=== PATIENT | male | born 1940 | race Caucasian/White ===

== ENCOUNTER 2022-12-12 10:30 | Outpatient (OUT) | payer MEDICARE, SELFPAY ==
[2022-12-12 11:02] LABS: Bilirubin Urine NEGATIVE (NEGATIVE); Blood Urine TRACE-I (NEGATIVE); Clarity Urine CLEAR (CLEAR); Color Urine LT. YELLOW (YELLOW); Glucose Urine UA NEGATIVE (NEGATIVE); Ketones Urine NEGATIVE (NEGATIVE); Leukocyte Esterase Urine NEGATIVE (NEGATIVE); Nitrite Urine NEGATIVE (NEGATIVE); Protein Urine NEGATIVE (NEG/TRACE); Specific Gravity Urine <=1.005 (1.005-1.025); Urobilinogen Urine 0.2 EU/dL (0.2-1.0); pH Urine 5.5 (5.0-9.0)
[2022-12-12 11:09] LABS: Bacteria Urine NONE SEEN #/HPF (NONE SEEN); Cast Seen? NONE SEEN #/LPF (NONE SEEN); Crystals Seen? None Seen #/HPF (None Seen); Mucus Urine NONE SEEN (NONE SEEN); RBC Urine 0-2 #/HPF (0-2); Squamous Epithelial Cell Urine NONE SEEN #/LPF (NONE/RARE); WBC Urine NONE SEEN #/HPF (NONE SEEN)
== END 2022-12-12 10:31 ==
LOC: LAB 10:34
PROVIDERS: PCP Family Medicine; Visit Provider Family Medicine
DX: N39.0 Urinary tract infection, site not specified (principal)
CPT/HCPCS: 81001; 87086

== ENCOUNTER 2023-02-17 12:58 | Outpatient (OUT) | payer MEDICARE, SELFPAY ==
[2023-02-17 13:47] LABS: Basophils Absolute Auto 0.1 10^3/uL (0.0-0.1); Basophils Percent Auto 0.5 % (0.2-2.0); Eosinophils Absolute Auto 0.1 10^3/uL (0.0-0.7); Eosinophils Percent Auto 1.2 % (0.9-7.0); Hematocrit 40.7 % (42.0-54.0); Hemoglobin 14.4 g/dL (14.0-18.0); Immature Granulocytes Abs Auto 0.06 10^3/uL (0.00-0.03); Immature Granulocytes Pct Auto 0.6 % (0.0-0.5); Lymphocytes Absolute Auto 1.6 10^3/uL (1.2-3.8); Mean Corpuscular HGB Conc 35.4 g/dL (29.9-35.2); Mean Corpuscular Hemoglobin 32.9 pg (25.9-34.0); Mean Corpuscular Volume 92.9 fL (80.0-94.0); Mean Platelet Volume 11.7 fL (9.5-13.5); Monocytes Absolute Auto 0.5 10^3/uL (0.3-0.8); Monocytes Percent Auto 4.6 % (1.7-12.0); Neutrophils Absolute Auto 7.6 10^3/uL (1.4-6.5); Neutrophils Percent Auto 77.1 % (43.0-75.0); Platelet Count 244 10^3/uL (150-450); Red Blood Count 4.38 10^6/uL (4.70-6.10); Red Cell Distribution Width 14.4 % (11.0-15.0); White Blood Count 9.9 10^3/uL (4.0-11.0)
[2023-02-17 13:50] LABS: Alanine Aminotransferase 41 U/L (16-63); Albumin Globulin Ratio 0.9; Albumin Level 3.5 g/dL (3.4-5.0); Alkaline Phosphatase 128 U/L (46-116); Anion Gap 12.4; Aspartate Amino Transferase 45 U/L (15-37); Bilirubin Total 0.6 mg/dL (0.2-1.0); Calcium 8.5 mg/dL (8.5-10.1); Carbon Dioxide 26.7 mmol/L (21.0-32.0); Chloride 99 mmol/L (98-107); Estimated GFR (African America >60 (>=60); Estimated GFR (Non-African Ame 58 (>=60); Globulin 3.7 g/dL; Glucose 208 mg/dL (74-106); Sodium 133 mmol/L (136-145); Total Protein 7.2 g/dL (6.4-8.2)
[2023-02-17 13:51] LABS: Potassium 5.1 mmol/L (3.5-5.1)
== END 2023-02-17 12:59 | disposition home or self-care (01) ==
LOC: LAB 13:00
PROVIDERS: PCP Family Medicine
DX: L40.50 Arthropathic psoriasis, unspecified (principal); Z79.631 Long term (current) use of antimetabolite agent
CPT/HCPCS: 36415; 80053; 85025

== ENCOUNTER 2023-02-28 11:45 | Observation (INO) | payer MEDICARE, OTHER, SELFPAY ==
[2023-02-28 11:52] VITALS: BP 166/87; PULSE 113; RESP 18; TEMP 36.9; O2SAT 99; BMI 38.0
--- NOTE | 2023-02-28 12:19 | ED.GENADUL1 ---
HPI - General Adult General Chief complaint: Back Pain/Injury Stated complaint: BACK PAIN/FELL & LANDED ON BACK MOWING LAWN Time Seen by Provider: 02/28/23 11:54 Source: patient Mode of arrival: walk-in Limitations: no limitations History of Present Illness HPI narrative: 82-year-old male to the emergency department with chief complaint of traumatic reports that he was on a riding lawnmower [place] the [employer] [place] on a [place] slope when he felt the lawnmower start to tip. He reports he tried to bale out but could not. He reports that he fell 5-6 feet with the lawnmower landing on top of him one or two times. He did not lose consciousness. He reports severe pain in his lumbar region. He denies any abdominal pain or extremity pain. Does not take blood thinners. He does take 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 and prednisone chronically for psoriatic arthritis. Related Data Home Medications Medication Instructions Recorded Confirmed amitriptyline 50 mg tablet 25 mg PO QDAY 02/28/23 02/28/23 aspirin 81 mg tablet,delayed 81 mg PO DAILY 02/28/23 02/28/23 release (Bobo Low Dose Aspirin) folic acid 1 mg tablet 1 mg PO DAILY 02/28/23 02/28/23 furosemide 20 mg tablet 20 mg PO DAILY 02/28/23 02/28/23 glimepiride 1 mg tablet 1 mg PO DAILY 02/28/23 02/28/23 irbesartan 300 1 tab PO DAILY 02/28/23 02/28/23 mg-hydrochlorothiazide 12.5 mg tablet 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 sodium 2.5 mg tablet 5 mg PO .weekly 02/28/23 02/28/23 pantoprazole 40 mg tablet,delayed 40 mg PO DAILY 02/28/23 02/28/23 release prednisone 2.5 mg tablet 5 mg PO BID 02/28/23 02/28/23 rosuvastatin 5 mg tablet (Crestor) 5 mg PO DAILY 02/28/23 02/28/23 Allergies Allergy/AdvReac Type Severity Reaction Status Date / Time PCN AdvReac Intermediate Uncoded 02/28/23 11:52 Review of Systems ROS Status of ROS 10 or more systems reviewed and unremarkable except as noted in history and below [facility] Medical History (Updated 02/28/23 @ 14:36 by Luisito Hammond MD) Social History Smoking status: Current every day smoker Exam Narrative Exam Narrative: Primary Survey Airway Intact Lung sounds clear and equal bilaterally Pulses full and equal to femoral, radial, and dorsalis pedis bilaterally Heart regular rate and rhythm Skin warm, dry, pink GCS 15 Movement and sensation intact to all extremities Patient Fully Exposed. Tenderness to lumbar region. Secondary Survey General: GCS 15; Alert HEENT: Head atraumatic; Facial bones stable; Eyes normal inspection, Pupils round, 4-2mm blt; No evidence of oropharyngeal trauma; No blood in the nares or septal hematoma; Tympanic Membranes intact, no hemotympanum or drainage Neck: Normal inspection; no midline c-spine tenderness; No tracheal deviation; No JVD Resp: Normal breath sounds, no wheeze or crackles; No chest wall tenderness, crepitus, or subcutaneous emphysema; No visible evidence of chest wall trauma; Chest rise symmetric; No respiratory distress Heart: Heart rate and rhythm regular; Carotid, radial, femoral, dorsalis pedis pulses +2 and equal bilaterally; No Murmurs Abdomen: Soft; Non-tender No ecchymosis or visible wounds to abdominal wall; No distention, guarding, rigidity, or rebound; Pelvis stable, no pain on compression MSK: All major joints with normal ROM. No deformities. No bony tenderness. There is tenderness without deformity to the lumbar spine; No ecchymosis or wounds to upper or lower back Neuro: Alert and oriented; Sensation intact and symmetric bilaterally; muscle strengths symmetric bilaterally in the upper and lower extremities. Skin: Color normal; No rash; Warm; Dry Constitutional Vital Signs, click to edit/add: Last Vital Signs Temp 98.5 F 02/28/23 11:52 Pulse 77 02/28/23 13:22 Resp 16 02/28/23 13:22 BP 146/77 H 02/28/23 13:22 Pulse Ox 98 02/28/23 13:22 O2 Del Method Room Air 02/28/23 11:52 Course Vital Signs Vital signs: Vital Signs Temperature 98.5 F 02/28/23 11:52 Pulse Rate 113 H 02/28/23 11:52 Respiratory Rate 18 02/28/23 11:52 Blood Pressure 166/87 H 02/28/23 11:52 Pulse Oximetry 99 02/28/23 11:52 Oxygen Delivery Method Room Air 02/28/23 11:52 Temperature 98.5 F 02/28/23 11:52 Pulse Rate 77 02/28/23 13:22 Respiratory Rate 16 02/28/23 13:22 Blood Pressure 146/77 H 02/28/23 13:22 Pulse Oximetry 98 02/28/23 13:22 Oxygen Delivery Method Room Air 02/28/23 11:52 Medical Decision Making MDM Narrative Medical decision making narrative: MDM Data External documents reviewed: Not applicable My EKG interpretation: Not applicable My CT interpretation: Reviewed as below My X-ray interpretation: Not applicable My Ultrasound interpretation: Not applicable Decision rules/scores evaluated: Not applicable Discussed with: Not applicable Treatment and Disposition ED Course: 82-year-old male to the emergency department with chief complaint of traumatic injury to his lumbar region. Vital stable, the patient is afebrile. Genetic injuries on exam documented as above. Given his advanced age, mechanism will proceed with full body CT imaging for rapid evaluation traumatic injuries with special attention to the thoracic and lumbar spine. Morphine and Zofran were given for symptoms. Patient is neurologically intact. CT head: Negative CT C-spine: Osteophyte fracture, not of clinical significance CT chest abdomen pelvis: No acute findings CT T-Spine: Negative CT L-Spine: L1 mild compression w/ non-displaced corner fracture Reviewed and noted. He has some renal insufficiency that appears to be at baseline. He has nonfasting hyperglycemia. Imaging results were reviewed with the on-call orthopedic surgeon Dr. Patrick. These are nonsurgical fractures. Can be managed on outpatient basis. Patient was severe pain limiting his ability to ambulate. He lives alone with his , they did not feel comfortable with him in his current condition going home. He'll be admitted for PT/OT evaluation and pain control. Tylenol and Toradol were added to his medication regimen. Case was discussed with Dr. Lozoya who agreed to admit to his service. Shared decision making: As above Code status: Not addressed during this visit Lab Data Labs: Lab Results 02/28/23 Range/Units 12:31 WBC 12.2 H (4.0-11.0) 10^3/uL RBC 4.36 L (4.70-6.10) 10^6/uL Hgb 14.0 (14.0-18.0) g/dL Hct 41.2 L (42.0-54.0) % MCV 94.5 H (80.0-94.0) fL MCH 32.1 (25.9-34.0) pg MCHC 34.0 (29.9-35.2) g/dL RDW 14.2 (11.0-15.0) % Plt Count 177 (150-450) 10^3/uL MPV 10.7 (9.5-13.5) fL Neut % (Auto) 86.2 H (43.0-75.0) % Lymph % (Auto) 7.3 L (20.5-60.0) % Letcher % (Auto) 3.8 (1.7-12.0) % Eos % (Auto) 0.1 L (0.9-7.0) % Baso % (Auto) 0.3 (0.2-2.0) % Neut # (Auto) 10.5 H (1.4-6.5) 10^3/uL Lymph # (Auto) 0.9 L (1.2-3.8) 10^3/uL Letcher # (Auto) 0.5 (0.3-0.8) 10^3/uL Eos # (Auto) 0.0 (0.0-0.7) 10^3/uL Baso # (Auto) 0.0 (0.0-0.1) 10^3/uL Abs Immat Gran (auto) 0.28 H (0.00-0.03) 10^3/uL Imm/Tot Granulo (auto) 2.3 H (0.0-0.5) % PT 10.4 (9.0-11.6) sec INR 0.98 APTT 24.2 (22.3-36.2) sec Sodium 132 L (136-145) mmol/L Potassium 3.8 (3.5-5.1) mmol/L Chloride 98 (98-107) mmol/L Carbon Dioxide 27.6 (21.0-32.0) mmol/L Anion Gap 10.2 BUN 19.0 H (7.0-18.0) mg/dL Creatinine 1.38 H (0.70-1.30) mg/dL Est GFR ( Amer) 60 (>=60) Est GFR (Non-Af Amer) 49 L (>=60) BUN/Creatinine Ratio 13.8 Glucose 182 H (74-106) mg/dL Calcium 9.5 (8.5-10.1) mg/dL Total Bilirubin 0.7 (0.2-1.0) mg/dL AST 28 (15-37) U/L ALT 44 (16-63) U/L Alkaline Phosphatase 98 (46-116) U/L Total Protein 7.2 (6.4-8.2) g/dL Albumin 3.8 (3.4-5.0) g/dL Globulin 3.4 g/dL Albumin/Globulin Ratio 1.1 Urine Color Yellow (YELLOW) Urine Clarity Clear (CLEAR) Urine pH 5.5 (5.0-9.0) Ur Specific Counselor 1.020 (1.005-1.025) Urine Protein Negative (NEG/TRACE) mg/dL Urine Glucose (UA) Negative (NEGATIVE) mg/dL Urine Ketones Negative (NEGATIVE) mg/dL Urine Occult Blood Trace-intact A (NEGATIVE) Urine Nitrite Negative (NEGATIVE) Urine Bilirubin Negative (NEGATIVE) Urine Urobilinogen N (0.2-1.0) EU/dL Ur Leukocyte Esterase Negative (NEGATIVE) Urine RBC 2-5 A (0-2) #/HPF Urine WBC None seen (NONE SEEN) #/HPF Ur Squamous Epith Cells Rare (NONE/RARE) #/LPF Urine Crystals None seen (None Seen) #/HPF Urine Bacteria None seen (NONE SEEN) #/HPF Urine Casts None seen (NONE SEEN) #/LPF Urine Mucus None seen (NONE SEEN) Ur Culture Indicated? No Discharge Plan Discharge Chief Complaint: Back Pain/Injury Clinical Impression: Ambulatory dysfunction, Intractable back pain, Closed compression fracture of lumbar vertebra Time of Disposition Decision: 14:25 Condition: Fair Prescriptions / Home Meds: No Action furosemide 20 mg tablet 20 mg PO DAILY irbesartan-hydrochlorothiazide 300-12.5 mg tablet 1 tab PO DAILY 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 sodium 2.5 mg tablet 5 mg PO .weekly pantoprazole 40 mg tablet,delayed release (DR/EC) 40 mg PO DAILY prednisone 2.5 mg tablet 5 mg PO BID amitriptyline 50 mg tablet 25 mg PO QDAY aspirin [Bobo Low Dose Aspirin] 81 mg tablet,delayed release (DR/EC) 81 mg PO DAILY rosuvastatin [Crestor] 5 mg tablet 5 mg PO DAILY folic acid 1 mg tablet 1 mg PO DAILY glimepiride 1 mg tablet 1 mg PO DAILY
[2023-02-28] MEDS: ONDANSETRON PF 4 MG/2 ML VIAL IV (12:24)
[2023-02-28] MEDS: MORPHINE SULFATE 4 MG/ML VIAL IV (12:24)
[2023-02-28 12:51] LABS: Basophils Percent Auto 0.3 % (0.2-2.0); Eosinophils Percent Auto 0.1 % (0.9-7.0); Hematocrit 41.2 % (42.0-54.0); Immature Granulocytes Abs Auto 0.28 10^3/uL (0.00-0.03); Immature Granulocytes Pct Auto 2.3 % (0.0-0.5); Lymphocytes Absolute Auto 0.9 10^3/uL (1.2-3.8); Lymphocytes Percent Auto 7.3 % (20.5-60.0); Mean Corpuscular Hemoglobin 32.1 pg (25.9-34.0); Mean Corpuscular Volume 94.5 fL (80.0-94.0); Mean Platelet Volume 10.7 fL (9.5-13.5); Monocytes Absolute Auto 0.5 10^3/uL (0.3-0.8); Monocytes Percent Auto 3.8 % (1.7-12.0); Neutrophils Absolute Auto 10.5 10^3/uL (1.4-6.5); Neutrophils Percent Auto 86.2 % (43.0-75.0); Platelet Count 177 10^3/uL (150-450); Red Blood Count 4.36 10^6/uL (4.70-6.10); Red Cell Distribution Width 14.2 % (11.0-15.0); White Blood Count 12.2 10^3/uL (4.0-11.0)
[2023-02-28 13:00] LABS: Alanine Aminotransferase 44 U/L (16-63); Albumin Globulin Ratio 1.1; Albumin Level 3.8 g/dL (3.4-5.0); Alkaline Phosphatase 98 U/L (46-116); Anion Gap 10.2; Aspartate Amino Transferase 28 U/L (15-37); BUN Creatinine Ratio 13.8; Bilirubin Total 0.7 mg/dL (0.2-1.0); Calcium 9.5 mg/dL (8.5-10.1); Carbon Dioxide 27.6 mmol/L (21.0-32.0); Chloride 98 mmol/L (98-107); Estimated GFR (African America 60 (>=60); Estimated GFR (Non-African Ame 49 (>=60); Globulin 3.4 g/dL; Glucose 182 mg/dL (74-106); INR 0.98; Partial Thromboplastin Time 24.2 sec (22.3-36.2); Potassium 3.8 mmol/L (3.5-5.1); Prothrombin Time 10.4 sec (9.0-11.6); Sodium 132 mmol/L (136-145); Total Protein 7.2 g/dL (6.4-8.2)
--- NOTE | 2023-02-28 13:03 | CT_ITS ---
The [address] [address] Patient Name: JULIO OLIVAREZ MRN: [id number] date: 1940 Sex: M Assigned Patient Location: ER Current Patient Location: ER Accession/Order Number: [id number] Exam Date: 02/28/2023 12:31 Report Date: 02/28/2023 13:12 At the request of: ANDERSON PADILLA Procedure: CT head/brain wo con EXAMINATION: CT head/brain wo con HISTORY: trauma ; lawnmower rolled over on top of patient COMPARISON: No relevant comparison available. TECHNIQUE: Axial CT images were obtained without IV contrast. Dose reduction techniques were achieved by using automated exposure control and/or adjustment of mA and/or kV according to patient size and/or use of iterative reconstruction technique. FINDINGS: BRAIN: No edema, hemorrhage, mass, acute infarction, or inappropriate atrophy. CSF SPACES: No hydrocephalus, subarachnoid hemorrhage, or mass. Appropriate for age. SKULL: No fracture, mass, or other significant visible lesion. SINUSES: No significant mucosal thickening or fluid on the limited views. ORBITS: No appreciable abnormality on the limited views. OTHER: Negative CT/CT head/brain wo con IMPRESSION: 1. No acute intracranial hemorrhage or appreciable acute abnormality. Age consistent chronic changes. 2. No fracture of the calvarium or scalp hematoma. Electronically authenticated by: CARYN URENA Date: 02/28/2023 13:12
--- NOTE | 2023-02-28 13:03 | CT_ITS ---
The [address] [address] Patient Name: JULIO OLIVAREZ MRN: [id number] date: 1940 Sex: M Assigned Patient Location: ER Current Patient Location: ER Accession/Order Number: [id number] Exam Date: 02/28/2023 12:31 Report Date: 02/28/2023 13:17 At the request of: ANDERSON PADILLA Procedure: CT cervical spine wo con EXAMINATION: CT cervical spine wo con HISTORY: trauma COMPARISON: No relevant comparison available. TECHNIQUE: Axial, Coronal, and Sagittal images were created without IV contrast. Dose reduction techniques were achieved by using automated exposure control and/or adjustment of mA and/or kV according to patient size and/or use of iterative reconstruction technique. FINDINGS: VERTEBRAL BODIES: Nondisplaced fracture involving a degenerative enthesophyte projecting cephalad from the anterior arch of C1. No fracture involving the ring of C1, the dens of C2, or any of the remaining cervical vertebral bodies. No facet joint disruption or abnormal widening. Multilevel mild degenerative facet arthropathy and uncovertebral joint spurring.. FACET JOINTS: No disruption or abnormal widening. DISCS: Multilevel moderate marked degenerative disc disease resulting in central canal and foraminal stenosis. CENTRAL CANAL: No evidence of hemorrhage. PARASPINAL AREA: No visible mass. CT/CT cervical spine wo con IMPRESSION: 1. Suspect acute fracture of the degenerative osteophyte which projects cephalad from the anterior arch of C1 adjacent the dens of C2, which may be symptomatic, but of doubtful clinical significance. 2. Multilevel moderate-marked degenerative disc disease and mild degenerative facet arthropathy. Electronically authenticated by: CARYN URENA Date: 02/28/2023 13:17
--- NOTE | 2023-02-28 13:03 | CT_ITS ---
[address] [address] Patient Name: JULIO OLIVAREZ MRN: [id number] date: 1940 Sex: M Assigned Patient Location: ER Current Patient Location: Accession/Order Number: [id number] Exam Date: 02/28/2023 12:31 Report Date: 02/28/2023 13:28 At the request of: ANDERSON PADILLA Procedure: CT abdomen pelvis w con EXAMINATION: CT abdomen pelvis w con, CT lumbar spine wo con HISTORY: trauma COMPARISON: No relevant comparison available. TECHNIQUE: Axial, Coronal, and Sagittal images were obtained without and/or with IV contrast as indicated by examination type. Dose reduction techniques were achieved by using automated exposure control and/or adjustment of mA and/or kV according to patient size and/or use of iterative reconstruction technique. FINDINGS: LUNG BASES: No visible pulmonary or pleural disease. LIVER: No enlargement, atrophy, suspicious density, or significant focal lesion. BILIARY: No dilatation or calcification. PANCREAS: No lesion, fluid collection, or abnormal duct dilatation. SPLEEN: No enlargement or focal lesion. ADRENALS: No mass or enlargement. KIDNEYS: No mass, obstruction, or calcification. BOWEL/MESENTERY: No visible mass, obstruction, or bowel wall thickening. AORTA/VASCULAR: Moderate atherosclerotic disease. No aneurysm or dissection. RETROPERITONEUM: No mass or adenopathy. LYMPH NODES: No adenopathy. URINARY BLADDER: No visible focal wall thickening, lesion, or calculus. PELVIC ORGANS: Prominent and slightly heterogeneous prostate. ABDOMINAL WALL: Small fat filled inguinal hernias bilaterally without strangulation. BONES: Mild compression fracture involving superior endplate of L1 and nondisplaced anterior superior corner fracture of L1. OTHER: Negative. CT/CT abdomen pelvis w con IMPRESSION: 1. Age-indeterminate, but suspected to be acute mild compression fracture and nondisplaced anterior superior corner fracture of L1 vertebral body. 2.Multilevel moderate degenerative disc disease of lumbar spine. 3.No acute solid or hollow organ injury of the abdomen or pelvis. Electronically authenticated by: CARYN URENA Date: 02/28/2023 13:28
--- NOTE | 2023-02-28 13:03 | CT_ITS ---
[address] [address] Patient Name: JULIO OLIVAREZ MRN: [id number] date: 1940 Sex: M Assigned Patient Location: ER Current Patient Location: ER Accession/Order Number: [id number] Exam Date: 02/28/2023 12:31 Report Date: 02/28/2023 13:32 At the request of: ANDERSON PADILLA Procedure: CT thoracic spine wo con EXAMINATION: CT chest w con, CT thoracic spine wo con HISTORY: trauma COMPARISON: No relevant comparison available. TECHNIQUE: Multi-planar CT images were obtained without and/or with IV contrast as indicated by examination type. Axial, Coronal, and Sagittal images. Dose reduction techniques were achieved by using automated exposure control and/or adjustment of mA and/or kV according to patient size and/or use of iterative reconstruction technique. FINDINGS: LUNGS: No visible pulmonary disease. PLEURA: No mass, effusion, or pneumothorax. VASCULATURE: No abnormality. SE: No mass or adenopathy. MEDIASTINUM: No mass or adenopathy. CARDIAC: No enlargement, pericardial thickening, or significant calcification. AORTA: No aneurysm or dissection. CHEST WALL: Heterogeneous 12 mm nodule within right thyroid lobe; consider nonemergent ultrasound follow-up. No axillary mass or lymphadenopathy. BONES: Mild compression fracture lines. Plate of L1 and the anterior superior corner of L1. LIMITED ABDOMEN: No suspicious findings Limited images of the upper abdomen. OTHER: Negative. CT/CT thoracic spine wo con IMPRESSION: 1. No acute solid or hollow organ injury of the chest. 2. L1 mild compression fracture and nondisplaced anterior superior corner fracture of L1, suspected to be acute. Electronically authenticated by: CARYN URENA Date: 02/28/2023 13:32
--- NOTE | 2023-02-28 13:03 | CT_ITS ---
[address] [address] Patient Name: JULIO OLIVAREZ MRN: [id number] date: 1940 Sex: M Assigned Patient Location: ER Current Patient Location: Accession/Order Number: [id number] Exam Date: 02/28/2023 12:31 Report Date: 02/28/2023 13:28 At the request of: ANDERSON PADILLA Procedure: CT lumbar spine wo con EXAMINATION: CT abdomen pelvis w con, CT lumbar spine wo con HISTORY: trauma COMPARISON: No relevant comparison available. TECHNIQUE: Axial, Coronal, and Sagittal images were obtained without and/or with IV contrast as indicated by examination type. Dose reduction techniques were achieved by using automated exposure control and/or adjustment of mA and/or kV according to patient size and/or use of iterative reconstruction technique. FINDINGS: LUNG BASES: No visible pulmonary or pleural disease. LIVER: No enlargement, atrophy, suspicious density, or significant focal lesion. BILIARY: No dilatation or calcification. PANCREAS: No lesion, fluid collection, or abnormal duct dilatation. SPLEEN: No enlargement or focal lesion. ADRENALS: No mass or enlargement. KIDNEYS: No mass, obstruction, or calcification. BOWEL/MESENTERY: No visible mass, obstruction, or bowel wall thickening. AORTA/VASCULAR: Moderate atherosclerotic disease. No aneurysm or dissection. RETROPERITONEUM: No mass or adenopathy. LYMPH NODES: No adenopathy. URINARY BLADDER: No visible focal wall thickening, lesion, or calculus. PELVIC ORGANS: Prominent and slightly heterogeneous prostate. ABDOMINAL WALL: Small fat filled inguinal hernias bilaterally without strangulation. BONES: Mild compression fracture involving superior endplate of L1 and nondisplaced anterior superior corner fracture of L1. OTHER: Negative. CT/CT lumbar spine wo con IMPRESSION: 1. Age-indeterminate, but suspected to be acute mild compression fracture and nondisplaced anterior superior corner fracture of L1 vertebral body. 2.Multilevel moderate degenerative disc disease of lumbar spine. 3.No acute solid or hollow organ injury of the abdomen or pelvis. Electronically authenticated by: CARYN URENA Date: 02/28/2023 13:28
--- NOTE | 2023-02-28 13:03 | CT_ITS ---
The [address] [address] Patient Name: JULIO OLIVAREZ MRN: [id number] date: 1940 Sex: M Assigned Patient Location: ER Current Patient Location: ER Accession/Order Number: [id number] Exam Date: 02/28/2023 12:31 Report Date: 02/28/2023 13:32 At the request of: ANDERSON PADILLA Procedure: CT chest w con EXAMINATION: CT chest w con, CT thoracic spine wo con HISTORY: trauma COMPARISON: No relevant comparison available. TECHNIQUE: Multi-planar CT images were obtained without and/or with IV contrast as indicated by examination type. Axial, Coronal, and Sagittal images. Dose reduction techniques were achieved by using automated exposure control and/or adjustment of mA and/or kV according to patient size and/or use of iterative reconstruction technique. FINDINGS: LUNGS: No visible pulmonary disease. PLEURA: No mass, effusion, or pneumothorax. VASCULATURE: No abnormality. SE: No mass or adenopathy. MEDIASTINUM: No mass or adenopathy. CARDIAC: No enlargement, pericardial thickening, or significant calcification. AORTA: No aneurysm or dissection. CHEST WALL: Heterogeneous 12 mm nodule within right thyroid lobe; consider nonemergent ultrasound follow-up. No axillary mass or lymphadenopathy. BONES: Mild compression fracture lines. Plate of L1 and the anterior superior corner of L1. LIMITED ABDOMEN: No suspicious findings Limited images of the upper abdomen. OTHER: Negative. CT/CT chest w con IMPRESSION: 1. No acute solid or hollow organ injury of the chest. 2. L1 mild compression fracture and nondisplaced anterior superior corner fracture of L1, suspected to be acute. Electronically authenticated by: CARYN URENA Date: 02/28/2023 13:32
[2023-02-28 13:07] LABS: Color Urine YELLOW (YELLOW)
[2023-02-28 13:08] LABS: Bacteria Urine NONE SEEN #/HPF (NONE SEEN); Bilirubin Urine NEGATIVE (NEGATIVE); Blood Urine TRACE-INTACT (NEGATIVE); Cast Seen? NONE SEEN #/LPF (NONE SEEN); Clarity Urine CLEAR (CLEAR); Crystals Seen? None Seen #/HPF (None Seen); Glucose Urine UA NEGATIVE (NEGATIVE); Ketones Urine NEGATIVE (NEGATIVE); Leukocyte Esterase Urine NEGATIVE (NEGATIVE); Mucus Urine NONE SEEN (NONE SEEN); Nitrite Urine NEGATIVE (NEGATIVE); Protein Urine NEGATIVE (NEG/TRACE); Squamous Epithelial Cell Urine RARE #/LPF (NONE/RARE); Urine Culture Indicated NO; Urine Microscopic Indicated YES; Urobilinogen Urine N EU/dL (0.2-1.0); WBC Urine NONE SEEN #/HPF (NONE SEEN); pH Urine 5.5 (5.0-9.0)
[2023-02-28 13:22] VITALS: BP 146/77; PULSE 77; RESP 16; O2SAT 98
--- NOTE | 2023-02-28 14:01 | PC.NURSE ---
Pt's PCP office called to have pt's home meds sent to ER d/t pt is a poor historian and does not have a list of home meds
[2023-02-28 14:46] VITALS: BP 133/81
[2023-02-28] MEDS: KETOROLAC TROMETHAMINE 30 MG/ML VIAL 15 MG IVP (14:46)
[2023-02-28] MEDS: ACETAMINOPHEN 325 MG TABLET 650 MG PO (14:51)
[2023-02-28 15:26] VITALS: BP 154/84; PULSE 92; RESP 18; TEMP 36.7; O2SAT 96; BMI 35.4
[2023-02-28 16:02] LABS: Glucometer 134 mg/dL (74-106)
[2023-02-28 21:06] LABS: Glucometer 111 mg/dL (74-106)
[2023-02-28] MEDS: KETOROLAC TROMETHAMINE 30 MG/ML VIAL IVP (21:07)
[2023-02-28 21:14] VITALS: BP 153/88; PULSE 85; RESP 16; TEMP 36.9; O2SAT 95
[2023-02-28] MEDS: AMITRIPTYLINE HCL 25 MG TABLET PO (22:04)
[2023-03-01] MEDS: KETOROLAC TROMETHAMINE 30 MG/ML VIAL IVP ×3 (02:44→15:19)
[2023-03-01 04:50] LABS: Anion Gap 11.1; BUN Creatinine Ratio 15.6; Calcium 8.8 mg/dL (8.5-10.1); Carbon Dioxide 26.7 mmol/L (21.0-32.0); Chloride 101 mmol/L (98-107); Estimated GFR (African America >60 (>=60); Estimated GFR (Non-African Ame 54 (>=60); Glucose 101 mg/dL (74-106); Potassium 3.8 mmol/L (3.5-5.1); Sodium 135 mmol/L (136-145)
[2023-03-01] MEDS: OMEPRAZOLE 40 MG CAPSULE.DR PO (05:32)
[2023-03-01] MEDS: TRAMADOL HCL 50 MG TABLET PO (05:38)
[2023-03-01 05:53] VITALS: BP 142/82; PULSE 82; RESP 18; TEMP 36.7; O2SAT 92
--- NOTE | 2023-03-01 07:45 | PM.HP ---
H&P: HPI History of Present Illness Chief complaint: BACK PAIN/FELL & LANDED ON BACK MOWING LAWN Narrative: Patient was mowing 1 steep slope, try 1 more lab around and this slope with steeper started to feel the tractor tipped patient jumped off, landed on his back, lumbar landed on him at least once, patient had severe pain and presented to the emergency room. ER evaluation showed no soft tissue injuries on CT scan, noted head injury on CT scan, did show lumbar compression fracture, patient unable to ambulate was admitted overnight for pain control. Review of Systems ROS Status of ROS 10 or more systems reviewed and unremarkable except as noted in history and below [facility] Medical History (Updated 03/01/23 @ 07:49 by Roman David MD) Family History (Updated 02/28/23 @ 15:37 by Bri Urbina LPN) Father Family history of CHF (congestive heart failure) Family history of cancer Family history of hypertension Family history of myocardial infarction Mother Family history of hypertension Social History (Updated 02/28/23 @ 15:38 by Bri Urbina LPN) Smoking status: Former smoker Second hand tobacco smoke exposure: No Non-prescribed substance use: denies use Previous occupational history: retired Known occupational exposures/hazards: No Highest level of school completed/degree received: high school graduate Do you want help with school or training: No Are you now , , , , never or living with a partner: In a typical week, how many times do you talk on the telephone with family, friends, or neighbors: twice per week How often do you get together with friends or relatives: once per week How often do you attend samaritan or orthodox services: 4 or more times per year Do you belong to any clubs or organizations such as samaritan groups unions, fraternal or athletic groups, or school groups: yes Total score: 4 Score interpretation: A score of greater than or equal to 2 indicates the lowest level of social isolation. Little interest or pleasure in doing things: not at all Feeling down, depressed, or hopeless: not at all Feel stressed/tense/nervous/anxious/difficulty sleeping: not at all Due to disability, difficulty making decisions: No Do you think of yourself as: straight/heterosexual Gender Identity: male Meds Home Medications and Allergies Home Medications Medication Instructions Recorded Confirmed Type amitriptyline 50 mg tablet 25 mg PO BEDTIME 02/28/23 02/28/23 History aspirin 81 mg tablet,delayed 81 mg PO DAILY 02/28/23 02/28/23 History release (Bobo Low Dose Aspirin) folic acid 1 mg tablet 1 mg PO DAILY 02/28/23 02/28/23 History furosemide 20 mg tablet 10 mg PO PRN edema 02/28/23 History glimepiride 4 mg tablet (Amaryl) 2 mg PO DAILY 02/28/23 02/28/23 History irbesartan 300 1 tab PO DAILY 02/28/23 02/28/23 History mg-hydrochlorothiazide 12.5 mg tablet melatonin 5 mg tablet 5 mg PO DAILY 02/28/23 02/28/23 History 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 sodium 2.5 mg tablet 12.5 mg PO .weekly 02/28/23 02/28/23 History pantoprazole 40 mg tablet,delayed 40 mg PO DAILY 02/28/23 02/28/23 History release prednisone 2.5 mg tablet 5 mg PO QAM 02/28/23 02/28/23 History diclofenac sodium 75 mg 75 mg PO BID PRN low back pain #20 03/01/23 Rx tablet,delayed release tabs tizanidine 4 mg capsule 4 mg PO .qhs PRN muscle spasticity 03/01/23 Rx 10 days #10 caps Allergies Allergy/AdvReac Type Severity Reaction Status Date / Time PCN AdvReac Intermediate Uncoded 02/28/23 11:52 Exam Constitutional Vital Signs, click to edit/add: Last Vital Signs Temp 98.1 F 03/01/23 05:53 Pulse 82 03/01/23 05:53 Resp 18 03/01/23 05:53 BP 142/82 H 03/01/23 05:53 Pulse Ox 92 L 03/01/23 05:53 O2 Del Method Room Air 03/01/23 05:53 Documenting provider has reviewed patient's vital signs: yes Common normals: no apparent distress Neck & C-Spine Common normals: full ROM Chest Common normals: inspection of chest normal Respiratory Common normals: normal respiratory effort Cardio Common normals: regular rate, regular rhythm and no murmurs GI Common normals: Normal to inspection, nondistended, normoactive bowel sounds present, soft to palpation and non-tender Extremity Common normals: normal to inspection and full ROM Neuro Common normals: CN's II-XII intact bilaterally and moves all extremities Results Labs Labs: Short CBC 02/28/23 Range/Units 12:31 WBC 12.2 H (4.0-11.0) 10^3/uL Hgb 14.0 (14.0-18.0) g/dL Hct 41.2 L (42.0-54.0) % Plt Count 177 (150-450) 10^3/uL BMP 02/28/23 03/01/23 12:31 04:12 Sodium 132 L 135 L Potassium 3.8 3.8 Chloride 98 101 Carbon Dioxide 27.6 26.7 BUN 19.0 H 20.0 H Creatinine 1.38 H 1.28 Glucose 182 H 101 Calcium 9.5 8.8 Liver Function 02/28/23 Range/Units 12:31 Total Bilirubin 0.7 (0.2-1.0) mg/dL AST 28 (15-37) U/L ALT 44 (16-63) U/L Alkaline Phosphatase 98 (46-116) U/L Albumin 3.8 (3.4-5.0) g/dL Urine 02/28/23 Range/Units 12:31 Urine Color Yellow (YELLOW) Urine Clarity Clear (CLEAR) Urine pH 5.5 (5.0-9.0) Ur Specific [place] 1.020 (1.005-1.025) Urine Protein Negative (NEG/TRACE) mg/dL Urine Glucose (UA) Negative (NEGATIVE) mg/dL Assessment and Plan Assessment and Plan (1) Ambulatory dysfunction: Onset Date: 02/28/23 Assessment and Plan: Patient unable to ambulate after lumbar fell on top of him resulting in lumbar compression fracture, patient feels pain in back is somewhat better today but has not been up ambulating yet, if ambulating safely with physical therapy later today can be discharged home in improving condition. Medications see list. Follow-up with me as needed. We will repeat the x-ray in 10 days. (2) Intractable back pain: Assessment and Plan: See above (3) Closed compression fracture of lumbar vertebra: Assessment and Plan: See above (4) Diabetes: Assessment and Plan: Continue with home medication sugar slightly elevated here in admission, will monitor as an outpatient (5) Hypertension: Assessment and Plan: Blood pressure somewhat elevated on admission but improving. Will monitor as an outpatient continue with current medications Plan Discharged home later today if ambulating safely
[2023-03-01 08:12] VITALS: BP 136/74
[2023-03-01] MEDS: HYDROCHLOROTHIAZIDE 25 MG TABLET 12.5 MG PO (08:12)
[2023-03-01 08:13] VITALS: BP 136/74
[2023-03-01] MEDS: GLIMEPIRIDE 2 MG TABLET PO (08:13)
[2023-03-01] MEDS: FOLIC ACID 1 MG TABLET PO (08:13)
[2023-03-01] MEDS: PREDNISONE 5 MG TABLET PO (08:13)
[2023-03-01] MEDS: ASPIRIN 81 MG TABLET.DR PO (08:13)
[2023-03-01] MEDS: LOSARTAN POTASSIUM 50 MG TABLET 100 MG PO (08:13)
--- NOTE | 2023-03-01 09:53 | REH.PTDLY ---
Physical Therapy Daily Note PT Daily Note/Assess Start: 03/01/23 09:48 Freq: Status: Active Protocol: Document 03/01/23 09:48 ZULEIMA (Rec: 03/01/23 09:53 ZULEIMA [id number]) Physical Therapy Daily Note/Assessment Time In 09:20 Time Out 09:40 Pain Level 0 Pain Level 0 Subjective No pain at rest in supine, but increased pain with movement. Pt states it gets up to a 6 or 7 when he moves. Therapeutic Exercise Minutes (minutes) 7 Therapeutic Exercise Units 0 Therapeutic Exercise Treatment instructed in seated LAQ and marching 10x ea. In supine instructed in B LE SLR, heel slides, QS, AP, and GS. Pt denies any increase in pain with these exs when performing . Therapeutic Activity Minutes (minutes) 10 Therapeutic Activity Units 1 Bed Mobility Ability Standby Assistance Chair Transfer Ability Standby Assistance Therapeutic Activity Comments Pt able to perform all transfers SBA. Pt uses bed rail with log rolling to sit up or return to supine. Increase in pain when trying to adjust himself once supine when bridging to move body. Does well with sit to stand transfers performing 3x in a row, some increase in tightness across LB. Gait training with RW SBA 30 feet with pt stopping occasionally and standing in place. When up and moving pt rates pain as a 6/10. Total Therapy Minutes 17 Total Physical Therapy Units 1 Daily Note Summary Pt able to transfer SBA using bed rails. Does well when standing and with gait, but only able to go short distances as pain increases and he feels a little 'woozy'. Pt does well this morning, but just had pain meds about 30 mins prior to rx. Pt feels as though without the pain meds he would not do as well.
--- NOTE | 2023-03-01 10:55 | CM.NOTE ---
Medicare Outpatient Observation notice discussed with pt, pt verbalizes understanding and signs form. Original given to pt and copy placed on pt's chart.
[2023-03-01 11:28] LABS: Glucometer 148 mg/dL (74-106)
--- NOTE | 2023-03-01 12:09 | SWNOTE1 ---
STEVE spoke with case management and pt does need Home health and does not have a preference. STEVE sent referral to [address] Pt is also in need of walker, no preference on from where. STEVE sent referral to [facility].
--- NOTE | 2023-03-01 12:46 | SWNOTE1 ---
[facility] is able to accept for home health. [facility] is on back order for walkers, they may not get any until Monday or Monday, SW to let pt know.
--- NOTE | 2023-03-01 14:10 | SWNOTE1 ---
STEVE spoke with pt and in room to let them know [place] [facility] is on back order and SW submitted information to [facility] in [place]. SW is waiting to hear back, they have received referral and running it through medicare. Pt and going to wait and make sure walker is approved prior to leaving. SW let pt and know.
[2023-03-01 14:20] VITALS: BP 144/81; PULSE 92; RESP 18; TEMP 36.7; O2SAT 93
--- NOTE | 2023-03-01 14:29 | SWNOTE1 ---
SW received call from nursing and pt's just left to go buy a walker so they can be discharged home. STEVE sent discharged orders to [address]
--- NOTE | 2023-03-02 12:13 | CM.DCFOLLOWU ---
Person spoke with: patient How are you feeling? better now came to ER last night to get different meds How is your pain? under control at the time Did you understand your discharge instructions? yes Do you have any questions about your discharge instructions? patient was not sure why he was discharged on different meds (pain meds) than he was taking during his hospital stay Were you given any prescriptions at discharge? yes Were you able to get your prescriptions filled? yes Do you understand how to take your medications as ordered? yes Do you have any questions about your follow up appointment and do you plan to keep your follow up appointment? patient will be calling Dr. David's office today to schedule follow up Is there anything else that you would like to discuss? No patient's only question was in regards to the meds and why he was discharged on something different than he was taking at hospital, he will address with Dr. David. Patient did come to ER last night and was able to get prescription for medication he was on during his stay. Questions/Comments/Concerns/Other:
== END 2023-03-01 15:47 | disposition home health service (06) ==
LOC: ER 11:54 → MS 14:35
PROVIDERS: Family Medicine; Admitting Provider Family Medicine; Emergency Provider Student in an Organized Health Care Education/Training Program; PCP Family Medicine; Visit Provider Family Medicine
DX: S32.010A Wedge compression fracture of first lumbar vertebra, initial encounter for closed fracture (principal); E11.9 Type 2 diabetes mellitus without complications; I10 Essential (primary) hypertension; R26.2 Difficulty in walking, not elsewhere classified; M54.9 Dorsalgia, unspecified; W19.XXXA Unspecified fall, initial encounter; Z79.899 Other long term (current) drug therapy; Z79.82 Long term (current) use of aspirin; Z79.52 Long term (current) use of systemic steroids; Z87.891 Personal history of nicotine dependence
CPT/HCPCS: 36415; 70450; 71260; 72125; 72128; 72131; 74177; 80048; 80053; 81001; 82948; 85025; 85610; 85730; 86140; 96374; 96375; 96376; 97161; 97165; 97530; 99284; 99285; G0378; J2930; Q9967

== ENCOUNTER 2023-03-01 21:22 | Emergency (ER) | payer MEDICARE, SELFPAY ==
[2023-03-01 21:41] VITALS: BP 154/93; PULSE 105; RESP 18; TEMP 36.7; O2SAT 95; BMI 35.7
--- NOTE | 2023-03-01 22:14 | PC.NURSE ---
patient states he was recently diagnosed with lumbar fracture, was admitted at this hospital and and just discharged today. states when he was in the hospital he was receiving pain meds every 6 hours and then was discharged with only 1 muscle relaxer and voltaren. states his pain is now unbearable, has not taken muscle relaxer yet because he was supposed to take it at bedtime.
--- NOTE | 2023-03-01 22:26 | ED_ITS ---
HPI - Back Pain/Injury General Chief Complaint: Back Pain/Injury Stated Complaint: BACK PAIN Time Seen by Provider: 03/01/23 21:48 Source: patient Mode of arrival: walk-in History of Present Illness HPI Narrative: fell a couple of days. jumped off of his mower as it was tipping over. Fell directly onto his back. Admitted yesterday for mild compression fracture L1. States pain control was ok in the hospital. Discharged home today. Now returns complaining of constipation and back pain. No leg pain or weakness. States he was discharged home on a muscle relaxant and voltaren and it is now controlling the pain MD elicited complaint: Reports back pain, back injury and fall Pertinent past history: Reports recent trauma Related Data Home Medications Medication Instructions Recorded Confirmed amitriptyline 50 mg tablet 25 mg PO BEDTIME 02/28/23 02/28/23 aspirin 81 mg tablet,delayed 81 mg PO DAILY 02/28/23 02/28/23 release (Bobo Low Dose Aspirin) folic acid 1 mg tablet 1 mg PO DAILY 02/28/23 02/28/23 furosemide 20 mg tablet 10 mg PO PRN edema 02/28/23 glimepiride 4 mg tablet (Amaryl) 2 mg PO DAILY 02/28/23 02/28/23 irbesartan 300 1 tab PO DAILY 02/28/23 02/28/23 mg-hydrochlorothiazide 12.5 mg tablet melatonin 5 mg tablet 5 mg PO DAILY 02/28/23 02/28/23 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 sodium 2.5 mg tablet 12.5 mg PO .weekly 02/28/23 02/28/23 pantoprazole 40 mg tablet,delayed 40 mg PO DAILY 02/28/23 02/28/23 release prednisone 2.5 mg tablet 5 mg PO QAM 02/28/23 02/28/23 Previous Rx's Medication Instructions Recorded diclofenac sodium 75 mg 75 mg PO BID PRN low back pain #20 03/01/23 tablet,delayed release tabs tizanidine 4 mg capsule 4 mg PO .qhs PRN muscle spasticity 03/01/23 10 days #10 caps Allergies Allergy/AdvReac Type Severity Reaction Status Date / Time PCN AdvReac Intermediate Uncoded 03/01/23 21:47 Review of Systems ROS Status of ROS 10 or more systems reviewed and unremarkable except as noted in history and below [facility] Medical History Family History (Updated 02/28/23 @ 15:37 by Bri Urbina LPN) Father Family history of CHF (congestive heart failure) Family history of cancer Family history of hypertension Family history of myocardial infarction Mother Family history of hypertension Social History (Updated 02/28/23 @ 15:38 by Bri Urbina LPN) Smoking status: Former smoker Second hand tobacco smoke exposure: No Non-prescribed substance use: denies use Previous occupational history: retired Known occupational exposures/hazards: No Highest level of school completed/degree received: high school graduate Do you want help with school or training: No Are you now , , , , never or living with a partner: In a typical week, how many times do you talk on the telephone with family, friends, or neighbors: twice per week How often do you get together with friends or relatives: once per week How often do you attend tenriism or adventist services: 4 or more times per year Do you belong to any clubs or organizations such as tenriism groups unions, [employer] or athletic groups, or school groups: yes Total score: 4 Score interpretation: A score of greater than or equal to 2 indicates the lowest level of social isolation. Little interest or pleasure in doing things: not at all Feeling down, depressed, or hopeless: not at all Feel stressed/tense/nervous/anxious/difficulty sleeping: not at all Due to disability, difficulty making decisions: No Do you think of yourself as: straight/heterosexual Gender Identity: male Exam Constitutional Vital Signs, click to edit/add: Last Vital Signs Temp 98.0 F 03/01/23 21:41 Pulse 105 H 03/01/23 21:41 Resp 18 03/01/23 21:41 BP 154/93 H 03/01/23 21:41 Pulse Ox 95 03/01/23 21:41 O2 Del Method Room Air 03/01/23 21:41 Common normals: no apparent distress, average body habitus, oriented x3, no limitations and healthy appearing Eye Common normals: EOMs intact bilaterally, conjunctivae normal and no scleral icterus Respiratory Common normals: normal respiratory effort, no retractions, no use of accessory muscles and clear to auscultation bilaterally GI Common normals: Normal to inspection, nondistended, normoactive bowel sounds present, soft to palpation and non-tender Back & Pelvis Other: tenderness of L-spine fabio L1 Extremity Common normals: normal to inspection and full ROM Neuro Common normals: oriented x3, CN's II-XII intact bilaterally, moves all extremities, no focal motor deficits and no sensory deficits noted Psych Appearance: grossly normal Course Vital Signs Vital signs: Vital Signs Temperature 98.0 F 03/01/23 21:41 Pulse Rate 105 H 03/01/23 21:41 Respiratory Rate 18 03/01/23 21:41 Blood Pressure 154/93 H 03/01/23 21:41 Pulse Oximetry 95 03/01/23 21:41 Oxygen Delivery Method Room Air 03/01/23 21:41 Temperature 98.0 F 03/01/23 21:41 Pulse Rate 105 H 03/01/23 21:41 Respiratory Rate 18 03/01/23 21:41 Blood Pressure 154/93 H 03/01/23 21:41 Pulse Oximetry 95 03/01/23 21:41 Oxygen Delivery Method Room Air 03/01/23 21:41 MDM - Back Pain/Injury MDM Narrative Medical decision making narrative: patient presents with pain related to mild compression fracture of L1. no neuro deficits. Treated in the department to the point the pain was tolerable . Discharged home with a prescription of Tramadol and is to follow up with his doctor Lab Data Labs: Lab Results 03/01/23 Range/Units 22:57 WBC 11.2 H (4.0-11.0) 10^3/uL RBC 4.66 L (4.70-6.10) 10^6/uL Hgb 14.9 (14.0-18.0) g/dL Hct 43.9 (42.0-54.0) % MCV 94.2 H (80.0-94.0) fL MCH 32.0 (25.9-34.0) pg MCHC 33.9 (29.9-35.2) g/dL RDW 14.0 (11.0-15.0) % Plt Count 184 (150-450) 10^3/uL MPV 10.6 (9.5-13.5) fL Neut % (Auto) 77.3 H (43.0-75.0) % Lymph % (Auto) 13.5 L (20.5-60.0) % [place] % (Auto) 6.2 (1.7-12.0) % Eos % (Auto) 2.0 (0.9-7.0) % Baso % (Auto) 0.4 (0.2-2.0) % Neut # (Auto) 8.7 H (1.4-6.5) 10^3/uL Lymph # (Auto) 1.5 (1.2-3.8) 10^3/uL [place] # (Auto) 0.7 (0.3-0.8) 10^3/uL Eos # (Auto) 0.2 (0.0-0.7) 10^3/uL Baso # (Auto) 0.1 (0.0-0.1) 10^3/uL Abs Immat Gran (auto) 0.07 H (0.00-0.03) 10^3/uL Imm/Tot Granulo (auto) 0.6 H (0.0-0.5) % Sodium 128 L (136-145) mmol/L Potassium 3.3 L (3.5-5.1) mmol/L Chloride 97 L (98-107) mmol/L Carbon Dioxide 30.0 (21.0-32.0) mmol/L Anion Gap 4.3 BUN 24.0 H (7.0-18.0) mg/dL Creatinine 1.53 H (0.70-1.30) mg/dL Est GFR ( Amer) 53 L (>=60) Est GFR (Non-Af Amer) 44 L (>=60) BUN/Creatinine Ratio 15.7 Glucose 143 H (74-106) mg/dL Calcium 9.5 (8.5-10.1) mg/dL C-Reactive Protein 7.6 H (<=1.0) mg/dL Discharge Plan Discharge Chief Complaint: Back Pain/Injury Clinical Impression: Closed compression fracture of lumbar vertebra Patient Disposition: Home, Self-Care Prescriptions / Home Meds: No Action furosemide 20 mg tablet 10 mg PO PRN (Reason: edema) Rx Instructions: 10 mg orally twice a week on tuesdays/ PRN; irbesartan-hydrochlorothiazide 300-12.5 mg tablet 1 tab PO DAILY 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 sodium 2.5 mg tablet 12.5 mg PO .weekly Patient Comments: takes on monday pantoprazole 40 mg tablet,delayed release (DR/EC) 40 mg PO DAILY prednisone 2.5 mg tablet 5 mg PO QAM amitriptyline 50 mg tablet 25 mg PO BEDTIME aspirin [Bobo Low Dose Aspirin] 81 mg tablet,delayed release (DR/EC) 81 mg PO DAILY folic acid 1 mg tablet 1 mg PO DAILY glimepiride [Amaryl] 4 mg tablet 2 mg PO DAILY melatonin 5 mg tablet 5 mg PO DAILY diclofenac sodium 75 mg tablet,delayed release (DR/EC) 75 mg PO BID PRN (Reason: low back pain) Qty: 20 0RF tizanidine 4 mg capsule 4 mg PO .qhs PRN (Reason: muscle spasticity) 10 Days Qty: 10 0RF Instructions: Vertebral Compression Fracture (ED) Additional Instructions: follow up with your family doctor in the next couple of days Stand Alone Forms: Portal Instructions Referrals: Roman David MD [Primary Care Provider] - 1 week
[2023-03-01] MEDS: TRAMADOL HCL 50 MG TABLET 100 MG PO (23:04)
[2023-03-01] MEDS: KETOROLAC TROMETHAMINE 30 MG/ML VIAL IVP (23:04)
[2023-03-01] MEDS: METHYLPREDNISOLONE SOD SUCC PF 125 MG/2 ML VIAL IVP (23:04)
[2023-03-01 23:24] LABS: Basophils Absolute Auto 0.1 10^3/uL (0.0-0.1); Basophils Percent Auto 0.4 % (0.2-2.0); Eosinophils Absolute Auto 0.2 10^3/uL (0.0-0.7); Hematocrit 43.9 % (42.0-54.0); Hemoglobin 14.9 g/dL (14.0-18.0); Immature Granulocytes Abs Auto 0.07 10^3/uL (0.00-0.03); Immature Granulocytes Pct Auto 0.6 % (0.0-0.5); Lymphocytes Absolute Auto 1.5 10^3/uL (1.2-3.8); Lymphocytes Percent Auto 13.5 % (20.5-60.0); Mean Corpuscular HGB Conc 33.9 g/dL (29.9-35.2); Mean Corpuscular Volume 94.2 fL (80.0-94.0); Mean Platelet Volume 10.6 fL (9.5-13.5); Monocytes Absolute Auto 0.7 10^3/uL (0.3-0.8); Monocytes Percent Auto 6.2 % (1.7-12.0); Neutrophils Absolute Auto 8.7 10^3/uL (1.4-6.5); Neutrophils Percent Auto 77.3 % (43.0-75.0); Platelet Count 184 10^3/uL (150-450); Red Blood Count 4.66 10^6/uL (4.70-6.10); White Blood Count 11.2 10^3/uL (4.0-11.0)
[2023-03-01 23:39] LABS: Anion Gap 4.3; BUN Creatinine Ratio 15.7; C Reactive Protein 7.6 mg/dL (<=1.0); Calcium 9.5 mg/dL (8.5-10.1); Chloride 97 mmol/L (98-107); Estimated GFR (African America 53 (>=60); Estimated GFR (Non-African Ame 44 (>=60); Glucose 143 mg/dL (74-106); Potassium 3.3 mmol/L (3.5-5.1); Sodium 128 mmol/L (136-145)
[2023-03-02] MEDS: TRAMADOL HCL 50 MG TABLET 200 MG PO (00:32)
== END 2023-03-02 00:39 | disposition home or self-care (01) ==
PROVIDERS: Emergency Provider Internal Medicine; PCP Family Medicine
DX: S32.010A Wedge compression fracture of first lumbar vertebra, initial encounter for closed fracture (principal); W19.XXXA Unspecified fall, initial encounter; Z79.899 Other long term (current) drug therapy; Z79.82 Long term (current) use of aspirin; Z87.891 Personal history of nicotine dependence
CPT/HCPCS: 36415; 80048; 85025; 86140; 96374; 96375; 99284; J2930

== ENCOUNTER 2023-03-04 10:15 | Emergency (ER) | payer MEDICARE, OTHER, SELFPAY ==
[2023-03-04 10:23] VITALS: BP 143/84; PULSE 89; RESP 18; TEMP 36.6; O2SAT 96; BMI 35.7
--- NOTE | 2023-03-04 11:10 | ED.GENADUL1 ---
HPI - General Adult General Stated complaint: PAIN IN BACK/CONSTIPATION Time Seen by Provider: 03/04/23 11:04 Source: patient and family Mode of arrival: walk-in Limitations: no limitations History of Present Illness HPI narrative: This document has been composed with a new electronic medical record and [employer] voice recognition system. This document may not fully inaccurately reflect the entirety of the patient encounter.this patient's here with his for abdominal pain and constipation. He's been here several times this week. He had a fall and a subsequent L1 fracture. He states that it was minimal. He's scheduled follow-up with his primary care doctor not orthopedics. He's been taking tramadol for his pain and he says that holding him, but his insisted that he still has severe breakthrough pain and she wants a prescription for him. He's not had any vomiting. He's not had a bowel movement since Monday. He's tried some [id number] medications but has not used an enema. He's not been on a magnesium as of yet. He is not running a fever. Related Data Home Medications Medication Instructions Recorded Confirmed amitriptyline 50 mg tablet 25 mg PO BEDTIME 02/28/23 02/28/23 aspirin 81 mg tablet,delayed 81 mg PO DAILY 02/28/23 02/28/23 release (Bobo Low Dose Aspirin) folic acid 1 mg tablet 1 mg PO DAILY 02/28/23 02/28/23 furosemide 20 mg tablet 10 mg PO PRN edema 02/28/23 glimepiride 4 mg tablet (Amaryl) 2 mg PO DAILY 02/28/23 02/28/23 irbesartan 300 1 tab PO DAILY 02/28/23 02/28/23 mg-hydrochlorothiazide 12.5 mg tablet melatonin 5 mg tablet 5 mg PO DAILY 02/28/23 02/28/23 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 sodium 2.5 mg tablet 12.5 mg PO .weekly 02/28/23 02/28/23 pantoprazole 40 mg tablet,delayed 40 mg PO DAILY 02/28/23 02/28/23 release prednisone 2.5 mg tablet 5 mg PO QAM 02/28/23 02/28/23 Previous Rx's Medication Instructions Recorded diclofenac sodium 75 mg 75 mg PO BID PRN low back pain #20 03/01/23 tablet,delayed release tabs tizanidine 4 mg capsule 4 mg PO .qhs PRN muscle spasticity 03/01/23 10 days #10 caps Allergies Allergy/AdvReac Type Severity Reaction Status Date / Time PCN AdvReac Intermediate Uncoded 03/01/23 21:47 [facility] Medical History Family History (Updated 02/28/23 @ 15:37 by Bri Urbina LPN) Father Family history of CHF (congestive heart failure) Family history of cancer Family history of hypertension Family history of myocardial infarction Mother Family history of hypertension Social History (Updated 02/28/23 @ 15:38 by Bri Urbina LPN) Smoking status: Never smoker Second hand tobacco smoke exposure: No Non-prescribed substance use: denies use Previous occupational history: retired Known occupational exposures/hazards: No Highest level of school completed/degree received: high school graduate Do you want help with school or training: No Are you now , , , , never or living with a partner: In a typical week, how many times do you talk on the telephone with family, friends, or neighbors: twice per week How often do you get together with friends or relatives: once per week How often do you attend pentecostal or advent services: 4 or more times per year Do you belong to any clubs or organizations such as pentecostal groups unions, fraternal or athletic groups, or school groups: yes Total score: 4 Score interpretation: A score of greater than or equal to 2 indicates the lowest level of social isolation. Little interest or pleasure in doing things: not at all Feeling down, depressed, or hopeless: not at all Feel stressed/tense/nervous/anxious/difficulty sleeping: not at all Due to disability, difficulty making decisions: No Do you think of yourself as: straight/heterosexual Gender Identity: male Exam Narrative Exam Narrative: patient's vital signs are stable. He does have some discomfort but took a tramadol before coming here and insisted pain is manageable. Examination of his abdomen there is no acute peritoneal findings or guarding rebound or rigidity. Bowel sounds are present. There is no clinical evidence of an obstruction. His neurovascular examination lower extremities is normal with no evidence of neurological compromise or symptomatology. Constitutional Vital Signs, click to edit/add: Last Vital Signs Temp 97.8 F 03/04/23 10:23 Pulse 89 03/04/23 10:23 Resp 18 03/04/23 10:23 BP 143/84 H 03/04/23 10:23 Pulse Ox 96 03/04/23 10:23 O2 Del Method Room Air 03/04/23 10:23 Course Vital Signs Vital signs: Vital Signs Temperature 97.8 F 03/04/23 10:23 Pulse Rate 89 03/04/23 10:23 Respiratory Rate 18 03/04/23 10:23 Blood Pressure 143/84 H 03/04/23 10:23 Pulse Oximetry 96 03/04/23 10:23 Oxygen Delivery Method Room Air 03/04/23 10:23 Temperature 97.8 F 03/04/23 10:23 Pulse Rate 89 03/04/23 10:23 Respiratory Rate 18 03/04/23 10:23 Blood Pressure 143/84 H 03/04/23 10:23 Pulse Oximetry 96 03/04/23 10:23 Oxygen Delivery Method Room Air 03/04/23 10:23 Medical Decision Making MDM Narrative Medical decision making narrative: the patient's basically here for constipation secondary to his decreased activity and use of pain medication for his L1 fracture. We will give him a soapsuds enema. It has not affected we'll give him magnesium citrate to take as an outpatient. He'll be given supplemental prescription for Vicodin. He scheduled follow-up with his PCP Discharge Plan Discharge Chief Complaint: Abdominal Pain Clinical Impression: Acute constipation Patient Disposition: Home, Self-Care Time of Disposition Decision: 11:12 Prescriptions / Home Meds: No Action furosemide 20 mg tablet 10 mg PO PRN (Reason: edema) Rx Instructions: 10 mg orally twice a week on tuesdays/ PRN; irbesartan-hydrochlorothiazide 300-12.5 mg tablet 1 tab PO DAILY 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 sodium 2.5 mg tablet 12.5 mg PO .weekly Patient Comments: takes on monday pantoprazole 40 mg tablet,delayed release (DR/EC) 40 mg PO DAILY prednisone 2.5 mg tablet 5 mg PO QAM amitriptyline 50 mg tablet 25 mg PO BEDTIME aspirin [Bobo Low Dose Aspirin] 81 mg tablet,delayed release (DR/EC) 81 mg PO DAILY folic acid 1 mg tablet 1 mg PO DAILY glimepiride [Amaryl] 4 mg tablet 2 mg PO DAILY melatonin 5 mg tablet 5 mg PO DAILY diclofenac sodium 75 mg tablet,delayed release (DR/EC) 75 mg PO BID PRN (Reason: low back pain) Qty: 20 0RF tizanidine 4 mg capsule 4 mg PO .qhs PRN (Reason: muscle spasticity) 10 Days Qty: 10 0RF Additional Instructions: magnesium citrate as needed for severe constipation. Use Vicodin sparingly to complement tramadol usage Stand Alone Forms: Portal Instructions Referrals: Roman David MD [Primary Care Provider] - 1 week
== END 2023-03-04 12:22 | disposition home or self-care (01) ==
PROVIDERS: Emergency Provider Emergency Medicine Emergency Medical Services; PCP Family Medicine
DX: K59.00 Constipation, unspecified (principal); Z79.82 Long term (current) use of aspirin; Z79.899 Other long term (current) drug therapy
CPT/HCPCS: 99283

== ENCOUNTER 2023-03-05 08:00 | Observation (INO) | payer MEDICARE, OTHER, SELFPAY ==
[2023-03-05 08:16] VITALS: BP 169/73; PULSE 90; RESP 20; TEMP 36.7; O2SAT 97; BMI 35.8
--- NOTE | 2023-03-05 08:49 | XR_ITS ---
The [address] [address] Patient Name: JULIO OLIVAREZ MRN: [id number] date: 1940 Sex: M Assigned Patient Location: ER Current Patient Location: ER Accession/Order Number: [id number] Exam Date: 03/05/2023 08:56 Report Date: 03/05/2023 09:29 At the request of: JANNETTE CONWAY Procedure: XR lumbar spine 2-3V EXAMINATION: XR lumbar spine 2-3V HISTORY: pain COMPARISON: CT exam 03/05/2023 FINDINGS: BONES: Progression of anterior superior wedge compression fracture of L1 now approximately 40%. Mild to moderate degenerative spondylosis and facet osteoarthropathy DISC SPACES: Multilevel disc space narrowing with vacuum disc L3-4 and L4-5 PARASPINOUS: Negative. No paraspinous abnormality is seen. OTHER: Extensive atherosclerosis XR/XR lumbar spine 2-3V IMPRESSION: 40% anterior superior wedge compression fracture of L1, significantly progressed from last week's CT exam Electronically authenticated by: CJ MELTON Date: 03/05/2023 09:29
--- NOTE | 2023-03-05 08:50 | ED.BACK1 ---
HPI - Back Pain/Injury General Chief Complaint: Back Pain/Injury Stated Complaint: BACK PAIN Time Seen by Provider: 03/05/23 08:44 Source: patient Source comment: Pt reports of waiting IV pain meds Mode of arrival: ambulance Limitations: other Limitations comment: Pain History of Present Illness HPI Narrative: this patient's here for continuing intractable pain to his lumbar area. This is now his 3rd or 4th visit to the Emergency Room. After traumatic injury with an L1 fracture he was admitted overnight and then discharged follow-up. He's been back to Emergency Room several times. Yesterday his chief complaint was constipation. He did take some magnesium citrate at home as passed some soft stool. Today he says his back pain is unmanageable. He's been on tramadol and he took some Vicodin including a dose at 5:00 this morning when he took one dose. The pain does not radiate down the leg gets isolated to the lumbar area and gets worse with any type of movement. He's not had any new trauma or injury. Related Data Home Medications Medication Instructions Recorded Confirmed amitriptyline 50 mg tablet 25 mg PO BEDTIME 02/28/23 03/05/23 aspirin 81 mg tablet,delayed 81 mg PO DAILY 02/28/23 03/05/23 release (Bobo Low Dose Aspirin) folic acid 1 mg tablet 1 mg PO DAILY 02/28/23 03/05/23 furosemide 20 mg tablet 10 mg PO PRN edema 02/28/23 glimepiride 4 mg tablet (Amaryl) 2 mg PO DAILY 02/28/23 03/05/23 irbesartan 300 1 tab PO DAILY 02/28/23 03/05/23 mg-hydrochlorothiazide 12.5 mg tablet melatonin 5 mg tablet 5 mg PO DAILY 02/28/23 03/05/23 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 sodium 2.5 mg tablet 12.5 mg PO .weekly 02/28/23 03/05/23 pantoprazole 40 mg tablet,delayed 40 mg PO DAILY 02/28/23 03/05/23 release prednisone 2.5 mg tablet 5 mg PO QAM 02/28/23 03/05/23 hydrocodone 5 mg-acetaminophen 325 1 tab PO Q6H PRN pain 03/05/23 03/05/23 mg tablet Previous Rx's Medication Instructions Recorded diclofenac sodium 75 mg 75 mg PO BID PRN low back pain #20 03/01/23 tablet,delayed release tabs tizanidine 4 mg capsule 4 mg PO .qhs PRN muscle spasticity 03/01/23 10 days #10 caps Allergies Allergy/AdvReac Type Severity Reaction Status Date / Time PCN AdvReac Intermediate Uncoded 03/01/23 21:47 [facility] Medical History Family History (Updated 02/28/23 @ 15:37 by Bri Urbina LPN) Father Family history of CHF (congestive heart failure) Family history of cancer Family history of hypertension Family history of myocardial infarction Mother Family history of hypertension Social History (Updated 02/28/23 @ 15:38 by Bri Urbina LPN) Smoking status: Never smoker Second hand tobacco smoke exposure: No Non-prescribed substance use: denies use Previous occupational history: retired Known occupational exposures/hazards: No Highest level of school completed/degree received: high school graduate Do you want help with school or training: No Are you now , , , , never or living with a partner: In a typical week, how many times do you talk on the telephone with family, friends, or neighbors: twice per week How often do you get together with friends or relatives: once per week How often do you attend restorationist or baptist services: 4 or more times per year Do you belong to any clubs or organizations such as restorationist groups unions, fraternal or athletic groups, or school groups: yes Total score: 4 Score interpretation: A score of greater than or equal to 2 indicates the lowest level of social isolation. Little interest or pleasure in doing things: not at all Feeling down, depressed, or hopeless: not at all Feel stressed/tense/nervous/anxious/difficulty sleeping: not at all Due to disability, difficulty making decisions: No Do you think of yourself as: straight/heterosexual Gender Identity: male Exam Narrative Exam Narrative: patient's awake alert was brought to us by squad. Appears to be uncomfortable in when lying flat on his back with no movement. On focused examination to the lower extremity shows good neurovascular exam to the lower limbs bilaterally. Extensor hallucis longus function is normal. His deep tendon reflexes are symmetrical bilaterally. There is no clonus or spasticity. He did not really want rolled to his side. He does not have a pelvic or knee pain. Constitutional Vital Signs, click to edit/add: Last Vital Signs Temp 98.0 F 03/05/23 08:16 Pulse 90 03/05/23 08:16 Resp 20 03/05/23 08:16 BP 169/73 H 03/05/23 08:16 Pulse Ox 97 03/05/23 08:16 O2 Del Method Room Air 03/05/23 08:16 Course Vital Signs Vital signs: Vital Signs Temperature 98.0 F 03/05/23 08:16 Pulse Rate 90 03/05/23 08:16 Respiratory Rate 20 03/05/23 08:16 Blood Pressure 169/73 H 03/05/23 08:16 Pulse Oximetry 97 03/05/23 08:16 Oxygen Delivery Method Room Air 03/05/23 08:16 Temperature 98.0 F 03/05/23 08:16 Pulse Rate 90 03/05/23 08:16 Respiratory Rate 20 03/05/23 08:16 Blood Pressure 169/73 H 03/05/23 08:16 Pulse Oximetry 97 03/05/23 08:16 Oxygen Delivery Method Room Air 03/05/23 08:16 MDM - Back Pain/Injury MDM Narrative Medical decision making narrative: we'll give the patient intravenous analgesia at this time and repeat his lumbar spine x-ray to see if there is any change in the previous injury. Final disposition will be pending but he suggested he would like to be admitted. X-rays today show a substantial and marketed worsening of his compression fracture at nearly 40 percent per the radiologist. His urinalysis does not show any indication of infection but is extremely dilute. I discussed with the on-call physician and we will admit him and seek orthopedic consultation. Lab Data Labs: Lab Results 03/05/23 Range/Units 09:05 Urine Color Lt. yellow (YELLOW) Urine Clarity Clear (CLEAR) Urine pH 7.0 (5.0-9.0) Ur Specific [place] <=1.005 A (1.005-1.025) Urine Protein Negative (NEG/TRACE) mg/dL Urine Glucose (UA) Negative (NEGATIVE) mg/dL Urine Ketones Negative (NEGATIVE) mg/dL Urine Occult Blood Negative (NEGATIVE) Urine Nitrite Negative (NEGATIVE) Urine Bilirubin Negative (NEGATIVE) Urine Urobilinogen 0.2 (0.2-1.0) EU/dL Ur Leukocyte Esterase Negative (NEGATIVE) Urine RBC None seen (0-2) #/HPF Urine WBC None seen (NONE SEEN) #/HPF Ur Squamous Epith Cells None seen (NONE/RARE) #/LPF Urine Crystals None seen (None Seen) #/HPF Urine Bacteria None seen (NONE SEEN) #/HPF Urine Casts None seen (NONE SEEN) #/LPF Urine Mucus None seen (NONE SEEN) Ur Culture Indicated? No Discharge Plan Discharge Chief Complaint: Back Pain/Injury Clinical Impression: Closed compression fracture of body of L1 vertebra Patient Disposition: Admitted as Observation Time of Disposition Decision: 09:44 Prescriptions / Home Meds: No Action furosemide 20 mg tablet 10 mg PO PRN (Reason: edema) Rx Instructions: 10 mg orally twice a week on tuesdays/ PRN; irbesartan-hydrochlorothiazide 300-12.5 mg tablet 1 tab PO DAILY 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 sodium 2.5 mg tablet 12.5 mg PO .weekly Patient Comments: takes on monday pantoprazole 40 mg tablet,delayed release (DR/EC) 40 mg PO DAILY prednisone 2.5 mg tablet 5 mg PO QAM amitriptyline 50 mg tablet 25 mg PO BEDTIME aspirin [Bobo Low Dose Aspirin] 81 mg tablet,delayed release (DR/EC) 81 mg PO DAILY folic acid 1 mg tablet 1 mg PO DAILY glimepiride [Amaryl] 4 mg tablet 2 mg PO DAILY melatonin 5 mg tablet 5 mg PO DAILY diclofenac sodium 75 mg tablet,delayed release (DR/EC) 75 mg PO BID PRN (Reason: low back pain) Qty: 20 0RF tizanidine 4 mg capsule 4 mg PO .qhs PRN (Reason: muscle spasticity) 10 Days Qty: 10 0RF hydrocodone-acetaminophen 5-325 mg tablet 1 tab PO Q6H PRN (Reason: pain) Referrals: Roman David MD [Primary Care Provider] - 1 week
[2023-03-05] MEDS: HYDROMORPHONE HCL 1 MG/ML CARTRIDGE IVP ×2 (08:56→10:04)
[2023-03-05 09:15] LABS: Bilirubin Urine NEGATIVE (NEGATIVE); Blood Urine NEGATIVE (NEGATIVE); Clarity Urine CLEAR (CLEAR); Color Urine LT. YELLOW (YELLOW); Glucose Urine UA NEGATIVE (NEGATIVE); Ketones Urine NEGATIVE (NEGATIVE); Leukocyte Esterase Urine NEGATIVE (NEGATIVE); Nitrite Urine NEGATIVE (NEGATIVE); Protein Urine NEGATIVE (NEG/TRACE); Specific Gravity Urine <=1.005 (1.005-1.025); Urobilinogen Urine 0.2 EU/dL (0.2-1.0)
[2023-03-05 09:21] LABS: Bacteria Urine NONE SEEN #/HPF (NONE SEEN); Cast Seen? NONE SEEN #/LPF (NONE SEEN); Crystals Seen? None Seen #/HPF (None Seen); Mucus Urine NONE SEEN (NONE SEEN); RBC Urine NONE SEEN #/HPF (0-2); Squamous Epithelial Cell Urine NONE SEEN #/LPF (NONE/RARE); WBC Urine NONE SEEN #/HPF (NONE SEEN)
[2023-03-05 09:22] LABS: Urine Culture Indicated NO
[2023-03-05] MEDS: LIDOCAINE 2% JELLY 10 ML UR (10:24)
[2023-03-05 11:06] VITALS: PULSE 89; RESP 18; TEMP 36.7; O2SAT 93; BMI 77.0
[2023-03-05] MEDS: ENOXAPARIN SODIUM 40 MG/0.4 ML SYRINGE SUBQ (11:27)
--- NOTE | 2023-03-05 11:29 | P.HP_ITS ---
H&P: HPI History of Present Illness Chief complaint: BACK PAIN,L1 LOW BACK PAIN Narrative: patient is an 82-year-old male with past medical history of polymyalgia rheumatica, psoriatic arthritis, controlled type 2 diabetes, hypertension, GERD and hyperlipidemia. Patient had to jump from a rolling tractor approximately one week ago. He said when he jumped off the tractor he landed on his back. He had significant pain at the time, but was thankful that the tractor didn't land on him. He went to see his family physician as well as came to the Emergency Room after the accident. He had a CAT scan of his spine which showed a L1 compression fracture. He has received several different types of pain medications both in the Emergency Room and from his primary physician. Over the last few days pain has become more unbearable and he can just not get comfortable at home with different position changes. He then returned today to the emergency department, this being his 3rd visit within seven days. An x-ray of the lumbar spine showed worsening of the compression fracture of L1. Patient was admitted for the intr actable pain. At the time of admission exam his daughter and son are both at bedside and patient reports improvement in his pain symptoms. He denies any radiation down his legs or any weakness he does note pain in the dermatome of L1 around both hips and inguinal canals.also due to the multiple pain medications he is constipated. Review of Systems ROS Narrative ROS: a complete review of systems were reviewed with patient and are positive as below or listed in History of Chief Complaint. General: no fever, chills, night sweats Head: no headache, trauma, visual changes, nausea or vomiting Skin: no reported rashes, itching or sores Eyes: no blurriness of vision Ears: no reported hearing loss, vertigo, earache, or tinnitus Throat: no sore throat, hoarseness, swelling of neck, or tongue pain Heart: no chest pain Lungs: no shortness of breath or cough GI: no diarrhea or vomiting/nausea Urinary: no urinary urgency, frequency or pain Neuro: no numbness or tingling HEM: no bleeding issues or bruising ENDO: no thyroid problems Psych: no anxiety or depression ORTHO: back pain [facility] Medical History (Updated 03/05/23 @ 13:51 by Yulissa Neri DO) (02/28/23) Surgical History Family History Father Family history of CHF (congestive heart failure) Family history of cancer Family history of hypertension Family history of myocardial infarction Mother Family history of hypertension Social History Smoking status: Never smoker Second hand tobacco smoke exposure: No Non-prescribed substance use: denies use Previous occupational history: retired Known occupational exposures/hazards: No Highest level of school completed/degree received: high school graduate Do you want help with school or training: No Are you now , , , , never or living with a partner: In a typical week, how many times do you talk on the telephone with family, friends, or neighbors: twice per week How often do you get together with friends or relatives: once per week How often do you attend mandaeism or sabianist services: 4 or more times per year Do you belong to any clubs or organizations such as mandaeism groups unions, [employer] or athletic groups, or school groups: yes Total score: 4 Score interpretation: A score of greater than or equal to 2 indicates the lowest level of social isolation. Little interest or pleasure in doing things: not at all Feeling down, depressed, or hopeless: not at all Feel stressed/tense/nervous/anxious/difficulty sleeping: not at all Due to disability, difficulty making decisions: No Do you think of yourself as: straight/heterosexual Gender Identity: male Meds Home Medications and Allergies Home Medications Medication Instructions Recorded Confirmed Type amitriptyline 50 mg tablet 25 mg PO BEDTIME 02/28/23 03/05/23 History aspirin 81 mg tablet,delayed 81 mg PO BID 02/28/23 03/05/23 History release (Bobo Low Dose Aspirin) folic acid 1 mg tablet 1 mg PO DAILY 02/28/23 03/05/23 History furosemide 20 mg tablet 10 mg PO QDAY PRN edema 02/28/23 03/05/23 History glimepiride 4 mg tablet (Amaryl) 2 mg PO DAILY 02/28/23 03/05/23 History irbesartan 300 1 tab PO DAILY 02/28/23 03/05/23 History mg-hydrochlorothiazide 12.5 mg tablet melatonin 5 mg tablet 5 mg PO DAILY 02/28/23 03/05/23 History 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 sodium 2.5 mg tablet 12.5 mg PO .weekly 02/28/23 03/05/23 History pantoprazole 40 mg tablet,delayed 40 mg PO DAILY 02/28/23 03/05/23 History release prednisone 2.5 mg tablet 5 mg PO QAM 02/28/23 03/05/23 History diclofenac sodium 75 mg 75 mg PO BID PRN low back pain #20 03/01/23 03/05/23 Rx tablet,delayed release tabs hydrocodone 5 mg-acetaminophen 325 1 tab PO Q6H PRN pain 03/05/23 03/05/23 History mg tablet leucovorin calcium 5 mg tablet 5 mg PO DAILY 03/05/23 03/05/23 History prednisone 2.5 mg tablet 2.5 mg PO QPM 03/05/23 03/05/23 History rosuvastatin 5 mg tablet (Crestor) 5 mg PO DAILY 03/05/23 03/05/23 History tizanidine 4 mg capsule 4 mg PO BEDTIME PRN muscle 03/05/23 03/05/23 History spasticity Allergies Allergy/AdvReac Type Severity Reaction Status Date / Time PCN AdvReac Intermediate Uncoded 03/01/23 21:47 Exam Narrative Exam Narrative: General: Patient is alert, and oriented to person, place and time with normal affect, proper hygiene Skin: no visible rashes, or ulcers Head: atraumatic, acephalic Eyes: PERRLA, no nystagmus present, conjunctiva clear, no scleral icterus Ears: normal Tympanic Membrane, normal gross auditory acuity Nose: symmetric, no discharge, no maxillary or frontal sinus tenderness Mouth/Throat: no erythema, exudate, or tonsillar enlargement, normal dentition Neck: no masses palpated, normal thyroid, no JVD or audible carotid bruits Heart: Normal rate and rhythm, no murmurs/rubs/gallops Lungs: no audible wheezes, crackles and normal breath sounds all lung panda Abdomen: Normal audible bowel sounds, no distension, No palpable masses, no organomegaly, no rebound/guarding/ or rigidity Musculoskeletal: muscle atrophy noted, ROM is limited due to being in hospital bed, no swelling bilateral lower extremities Vascular: Normal carotid, radial, femoral, posterior tibial, and dorsalis pedis pulses Lymph: no supraclavicular, axillary, or anterior/posterior cervical adenopathy Neuro: CN II-X grossly intact, normal sensation upper and lower extremities Constitutional Vital Signs, click to edit/add: Last Vital Signs Temp 98.1 F 03/05/23 11:06 Pulse 89 03/05/23 11:06 Resp 18 03/05/23 11:06 BP 169/73 H 03/05/23 08:16 Pulse Ox 93 L 03/05/23 11:06 O2 Del Method Room Air 03/05/23 11:06 Results Labs Labs: Urine 03/05/23 Range/Units 09:05 Urine Color Lt. yellow (YELLOW) Urine Clarity Clear (CLEAR) Urine pH 7.0 (5.0-9.0) Ur Specific [place] <=1.005 A (1.005-1.025) Urine Protein Negative (NEG/TRACE) mg/dL Urine Glucose (UA) Negative (NEGATIVE) mg/dL Assessment and Plan Assessment and Plan (1) Intractable back pain: Assessment and Plan: Toradol, Morphine for severe pain, percocet as needed. X-ray showed worsening compression fracture compared to CT. Consulted Dr. Patrick, MRI of the lumbar spine tomorrow if he feels it's needed, pain control today. (2) Closed compression fracture of body of L1 vertebra: Assessment and Plan: patient with history of care home steroid and 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 use, and trauma. pain control (3) Diabetes: Assessment and Plan: poc QAC and Qhs, SSI as needed Qualifiers: Diabetes mellitus care home insulin use: without superintendent [employer] use Diabetes mellitus type: type 2 (4) Hypertension: Assessment and Plan: continue irbesartan/hctz, and furosemide as needed (5) Polymyalgia rheumatica: Assessment and Plan: continue 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 and prednisone (6) Psoriatic arthritis: Plan full code lovenox for DVT prophylaxis patient is in observatin status and is not expected to stay more than 2 midnights
[2023-03-05 11:37] LABS: Glucometer 135 mg/dL (74-106)
[2023-03-05] MEDS: KETOROLAC TROMETHAMINE 30 MG/ML VIAL IVP (15:07)
[2023-03-05 15:10] VITALS: BP 153/80; PULSE 84; RESP 18; TEMP 36.3; O2SAT 95
--- NOTE | 2023-03-05 15:16 | PC.NURSE ---
Pt ambulated from the bed to the bathroom and then too the recliner in the room. Pt was able to ambulate with minimal assist from the nurse. pt used a walker that he states he uses at home as well. Pt asked When am i due for my next dilaudid how do i get that educated the pt that he reports when he is having pain to the nurse and we will come in assess and provide intervention. Pt voiced well it has to be the dilaudid that is what works and i dont want it to get that bad again . educated that the puts in multiple orders for pain relief and scales indicating where to start for treatment. Pt also has sheron hose on and tolerating well. Pt is up in chair laughing and talking with family. Family is also making jokes voicing pt needs dilaudid or the good stuff .
[2023-03-05] MEDS: PREDNISONE 5 MG TABLET 2.5 MG PO (16:50)
[2023-03-05] MEDS: MORPHINE SULFATE 2 MG/ML SYRINGE IV ×2 (19:44→23:46)
[2023-03-05 20:19] LABS: Glucometer 161 mg/dL (74-106)
[2023-03-05 21:17] VITALS: BP 158/79; PULSE 91; RESP 18; TEMP 36.9; O2SAT 94
[2023-03-05] MEDS: AMITRIPTYLINE HCL 50 MG TABLET 25 MG PO (21:26)
[2023-03-05] MEDS: ATORVASTATIN CALCIUM 20 MG TABLET PO (21:26)
[2023-03-06] MEDS: KETOROLAC TROMETHAMINE 30 MG/ML VIAL IVP (02:33)
[2023-03-06 05:05] LABS: Basophils Percent Auto 0.4 % (0.2-2.0); Eosinophils Absolute Auto 0.1 10^3/uL (0.0-0.7); Eosinophils Percent Auto 1.2 % (0.9-7.0); Hematocrit 38.7 % (42.0-54.0); Hemoglobin 13.1 g/dL (14.0-18.0); Immature Granulocytes Abs Auto 0.09 10^3/uL (0.00-0.03); Immature Granulocytes Pct Auto 1.1 % (0.0-0.5); Lymphocytes Absolute Auto 1.4 10^3/uL (1.2-3.8); Lymphocytes Percent Auto 17.6 % (20.5-60.0); Mean Corpuscular HGB Conc 33.9 g/dL (29.9-35.2); Mean Corpuscular Volume 94.4 fL (80.0-94.0); Mean Platelet Volume 10.6 fL (9.5-13.5); Monocytes Absolute Auto 0.8 10^3/uL (0.3-0.8); Monocytes Percent Auto 9.5 % (1.7-12.0); Neutrophils Absolute Auto 5.6 10^3/uL (1.4-6.5); Neutrophils Percent Auto 70.2 % (43.0-75.0); Platelet Count 168 10^3/uL (150-450); Red Cell Distribution Width 13.6 % (11.0-15.0)
[2023-03-06] MEDS: OMEPRAZOLE 40 MG CAPSULE.DR PO (05:32)
[2023-03-06 05:35] VITALS: BP 163/83; PULSE 79; RESP 18; TEMP 36.8; O2SAT 93
[2023-03-06 05:40] LABS: INR 1.03; Partial Thromboplastin Time 29.5 sec (22.3-36.2); Prothrombin Time 10.9 sec (9.0-11.6)
[2023-03-06 05:42] LABS: Alanine Aminotransferase 29 U/L (16-63); Albumin Level 3.2 g/dL (3.4-5.0); Alkaline Phosphatase 67 U/L (46-116); Anion Gap 9.5; Aspartate Amino Transferase 12 U/L (15-37); BUN Creatinine Ratio 13.8; Bilirubin Total 0.7 mg/dL (0.2-1.0); Calcium 8.4 mg/dL (8.5-10.1); Carbon Dioxide 28.6 mmol/L (21.0-32.0); Chloride 103 mmol/L (98-107); Estimated GFR (African America >60 (>=60); Estimated GFR (Non-African Ame >60 (>=60); Globulin 3.1 g/dL; Glucose 133 mg/dL (74-106); Potassium 4.1 mmol/L (3.5-5.1); Sodium 137 mmol/L (136-145); Total Protein 6.3 g/dL (6.4-8.2)
[2023-03-06] MEDS: MORPHINE SULFATE 2 MG/ML SYRINGE IV (06:33)
[2023-03-06 07:29] VITALS: BP 119/73; PULSE 78; RESP 14; TEMP 36.6; O2SAT 95
[2023-03-06 07:50] VITALS: O2SAT 95
[2023-03-06 08:16] LABS: Glucometer 127 mg/dL (74-106)
--- NOTE | 2023-03-06 08:46 | PM.PN ---
Progress Note: Subjective Subjective Interval history: patient is an 82-year-old male with past medical history of polymyalgia rheumatica, psoriatic arthritis, controlled type 2 diabetes, hypertension, GERD and hyperlipidemia. Patient had to jump from a rolling tractor approximately one week ago. He said when he jumped off the tractor he landed on his back. He had significant pain at the time, but was thankful that the tractor didn't land on him. He went to see his family physician as well as came to the Emergency Room after the accident. He had a CAT scan of his spine which showed a L1 compression fracture. He has received several different types of pain medications both in the Emergency Room and from his primary physician. Over the last few days pain has become more unbearable and he can just not get comfortable at home with different position changes. He then returned today to the emergency department, this being his 3rd visit within seven days. An x-ray of the lumbar spine showed worsening of the compression fracture of L1. Patient was admitted for the intractable pain. At the time of admission exam his daughter and son are both at bedside and patient reports improvement in his pain symptoms. He denies any radiation down his legs or any weakness he does note pain in the dermatome of L1 around both hips and inguinal canals.also due to the multiple pain medications he is constipated. No reported overnight events. feels pain is controlled. Exam Narrative Exam Narrative: General: Patient is alert, and oriented to person, place and time with normal affect, proper hygiene Skin: no visible rashes, or ulcers Head: atraumatic, acephalic Neck: no masses palpated, normal thyroid, no JVD or audible carotid bruits Heart: Normal rate and rhythm, no murmurs/rubs/gallops Lungs: no audible wheezes, crackles and normal breath sounds all lung panda Abdomen: Normal audible bowel sounds, no distension, No palpable masses, no organomegaly, no rebound/guarding/ or rigidity Musculoskeletal: muscle atrophy noted, ROM is limited due to being in hospital bed, no swelling bilateral lower extremities Vascular: Normal carotid, radial, femoral, posterior tibial, and dorsalis pedis pulses Lymph: no supraclavicular, axillary, or anterior/posterior cervical adenopathy Neuro: CN II-X grossly intact, normal sensation upper and lower extremities Constitutional Vital Signs, click to edit/add: Last Vital Signs Temp 97.9 F 03/06/23 07:29 Pulse 78 03/06/23 07:29 Resp 14 03/06/23 07:29 BP 119/73 03/06/23 07:29 Pulse Ox 95 03/06/23 07:50 O2 Del Method Room Air 03/06/23 07:29 Progress Note: Objective Labs Labs: Short CBC 03/06/23 Range/Units 04:33 WBC 8.0 (4.0-11.0) 10^3/uL Hgb 13.1 L (14.0-18.0) g/dL Hct 38.7 L (42.0-54.0) % Plt Count 168 (150-450) 10^3/uL BMP 03/06/23 04:33 Sodium 137 Potassium 4.1 Chloride 103 Carbon Dioxide 28.6 BUN 16.0 Creatinine 1.16 Glucose 133 H Calcium 8.4 L Liver Function 03/06/23 Range/Units 04:33 Total Bilirubin 0.7 (0.2-1.0) mg/dL AST 12 L (15-37) U/L ALT 29 (16-63) U/L Alkaline Phosphatase 67 (46-116) U/L Albumin 3.2 L (3.4-5.0) g/dL Urine 03/05/23 Range/Units 09:05 Urine Color Lt. yellow (YELLOW) Urine Clarity Clear (CLEAR) Urine pH 7.0 (5.0-9.0) Ur Specific [place] <=1.005 A (1.005-1.025) Urine Protein Negative (NEG/TRACE) mg/dL Urine Glucose (UA) Negative (NEGATIVE) mg/dL Progress Note: A&P Assessment and Plan (1) Intractable back pain: (2) Closed compression fracture of body of L1 vertebra: (3) Diabetes: Qualifiers: Diabetes mellitus care home insulin use: without long term acute care registered nurse use Diabetes mellitus type: type 2 (4) Hypertension: (5) Polymyalgia rheumatica: (6) Psoriatic arthritis: Plan (1) Intractable back pain: Assessment and Plan: Toradol, Morphine for severe pain, Percocet as needed. X-ray showed worsening compression fracture compared to CT. Consulted Dr. Patrick, MRI of the lumbar spine tomorrow if he feels it's needed, pain control. (2) Closed compression fracture of body of L1 vertebra: Assessment and Plan: patient with history of long term acute care registered nurse steroid and 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 use, and trauma. pain control (3) Diabetes: Assessment and Plan: poc glucose QAC and Qhs, SSI as needed Qualifiers: Diabetes mellitus long term acute care registered nurse insulin use: without long term acute care registered nurse use Diabetes mellitus type: type 2 (4) Hypertension: Assessment and Plan: continue irbesartan/hctz, and furosemide as needed (5) Polymyalgia rheumatica: Assessment and Plan: continue 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 and prednisone (6) Psoriatic arthritis: Plan full code lovenox for DVT prophylaxis patient is in observation status and is not expected to stay more than 2 midnights
[2023-03-06] MEDS: GLIMEPIRIDE 2 MG TABLET PO (09:51)
[2023-03-06] MEDS: FOLIC ACID 1 MG TABLET PO (09:52)
[2023-03-06] MEDS: HYDROCHLOROTHIAZIDE 25 MG TABLET 12.5 MG PO (09:52)
[2023-03-06] MEDS: ASPIRIN 81 MG TABLET.DR PO (09:52)
[2023-03-06] MEDS: ENOXAPARIN SODIUM 40 MG/0.4 ML SYRINGE SUBQ (09:52)
[2023-03-06] MEDS: LOSARTAN POTASSIUM 50 MG TABLET 100 MG PO (09:54)
[2023-03-06] MEDS: METHOTREXATE SODIUM 2.5 MG TABLET 12.5 MG PO (09:54)
[2023-03-06] MEDS: PREDNISONE 5 MG TABLET PO (09:55)
--- NOTE | 2023-03-06 11:36 | CM.NOTE ---
Rounds made with Dr. Neri, Dr. Patrick will see pt today for further recommendations.
[2023-03-06 11:56] LABS: Glucometer 115 mg/dL (74-106)
--- NOTE | 2023-03-06 12:24 | CM.NOTE ---
Medicare Outpatient Observation Notice discussed with pt, pt verbalizes understanding and signs paper. Original given to patient and copy placed on pt's chart.
--- NOTE | 2023-03-06 13:13 | SWNOTE1 ---
SW met with pt to discuss dc needs. Pt's was in room as well. Pt and voiced they are waiting for Dr. Patrick to come in and see him to determine discharge plan. They both voiced since his discharge from the floor his pain was not tolerable. He has been in and out of ER several times. Pt voiced he has not been able to sleep or get around at all at home. Pt's has voiced she is exhausted as well and she has a bad back and has trouble helping him at home. Pt was set up with [address], but they have not been able to come in and see pt yet due to pt being in and out of ER, etc. SW let [facility] know pt was here. SW to see what plan is after ortho doctor sees pt.
[2023-03-06 14:00] VITALS: BP 134/76; PULSE 83; RESP 14; TEMP 36.9; O2SAT 94
--- NOTE | 2023-03-06 15:43 | P.ORCN_ITS ---
History of Present Illness HPI Consult date: 03/06/23 Consult reason: fracture Chief complaint: BACK PAIN,L1 LOW BACK PAIN Narrative: Patient is an 82-year-old who jumped off of his tractor last week onto his back with the acute onset of low back pain. Presented to the emergency room where radiographic studies revealed a L1 compression fracture. Patient was readmitted yesterday with increased back pain that was not controlled with oral pain medication. He denies any radicular type of symptoms. He denies prior back problems. Since being admitted today pain is well controlled on Percocet. Review of Systems ROS Status of ROS 10 or more systems reviewed and unremarkable except as noted in history and below [facility] Medical History (Updated 03/05/23 @ 13:51 by Yulissa Neri DO) (02/28/23) Surgical History Family History Father Family history of CHF (congestive heart failure) Family history of cancer Family history of hypertension Family history of myocardial infarction Mother Family history of hypertension Social History Smoking status: Never smoker Second hand tobacco smoke exposure: No Non-prescribed substance use: denies use Previous occupational history: retired Known occupational exposures/hazards: No Highest level of school completed/degree received: high school graduate Do you want help with school or training: No Are you now , , , , never or living with a partner: In a typical week, how many times do you talk on the telephone with family, friends, or neighbors: twice per week How often do you get together with friends or relatives: once per week How often do you attend mormon or anabaptist services: 4 or more times per year Do you belong to any clubs or organizations such as mormon groups unions, fraternal or athletic groups, or school groups: yes Total score: 4 Score interpretation: A score of greater than or equal to 2 indicates the lowest level of social isolation. Little interest or pleasure in doing things: not at all Feeling down, depressed, or hopeless: not at all Feel stressed/tense/nervous/anxious/difficulty sleeping: not at all Due to disability, difficulty making decisions: No Do you think of yourself as: straight/heterosexual Gender Identity: male Meds Home Medications and Allergies Home Medications Medication Instructions Recorded Confirmed Type amitriptyline 50 mg tablet 25 mg PO BEDTIME 02/28/23 03/05/23 History aspirin 81 mg tablet,delayed 81 mg PO BID 02/28/23 03/05/23 History release (Bobo Low Dose Aspirin) folic acid 1 mg tablet 1 mg PO DAILY 02/28/23 03/05/23 History furosemide 20 mg tablet 10 mg PO QDAY PRN edema 02/28/23 03/05/23 History glimepiride 4 mg tablet (Amaryl) 2 mg PO DAILY 02/28/23 03/05/23 History irbesartan 300 1 tab PO DAILY 02/28/23 03/05/23 History mg-hydrochlorothiazide 12.5 mg tablet melatonin 5 mg tablet 5 mg PO DAILY 02/28/23 03/05/23 History 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 sodium 2.5 mg tablet 12.5 mg PO .weekly 02/28/23 03/05/23 History pantoprazole 40 mg tablet,delayed 40 mg PO DAILY 02/28/23 03/05/23 History release prednisone 2.5 mg tablet 5 mg PO QAM 02/28/23 03/05/23 History diclofenac sodium 75 mg 75 mg PO BID PRN low back pain #20 03/01/23 03/05/23 Rx tablet,delayed release tabs hydrocodone 5 mg-acetaminophen 325 1 tab PO Q6H PRN pain 03/05/23 03/05/23 History mg tablet leucovorin calcium 5 mg tablet 5 mg PO DAILY 03/05/23 03/05/23 History prednisone 2.5 mg tablet 2.5 mg PO QPM 03/05/23 03/05/23 History rosuvastatin 5 mg tablet (Crestor) 5 mg PO DAILY 03/05/23 03/05/23 History tizanidine 4 mg capsule 4 mg PO BEDTIME PRN muscle 03/05/23 03/05/23 History spasticity Allergies Allergy/AdvReac Type Severity Reaction Status Date / Time PCN AdvReac Intermediate Uncoded 03/01/23 21:47 Exam Narrative Exam Narrative: Physical exam today he is in no obvious distress. Throughout the history and physical he swings both knees [id number] without any obvious discomfort. He has normal sensation of the lower extremities and no weakness with ankle flexion or extension, great toe dorsiflexion, knee flexion or extension, hip flexion. Deep tendon reflexes are 2+ and symmetric. Constitutional Vital Signs, click to edit/add: Last Vital Signs Temp 98.4 F 03/06/23 14:00 Pulse 83 03/06/23 14:00 Resp 14 03/06/23 14:00 BP 134/76 03/06/23 14:00 Pulse Ox 94 L 03/06/23 14:00 O2 Del Method Room Air 03/06/23 14:00 Results Labs Labs: Abnormal lab results 03/05/23 03/06/23 03/06/23 Range/Units 20:10 04:33 08:09 RBC 4.10 L (4.70-6.10) 10^6/uL Hgb 13.1 L (14.0-18.0) g/dL Hct 38.7 L (42.0-54.0) % MCV 94.4 H (80.0-94.0) fL Lymph % (Auto) 17.6 L (20.5-60.0) % Abs Immat Gran (auto) 0.09 H (0.00-0.03) 10^3/uL Imm/Tot Granulo (auto) 1.1 H (0.0-0.5) % Glucose 133 H (74-106) mg/dL Calcium 8.4 L (8.5-10.1) mg/dL AST 12 L (15-37) U/L Total Protein 6.3 L (6.4-8.2) g/dL Albumin 3.2 L (3.4-5.0) g/dL POC Glucose 161 H 127 H (74-106) mg/dL 03/06/23 Range/Units 11:55 RBC (4.70-6.10) 10^6/uL Hgb (14.0-18.0) g/dL Hct (42.0-54.0) % MCV (80.0-94.0) fL Lymph % (Auto) (20.5-60.0) % Abs Immat Gran (auto) (0.00-0.03) 10^3/uL Imm/Tot Granulo (auto) (0.0-0.5) % Glucose (74-106) mg/dL Calcium (8.5-10.1) mg/dL AST (15-37) U/L Total Protein (6.4-8.2) g/dL Albumin (3.4-5.0) g/dL POC Glucose 115 H (74-106) mg/dL H & H 03/06/23 Range/Units 04:33 Hgb 13.1 L (14.0-18.0) g/dL Hct 38.7 L (42.0-54.0) % Coagulation 03/06/23 Range/Units 04:33 INR 1.03 All other labs normal. 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 I discussed pain control strategies, activity modification as well as an outpatient kyphoplasty procedure. At this point MRI does not seem to be necessary. Patient will call my office upon discharge and we will make the r eferral for kyphoplasty procedure.
[2023-03-06 16:19] LABS: Glucometer 132 mg/dL (74-106)
[2023-03-06] MEDS: IBUPROFEN 600 MG TABLET PO ×2 (17:31→23:41)
[2023-03-06] MEDS: PREDNISONE 5 MG TABLET 2.5 MG PO (17:31)
[2023-03-06 19:52] VITALS: BP 141/75; PULSE 90; RESP 16; TEMP 36.6; O2SAT 95
[2023-03-06 20:18] LABS: Glucometer 230 mg/dL (74-106)
[2023-03-06] MEDS: ATORVASTATIN CALCIUM 20 MG TABLET PO (21:09)
[2023-03-06] MEDS: INSULIN ASPART 300 UNIT/3 ML PEN SUBQ (21:09)
[2023-03-06] MEDS: POLYETHYLENE GLYCOL 3350 17 GM POWDER PACKET PO (21:10)
[2023-03-06] MEDS: AMITRIPTYLINE HCL 50 MG TABLET 25 MG PO (21:10)
[2023-03-06] MEDS: TIZANIDINE HCL 4 MG TABLET PO (21:11)
[2023-03-07 05:13] VITALS: BP 116/68; PULSE 67; RESP 16; TEMP 36.6; O2SAT 94
[2023-03-07 05:21] LABS: Basophils Absolute Auto 0.1 10^3/uL (0.0-0.1); Basophils Percent Auto 0.5 % (0.2-2.0); Eosinophils Absolute Auto 0.2 10^3/uL (0.0-0.7); Eosinophils Percent Auto 1.7 % (0.9-7.0); Hemoglobin 12.8 g/dL (14.0-18.0); Immature Granulocytes Abs Auto 0.15 10^3/uL (0.00-0.03); Immature Granulocytes Pct Auto 1.4 % (0.0-0.5); Lymphocytes Absolute Auto 1.4 10^3/uL (1.2-3.8); Lymphocytes Percent Auto 13.1 % (20.5-60.0); Mean Corpuscular HGB Conc 33.7 g/dL (29.9-35.2); Mean Corpuscular Hemoglobin 32.2 pg (25.9-34.0); Mean Corpuscular Volume 95.7 fL (80.0-94.0); Mean Platelet Volume 10.9 fL (9.5-13.5); Monocytes Absolute Auto 0.8 10^3/uL (0.3-0.8); Monocytes Percent Auto 7.5 % (1.7-12.0); Neutrophils Absolute Auto 8.3 10^3/uL (1.4-6.5); Neutrophils Percent Auto 75.8 % (43.0-75.0); Platelet Count 174 10^3/uL (150-450); Red Blood Count 3.97 10^6/uL (4.70-6.10); Red Cell Distribution Width 13.8 % (11.0-15.0)
[2023-03-07 05:41] LABS: Alanine Aminotransferase 28 U/L (16-63); Albumin Globulin Ratio 0.9; Albumin Level 2.9 g/dL (3.4-5.0); Alkaline Phosphatase 76 U/L (46-116); Anion Gap 5.5; Aspartate Amino Transferase 15 U/L (15-37); BUN Creatinine Ratio 16.8; Bilirubin Total 0.6 mg/dL (0.2-1.0); Calcium 8.4 mg/dL (8.5-10.1); Chloride 102 mmol/L (98-107); Estimated GFR (African America >60 (>=60); Estimated GFR (Non-African Ame 53 (>=60); Globulin 3.2 g/dL; Glucose 141 mg/dL (74-106); Potassium 4.5 mmol/L (3.5-5.1); Sodium 134 mmol/L (136-145); Total Protein 6.1 g/dL (6.4-8.2)
[2023-03-07] MEDS: OMEPRAZOLE 40 MG CAPSULE.DR PO (05:47)
[2023-03-07 07:42] VITALS: RESP 18
[2023-03-07 07:42] LABS: Glucometer 110 mg/dL (74-106)
[2023-03-07] MEDS: HYDROCHLOROTHIAZIDE 25 MG TABLET 12.5 MG PO (08:37)
[2023-03-07] MEDS: ENOXAPARIN SODIUM 40 MG/0.4 ML SYRINGE SUBQ (08:43)
[2023-03-07] MEDS: PREDNISONE 5 MG TABLET PO (08:44)
[2023-03-07] MEDS: ASPIRIN 81 MG TABLET.DR PO (08:44)
[2023-03-07 08:45] VITALS: BP 159/97
[2023-03-07] MEDS: LOSARTAN POTASSIUM 50 MG TABLET 100 MG PO (08:45)
[2023-03-07] MEDS: GLIMEPIRIDE 2 MG TABLET PO (08:46)
[2023-03-07] MEDS: FOLIC ACID 1 MG TABLET PO (08:46)
--- NOTE | 2023-03-07 10:03 | SWNOTE1 ---
STEVE received call from nursing last night and the step daughter called and had concerns about her mom taking pt home and not being able to care for him, possibly needing rehab. STEVE called sindy daughter back and let her know SW is not able to release any medical information in regards to pt to her without her permission. She voiced understanding. Chyna (step daughter) voiced she was under the impressions from her mom that pt has limited mobility and can only get up to use restroom. She then voiced she misunderstood and it is not the case. She did ask if on pt's discharge instructions in can be written that pt is able to be mobile. STEVE let her know STEVE does not determine this and unsure if that would be on dc instructions. STEVE let Chyna know, SW to ask director of [facility] and have her call Chyna back. Chyna does voice understanding he does not qualify for rehab at this time. She stated that her mother refers to the dc instructions all the time and that is what she is going to go by.
--- NOTE | 2023-03-07 10:25 | SWNOTE1 ---
STEVE spoke with nursing and director and nursing is going to call Dr. Patrick to verify if pt has any restrictions to determine what will go on discharge instructions.
[2023-03-07] MEDS: IBUPROFEN 600 MG TABLET PO (10:44)
--- NOTE | 2023-03-07 11:22 | CM.NOTE ---
Rounds made with miri Gan for discharge to home today. Pt will f/u with orthopedic and Dr. David.
--- NOTE | 2023-03-07 11:47 | PM.DS1 ---
DS: Providers Provider Date of admission: 03/05/23 10:24 Primary care physician: Roman David MD Admitting clinician: Yulissa Neri Consults: 03/05/23 13:54 Consult to Orthopedic Surgery Routine Consulting Provider: Dakota Patrick Reason For Exam: Reason for consultation: L1 compression fracture; i attempted to reach him without success today Has provider been notified: Yes 03/06/23 08:46 Occupational Therapy Eval and Treat Routine Reason for consultation: L1 compression fracture Has provider been notified: No Physical Therapy Eval and Treat Routine Reason for consultation: L1 compression fracture Has provider been notified: No Attending physician on discharge: Yulissa Neri DS: Diagnosis Discharge Diagnosis (1) Intractable back pain: (2) Closed compression fracture of body of L1 vertebra: (3) Diabetes: Qualifiers: 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 Patient had to jump from a rolling tractor approximately one week ago. He said when he jumped off the tractor he landed on his back. He had significant pain at the time, but was thankful that the tractor didn't land on him. He went to see his family physician as well as came to the Emergency Room after the accident. He had a CAT scan of his spine which showed a L1 compression fracture. He has received several different types of pain medications both in the Emergency Room and from his primary physician. Over the last few days pain has become more unbearable and he can just not get comfortable at home with different position changes. He then returned today to the emergency department, this being his 3rd visit within seven days. An x-ray of the lumbar spine showed worsening of the compression fracture of L1. Patient was admitted for the intractable pain. Pain has been controlled on oral percocet, tizandine and motrin and will be discharged home on these. Dr. Patrick ortho came to see and evaluate patient, referred him to Ortho spine doctor and he will follow up with this doctor and Dr. David. He got up well with walker and performed well with PT/OT. home today with pain control and limited ambulation. Status at Discharge Functional status at discharge: uses cane/walker Overall status at discharge: patient is not back to baseline Time Spent with Patient Time attestation: Total time spent providing and/or coordinating discharge services: Time spent: greater than 30 minutes Exam Narrative Exam Narrative: General: Patient is alert, and oriented to person, place and time with normal affect, proper hygiene Heart: Normal rate and rhythm, no murmurs/rubs/gallops Lungs: no audible wheezes, crackles and normal breath sounds all lung panda Abdomen: Normal audible bowel sounds, no distension, No palpable masses, no organomegaly, no rebound/guarding/ or rigidity Musculoskeletal: muscle atrophy noted, ROM is limited due to being in hospital bed, no swelling bilateral lower extremities Vascular: Normal carotid, radial, femoral, posterior tibial, and dorsalis pedis pulses Lymph: no supraclavicular, axillary, or anterior/posterior cervical adenopathy Neuro: CN II-X grossly intact, normal sensation upper and lower extremities Constitutional Vital Signs, click to edit/add: Last Vital Signs Temp 97.8 F 03/07/23 05:13 Pulse 67 03/07/23 05:13 Resp 18 03/07/23 07:42 BP 159/97 H 03/07/23 08:45 Pulse Ox 94 L 03/07/23 05:13 O2 Del Method CPAP 03/07/23 05:13 DS: Data Data Completed and Pending Labs on day of discharge: Labs from last 24 hours 03/07/23 03/07/23 03/06/23 07:40 04:54 20:17 WBC 11.0 RBC 3.97 L Hgb 12.8 L Hct 38.0 L MCV 95.7 H MCH 32.2 MCHC 33.7 RDW 13.8 Plt Count 174 MPV 10.9 Neut % (Auto) 75.8 H Lymph % (Auto) 13.1 L Turner % (Auto) 7.5 Eos % (Auto) 1.7 Baso % (Auto) 0.5 Neut # (Auto) 8.3 H Lymph # (Auto) 1.4 Turner # (Auto) 0.8 Eos # (Auto) 0.2 Baso # (Auto) 0.1 Abs Immat Gran (auto) 0.15 H Imm/Tot Granulo (auto) 1.4 H Sodium 134 L Potassium 4.5 Chloride 102 Carbon Dioxide 31.0 Anion Gap 5.5 BUN 22.0 H Creatinine 1.31 H Est GFR ( Amer) >60 Est GFR (Non-Af Amer) 53 L BUN/Creatinine Ratio 16.8 Glucose 141 H Calcium 8.4 L Total Bilirubin 0.6 AST 15 ALT 28 Alkaline Phosphatase 76 Total Protein 6.1 L Albumin 2.9 L Globulin 3.2 Albumin/Globulin Ratio 0.9 POC Glucose 110 H 230 H 03/06/23 03/06/23 16:18 11:55 WBC RBC Hgb Hct MCV MCH MCHC RDW Plt Count MPV Neut % (Auto) Lymph % (Auto) [place] % (Auto) Eos % (Auto) Baso % (Auto) Neut # (Auto) Lymph # (Auto) Turner # (Auto) Eos # (Auto) Baso # (Auto) Abs Immat Gran (auto) Imm/Tot Granulo (auto) Sodium Potassium Chloride Carbon Dioxide Anion Gap BUN Creatinine Est GFR ( Amer) Est GFR (Non-Af Amer) BUN/Creatinine Ratio Glucose Calcium Total Bilirubin AST ALT Alkaline Phosphatase Total Protein Albumin Globulin Albumin/Globulin Ratio POC Glucose 132 H 115 H Discharge Plan Discharge Disposition: Home, Self-Care (OBS FBC) Discharge Medications: New tizanidine 4 mg Tablet 4 mg PO QHS PRN (Reason: muscle spasticity) 7 Days Qty: 7 0RF Rx Instructions: ICD10: s32.ooo lumbar compression fracture ibuprofen 600 mg Tablet 600 mg PO Q6H PRN (Reason: Moderate Pain) 10 Days Qty: 40 0RF oxycodone-acetaminophen 5-325 mg Tablet 1 tab PO Q6H PRN (Reason: back pain) 7 Days Qty: 28 0RF Rx Instructions: icd 10: S32.000 Lumbar compression fracture Continued furosemide 20 mg tablet 10 mg PO QDAY PRN (Reason: edema) Rx Instructions: on Tuesdays and Fridays irbesartan-hydrochlorothiazide 300-12.5 mg tablet 1 tab PO DAILY 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 sodium 2.5 mg tablet 12.5 mg PO .weekly Patient Comments: takes on monday pantoprazole 40 mg tablet,delayed release (DR/EC) 40 mg PO DAILY prednisone 2.5 mg tablet 5 mg PO QAM amitriptyline 50 mg tablet 25 mg PO BEDTIME aspirin [Bobo Low Dose Aspirin] 81 mg tablet,delayed release (DR/EC) 81 mg PO BID folic acid 1 mg tablet 1 mg PO DAILY glimepiride [Amaryl] 4 mg tablet 2 mg PO DAILY melatonin 5 mg tablet 5 mg PO DAILY prednisone 2.5 mg tablet 2.5 mg PO QPM leucovorin calcium 5 mg tablet 5 mg PO DAILY rosuvastatin [Crestor] 5 mg tablet 5 mg PO DAILY Rx Instructions: On tuesdays and monday Discontinued diclofenac sodium 75 mg tablet,delayed release (DR/EC) 75 mg PO BID PRN (Reason: low back pain) Qty: 20 0RF tizanidine 4 mg capsule 4 mg PO BEDTIME PRN (Reason: muscle spasticity) No Action hydrocodone-acetaminophen 5-325 mg tablet 1 tab PO Q6H PRN (Reason: pain) Activity: resume usual activities as tolerated Activity Detail: Per Dr Patrick, Patient may ambulate with or without walker throughout the house as tolerated. No long distance ambulation. 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 Referrals: Roman David MD [Primary Care Provider] - 1 week Follow Up Appointments: Follow up appt. with Dr. David on Mon. Mar.10 @ 10:15am Follow up appt. with [facility] Orthoped[facility] Sports Medicine on . Mar.14 @ 4:00pm [address], [place] [address] Patient is to take Radiology folder to appt.
--- NOTE | 2023-03-08 11:37 | CM.DCFOLLOWU ---
Person spoke with: Patient How are you feeling? a little more pain since I have been home but not nearly as bad as I was. How is your pain? 09/16 to back Did you understand your discharge instructions? yes Do you have any questions about your discharge instructions? no Were you given any prescriptions at discharge? yes Were you able to get your prescriptions filled? yes Do you understand how to take your medications as ordered? yes Do you have any questions about your follow up appointment and do you plan to keep your follow up appointment? Patient plans to keep the following follow up appointments: Follow up appt. with Dr. David on Mon. Mar.10 @ 10:15am Follow up appt. with [facility] Orthopedics and Sports Medicine on . Mar.14 @ 4:00pm [address], [place] [address] Patient is to take Radiology folder to appt.-reminded patient of this and he states it is right here in front of me to take with me. Is there anything else that you would like to discuss? Pt. denies any other questions or needs. He did voiced that home health is coming out to his home this afternoon. Questions/Comments/Concerns/Other: n/a
== END 2023-03-07 12:20 | disposition home or self-care (01) ==
LOC: ER 09:44 → MS 10:25
PROVIDERS: Admitting Provider Family Medicine; Emergency Provider Emergency Medicine Emergency Medical Services; PCP Family Medicine; Visit Provider Family Medicine
DX: S32.010A Wedge compression fracture of first lumbar vertebra, initial encounter for closed fracture (principal); M54.9 Dorsalgia, unspecified; I10 Essential (primary) hypertension; M35.3 Polymyalgia rheumatica; L40.50 Arthropathic psoriasis, unspecified; E11.9 Type 2 diabetes mellitus without complications; K21.9 Gastro-esophageal reflux disease without esophagitis; K59.00 Constipation, unspecified; Z79.82 Long term (current) use of aspirin; X50.9XXA Other and unspecified overexertion or strenuous movements or postures, initial encounter; Z79.899 Other long term (current) drug therapy
CPT/HCPCS: 36415; 51702; 72100; 80053; 81001; 82948; 85025; 85610; 85730; 96372; 96374; 96375; 96376; 97161; 97165; 99285; G0378; J1170

== ENCOUNTER 2023-03-16 14:23 | Outpatient (OUT) | payer MEDICARE, OTHER, SELFPAY ==
--- NOTE | 2023-03-16 | MR_ITS ---
The [address] [address] Patient Name: JULIO OLIVAREZ MRN: [id number] date: 1940 Sex: M Assigned Patient Location: MRI Current Patient Location: Accession/Order Number: [id number] Exam Date: 03/16/2023 15:00 Report Date: 03/17/2023 09:10 At the request of: NON-STAFF PHYSICIAN Procedure: MR thoracic spine wo con EXAMINATION: MR thoracic spine wo con HISTORY: Lumbar spondylosis M47.816, Lumbar pain M54.50, M80.08xA ; osteoporosis with pathologic L1 fracture COMPARISON: XR lumbar spine 03/05/2023, CT abdomen pelvis 02/28/2023 TECHNIQUE: Axial T2; Sagittal T1, T2, and Stir sequences. Images were performed without contrast. FINDINGS: CORD: Normal caliber, contour, and signal intensity. BONES: Moderate compression fracture of L1 with mild marrow edema. Incidental prominent hemangioma within T8. DISCS: Multilevel mild degenerative disc disease. PARASPINAL AREA: No visible mass. OTHER: Negative. MR/MR thoracic spine wo con IMPRESSION: 1. L1 moderate compression fracture, likely subacute. 2. Unremarkable thoracic spine other than mild degenerative disc disease. Electronically authenticated by: CARYN URENA Date: 03/17/2023 09:10
== END 2023-03-16 14:24 | disposition home or self-care (01) ==
LOC: MRI 14:26
PROVIDERS: PCP Family Medicine
DX: M47.816 Spondylosis without myelopathy or radiculopathy, lumbar region (principal); M54.50 Low back pain, unspecified; M80.08XA Age-related osteoporosis with current pathological fracture, vertebra(e), initial encounter for fracture
CPT/HCPCS: 72146

== ENCOUNTER 2023-03-24 09:32 | Outpatient (OUT) | payer MEDICARE, OTHER, SELFPAY ==
--- NOTE | 2023-03-24 09:39 | MR_ITS ---
[address] [address] Patient Name: JULIO OLIVAREZ MRN: [id number] date: 1940 Sex: M Assigned Patient Location: MRI Current Patient Location: MRI Accession/Order Number: [id number] Exam Date: 03/24/2023 09:50 Report Date: 03/24/2023 14:19 At the request of: NON-STAFF PHYSICIAN Procedure: MR lumbar spine wo con EXAMINATION: MR lumbar spine wo con HISTORY: Lumbar spondylosis M47.816, M54.50, M80.08xA COMPARISON: MRI of the thoracic spine 03/16/23 TECHNIQUE: A variety of imaging planes and parameters were utilized for visualization of suspected pathology. FINDINGS: For the purposes of numbering, sagittal T2 image # 8 extends from the T11 vertebral body superiorly to the S2-S3 level inferiorly. PARASPINAL AREA: Normal with no visible mass. BONES: 50% wedge compression fracture of the L1 vertebral body with extensive bone edema. Linear fracture plane through the mid vertebral body extends through the posterior cortex with 3 mm of posterior displacement of the posterior superior margin of the L1 vertebral body into the central canal. Area of signal abnormality demonstrating increased T2 and STIR signal posterior superior margin of the L4 vertebral body, an area of bone edema is favored. Round area of signal abnormality L2 vertebral body, a hemangioma is favored. Moderate diffuse degenerative spondylosis CORD/CAUDA EQUINA: Normal caliber, contour, and signal intensity. DISC LEVELS: 12-L1: Complex fracture of the L1 vertebral body with 3 mm retropulsion of the posterior superior margin into the central canal. No central or foraminal stenosis L1-L2: Disc desiccation. Mild diffuse disc/osteophyte complex. No central canal stenosis. No definite foraminal stenosis. L2-L3: Disc desiccation. Moderate diffuse disc/osteophyte complex. Moderate ligamentum flavum hypertrophy. Mild trefoil narrowing of the central canal. No foraminal stenosis L3-L4: Moderate disc space narrowing and disc desiccation. Moderate diffuse disc/osteophyte complex. Moderate ligamentum flavum hypertrophy. Mild central canal stenosis. No foraminal stenosis. L4-L5: Moderate disc space narrowing and disc desiccation. Moderate diffuse disc/osteophyte complex. No central or foraminal stenosis. L5-S1: Disc desiccation. Mild diffuse disc bulge. No central or foraminal stenosis. MR/MR lumbar spine wo con IMPRESSION: Complex L1 vertebral body fracture, grossly stable from the MRI last week Moderate degenerative changes resulting in central and foraminal stenosis at multiple levels as detailed above Electronically authenticated by: CJ MELTON Date: 03/24/2023 14:19
== END 2023-03-24 09:33 | disposition home or self-care (01) ==
LOC: MRI 09:32
PROVIDERS: PCP Family Medicine
DX: M47.816 Spondylosis without myelopathy or radiculopathy, lumbar region (principal); M54.50 Low back pain, unspecified; M80.08XA Age-related osteoporosis with current pathological fracture, vertebra(e), initial encounter for fracture
CPT/HCPCS: 72148

== ENCOUNTER 2023-03-27 02:51 | Emergency (ER) | payer MEDICARE, OTHER, SELFPAY ==
[2023-03-27 02:56] VITALS: BP 175/94; PULSE 91; RESP 18; TEMP 36.9; O2SAT 97; BMI 35.4
--- NOTE | 2023-03-27 03:25 | ED.BACK1 ---
HPI - Back Pain/Injury General Chief Complaint: Back Pain/Injury Stated Complaint: BACK PAIN Time Seen by Provider: 03/27/23 03:25 Source: patient and family Mode of arrival: walk-in Limitations: no limitations History of Present Illness HPI Narrative: patient has chronic back pain. lumbar compression . followed by pain specialist in [facility]. Is taking percocet q6 and motrin for pain for past 2 weeks. [place] light headed after taking percocet yesterday. No nausea . He is concern he has been taking Percocet too long and may be reacting to it he also complains of a rash of his inner thigh area MD elicited complaint: Reports back pain Related Data Home Medications Medication Instructions Recorded Confirmed amitriptyline 50 mg tablet 25 mg PO BEDTIME 02/28/23 03/05/23 aspirin 81 mg tablet,delayed 81 mg PO BID 02/28/23 03/05/23 release (Bobo Low Dose Aspirin) folic acid 1 mg tablet 1 mg PO DAILY 02/28/23 03/05/23 furosemide 20 mg tablet 10 mg PO QDAY PRN edema 02/28/23 03/05/23 glimepiride 4 mg tablet (Amaryl) 2 mg PO DAILY 02/28/23 03/05/23 irbesartan 300 1 tab PO DAILY 02/28/23 03/05/23 mg-hydrochlorothiazide 12.5 mg tablet melatonin 5 mg tablet 5 mg PO DAILY 02/28/23 03/05/23 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 sodium 2.5 mg tablet 12.5 mg PO .weekly 02/28/23 03/05/23 pantoprazole 40 mg tablet,delayed 40 mg PO DAILY 02/28/23 03/05/23 release prednisone 2.5 mg tablet 5 mg PO QAM 02/28/23 03/05/23 hydrocodone 5 mg-acetaminophen 325 1 tab PO Q6H PRN pain 03/05/23 03/05/23 mg tablet leucovorin calcium 5 mg tablet 5 mg PO DAILY 03/05/23 03/05/23 prednisone 2.5 mg tablet 2.5 mg PO QPM 03/05/23 03/05/23 rosuvastatin 5 mg tablet (Crestor) 5 mg PO DAILY 03/05/23 03/05/23 tizanidine 4 mg capsule 4 mg PO BEDTIME PRN muscle 03/05/23 03/05/23 spasticity Previous Rx's Medication Instructions Recorded diclofenac sodium 75 mg 75 mg PO BID PRN low back pain #20 03/01/23 tablet,delayed release tabs ibuprofen 600 mg tablet 600 mg PO Q6H PRN Moderate Pain 10 03/07/23 days #40 tabs oxycodone-acetaminophen 5 mg-325 1 tab PO Q6H PRN back pain 7 days 03/07/23 mg tablet #28 tabs tizanidine 4 mg tablet 4 mg PO QHS PRN muscle spasticity 03/07/23 7 days #7 tabs Allergies Allergy/AdvReac Type Severity Reaction Status Date / Time PCN AdvReac Intermediate Uncoded 03/01/23 21:47 Review of Systems ROS Status of ROS 10 or more systems reviewed and unremarkable except as noted in history and below [facility] Medical History (Updated 03/27/23 @ 05:17 by Bennett Juarez MD) (02/28/23) Surgical History Family History Father Family history of CHF (congestive heart failure) Family history of cancer Family history of hypertension Family history of myocardial infarction Mother Family history of hypertension Social History Smoking status: Never smoker Second hand tobacco smoke exposure: No Non-prescribed substance use: denies use Previous occupational history: retired Known occupational exposures/hazards: No Highest level of school completed/degree received: high school graduate Do you want help with school or training: No Are you now , , , , never or living with a partner: In a typical week, how many times do you talk on the telephone with family, friends, or neighbors: twice per week How often do you get together with friends or relatives: once per week How often do you attend anglican or jew services: 4 or more times per year Do you belong to any clubs or organizations such as anglican groups unions, fraternal or athletic groups, or school groups: yes Total score: 4 Score interpretation: A score of greater than or equal to 2 indicates the lowest level of social isolation. Little interest or pleasure in doing things: not at all Feeling down, depressed, or hopeless: not at all Feel stressed/tense/nervous/anxious/difficulty sleeping: not at all Due to disability, difficulty making decisions: No Do you think of yourself as: straight/heterosexual Gender Identity: male Exam Constitutional Vital Signs, click to edit/add: Last Vital Signs Temp 98.4 F 03/27/23 02:56 Pulse 91 H 03/27/23 02:56 Resp 18 03/27/23 02:56 BP 175/94 H 03/27/23 02:56 Pulse Ox 97 03/27/23 02:56 O2 Del Method Room Air 03/27/23 02:56 Common normals: no apparent distress, oriented x3, no limitations, healthy appearing, alert and well nourished Eye Common normals: EOMs intact bilaterally and conjunctivae normal Respiratory Common normals: normal respiratory effort, no retractions, no use of accessory muscles and clear to auscultation bilaterally Cardio Common normals: regular rate, regular rhythm, S1 normal heart sound and S2 normal heart sound GI Common normals: Normal to inspection, nondistended, normoactive bowel sounds present and soft to palpation Extremity Common normals: normal to inspection and full ROM Neuro Common normals: oriented x3, CN's II-XII intact bilaterally, moves all extremities, no focal motor deficits and no sensory deficits noted Psych Appearance: grossly normal Course Vital Signs Vital signs: Vital Signs Temperature 98.4 F 03/27/23 02:56 Pulse Rate 91 H 03/27/23 02:56 Respiratory Rate 18 03/27/23 02:56 Blood Pressure 175/94 H 03/27/23 02:56 Pulse Oximetry 97 03/27/23 02:56 Oxygen Delivery Method Room Air 03/27/23 02:56 Temperature 98.4 F 03/27/23 02:56 Pulse Rate 91 H 03/27/23 02:56 Respiratory Rate 18 03/27/23 02:56 Blood Pressure 175/94 H 03/27/23 02:56 Pulse Oximetry 97 03/27/23 02:56 Oxygen Delivery Method Room Air 03/27/23 02:56 MDM - Back Pain/Injury MDM Narrative Medical decision making narrative: patient presents with vague symptoms of feeling light headed after taking pain medication. Also has a groin rash that is likely fungal. labs all WNL. Advised to contact his PCP regarding his sense of light headiness after taking pain medication. Prescribed Lotrisone cream for his rash Lab Data Labs: Lab Results 03/27/23 03/27/23 Range/Units 03:43 04:45 WBC 7.7 (4.0-11.0) 10^3/uL RBC 4.09 L (4.70-6.10) 10^6/uL Hgb 13.4 L (14.0-18.0) g/dL Hct 39.5 L (42.0-54.0) % MCV 96.6 H (80.0-94.0) fL MCH 32.8 (25.9-34.0) pg MCHC 33.9 (29.9-35.2) g/dL RDW 13.4 (11.0-15.0) % Plt Count 156 (150-450) 10^3/uL MPV 10.3 (9.5-13.5) fL Neut % (Auto) 70.5 (43.0-75.0) % Lymph % (Auto) 19.5 L (20.5-60.0) % [place] % (Auto) 6.6 (1.7-12.0) % Eos % (Auto) 2.2 (0.9-7.0) % Baso % (Auto) 0.4 (0.2-2.0) % Neut # (Auto) 5.4 (1.4-6.5) 10^3/uL Lymph # (Auto) 1.5 (1.2-3.8) 10^3/uL [place] # (Auto) 0.5 (0.3-0.8) 10^3/uL Eos # (Auto) 0.2 (0.0-0.7) 10^3/uL Baso # (Auto) 0.0 (0.0-0.1) 10^3/uL Abs Immat Gran (auto) 0.06 H (0.00-0.03) 10^3/uL Imm/Tot Granulo (auto) 0.8 H (0.0-0.5) % Sodium 138 (136-145) mmol/L Potassium 3.8 (3.5-5.1) mmol/L Chloride 103 (98-107) mmol/L Carbon Dioxide 27.7 (21.0-32.0) mmol/L Anion Gap 11.1 BUN 24.0 H (7.0-18.0) mg/dL Creatinine 1.41 H (0.70-1.30) mg/dL Est GFR ( Amer) 59 L (>=60) Est GFR (Non-Af Amer) 48 L (>=60) BUN/Creatinine Ratio 17.0 Glucose 106 (74-106) mg/dL Calcium 8.9 (8.5-10.1) mg/dL Urine Color Lt. yellow (YELLOW) Urine Clarity Clear (CLEAR) Urine pH 5.5 (5.0-9.0) Ur Specific [place] 1.020 (1.005-1.025) Urine Protein Negative (NEG/TRACE) mg/dL Urine Glucose (UA) Negative (NEGATIVE) mg/dL Urine Ketones Negative (NEGATIVE) mg/dL Urine Occult Blood Negative (NEGATIVE) Urine Nitrite Negative (NEGATIVE) Urine Bilirubin Negative (NEGATIVE) Urine Urobilinogen 0.2 (0.2-1.0) EU/dL Ur Leukocyte Esterase Negative (NEGATIVE) Discharge Plan Discharge Chief Complaint: Back Pain/Injury Clinical Impression: Tinea cruris, Light-headedness Patient Disposition: Home, Self-Care Prescriptions / Home Meds: No Action furosemide 20 mg tablet 10 mg PO QDAY PRN (Reason: edema) Rx Instructions: on Tuesdays and Fridays irbesartan-hydrochlorothiazide 300-12.5 mg tablet 1 tab PO DAILY 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 sodium 2.5 mg tablet 12.5 mg PO .weekly Patient Comments: takes on monday pantoprazole 40 mg tablet,delayed release (DR/EC) 40 mg PO DAILY prednisone 2.5 mg tablet 5 mg PO QAM amitriptyline 50 mg tablet 25 mg PO BEDTIME aspirin [Bobo Low Dose Aspirin] 81 mg tablet,delayed release (DR/EC) 81 mg PO BID folic acid 1 mg tablet 1 mg PO DAILY glimepiride [Amaryl] 4 mg tablet 2 mg PO DAILY melatonin 5 mg tablet 5 mg PO DAILY diclofenac sodium 75 mg tablet,delayed release (DR/EC) 75 mg PO BID PRN (Reason: low back pain) Qty: 20 0RF hydrocodone-acetaminophen 5-325 mg tablet 1 tab PO Q6H PRN (Reason: pain) prednisone 2.5 mg tablet 2.5 mg PO QPM leucovorin calcium 5 mg tablet 5 mg PO DAILY tizanidine 4 mg capsule 4 mg PO BEDTIME PRN (Reason: muscle spasticity) rosuvastatin [Crestor] 5 mg tablet 5 mg PO DAILY Rx Instructions: On tuesdays and monday tizanidine 4 mg Tablet 4 mg PO QHS PRN (Reason: muscle spasticity) 7 Days Qty: 7 0RF Rx Instructions: ICD10: s32.ooo lumbar compression fracture ibuprofen 600 mg Tablet 600 mg PO Q6H PRN (Reason: Moderate Pain) 10 Days Qty: 40 0RF oxycodone-acetaminophen 5-325 mg Tablet 1 tab PO Q6H PRN (Reason: back pain) 7 Days Qty: 28 0RF Rx Instructions: icd 10: S32.000 Lumbar compression fracture Instructions: Lightheadedness (ED), Skin Yeast Infection (ED) Additional Instructions: follow up with Dr David tomorrow Stand Alone Forms: Portal Instructions Referrals: Roman David MD [Primary Care Provider] - 1 week
--- NOTE | 2023-03-27 03:51 | PC.NURSE ---
Pt presents to ER with his 1 month after breaking his back Pt states the hospitals have messed up my records Pt states I believe I have been on pain medication for too long, it's making me feel weird Pt states he has been feeling shakey and weak at times but feels okay as of right now Pt sits in a chair at the side of the bed Denies needs at this time
[2023-03-27 03:53] LABS: Basophils Percent Auto 0.4 % (0.2-2.0); Eosinophils Absolute Auto 0.2 10^3/uL (0.0-0.7); Eosinophils Percent Auto 2.2 % (0.9-7.0); Hematocrit 39.5 % (42.0-54.0); Hemoglobin 13.4 g/dL (14.0-18.0); Immature Granulocytes Abs Auto 0.06 10^3/uL (0.00-0.03); Immature Granulocytes Pct Auto 0.8 % (0.0-0.5); Lymphocytes Absolute Auto 1.5 10^3/uL (1.2-3.8); Lymphocytes Percent Auto 19.5 % (20.5-60.0); Mean Corpuscular HGB Conc 33.9 g/dL (29.9-35.2); Mean Corpuscular Hemoglobin 32.8 pg (25.9-34.0); Mean Corpuscular Volume 96.6 fL (80.0-94.0); Mean Platelet Volume 10.3 fL (9.5-13.5); Monocytes Absolute Auto 0.5 10^3/uL (0.3-0.8); Monocytes Percent Auto 6.6 % (1.7-12.0); Neutrophils Absolute Auto 5.4 10^3/uL (1.4-6.5); Neutrophils Percent Auto 70.5 % (43.0-75.0); Platelet Count 156 10^3/uL (150-450); Red Blood Count 4.09 10^6/uL (4.70-6.10); Red Cell Distribution Width 13.4 % (11.0-15.0); White Blood Count 7.7 10^3/uL (4.0-11.0)
[2023-03-27 04:01] LABS: Anion Gap 11.1; Calcium 8.9 mg/dL (8.5-10.1); Carbon Dioxide 27.7 mmol/L (21.0-32.0); Chloride 103 mmol/L (98-107); Estimated GFR (African America 59 (>=60); Estimated GFR (Non-African Ame 48 (>=60); Glucose 106 mg/dL (74-106); Potassium 3.8 mmol/L (3.5-5.1); Sodium 138 mmol/L (136-145)
[2023-03-27 04:51] LABS: Bilirubin Urine NEGATIVE (NEGATIVE); Blood Urine NEGATIVE (NEGATIVE); Clarity Urine CLEAR (CLEAR); Color Urine LT. YELLOW (YELLOW); Glucose Urine UA NEGATIVE (NEGATIVE); Ketones Urine NEGATIVE (NEGATIVE); Leukocyte Esterase Urine NEGATIVE (NEGATIVE); Nitrite Urine NEGATIVE (NEGATIVE); Protein Urine NEGATIVE (NEG/TRACE); Urobilinogen Urine 0.2 EU/dL (0.2-1.0); pH Urine 5.5 (5.0-9.0)
[2023-03-27 04:53] LABS: Urine Microscopic Indicated NO
== END 2023-03-27 05:33 | disposition home or self-care (01) ==
PROVIDERS: Emergency Provider Internal Medicine; PCP Family Medicine
DX: R42 Dizziness and giddiness (principal); B35.6 Tinea cruris; G89.29 Other chronic pain; M54.9 Dorsalgia, unspecified; Z79.899 Other long term (current) drug therapy; Z79.82 Long term (current) use of aspirin
CPT/HCPCS: 36415; 80048; 81003; 85025; 99283

== ENCOUNTER 2023-06-08 09:53 | Outpatient (OUT) | payer MEDICARE, OTHER, SELFPAY ==
[2023-06-08 10:14] LABS: Basophils Absolute Auto 0.1 10^3/uL (0.0-0.1); Basophils Percent Auto 0.7 % (0.2-2.0); Eosinophils Absolute Auto 0.3 10^3/uL (0.0-0.7); Eosinophils Percent Auto 3.4 % (0.9-7.0); Hematocrit 39.7 % (42.0-54.0); Hemoglobin 13.4 g/dL (14.0-18.0); Immature Granulocytes Abs Auto 0.04 10^3/uL (0.00-0.03); Immature Granulocytes Pct Auto 0.5 % (0.0-0.5); Lymphocytes Absolute Auto 1.8 10^3/uL (1.2-3.8); Lymphocytes Percent Auto 24.8 % (20.5-60.0); Mean Corpuscular HGB Conc 33.8 g/dL (29.9-35.2); Mean Corpuscular Hemoglobin 32.1 pg (25.9-34.0); Mean Platelet Volume 10.4 fL (9.5-13.5); Monocytes Absolute Auto 0.6 10^3/uL (0.3-0.8); Monocytes Percent Auto 7.8 % (1.7-12.0); Neutrophils Absolute Auto 4.6 10^3/uL (1.4-6.5); Neutrophils Percent Auto 62.8 % (43.0-75.0); Platelet Count 201 10^3/uL (150-450); Red Blood Count 4.18 10^6/uL (4.70-6.10); Red Cell Distribution Width 13.6 % (11.0-15.0); White Blood Count 7.3 10^3/uL (4.0-11.0)
[2023-06-08 12:15] LABS: Alanine Aminotransferase 35 U/L (16-63); Albumin Globulin Ratio 1.1; Albumin Level 3.6 g/dL (3.4-5.0); Alkaline Phosphatase 105 U/L (46-116); Anion Gap 16.1; Aspartate Amino Transferase 24 U/L (15-37); BUN Creatinine Ratio 16.8; Bilirubin Total 0.9 mg/dL (0.2-1.0); Calcium 8.8 mg/dL (8.5-10.1); Carbon Dioxide 23.6 mmol/L (21.0-32.0); Chloride 99 mmol/L (98-107); Estimated GFR (African America 40 (>=60); Estimated GFR (Non-African Ame 33 (>=60); Globulin 3.4 g/dL; Glucose 214 mg/dL (74-106); Potassium 3.7 mmol/L (3.5-5.1); Sodium 135 mmol/L (136-145)
== END 2023-06-08 09:54 | disposition home or self-care (01) ==
LOC: LAB 09:55
PROVIDERS: PCP Family Medicine
DX: L40.50 Arthropathic psoriasis, unspecified (principal)
CPT/HCPCS: 36415; 80053; 85025

== ENCOUNTER 2023-06-21 10:09 | Outpatient (OUT) | payer MEDICARE, OTHER, SELFPAY ==
[2023-06-21 11:04] LABS: Bilirubin Urine NEGATIVE (NEGATIVE); Blood Urine NEGATIVE (NEGATIVE); Color Urine YELLOW (YELLOW); Glucose Urine UA NEGATIVE (NEGATIVE); Ketones Urine NEGATIVE (NEGATIVE); Leukocyte Esterase Urine NEGATIVE (NEGATIVE); Nitrite Urine NEGATIVE (NEGATIVE); Protein Urine NEGATIVE (NEG/TRACE); Specific Gravity Urine >=1.030 (1.005-1.025); Urobilinogen Urine 0.2 EU/dL (0.2-1.0); pH Urine 5.5 (5.0-9.0)
[2023-06-21 11:10] LABS: Bacteria Urine NONE SEEN #/HPF (NONE SEEN); Clarity Urine SLIGHTLY CLOUDY (CLEAR); Crystals Seen? Seen #/HPF (None Seen); Mucus Urine TRACE (NONE SEEN); RBC Urine NONE SEEN #/HPF (0-2); Squamous Epithelial Cell Urine RARE #/LPF (NONE/RARE); WBC Urine NONE SEEN #/HPF (NONE SEEN)
[2023-06-21 11:11] LABS: Calcium Oxalate Crystals Urine RARE; Cast Seen? NONE SEEN #/LPF (NONE SEEN)
[2023-06-21 12:09] LABS: Prostate Specific Antigen Scrn 2.36 ng/mL (<=4.00)
[2023-06-21 13:02] LABS: Alanine Aminotransferase 37 U/L (16-63); Albumin Level 3.4 g/dL (3.4-5.0); Alkaline Phosphatase 101 U/L (46-116); Anion Gap 13.1; Aspartate Amino Transferase 23 U/L (15-37); BUN Creatinine Ratio 12.8; Bilirubin Total 0.6 mg/dL (0.2-1.0); Calcium 8.9 mg/dL (8.5-10.1); Carbon Dioxide 28.1 mmol/L (21.0-32.0); Chloride 105 mmol/L (98-107); Estimated GFR (African America 59 (>=60); Estimated GFR (Non-African Ame 48 (>=60); Globulin 3.5 g/dL; Glucose 129 mg/dL (74-106); Potassium 4.2 mmol/L (3.5-5.1); Sodium 142 mmol/L (136-145); Total Protein 6.9 g/dL (6.4-8.2)
== END 2023-06-21 10:10 | disposition home or self-care (01) ==
LOC: LAB 10:11
PROVIDERS: PCP Family Medicine; Visit Provider Family Medicine
DX: R30.0 Dysuria (principal); Z12.5 Encounter for screening for malignant neoplasm of prostate; N17.9 Acute kidney failure, unspecified
CPT/HCPCS: 36415; 80053; 81001; 87086; G0103

== ENCOUNTER 2023-07-06 08:55 | Outpatient (REF) | payer MEDICARE, OTHER, SELFPAY ==
--- OUTSIDE RECORDS SUMMARY | 2023-07-06 08:58 | XMS_ITS | CCD ---
Author Name Unknown Address [address] [place] [address] Organization [facility] Care Team Providers Care Box Sealing Inspector Name Role Phone Mayra David Unavailable Unavailable Unavailable Augusta MORA, Dr. Johnnie Adrian Attending Unavailable Hoy, Dr. Mayra Olvera Primary Care Unavail able Liamuinn II, Dr. Johnnie Adrian Referring Unavailable Hoy, Dr. Mayra Olvera Primary Care Unavail able McGuinn II, Dr. Johnnie Adrian Referring Unavailable McGuinn II, Dr. Johnnie Adrian Attending Unavailable Hoy, Dr. Mayra Olvera Primary Care Unavail able Liamuinn II, Dr. Johnnie Adrian Referring Unavailable McGuinn II, Dr. Johnnie Adrian Attending Unavailable HOY ., DR NUNEZ Admitting Unavailable HOY ., DR NUNEZ Attending Unavailable HOY ., DR NUNEZ Primary Care Unavailable HOY ., DR NUNEZ Consulting Unavailable HOY ., DR NUNEZ Admitting Unavailable HOY ., DR NUNEZ Attending Unavailable HOY ., DR NUNEZ Primary Care Unavailable HOY ., DR NUNEZ Consulting Unavailable HOY ., DR NUNEZ Admitting Unavailable HOY ., DR NUNEZ Attending Unavailable HOY ., DR NUNEZ Primary Care Unavailable HOY ., DR NUNEZ Consulting Unavailable TARAWA TERRACE, DR CJ Hernandes Consulting Unavailable HOY ., DR NUNEZ Admitting Unavailable HOY ., DR NUNEZ Attending Unavailable [facility] DR RIVAS Primary Care Unavailable SUNNYY ., DR NUNEZ Consulting Unavailable KWADWO CRUMP Admitting Unavailable KWADWO CRUMP Attending Unavailable LANDON ., DR NUNEZ Primary Care Unavailable KWADWO CRUMP Consulting Unavailable Mayra David Primary Care Physician Nguyễn TENORIO Attending Unavailable Nguyễn TENORIO Attending Unavailable MICHELLE BARRY Attending Unavailable MICHELLE BARRY Admitting Unavailable MAYRA DAVID Primary Care Unavailable MAYRA DAVID Primary Care Unavailable LUIS DANIEL BRUNNER Attending Unavailable LUIS DANIEL BRUNNER Attending Unavailable LUIS DANIEL BRUNNER Attending Unavailable Allergies Allergy Classification Reported Allergen(s) Allergy Type Date of Onset Reaction(s) Facility (11 sources) bee pollen [facility] (14 sources) Penicillins; 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: [Penicillins] Allergy to drug (finding) 2 Anaphylaxis (disorder) [facility] (11 sources) Animal dander - Cats [facility] (1 source) Penicillins Drug allergy (disorder) [facility] (3 sources) Latex; 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: [Latex] Drug allergy 2 Unknown (qualifier value) [facility] Medications Current Medications Medication Drug Class(es) Dates Sig (Normalized) Sig (Original) acetaminophen 325 mg / oxyCODONE hydrochloride 5 mg oral tablet (1 source) Opioid Agonist Start: 03-20-2023 take 1 tablet by mouth every six hours Percocet 5 mg-325 mg oral tablet 1 tab(s), Oral, q6hr, Refill(s) 0 Start Date: 03/20/23 Status: Ordered Humira (12 sources) Tumor Necrosis Factor Sapphire Start: 08-21-2020 inject 1 mg by subcutaneous injection every other week Humira mg, SubCutaneous, q2wk, Refills(s) 0 Start Date: 08/21/20 Status: Ordered Humira Pen KIT U SE DIRECTED. Quantity: 0 Refills: 0 Ordered: 08-Dec-2021 DO Active amitriptyline hydrochloride 25 mg oral tablet (12 sources) Tricyclic Antidepressant Start: 03-26-2014 take 2 tablets by mouth once daily at bedtime Elavil 25 mg Tab 50 mg = 2 tab(s), Oral, Once a day (at bedtime) Start Date: 03/26/14 Status: Ordered take 1 tablet by mouth at bedtim e Elavil 25 MG TABS TAKE 1 TABLET AT BEDTIME. Quantity: 0 Refills: 0 Ordered: 08-Dec-2021 DO Active aspirin 81 mg oral tablet (12 sources) Platelet Aggregation Inhibitor, Nonsteroidal Anti-inflammatory Drug Start: 06-29-2018 take 81 mg by mouth two times weekly aspirin 81 mg, Oral, TueFri, taking 2 times per week, Refills(s) 0, Blood Thinner Start Date: 06/29/18 Status: Ordered take 1 tablet by mouth two times weekly Aspirin EC 81 MG Oral Tablet Delayed Release 1 tablet twice weekly Quantity: 25 Refills: 3 Ordered: 28-Dec-2021 Johnnie Elliott MD Active calcium carbonate 1500 mg oral tablet (1 source) Start: 08-21-2019 take 1 mg by mouth once daily calcium (as carbonate) 600 mg oral tablet mg tab(s), Oral, Daily, Refills(s) 0 Start Date: 08/21/19 Status: Ordered Folate 1 mg Tab (1 source) Start: 08-23-2019 Folate 1 mg Ta b Refills(s) 0 Start Date: 08/23/19 Status: Ordered furosemide 20 mg oral tablet (12 sources) Loop Diuretic Start: 06-29-2018 take 20 mg by mouth once daily Lasix 20 mg, Oral, Daily, Refills(s) 0, diuretic/water pill Start Date: 06/29/18 Status: Ordered glimepiride 2 mg oral tablet (1 source) Sulfonylurea Start: 03-20-2023 take 1 tablet by mouth once daily glimepiride 2 mg Tab 2 mg = 1 tab(s), Oral, Daily Start Date: 03/20/23 Status: Ordered ibuprofen 600 mg oral tablet (1 source) Nonsteroidal Anti-inflammatory Drug Start: 03-20-2023 take 600 mg by mouth every six hours ibuprofen 600 mg, Oral, q6hr Start Date: 03/20/23 Status: Ordered irbesartan 300 mg oral tablet (1 source) Angiotensin 2 Receptor Sapphire Start: 08-23-2019 irbesartan 300 mg Tab Refills(s) 0 Start Date: 08/23/19 Status: Ordered metFORMIN hydrochloride 500 mg oral tablet (12 sources) Biguanide Start: 06-29-2018 take 500 mg by mouth twice daily Glucophage 500 mg, Oral, BID, Refills(s) 0, Blood glucose Start Date: 06/29/18 Status: Ordered take 2 tablets by mouth once jessica ly metFORMIN HCl - 500 MG Oral Tablet TAKE 2 TABLETS DAILY. Quantity: 0 Refills: 0 Ordered: 1-Sesar-2022 DO Active Methotrexate (12 sources) Folate Analog Metabolic Inhibitor Start: 08-23-2019 Trexall 2.5 mg Tab Refills(s) 0 Start Date: 08/23/19 Status: Ordered take 4 tablets by mouth every we ek Methotrexate 2.5 MG Oral Tablet TAKE 4 TABLETS WEEKLY. Quantity: 0 Refills: 0 Ordered: 28-Dec-2021 DO Active take 1 tablet by mouth every wee k Methotrexate Sodium 2.5 MG Oral Tablet TAKE 1 TABLET WEEKLY. Quantity: 0 Refills: 0 Ordered: 08-Dec-2021 DO Active 24 hr oxybutynin chloride 5 mg extended release oral tablet (1 source) Cholinergic Muscarinic Antagonist Start: 03-20-2023 take 1 tablet by mouth at bedtime oxybutynin 5 mg ER Tab 5 mg = 1 tab(s), Oral, Bedtime, # 30 tab(s), Refills(s) 8, Pharmacy: [facility]/pharmacy #[id number], 175, cm, 03/20/23 14:33:00 EDT, Height/Length Dosing, 112, kg, 03/20/23 14:33:00 EDT, Weight Dosing Start Date: 03/20/23 Status: Ordered pantoprazole 40 mg extended release oral tablet (12 sources) Proton Pump Inhibitor Start: 06-29-2018 take 40 mg by mouth once daily Protonix 40 mg, Oral, Daily, Refills(s) 0, Control of stomach acid Start Date: 06/29/18 Status: Ordered take 1 tablet by mouth once raymundo y Pantoprazole Sodium 40 MG Oral Tablet Delayed Release TAKE 1 TABLET DAILY. Quantity: 0 Refills: 0 Ordered: 08-Dec-2021 DO Active predniSONE 2.5 mg oral tablet (1 source) Start: 03-20-2023 take 1 tablet by mouth once daily predniSONE 2.5 mg oral tablet 2.5 mg = 1 tab(s), Oral, Daily Start Date: 03/20/23 Status: Ordered rosuvastatin calcium 5 mg oral tablet (12 sources) HMG-CoA Reductase Inhibitor Start: 12-01-2020 take 1 tablet by mouth at bedtime rosuvastatin 5 mg Tab TAKE 1 TABLET BY MOUTH AT BEDTIME Start Date: 12/01/20 Status: Ordered tiZANidine 4 mg oral tablet (1 source) Central alpha-2 Adrenergic Agonist Start: 03-20-2023 take 1 tablet by mouth every eight hours tiZANidine 4 mg Tab 4 mg = 1 tab(s), Oral, q8hr Start Date: 03/20/23 Status: Ordered Vitamin D3 (1 source) Start: 06-29-2018 Vitamin D3 Ora l, Daily, Refills(s) 0, Prophylaxis Start Date: 06/29/18 Status: Ordered Completed/Discontinued Medications Medication Drug Class(es) Dates Sig (Normalized) Sig (Original) Calcium (11 sources) Phosphate Binder, Calcium Calcium + D TABS TAKE 1 TABLET DAILY. Quantity: 0 Refills: 0 Ordered: 08-Dec-2021 DO Active DULoxetine 30 mg delayed release oral capsule (9 sources) Serotonin and Norepinephrine Reuptake Inhibitor take 1 tablet by mouth once daily Cymbalta 30 MG Oral Capsule Delayed Release Particles one tablet daily Quantity: 0 Refills: 0 Ordered: 28-Dec-2021 DO Active folic acid 1 mg oral tablet (11 sources) take 1 tablet by mouth once daily Folic Acid 1 MG Oral Tablet TAKE 1 TABLET DAILY DIRECTED. Quantity: 0 Refills: 0 Ordered: 08-Dec-2021 DO Active hydroCHLOROthiazide 12.5 mg / irbesartan 300 mg oral tablet (11 sources) Thiazide Diuretic, Angiotensin 2 Receptor Sapphire Start: 01-25-2022 take 1 tablet by mouth once daily Irbesartan-hydr oCHLOROthiazide 300-12.5 MG Oral Tablet TAKE 1 TABLET BY MOUTH DAILY Quantity: 90 Refills: 3 Ordered: 26-Jan-2022 Johnnie Elliott MD Start : 25-Jan-2022 Active take 1 tablet by rasta once daily Irbesartan-hydroCHLOROthiazide 300-12.5 MG Oral Tablet TAKE 1 TABLET ONCE DAILY. Quantity: 0 Refills: 0 Ordered: 08-Dec-2021 DO Active Magnesium (11 sources) Magnesium CAPS TAKE 70 MG CAPSULES 1 DAILY Quantity: 0 Refills: 0 Ordered: 08-Dec-2021 DO Active sildenafil 20 mg oral tablet (1 source) Phosphodiesterase 5 Inhibitor Start: 08-21-19 take 5 tablets by mouth once daily sildenafil 20 mg oral tablet 20 mg = 1 tab(s), Oral, Daily, Take one hour prior to sexual intercourse, do not exceed 5 tabs at once, # 30 tab(s), Refills(s) 0 Start Date: 08/21/19 Status: Ordered Vitamin B 12 TABS (11 sources) Vitamin B 12 TAB S TAKE 1 TABLET DAILY. Quantity: 0 Refills: 0 Ordered: 08-Dec-2021 DO Active Problems Active Problems Problem Classification Problem Date Documented Da te Episodic/Chronic Abdominal pain (1 source) Epigastric pain 12-01-2020 Episodic Calculus of urinary tract (3 sources) History of calculus of kidney; 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: [Personal history of urinary calculi] Onset: 3 Episodic Cardiac dysrhythmias (8 sources) Bradycardia; 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: [Other specified cardiac dysrhythmias] Onset: 2 Episodic Conditions associated with dizziness or vertigo (11 sources) Dizziness; 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: [Dizziness and giddiness] Episodic Coronary atherosclerosis and other heart disease (20 sources) Angina pectoris; 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: [Other and unspecified angina pectoris] Chronic Deficiency and other anemia (1 source) Anemia, unspecified; 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: [ANEMIA UNSPECIFIED] Onset: 3 Episodic Diabetes mellitus without complication (5 sources) Type 2 diabetes mellitus without complications; 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: [Diabetes mellitus] Onset: 2 Chronic Diabetes mellitus without complication (1 source) Other abnormal glucose; 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: [OTHER ABNORMAL GLUCOSE] Onset: 3 Episodic Disorders of lipid metabolism (12 sources) Hyperlipidemia; 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: [Other and unspecified hyperlipidemia] Onset: 3 Chronic Esophageal disorders (1 source) Gastroesophageal reflux disease 08-21-2019 Chronic Essential hypertension (11 sources) Benign essential hypertension; 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: [Benign essential hypertension] Chronic Genitourinary symptoms and ill-defined conditions (5 sources) Urgent desire to urinate; 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: [Urgency of urination] Onset: 3 Episodic Hyperplasia of prostate (3 sources) Benign prostatic hyperplasia without lower urinary tract symptoms; 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: [Benign prostatic hypertrophy with outflow obstruction] Onset: 2 Chronic Inflammatory conditions of male genital organs (1 source) Prostatitis 08-21-2019 Episodic Malaise and fatigue (15 sources) Fatigue; 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: [Other malaise and fatigue] Onset: 3 Episodic Nausea and vomiting (1 source) Nausea and vomiting 12-01-2020 Episodic Nutritional deficiencies (1 source) Vitamin D deficiency, unspecified; 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: [VITAMIN D DEFICIENCY UNSPECIFIED] Onset: 3 Chronic Osteoarthritis (2 sources) Primary osteoarthritis, unspecified site; 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: [Primary osteoarthritis, unspecified site] Onset: 3 Chronic Other connective tissue disease (13 sources) Polymyalgia rheumatica; 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: [Polymyalgia rheumatica] Onset: 3 08-23-2019 Chronic Other connective tissue disease (1 source) Polymyalgia rheumatica; 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: [Polymyalgia rheumatica] Onset: 2 Chronic Other gastrointestinal disorders (1 source) 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; 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: [IRRITABLE BOWEL SYND W/O DIARRHEA] Onset: 2 Chronic Other infections; including parasitic (11 sources) Personal history of other infectious and parasitic diseases; 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: [Personal history of COVID-19] Episodic Other inflammatory condition of skin (1 source) Psoriasis 08-23-2019 Chronic Other inflammatory condition of skin (2 sources) Arthropathic psoriasis, unspecified; 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, unspecified] Onset: 3 Chronic Other liver diseases (1 source) Fatty (change of) liver, not elsewhere classified; 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: [FATTY CHANGE LIVER NEC] Onset: 2 Chronic Other liver diseases (1 source) Steatosis of liver 12-01-2020 Chronic Other lower respiratory disease (11 sources) Dyspnea on exertion; 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: [Shortness of breath] Episodic Other lower respiratory disease (11 sources) Dyspnea; 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: [Other respiratory abnormalities] Episodic Other male genital disorders (1 source) Male erectile dysfunction, unspecified; 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: [Erectile dysfunction] Onset: 3 Chronic Other male genital disorders (1 source) Impotence 08-21-2020 Chronic Other nervous system disorders (1 source) Hereditary and idiopathic neuropathy, unspecified; 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: [HEREDITARY IDIOPATH NEUROPATHY UNS] Onset: 2 Chronic Other non-traumatic joint disorders (2 sources) Polyarthritis, unspecified; 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: [Polyarthritis, unspecified] Onset: 2 Chronic Other nutritional; endocrine; and metabolic disorders (12 sources) Obesity; 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: [Obesity, unspecified] 03-26-2014 Chronic Other nutritional; endocrine; and metabolic disorders (1 source) Body mass index 30+ - obesity 12-01-2020 Chronic Other nutritional; endocrine; and metabolic disorders (1 source) Loss of appetite 12-01-2020 Episodic Other nutritional; endocrine; and metabolic disorders (1 source) Weight loss 12-01-2020 Episodic Other screening for suspected conditions (not mental disorders or infectious disease) (7 sources) Encounter for screening for malignant neoplasm of prostate; 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: [Elevated prostate specific antigen [PSA]] Onset: 2 Episodic Pathological fracture (1 source) Age-related osteoporosis with current pathological fracture, vertebra(e), initial encounter for fracture; 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: [Age-related osteoporosis with current pathological fracture, vertebra(e), initial encounter for fracture] Onset: 3 Episodic Residual codes; unclassified (11 sources) Sleep apnea; 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: [Unspecified sleep apnea] Chronic Residual codes; unclassified (1 source) Encounter for procedure for purposes other than remedying health state, unspecified; 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: [Encounter for procedure for purposes other than remedying health state, unspecified] Onset: 3 Episodic Screening and history of mental health and substance abuse codes (12 sources) Ex-smoker; 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: [Personal history of tobacco use] 08-23-2019 Episodic Comment on above: Quit: 1991; Unclassified (1 source) Drug therapy finding 08-23-2019 Unclassified (1 source) [facility] (current) use of antimetabolite agent; 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: [intermediate designer (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) use of antimetabolite agent] Onset: 2 Past or Other Problems Problem Classification Problem Date Documented Da te Episodic/Chronic Other aftercare (2 sources) 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 Also Options explained to Patient, who expressed understanding Normal [facility] 36 Pt called (very anxious) to let you know that the Nephrology office can not see him until 08/01/23. Normal [facility] Orders Onlyon 06-13-2023 Orders Only [id number] Brittany Coburn 1940 M Date Provider Department Center 06/13/2023 Diane-LUIS DANIEL BRUNNER UTCF RHEUM UTCF No family history on file Normal [facility] Telephoneon 06-13-2023 Telephone [id number] Brittany Coburn 1940 M Date Provider Department Center 06/13/2023 [id number]-THIERRYALLAMIGUEL Hernandez RHC RHEUM Eloise Heal No family history on file Normal [facility] 36on 06-09-2023 36 Could you please shayla l patient Normal [facility] Orders Onlyon 06-09-2023 Orders Only [id number] Brittany Coburn 1940 M Date Provider Department Center 06/09/2023 [id number] RHEUM Eloise Heal No family history on file Normal [facility] FLUORO FOR SURGICAL PROCEDUR ESon 04-05-2023 FLUORO FOR SURGICAL PROCEDURES RADRPT Radiology exam is complete. No Radiologist dictation. Please follow up with ordering provider. Final result Normal [facility] SURGICALon 04-05-2023 SURGICAL [facility] TRAVIS QUINONEZ [id number] Assoc. Page 1 of [address] [place] [address] PROC: 04/05/2023 [facility] RECV: 04/06/2023 [address] RPTD: 04/07/2023 [place] [address] LOC: [facility] ACCT: [id number] SEX: M : 1940 AGE: 82 Y PATHOLOGY REPORT ATTN: NON-STAFF PHYSICIAN REQ: MICHELLE BARRY Copies To: MAYRA DAVID Clinical Information: AGE-RELATED OSTEOPOROSIS WITH CURRENT PATHOLOGICAL FRACTURE OF VERTEBRA, INITIAL ENCOUNTER FINAL DIAGNOSIS: L1, vertebral body, bone core biopsies: Crushed bone and blood clot. Negative for malignancy/neoplasia. Specimen: BIOPSY OF BONE, L1 VERTEBRAL BODY Gross Examination: The container is labeled Travis Almas, L1 vertebral body biopsy. Received in formalin is mainly blood clot aggregating to 1 x 0.8 x 0.2 cm. The specimen is entirely submitted. 1 ns. PCF/DKR:v_aldos_i Microscopic Examination: Microscopic examination demonstrates crush bone admixed with blood clot. Within the crushed bone, there is evidence of trilineage hematopoiesis. Malignancy/neoplasia is not seen. Because of the extensive crush artifact, immunohistochemical stains for pancytokeratin and CAM 5.2 were performed to help exclude a metastatic carcinoma. The controls are adequate. The immunohistochemical stains demonstrate no significant positive staining for tumor cells. *This test was developed and its performance characteristics determined by [facility]. It has not been cleared or approved by the U.S. Food and Drug Administration. Pursuant to the requirements of CLIA, this laboratory has established and verified the test's accuracy and precision. Additional information about this type of test is available upon request. [id number] REJI FITZGERALD M.D., F.C.A.P. [facility]/ [facility] Printed on: 04/07/2023 [address] [place], [place] [address] Original print date: 04/07/2023 Normal [facility] Surgical Pathology Requeston 04-05-2023 MALLIKA SEE BELOW [facility] Comment on above: Order Comment: Age-r elated osteoporosis with current pathological fracture of vertebra, initial encounter (HCC) [M80.08XA] Pre-op diagnosis: L1 Vertebral body Biopsy Result Comment: [facility] ALMASTRAVIS HERCULES [id number]\X0D0A\Assoc. Page 1 of 1\X0D0A\[address]\X0D0A\[place] [address]\X0D0A\ PROC: 04/05/2023\X0D0A\[facility] RECV: 04/06/2023\X0D0A\[address] RPTD: 04/07/2023\[place]0D0A\[place] [address]\X0D0A\ LOC: [facility]\X0D0A\ ACCT: [id number] SEX: M\X0D0A\ : 1940 AGE: 82 Y\X0D0A\X0D0A\ PATHOLOGY REPORT\X0D0A\ ATTN: NON-STAFF PHYSICIAN\X0D0A\ REQ: MICHELLE MENDOZAN\X0D0A\X0D0A\X0D0A\Copies To: MAYRA DAVID\X0D0A\X0D0A\X0D0A\Clinical Information: AGE-RELATED OSTEOPOROSIS WITH CURRENT\X0D0A\PATHOLOGICAL FRACTURE OF VERTEBRA, INITIAL ENCOUNTER\X0D0A\X0D0A\FINAL DIAGNOSIS:\X0D0A\L1, vertebral body, bone core biopsies:\X0D0A\ Crushed bone and blood clot.\X0D0A\ Negative for malignancy/neoplasia.\X0D0A\X0D0A\Specimen:\X0D0A\BIOPSY OF BONE, L1 VERTEBRAL BODY\X0D0A\X0D0A\X0D0A\Gross Examination:\X0D0A\The container is labeled Travis Coburn, L1 vertebral body biopsy.\X0D0A\Received in formalin is mainly blood clot aggregating to 1 x 0.8 x 0.2\X0D0A\cm. The specimen is entirely submitted. 1 ns. PCF/DKR:v_aldos_i\X0D0A\X0D0A\Microscopic Examination:\X0D0A\Microscopic examination demonstrates crush bone admixed with blood\X0D0A\clot. Within the crushed bone, there is evidence of trilineage\X0D0A\hematopoiesis. Malignancy/neoplasia is not seen. Because of the\X0D0A\extensive crush artifact, immunohistochemical stains for pancytokeratin\X0D0A\and CAM 5.2 were performed to help exclude a metastatic carcinoma. The\X0D0A\controls are adequate. The immunohistochemical stains demonstrate no\X0D0A\significant positive staining for tumor cells.\X0D0A\X0D0A\*This test was developed and its performance characteristics determined\X0D0A\by [facility]. It has not been cleared or\X0D0A\approved by the U.S. Food and Drug Administration. Pursuant to the\X0D0A\requirements of CLIA, this laboratory has established and verified the\X0D0A\test's accuracy and precision. Additional information about this type\X0D0A\of test is available upon request.\X0D0A\X0D0A\00301\X0D0A\[id number]\X0D0A\07918\X0D0A\X0D0A\ X0D0A\ \X0D0A\ REJI FITZGERALD M.D., F.C.A.P.\X0D0A\X0D0A\X0D0A\[place]/ [facility] Printed on: 04/07/2023\X0D0A\[address]\X0D0A\[place], [place] [address]\X0D0A\Original print date: 04/07/2023 Performed By: #### 1 [id number] #### [facility] See Report Ambulatory Visit Summaryon 0 03-20-2023 Ambulatory Visit Summary TRAVIS COBURN Vicky :1940 Visit Date:03/20/2023 Ambulatory Visit Instructions Your Diagnosis Nocturia Urinary urgency BPH with urinary obstruction History of kidney stones Impotence Tests Performed Urnls Dip Stick Auto w/o Microscopy POC [id number] Your Care Team Attending Physician - Nguyễn TENORIO MD Primary Care Physician - Mayra David MD This Is Your Medications List oxybutynin (oxybutynin 5 mg ER Tab) Contact prescribing physician if questions or concerns acetaminophen-oxycodone (Percocet 5 mg-325 mg oral tablet) adalimumab (Humira) amitriptyline (Elavil 25 mg Tab) aspirin calcium carbonate (calcium (as carbonate) 600 mg oral tablet) cholecalciferol (Vitamin D3) folic acid (Folate 1 mg Tab) furosemide (Lasix) glimepiride (glimepiride 2 mg Tab) ibuprofen irbesartan (irbesartan 300 mg Tab) metformin (Glucophage) 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 (Trexall 2.5 mg Tab) pantoprazole (Protonix) predniSONE (predniSONE 2.5 mg oral tablet) rosuvastatin (rosuvastatin 5 mg Tab) sildenafil (sildenafil 20 mg oral tablet) tizanidine (tiZANidine 4 mg Tab) Procedures Performed right knee arthroscopy (04/09/2014), Cystoscopic removal of ureteric stent (02/25/2003), Arthroscopic knee operation, Colonoscopy, Cystoscopy, Cystoscopy, Esophagogastroduodenosc opy, ESWL - Extracorporeal shockwave lithotripsy for renal calculus, H/O repair of rotator cuff..., heart catheterization, Hemorrhoidectomy, Prostate Surgery, Repair of elbow, Shoulder Surgery. Discharge Vitals Heart Rate (Peripheral) 86 Blood Pressure 150/92 Height 69 in Height 175 cm Weight 246.4 lb Weight 112 kg BMI 36.57 What to do next Scheduled Follow-Up Appointments Monday. 2023 12:45 PM EDT With: MIRIAN TURNER, Nguyễn Peter Where: [facility] Patient Educationon 03-20-20 Patient Education Urology Benign Prostatic Hyperplasia Benign prostatic hyperplasia (BPH) is an enlarged prostate gland that is caused by the normal aging process. The prostate may get bigger as a man gets older. The condition is not caused by cancer. The prostate is a walnut-sized gland that is involved in the production of semen. It is located in front of the rectum and below the bladder. The bladder stores urine. The urethra carries stored urine out of the body. An enlarged prostate can press on the urethra. This can make it harder to pass urine. The buildup of urine in the bladder can cause infection. Back pressure and infection may progress to bladder damage and kidney (renal) failure. What are the causes? This condition is part of the normal aging process. However, not all men develop problems from this condition. If the prostate enlarges away from the urethra, urine flow will not be blocked. If it enlarges toward the urethra and compresses it, there will be problems passing urine. What increases the risk? This condition is more likely to develop in men older than 50 years. What are the signs or symptoms? Symptoms of this condition include: ? Getting up often during the night to urinate. ? Needing to urinate frequently during the day. ? Difficulty starting urine flow. ? Decrease in size and strength of your urine stream. ? Leaking (dribbling) after urinating. ? Inability to pass urine. This needs immediate treatment. ? Inability to completely empty your bladder. ? Pain when you pass urine. This is more common if there is also an infection. ? Urinary tract infection (UTI). How is this diagnosed? This condition is diagnosed based on your medical history, a physical exam, and your symptoms. Tests will also be done, such as: ? A post-void bladder scan. This measures any amount of urine that may remain in your bladder after you finish urinating. ? A digital rectal exam. In a rectal exam, your health care provider checks your prostate by putting a lubricated, gloved finger into your rectum to feel the back of your prostate gland. This exam detects the size of your gland and any abnormal lumps or growths. ? An exam of your urine (urinalysis). ? A prostate specific antigen (PSA) screening. This is a blood test used to screen for prostate cancer. ? An ultrasound. This test uses sound waves to electronically produce a picture of your prostate gland. Your health care provider may refer you to a specialist in kidney and prostate diseases (urologist). How is this treated? Once symptoms begin, your health care provider will monitor your condition (active surveillance or watchful waiting). Treatment for this condition will depend on the severity of your condition. Treatment may include: ? Observation and yearly exams. This may be the only treatment needed if your condition and symptoms are mild. ? Medicines to relieve your symptoms, including: ? Medicines to shrink the prostate. ? Medicines to relax the muscle of the prostate. ? Surgery in severe cases. Surgery may include: ? Prostatectomy. In this procedure, the prostate tissue is removed completely through an open incision or with a laparoscope or robotics. ? Transurethral resection of the prostate (TURP). In this procedure, a tool is inserted through the opening at the tip of the penis (urethra). It is used to cut away tissue of the inner core of the prostate. The pieces are removed through the same opening of the penis. This removes the blockage. ? Transurethral incision (TUIP). In this procedure, small cuts are made in the prostate. This lessens the prostate's pressure on the urethra. ? Transurethral microwave thermotherapy (TUMT). This procedure uses microwaves to create heat. The heat destroys and removes a small amount of prostate tissue. ? Transurethral needle ablation (TUNA). This procedure uses radio frequencies to destroy and remove a small amount of prostate tissue. ? Interstitial laser coagulation (ILC). This procedure uses a laser to destroy and remove a small amount of prostate tissue. ? Transurethral electrovaporization (TUVP). This procedure uses electrodes to destroy and remove a small amount of prostate tissue. ? Prostatic urethral lift. This procedure inserts an implant to push the lobes of the prostate away from the urethra. Follow these instructions at home: ? Take [id number] and prescription medicines only as told by your health care provider. ? Monitor your symptoms for any changes. Contact your health care provider with any changes. ? Avoid drinking large amounts of liquid before going to bed or out in public. ? Avoid or reduce how much caffeine or alcohol you drink. ? Give yourself time when you urinate. ? Keep all follow-up visits. This is important. Contact a health care provider if: ? You have unexplained back pain. ? Your symptoms do not get better with treatment. ? You develop side effects from the medicine (more content not included)... Normal [facility] Urology Office/Clinic Noteon 03-20-2023 Urology Office/Clinic Note Chief Complaint 1 year follow up HPI Staff 1 year follow up w/PSA. Previous DX: BPH with urinary obstruction, urinary urgency, HX of kidney stones, nocturia, impotence. PSA was done 06/18/21 1.34.* Due to patients age will stop checking PSA levels.* *Oxybutynin ER 5mg therapy, Sildenafil 100 mg PRN. Pt states he had an intensional fall due to fish liver sorter almost tilting over so pt had to jump off and he landed on his back, this happened about 3 weeks ago, pt had a cath placed for two days when he was in the hospital Dysuria: denies pain or burning Incomplete bladder emptying: denies Hematuria: denies visible blood Frequency: moderate intermittent Urgency: yes sometimes Nocturia: 2x a night due to drinking a lot of water Stream: denies hesitancy, denies weak stream Leaking: denies Post void dripping: yes Wearing pads/ Depends: denies Urge incontinence: denies Stress incontinence: denies Incontinence without Sensory Awareness: denies Abdominal pain: denies Flank pain: denies Sexual complaints: denies History of Present Illness Tests reviewed: reviewed UA I have reviewed the previous health record information and history for this patient from Dr. Tenorio. I have reviewed and verified the staff HPI to be accurate for this encounter. There have been no associated fever, chills, flank pain, or blood in the urine. Denies any urinary infections since last encounter. Review of Systems PHQ Score Initial Depression Screen Score: 0 ROS - Provider Constitutional: denies weight loss, denies hot flashes. Eyes: denies eye problems. Gastrointestinal: denies nausea, denies vomiting. Cardiovascular: denies chest pain or angina. Integumentary: no dryness Musculoskeletal: denies musculoskeletal symptoms. ENMT: denies otolaryngeal symptoms. Respiratory: no shortness of breath. Heme/Lymph: denies easy bleeding tendency, denies easy bruising tendency. Psychiatric: no confusion, no anxiety. Genitourinary: denies dysuria, denies hematuria, denies discharge, denies urinary frequency, denies urinary hesitancy, denies nocturia, denies incontinence, denies genital sores, denies decreased libido, and denies erectile dysfunction. Physical Exam Vitals & Measurements HR: 86(Peripheral) BP: 150/92 HT: 69 in HT: 175 cm WT: 112 kg WT: 246.4 lb BMI: 36.57 General Appearance: alert, no distress, well nourished, well developed male. Genitourinary: normal scrotum, normal testes, normal urethra, normal epididymis, normal vas deferens/spermatic cord. Flank Pain: none. Bladder: nonpalpable. Assessment/Plan 1. Nocturia (R35.1: Nocturia) Continues taking Oxybutynin 5mg ER. This has been only once in a while, not steadily. Reports he has not been taking this regularly. Gets up 2-3x/night. Educated pt the medication will improve sxs after 2 months of taking it. Pt agrees to continue taking Oxybutynin. Refill sent today. Follow up in 6 months or sooner if needed. All questions/concerns were discussed. Pt to call the office if he encounters any issues prior. Pt acknowledges understanding. 2. Urinary urgency (R39.15: Urgency of urination) Pt states he had a catheter placed for 2 days about a month ago due to frequency while in the ER after falling off of his fish liver sorter and injuring his back. Reports he has had increased frequency recently and is able to make it to the bathroom during the day. States urgency is only bothersome when standing. 3. BPH with urinary obstruction (N40.1: Benign prostatic hyperplasia with lower urinary tract symptoms) UA today negative for blood and infection. Pt is not currently taking any prostate medications. 4. History of kidney stones (Z87.442: Personal history of urinary calculi) Denies any stone episodes since last OV. 5. Impotence (N52.9: Male erectile dysfunction, unspecified) Continues taking Sildenafil 20mg PRN. Follow-up With When Contact Information MIRIAN TURNER, Nguyễn Peter, NASEEM In 6 months [facility] [address], [place] [address] [phone] Additional Instructions: Patient Education Benign Prostatic Hyperplasia I, Jackeline Graff, personally scribed for Dr. Tenorio on 03/20/2023 15:38:16. . Documentation recorded by the scribeJackeline, accurately reflects the services(s) I performed and decisions made by me. Authenticated by Dr. Tenorio on 03/20/2023 15:41:05. Problem List/Past Medical History Ongoing Abnormal biliary HIDA scan Abnormal gallbladder ultrasound Anticoagulated BMI 33.0-33.9,adult BPH with urinary obstruction Diabetes Epigastric pain Former smoker Gastroesophageal reflux Hepatic steatosis History of kidney stones Impotence Kidney stones Loss of appetite Nausea with vomiting Nocturia Obesity 09-JAN-2014 12:37:00<$> Polymyalgia rheumatica Prostatitis Psoriasis Urinary frequency Urinary urgency Weight loss Historical No qualifying data Procedure/ (more content not included)... Normal [facility] Comment on above: Result Comment: Elec tronically Signed By: Nguyễn TENORIO MD\.br\Date and Time Signed: 03/20/23 15:41 EDT\.br\Electronically Co-Signed By: Jackeline Graff\Date and Time Co-Signed: 03/20/23 15:38 EDT 36on 03-09-2023 36 Orders faxed w/ dx code [facility] 36on 03-07-2023 36 Person from [facility] called to states ICD-10 code (current code on order Z79.631) on blood work order is not being accepted by patient's medicare insurance. They would need a new order w/ a new dx code. I can fax new order to below number when completed [facility] Telephoneon 03-07-2023 Telephone [phone] AlmasBrittany marielle Perry 1940 [facility] Provider Department Center 03/07/2023 YOUSUF DUBON [facility] RHEUM [facility] No family history on file Reason for Visit and Comments: Med Refill [[id number]] [facility] Follow-Upon 02-23-2023 Follow-Up [id number] Brittany Coburn 1940 [facility] Provider Department Center 02/23/2023 LUIS DANIEL HAYNES R[facility] No family history on file Level of Service:44381 CO OFFICE/OUTPATIENT ESTABLISHED MOD MDM 30-39 MIN Reason for Visit and Comments: Follow-up [[id number]] - 4 mo follow up psoriatic RA polymayalgia rheumatica [facility] 36on 11-18-2022 36 The patient will nee d new prescription [facility] 36 Pt would like to go back on Prednisone with Methotrexate. [facility] Telephoneon 11-18-2022 Telephone [phone] AlmasBrittany palomares Vicky 1940 M Date Provider Department Center 11/18/2022 LUIS DANIEL HAYNES UTCF RHEUM UTCF No family history on file [facility] Follow-Upon 10-27-2022 Follow-Up [id number] Brittany Coburn 1940 Date Provider Department Center 10/27/2022 LUIS DANIEL HAYNES R[facility] R[facility] No family history on file Level of Service:15908 CO OFFICE/OUTPATIENT ESTABLISHED MOD MDM 30-39 MIN Reason for Visit and Comments: Follow-up [[id number]] - DISCUSS MEDS Normal [facility] INSULINon 10-26-2022 Insulin 34.8 uIU/mL Critically high 2.6-24.9 [facility] Comment on above: Performed By: #### C BC #### [facility] [address] [address] [address] Layla Barrera CBC AUTO DIFFon 10-25-2022 BASO # 0.0 103/ul Normal 0.0-0.1 [facility] Comment on above: Performed By: #### C BC #### [facility] [address] [place] [address] Dr. Layla Barrera Basophils/100 WBC (Bld) 0.6 % Normal 0.2-2.0 [facility] Comment on above: Performed By: #### C BC #### [facility] [address] [place] [address] Dr. Layla Barrera EO # 0.3 103/ul Normal 0.0-0.7 [facility] Comment on above: Performed By: #### C BC #### [facility] [address] [place] [address] Dr. Layla Barrera Eosinophils/100 WBC (Bld) 4.2 % Normal 0.9-7.0 [facility] Comment on above: Performed By: #### C BC #### [facility] [address] [place] [address] Dr. Layla Barrera Erythrocyte distribution width (RBC) [Ratio] 13.6 % Normal 11.0-15.0 [facility] Comment on above: Performed By: #### C BC #### [facility] [address] [place] [address] Dr. Layla Barrera Hematocrit (Bld) [Volume fraction] 42.6 % Normal 42.0-54.0 [facility] Comment on above: Performed By: #### C BC #### [facility] [address] [place] [address] Dr. Layla Barrera Hemoglobin (Bld) [Mass/Vol] 14.7 g/dL Normal 14.0-18.0 [facility] Comment on above: Performed By: #### C BC #### [facility] [address] [place] [address] Dr. Layla Barrera IG # 0.02 10e3/ul Normal 0.00-0.03 [facility] Comment on above: Performed By: #### C BC #### [facility] [address] [place] [address] Dr. Layla Barrera IG % 0.3 % Normal 0.0-0.5 [facility] Comment on above: Performed By: #### C BC #### [facility] [address] [place] [address] Dr. Layla Barrera LYMPH # 2.1 103/ul Normal 1.2-3.8 [facility] Comment on above: Performed By: #### C BC #### [facility] [address] [place] [address] Dr. Layla Barrera Lymphocytes/100 WBC (Bld) 30.1 % Normal 20.5-60.0 [facility] Comment on above: Performed By: #### C BC #### [facility] [address] [place] [address] Dr. Layla Barrera MANUAL DIFF REQ NO Normal [facility] Comment on above: Performed By: #### C BC #### [facility] [address] [place] [address] Dr. Layla Barrera MCH (RBC) [Entitic mass] 32.1 pg Normal 25.9-34.0 [facility] Comment on above: Performed By: #### C BC #### [facility] [address] [place] [address] Dr. Layla Barrera MCHC (RBC) [Mass/Vol] 34.5 g/dL Normal 29.9-35.2 [facility] Comment on above: Performed By: #### C BC #### [facility] [address] [place] [address] Dr. Layla Barrera MCV (RBC) [Entitic vol] 93.0 fL Normal 80.0-94.0 [facility] Comment on above: Performed By: #### C BC #### [facility] [address] [place] [address] Dr. Layla Barrera MONO # 0.6 103/ul Normal 0.3-0.8 [facility] Comment on above: Performed By: #### C BC #### [facility] [address] [place] [address] Dr. Layla Barrera Monocytes/100 WBC (Bld) 8.5 % Normal 1.7-12.0 [facility] Comment on above: Performed By: #### C BC #### [facility] [address] [place] [address] Dr. Layla Barrera NEUT # 3.9 103/ul Normal 1.4-6.5 [facility] Comment on above: Performed By: #### C BC #### [facility] [address] [place] [address] Dr. Layla Barrera Neutrophils/100 WBC (Bld) 56.3 % Normal 43.0-75.0 [facility] Comment on above: Performed By: #### C BC #### [facility] [address] [place] [address] Dr. Layla Barrera Platelet mean volume (Bld) [Entitic vol] 10.6 fL Normal 9.5-13.5 [facility] Comment on above: Performed By: #### C BC #### [facility] [address] [place] [address] Dr. Layla Barerra PLT 168 103/ul Normal 150-450 [facility] Comment on above: Performed By: #### C BC #### [facility] [address] [place] [address] Dr. Layla Barrera RBC 4.58 106/ul Critically low 4.70-6.10 [facility] Comment on above: Performed By: #### C BC #### [facility] [address] [place] [address] Dr. Layla Barrera WBC 7.0 103/ul Normal 4.0-11.0 [facility] Comment on above: Performed By: #### C BC #### [facility] [address] [place] [address] Dr. Layla Barrera FREE THYROXINE INDEX T7on FTI 2.21 Normal 1.30-4.50 [facility] Comment on above: Performed By: #### C BC #### [facility] [address] [address] [address] Layla Barrera T3U 33.0 % Normal 33.0-40.0 [facility] Comment on above: Performed By: #### C BC #### [facility] [address] [address] [address] Layla Barrera T4 [Mass/Vol] 6.70 ug/dL Normal 4.50-12.10 [facility] Comment on above: Performed By: #### C BC #### [facility] [address] [address] [address] Layla Barrera GLYCOHEMOGLOBIN A1Con 2022 ADA RECOMMENDATION SEE BELOW Normal [facility] Comment on above: Result Comment: ADA RECOMMENDED LIMIT 4.0 - 6.0 ADA THERAPEUTIC TARGET < 7.0 ACTION SUGGESTED > 7.0 Performed By: #### G IPANEL #### [facility] [address] [address] [address] Layla Barrera Glucose [Mass/Vol] 146 mg/dL Normal [facility] Comment on above: Performed By: #### G IPANEL #### [facility] [address] [address] [address] Layla Barrera HbA1c (Bld) [Mass fraction] 6.7 % Critically high 4.5-6.2 [facility] Comment on above: Performed By: #### G IPANEL #### [facility] [address] [address] [address] Layla Barrera IRONon 10-25-2022 Iron [Mass/Vol] 82.0 ug/dL Normal 65.0-175.0 [facility] Comment on above: Performed By: #### I SHANIQUA VITKENNY, VITB12 #### [facility] [address] [address] [address] Layla Barrera LIPID PROFILEon 10-25-2022 CHOL-HDL RATIO NORM SEE BELOW Normal [facility] Comment on above: Result Comment: 3.3 - 4.4 LOW RISK 4.4 - 7.1 AVERAGE RISK 7.1 - 11.0 MODERATE RISK >11.0 HIGH RISK Performed By: #### C BC #### [facility] [address] [address] [address] Layla Barrera Cholesterol [Mass/Vol] 201 mg/dL Critically high <=200 [facility] Comment on above: Performed By: #### C BC #### [facility] [address] [address] [address] Layla Barrera Cholesterol in HDL [Mass/Vol] 46 mg/dL Normal 40-60 [facility] Comment on above: Performed By: #### C BC #### [facility] [address] [place] [address] Dr. Layla Barrera Cholesterol in LDL [Mass/Vol] 133.4 mg/dL Normal [facility] Comment on above: Performed By: #### C BC #### [facility] [address] [address] [address] Layla Barrera Cholesterol.total/C holesterol in HDL [Mass ratio] 4.4 {ratio} Normal [facility] Comment on above: Performed By: #### C BC #### [facility] [address] [place] [address] Dr. Layla Barrera HDL NORMAL > or = 60 mg/dl - LO W CARDIOVASCULAR RISK <40 mg/dl - HIGH CARDIOVASCULAR RISK Normal [facility] Comment on above: Performed By: #### C BC #### [facility] [address] [place] [address] Dr. Layla Barrera LDL CALC NORMAL SEE BELOW Normal [facility] Comment on above: Result Comment: <100 mg/dl OPTIMAL 100 - 129 mg/dl NEAR OR ABOVE OPTIMAL 130 - 159 mg/dl BORDERLINE HIGH 160 - 189 mg/dl HIGH >190 mg/dl VERY HIGH Performed By: #### C BC #### [facility] [address] [place] [address] Dr. Layla Barrera Triglyceride [Mass/Vol] 108 mg/dL Normal <=150 [facility] Comment on above: Performed By: #### C BC #### [facility] [address] [place] [address] Dr. Layla Barrera VLDL CALC 21.6 mg/dL Normal [facility] Comment on above: Performed By: #### C BC #### [facility] [address] [place] [address] Dr. Layla Barrera PROF 14(COMP METB)on 023 Albumin [Mass/Vol] 3.6 g/dL Normal 3.4-5.0 [facility] Comment on above: Performed By: #### C BC #### [facility] [address] [place] [address] Dr. Layla Barrera Albumin/Globulin [Mass ratio] 1.0 {ratio} Normal [facility] Comment on above: Performed By: #### C BC #### [facility] [address] [place] [address] Dr. Layla Barrera ALP [Catalytic activity/Vol] 101 U/L Normal 46-116 [facility] Comment on above: Performed By: #### C BC #### [facility] [address] [place] [address] Dr. Layla Barrera ALT [Catalytic activity/Vol] 42 U/L Normal 16-63 [facility] Comment on above: Performed By: #### C BC #### [facility] [address] [place] [address] Dr. Layla Barrera Anion gap [Moles/Vol] 12.8 mmol/L Normal [facility] Comment on above: Performed By: #### C BC #### [facility] [address] [place] [address] Dr. Layla Barrera AST [Catalytic activity/Vol] 26 U/L Normal 15-37 [facility] Comment on above: Performed By: #### C BC #### [facility] [address] [place] [address] Dr. Layla Barrera Bilirubin [Mass/Vol] 0.7 mg/dL Normal 0.2-1.0 [facility] Comment on above: Performed By: #### C BC #### [facility] [address] [address] [address] Layla Barrera Calcium [Mass/Vol] 8.9 mg/dL Normal 8.5-10.1 [facility] Comment on above: Performed By: #### C BC #### [facility] [address] [place] [address] Dr. Layla Barrera Chloride [Moles/Vol] 103 mmol/L Normal 98-107 [facility] Comment on above: Performed By: #### C BC #### [facility] [address] [place] [address] Dr. Layla Barrera CO2 [Moles/Vol] 26.3 mmol/L Normal 21.0-32.0 [facility] Comment on above: Performed By: #### C BC #### [facility] [address] [place] [address] Dr. Layla Barrera Creatinine [Mass/Vol] 1.24 mg/dL Normal 0.70-1.30 [facility] Comment on above: Performed By: #### C BC #### [facility] [address] [place] [address] Dr. Layla Barrera EGFR-AF [place]ER >60 Normal >=60 [facility] Comment on above: Performed By: #### C BC #### [facility] [address] [place] [address] Dr. Layla Barrera EGFR-NON AF [place] 56 mL/min/1.73m2 Critically low >=60 [facility] Comment on above: Performed By: #### C BC #### [facility] [address] [place] [address] Dr. Layla Barrera Globulin (S) [Mass/Vol] 3.5 g/dL Normal [facility] Comment on above: Performed By: #### C BC #### [facility] [address] [place] [address] Dr. Layla Barrera Glucose [Mass/Vol] 147 mg/dL Critically high 74-106 [facility] Comment on above: Performed By: #### C BC #### [facility] [address] [place] [address] Dr. Layla Barrera Potassium [Moles/Vol] 4.1 mmol/L Normal 3.5-5.1 [facility] Comment on above: Performed By: #### C BC #### [facility] [facility] [address] [place] [address] Dr. Layla Barrera Protein [Mass/Vol] 7.1 g/dL Normal 6.4-8.2 [facility] Comment on above: Performed By: #### C BC #### [facility] [address] [place] [address] Dr. Layla Barrera Sodium [Moles/Vol] 138 mmol/L Normal 136-145 [facility] Comment on above: Performed By: #### C BC #### [facility] [address] [place] [address] Dr. Layla Barrera Urea nitrogen [Mass/Vol] 18.0 mg/dL Normal 7.0-18.0 [facility] Comment on above: Performed By: #### C BC #### [facility] [address] [place] [address] Dr. Layla Barrera Urea nitrogen/Creatinine [Mass ratio] 14.5 mg/mg Normal [facility] Comment on above: Performed By: #### C BC #### [facility] [address] [place] [address] Dr. Layla Barrera TSHon 10-25-2022 TSH 2.495 uIU/mL Normal 0.358-3.740 [facility] Comment on above: Performed By: #### C BC #### [facility] [address] [place] [address] Dr. Layla Barrera URIC ACID SERUMon 10-25-2022 Urate [Mass/Vol] 8.1 mg/dL Critically high 3.5-7.2 [facility] Comment on above: Performed By: #### C BC #### [facility] [address] [place] [address] Dr. Layla Barrera VITAMIN B12on 10-25-2022 Cobalamin (Vitamin B12) [Mass/Vol] 689.0 pg/mL Normal 193.0-986.0 [facility] Comment on above: Performed By: #### I SHANIQUA, VITAD, [id number] #### [facility] [address] [address] [address] Layla Barrera VITAMIN D 25 OHon 10-25-2022 VIT D 25-OH 17.0 ng/mL Normal [facility] Comment on above: Performed By: #### I SHANIQUA VITAD, [id number] #### [facility] [address] [address] [address] Layla Barrera VIT D RANGES SEE BELOW [facility] Comment on above: Result Comment: <20 ng/mL Vit D deficient 20 - <30 ng/mL Vit D insufficient 30 - 100 ng/mL Vit D sufficient >100 ng/mL Potential Toxicity Performed By: #### I SHANIQUA VITAD, [id number] #### [facility] [address] [address] [address] Layla Barrera 36on 10-20-2022 36 Pt aware appt scheduled Normal [facility] 36 Patient called again to state that he might have to go to the ED if he does not hear from you soon Normal [facility] 36on 10-19-2022 36 Patient calling regarding 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, states he is having effects from going from 4 pills to 6 pills. Patient reports that even with the 4 tablets he was having intermittent issues. Patient says he recently had over growth of bacteria in his stomach and states he had a recent Ecoli infection and this has been the only consistent medication he has been on and believes it may be contributing to his conditions. Normal [facility] CBC WITH AUTO DIFFERENTIALon 08-25-2022 Basophils (Bld) [#/Vol] 0.04 10*3/uL Normal 0.00-0.20 [facility] Comment on above: Performed By: #### L [id number] ####[facility] ([facility]AK[facility])[address] [place] [address] Basophils/100 WBC (Bld) 0.6 % Normal 0.0-1.0 [facility] Comment on above: Performed By: #### L [id number] ####[facility] ([facility])[address] [place] [address] Eosinophils (Bld) [#/Vol] 0.13 10*3/uL Normal 0.00-0.50 [facility] Comment on above: Performed By: #### L [id number] ####[facility] ([facility])[address] [place] [address] Eosinophils/100 WBC (Bld) 2.0 % Normal 0.0-6.0 [facility] Comment on above: Performed By: #### L [id number] ####[facility] (BE[facility]ER)[address] [place] [address] Erythrocyte distribution width (RBC) [Ratio] 13.3 % Normal 11.5-15.0 [facility] Comment on above: Performed By: #### L [id number] ####[facility] (BE[facility]ER)[address] [place] [address] ERYTHROCYTE MEAN CORPUSCULAR HEMOGLOBIN CONCENTRATION (G/DL) BY AUTOMATED 34.8 g/dL Normal 32.0-35.0 [facility] Comment on above: Performed By: #### L [id number] ####[facility] ([facility])[address] [place] [address] Hematocrit (Bld) [Volume fraction] 42.8 % Normal 39.0-55.0 [facility] Comment on above: Performed By: #### L [id number] ####[facility] (BE[facility])[address] [place] [address] Hemoglobin (Bld) [Mass/Vol] 14.9 g/dL Normal 13.0-17.0 [facility] Comment on above: Performed By: #### L [id number] ####[facility] ([facility])[address] [place] [address] Immature granulocytes (Bld) [#/Vol] 0.04 10*3/uL Normal 0.00-0.20 [facility] Comment on above: Performed By: #### L [id number] ####[facility] ([facility])[address] [place] [address] Immature granulocytes/100 WBC (Bld) 0.6 % Normal 0.0-1.0 [facility] Comment on above: Performed By: #### L [id number] ####[facility] ([facility])[address] [place] [address] Lymphocytes (Bld) [#/Vol] 2.05 10*3/uL Normal 1.20-4.00 [facility] Comment on above: Performed By: #### L [id number] ####[facility] ([facility])[address] [place] [address] Lymphocytes/100 WBC (Bld) 30.9 % Normal 20.0-45.0 [facility] Comment on above: Performed By: #### L [id number] ####[facility] ([facility])[address] [place] [address] MCH (RBC) [Entitic mass] 31.6 pg Normal 27.0-33.0 [facility] Comment on above: Performed By: #### L [id number] ####[facility] ([facility])[address] [place] [address] MCV (RBC) [Entitic vol] 90.9 fL Normal 82.0-98.0 [facility] Comment on above: Performed By: #### L [id number] ####[facility] [place] [address] Monocytes (Bld) [#/Vol] 0.60 10*3/uL Normal 0.10-1.00 [facility] Comment on above: Performed By: #### L [id number] ####[facility] [place] [address] Monocytes/100 WBC (Bld) 9.0 % Normal 5.0-12.0 [facility] Comment on above: Performed By: #### L [id number] ####[facility] ([facility])[address] [place] [address] Neutrophils (Bld) [#/Vol] 3.78 10*3/uL Normal 1.60-7.60 [facility] Comment on above: Performed By: #### L [id number] ####[facility] ([facility]ER)[address] [place] [address] Neutrophils/100 WBC (Bld) 56.9 % Normal 40.0-72.0 [facility] Comment on above: Performed By: #### L [id number] ####[facility] [place] [address] NRBC (PER 100 WBCS) BY AUTOMATED COUNT 0.0 % Normal 0.0-0.0 [facility] Comment on above: Performed By: #### L [id number] ####[facility] ([facility])[address] [place] [address] PLATELETS (10*3/UL) IN BLOOD AUTOMATED COUNT 173 10*3/uL Normal 150-400 [facility] Comment on above: Performed By: #### L [id number] ####[facility] ([facility])[address] [place] [address] RBC (Bld) [#/Vol] 4.71 10*6/uL Normal 4.20-5.70 [facility] Comment on above: Performed By: #### L [id number] ####[facility] [place] [address] WBC (Bld) [#/Vol] 6.64 10*3/uL Normal 4.00-10.60 [facility] Comment on above: Performed By: #### L [id number] ####[facility] ([facility]AKER)[address] [place] [address] COMPREHENSIVE METABOLIC PANE [place] 08-25-2022 Albumin [Mass/Vol] 4.1 g/dL Normal 3.5-5.7 [facility] Comment on above: Performed By: #### L [id number] ####[facility] ([facility])[address] [place] [address] ALP [Catalytic activity/Vol] 85 U/L Normal 34-104 [facility] Comment on above: Performed By: #### L [id number] ####[facility] ([facility]ER)[address] [place] [address] ALT [Catalytic activity/Vol] 47 U/L Normal 7-52 [facility] Comment on above: Performed By: #### L [id number] ####[facility] ([facility])[address] [place] [address] Anion gap [Moles/Vol] 9 mmol/L Normal 7-20 [facility] Comment on above: Performed By: #### L [id number] ####[facility] ([facility]ER)[address] [place] [address] AST [Catalytic activity/Vol] 31 U/L Normal 13-39 [facility] Comment on above: Performed By: #### L [id number] ####[facility] ([facility]ER)[address] [place] [address] Bilirubin [Mass/Vol] 0.6 mg/dL Normal 0.3-1.0 [facility] Comment on above: Performed By: #### L [id number] ####[facility] ([facility]ER)[address] [place] [address] Calcium [Mass/Vol] 9.2 mg/dL Normal 8.6-10.3 [facility] Comment on above: Performed By: #### L [id number] ####[facility] (BE[facility]ER)[address] [place] [address] Chloride [Moles/Vol] 102 mmol/L Normal 98-107 [facility] Comment on above: Performed By: #### L [id number] ####[facility] ([facility]ER)[address] [place] [address] CO2 [Moles/Vol] 29 mmol/L Normal 21-31 [facility] Comment on above: Performed By: #### L [id number] ####[facility] (BEAKER)[address] [place] [address] Creatinine [Mass/Vol] 1.09 mg/dL Normal 0.70-1.30 [facility] Comment on above: Performed By: #### L [id number] ####[facility] [place] [address] GLOMERULAR FILTRATION RATE ML/MIN/1.73 SQ M.PREDICTED 63.8 mL/min/1.73m*2 Normal >60.0 [facility] Comment on above: Result Comment: The [facility]???s estimated glomerular filtration rate (eGFR) will no longer include consideration of race in its calculation. The National Kidney Foundation???s eGFR Task Force developed new recommendations for the estimation of the glomerular filtration rate in the [place] They recommend immediate implementation of the new equation refit without the race variable in all laboratories because the calculation does not include race. In addition to not including race in the calculation and reporting, it included diversity in its development, and has acceptable performance characteristics and potential consequences that do not disproportionately affect any one group of individuals. Performed By: #### L [id number] ####[facility] ([facility])[address] [place] [address] Glucose [Mass/Vol] 142 mg/dL High 70-100 [facility] Comment on above: Performed By: #### L [id number] ####[facility] ([facility])[address] [place] [address] Potassium [Moles/Vol] 4.1 mmol/L Normal 3.5-5.1 [facility] Comment on above: Performed By: #### L [id number] ####[facility] ([facility])[address] [place] [address] Protein [Mass/Vol] 7.0 g/dL Normal 6.0-8.3 [facility] Comment on above: Performed By: #### L [id number] ####[facility] ([facility])[address] [place] [address] Sodium [Moles/Vol] 136 mmol/L Normal 136-145 [facility] Comment on above: Performed By: #### L [id number] ####[facility] ([facility])[address] [place] [address] Urea nitrogen [Mass/Vol] 14 mg/dL Normal 7-25 [facility] Comment on above: Performed By: #### L [id number] ####[facility] (BEAKER)[address] [place] [address] UREA NITROGEN/CREATININE (MASS RATIO) IN SER/PLAS 12.84 Normal [facility] Comment on above: Performed By: #### L [id number] ####[facility] (BEAKER)[address] [place] [address] Follow-Upon 08-25-2022 Follow-Up [id number] AlmasBrittany 1940 M Date Provider Department [facility] Eloise [facility] No family history on file Level of Service:97826 CO OFFICE/OUTPATIENT ESTABLISHED MOD MDM 30-39 MIN () Reason for Visit and Comments: Follow-up [874184] Normal [facility] PSA, FREE AND TOTAL RATIOon 06-22-2022 % Free PSA 49.9 % Normal [facility] Comment on above: Result Comment: The table below lists the probability of prostate cancer for men with non-suspicious JEANETH results and total PSA between 4 and 10 ng/mL, by patient age (Catalona et al, EDNA 1998, 279:1542). % Free PSA 50-64 yr 65-75 yr 0.00-10.00% 56% 55% 10.01-15.00% 24% 35% 15.01-20.00% 17% 23% 20.01-25.00% 10% 20% >25.00% 5% 9% Please note: Ricardo et al did not make specific recommendations regarding the use of percent free PSA for any other population of men. Performed By: #### P SAFREE #### [facility] [address] [place], [place] [address] Dr. Layla Barrera Prostate specific Ag [Mass/Vol] 6.8 ng/mL Critically high 0.0-4.0 [facility] Comment on above: Result Comment: Nikki PEREZIA methodology. . According to the [place] [employer], Serum PSA should decrease and remain at undetectable levels after radical prostatectomy. The AUA defines biochemical recurrence as an initial PSA value 0.2 ng/mL or greater followed by a subsequent confirmatory PSA value 0.2 ng/mL or greater. Values obtained with different assay methods or kits cannot be used interchangeably. Results cannot be interpreted as absolute evidence of the presence or absence of malignant disease. Performed By: #### P SAFREE #### [facility] [address] [place] [address] Dr. Layla Barrera PSA, Free 3.39 ng/mL Normal N/A [facility] Comment on above: Result Comment: Nikki bassett ECLIA methodology. Performed By: #### P SAFREE #### [facility] [address] [place] [address] Dr. Layla Barrera H PYLORI ANTIBODY IGGon H. PYLORI IGG ABS 0.96 Index Value Critically high 0.00-0. 79 [facility] Comment on above: Result Comment: Nega tive <0.80 Equivocal 0.80 - 0.89 Positive >0.89 Performed By: #### C BC #### [facility] [address] [place] [address] Dr. Layla Barrera INSULINon 03-12-2022 Insulin 38.7 uIU/mL Critically high 2.6-24.[address] [facility] Comment on above: Performed By: #### G IPANEL #### [facility] [address] [place] [address] Dr. Layla Barrera AMYLASEon 03-11-2022 Amylase [Catalytic activity/Vol] 54 U/L Normal 25-115 [facility] Comment on above: Performed By: #### G IPANEL #### [facility] [address] [place] [address] Dr. Layla Barrera CBC AUTO DIFFon 03-11-2022 BASO # 0.1 103/ul Normal 0.0-0.1 [facility] Comment on above: Performed By: #### C BC #### [facility] [address] [place] [address] Dr. Layla Barrera Basophils/100 WBC (Bld) 0.7 % Normal 0.2-2.0 [facility] Comment on above: Performed By: #### C BC #### [facility] [address] [place] [address] Dr. Layla Barrera EO # 0.3 103/ul Normal 0.0-0.7 [facility] Comment on above: Performed By: #### C BC #### [facility] [address] [place] [address] Dr. Layla Barrera Eosinophils/100 WBC (Bld) 3.6 % Normal 0.9-7.0 [facility] Comment on above: Performed By: #### C BC #### [facility] [address] [place] [address] Dr. Layla Barrera Erythrocyte distribution width (RBC) [Ratio] 13.2 % Normal 11.0-15.0 [facility] Comment on above: Performed By: #### C BC #### [facility] [address] [place] [address] Dr. Layla Barrera Hematocrit (Bld) [Volume fraction] 43.0 % Normal 42.0-54.0 [facility] Comment on above: Performed By: #### C BC #### [facility] [address] [place] [address] Dr. Layla Barrera Hemoglobin (Bld) [Mass/Vol] 14.6 g/dL Normal 14.0-18.0 [facility] Comment on above: Performed By: #### C BC #### [facility] [address] [place] [address] Dr. Layla Barrera IG # 0.03 10e3/ul Normal 0.00-0.03 [facility] Comment on above: Performed By: #### C BC #### [facility] [address] [place] [address] Dr. Layla Barrera IG % 0.4 % Normal 0.0-0.5 [facility] Comment on above: Performed By: #### C BC #### [facility] [address] [place] [address] Dr. Layla Barrera LYMPH # 3.0 103/ul Normal 1.2-3.8 [facility] Comment on above: Performed By: #### C BC #### [facility] [address] [place] [address] Dr. Layla Barrera Lymphocytes/100 WBC (Bld) 41.2 % Normal 20.5-60.0 [facility] Comment on above: Performed By: #### C BC #### [facility] [address] [place] [address] Dr. Layla Barrera MANUAL DIFF REQ NO Normal [facility] Comment on above: Performed By: #### C BC #### [facility] [address] [place] [address] Dr. Layla Barrera MCH (RBC) [Entitic mass] 31.8 pg Normal 25.9-34.0 [facility] Comment on above: Performed By: #### C BC #### [facility] [address] [place] [address] Dr. Layla Barrera MCHC (RBC) [Mass/Vol] 34.0 g/dL Normal 29.9-35.2 [facility] Comment on above: Performed By: #### C BC #### [facility] [address] [place] [address] Dr. Layla Barrera MCV (RBC) [Entitic vol] 93.7 fL Normal 80.0-94.0 [facility] Comment on above: Performed By: #### C BC #### [facility] [address] [place] [address] Dr. Layla Barrera MONO # 0.6 103/ul Normal 0.3-0.8 [facility] Comment on above: Performed By: #### C BC #### [facility] [address] [place] [address] Dr. Layla Barrera Monocytes/100 WBC (Bld) 7.9 % Normal 1.7-12.0 [facility] Comment on above: Performed By: #### C BC #### [facility] [address] [place] [address] Dr. Layla Barrera NEUT # 3.3 103/ul Normal 1.4-6.5 [facility] Comment on above: Performed By: #### C BC #### [facility] [address] [place] [address] Dr. Layla Barrera Neutrophils/100 WBC (Bld) 46.2 % Normal 43.0-75.0 [facility] Comment on above: Performed By: #### C BC #### [facility] [address] [address] [address] Layla Barrera Platelet mean volume (Bld) [Entitic vol] 11.1 fL Normal 9.5-13.5 [facility] Comment on above: Performed By: #### C BC #### [facility] [address] [address] [address] Layla Barrera PLT 171 103/ul Normal 150-450 [facility] Comment on above: Performed By: #### C BC #### [facility] [id number] Layla Barrera RBC 4.59 106/ul Critically low 4.70-6.10 [facility] Comment on above: Performed By: #### C BC #### [facility] [id number] Layla Barrera WBC 7.2 103/ul Normal 4.0-11.0 [facility] Comment on above: Performed By: #### C BC #### [facility] [address] [place], [place] [id number] Dr. Layla Barrera CT ABD/PELV W CONon 03-11-20 CT ABD/PELV W CON EXAMINATION: CT ABD/PELV W CON, 03/11/2022 7:34 AM EDT HISTORY: Irritable colon , epigastric pain, diarrhea COMPARISON: None. TECHNIQUE: CT scan of the abdomen and pelvis was performed with IV contrast. CT dose reduction technique was used, including Automated Exposure Control. FINDINGS: LUNG BASES: No visible pulmonary or pleural disease. LIVER: Diffuse hypoattenuation consistent with hepatic steatosis BILIARY: No dilatation or calcification. PANCREAS: No lesion, fluid collection, ductal dilatation, or atrophy. SPLEEN: No enlargement or focal lesion. ADRENALS: No mass or enlargement. KIDNEYS: No mass, obstruction, or calcification. BOWEL/MESENTERY: No visible mass, obstruction, or bowel wall thickening. Normal appendix AORTA/VASCULAR: No aortic aneurysm. Moderate diffuse atherosclerosis RETROPERITONEUM: No mass or adenopathy. LYMPH NODES: No adenopathy. URINARY BLADDER: No visible focal wall thickening, lesion, or calculus. PELVIC ORGANS: Enlarged prostate gland measuring 5.8 cm with calcifications ABDOMINAL WALL: No mass or hernia. BONES: No bony lesion or fracture. OTHER: Negative. IMPRESSION: Hepatic steatosis No acute intraperitoneal abnormality Enlarged prostate gland Electronically authenticated by: CJ MELTON Date: 2022-03-11 10:08 Normal [facility] GI PANEL (PCR)on 03-11-2022 Adenovirus F 40/41 Not detected Normal NOT DETECTED [facility] Comment on above: Performed By: #### G IPANEL #### [facility] [address] [place] [address] Dr. Layla Barrera Astrovirus Not detected Normal NOT DETECTED [facility] Comment on above: Performed By: #### G IPANEL #### [facility] [address] [place] [address] Dr. Layla Barrera C. Diff toxin A/B Not detected Normal NOT DETECTED [facility] Comment on above: Performed By: #### G IPANEL #### [facility] [address] [place] [address] Dr. Layla Barrera Campylobacter Not detected Normal NOT DETECTED [facility] Comment on above: Performed By: #### G IPANEL #### [facility] [address] [place] [address] Dr. Layla Barrera Cryptosporidium Not detected Normal NOT DETECTED [facility] Comment on above: Performed By: #### G IPANEL #### [facility] [address] [place] [address] Dr. Layla Barrera Cyclos. Cayetanensis Not detected Normal NOT DETECTED [facility] Comment on above: Performed By: #### G IPANEL #### [facility] [address] [place] [address] Dr. Layla Barrera E. Coli O157 Not Applicable Normal Not Applicable [facility] Comment on above: Performed By: #### G IPANEL #### [facility] [address] [place] [address] Dr. Layla Barrera E. histolytica Not detected Normal NOT DETECTED The [facility] Comment on above: Performed By: #### G IPANEL #### [facility] [address] [address] [address] Layla Barrera EAEC Not detected Normal NOT DETECTED [facility] [place] [facility] Comment on above: Performed By: #### G IPANEL #### [facility] [address] [address] [address] Layla Barrera EIEC Not detected Normal NOT DETECTED [facility] [place] [facility] Comment on above: Performed By: #### G IPANEL #### [facility] [address] [address] [address] Layla Barrera EPEC Detected Abnormal NOT DETECTED The [facility] Comment on above: Performed By: #### G IPANEL #### [facility] [address] [place] [address] Dr. Layla Barrera ETEC Not detected Normal NOT DETECTED [facility] [place] [facility] Comment on above: Performed By: #### G IPANEL #### [facility] [address] [place] [address] Dr. Layla Hennessy Lamblia Not detected Normal NOT DETECTED [facility] [place] [facility] Comment on above: Performed By: #### G IPANEL #### [facility] [address] [place] [address] Dr. Layla STEINBERG CONTROLS PASSED Normal The [facility] Comment on above: Performed By: #### G IPANEL #### [facility] [address] [place] [address] Dr. Layla ALEXIS [facility] HEADER GI PANEL BACTERIA Normal T [facility] Comment on above: Performed By: #### G IPANEL #### [facility] [address] [place] [address] Dr. Layla SARAVIA ECOLI GI PANEL DIARRHEAGEN IC E.COLI / SHIGELLA Normal The [facility] Comment on above: Performed By: #### G IPANEL #### [facility] [address] [place] [address] Dr. Layla SARAVIA INFO SEE BELOW Normal [facility] Comment on above: Result Comment: EAEC - Enteroaggregative E. Coli EPEC- Enteropathogenic E. Coli ETEC- Enterotoxigenic E. Coli lt/st STEC- Shigella-like toxin-producing E. Coli stx1/stx2 EIEC- Shigella/Enteroinvasive E. Coli Performed By: #### G IPANEL #### [facility] [address] [place] [address] Dr. Layla SARAVIA PARASITES GI PANEL PARASITES Normal The [facility] Comment on above: Performed By: #### G IPANEL #### [facility] [address] [address] [address] Layla SARAVIA VIRUS GI PANEL VIRUSES Normal The [facility] Comment on above: Performed By: #### G IPANEL #### [facility] [address] [place] [address] Dr. Layla Barrera Norovirus GI/GII Not detected Normal NOT DETECTED The [facility] Comment on above: Performed By: #### G IPANEL #### [facility] [address] [place] [address] Dr. Layla Barrera P. Shigelloides Not detected Normal NOT DETECTED The [facility] Comment on above: Performed By: #### G IPANEL #### [facility] [address] [place] [address] Dr. Layla Barrera Rotavirus A Not detected Normal NOT DETECTED [facility] Comment on above: Performed By: #### G IPANEL #### [facility] [address] [place] [address] Dr. Layla Barerra Salmonella Not detected Normal NOT DETECTED [facility] Comment on above: Performed By: #### G IPANEL #### [facility] [address] [place] [address] Dr. Layla Barrera Sapovirus Not detected Normal NOT DETECTED [facility] Comment on above: Performed By: #### G IPANEL #### [facility] [address] [place] [address] Dr. Layla Barrera STEC Not detected Normal NOT DETECTED [facility] Comment on above: Performed By: #### G IPANEL #### [facility] [address] [place] [address] Dr. Layla Barrera Vibrio Not detected Normal NOT DETECTED [facility] Comment on above: Performed By: #### G IPANEL #### [facility] [address] [place] [address] Dr. Layla Barrera Vibrio Cholera Not detected Normal NOT DETECTED [facility] Comment on above: Performed By: #### G IPANEL #### [facility] [address] [address] [address] Layla Barrera Y. Enterocolitica Not detected Normal NOT DETECTED The [facility] Comment on above: Performed By: #### G IPANEL #### [facility] [address] [place] [address] Dr. Layla Barrera GLYCOHEMOGLOBIN A1Con 2021 ADA RECOMMENDATION SEE BELOW Normal [facility] Comment on above: Result Comment: ADA RECOMMENDED LIMIT 4.0 - 6.0 ADA THERAPEUTIC TARGET < 7.0 ACTION SUGGESTED > 7.0 Performed By: #### G IPANEL #### [facility] [address] [place] [address] Dr. Layla Barrera Glucose [Mass/Vol] 134 mg/dL Normal [facility] Comment on above: Performed By: #### G IPANEL #### [facility] [address] [place] [address] Dr. Layla Barrera HbA1c (Bld) [Mass fraction] 6.3 % Critically high 4.5-6.2 [facility] Comment on above: Performed By: #### G IPANEL #### [facility] [address] [place] [address] Dr. Layla Barrera LIPASEon 03-11-2022 Lipase [Catalytic activity/Vol] 82.0 U/L Normal 73.0-393.0 [facility] Comment on above: Performed By: #### G IPANEL #### [facility] [address] [place] [address] Dr. Layla Barrera LIPID PROFILEon 03-11-2022 CHOL-HDL RATIO NORM SEE BELOW Normal [facility] Comment on above: Result Comment: 3.3 - 4.4 LOW RISK 4.4 - 7.1 AVERAGE RISK 7.1 - 11.0 MODERATE RISK >11.0 HIGH RISK Performed By: #### G IPANEL #### [facility] [address] [place], [place] [address] Dr. Layla Barrera Cholesterol [Mass/Vol] 216 mg/dL Critically high <=200 The [facility] Comment on above: Performed By: #### G IPANEL #### [facility] [address] [place], [place] [address] Dr. Layla Barrera Cholesterol in HDL [Mass/Vol] 47 mg/dL Normal 40-60 [facility] Comment on above: Performed By: #### G IPANEL #### [facility] [address] [address] [address] Layla Barrera Cholesterol in LDL [Mass/Vol] 134.4 mg/dL Normal [facility] Comment on above: Performed By: #### G IPANEL #### [facility] [address] [address] [address] Layla Barrera Cholesterol.total/C holesterol in HDL [Mass ratio] 4.6 {ratio} Normal [facility] Comment on above: Performed By: #### G IPANEL #### [facility] [address] [address] [address] Layla Barrera HDL NORMAL > or = 60 mg/dl - LO W CARDIOVASCULAR RISK <40 mg/dl - HIGH CARDIOVASCULAR RISK Normal [facility] Comment on above: Performed By: #### G IPANEL #### [facility] [address] [address] [address] Layla Barrera LDL CALC NORMAL SEE BELOW Normal [facility] Comment on above: Result Comment: <100 mg/dl OPTIMAL 100 - 129 mg/dl NEAR OR ABOVE OPTIMAL 130 - 159 mg/dl BORDERLINE HIGH 160 - 189 mg/dl HIGH >190 mg/dl VERY HIGH Performed By: #### G IPANEL #### [facility] [address] [address] [address] Layla Barrera Triglyceride [Mass/Vol] 173 mg/dL Critically high <=150 The [facility] Comment on above: Performed By: #### G IPANEL #### [facility] [address] [address] [address] Layla Barrera VLDL CALC 34.6 mg/dL Normal [facility] Comment on above: Performed By: #### G IPANEL #### [facility] [address] [address] [address] Layla Barrera OCC BLD IMMUNO SCREENon OCCULT BLOOD Negative Normal NEGATIVE [facility] Comment on above: Performed By: #### C BC #### [facility] [address] [place] [address] Dr. Layla Barrera PROF 14(COMP METB)on 022 Albumin [Mass/Vol] 3.7 g/dL Normal 3.4-5.0 [facility] Comment on above: Performed By: #### C BC #### [facility] [address] [place] [address] Dr. Layla Barrera Albumin/Globulin [Mass ratio] 1.1 {ratio} Normal [facility] Comment on above: Performed By: #### C BC #### [facility] [address] [place] [address] Dr. Layla Barrera ALP [Catalytic activity/Vol] 90 U/L Normal 46-116 [facility] Comment on above: Performed By: #### C BC #### [facility] [address] [place] [address] Dr. Layla Barrera ALT [Catalytic activity/Vol] 66 U/L Critically high 16-63 [facility] Comment on above: Performed By: #### C BC #### [facility] [address] [place] [address] Dr. Layla Barrera Anion gap [Moles/Vol] 12.8 mmol/L Normal [facility] Comment on above: Performed By: #### C BC #### [facility] [address] [place] [address] Dr. Layla Barrera AST [Catalytic activity/Vol] 32 U/L Normal 15-37 [facility] Comment on above: Performed By: #### C BC #### [facility] [address] [place] [address] Dr. Layla Barrera Bilirubin [Mass/Vol] 0.7 mg/dL Normal 0.2-1.0 [facility] Comment on above: Performed By: #### C BC #### [facility] [address] [address] [address] Layla Barrera Calcium [Mass/Vol] 8.9 mg/dL Normal 8.5-10.1 [facility] Comment on above: Performed By: #### C BC #### [facility] [address] [address] [address] Layla Barrera Chloride [Moles/Vol] 100 mmol/L Normal 98-107 [facility] Comment on above: Performed By: #### C BC #### [facility] [address] [address] [address] Layla Barrera CO2 [Moles/Vol] 27.9 mmol/L Normal 21.0-32.0 [facility] [place] [facility] Comment on above: Performed By: #### C BC #### [facility] [address] [place] [address] Dr. Layla Barrera Creatinine [Mass/Vol] 1.30 mg/dL Normal 0.70-1.30 [facility] Comment on above: Performed By: #### C BC #### [facility] [address] [place] [address] Dr. Layla Barrera EGFR-AF [place]ER >60 Normal >=60 [facility] [place] [facility] Comment on above: Performed By: #### C BC #### [facility] [address] [place] [address] Dr. Layla Barrera EGFR-NON AF [place] 53 mL/min/1.73m2 Critically low >=60 [facility] Comment on above: Performed By: #### C BC #### [facility] [address] [place] [address] Dr. Layla Barrera Globulin (S) [Mass/Vol] 3.3 g/dL Normal [facility] Comment on above: Performed By: #### C BC #### [facility] [address] [place] [address] Dr. Layla Barrera Glucose [Mass/Vol] 137 mg/dL Critically high 74-106 T [facility] Comment on above: Performed By: #### C BC #### [facility] [address] [address] [address] Layla Barrera Potassium [Moles/Vol] 3.7 mmol/L Normal 3.5-5.1 [facility] Comment on above: Performed By: #### C BC #### [facility] [address] [address] [address] Layla Barrera Protein [Mass/Vol] 7.0 g/dL Normal 6.4-8.2 [facility] Comment on above: Performed By: #### C BC #### [facility] [address] [address] [address] Layla Barrera Sodium [Moles/Vol] 137 mmol/L Normal 136-145 [facility] Comment on above: Performed By: #### C BC #### [facility] [address] [place] [address] Dr. Layla Barrera Urea nitrogen [Mass/Vol] 20.0 mg/dL Critically high 7.0-18.0 [facility] Comment on above: Performed By: #### C BC #### [facility] [address] [address] [address] Layla Barrera Urea nitrogen/Creatinine [Mass ratio] 15.4 mg/mg Normal [facility] Comment on above: Performed By: #### C BC #### [facility] [address] [place], [place] [id number] Dr. Layla Barrera URIC ACID SERUMon 03-11-2022 Urate [Mass/Vol] 8.3 mg/dL Critically high 3.5-7.2 [facility] Comment on above: Performed By: #### G IPANEL #### [facility] [address] [address] [address] Layla Barrera Office Visit (Cardiology)on 12-28-2021 Follow-up visit Diagnoses/Problems Assessed Benign essential hypertension (401.1) (I10) Coronary artery disease (414.00) (I25.10) Hyperlipidemia (272.4) (E78.5) Class 1 obesity with body mass index (BMI) of 34.0 to 34.9 in adult (278.00,V85.34) (E66.9,Z68.34) Former smoker (V15.82) (Z87.891) Quit: 1991 Orders Class 1 obesity with body mass index (BMI) of 34.0 to 34.9 in adult Healthy Weight Tips; Status:Complete; Done: 28Dec2021 Some eating tips that can help you lose weight.; Status:Complete; Done: 28Dec2021 Coronary artery disease Renew: Aspirin EC 81 MG Oral Tablet Delayed Release; 1 tablet twice weekly SocHx: Former smoker Tobacco Use Screening; Status:Complete; Done: 28Dec2021 Patient Instructions By signing my name below, I, Krista Ryan LPN.,Scribe, attest that this documentation has been prepared under the direction and in the presence of Dr. Johnnie Elliott MD. Please bring all medicines, vitamins, and herbal supplements with you when you come to the office. Prescriptions will not be filled unless you are compliant with your follow up appointments or have a follow up appointment scheduled as per instruction of your physician. Refills should be requested at the time of your visit. Follow up in 1 year Chief Complaint Follow up to discuss stress results. History of Present Illness CoronaryPatient returns for follow-up of problems as noted. He is done well. He denies any of the symptoms or disease that he had in the past. Management of cardiac risk factors including his hypertension and hyperlipidemia is reviewed and control appears to be adequate. He was congratulated on his continued abstinence from tobacco. We did advocate the merits of diet exercise and weight loss to favorably improve his body mass index and also because it would improve not only his blood pressure were probably his lipid profile and he understands the recommendation and will attempt to implement our recommendations. Active Problems Problems Angina pectoris (413.9) (I20.9) Benign essential hypertension (401.1) (I10) Class 1 obesity with body mass index (BMI) of 34.0 to 34.9 in adult (278.00,V85.34) (E66.9,Z68.34) Coronary artery disease (414.00) (I25.10) Dizziness (780.4) (R42) Dyspnea (786.09) (R06.00) Fatigue (780.79) (R53.83) Former smoker (V15.82) (Z87.891) Quit: 1991 Hyperlipidemia (272.4) (E78.5) Personal history of COVID-19 (V12.09) (Z86.16) Polymyalgia rheumatica (725) (M35.3) Short of breath on exertion (786.05) (R06.02) Sleep apnea (780.57) (G47.30) Surgical History Problems History of Cardiac catheterization History of Complete colonoscopy 10Jul2017 History of Elbow surgery Left History of Excision of basal cell carcinoma History of Knee arthroscopy (Therapeutic) Bilateral History of Nose surgery History of Renal lithotripsy History of Rotator cuff repair Left Current Meds Medication NameInstruction Aspirin EC 81 MG Oral Tablet Delayed Release1 tablet twice weekly Calcium + D TABSTAKE 1 TABLET DAILY. Crestor 5 MG Oral TabletTAKE 1 TABLET DAILY. Cymbalta 30 MG Oral Capsule Delayed Release Particlesone tablet daily Elavil 25 MG TABSTAKE 1 TABLET AT BEDTIME. Folic Acid 1 MG Oral TabletTAKE 1 TABLET DAILY DIRECTED. Humira Pen KITUSE DIRECTED. Irbesartan-hydroCHLOROt hiazide 300-12.5 MG Oral TabletTAKE 1 TABLET ONCE DAILY. Lasix 20 MG Oral TabletTAKE 1 TABLET DAILY. Magnesium CAPSTAKE 70 MG CAPSULES 1 DAILY metFORMIN HCl - 500 MG Oral TabletTAKE 2 TABLETS DAILY. Methotrexate 2.5 MG Oral TabletTAKE 4 TABLETS WEEKLY. Pantoprazole Sodium 40 MG Oral Tablet Delayed ReleaseTAKE 1 TABLET DAILY. Vitamin B 12 TABSTAKE 1 TABLET DAILY. Allergies Urgent Penicillins Anaphylaxis;; Recorded By: Laura Daniel; 11/25/2021 8:33:10 AM Unassigned Animal dander - Cats Recorded By: Laura Daniel; 11/25/2021 8:33:10 AM Pollen Recorded By: Laura Daniel; 11/25/2021 8:33:10 AM Family History Mother Family history of hypertension (V17.49) (Z82.49) Father Family history of congestive heart failure (V17.49) (Z82.49) - age 84 Social History Problems Caffeine use (V49.89) (Z78.9) Coffee: 1 cup daily Soda- Occasionally Former smoker (V15.82) (Z87.891) Quit: 1991 No alcohol use No illicit drug use Review of Systems Constitutional: not feeling tired. Eyes: no eyesight problems. ENT: no hearing loss and no nosebleeds. Cardiovascular: no intermittent leg claudication and as noted in HPI. Respiratory: no chronic cough and no shortness of breath. Gastrointestinal: no change in bowel habits and no blood in stools. Genitourinary: no urinary frequency and no hematuria. Skin: no skin rashes. Neurological: no seizures and no frequent falls. Psychiatric: no depression and not suicidal. All other systems have been reviewed and are negative for complaint. Vitals Vital Signs Recorded: 28Dec2021 10:15AMRecorded: 28Dec2021 09:51AM Hea (more content not included)... Normal [employer] Tobacco Screening.on 022 Fall risk assessment a) No falls within the last year -[facility] y 250 DO Work Phone: Tobacco use status CP b) No -[facility] 250 DO Work Phone: [facility] CARDIAC STRESS/REST INJE CTIONon 12-21-2021 NO CARDIAC STRESS/REST INJECTION Patient Name: TRAVIS COBURN STUDY: MYOCARDIAL PERFUSION STRESS TEST WITH LEXISCAN Performing facility: 0 [facility] Provider: Azalea Elliott MD, [facility] PCP: Dr. David Supervising provider: Wade Ramos DO, [facility] INDICATION: CAD; Dyspnea HISTORY: Gender: M; Age: 81 y/o ; Height: 0 cm; Weight: 306.4617327 kg. CAD; High Cholesterol; HTN; SOB; Fatigue; Quit smoking 30 years ago. Cardiac catheterization on 2005. COMPARISON: Previous nuclear [place] [facility] [place] ACCESSION NUMBER(S): [id number]; [id number]; [id number] ORDERING CLINICIAN: JOHNNIE ELLIOTT TECHNIQUE: TWO DAY protocol. Stress injection: Date:12-21-21, 33.9 mCi of Myoview IV 20 seconds after rapid injection of Lexiscan. Rest injection: Date: 12-22-21, 35.6 mCi of Myoview IV at rest. The patient had a rapid injection of 0.4 mg of Lexiscan IV over 10 seconds. Imaging was performed by gated tomographic technique. Reason for Lexiscan: dizziness/unsteady/fall risk STRESS TEST DATA: Resting heart rate was 80 BPM. Resting blood pressure was 146/80 mmHg. Peak blood pressure was 144/78 mmHg. Peak heart rate was 104 BPM. TEST TERMINATED DUE TO: Protocol completed FINDINGS: STRESS TEST RESULTS: Resting electrocardiogram revealed normal sinus rhythm. There were no significant ischemic ECG changes few PACs were seen The patient did not have chest pains/symptoms during procedure. There was a normal recovery phase. IMAGING RESULTS: Image quality was good. Rest and stress tomographic images were reviewed and revealed normal perfusion without evidence of ischemia, myocardial infarction, or left ventricular dilatation with stress. Overall left ventricular systolic function appeared to be on the lower normal range without regional wall motion abnormalities. Ejection fraction was 53%. TID is 1.06 and is normal. There were evidence of diaphragmatic attenuation artifact. IMPRESSION: Normal Lexiscan Myoview cardiac perfusion stress test. No evidence of ischemia or myocardial infarction by perfusion imaging. Normal left ventricular systolic function, ejection fraction 53%. No previous study available for comparison. Electronically signed by: ABDOUL TIMMONS MD Normal [facility] No Panel Informationon 12-21 Normal -[facility] 250 DO Work Phone: Office Visit (Cardiology)on 12-08-2021 Follow-up visit Diagnoses/Problems Assessed Coronary artery disease (414.00) (I25.10) Benign essential hypertension (401.1) (I10) Hyperlipidemia (272.4) (E78.5) Short of breath on exertion (786.05) (R06.02) Former smoker (V15.82) (Z87.891) Quit: 1991 Class 1 obesity with body mass index (BMI) of 34.0 to 34.9 in adult (278.00,V85.34) (E66.9,Z68.34) Sleep apnea (780.57) (G47.30) Dizziness (780.4) (R42) Personal history of COVID-19 (V12.09) (Z86.16) Fatigue (780.79) (R53.83) Dyspnea (786.09) (R06.00) Orders Class 1 obesity with body mass index (BMI) of 34.0 to 34.9 in adult Healthy Weight Tips; Status:Complete - Retrospective Authorization; Done: 08Dec2021 Coronary artery disease Renew: Aspirin EC 81 MG Oral Tablet Delayed Release; 1 tablet twice weekly Coronary artery disease, Dyspnea NM Cardiac Stress/Rest Nuclear Med Order; Status:Hold For - Scheduling,Retrospectiv e Authorization; Requested for:08Dec2021; Radiologist to Determine Optimal Study : Y What are the patient's signs and symptoms? : dyspnea, dizziness, chest discomfort Dizziness IO EKG Electrocardiogram- 12 Lead; Status:Complete; Done: 08Dec2021 SocHx: Former smoker Tobacco Use Screening; Status:Complete; Done: 08Dec2021 Patient Instructions By signing my name below, Svitlana Emery LPN, Scribe, attest that this documentation has been prepared under the direction and in the presence of Dr. Johnnie Elliott MD. All medical record entries made by the Jailene were at my direction and personally dictated by me. I have reviewed the chart and agree that the record accurately reflects my personal performance of the history, physical exam, discussion and plan. Please bring all medicines, vitamins, and herbal supplements with you when you come to the office. Prescriptions will not be filled unless you are compliant with your follow up appointments or have a follow up appointment scheduled as per instruction of your physician. Refills should be requested at the time of your visit. Follow-up after testing completed Chief Complaint TRAVIS COBURN is being seen for an annual follow-up of dizziness and sent back by Hypotension, Bradycardia. History of Present Illness She returns prematurely at the suggestion of his primary care physician. Recently he has been experiencing a wide variety of symptoms. He complains of dizziness shortness of breath profound fatigue all of which he had prior to his previous diagnosis of coronary disease and subsequent intervention. Because of this he is worried about progression. I advised him that the symptoms are somewhat vague but nonetheless because of his previous history I recommended stress testing. He does not believe he can perform a treadmill test and because of this we will do a pharmacologic stress test with isotope imaging We also discussed his breathing situation. I pointed out to him that he does have sleep apnea which could contribute to his shortness of breath as well as his complaints of daytime fatigue he does acknowledge this although he states he was recently in receipt of a new set up for his sleep apnea and because of this he is reluctant to believe that he requires adjustment in equipment or settings. We also touched on the merits of diet exercise and weight loss and he understands her recommendations. He will follow-up in the near future when stress testing is done. He also apparently had a Holter monitor last week and we are not in receipt of that and this too will be reviewed at his next visit. Active Problems Problems Angina pectoris (413.9) (I20.9) Benign essential hypertension (401.1) (I10) Coronary artery disease (414.00) (I25.10) Former smoker (V15.82) (Z87.891) Quit: 1991 Hyperlipidemia (272.4) (E78.5) Polymyalgia rheumatica (725) (M35.3) Short of breath on exertion (786.05) (R06.02) Sleep apnea (780.57) (G47.30) Surgical History Problems History of Cardiac catheterization History of Complete colonoscopy 10Jul2017 History of Elbow surgery Left History of Excision of basal cell carcinoma History of Knee arthroscopy (Therapeutic) Bilateral History of Nose surgery History of Renal lithotripsy History of Rotator cuff repair Left Current Meds Medication NameInstruction Aspirin EC 81 MG Oral Tablet Delayed Release1 tablet twice weekly Calcium + D TABSTAKE 1 TABLET DAILY. Crestor 5 MG Oral TabletTAKE 1 TABLET DAILY. Elavil 25 MG TABSTAKE 1 TABLET AT BEDTIME. Folic Acid 1 MG Oral TabletTAKE 1 TABLET DAILY DIRECTED. Humira Pen KITUSE DIRECTED. Irbesartan-hydroCHLOROt hiazide 300-12.5 MG Oral TabletTAKE 1 TABLET ONCE DAILY. Lasix 20 MG Oral TabletTAKE 1 TABLET DAILY. Magnesium CAPSTAKE 70 MG CAPSULES 1 DAILY metFORMIN HCl - 500 MG Oral TabletTAKE 2 TABLETS DAILY. Methotrexate Sodium 2.5 MG Oral TabletTAKE 1 TABLET WEEKLY. Pantoprazole Sodium 40 MG Oral Tablet Delayed ReleaseTAKE 1 TABLET DAILY. Vitamin B 12 TABSTAKE 1 TABLET DAILY. Allergies (more content not included)... Normal [employer] Tobacco Screening.on 022 Adult depression screening assessment No [facility] Aqua-tools y 250 DO Work Phone: Fall risk assessment a) No falls within the last year [facility] [employer] y 250 DO Work Phone: Tobacco use status CPHS b) No [facility] [employer] y 250 DO Work Phone: C REACTIVE PROTEINon 022 CRP [Mass/Vol] 3.3 mg/L Normal 0.0-7.0 [facility] Comment on above: Performed By: #### 6 1405 #### [facility] [address] CBC AUTO DIFFon 11-25-2021 BASO # 0.0 103/ul Normal 0.0-0.1 [facility] Comment on above: Performed By: #### G IPANEL #### [facility] Laboratory [address] [address] [address] Layla Barrera Basophils/100 WBC (Bld) 0.5 % Normal 0.2-2.0 [facility] Comment on above: Performed By: #### G IPANEL #### [facility] [address] [address] [address] Layla Barrera EO # 0.2 103/ul Normal 0.0-0.7 [facility] Comment on above: Performed By: #### G IPANEL #### [facility] [address] [address] [address] Layla Barrera Eosinophils/100 WBC (Bld) 3.0 % Normal 0.9-7.0 [facility] Comment on above: Performed By: #### G IPANEL #### [facility] Laboratory [address] [place] [address] Dr. Layla Barrera Erythrocyte distribution width (RBC) [Ratio] 13.7 % Normal 11.0-15.0 [facility] Comment on above: Performed By: #### G IPANEL #### [facility] [address] [address] [address] Layla Barrera Hematocrit (Bld) [Volume fraction] 40.0 % Critically low 42.0-54.0 [facility] Comment on above: Performed By: #### G IPANEL #### [facility] [address] [address] [address] Layla Barrera Hemoglobin (Bld) [Mass/Vol] 13.4 g/dL Critically low 14.0-18.0 [facility] Comment on above: Performed By: #### G IPANEL #### [facility] [address] [address] [address] Layla Barrera IG # 0.02 10e3/ul Normal 0.00-0.03 [facility] Comment on above: Performed By: #### G IPANEL #### [facility] [address] [address] [address] Layla Barrera IG % 0.3 % Normal 0.0-0.5 [facility] Comment on above: Performed By: #### G IPANEL #### [facility] [address] [place] [address] Dr. Layla Barrera LYMPH # 2.4 103/ul Normal 1.2-3.8 [facility] Comment on above: Performed By: #### G IPANEL #### [facility] [address] [place] [address] Dr. Layla Barrera Lymphocytes/100 WBC (Bld) 39.6 % Normal 20.5-60.0 [facility] Comment on above: Performed By: #### G IPANEL #### [facility] [address] [place] [address] Dr. Layla Barrera MANUAL DIFF REQ NO Normal [facility] Comment on above: Performed By: #### G IPANEL #### [facility] [address] [place] [address] Dr. Layla Barrera MCH (RBC) [Entitic mass] 31.3 pg Normal 25.9-34.0 [facility] Comment on above: Performed By: #### G IPANEL #### [facility] [address] [place] [address] Dr. Layla Barrera MCHC (RBC) [Mass/Vol] 33.5 g/dL Normal 29.9-35.2 [facility] Comment on above: Performed By: #### G IPANEL #### [facility] [address] [place] [address] Dr. Layla Barrera MCV (RBC) [Entitic vol] 93.5 fL Normal 80.0-94.0 [facility] Comment on above: Performed By: #### G IPANEL #### [facility] [address] [address] [address] Layla Barrera MONO # 0.6 103/ul Normal 0.3-0.8 [facility] Comment on above: Performed By: #### G IPANEL #### [facility] Laboratory [address] [place] [address] Dr. Layla Barrera Monocytes/100 WBC (Bld) 9.3 % Normal 1.7-12.0 [facility] Comment on above: Performed By: #### G IPANEL #### [facility] [address] [address] [address] Layla Barrera NEUT # 2.8 103/ul Normal 1.4-6.5 [facility] Comment on above: Performed By: #### G IPANEL #### [facility] [address] [place] [address] Dr. Layla Barrera Neutrophils/100 WBC (Bld) 47.3 % Normal 43.0-75.0 [facility] Comment on above: Performed By: #### G IPANEL #### [facility] Laboratory [address] [place] [address] Dr. Layla Barrera Platelet mean volume (Bld) [Entitic vol] 10.4 fL Normal 9.5-13.5 [facility] Comment on above: Performed By: #### G IPANEL #### [facility] [address] [place] [address] Dr. Layla Barrera PLT 184 103/ul Normal 150-450 [facility] Comment on above: Performed By: #### G IPANEL #### [facility] [address] [place] [address] Dr. Layla Barrera RBC 4.28 106/ul Critically low 4.70-6.10 [facility] Comment on above: Performed By: #### G IPANEL #### [facility] [address] [address] [address] Layla Barrera WBC 5.9 103/ul Normal 4.0-11.0 [facility] Comment on above: Performed By: #### G IPANEL #### [facility] [address] [place] [address] Dr. Layla Barrera CBC W/DIFFon 11-25-2021 ABS IMM GRANS 0.0 10*3/uL Normal 0.0-0.2 [facility] Comment on above: Performed By: #### 5 6505, 24568 #### [facility] [address] [place] [address], [facility] ABS NEUTROPHILS 3.6 10*3/uL Normal 1.6-7.6 [facility] Comment on above: Performed By: #### 5 6505, 94747 #### [facility] [address] [place] [address], [facility] Basophils (Bld) [#/Vol] 0.0 10*3/uL Normal 0.0-0.2 [facility] Comment on above: Performed By: #### 5 6505, 62908 #### [facility] [address] [facility] [place] [address], [facility] Basophils/100 WBC (Bld) 0.4 % Normal 0.0-1.0 [facility] Comment on above: Performed By: #### 5 6505, 41619 #### [facility] [address] [facility] [place] [address], [facility] Eosinophils (Bld) [#/Vol] 0.2 10*3/uL Normal 0.0-0.5 [facility] Comment on above: Performed By: #### 5 6505, 39564 #### [facility] [address] [place] [id number], [place] Eosinophils/100 WBC (Bld) 2.2 % Normal 0.0-6.0 [facility] Comment on above: Performed By: #### 5 6505, 95866 #### [facility] [address] [place] [address], [facility] Erythrocyte distribution width (RBC) [Ratio] 13.6 % Normal 11.5-15.0 [facility] Comment on above: Performed By: #### 5 6505, 25962 #### [facility] [address] [place] [address], [facility] Hematocrit (Bld) [Volume fraction] 40.4 % Normal 39.0-50.0 [facility] Comment on above: Performed By: #### 5 6505, 60529 #### [facility] [address] [place] [address], [facility] Hemoglobin (Bld) [Mass/Vol] 13.7 g/dL Normal 13.0-17.0 [facility] Comment on above: Performed By: #### 5 6505, 26226 #### [facility] [address] [place] [address], [facility] IMMATURE GRANS 0.3 % Normal 0.0-1.0 [facility] Comment on above: Performed By: #### 5 6505, 75767 #### [facility] [address] [facility] [place] [address], [facility] Lymphocytes (Bld) [#/Vol] 2.4 10*3/uL Normal 1.2-4.0 [facility] Comment on above: Performed By: #### 5 6505, 79861 #### [facility] [address] [place] [address], [facility] Lymphocytes/100 WBC (Bld) 35.0 % Normal 20.0-45.0 [facility] Comment on above: Performed By: #### 5 6505, 86244 #### [facility] [address] [place] [address], [facility] MCH (RBC) [Entitic mass] 31.8 pg Normal 27.0-33.0 [facility] Comment on above: Performed By: #### 5 6505, 79994 #### [facility] [address] [place] [id number], [facility] MCHC (RBC) [Mass/Vol] 33.9 g/dL Normal 32.0-35.0 [facility] Comment on above: Performed By: #### 5 6505, 34814 #### [facility] [address] [place] [address], [facility] MCV (RBC) [Entitic vol] 93.7 fL Normal 82.0-98.0 [facility] Comment on above: Performed By: #### 5 6505, 64948 #### [facility] [address] [place] [address], [facility] Monocytes (Bld) [#/Vol] 0.6 10*3/uL Normal 0.1-1.0 [facility] Comment on above: Performed By: #### 5 6505, 90878 #### [facility] [address] [place] [address], [facility] MONOS 8.4 % Normal 5.0-12.0 [facility] Comment on above: Performed By: #### 5 6505, 83100 #### [facility] [address] [place] [address], [facility] Neutrophils/100 WBC (Bld) 53.7 % Normal 40.0-72.0 [facility] Comment on above: Performed By: #### 5 6505, 53814 #### [facility] [address] [facility] [place] [address], [facility] Nucleated RBC/100 WBC (Bld) [Ratio] 0 % Normal 0-0 [facility] Comment on above: Performed By: #### 5 6505, 51023 #### [facility] [address] [place] [address], [facility] PLAT CNT 198 10*3/uL Normal 150-400 [facility] Comment on above: Performed By: #### 5 6505, 96736 #### [facility] [address] [place] [id number], [facility] RBC (Bld) [#/Vol] 4.31 10*6/uL Normal 4.20-5.70 [facility] Comment on above: Performed By: #### 5 6506, 37616 #### [facility] [address] [place] [address], [facility] WBC (Bld) [#/Vol] 6.75 10*3/uL Normal 4.00-10.60 [facility] Comment on above: Performed By: #### 5 6506, 42615 #### [facility] [address] [place] [address], [facility] COMP METABOLIC PANELon 11-25 Albumin [Mass/Vol] 4.1 g/dL Normal 3.5-5.7 [facility] Comment on above: Performed By: #### 0 0121 #### [facility] [address] [place] [address], [facility] ALKALINE PHOSPH 87 IU/L Normal 34-104 [facility] Comment on above: Performed By: #### 0 0121 #### [facility] [address] [place] [address], [facility] ALT [Catalytic activity/Vol] 47 U/L Normal 7-52 [facility] Comment on above: Performed By: #### 0 0121 #### [facility] [address] [place] [address], [facility] AST [Catalytic activity/Vol] 29 U/L Normal 13-39 [facility] Comment on above: Performed By: #### 0 0121 #### [facility] [address] [place] [address], [facility] Bilirubin [Mass/Vol] 0.7 mg/dL Normal 0.3-1.0 [facility] Comment on above: Performed By: #### 0 0121 #### [facility] [address] [place] [address], [facility] Calcium [Mass/Vol] 9.7 mg/dL Normal 8.6-10.3 [facility] Comment on above: Performed By: #### 0 0121 #### [facility] [address] [place] [address], [place] Chloride [Moles/Vol] 103 mmol/L Normal 98-107 [facility] Comment on above: Performed By: #### 0 0121 #### [facility] [address] [place] [address], [place] CO2 [Moles/Vol] 30 mmol/L Normal 21-31 [facility] Comment on above: Performed By: #### 0 0121 #### [facility] [address] [place] [address], [place] Creatinine [Mass/Vol] 1.06 mg/dL Normal 0.70-1.30 [facility] Comment on above: Performed By: #### 0 0121 #### [facility] [address] [place] [address], [place] GFR/1.73 sq M.predicted among blacks MDRD (S/P/Bld) [Vol rate/Area] mL/min/{1.73_m2} Normal >60 [facility] Comment on above: Result Comment: Calc ulation may not be valid for patients over 70 years Performed By: #### 0 0121 #### [facility] [address] [place] [address], [place] GFR/1.73 sq M.predicted among non-blacks MDRD (S/P/Bld) [Vol rate/Area] mL/min/{1.73_m2} Normal >60 [facility] Comment on above: Result Comment: Calc ulation may not be valid for patients over 70 years Performed By: #### 0 0121 #### [facility] [address] [place] [address], [place] Glucose [Mass/Vol] 94 mg/dL Normal 70-100 [facility] Comment on above: Performed By: #### 0 0121 #### [facility] [address] [place] [address], [place] Potassium [Moles/Vol] 4.7 mmol/L Normal 3.5-5.1 [facility] Comment on above: Performed By: #### 0 0121 #### [facility] [address] [place] [address], [facility] Protein [Mass/Vol] 6.6 g/dL Normal 6.0-8.3 [facility] Comment on above: Performed By: #### 0 0121 #### [facility] [address] [place] [address], [facility] Sodium [Moles/Vol] 138 mmol/L Normal 136-145 [facility] Comment on above: Performed By: #### 0 0121 #### [facility] [address] [place] [address], [facility] Urea nitrogen [Mass/Vol] 17 mg/dL Normal 7-25 [facility] Comment on above: Performed By: #### 0 0121 #### [facility] [address] [place] [address], [facility] FREE THYROXINE INDEX T7on FTI 2.38 Normal 1.30-4.50 [facility] Comment on above: Performed By: #### T SH, CMP, T7, MG #### [facility] [address] [address] [address] Layla Barrera T3U 34.0 % Normal 33.0-40.0 [facility] Comment on above: Performed By: #### T SH, CMP, T7, MG #### [facility] [address] [address] [address] Layla Barrera T4 [Mass/Vol] 7.00 ug/dL Normal 4.50-12.10 [facility] Comment on above: Performed By: #### T SH, CMP, T7, MG #### [facility] [address] [address] [address] Layla Barrera MAGNESIUMon 11-25-2021 Magnesium [Mass/Vol] 1.7 mg/dL Critically low 1.8-2.4 [facility] Comment on above: Performed By: #### T SH, CMP, T7, MG #### [facility] [address] [place] [address] Dr. Layla Barrera PROF 14(COMP METB)on 022 Albumin [Mass/Vol] 3.5 g/dL Normal 3.4-5.0 [facility] Comment on above: Performed By: #### T SH, CMP, T7, MG #### [facility] [address] [place] [address] Dr. Layla Barrera Albumin/Globulin [Mass ratio] 1.1 {ratio} Normal [facility] Comment on above: Performed By: #### T SH, CMP, T7, MG #### [facility] [address] [place] [address] Dr. Layla Barrera ALP [Catalytic activity/Vol] 97 U/L Normal 46-116 [facility] Comment on above: Performed By: #### T SH, CMP, T7, MG #### [facility] [address] [place] [address] Dr. Layla Barrera ALT [Catalytic activity/Vol] 64 U/L Critically high 16-63 [facility] Comment on above: Performed By: #### T SH, CMP, T7, MG #### [facility] [address] [place] [address] Dr. Layla Barrera Anion gap [Moles/Vol] 11.6 mmol/L Normal [facility] Comment on above: Performed By: #### T SH, CMP, T7, MG #### [facility] [address] [place] [address] Dr. Layla Barrera AST [Catalytic activity/Vol] 27 U/L Normal 15-37 [facility] Comment on above: Performed By: #### T SH, CMP, T7, MG #### [facility] [address] [place] [address] Dr. Layla Barrera Bilirubin [Mass/Vol] 0.8 mg/dL Normal 0.2-1.0 [facility] Comment on above: Performed By: #### T SH, CMP, T7, MG #### [facility] [address] [address] [address] Layla Barrera Calcium [Mass/Vol] 9.0 mg/dL Normal 8.5-10.1 [facility] Comment on above: Performed By: #### T SH, CMP, T7, MG #### [facility] [address] [address] [address] Layla Barrera Chloride [Moles/Vol] 102 mmol/L Normal 98-107 [facility] Comment on above: Performed By: #### T SH, CMP, T7, MG #### [facility] [address] [address] [address] Layla Barrera CO2 [Moles/Vol] 27.3 mmol/L Normal 21.0-32.0 [facility] Comment on above: Performed By: #### T SH, CMP, T7, MG #### [facility] [address] [place] [address] Dr. Layla Barrera Creatinine [Mass/Vol] 1.15 mg/dL Normal 0.70-1.30 [facility] Comment on above: Performed By: #### T SH, CMP, T7, MG #### [facility] [address] [place] [address] Dr. Layla Barrera EGFR-AF [place] >60 Normal >=60 [facility] Comment on above: Performed By: #### T SH, CMP, T7, MG #### [facility] [address] [place] [address] Dr. Layla Barrera EGFR-NON AF [place] >60 Normal >=60 [facility] Comment on above: Performed By: #### T SH, CMP, T7, MG #### [facility] [address] [address] [address] Layla Barrera Globulin (S) [Mass/Vol] 3.3 g/dL Normal [facility] Comment on above: Performed By: #### T SH, CMP, T7, MG #### [facility] [address] [place] [address] Dr. Layla Barrera Glucose [Mass/Vol] 144 mg/dL Critically high 74-106 [facility] Comment on above: Performed By: #### T SH, CMP, T7, MG #### [facility] [address] [place] [address] Dr. Layla Barrera Potassium [Moles/Vol] 3.9 mmol/L Normal 3.5-5.1 [facility] Comment on above: Performed By: #### T SH, CMP, T7, MG #### [facility] [address] [place] [address] Dr. Layla Barrera Protein [Mass/Vol] 6.8 g/dL Normal 6.4-8.2 [facility] Comment on above: Performed By: #### T SH, CMP, T7, MG #### [facility] [address] [place] [address] Dr. Layla Barrera Sodium [Moles/Vol] 137 mmol/L Normal 136-145 [facility] Comment on above: Performed By: #### T SH, CMP, T7, MG #### [facility] [address] [place] [address] Dr. Layla Barrera Urea nitrogen [Mass/Vol] 16.0 mg/dL Normal 7.0-18.0 [facility] Comment on above: Performed By: #### T SH, CMP, T7, MG #### [facility] [address] [place] [address] Dr. Layla Barrera Urea nitrogen/Creatinine [Mass ratio] 13.9 mg/mg Normal [facility] Comment on above: Performed By: #### T SH, CMP, T7, MG #### [facility] [address] [place] [address] Dr. Layla Barrera SEDIMENTATION RATEon 022 SED RATE 10 mm/hr Normal 0-10 [facility] Comment on above: Performed By: #### 5 6506, 63275 #### [facility] [address] [place] [address], [facility] TSHon 11-25-2021 TSH 2.406 uIU/mL Normal 0.358-3.740 [facility] Comment on above: Performed By: #### T SH, CMP, T7, MG #### [facility] [address] [address] [address] Layla Barrera TSH RANGE SEE BELOW Normal [facility] Comment on above: Result Comment: <0.3 4 UIU/ml HYPERTHYROID 0.34-5.60 UIU/ml EUTHYROID >5.60 UIU/ml HYPOTHYROID Performed By: #### T SH, CMP, T7, MG #### [facility] [address] [address] [address] Layla Barrera CBC W/DIFFon 05-27-2021 ABS IMM GRANS 0.0 10*3/uL Normal 0.0-0.2 [facility] Comment on above: Performed By: #### 5 0103 #### [facility] [address] [facility] [place] [address], [facility] ABS NEUTROPHILS 3.8 10*3/uL Normal 1.6-7.6 [facility] Comment on above: Performed By: #### 5 0103 #### [facility] [address] [facility] [place] [address], [facility] Basophils (Bld) [#/Vol] 0.0 10*3/uL Normal 0.0-0.2 [facility] Comment on above: Performed By: #### 5 0103 #### [facility] [address] [place] [address], [facility] Basophils/100 WBC (Bld) 0.6 % Normal 0.0-1.0 [facility] Comment on above: Performed By: #### 5 0103 #### [facility] [address] [place] [address], [facility] Eosinophils (Bld) [#/Vol] 0.2 10*3/uL Normal 0.0-0.5 [facility] Comment on above: Performed By: #### 5 0103 #### [facility] [address] [place] [address], [facility] Eosinophils/100 WBC (Bld) 2.7 % Normal 0.0-6.0 [facility] Comment on above: Performed By: #### 5 0103 #### [facility] [address] [facility]. [address] Erythrocyte distribution width (RBC) [Ratio] 13.4 % Normal 11.5-15.0 [facility] Comment on above: Performed By: #### 5 0103 #### [facility] [address] [facility]. [address] Hematocrit (Bld) [Volume fraction] 41.7 % Normal 39.0-50.0 [facility] Comment on above: Performed By: #### 5 0103 #### [facility] [address] [facility] [address] Hemoglobin (Bld) [Mass/Vol] 14.3 g/dL Normal 13.0-17.0 [facility] Comment on above: Performed By: #### 5 0103 #### [facility] [address] [facility]. [address] IMMATURE GRANS 0.6 % Normal 0.0-1.0 [facility] Comment on above: Performed By: #### 5 0103 #### [facility] [address] [facility]. [address] Lymphocytes (Bld) [#/Vol] 2.5 10*3/uL Normal 1.2-4.0 [facility] Comment on above: Performed By: #### 5 3 #### [facility] [address] [facility] [place] [address], [facility] Lymphocytes/100 WBC (Bld) 35.0 % Normal 20.0-45.0 [facility] Comment on above: Performed By: #### 5 3 #### [facility] [address] [place] [address], [facility] MCH (RBC) [Entitic mass] 31.6 pg Normal 27.0-33.0 [facility] Comment on above: Performed By: #### 102 #### [facility] [address] [facility]. [address] MCHC (RBC) [Mass/Vol] 34.3 g/dL Normal 32.0-35.0 [facility] Comment on above: Performed By: #### 3 #### [facility] [address] [facility] [place] [address], [facility] MCV (RBC) [Entitic vol] 92.3 fL Normal 82.0-98.0 [facility] Comment on above: Performed By: #### 102 #### [facility] [address] [place] [address], [facility] Monocytes (Bld) [#/Vol] 0.5 10*3/uL Normal 0.1-1.0 [facility] Comment on above: Performed By: #### 102 #### [facility] [address] MONOS 7.4 % Normal 5.0-12.0 [facility] Comment on above: Performed By: #### 102 #### [facility] [address] [facility] Neutrophils/100 WBC (Bld) 53.7 % Normal 40.0-72.0 [facility] Comment on above: Performed By: #### 102 #### [facility] [address] [facility] [place] [address], [facility] Nucleated RBC/100 WBC (Bld) [Ratio] 0 % Normal 0-0 [facility] Comment on above: Performed By: #### 102 #### [facility] [address] [place] [address], [facility] PLAT CNT 194 10*3/uL Normal 150-400 [facility] Comment on above: Performed By: #### 102 #### [facility] [address] [place] [address], [facility] RBC (Bld) [#/Vol] 4.52 10*6/uL Normal 4.20-5.70 [facility] Comment on above: Performed By: #### 5 0103 #### [facility] [address] [place] [address], [facility] WBC (Bld) [#/Vol] 7.02 10*3/uL Normal 4.00-10.60 [facility] Comment on above: Performed By: #### 5 0103 #### [facility] [address] [place] [address], [facility] LIVER BATTERYon 05-27-2021 Albumin [Mass/Vol] 4.1 g/dL Normal 3.5-5.7 [facility] Comment on above: Performed By: #### 9 [id number] #### [facility] [address] [place] [address], [facility] ALKALINE PHOSPH 75 IU/L Normal 34-104 [facility] Comment on above: Performed By: #### 9 [id number] #### [facility] [address] [place] [address], [facility] ALT [Catalytic activity/Vol] 42 U/L Normal 7-52 [facility] Comment on above: Performed By: #### 9 [id number] #### [facility] [address] [place] [address], [facility] AST [Catalytic activity/Vol] 27 U/L Normal 13-39 [facility] Comment on above: Performed By: #### 9 [id number] #### [facility] [address] [place] [address], [facility] Bilirubin [Mass/Vol] 0.5 mg/dL Normal 0.3-1.0 [facility] Comment on above: Performed By: #### 9 [id number] #### [facility] [address] [facility] [place] [address], [facility] Bilirubin.direct [Mass/Vol] 0.1 mg/dL Normal 0.0-0.2 [facility] Comment on above: Performed By: #### 9 [id number] #### [facility] [address] [place] [address], [facility] Protein [Mass/Vol] 6.8 g/dL Normal 6.0-8.3 [facility] Comment on above: Performed By: #### 9 [id number] #### [facility] [address] [place] [address], [facility] Vital Signs Date Time Vital Sign Value Performing Clinician Facility 03-20-2023 14:45-0400 Diastolic blood pressure 92 mm[Hg] Nguyễn TENORIO [facility] 03-20-2023 14:45-0400 Mean blood pressure 111 mm[Hg] Nguyễn TENORIO [facility] 03-20-2023 14:45-0400 Systolic blood pressure 150 mm[Hg] Nguyễn TENORIO [facility] 03-20-2023 14:29-0400 Blood Pressure Location Nguyễn TENORIO [facility] 03-20-2023 14:29-0400 Diastolic blood pressure 91 mm[Hg] Nguyễn TENORIO [facility] 03-20-2023 14:29-0400 Heart rate 86 /min Nguyễn TENORIO [facility] 03-20-2023 14:29-0400 Systolic blood pressure 158 mm[Hg] Nguyễn TENORIO [facility] 12-28-2021 10:15-0400 Body height 177.8 cm Mayra M Hoy Work Phone: [facility] 250 DO Work Phone: 12-28-2021 10:15-0400 Body mass index (BMI) [Ratio] 34.15 kg/m2 Mayra M Hoy Work Phone: [facility] 250 DO Work Phone: 12-28-2021 10:15-0400 Body surface area Derived from formula 2.25 m2 Mayra M Hoy Work Phone: [facility] DO Work Phone: 12-28-2021 10:15-0400 Body weight 107.96 kg Mayra M Hoy Work Phone: [facility] DO Work Phone: 12-28-2021 10:15-0400 Diastolic blood pressure 70 mm[Hg] Mayra M Hoy Work Phone: [facility] DO Work Phone: 12-28-2021 10:15-0400 Heart rate 60 /min Mayra Jesse Hoy Work Phone: [facility] DO Work Phone: 12-28-2021 10:15-0400 Systolic blood pressure 138 mm[Hg] Mayra Jesse Hoy Work Phone: [facility] DO Work Phone: 12-28-2021 09:51-0400 Body height 177.8 cm Mayra M Hoy Work Phone: [facility] DO Work Phone: 12-28-2021 09:51-0400 Body mass index (BMI) [Ratio] 34.15 kg/m2 Mayra M Hoy Work Phone: [facility] DO Work Phone: 12-28-2021 09:51-0400 Body surface area Derived from formula 2.25 m2 Mayra M Hoy Work Phone: [facility] 250 DO Work Phone: 12-28-2021 09:51-0400 Body weight 107.96 kg Mayra M Hoy Work Phone: [facility] 250 DO Work Phone: 12-28-2021 09:51-0400 Diastolic blood pressure 70 mm[Hg] Mayra M Hoy Work Phone: [facility] [address] DO Work Phone: 12-28-2021 09:51-0400 Heart rate 60 /min Mayra M Hoy Work Phone: [facility] DO Work Phone: 12-28-2021 09:51-0400 Systolic blood pressure 146 mm[Hg] Mayra M Hoy Work Phone: [facility] DO Work Phone: 12-22-2021 08:00-0400 53 1 Mayra M Hoy Work Phone: [facility] DO Work Phone: Comment on above: [id number] 12-08-2021 15:22-0400 Body height 177.8 cm Mayra M Hoy Work Phone: [facility] DO Work Phone: 12-08-2021 15:22-0400 Body mass index (BMI) [Ratio] 34.15 kg/m2 Mayra M Hoy Work Phone: [facility] DO Work Phone: 12-08-2021 15:22-0400 Body surface area Derived from formula 2.25 m2 Mayra M Hoy Work Phone: [facility] 250 DO Work Phone: 12-08-2021 15:22-0400 Body weight 107.96 kg Mayra M Hoy Work Phone: [facility] DO Work Phone: 12-08-2021 15:22-0400 Diastolic blood pressure 70 mm[Hg] Mayra M Hoy Work Phone: [facility] DO Work Phone: 12-08-2021 15:22-0400 Heart rate 87 /min Mayra M Hoy Work Phone: [facility] DO Work Phone: 12-08-2021 15:22-0400 Systolic blood pressure 138 mm[Hg] Mayra M Hoy Work Phone: [facility] DO Work Phone: 12-08-2021 15:12-0400 Diastolic blood pressure 70 mm[Hg] Mayra M Hoy Work Phone: [facility] DO Work Phone: 12-08-2021 15:12-0400 Systolic blood pressure 140 mm[Hg] Mayra M Hoy Work Phone: [facility] DO Work Phone: 12-08-2021 15:08-0400 Body height 177.8 cm Mayra M Hoy Work Phone: [facility] DO Work Phone: 12-08-2021 15:08-0400 Body mass index (BMI) [Ratio] 34.15 kg/m2 Mayra M Hoy Work Phone: [facility] 250 DO Work Phone: 12-08-2021 15:08-0400 Body surface area Derived from formula 2.25 m2 Mayra M Hoy Work Phone: [facility] DO Work Phone: 12-08-2021 15:08-0400 Body weight 107.96 kg Mayra Correay Work Phone: [facility] DO Work Phone: 12-08-2021 15:08-0400 Diastolic blood pressure 82 mm[Hg] Mayra David Work Phone: [facility] DO Work Phone: 12-08-2021 15:08-0400 Heart rate 87 /min Mayra Correay Work Phone: [facility] DO Work Phone: 12-08-2021 15:08-0400 Systolic blood pressure 142 mm[Hg] Mayra Molina Hoy Work Phone: [facility] DO Work Phone: Encounters Encounter Date Encounter Type Care Provider Facility Start: 09-18-2023 [facility] Start: 04-05-2023 ambulatory MAYRA DAVID [facility] Start: 04-05-2023 End: 04-05-2023 ambulatory [facility] Start: 03-20-2023 End: 03-21-2023 ambulatory Nguyễn TENORIO Facility:[facility] Start: 03-20-2023 End: 03-20-2023 Patient encounter procedure Nguyễn TENORIO [facility] Start: 02-23-2023 End: 02-23-2023 ambulatory LUIS DANIEL Molina [facility] Start: 10-28-2022 DAYNA ORR, Provider : ALIYA YOUNG PRECIPITATE WASHER 1,[id number], Status: Pen, Time: 10:00 AM Mayra David Work Phone: [facility] DO Work Phone: Start: 10-28-2022 Patient encounter procedure Mayra David Work Phone: [facility] DO Work Phone: Start: 10-28-[address] [facility] Facility: Start: 10-27-2022 End: 10-27-[address] [facility] Start: 10-27-2022 Telephone encounter Mayra David Work Phone: [facility] 250 DO Work Phone: Start: 10-25-2022 End: 10-26-2022 ambulatory KWADWO CRUMP Facility:[facility] Start: 08-25-2022 End: 08-25-2022 ambulatory LUIS DANIEL Molina [facility] Start: 06-20-2022 End: 06-21-[address] MAYRA DAVID . Facility:[facility] Start: 03-11-2022 End: 03-12-[address] MAYRA DAVID . Facility:[facility] Start: 01-25-2022 Rx Renewal Mayra David Work Phone: [facility] 600 DO Work Phone: Start: 12-30-2021 Chart Update Mayra David Work Phone: [facility] DO Work Phone: Start: 12-28-2021 Office outpatient vi sit 25 minutes Mayra David Work Phone: [facility] DO Work Phone: Start: 12-28-2021 Patient encounter procedure Mayra David Work Phone: [facility] DO Work Phone: Start: 12-28-[address] Mayra David Facility: Start: 12-08-2021 Office outpatient vi sit 25 minutes Mayra M Sunnyy Work Phone: [facility] DO Work Phone: Start: 12-08-[address] Mayra David Facility: Start: 11-25-2021 End: 11-26-[address] MAYRA DAVID . Facility: Start: 11-24-2021 End: 11-25-[address] MAYRA DAVID . Facility: Procedures Date Procedure Procedure Detail Performing Clinician Start: 06-20-[address] MAYRA DAVID . Comment on above: Performed By: #### GIPANEL #### [facility] [address] [place] [address] Dr. Layla Barrera Start: 04-09-2014 right knee arthroscopy Nguyễn TENORIO Start: 02-25-2003 Cystoscopic removal of ureteric stent Nguyễn TENORIO Arthroscopic knee operation Nguyễn TENORIO Comment on above: left Arthroscopy of knee Mayra M Sunnyy Work Phone: Comment on above: (Therapeutic) Bilateral; Cardiac catheterization Ruben las M Landon Work Phone: Colonoscopy Nguyễn TENORIO Comment on above: many Cystoscopy Nguyễn TENORIO Elbow joint operations Rubenl as M Landon Work Phone: Comment on above: Left; Esophagogastroduodenoscopy P atrick MIRIAN Excision of basal cell carcinoma Mayra M Hoy Work Phone: Extracorporeal shock wave lithotripsy of calculus of kidney Nguyễnmaranda TENORIO heart catheterization Krish slime TENORIO Hemorrhoidectomy Nguễyn OPAL GOLDEN History of repair of musculotendinous cuff of shoulder Nguyễnmaranda TENORIO Comment on above: left Operation on nose Mayra M Hoy Work Phone: Prostate Surgery Nguyễnmaranda JOSEPH ERS Renal lithotripsy Mayra Molina Hoy Work Phone: Repair of elbow Nguyễnmaranda JOSEPHE RS Comment on above: left Repair of musculoten dinous cuff of shoulder Mayra Molina Hoy Work Phone: Comment on above: Left; Shoulder Surgery Nguyễn OPAL ERS Total colonoscopy Mayra Molina Hoy Work Phone: Comment on above: 10Jul2017; Plan of Treatment Date Care Activity Detail Author Start: 12-06-2022 FUV, Provider: Johnnie Elliott, Status: Pen, Time: 10:00 AM FUV, Provider: Johnnie Elliott, Status: Pen, Time: 10:00 AM [facility] [employer] [facility] 250 DO Work Phone: Start: 11-24-2022 FUV, Provider: Johnnie Elliott, Status: Pen, Time: 2:00 PM FUV, Provider: Johnnie Elliott, Status: Pen, Time: 2:00 PM [facility] [employer] [facility] 250 DO Work Phone: Start: 12-28-2021 FUV, Provider: Johnnie Elliott, Status: Pen, Time: 9:45 AM FUV, Provider: Johnnie Elliott, Status: Pen, Time: 9:45 AM [facility] [employer] [facility] 250 DO Work Phone: Start: 12-22-2021 REST ONLY, Provider: SABINE HHVI NUCLEAR 01,[id number], Status: Pen, Time: 8:00 AM REST ONLY, Provider: SABINE HHVI NUCLEAR 01,[id number], Status: Pen, Time: 8:00 AM [facility] DO Work Phone: Start: 12-21-2021 STRESSNUC2, Provider : SABINE HHVI NUCLEAR 01,[id number], Status: Pen, Time: 8:00 AM STRESSNUC2, [facility],[id number], Status: Pen, Time: 8:00 AM [facility] 250 DO Work Phone: Immunizations Immunization Date Immunization Notes Care Provider Rachele brian 07-26-2022 Fluad Quadrivalent 0 .5 ML Intramuscular Prefilled Syringe [facility]ra [facility] Work Phone: 07-26-2022 influenza virus vacc ine, unspecified formulation Nguyễn [employer] [facility] 11-17-2021 Comirnaty 30 MCG/0.3 ML Intramuscular Suspension [facility] Work Phone: 11-17-2021 SARS-CoV-2 mRNA (iopkoegnfic-wfiv-dczifb e) vaccine Nguyễn [employer] [facility] 05-20-2021 Pfizer-BioNTech COVI D-19 Vacc 30 MCG/0.3ML Intramuscular Suspension Mayra David Work Phone: [facility] Comment on above: Result Comment: 2022: [id number] 11-17-2020 SARS-CoV-2 (COVID-19 ) mRNA BNT-162b2 vax Nguyễn Faraday [employer] [facility] 10-29-2020 Pfizer-BioNTech COVI D-19 Vacc 30 MCG/0.3ML Intramuscular Suspension Mayra David Work Phone: [facility] Comment on above: Result Comment: 2022: [id number] 10-27-2020 SARS-CoV-2 (COVID-19 ) mRNA BNT-162b2 vax Nguyễn [employer] [facility] 10-06-2020 [employer] COVI D-19 Vacc 30 MCG/0.3ML Intramuscular Suspension Mayra David Work Phone: [facility] Comment on above: Result Comment: 2022: [id number] 04-23-2020 influenza virus vacc ine, unspecified formulation Ovice[employer] [facility] 04-23-2020 influenza, high dose seasonal, preservative-free Mayra Molina [email or web address] Work Phone: [facility] [employer] DO Work Phone: 04-09-2018 influenza virus vacc ine, unspecified formulation Mayra Molina [employer] Work Phone: [facility] [employer] DO Work Phone: 07-10-2017 pneumococcal polysaccharide vaccine, 23 valent Mayra Molina [employer] Work Phone: [facility] [employer] DO Work Phone: 04-09-2016 influenza virus vacc ine, unspecified formulation Mayra Molina [employer] Work Phone: [facility] [employer] DO Work Phone: 04-09-2016 pneumococcal conjuga te vaccine, 13 valent Mayra Molina [employer] [facility] Work Phone: 04-22-2015 influenza virus vacc ine, unspecified formulation Nguyễn TENORIO [facility] 04-22-2015 influenza, injectabl e, quadrivalent, contains preservative Mayra Molina [employer] Work Phone: [facility] [employer] 250 DO Work Phone: 04-09-2015 influenza virus vacc ine, unspecified formulation Mayra Molina [employer] [facility] Work Phone: 05-22-2014 influenza virus vacc ine, unspecified formulation Nguyễn TENORIO [facility] 05-22-2014 influenza, injectabl e, quadrivalent, contains preservative Mayra Molina Hoy Work Phone: [facility] [employer] [facility] 250 DO Work Phone: 07-10-2012 influenza virus vacc ine, unspecified formulation Mayra Jesse [facility]oy [facility]: [facility] Work Phone: 07-10-2011 pneumococcal polysaccharide vaccine, 23 valent Mayra Molina Hoy Work Phone: [facility] Work Phone: influenza virus vacc ine, unspecified formulation Mayra Molina Hoy Work Phone: [facility] 250 DO Work Phone: Comment on above: 2011 Payers Date Payer Category Payer Medicare [id number] 1959 Private Health Insurance [id number] 1941 Unknown [id number] .. [id number] 1941 Unknown [id number] . [id number] 1941 Unknown [id number] .. [id number] 1941 Unknown [id number] 2.16.84 [id number] 1941 Unknown [id number] 2.16.84 [id number] 1941 Unknown [id number] 2.16.84 [id number] 1941 Unknown [id number] 2.16.84 [id number] 1941 Unknown [id number] 2.16.84 [id number] 1941 Unknown [id number] 2.16.8 [id number] 1941 Unknown [id number] 2.16.8 [id number] 1941 Unknown [id number] 2.16.8 [id number] 1941 Unknown [id number] 2.16.8 [id number] Unknown Social History Date Type Detail Facility Caffeine use Caffeine use -[facility] 250 DO Work Phone: Comment on above: Coffee: 1 cup dailyS ac- Occasionally; Quit: 1991; Start: 03-20-2023 Tobacco smoking status Ex-smoker (fi nding) [facility] Tobacco smoking status Never [facility] Sex Assigned At Male [facility] Functional Status Date Assessment Result Facility 03-20-2023 Functional Status N/A [facility] Clinical Notes 08-25-2022 to 06-09-2023 Note Date & Type Note Facility 06-09-2023 Note TC to patient notifi ed of nephrology referral has been sent. [facility] 06-09-2023 Note Pt called needing a referral for nephrology. Pt states he would like to set up an appointment in [place], discussed in telephone call with you. [facility] 03-20-2023 Hospital Discharge instructions Patient Education 03/20/2023 15:32:34 Benign Prostatic Hyperplasia Benign Prostatic Hyperplasia Benign prostatic hyperplasia (BPH) is an enlarged prostate gland that is caused by the normal aging process. The prostate may get bigger as a man gets older. The condition is not caused by cancer. The prostate is a walnut-sized gland that is involved in the production of semen. It is located in front of the rectum and below the bladder. The bladder stores urine. The urethra carries stored urine out of the body. An enlarged prostate can press on the urethra. This can make it harder to pass urine. The buildup of urine in the bladder can cause infection. Back pressure and infection may progress to bladder damage and kidney (renal) failure. What are the causes? This condition is part of the normal aging process. However, not all men develop problems from this condition. If the prostate enlarges away from the urethra, urine flow will not be blocked. If it enlarges toward the urethra and compresses it, there will be problems passing urine. What increases the risk? This condition is more likely to develop in men older than 50 years. What are the signs or symptoms? Symptoms of this condition include: Getting up often during the night to urinate. Needing to urinate frequently during the day. Difficulty starting urine flow. Decrease in size and strength of your urine stream. Leaking (dribbling) after urinating. Inability to pass urine. This needs immediate treatment. Inability to completely empty your bladder. Pain when you pass urine. This is more common if there is also an infection. Urinary tract infection (UTI). How is this diagnosed? This condition is diagnosed based on your medical history, a physical exam, and your symptoms. Tests will also be done, such as: A post-void bladder scan. This measures any amount of urine that may remain in your bladder after you finish urinating. A digital rectal exam. In a rectal exam, your health care provider checks your prostate by putting a lubricated, gloved finger into your rectum to feel the back of your prostate gland. This exam detects the size of your gland and any abnormal lumps or growths. An exam of your urine (urinalysis). A prostate specific antigen (PSA) screening. This is a blood test used to screen for prostate cancer. An ultrasound. This test uses sound waves to electronically produce a picture of your prostate gland. Your health care provider may refer you to a specialist in kidney and prostate diseases (urologist). How is this treated? Once symptoms begin, your health care provider will monitor your condition (active surveillance or watchful waiting). Treatment for this condition will depend on the severity of your condition. Treatment may include: Observation and yearly exams. This may be the only treatment needed if your condition and symptoms are mild. Medicines to relieve your symptoms, including: ?Medicines to shrink the prostate. ?Medicines to relax the muscle of the prostate. Surgery in severe cases. Surgery may include: ?Prostatectomy. In this procedure, the prostate tissue is removed completely through an open incision or with a laparoscope or robotics. ?Transurethral resection of the prostate (TURP). In this procedure, a tool is inserted through the opening at the tip of the penis (urethra). It is used to cut away tissue of the inner core of the prostate. The pieces are removed through the same opening of the penis. This removes the blockage. ?Transurethral incision (TUIP). In this procedure, small cuts are made in the prostate. This lessens the prostate's pressure on the urethra. ?Transurethral microwave thermotherapy (TUMT). This procedure uses microwaves to create heat. The heat destroys and removes a small amount of prostate tissue. ?Transurethral needle ablation (TUNA). This procedure uses radio frequencies to destroy and remove a small amount of prostate tissue. ?Interstitial laser coagulation (ILC). This procedure uses a laser to destroy and remove a small amount of prostate tissue. ?Transurethral electrovaporization (TUVP). This procedure uses electrodes to destroy and remove a small amount of prostate tissue. ?Prostatic urethral lift. This procedure inserts an implant to push the lobes of the prostate away from the urethra. Follow these instructions at home: Take [id number] and prescription medicines only as told by your health care provider. Monitor your symptoms for any changes. Contact your health care provider with any changes. Avoid drinking large amounts of liquid before going to bed or out in public. Avoid or reduce how much caffeine or alcohol you drink. Give yourself time when you urinate. Keep all follow-up visits. This is important. Contact a health care provider if: You have unexplained back pain. Your symptoms do not get better with treatment. You develop side effects from the medicine you are taking. Your urine becomes very dark or has a bad smell. Your lower abdomen becomes distended and you have trouble passing urine. Get help right away if: You have a fever or chills. You suddenly cannot urinate. You feel light-headed or very dizzy, or you faint. There are large amounts of blood or clots in your urine. Your urinary problems become hard to manage. You develop moderate to severe low back or flank pain. The flank is the side of your body between the ribs and the hip. These symptoms may be an emergency. Get help right away. Call 911. Do not wait to see if the symptoms will go away. Do not drive yourself to the hospital. Summary Benign prostatic hyperplasia (BPH) is an enlarged prostate that is caused by the normal aging process. It is not caused by cancer. An enlarged prostate can press on the urethra. This can make it hard to pass urine. This condition is more likely to develop in men older than 50 years. Get help right away if you suddenly cannot urinate. This information is not intended to replace advice given to you by your health care provider. Make sure you discuss any questions you have with your health care provider. Document Revised: 01/12/2022 Document Reviewed: 01/12/2022 [employer] Patient Education 2022 [employer]. Follow Up Care 08/23/2021 11:50:10 With:MIRIAN TURNER, Nguyễn Peter, URL Address: [facility] [address], [place] [address] [phone] When:Within 6 Month(s) [facility] [place] 02-23-2023 Note Attestation signed by Luis Daniel Brunner MD at 02/24/2023 12:15 PM As the teaching physician, I have personally performed or re-performed the history of present illness, physical exam and medical decision making activities of the encounter and verified the medical student's documentation. I made pertinent changes as necessary to ensure accurate documentation. Subjective Patient ID: Travis Coburn is a 82 y.o. male who presents for Follow-up (4 mo follow up /psoriatic RA/polymayalgia rheumatica). HPI Mr. Travis Coburn is a 81 y.o. male with OA, CTS, Polymyalgia Rheumatica and Psoriatic Arthritis who presents today for routine follow-up. He has been doing well since his last appointment in October. He has been on 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 5 tablets weekly as well as prednisone 2.5 mg daily. He has a history of recurrent UTIs and a recent history of an E. Coli GI infection with bacterial overgrowth that he is worried these are exacerbated by 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 use. His last urinary infection was 3 months ago. His mouth sores have been healing well. He does feel that his pain and stiffness has been well controlled, however, with this current medication regimen. Review of Systems Constitutional: Negative for appetite change, chills and fatigue. HENT: Negative for mouth sores. Respiratory: Negative for cough and shortness of breath. Cardiovascular: Negative for chest pain. Gastrointestinal: Negative for diarrhea, nausea and vomiting. Musculoskeletal: Positive for arthralgias. Negative for back pain and joint swelling. Psychiatric/Behavioral: Negative for agitation. The patient is not nervous/anxious. Objective Visit Vitals BP 130/74 (BP Location: Left arm, Patient Position: Sitting) Pulse 81 Ht 1.753 m (5' 9 ) Wt 110 kg (242 lb) BMI 35.74 kg/m??? Smoking Status Never BSA 2.31 m??? Physical Exam Vitals reviewed. Constitutional: Appearance: Normal appearance. HENT: Head: Normocephalic and atraumatic. Nose: Nose normal. Eyes: Extraocular Movements: Extraocular movements intact. Conjunctiva/sclera: Conjunctivae normal. Pupils: Pupils are equal, round, and reactive to light. Cardiovascular: Rate and Rhythm: Normal rate and regular rhythm. Pulses: Normal pulses. Heart sounds: Normal heart sounds. Pulmonary: Effort: Pulmonary effort is normal. Breath sounds: Normal breath sounds. Musculoskeletal: General: No swelling, tenderness, deformity or signs of injury. Normal range of motion. Cervical back: Normal range of motion and neck supple. Skin: General: Skin is warm. Neurological: General: No focal deficit present. Mental Status: He is alert. Psychiatric: Mood and Affect: Mood normal. Behavior: Behavior normal. Assessment/Plan Patient is an 81 yo M who is here for follow-up of Polymyalgia Rheumatica and Psoriatic Arthritis currently on 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 5 tablets weekly and prednisone 2.5 mg daily. He has a history of urinary tract infections and a recent E. Coli GI infection with bacterial overgrowth. Plan: - Continue 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 5 tablets and prednisone 2.5 mg daily - We discussed approaches to the management he is not interested currently in use of biologic treatment particularly IL-6 receptor inhibitor for Polymyalgia rheumatica. - He was reminded of the potential risk and benefit of 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 including chance of infection nausea hair loss oral ulcers or liver toxicity bone marrow toxicity etc. and the need to have regular laboratory monitoring for potential 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 toxicity/side effect. Also we discussed the potential use of IL-6 inhibitor to control symptoms of polymyalgia rheumatica and allow him to be completely off steroids Risks and benefits of 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 were discussed including but not limited to increased chance for infection, nausea, hair loss, oral ulcers, liver toxicity, bone marrow toxicity, etc. The patient was counseled to limit alcohol use. The need for regular lab monitoring for potential 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 toxicity/side effects was discussed with the patient. Follow-up in 3 months Keerthi Razo, MS4 [facility] 10-27-2022 Note Subjective Patient ID: Travis Coburn is a 81 y.o. male who presents for Follow-up (DISCUSS MEDS ). HPI Mr. Travis Coburn is a 81 y.o. male with OA, CTS, Polymyalgia Rheumatica and Psoriatic Arthritis who presents today for routine follow-up. Recently he had E. coli gastrointestinal infection and was also diagnosed with bacterial overgrowth in his stomach he was told that this may be related to use of Humira thus he discontinued the Humira. He did well without Humira on 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 however 2 weeks ago he had severe bout of mouth ulceration and thus he discontinued 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 2. He feels some return of polymyalgia symptoms however there is no return of psoriasis or psoriatic arthritis . Review of Systems HENT: Positive for hearing loss. Gastrointestinal: Positive for abdominal distention. Musculoskeletal: Positive for arthralgias, back pain (lower) and myalgias. Negative for joint swelling. Skin: no rashes All other systems reviewed and are negative. Objective Visit Vitals BP 124/78 (BP Location: Left arm, Patient Position: Sitting) Pulse 82 Physical Exam Vitals reviewed. Constitutional: General: He is not in acute distress. Appearance: He is obese. He is not ill-appearing, toxic-appearing or diaphoretic. HENT: Head: Normocephalic and atraumatic. Eyes: General: No scleral icterus. Cardiovascular: Rate and Rhythm: Normal rate and regular rhythm. Pulses: Normal pulses. Heart sounds: Normal heart sounds. Pulmonary: Effort: Pulmonary effort is normal. No respiratory distress. Breath sounds: Normal breath sounds. Abdominal: General: Bowel sounds are normal. There is distension. Palpations: Abdomen is soft. Musculoskeletal: General: No swelling, tenderness or deformity. Skin: Coloration: Skin is not jaundiced. No psoriatic lesions Neurological: General: No focal deficit present. Mental Status: He is alert and oriented to person, place, and time. Mental status is at baseline. Psychiatric: Mood and Affect: Mood normal. Behavior: Behavior normal. Thought Content: Thought content normal. Judgment: Judgment normal. Assessment/Plan 81 yo M who is here for follow-up of Polymyalgia Rheumatica and Psoriatic Arthritis He he stopped using Humira after a bout of E. coli gastrointestinal infection and bacterial overgrowth and stomach the exact investigative tool was used to determine bacterial overgrowth is really not cleared nonetheless he is off Humira and he did well just staying on 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 however unfortunately he had an exacerbation of oral ulceration and discontinued 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. Currently he is beginning to have fibromyalgia-like symptoms. We discussed approaches to the management he is not interested currently in use of biologic treatment particularly IL-6 receptor inhibitor for Polymyalgia rheumatica But he is willing to discontinue folic acid and start on leucovorin wait till the ulceration is resolved and start back on 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 at 5 tablet instead of 6 weekly He was reminded of the potential risk and benefit of 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 including chance of infection nausea hair loss oral ulcers or liver toxicity bone marrow toxicity etc. and the need to have regular laboratory monitoring for potential 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 toxicity/side effect. Also we discussed the potential use of IL-6 inhibitor to control symptoms of polymyalgia rheumatica and allow him to be completely off steroids follow-up 3 month No diagnosis found. No orders of the defined types were placed in this encounter. No results found for this or any previous visit (from the past 36 hour(s)). No follow-ups on file. [facility] 08-25-2022 Note BEEN OFF HUMIRA FOR [address] [facility] 08-25-2022 Note Attestation signed by Luis Daniel Brunner MD at 08/30/2022 8:55 AM I personally saw and examined the patient on the same date of service as resident/fellow . I discussed the findings and therapeutic plan with the resident/fellow . I agree with the documentation, except for any edits/updates below. Teaching Physician's Revisions: Subjective Patient ID: Travis Coburn is a 81 y.o. male who presents for Follow-up. Mr. Travis Coburn is a 81 y.o. male with OA, CTS, Polymyalgia Rheumatica and Psoriatic Arthritis who presents today for routine follow-up. Patient has been tolerating MTX 4 tablets weekly. Patient does endorses worsening of stiffness in his hands, lower back but is still able to do what he needs to do throughout the day. Patient denies any flares of psoriasis. Patient denies current fever, chills, nausea vomiting or any other constitutional symptoms. No joint swelling or redness. Compliant with MTX 4 tablets weekly, no side effects. Good control of his plaque psoriasis. Regarding his PMR, denies any concerns for GCA (no vision changes, headaches or jaw pain). He has been on Prednisone, oral, daily for his Psoriatic Arthritis in the past and said that it made him feel really good . Review of Systems HENT: Positive for hearing loss. Gastrointestinal: Positive for abdominal distention. Musculoskeletal: Positive for arthralgias, back pain (lower) and myalgias. Negative for joint swelling. Skin: Positive for rash (over both arms) and wound. All other systems reviewed and are negative. Objective Physical Exam Vitals reviewed. Constitutional: General: He is not in acute distress. Appearance: He is obese. He is not ill-appearing, toxic-appearing or diaphoretic. HENT: Head: Normocephalic and atraumatic. Eyes: General: No scleral icterus. Cardiovascular: Rate and Rhythm: Normal rate and regular rhythm. Pulses: Normal pulses. Heart sounds: Normal heart sounds. Pulmonary: Effort: Pulmonary effort is normal. No respiratory distress. Breath sounds: Normal breath sounds. Abdominal: General: Bowel sounds are normal. There is distension. Palpations: Abdomen is soft. Musculoskeletal: General: No swelling, tenderness or deformity. Skin: Coloration: Skin is not jaundiced. Findings: Lesion and rash present. Neurological: General: No focal deficit present. Mental Status: He is alert and oriented to person, place, and time. Mental status is at baseline. Psychiatric: Mood and Affect: Mood normal. Behavior: Behavior normal. Thought Content: Thought content normal. Judgment: Judgment normal. Assessment/Plan Diagnoses and all orders for this visit: Psoriatic arthropathy ([facility]/HCC) PMR (polymyalgia rheumatica) ([facility]) [facility] 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 High risk medication use Polyarthropathy Primary osteoarthritis, unspecified site Polymyalgia rheumatica (CMS/HCC) 81 yo M who is here for follow-up of Polymyalgia Rheumatica and Psoriatic Arthritis 1. Polymyalgia Rheumatica - symptoms are stable, has intermittent hand and lower back stiffness - denies any vision changes, jaw pain or headaches 2. Psoriatic Arthritis - stiffness in the hands and lower back has worsened; it is intermittent - off Humira at this time - increase Methotrexate to 15 mg weekly; currently no side effects; if the patient feels like it is not helping with the stiffness, can consider reinitiating Prednisone, oral - Continue Folic Acid -Ordered CBC ordered and CMP. We will review results at next follow-up 3-chronic 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 use Risks and benefits of 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 were discussed including but not limited to increased chance for infection, nausea, hair loss, oral ulcers, liver toxicity, bone marrow toxicity, etc. The need for regular lab monitoring for potential 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 toxicity/side effects was discussed with the patient. No side effects, oral ulcers, significant hair loss or GI distress, fever, cough, or recent infection. No dyspnea, Labs stable RTC 4 months Ad Sidhu MD Family Medicine PGY-1 08/25/22 11:48 AM [facility] Evaluation + Plan note Future Appointments Appointment Date:09/18/2023 12:45:00 PM Scheduled Provider:Nguyễn TENORIO MD Location:[facility] Appointment Type:URO Office Visit [facility] History of Present illness Narrative She returns prematurely at the suggestion of his primary care physician. Recently he has been experiencing a wide variety of symptoms. He complains of dizziness shortness of breath profound fatigue all of which he had prior to his previous diagnosis of coronary disease and subsequent intervention. Because of this he is worried about progression. I advised him that the symptoms are somewhat vague but nonetheless because of his previous history I recommended stress testing. He does not believe he can perform a treadmill test and because of this we will do a pharmacologic stress test with isotope imagingWe also discussed his breathing situation. I pointed out to him that he does have sleep apnea which could contribute to his shortness of breath as well as his complaints of daytime fatigue he does acknowledge this although he states he was recently in receipt of a new set up for his sleep apnea and because of this he is reluctant to believe that he requires adjustment in equipment or settings. We also touched on the merits of diet exercise and weight loss and he understands her recommendations.He will follow-up in the near future when stress testing is done. He also apparently had a Holter monitor last week and we are not in receipt of that and this too will be reviewed at his next visit. [facility] [address] DO Work Phone: History of Present illness Narrative She returns prematurely at the suggestion of his primary care physician. Recently he has been experiencing a wide variety of symptoms. He complains of dizziness shortness of breath profound fatigue all of which he had prior to his previous diagnosis of coronary disease and subsequent intervention. Because of this he is worried about progression. I advised him that the symptoms are somewhat vague but nonetheless because of his previous history I recommended stress testing. He does not believe he can perform a treadmill test and because of this we will do a pharmacologic stress test with isotope imagingWe also discussed his breathing situation. I pointed out to him that he does have sleep apnea which could contribute to his shortness of breath as well as his complaints of daytime fatigue he does acknowledge this although he states he was recently in receipt of a new set up for his sleep apnea and because of this he is reluctant to believe that he requires adjustment in equipment or settings. We also touched on the merits of diet exercise and weight loss and he understands her recommendations.He will follow-up in the near future when stress testing is done. He also apparently had a Holter monitor last week and we are not in receipt of that and this too will be reviewed at his next visit. [facility] NOTIK DO Work Phone: History of Present illness Narrative CoronaryPatient returns for follow-up of problems as noted. He is done well. He denies any of the symptoms or disease that he had in the past. Management of cardiac risk factors including his hypertension and hyperlipidemia is reviewed and control appears to be adequate. He was congratulated on his continued abstinence from tobacco. We did advocate the merits of diet exercise and weight loss to favorably improve his body mass index and also because it would improve not only his blood pressure were probably his lipid profile and he understands the recommendation and will attempt to implement our recommendations. [facility] Work Phone: Hospital course Narrative No data available for this section [facility] Progress note No data available for this section [facility] Summary Purpose Family History No Family History Records FoundUnknown Family Member Name Dates Details Family history of congestive heart failure: Father(V17.49, Z82.49) Comments: - age 84; Status:Active Family history of hypertensi on: Mother(V17.49, Z82.49) Status:Active Unknown Family Member Name Dates Details Family history of congestive heart failure: Father(V17.49, Z82.49) Comments: - age 84; Status:Active Family history of hypertensi on: Mother(V17.49, Z82.49) Status:Active Unknown Family Member Name Dates Details Family history of congestive heart failure: Father(V17.49, Z82.49) Comments: - age 84; Status:Active Family history of hypertensi on: Mother(V17.49, Z82.49) Status:Active Unknown Family Member Name Dates Details Family history of congestive heart failure: Father(V17.49, Z82.49) Comments: - age 84; Status:Active Family history of hypertensi on: Mother(V17.49, Z82.49) Status:Active Unknown Family Member Name Dates Details Family history of congestive heart failure: Father(V17.49, Z82.49) Comments: - age 84; Status:Active Family history of hypertensi on: Mother(V17.49, Z82.49) Status:Active Unknown Family Member Name Dates Details Family history of congestive heart failure: Father(V17.49, Z82.49) Comments: - age 84; Status:Active Family history of hypertensi on: Mother(V17.49, Z82.49) Status:Active Unknown Family Member Name Dates Details Family history of congestive heart failure: Father(V17.49, Z82.49) Comments: - age 84; Status:Active Family history of hypertensi on: Mother(V17.49, Z82.49) Status:Active Unknown Family Member Name Dates Details Family history of congestive heart failure: Father(V17.49, Z82.49) Comments: - age 84; Status:Active Family history of hypertensi on: Mother(V17.49, Z82.49) Status:Active Unknown Family Member Name Dates Details Family history of hypertensi on: Mother(V17.49, Z82.49) Status:Active Family history of congestive heart failure: Father(V17.49, Z82.49) Comments: - age 84; Status:Active Unknown Family Member Name Dates Details Family history of congestive heart failure: Father(V17.49, Z82.49) Comments: - age 84; Status:Active Family history of hypertensi on: Mother(V17.49, Z82.49) Status:Active Advance Directives No Advanced Directives Records FoundNo Advanced Directives Records FoundNo Advanced Directives Records FoundNo Advanced Directives Records FoundNo Advanced Directives Records FoundNo Advanced Directives Records FoundNo Advanced Directives Records FoundNo Advanced Directives Records FoundNo Advanced Directives Records Found Chief Complaint TRAVIS COBURN is being seen for an annual follow-up of dizziness and sent back by Hypotension, Bradycardia.TRAVIS COBURN is being seen for an annual follow-up of dizziness and sent back by Hypotension, Bradycardia.Follow up to discuss stress results.Follow up to discuss stress results.Follow up to discuss stress results. Additional Source Comments (unrecognized sect ion and content) No Status Records FoundNo Status Records FoundNo Status Records FoundNo Status Records FoundNo Status Records FoundNo Status Records FoundNo Status Records FoundNo Status Records FoundNo Status Records Found INFORMATION SOURCE (unrecogn ized section and content) DATE CREATED AUTHOR 11/30/2021 [facility] DATE CREATED AUTHOR AUTHOR'S ORGANIZ ATION [facility]/2021 [facility] DATE CREATED AUTHOR AUTHOR'S ORGANIZ ATION 01/01/2022 [employer] DATE CREATED AUTHOR AUTHOR'S ORGANIZ ATION 10/29/2022 [facility] DATE CREATED AUTHOR AUTHOR'S ORGANIZ ATION 10/30/2022 [facility] DATE CREATED AUTHOR AUTHOR'S ORGANIZ ATION [facility]/[address] [facility] DATE CREATED AUTHOR AUTHOR'S ORGANIZ ATION 04/12/[address] [facility] DATE CREATED AUTHOR AUTHOR'S ORGANIZ ATION 04/14/2023 [facility] Center DATE CREATED AUTHOR AUTHOR'S ORGANIZ ATION 06/18/2023 [facility] Reason for Visit (unrecogniz ed section and content) Reason for Visit:Holter Lori tor:TRAVIS is here for the application of a 24 hour Holter monitor.Ordering Physician: Dr. Johnnie Elliott, MDDiagnosis: bradyNOHC equipment agreement signed. TRAVIS understands monitor is to be returned on: 10/31/2022Monitor number [id number] applied.Reason for Visit:Holter Monitor:TRAVIS is here for the application of a 24 hour Holter monitor.Ordering Physician: Dr. Johnnie Elilott, MDDiagnosis: bradyNOHC equipment agreement signed. TRAVIS understands monitor is to be returned on: 10/31/2022Mobile number [id number] applied.Holter monitor returned and downloaded.Holter monitor printed and placed on Dr. Naomi Hood MD desk to dictate in Dr. Johnnie Elliott MD absenceReason for Visit:Holter Monitor:TRAVIS is here for the application of a 24 hour Holter monitor.Ordering Physician: Dr. Johnnie Elliott, MICHELLEiagnosis: bradyNOHC equipment agreement signed. TRAVIS understands monitor is to be returned on: 10/31/2022Mobile number [id number] applied.Holter monitor returned and downloaded.Holter monitor printed and placed on Dr. Naomi Hood MD desk to dictate in Dr. Johnnie Elliott MD absence Patient Care team informatio n (unrecognized section and content) Personnel Name: Mayra David MD Address: Address: [address] [place] [address] FOR RECORDS PERTAINING TO PATIENTS WHO ARE OR HAVE BEEN ENROLLED IN A CHEMICAL DEPENDENCY/SUBSTANCEABUSE PROGRAM, SOME INFORMATION MAY BE OMITTED. This clinical summary was aggregated from multiple sources. Caution should be exercised in using it in the provision of clinical care. This summary normalizes information from multiple sources, and as a consequence, information in this document may materially change the coding, format and clinical context of patient data. In addition, data may be omitted in some cases. CLINICAL DECISIONS SHOULD BE BASED ON THE PRIMARY CLINICAL RECORDS. [facility] [employer] [facility]. provides no warranty or guarantee of the accuracy or completeness of information in this document.
[2023-07-06 10:26] LABS: SARS-CoV-2 Ag NEGATIVE (NEGATIVE)
[2023-07-07 08:29] LABS: SARS-CoV-2 NAA NOT DETECTED (NOT DETECTE)
== END 2023-07-06 08:56 | disposition home or self-care (01) ==
LOC: LAB 08:55
PROVIDERS: PCP Family Medicine; Visit Provider Family Medicine
DX: R05.9 Cough, unspecified (principal)
CPT/HCPCS: 87635; 87811

== ENCOUNTER 2023-08-22 12:25 | Outpatient (REF) | payer MEDICARE, OTHER, SELFPAY ==
--- OUTSIDE RECORDS SUMMARY | 2023-08-25 12:33 | XMS_ITS | CCD ---
Author Name Unknown Address [address] [place] [address] [facility] Care Team Providers Care Physician Practice Consultant Name Role Phone Mayra Navarrete Unavailable Unavailable Unavailable Augusta MORA, Dr. Johnnie [...] Unavailable HOY ., DR NUNEZ Consulting Unavailable OCALA, DR CJ Hernandes Consulting Unavailable HOY ., DR NUNEZ Admitting Unavailable HOY ., DR NUNEZ Attending [facility] Primary Care Unavailable LANDON ., DR NUNEZ Consulting Unavailable KWADWO CRUMP Admitting Unavailable KWADWO CRUMP Attending Unavailable LANDON ., DR NUNEZ Primary Care Unavailable KWADWO CRUMP Consulting Unavailable Mayra Navarrete Primary Care Physician MICHELLE BARRY Attending Unavailable MICHELLE BARRY Admitting Unavailable MAYRA NAVARRETE Primary Care Unavailable MAYRA NAVARRETE Primary Care Unavailable RADHA EARL Attending Unavailable LUIS DANIEL BRUNNER Attending Unavailable LUIS DANIEL BRUNNER Attending Unavailable TOO THOMPSON Attending Unavailable LUIS DANIEL BRUNNER Referring Unavailable LUIS DANIEL BRUNNER Attending Unavailable LUIS DANIEL BRUNNER Attending Unavailable MD Mayra Navarrete Primary Care Provider [phone] MD Wade Lilly Attending Provider Nguyễn VELA Attending Unavailable Wade LILLY Attending Unavailable Wade LILLY Attending Unavailable Mayra Navarrete Referring Unavailable Wade LILLY Attending Unavailable Nguyễn VELA Attending Unavailable Mayra Navarrete Primary Care Unavailable Wade Lilly Attending Unavailable Wade Lilly Admitting Unavailable Allergies Allergy Classification Reported Allergen(s) Allergy Type Date of Onset Reaction(s) Facility (11 sources) bee pollen [facility] Work [facility]: (17 sources) Penicillins; 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: [Penicillins] Allergy to drug (finding) 9 Anaphylaxis (disorder) [facility] (11 sources) Animal dander - Cats [facility]: (1 source) Penicillins Drug allergy (disorder) [facility] Rep[facility] (5 sources) Latex; 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: [LATEX] Drug allergy 2 Unknown (qualifier value) [facility] (3 sources) Sulfonamides (Antibiotic); 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: [sulfa drugs] Propensity to adverse reactions to drug [facility] [place] (3 sources) Sulfonamides (Antibiotic); 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: [SULFA (SULFONAMIDE ANTIBIOTICS)] Propensity to adverse reactions to drug (disorder) [address] [facility] Repository (2 sources) penciclovir; 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: [penciclovir] Drug Allergy 1 anaphylaxis [facility] (1 source) Penicillins Drug allergy (disorder) 9 [facility] Repository Medications Current Medications Medication Drug Class(es) Dates [...] 0 Ordered: 08-Dec-2021 DO Active amitriptyline hydrochloride 50 mg oral tablet (15 sources) Tricyclic Antidepressant Start: 09-13-2017 take 1 tablet by mouth once daily at bedtime amitriptyline 50 mg Tab 50 mg = 1 tab(s), Oral, Once a day (at bedtime), Refills(s) 0 Start Date: 07/14/23 Status: Ordered Start: 03-26-2014 take 2 tablets by mo uth once daily at bedtime Elavil 25 mg Tab 50 mg = 2 tab(s), Oral, Once a day (at bedtime) Start Date: 03/26/14 Status: Ordered take 1 tablet by mouth at bedtim e Elavil 25 MG TABS TAKE 1 TABLET AT BEDTIME. Quantity: 0 Refills: 0 Ordered: 08-Dec-2021 DO Active calcium carbonate 1500 mg oral tablet (1 source) Start: 08-21-2019 take 1 mg by mouth once daily calcium (as carbonate) 600 mg oral tablet mg tab(s), Oral, Daily, Refills(s) 0 Start Date: 08/21/19 Status: Ordered calcium carbonate 1500 mg / cholecalciferol 200 unt oral capsule (1 source) Vitamin D Start: 09-13-2017 take 1 tablet by mouth once daily Calcium Carbonate-Vitamin D3 (Calcium 600 + D(3)) 600 mg calcium- 200 unit Capsule Active 1 TAB PO Daily September 13, 2017 12:00am Folate 1 mg Tab (3 sources) Start: 08-23-2019 Folate 1 mg Ta b Refills(s) 0 Start Date: 08/23/19 Status: Ordered folic acid 1 mg oral tablet (13 sources) Start: 05-30-2019 End: 05-30-2019 Folic Acid Active 1 MG PO Daily May 30, 2019 12:00am Does not take on Monday furosemide 20 mg oral tablet (15 sources) Loop Diuretic Start: 09-13-2017 take 20 mg by mouth once daily Lasix 20 mg, Oral, Daily, Refills(s) 0, diuretic/water pill Start Date: 06/29/18 Status: Ordered glimepiride 1 mg oral tablet (3 sources) Sulfonylurea Start: 07-14-2023 take 1 tablet by mouth once daily glimepiride 1 mg Tab 1 mg = 1 tab(s), Oral, Daily, Refills(s) 0 Start Date: 07/14/23 Status: Ordered Start: 03-20-2023 take 1 tablet by rasta th once daily glimepiride 2 mg Tab 2 mg = 1 tab(s), Oral, Daily Start Date: 03/20/23 Status: Ordered hydroCHLOROthiazide 12.5 mg / irbesartan 300 mg oral tablet (13 sources) Thiazide Diuretic, Angiotensin 2 Receptor [place] Start: 07-14-2023 take 1 tablet by mouth once daily hydrochlorothiazide-irbesartan 12.5 mg-300 mg Tab 1 tab(s), Oral, Daily, Refill(s) 0 Start Date: 07/14/23 Status: Ordered Start: 01-25-2022 take 1 tablet by rasta th once daily Irbesartan-hydroCHLOROthiazide 300-12.5 MG Oral Tablet TAKE 1 TABLET BY MOUTH DAILY Quantity: 90 Refills: 3 Ordered: 26-Jan-2022 Johnnie Deras MD Start : 25-Jan-2022 Active take 1 tablet by rasta th once daily Irbesartan-hydroCHLOROthiazide 300-12.5 MG Oral Tablet TAKE 1 TABLET ONCE DAILY. Quantity: 0 Refills: 0 Ordered: 08-Dec-2021 DO Active ibuprofen 600 mg oral tablet (1 source) Nonsteroidal Anti-inflammatory Drug Start: 03-20-2023 take 600 mg by mouth every six hours ibuprofen 600 mg, Oral, q6hr Start Date: 03/20/23 Status: Ordered irbesartan 300 mg oral tablet (3 sources) Angiotensin 2 Receptor [place]apphire Start: 05-30-2019 irbesartan 300 mg Tab Refills(s) 0 Start Date: 08/23/19 Status: Ordered Start: 09-13-2017 End: 05-30-2019 take 150 mg by mouth once daily Irbesartan Discontinued 150 MG PO Daily September 13, 2017 12:00am May 30, 2019 2:59pm 24 hr metFORMIN hydrochloride 500 mg extended release oral tablet (13 sources) Biguanide Start: 05-30-2019 take 500 mg by mouth twice daily Metformin Active 500 MG PO Twice daily May 30, 2019 12:00am Start: 06-29-2018 take 500 mg by mouth twice jessica ly Glucophage 500 mg, Oral, BID, Refills(s) 0, Blood glucose Start Date: 06/29/18 Status: Ordered take 2 tablets by [facility] once daily metFORMIN HCl - 500 MG Oral Tablet TAKE 2 TABLETS DAILY. Quantity: 0 Refills: 0 Ordered: 08-Dec-2021 DO Active 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 5 mg oral tablet (15 sources) Folate Analog Metabolic Inhibitor Start: 07-14-2023 take 4 tablets by mouth every week 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 5 mg oral tablet 20 mg = 4 tab(s), Oral, qWeek, Refills(s) 0 Start Date: 07/14/23 Status: Ordered Start: 08-23-2019 Trexall 2.5 mg Tab Refills(s) 0 Start Date: 08/23/19 Status: Ordered Start: 05-30-2019 take 10 mg by mouth every week Methotrexate Sodium Active 10 MG PO every week May 30, 2019 12:00am Takes on Monday take 4 tablets by [facility] every week Methotrexate 2.5 MG Oral Tablet TAKE 4 TABLETS WEEKLY. Quantity: 0 Refills: 0 Ordered: 28-Dec-2021 DO Active take 1 tablet by [facility] every week Methotrexate Sodium 2.5 MG Oral Tablet TAKE 1 TABLET WEEKLY. Quantity: 0 Refills: 0 Ordered: 08-Dec-2021 DO Active 24 hr oxybutynin chloride 5 mg extended release oral tablet (3 sources) Cholinergic Muscarinic Antagonist Start: 03-20-2023 take 1 tablet by mouth at bedtime oxybutynin 5 mg ER Tab 5 mg = 1 tab(s), Oral, Bedtime, # 30 tab(s), Refills(s) 8, Pharmacy: [facility]/pharmacy #[id number], 175, cm, 03/20/23 14:33:00 EDT, Height/Length Dosing, 112, kg, 03/20/23 14:33:00 EDT, Weight Dosing Start Date: 03/20/23 Status: Ordered pantoprazole 40 mg extended release oral tablet (15 sources) Proton Pump Inhibitor Start: 06-29-2018 take 40 mg by mouth once daily Protonix 40 mg, Oral, Daily, Refills(s) 0, Control of stomach acid Start Date: 06/29/18 Status: Ordered Start: 09-13-2017 Pantoprazole ( Protonix) 40 mg Tablet,Delayed Release (Dr/Ec) Active 40 MG PO Every 48 hours September 13, 2017 12:00am take 1 tablet by rasta th once daily Pantoprazole Sodium 40 MG Oral Tablet Delayed Release TAKE 1 TABLET DAILY. Quantity: 0 Refills: 0 Ordered: 08-Dec-2021 DO Active Miralax (2 sources) Osmotic Laxative Start: 07-14-2023 take 17 g by mouth once daily MiraLax 17 gm, Oral, Daily, Refill(s) 0 Start Date: 07/14/23 Status: Ordered predniSONE 2.5 mg oral tablet (5 sources) Start: 07-18-2023 take 2 tablets by mouth once daily predniSONE 2.5 mg oral tablet 5 mg = 2 tab(s), Oral, Daily, Refills(s) 0 Start Date: 07/18/23 Status: Ordered Start: 03-20-2023 take 1 tablet by rasta th once daily predniSONE 2.5 mg oral tablet 2.5 mg = 1 tab(s), Oral, Daily Start Date: 03/20/23 Status: Ordered Start: 05-30-2019 take 2.5 mg by mouth twice daily Prednisone Active 2.5 MG PO Twice daily May 30, 2019 12:00am Start: 09-13-2017 End: 05-30-2019 take 5 mg by mouth once daily Prednisone Discontinued 5 MG PO Daily September 13, 2017 12:00am May 30, 2019 3:00pm rosuvastatin calcium 5 mg oral tablet (15 sources) HMG-CoA Reductase Inhibitor Start: 12-01-2020 take 1 tablet by mouth at bedtime rosuvastatin 5 mg Tab TAKE 1 TABLET BY MOUTH AT BEDTIME Start Date: 12/01/20 Status: Ordered Start: 05-30-2019 take 2.5 mg by mouth once daily in the morning Rosuvastatin Active 2.5 MG PO Every morning May 30, 2019 12:00am tiZANidine 4 mg oral tablet (1 source) Central alpha-2 Adrenergic Agonist Start: 03-20-2023 take 1 tablet by mouth every eight hours tiZANidine 4 mg Tab 4 mg = 1 tab(s), Oral, q8hr Start Date: 03/20/23 Status: Ordered vitamin b12 1 mg oral tablet (2 sources) Vitamin B12 Start: 05-30-2019 take 3 tablets by mouth once daily Cyanocobalamin (Vitamin B-12) (Vitamin B-12) 1,000 mcg Tablet Active 3000 MCG PO Daily May 30, 2019 12:00am Start: 09-13-2017 End: 05-30-2019 take 1 tablet by mouth once daily Cyanocobalamin (Vitamin B-12) (Vitamin B-12) 1,000 mcg Tablet Discontinued 1000 MCG PO Daily September 13, 2017 12:00am May 30, 2019 3:02pm Vitamin D3 (3 sources) Start: 06-29-2018 Vitamin D3 Ora l, Daily, Refills(s) 0, Prophylaxis Start Date: 06/29/18 Status: Ordered Completed/Discontinued Medications Medication Drug Class(es) Dates Sig (Normalized) Sig (Original) aspirin 81 mg oral tablet (15 sources) Platelet Aggregation Inhibitor, Nonsteroidal Anti-inflammatory Drug Start: 06-29-2018 End: 05-31-2019 take 81 mg by mouth two times weekly Aspirin Discontinued 81 MG PO Twice a Week May 30, 2019 12:00am May 31, 2019 11:36am Start: 06-29-2018 aspirin 81 mg, Oral, Daily, taking 2 times per week, Refills(s) 0, Blood Thinner Start Date: 06/29/18 Status: Ordered take 1 tablet by rasta th two times weekly Aspirin EC 81 MG Oral Tablet Delayed Release 1 tablet twice weekly Quantity: 25 Refills: 3 Ordered: 28-Dec-2021 Johnnie Deras MD Active 120 actuat budesonide 0.16 mg/actuat / formoterol fumarate 0.0045 mg/actuat metered dose inhaler (1 source) Corticosteroid, beta2-Adrenergic Agonist Start: 09-13-2017 End: 05-30-2019 take 1 puff(s) by inhalation twice daily Budesonide-Formoterol (Symbicort) 160-4.5 mcg/actuation Hfa Aerosol Inhaler Discontinued 2 PUFF INHALATION Twice daily September 13, 2017 12:00am May 30, 2019 3:02pm Calcium (11 sources) Phosphate Binder, Calcium Calcium + D TABS MURPHY E 1 TABLET DAILY. Quantity: 0 Refills: 0 Ordered: 08-Dec-2021 DO Active DULoxetine 30 mg delayed release oral capsule (9 sources) Serotonin and Norepinephrine Reuptake Inhibitor take 1 tablet by mouth once daily Cymbalta 30 MG Oral Capsule Delayed Release Particles one tablet daily Quantity: 0 Refills: 0 Ordered: 28-Dec-2021 DO Active Magnesium (11 sources) Magnesium CAPS T SOURAV 70 MG CAPSULES 1 DAILY Quantity: 0 Refills: 0 Ordered: 08-Dec-2021 DO Active sildenafil 20 mg oral tablet (1 source) Phosphodiesterase 5 Inhibitor Start: 08-21-2019 take 5 tablets by mouth once daily [...] Problem Date Documented Da te Episodic/Chronic Abdominal hernia (2 sources) Hiatal hernia 07-14-2023 Episodic Abdominal pain (3 sources) Epigastric pain 12-01-2020 Episodic Anxiety disorders (2 sources) Anxiety 07-14-2023 Chronic Calculus of urinary tract (7 sources) History of calculus of kidney; 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: [Personal history of urinary calculi] Onset: 3 Episodic Cardiac dysrhythmias (2 sources) 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 Cardiac dysrhythmias (8 sources) Bradycardia; 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: [Other specified cardiac dysrhythmias] Onset: 2 Episodic Conditions associated with dizziness or vertigo (11 sources) Dizziness; 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: [Dizziness and giddiness] Episodic Coronary atherosclerosis and other heart disease (20 sources) Angina pectoris; 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: [Other and unspecified angina pectoris] Chronic Deficiency and other anemia (1 source) Anemia, unspecified; 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: [ANEMIA UNSPECIFIED] Onset: 3 Episodic Diabetes mellitus without complication (7 sources) Type 2 diabetes mellitus without complications; 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: [Diabetes mellitus] Onset: 2 Chronic Diabetes mellitus without complication (1 source) Other abnormal glucose; 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: [OTHER ABNORMAL GLUCOSE] Onset: 3 Episodic Disorders of lipid metabolism (14 sources) Hyperlipidemia; 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: [Other and unspecified hyperlipidemia] Onset: 3 07-14-2023 Chronic Esophageal disorders (3 sources) Gastroesophageal reflux disease 08-21-2019 Chronic Essential hypertension (13 sources) Benign essential hypertension; 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: [Benign essential hypertension] 07-14-2023 Chronic Genitourinary symptoms and ill-defined conditions (11 sources) Urgent desire to urinate; 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: [Urgency of urination] Onset: 3 Episodic Headache; including migraine (2 sources) Migraine 07-14-2023 Chronic Hyperplasia of prostate (5 sources) Benign prostatic hyperplasia without lower urinary tract symptoms; 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: [Benign prostatic hypertrophy with outflow obstruction] Onset: 2 Chronic Inflammatory conditions of male genital organs (3 sources) Prostatitis 08-21-2019 Episodic Malaise and fatigue (15 sources) Fatigue; 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: [Other malaise and fatigue] Onset: 3 Episodic Nausea and vomiting (3 sources) Nausea and vomiting 12-01-2020 Episodic Neoplasms of unspecified nature or uncertain behavior (4 sources) Neoplasm of uncertain behavior of skin; 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: [Neoplasm of uncertain behavior of skin] Onset: 4 Episodic Nutritional deficiencies (3 sources) Vitamin D deficiency, unspecified; 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: [Vitamin D deficiency] Onset: 3 07-14-2023 Chronic Nutritional deficiencies (2 sources) Cobalamin deficiency 07-14-2023 Episodic Osteoarthritis (2 sources) Primary osteoarthritis, unspecified site; 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: [Primary osteoarthritis, unspecified site] Onset: 3 Chronic Other connective tissue disease (15 sources) Polymyalgia rheumatica; 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: [Polymyalgia rheumatica] Onset: 3 08-23-2019 Chronic Other connective tissue disease (1 source) Polymyalgia rheumatica; 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: [Polymyalgia rheumatica] Onset: 2 Chronic Other diseases of kidney and ureters (2 sources) Disorder of kidney and ureter, unspecified; 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: [Disorder of kidney and ureter, unspecified] Onset: 4 Episodic Other gastrointestinal disorders (1 source) 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; 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: [IRRITABLE BOWEL SYND W/O DIARRHEA] Onset: 2 Chronic Other infections; including parasitic (11 sources) Personal history of other infectious and parasitic diseases; 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: [Personal history of COVID-19] Episodic Other infections; including parasitic (2 sources) History of Helicobacter pylori infection 07-14-2023 Episodic Other inflammatory condition of skin (3 sources) Psoriasis 08-23-2019 Chronic Other inflammatory condition of skin (2 sources) Psoriatic arthritis 07-14-2023 Chronic Other inflammatory condition of skin (2 sources) Arthropathic psoriasis, unspecified; 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, unspecified] Onset: 3 Chronic Other liver diseases (1 source) Fatty (change of) liver, not elsewhere classified; 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: [FATTY CHANGE LIVER NEC] Onset: 2 Chronic Other liver diseases (3 sources) Steatosis of liver 12-01-2020 Chronic Other lower respiratory disease (11 sources) Dyspnea on exertion; 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: [Shortness of breath] Episodic Other lower respiratory disease (11 sources) Dyspnea; 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: [Other respiratory abnormalities] Episodic Other male genital disorders (1 source) Male erectile dysfunction, unspecified; 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: [Erectile dysfunction] Onset: 3 Chronic Other male genital disorders (3 sources) Impotence 08-21-2020 Chronic Other nervous system disorders (1 source) Hereditary and idiopathic neuropathy, unspecified; 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: [HEREDITARY IDIOPATH NEUROPATHY UNS] Onset: 2 Chronic Other nervous system disorders (2 sources) Neuropathy 07-14-2023 Chronic Other non-traumatic joint disorders (2 sources) Polyarthritis, unspecified; 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: [Polyarthritis, unspecified] Onset: 2 Chronic Other nutritional; endocrine; and metabolic disorders (14 sources) Obesity; 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: [Obesity, unspecified] 03-26-2014 Chronic Other nutritional; endocrine; and metabolic disorders (3 sources) Body mass index 30+ - obesity 12-01-2020 Chronic Other nutritional; endocrine; and metabolic disorders (3 sources) Loss of appetite 12-01-2020 Episodic Other nutritional; endocrine; and metabolic disorders (3 sources) Weight loss 12-01-2020 Episodic Other screening for suspected conditions (not mental disorders or infectious disease) (11 sources) Encounter for screening for malignant neoplasm of prostate; 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: [Elevated prostate specific antigen [PSA]] Onset: 2 Episodic Pathological fracture (1 source) Age-related osteoporosis with current pathological fracture, vertebra(e), initial encounter for fracture; 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: [Age-related osteoporosis with current pathological fracture, vertebra(e), initial encounter for fracture] Onset: 3 Episodic Residual codes; unclassified (13 sources) Sleep apnea; 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: [Unspecified sleep apnea] 07-14-2023 Chronic Residual codes; unclassified (1 source) Encounter for procedure for purposes other than remedying health state, unspecified; 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: [Encounter for procedure for purposes other than remedying health state, unspecified] Onset: 3 Episodic Screening and history of mental health and substance abuse codes (14 sources) Ex-smoker; 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: [Personal history of tobacco use] 08-23-2019 Episodic Comment on above: Quit: 1991; Unclassified (1 source) Drug therapy finding 08-23-2019 Unclassified (1 source) jail (current) use of antimetabolite agent; 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: [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) use of antimetabolite agent] Onset: 2 Past or Other Problems Problem Classification Problem Date Documented Da te Episodic/Chronic Other aftercare (2 sources) Other chcf (current) drug therapy; 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: [Other exterminator helper termite (current) drug therapy] Onset: 08-25-2022 Episodic Other gastrointestinal disorders (1 source) Diarrhea, unspecified; 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: [DIARRHEA UNSPECIFIED] Onset: 03-18-2022 Episodic Unclassified (1 source) jail (current) use of antimetabolite agent; 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: [jail (current) use of antimetabolite agent] Onset: 08-17-2023 Results Test Name Value Interpretation Reference Range Facil ity Ambulatory Visit Summaryon 0 08-22-2023 Ambulatory Visit Summary TRAVIS COBURN :1940 Visit Date:08/22/2023 Ambulatory Visit Instructions Your Care Team Attending Physician - MAXX TURNER, Wade Peter Primary Care Physician - Mayra Navarrete MD This Is Your Medications List amitriptyline (amitriptyline 50 mg Tab) aspirin cholecalciferol (Vitamin D3) folic acid (Folate 1 mg Tab) furosemide (Lasix) glimepiride (glimepiride 1 mg Tab) hydrochlorothiazide-i rbesartan (hydrochlorothiazide- irbesartan 12.5 mg-300 mg Tab) 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 (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 5 mg oral tablet) oxybutynin (oxybutynin 5 mg ER Tab) pantoprazole (Protonix) polyethylene glycol 3350 (MiraLax) predniSONE (predniSONE 2.5 mg oral tablet) rosuvastatin (rosuvastatin 5 mg Tab) Procedures Performed right knee arthroscopy (04/09/2014), Cystoscopic removal of ureteric stent (02/25/2003), Arthroscopic knee operation, Colonoscopy, Cystoscopy, Cystoscopy, Esophagogastroduodeno scopy, ESWL - Extracorporeal shockwave lithotripsy for renal calculus, Excision of breast mass, H/O repair of rotator cuff..., heart catheterization, Hemorrhoidectomy, Prostate Surgery, Repair of elbow, Shoulder Surgery. What to do next Scheduled Follow-Up Appointments Monday. 2023 12:45 PM EDT With: MRIIAN TURNER, Nguyễn Peter Where: [facility] General Surgery Office/Clini c Noteon 08-22-2023 General Surgery Office/Clinic Note Chief Complaint in-office excisional biopsy HPI Staff Presents for in-office excisional biopsy right posterior calf lesion. History of Present Illness here for excision right posterior calf lesion, nonhealing; scab has improved. Review of Systems ROS - Provider Constitutional: no fever, no sweats, no weight loss. Eyes: no glasses, no blurred vision, no visual loss. ENMT: no dentures, no hoarseness, no swallowing difficulties, no hearing loss, no ear infection(s), no nose bleeds. Cardiovascular: normal blood pressure, no chest pain, regular heartbeat, no heart murmur. Respiratory: no shortness of breath, no cough, no asthma, no wheezing. Gastrointestinal: no nausea, no vomiting, no diarrhea, no constipation, no blood in stool, no change in bowel habits, no abdominal pain, no hepatitis. Genitourinary: no kidney stones, no urine infection, no dysuria. Musculoskeletal: no pain, no weakness. Skin: no changing moles, no rash, yes skin lumps. Neurologic: no seizures, no epilepsy, no headache. Psychiatric: no emotional or psychiatric problem. Heme/Lymph: no bleeding problems, no anemia, no blood clots, no transfusions. Allergy/Immunologic: no swollen lymph nodes/glands, no IV drug abuse. Other: Additional ROS info: Except as noted in the above Review of Systems and in the History of Present Illness, all other systems have been reviewed and are negative or noncontributory. Physical Exam skin: 1 cm oval raised, erythematous lesion, no scab or ulceration Procedure patient brought to the procedure room, placed in supine position, area prepped and draped in sterile fashion; anesthetized with 1 % lidocaine; lesion excised in elliptical fashion down to subcutaneous fat; total length of incision 1.5 cm, closed with interrupted 4-0 nylon sutures; tolerated well; ebl < 3 ml; sterile dressing applied. Assessment/Plan 1. Neoplasm of uncertain behavior of skin of lower extremity (D48.5: Neoplasm of uncertain behavior of skin) excised under local anesthesia, tolerated well; keep incision clean and dry; remove dressing tomorrow and leave open to air; f/u in 10 days for suture removal; call with problems/questions. Follow-up No qualifying data available Problem List/Past Medical History Ongoing Abnormal biliary HIDA scan Abnormal gallbladder ultrasound Anxiety BMI 35.0-35.9,adult BPH with urinary obstruction Diabetes Former smoker Gastroesophageal reflux Hepatic steatosis Hiatal hernia History of Helicobacter pylori infection History of kidney stones HTN (hypertension) Hypertriglyceridemia Impotence Kidney stones Migraine Neoplasm of uncertain behavior of skin of lower extremity Neuropathy Nocturia Obesity 09-JAN-2014 12:37:00<$> Polymyalgia rheumatica Prostatitis Psoriasis Psoriatic arthritis Sinus arrhythmia Sleep apnea Urinary frequency Urinary urgency Vitamin B 12 deficiency Vitamin D deficiency Weight loss Historical Epigastric pain Loss of appetite Nausea with vomiting Procedure/Surgical History right knee arthroscopy (04/09/2014), Cystoscopic removal of ureteric stent (02/25/2003), Arthroscopic knee operation, Colonoscopy, Cystoscopy, Cystoscopy, Esophagogastroduodeno scopy, ESWL - Extracorporeal shockwave lithotripsy for renal calculus, Excision of breast mass, H/O repair of rotator cuff..., heart catheterization, Hemorrhoidectomy, Prostate Surgery, Repair of elbow, Shoulder Surgery. Medications amitriptyline 50 mg Tab, 50 mg= 1 tab(s), Oral, Once a day (at bedtime) aspirin, 81 mg, Oral, Daily Folate 1 mg Tab glimepiride 1 mg Tab, 1 mg= 1 tab(s), Oral, Daily hydrochlorothiazide-i rbesartan 12.5 mg-300 mg Tab, 1 tab(s), Oral, Daily Lasix, 20 mg, Oral, Daily 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 5 mg oral tablet, 20 mg= 4 tab(s), Oral, qWeek MiraLax, 17 gm, Oral, Daily oxybutynin 5 mg ER Tab, 5 mg= 1 tab(s), Oral, Bedtime, 8 refills predniSONE 2.5 mg oral tablet, 5 mg= 2 tab(s), Oral, Daily Protonix, 40 mg, Oral, Daily rosuvastatin 5 mg Tab Vitamin D3, Oral, Daily Allergies Latex (Unknown) penicillins (Anaphylaxis) sulfa drugs Social History Alcohol - Denies Alcohol Use, 03/26/2014 Substance Abuse - Denies Substance Abuse, 03/26/2014 Tobacco - Denies Tobacco Use, 03/26/2014 Former smoker, quit more than 30 days ago Tobacco Use:. Never Smokeless Tobacco Use:. Cigarettes, 07/18/2023 Family History Alzheimer disease: Mother. Anemia: Father. Congestive heart failure: Father. Hypertension: Mother. Immunizations Vaccine Date Status Comments influenza virus vaccine, inactivated - Not Given Patient Refuses influenza virus vaccine, inactivated 07/26/2022 Recorded SARSCoV2 mRNA(pcggbwebw-xcww-m ucros) vac 11/17/2021 Recorded SARS-CoV-2 (COVID-19) mRNA BNT-162b2 vax 05/20/2021 Recorded 2023-03-20: TPV75 SARS-CoV-2 (COVID-19) mRNA BNT-162b2 vax 11/17/2020 Recorded SARS-CoV-2 (COVID-19) mRNA BNT-162b2 vax 10/29/2020 Recorded 2023-03-20: TPV75 SARS-CoV (more content not included)... Normal [facility] Comment on above: Result Comment: Elec tronically Signed By: MAXX TURNER, Wade Steele\Date and Time Signed: 08/22/23 14:34 EST [place] 08-22-2023 L Specimen: [id number] Received: 08/23/23 Status: JUAN LUIS Carty Num: [id number] Spec Type: Surgical Subm Dr: Wade Lilly MD FACS Tissues: A Skin-Other than Cyst, tag, debridement or plastic repair (RT POST CALF) Procedures: HE/3, Gross/Micro L4 Age/ Patient Sex Location Account Attending Physician Travis Coburn 82/M LABELL [id number] Wade Lilly MD FACS SPEC NUM: [id number] RECD: 08/23/23 STATUS: JUAN LUIS CARTY NUM: [id number] APRIL: 08/22/23- SUBM DR: Wade Lilly MD FACS ENTERED: 08/23/23 [facility] DR: Artur Al SPEC TYPE: Surgical DEPT: NICOLA TENA ENTERED BY: [id number] RECV BY: [id number] ORDERED: HE/3, Gross/Micro L4 ORDERED: HE/3, Gross/Micro L4 Pathological Diagnosis Skin Lesion, Right calf, Biopsy: Basal Cell Carcinoma, Superficial Type. - Tumor extends To The Biopsy Margin. Clinical Information 5-month history of firm raised lesion with central scab. No bleeding or drainage. Nontender. No increases in size Gross Description Received in formalin labeled with the patient's name, date of and right posterior calf is an unknown oriented 1.8 x 0.8 cm cunningham-whittaker skin excision with a depth of 0.1 cm. On the skin surface is a pale 0.8 x 0.8 cm cunningham-whittaker centrally ulcerated papule which abuts the long edges of excision. The margin is inked green. Entirely submitted in 3 cassettes as follows: A1 - Tips A2-A3 - Remainder CPT Codes 94040 -------- -------- Specimen: [id number] Received: 08/23/23 Status: JUAN LUIS Carty Num: [id number] Spec Type: Surgical Subm Dr: Wade Lilly MD FACS Tissues: A Skin-Other than Cyst, tag, debridement or plastic repair (RT POST CALF) Procedures: HE/3, Gross/Micro L4 -------- Patient: Travis Coburn [id number] (Continued) -------- Signed (signature on file) Joon Bermudez MD 08/24/232206 Normal [facility] CBC WITH AUTO DIFFERENTIALon 08-17-2023 Basophils (Bld) [#/Vol] 0.04 10*3/uL Normal 0.00-0.[address] [facility] Comment on above: Performed By: #### L [id number] ####[facility] (BEAKER)[address] [place] [address] Basophils/100 WBC (Bld) 0.6 % Normal 0.0-1.[address] [facility] Comment on above: Performed By: #### L [id number] ####[facility] (BEAKER)[address] [place] [address] Eosinophils (Bld) [#/Vol] 0.12 10*3/uL Normal 0.00-0.[address] [facility] Comment on above: Performed By: #### L [id number] ####[facility] (BEAKER)[address] [place] [address] Eosinophils/100 WBC (Bld) 1.8 % Normal 0.0-6.[address] [facility] Comment on above: Performed By: #### L [id number] ####[facility] (BEAKER)[address] [place] [address] Erythrocyte distribution width (RBC) [Ratio] 13.9 % Normal 11.5-15.[address] [facility] Comment on above: Performed By: #### L [id number] ####[facility] (BEAKER)[address] [place] [address] ERYTHROCYTE MEAN CORPUSCULAR HEMOGLOBIN CONCENTRATION (G/DL) BY AUTOMATED 34.0 g/dL Normal 32.0-35.[address] [facility] Comment on above: Performed By: #### L [id number] ####[facility] (BEAKER)[address] [place] [address] Hematocrit (Bld) [Volume fraction] 42.0 % Normal 39.0-55.[address] [facility] Comment on above: Performed By: #### L [id number] ####[facility] (BEAKER)[address] [place] [address] Hemoglobin (Bld) [Mass/Vol] 14.3 g/dL Normal 13.0-17.[address] [facility] Comment on above: Performed By: #### L [id number] ####[facility] (BEAKER)[address] [place] [address] Immature granulocytes (Bld) [#/Vol] 0.04 10*3/uL Normal 0.00-0.[address] [facility] Comment on above: Performed By: #### L [id number] ####[facility] (BEAKER)[address] [place] [address] Immature granulocytes/100 WBC (Bld) 0.6 % Normal 0.0-1.[address] [facility] Comment on above: Performed By: #### L [id number] ####[facility] (BEAKER)[address] [place] [address] Lymphocytes (Bld) [#/Vol] 1.67 10*3/uL Normal 1.20-4.[address] [facility] Comment on above: Performed By: #### L [id number] ####[facility] (BEAKER)[address] [place] [address] Lymphocytes/100 WBC (Bld) 25.6 % Normal 20.0-45.[address] [facility] Comment on above: Performed By: #### L [id number] ####[facility] (BEAKER)[address] [place] [address] MCH (RBC) [Entitic mass] 31.9 pg Normal 27.0-33.[address] [facility] Comment on above: Performed By: #### L [id number] ####[facility] (BEAKER)[address] [place] [address] MCV (RBC) [Entitic vol] 93.8 fL Normal 82.0-98.[address] [facility] Comment on above: Performed By: #### L [id number] ####[facility] (BE[facility]ER)[address] [place] [address] Monocytes (Bld) [#/Vol] 0.49 10*3/uL Normal 0.10-1.[address] [facility] Comment on above: Performed By: #### L [id number] ####[facility] (BEAKER)[address] [place] [address] Monocytes/100 WBC (Bld) 7.5 % Normal 5.0-12.[address] [facility] Comment on above: Performed By: #### L [id number] ####[facility] (BEAKER)[address] [place] [address] Neutrophils (Bld) [#/Vol] 4.17 10*3/uL Normal 1.60-7.[address] [facility] Comment on above: Performed By: #### L [id number] ####[facility] ([facility])[address] [place] [address] Neutrophils/100 WBC (Bld) 63.9 % Normal 40.0-72.[address] [facility] Comment on above: Performed By: #### L [id number] ####[facility] ([facility])[address] [place] [address] NRBC (PER 100 WBCS) BY AUTOMATED COUNT 0.0 % Normal [address] [facility] Comment on above: Performed By: #### L [id number] ####[facility] ([facility])[address] [place] [address] PLATELETS (10*3/UL) IN BLOOD AUTOMATED COUNT 186 10*3/uL Normal 150-[address] [facility] Comment on above: Performed By: #### L [id number] ####[facility] ([facility])[address] [place] [address] RBC (Bld) [#/Vol] 4.48 10*6/uL Normal 4.20-5.70 [facility] Comment on above: Performed By: #### L [id number] ####[facility] ([facility])[address] [place] [address] WBC (Bld) [#/Vol] 6.53 10*3/uL Normal 4.00-10.60 [facility] Comment on above: Performed By: #### L [id number] ####[facility] [place] [address] COMPREHENSIVE METABOLIC PANE [place] 08-17-2023 Albumin [Mass/Vol] 4.0 g/dL Normal 3.5-5.[address] [facility] Comment on above: Performed By: #### L [id number] ####[facility] (BEAKER)[address] [place] [address] ALP [Catalytic activity/Vol] 98 U/L Normal 34-[address] [facility] Comment on above: Performed By: #### L [id number] ####[facility] (BEAKER)[address] [place] [address] ALT [Catalytic activity/Vol] 25 U/L Normal 7-[address] [facility] Comment on above: Performed By: #### L [id number] ####[facility] (BE[facility]ER)[address] [place] [address] Anion gap [Moles/Vol] 12 mmol/L Normal 7-[address] [facility] Comment on above: Performed By: #### L [id number] ####[facility] ([facility]ER)[address] [place] [address] AST [Catalytic activity/Vol] 19 U/L Normal 13-[address] [facility] Comment on above: Performed By: #### L [id number] ####[facility] (BE[facility]ER)[address] [place] [address] Bilirubin [Mass/Vol] 0.5 mg/dL Normal 0.3-1.[address] [facility] Comment on above: Performed By: #### L [id number] ####[facility] ([facility]ER)[address] [place] [address] Calcium [Mass/Vol] 8.8 mg/dL Normal 8.6-10.[address] [facility] Comment on above: Performed By: #### L [id number] ####[facility] ([facility])[address] [place] [address] Chloride [Moles/Vol] 102 mmol/L Normal 98-[address] [facility] Comment on above: Performed By: #### L [id number] ####[facility] ([facility])[address] [place] [address] CO2 [Moles/Vol] 27 mmol/L Normal 21-31 [facility] Comment on above: Performed By: #### L [id number] ####[facility] ([facility])[address] [place] [address] Creatinine [Mass/Vol] 1.12 mg/dL Normal 0.70-1.[address] [facility] Comment on above: Performed By: #### L [id number] ####[facility] ([facility])[address] [place] [address] GLOMERULAR FILTRATION RATE ML/MIN/1.73 SQ M.PREDICTED 66.0 mL/min/1.73m*2 Normal >60.[address] [facility] Comment on above: Result Comment: The [facility]???s estimated glomerular filtration rate (eGFR) will no [...] of individuals. Performed By: #### L [id number] ####[facility] ([facility])[address] [place] [address] Glucose [Mass/Vol] 95 mg/dL Normal 70-[address] [facility] Comment on above: Performed By: #### L [id number] ####[facility] ([facility])[address] [place] [address] Potassium [Moles/Vol] 3.7 mmol/L Normal 3.5-5.[address] [facility] Comment on above: Performed By: #### L [id number] ####[facility] ([facility])[address] [place] [address] Protein [Mass/Vol] 6.6 g/dL Normal 6.0-8.[address] [facility] Comment on above: Performed By: #### L [id number] ####[facility] ([facility])[address] [place] [address] Sodium [Moles/Vol] 137 mmol/L Normal 136-[address] [facility] Comment on above: Performed By: #### L [id number] ####[facility] ([facility])[address] [place] [address] Urea nitrogen [Mass/Vol] 16 mg/dL Normal 7-[address] [facility] Comment on above: Performed By: #### L [id number] ####[facility] (BEJONNA)[address] [place] [address] UREA NITROGEN/CREATININ E (MASS RATIO) IN SER/PLAS 14.[address] [facility] Comment on above: Performed By: #### L [id number] ####[facility] (BEAKER)[address] [place] [address] Follow-Upon 08-17-2023 Follow-Up [id number] AlmasTravis Vicky 1940 M Date Provider Department Center 08/17/2023 LUIS DANIEL HAYNES [facility] RHEUM Eloise Heal No family history on file Level of Service:80225 UT OFFICE/OUTPATIENT ESTABLISHED MOD MDM 30 MIN Reason for Visit and Comments: Follow-up [485128] - 6 mo follow up [facility] Orders Onlyon 08-17-2023 Orders Only [id number] Travis Coburn 1940 M Date Provider Department Center 08/17/2023 JOON VAZQUEZ [facility] RHEUM Eloise Heal No family history on file [facility] Office Visiton 08-16-2023 Follow-up visit [id number] Travis Coburn 1940 M Date Provider Department Center 08/16/2023 TOO [facility] NEPHRO Comprehensiv No family history on file Level of Service:42693 UT OFFICE/OUTPATIENT NEW MODERATE MDM 45 MINUTES (GC) Reason for Visit and Comments: New Patient [632] [facility] Ambulatory Visit Summaryon 0 07-18-2023 Ambulatory Visit Summary ALMASTRAVIS HERCULES :1940 Visit Date:07/18/2023 Ambulatory Visit Instructions Your Care Team Attending Physician - MAXX TURNER, Wade Peter Primary Care Physician - Landon TURNER, Mayra Referring Physician - Mayra Navarrete MD This Is Your Medications List Contact prescribing physician if questions or concerns amitriptyline (amitriptyline 50 mg Tab) aspirin cholecalciferol (Vitamin D3) folic acid (Folate 1 mg Tab) furosemide (Lasix) glimepiride (glimepiride 1 mg Tab) hydrochlorothiazide-i rbesartan (hydrochlorothiazide- irbesartan 12.5 mg-300 mg Tab) 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 (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 5 mg oral tablet) oxybutynin (oxybutynin 5 mg ER Tab) pantoprazole (Protonix) polyethylene glycol 3350 (MiraLax) predniSONE (predniSONE 2.5 mg oral tablet) rosuvastatin (rosuvastatin 5 mg Tab) Procedures Performed right knee arthroscopy (04/09/2014), Cystoscopic removal of ureteric stent (02/25/2003), Arthroscopic knee operation, Colonoscopy, Cystoscopy, Cystoscopy, Esophagogastroduodeno scopy, ESWL - Extracorporeal shockwave lithotripsy for renal calculus, Excision of breast mass, H/O repair of rotator cuff..., heart catheterization, Hemorrhoidectomy, Prostate Surgery, Repair of elbow, Shoulder Surgery. Discharge Vitals Heart Rate (Peripheral) 92 Respiratory Rate 16 Blood Pressure 138/88 Height 175 cm Height 69 in Weight 108 kg Weight 237.6 lb BMI 35.27 What to do next Scheduled Follow-Up Appointments Monday 1:40 PM EST With: MAXX TURNER, Wade Peter Where: [facility] [place] Normal [address] [place] [address]- \.br\ Medications\.br\ What How Much When Instructions\.br\ Unchanged amitriptyline (amitriptyline 50 mg Tab) 1 Tablets By Mouth Once a day (at bedtime) Contact prescribing physician if questions or concerns \.br\ Unchanged aspirin 81 Milligram By Mouth Every day taking 2 times per week Contact prescribing physician if questions or concerns \.br\ Unchanged cholecalciferol (Vitamin D3) By Mouth Every day Contact prescribing physician if questions or concerns \.br\ Unchanged folic acid (Folate 1 mg Tab) Contact prescribing physician if questions or concerns \.br\ Unchanged furosemide (Lasix) 20 Milligram By Mouth Every day Contact prescribing physician if questions or concerns \.br\ Unchanged glimepiride (glimepiride 1 mg Tab) 1 Tablets By Mouth Every day Contact prescribing physician if questions or concerns \.br\ Unchanged hydrochlorothiazid e-irbesartan (hydrochlorothiazi de-irbesartan 12.5 mg-300 mg Tab) 1 Tablets By Mouth Every day Contact prescribing physician if questions or concerns \.br\ Unchanged 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 (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 5 mg oral tablet) 4 Tablets By Mouth Every week Contact prescribing physician if questions or concerns \.br\ Unchanged oxybutynin (oxybutynin 5 mg ER Tab) 1 Tablets By Mouth At bedtime Contact prescribing physician if questions or concerns \.br\ Unchanged pantoprazole (Protonix) 40 Milligram By Mouth Every day Contact prescribing physician if questions or concerns \.br\ Unchanged polyethylene glycol 3350 (MiraLax) 17 Gram By Mouth Every day Contact prescribing physician if questions or concerns \.br\ Unchanged predniSONE (predniSONE 2.5 mg oral tablet) 2 Tablets By Mouth Every day Contact prescribing physician if questions or concerns \.br\ Unchanged rosuvastatin (rosuvastatin 5 mg Tab) TAKE 1 TABLET BY MOUTH AT BEDTIME Contact prescribing physician if questions or concerns \.br\ Medications and Immunizations Administered\.br\ Not Given\.br\ influenza virus vaccine, inactivated, Patient Refuses\.br\ Allergies\.br\ Latex (Unknown)\.br\ penicillins (Anaphylaxis)\.br\ sulfa drugs\.br\ Problems\.br\ Ongoing - Any problem that you are currently receiving treatment for.\.br\ Abnormal biliary HIDA scan\.br\ Abnormal gallbladder ultrasound\.br\ Anxiety\.br\ BMI 35.0-35.9,adult\.b r\ BPH with urinary obstruction\.br\ Diabetes\.br\ Former smoker\.br\ Gastroesophageal reflux\.br\ Hepatic steatosis\.br\ Hiatal hernia\.br\ History of Helicobacter pylori infection\.br\ History of kidney stones\.br\ HTN (hypertension)\.br \ Hypertriglyceridem ia\.br\ Impotence\.br\ Kidney stones\.br\ Migraine\.br\ Neuropathy\.br\ Nocturia\.br\ Obesity 09-JAN-2014 12:37:00<$>\.br\ Polymyalgia rheumatica\.br\ Prostatitis\.br\ Psoriasis\.br\ Psoriatic arthritis\.br\ Sinus arrhythmia\.br\ Sleep apnea\.br\ Urinary frequency\.br\ Urinary urgency\.br\ Vitamin B 12 deficiency\.br\ Vitamin D deficiency\.br\ Weight loss\.br\ Historical - Any problem that you are no longer receiving treatment for.\.br\ Epigastric pain\.br\ Loss of appetite\.br\ Nausea with vomiting\.br\ Patient Survey\.br\ You may receive a survey via text or e-mail asking about your office visit. Please share your experience with us by completing your survey. We appreciate your feedback and thank you for choosing us for your care.\.br\ \.br\ [facility] Physician Referralon 024 Physician Referral [phone] 1 [id number] .00TIFF [facility] Physician Referral [phone] 1 [id number] .00TIFF [facility] 36on 06-13-2023 36 New order faxed to [facility] Also Options explained to Patient, who expressed understanding [facility] 36 Pt called (very anxious) to let you know that the Nephrology office can not see him until 08/01/23. [facility] Orders Onlyon 06-13-2023 Orders Only [id number] Travis Coburn 1940 M Date Provider Department Center 06/13/2023 Diane-LUIS DANIEL BRUNNER [facility]F [facility] No family history on file [facility] Telephoneon 06-13-2023 Telephone [id number] Travis Coburn 1940 M Date Provider Department Center 06/13/2023 853-MIGUEL GRANDE [facility] R[facility]UM Eloise Heal No family history on file [facility] 36on 06-09-2023 36 Could you please shayla l patient [facility] Orders Onlyon 06-09-2023 Orders Only [id number] Travis Coburn 1940 M Date Provider Department Center 06/09/2023 RAS GREGORY C RHEUM Eloise Heal No family history on file [facility] FLUORO FOR SURGICAL PROCEDUR ESon 04-05-2023 FLUORO FOR SURGICAL PROCEDURES RADRPT Radiology exam is complete. No Radiologist dictation. Please follow up with ordering provider. Final result Normal [facility] SURGICALon 04-05-2023 SURGICAL [place] [facility] TRAVIS [place]URN [id number] Assoc. Page 1 of [address] [place] [address] PROC: 04/05/2023 [facility] RECV: 04/06/[address] RPTD: 04/07/2023 [place] [address] LOC: NTA ACCT: [id number] SEX: M : 1940 AGE: 82 Y PATHOLOGY REPORT ATTN: NON-STAFF PHYSICIAN REQ: MICHELLE BARRY Copies To: MAYRA NAVARRETE Clinical Information: AGE-RELATED OSTEOPOROSIS WITH CURRENT PATHOLOGICAL FRACTURE OF VERTEBRA, INITIAL ENCOUNTER FINAL DIAGNOSIS: L1, vertebral body, bone core biopsies: Crushed bone and blood clot. Negative for malignancy/neoplasia. Specimen: BIOPSY OF BONE, L1 VERTEBRAL BODY Gross Examination: The container is labeled Travis Coburn, L1 vertebral body biopsy. Received in formalin [...] developed and its performance characteristics determined by [facility]. It has not been cleared or approved by the U.S. Food and Drug Administration. Pursuant to the requirements of CLIA, this laboratory has established and verified the test's accuracy and precision. Additional information about this type of test is available upon request. [id number] REJI FITZGERALD M.D., F.C.A.P. [facility]/ [facility] Printed on: 04/07/2023 [address] [place], [place] [address] Original print date: 04/07/2023 Normal [facility] Surgical Pathology Requeston 04-05-2023 MALLIKA SEE BELOW Normal [facility] Comment on above: Order Comment: Age-r elated osteoporosis with current pathological fracture of vertebra, initial encounter ([facility]) [M80.08XA] Pre-op diagnosis: L1 Vertebral body Biopsy Result Comment: [place] [facility] TRAVIS COBURN [id number]\X0D0A\Assoc. Page 1 of 1\X0D0A\[address]\X0D0A\[place] [address]\X0D0A\ PROC: 04/05/2023\X0D0A\[facility] RECV: 04/06/2023\X0D0A\[address] RPTD: 04/07/2023\X0D0A\[place] [address]\X0D0A\ LOC: [place]\X0D0A\ ACCT: [id number] SEX: M\X0D0A\ : 1940 AGE: 82 Y\X0D0A\X0D0A\ PATHOLOGY REPORT\X0D0A\ ATTN: NON-STAFF PHYSICIAN\X0D0A\ REQ: MICHELLE BAHN\X0D0A\X0D0A\X0D0A\Copies To: MAYRA NAVARRETE\X0D0A\X0D0A\X0D0A\Clinical Information: AGE-RELATED OSTEOPOROSIS WITH CURRENT\X0D0A\PATHOLOGICAL FRACTURE OF [...] was developed and its performance characteristics determined\X0D0A\by [facility]. It has not been cleared or\X0D0A\approved by the U.S. Food and Drug Administration. Pursuant to the\X0D0A\requirements of CLIA, this laboratory has established and verified the\X0D0A\test's accuracy and precision. Additional information about this type\X0D0A\of test is available upon request.\X0D0A\X0D0A\01064\X0D0A\75449\X0D0A\06912\X0D0A\X0D0A\X 0D0A\ \X0D0A\ REJI FITZGERALD M.D., F.C.A.P.\X0D0A\X0D0A\X0D0A\[facility]/ [facility] Printed on: 04/07/2023\X0D0A\[address]\X0D0A\[place], [place] [address]\X0D0A\Original print date: 04/07/2023 Performed By: #### 1 [id number] #### [facility] See Report Ambulatory Visit Summaryon 0 03-20-2023 Ambulatory Visit Summary TRAVIS COBURN :1940 Visit Date:03/20/2023 Ambulatory Visit Instructions Your Diagnosis Nocturia Urinary urgency BPH with urinary obstruction History of kidney stones Impotence Tests Performed Urnls Dip Stick Auto w/o Microscopy POC 69006 Your Care Team Attending Physician - Nguyễn VELA MD Primary Care Physician - Mayra Navarrete MD This Is Your Medications List oxybutynin (oxybutynin 5 mg ER Tab) Contact prescribing physician if questions or concerns acetaminophen-oxycodo ne (Percocet 5 mg-325 mg oral tablet) adalimumab [...] (02/25/2003), Arthroscopic knee operation, Colonoscopy, Cystoscopy, Cystoscopy, Esophagogastroduodeno scopy, ESWL - Extracorporeal shockwave lithotripsy for renal [...] TURNER, Nguyễn Peter Where: [facility] [place] Normal [facility] Patient Educationon 03-20-20 23 Patient Education Urology Benign Prostatic Hyperplasia Benign [...] Follow these instructions at home: ? Take [id number] and prescription medicines only as told by [...] the medicine (more content not included)... Normal [facility] Urology Office/Clinic Noteon 03-20-2023 Urology Office/Clinic Note [...] he had an intensional fall due to crystallographer almost tilting over so pt had to [...] and history for this patient from Dr. Vela. I have reviewed and verified the staff [...] the ER after falling off of his crystallographer and injuring his back. Reports he has [...] Follow-up With When Contact Information MIRIAN TURNER, NASEEM Gamez In 6 months [facility] [address], [place] [address] [phone] Additional Instructions: Patient Education Benign Prostatic Hyperplasia I, Jackeline Graff, personally scribed for Dr. Vela on 03/20/2023 15:38:16. . Documentation recorded by the scribe, Jackeline Graff, accurately reflects the services(s) I performed and decisions made by me. Authenticated by Dr. Vela on 03/20/2023 15:41:05. Problem List/Past Medical History [...] qualifying data Procedure/ (more content not included)... [facility] Comment on above: Result Comment: Elec tronically Signed By: Nguyễn VELA MD\.br\Date and Time Signed: 03/20/23 15:41 EDT\.br\Electronically Co-Signed By: Jackeline Graff\.br\Date and Time Co-Signed: 03/20/23 15:38 EDT 36on 03-09-2023 36 Orders faxed w/ dx code [facility] 36on 03-07-2023 36 Person from [facility] lab called to states ICD-10 code (current code on order Z79.631) on blood work order is not being accepted by patient's medicare insurance. They would need a new order w/ a new dx code. I can fax new order to below number when completed [facility] Telephoneon 03-07-2023 Telephone [id number] Travis Coburn 1940 M Date Provider Department Center 03/07/2023 YOUSUF DUBON RHC RHEUM [facility] No family history on file Reason for Visit and Comments: Med Refill [[id number]] [facility] Follow-Upon 02-23-2023 Follow-Up [id number] Travis Coburn 1940 M Date Provider Department Center 02/23/2023 317-LUIS DANIEL BRUNNER RHC RHEUM [facility] No family history on file Level of Service:95001 UT OFFICE/OUTPATIENT ESTABLISHED MOD MDM 30-39 MIN Reason for Visit and Comments: Follow-up [[id number]] - 4 mo follow up psoriatic RA polymayalgia rheumatica [facility] 36on 11-18-2022 36 The patient will nee d new prescription [facility] 36 Pt would like to go back on Prednisone with Methotrexate. [facility] Telephoneon 11-18-2022 Telephone [id number] Travis Coburn 1940 M Date Provider Department Center 11/18/2022 LUIS DANIEL HAYNES UTCF RHEUM UTCF No family history on file [facility] Follow-Upon 10-27-2022 Follow-Up [id number] Travis Coburn 1940 M Date Provider Department Center 10/27/2022 LUIS DANIEL HAYNES RHC RHEUM [facility] No family history on file Level of Service:85100 UT OFFICE/OUTPATIENT ESTABLISHED MOD MDM 30-39 MIN Reason for Visit and Comments: Follow-up [[id number]] - DISCUSS MEDS [facility] INSULINon 10-26-2022 Insulin 34.8 uIU/mL Critically high 2.6-24.9 [facility] Comment on above: Performed By: #### C BC #### [facility] [address] [place] [address] Dr. Layla Barrera CBC AUTO DIFFon 10-25-2022 BASO # 0.0 103/ul Normal 0.0-0.1 [facility] Comment on above: Performed By: #### C BC #### [facility] [address] [place] [address] Dr. Layla Barrera Basophils/100 WBC (Bld) 0.6 % Normal 0.2-2.0 [facility] Comment on above: Performed By: #### C BC #### [facility] [address] [place] [address] Dr. Layla Barrera EO # 0.3 103/ul Normal 0.0-0.7 [facility] Comment on above: Performed By: #### C BC #### [facility] [address] [place] [address] Dr. Layla Barrera Eosinophils/100 WBC (Bld) 4.2 % Normal 0.9-7.0 [facility] Comment on above: Performed By: #### C BC #### [facility] [address] [place] [address] Dr. Layla Barrera Erythrocyte distribution width (RBC) [Ratio] 13.6 % Normal 11.0-15.0 [facility] Comment on above: Performed By: #### C BC #### [facility] [address] [place] [address] Dr. Layla Barrera Hematocrit (Bld) [Volume fraction] 42.6 % Normal 42.0-54.0 [facility] Comment on above: Performed By: #### C BC #### [facility] [address] [place] [address] Dr. Layla Barrera Hemoglobin (Bld) [Mass/Vol] 14.7 g/dL Normal 14.0-18.0 [facility] Comment on above: Performed By: #### C BC #### [facility] [address] [place] [address] Dr. Layla Barrera IG # 0.02 10e3/ul Normal 0.00-0.03 [facility] Comment on above: Performed By: #### C BC #### [facility] [address] [place] [address] Dr. Layla Barrera IG % 0.3 % Normal 0.0-0.5 [facility] Comment on above: Performed By: #### C BC #### [facility] [address] [place] [address] Dr. Layla Barrera LYMPH # 2.1 103/ul Normal 1.2-3.8 [facility] Comment on above: Performed By: #### C BC #### [facility] [address] [place] [address] Dr. Layla Barrera Lymphocytes/100 WBC (Bld) 30.1 % Normal 20.5-60.0 [facility] Comment on above: Performed By: #### C BC #### [facility] [address] [place] [address] Dr. Layla Barrera MANUAL DIFF REQ NO Normal [facility] Comment on above: Performed By: #### C BC #### [facility] [address] [place] [address] Dr. Layla Barrera MCH (RBC) [Entitic mass] 32.1 pg Normal 25.9-34.0 [facility] Comment on above: Performed By: #### C BC #### [facility] [address] [place] [address] Dr. Layla Barrera MCHC (RBC) [Mass/Vol] 34.5 g/dL Normal 29.9-35.2 [facility] Comment on above: Performed By: #### C BC #### [facility] [address] [place] [address] Dr. Layla Barrera MCV (RBC) [Entitic vol] 93.0 fL Normal 80.0-94.0 [facility] Comment on above: Performed By: #### C BC #### [facility] [address] [place] [address] Dr. Layla Barrera MONO # 0.6 103/ul Normal 0.3-0.8 [facility] Comment on above: Performed By: #### C BC #### [facility] [address] [place] [address] Dr. Layla Barrera Monocytes/100 WBC (Bld) 8.5 % Normal 1.7-12.0 [facility] Comment on above: Performed By: #### C BC #### [facility] [address] [place] [address] Dr. Layla Barrera NEUT # 3.9 103/ul Normal 1.4-6.5 [facility] Comment on above: Performed By: #### C BC #### [facility] [address] [place] [address] Dr. Layla Barrera Neutrophils/100 WBC (Bld) 56.3 % Normal 43.0-75.0 [facility] Comment on above: Performed By: #### C BC #### [facility] [address] [place] [address] Dr. Layla Barrera Platelet mean volume (Bld) [Entitic vol] 10.6 fL Normal 9.5-13.5 [facility] Comment on above: Performed By: #### C BC #### [facility] [address] [place] [address] Dr. Layla Barrera PLT 168 103/ul Normal 150-450 [facility] Comment on above: Performed By: #### C BC #### [facility] [address] [place] [address] Dr. Layla Barrera RBC 4.58 106/ul Critically low 4.70-6.10 [facility] Comment on above: Performed By: #### C BC #### [facility] [address] [place] [address] Dr. Layla Barrera WBC 7.0 103/ul Normal 4.0-11.0 [facility] Comment on above: Performed By: #### C BC #### [facility] [address] [place] [address] Dr. Layla Barrera FREE THYROXINE INDEX T7on FTI 2.21 Normal 1.30-4.50 [facility] Comment on above: Performed By: #### C BC #### [facility] [address] [place] [address] Dr. Layla Barrera T3U 33.0 % Normal 33.0-40.0 [facility] Comment on above: Performed By: #### C BC #### [facility] [address] [place] [address] Dr. Layla Barrera T4 [Mass/Vol] 6.70 ug/dL Normal 4.50-12.10 [facility] Comment on above: Performed By: #### C BC #### [facility] [address] [place] [address] Dr. Layla Barrera GLYCOHEMOGLOBIN A1Con 2022 ADA RECOMMENDATION SEE BELOW Normal [facility] Comment on above: Result Comment: ADA RECOMMENDED LIMIT 4.0 - 6.0 ADA THERAPEUTIC TARGET < 7.0 ACTION SUGGESTED > 7.0 Performed By: #### G IPANEL #### [facility] [address] [address] [address] Layla Barrera Glucose [Mass/Vol] 146 mg/dL Normal [facility] Comment on above: Performed By: #### G IPANEL #### [facility] [address] [place] [address] Dr. Layla Barrera HbA1c (Bld) [Mass fraction] 6.7 % Critically high 4.5-6.2 [facility] Comment on above: Performed By: #### G IPANEL #### [facility] [address] [place] [address] Dr. Layla Barrera IRONon 10-25-2022 Iron [Mass/Vol] 82.0 ug/dL Normal 65.0-175.0 [facility] Comment on above: Performed By: #### I SONYA MCGOVERN [id number] #### [facility] [address] [place] [address] Dr. Layla Barrera LIPID PROFILEon 10-25-2022 CHOL-HDL RATIO NORM SEE BELOW Normal [facility] Comment on above: Result Comment: 3.3 - 4.4 LOW RISK 4.4 - 7.1 AVERAGE RISK 7.1 - 11.0 MODERATE RISK >11.0 HIGH RISK Performed By: #### C BC #### [facility] [address] [place] [address] Dr. Layla Barrera Cholesterol [Mass/Vol] 201 mg/dL Critically high <=200 [facility] Comment on above: Performed By: #### C BC #### [facility] [address] [place] [address] Dr. Layla Barrera Cholesterol in HDL [Mass/Vol] 46 mg/dL Normal 40-60 [facility] Comment on above: Performed By: #### C BC #### [facility] [address] [place] [address] Dr. Layla Barrera Cholesterol in LDL [Mass/Vol] 133.4 mg/dL Normal [facility] Comment on above: Performed By: #### C BC #### [facility] [address] [place] [address] Dr. Layla Barrera Cholesterol.total/ Cholesterol in HDL [Mass ratio] 4.4 {ratio} Normal [facility] Comment on above: Performed By: #### C BC #### [facility] [address] [address] [address] Layla Barrera HDL NORMAL > or = 60 mg/dl - LO W CARDIOVASCULAR RISK <40 mg/dl - HIGH CARDIOVASCULAR RISK Normal [facility] Comment on above: Performed By: #### C BC #### [facility] [address] [place] [address] Dr. Layla Barrera LDL CALC NORMAL SEE BELOW Normal [facility] Comment on above: Result Comment: <100 mg/dl OPTIMAL 100 - 129 mg/dl NEAR OR ABOVE OPTIMAL 130 - 159 mg/dl BORDERLINE HIGH 160 - 189 mg/dl HIGH >190 mg/dl VERY HIGH Performed By: #### C BC #### [facility] [address] [place] [address] Dr. Layla Barrera Triglyceride [Mass/Vol] 108 mg/dL Normal <=150 [facility] Comment on above: Performed By: #### C BC #### [facility] [address] [place] [address] Dr. Layla Barrera VLDL CALC 21.6 mg/dL Normal [facility] Comment on above: Performed By: #### C BC #### [facility] [address] [place] [address] Dr. Layla Barrera PROF 14(COMP METB)on 023 Albumin [Mass/Vol] 3.6 g/dL Normal 3.4-5.[address] [facility] Comment on above: Performed By: #### C BC #### [facility] [address] [place] [address] Dr. Layla Barrera Albumin/Globulin [Mass ratio] 1.0 {ratio} Normal [facility] Comment on above: Performed By: #### C BC #### [facility] [address] [place] [address] Dr. Layla Barrera ALP [Catalytic activity/Vol] 101 U/L Normal 46-116 [facility] Comment on above: Performed By: #### C BC #### [facility] [address] [place] [address] Dr. Layla Barrera ALT [Catalytic activity/Vol] 42 U/L Normal 16-63 [facility] Comment on above: Performed By: #### C BC #### [facility] [address] [place] [address] Dr. Layla Barrera Anion gap [Moles/Vol] 12.8 mmol/L Normal [facility] Comment on above: Performed By: #### C BC #### [facility] [address] [address] [address] Layla Barrera AST [Catalytic activity/Vol] 26 U/L Normal 15-37 [facility] Comment on above: Performed By: #### C BC #### [facility] [address] [place] [address] Dr. Layla Barrera Bilirubin [Mass/Vol] 0.7 mg/dL Normal 0.2-1.0 [facility] Comment on above: Performed By: #### C BC #### [facility] [address] [place] [address] Dr. Layla Barrera Calcium [Mass/Vol] 8.9 mg/dL Normal 8.5-10.[address] [facility] Comment on above: Performed By: #### C BC #### [facility] [address] [place] [address] Dr. Layla Barrera Chloride [Moles/Vol] 103 mmol/L Normal 98-107 [facility] Comment on above: Performed By: #### C BC #### [facility] [address] [place] [address] Dr. Layla Barrera CO2 [Moles/Vol] 26.3 mmol/L Normal 21.0-32.0 [facility] Comment on above: Performed By: #### C BC #### [facility] [address] [place] [address] Dr. Layla Barrera Creatinine [Mass/Vol] 1.24 mg/dL Normal 0.70-1.30 [facility] Comment on above: Performed By: #### C BC #### [facility] [address] [place] [address] Dr. Layla Barrera EGFR-AF UGANDAN >60 Normal >=60 [facility] Comment on above: Performed By: #### C BC #### [facility] [address] [address] [address] Layla Barrera EGFR-NON AF UGANDAN 56 mL/min/1.73m2 Critically low >=60 [facility] Comment on above: Performed By: #### C BC #### [facility] [address] [address] [address] Layla Barrera Globulin (S) [Mass/Vol] 3.5 g/dL Normal [facility] Comment on above: Performed By: #### C BC #### [facility] [address] [address] [address] Layla Barrera Glucose [Mass/Vol] 147 mg/dL Critically high 74-106 [facility] Comment on above: Performed By: #### C BC #### [facility] [address] [address] [address] Layla Barrera Potassium [Moles/Vol] 4.1 mmol/L Normal 3.5-5.1 [facility] Comment on above: Performed By: #### C BC #### [facility] [address] [address] [address] Layla Barrera Protein [Mass/Vol] 7.1 g/dL Normal 6.4-8.[address] [facility] Comment on above: Performed By: #### C BC #### [facility] [address] [address] [address] Layla Barrera Sodium [Moles/Vol] 138 mmol/L Normal 136-[address] [facility] Comment on above: Performed By: #### C BC #### [facility] [address] [address] [address] aLyla Barrera Urea nitrogen [Mass/Vol] 18.0 mg/dL Normal 7.0-18.0 [facility] Comment on above: Performed By: #### C BC #### [facility] [address] [address] [address] Layla Barrera Urea nitrogen/Creatinin e [Mass ratio] 14.5 mg/mg Normal [facility] Comment on above: Performed By: #### C BC #### [facility] [address] [place] [address] Dr. Layla Barrera TSHon 10-25-2022 TSH 2.495 uIU/mL Normal 0.358-3.740 [facility] Comment on above: Performed By: #### C BC #### [facility] [address] [place] [address] Dr. Layla Barrera URIC ACID SERUMon 10-25-2022 Urate [Mass/Vol] 8.1 mg/dL Critically high 3.5-7.2 [facility] Comment on above: Performed By: #### C BC #### [facility] [address] [place] [address] Dr. Layla Barrera VITAMIN B12on 10-25-2022 Cobalamin (Vitamin B12) [Mass/Vol] 689.0 pg/mL Normal 193.0-986.0 [facility] Comment on above: Performed By: #### I SONYA MCGOVERN, VITB12 #### [facility] [address] [place] [address] Dr. Layla Barrera VITAMIN D 25 OHon 10-25-2022 VIT D 25-OH 17.0 ng/mL Normal [facility] Comment on above: Performed By: #### I SONYA MCGOVERN, VITB12 #### [facility] [address] [place] [address] Dr. Layla Barrera VIT D RANGES SEE BELOW Normal [facility] Comment on above: Result Comment: <20 ng/mL Vit D deficient 20 - <30 ng/mL Vit D insufficient 30 - 100 ng/mL Vit D sufficient >100 ng/mL Potential Toxicity Performed By: #### I SONYA MCGOVERN, VITB12 #### [facility] [address] [place] [address] Dr. Layla Barrera 3610-20-2022 36 Pt aware appt scheduled [facility] 36 Patient called again to state that he might have to go to the ED if he does not hear from you soon [facility] 36on 10-19-2022 36 Patient calling regarding 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, [...] may be contributing to his conditions. Normal [facility] CBC WITH AUTO DIFFERENTIALon 08-25-2022 Basophils (Bld) [#/Vol] 0.04 10*3/uL Normal 0.00-0.[address] [facility] Comment on above: Performed By: #### L [id number] ####[facility] ([facility])[address] [place] [address] Basophils/100 WBC (Bld) 0.6 % Normal 0.0-1.[address] [facility] Comment on above: Performed By: #### L [id number] ####[facility] ([facility])[address] [place] [address] Eosinophils (Bld) [#/Vol] 0.13 10*3/uL Normal 0.00-0.[address] [facility] Comment on above: Performed By: #### L [id number] ####[facility] ([email or web address])[address] [place] [address] Eosinophils/100 WBC (Bld) 2.0 % Normal 0.0-6.[address] [facility] Comment on above: Performed By: #### L [id number] ####[facility] ([email or web address])[address] [place] [address] Erythrocyte distribution width (RBC) [Ratio] 13.3 % Normal 11.5-15.[address] [facility] Comment on above: Performed By: #### L [id number] ####[facility] [place] [address] ERYTHROCYTE MEAN CORPUSCULAR HEMOGLOBIN CONCENTRATION (G/DL) BY AUTOMATED 34.8 g/dL Normal 32.0-35.[address] [facility] Comment on above: Performed By: #### L [id number] ####[facility] ([facility])[address] [place] [address] Hematocrit (Bld) [Volume fraction] 42.8 % Normal 39.0-55.[address] [facility] Comment on above: Performed By: #### L [id number] ####[facility] ([facility])[address] [place] [address] Hemoglobin (Bld) [Mass/Vol] 14.9 g/dL Normal 13.0-17.[address] [facility] Comment on above: Performed By: #### L [id number] ####[facility] ([facility])[address] [place] [address] Immature granulocytes (Bld) [#/Vol] 0.04 10*3/uL Normal 0.00-0.[address] [facility] Comment on above: Performed By: #### L [id number] ####[facility] ([facility])[address] [place] [address] Immature granulocytes/100 WBC (Bld) 0.6 % Normal 0.0-1.[address] [facility] Comment on above: Performed By: #### L [id number] ####[facility] ([facility])[address] [place] [address] Lymphocytes (Bld) [#/Vol] 2.05 10*3/uL Normal 1.20-4.[address] [facility] Comment on above: Performed By: #### L [id number] ####[facility] ([facility])[address] [place] [address] Lymphocytes/100 WBC (Bld) 30.9 % Normal 20.0-45.[address] [facility] Comment on above: Performed By: #### L [id number] ####[facility] ([facility])[address] [place] [address] MCH (RBC) [Entitic mass] 31.6 pg Normal 27.0-33.[address] [facility] Comment on above: Performed By: #### L [id number] ####[facility] ([facility])[address] [place] [address] MCV (RBC) [Entitic vol] 90.9 fL Normal 82.0-98.[address] [facility] Comment on above: Performed By: #### L [id number] ####[facility] ([facility])[address] [place] [address] Monocytes (Bld) [#/Vol] 0.60 10*3/uL Normal 0.10-1.[address] [facility] Comment on above: Performed By: #### L [id number] ####[facility] ([facility])[address] [place] [address] Monocytes/100 WBC (Bld) 9.0 % Normal 5.0-12.[address] [facility] Comment on above: Performed By: #### L [id number] ####[facility] ([facility])[address] [place] [address] Neutrophils (Bld) [#/Vol] 3.78 10*3/uL Normal 1.60-7.[address] [facility] Comment on above: Performed By: #### L [id number] ####[facility] ([facility])[address] [place] [address] Neutrophils/100 WBC (Bld) 56.9 % Normal 40.0-72.[address] [facility] Comment on above: Performed By: #### L [id number] ####[facility] ([facility])[address] [place] [address] NRBC (PER 100 WBCS) BY AUTOMATED COUNT 0.0 % Normal 0.0-0.[address] [facility] Comment on above: Performed By: #### L [id number] ####[facility] ([facility])[address] [place] [address] PLATELETS (10*3/UL) IN BLOOD AUTOMATED COUNT 173 10*3/uL Normal 150-[address] [facility] Comment on above: Performed By: #### L [id number] ####[facility] ([facility])[address] [place] [address] RBC (Bld) [#/Vol] 4.71 10*6/uL Normal 4.20-5.70 [facility] Comment on above: Performed By: #### L [id number] ####[facility] ([facility])[address] [place] [address] WBC (Bld) [#/Vol] 6.64 10*3/uL Normal 4.00-10.60 [facility] Comment on above: Performed By: #### L [id number] ####[facility] ([facility])[address] [place] [address] COMPREHENSIVE METABOLIC PANE [place] 08-25-2022 Albumin [Mass/Vol] 4.1 g/dL Normal 3.5-5.[address] [facility] Comment on above: Performed By: #### L [id number] #### [facility] ([facility]) [address] [place] [address] ALP [Catalytic activity/Vol] 85 U/L Normal 34-[address] [facility] Comment on above: Performed By: #### L [id number] #### [facility] ([facility]) [address] [place] [address] ALT [Catalytic activity/Vol] 47 U/L Normal 7-[address] [facility] Comment on above: Performed By: #### L [id number] #### [facility] ([facility]) [address] [place] [address] Anion gap [Moles/Vol] 9 mmol/L Normal 7-[address] [facility] Comment on above: Performed By: #### L [id number] #### [facility] ([facility]) [address] [place] [address] AST [Catalytic activity/Vol] 31 U/L Normal 13-[address] [facility] Comment on above: Performed By: #### L [id number] #### [facility] ([facility]) [address] [place] [address] Bilirubin [Mass/Vol] 0.6 mg/dL Normal 0.3-1.[address] [facility] Comment on above: Performed By: #### L [id number] #### [facility] ([facility]) [address] [place] [address] Calcium [Mass/Vol] 9.2 mg/dL Normal 8.6-10.[address] [facility] Comment on above: Performed By: #### L [id number] #### [facility] ([facility]) [address] [place] [address] Chloride [Moles/Vol] 102 mmol/L Normal 98-[address] [facility] Comment on above: Performed By: #### L [id number] #### [facility] ([facility]) [address] [place] [address] CO2 [Moles/Vol] 29 mmol/L Normal 21-31 [facility] Comment on above: Performed By: #### L [id number] #### [facility] ([facility]) [address] [place] [address] Creatinine [Mass/Vol] 1.09 mg/dL Normal 0.70-1.[address] [facility] Comment on above: Performed By: #### L [id number] #### [facility] ([facility]) [address] [place] [address] GLOMERULAR FILTRATION RATE ML/MIN/1.73 SQ M.PREDICTED 63.8 mL/min/1.73m*2 Normal >60.[address] [facility] Comment on above: Result Comment: The [facility]???s estimated glomerular filtration rate (eGFR) will no [...] of individuals. Performed By: #### L [id number] #### [facility] ([facility]) [address] [place] [address] Glucose [Mass/Vol] 142 mg/dL High 70-[address] [facility] Comment on above: Performed By: #### L [id number] #### [facility] ([facility]) [address] [place] [address] Potassium [Moles/Vol] 4.1 mmol/L Normal 3.5-5.[address] [facility] Comment on above: Performed By: #### L [id number] #### [facility] ([facility]) [address] [place] [address] Protein [Mass/Vol] 7.0 g/dL Normal 6.0-8.[address] [facility] Comment on above: Performed By: #### L [id number] #### [facility] ([facility]) [address] [place] [address] Sodium [Moles/Vol] 136 mmol/L Normal 136-[address] [facility] Comment on above: Performed By: #### L [id number] #### [facility] ([facility]) [address] [place] [address] Urea nitrogen [Mass/Vol] 14 mg/dL Normal 7-[address] [facility] Comment on above: Performed By: #### L [id number] #### [facility] ([facility]) [address] [place] [address] UREA NITROGEN/CREATININ E (MASS RATIO) IN SER/PLAS 12.[address] [facility] Comment on above: Performed By: #### L [id number] #### [facility] ([facility]) [address] [place] [address] Follow-Upon 08-25-2022 Follow-Up [id number] Travis Coburn 1940 M Date Provider Department Center 08/25/2022 [facility]LU[facility] DANIEL BRUNNER [facility] RHEUM Eloise Heal No family history on file Level of Service:75467 [place] OFFICE/OUTPATIENT ESTABLISHED MOD MDM 30-39 MIN () Reason for Visit and Comments: Follow-up [713551] Normal [facility] PSA, FREE AND TOTAL RATIOon 06-22-2022 % Free PSA 49.9 % Normal [facility] Comment on above: Result Comment: The table below lists the probability of prostate cancer for men with non-suspicious JEANETH results and total PSA between 4 and 10 ng/mL, by patient age (Ricardo et al, EDNA 1998, 279:1542). % Free PSA 50-64 yr 65-75 yr 0.00-10.00% 56% 55% 10.01-15.00% 24% 35% 15.01-20.00% 17% 23% 20.01-25.00% 10% 20% >25.00% 5% 9% Please note: Ricardo et al did not make specific recommendations regarding the use of percent free PSA for any other population of men. Performed By: #### P SAFREE #### [facility] [address] [place] [address] Dr. Layla Barrera Prostate specific Ag [Mass/Vol] 6.8 ng/mL Critically high 0.0-4.0 [facility] Comment on above: Result Comment: Nikki bassett ECLIA methodology. . According to the [employer], Serum PSA should decrease and [...] disease. Performed By: #### P SAFREE #### [facility] [address] [place] [address] Dr. Layla Barrera PSA, Free 3.39 ng/mL Normal N/A [facility] Comment on above: Result Comment: Nikki bassett ECLIA methodology. Performed By: #### P SAFREE #### [facility] [address] [place] [address] Dr. Layla Barrera H PYLORI ANTIBODY IGGon 090 H. PYLORI IGG ABS 0.96 Index Value Critically high 0.00-0. 79 [facility] Comment on above: Result Comment: Nega tive <0.80 Equivocal 0.80 - 0.89 Positive >0.89 Performed By: #### C BC #### [facility] [address] [place] [address] Dr. Layla Barrera INSULINon 03-12-2022 Insulin 38.7 uIU/mL Critically high 2.6-24.9 [facility] Comment on above: Performed By: #### G IPANEL #### [facility] [address] [place] [address] Dr. Layla Barrera AMYLASEon 03-11-2022 Amylase [Catalytic activity/Vol] 54 U/L Normal 25-115 [facility] Comment on above: Performed By: #### G IPANEL #### [facility] [address] [place] [address] Dr. Layla Barrera CBC AUTO DIFFon 03-11-2022 BASO # 0.1 103/ul Normal 0.0-0.1 [facility] Comment on above: Performed By: #### C BC #### [facility] [address] [place] [address] Dr. Layla Barrera Basophils/100 WBC (Bld) 0.7 % Normal 0.2-2.0 [facility] Comment on above: Performed By: #### C BC #### [facility] [address] [place] [address] Dr. Layla Barrera EO # 0.3 103/ul Normal 0.0-0.7 [facility] Comment on above: Performed By: #### C BC #### [facility] [address] [place] [address] Dr. Layla Barrera Eosinophils/100 WBC (Bld) 3.6 % Normal 0.9-7.0 [facility] Comment on above: Performed By: #### C BC #### [facility] [address] [place] [address] Dr. Layla Barrera Erythrocyte distribution width (RBC) [Ratio] 13.2 % Normal 11.0-15.0 [facility] Comment on above: Performed By: #### C BC #### [facility] [address] [place] [address] Dr. Layla Barrera Hematocrit (Bld) [Volume fraction] 43.0 % Normal 42.0-54.0 [facility] Comment on above: Performed By: #### C BC #### [facility] [address] [place] [address] Dr. Layla Barrera Hemoglobin (Bld) [Mass/Vol] 14.6 g/dL Normal 14.0-18.0 [facility] Comment on above: Performed By: #### C BC #### [facility] [address] [place] [address] Dr. Layla Barrera IG # 0.03 10e3/ul Normal 0.00-0.03 [facility] Comment on above: Performed By: #### C BC #### [facility] [address] [place] [address] Dr. Layla Barrera IG % 0.4 % Normal 0.0-0.5 [facility] Comment on above: Performed By: #### C BC #### [facility] [address] [place] [address] Dr. Layla Barrera LYMPH # 3.0 103/ul Normal 1.2-3.8 [facility] Comment on above: Performed By: #### C BC #### [facility] [address] [place] [address] Dr. Layla Barrera Lymphocytes/100 WBC (Bld) 41.2 % Normal 20.5-60.0 [facility] Comment on above: Performed By: #### C BC #### [facility] [address] [place] [address] Dr. Layla Barrera MANUAL DIFF REQ NO Normal [facility] Comment on above: Performed By: #### C BC #### [facility] [address] [place] [address] Dr. Layla Barrera MCH (RBC) [Entitic mass] 31.8 pg Normal 25.9-34.0 [facility] Comment on above: Performed By: #### C BC #### [facility] [address] [place] [address] Dr. Layla Barrera MCHC (RBC) [Mass/Vol] 34.0 g/dL Normal 29.9-35.2 [facility] Comment on above: Performed By: #### C BC #### [facility] [address] [place] [address] Dr. Layla Barrera MCV (RBC) [Entitic vol] 93.7 fL Normal 80.0-94.0 [facility] Comment on above: Performed By: #### C BC #### [facility] [address] [place] [address] Dr. Layla Barrera MONO # 0.6 103/ul Normal 0.3-0.8 [facility] Comment on above: Performed By: #### C BC #### [facility] [address] [address] [address] Layla Barrera Monocytes/100 WBC (Bld) 7.9 % Normal 1.7-12.0 [facility] Comment on above: Performed By: #### C BC #### [facility] [address] [place] [address] Dr. Layla Barrera NEUT # 3.3 103/ul Normal 1.4-6.5 [facility] Comment on above: Performed By: #### C BC #### [facility] [address] [place] [address] Dr. Layla Barrera Neutrophils/100 WBC (Bld) 46.2 % Normal 43.0-75.0 [facility] Comment on above: Performed By: #### C BC #### [facility] [address] [place] [address] Dr. Layla Barrera Platelet mean volume (Bld) [Entitic vol] 11.1 fL Normal 9.5-13.5 [facility] Comment on above: Performed By: #### C BC #### [facility] [address] [place] [address] Dr. Layla Barrera PLT 171 103/ul Normal 150-450 [facility] Comment on above: Performed By: #### C BC #### [facility] [address] [place] [address] Dr. Layla Barrera RBC 4.59 106/ul Critically low 4.70-6.10 [facility] Comment on above: Performed By: #### C BC #### [facility] [address] [place] [address] Dr. Layla Barrera WBC 7.2 103/ul Normal 4.0-11.0 [facility] Comment on above: Performed By: #### C BC #### [facility] [address] [address] ABD/PELV W CONon [...] CJ MELTON Date: 2022-03-11 10:08 Normal [facility] GI PANEL (PCR)on 03-11-2022 Adenovirus F 40/41 Not detected Normal NOT DETECTED [facility] Comment on above: Performed By: #### G IPANEL #### [facility] [address] [place] [address] Dr. Layla Barrera Astrovirus Not detected Normal NOT DETECTED [facility] Comment on above: Performed By: #### G IPANEL #### [facility] [address] [place] [address] Dr. Layla Vincent. Diff toxin A/B Not detected Normal NOT DETECTED [facility] Comment on above: Performed By: #### G IPANEL #### [facility] [address] [place] [address] Dr. Layla Barrera Campylobacter Not detected Normal NOT DETECTED [facility] Comment on above: Performed By: #### G IPANEL #### [facility] [address] [address] [address] Layla Barrera Cryptosporidium Not detected Normal NOT DETECTED [facility] Comment on above: Performed By: #### G IPANEL #### [facility] [address] [address] [address] Layla Barrera Cyclos. Cayetanensis Not detected Normal NOT DETECTED [facility] Comment on above: Performed By: #### G IPANEL #### [facility] [address] [address] [address] Layla Barrera E. Coli O157 Not Applicable Normal Not Applicable [facility] Comment on above: Performed By: #### G IPANEL #### [facility] [address] [place] [address] Dr. Layla Barrera E. histolytica Not detected Normal NOT DETECTED [facility] Comment on above: Performed By: #### G IPANEL #### [facility] [address] [place] [address] Dr. Layla Barrera EAEC Not detected Normal NOT DETECTED [facility] Comment on above: Performed By: #### G IPANEL #### [facility] [address] [place] [address] Dr. Layla Barrera EIEC Not detected Normal NOT DETECTED [facility] Comment on above: Performed By: #### G IPANEL #### [facility] [address] [address] [address] Layla Barrera EPEC Detected Abnormal NOT DETECTED [facility] Comment on above: Performed By: #### G IPANEL #### [facility] [address] [address] [address] Layla Barrera ETEC Not detected Normal NOT DETECTED [facility] Comment on above: Performed By: #### G IPANEL #### [facility] [address] [place] [address] Dr. Layla Barrera G. Lamblia Not detected Normal NOT DETECTED [facility] Comment on above: Performed By: #### G IPANEL #### [facility] [address] [address] [address] Layla STEINBERG CONTROLS PASSED Normal [facility] Comment on above: Performed By: #### G IPANEL #### [facility] [address] [address] [address] Layla [facility] HEADER GI PANEL BACTERIA Normal T [facility] Comment on above: Performed By: #### G IPANEL #### [facility] [address] [address] [address] Layla SARAVIA ECOLI GI PANEL DIARRHEAGENIC E.COLI / SHIGELLA Normal [facility] Comment on above: Performed By: #### G IPANEL #### [facility] [address] [place] [address] Dr. Layla SARAVIA INFO SEE BELOW Normal [facility] Comment on above: Result Comment: EAEC - Enteroaggregative E. Coli EPEC- Enteropathogenic E. Coli ETEC- Enterotoxigenic E. Coli lt/st STEC- Shigella-like toxin-producing E. Coli stx1/stx2 EIEC- Shigella/Enteroinvasive E. Coli Performed By: #### G IPANEL #### [facility] [address] [address] [address] Layla SARAVIA PARASITES GI PANEL PARASITES Normal [facility] Comment on above: Performed By: #### G IPANEL #### [facility] [address] [address] [address] Layla SARAVIA VIRUS GI PANEL VIRUSES Normal [facility] Comment on above: Performed By: #### G IPANEL #### [facility] [address] [address] [address] Layla Barrera Norovirus GI/GII Not detected Normal NOT DETECTED [facility] Comment on above: Performed By: #### G IPANEL #### [facility] [address] [place] [address] Dr. Layla Barrera P. Shigelloides Not detected Normal NOT DETECTED [facility] Comment on above: Performed By: #### G IPANEL #### [facility] [address] [address] [address] Layla Barrera Rotavirus A Not detected Normal NOT DETECTED [facility] Comment on above: Performed By: #### G IPANEL #### [facility] [address] [place] [address] Dr. Layla Barrera Salmonella Not detected Normal NOT DETECTED [facility] Comment on above: Performed By: #### G IPANEL #### [facility] [address] [address] [address] Layla Barrera Sapovirus Not detected Normal NOT DETECTED [facility] Comment on above: Performed By: #### G IPANEL #### [facility] [address] [place] [address] Dr. Layla Barrera STEC Not detected Normal NOT DETECTED [facility] Comment on above: Performed By: #### G IPANEL #### [facility] [address] [place] [address] Dr. Layla Barrera Vibrio Not detected Normal NOT DETECTED [facility] Comment on above: Performed By: #### G IPANEL #### [facility] [address] [place] [address] Dr. Layla Barrera Vibrio Cholera Not detected Normal NOT DETECTED [facility] Comment on above: Performed By: #### G IPANEL #### [facility] [address] [place] [address] Dr. Layla Barrera Y. Enterocolitica Not detected Normal NOT DETECTED [facility] Comment on above: Performed By: #### G IPANEL #### [facility] [address] [place] [address] Dr. Layla Barrera GLYCOHEMOGLOBIN A1Con 2021 ADA RECOMMENDATION SEE BELOW Normal [facility] Comment on above: Result Comment: ADA RECOMMENDED LIMIT 4.0 - 6.0 ADA THERAPEUTIC TARGET < 7.0 ACTION SUGGESTED > 7.0 Performed By: #### G IPANEL #### [facility] [address] [place] [address] Dr. Layla Barrera Glucose [Mass/Vol] 134 mg/dL Normal [facility] Comment on above: Performed By: #### G IPANEL #### [facility] [address] [address] [address] Layla Barrera HbA1c (Bld) [Mass fraction] 6.3 % Critically high 4.5-6.2 [facility] Comment on above: Performed By: #### G IPANEL #### [facility] [address] [place] [address] Dr. Layla Barrera LIPASEon 03-11-2022 Lipase [Catalytic activity/Vol] 82.0 U/L Normal 73.0-393.0 [facility] Comment on above: Performed By: #### G IPANEL #### [facility] [address] [place] [address] Dr. Layla Barrera LIPID PROFILEon 03-11-2022 CHOL-HDL RATIO NORM SEE BELOW Normal [facility] Comment on above: Result Comment: 3.3 - 4.4 LOW RISK 4.4 - 7.1 AVERAGE RISK 7.1 - 11.0 MODERATE RISK >11.0 HIGH RISK Performed By: #### G IPANEL #### [facility] [address] [place] [address] Dr. Layla Barrera Cholesterol [Mass/Vol] 216 mg/dL Critically high <=200 [facility] Comment on above: Performed By: #### G IPANEL #### [facility] [address] [place] [address] Dr. Layla Barrera Cholesterol in HDL [Mass/Vol] 47 mg/dL Normal 40-60 [facility] Comment on above: Performed By: #### G IPANEL #### [facility] [address] [place] [address] Dr. Layla Barrera Cholesterol in LDL [Mass/Vol] 134.4 mg/dL Normal [facility] Comment on above: Performed By: #### G IPANEL #### [facility] [address] [place] [address] Dr. Layla Barrera Cholesterol.total/ Cholesterol in HDL [Mass ratio] 4.6 {ratio} Normal [facility] Comment on above: Performed By: #### G IPANEL #### [facility] [address] [address] [place], [place] [id number] Dr. Layla Barrera HDL NORMAL > or = 60 mg/dl - LO W CARDIOVASCULAR RISK <40 mg/dl - HIGH CARDIOVASCULAR RISK Normal [facility] Comment on above: Performed By: #### G IPANEL #### [facility] [address] [address] [address] Layla Barrera LDL CALC NORMAL SEE BELOW Normal [facility] Comment on above: Result Comment: <100 mg/dl OPTIMAL 100 - 129 mg/dl NEAR OR ABOVE OPTIMAL 130 - 159 mg/dl BORDERLINE HIGH 160 - 189 mg/dl HIGH >190 mg/dl VERY HIGH Performed By: #### G IPANEL #### [facility] [address] [address] [address] Layla Barrera Triglyceride [Mass/Vol] 173 mg/dL Critically high <=150 [facility] Comment on above: Performed By: #### G IPANEL #### [facility] [place] [facility] [address] [address] [address] Layla Barrera VLDL CALC 34.6 mg/dL Normal [facility] Comment on above: Performed By: #### G IPANEL #### [facility] [address] [address] [address] Layla Barrera OCC BLD IMMUNO SCREENon OCCULT BLOOD Negative Normal NEGATIVE [facility] Comment on above: Performed By: #### C BC #### [facility] [place] [facility] [address] [address] [address] Layla Barrera PROF 14(COMP METB)on 022 Albumin [Mass/Vol] 3.7 g/dL Normal 3.4-5.[address] [facility] Comment on above: Performed By: #### C BC #### [facility] [address] [address] [address] Layla Barrera Albumin/Globulin [Mass ratio] 1.1 {ratio} Normal [facility] Comment on above: Performed By: #### C BC #### [facility] [address] [address] [address] Layla Barrera ALP [Catalytic activity/Vol] 90 U/L Normal 46-116 [facility] Comment on above: Performed By: #### C BC #### [facility] [address] [address] [address] Layla Barrera ALT [Catalytic activity/Vol] 66 U/L Critically high 16-63 [facility] Comment on above: Performed By: #### C BC #### [facility] [place] [facility] [address] [address] [address] Layla Barrera Anion gap [Moles/Vol] 12.8 mmol/L Normal [facility] Comment on above: Performed By: #### C BC #### [facility] [place] [facility] [address] [address] [address] Layla Barrera AST [Catalytic activity/Vol] 32 U/L Normal 15-37 [facility] Comment on above: Performed By: #### C BC #### [facility] [address] [place] [address] Dr. Layla Barrera Bilirubin [Mass/Vol] 0.7 mg/dL Normal 0.2-1.0 [facility] Comment on above: Performed By: #### C BC #### [facility] [place] [facility] [address] [place] [address] Dr. Layla Barrera Calcium [Mass/Vol] 8.9 mg/dL Normal 8.5-10.[address] [facility] Comment on above: Performed By: #### C BC #### [facility] [address] [place] [address] Dr. Layla Barrera Chloride [Moles/Vol] 100 mmol/L Normal 98-107 [facility] Comment on above: Performed By: #### C BC #### [facility] [address] [address] [address] Layla Barrera CO2 [Moles/Vol] 27.9 mmol/L Normal 21.0-32.0 [facility] Comment on above: Performed By: #### C BC #### [facility] [address] [place] [address] Dr. Layla Barrera Creatinine [Mass/Vol] 1.30 mg/dL Normal 0.70-1.30 [facility] Comment on above: Performed By: #### C BC #### [facility] [address] [address] [address] Layla Barrera EGFR-AF UGANDAN >60 Normal >=[address] [facility] Comment on above: Performed By: #### C BC #### [facility] [address] [address] [address] Layla Barrera EGFR-NON AF UGANDAN 53 mL/min/1.73m2 Critically low >=60 [facility] Comment on above: Performed By: #### C BC #### [facility] [address] [address] [address] Layla Barrera Globulin (S) [Mass/Vol] 3.3 g/dL Normal [facility] Comment on above: Performed By: #### C BC #### [facility] [address] [place] [address] Dr. Layla Barrera Glucose [Mass/Vol] 137 mg/dL Critically high 74-106 [facility] Comment on above: Performed By: #### C BC #### [facility] [address] [address] [address] Layla Barrera Potassium [Moles/Vol] 3.7 mmol/L Normal 3.5-5.1 [facility] Comment on above: Performed By: #### C BC #### [facility] [address] [place] [address] Dr. Layla Barrera Protein [Mass/Vol] 7.0 g/dL Normal 6.4-8.[address] [facility] Comment on above: Performed By: #### C BC #### [facility] [address] [place] [address] Dr. Layla Barrera Sodium [Moles/Vol] 137 mmol/L Normal 136-[address] [facility] Comment on above: Performed By: #### C BC #### [facility] [address] [address] [address] Layla Barrera Urea nitrogen [Mass/Vol] 20.0 mg/dL Critically high 7.0-18.0 [facility] Comment on above: Performed By: #### C BC #### [facility] [address] [address] [address] Layla Barrera Urea nitrogen/Creatinin e [Mass ratio] 15.4 mg/mg Normal [facility] Comment on above: Performed By: #### C BC #### [facility] [address] [address] [address] Layla Barrera URIC ACID SERUMon 03-11-2022 Urate [Mass/Vol] 8.3 mg/dL Critically high 3.5-7.2 [facility] Comment on above: Performed By: #### G IPANEL #### [facility] [address] [address] [address] Layla Barrera Office Visit (Cardiology)on 12-28-2021 [...] and in the presence of Dr. Johnnie Deras MD. Please bring all medicines, vitamins, and [...] TABLET DAILY DIRECTED. Humira Pen KITUSE DIRECTED. Irbesartan-hydroCHLOR Othiazide 300-12.5 MG Oral TabletTAKE 1 TABLET ONCE [...] 09:51AM Hea (more content not included)... Normal [employer] Tobacco Screening.on 022 Fall risk assessment a) No falls within the last year [facility] [address] DO Work Phone: Tobacco use status CPHS b) No -[facility] [address] DO Work Phone: NO CARDIAC STRESS/REST INJE CTIONon 12-21-2021 NO CARDIAC STRESS/REST INJECTION Patient Name: TRAVIS COBURN STUDY: MYOCARDIAL PERFUSION STRESS TEST WITH LEXISCAN Performing facility: 0 NO Provider: Azalea Deras MD, [facility] PCP: Dr. Navarrete Supervising provider: Wade Ramos DO, [facility] INDICATION: CAD; Dyspnea HISTORY: Gender: M; Age: 81 y/o ; Height: 0 cm; Weight: 956.8419371 kg. CAD; High Cholesterol; HTN; SOB; Fatigue; Quit smoking 30 years ago. Cardiac catheterization on 2005. COMPARISON: Previous nuclear testing completed [id number] at [facility]. ACCESSION NUMBER(S): [id number]; [id number]; [id number] ORDERING CLINICIAN: JOHNNIE DERAS TECHNIQUE: TWO DAY protocol. Stress injection: Date:12-21-21, 33.9 mCi of Myoview IV 20 seconds after rapid injection of Lexiscan. Rest injection: Date: 12-22-21, 35.6 mCi of Myoview IV at rest. The patient had a rapid injection of 0.4 mg of Lexiscan IV over 10 seconds. Imaging was performed by gated tomographic technique. Reason for Lexiscan: dizziness/unsteady/fa ll risk STRESS TEST DATA: Resting heart rate [...] Electronically signed by: ABDOUL TIMMONS MD Normal [facility] No Panel Informationon 12-21 Normal -[facility] [address] DO Work Phone: Office Visit (Cardiology)on [...] Stress/Rest Nuclear Med Order; Status:Hold For - Scheduling,Retrospect jenny Authorization; Requested for:08Dec2021; Radiologist to Determine Optimal Study : Y What are the patient's signs and symptoms? : dyspnea, dizziness, chest discomfort Dizziness IO EKG Electrocardiogram- 12 Lead; Status:Complete; Done: 08Dec2021 SocHx: Former smoker Tobacco Use Screening; Status:Complete; Done: 08Dec2021 Patient Instructions By signing my name below, I, Svitlana Castano LPN, Scribe, attest that this documentation has been prepared under the direction and in the presence of Dr. Johnnie Deras MD. All medical record entries made by [...] TABLET DAILY DIRECTED. Humira Pen KITUSE DIRECTED. Irbesartan-hydroCHLOR Othiazide 300-12.5 MG Oral TabletTAKE 1 TABLET ONCE [...] DAILY. Allergies (more content not included)... Normal [employer] Tobacco Screening.on 022 Adult depression screening assessment No [facility] [place] [address] DO Work Phone: Fall risk assessment a) No falls within the last year [facility] [place] [address] DO Work Phone: Tobacco use status CPHS b) No [facility] [place] 250 DO Work Phone: C REACTIVE PROTEINon 022 CRP [Mass/Vol] 3.3 mg/L Normal 0.0-7.[address] [facility] Comment on above: Performed By: #### 6 1405 #### [facility] [address] CBC AUTO DIFFon 11-25-2021 BASO # 0.0 103/ul Normal 0.0-0.1 [facility] Comment on above: Performed By: #### G IPANEL #### [facility] [address] [place] [address] Dr. Layla Barrera Basophils/100 WBC (Bld) 0.5 % Normal 0.2-2.0 [facility] Comment on above: Performed By: #### G IPANEL #### [facility] [address] [place] [address] Dr. Layla Barrera EO # 0.2 103/ul Normal 0.0-0.7 [facility] Comment on above: Performed By: #### G IPANEL #### [facility] [address] [place] [address] Dr. Layla Barrera Eosinophils/100 WBC (Bld) 3.0 % Normal 0.9-7.0 [facility] Comment on above: Performed By: #### G IPANEL #### [facility] [address] [place] [address] Dr. Layla Barrera Erythrocyte distribution width (RBC) [Ratio] 13.7 % Normal 11.0-15.0 [facility] Comment on above: Performed By: #### G IPANEL #### [facility] [address] [place] [address] Dr. Layla Barrera Hematocrit (Bld) [Volume fraction] 40.0 % Critically low 42.0-54.0 [facility] Comment on above: Performed By: #### G IPANEL #### [facility] [address] [place] [address] Dr. Layla Barrera Hemoglobin (Bld) [Mass/Vol] 13.4 g/dL Critically low 14.0-18.0 [facility] Comment on above: Performed By: #### G IPANEL #### [facility] [address] [place] [address] Dr. Layla Barrera IG # 0.02 10e3/ul Normal 0.00-0.03 [facility] Comment on above: Performed By: #### G IPANEL #### [facility] [address] [place] [address] Dr. Layla Barrera IG % 0.3 % Normal 0.0-0.5 [facility] Comment on above: Performed By: #### G IPANEL #### [facility] [address] [place] [address] Dr. Layla Barrera LYMPH # 2.4 103/ul Normal 1.2-3.8 [facility] Comment on above: Performed By: #### G IPANEL #### [facility] [address] [place] [address] Dr. Lyala Barrera Lymphocytes/100 WBC (Bld) 39.6 % Normal 20.5-60.0 [facility] Comment on above: Performed By: #### G IPANEL #### [facility] [address] [place], [place] [address] Dr. Layla Barrera MANUAL DIFF REQ NO Normal [facility] Comment on above: Performed By: #### G IPANEL #### [facility] [address] [place] [address] Dr. Layla Barrera MCH (RBC) [Entitic mass] 31.3 pg Normal 25.9-34.0 [facility] Comment on above: Performed By: #### G IPANEL #### [facility] [address] [place] [address] Dr. Layla Barrera MCHC (RBC) [Mass/Vol] 33.5 g/dL Normal 29.9-35.2 [facility] Comment on above: Performed By: #### G IPANEL #### [facility] [address] [place] [address] Dr. Layla Barrera MCV (RBC) [Entitic vol] 93.5 fL Normal 80.0-94.0 [facility] Comment on above: Performed By: #### G IPANEL #### [facility] [address] [place] [address] Dr. Layla Barrera MONO # 0.6 103/ul Normal 0.3-0.8 [facility] Comment on above: Performed By: #### G IPANEL #### [facility] [address] [place] [address] Dr. Layla Barrera Monocytes/100 WBC (Bld) 9.3 % Normal 1.7-12.0 [facility] Comment on above: Performed By: #### G IPANEL #### [facility] [address] [place] [address] Dr. Layla Barrera NEUT # 2.8 103/ul Normal 1.4-6.5 [facility] Comment on above: Performed By: #### G IPANEL #### [facility] [address] [place] [address] Dr. Layla Barrera Neutrophils/100 WBC (Bld) 47.3 % Normal 43.0-75.0 [facility] Comment on above: Performed By: #### G IPANEL #### [facility] [address] [place] [address] Dr. Layla Barrera Platelet mean volume (Bld) [Entitic vol] 10.4 fL Normal 9.5-13.5 [facility] Comment on above: Performed By: #### G IPANEL #### [facility] [address] [address] [address] Layla Barrera PLT 184 103/ul Normal 150-450 [facility] Comment on above: Performed By: #### G IPANEL #### [facility] [address] [address] [address] Layla Barrera RBC 4.28 106/ul Critically low 4.70-6.10 [facility] Comment on above: Performed By: #### G IPANEL #### [facility] [address] [address] [address] Layla Barrera WBC 5.9 103/ul Normal 4.0-11.0 [facility] Comment on above: Performed By: #### G IPANEL #### [facility] [address] [place] [address] Dr. Layla Barrera CBC W/DIFFon 11-25-2021 ABS IMM GRANS 0.0 10*3/uL Normal 0.0-0.[address] [facility] Comment on above: Performed By: #### 5 3636, 12112 #### [facility] [address] [place] [address], [facility] ABS NEUTROPHILS 3.6 10*3/uL Normal 1.6-7.[address] [facility] Comment on above: Performed By: #### 5 3266, 44548 #### [facility] [address] [facility] [place] [address], [facility] Basophils (Bld) [#/Vol] 0.0 10*3/uL Normal 0.0-0.[address] [facility] Comment on above: Performed By: #### 5 437, 73739 #### [facility] [address] [facility] [place] [address], [place] Basophils/100 WBC (Bld) 0.4 % Normal 0.0-1.[address] [facility] Comment on above: Performed By: #### 5 6505, 69364 #### [facility] [address] [place] [address], [facility] Eosinophils (Bld) [#/Vol] 0.2 10*3/uL Normal 0.0-0.[address] [facility] Comment on above: Performed By: #### 5 6505, 65069 #### [facility] [address] [place] [address], [facility] Eosinophils/100 WBC (Bld) 2.2 % Normal 0.0-6.[address] [facility] Comment on above: Performed By: #### 5 6505, 88286 #### [facility] [address] Erythrocyte distribution width (RBC) [Ratio] 13.6 % Normal 11.5-15.[address] [facility] Comment on above: Performed By: #### 5 6505, 51501 #### [facility] [address] [place] [address], [facility] Hematocrit (Bld) [Volume fraction] 40.4 % Normal 39.0-50.[address] [facility] Comment on above: Performed By: #### 5 6505, 61168 #### [facility] [address] [place] [address], [facility] Hemoglobin (Bld) [Mass/Vol] 13.7 g/dL Normal 13.0-17.[address] [facility] Comment on above: Performed By: #### 5 6505, 60723 #### [facility] [address] [place] [address], [facility] IMMATURE GRANS 0.3 % Normal 0.0-1.[address] [facility] Comment on above: Performed By: #### 5 6505, 10333 #### [facility] [address] [place] [address], [facility] Lymphocytes (Bld) [#/Vol] 2.4 10*3/uL Normal 1.2-4.[address] [facility] Comment on above: Performed By: #### 5 6505, 45522 #### [facility] [address] [facility] [place] [address], [facility] Lymphocytes/100 WBC (Bld) 35.0 % Normal 20.0-45.[address] [facility] Comment on above: Performed By: #### 5 6505, 78233 #### [facility] [address] [facility] [place] [address], [facility] MCH (RBC) [Entitic mass] 31.8 pg Normal 27.0-33.[address] [facility] Comment on above: Performed By: #### 5 6505, 64568 #### [facility] [address] [facility] [address] MCHC (RBC) [Mass/Vol] 33.9 g/dL Normal 32.0-35.[address] [facility] Comment on above: Performed By: #### 5 6505, 42819 #### [facility] [address] [facility] [place] [address], [facility] MCV (RBC) [Entitic vol] 93.7 fL Normal 82.0-98.[address] [facility] Comment on above: Performed By: #### 5 6505, 25366 #### [facility] [address] [facility] [place] [address], [facility] Monocytes (Bld) [#/Vol] 0.6 10*3/uL Normal 0.1-1.[address] [facility] Comment on above: Performed By: #### 5 6505, 49573 #### [facility] [address] [facility] [place] [address], [facility] MONOS 8.4 % Normal 5.0-12.[address] [facility] Comment on above: Performed By: #### 5 6505, 44663 #### [facility] [address] [facility] [place] [address], [facility] Neutrophils/100 WBC (Bld) 53.7 % Normal 40.0-72.[address] [facility] Comment on above: Performed By: #### 5 650, 23202 #### [facility] [address] [facility] [place] [address], [facility] Nucleated RBC/100 WBC (Bld) [Ratio] 0 % Normal 0-[address] [facility] Comment on above: Performed By: #### 5 650, 19131 #### [facility] [address] [facility] [place] [address], [facility] PLAT CNT 198 10*3/uL Normal 150-[address] [facility] Comment on above: Performed By: #### 5 6505, 46722 #### [facility] [address] [place] [address], [facility] RBC (Bld) [#/Vol] 4.31 10*6/uL Normal 4.20-5.[address] [facility] Comment on above: Performed By: #### 5 6505, 76985 #### [facility] [address] [place] [address], [facility] WBC (Bld) [#/Vol] 6.75 10*3/uL Normal 4.00-10.[address] [facility] Comment on above: Performed By: #### 5 6505, 25453 #### [facility] [address] [facility] [place] [address], [facility] COMP METABOLIC PANELon 11-25 Albumin [Mass/Vol] 4.1 g/dL Normal 3.5-5.[address] [facility] Comment on above: Performed By: #### 0 0121 #### [facility] [address] [facility] [place] [address], [facility] ALKALINE PHOSPH 87 IU/L Normal 34-[address] [facility] Comment on above: Performed By: #### 0 0121 #### [facility] [address] [facility] [place] [address], [facility] ALT [Catalytic activity/Vol] 47 U/L Normal 7-[address] [facility] Comment on above: Performed By: #### 0 0121 #### [facility] [address] [place] [address], [place] AST [Catalytic activity/Vol] 29 U/L Normal 13-[address] [facility] Comment on above: Performed By: #### 0 0121 #### [facility] [address] [place] [address], [place] Bilirubin [Mass/Vol] 0.7 mg/dL Normal 0.3-1.[address] [facility] Comment on above: Performed By: #### 0 0121 #### [facility] [address] [place] [address], [place] Calcium [Mass/Vol] 9.7 mg/dL Normal 8.6-10.[address] [facility] Comment on above: Performed By: #### 0 0121 #### [facility] [address] [place] [address], [place] Chloride [Moles/Vol] 103 mmol/L Normal 98-[address] [facility] Comment on above: Performed By: #### 0 0121 #### [facility] [address] [place] [address], [place] CO2 [Moles/Vol] 30 mmol/L Normal 21-[address] [facility] Comment on above: Performed By: #### 0 0121 #### [facility] [address] [place] [address], [place] Creatinine [Mass/Vol] 1.06 mg/dL Normal 0.70-1.[address] [facility] Comment on above: Performed By: #### 0 0121 #### [facility] [address] [place] [address], [place] GFR/1.73 sq M.predicted among blacks MDRD (S/P/Bld) [Vol rate/Area] mL/min/{1.73_m2} Normal >[address] [facility] Comment on above: Result Comment: Calc ulation may not be valid for patients over 70 years Performed By: #### 0 0121 #### [facility] [address] [place] [address], [place] GFR/1.73 sq M.predicted among non-blacks MDRD (S/P/Bld) [Vol rate/Area] mL/min/{1.73_m2} Normal >[address] [facility] Comment on above: Result Comment: Calc ulation may not be valid for patients over 70 years Performed By: #### 0 0121 #### [facility] [address] [place] [address], [place] Glucose [Mass/Vol] 94 mg/dL Normal 70-[address] [facility] Comment on above: Performed By: #### 0 0121 #### [facility] [address] [place] [address], [place] Potassium [Moles/Vol] 4.7 mmol/L Normal 3.5-5.[address] [facility] Comment on above: Performed By: #### 0 0121 #### [facility] [address] [place] [address], [place] Protein [Mass/Vol] 6.6 g/dL Normal 6.0-8.[address] [facility] Comment on above: Performed By: #### 0 0121 #### [facility] [address] [place] [address], [place] Sodium [Moles/Vol] 138 mmol/L Normal 136-[address] [facility] Comment on above: Performed By: #### 0 0121 #### [facility] [address] [place] [address], [place] Urea nitrogen [Mass/Vol] 17 mg/dL Normal 7-[address] [facility] Comment on above: Performed By: #### 0 0121 #### [facility] [address] FREE THYROXINE INDEX T7on FTI 2.38 Normal 1.30-4.50 [facility] Comment on above: Performed By: #### T SH, CMP, T7, MG #### [facility] [address] [place] [address] Dr. Layla Barrera T3U 34.0 % Normal 33.0-40.0 [facility] Comment on above: Performed By: #### T SH, CMP, T7, MG #### [facility] [address] [place] [address] Dr. Layla Barrera T4 [Mass/Vol] 7.00 ug/dL Normal 4.50-12.10 [facility] Comment on above: Performed By: #### T SH, CMP, T7, MG #### [facility] [address] [place] [address] Dr. Layla Barrera MAGNESIUMon 11-25-2021 Magnesium [Mass/Vol] 1.7 mg/dL Critically low 1.8-2.4 [facility] Comment on above: Performed By: #### T SH, CMP, T7, MG #### [facility] [address] [place] [address] Dr. Layla Barrera PROF 14(COMP METB)on 022 Albumin [Mass/Vol] 3.5 g/dL Normal 3.4-5.[address] [facility] Comment on above: Performed By: #### T SH, CMP, T7, MG #### [facility] [address] [place] [address] Dr. Layla Barrera Albumin/Globulin [Mass ratio] 1.1 {ratio} Normal [facility] Comment on above: Performed By: #### T SH, CMP, T7, MG #### [facility] [address] [place] [address] Dr. Layal Barrera ALP [Catalytic activity/Vol] 97 U/L Normal 46-116 [facility] Comment on above: Performed By: #### T SH, CMP, T7, MG #### [facility] [address] [place] [address] Dr. Layla Barrera ALT [Catalytic activity/Vol] 64 U/L Critically high 16-63 [facility] Comment on above: Performed By: #### T SH, CMP, T7, MG #### [facility] [address] [address] [address] Layla Barrera Anion gap [Moles/Vol] 11.6 mmol/L Normal [facility] Comment on above: Performed By: #### T SH, CMP, T7, MG #### [facility] [address] [address] [address] Layla Barrera AST [Catalytic activity/Vol] 27 U/L Normal 15-37 [facility] Comment on above: Performed By: #### T SH, CMP, T7, MG #### [facility] [address] [place] [address] Dr. Layla Barrera Bilirubin [Mass/Vol] 0.8 mg/dL Normal 0.2-1.0 [facility] Comment on above: Performed By: #### T SH, CMP, T7, MG #### [facility] [address] [place] [address] Dr. Layla Barrera Calcium [Mass/Vol] 9.0 mg/dL Normal 8.5-10.[address] [facility] Comment on above: Performed By: #### T SH, CMP, T7, MG #### [facility] [address] [place] [address] Dr. Layla Barrera Chloride [Moles/Vol] 102 mmol/L Normal 98-107 [facility] [place] [facility] Comment on above: Performed By: #### T SH, CMP, T7, MG #### [facility] [address] [place] [address] Dr. Layla Barrera CO2 [Moles/Vol] 27.3 mmol/L Normal 21.0-32.0 [facility] Comment on above: Performed By: #### T SH, CMP, T7, MG #### [facility] [address] [address] [address] Layla Barrera Creatinine [Mass/Vol] 1.15 mg/dL Normal 0.70-1.30 [facility] Comment on above: Performed By: #### T SH, CMP, T7, MG #### [facility] [address] [address] [address] Layla Barrera EGFR-AF UGANDAN >60 Normal >=[address] [facility] Comment on above: Performed By: #### T SH, CMP, T7, MG #### [facility] [address] [address] [address] Layla Barrera EGFR-NON AF UGANDAN >60 Normal >=60 [facility] Comment on above: Performed By: #### T SH, CMP, T7, MG #### [facility] [address] [address] [address] Layla Barrera Globulin (S) [Mass/Vol] 3.3 g/dL Normal [facility] Comment on above: Performed By: #### T SH, CMP, T7, MG #### [facility] [address] [place] [address] Dr. Layla Barrera Glucose [Mass/Vol] 144 mg/dL Critically high 74-106 [facility] Comment on above: Performed By: #### T SH, CMP, T7, MG #### [facility] [address] [address] [address] Layla Barrera Potassium [Moles/Vol] 3.9 mmol/L Normal 3.5-5.1 [facility] Comment on above: Performed By: #### T SH, CMP, T7, MG #### [facility] [address] [address] [address] Layla Barrera Protein [Mass/Vol] 6.8 g/dL Normal 6.4-8.[address] [facility] Comment on above: Performed By: #### T SH, CMP, T7, MG #### [facility] [address] [place] [address] Dr. Layla Barrera Sodium [Moles/Vol] 137 mmol/L Normal 136-[address] [facility] Comment on above: Performed By: #### T SH, CMP, T7, MG #### [facility] [address] [address] [address] Layla Barrera Urea nitrogen [Mass/Vol] 16.0 mg/dL Normal 7.0-18.0 [facility] Comment on above: Performed By: #### T SH, CMP, T7, MG #### [facility] [address] [address] [address] Layla Barrera Urea nitrogen/Creatinin e [Mass ratio] 13.9 mg/mg Normal [facility] Comment on above: Performed By: #### T SH, CMP, T7, MG #### [facility] [place] [facility] [address] [address] [address] Layla Barrera SEDIMENTATION RATEon 022 SED RATE 10 mm/hr Normal 0-[address] [facility] Comment on above: Performed By: #### 5 [id number], [id number] #### [facility] [address] TSHon 11-25-2021 TSH 2.406 uIU/mL Normal 0.358-3.740 [facility] Comment on above: Performed By: #### T SH, CMP, T7, MG #### [facility] [place] [facility] [address] [place] [address] Dr. Layla Barrera TSH RANGE SEE BELOW Normal [facility] Comment on above: Result Comment: <0.3 4 UIU/ml HYPERTHYROID 0.34-5.60 UIU/ml EUTHYROID >5.60 UIU/ml HYPOTHYROID Performed By: #### T SH, CMP, T7, MG #### [facility] [address] [place] [address] Dr. Layla Barrera CBC W/DIFFon 05-27-2021 ABS IMM GRANS 0.0 10*3/uL Normal 0.0-0.[address] [facility] Comment on above: Performed By: #### 5 0103 #### [facility] 3000 [facility]. [address] ABS NEUTROPHILS 3.8 10*3/uL Normal 1.6-7.[address] [facility] Comment on above: Performed By: #### 5 0103 #### [facility] [address] [facility] [place] [address], [facility] Basophils (Bld) [#/Vol] 0.0 10*3/uL Normal 0.0-0.[address] [facility] Comment on above: Performed By: #### 5 0103 #### [facility] [address] [place] [address], [facility] Basophils/100 WBC (Bld) 0.6 % Normal 0.0-1.[address] [facility] Comment on above: Performed By: #### 5 3 #### [facility] [address] [facility] [place] [address], [facility] Eosinophils (Bld) [#/Vol] 0.2 10*3/uL Normal 0.0-0.[address] [facility] Comment on above: Performed By: #### 102 #### [facility] [address] [facility] [place] [address], [facility] Eosinophils/100 WBC (Bld) 2.7 % Normal 0.0-6.[address] [facility] Comment on above: Performed By: #### 5 3 #### [facility] [address] [facility] Erythrocyte distribution width (RBC) [Ratio] 13.4 % Normal 11.5-15.[address] [facility] Comment on above: Performed By: #### 3 #### [facility] [address] [facility] [place] [address], [facility] Hematocrit (Bld) [Volume fraction] 41.7 % Normal 39.0-50.[address] [facility] Comment on above: Performed By: #### 5 3 #### [facility] [address] [facility] [place] [address], [facility] Hemoglobin (Bld) [Mass/Vol] 14.3 g/dL Normal 13.0-17.[address] [facility] Comment on above: Performed By: #### 5 3 #### [facility] [address] [place] [address], [facility] IMMATURE GRANS 0.6 % Normal 0.0-1.[address] [facility] Comment on above: Performed By: #### 5 0103 #### [facility] [address] [place] [address], [facility] Lymphocytes (Bld) [#/Vol] 2.5 10*3/uL Normal 1.2-4.[address] [facility] Comment on above: Performed By: #### 5 0103 #### [facility] [address] [place] [address], [facility] Lymphocytes/100 WBC (Bld) 35.0 % Normal 20.0-45.[address] [facility] Comment on above: Performed By: #### 5 3 #### [facility] [address] [place] [address], [facility] MCH (RBC) [Entitic mass] 31.6 pg Normal 27.0-33.[address] [facility] Comment on above: Performed By: #### 5 3 #### [facility] [address] [place] [address], [facility] MCHC (RBC) [Mass/Vol] 34.3 g/dL Normal 32.0-35.[address] [facility] Comment on above: Performed By: #### 5 3 #### [facility] [address] [place] [address], [facility] MCV (RBC) [Entitic vol] 92.3 fL Normal 82.0-98.[address] [facility] Comment on above: Performed By: #### 5 0103 #### [facility] [address] [place] [address], [facility] Monocytes (Bld) [#/Vol] 0.5 10*3/uL Normal 0.1-1.[address] [facility] Comment on above: Performed By: #### 5 3 #### [facility] [address] [place] [address], [facility] MONOS 7.4 % Normal 5.0-12.[address] [facility] Comment on above: Performed By: #### 5 0103 #### [facility] [address] [place] [id number], [facility] Neutrophils/100 WBC (Bld) 53.7 % Normal 40.0-72.[address] [facility] Comment on above: Performed By: #### 5 0103 #### [facility] [address] [facility] [place] [address], [facility] Nucleated RBC/100 WBC (Bld) [Ratio] 0 % Normal 0-[address] [facility] Comment on above: Performed By: #### 5 0103 #### [facility] [address] [place] [address], [facility] PLAT CNT 194 10*3/uL Normal 150-[address] [facility] Comment on above: Performed By: #### 5 0103 #### [facility] [address] [facility] [place] [address], [facility] RBC (Bld) [#/Vol] 4.52 10*6/uL Normal 4.20-5.[address] [facility] Comment on above: Performed By: #### 5 0103 #### [facility] [address] [facility] [place] [address], [facility] WBC (Bld) [#/Vol] 7.02 10*3/uL Normal 4.00-10.[address] [facility] Comment on above: Performed By: #### 5 0103 #### [facility] [address] [facility] [place] [address], [facility] LIVER BATTERYon 05-27-2021 Albumin [Mass/Vol] 4.1 g/dL Normal 3.5-5.[address] [facility] Comment on above: Performed By: #### 9 9909 #### [facility] [address] [place] [address], [facility] ALKALINE PHOSPH 75 IU/L Normal 34-[address] [facility] Comment on above: Performed By: #### 9 9909 #### [facility] [address] [place] [address], [facility] ALT [Catalytic activity/Vol] 42 U/L Normal 7-[address] [facility] Comment on above: Performed By: #### 9 9909 #### [facility] [address] [place] [address], [facility] AST [Catalytic activity/Vol] 27 U/L Normal 13-[address] [facility] Comment on above: Performed By: #### 9 9909 #### [facility] [address] [place] [address], [facility] Bilirubin [Mass/Vol] 0.5 mg/dL Normal 0.3-1.[address] [facility] Comment on above: Performed By: #### 9 9909 #### [facility] [address] [place] [address], [facility] Bilirubin.direct [Mass/Vol] 0.1 mg/dL Normal 0.0-0.[address] [facility] Comment on above: Performed By: #### 9 9909 #### [facility] [address] [place] [address], [facility] Protein [Mass/Vol] 6.8 g/dL Normal 6.0-8.[address] [facility] Comment on above: Performed By: #### 9 9909 #### [facility] [address] [place] [address], [facility] Vital Signs Date Time Vital Sign Value Performing Clinician Facility 07-18-2023 14:14-0500 Blood Pressure Location Wade LILLY [facility] [place] 07-18-2023 14:14-0500 Diastolic blood pressure 88 mm[Hg] Wade LILLY [facility] [place] 07-18-2023 14:14-0500 Heart rate 92 /min Wade LILLY [facility] [place] 07-18-2023 14:14-0500 Respiratory rate 16 /min Wade LILLY [facility] [place] 07-18-2023 14:14-0500 Systolic blood pressure 138 mm[Hg] Wade LILLY [facility] 03-20-2023 14:45-0400 Diastolic blood pressure 92 mm[Hg] Nguyễn VELA [facility] 03-20-2023 14:45-0400 Mean blood pressure 111 mm[Hg] Nguyễn VELA [facility] 03-20-2023 14:45-0400 Systolic blood pressure 150 mm[Hg] Nguyễn VELA [facility] 03-20-2023 14:29-0400 Blood Pressure Location Nguyễn VELA [facility] 03-20-2023 14:29-0400 Diastolic blood pressure 91 mm[Hg] Nguyễn VELA [facility] 03-20-2023 14:29-0400 Heart rate 86 /min Nguyễn VELA [facility] 03-20-2023 14:29-0400 Systolic blood pressure 158 mm[Hg] Nguyễn VELA [facility] 12-28-2021 10:15-0400 Body height 177.8 cm Mayra Navarrete Work Phone: [facility] [address] DO Work Phone: 12-28-2021 10:15-0400 Body mass index (BMI) [Ratio] 34.15 kg/m2 Mayra M Hoy Work Phone: [facility] 250 DO Work Phone: 12-28-2021 10:15-0400 Body surface area Derived from formula 2.25 m2 Mayra Jesse Hoy Work Phone: [facility] [address] DO Work Phone: 12-28-2021 10:15-0400 Body weight 107.96 kg Mayra Jesse Hoy Work Phone: [facility] [address] DO Work Phone: 12-28-2021 10:15-0400 Diastolic blood pressure 70 mm[Hg] Mayra Jesse Hoy Work Phone: [facility] [address] DO Work Phone: 12-28-2021 10:15-0400 Heart rate 60 /min Mayra Jesse Hoy Work Phone: [facility] DO Work Phone: 12-28-2021 10:15-0400 Systolic blood pressure 138 mm[Hg] Mayra Jesse Hoy Work Phone: [facility] [address] DO Work Phone: 12-28-2021 09:51-0400 Body height 177.8 cm Mayra Jesse Hoy Work Phone: [facility] DO Work Phone: 12-28-2021 09:51-0400 Body mass index (BMI) [Ratio] 34.15 kg/m2 Mayra Jesse Hoy Work Phone: [facility] DO Work Phone: 12-28-2021 09:51-0400 Body surface area Derived from formula 2.25 m2 Mayra Jesse Hoy Work Phone: [facility] 250 DO Work Phone: 12-28-2021 09:51-0400 Body weight 107.96 kg Mayra M Hoy Work Phone: [facility] DO Work Phone: 12-28-2021 09:51-0400 Diastolic blood pressure 70 mm[Hg] Mayra M Hoy Work Phone: [facility] DO Work Phone: 12-28-2021 09:51-0400 Heart rate 60 /min Mayra M Hoy Work Phone: [facility] DO Work Phone: 12-28-2021 09:51-0400 Systolic blood pressure 146 mm[Hg] Mayra M Hoy Work Phone: [facility] DO Work Phone: 12-22-2021 08:00-0400 53 1 Mayra Jesse Hoy Work Phone: [facility] DO Work Phone: Comment on above: [id number] 12-08-2021 15:22-0400 Body height 177.8 cm Mayra Jesse Hoy Work Phone: [facility] DO Work Phone: 12-08-2021 15:22-0400 Body mass index (BMI) [Ratio] 34.15 kg/m2 Mayra Jesse Hoy Work Phone: [facility] DO Work Phone: 12-08-2021 15:22-0400 Body surface area Derived from formula 2.25 m2 Mayra M Hoy Work Phone: [facility] DO Work Phone: 12-08-2021 15:22-0400 Body weight 107.96 kg Mayra M Hoy Work Phone: [facility] DO Work Phone: 12-08-2021 15:22-0400 Diastolic blood pressure 70 mm[Hg] Mayra M Hoy Work Phone: [facility] DO Work Phone: 12-08-2021 15:22-0400 Heart rate 87 /min Mayra M Hoy Work Phone: [facility] DO Work Phone: 12-08-2021 15:22-0400 Systolic blood pressure 138 mm[Hg] Mayra M Hoy Work Phone: [facility] DO Work Phone: 12-08-2021 15:12-0400 Diastolic blood pressure 70 mm[Hg] Mayra M Hoy Work Phone: [facility] DO Work Phone: 12-08-2021 15:12-0400 Systolic blood pressure 140 mm[Hg] Mayra M Hoy Work Phone: [facility] DO Work Phone: 12-08-2021 15:08-0400 Body height 177.8 cm Mayra M Hoy Work Phone: [facility] DO Work Phone: 12-08-2021 15:08-0400 Body mass index (BMI) [Ratio] 34.15 kg/m2 Mayra M Hoy Work Phone: [facility] DO Work Phone: 12-08-2021 15:08-0400 Body surface area Derived from formula 2.25 m2 Mayra M Hoy Work Phone: [facility] 250 DO Work Phone: 12-08-2021 15:08-0400 Body weight 107.96 kg Mayra M Hoy Work Phone: [facility] DO Work Phone: 12-08-2021 15:08-0400 Diastolic blood pressure 82 mm[Hg] Mayra Navarrete Work Phone: [facility] DO Work Phone: 12-08-2021 15:08-0400 Heart rate 87 /min Mayra Navarrete Work Phone: [facility] DO Work Phone: 12-08-2021 15:08-0400 Systolic blood pressure 142 mm[Hg] Mayra Molina Homichelle Work Phone: [facility] DO Work Phone: Encounters Encounter Date Encounter Type Care Provider Facility Start: 09-18-2023 ambulatory Nguyễn Gilman ty:[facility] [place] Start: 09-01-2023 ambulatory Wade R NILL Facility : [place] Start: 08-22-2023 End: 08-23-2023 ambulatory Wade R NILL Facility: [facility] Start: 08-22-2023 End: 08-22-2023 Patient encounter procedure Wade R NILL [facility] N[facility]/Said [facility] Start: 08-22-2023 End: 08-22-2023 ambulatory MD Mayra Navarrete Work Phone: [facility] Work Phone: Start: 08-22-2023 End: 08-22-2023 Departed Referred MD Mayra Navarrete Work Phone: [facility] [place] [facility] Start: 08-17-2023 End: 08-17-2023 ambulatory LUIS DANIEL BRUNNER [facility] Start: 08-16-2023 End: 08-16-2023 ambulatory TOO THOMPSON [facility] Start: 07-20-2023 End: 07-20-2023 ambulatory RADHA EARL Not Available Start: 07-18-2023 End: 07-19-2023 ambulatory Mayra Navarrete Facility: [facility] Start: 07-18-2023 End: 07-18-2023 Patient encounter procedure Wade Peter MAXX General Surgery Nill/Said [facility] Start: 04-05-[address] [facility] Start: 04-05-2023 End: 04-05-2023 ambulatory MICHELLE Molina [facility] Start: 03-20-2023 End: 03-21-2023 ambulatory Nguyễn VELA Facility:[facility] Start: 03-20-2023 End: 03-20-2023 Patient encounter procedure Nguyễn Brittani VELA [facility] Start: 02-23-2023 End: 02-23-2023 ambulatory [facility] Start: 10-28-2022 DAYNA ORR, Provider : ALIYA YOUNG LACE WINDER 1,[id number], Status: Pen, Time: 10:00 AM Mayra Navarrete Work Phone: [facility] DO Work Phone: Start: 10-28-2022 Patient encounter procedure Mayra Navarrete Work Phone: [facility] DO Work Phone: Start: 10-28-[address] [facility] Start: 10-27-2022 End: 10-27-2022 ambulatory [facility] Start: 10-27-2022 Telephone encounter Mayra Navarrete Work Phone: [facility] DO Work Phone: Start: 10-25-2022 End: 10-26-2022 ambulatory KWADWO CRUMP Facility:[facility] Start: 08-25-2022 End: 08-25-2022 ambulatory LUIS DANIEL BRUNNER [facility] Start: 06-20-2022 End: 06-21-[address] MAYRA NAVARRETE . Facility:[facility] Start: 03-11-2022 End: 03-12-[address] MAYRA NAVARRETE . Facility:[facility] Start: 01-25-2022 Rx Renewal Mayra Navarrete Work Phone: [facility] 600 DO Work Phone: Start: 12-30-2021 Chart Update Mayra Navarrete Work Phone: [facility] 250 DO Work Phone: Start: 12-28-2021 Office outpatient vi sit 25 minutes Mayra Navarrete Work Phone: [facility] 250 DO Work Phone: Start: 12-28-2021 Patient encounter procedure Marya Navarrete Work Phone: [facility] 250 DO Work Phone: Start: 12-28-[address] Mayra Navarrete Facility: Start: 12-08-2021 Office outpatient vi sit 25 minutes Mayra Navarrete Work Phone: [facility] 250 DO Work Phone: Start: 12-08-[address] Mayra Navarrete Facility: Start: 11-25-2021 End: 11-26-[address] MAYRA NAVARRETE . Facility: Start: 11-24-2021 End: 11-25-[address] MAYRA NAVARRETE . Facility:H1 Procedures Date Procedure Procedure Detail Performing Clinician Start: 06-20-[address] MAYRA NAVARRETE . Comment on above: Performed By: #### GIPANEL #### [facility] [address] [place] [address] Dr. Layla Barrera Start: 04-09-2014 right knee arthroscopy Nguyễn VELA Start: 02-25-2003 Cystoscopic removal of ureteric stent Nguyễn VELA Arthroscopic knee operation Nguyễn VELA Comment on above: left Arthroscopy of knee Mayra M Hoy Work Phone: Comment on above: (Therapeutic) Bilateral; Cardiac catheterization Ruben las M Hoy Work Phone: Colonoscopy Nguyễn VELA Comment on above: many Cystoscopy Nguyễn VELA Elbow joint operations Dougl as M Homichelle Work Phone: Comment on above: Left; Esophagogastroduodenoscopy P apple VELA Excision of basal cell carcinoma Mayra M Hoy Work Phone: Excision of mass of breast Jesse LILLY Extracorporeal shock wave lithotripsy of calculus of kidney Nguyễn VELA heart catheterization Krish VELA Hemorrhoidectomy Nguynễ GOLDEN History of repair of musculotendinous cuff of shoulder Nguyễn VELA Comment on above: left Operation on nose Mayra M Hoy Work Phone: Prostate Surgery Nguyễn GOLDEN Renal lithotripsy Mayra M Sunnyy Work Phone: Repair of elbow Nguyễn HERRMANN RS Comment on above: left Repair of musculoten dinous cuff of shoulder Mayra M Hoy Work Phone: Comment on above: Left; Shoulder Surgery Nguyễn JOSEPH ERS Total colonoscopy Mayra M Hoy Work Phone: Comment on above: 10Jul2017; Plan of Treatment Date Care Activity Detail Author Start: 12-06-2022 FUV, Provider: Johnnie Deras, Status: Pen, Time: 10:00 AM FUV, Provider: Johnnie Deras, Status: Pen, Time: 10:00 AM [facility] 250 DO Work Phone: Start: 11-24-2022 FUV, Provider: Johnnie Deras, Status: Pen, Time: 2:00 PM FUV, Provider: Johnnie Deras, Status: Pen, Time: 2:00 PM [facility] 250 DO Work Phone: Start: 12-28-2021 FUV, Provider: Johnnie Deras, Status: Pen, Time: 9:45 AM FUV, Provider: Johnnie Deras, Status: Pen, Time: 9:45 AM [facility] 250 DO Work Phone: Start: 12-22-2021 REST ONLY, Provider: SABINE HHVI NUCLEAR 01,[id number], Status: Pen, Time: 8:00 AM REST ONLY, Provider: SABINE HHVI NUCLEAR 01,[id number], Status: Pen, Time: 8:00 AM [facility] 250 DO Work Phone: Start: 12-21-2021 STRESSNUC2, Provider : SABINE HHVI NUCLEAR 01,[id number], Status: Pen, Time: 8:00 AM STRESSNUC2, Provider: SABINE HHVI NUCLEAR 01,[id number], Status: Pen, Time: 8:00 AM [facility] 250 DO Work Phone: Immunizations Immunization Date Immunization Notes Care Provider Rachele torres 07-26-2022 Fluad Quadrivalent 0 .5 ML Intramuscular Prefilled Syringe Mayra Navarrete [facility] Phone: [facility] Work Phone: 07-26-2022 influenza virus vaccine, unspecified formulation Nguyễn VELA [facility] 11-17-2021 Comirnaty 30 MCG/0.3 ML Intramuscular Suspension Mayra Navarrete Work Phone: [facility] 250 DO Work Phone: 11-17-2021 SARS-CoV-2 mRNA (xavrvzfyybo-bhxs-iwkna se) vaccine Nguyễn VELA [facility] 05-20-2021 Pfizer-BioNTech COVID-19 Vacc 30 MCG/0.3ML Intramuscular Suspension Mayra Navarrete Work Phone: [facility] Comment on above: Result Comment: 2022: [id number] 11-17-2020 SARS-CoV-2 (COVID-19 ) mRNA BNT-162b2 vax Nguyễn VELA [facility] 10-29-2020 Pfizer-BioNTech COVID-19 Vacc 30 MCG/0.3ML Intramuscular Suspension Mayra Navarrete Work Phone: [facility] Comment on above: Result Comment: 2022: [id number] 10-27-2020 SARS-CoV-2 (COVID-19 ) mRNA BNT-162b2 vax Nguyễn VELA [facility] 10-06-2020 Pfizer-BioNTech COVID-19 Vacc 30 MCG/0.3ML Intramuscular Suspension Mayra Navarrete Work Phone: [facility] Comment on above: Result Comment: 2022: [id number] 04-23-2020 influenza virus vaccine, unspecified formulation Nguyễn VELA [facility] 04-23-2020 influenza, high dose seasonal, preservative-free Mayra Navarrete Work Phone: [facility] 250 DO Work Phone: 04-09-2018 influenza virus vaccine, unspecified formulation Mayra Navarrete Work Phone: [facility] DO Work Phone: 07-10-2017 pneumococcal polysaccharide vaccine, 23 valent Mayra M Hoy Work Phone: [facility] 250 DO Work Phone: 04-09-2016 influenza virus vaccine, unspecified formulation Mayra M Hoy Work Phone: [facility] 250 DO Work Phone: 04-09-2016 pneumococcal conjuga te vaccine, 13 valent Mayra M Hoy Work Phone: [facility] 250 DO Work Phone: 04-22-2015 influenza virus vaccine, unspecified formulation Nguyễnmaranda VELA [facility] 04-22-2015 influenza, injectabl e, quadrivalent, contains preservative Mayra M Hoy Work Phone: [facility] 250 DO Work Phone: 04-09-2015 influenza virus vaccine, unspecified formulation Mayra M Hoy Work Phone: [facility] 250 DO Work Phone: 05-22-2014 influenza virus vaccine, unspecified formulation Nguyễn VELA [facility] 05-22-2014 influenza, injectabl e, quadrivalent, contains preservative Mayra M Hoy Work Phone: [facility] 250 DO Work Phone: 07-10-2012 influenza virus vaccine, unspecified formulation Mayra M Hoy Work Phone: [facility] 250 DO Work Phone: 07-10-2011 pneumococcal polysaccharide vaccine, 23 valent Mayra M Hoy Work Phone: [facility] 250 DO Work Phone: influenza virus vaccine, unspecified formulation Mayra M Hoy Work Phone: -[facility] 250 DO Work Phone: Comment on above: 2011 NEGATED: Highlighted row has not occurred!07-18-2023 influenza virus vaccine, unspecified formulation Wade LILLY [facility] [place] Payers Date Payer Category Payer Self-pay [id number] 1958 Medicare [id number] 1958 Private Health Insurance [id number] 1940 Unknown [id number] 2.16. [id number] 1941 Unknown [id number] 2.16. [id number] 1941 Unknown [id number] 2.16. [id number] 1941 Unknown [id number] 2.16.84 0.1.631730.3.579.2.593 1941 Unknown [id number] 2.16.84 0.1.027246.3.579.2.593 1941 Unknown [id number] 2.16.84 0.1.128144.3.579.2.593 1941 Unknown [id number] 2.16.84 0.1.112015.3.579.2.593 1941 Unknown [id number] 2.16.84 0.1.991996.3.579.2.593 1941 Unknown [id number] 2.16.8 40.1.072640.3.579.2.754 1941 Unknown [id number] 2.16.8 40.1.163664.3.579.2.754 1941 Unknown [id number] 2.16.84 0.1.119780.3.579.2.1259 1941 Unknown [id number] 2.16.8 40.1.285008.3.579.2.727 1941 Unknown [id number] 2.16.8 40.1.682368.3.579.2.727 1941 Unknown [id number] 2.16.8 40.1.861656.3.579.2.727 1941 Unknown [id number] 2.16.8 40.1.919465.3.579.2.727 1941 Unknown [id number] 2.16.8 40.1.393884.3.579.2.727 Medicare [id number] Unknown Unknown [id number] Unknown [id number] 2.16.8 40.1.573098.3.579.2.531 Social History Date Type Detail Facility Caffeine use Caffeine use [place] [address] DO Work Phone: Comment on above: Coffee: 1 cup dailyS ac- Occasionally; Quit: 1991; Start: 05-31-2019 End: 03-20-2023 Tobacco smoking status Ex-smoker (finding) [facility] Tobacco smoking status Never [facility] Sex Assigned At Male [facility] Start: 1940 Sex Assigned At Male F [facility] Functional Status Date Assessment Result Facility 07-18-2023 Functional Status N/A [facility] [place] 03-20-2023 Functional Status N/A [facility] Clinical Notes 08-25-2022 to 08-17-2023 Note Date & Type Note Facility 08-17-2023 Note Attestation signed by Luis Daniel Brunner MD at 08/18/2023 10:03 AM As the teaching physician, I have personally performed or re-performed the history of present illness, physical exam and medical decision making activities of the encounter and verified the medical student's documentation. I made pertinent changes as necessary to ensure accurate documentation. Subjective Patient ID: Travis Coburn is a 82 y.o. male who presents for Follow-up (6 mo follow up). HPI Mr. Travis Coburn is a 81 y.o. male with OA, CTS, Polymyalgia Rheumatica and Psoriatic Arthritis who presents today for routine follow-up. He has been on 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 4 tablets weekly as well as prednisone 2.5 mg daily. His prescription for 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 is for 5 tablets but he has only been taking 4 for the last few months. He is also only take 5mg daily of prednisone instead of the prescribed 7.5 mg. Today the patient reports that he is having trouble with his eyes as of lately. He notes some nvwm-kw-ozzdwshr blurriness to his vision that comes and goes. He states this started prior to even last seeing his laborer/key man. He notes he last saw his laborer/key man about 5-6 months ago and all was well at that point. He believes it might be aggravated when he gets sinusitis. He notes he just saw Dr. Thompson with nephrology and is having lab testing done to monitor his kidney function. He has always discontinued his diuretic per his PCP since around 2022. Last creatinine on June 08, was 1.96. He has a history of mouth sores but denies any today and denies any recent UTIs as he has a history of recurrent UTIs. Review of Systems Constitutional: Negative for appetite change, chills and fatigue. HENT: Negative for mouth sores. Respiratory: Negative for cough and shortness of breath. Cardiovascular: Negative for chest pain. Gastrointestinal: Negative for diarrhea, nausea and vomiting. Musculoskeletal: Positive for arthralgias. Negative for back pain and joint swelling. Psychiatric/Behavioral: Negative for agitation. The patient is not nervous/anxious. Objective Visit Vitals BP 129/74 (BP Location: Left arm, Patient Position: Sitting) Pulse 80 Ht 1.753 m (5' 9 ) Wt 109 kg (241 lb) BMI 35.59 kg/m??? Smoking Status Former BSA 2.3 m??? Physical Exam Vitals reviewed. Constitutional: Appearance: [...] Rheumatica and Psoriatic Arthritis currently on 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 4 tablets weekly and prednisone 5 mg daily and leucovorin. He has a history of urinary tract infections and a E. Coli GI infection with bacterial overgrowth. Plan: - Continue 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 4 tablets and prednisone 5 mg daily and leucovorin 5 mg. - refill prednisone sent today - routine CBC and CMP ordered today - He was reminded of the potential risk and benefit of 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 including chance of infection nausea hair loss oral ulcers or liver toxicity bone marrow toxicity etc. and the need to have regular laboratory monitoring for potential 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 toxicity/side effect. Also we discussed the potential use of IL-6 inhibitor to control symptoms of polymyalgia rheumatica and allow him to be completely off steroids. - Risks and benefits of 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 were discussed including but not limited to increased chance for infection, nausea, hair loss, oral ulcers, liver toxicity, bone marrow toxicity, etc. The patient was counseled to limit alcohol use. The need for regular lab monitoring for potential 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 toxicity/side effects was discussed with the patient. Follow-up in 6 months Patient seen by Gumaro Butler MS4 and Dr. Brunner [facility] 08-16-2023 Note Attestation signed by Too Thompson MD at 08/19/2023 9:50 PM I saw, interviewed, examined and evaluated the patient with Nephrology fellow Dr. Faith Matias. I participated in the medical management of the patient. I reviewed the fellow's note and agree with the fellow's documentation in the note. Too Thompson MD Faculty, Division of Nephrology, Department of Medicine, [facility]. [facility] Patient: Travis Coburn; 82 y.o. Visit date: 08/16/23 Reason for today's visit: New patient, new Acute kidney injury SUBJECTIVE: BACKGROUND: Travis Coburn is a 82 y.o. male has a past medical history of Diabetes mellitus ([facility]), Hypertension, Polymyalgia rheumatica ([facility]), and Psoriatic arthritis ([facility]). Patient has history of Type II diabetes on oral hypoglycemic agents (Glyburide) for several years, hba1c reportedly has been around 6-7%. No diabetic retinopathy and he follows with ophthalmology regularly No history of CKD. Patient reported taking Motrin every day for around 2 months after he had lower back surgery following a fall and spinal fracture at the end of March 2023. Before that serum creatinine has been around 1.0 but after that it went up to 1.96 early in May. Then he stopped using Motrin and in mid June creatinine went down to 1.4 History of kidney stones, required Lithotripsy twice and one time required a ureteral stent. Last stone was several years ago. Some UTIs in the past. No prostate problems or obstructive symptoms No family history of kidney disease Today 08/16/23 patient presents as a new patient to establish care: Patient without symptoms or concerns. Off NSAIDs. On lasix 20 mg only TWICE A WEEK. On irbesartan 300 mg once daily. He stopped hydrochlorothiazide On Protonix every day for many years. No diarrhea or constipation. No dyspnea on exertion. No fatigue or lack of energy. No leg swelling or edema. No changes in appetite or weight. No dizziness or lightheadedness on standing or walking. Blood pressure & heart rate: Visit Vitals BP 161/88 (BP Location: Left arm, Patient Position: Sitting, BP Cuff Size: Large adult) Pulse 87 Resp 16 On irbesartan 300 mg once daily Pertinent labs/images: See Assessment & Plan -- Review of systems In addition to above: Review of Systems Constitutional: Negative for activity change, appetite change, fatigue and unexpected weight change. HENT: Negative for congestion, facial swelling and trouble swallowing. Eyes: Negative for photophobia and visual disturbance. Respiratory: Negative for cough and shortness of breath. Cardiovascular: Negative for chest pain, palpitations and leg swelling. Gastrointestinal: Negative for abdominal distention, abdominal pain, constipation, diarrhea, rectal pain and vomiting. Endocrine: Negative for polydipsia, polyphagia and polyuria. Genitourinary: Negative for decreased urine volume, difficulty urinating, dysuria, flank pain, frequency, hematuria, scrotal swelling and urgency. Musculoskeletal: Negative for arthralgias, joint swelling and myalgias. Skin: Negative for color change, rash and wound. Allergic/Immunologic: Negative for immunocompromised state. Neurological: Negative for dizziness, tremors, speech difficulty, weakness, numbness and headaches. Psychiatric/Behavioral: Negative for dysphoric mood and sleep disturbance. The patient is not nervous/anxious. OBJECTIVE: Visit Vitals BP 161/88 (BP Location: Left arm, Patient Position: Sitting, BP Cuff Size: Large adult) Pulse 87 Resp 16 Ht 1.753 m (5' 9 ) Wt 109 kg (241 lb 3.2 oz) BMI 35.62 kg/m??? Smoking Status Former BSA 2.3 m??? Physical Exam Constitutional: General: He is not in acute distress. Appearance: Normal appearance. HENT: Head: Normocephalic and atraumatic. Eyes: General: No scleral icterus. Extraocular Movements: Extraocular movements intact. Cardiovascular: Rate and Rhythm: Normal rate and regular rhythm. Heart sounds: No murmur heard. Pulmonary: Breath sounds: Normal breath sounds. No wheezing or rales. Abdominal: General: There is no distension. Tenderness: There is no abdominal tenderness. There is no right CVA tenderness or left CVA tenderness. Musculoskeletal: General: No tenderness. Normal range of motion. Cervical back: Neck supple. No tenderness. Right lower leg: No edema. Left lower leg: No edema. Lymphadenopathy: Cervical: No cervical adenopathy. Skin: Coloration: Skin is not jaundiced or pale. Findings: No erythema, lesion or rash. Neurological: General: No focal deficit present. Mental Status: He is alert and oriented to pe (more content not included)... [facility] 07-18-2023 Note Chief Complaint consultation for skin lesion HPI Staff 82 year old male presents on consultation from Dr. Navarrete for right posterior calf skin lesion. Reports approximately 5 month history of non healing skin lesion. Reports some tenderness. Denies bleeding or drainage. History of Present Illness 82 yo male with h/o htn, hyperlipidemia, DMII, polymyalgia rheumatica, referred for nonhealing lesion right posterior thigh; present for 5 months; scabs over, but won't heal, no pain or increase in size, no h/o skin changer; no drainage; on baby asa, no NSAIDs; no tobacco use. Review of Systems PHQ Score Initial Depression Screen Score: 0 SCORE ROS - Provider Constitutional: no fever, no sweats, no weight loss. Eyes: no glasses, no blurred vision, no visual loss. ENMT: no dentures, no hoarseness, no swallowing difficulties, no hearing loss, no ear infection(s), no nose bleeds. Cardiovascular: normal blood pressure, no chest pain, regular heartbeat, no heart murmur. Respiratory: no shortness of breath, no cough, no asthma, no wheezing. Gastrointestinal: no nausea, no vomiting, no diarrhea, no constipation, no blood in stool, no change in bowel habits, no abdominal pain, no hepatitis. Genitourinary: no kidney stones, no urine infection, no dysuria. Musculoskeletal: no pain, no weakness. Skin: no changing moles, no rash, yes skin lumps. Neurologic: no seizures, no epilepsy, no headache. Psychiatric: no emotional or psychiatric problem. Heme/Lymph: no bleeding problems, no anemia, no blood clots, no transfusions. Allergy/Immunologic: no swollen lymph nodes/glands, no IV drug abuse. Other: Additional ROS info: Except as noted in the above Review of Systems and in the History of Present Illness, all other systems have been reviewed and are negative or noncontributory. Physical Exam Vitals & Measurements HR: 92(Peripheral) RR: 16 BP: 138/88 HT: 69 in HT: 175 cm WT: 108 kg WT: 237.6 lb BMI: 35.27 HEENT: normal conjunctiva, sclera clear, no scleral icterus, EOM intact, PERRLA, oral mucosa moist without lesions Musculoskeletal: normal gait, digits and nails without infection, nodes, cyanosis, clubbing. Skin: no rashes, right posterior thigh with 1 cm raised, firm lesion with central scab, no bleeding or drainage, nontender; no ulcers, no subcutaneous nodules, induration. Psychiatric/Neuro: oriented to time, place, person, judgement normal, affect appropriate for age, insight intact, no focal deficits. Tests: review of old records completed , Discussed surgical options, risks, and possible complications with patient. Assessment/Plan 1. Neoplasm of uncertain behavior of skin of lower extremity (D48.5: Neoplasm of uncertain behavior of skin) plan excisional biopsy under local anesthesia in the office for definitive diagnosis and treatment; informed consent obtained. Follow-up No qualifying data available Problem List/Past Medical History Ongoing Abnormal biliary HIDA scan Abnormal gallbladder ultrasound Anxiety BMI 35.0-35.9,adult BPH with urinary obstruction Diabetes Former smoker Gastroesophageal reflux Hepatic steatosis Hiatal hernia History of Helicobacter pylori infection History of kidney stones HTN (hypertension) Hypertriglyceridemia Impotence Kidney stones Migraine Neoplasm of uncertain behavior of skin of lower extremity Neuropathy Nocturia Obesity 09-JAN-2014 12:37:00<$> Polymyalgia rheumatica Prostatitis Psoriasis Psoriatic arthritis Sinus arrhythmia Sleep apnea Urinary frequency Urinary urgency Vitamin B 12 deficiency Vitamin D deficiency Weight loss Historical Epigastric pain Loss of appetite Nausea with vomiting Procedure/Surgical History right knee arthroscopy (04/09/2014), Cystoscopic removal of ureteric stent (02/25/2003), Arthroscopic knee operation, Colonoscopy, Cystoscopy, Cystoscopy, Esophagogastroduodenoscopy, ESWL - Extracorporeal shockwave lithotripsy for renal calculus, Excision of breast mass, H/O repair of rotator cuff..., heart catheterization, Hemorrhoidectomy, Prostate Surgery, Repair of elbow, Shoulder Surgery. Medications amitriptyline 50 mg Tab, 50 mg= 1 tab(s), Oral, Once a day (at bedtime) aspirin, 81 mg, Oral, Daily Folate 1 mg Tab glimepiride 1 mg Tab, 1 mg= 1 tab(s), Oral, Daily hydrochlorothiazide-irbesartan 12.5 mg-300 mg Tab, 1 tab(s), Oral, Daily Lasix, 20 mg, Oral, Daily 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 5 mg oral tablet, 20 mg= 4 tab(s), Oral, qWeek MiraLax, 17 gm, Oral, Daily oxybutynin 5 mg ER Tab, 5 mg= 1 tab(s), Oral, Bedtime, 8 refills predniSONE 2.5 mg oral tablet, 5 mg= 2 tab(s), Oral, Daily Protonix, 40 mg, Oral, Daily rosuvastatin 5 mg Tab Vitamin D3, Oral, Daily Allergies Latex (Unknown) penicillins (Anaphylaxis) sulfa drugs Social History Alcohol - Denies Alcohol Use, 03/26/2014 Substance Abuse - Denies Substance Abuse, 03/26/2014 Tobacco - Denies Tobacco Use, 03/26/2014 Former smoker, quit more (more content not included)... [facility] Comment on above: Result Comment: Elec tronically Signed By: MAXX TURNER, Wade Steele\Date and Time Signed: 07/18/23 14:37 EST 06-09-2023 Note TC to patient notifi ed of nephrology referral has been sent. NS [facility] 06-09-2023 Note Pt called needing a referral for nephrology. Pt states he would like to set up an appointment in [place], discussed in telephone call with you. [facility] 03-20-2023 Hospital Discharge instructions Patient Education 03/20/2023 [...] urethra. Follow these instructions at home: Take sfmh-ape-mzljoeh and prescription medicines only as told by [...] provider. Document Revised: 01/12/2022 Document Reviewed: 01/12/2022 [employer] Patient Education 2022 Yatra. Follow Up Care 08/23/2021 11:50:10 With:MIRIAN TURNER, Nguyễn Peter, URL Address: [facility] [address] [place] [address] [phone] When:Within 6 Month(s) [facility] [place] 02-23-2023 Note Attestation signed by Luis Daniel [...] Follow-up in 3 months Keerthi Razo, MS4 [facility] 10-27-2022 Note Subjective Patient ID: Travis Coburn [...] past 36 hour(s)). No follow-ups on file. [facility] 08-25-2022 Note BEEN OFF HUMIRA FOR 3 MONTHS [facility] 08-25-2022 Note Attestation signed by Luis Daniel [...] all orders for this visit: Psoriatic arthropathy ([facility]) PMR (polymyalgia rheumatica) ([facility]) jail 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 High risk medication use Polyarthropathy Primary osteoarthritis, unspecified site Polymyalgia rheumatica ([facility]) 81 yo M who is here for [...] MD Family Medicine PGY-1 08/25/22 11:[address] [facility] Evaluation + Plan note Future Appointments Appointment Date:09/18/2023 12:45:00 PM Scheduled Provider:Nguyễn VELA MD Location:[facility] Appointment Type:URO Office Visit [facility] Evaluation + Plan note Future Appointments Appointment Date:08/22/2023 01:40:00 PM Scheduled Provider:Wade LILLY MD Location[facility] Appointment Type: Procedure 30 Appointment Date:09/18/2023 12:45:00 PM Scheduled Provider:Nguyễn VELA MD [facility] Appointment Type:URO Office Visit General Surgery [place] Evaluation + Plan note Future Appointments Appointment Date:09/01/2023 01:40:00 PM Scheduled Provider:Wade LILLY MD [facility] Appointment Type: Established 15 Appointment Date:09/18/2023 12:45:00 PM Scheduled Provider:Nguyễn VELA MD Location[facility] Appointment Type:URO Office Visit General Surgery [place] Evaluation note No assessment inform ation available [facility] Work Phone: History of Present illness Narrative [...] will be reviewed at his next visit. [email or web address] Work Phone: History of Present illness [...] will be reviewed at his next visit. [facility] Work Phone: History of Present [...] and will attempt to implement our recommendations. [facility] Trunkbow DO Work Phone: Hospital course Narrative No data available for this section [facility] Hospital Discharge instructions No data available for this section General Surgery [employer] Progress note No data available for this section [facility] Summary Purpose Family History No Family [...] history of hypertensi on: Mother(V17.49, Z82.49) Status:Active Relationship Condition Age at Onset Recorded Date/T deidra father Myocardial infarction Unknown Not Specified Alzheimer's disease Unknown sister Systemic sclerosis Unknown sister Transient ischemic attack Unknown sister Osteoarthritis Unknown Advance Directives No Advanced Directives Records Found Advance Directive Response Recorded Date/ Time Advance Directives No September 08 18 11:54am Chief Complaint TRAVIS COBURN is being seen for an annual follow-up of dizziness and sent back by Hypotension, Bradycardia.TRAVIS ALMAS is being seen for an annual follow-up [...] section and content) DATE CREATED AUTHOR 11/30/2021 [facility] DATE CREATED AUTHOR AUTHOR'S ORGANIZ ATION 12/31/2021 [facility] DATE CREATED AUTHOR AUTHOR'S ORGANIZ ATION 01/01/2022 [employer] DATE CREATED AUTHOR AUTHOR'S ORGANIZ ATION 10/29/2022 [facility] DATE CREATED AUTHOR AUTHOR'S ORGANIZ ATION 10/30/2022 [facility] DATE CREATED AUTHOR AUTHOR'S ORGANIZ ATION 04/12/2023 [facility] DATE CREATED AUTHOR AUTHOR'S ORGANIZ ATION 04/14/2023 [facility] DATE CREATED AUTHOR AUTHOR'S ORGANIZ ATION 07/21/2023 [facility] DATE CREATED AUTHOR AUTHOR'S ORGANIZ ATION 08/21/2023 [facility] DATE CREATED AUTHOR AUTHOR'S ORGANIZ ATION 08/24/2023 [facility] DATE CREATED AUTHOR AUTHOR'S ORGANIZ ATION 08/25/2023 [facility] Reason for Visit (unrecogniz ed section and content) Reason for Visit:Holter Lori tor:TRAVIS is here for the application of a 24 hour Holter monitor.Ordering Physician: Dr. Johnnie Deras, MICHELLEiagnosis: bradyNO equipment agreement signed. TRAVIS understands monitor is to be returned on: 10/31/2022Monitor number [id number] applied.Reason for Visit:Holter Monitor:TRAVIS is here for the application of a 24 hour Holter monitor.Ordering Physician: Dr. Johnnie Deras, MICHELLEiagnosis: bradyNO equipment agreement signed. TRAVIS understands monitor is to be returned on: 10/31/2022Monitor number [id number] applied.Holter monitor returned and downloaded.Holter monitor printed and placed on Dr. Naomi Hood MD desk to dictate in Dr. Johnnie Deras MD absenceReason for Visit:Holter Monitor:TRAVIS is here for the application of a 24 hour Holter monitor.Ordering Physician: Dr. Johnnie Deras, MDDiagnosis: bradyNO equipment agreement signed. TRAVIS understands monitor is to be returned on: 10/31/2022Monitor number [id number] applied.Holter monitor returned and downloaded.Holter monitor printed and placed on Dr. Naomi Hood MD desk to dictate in Dr. Johnnie Deras MD absence Patient Care team informatio n (unrecognized section and content) Team Status: Active Member Role Status Dates Mayra Navarrete MD Primary Care Provider Active Team Status: Inactive Member Role Status Dates Mayra Navarrete MD Primary Care Provider Active Start: August 22, 2023 End: August 22, 2023 Wade Lilly MD [facility] Attending Provider Active Start: August 22, 2023 End: August 22, 2023 Goals (unrecognized section and content) Goals may be documented in a n alternate section FOR RECORDS PERTAINING TO PATIENTS WHO ARE [...] BE BASED ON THE PRIMARY CLINICAL RECORDS. [email or web address] provides no warranty or guarantee of the accuracy or completeness of information in this document.
--- OUTSIDE RECORDS SUMMARY | 2023-08-25 12:34 | XMS_ITS | CCD ---
Author Name Unknown Address [address] [place] [address] [facility] Care Team Providers Care Tableau Report Developer Name Role Phone Mayra Navarrete Unavailable Unavailable [...] Unavailable HOY ., DR NUNEZ Consulting Unavailable SPRING BRANCH, DR CJ Hernandes Consulting Unavailable HOY ., DR NUNEZ Admitting Unavailable HOY ., DR NUNEZ Attending Unavailable [facility]IVAS Primary Care Unavailable LANDON ., DR NUNEZ Consulting Unavailable KWADWO CRUMP Admitting Unavailable KWADWO CRUMP Attending Unavailable LANDON ., DR NUNEZ Primary Care Unavailable KWADWO CRUMP Consulting Unavailable Mayra Navarrete Primary Care Physician [phone] MICHELLE BARRY Attending Unavailable MICHELLE BARRY Admitting Unavailable MAYRA NAVARRETE Primary Care Unavailable MAYRA NAVARRETE Primary Care Unavailable RADHA EARL Attending Unavailable LUIS DANIEL BRUNNER Attending Unavailable LUIS DANIEL BRUNNER Attending Unavailable TOO THOMPSON Attending Unavailable LUIS DANIEL BRUNNER Referring Unavailable LUIS DANIEL BRUNNER Attending Unavailable LUIS DANIEL BRUNNER Attending Unavailable MD Mayra Navarrete Primary Care Provider [phone] MD Wade Lilly Attending Provider [phone] Nguyễn VELA Attending Unavailable Wade LILLY Attending Unavailable Wade LILLY Attending Unavailable Mayra Navarrete Referring Unavailable Wade LILLY Attending Unavailable Nguyễn VELA Attending Unavailable Mayra Navarrete Primary Care Unavailable Wade Lilly Attending Unavailable Wade Lilly Admitting Unavailable Allergies Allergy Classification Reported Allergen(s) Allergy Type Date of Onset Reaction(s) Facility (11 sources) bee pollen [facility]: (17 sources) Penicillins; 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: [Penicillins] Allergy to drug (finding) 9 Anaphylaxis (disorder) [facility] (11 sources) Animal dander - Cats [facility] Work Phone: (1 source) Penicillins Drug allergy (disorder) [facility] Repository (5 sources) Latex; 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: [LATEX] Drug allergy 2 Unknown (qualifier value) [facility] (3 sources) Sulfonamides (Antibiotic); 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: [sulfa drugs] Propensity to adverse reactions to drug [facility] [place] (3 sources) Sulfonamides (Antibiotic); 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: [SULFA (SULFONAMIDE ANTIBIOTICS)] Propensity to adverse reactions to drug (disorder) 9 Anaphylaxis [facility] Repository (2 sources) penciclovir; 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: [penciclovir] Drug Allergy 1 anaphylaxis [facility] (1 source) Penicillins Drug allergy (disorder) 9 [facility] Repository Medications Current Medications Medication Drug [...] oral tablet (3 sources) Angiotensin 2 Receptor Sappihre Start: 05-30-2019 irbesartan 300 mg Tab Refills(s) [...] 06/29/18 Status: Ordered take 2 tablets by [facility] once daily metFORMIN HCl - 500 MG [...] Takes on Monday take 4 tablets by [facility] every week Methotrexate 2.5 MG Oral Tablet TAKE 4 TABLETS WEEKLY. Quantity: 0 Refills: 0 Ordered: 28-Dec-2021 DO Active take 1 tablet by [facility] every week Methotrexate Sodium 2.5 MG Oral Tablet TAKE 1 TABLET WEEKLY. 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] Onset: 2 Past or Other Problems Problem Classification Problem Date Documented Da te Episodic/Chronic Other aftercare (2 sources) Other assisted (current) drug therapy; 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: [Other 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 Normal [facility] Comment on above: Result Comment: Elec tronically Signed By: MAXX TURNER, Wade Steele\Date and Time Signed: 08/22/23 14:34 EST [place] 08-22-2023 L Specimen: [id number] Received: 08/23/23 Status: JUAN LUIS Carty Num: [id number] Spec Type: Surgical Subm Dr: Wade Lilly MD FACS Tissues: A Skin-Other than Cyst, tag, debridement or plastic repair (RT POST CALF) Procedures: HE/3, Gross/Micro L4 Age/ Patient Sex Location Account Attending Physician Travis Coburn 82/M LABELL [id number] Wade Lilly MD FACS SPEC NUM: [id number] RECD: 08/23/23 STATUS: JUAN LUIS CARTY NUM: [id number] APRIL: 08/22/23- SUBM DR: Wade Lilly MD FACS ENTERED: 08/23/23 [facility] DR: Artur Al SPEC TYPE: Surgical DEPT: NICOLA TENA ENTERED BY: [id number] RECV BY: [id number] ORDERED: HE/3, Gross/Micro L4 ORDERED: HE/3, Gross/Micro [...] an unknown oriented 1.8 x 0.8 cm cunningham-hwittaker skin excision with a depth of 0.1 cm. On the skin surface is a pale 0.8 x 0.8 cm cunningham-whittaker centrally ulcerated papule which abuts the long edges of excision. The margin is inked green. Entirely submitted in 3 cassettes as follows: A1 - Tips A2-A3 - Remainder CPT Codes 73888 -------- -------- Specimen: [id number] Received: 08/23/23 Status: JUAN LUIS Carty Num: [id number] Spec Type: Surgical Subm Dr: Wade Lilly MD FACS Tissues: A Skin-Other than Cyst, tag, debridement or plastic repair (RT POST CALF) Procedures: HE/3, Gross/Micro L4 -------- Patient: Travis Coburn [id number] (Continued) -------- Signed (signature on file) Joon Bermudez MD 08/24/232206 Normal [facility] CBC WITH AUTO DIFFERENTIALon 08-17-2023 Basophils (Bld) [#/Vol] 0.04 10*3/uL Normal 0.00-0.20 [facility] Comment on above: Performed By: #### L [id number] ####[facility] ([facility])[address] [place] [address] Basophils/100 WBC (Bld) 0.6 % Normal 0.0-1.0 [facility] Comment on above: Performed By: #### L [id number] ####[facility] ([facility])[address] [place] [address] Eosinophils (Bld) [#/Vol] 0.12 10*3/uL Normal 0.00-0.50 [facility] Comment on above: Performed By: #### L [id number] ####[facility] ([facility])[address] [place] [address] Eosinophils/100 WBC (Bld) 1.8 % Normal 0.0-6.0 [facility] Comment on above: Performed By: #### L [id number] ####[facility] ([facility])[address] [place] [address] Erythrocyte distribution width (RBC) [Ratio] 13.9 % Normal 11.5-15.0 [facility] Comment on above: Performed By: #### L [id number] ####[facility] ([facility])[address] [place] [address] ERYTHROCYTE MEAN CORPUSCULAR HEMOGLOBIN CONCENTRATION (G/DL) BY AUTOMATED 34.0 g/dL Normal 32.0-35.0 [facility] Comment on above: Performed By: #### L [id number] ####[facility] ([facility])[address] [place] [address] Hematocrit (Bld) [Volume fraction] 42.0 % Normal 39.0-55.0 [facility] Comment on above: Performed By: #### L [id number] ####[facility] ([facility])[address] [place] [address] Hemoglobin (Bld) [Mass/Vol] 14.3 g/dL Normal 13.0-17.0 [facility] Comment on above: Performed By: #### L [id number] ####[facility] ([facility])[address] [place] [address] Immature granulocytes (Bld) [#/Vol] 0.04 10*3/uL Normal 0.00-0.20 [facility] Comment on above: Performed By: #### L [id number] ####[facility] ([facility])[address] [place] [address] Immature granulocytes/100 WBC (Bld) 0.6 % Normal 0.0-1.0 [facility] Comment on above: Performed By: #### L [id number] ####[facility] ([facility])[address] [place] [address] Lymphocytes (Bld) [#/Vol] 1.67 10*3/uL Normal 1.20-4.00 [facility] Comment on above: Performed By: #### L [id number] ####[facility] ([facility])[address] [place] [address] Lymphocytes/100 WBC (Bld) 25.6 % Normal 20.0-45.0 [facility] Comment on above: Performed By: #### L [id number] ####[facility] ([facility])[address] [place] [address] MCH (RBC) [Entitic mass] 31.9 pg Normal 27.0-33.0 [facility] Comment on above: Performed By: #### L [id number] ####[facility] ([facility])[address] [place] [address] MCV (RBC) [Entitic vol] 93.8 fL Normal 82.0-98.0 [facility] Comment on above: Performed By: #### L [id number] ####[facility] ([facility])[address] [place] [address] Monocytes (Bld) [#/Vol] 0.49 10*3/uL Normal 0.10-1.00 [facility] Comment on above: Performed By: #### L [id number] ####[facility] ([facility])[address] [place] [address] Monocytes/100 WBC (Bld) 7.5 % Normal 5.0-12.0 [facility] Comment on above: Performed By: #### L [id number] ####[facility] ([facility])[address] [place] [address] Neutrophils (Bld) [#/Vol] 4.17 10*3/uL Normal 1.60-7.60 [facility] Comment on above: Performed By: #### L [id number] ####[facility] ([facility])[address] [place] [address] Neutrophils/100 WBC (Bld) 63.9 % Normal 40.0-72.0 [facility] Comment on above: Performed By: #### L [id number] ####[facility] ([facility])[address] [place] [address] NRBC (PER 100 WBCS) BY AUTOMATED COUNT 0.0 % Normal 0 [facility] Comment on above: Performed By: #### L [id number] ####[facility] ([facility])[address] [place] [address] PLATELETS (10*3/UL) IN BLOOD AUTOMATED COUNT 186 10*3/uL Normal 150-400 [facility] Comment on above: Performed By: #### L [id number] ####[facility] ([facility])[address] [place] [address] RBC (Bld) [#/Vol] 4.48 10*6/uL Normal 4.20-5.70 [facility] Comment on above: Performed By: #### L [id number] ####[facility] ([facility])[address] [place] [address] WBC (Bld) [#/Vol] 6.53 10*3/uL Normal 4.00-10.60 [facility] Comment on above: Performed By: #### L [id number] ####[facility] ([facility] [place] [address] COMPREHENSIVE METABOLIC PANE [place] 08-17-2023 Albumin [Mass/Vol] 4.0 g/dL Normal 3.5-5.7 [facility] Comment on above: Performed By: #### L [id number] ####[facility] ([facility])[address] [place] [address] ALP [Catalytic activity/Vol] 98 U/L Normal 34-104 [facility] Comment on above: Performed By: #### L [id number] ####[facility] ([facility])[address] [place] [address] ALT [Catalytic activity/Vol] 25 U/L Normal 7-52 [facility] Comment on above: Performed By: #### L [id number] ####[facility] ([facility])[address] [place] [address] Anion gap [Moles/Vol] 12 mmol/L Normal 7-20 [facility] Comment on above: Performed By: #### L [id number] ####[facility] ([facility])[address] [place] [address] AST [Catalytic activity/Vol] 19 U/L Normal 13-39 [facility] Comment on above: Performed By: #### L [id number] ####[facility] ([facility])[address] [place] [address] Bilirubin [Mass/Vol] 0.5 mg/dL Normal 0.3-1.0 [facility] Comment on above: Performed By: #### L [id number] ####[facility] ([facility])[address] [place] [address] Calcium [Mass/Vol] 8.8 mg/dL Normal 8.6-10.3 [facility] Comment on above: Performed By: #### L [id number] ####[facility] ([facility])[address] [place] [address] Chloride [Moles/Vol] 102 mmol/L Normal 98-107 [facility] Comment on above: Performed By: #### L [id number] ####[facility] ([facility])[address] [place] [address] CO2 [Moles/Vol] 27 mmol/L Normal 21-31 [facility] Comment on above: Performed By: #### L [id number] ####[facility] ([facility])[address] [place] [address] Creatinine [Mass/Vol] 1.12 mg/dL Normal 0.70-1.30 [facility] Comment on above: Performed By: #### L [id number] ####[facility] ([facility])[address] [place] [address] GLOMERULAR FILTRATION RATE ML/MIN/1.73 SQ M.PREDICTED 66.0 mL/min/1.73m*2 Normal >60.0 [facility] Comment on above: Result Comment: The [facility]???s estimated glomerular filtration rate (eGFR) will [...] of individuals. Performed By: #### L [id number] ####[facility] ([facility])[address] [place] [address] Glucose [Mass/Vol] 95 mg/dL Normal 70-100 [facility] Comment on above: Performed By: #### L [id number] ####[facility] ([facility])[address] [place] [address] Potassium [Moles/Vol] 3.7 mmol/L Normal 3.5-5.1 [facility] Comment on above: Performed By: #### L [id number] ####[facility] ([facility])[address] [place] [address] Protein [Mass/Vol] 6.6 g/dL Normal 6.0-8.3 [facility] Comment on above: Performed By: #### L [id number] ####[facility] ([facility])[address] [place] [address] Sodium [Moles/Vol] 137 mmol/L Normal 136-145 [facility] Comment on above: Performed By: #### L [id number] ####[facility] ([facility])[address] [place] [address] Urea nitrogen [Mass/Vol] 16 mg/dL Normal 7-25 [facility] Comment on above: Performed By: #### L [id number] ####[facility] (BEJONNA)[address] [place] [address] UREA NITROGEN/CREATININ E (MASS RATIO) IN SER/PLAS 14.3 Normal [facility] Comment on above: Performed By: #### L [id number] ####[facility] ([facility])[address] [place] [address] Follow-Upon 08-17-2023 Follow-Up [id number] AlmasTravis Vicky 1940 M Date Provider Department Center 08/17/2023 LUIS DANIEL HAYNES [facility] RHEUM [facility] No family history on file Level of Service:24628 [place] OFFICE/OUTPATIENT ESTABLISHED MOD MDM 30 MIN Reason for Visit and Comments: Follow-up [840966] - 6 mo follow up [facility] Orders Onlyon 08-17-2023 Orders Only [id number] Travis Coburn 1940 M Date Provider Department Center 08/17/2023 JOON VAZQUEZ [facility] RHEUM [facility] No family history on file [facility] Office Visiton 08-16-2023 Follow-up visit [id number] Travis Coburn 1940 M Date Provider Department Center 08/16/2023 TOO BLOCK [facility] NEPHRO Comprehensiv No family history on file Level of Service:85817 [place] OFFICE/OUTPATIENT NEW MODERATE MDM 45 MINUTES (GC) Reason for Visit and Comments: New Patient [632] [facility] Ambulatory Visit Summaryon 0 07-18-2023 Ambulatory Visit [...] TURNER, Wade Peter Where: General Surgery [facility] [place] Normal [address] [place] [address]- \.br\ Medications\.br\ What How Much When Instructions\.br\ [...] for choosing us for your care.\.br\ \.br\ [facility] Physician Referralon 024 Physician Referral [phone] 1 [id number] .00TIFF [facility] Physician Referral [phone] 1 [id number]#1 .00TIFF [facility] 36on 06-13-2023 36 New order faxed to [facility] Also Options explained to Patient, who expressed understanding [facility] 36 Pt called (very anxious) to let you know that the Nephrology office can not see him until 08/01/23. [facility] Orders Onlyon 06-13-2023 Orders Only [id number] Travis Coburn 1940 M Date Provider Department Center 06/13/2023 Diane-LUIS DANIEL BRUNNER UTCF RHEUM PRCF No family history on file [facility] Telephoneon 06-13-2023 Telephone [id number] Travis Coburn 1940 M Date Provider Department Center 06/13/2023 853-MIGUEL GRANDE [facility] RHEUM [facility] No family history on file [facility] 36on 06-09-2023 36 Could you please shayla l patient [facility] Orders Onlyon 06-09-2023 Orders Only [id number] Travis Coburn 1940 M Date Provider Department Center 06/09/2023 RAS GREGORY C RHEUM [facility] No family history on file [facility] FLUORO FOR SURGICAL PROCEDUR ESon 04-05-2023 FLUORO FOR SURGICAL PROCEDURES RADRPT Radiology exam is complete. No Radiologist dictation. Please follow up with ordering provider. Final result Normal [facility] SURGICALon 04-05-2023 SURGICAL [place] [facility] TRAVIS COBURN [id number] Assoc. Page 1 of [address] [place] [address] PROC: 04/05/2023 [facility] RECV: 04/06/[address] RPTD: 04/07/2023 [place] [address] LOC: NAT ACCT: [id number] SEX: M : 1940 AGE: 82 Y [...] developed and its performance characteristics determined by [facility]. It has not been cleared or approved by the U.S. Food and Drug Administration. Pursuant to the requirements of CLIA, this laboratory has established and verified the test's accuracy and precision. Additional information about this type of test is available upon request. [id number] REJI FITZGERALD M.D., F.C.A.P. [facility] Printed on: 04/07/2023 [address], [place] [address] Original print date: 04/07/2023 Normal 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 Page 1 of 1\X0D0A\[address]\X0D0A\[place] [address]\X0D0A\ PROC: 04/05/2023\X0D0A\[facility] RECV: 04/06/2023\X0D0A\[address] RPTD: 04/07/2023\X0D0A\[place] [address]\X0D0A\ LOC: [place]\X0D0A\ ACCT: [id number] SEX: M\X0D0A\ : 1940 AGE: 82 Y\X0D0A\X0D0A\ [...] was developed and its performance characteristics determined\X0D0A\by [facility]. It has not been cleared or\X0D0A\approved by the U.S. Food and Drug Administration. Pursuant to the\X0D0A\requirements of CLIA, this laboratory has established and verified the\X0D0A\test's accuracy and precision. Additional information about this type\X0D0A\of test is available upon request.\X0D0A\X0D0A\46602\X0D0A\670[address]\X0D0A\07[address]\X0D0A\X0D0A\X 0D0A\ \X0D0A\ REJI FITZGERALD M.D., F.C.A.P.\X0D0A\X0D0A\X0D0A\[facility]/ [facility] Printed on: 04/07/2023\X0D0A\[address]\X0D0A\[place], [place] [address]\X0D0A\Original print date: 04/07/2023 Performed By: #### 1 [id number] #### [facility] See Report Ambulatory Visit Summaryon 0 03-20-2023 Ambulatory Visit Summary TRAVIS COBURN :1940 Visit Date:03/20/2023 Ambulatory Visit Instructions Your Diagnosis Nocturia Urinary urgency BPH with urinary obstruction History of kidney stones Impotence Tests Performed Urnls Dip Stick Auto w/o Microscopy POC 62121 Your Care Team Attending Physician - Nguyễn [...] TURNER, Nguyễn Peter Where: [facility] [place] Normal [facility] Patient Educationon 03-20-20 23 Patient Education Urology [...] Follow these instructions at home: ? Take ihhb-dzx-qdajtup and prescription medicines only as told by [...] medicine (more content not included)... 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 Reports he has [...] [facility] [address], [place] [phone] Additional Instructions: Patient Education Benign Prostatic Hyperplasia [...] qualifying data Procedure/ (more content not included)... [facility] Comment on above: Result Comment: Elec tronically Signed By: Nguyễn VELA MD\.br\Date and Time Signed: 03/20/23 15:41 EDT\.br\Electronically Co-Signed By: Jackeline Graff\.br\Date and Time Co-Signed: 03/20/23 15:38 EDT 36on 03-09-2023 36 Orders faxed w/ dx code [facility] 36on 03-07-2023 36 Person from [facility] lab called to states ICD-10 code (current code on order Z79.631) on blood work order is not being accepted by patient's medicare insurance. They would need a new order w/ a new dx code. I can fax new order to below number when completed [facility] Telephoneon 03-07-2023 Telephone [id number] Travis Coburn 1940 M Date Provider Department Center 03/07/2023 YOUSUF DUBON [facility] No family history on file Reason for Visit and Comments: Med Refill [335116] [facility] Follow-Upon 02-23-2023 Follow-Up [id number] Travis Coburn 1940 M Date Provider Department Center 02/23/2023 317-LUIS DANIEL BRUNNER [facility] No family history on file Level of Service:71042 [place] OFFICE/OUTPATIENT ESTABLISHED MOD MDM 30-39 MIN Reason for Visit and Comments: Follow-up [096266] - 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 [facility] Telephoneon 11-18-2022 Telephone [id number] Travis Coburn 1940 M Date Provider Department Center 11/18/2022 LUIS DANIEL HAYNES UTCF RHEUM UTCF No family history on file [facility] Follow-Upon 10-27-2022 Follow-Up [id number] Travis Coburn 1940 M Date Provider Department Center 10/27/2022 LUIS DANIEL HAYNES [facility] No family history on file Level of Service:23252 [place] OFFICE/OUTPATIENT ESTABLISHED MOD MDM 30-39 MIN Reason for Visit and Comments: Follow-up [131791] - DISCUSS MEDS [facility] INSULINon 10-26-2022 Insulin 34.8 uIU/mL Critically high 2.6-24.9 [facility] Comment on above: Performed By: #### C BC #### [facility] [address] [place] [address] Dr. Layla Barrera CBC AUTO DIFFon 10-25-2022 BASO # 0.0 103/ul Normal 0.0-0.1 [facility] Comment on above: Performed By: #### C BC #### [facility] [address] [place] [address] Dr. Layla Barrera Basophils/100 WBC (Bld) 0.6 % Normal 0.2-2.0 [facility] Comment on above: Performed By: #### C BC #### [facility] [address] [place] [address] Dr. Layla Barrera EO # 0.3 103/ul Normal 0.0-0.7 [facility] Comment on above: Performed By: #### C BC #### [facility] [address] [place] [address] Dr. Layla Barrera Eosinophils/100 WBC (Bld) 4.2 % Normal 0.9-7.0 [facility] Comment on above: Performed By: #### C BC #### [facility] [address] [place] [address] Dr. Layla Barrera Erythrocyte distribution width (RBC) [Ratio] 13.6 % Normal 11.0-15.0 [facility] Comment on above: Performed By: #### C BC #### [facility] [address] [place] [address] Dr. Layla Barrera Hematocrit (Bld) [Volume fraction] 42.6 % Normal 42.0-54.0 [facility] Comment on above: Performed By: #### C BC #### [facility] [address] [place] [address] Dr. Layla Barrera Hemoglobin (Bld) [Mass/Vol] 14.7 g/dL Normal 14.0-18.0 [facility] Comment on above: Performed By: #### C BC #### [facility] [address] [place] [address] Dr. Layla Barrera IG # 0.02 10e3/ul Normal 0.00-0.03 [facility] Comment on above: Performed By: #### C BC #### [facility] [address] [place] [address] Dr. Layla Barrera IG % 0.3 % Normal 0.0-0.5 [facility] Comment on above: Performed By: #### C BC #### [facility] [address] [place] [address] Dr. Layla Barrera LYMPH # 2.1 103/ul Normal 1.2-3.8 [facility] Comment on above: Performed By: #### C BC #### [facility] [address] [place] [address] Dr. Layla Barrera Lymphocytes/100 WBC (Bld) 30.1 % Normal 20.5-60.0 [facility] Comment on above: Performed By: #### C BC #### [facility] [address] [place] [address] Dr. Layla Brarera MANUAL DIFF REQ NO Normal [facility] Comment on above: Performed By: #### C BC #### [facility] [address] [place] [address] Dr. Layla Barrera MCH (RBC) [Entitic mass] 32.1 pg Normal 25.9-34.0 [facility] Comment on above: Performed By: #### C BC #### [facility] [address] [place] [address] Dr. Layla Barrera MCHC (RBC) [Mass/Vol] 34.5 g/dL Normal 29.9-35.2 [facility] Comment on above: Performed By: #### C BC #### [facility] [address] [place] [address] Dr. Layla Barrera MCV (RBC) [Entitic vol] 93.0 fL Normal 80.0-94.0 [facility] Comment on above: Performed By: #### C BC #### [facility] [address] [place] [address] Dr. Layla Barrera MONO # 0.6 103/ul Normal 0.3-0.8 [facility] Comment on above: Performed By: #### C BC #### [facility] [address] [place] [address] Dr. Layla Barrera Monocytes/100 WBC (Bld) 8.5 % Normal 1.7-12.0 [facility] Comment on above: Performed By: #### C BC #### [facility] [address] [place] [address] Dr. Layla Barrera NEUT # 3.9 103/ul Normal 1.4-6.5 [facility] Comment on above: Performed By: #### C BC #### [facility] [address] [place] [address] Dr. Layla Barrera Neutrophils/100 WBC (Bld) 56.3 % Normal 43.0-75.0 [facility] Comment on above: Performed By: #### C BC #### [facility] [address] [place] [address] Dr. Layla Barrera Platelet mean volume (Bld) [Entitic vol] 10.6 fL Normal 9.5-13.5 [facility] Comment on above: Performed By: #### C BC #### [facility] [address] [place] [address] Dr. Layla Barrera PLT 168 103/ul Normal 150-450 [facility] Comment on above: Performed By: #### C BC #### [facility] [address] [place] [address] Dr. Layla Barrera RBC 4.58 106/ul Critically low 4.70-6.10 [facility] Comment on above: Performed By: #### C BC #### [facility] [address] [place] [address] Dr. Layla Barrera WBC 7.0 103/ul Normal 4.0-11.0 [facility] Comment on above: Performed By: #### C BC #### [facility] [address] [place] [address] Dr. Layla Barrera FREE THYROXINE INDEX T7on FTI 2.21 Normal 1.30-4.50 [facility] Comment on above: Performed By: #### C BC #### [facility] [address] [place] [address] Dr. Layla Barrera T3U 33.0 % Normal 33.0-40.0 [facility] Comment on above: Performed By: #### C BC #### [facility] [address] [place] [address] Dr. Layla Barrera T4 [Mass/Vol] 6.70 ug/dL Normal 4.50-12.10 [facility] Comment on above: Performed By: #### C BC #### [facility] [address] [place] [address] Dr. Layla Barrera GLYCOHEMOGLOBIN A1Con 2022 ADA RECOMMENDATION SEE BELOW Normal [facility] Comment on above: Result Comment: ADA RECOMMENDED LIMIT 4.0 - 6.0 ADA THERAPEUTIC TARGET < 7.0 ACTION SUGGESTED > 7.0 Performed By: #### G IPANEL #### [facility] [address] [address] [address] Layla Barrera Glucose [Mass/Vol] 146 mg/dL Normal [facility] Comment on above: Performed By: #### G IPANEL #### [facility] [address] [place] [address] Dr. Layla Barrera HbA1c (Bld) [Mass fraction] 6.7 % Critically high 4.5-6.2 [facility] Comment on above: Performed By: #### G IPANEL #### [facility] [address] [place] [address] Dr. Layla Barrera IRONon 10-25-2022 Iron [Mass/Vol] 82.0 ug/dL Normal 65.0-175.0 [facility] Comment on above: Performed By: #### I SONYA MCGOVERN [id number] #### [facility] [address] [place] [address] Dr. Layla Barrera LIPID PROFILEon 10-25-2022 CHOL-HDL RATIO NORM SEE BELOW Normal [facility] Comment on above: Result Comment: 3.3 - 4.4 LOW RISK 4.4 - 7.1 AVERAGE RISK 7.1 - 11.0 MODERATE RISK >11.0 HIGH RISK Performed By: #### C BC #### [facility] [address] [place] [address] Dr. Layla Barrera Cholesterol [Mass/Vol] 201 mg/dL Critically high <=200 [facility] Comment on above: Performed By: #### C BC #### [facility] [address] [place] [address] Dr. Layla Barrera Cholesterol in HDL [Mass/Vol] 46 mg/dL Normal 40-60 [facility] Comment on above: Performed By: #### C BC #### [facility] [address] [place] [address] Dr. Layla Barrera Cholesterol in LDL [Mass/Vol] 133.4 mg/dL Normal [facility] Comment on above: Performed By: #### C BC #### [facility] [address] [place] [address] Dr. Layla Barrera Cholesterol.total/ Cholesterol in HDL [Mass ratio] 4.4 {ratio} Normal [facility] Comment on above: Performed By: #### C BC #### [facility] [address] [address] [address] Layla Barrera HDL NORMAL > or = 60 mg/dl - LO W CARDIOVASCULAR RISK <40 mg/dl - HIGH CARDIOVASCULAR RISK Normal [facility] Comment on above: Performed By: #### C BC #### [facility] [address] [place] [address] Dr. Layla Barrera LDL CALC NORMAL SEE BELOW Normal [facility] Comment on above: Result Comment: <100 mg/dl OPTIMAL 100 - 129 mg/dl NEAR OR ABOVE OPTIMAL 130 - 159 mg/dl BORDERLINE HIGH 160 - 189 mg/dl HIGH >190 mg/dl VERY HIGH Performed By: #### C BC #### [facility] [address] [place] [address] Dr. Layla Barrera Triglyceride [Mass/Vol] 108 mg/dL Normal <=150 [facility] Comment on above: Performed By: #### C BC #### [facility] [address] [place] [address] Dr. Layla Barrera VLDL CALC 21.6 mg/dL Normal [facility] Comment on above: Performed By: #### C BC #### [facility] [address] [place] [address] Dr. Layla Barrera PROF 14(COMP METB)on 023 Albumin [Mass/Vol] 3.6 g/dL Normal 3.4-5.0 [facility] Comment on above: Performed By: #### C BC #### [facility] [address] [place] [address] Dr. Layla Barrera Albumin/Globulin [Mass ratio] 1.0 {ratio} Normal [facility] Comment on above: Performed By: #### C BC #### [facility] [address] [place] [address] Dr. Layla Barrera ALP [Catalytic activity/Vol] 101 U/L Normal 46-116 [facility] Comment on above: Performed By: #### C BC #### [facility] [address] [place] [address] Dr. Layla Barrera ALT [Catalytic activity/Vol] 42 U/L Normal 16-63 [facility] Comment on above: Performed By: #### C BC #### [facility] [address] [place] [address] Dr. Layla Barrera Anion gap [Moles/Vol] 12.8 mmol/L Normal [facility] Comment on above: Performed By: #### C BC #### [facility] [address] [address] [address] Layla Barrera AST [Catalytic activity/Vol] 26 U/L Normal 15-37 [facility] Comment on above: Performed By: #### C BC #### [facility] [address] [place] [address] Dr. Layla Barrera Bilirubin [Mass/Vol] 0.7 mg/dL Normal 0.2-1.0 [facility] Comment on above: Performed By: #### C BC #### [facility] [address] [place] [address] Dr. Layla Barrera Calcium [Mass/Vol] 8.9 mg/dL Normal 8.5-10.1 [facility] Comment on above: Performed By: #### C BC #### [facility] [address] [place] [address] Dr. Layla Barrera Chloride [Moles/Vol] 103 mmol/L Normal 98-107 [facility] Comment on above: Performed By: #### C BC #### [facility] [address] [place] [address] Dr. Layla Barrera CO2 [Moles/Vol] 26.3 mmol/L Normal 21.0-32.0 [facility] Comment on above: Performed By: #### C BC #### [facility] [address] [place] [address] Dr. Layla Barrera Creatinine [Mass/Vol] 1.24 mg/dL Normal 0.70-1.30 [facility] Comment on above: Performed By: #### C BC #### [facility] [address] [place] [address] Dr. Layla Barrera EGFR-AF MALDIVIAN >60 Normal >=60 [facility] Comment on above: Performed By: #### C BC #### [facility] [address] [address] [address] Layla Barrera EGFR-NON AF MALDIVIAN 56 mL/min/1.73m2 Critically low >=60 [facility] Comment on above: Performed By: #### C BC #### [facility] [address] [address] [address] Layla Barrera Globulin (S) [Mass/Vol] 3.5 g/dL Normal [facility] Comment on above: Performed By: #### C BC #### [facility] [address] [address] [address] Layla Barrera Glucose [Mass/Vol] 147 mg/dL Critically high 74-106 [facility] Comment on above: Performed By: #### C BC #### [facility] [address] [address] [address] Layla Barrera Potassium [Moles/Vol] 4.1 mmol/L Normal 3.5-5.1 [facility] Comment on above: Performed By: #### C BC #### [facility] [address] [address] [address] Layla Barrera Protein [Mass/Vol] 7.1 g/dL Normal 6.4-8.2 [facility] Comment on above: Performed By: #### C BC #### [facility] [address] [address] [address] Layla Barrera Sodium [Moles/Vol] 138 mmol/L Normal 136-145 [facility] Comment on above: Performed By: #### C BC #### [facility] [address] [address] [address] Layla Barrera Urea nitrogen [Mass/Vol] 18.0 mg/dL Normal 7.0-18.0 [facility] Comment on above: Performed By: #### C BC #### [facility] [address] [address] [address] Layla Barrera Urea nitrogen/Creatinin e [Mass ratio] 14.5 mg/mg Normal [facility] Comment on above: Performed By: #### C BC #### [facility] [address] [place] [address] Dr. Layla Barrera TSHon 10-25-2022 TSH 2.495 uIU/mL Normal 0.358-3.740 [facility] Comment on above: Performed By: #### C BC #### [facility] [address] [place] [address] Dr. Layla Barrera URIC ACID SERUMon 10-25-2022 Urate [Mass/Vol] 8.1 mg/dL Critically high 3.5-7.2 [facility] Comment on above: Performed By: #### C BC #### [facility] [address] [place] [address] Dr. Layla Barrera VITAMIN B12on 10-25-2022 Cobalamin (Vitamin B12) [Mass/Vol] 689.0 pg/mL Normal 193.0-986.0 [facility] Comment on above: Performed By: #### I SONYA MCGOVERN, [id number] #### [facility] [address] [place] [address] Dr. Layla Barrera VITAMIN D 25 OHon 10-25-2022 VIT D 25-OH 17.0 ng/mL Normal [facility] Comment on above: Performed By: #### I SONYA MCGOVERN, [id number] #### [facility] [address] [place] [address] Dr. Layla Barrera VIT D RANGES SEE BELOW Normal [facility] Comment on above: Result Comment: <20 ng/mL Vit D deficient 20 - <30 ng/mL Vit D insufficient 30 - 100 ng/mL Vit D sufficient >100 ng/mL Potential Toxicity Performed By: #### I SONYA MCGOVERN, [id number] #### [facility] [address] [place] [address] Dr. Layla Barrera 3610-20-2022 36 Pt aware appt scheduled [facility] 36 Patient called again to state that he might have to go to the ED if he does not hear from you soon [facility] 36on 10-19-2022 36 Patient calling regarding 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, [...] contributing to his conditions. Normal [facility] CBC WITH AUTO DIFFERENTIALon 08-25-2022 Basophils (Bld) [#/Vol] 0.04 10*3/uL Normal 0.00-0.20 [facility] Comment on above: Performed By: #### L [id number] ####[facility] ([facility])[address] [facility] [place] [address] Basophils/100 WBC (Bld) 0.6 % Normal 0.0-1.0 [facility] Comment on above: Performed By: #### L [id number] ####[facility] ([facility])[address] [facility] [place] [address] Eosinophils (Bld) [#/Vol] 0.13 10*3/uL Normal 0.00-0.50 [facility] Comment on above: Performed By: #### L [id number] ####[facility] ([facility])[address] [facility] [place] [address] Eosinophils/100 WBC (Bld) 2.0 % Normal 0.0-6.0 [facility] Comment on above: Performed By: #### L [id number] ####[facility] ([facility])[address] [facility] [place] [address] Erythrocyte distribution width (RBC) [Ratio] 13.3 % Normal 11.5-15.0 [facility] Comment on above: Performed By: #### L [id number] ####[facility] [place] [address] ERYTHROCYTE MEAN CORPUSCULAR HEMOGLOBIN CONCENTRATION (G/DL) BY AUTOMATED 34.8 g/dL Normal 32.0-35.0 [facility] Comment on above: Performed By: #### L [id number] ####[facility] ([facility])[address] [place] [address] Hematocrit (Bld) [Volume fraction] 42.8 % Normal 39.0-55.0 [facility] Comment on above: Performed By: #### L [id number] ####[facility] ([facility])[address] [place] [address] Hemoglobin (Bld) [Mass/Vol] 14.9 g/dL Normal 13.0-17.0 [facility] Comment on above: Performed By: #### L [id number] ####[facility] ([facility])[address] [place] [address] Immature granulocytes (Bld) [#/Vol] 0.04 10*3/uL Normal 0.00-0.20 [facility] Comment on above: Performed By: #### L [id number] ####[facility] ([facility])[address] [place] [address] Immature granulocytes/100 WBC (Bld) 0.6 % Normal 0.0-1.0 [facility] Comment on above: Performed By: #### L [id number] ####[facility] ([facility])[address] [place] [address] Lymphocytes (Bld) [#/Vol] 2.05 10*3/uL Normal 1.20-4.00 [facility] Comment on above: Performed By: #### L [id number] ####[facility] ([facility])[address] [place] [address] Lymphocytes/100 WBC (Bld) 30.9 % Normal 20.0-45.0 [facility] Comment on above: Performed By: #### L [id number] ####[facility] ([facility])[address] [place] [address] MCH (RBC) [Entitic mass] 31.6 pg Normal 27.0-33.0 [facility] Comment on above: Performed By: #### L [id number] ####[facility] ([facility])[address] [place] [address] MCV (RBC) [Entitic vol] 90.9 fL Normal 82.0-98.0 [facility] Comment on above: Performed By: #### L [id number] ####[facility] ([facility])[address] [place] [address] Monocytes (Bld) [#/Vol] 0.60 10*3/uL Normal 0.10-1.00 [facility] Comment on above: Performed By: #### L [id number] ####[facility] ([facility])[address] [place] [address] Monocytes/100 WBC (Bld) 9.0 % Normal 5.0-12.0 [facility] Comment on above: Performed By: #### L [id number] ####[facility] [place] [address] Neutrophils (Bld) [#/Vol] 3.78 10*3/uL Normal 1.60-7.60 [facility] Comment on above: Performed By: #### L [id number] ####[facility] [place] [address] Neutrophils/100 WBC (Bld) 56.9 % Normal 40.0-72.0 [facility] Comment on above: Performed By: #### L [id number] ####[facility] [place] [address] NRBC (PER 100 WBCS) BY AUTOMATED COUNT 0.0 % Normal 0.0-0.0 [facility] Comment on above: Performed By: #### L [id number] ####[facility] [place] [address] PLATELETS (10*3/UL) IN BLOOD AUTOMATED COUNT 173 10*3/uL Normal 150-400 [facility] Comment on above: Performed By: #### L [id number] ####[facility] ([facility])[address] [place] [address] RBC (Bld) [#/Vol] 4.71 10*6/uL Normal 4.20-5.70 [facility] Comment on above: Performed By: #### L [id number] ####[facility] ([facility])[address] [place] [address] WBC (Bld) [#/Vol] 6.64 10*3/uL Normal 4.00-10.60 [facility] Comment on above: Performed By: #### L [id number] ####[facility] ([facility])[address] [place] [address] COMPREHENSIVE METABOLIC PANE [place] 08-25-2022 Albumin [Mass/Vol] 4.1 g/dL Normal 3.5-5.7 [facility] Comment on above: Performed By: #### L [id number] #### [facility] ([facility]) [address] [place] [address] ALP [Catalytic activity/Vol] 85 U/L Normal 34-104 [facility] Comment on above: Performed By: #### L [id number] #### [facility] ([facility]) [address] [place] [address] ALT [Catalytic activity/Vol] 47 U/L Normal 7-52 [facility] Comment on above: Performed By: #### L [id number] #### [facility] ([facility]) [address] [place] [address] Anion gap [Moles/Vol] 9 mmol/L Normal 7-20 [facility] Comment on above: Performed By: #### L [id number] #### [facility] [address] [place] [address] AST [Catalytic activity/Vol] 31 U/L Normal 13-39 [facility] Comment on above: Performed By: #### L [id number] #### [facility] ([facility]) [address] [place] [address] Bilirubin [Mass/Vol] 0.6 mg/dL Normal 0.3-1.0 [facility] Comment on above: Performed By: #### L [id number] #### [facility] [address] [place] [address] Calcium [Mass/Vol] 9.2 mg/dL Normal 8.6-10.3 [facility] Comment on above: Performed By: #### L [id number] #### [facility] [address] [place] [address] Chloride [Moles/Vol] 102 mmol/L Normal 98-107 [facility] Comment on above: Performed By: #### L [id number] #### [facility] ([facility]) [address] [place] [address] CO2 [Moles/Vol] 29 mmol/L Normal 21-31 [facility] Comment on above: Performed By: #### L [id number] #### [facility] ([facility]) [address] [place] [address] Creatinine [Mass/Vol] 1.09 mg/dL Normal 0.70-1.30 [facility] Comment on above: Performed By: #### L [id number] #### [facility] ([facility]) [address] [place] [address] GLOMERULAR FILTRATION RATE ML/MIN/1.73 SQ M.PREDICTED 63.8 mL/min/1.73m*2 Normal >60.0 [facility] Comment on above: Result Comment: The [facility]???s estimated glomerular filtration rate (eGFR) will [...] individuals. Performed By: #### L [id number] #### [facility] [address] [place] [address] Glucose [Mass/Vol] 142 mg/dL High 70-100 [facility] Comment on above: Performed By: #### L [id number] #### [facility] [address] [place] [address] Potassium [Moles/Vol] 4.1 mmol/L Normal 3.5-5.1 [facility] Comment on above: Performed By: #### L [id number] #### [facility] ([facility]) [address] [place] [address] Protein [Mass/Vol] 7.0 g/dL Normal 6.0-8.3 [facility] Comment on above: Performed By: #### L [id number] #### [facility] ([facility]) [address] [place] [address] Sodium [Moles/Vol] 136 mmol/L Normal 136-145 [facility] Comment on above: Performed By: #### L [id number] #### [facility] ([facility]) [address] [place] [address] Urea nitrogen [Mass/Vol] 14 mg/dL Normal 7-25 [facility] Comment on above: Performed By: #### L [id number] #### [facility] ([facility]) [address] [place] [address] UREA NITROGEN/CREATININ E (MASS RATIO) IN SER/PLAS 12.84 Normal [facility] Comment on above: Performed By: #### L [id number] #### [facility] ([facility]) [address] [place] [address] Follow-Upon 08-25-2022 Follow-Up [id number] Travis Coburn 1940 M Date Provider Department Center 08/25/2022 [facility]-LUIS DANIEL BRUNNER [facility] RHEUM Eloise Heal No family history on file Level of Service:44726 [place] OFFICE/OUTPATIENT ESTABLISHED MOD MDM 30-39 MIN () Reason for Visit and Comments: Follow-up [[id number]] Normal [facility] PSA, FREE AND TOTAL RATIOon 06-22-2022 % Free PSA 49.9 % Normal [facility] Comment on above: Result Comment: The [...] men. Performed By: #### P SAFREE #### [facility] [address] [place] [address] Dr. Layla Barrera Prostate specific Ag [Mass/Vol] 6.8 ng/mL Critically high 0.0-4.0 [facility] Comment on above: Result Comment: Nikki bassett ECLIA methodology. . According to the [employer] [employer], Serum PSA should decrease and [...] disease. Performed By: #### P SAFREE #### [facility] [address] [place] [address] Dr. Layla Barrera PSA, Free 3.39 ng/mL Normal N/A [facility] Comment on above: Result Comment: Nikki bassett ECLIA methodology. Performed By: #### P SAFREE #### [facility] [address] [place] [address] Dr. Layla Barrera H PYLORI ANTIBODY IGGon 090 H. PYLORI IGG ABS 0.96 Index Value Critically high 0.00-0. 79 [facility] Comment on above: Result Comment: Nega tive <0.80 Equivocal 0.80 - 0.89 Positive >0.89 Performed By: #### C BC #### [facility] [address] [place] [address] Dr. Layla Barrera INSULINon 03-12-2022 Insulin 38.7 uIU/mL Critically high 2.6-24.9 [facility] Comment on above: Performed By: #### G IPANEL #### [facility] [address] [place] [address] Dr. Layla Barrera AMYLASEon 03-11-2022 Amylase [Catalytic activity/Vol] 54 U/L Normal 25-115 [facility] Comment on above: Performed By: #### G IPANEL #### [facility] [address] [place] [address] Dr. Layla Barrera CBC AUTO DIFFon 03-11-2022 BASO # 0.1 103/ul Normal 0.0-0.1 [facility] Comment on above: Performed By: #### C BC #### [facility] [address] [place] [address] Dr. Layla Barrera Basophils/100 WBC (Bld) 0.7 % Normal 0.2-2.0 [facility] Comment on above: Performed By: #### C BC #### [facility] [address] [place] [address] Dr. Layla Barrera EO # 0.3 103/ul Normal 0.0-0.7 [facility] Comment on above: Performed By: #### C BC #### [facility] [address] [place] [address] Dr. Layla Barrera Eosinophils/100 WBC (Bld) 3.6 % Normal 0.9-7.0 [facility] Comment on above: Performed By: #### C BC #### [facility] [address] [place] [address] Dr. Layla Barrera Erythrocyte distribution width (RBC) [Ratio] 13.2 % Normal 11.0-15.0 [facility] Comment on above: Performed By: #### C BC #### [facility] [address] [place] [address] Dr. Layla Barrera Hematocrit (Bld) [Volume fraction] 43.0 % Normal 42.0-54.0 [facility] Comment on above: Performed By: #### C BC #### [facility] [address] [place] [address] Dr. Layla Barrera Hemoglobin (Bld) [Mass/Vol] 14.6 g/dL Normal 14.0-18.0 [facility] Comment on above: Performed By: #### C BC #### [facility] [address] [place] [address] Dr. Layla Barrera IG # 0.03 10e3/ul Normal 0.00-0.03 [facility] Comment on above: Performed By: #### C BC #### [facility] [address] [place] [address] Dr. Layla Barrera IG % 0.4 % Normal 0.0-0.5 [facility] Comment on above: Performed By: #### C BC #### [facility] [address] [place] [address] Dr. Layla Barrera LYMPH # 3.0 103/ul Normal 1.2-3.8 [facility] Comment on above: Performed By: #### C BC #### [facility] [address] [place] [address] Dr. Lyala Barrera Lymphocytes/100 WBC (Bld) 41.2 % Normal 20.5-60.0 [facility] Comment on above: Performed By: #### C BC #### [facility] [address] [place] [address] Dr. Layla Barrera MANUAL DIFF REQ NO Normal [facility] Comment on above: Performed By: #### C BC #### [facility] [address] [place] [address] Dr. Layla Barrera MCH (RBC) [Entitic mass] 31.8 pg Normal 25.9-34.0 [facility] Comment on above: Performed By: #### C BC #### [facility] [address] [place] [address] Dr. Layla Barrera MCHC (RBC) [Mass/Vol] 34.0 g/dL Normal 29.9-35.2 [facility] Comment on above: Performed By: #### C BC #### [facility] [address] [place] [address] Dr. Layla Barrera MCV (RBC) [Entitic vol] 93.7 fL Normal 80.0-94.0 [facility] Comment on above: Performed By: #### C BC #### [facility] [address] [place] [address] Dr. Layla Barrera MONO # 0.6 103/ul Normal 0.3-0.8 [facility] Comment on above: Performed By: #### C BC #### [facility] [address] [address] [address] Layla Barrera Monocytes/100 WBC (Bld) 7.9 % Normal 1.7-12.0 [facility] Comment on above: Performed By: #### C BC #### [facility] [address] [place] [address] Dr. Layla Barrera NEUT # 3.3 103/ul Normal 1.4-6.5 [facility] Comment on above: Performed By: #### C BC #### [facility] [address] [place] [address] Dr. Layla Barrera Neutrophils/100 WBC (Bld) 46.2 % Normal 43.0-75.0 [facility] Comment on above: Performed By: #### C BC #### [facility] [address] [place] [address] Dr. Layla Barrera Platelet mean volume (Bld) [Entitic vol] 11.1 fL Normal 9.5-13.5 [facility] Comment on above: Performed By: #### C BC #### [facility] [address] [place] [address] Dr. Layla Barrera PLT 171 103/ul Normal 150-450 [facility] Comment on above: Performed By: #### C BC #### [facility] [address] [place] [address] Dr. Layla Barerra RBC 4.59 106/ul Critically low 4.70-6.10 [facility] Comment on above: Performed By: #### C BC #### [facility] [address] [place] [address] Dr. Layla Barrera WBC 7.2 103/ul Normal 4.0-11.0 [facility] Comment on above: Performed By: #### C BC #### [facility] [address] ABD/PELV W CONon [...] CJ MELTON Date: 2022-03-11 10:08 Normal [facility] GI PANEL (PCR)on 03-11-2022 Adenovirus F 40/41 Not detected Normal NOT DETECTED [facility] Comment on above: Performed By: #### G IPANEL #### [facility] [address] [place] [address] Dr. Layla Barrera Astrovirus Not detected Normal NOT DETECTED [facility] Comment on above: Performed By: #### G IPANEL #### [facility] [address] [place] [address] Dr. Layla Vincent. Diff toxin A/B Not detected Normal NOT DETECTED [facility] Comment on above: Performed By: #### G IPANEL #### [facility] [address] [place] [address] Dr. Layla Barrera Campylobacter Not detected Normal NOT DETECTED [facility] Comment on above: Performed By: #### G IPANEL #### [facility] [address] [address] [address] Layla Barrera Cryptosporidium Not detected Normal NOT DETECTED [facility] Comment on above: Performed By: #### G IPANEL #### [facility] [address] [address] [address] Layla Barrera Cyclos. Cayetanensis Not detected Normal NOT DETECTED [facility] Comment on above: Performed By: #### G IPANEL #### [facility] [address] [address] [address] Layla Barrera E. Coli O157 Not Applicable Normal Not Applicable [facility] Comment on above: Performed By: #### G IPANEL #### [facility] [address] [place] [address] Dr. Layla Barrera E. histolytica Not detected Normal NOT DETECTED [facility] Comment on above: Performed By: #### G IPANEL #### [facility] [address] [place] [address] Dr. Layla Barrera EAEC Not detected Normal NOT DETECTED [facility] Comment on above: Performed By: #### G IPANEL #### [facility] [address] [place] [address] Dr. Layla Barrera EIEC Not detected Normal NOT DETECTED [facility] Comment on above: Performed By: #### G IPANEL #### [facility] [address] [address] [address] Layla Barrera EPEC Detected Abnormal NOT DETECTED [facility] Comment on above: Performed By: #### G IPANEL #### [facility] [address] [address] [address] Layla Barrera ETEC Not detected Normal NOT DETECTED [facility] Comment on above: Performed By: #### G IPANEL #### [facility] [address] [place] [address] Dr. Layla Barrera G. Lamblia Not detected Normal NOT DETECTED [facility] Comment on above: Performed By: #### G IPANEL #### [facility] [address] [address] [address] Layla STEINBERG CONTROLS PASSED Normal [facility] Comment on above: Performed By: #### G IPANEL #### [facility] [address] [address] [address] Layla ALEXIS [facility] HEADER GI PANEL BACTERIA Normal [facility] Comment on above: Performed By: #### G IPANEL #### [facility] [address] [address] [address] Layla SARAVIA ECOLI GI PANEL DIARRHEAGENIC E.COLI / SHIGELLA Normal [facility] Comment on above: Performed By: #### G IPANEL #### [facility] [address] [place] [address] Dr. Layla SARAVIA INFO SEE BELOW Normal [facility] Comment on above: Result Comment: EAEC - Enteroaggregative E. Coli EPEC- Enteropathogenic E. Coli ETEC- Enterotoxigenic E. Coli lt/st STEC- Shigella-like toxin-producing E. Coli stx1/stx2 EIEC- Shigella/Enteroinvasive E. Coli Performed By: #### G IPANEL #### [facility] [address] [address] [address] Layla SARAVIA PARASITES GI PANEL PARASITES Normal [facility] Comment on above: Performed By: #### G IPANEL #### [facility] [address] [address] [address] Layla SARAVIA VIRUS GI PANEL VIRUSES Normal [facility] Comment on above: Performed By: #### G IPANEL #### [facility] [address] [address] [address] Layla Barrera Norovirus GI/GII Not detected Normal NOT DETECTED [facility] Comment on above: Performed By: #### G IPANEL #### [facility] [address] [place] [address] Dr. Layla Barrera P. Shigelloides Not detected Normal NOT DETECTED [facility] Comment on above: Performed By: #### G IPANEL #### [facility] [address] [address] [address] Layla Barrera Rotavirus A Not detected Normal NOT DETECTED [facility] Comment on above: Performed By: #### G IPANEL #### [facility] [address] [place] [address] Dr. Layla Barrera Salmonella Not detected Normal NOT DETECTED [facility] Comment on above: Performed By: #### G IPANEL #### [facility] [address] [address] [address] Layla Barrera Sapovirus Not detected Normal NOT DETECTED [facility] Comment on above: Performed By: #### G IPANEL #### [facility] [address] [place] [address] Dr. Layla Barrera STEC Not detected Normal NOT DETECTED [facility] Comment on above: Performed By: #### G IPANEL #### [facility] [address] [place] [address] Dr. Layla Barrera Vibrio Not detected Normal NOT DETECTED [facility] Comment on above: Performed By: #### G IPANEL #### [facility] [address] [place] [address] Dr. Layla Barrera Vibrio Cholera Not detected Normal NOT DETECTED [facility] Comment on above: Performed By: #### G IPANEL #### [facility] [address] [place] [address] Dr. Layla Barrera Y. Enterocolitica Not detected Normal NOT DETECTED [facility] Comment on above: Performed By: #### G IPANEL #### [facility] [address] [place] [address] Dr. Layla Barrera GLYCOHEMOGLOBIN A1Con 2021 ADA RECOMMENDATION SEE BELOW Normal [facility] Comment on above: Result Comment: ADA RECOMMENDED LIMIT 4.0 - 6.0 ADA THERAPEUTIC TARGET < 7.0 ACTION SUGGESTED > 7.0 Performed By: #### G IPANEL #### [facility] [address] [place] [address] Dr. Layla Barrera Glucose [Mass/Vol] 134 mg/dL Normal [facility] Comment on above: Performed By: #### G IPANEL #### [facility] [address] [address] [address] Layla Barrera HbA1c (Bld) [Mass fraction] 6.3 % Critically high 4.5-6.2 [facility] Comment on above: Performed By: #### G IPANEL #### [facility] [address] [place] [address] Dr. Layla Barrera LIPASEon 03-11-2022 Lipase [Catalytic activity/Vol] 82.0 U/L Normal 73.0-393.0 [facility] Comment on above: Performed By: #### G IPANEL #### [facility] [address] [place] [address] Dr. Layla Barrera LIPID PROFILEon 03-11-2022 CHOL-HDL RATIO NORM SEE BELOW Normal [facility] Comment on above: Result Comment: 3.3 - 4.4 LOW RISK 4.4 - 7.1 AVERAGE RISK 7.1 - 11.0 MODERATE RISK >11.0 HIGH RISK Performed By: #### G IPANEL #### [facility] [address] [place] [address] Dr. Layla Barrera Cholesterol [Mass/Vol] 216 mg/dL Critically high <=200 [facility] Comment on above: Performed By: #### G IPANEL #### [facility] [address] [place] [address] Dr. Layla Barrera Cholesterol in HDL [Mass/Vol] 47 mg/dL Normal 40-60 [facility] Comment on above: Performed By: #### G IPANEL #### [facility] [address] [place] [address] Dr. Layla Barrera Cholesterol in LDL [Mass/Vol] 134.4 mg/dL Normal [facility] Comment on above: Performed By: #### G IPANEL #### [facility] [address] [place] [address] Dr. Layla Barrera Cholesterol.total/ Cholesterol in HDL [Mass ratio] 4.6 {ratio} Normal [facility] Comment on above: Performed By: #### G IPANEL #### [facility] [address] [place], [place] [id number] Dr. Layla Barrera HDL NORMAL > or = 60 mg/dl - LO W CARDIOVASCULAR RISK <40 mg/dl - HIGH CARDIOVASCULAR RISK Normal [facility] Comment on above: Performed By: #### G IPANEL #### [facility] [address] [address] [address] Layla Barrera LDL CALC NORMAL SEE BELOW Normal [facility] Comment on above: Result Comment: <100 mg/dl OPTIMAL 100 - 129 mg/dl NEAR OR ABOVE OPTIMAL 130 - 159 mg/dl BORDERLINE HIGH 160 - 189 mg/dl HIGH >190 mg/dl VERY HIGH Performed By: #### G IPANEL #### [facility] [address] [address] [address] Layla Barrera Triglyceride [Mass/Vol] 173 mg/dL Critically high <=150 [facility] Comment on above: Performed By: #### G IPANEL #### [facility] [address] [address] [address] Layla Barrera VLDL CALC 34.6 mg/dL Normal [facility] Comment on above: Performed By: #### G IPANEL #### [facility] [address] [address] [address] Layla Barrera OCC BLD IMMUNO SCREENon OCCULT BLOOD Negative Normal NEGATIVE [facility] Comment on above: Performed By: #### C BC #### [facility] [address] [address] [address] Layla Barrera PROF 14(COMP METB)on 022 Albumin [Mass/Vol] 3.7 g/dL Normal 3.4-5.0 [facility] Comment on above: Performed By: #### C BC #### [facility] [address] [address] [address] Layal Barrera Albumin/Globulin [Mass ratio] 1.1 {ratio} Normal [facility] Comment on above: Performed By: #### C BC #### [facility] [address] [address] [address] Layla Barrera ALP [Catalytic activity/Vol] 90 U/L Normal 46-116 [facility] Comment on above: Performed By: #### C BC #### [facility] [address] [address] [address] Layla Barrera ALT [Catalytic activity/Vol] 66 U/L Critically high 16-63 [facility] Comment on above: Performed By: #### C BC #### [facility] [address] [address] [address] Layla Barrera Anion gap [Moles/Vol] 12.8 mmol/L Normal [facility] Comment on above: Performed By: #### C BC #### [facility] [address] [address] [address] Layla Barrera AST [Catalytic activity/Vol] 32 U/L Normal 15-37 [facility] Comment on above: Performed By: #### C BC #### [facility] [address] [place] [address] Dr. Layla Barrera Bilirubin [Mass/Vol] 0.7 mg/dL Normal 0.2-1.0 [facility] Comment on above: Performed By: #### C BC #### [facility] [address] [place] [address] Dr. Layla Barrera Calcium [Mass/Vol] 8.9 mg/dL Normal 8.5-10.1 [facility] Comment on above: Performed By: #### C BC #### [facility] [address] [place] [address] Dr. Layla Barrera Chloride [Moles/Vol] 100 mmol/L Normal 98-107 [facility] Comment on above: Performed By: #### C BC #### [facility] [address] [address] [address] Layla Barrera CO2 [Moles/Vol] 27.9 mmol/L Normal 21.0-32.0 [facility] Comment on above: Performed By: #### C BC #### [facility] [address] [place] [address] Dr. Layla Barrera Creatinine [Mass/Vol] 1.30 mg/dL Normal 0.70-1.30 [facility] Comment on above: Performed By: #### C BC #### [facility] [address] [address] [address] Layla Barrera EGFR-AF MALDIVIAN >60 Normal >=60 [facility] Comment on above: Performed By: #### C BC #### [facility] [address] [address] [address] Layla Barrera EGFR-NON AF MALDIVIAN 53 mL/min/1.73m2 Critically low >=60 [facility] Comment on above: Performed By: #### C BC #### [facility] [address] [address] [address] Layla Barrera Globulin (S) [Mass/Vol] 3.3 g/dL Normal [facility] Comment on above: Performed By: #### C BC #### [facility] [address] [place] [address] Dr. Layla Barrera Glucose [Mass/Vol] 137 mg/dL Critically high 74-106 [facility] Comment on above: Performed By: #### C BC #### [facility] [address] [address] [address] Layla Barrera Potassium [Moles/Vol] 3.7 mmol/L Normal 3.5-5.1 [facility] Comment on above: Performed By: #### C BC #### [facility] [address] [place] [address] Dr. Layla Barrera Protein [Mass/Vol] 7.0 g/dL Normal 6.4-8.2 [facility] Comment on above: Performed By: #### C BC #### [facility] [address] [place] [address] Dr. Layla Barrera Sodium [Moles/Vol] 137 mmol/L Normal 136-145 [facility] Comment on above: Performed By: #### C BC #### [facility] [address] [address] [address] Layla Barrera Urea nitrogen [Mass/Vol] 20.0 mg/dL Critically high 7.0-18.0 [facility] Comment on above: Performed By: #### C BC #### [facility] [address] [address] [address] Layla Barrera Urea nitrogen/Creatinin e [Mass ratio] 15.4 mg/mg Normal [facility] Comment on above: Performed By: #### C BC #### [facility] [address] [address] [address] Layla Barrera URIC ACID SERUMon 03-11-2022 Urate [Mass/Vol] 8.3 mg/dL Critically high 3.5-7.2 [facility] Comment on above: Performed By: #### G IPANEL #### [facility] [address] [address] [address] Layla Barrera Office Visit (Cardiology)on 12-28-2021 [...] 09:51AM Hea (more content not included)... Normal Swarm Tobacco Screening.on 022 Fall risk assessment a) No falls within the last year [facility] [place] [address] DO Work Phone: Tobacco use status [facility]PH[facility] b) No -[facility] [address] DO Work Phone: NO CARDIAC STRESS/REST INJE CTIONon 12-21-2021 NO CARDIAC STRESS/REST INJECTION Patient Name: TRAVIS COBURN STUDY: MYOCARDIAL PERFUSION STRESS TEST WITH LEXISCAN Performing facility: 0 NO Provider: Azalea Deras MD, LOCATED [facility]IN [facility] PCP: Dr. Navarrete Supervising provider: Wade Ramos DO, [facility] INDICATION: CAD; Dyspnea HISTORY: Gender: M; Age: 81 y/o ; Height: 0 cm; Weight: 546.5325485 kg. CAD; High Cholesterol; HTN; SOB; Fatigue; Quit smoking 30 years ago. Cardiac catheterization on 2005. COMPARISON: Previous nuclear testing completed [id number] at [facility]. ACCESSION NUMBER(S): [id number]; [id number]; [id number] ORDERING CLINICIAN: JOHNNIE DERAS TECHNIQUE: TWO DAY [...] Electronically signed by: ABDOUL TIMMONS MD Normal [facility] No Panel Informationon 12-21 Normal -[facility] [place] [address] DO Work [...] DAILY. Allergies (more content not included)... Normal Swarm Tobacco Screening.on 022 Adult depression screening assessment No [facility] [employer] [place] [address] DO Work Phone: Fall risk assessment a) No falls within the last year [facility] [employer] [place] [address] DO Work Phone: Tobacco use status [facility] b) No [facility] [email or web address] 250 DO Work Phone: C REACTIVE PROTEINon 022 CRP [Mass/Vol] 3.3 mg/L Normal 0.0-7.0 [facility] Comment on above: Performed By: #### 6 1405 #### [facility] [address] CBC AUTO DIFFon 11-25-2021 BASO # 0.0 103/ul Normal 0.0-0.1 [facility] Comment on above: Performed By: #### G IPANEL #### [facility] [address] [place] [address] Dr. Layla Barrera Basophils/100 WBC (Bld) 0.5 % Normal 0.2-2.0 [facility] Comment on above: Performed By: #### G IPANEL #### [facility] [address] [place] [address] Dr. Layla Barrera EO # 0.2 103/ul Normal 0.0-0.7 [facility] Comment on above: Performed By: #### G IPANEL #### [facility] [address] [place] [address] Dr. Layla Barrera Eosinophils/100 WBC (Bld) 3.0 % Normal 0.9-7.0 [facility] Comment on above: Performed By: #### G IPANEL #### [facility] [address] [place] [address] Dr. Layla Barrera Erythrocyte distribution width (RBC) [Ratio] 13.7 % Normal 11.0-15.0 [facility] Comment on above: Performed By: #### G IPANEL #### [facility] [address] [place] [address] Dr. Layla Barrera Hematocrit (Bld) [Volume fraction] 40.0 % Critically low 42.0-54.0 [facility] Comment on above: Performed By: #### G IPANEL #### [facility] [address] [place] [address] Dr. Layla Barrera Hemoglobin (Bld) [Mass/Vol] 13.4 g/dL Critically low 14.0-18.0 [facility] Comment on above: Performed By: #### G IPANEL #### [facility] [address] [place] [address] Dr. Layla Barrera IG # 0.02 10e3/ul Normal 0.00-0.03 [facility] Comment on above: Performed By: #### G IPANEL #### [facility] [address] [place] [address] Dr. Layla Barrera IG % 0.3 % Normal 0.0-0.5 [facility] Comment on above: Performed By: #### G IPANEL #### [facility] [address] [place] [address] Dr. Layla Barrera LYMPH # 2.4 103/ul Normal 1.2-3.8 [facility] Comment on above: Performed By: #### G IPANEL #### [facility] [address] [place] [address] Dr. Layla Barrera Lymphocytes/100 WBC (Bld) 39.6 % Normal 20.5-60.0 [facility] Comment on above: Performed By: #### G IPANEL #### [facility] [address] [place], [place] [id number] Dr. Layla Barrera MANUAL DIFF REQ NO Normal [facility] Comment on above: Performed By: #### G IPANEL #### [facility] [address] [place] [address] Dr. Layla Barrera MCH (RBC) [Entitic mass] 31.3 pg Normal 25.9-34.0 [facility] Comment on above: Performed By: #### G IPANEL #### [facility] [address] [place] [address] Dr. Layla Barrera MCHC (RBC) [Mass/Vol] 33.5 g/dL Normal 29.9-35.2 [facility] Comment on above: Performed By: #### G IPANEL #### [facility] [address] [place] [address] Dr. Layla Barrera MCV (RBC) [Entitic vol] 93.5 fL Normal 80.0-94.0 [facility] Comment on above: Performed By: #### G IPANEL #### [facility] [address] [place] [address] Dr. Layla Barrera MONO # 0.6 103/ul Normal 0.3-0.8 [facility] Comment on above: Performed By: #### G IPANEL #### [facility] [address] [place] [address] Dr. Layla Barrera Monocytes/100 WBC (Bld) 9.3 % Normal 1.7-12.0 [facility] Comment on above: Performed By: #### G IPANEL #### [facility] [address] [place] [address] Dr. Layla Barrera NEUT # 2.8 103/ul Normal 1.4-6.5 [facility] Comment on above: Performed By: #### G IPANEL #### [facility] [address] [place] [address] Dr. Layla Barrera Neutrophils/100 WBC (Bld) 47.3 % Normal 43.0-75.0 [facility] Comment on above: Performed By: #### G IPANEL #### [facility] [address] [place] [address] Dr. Layla Barrera Platelet mean volume (Bld) [Entitic vol] 10.4 fL Normal 9.5-13.5 [facility] Comment on above: Performed By: #### G IPANEL #### [facility] [address] [address] [address] Layla Barrera PLT 184 103/ul Normal 150-450 [facility] Comment on above: Performed By: #### G IPANEL #### [facility] [address] [address] [address] Layla Barrera RBC 4.28 106/ul Critically low 4.70-6.10 [facility] Comment on above: Performed By: #### G IPANEL #### [facility] [address] [address] [address] Layla Barrera WBC 5.9 103/ul Normal 4.0-11.0 [facility] Comment on above: Performed By: #### G IPANEL #### [facility] [address] [place] [address] Dr. Layla Barrera CBC W/DIFFon 11-25-2021 ABS IMM GRANS 0.0 10*3/uL Normal 0.0-0.2 [facility] Comment on above: Performed By: #### 5 4916, 65564 #### [facility] [address] [place] [address], [facility] ABS NEUTROPHILS 3.6 10*3/uL Normal 1.6-7.6 [facility] Comment on above: Performed By: #### 5 0686, 91328 #### [facility] [address] [place] [address], [facility] Basophils (Bld) [#/Vol] 0.0 10*3/uL Normal 0.0-0.2 [facility] Comment on above: Performed By: #### 5 037, 50838 #### [facility] [address] [facility] [address], [place] Basophils/100 WBC (Bld) 0.4 % Normal 0.0-1.0 [facility] Comment on above: Performed By: #### 5 6505, 86565 #### [facility] [address] [place] [address], [facility] Eosinophils (Bld) [#/Vol] 0.2 10*3/uL Normal 0.0-0.5 [facility] Comment on above: Performed By: #### 5 6505, 87260 #### [facility] [address] [place] [address], [facility] Eosinophils/100 WBC (Bld) 2.2 % Normal 0.0-6.0 [facility] Comment on above: Performed By: #### 5 6505, 66843 #### [facility] [address] Erythrocyte distribution width (RBC) [Ratio] 13.6 % Normal 11.5-15.0 [facility] Comment on above: Performed By: #### 5 6505, 71661 #### [facility] [address] [place] [address], [facility] Hematocrit (Bld) [Volume fraction] 40.4 % Normal 39.0-50.0 [facility] Comment on above: Performed By: #### 5 6505, 09057 #### [facility] [address] [place] [address], [facility] Hemoglobin (Bld) [Mass/Vol] 13.7 g/dL Normal 13.0-17.0 [facility] Comment on above: Performed By: #### 5 6505, 41974 #### [facility] [address] [place] [address], [facility] IMMATURE GRANS 0.3 % Normal 0.0-1.0 [facility] Comment on above: Performed By: #### 5 6505, 76020 #### [facility] [address] [place] [address], [facility] Lymphocytes (Bld) [#/Vol] 2.4 10*3/uL Normal 1.2-4.0 [facility] Comment on above: Performed By: #### 5 6505, 85368 #### [facility] [address] [facility] [place] [address], [facility] Lymphocytes/100 WBC (Bld) 35.0 % Normal 20.0-45.0 [facility] Comment on above: Performed By: #### 5 6505, 59420 #### [facility] [address] [facility] [place] [address], [facility] MCH (RBC) [Entitic mass] 31.8 pg Normal 27.0-33.0 [facility] Comment on above: Performed By: #### 5 6505, 36777 #### [facility] [address] [facility] [address] MCHC (RBC) [Mass/Vol] 33.9 g/dL Normal 32.0-35.0 [facility] Comment on above: Performed By: #### 5 6505, 77092 #### [facility] [address] [place] [address], [facility] MCV (RBC) [Entitic vol] 93.7 fL Normal 82.0-98.0 [facility] Comment on above: Performed By: #### 5 6505, 86594 #### [facility] [address] [facility] [place] [address], [facility] Monocytes (Bld) [#/Vol] 0.6 10*3/uL Normal 0.1-1.0 [facility] Comment on above: Performed By: #### 5 6505, 63460 #### [facility] [address] [place] [address], [facility] MONOS 8.4 % Normal 5.0-12.0 [facility] Comment on above: Performed By: #### 5 6505, 79084 #### [facility] [address] [address], [facility] Neutrophils/100 WBC (Bld) 53.7 % Normal 40.0-72.0 [facility] Comment on above: Performed By: #### 5 650, 84860 #### [facility] [address] [place] [address], [facility] Nucleated RBC/100 WBC (Bld) [Ratio] 0 % Normal 0-0 [facility] Comment on above: Performed By: #### 5 650, 88222 #### [facility] [address] [place] [address], [facility] PLAT CNT 198 10*3/uL Normal 150-400 [facility] Comment on above: Performed By: #### 5 6505, 61884 #### [facility] [address] [place] [address], [facility] RBC (Bld) [#/Vol] 4.31 10*6/uL Normal 4.20-5.70 [facility] Comment on above: Performed By: #### 5 6505, 29152 #### [facility] [address] [place] [address], [facility] WBC (Bld) [#/Vol] 6.75 10*3/uL Normal 4.00-10.60 [facility] Comment on above: Performed By: #### 5 6505, 91284 #### [facility] [address] [place] [address], [facility] COMP METABOLIC PANELon 11-25 Albumin [Mass/Vol] 4.1 g/dL Normal 3.5-5.7 [facility] Comment on above: Performed By: #### 0 0121 #### [facility] [address] [place] [address], [facility] ALKALINE PHOSPH 87 IU/L Normal 34-104 [facility] Comment on above: Performed By: #### 0 0121 #### [facility] [address] [place] [address], [facility] ALT [Catalytic activity/Vol] 47 U/L Normal 7-52 [facility] Comment on above: Performed By: #### 0 0121 #### [facility] [address] [place] [address], [place] AST [Catalytic activity/Vol] 29 U/L Normal 13-39 [facility] Comment on above: Performed By: #### 0 0121 #### [facility] [address] [place] [address], [place] Bilirubin [Mass/Vol] 0.7 mg/dL Normal 0.3-1.0 [facility] Comment on above: Performed By: #### 0 0121 #### [facility] [address] [place] [address], [place] Calcium [Mass/Vol] 9.7 mg/dL Normal 8.6-10.3 [facility] Comment on above: Performed By: #### 0 0121 #### [facility] [address] [place] [address], [place] Chloride [Moles/Vol] 103 mmol/L Normal 98-107 [facility] Comment on above: Performed By: #### 0 0121 #### [facility] [address] [place] [address], [place] CO2 [Moles/Vol] 30 mmol/L Normal 21-31 [facility] Comment on above: Performed By: #### 0 0121 #### [facility] [address] [place] [address], [place] Creatinine [Mass/Vol] 1.06 mg/dL Normal 0.70-1.30 [facility] Comment on above: Performed By: #### 0 0121 #### [facility] [address] [place] [address], [place] GFR/1.73 sq M.predicted among blacks MDRD (S/P/Bld) [Vol rate/Area] mL/min/{1.73_m2} Normal >60 [facility] Comment on above: Result Comment: Calc ulation may not be valid for patients over 70 years Performed By: #### 0 0121 #### [facility] [address] [place] [address], [place] GFR/1.73 sq M.predicted among non-blacks MDRD (S/P/Bld) [Vol rate/Area] mL/min/{1.73_m2} Normal >60 [facility] Comment on above: Result Comment: Calc ulation may not be valid for patients over 70 years Performed By: #### 0 0121 #### [facility] [address] [place] [address], [place] Glucose [Mass/Vol] 94 mg/dL Normal 70-100 [facility] Comment on above: Performed By: #### 0 0121 #### [facility] [address] [place] [address], [place] Potassium [Moles/Vol] 4.7 mmol/L Normal 3.5-5.1 [facility] Comment on above: Performed By: #### 0 0121 #### [facility] [address] [place] [address], [place] Protein [Mass/Vol] 6.6 g/dL Normal 6.0-8.3 [facility] Comment on above: Performed By: #### 0 0121 #### [facility] [address] [place] [address], [place] Sodium [Moles/Vol] 138 mmol/L Normal 136-145 [facility] Comment on above: Performed By: #### 0 0121 #### [facility] [address] [place] [address], [place] Urea nitrogen [Mass/Vol] 17 mg/dL Normal 7-25 [facility] Comment on above: Performed By: #### 0 0121 #### [facility] [address] FREE THYROXINE INDEX T7on FTI 2.38 Normal 1.30-4.50 [facility] Comment on above: Performed By: #### T SH, CMP, T7, MG #### [facility] [address] [place] [address] Dr. Layla Barrera T3U 34.0 % Normal 33.0-40.0 [facility] Comment on above: Performed By: #### T SH, CMP, T7, MG #### [facility] [address] [place] [address] Dr. Layla Barrera T4 [Mass/Vol] 7.00 ug/dL Normal 4.50-12.10 [facility] Comment on above: Performed By: #### T SH, CMP, T7, MG #### [facility] [address] [place] [address] Dr. Layla Barrera MAGNESIUMon 11-25-2021 Magnesium [Mass/Vol] 1.7 mg/dL Critically low 1.8-2.4 [facility] Comment on above: Performed By: #### T SH, CMP, T7, MG #### [facility] [address] [place] [address] Dr. Layla Barrera PROF 14(COMP METB)on 022 Albumin [Mass/Vol] 3.5 g/dL Normal 3.4-5.0 [facility] Comment on above: Performed By: #### T SH, CMP, T7, MG #### [facility] [address] [place] [address] Dr. Layla Barrera Albumin/Globulin [Mass ratio] 1.1 {ratio} Normal [facility] Comment on above: Performed By: #### T SH, CMP, T7, MG #### [facility] [address] [place] [address] Dr. Layla Barrera ALP [Catalytic activity/Vol] 97 U/L Normal 46-116 [facility] Comment on above: Performed By: #### T SH, CMP, T7, MG #### [facility] [address] [place] [address] Dr. Layla Barrera ALT [Catalytic activity/Vol] 64 U/L Critically high 16-63 [facility] Comment on above: Performed By: #### T SH, CMP, T7, MG #### [facility] [address] [address] [address] Layla Barrera Anion gap [Moles/Vol] 11.6 mmol/L Normal [facility] Comment on above: Performed By: #### T SH, CMP, T7, MG #### [facility] [address] [address] [address] Layla Barrera AST [Catalytic activity/Vol] 27 U/L Normal 15-37 [facility] Comment on above: Performed By: #### T SH, CMP, T7, MG #### [facility] [address] [place] [address] Dr. Layla Barrera Bilirubin [Mass/Vol] 0.8 mg/dL Normal 0.2-1.0 [facility] Comment on above: Performed By: #### T SH, CMP, T7, MG #### [facility] [address] [place] [address] Dr. Layla Barrera Calcium [Mass/Vol] 9.0 mg/dL Normal 8.5-10.1 [facility] Comment on above: Performed By: #### T SH, CMP, T7, MG #### [facility] [address] [place] [address] Dr. Layla Barrera Chloride [Moles/Vol] 102 mmol/L Normal 98-107 [facility] Comment on above: Performed By: #### T SH, CMP, T7, MG #### [facility] [address] [place] [address] Dr. Layla Barrera CO2 [Moles/Vol] 27.3 mmol/L Normal 21.0-32.0 [facility] Comment on above: Performed By: #### T SH, CMP, T7, MG #### [facility] [address] [address] [address] Layla Barrera Creatinine [Mass/Vol] 1.15 mg/dL Normal 0.70-1.30 [facility] Comment on above: Performed By: #### T SH, CMP, T7, MG #### [facility] [address] [address] [address] Layla Barrera EGFR-AF MALDIVIAN >60 Normal >=60 [facility] Comment on above: Performed By: #### T SH, CMP, T7, MG #### [facility] [address] [address] [address] Layla Barrera EGFR-NON AF MALDIVIAN >60 Normal >=60 [facility] Comment on above: Performed By: #### T SH, CMP, T7, MG #### [facility] [address] [address] [address] Layla Barrera Globulin (S) [Mass/Vol] 3.3 g/dL Normal [facility] Comment on above: Performed By: #### T SH, CMP, T7, MG #### [facility] [address] [place] [address] Dr. Layla Barrera Glucose [Mass/Vol] 144 mg/dL Critically high 74-106 [facility] Comment on above: Performed By: #### T SH, CMP, T7, MG #### [facility] [address] [address] [address] Layla Barrera Potassium [Moles/Vol] 3.9 mmol/L Normal 3.5-5.1 [facility] Comment on above: Performed By: #### T SH, CMP, T7, MG #### [facility] [address] [address] [address] Layla Barrera Protein [Mass/Vol] 6.8 g/dL Normal 6.4-8.2 [facility] Comment on above: Performed By: #### T SH, CMP, T7, MG #### [facility] [address] [place] [address] Dr. Layla Barrera Sodium [Moles/Vol] 137 mmol/L Normal 136-145 [facility] Comment on above: Performed By: #### T SH, CMP, T7, MG #### [facility] [address] [address] [address] Layla Barrera Urea nitrogen [Mass/Vol] 16.0 mg/dL Normal 7.0-18.0 [facility] Comment on above: Performed By: #### T SH, CMP, T7, MG #### [facility] [address] [address] [address] Layla Barrera Urea nitrogen/Creatinin e [Mass ratio] 13.9 mg/mg Normal [facility] Comment on above: Performed By: #### T SH, CMP, T7, MG #### [facility] [address] [address] [address] Layla Barrera SEDIMENTATION RATEon 022 SED RATE 10 mm/hr Normal 0-10 [facility] Comment on above: Performed By: #### 5 6506, 88321 #### [facility] [address] TSHon 11-25-2021 TSH 2.406 uIU/mL Normal 0.358-3.740 [facility] Comment on above: Performed By: #### T SH, CMP, T7, MG #### [facility] [address] [place] [address] Dr. Layla Barrera TSH RANGE SEE BELOW Normal [facility] Comment on above: Result Comment: <0.3 4 UIU/ml HYPERTHYROID 0.34-5.60 UIU/ml EUTHYROID >5.60 UIU/ml HYPOTHYROID Performed By: #### T SH, CMP, T7, MG #### [facility] [address] [place] [address] Dr. Layla Barrera CBC W/DIFFon 05-27-2021 ABS IMM GRANS 0.0 10*3/uL Normal 0.0-0.2 [facility] Comment on above: Performed By: #### 5 0103 #### [facility] [address] [facility]. [address] ABS NEUTROPHILS 3.8 10*3/uL Normal 1.6-7.6 [facility] Comment on above: Performed By: #### 5 0103 #### [facility] [address] [place] [address], [facility] Basophils (Bld) [#/Vol] 0.0 10*3/uL Normal 0.0-0.2 [facility] Comment on above: Performed By: #### 5 0103 #### [facility] [address] [place] [address], [facility] Basophils/100 WBC (Bld) 0.6 % Normal 0.0-1.0 [facility] Comment on above: Performed By: #### 5 3 #### [facility] [address] [facility] [place] [address], [facility] Eosinophils (Bld) [#/Vol] 0.2 10*3/uL Normal 0.0-0.5 [facility] Comment on above: Performed By: #### 102 #### [facility] [address] [facility] [place] [address], [facility] Eosinophils/100 WBC (Bld) 2.7 % Normal 0.0-6.0 [facility] Comment on above: Performed By: #### 5 3 #### [facility] [address] [facility] Erythrocyte distribution width (RBC) [Ratio] 13.4 % Normal 11.5-15.0 [facility] Comment on above: Performed By: #### 3 #### [facility] [address] [facility] [place] [address], [facility] Hematocrit (Bld) [Volume fraction] 41.7 % Normal 39.0-50.0 [facility] Comment on above: Performed By: #### 5 3 #### [facility] [address] [facility] [place] [address], [facility] Hemoglobin (Bld) [Mass/Vol] 14.3 g/dL Normal 13.0-17.0 [facility] Comment on above: Performed By: #### 5 3 #### [facility] [address] [place] [address], [facility] IMMATURE GRANS 0.6 % Normal 0.0-1.0 [facility] Comment on above: Performed By: #### 5 0103 #### [facility] [address] [place] [address], [facility] Lymphocytes (Bld) [#/Vol] 2.5 10*3/uL Normal 1.2-4.0 [facility] Comment on above: Performed By: #### 5 0103 #### [facility] [address] [place] [address], [facility] Lymphocytes/100 WBC (Bld) 35.0 % Normal 20.0-45.0 [facility] Comment on above: Performed By: #### 5 3 #### [facility] [address] [place] [address], [facility] MCH (RBC) [Entitic mass] 31.6 pg Normal 27.0-33.0 [facility] Comment on above: Performed By: #### 5 3 #### [facility] [address] [place] [address], [facility] MCHC (RBC) [Mass/Vol] 34.3 g/dL Normal 32.0-35.0 [facility] Comment on above: Performed By: #### 5 3 #### [facility] [address] [place] [address], [facility] MCV (RBC) [Entitic vol] 92.3 fL Normal 82.0-98.0 [facility] Comment on above: Performed By: #### 5 0103 #### [facility] [address] [place] [address], [facility] Monocytes (Bld) [#/Vol] 0.5 10*3/uL Normal 0.1-1.0 [facility] Comment on above: Performed By: #### 5 3 #### [facility] [address] [place] [address], [facility] MONOS 7.4 % Normal 5.0-12.0 [facility] Comment on above: Performed By: #### 5 0103 #### [facility] [address] [place] [id number], [facility] Neutrophils/100 WBC (Bld) 53.7 % Normal 40.0-72.0 [facility] Comment on above: Performed By: #### 5 0103 #### [facility] [address] [place] [address], [facility] Nucleated RBC/100 WBC (Bld) [Ratio] 0 % Normal 0-0 [facility] Comment on above: Performed By: #### 5 0103 #### [facility] [address] [place] [address], [facility] PLAT CNT 194 10*3/uL Normal 150-400 [facility] Comment on above: Performed By: #### 5 0103 #### [facility] [address] [place] [address], [facility] RBC (Bld) [#/Vol] 4.52 10*6/uL Normal 4.20-5.70 [facility] Comment on above: Performed By: #### 5 0103 #### [facility] [address] [place] [address], [facility] WBC (Bld) [#/Vol] 7.02 10*3/uL Normal 4.00-10.60 [facility] Comment on above: Performed By: #### 5 0103 #### [facility] [address] [place] [address], [facility] LIVER BATTERYon 05-27-2021 Albumin [Mass/Vol] 4.1 g/dL Normal 3.5-5.7 [facility] Comment on above: Performed By: #### 9 9909 #### [facility] [address] [place] [address], [facility] ALKALINE PHOSPH 75 IU/L Normal 34-104 [facility] Comment on above: Performed By: #### 9 9909 #### [facility] [address] [place] [address], [facility] ALT [Catalytic activity/Vol] 42 U/L Normal 7-52 [facility] Comment on above: Performed By: #### 9 9909 #### [facility] [address] [place] [address], [facility] AST [Catalytic activity/Vol] 27 U/L Normal 13-39 [facility] Comment on above: Performed By: #### 9 9909 #### [facility] [address] [place] [address], [facility] Bilirubin [Mass/Vol] 0.5 mg/dL Normal 0.3-1.0 [facility] Comment on above: Performed By: #### 9 9909 #### [facility] [address] [place] [address], [facility] Bilirubin.direct [Mass/Vol] 0.1 mg/dL Normal 0.0-0.2 [facility] Comment on above: Performed By: #### 9 9909 #### [facility] [address] [place] [address], [facility] Protein [Mass/Vol] 6.8 g/dL Normal 6.0-8.3 [facility] Comment on above: Performed By: #### 9 9909 #### [facility] [address] [place] [address], [facility] Vital Signs Date Time Vital Sign Value Performing Clinician Facility 07-18-2023 14:14-0500 Blood Pressure Location [facility] [place] 07-18-2023 14:14-0500 Diastolic blood pressure 88 mm[Hg] Wade [facility] [place] 07-18-2023 14:14-0500 Heart rate 92 /min Wade LILLY [facility] [place] 07-18-2023 14:14-0500 Respiratory rate 16 /min Wade L[facility] [place] 07-18-2023 14:14-0500 Systolic blood pressure 138 mm[Hg] Wade LILLY [facility] 03-20-2023 14:45-0400 Diastolic blood pressure 92 mm[Hg] Nguyễn VELA [facility] 03-20-2023 14:45-0400 Mean blood pressure 111 mm[Hg] Nguyễn VELA [facility] 03-20-2023 14:45-0400 Systolic blood pressure 150 mm[Hg] Nguyễn VELA [facility] 03-20-2023 14:29-0400 Blood Pressure Location Nguyễn VELA [facility] 03-20-2023 14:29-0400 Diastolic blood pressure 91 mm[Hg] Nguyễn VELA [facility] 03-20-2023 14:29-0400 Heart rate 86 /min Nguyễn VELA [facility] 03-20-2023 14:29-0400 Systolic blood pressure 158 mm[Hg] Nguyễn VELA [facility] 12-28-2021 10:15-0400 Body height 177.8 cm Mayra Navarrete Work Phone: [facility] 250 DO Work Phone: 12-28-2021 10:15-0400 Body mass index (BMI) [Ratio] 34.15 kg/m2 Mayra M Hoy Work Phone: [facility] 250 DO Work Phone: 12-28-2021 10:15-0400 Body surface area Derived from formula 2.25 m2 Mayra Jesse Hoy Work Phone: [facility] 250 DO Work Phone: 12-28-2021 10:15-0400 Body weight 107.96 kg Mayra Jesse Hoy Work Phone: [facility] 250 DO Work Phone: 12-28-2021 10:15-0400 Diastolic blood pressure 70 mm[Hg] Mayra Jesse Hoy Work Phone: [facility] 250 DO Work Phone: 12-28-2021 10:15-0400 Heart rate 60 /min Mayra Jesse Hoy Work Phone: [facility] 250 DO Work Phone: 12-28-2021 10:15-0400 Systolic blood pressure 138 mm[Hg] Mayra Jesse Hoy Work Phone: [facility] 250 DO Work Phone: 12-28-2021 09:51-0400 Body height 177.8 cm Mayra Jesse Hoy Work Phone: [facility] 250 DO Work Phone: 12-28-2021 09:51-0400 Body mass index (BMI) [Ratio] 34.15 kg/m2 Mayra Jesse Hoy Work Phone: [facility] 250 DO Work Phone: 12-28-2021 09:51-0400 Body surface area Derived from formula 2.25 m2 Mayra Jesse Hoy Work Phone: [facility] 250 DO Work Phone: 12-28-2021 09:51-0400 Body weight 107.96 kg Mayra M Hoy Work Phone: [facility] 250 DO Work Phone: 12-28-2021 09:51-0400 Diastolic blood pressure 70 mm[Hg] Mayra M Hoy Work Phone: [facility] 250 DO Work Phone: 12-28-2021 09:51-0400 Heart rate 60 /min Mayra M Hoy Work Phone: [facility] 250 DO Work Phone: 12-28-2021 09:51-0400 Systolic blood pressure 146 mm[Hg] Mayra M Hoy Work Phone: [facility] 250 DO Work Phone: 12-22-2021 08:00-0400 53 1 Mayra Jesse Hoy Work Phone: [facility] 250 DO Work Phone: Comment on above: [id number] 12-08-2021 15:22-0400 Body height 177.8 cm Mayra Jesse Hoy Work Phone: [facility] DO Work Phone: 12-08-2021 15:22-0400 Body mass index (BMI) [Ratio] 34.15 kg/m2 Mayra Jesse Hoy Work Phone: [facility] 250 DO Work Phone: 12-08-2021 15:22-0400 Body surface area Derived from formula 2.25 m2 Mayra M Hoy Work Phone: [facility] 250 DO Work Phone: 12-08-2021 15:22-0400 Body weight 107.96 kg Mayra M Hoy Work Phone: [facility] 250 DO Work Phone: 12-08-2021 15:22-0400 Diastolic blood pressure 70 mm[Hg] Mayra M Hoy Work Phone: [facility] 250 DO Work Phone: 12-08-2021 15:22-0400 Heart rate 87 /min Mayra M Hoy Work Phone: [facility] 250 DO Work Phone: 12-08-2021 15:22-0400 Systolic blood pressure 138 mm[Hg] Mayra M Hoy Work Phone: [facility] 250 DO Work Phone: 12-08-2021 15:12-0400 Diastolic blood pressure 70 mm[Hg] Mayra M Hoy Work Phone: [facility] 250 DO Work Phone: 12-08-2021 15:12-0400 Systolic blood pressure 140 mm[Hg] Mayra M Hoy Work Phone: [facility] 250 DO Work Phone: 12-08-2021 15:08-0400 Body height 177.8 cm Mayra M Hoy Work Phone: [facility] 250 DO Work Phone: 12-08-2021 15:08-0400 Body mass index (BMI) [Ratio] 34.15 kg/m2 Mayra M Hoy Work Phone: [facility] 250 DO Work Phone: 12-08-2021 15:08-0400 Body surface area Derived from formula 2.25 m2 Mayra M Hoy Work Phone: [facility] 250 DO Work Phone: 12-08-2021 15:08-0400 Body weight 107.96 kg Mayra M Hoy Work Phone: [facility] 250 DO Work Phone: 12-08-2021 15:08-0400 Diastolic blood pressure 82 mm[Hg] Mayra Navarrete Work Phone: [facility] 250 DO Work Phone: 12-08-2021 15:08-0400 Heart rate 87 /min Mayra Navarrete Work Phone: [facility] DO Work Phone: 12-08-2021 15:08-0400 Systolic blood pressure 142 mm[Hg] Mayra Molina Homichelle Work Phone: [facility] 250 DO Work Phone: Encounters Encounter Date Encounter Type Care Provider Facility Start: 09-18-2023 ambulatory Nguyễn Gimlan ty:[facility] Start: 09-01-2023 ambulatory Wade R NILL Facility : [facility] Start: 08-22-2023 End: 08-23-2023 ambulatory Wade R NILL Facility: [facility] Start: 08-22-2023 End: 08-22-2023 Patient encounter procedure Wade R NILL General Surgery Nill/Said [facility] Start: 08-22-2023 End: 08-22-2023 ambulatory MD Mayra Navarrete Work Phone: [facility] Work Phone: Start: 08-22-2023 End: 08-22-2023 Departed Referred MD Mayra Navarrete Work Phone: [facility] Path Spec [facility] Start: 08-17-2023 End: 08-17-2023 ambulatory LUIS DANIEL BRUNNER [facility] Start: 08-16-2023 End: 08-16-2023 ambulatory TOO THOMPSON [facility] Start: 07-20-2023 End: 07-20-2023 ambulatory RADHA EARL Not Available Start: 07-18-2023 End: 07-19-2023 ambulatory Mayra Navarrete Facility: [facility] Start: 07-18-2023 End: 07-18-2023 Patient encounter procedure Wade Peter MAXX General Surgery Nill/Said [facility] Start: 04-05-2023 ambulatory MAYRA NAVARRETE [facility] Start: 04-05-2023 End: 04-05-2023 ambulatory MICHELLE Molina [facility] Start: 03-20-2023 End: 03-21-2023 ambulatory Nguyễn VELA Facility:[facility] Start: 03-20-2023 End: 03-20-2023 Patient encounter procedure Nguyễn Brittani VELA [facility] Start: 02-23-2023 End: 02-23-2023 ambulatory [facility] Start: 10-28-2022 DAYNA ORR, Provider : ALIYA YOUNG AUDIO VISUAL DESIGN ENGINEER 1,[id number], Status: Pen, Time: 10:00 AM Mayra Navarrete Work Phone: [facility] DO Work Phone: Start: 10-28-2022 Patient encounter procedure Mayra Navarrete Work Phone: [facility] DO Work Phone: Start: 10-28-[address] [facility] Start: 10-27-2022 End: 10-27-2022 ambulatory [facility] Start: 10-27-2022 Telephone encounter Mayra Navarrete Work Phone: [facility] 250 DO Work Phone: Start: 10-25-2022 End: 10-26-2022 ambulatory KWADWO CRUMP Facility:[facility] Start: 08-25-2022 End: 08-25-2022 ambulatory LUIS DANIEL BRUNNER [facility] Start: 06-20-2022 End: 06-21-[address] MAYRA NAVARRETE . Facility:[facility] Start: 03-11-2022 End: 03-12-[address] MAYRA NAVARRETE . Facility:[facility] Start: 01-25-2022 Rx Renewal Mayra Navarrete Work Phone: [facility] 600 DO Work Phone: Start: 12-30-2021 Chart Update Mayra Navarrete Work Phone: [facility] 250 DO Work Phone: Start: 12-28-2021 Office outpatient vi sit 25 minutes Mayra Navarrete Work Phone: [facility] 250 DO Work Phone: Start: 12-28-2021 Patient encounter procedure Mayra Navarrete Work Phone: [facility] DO Work Phone: Start: 12-28-[address] Mayra Navarrete Facility: Start: 12-08-2021 Office outpatient vi sit 25 minutes Mayra Navarrete Work Phone: [facility] 250 DO Work Phone: Start: 12-08-[address] Mayra Navarrete Facility: Start: 11-25-2021 End: 11-26-[address] MAYRA NAVARRETE . Facility: Start: 11-24-2021 End: 11-25-[address] MAYRA NAVARRETE . Facility:[facility] Procedures Date Procedure Procedure Detail Performing Clinician Start: 06-20-[address] MAYRA NAVARRETE . Comment on above: Performed By: #### GIPANEL #### [facility] [address] [place] [address] Dr. Layla Barrera Start: 04-09-2014 right knee [...] Nguyễn VELA heart catheterization Krish VELA Hemorrhoidectomy Nguyễn GOLDEN History of repair of musculotendinous cuff [...] Johnnie Deras, Status: Pen, Time: 10:00 AM [facility] 250 DO Work Phone: Start: 11-24-2022 FUV, Provider: Johnnie Deras, Status: Pen, Time: 2:00 PM FUV, Provider: Johnnie Deras, Status: Pen, Time: 2:00 PM [facility] 250 DO Work Phone: Start: 12-28-2021 FUV, Provider: Johnnie Deras, Status: Pen, Time: 9:45 AM FUV, Provider: Jhonnie Deras, Status: Pen, Time: 9:45 AM [facility] 250 DO Work Phone: Start: 12-22-2021 REST ONLY, Provider: SABINE HHVI NUCLEAR 01,[id number], Status: Pen, Time: 8:00 AM REST ONLY, Provider: SABINE HHVI NUCLEAR 01,[id number], Status: Pen, Time: 8:00 AM [facility] 250 DO Work Phone: Start: 12-21-2021 STRESSNUC2, Provider : SABINE HHVI NUCLEAR 01,[id number], Status: Pen, Time: 8:00 AM STRESSNUC2, Provider: SABINE HHVI NUCLEAR 01,[id number], Status: Pen, Time: 8:00 AM [facility] 250 DO Work Phone: Immunizations Immunization Date Immunization Notes Care Provider Rachele torres 07-26-2022 Fluad Quadrivalent 0 .5 ML Intramuscular Prefilled Syringe Mayra Nav[facility]rete [facility] Work Phone: 07-26-2022 influenza virus vaccine, unspecified formulation Nguyễn VELA [facility] 11-17-2021 Comirnaty 30 MCG/0.3 ML Intramuscular Suspension Mayra Nav[facility]rete [facility]: [facility] DO Work Phone: 11-17-2021 SARS-CoV-2 mRNA (lpbipktagaf-pgms-shsgm se) vaccine Nguyễn VELA [facility] 05-20-2021 Pfizer-BioNTech COVID-19 Vacc 30 MCG/0.3ML Intramuscular Suspension Mayra Navarrete Work Phone: [facility] Comment on above: Result Comment: 2022: [id number] 11-17-2020 SARS-CoV-2 (COVID-19 ) mRNA BNT-162b2 vax Nguyễn VELA [facility] 10-29-2020 Pfizer-BioNTech COVID-19 Vacc 30 MCG/0.3ML Intramuscular Suspension Mayra Navarrete Work Phone: [facility] Comment on above: Result Comment: 2022: [id number] 10-27-2020 SARS-CoV-2 (COVID-19 ) mRNA BNT-162b2 vax Nguyễn VELA [facility] 10-06-2020 Pfizer-BioNTech COVID-19 Vacc 30 MCG/0.3ML Intramuscular Suspension Mayra Navarrete Work Phone: [facility] Comment on above: Result Comment: 2022: [id number] 04-23-2020 influenza virus vaccine, unspecified formulation Nguyễn VELA [facility] 04-23-2020 influenza, high dose seasonal, preservative-free Mayra Navarrete Work Phone: [facility] DO Work Phone: 04-09-2018 influenza virus vaccine, unspecified formulation Mayra Navarrete Work Phone: [facility] DO Work Phone: 07-10-2017 pneumococcal polysaccharide vaccine, 23 valent Mayra M Hoy Work Phone: [facility] 250 DO Work Phone: 04-09-2016 influenza virus vaccine, unspecified formulation Mayra M Hoy Work Phone: [facility] 250 DO Work Phone: 04-09-2016 pneumococcal conjuga te vaccine, 13 valent Mayra M Hoy Work Phone: [facility] 250 DO Work Phone: 04-22-2015 influenza virus vaccine, unspecified formulation Nguyễnmaranda VELA [facility] 04-22-2015 influenza, injectabl e, quadrivalent, contains preservative Mayra M Hoy Work Phone: [facility] 250 DO Work Phone: 04-09-2015 influenza virus vaccine, unspecified formulation Mayra M Hoy Work Phone: [facility] 250 DO Work Phone: 05-22-2014 influenza virus vaccine, unspecified formulation Nguyễn VELA [facility] 05-22-2014 influenza, injectabl e, quadrivalent, contains preservative Mayra M Hoy Work Phone: [facility] 250 DO Work Phone: 07-10-2012 influenza virus vaccine, unspecified formulation Mayra M Hoy Work Phone: [facility] 250 DO Work Phone: 07-10-2011 pneumococcal polysaccharide vaccine, 23 valent Mayra M Hoy Work Phone: [facility] 250 DO Work Phone: influenza virus vaccine, unspecified formulation Mayra M Hoy Work Phone: [facility] 250 DO Work Phone: Comment on above: 2011 NEGATED: Highlighted row has not occurred!07-18-2023 influenza virus vaccine, unspecified formulation Wade LILLY [facility] [place] Payers Date Payer Category Payer Self-pay [id number] 1958 Medicare [id number] 1959 Private Health Insurance [id number] 1941 Unknown [id number] 2.16. [id number] 1941 Unknown [id number] 2.16. [id number] 1941 Unknown [id number] 2.16. [id number] 1941 Unknown [id number] 2.16.84 0.1.315088.3.579.2.593 1941 Unknown [id number] 2.16.84 0.1.673505.3.579.2.593 1941 Unknown [id number] 2.16.84 0.1.602190.3.579.2.593 1941 Unknown [id number] 2.16.84 0.1.367264.3.579.2.593 1941 Unknown [id number] 2.16.84 0.1.165327.3.579.2.593 1941 Unknown [id number] 2.16.8 40.1.148740.3.579.2.754 1941 Unknown [id number] 2.16.8 40.1.137516.3.579.2.754 1941 Unknown [id number] 2.16.84 0.1.051557.3.579.2.1259 1941 Unknown [id number] 2.16.8 40.1.403437.3.579.2.727 1941 Unknown [id number] 2.16.8 40.1.811118.3.579.2.727 1941 Unknown [id number] 2.16.8 40.1.545390.3.579.2.727 1941 Unknown [id number] 2.16.8 40.1.496084.3.579.2.727 1941 Unknown [id number] 2.16.8 40.1.392568.3.579.2.727 Medicare [id number] Unknown Unknown [id number] Unknown [id number] 2.16.8 [id number] Social History Date Type Detail Facility Caffeine use Caffeine use [place] [address] DO Work Phone: Comment on above: Coffee: 1 cup dailyS ac- Occasionally; Quit: 1991; Start: 05-31-2019 End: 03-20-2023 Tobacco smoking status Ex-smoker (finding) [facility] Tobacco smoking status Never [facility] Sex Assigned At Male [facility] Start: 1940 Sex Assigned At Male F [facility] Functional Status Date Assessment Result Facility 07-18-2023 Functional Status N/A [facility]hew [place] 03-20-2023 Functional Status N/A [facility] Clinical Notes 08-25-2022 to 08-17-2023 Note Date [...] eyes as of lately. He notes some jeqj-rn-gsbajpgv blurriness to his vision that comes and goes. 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 He notes he last saw his sticker operator about 5-6 months ago and all was [...] Butler MS4 and Dr. Brunner [facility] 08-16-2023 Note Attestation signed by Too Thompson MD at 08/19/2023 9:50 PM I saw, interviewed, examined and evaluated the patient with Nephrology fellow Dr. Faith Matias. I participated in the medical management of the patient. I reviewed the fellow's note and agree with the fellow's documentation in the note. Too Thompson MD Faculty, Division of Nephrology, Department of Medicine, [facility]. [facility] Patient: Travis Coburn; 82 y.o. Visit date: 08/16/23 Reason for today's visit: New patient, new Acute kidney injury SUBJECTIVE: BACKGROUND: Travis Coburn is a 82 y.o. male has a past medical history of Diabetes mellitus ([facility]), Hypertension, Polymyalgia rheumatica ([facility]), and Psoriatic arthritis ([facility]). Patient has history of Type [...] pe (more content not included)... [facility] 07-18-2023 Note Chief Complaint consultation for [...] smoker, quit more (more content not included)... [facility] Comment on above: Result Comment: Elec tronically Signed By: MAXX TURNER, Wade Steele\Date and Time Signed: 07/18/23 14:37 EST 06-09-2023 Note TC to patient notifi ed of nephrology referral has been sent. NS [facility] 06-09-2023 Note Pt called needing a referral for nephrology. Pt states he would like to set up an appointment in [place], discussed in telephone call with you. [facility] 03-20-2023 Hospital Discharge instructions Patient Education [...] urethra. Follow these instructions at home: Take bnmo-zbv-xvxzzhp and prescription medicines only as told by [...] provider. Document Revised: 01/12/2022 Document Reviewed: 01/12/2022 [employer] Patient Education 2022 [employer]. Follow Up Care 08/23/2021 11:50:10 With:MIRIAN TURNER, Nguyễn Peter, URL Address: [facility] [address] [place] [address] [phone] When:Within 6 Month(s) [facility] [place] 02-23-2023 Note Attestation signed by Luis Daniel [...] 3 months Keerthi Razo, MS4 [facility] 10-27-2022 Note Subjective Patient ID: Travis [...] hour(s)). No follow-ups on file. 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 High risk medication use Polyarthropathy Primary osteoarthritis, unspecified site Polymyalgia rheumatica ([facility]) 81 yo M who is [...] Medicine PGY-1 08/25/22 11:48 AM [facility] Evaluation + Plan note Future Appointments Appointment Date:09/18/2023 12:45:00 PM Scheduled Provider:Nguyễn VELA MD Location:[facility] Appointment Type:URO Office Visit [facility] Evaluation + Plan note Future Appointments Appointment Date:08/22/2023 01:40:00 PM Scheduled Provider:[facility]ade [facility]Y [facility]: Procedure 30 Appointment Date:09/18/2023 12:45:00 PM Scheduled Provider:[facility]guy[facility]n [facility]O Office Visit [facility] [place] Evaluation + Plan note Future Appointments Appointment Date:09/01/2023 01:40:00 PM Scheduled Provider:Wade LILLY MD [facility] Type: Established 15 Appointment Date:09/18/2023 12:45:00 PM Scheduled Provider:Nguyễn VELA MD [facility] Type:URO Office Visit General Surgery [place] Evaluation note No assessment inform ation available [facility] Work Phone: History of Present illness Narrative [...] will be reviewed at his next visit. [facility] [employer] DO Work Phone: History of Present illness [...] reviewed at his next visit. [facility] Work Phone: History of Present [...] and will attempt to implement our recommendations. [facility] Sudi[employer]ha DO Work Phone: Hospital course Narrative No data available for this section [facility] Hospital Discharge instructions No data available for this section General Surgery [employer] [facility] note No data available for this section [facility] Summary Purpose Family History No Family History [...] section and content) DATE CREATED AUTHOR 11/30/2021 [facility] DATE CREATED AUTHOR AUTHOR'S ORGANIZ ATION 12/31/2021 [facility] DATE CREATED AUTHOR AUTHOR'S ORGANIZ ATION 01/01/2022 [employer] DATE CREATED AUTHOR AUTHOR'S ORGANIZ ATION 10/29/2022 [facility] DATE CREATED AUTHOR AUTHOR'S ORGANIZ ATION 10/30/2022 [facility] DATE CREATED AUTHOR AUTHOR'S ORGANIZ ATION 04/12/2023 [facility] DATE CREATED AUTHOR AUTHOR'S ORGANIZ ATION 04/14/2023 [facility] Center DATE CREATED AUTHOR AUTHOR'S ORGANIZ ATION 07/21/[address] [facility] dical [facility] DATE CREATED AUTHOR AUTHOR'S ORGANIZ ATION 08/21/2023 [facility] DATE CREATED AUTHOR AUTHOR'S ORGANIZ ATION 08/24/2023 [facility] ical Center DATE CREATED AUTHOR AUTHOR'S ORGANIZ ATION 08/25/2023 [facility] Reason for Visit (unrecogniz ed section and content) Reason for Visit:Holter Lori tor:TRAVIS is here for the application of a 24 hour Holter monitor.Ordering Physician: Dr. Johnnie Deras, MICHELLEiagnosis: bradyNO equipment agreement signed. TRAVIS understands monitor is to be returned on: 10/31/2022Monitor number [id number] applied.Reason for Visit:Holter Monitor:TRAVIS is here for the application of a 24 hour Holter monitor.Ordering Physician: Dr. Johnnie Deras, MICHELLEiagnosis: bradyNO equipment agreement signed. TRAVIS understands monitor is to be returned on: 10/31/2022Monitor number [id number] applied.Holter monitor returned and downloaded.Holter monitor printed and placed on Dr. Naomi Hood MD desk to dictate in Dr. Johnnie Deras MD absenceReason for Visit:Holter Monitor:TRAVIS is here for the application of a 24 hour Holter monitor.Ordering Physician: Dr. Johnnie Deras, MDDiagnosis: bradyNO equipment agreement signed. TRAVIS understands monitor is to be returned on: 10/31/2022Monitor number [id number] applied.Holter monitor returned and downloaded.Holter monitor printed [...] End: August 22, 2023 Wade Lilly MD [facility] Attending Provider Active Start: August 22, 2023 [...] BE BASED ON THE PRIMARY CLINICAL RECORDS. [employer] provides no warranty or guarantee of the accuracy or completeness of information in this document.
== END 2023-08-22 12:26 | disposition home or self-care (01) ==
LOC: LAB 12:25
PROVIDERS: PCP Family Medicine; Visit Provider Surgery
DX: D48.5 Neoplasm of uncertain behavior of skin (principal)
CPT/HCPCS: 88305

== ENCOUNTER 2023-09-30 07:58 | Outpatient (OUT) | payer MEDICARE, OTHER, SELFPAY ==
--- NOTE | 2023-09-30 08:00 | CT_ITS ---
The [address] [address] Patient Name: JULIO OLIVAREZ MRN: [id number] date: 1940 Sex: M Assigned Patient Location: CT Current Patient Location: CT Accession/Order Number: [id number] Exam Date: 09/30/2023 08:10 Report Date: 09/30/2023 14:21 At the request of: MAYRA NAVARRETE Procedure: CT sinus wo con EXAM: CT sinus wo con HISTORY: Serous otitis media H65.90 COMPARISON: CT brain 02/28/2023 TECHNIQUE: Contiguous axial CT images of the sinuses obtained without contrast. Coronal and sagittal reconstructions performed. Dose reduction techniques were achieved by using automated exposure control and/or adjustment of mA and/or kV according to patient size and/or use of iterative reconstruction technique. FINDINGS: The paranasal sinuses are well-aerated without mucosal thickening or air-fluid level. The left frontal sinus and right sphenoid sinus are hypoplastic. There are bony septations within bilateral maxillary sinuses. There is slight rightward bony nasal septal deviation. There are no acute fracture, destructive lesion or sclerosis of bony structures. The mastoid air cells and middle ear cavities are clear. There is no proptosis. The extraocular muscles are intact. CT/CT sinus wo con IMPRESSION: The paranasal sinuses are clear and well-aerated without evidence of acute or chronic sinusitis. Electronically authenticated by: KALPESH LYLE Date: 09/30/2023 14:21
--- OUTSIDE RECORDS SUMMARY | 2023-09-30 08:02 | XMS_ITS | CCD ---
Author Organization [facility] Care Team Providers Care Senior Benefits Specialist Name Role Phone Mayra Navarrete Unavailable Unavailable Unavailable Augusta MORA, Dr. Johnnie Adrian Attending Unavailable Hoy, Dr. Mayra Olvera Primary Care Unavail able Liamuincristine II, Dr. Johnnie Adrian Referring Unavailable Hoy, Dr. Mayra Olvera Primary Care Unavail able Liamuinn II, Dr. Johnnie Adrian Referring Unavailable McGuinn II, Dr. Johnnie Adrian Attending Unavailable Hoy, Dr. Mayra Olvera Primary Care Unavail able Liamuincristine II, Dr. Johnnie Adrian Referring Unavailable McGuinn [...] Unavailable HOY ., DR NUNEZ Consulting Unavailable SUTTON, DR CJ Hernandes Consulting Unavailable HOY ., DR NUNEZ Admitting Unavailable HOY ., DR NUNEZ Attending Unavailable [facility] DR RIVAS Primary Care Unavailable MULUGETAY ., DR NUNEZ Consulting Unavailable KWADWO CRUMP [...] Unavailable MD Mayra Navarrete Primary Care Provider [phone] MD Wade Lilly Attending Provider Mayra Navarrete Primary Care Unavailable Wade Lilly Attending Unavailable Wade Lilly Admitting Unavailable Wade LILLY Attending Unavailable NILVikas, Wade Peter Attending Unavailable NILWade Bean Attending Unavailable Nguyễn VELA Attending Unavailable Nguyễn VELA Attending Unavailable Wade LILLY Attending Unavailable Mayra Navarrete Referring Unavailable Allergies Allergy Classification Reported Allergen(s) Allergy Type Date of Onset Reaction(s) Facility (11 sources) bee pollen Allergy to substance (finding) [facility] 250 DO Work Phone: (19 sources) Penicillins; 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: [Penicillins] Allergy to drug (finding) 9 Anaphylaxis (disorder) [facility] (11 sources) Animal dander - Cats Allergy to substance (finding) [facility] y 250 DO Work Phone: (1 source) Penicillins Drug allergy (disorder) [facility] Repository (7 sources) Latex; 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: [LATEX] Drug allergy 2 Unknown (qualifier value) [facility] (5 sources) Sulfonamides (Antibiotic); 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: [sulfa drugs] Propensity to adverse reactions to drug [facility] [place] (3 sources) Sulfonamides (Antibiotic); 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: [SULFA (SULFONAMIDE ANTIBIOTICS)] Propensity to adverse reactions to drug (disorder) 9 Anaphylaxis [facility] Repository (2 sources) penciclovir; 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: [penciclovir] Drug Allergy 1 anaphylaxis [facility] (1 source) Penicillins Drug allergy (disorder) 9 [facility] Repository Medications Current Medications Medication Drug Class(es) [...] Active amitriptyline hydrochloride 50 mg oral tablet (17 sources) Tricyclic Antidepressant Start: 09-13-2017 take 1 tablet by mouth once daily at bedtime amitriptyline 50 mg Tab 50 mg = 1 tab(s), Oral, Once a day (at bedtime), Refills(s) 0 Start Date: 07/14/23 Status: Ordered Start: 03-26-2014 [facility] 2 tablets [facility] once daily at bed[facility] Elavil 25 mg Tab 50 mg = 2 tab(s), Oral, Once a day (at bedtime) Start Date: 03/26/14 Status: Ordered take 1 tablet by mouth at bedtim e Elavil 25 MG TABS TAKE 1 TABLET AT BEDTIME. Quantity: 0 Refills: 0 Ordered: 08-Dec-2021 DO Active aspirin 81 mg oral tablet (17 sources) Platelet Aggregation Inhibitor, Nonsteroidal Anti-inflammatory Drug Start: 06-29-2018 aspirin 81 mg, Or al, Daily, taking 2 times per week, Refills(s) 0, Blood Thinner Start Date: 06/29/18 Status: Ordered Start: 06-29-2018 End: 05-31-2019 take 81 mg by mouth two times weekly Aspirin Discontinued 81 MG PO Twice a Week May 30, 2019 12:00am May 31, 2019 11:36am take 1 tablet by rasta two times weekly Aspirin EC 81 MG Oral Tablet Delayed Release 1 tablet twice weekly Quantity: 25 Refills: 3 Ordered: 28-Dec-2021 Johnnie Deras MD Active calcium carbonate 1500 mg oral [...] 13, 2017 12:00am Folate 1 mg Tab (5 sources) Start: 08-23-2019 Folate 1 mg Ta b Refills(s) 0 Start Date: 08/23/19 Status: Ordered folic acid 1 mg oral tablet (13 sources) Start: 05-30-2019 End: 05-30-2019 Folic Acid Active 1 MG PO Daily May 30, 2019 12:00am Does not take on Monday furosemide 20 mg oral tablet (17 sources) Loop Diuretic Start: 09-13-2017 take 20 mg by mouth once daily Lasix 20 mg, Oral, Daily, Refills(s) 0, diuretic/water pill Start Date: 06/29/18 Status: Ordered glimepiride 1 mg oral tablet (5 sources) Sulfonylurea Start: 07-14-2023 take 1 tablet [...] mg / irbesartan 300 mg oral tablet (15 sources) Thiazide Diuretic, Angiotensin 2 Receptor Sapphire [...] 06/29/18 Status: Ordered take 2 tablets by mo [facility] once daily metFORMIN HCl - 500 MG Oral Tablet TAKE 2 TABLETS DAILY. Quantity: 0 Refills: 0 Ordered: 08-Dec-2021 DO Active 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 5 mg oral tablet (17 sources) Folate Analog Metabolic Inhibitor Start: 07-14-2023 [...] Takes on Monday take 4 tablets by mo ut every week Methotrexate 2.5 MG Oral Tablet TAKE 4 TABLETS WEEKLY. Quantity: 0 Refills: 0 Ordered: 28-Dec-2021 DO Active take 1 tablet by rasta every week Methotrexate Sodium 2.5 MG Oral Tablet TAKE 1 TABLET WEEKLY. Quantity: 0 Refills: 0 Ordered: 08-Dec-2021 DO Active 24 hr oxybutynin chloride 5 mg extended release oral tablet (5 sources) Cholinergic Muscarinic Antagonist Start: 03-20-2023 take 1 tablet by mouth at bedtime oxybutynin 5 mg ER Tab 5 mg = 1 tab(s), Oral, Bedtime, # 30 tab(s), Refills(s) 8, Pharmacy: [facility]/pharmacy #[id number], 175, cm, 03/20/23 14:33:00 EDT, Height/Length Dosing, 112, kg, 03/20/23 14:33:00 EDT, Weight Dosing Start Date: 03/20/23 Status: Ordered pantoprazole 40 mg extended release oral tablet (17 sources) Proton Pump Inhibitor Start: 06-29-2018 take [...] Refills: 0 Ordered: 08-Dec-2021 DO Active Miralax (4 sources) Osmotic Laxative Start: 07-14-2023 take 17 g by mouth once daily MiraLax 17 gm, Oral, Daily, Refill(s) 0 Start Date: 07/14/23 Status: Ordered predniSONE 2.5 mg oral tablet (7 sources) Start: 07-18-2023 take 2 tablets by [...] 3:00pm rosuvastatin calcium 5 mg oral tablet (17 sources) HMG-CoA Reductase Inhibitor Start: 12-01-2020 take [...] 12:00am May 30, 2019 3:02pm Vitamin D3 (5 sources) Start: 06-29-2018 Vitamin D3 Ora l, Daily, Refills(s) 0, Prophylaxis Start Date: 06/29/18 Status: Ordered Completed/Discontinued Medications Medication Drug Class(es) Dates Sig (Normalized) Sig (Original) 120 actuat budesonide 0.16 mg/actuat / formoterol fumarate 0.0045 mg/actuat metered dose inhaler (1 source) Corticosteroid, beta2-Adrenergic Agonist Start: 09-13-2017 End: 05-30-2019 take 1 puff(s) by inhalation twice daily Budesonide-Formot gregoria (Symbicort) 160-4.5 mcg/actuation Hfa Aerosol Inhaler Discontinued [...] Date Documented Da te Episodic/Chronic Abdominal hernia (4 sources) Hiatal hernia 07-14-2023 Episodic Abdominal pain (5 sources) Epigastric pain 12-01-2020 Episodic Anxiety disorders (4 sources) Anxiety 07-14-2023 Chronic Calculus of urinary tract (11 sources) History of calculus of kidney; 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: [Personal history of urinary calculi] Onset: 3 Episodic Cardiac dysrhythmias (4 sources) 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 Cardiac [...] Onset: 3 Episodic Diabetes mellitus without complication (9 sources) Type 2 diabetes mellitus without complications; 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: [Diabetes mellitus] Onset: 2 Chronic Diabetes mellitus without complication (1 source) Other abnormal glucose; 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: [OTHER ABNORMAL GLUCOSE] Onset: 3 Episodic Disorders of lipid metabolism (16 sources) Hyperlipidemia; 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: [Other and unspecified hyperlipidemia] Onset: 3 07-14-2023 Chronic Esophageal disorders (5 sources) Gastroesophageal reflux disease 08-21-2019 Chronic Essential hypertension (15 sources) Benign essential hypertension; 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: [Benign essential hypertension] 07-14-2023 Chronic Genitourinary symptoms and ill-defined conditions (17 sources) Urgent desire to urinate; 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: [Urgency of urination] Onset: 3 Episodic Headache; including migraine (4 sources) Migraine 07-14-2023 Chronic Hyperplasia of prostate (7 sources) Benign prostatic hyperplasia without lower urinary tract symptoms; 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: [Benign prostatic hypertrophy with outflow obstruction] Onset: 2 Chronic Inflammatory conditions of male genital organs (5 sources) Prostatitis 08-21-2019 Episodic Malaise and fatigue (15 sources) Fatigue; 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: [Other malaise and fatigue] Onset: 3 Episodic Nausea and vomiting (5 sources) Nausea and vomiting 12-01-2020 Episodic Neoplasms of unspecified nature or uncertain behavior (6 sources) Neoplasm of uncertain behavior of skin; 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: [Neoplasm of uncertain behavior of skin] Onset: 4 Episodic Nutritional deficiencies (5 sources) Vitamin D deficiency, unspecified; 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: [Vitamin D deficiency] Onset: 3 07-14-2023 Chronic Nutritional deficiencies (4 sources) Cobalamin deficiency 07-14-2023 Episodic Osteoarthritis (2 sources) Primary osteoarthritis, unspecified site; 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: [Primary osteoarthritis, unspecified site] Onset: 3 Chronic Other connective tissue disease (17 sources) Polymyalgia rheumatica; 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: [Polymyalgia rheumatica] Onset: [...] of COVID-19] Episodic Other infections; including parasitic (4 sources) History of Helicobacter pylori infection 07-14-2023 Episodic Other inflammatory condition of skin (5 sources) Psoriasis 08-23-2019 Chronic Other inflammatory condition of skin (4 sources) Psoriatic arthritis 07-14-2023 Chronic Other inflammatory condition of skin (2 sources) Arthropathic psoriasis, unspecified; 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, unspecified] Onset: 3 Chronic Other liver diseases (1 source) Fatty (change of) liver, not elsewhere classified; 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: [FATTY CHANGE LIVER NEC] Onset: 2 Chronic Other liver diseases (5 sources) Steatosis of liver 12-01-2020 Chronic Other lower respiratory disease (11 sources) Dyspnea on exertion; 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: [Shortness of breath] Episodic Other lower respiratory disease (11 sources) Dyspnea; 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: [Other respiratory abnormalities] Episodic Other male genital disorders (1 source) Male erectile dysfunction, unspecified; 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: [Erectile dysfunction] Onset: 3 Chronic Other male genital disorders (5 sources) Impotence 08-21-2020 Chronic Other nervous system disorders (1 source) Hereditary and idiopathic neuropathy, unspecified; 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: [HEREDITARY IDIOPATH NEUROPATHY UNS] Onset: 2 Chronic Other nervous system disorders (4 sources) Neuropathy 07-14-2023 Chronic Other non-epithelial cancer of skin (4 sources) Basal cell carcinoma of skin; 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: [Basal cell carcinoma of skin, unspecified] Onset: 4 Episodic Other non-traumatic joint disorders (2 sources) Polyarthritis, unspecified; 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: [Polyarthritis, unspecified] Onset: 2 Chronic Other nutritional; endocrine; and metabolic disorders (16 sources) Obesity; 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: [Obesity, unspecified] 03-26-2014 Chronic Other nutritional; endocrine; and metabolic disorders (5 sources) Body mass index 30+ - obesity 12-01-2020 Chronic Other nutritional; endocrine; and metabolic disorders (5 sources) Loss of appetite 12-01-2020 Episodic Other nutritional; endocrine; and metabolic disorders (5 sources) Weight loss 12-01-2020 Episodic Other screening for suspected conditions (not mental disorders or infectious disease) (15 sources) Encounter for screening for malignant neoplasm of prostate; 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: [Elevated prostate specific antigen [PSA]] Onset: 2 Episodic Pathological fracture (1 source) Age-related osteoporosis with current pathological fracture, vertebra(e), initial encounter for fracture; 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: [Age-related osteoporosis with current pathological fracture, vertebra(e), initial encounter for fracture] Onset: 3 Episodic Residual codes; unclassified (15 sources) Sleep apnea; 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: [Unspecified sleep apnea] 07-14-2023 Chronic Residual codes; unclassified (1 source) Encounter for procedure for purposes other than remedying health state, unspecified; 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: [Encounter for procedure for purposes other than remedying health state, unspecified] Onset: 3 Episodic Screening and history of mental health and substance abuse codes (16 sources) Ex-smoker; 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: [Personal history of tobacco use] 08-23-2019 Episodic Comment on above: Quit: 1991; Unclassified (1 source) Drug therapy finding 08-23-2019 Unclassified (1 source) 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; 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: [long-term (current) use of antimetabolite agent] Onset: 2 Past or Other Problems Problem Classification Problem Date Documented Da te Episodic/Chronic Other aftercare (2 sources) Other fdc (current) drug therapy; 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: [Other terminal press operator (current) drug therapy] Onset: 08-25-2022 Episodic Other gastrointestinal disorders (1 source) Diarrhea, unspecified; 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: [DIARRHEA UNSPECIFIED] Onset: 03-18-2022 Episodic Unclassified (1 source) 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; 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: [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] Onset: 08-17-2023 Results Test Name Value Interpretation Reference Range Facil ity Ambulatory Visit Summaryon 0 09-13-2023 Ambulatory Visit Summary TRAVIS COBURN :1940 Visit Date:09/13/2023 Ambulatory Visit Instructions Your Care Team Attending [...] rosuvastatin (rosuvastatin 5 mg Tab) Procedures Performed Excision of basal cell carcinoma (08/22/2023), right knee arthroscopy (04/09/2014), Cystoscopic removal of ureteric stent (02/25/2003), Arthroscopic knee operation, Colonoscopy, Cystoscopy, Cystoscopy, Esophagogastroduodeno scopy, ESWL - Extracorporeal shockwave lithotripsy for renal calculus, Excision of breast mass, H/O repair of rotator cuff..., heart catheterization, Hemorrhoidectomy, Prostate Surgery, Repair of elbow, Shoulder Surgery. What to do next Scheduled Follow-Up Appointments Monday. 2023 11:30 AM EDT With: MIRIAN TURNER, Nguyễn Peter Where: [facility] General Surgery Office/Clini c Noteon 09-13-2023 General Surgery Office/Clinic Note Chief Complaint follow up skin lesion excision HPI Staff 22 day post in-office excisional biopsy right lower extremity lesion. Denies soreness, bleeding or drainage. Sutures intact. History of Present Illness 3 weeks s/p excision basal cell carcinoma right LE; doing well, no pain or drainage from incision. Review of Systems ROS - Provider Constitutional: [...] weakness. Skin: no changing moles, no rash, no skin lumps. Neurologic: no seizures, no epilepsy, [...] are negative or noncontributory. Physical Exam skin: incision without drainage or nodules, minimal erythema around sutures. Assessment/Plan 1. Superficial basal cell carcinoma (C44.91: Basal cell carcinoma of skin, unspecified) sutures removed, doing well, call with problems/questions. Follow-up No qualifying data [...] Psoriasis Psoriatic arthritis Sinus arrhythmia Sleep apnea Superficial basal cell carcinoma Urinary frequency Urinary urgency Vitamin B 12 deficiency Vitamin D deficiency Weight loss Historical Epigastric pain Loss of appetite Nausea with vomiting Procedure/Surgical History Excision of basal cell carcinoma (08/22/2023), right knee arthroscopy (04/09/2014), Cystoscopic removal of [...] influenza virus vaccine, inactivated 07/26/2022 Recorded SARSCoV2 mRNA(atilio valdez) vac 11/17/2021 Recorded SARS-CoV-2 (COVID-19) mRNA BNT-162b2 vax 05/20/2021 Recorded 2023-03-20: [id number] SARS-CoV-2 (COVID-19) mRNA BNT-162b2 vax 11/17/2020 Recorded SARS-CoV-2 (COVID-19) mRNA BNT-162b2 vax 10/29/2020 Recorded 2023-03-20: [id number] SARS-CoV-2 (COVID-19) mRNA BNT-162b2 vax 10/27/2020 Recorded SARS-CoV-2 (COVID-19) mRNA BNT-162b2 vax 10/06/2020 Recorded 2023-03-20: TPV75 influenza virus vaccine, inactivated 04/23/2020 Recorded influenza virus vaccine, inactivated 04/22/2015 Recorded influenza virus vaccine, inactivated 05/22/2014 Recorded [facility] Comment on above: Result Comment: Elec tronically Signed By: MAXX TURNER, Wade Peter\.br\Date and Time Signed: 09/13/23 15:19 EST Ambulatory Visit Summaryon 0 09-01-2023 Ambulatory Visit Summary TRAVIS COBURN :1940 Visit Date:09/01/2023 Ambulatory Visit Instructions Your Care Team Attending Physician - Wade LILLY MD Primary Care Physician - Mayra Navarrete [...] rosuvastatin (rosuvastatin 5 mg Tab) Procedures Performed Excision of basal cell carcinoma (08/22/2023), right knee arthroscopy (04/09/2014), Cystoscopic removal of [...] TURNER, Nguyễn Peter Where: [facility] General Surgery Office/Clini c Noteon 09-01-2023 General Surgery Office/Clinic Note Chief Complaint follow up in-office excisional biopsy HPI Staff 10 day post in-office excisional biopsy right posterior calf. History of Present Illness 10 days s/p excisional biopsy nonhealing lesion right posterior calf; doing well, some itching, no pain or drainage; pathology consistent with superficial basal cell carcinoma, to edge of specimen. Review of Systems ROS - Provider Constitutional: [...] weakness. Skin: no changing moles, no rash, no skin lumps. Neurologic: no seizures, no epilepsy, [...] are negative or noncontributory. Physical Exam skin: incision healing well, no drainage or ecchymoses; minimal erythema around sutures. Assessment/Plan 1. Superficial basal cell carcinoma (C44.91: Basal cell carcinoma of skin, unspecified) doing well, some sutures removed; follow up next week to remove remaining sutures; will monitor for recurrence, not planning on reexcision unless recurrent nodule develops. Follow-up No qualifying data available Problem List/Past [...] Psoriasis Psoriatic arthritis Sinus arrhythmia Sleep apnea Superficial basal cell carcinoma Urinary frequency Urinary urgency Vitamin B 12 deficiency Vitamin D deficiency Weight loss Historical Epigastric pain Loss of appetite Nausea with vomiting Procedure/Surgical History Excision of basal cell carcinoma (08/22/2023), right knee arthroscopy (04/09/2014), Cystoscopic removal of [...] influenza virus vaccine, inactivated 07/26/2022 Recorded SARSCoV2 mRNA(xktanqjsf-nyng-n ucros) vac 11/17/2021 Recorded SARS-CoV-2 (COVID-19) mRNA BNT-162b2 vax 05/20/2021 Recorded 2023-03-20: [id number] SARS-CoV-2 (COVID-19) mRNA BNT-162b2 vax 11/17/2020 Recorded SARS-CoV-2 (COVID-19) mRNA BNT-162b2 vax 10/29/2020 Recorded 2023-03-20: [id number] SARS-CoV-2 (COVID-19) mRNA BNT-162b2 vax 10/27/2020 Recorded SARS-CoV-2 (COVID-19) mRNA BNT-162b2 vax 10/06/2020 Recorded 2023-03-20: TPV75 influenza virus vaccine, in (more content not included)... [facility] Comment on above: Result Comment: Elec tronically Signed By: MAXX TURNER, Wade Peetr\.br\Date and Time Signed: 09/01/23 14:34 EST Pathology Noteon 08-28-2023 Pathology Note [id number] [id number] [facility] Ambulatory Visit Summaryon 0 08-22-2023 Ambulatory Visit [...] to do next Scheduled Follow-Up Appointments Monday 12:45 PM EDT With: MIRIAN TURNER, Nguyễn Peter Where: [facility] Lydia [facility] General Surgery Office/Clini c Noteon 08-22-2023 [...] influenza virus vaccine, inactivated 07/26/2022 Recorded SARSCoV2 mRNA(uzzezafst-njro-d ucros) vac 11/17/2021 Recorded SARS-CoV-2 (COVID-19) mRNA BNT-162b2 vax 05/20/2021 Recorded 2023-03-20: TPV75 SARS-CoV-2 (COVID-19) mRNA BNT-162b2 vax 11/17/2020 Recorded SARS-CoV-2 (COVID-19) mRNA BNT-162b2 vax 10/29/2020 Recorded 2023-03-20: TPV75 SARS-CoV (more content not included)... [facility] Comment on above: Result Comment: Elec tronically Signed By: Wade LILLY MD\.br\Date and Time Signed: 08/22/23 14:34 EST [place] 08-22-2023 L Specimen: [id number] Received: 08/23/23 Status: SOUKasie Req Num: [id number] Spec Type: Surgical Subm Dr: Wade Lilly MD FACS Tissues: A Skin-Other than Cyst, tag, debridement or plastic repair (RT POST CALF) Procedures: HE/3, Gross/Micro L4 Age/ Patient Sex Location Account Attending Physician Travis Coburn 82/M LABELL [id number] Wade Lilly MD FACS SPEC NUM: [id number] RECD: 08/23/23 STATUS: JUAN LUIS REAlexis NUM: [id number] APRIL: 08/22/23- SUBM DR: Wade Lilly MD FACS ENTERED: 08/23/23 [facility] DR: Lydia,Lab SPEC TYPE: Surgical DEPT: NICOLA TENA ENTERED BY: [id number] RECV BY: [id number] ORDERED: , Gross/Micro L4 ORDERED: , Gross/Micro L4 Pathological Diagnosis Skin Lesion, Right [...] - Tips A2-A3 - Remainder CPT Codes 77437 -------- -------- Specimen: [id number] Received: 08/23/23 Status: JUAN LUIS Juárez Num: [id number] Spec Type: Surgical Subm Dr: Wade Lilly MD FACS Tissues: A Skin-Other than Cyst, tag, debridement or plastic repair (RT POST CALF) Procedures: , Gross/Micro L4 -------- Patient: Travis Coburn [id number] (Continued) -------- Signed (signature on file) Joon Bermudez MD 08/24/23 2207 Normal [facility] CBC WITH AUTO DIFFERENTIALon 08-17-2023 Basophils (Bld) [#/Vol] 0.04 10*3/uL Normal 0.00-0.20 [facility] Comment on above: Performed By: #### L [id number] ####[facility] (BEAKER)[address] [facility] [address] Basophils/100 WBC (Bld) 0.6 % Normal 0.0-1.0 [facility] Comment on above: Performed By: #### L [id number] ####[facility] (BEAKER)[address] [facility] [address] Eosinophils (Bld) [#/Vol] 0.12 10*3/uL Normal 0.00-0.50 [facility] Comment on above: Performed By: #### L [id number] ####[facility] (BEAKER)[address] [address] Eosinophils/100 WBC (Bld) 1.8 % Normal 0.0-6.0 [facility] Comment on above: Performed By: #### L [id number] ####[facility] (BEAKER)[address] [place] [address] Erythrocyte distribution width (RBC) [Ratio] 13.9 % Normal 11.5-15.0 [facility] Comment on above: Performed By: #### L [id number] ####[facility] (BEAKER)[address] [place] [address] ERYTHROCYTE MEAN CORPUSCULAR HEMOGLOBIN CONCENTRATION (G/DL) BY AUTOMATED 34.0 g/dL Normal 32.0-35.0 [facility] Comment on above: Performed By: #### L [id number] ####[facility] (BEAKER)[address] [place] [address] Hematocrit (Bld) [Volume fraction] 42.0 % Normal 39.0-55.0 [facility] Comment on above: Performed By: #### L [id number] ####[facility] [place] [address] Hemoglobin (Bld) [Mass/Vol] 14.3 g/dL Normal 13.0-17.0 [facility] Comment on above: Performed By: #### L [id number] ####[facility] (BEAKER)[address] [place] [address] Immature granulocytes (Bld) [#/Vol] 0.04 10*3/uL Normal 0.00-0.20 [facility] Comment on above: Performed By: #### L [id number] ####[facility] (BEAKER)[address] [place] [address] Immature granulocytes/100 WBC (Bld) 0.6 % Normal 0.0-1.0 [facility] Comment on above: Performed By: #### L [id number] ####[facility] (BEAKER)[address] [place] [address] Lymphocytes (Bld) [#/Vol] 1.67 10*3/uL Normal 1.20-4.00 [facility] Comment on above: Performed By: #### L [id number] ####[facility] (BEAKER)[address] [place] [address] Lymphocytes/100 WBC (Bld) 25.6 % Normal 20.0-45.0 [facility] Comment on above: Performed By: #### L [id number] ####[facility] (BEAKER)[address] [place] [address] MCH (RBC) [Entitic mass] 31.9 pg Normal 27.0-33.0 [facility] Comment on above: Performed By: #### L [id number] ####[facility] (BEAKER)[address] [place] [address] MCV (RBC) [Entitic vol] 93.8 fL Normal 82.0-98.0 [facility] Comment on above: Performed By: #### L [id number] ####[facility] (BEAKER)[address] [place] [address] Monocytes (Bld) [#/Vol] 0.49 10*3/uL Normal 0.10-1.00 [facility] Comment on above: Performed By: #### L [id number] ####[facility] LAB (BEAKER)[address] [place] [address] Monocytes/100 WBC (Bld) 7.5 % Normal 5.0-12.0 [facility] Comment on above: Performed By: #### L [id number] ####[facility] LAB (BEAKER)[address] [place] [address] Neutrophils (Bld) [#/Vol] 4.17 10*3/uL Normal 1.60-7.60 [facility] Comment on above: Performed By: #### L [id number] ####[facility] LAB (BEAKER)[address] [place] [address] Neutrophils/100 WBC (Bld) 63.9 % Normal 40.0-72.0 [facility] Comment on above: Performed By: #### L [id number] ####[facility] LAB (BEAKER)[address] [place] [address] NRBC (PER 100 WBCS) BY AUTOMATED COUNT 0.0 % Normal 0 [facility] Comment on above: Performed By: #### L [id number] ####[facility] LAB (BEAKER)[address] [place] [address] PLATELETS (10*3/UL) IN BLOOD AUTOMATED COUNT 186 10*3/uL Normal 150-400 [facility] Comment on above: Performed By: #### L [id number] ####[facility] LAB ([facility])[address] [place] [address] RBC (Bld) [#/Vol] 4.48 10*6/uL Normal 4.20-5.70 [facility] Comment on above: Performed By: #### L [id number] ####[facility] LAB ([facility])[address] [place] [address] WBC (Bld) [#/Vol] 6.53 10*3/uL Normal 4.00-10.60 [facility] Comment on above: Performed By: #### L [id number] ####[facility] LAB ([facility])[address] [place] [address] COMPREHENSIVE METABOLIC PANE [place] 08-17-2023 Albumin [Mass/Vol] 4.0 g/dL Normal 3.5-5.7 [facility] Comment on above: Performed By: #### L [id number] ####[facility] LAB ([facility])[address] [place] [address] ALP [Catalytic activity/Vol] 98 U/L Normal 34-104 [facility] Comment on above: Performed By: #### L [id number] ####[facility] LAB ([facility])[address] [place] [address] ALT [Catalytic activity/Vol] 25 U/L Normal 7-52 [facility] Comment on above: Performed By: #### L [id number] ####[facility] LAB ([facility])[address] [place] [address] Anion gap [Moles/Vol] 12 mmol/L Normal 7-20 [facility] Comment on above: Performed By: #### L [id number] ####[facility] LAB ([facility])[address] [place] [address] AST [Catalytic activity/Vol] 19 U/L Normal 13-39 [facility] Comment on above: Performed By: #### L [id number] ####[facility] ([facility] [place] [address] Bilirubin [Mass/Vol] 0.5 mg/dL Normal 0.3-1.0 [facility] Comment on above: Performed By: #### L [id number] ####[facility] ([facility] [place] [address] Calcium [Mass/Vol] 8.8 mg/dL Normal 8.6-10.3 [facility] Comment on above: Performed By: #### L [id number] ####[facility] [place] [address] Chloride [Moles/Vol] 102 mmol/L Normal 98-107 [facility] Comment on above: Performed By: #### L [id number] ####[facility] ([facility] [place] [address] CO2 [Moles/Vol] 27 mmol/L Normal 21-31 [facility] Comment on above: Performed By: #### L [id number] ####[facility] ([facility] [place] [address] Creatinine [Mass/Vol] 1.12 mg/dL Normal 0.70-1.30 [facility] Comment on above: Performed By: #### L [id number] ####[facility] ([facility] [place] [address] GLOMERULAR FILTRATION RATE ML/MIN/1.73 SQ M.PREDICTED 66.0 mL/min/1.73m*2 Normal >60.0 [facility] Comment on above: Result Comment: [facility]???s estimated glomerular filtration rate (eGFR) will [...] of individuals. Performed By: #### L [id number] ####[facility] ([facility])[address] [place] [address] Glucose [Mass/Vol] 95 mg/dL Normal 70-100 [facility] Comment on above: Performed By: #### L [id number] ####[facility] ([facility])[address] [place] [address] Potassium [Moles/Vol] 3.7 mmol/L Normal 3.5-5.1 [facility] Comment on above: Performed By: #### L [id number] ####[facility] ([facility])[address] [place] [address] Protein [Mass/Vol] 6.6 g/dL Normal 6.0-8.3 [facility] Comment on above: Performed By: #### L [id number] ####[facility] ([facility])[address] [place] [address] Sodium [Moles/Vol] 137 mmol/L Normal 136-145 [facility] Comment on above: Performed By: #### L [id number] ####[facility] ([facility])[address] [place] [address] Urea nitrogen [Mass/Vol] 16 mg/dL Normal 7-25 [facility] Comment on above: Performed By: #### L [id number] ####[facility] ([facility])[address] [place] [address] UREA NITROGEN/CREATININ E (MASS RATIO) IN SER/PLAS 14.3 Normal [facility] Comment on above: Performed By: #### L [id number] ####[facility] ([facility])[address] [place] [address] Follow-Upon 08-17-2023 Follow-Up [id number] Travis Coburn 1940 M Date Provider Department Center 08/17/2023 LUIS DANIEL HAYNES [facility] No family history on file Level of Service:12051 MS OFFICE/OUTPATIENT ESTABLISHED MOD MDM 30 MIN Reason for Visit and Comments: Follow-up [481013] - 6 mo follow up [facility] Orders Onlyon 08-17-2023 Orders Only [id number] Travis Coburn 1940 M Date Provider Department Center 08/17/2023 JOON VAZQUEZ [facility] No family history on file Normal [facility] Office Visiton 08-16-2023 Follow-up visit [id number] Travis Coburn 1940 M Date Provider Department Center 08/16/2023 321-TOO [facility]3] NEPHRO Comprehensiv No family history on file Level of Service:68562 MS OFFICE/OUTPATIENT NEW MODERATE MDM 45 MINUTES (GC) Reason for Visit and Comments: New Patient [632] [facility] Ambulatory Visit Summaryon 0 07-18-2023 Ambulatory Visit Summary TRAVIS COBURN :1940 Visit Date:07/18/2023 Ambulatory Visit Instructions Your Care Team Attending Physician - Wade LILLY MD Primary Care Physician - Mayra Navarrete MD Referring Physician - Mayra Navarrete MD This [...] MAXX TURNER, Wade Peter Where: General Surgery Nill/De[facility] [place] Normal [address] [place] [address] [place] [address]- \.br\ Medications\.br\ What How Much When Instructions\.br\ [...] for choosing us for your care.\.br\ \.br\ [facility] Physician Referralon 024 Physician Referral [phone] [id number] .[id number] Normal [facility] Physician Referral [phone]. [phone] [id number] .00TIFF [facility] 36on 06-13-2023 36 New order faxed to [facility] Also Options explained to Patient, who expressed understanding Normal [facility] 36 Pt called (very anxious) to let you know that the Nephrology office can not see him until 08/01/23. Normal [facility] Orders Onlyon 06-13-2023 Orders Only [id number] Travis Coburn 1940 M Date Provider Department Center 06/13/2023 317-IVORYMANGO LAURENTSUKHDEV M [facility] RHEUM [facility] No family history on file [facility] Telephoneon 06-13-2023 Telephone [id number] Travis Coburn 1940 M Date Provider Department Center 06/13/2023 853-MIGUEL GRANDE [facility] RHEUM [facility] No family history on file [facility] 36on 06-09-2023 36 Could you please shayla l patient [facility] Orders Onlyon 06-09-2023 Orders Only [id number] Travis Coburn 1940 M Date Provider Department Center 06/09/2023 [address] [facility] RHEUM [facility] No family history on file [facility] FLUORO FOR SURGICAL PROCEDUR ESon 04-05-2023 FLUORO FOR SURGICAL PROCEDURES RADRPT Radiology exam is complete. No Radiologist dictation. Please follow up with ordering provider. Final result Normal [facility] SURGICALon 04-05-2023 SURGICAL [place] [facility] TRAVIS COBURN [id number] Assoc. Page 1 of [address] [place] [address] PROC: 04/05/2023 NVML/StLilian Mehta's RECV: 04/06/[address] [facility] RPTD: 04/07/2023 [place] [address] LOC: NAT ACCT: [id number] SEX: M : 1940 AGE: 82 Y PATHOLOGY REPORT ATTN: NON-STAFF PHYSICIAN REQ: MICHELLE BARRY Copies To: MAYRA HOY Clinical Information: AGE-RELATED OSTEOPOROSIS WITH CURRENT PATHOLOGICAL [...] developed and its performance characteristics determined by [facility]. It has not been cleared or approved by the U.S. Food and Drug Administration. Pursuant to the requirements of CLIA, this laboratory has established and verified the test's accuracy and precision. Additional information about this type of test is available upon request. [id number] REJI FITZGERALD M.D., F.C.A.P. [facility]/ [facility] Printed on: 04/07/2023 [address] [place], [place] [address] Original print date: 04/07/2023 Normal [facility] Surgical Pathology Requeston 04-05-2023 MALLIKA SEE BELOW [facility] Comment on above: Order Comment: Age-r elated osteoporosis with current pathological fracture of vertebra, initial encounter ([facility]) [M80.08XA] Pre-op diagnosis: L1 Vertebral body Biopsy Result Comment: [facility] TRAVIS COBURN [id number]\X0D0A\Assoc. Page 1 of 1\X0D0A\[address]\X0D0A\[place] [address]\X0D0A\ PROC: 04/05/2023\X0D0A\[facility] RECV: 04/06/2023\X0D0A\[address] RPTD: 04/07/2023\X0D0A\[place] [address]\X0D0A\ LOC: WYA\X0D0A\ ACCT: [id number] SEX: M\X0D0A\ : 1940 AGE: 82 Y\X0D0A\X0D0A\ [...] was developed and its performance characteristics determined\X0D0A\by [facility]. It has not been cleared or\X0D0A\approved by the U.S. Food and Drug Administration. Pursuant to the\X0D0A\requirements of CLIA, this laboratory has established and verified the\X0D0A\test's accuracy and precision. Additional information about this type\X0D0A\of test is available upon request.\X0D0A\X0D0A\63105\X0D0A\[address]\X0D0A\83611\X0D0A\X0D0A\X 0D0A\ \X0D0A\ REJI FITZGERALD M.D., F.C.A.P.\X0D0A\X0D0A\X0D0A\[facility]/ [facility] Printed on: 04/07/2023\X0D0A\[address]\X0D0A\[place], [place] [address]\X0D0A\Original print date: 04/07/2023 Performed By: #### 1 [id number] #### [facility] See Report Ambulatory Visit Summaryon 0 03-20-2023 Ambulatory Visit Summary TRAVIS COBURN :1940 Visit Date:03/20/2023 Ambulatory Visit Instructions Your Diagnosis Nocturia Urinary urgency BPH with urinary obstruction History of kidney stones Impotence Tests Performed Urnls Dip Stick Auto w/o Microscopy POC 53422 Your Care Team Attending Physician - MIRIAN TURNER, Nguyễn Peter Primary Care Physician - Mayra Navarrete [...] TURNER, Nguyễn Peter Where: [facility] Patient Educationon 03-20-20 Patient Education Urology Benign [...] Follow these instructions at home: ? Take gzvj-nef-tayinbm and prescription medicines only as told by [...] the medicine (more content not included)... 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 Reports he has [...] [facility] [address], [place] [address]- [phone] Additional Instructions: Patient Education Benign Prostatic Hyperplasia Jackeline Emery, personally scribed for Dr. Vela on 03/20/2023 [...] data Procedure/ (more content not included)... Normal [facility] Comment on above: Result Comment: Elec tronically Signed By: Nguyễn VELA MD\.br\Date and Time Signed: 03/20/23 15:41 EDT\.br\Electronically Co-Signed By: Jackeline Graff\.br\Date and Time Co-Signed: 03/20/23 15:38 EDT 36on 03-09-2023 36 Orders faxed w/ dx code [facility] 36on 03-07-2023 36 Person from [facility] lab called to states ICD-10 code (current code on order Z79.631) on blood work order is not being accepted by patient's medicare insurance. They would need a new order w/ a new dx code. I can fax new order to below number when completed [facility] Telephoneon 03-07-2023 Telephone [id number] Travis Coburn 1940 Date Provider Department Center 03/07/2023 YUOSUF DUBON C [facility] No family history on file Reason for Visit and Comments: Med Refill [847314] [facility] Follow-Upon 02-23-2023 Follow-Up [id number] Travis Coburn 1940 Provider Department Center 02/23/2023 LUIS DANIEL HAYNES [facility] R[facility]UM [facility] No family history on file Level of Service:90320 MS OFFICE/OUTPATIENT ESTABLISHED MOD MDM 30-39 MIN Reason for Visit and Comments: Follow-up [337579] - 4 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 [facility] Telephoneon 11-18-2022 Telephone [id number] Travis Coburn 1940 Provider Department Center 11/18/2022 LUIS DANIEL HAYNES [facility] RHEUM [facility] No family history on file [facility] Follow-Upon 10-27-2022 Follow-Up [id number] Travis Coburn 1940 M Date Provider Department Center 10/27/2022 Diane-LUIS DANIEL BRUNNER C RHEUM [facility] No family history on file Level of Service:32740 MS OFFICE/OUTPATIENT ESTABLISHED MOD [facility] 30-39 MIN Reason for Visit and Comments: Follow-up [158321] - DISCUSS MEDS Normal [facility] INSULINon 10-26-2022 Insulin 34.8 uIU/mL Critically high 2.6-24.9 [facility] Comment on above: Performed By: #### C BC #### [facility] [address] [place] [address] Dr. Layla Barrera CBC AUTO DIFFon 10-25-2022 BASO # 0.0 103/ul Normal 0.0-0.1 [facility] Comment on above: Performed By: #### C BC #### [facility] [address] [place] [address] Dr. Layla Barrera Basophils/100 WBC (Bld) 0.6 % Normal 0.2-2.0 [facility] Comment on above: Performed By: #### C BC #### [facility] [address] [address] [address] Layla Barrera EO # 0.3 103/ul Normal 0.0-0.7 [facility] Comment on above: Performed By: #### C BC #### [facility] [address] [place] [address] Dr. Layla Barrera Eosinophils/100 WBC (Bld) 4.2 % Normal 0.9-7.0 [facility] Comment on above: Performed By: #### C BC #### [facility] [address] [place] [address] Dr. Layla Barrera Erythrocyte distribution width (RBC) [Ratio] 13.6 % Normal 11.0-15.0 [facility] Comment on above: Performed By: #### C BC #### [facility] [address] [place] [address] Dr. Layla Barrera Hematocrit (Bld) [Volume fraction] 42.6 % Normal 42.0-54.0 [facility] Comment on above: Performed By: #### C BC #### [facility] [address] [place] [address] Dr. Layla Barrera Hemoglobin (Bld) [Mass/Vol] 14.7 g/dL Normal 14.0-18.0 [facility] Comment on above: Performed By: #### C BC #### [facility] [address] [place] [address] Dr. Layla Barrera IG # 0.02 10e3/ul Normal 0.00-0.03 [facility] Comment on above: Performed By: #### C BC #### [facility] [address] [place] [address] Dr. Layla Barrera IG % 0.3 % Normal 0.0-0.5 [facility] Comment on above: Performed By: #### C BC #### [facility] [address] [place] [address] Dr. Layla Barrera LYMPH # 2.1 103/ul Normal 1.2-3.8 [facility] Comment on above: Performed By: #### C BC #### [facility] [address] [place] [address] Dr. Layla Barrera Lymphocytes/100 WBC (Bld) 30.1 % Normal 20.5-60.0 [facility] Comment on above: Performed By: #### C BC #### [facility] [address] [place] [address] Dr. Layla Barrera MANUAL DIFF REQ NO Normal [facility] Comment on above: Performed By: #### C BC #### [facility] [address] [place] [address] Dr. Layla Barrera MCH (RBC) [Entitic mass] 32.1 pg Normal 25.9-34.0 [facility] Comment on above: Performed By: #### C BC #### [facility] [address] [place] [address] Dr. Layla Barrera MCHC (RBC) [Mass/Vol] 34.5 g/dL Normal 29.9-35.2 [facility] Comment on above: Performed By: #### C BC #### [facility] [address] [place] [address] Dr. Layla Barrera MCV (RBC) [Entitic vol] 93.0 fL Normal 80.0-94.0 [facility] Comment on above: Performed By: #### C BC #### [facility] [address] [place] [address] Dr. Layla Barrera MONO # 0.6 103/ul Normal 0.3-0.8 [facility] Comment on above: Performed By: #### C BC #### [facility] [address] [place] [address] Dr. Layla Barrera Monocytes/100 WBC (Bld) 8.5 % Normal 1.7-12.0 [facility] Comment on above: Performed By: #### C BC #### [facility] [address] [place] [address] Dr. Layla Barrera NEUT # 3.9 103/ul Normal 1.4-6.5 [facility] Comment on above: Performed By: #### C BC #### [facility] [address] [place] [address] Dr. Layla Barrera Neutrophils/100 WBC (Bld) 56.3 % Normal 43.0-75.0 [facility] Comment on above: Performed By: #### C BC #### [facility] [address] [place] [address] Dr. Layla Barrera Platelet mean volume (Bld) [Entitic vol] 10.6 fL Normal 9.5-13.5 [facility] Comment on above: Performed By: #### C BC #### [facility] [address] [place] [address] Dr. Layla Barrera PLT 168 103/ul Normal 150-450 [facility] Comment on above: Performed By: #### C BC #### [facility] [address] [place] [address] Dr. Layla Barrera RBC 4.58 106/ul Critically low 4.70-6.10 [facility] Comment on above: Performed By: #### C BC #### [facility] [address] [place] [address] Dr. Layla Barrera WBC 7.0 103/ul Normal 4.0-11.0 [facility] Comment on above: Performed By: #### C BC #### [facility] [address] [place] [address] Dr. Layla Barrera FREE THYROXINE INDEX T7on FTI 2.21 Normal 1.30-4.50 [facility] Comment on above: Performed By: #### C BC #### [facility] [address] [place] [address] Dr. Layla Barrera T3U 33.0 % Normal 33.0-40.0 [facility] Comment on above: Performed By: #### C BC #### [facility] [address] [place] [address] Dr. Layla Barrera T4 [Mass/Vol] 6.70 ug/dL Normal 4.50-12.10 [facility] Comment on above: Performed By: #### C BC #### [facility] [address] [place] [address] Dr. Layla Barrera GLYCOHEMOGLOBIN A1Con 2022 ADA RECOMMENDATION SEE BELOW Normal [facility] Comment on above: Result Comment: ADA RECOMMENDED LIMIT 4.0 - 6.0 ADA THERAPEUTIC TARGET < 7.0 ACTION SUGGESTED > 7.0 Performed By: #### G IPANEL #### [facility] [address] [place] [address] Dr. Layla Barrera Glucose [Mass/Vol] 146 mg/dL Normal [facility] Comment on above: Performed By: #### G IPANEL #### [facility] [address] [place] [address] Dr. Layla Barrera HbA1c (Bld) [Mass fraction] 6.7 % Critically high 4.5-6.2 [facility] Comment on above: Performed By: #### G IPANEL #### [facility] [address] [place] [address] Dr. Layla Barrera IRONon 10-25-2022 Iron [Mass/Vol] 82.0 ug/dL Normal 65.0-175.0 [facility] Comment on above: Performed By: #### I SONYA MCGOVERN, VITB12 #### [facility] [address] [address] [address] Layla Barrera LIPID PROFILEon 10-25-2022 CHOL-HDL RATIO NORM SEE BELOW Normal [facility] Comment on above: Result Comment: 3.3 - 4.4 LOW RISK 4.4 - 7.1 AVERAGE RISK 7.1 - 11.0 MODERATE RISK >11.0 HIGH RISK Performed By: #### C BC #### [facility] [address] [address] [address] Layla Barrera Cholesterol [Mass/Vol] 201 mg/dL Critically high <=200 [facility] Comment on above: Performed By: #### C BC #### [facility] [address] [address] [address] Layla Barrera Cholesterol in HDL [Mass/Vol] 46 mg/dL Normal 40-60 [facility] Comment on above: Performed By: #### C BC #### [facility] [address] [address] [address] Layla Barrera Cholesterol in LDL [Mass/Vol] 133.4 mg/dL Normal [facility] Comment on above: Performed By: #### C BC #### [facility] [address] [place] [address] Dr. Layla Barrera Cholesterol.total/ Cholesterol in HDL [Mass ratio] 4.4 {ratio} Normal [facility] Comment on above: Performed By: #### C BC #### [facility] [address] [place] [address] Dr. Layla Barrera HDL NORMAL > or = 60 mg/dl - LO W CARDIOVASCULAR RISK <40 mg/dl - HIGH CARDIOVASCULAR RISK Normal [facility] Comment on above: Performed By: #### C BC #### [facility] [address] [place], [place] [address] Dr. Layla Barrera LDL CALC NORMAL SEE BELOW Normal [facility] Comment on above: Result Comment: <100 mg/dl OPTIMAL 100 - 129 mg/dl NEAR OR ABOVE OPTIMAL 130 - 159 mg/dl BORDERLINE HIGH 160 - 189 mg/dl HIGH >190 mg/dl VERY HIGH Performed By: #### C BC #### [facility] [address] [place] [address] Dr. Layla Barrera Triglyceride [Mass/Vol] 108 mg/dL Normal <=150 [facility] Comment on above: Performed By: #### C BC #### [facility] [address] [place] [address] Dr. Layla Barrera VLDL CALC 21.6 mg/dL Normal [facility] Comment on above: Performed By: #### C BC #### [facility] [address] [place] [address] Dr. Layla Barrera PROF 14(COMP METB)on 023 Albumin [Mass/Vol] 3.6 g/dL Normal 3.4-5.0 [facility] Comment on above: Performed By: #### C BC #### [facility] [address] [place] [address] Dr. Layla Barrera Albumin/Globulin [Mass ratio] 1.0 {ratio} Normal [facility] Comment on above: Performed By: #### C BC #### [facility] [address] [place] [address] Dr. Layla Barrera ALP [Catalytic activity/Vol] 101 U/L Normal 46-116 [facility] Comment on above: Performed By: #### C BC #### [facility] [address] [place] [address] Dr. Layla Barrera ALT [Catalytic activity/Vol] 42 U/L Normal 16-63 [facility] Comment on above: Performed By: #### C BC #### [facility] [address] [place] [address] Dr. Layla Barrera Anion gap [Moles/Vol] 12.8 mmol/L Normal [facility] Comment on above: Performed By: #### C BC #### [facility] [address] [place] [address] Dr. Layla Barrera AST [Catalytic activity/Vol] 26 U/L Normal 15-37 [facility] [facility] Comment on above: Performed By: #### C BC #### [facility] [address] [place] [address] Dr. Layla Barrera Bilirubin [Mass/Vol] 0.7 mg/dL Normal 0.2-1.0 [facility] Comment on above: Performed By: #### C BC #### [facility] [address] [address] [address] Layla Barrera Calcium [Mass/Vol] 8.9 mg/dL Normal 8.5-10.1 [facility] Comment on above: Performed By: #### C BC #### [facility] [address] [address] [address] Layla Barrera Chloride [Moles/Vol] 103 mmol/L Normal 98-107 [facility] Comment on above: Performed By: #### C BC #### [facility] [address] [place] [address] Dr. Layla Barrera CO2 [Moles/Vol] 26.3 mmol/L Normal 21.0-32.0 [facility] Comment on above: Performed By: #### C BC #### [facility] [address] [address] [address] Layla Barrera Creatinine [Mass/Vol] 1.24 mg/dL Normal 0.70-1.30 [facility] Comment on above: Performed By: #### C BC #### [facility] [address] [place] [address] Dr. Layla Barrera EGFR-AF MALAGASY >60 Normal >=60 [facility] Comment on above: Performed By: #### C BC #### [facility] [address] [address] [address] Layla Barrera EGFR-NON AF MALAGASY 56 mL/min/1.73m2 Critically low >=60 [facility] Comment on above: Performed By: #### C BC #### [facility] [address] [address] [address] Layla Barrera Globulin (S) [Mass/Vol] 3.5 g/dL Normal [facility] Comment on above: Performed By: #### C BC #### [facility] [address] [address] [address] Layla Barrera Glucose [Mass/Vol] 147 mg/dL Critically high 74-106 [facility] Comment on above: Performed By: #### C BC #### [facility] [address] [address] [address] Layla Barrera Potassium [Moles/Vol] 4.1 mmol/L Normal 3.5-5.1 [facility] Comment on above: Performed By: #### C BC #### [facility] [address] [address] [address] Layla Barrera Protein [Mass/Vol] 7.1 g/dL Normal 6.4-8.2 [facility] Comment on above: Performed By: #### C BC #### [facility] [address] [address] [address] Layla Barrera Sodium [Moles/Vol] 138 mmol/L Normal 136-145 [facility] Comment on above: Performed By: #### C BC #### [facility] [address] [address] [address] Layla Barrera Urea nitrogen [Mass/Vol] 18.0 mg/dL Normal 7.0-18.0 [facility] Comment on above: Performed By: #### C BC #### [facility] [address] [address] [address] Layla Barrera Urea nitrogen/Creatinin e [Mass ratio] 14.5 mg/mg Normal [facility] Comment on above: Performed By: #### C BC #### [facility] [address] [address] [address] Layla Barrera TSHon 10-25-2022 TSH 2.495 uIU/mL Normal 0.358-3.740 [facility] Comment on above: Performed By: #### C BC #### [facility] [address] [address] [address] Layla Barrera URIC ACID SERUMon 10-25-2022 Urate [Mass/Vol] 8.1 mg/dL Critically high 3.5-7.2 [facility] Comment on above: Performed By: #### C BC #### [facility] [address] [address] [address] Layla Barrera VITAMIN B12on 10-25-2022 Cobalamin (Vitamin B12) [Mass/Vol] 689.0 pg/mL Normal 193.0-986.0 [facility] Comment on above: Performed By: #### I SONYA MCGOVERN [id number] #### [facility] [address] [address] [address] Layla Barrera VITAMIN D 25 OHon 10-25-2022 VIT D 25-OH 17.0 ng/mL Normal [facility] Comment on above: Performed By: #### I SONYA MCGOVERN, VITB12 #### [facility] [address] [address] [address] Layla Barrera VIT D RANGES SEE BELOW Normal [facility] Comment on above: Result Comment: <20 ng/mL Vit D deficient 20 - <30 ng/mL Vit D insufficient 30 - 100 ng/mL Vit D sufficient >100 ng/mL Potential Toxicity Performed By: #### I SONYA MCGOVERN VITB12 #### [facility] [address] [address] [address] Layla Barrera 36on 10-20-2022 36 Pt aware appt scheduled [facility] 36 Patient called again to state that he might have to go to the ED if he does not hear from you soon [facility] 36on 10-19-2022 36 Patient calling regarding [...] may be contributing to his conditions. Normal [facility] CBC WITH AUTO DIFFERENTIALon 08-25-2022 Basophils (Bld) [#/Vol] 0.04 10*3/uL Normal 0.00-0.20 [facility] Comment on above: Performed By: #### L [id number] ####[facility] ([facility])[address] [place] [address] Basophils/100 WBC (Bld) 0.6 % Normal 0.0-1.0 [facility] Comment on above: Performed By: #### L [id number] ####[facility] (BE[facility])[address] [place] [address] Eosinophils (Bld) [#/Vol] 0.13 10*3/uL Normal 0.00-0.50 [facility] Comment on above: Performed By: #### L [id number] ####[facility] ([facility])[address] [place] [address] Eosinophils/100 WBC (Bld) 2.0 % Normal 0.0-6.0 [facility] Comment on above: Performed By: #### L [id number] ####[facility] ([facility])[address] [place] [address] Erythrocyte distribution width (RBC) [Ratio] 13.3 % Normal 11.5-15.0 [facility] Comment on above: Performed By: #### L [id number] ####[facility] ([facility])[address] [place] [address] ERYTHROCYTE MEAN CORPUSCULAR HEMOGLOBIN CONCENTRATION (G/DL) BY AUTOMATED 34.8 g/dL Normal 32.0-35.0 [facility] Comment on above: Performed By: #### L [id number] ####[facility] ([facility] [place] [address] Hematocrit (Bld) [Volume fraction] 42.8 % Normal 39.0-55.0 [facility] Comment on above: Performed By: #### L [id number] ####[facility] (BE[facility])[address] [place] [address] Hemoglobin (Bld) [Mass/Vol] 14.9 g/dL Normal 13.0-17.0 [facility] Comment on above: Performed By: #### L [id number] ####[facility] ([facility])[address] [place] [address] Immature granulocytes (Bld) [#/Vol] 0.04 10*3/uL Normal 0.00-0.20 [facility] Comment on above: Performed By: #### L [id number] ####[facility] (BE[facility])[address] [place] [address] Immature granulocytes/100 WBC (Bld) 0.6 % Normal 0.0-1.0 [facility] Comment on above: Performed By: #### L [id number] ####[facility] ([facility])[address] [place] [address] Lymphocytes (Bld) [#/Vol] 2.05 10*3/uL Normal 1.20-4.00 [facility] Comment on above: Performed By: #### L [id number] ####[facility] ([facility])[address] [place] [address] Lymphocytes/100 WBC (Bld) 30.9 % Normal 20.0-45.0 [facility] Comment on above: Performed By: #### L [id number] ####[facility] ([facility])[address] [place] [address] MCH (RBC) [Entitic mass] 31.6 pg Normal 27.0-33.0 [facility] Comment on above: Performed By: #### L [id number] ####[facility] ([facility]ER)[address] [place] [address] MCV (RBC) [Entitic vol] 90.9 fL Normal 82.0-98.0 [facility] Comment on above: Performed By: #### L [id number] ####[facility] (BE[facility]ER)[address] [place] [address] Monocytes (Bld) [#/Vol] 0.60 10*3/uL Normal 0.10-1.00 [facility] Comment on above: Performed By: #### L [id number] ####[facility] ([facility]ER)[address] [place] [address] Monocytes/100 WBC (Bld) 9.0 % Normal 5.0-12.0 [facility] Comment on above: Performed By: #### L [id number] ####[facility] (BE[facility]ER)[address] [place] [address] Neutrophils (Bld) [#/Vol] 3.78 10*3/uL Normal 1.60-7.60 [facility] Comment on above: Performed By: #### L [id number] ####[facility] ([facility])[address] [place] [address] Neutrophils/100 WBC (Bld) 56.9 % Normal 40.0-72.0 [facility] Comment on above: Performed By: #### L [id number] ####[facility] ([facility])[address] [place] [address] NRBC (PER 100 WBCS) BY AUTOMATED COUNT 0.0 % Normal 0.0-0.0 [facility] Comment on above: Performed By: #### L [id number] ####[facility] ([facility])[address] [place] [address] PLATELETS (10*3/UL) IN BLOOD AUTOMATED COUNT 173 10*3/uL Normal 150-400 [facility] Comment on above: Performed By: #### L [id number] ####[facility] ([facility])[address] [place] [address] RBC (Bld) [#/Vol] 4.71 10*6/uL Normal 4.20-5.70 [facility] Comment on above: Performed By: #### L [id number] ####[facility] ([facility])[address] [place] [address] WBC (Bld) [#/Vol] 6.64 10*3/uL Normal 4.00-10.60 [facility] Comment on above: Performed By: #### L [id number] ####[facility] ([facility] [place] [address] COMPREHENSIVE METABOLIC PANE [place] 08-25-2022 Albumin [Mass/Vol] 4.1 g/dL Normal 3.5-5.7 [facility] Comment on above: Performed By: #### L [id number] #### [facility] ([facility] [address] [place] [address] ALP [Catalytic activity/Vol] 85 U/L Normal 34-104 [facility] Comment on above: Performed By: #### L [id number] #### [facility] ([facility] [address] [place] [address] ALT [Catalytic activity/Vol] 47 U/L Normal 7-52 [facility] Comment on above: Performed By: #### L [id number] #### [facility] ([facility]) [address] [place] [address] Anion gap [Moles/Vol] 9 mmol/L Normal 7-20 [facility] Comment on above: Performed By: #### L [id number] #### [facility] ([facility]) [address] [place] [address] AST [Catalytic activity/Vol] 31 U/L Normal 13-39 [facility] Comment on above: Performed By: #### L [id number] #### [facility] ([facility]) [address] [place] [address] Bilirubin [Mass/Vol] 0.6 mg/dL Normal 0.3-1.0 [facility] Comment on above: Performed By: #### L [id number] #### [facility] ([facility]) [address] [place] [address] Calcium [Mass/Vol] 9.2 mg/dL Normal 8.6-10.3 [facility] Comment on above: Performed By: #### L [id number] #### [facility] ([facility] [address] [place] [address] Chloride [Moles/Vol] 102 mmol/L Normal 98-107 [facility] Comment on above: Performed By: #### L [id number] #### [facility] ([facility]) [address] [place] [address] CO2 [Moles/Vol] 29 mmol/L Normal 21-31 [facility] Comment on above: Performed By: #### L [id number] #### [facility] ([facility]) [address] [place] [address] Creatinine [Mass/Vol] 1.09 mg/dL Normal 0.70-1.30 [facility] Comment on above: Performed By: #### L [id number] #### [facility] ([facility]) [address] [place] [address] GLOMERULAR FILTRATION RATE ML/MIN/1.73 SQ M.PREDICTED 63.8 mL/min/1.73m*2 Normal >60.0 [facility] Comment on above: Result Comment: [facility]???s estimated glomerular filtration rate (eGFR) will [...] individuals. Performed By: #### L [id number] #### [facility] ([facility]) [address] [place] [address] Glucose [Mass/Vol] 142 mg/dL High 70-100 [facility] Comment on above: Performed By: #### L [id number] #### [facility] ([facility]) [address] [place] [address] Potassium [Moles/Vol] 4.1 mmol/L Normal 3.5-5.1 [facility] Comment on above: Performed By: #### L [id number] #### [facility] ([facility]) [address] [place] [address] Protein [Mass/Vol] 7.0 g/dL Normal 6.0-8.3 [facility] Comment on above: Performed By: #### L [id number] #### [facility] ([facility]) [address] [place] [address] Sodium [Moles/Vol] 136 mmol/L Normal 136-145 [facility] Comment on above: Performed By: #### L [id number] #### [facility] (BE[facility]ER) [address] [place] [address] Urea nitrogen [Mass/Vol] 14 mg/dL Normal 7-25 [facility] Comment on above: Performed By: #### L [id number] #### [facility] (BE[facility]ER) [address] [place] [address] UREA NITROGEN/CREATININ E (MASS RATIO) IN SER/PLAS 12.84 Normal [facility] Comment on above: Performed By: #### L [id number] #### [facility] (BE[facility]ER) [address] [place] [address] Follow-Upon 08-25-2022 Follow-Up [id number] Travis Coburn [address] [facility] Center 08/25/2022 [place] [facility] RHEUM Eloise Heal No family history on file Level of Service:13781 MS OFFICE/OUTPATIENT ESTABLISHED MOD MDM 30-39 MIN () Reason for Visit and Comments: Follow-up [429610] Normal [facility] PSA, FREE AND TOTAL RATIOon 06-22-2022 % Free PSA 49.9 % Normal [facility] Comment on above: Result Comment: The [...] men. Performed By: #### P SAFREE #### [facility] [address] [place], [place] [address] Dr. Layla Barrera Prostate specific Ag [Mass/Vol] 6.8 ng/mL Critically high 0.0-4.0 [facility] Comment on above: Result Comment: Nikki bassett ECLIA methodology. . According to the [place] [employer], Serum PSA should decrease and [...] disease. Performed By: #### P SAFREE #### [facility] [address] [place] [address] Dr. Layla Barrera PSA, Free 3.39 ng/mL Normal N/A [facility] Comment on above: Result Comment: Nikki bassett ECLIA methodology. Performed By: #### P SAFREE #### [facility] [address] [place] [address] Dr. Layla Barrera H PYLORI ANTIBODY IGGon H. PYLORI IGG ABS 0.96 Index Value Critically high 0.00-0. 79 [facility] Comment on above: Result Comment: Nega tive <0.80 Equivocal 0.80 - 0.89 Positive >0.89 Performed By: #### C BC #### [facility] [address] [place] [address] Dr. Layla Barrera INSULINon 03-12-2022 Insulin 38.7 uIU/mL Critically high 2.6-24.9 [facility] Comment on above: Performed By: #### G IPANEL #### [facility] [address] [place] [address] Dr. Layla Barrera AMYLASEon 03-11-2022 Amylase [Catalytic activity/Vol] 54 U/L Normal 25-115 [facility] Comment on above: Performed By: #### G IPANEL #### [facility] [address] [place] [address] Dr. Layla Barrera CBC AUTO DIFFon 03-11-2022 BASO # 0.1 103/ul Normal 0.0-0.1 [facility] Comment on above: Performed By: #### C BC #### [facility] [address] [address] [address] Layla Barrera Basophils/100 WBC (Bld) 0.7 % Normal 0.2-2.0 [facility] Comment on above: Performed By: #### C BC #### [facility] [address] [place] [address] Dr. Layla Barrera EO # 0.3 103/ul Normal 0.0-0.7 [facility] Comment on above: Performed By: #### C BC #### [facility] [address] [place] [address] Dr. Layla Barrera Eosinophils/100 WBC (Bld) 3.6 % Normal 0.9-7.0 [facility] Comment on above: Performed By: #### C BC #### [facility] [address] [place] [address] Dr. Layla Barrera Erythrocyte distribution width (RBC) [Ratio] 13.2 % Normal 11.0-15.0 [facility] Comment on above: Performed By: #### C BC #### [facility] [address] [place] [address] Dr. Layla Barrera Hematocrit (Bld) [Volume fraction] 43.0 % Normal 42.0-54.0 [facility] Comment on above: Performed By: #### C BC #### [facility] [address] [place] [address] Dr. Layla Barrera Hemoglobin (Bld) [Mass/Vol] 14.6 g/dL Normal 14.0-18.0 [facility] Comment on above: Performed By: #### C BC #### [facility] [address] [place] [address] Dr. Layla Barrera IG # 0.03 10e3/ul Normal 0.00-0.03 [facility] Comment on above: Performed By: #### C BC #### [facility] [address] [place] [address] Dr. Layla Barrera IG % 0.4 % Normal 0.0-0.5 [facility] Comment on above: Performed By: #### C BC #### [facility] [address] [place] [address] Dr. Layla Barrera LYMPH # 3.0 103/ul Normal 1.2-3.8 [facility] Comment on above: Performed By: #### C BC #### [facility] [address] [place] [address] Dr. Layla Barrera Lymphocytes/100 WBC (Bld) 41.2 % Normal 20.5-60.0 [facility] Comment on above: Performed By: #### C BC #### [facility] [address] [place] [address] Dr. Layla Barrera MANUAL DIFF REQ NO Normal [facility] Comment on above: Performed By: #### C BC #### [facility] [address] [place] [address] Dr. Layla Barrera MCH (RBC) [Entitic mass] 31.8 pg Normal 25.9-34.0 [facility] Comment on above: Performed By: #### C BC #### [facility] [address] [place] [address] Dr. Layla Barrera MCHC (RBC) [Mass/Vol] 34.0 g/dL Normal 29.9-35.2 [facility] Comment on above: Performed By: #### C BC #### [facility] [address] [place] [address] Dr. Layla Barrera MCV (RBC) [Entitic vol] 93.7 fL Normal 80.0-94.0 [facility] Comment on above: Performed By: #### C BC #### [facility] [address] [place] [address] Dr. Layla Barrera MONO # 0.6 103/ul Normal 0.3-0.8 [facility] Comment on above: Performed By: #### C BC #### [facility] [address] [place] [address] Dr. Layla Barrera Monocytes/100 WBC (Bld) 7.9 % Normal 1.7-12.0 [facility] Comment on above: Performed By: #### C BC #### [facility] [address] [place] [address] Dr. Layla Barrera NEUT # 3.3 103/ul Normal 1.4-6.5 [facility] Comment on above: Performed By: #### C BC #### [facility] [address] [place] [address] Dr. Layla Barrera Neutrophils/100 WBC (Bld) 46.2 % Normal 43.0-75.0 [facility] Comment on above: Performed By: #### C BC #### [facility] [address] [place] [address] Dr. Layla Barrera Platelet mean volume (Bld) [Entitic vol] 11.1 fL Normal 9.5-13.5 [facility] Comment on above: Performed By: #### C BC #### [facility] [address] [place] [address] Dr. Layla Barrera PLT 171 103/ul Normal 150-450 [facility] Comment on above: Performed By: #### C BC #### [facility] [address] [place] [address] Dr. Layla Barrera RBC 4.59 106/ul Critically low 4.70-6.10 [facility] [place] Comment on above: Performed By: #### C BC #### [facility] [address] [place] [address] Dr. Layla Barrera WBC 7.2 103/ul Normal 4.0-11.0 [facility] Comment on above: Performed By: #### C BC #### [facility] [address] [place] [address] ABD/PELV W CONon [...] CJ MELTON Date: 2022-03-11 10:08 Normal [facility] GI PANEL (PCR)on 03-11-2022 Adenovirus F 40/41 Not detected Normal NOT DETECTED [facility] Comment on above: Performed By: #### G IPANEL #### [facility] [address] [place] [address] Dr. Layla Barrera Astrovirus Not detected Normal NOT DETECTED [facility] Comment on above: Performed By: #### G IPANEL #### [facility] [address] [address] [address] Layla Barrera C. Diff toxin A/B Not detected Normal NOT DETECTED [facility] Comment on above: Performed By: #### G IPANEL #### [facility] [address] [place] [address] Dr. Layla Barrera Campylobacter Not detected Normal NOT DETECTED [facility] Comment on above: Performed By: #### G IPANEL #### [facility] [address] [address] [address] Layla Barrera Cryptosporidium Not detected Normal NOT DETECTED [facility] Comment on above: Performed By: #### G IPANEL #### [facility] [address] [address] [address] Layla Barrera Cyclos. Cayetanensis Not detected Normal NOT DETECTED [facility] Comment on above: Performed By: #### G IPANEL #### [facility] [address] [place] [address] Dr. Layla Barrera E. Coli O157 Not Applicable Normal Not Applicable [facility] Comment on above: Performed By: #### G IPANEL #### [facility] [address] [address] [address] Layla Barrera ELilian histolytica Not detected Normal NOT DETECTED [facility] Comment on above: Performed By: #### G IPANEL #### [facility] [address] [address] [address] Layla Barrera EAEC Not detected Normal NOT DETECTED [facility] Comment on above: Performed By: #### G IPANEL #### [facility] [address] [place] [address] Dr. Layla Barrera EIEC Not detected Normal NOT DETECTED [facility] Comment on above: Performed By: #### G IPANEL #### [facility] [address] [place] [address] Dr. Layla Barrera EPEC Detected Abnormal NOT DETECTED [facility] Comment on above: Performed By: #### G IPANEL #### [facility] [address] [place] [address] Dr. Layla Barrera ETEC Not detected Normal NOT DETECTED [facility] Comment on above: Performed By: #### G IPANEL #### [facility] [address] [place] [address] Dr. Layla Hennessy Lamblia Not detected Normal NOT DETECTED [facility] Comment on above: Performed By: #### G IPANEL #### [facility] [address] [place] [address] Dr. Layla STEINBERG CONTROLS PASSED Normal [facility] Comment on above: Performed By: #### G IPANEL #### [facility] [address] [place] [address] Dr. Layla ALEXIS BELEN HEADER GI PANEL BACTERIA Normal [facility] Comment on above: Performed By: #### G IPANEL #### [facility] [address] [place] [address] Dr. Layla ALEXISHD ECOLI GI PANEL DIARRHEAGENIC E.COLI / SHIGELLA Normal [facility] Comment on above: Performed By: #### G IPANEL #### [facility] [address] [address] [address] Layla SARAVIA INFO SEE BELOW Normal [facility] Comment on above: Result Comment: EAEC - Enteroaggregative E. Coli EPEC- Enteropathogenic E. Coli ETEC- Enterotoxigenic E. Coli lt/st STEC- Shigella-like toxin-producing E. Coli stx1/stx2 EIEC- Shigella/Enteroinvasive E. Coli Performed By: #### G IPANEL #### [facility] [address] [address] [address] Layla SARAVIA PARASITES GI PANEL PARASITES Normal [facility] Comment on above: Performed By: #### G IPANEL #### [facility] [address] [place] [address] Dr. Layla SARAVIA VIRUS GI PANEL VIRUSES Normal [facility] Comment on above: Performed By: #### G IPANEL #### [facility] [address] [place] [address] Dr. Layla Barrera Norovirus GI/GII Not detected Normal NOT DETECTED [facility] Comment on above: Performed By: #### G IPANEL #### [facility] [address] [place] [address] Dr. Layla Barrera P. Shigelloides Not detected Normal NOT DETECTED [facility] Comment on above: Performed By: #### G IPANEL #### [facility] [address] [place] [address] Dr. Layla Barrera Rotavirus A Not detected Normal NOT DETECTED [facility] [place] Comment on above: Performed By: #### G IPANEL #### [facility] [address] [place] [address] Dr. Layla Barrera Salmonella Not detected Normal NOT DETECTED The [facility] Comment on above: Performed By: #### G IPANEL #### [facility] [address] [place] [address] Dr. Layla Barrera Sapovirus Not detected Normal NOT DETECTED The [facility] Comment on above: Performed By: #### G IPANEL #### [facility] [address] [place] [address] Dr. Layla Barrera STEC Not detected Normal NOT DETECTED The [facility] Comment on above: Performed By: #### G IPANEL #### [facility] [address] [address] [address] Layla Barrera Vibrio Not detected Normal NOT DETECTED The [facility] Comment on above: Performed By: #### G IPANEL #### [facility] [address] [place] [address] Dr. Layla Barrera Vibrio Cholera Not detected Normal NOT DETECTED The [facility] Comment on above: Performed By: #### G IPANEL #### [facility] [address] [address] [address] Layla Barrera Y. Enterocolitica Not detected Normal NOT DETECTED [facility] Comment on above: Performed By: #### G IPANEL #### [facility] [address] [place] [address] Dr. Layla Barrera GLYCOHEMOGLOBIN A1Con 2021 ADA RECOMMENDATION SEE BELOW Normal [facility] Comment on above: Result Comment: ADA RECOMMENDED LIMIT 4.0 - 6.0 ADA THERAPEUTIC TARGET < 7.0 ACTION SUGGESTED > 7.0 Performed By: #### G IPANEL #### [facility] [address] [place] [address] Dr. Layla Barrera Glucose [Mass/Vol] 134 mg/dL Normal [facility] Comment on above: Performed By: #### G IPANEL #### [facility] [address] [place] [address] Dr. Layla Barrera HbA1c (Bld) [Mass fraction] 6.3 % Critically high 4.5-6.2 [facility] Comment on above: Performed By: #### G IPANEL #### [facility] [address] [address] [address] Layla Barrera LIPASEon 03-11-2022 Lipase [Catalytic activity/Vol] 82.0 U/L Normal 73.0-393.0 [facility] Comment on above: Performed By: #### G IPANEL #### [facility] [address] [place] [address] Dr. Layla Barrera LIPID PROFILEon 03-11-2022 CHOL-HDL RATIO NORM SEE BELOW Normal [facility] Comment on above: Result Comment: 3.3 - 4.4 LOW RISK 4.4 - 7.1 AVERAGE RISK 7.1 - 11.0 MODERATE RISK >11.0 HIGH RISK Performed By: #### G IPANEL #### [facility] [address] [place], [place] [address] Dr. Layla Barrera Cholesterol [Mass/Vol] 216 mg/dL Critically high <=200 [facility] Comment on above: Performed By: #### G IPANEL #### [facility] [address] [address] [address] Layla Barrera Cholesterol in HDL [Mass/Vol] 47 mg/dL Normal 40-60 [facility] Comment on above: Performed By: #### G IPANEL #### [facility] [address] [address] [address] Layla Barrera Cholesterol in LDL [Mass/Vol] 134.4 mg/dL Normal [facility] Comment on above: Performed By: #### G IPANEL #### [facility] [address] [address] [address] Layla Barrera Cholesterol.total/ Cholesterol in HDL [Mass ratio] 4.6 {ratio} Normal [facility] Comment on above: Performed By: #### G IPANEL #### [facility] [address] [address] [address] Layla Barrera HDL NORMAL > or = 60 mg/dl - LO W CARDIOVASCULAR RISK <40 mg/dl - HIGH CARDIOVASCULAR RISK Normal [facility] Comment on above: Performed By: #### G IPANEL #### [facility] [address] [address] [address] Layla Barrera LDL CALC NORMAL SEE BELOW Normal [facility] [place] Comment on above: Result Comment: <100 mg/dl OPTIMAL 100 - 129 mg/dl NEAR OR ABOVE OPTIMAL 130 - 159 mg/dl BORDERLINE HIGH 160 - 189 mg/dl HIGH >190 mg/dl VERY HIGH Performed By: #### G IPANEL #### [facility] [address] [address] [address] Layla Barrera Triglyceride [Mass/Vol] 173 mg/dL Critically high <=150 [facility] Comment on above: Performed By: #### G IPANEL #### [facility] [address] [place] [address] Dr. Layla Barrera VLDL CALC 34.6 mg/dL Normal [facility] Comment on above: Performed By: #### G IPANEL #### [facility] [address] [place] [address] Dr. Layla Barrera OCC BLD IMMUNO SCREENon OCCULT BLOOD Negative Normal NEGATIVE [facility] Comment on above: Performed By: #### C BC #### [facility] [address] [place] [address] Dr. Layla Barrera PROF 14(COMP METB)on 022 Albumin [Mass/Vol] 3.7 g/dL Normal 3.4-5.0 [facility] Comment on above: Performed By: #### C BC #### [facility] [address] [place] [address] Dr. Layla Barrera Albumin/Globulin [Mass ratio] 1.1 {ratio} Normal [facility] Comment on above: Performed By: #### C BC #### [facility] [address] [place] [address] Dr. Layla Barrera ALP [Catalytic activity/Vol] 90 U/L Normal 46-116 [facility] Comment on above: Performed By: #### C BC #### [facility] [address] [place] [address] Dr. Layla Barrera ALT [Catalytic activity/Vol] 66 U/L Critically high 16-63 [facility] Comment on above: Performed By: #### C BC #### [facility] [address] [place] [address] Dr. Layla Barrera Anion gap [Moles/Vol] 12.8 mmol/L Normal [facility] Comment on above: Performed By: #### C BC #### [facility] [address] [place] [address] Dr. Layla Barrera AST [Catalytic activity/Vol] 32 U/L Normal 15-37 [facility] Comment on above: Performed By: #### C BC #### [facility] [address] [address] [address] Layla Barrera Bilirubin [Mass/Vol] 0.7 mg/dL Normal 0.2-1.0 [facility] Comment on above: Performed By: #### C BC #### [facility] [address] [address] [address] Layla Barrera Calcium [Mass/Vol] 8.9 mg/dL Normal 8.5-10.1 [facility] Comment on above: Performed By: #### C BC #### [facility] [address] [place] [address] Dr. Layla Barrera Chloride [Moles/Vol] 100 mmol/L Normal 98-107 [facility] Comment on above: Performed By: #### C BC #### [facility] [address] [place] [address] Dr. Layla Barrera CO2 [Moles/Vol] 27.9 mmol/L Normal 21.0-32.0 [facility] Comment on above: Performed By: #### C BC #### [facility] [address] [place] [address] Dr. Layla Barrera Creatinine [Mass/Vol] 1.30 mg/dL Normal 0.70-1.30 [facility] Comment on above: Performed By: #### C BC #### [facility] [address] [place] [address] Dr. Layla Barrera EGFR-AF MALAGASY >60 Normal >=60 [facility] Comment on above: Performed By: #### C BC #### [facility] [address] [place] [address] Dr. Layla Barrera EGFR-NON AF MALAGASY 53 mL/min/1.73m2 Critically low >=60 [facility] Comment on above: Performed By: #### C BC #### [facility] [address] [place] [address] Dr. Layla Barrera Globulin (S) [Mass/Vol] 3.3 g/dL Normal [facility] Comment on above: Performed By: #### C BC #### [facility] [address] [address] [address] Layla Barrera Glucose [Mass/Vol] 137 mg/dL Critically high 74-106 [facility] Comment on above: Performed By: #### C BC #### [facility] [address] [address] [address] Layla Barrera Potassium [Moles/Vol] 3.7 mmol/L Normal 3.5-5.1 [facility] Comment on above: Performed By: #### C BC #### [facility] [address] [address] [address] Layla Barrera Protein [Mass/Vol] 7.0 g/dL Normal 6.4-8.2 [facility] Comment on above: Performed By: #### C BC #### [facility] [address] [address] [address] Layla Barrera Sodium [Moles/Vol] 137 mmol/L Normal 136-145 [facility] Comment on above: Performed By: #### C BC #### [facility] [address] [address] [address] Layla Barrera Urea nitrogen [Mass/Vol] 20.0 mg/dL Critically high 7.0-18.0 [facility] Comment on above: Performed By: #### C BC #### [facility] [address] [address] [address] Layla Barrera Urea nitrogen/Creatinin e [Mass ratio] 15.4 mg/mg Normal [facility] Comment on above: Performed By: #### C BC #### [facility] [address] [address] [address] Layla Barrera URIC ACID SERUMon 03-11-2022 Urate [Mass/Vol] 8.3 mg/dL Critically high 3.5-7.2 [facility] Comment on above: Performed By: #### G IPANEL #### [facility] [address] [address] [address] Layla Barrera Office Visit (Cardiology)on 12-28-2021 [...] Patient Instructions By signing my name below, Krista Emery LPN.,Scribe, attest that this documentation has been [...] 09:51AM Hea (more content not included)... Normal [facility] Tobacco Screening.on 022 Fall risk assessment a) No falls within the last year [facility] [place] [address] DO Work Phone: Tobacco use status CP b) No [facility] [place] [address] DO Work Phone: [facility] CARDIAC STRESS/REST INJE CTIONon 12-21-2021 [facility] CARDIAC STRESS/REST INJECTION Patient Name: TRAVIS COBURN STUDY: MYOCARDIAL PERFUSION STRESS TEST WITH LEXISCAN Performing facility: 0 [facility] Provider: Azalea Deras MD, FACC PCP: Dr. Navarrete Supervising provider: Wade Ramos DO, [facility] INDICATION: CAD; Dyspnea HISTORY: Gender: M; Age: 81 y/o ; Height: 0 cm; Weight: 627.6763607 kg. CAD; High Cholesterol; HTN; SOB; Fatigue; Quit smoking 30 years ago. Cardiac catheterization on 2005. COMPARISON: Previous nuclear testing completed [id number] at [facility]. ACCESSION NUMBER(S): [id number]; [id number]; [id number] ORDERING CLINICIAN: JOHNNIE DREAS TECHNIQUE: TWO DAY protocol. Stress injection: Date:12-21-21, [...] Electronically signed by: ABDOUL TIMMONS MD Normal [facility] No Panel Informationon 12-21 Normal -[facility] [address] DO Work Phone: Office [...] All medical record entries made by the Javieribe were at my direction and personally dictated [...] DAILY. Allergies (more content not included)... Normal [facility] Tobacco Screening.on 022 Adult depression screening assessment No [facility] [place] [facility] DO Work Phone: Fall risk assessment a) No falls within the last year [facility] [place] [address] DO Work Phone: Tobacco use status [facility] b) No [facility] [address] DO Work Phone: C REACTIVE PROTEINon 022 CRP [Mass/Vol] 3.3 mg/L Normal 0.0-7.0 [facility] Comment on above: Performed By: #### 6 1405 #### [facility] [address] CBC AUTO DIFFon 11-25-2021 BASO # 0.0 103/ul Normal 0.0-0.1 [facility] Comment on above: Performed By: #### G IPANEL #### [facility] [address] [place] [address] Dr. Layla Barrera Basophils/100 WBC (Bld) 0.5 % Normal 0.2-2.0 [facility] Comment on above: Performed By: #### G IPANEL #### [facility] [address] [place] [address] Dr. Layla Barrera EO # 0.2 103/ul Normal 0.0-0.7 [facility] Comment on above: Performed By: #### G IPANEL #### [facility] [address] [place] [address] Dr. Layla Barrera Eosinophils/100 WBC (Bld) 3.0 % Normal 0.9-7.0 [facility] Comment on above: Performed By: #### G IPANEL #### [facility] [address] [place] [address] Dr. Layla Barrera Erythrocyte distribution width (RBC) [Ratio] 13.7 % Normal 11.0-15.0 [facility] Comment on above: Performed By: #### G IPANEL #### [facility] [address] [place] [address] Dr. Layla Barrera Hematocrit (Bld) [Volume fraction] 40.0 % Critically low 42.0-54.0 [facility] Comment on above: Performed By: #### G IPANEL #### [facility] [address] [address] [address] Layla Barrera Hemoglobin (Bld) [Mass/Vol] 13.4 g/dL Critically low 14.0-18.0 [facility] Comment on above: Performed By: #### G IPANEL #### [facility] [address] [place] [address] Dr. Layla Barrera IG # 0.02 10e3/ul Normal 0.00-0.03 [facility] Comment on above: Performed By: #### G IPANEL #### [facility] [address] [place] [address] Dr. Layla Barrera IG % 0.3 % Normal 0.0-0.5 [facility] Comment on above: Performed By: #### G IPANEL #### [facility] [address] [place] [address] Dr. Layla Barrera LYMPH # 2.4 103/ul Normal 1.2-3.8 [facility] Comment on above: Performed By: #### G IPANEL #### [facility] [address] [place] [address] Dr. Layla Barrera Lymphocytes/100 WBC (Bld) 39.6 % Normal 20.5-60.0 [facility] Comment on above: Performed By: #### G IPANEL #### [facility] [address] [place] [address] Dr. Layla Barrera MANUAL DIFF REQ NO Normal [facility] Comment on above: Performed By: #### G IPANEL #### [facility] [address] [address] [address] Layla Barrera MCH (RBC) [Entitic mass] 31.3 pg Normal 25.9-34.0 [facility] Comment on above: Performed By: #### G IPANEL #### [facility] [address] [place] [address] Dr. Layla Barrera MCHC (RBC) [Mass/Vol] 33.5 g/dL Normal 29.9-35.2 [facility] Comment on above: Performed By: #### G IPANEL #### [facility] [address] [address] [address] Layla Barrera MCV (RBC) [Entitic vol] 93.5 fL Normal 80.0-94.0 [facility] Comment on above: Performed By: #### G IPANEL #### [facility] [address] [place] [address] Dr. Layla Barrera MONO # 0.6 103/ul Normal 0.3-0.8 [facility] Comment on above: Performed By: #### G IPANEL #### [facility] [address] [place] [address] Dr. Layla Barrera Monocytes/100 WBC (Bld) 9.3 % Normal 1.7-12.0 [facility] Comment on above: Performed By: #### G IPANEL #### [facility] [address] [place] [address] Dr. Layla Barrera NEUT # 2.8 103/ul Normal 1.4-6.5 [facility] Comment on above: Performed By: #### G IPANEL #### [facility] [address] [place] [address] Dr. Layla Barrera Neutrophils/100 WBC (Bld) 47.3 % Normal 43.0-75.0 [facility] Comment on above: Performed By: #### G IPANEL #### [facility] [address] [place] [address] Dr. Layla Barrera Platelet mean volume (Bld) [Entitic vol] 10.4 fL Normal 9.5-13.5 [facility] Comment on above: Performed By: #### G IPANEL #### [facility] [address] [place] [address] Dr. Layla Barrera PLT 184 103/ul Normal 150-450 [facility] Comment on above: Performed By: #### G IPANEL #### [facility] [address] [place] [address] Dr. Layla Barrera RBC 4.28 106/ul Critically low 4.70-6.10 [facility] [place] Comment on above: Performed By: #### G IPANEL #### [facility] [address] [place] [address] Dr. Layla Barrera WBC 5.9 103/ul Normal 4.0-11.0 [facility] Comment on above: Performed By: #### G IPANEL #### [facility] [address] [address] [address] Layla Barrera CBC W/DIFFon 11-25-2021 ABS IMM GRANS 0.0 10*3/uL Normal 0.0-0.2 [facility] Comment on above: Performed By: #### 5 6505, 23928 #### [facility] [address] [place] [address], [facility] ABS NEUTROPHILS 3.6 10*3/uL Normal 1.6-7.6 [facility] Comment on above: Performed By: #### 5 6505, 22954 #### [facility] [address] [facility] [place] [address], [facility] Basophils (Bld) [#/Vol] 0.0 10*3/uL Normal 0.0-0.2 [facility] Comment on above: Performed By: #### 5 6505, 78769 #### [facility] [address] [facility] [place] [address], [facility] Basophils/100 WBC (Bld) 0.4 % Normal 0.0-1.0 [facility] Comment on above: Performed By: #### 5 6505, 52108 #### [facility] [address] [place] [address], [facility] Eosinophils (Bld) [#/Vol] 0.2 10*3/uL Normal 0.0-0.5 [facility] Comment on above: Performed By: #### 5 6505, 93911 #### [facility] [address] [facility] [place] [address], [facility] Eosinophils/100 WBC (Bld) 2.2 % Normal 0.0-6.0 [facility] Comment on above: Performed By: #### 5 6505, 05921 #### [facility] [address] Erythrocyte distribution width (RBC) [Ratio] 13.6 % Normal 11.5-15.0 [facility] Comment on above: Performed By: #### 5 6505, 72283 #### [facility] [address] [place] [id number], [facility] Hematocrit (Bld) [Volume fraction] 40.4 % Normal 39.0-50.0 [facility] Comment on above: Performed By: #### 5 6505, 03819 #### [facility] [address] [facility] [place] [address], [facility] Hemoglobin (Bld) [Mass/Vol] 13.7 g/dL Normal 13.0-17.0 [facility] Comment on above: Performed By: #### 5 6505, 98308 #### [facility] [address] [facility] [place] [address], [facility] IMMATURE GRANS 0.3 % Normal 0.0-1.0 [facility] Comment on above: Performed By: #### 5 6505, 72254 #### [facility] [address] [facility] [place] [address], [facility] Lymphocytes (Bld) [#/Vol] 2.4 10*3/uL Normal 1.2-4.0 [facility] Comment on above: Performed By: #### 5 6505, 53789 #### [facility] [address] [facility] [place] [address], [facility] Lymphocytes/100 WBC (Bld) 35.0 % Normal 20.0-45.0 [facility] Comment on above: Performed By: #### 5 6505, 56243 #### [facility] [address] [place] [address], [facility] MCH (RBC) [Entitic mass] 31.8 pg Normal 27.0-33.0 [facility] Comment on above: Performed By: #### 5 6505, 51440 #### [facility] [address] [place] [address], [facility] MCHC (RBC) [Mass/Vol] 33.9 g/dL Normal 32.0-35.0 [facility] Comment on above: Performed By: #### 5 6505, 85964 #### [facility] [address] [place] [address], [facility] MCV (RBC) [Entitic vol] 93.7 fL Normal 82.0-98.0 [facility] Comment on above: Performed By: #### 5 6505, 36728 #### [facility] [address] [facility] [place] [address], [facility] Monocytes (Bld) [#/Vol] 0.6 10*3/uL Normal 0.1-1.0 [facility] Comment on above: Performed By: #### 5 6505, 09382 #### [facility] [address] [facility] [place] [address], [facility] MONOS 8.4 % Normal 5.0-12.0 [facility] Comment on above: Performed By: #### 5 6505, 15974 #### [facility] [address] [facility] [place] [address], [facility] Neutrophils/100 WBC (Bld) 53.7 % Normal 40.0-72.0 [facility] Comment on above: Performed By: #### 5 6505, 21773 #### [facility] [address] [facility] [place] [address], [facility] Nucleated RBC/100 WBC (Bld) [Ratio] 0 % Normal 0-0 [facility] Comment on above: Performed By: #### 5 6505, 54869 #### [facility] [address] [place] [address], [facility] PLAT CNT 198 10*3/uL Normal 150-400 [facility] Comment on above: Performed By: #### 5 6505, 88051 #### [facility] [address] [place] [address], [facility] RBC (Bld) [#/Vol] 4.31 10*6/uL Normal 4.20-5.70 [facility] Comment on above: Performed By: #### 5 6506, 97288 #### [facility] [address] [place] [address], [facility] WBC (Bld) [#/Vol] 6.75 10*3/uL Normal 4.00-10.60 [facility] Comment on above: Performed By: #### 5 6506, 34243 #### [facility] [address] [place] [address], [facility] COMP METABOLIC PANELon 11-25 Albumin [Mass/Vol] 4.1 g/dL Normal 3.5-5.7 [facility] Comment on above: Performed By: #### 0 0121 #### [facility] [address] [place] [address], [facility] ALKALINE PHOSPH 87 IU/L Normal 34-104 [facility] Comment on above: Performed By: #### 0 0121 #### [facility] [address] [place] [address], [facility] ALT [Catalytic activity/Vol] 47 U/L Normal 7-52 [facility] Comment on above: Performed By: #### 0 0121 #### [facility] [address] [place] [address], [facility] AST [Catalytic activity/Vol] 29 U/L Normal 13-39 [facility] Comment on above: Performed By: #### 0 0121 #### [facility] [address] [place] [address], [facility] Bilirubin [Mass/Vol] 0.7 mg/dL Normal 0.3-1.0 [facility] Comment on above: Performed By: #### 0 0121 #### [facility] [address] [place] [address], [place] Calcium [Mass/Vol] 9.7 mg/dL Normal 8.6-10.3 [facility] Comment on above: Performed By: #### 0 0121 #### [facility] [address] [place] [address], [place] Chloride [Moles/Vol] 103 mmol/L Normal 98-107 [facility] Comment on above: Performed By: #### 0 0121 #### [facility] [address] [place] [address], [place] CO2 [Moles/Vol] 30 mmol/L Normal 21-31 [facility] Comment on above: Performed By: #### 0 0121 #### [facility] [address] [place] [address], [place] Creatinine [Mass/Vol] 1.06 mg/dL Normal 0.70-1.30 [facility] Comment on above: Performed By: #### 0 0121 #### [facility] [address] [place] [address], [place] GFR/1.73 sq M.predicted among blacks MDRD (S/P/Bld) [Vol rate/Area] mL/min/{1.73_m2} Normal >60 [facility] Comment on above: Result Comment: Calc ulation may not be valid for patients over 70 years Performed By: #### 0 0121 #### [facility] [address] [place] [address], [place] GFR/1.73 sq M.predicted among non-blacks MDRD (S/P/Bld) [Vol rate/Area] mL/min/{1.73_m2} Normal >60 [facility] Comment on above: Result Comment: Calc ulation may not be valid for patients over 70 years Performed By: #### 0 0121 #### [facility] [address] [place] [address], [place] Glucose [Mass/Vol] 94 mg/dL Normal 70-100 [facility] Comment on above: Performed By: #### 0 0121 #### [facility] [address] [place] [address], [facility] Potassium [Moles/Vol] 4.7 mmol/L Normal 3.5-5.1 [facility] Comment on above: Performed By: #### 0 0121 #### [facility] [address] [place] [address], [facility] Protein [Mass/Vol] 6.6 g/dL Normal 6.0-8.3 [facility] Comment on above: Performed By: #### 0 0121 #### [facility] [address] [place] [address], [facility] Sodium [Moles/Vol] 138 mmol/L Normal 136-145 [facility] Comment on above: Performed By: #### 0 0121 #### [facility] [address] [place] [address], [facility] Urea nitrogen [Mass/Vol] 17 mg/dL Normal 7-25 [facility] Comment on above: Performed By: #### 0 0121 #### [facility] [address] [place] [address], [facility] FREE THYROXINE INDEX T7on FTI 2.38 Normal 1.30-4.50 [facility] Comment on above: Performed By: #### T ESMER, CMP, T7, MG #### [facility] [address] [address] [address] Layla Barrera T3U 34.0 % Normal 33.0-40.0 [facility] Comment on above: Performed By: #### T ESMER, CMP, T7, MG #### [facility] [address] [address] [address] Layla Barrera T4 [Mass/Vol] 7.00 ug/dL Normal 4.50-12.10 [facility] Comment on above: Performed By: #### T ESMER, CMP, T7, MG #### [facility] [address] [place] [address] Dr. Layla Barrera MAGNESIUMon 11-25-2021 Magnesium [Mass/Vol] 1.7 mg/dL Critically low 1.8-2.4 [facility] Comment on above: Performed By: #### T SH, CMP, T7, MG #### [facility] [address] [address] [address] Layla Barrera PROF 14(COMP METB)on 022 Albumin [Mass/Vol] 3.5 g/dL Normal 3.4-5.0 [facility] Comment on above: Performed By: #### T SH, CMP, T7, MG #### [facility] [address] [place] [address] Dr. Layla Barrera Albumin/Globulin [Mass ratio] 1.1 {ratio} Normal [facility] Comment on above: Performed By: #### T SH, CMP, T7, MG #### [facility] [address] [place] [address] Dr. Layla Barrera ALP [Catalytic activity/Vol] 97 U/L Normal 46-116 [facility] Comment on above: Performed By: #### T SH, CMP, T7, MG #### [facility] [address] [place] [address] Dr. Layla Barrera ALT [Catalytic activity/Vol] 64 U/L Critically high 16-63 [facility] Comment on above: Performed By: #### T SH, CMP, T7, MG #### [facility] [address] [place] [address] Dr. Layla Barrera Anion gap [Moles/Vol] 11.6 mmol/L Normal [facility] Comment on above: Performed By: #### T SH, CMP, T7, MG #### [facility] [address] [place] [address] Dr. Lyala Barrera AST [Catalytic activity/Vol] 27 U/L Normal 15-37 [facility] Comment on above: Performed By: #### T SH, CMP, T7, MG #### [facility] [address] [address] [address] Lalya Barrera Bilirubin [Mass/Vol] 0.8 mg/dL Normal 0.2-1.0 [facility] Comment on above: Performed By: #### T SH, CMP, T7, MG #### [facility] [address] [address] [address] Layla Barrera Calcium [Mass/Vol] 9.0 mg/dL Normal 8.5-10.1 [facility] Comment on above: Performed By: #### T SH, CMP, T7, MG #### [facility] [address] [place] [address] Dr. Layla Barrera Chloride [Moles/Vol] 102 mmol/L Normal 98-107 [facility] Comment on above: Performed By: #### T SH, CMP, T7, MG #### [facility] [address] [place] [address] Dr. Layla Barrera CO2 [Moles/Vol] 27.3 mmol/L Normal 21.0-32.0 [facility] Comment on above: Performed By: #### T SH, CMP, T7, MG #### [facility] [address] [address] [address] Layla Barrera Creatinine [Mass/Vol] 1.15 mg/dL Normal 0.70-1.30 [facility] Comment on above: Performed By: #### T SH, CMP, T7, MG #### [facility] [address] [place] [address] Dr. Layla Barrera EGFR-AF MALAGASY >60 Normal >=60 [facility] Comment on above: Performed By: #### T SH, CMP, T7, MG #### [facility] [address] [place] [address] Dr. Layla Barrera EGFR-NON AF MALAGASY >60 Normal >=60 [facility] Comment on above: Performed By: #### T SH, CMP, T7, MG #### [facility] [address] [place] [address] Dr. Layla Barrera Globulin (S) [Mass/Vol] 3.3 g/dL Normal [facility] Comment on above: Performed By: #### T SH, CMP, T7, MG #### [facility] [address] [address] [address] Layla Barrera Glucose [Mass/Vol] 144 mg/dL Critically high 74-106 [facility] Comment on above: Performed By: #### T SH, CMP, T7, MG #### [facility] [address] [place] [address] Dr. Layla Barrera Potassium [Moles/Vol] 3.9 mmol/L Normal 3.5-5.1 [facility] Comment on above: Performed By: #### T SH, CMP, T7, MG #### [facility] [address] [place] [address] Dr. Layla Barrera Protein [Mass/Vol] 6.8 g/dL Normal 6.4-8.2 [facility] Comment on above: Performed By: #### T SH, CMP, T7, MG #### [facility] [address] [place] [address] Dr. Layla Barrera Sodium [Moles/Vol] 137 mmol/L Normal 136-145 [facility] Comment on above: Performed By: #### T SH, CMP, T7, MG #### [facility] [address] [address] [address] Layla Barrera Urea nitrogen [Mass/Vol] 16.0 mg/dL Normal 7.0-18.0 [facility] Comment on above: Performed By: #### T SH, CMP, T7, MG #### [facility] [address] [place] [address] Dr. Layla Barrera Urea nitrogen/Creatinin e [Mass ratio] 13.9 mg/mg Normal [facility] Comment on above: Performed By: #### T SH, CMP, T7, MG #### [facility] [address] [place] [address] Dr. Layla Barrera SEDIMENTATION RATEon 022 SED RATE 10 mm/hr Normal 0-10 [facility] Comment on above: Performed By: #### 5 [id number], 68416 #### [facility] [address] TSHon 11-25-2021 TSH 2.406 uIU/mL Normal 0.358-3.740 [facility] Comment on above: Performed By: #### T SH, CMP, T7, MG #### [facility] [address] [address] [address] Layla Barrera TSH RANGE SEE BELOW Normal [facility] Comment on above: Result Comment: <0.3 4 UIU/ml HYPERTHYROID 0.34-5.60 UIU/ml EUTHYROID >5.60 UIU/ml HYPOTHYROID Performed By: #### T SH, CMP, T7, MG #### [facility] [address] [address] [address] Layla Barrera CBC W/DIFFon 05-27-2021 ABS IMM GRANS 0.0 10*3/uL Normal 0.0-0.2 [facility] Comment on above: Performed By: #### 5 0103 #### [facility] [address] [place] [address], [facility] ABS NEUTROPHILS 3.8 10*3/uL Normal 1.6-7.6 [facility] Comment on above: Performed By: #### 5 0103 #### [facility] [address] [place] [address], [facility] Basophils (Bld) [#/Vol] 0.0 10*3/uL Normal 0.0-0.2 [facility] Comment on above: Performed By: #### 5 0103 #### [facility] [address] [place] [address], [facility] Basophils/100 WBC (Bld) 0.6 % Normal 0.0-1.0 [facility] Comment on above: Performed By: #### 5 0103 #### [facility] [address] [place] [address], [facility] Eosinophils (Bld) [#/Vol] 0.2 10*3/uL Normal 0.0-0.5 [facility] Comment on above: Performed By: #### 5 0103 #### [facility] [address] [facility] [place] [address], [facility] Eosinophils/100 WBC (Bld) 2.7 % Normal 0.0-6.0 [facility] Comment on above: Performed By: #### 5 0103 #### [facility] [address] [facility] [place] Erythrocyte distribution width (RBC) [Ratio] 13.4 % Normal 11.5-15.0 [facility] Comment on above: Performed By: #### 5 0103 #### [facility] [address] Hematocrit (Bld) [Volume fraction] 41.7 % Normal 39.0-50.0 [facility] Comment on above: Performed By: #### 5 0103 #### [facility] 3000 [facility]. [address] Hemoglobin (Bld) [Mass/Vol] 14.3 g/dL Normal 13.0-17.0 [facility] Comment on above: Performed By: #### 5 0103 #### [facility] [address] [facility] IMMATURE GRANS 0.6 % Normal 0.0-1.0 [facility] Comment on above: Performed By: #### 5 0103 #### [facility] [address] Lymphocytes (Bld) [#/Vol] 2.5 10*3/uL Normal 1.2-4.0 [facility] Comment on above: Performed By: #### 5 3 #### [facility] [address] [facility] [place] [address], [facility] Lymphocytes/100 WBC (Bld) 35.0 % Normal 20.0-45.0 [facility] Comment on above: Performed By: #### 5 0103 #### [facility] [address] [place] [address], [facility] MCH (RBC) [Entitic mass] 31.6 pg Normal 27.0-33.0 [facility] Comment on above: Performed By: #### 5 0103 #### [facility] [address] [facility] [place] [address], [facility] MCHC (RBC) [Mass/Vol] 34.3 g/dL Normal 32.0-35.0 [facility] Comment on above: Performed By: #### 5 0103 #### [facility] [address] [facility] [place] [address], [facility] MCV (RBC) [Entitic vol] 92.3 fL Normal 82.0-98.0 [facility] Comment on above: Performed By: #### 5 0103 #### [facility] [address] [facility] [place] [address], [facility] Monocytes (Bld) [#/Vol] 0.5 10*3/uL Normal 0.1-1.0 [facility] Comment on above: Performed By: #### 5 0103 #### [facility] [address] [facility] [place] [address], [facility] MONOS 7.4 % Normal 5.0-12.0 [facility] Comment on above: Performed By: #### 5 0103 #### [facility] [address] [facility] [place] [address], [facility] Neutrophils/100 WBC (Bld) 53.7 % Normal 40.0-72.0 [facility] Comment on above: Performed By: #### 5 3 #### [facility] [address] [place] [address], [facility] Nucleated RBC/100 WBC (Bld) [Ratio] 0 % Normal 0-0 [facility] Comment on above: Performed By: #### 5 3 #### [facility] [address] [place] [address], [facility] PLAT CNT 194 10*3/uL Normal 150-400 [facility] Comment on above: Performed By: #### 5 3 #### [facility] [address] [place] [address], [facility] RBC (Bld) [#/Vol] 4.52 10*6/uL Normal 4.20-5.70 [facility] Comment on above: Performed By: #### 5 0103 #### [facility] [address] [place] [address], [facility] WBC (Bld) [#/Vol] 7.02 10*3/uL Normal 4.00-10.60 [facility] Comment on above: Performed By: #### 5 3 #### [facility] [address] [place] [address], [facility] LIVER BATTERYon 05-27-2021 Albumin [Mass/Vol] 4.1 g/dL Normal 3.5-5.7 [facility] Comment on above: Performed By: #### 9 9909 #### [facility] [address] [place] [id number], [facility] ALKALINE PHOSPH 75 IU/L Normal 34-104 [facility] Comment on above: Performed By: #### 9 9909 #### [facility] [address] [place] [address], [facility] ALT [Catalytic activity/Vol] 42 U/L Normal 7-52 [facility] Comment on above: Performed By: #### 9 9909 #### [facility] [address] [place] [address], [facility] AST [Catalytic activity/Vol] 27 U/L Normal 13-39 [facility] Comment on above: Performed By: #### 9 9909 #### [facility] [address] [place] [address], [facility] Bilirubin [Mass/Vol] 0.5 mg/dL Normal 0.3-1.0 [facility] Comment on above: Performed By: #### 9 9909 #### [facility] [address] [place] [address], [facility] Bilirubin.direct [Mass/Vol] 0.1 mg/dL Normal 0.0-0.2 [facility] Comment on above: Performed By: #### 9 9909 #### [facility] [address] [place] [address], [facility] Protein [Mass/Vol] 6.8 g/dL Normal 6.0-8.3 [facility] Comment on above: Performed By: #### 9 9909 #### [facility] [address] [place] [address], [facility] Vital Signs Date Time Vital Sign Value Performing Clinician Facility 07-18-2023 14:14-0500 Blood Pressure Location Wade LILLY [facility] [place] 07-18-2023 14:14-0500 Diastolic blood pressure 88 mm[Hg] Wade LILLY [facility] [place] 07-18-2023 14:14-0500 Heart rate 92 /min Wade LILLY [facility] [place] 07-18-2023 14:14-0500 Respiratory rate 16 /min Wade LILLY [facility] [place] 07-18-2023 14:14-0500 Systolic blood pressure 138 mm[Hg] Wade LILLY [facility] [place] 03-20-2023 14:45-0400 Diastolic blood pressure 92 mm[Hg] Nguyễn VELA [facility] 03-20-2023 14:45-0400 Mean blood pressure 111 mm[Hg] Nguyễn VELA [facility] 03-20-2023 14:45-0400 Systolic blood pressure 150 mm[Hg] Nguyễn VELA [facility] 03-20-2023 14:29-0400 Blood Pressure Location Nguyễn VELA [facility] 03-20-2023 14:29-0400 Diastolic blood pressure 91 mm[Hg] Nguyễn VELA [facility] 03-20-2023 14:29-0400 Heart rate 86 /min Nguyễn VELA [facility] 03-20-2023 14:29-0400 Systolic blood pressure 158 mm[Hg] Nguyễn VELA [facility] 12-28-2021 10:15-0400 Body height 177.8 cm Mayra Molina Hoy Work Phone: [facility] DO Work Phone: 12-28-2021 10:15-0400 Body mass index (BMI) [Ratio] 34.15 kg/m2 Mayra Jesse Hoy Work Phone: [facility] DO Work Phone: 12-28-2021 10:15-0400 Body surface area Derived from formula 2.25 m2 Mayra Jesse Hoy Work Phone: [facility] DO Work Phone: 12-28-2021 10:15-0400 Body weight 107.96 kg Mayra M Hoy Work Phone: [facility] DO Work Phone: 12-28-2021 10:15-0400 Diastolic blood pressure 70 mm[Hg] Mayra M Hoy Work Phone: [facility] DO Work Phone: 12-28-2021 10:15-0400 Heart rate 60 /min Mayra M Hoy Work Phone: [facility] DO Work Phone: 12-28-2021 10:15-0400 Systolic blood pressure 138 mm[Hg] Mayra M Hoy Work Phone: [facility] DO Work Phone: 12-28-2021 09:51-0400 Body height 177.8 cm Mayra M Hoy Work Phone: [facility] DO Work Phone: 12-28-2021 09:51-0400 Body mass index (BMI) [Ratio] 34.15 kg/m2 Mayra M Hoy Work Phone: [facility] DO Work Phone: 12-28-2021 09:51-0400 Body surface area Derived from formula 2.25 m2 Mayra M Hoy Work Phone: [facility] DO Work Phone: 12-28-2021 09:51-0400 Body weight 107.96 kg Mayra M Hoy Work Phone: [facility] DO Work Phone: 12-28-2021 09:51-0400 Diastolic blood pressure 70 mm[Hg] Mayra M Hoy Work Phone: [facility] DO Work Phone: 12-28-2021 09:51-0400 Heart rate 60 /min Mayra M Hoy Work Phone: [facility] DO Work Phone: 12-28-2021 09:51-0400 Systolic blood pressure 146 mm[Hg] Mayra M Hoy Work Phone: [facility] DO Work Phone: 12-22-2021 08:00-0400 53 1 Mayra M Hoy Work Phone: [facility] DO Work Phone: Comment on above: [id number] 12-08-2021 15:22-0400 Body height 177.8 cm Mayra M Hoy Work Phone: [facility] DO Work Phone: 12-08-2021 15:22-0400 Body mass index (BMI) [Ratio] 34.15 kg/m2 Mayra M Hoy Work Phone: [facility] DO Work Phone: 12-08-2021 15:22-0400 Body surface area Derived from formula 2.25 m2 Mayra M Hoy Work Phone: [facility] DO Work Phone: 12-08-2021 15:22-0400 Body weight 107.96 kg Mayra M Hoy Work Phone: [facility] DO Work Phone: 12-08-2021 15:22-0400 Diastolic blood pressure 70 mm[Hg] Mayra M Hoy Work Phone: [facility] DO Work Phone: 12-08-2021 15:22-0400 Heart rate 87 /min Mayra M Hoy Work Phone: [facility] DO Work Phone: 12-08-2021 15:22-0400 Systolic blood pressure 138 mm[Hg] Mayra M Hoy Work Phone: [facility] DO Work Phone: 12-08-2021 15:12-0400 Diastolic blood pressure 70 mm[Hg] Mayra Jesse Hoy Work Phone: [facility] DO Work Phone: 12-08-2021 15:12-0400 Systolic blood pressure 140 mm[Hg] Mayra M Hoy Work Phone: [facility] DO Work Phone: 12-08-2021 15:08-0400 Body height 177.8 cm Mayra Jesse Hoy Work Phone: [facility] DO Work Phone: 12-08-2021 15:08-0400 Body mass index (BMI) [Ratio] 34.15 kg/m2 Mayra Jesse Hoy Work Phone: [facility] DO Work Phone: 12-08-2021 15:08-0400 Body surface area Derived from formula 2.25 m2 Mayra Jesse Hoy Work Phone: [facility] DO Work Phone: 12-08-2021 15:08-0400 Body weight 107.96 kg Mayra Jesse Hoy Work Phone: [facility] DO Work Phone: 12-08-2021 15:08-0400 Diastolic blood pressure 82 mm[Hg] Mayra Jesse Hoy Work Phone: [facility] DO Work Phone: 12-08-2021 15:08-0400 Heart rate 87 /min Mayra Jesse Hoy Work Phone: [facility] DO Work Phone: 12-08-2021 15:08-0400 Systolic blood pressure 142 mm[Hg] Mayra Jesse Hoy Work Phone: [facility] DO Work Phone: Encounters Encounter Date Encounter Type Care Provider Facility Start: 09-13-2023 End: 09-14-2023 ambulatory Wade R NILL Facility: [facility] Start: 09-13-2023 End: 09-13-2023 Patient encounter procedure Wade R NILL [facility] Nill/Said [facility] Start: 09-01-2023 End: 09-02-2023 ambulatory Wade R NILL Facility: [facility] Start: 09-01-2023 End: 09-01-2023 Patient encounter procedure Wade R NILL [facility] Nill/Said [place] Start: 08-22-2023 End: 08-23-2023 ambulatory Mayra Navarrete Facility:[facility] Start: 08-22-2023 End: 08-22-2023 Patient encounter procedure Wade R NILL [facility] Nill/Said [facility] Start: 08-22-2023 End: 08-22-2023 ambulatory MD Mayra Navarrete Work Phone: [facility] Work Phone: Start: 08-22-2023 End: 08-22-2023 Departed Referred MD Mayra Navarrete Work Phone: [facility] Start: 08-17-2023 End: 08-17-2023 [facility] Start: 08-16-2023 End: 08-16-2023 ambulatory TOO THOMPSON [facility] Start: 07-20-2023 End: 07-20-2023 ambulatory RADHA EARL Not Available Start: 07-18-2023 End: 07-19-2023 ambulatory Wade R NILL Facility: [place] Start: 07-18-2023 End: 07-18-2023 Patient encounter procedure Wade R NILL General Surgery Nill/Said [facility] Start: 04-05-2023 ambulatory MAYRA NAVARRETE [facility] Start: 04-05-2023 End: 04-05-2023 ambulatory MICHELLE Molina [facility] Start: 03-20-2023 End: 03-21-2023 ambulatory Nguyễn VELA Facility:[facility] Start: 03-20-2023 End: 03-20-2023 Patient encounter procedure Nguyễn Brittani VELA [facility] [place] Start: 02-23-2023 End: 02-23-2023 ambulatory [facility] Start: 10-28-2022 DAYNA ORR, Provider : ALIYA YOUNG [employer] SPECIALIST 1,[id number], Status: Pen, Time: 10:00 AM Mayra Navarrete Work Phone: [facility] DO Work Phone: Start: 10-28-2022 Patient encounter procedure Mayra Correamichelle Work Phone: [facility] DO Work Phone: Start: 10-28-[address] Johnnie Deras II Facility: Start: 10-27-2022 End: 10-27-2022 ambulatory [facility] Start: 10-27-2022 Telephone encounter Mayra Navarrete Work Phone: [facility] DO Work Phone: Start: 10-25-2022 End: 10-26-2022 ambulatory KWADWO CRUMP Facility:[facility] Start: 08-25-2022 End: 08-25-2022 ambulatory LUIS DANIEL [facility] Start: 06-20-2022 End: 06-21-[address] MAYRA NAVARRETE . Facility:[facility] Start: 03-11-2022 End: 03-12-[address] MAYRA NAVARRETE . Facility:[facility] Start: 01-25-2022 Rx Renewal Mayra Navarrete Work Phone: [facility] DO Work Phone: Start: 12-30-2021 Chart Update Mayra Navarrete Work Phone: [facility] DO Work Phone: Start: 12-28-2021 Office outpatient vi sit 25 minutes Mayra Navarrete Work Phone: [facility] DO Work Phone: Start: 12-28-2021 Patient encounter procedure Mayra Navarrete Work Phone: [facility] DO Work Phone: Start: 12-28-[address] Mayra Navarrete Facility: Start: 12-08-2021 Office outpatient vi sit 25 minutes Mayra Navarrete Work Phone: [facility] DO Work Phone: Start: 12-08-[address] Mayra Navarrete Facility: Start: 11-25-2021 End: 11-26-[address] MAYRA NAVARRETE . Facility: Start: 11-24-2021 End: 11-25-[address] MAYRA NAVARRETE . Facility: Procedures Date Procedure Procedure Detail Performing Clinician Start: 08-22-2023 Excision of basal cell carcinoma Wade LILLY Start: 06-20-[address] MAYRA NAVARRETE . Comment on above: Performed By: #### IDRIS #### [facility] [address] [place] [address] Dr. Layla Barrera Start: 04-09-2014 right knee arthroscopy Nguyễn VELA Start: 02-25-2003 Cystoscopic removal of ureteric stent Nguyễn VELA Arthroscopic knee operation Nguyễn VELA Comment on above: left Arthroscopy of knee Mayra M Landon Work Phone: Comment on above: (Therapeutic) Bilateral; Cardiac catheterization Ruben las M Landon Work Phone: Colonoscopy Nguyễn VELA Comment on above: many Cystoscopy Nguyễn VELA Elbow joint operations Dougl as M Landon Work Phone: Comment on above: Left; Esophagogastroduodenoscopy P apple VELA Excision of basal cell carcinoma Mayra M Landon Work Phone: Excision of mass of breast Jesse LILLY Extracorporeal shock wave lithotripsy of calculus of kidney Nguyễn VELA heart catheterization Krish VELA Hemorrhoidectomy Nguyễn JOSEPH ERS History of repair of musculotendinous cuff of shoulder Nguyễn VELA Comment on above: left Operation on nose Mayra M Landon Work Phone: Prostate Surgery Nguyễn GOLDEN Renal lithotripsy Mayra M Landon Work Phone: Repair of elbow Nguyễn HERRMANN RS Comment on above: left Repair of musculoten dinous cuff of shoulder Mayra M Hoy Work Phone: Comment on above: Left; Shoulder Surgery Nguyễn JOSEPH ERS Total colonoscopy Mayra M Landon Work Phone: Comment on above: 10Jul2017; Plan of Treatment Date Care Activity Detail Author Start: 11-27-2023 ambulatory Ambulatory Facility:[facility] Start: 12-06-2022 FUV, Provider: Johnnie Deras, Status: Pen, Time: 10:00 AM FUV, Provider: Johnnie Deras, Status: Pen, Time: 10:[address] [facility] 250 DO Work Phone: Start: 11-24-2022 FUV, Provider: Johnnie Deras, Status: Pen, Time: 2:00 PM FUV, Provider: Johnnie Deras, Status: Pen, Time: 2:00 PM [facility] 250 DO Work Phone: Start: 12-28-2021 FUV, Provider: Johnnie Deras, Status: Pen, Time: 9:45 AM FUV, Provider: Johnnie Deras, Status: Pen, Time: 9:45 AM [facility] 250 DO Work Phone: Start: 12-22-2021 REST ONLY, Provider: SABINE HHVI NUCLEAR 01,[id number], Status: Pen, Time: 8:00 AM REST ONLY, Provider: SABINE HHVI NUCLEAR 01,[id number], Status: Pen, Time: 8:00 AM [facility] 250 DO Work Phone: Start: 12-21-2021 STRESSNUC2, Provider : SABINE HHVI NUCLEAR 01,[id number], Status: Pen, Time: 8:00 AM STRESSNUC2, Provider: SABINE HHVI NUCLEAR 01,[id number], Status: Pen, Time: 8:00 AM [facility] 250 DO Work Phone: Immunizations Immunization Date Immunization Notes Care Provider Rachele torres 07-26-2022 Fluad Quadrivalent 0 .5 ML Intramuscular Prefilled Syringe Mayra Navarrete Work Phone: [facility] 250 DO Work Phone: 07-26-2022 influenza virus vaccine, unspecified formulation Nguyễn VELA [facility] 11-17-2021 Comirnaty 30 MCG/0.3 ML Intramuscular Suspension [facility]rete [facility] Work Phone: 11-17-2021 SARS-CoV-2 mRNA (suodmgdgtcg-swam-vfqwq se) vaccine Nguyễn VELA [facility] 05-20-2021 Pfizer-BioNTech COVID-19 Vacc 30 MCG/0.3ML Intramuscular Suspension Mayra Navarrete Work Phone: [facility] Comment on above: Result Comment: 2022: [id number] 11-17-2020 SARS-CoV-2 (COVID-19 ) mRNA BNT-162b2 vax Nguyễn VELA [facility] 10-29-2020 Pfizer-BioNTech COVID-19 Vacc 30 MCG/0.3ML Intramuscular Suspension Mayra Navarrete Work Phone: [facility] Comment on above: Result Comment: 2022: [id number] 10-27-2020 SARS-CoV-2 (COVID-19 ) mRNA BNT-162b2 vax Nguyễn VELA [facility] 10-06-2020 Pfizer-BioNTech COVID-19 Vacc 30 MCG/0.3ML Intramuscular Suspension Mayra Navarrete Work Phone: [facility] Comment on above: Result Comment: 2022: [id number] 04-23-2020 influenza virus vaccine, unspecified formulation Nguyễn VELA [facility] 04-23-2020 influenza, high dose seasonal, preservative-free Mayra Navarrete Work Phone: [facility] 250 DO Work Phone: 04-09-2018 influenza virus vaccine, unspecified formulation Mayra Navarrete Work Phone: [facility] 250 DO Work Phone: 07-10-2017 pneumococcal polysaccharide vaccine, 23 valent Mayra M Hoy Work Phone: [facility] 250 DO Work Phone: 04-09-2016 influenza virus vaccine, unspecified formulation Mayra M Hoy Work Phone: [facility] 250 DO Work Phone: 04-09-2016 pneumococcal conjuga te vaccine, 13 valent Mayra M Hoy Work Phone: [facility] 250 DO Work Phone: 04-22-2015 influenza virus vaccine, unspecified formulation Nguyễn [employer] [facility] 04-22-2015 influenza, injectabl e, quadrivalent, contains preservative Mayra M Hoy Work Phone: [facility] 250 DO Work Phone: 04-09-2015 influenza virus vaccine, unspecified formulation Mayra M Hoy Work Phone: [facility] 250 DO Work Phone: 05-22-2014 influenza virus vaccine, unspecified formulation Nguyễnmaranda VELA [facility] 05-22-2014 influenza, injectabl e, quadrivalent, contains preservative Mayra M Hoy Work Phone: [facility] 250 DO Work Phone: 07-10-2012 influenza virus vaccine, unspecified formulation Mayra M Hoy Work Phone: [facility] 250 DO Work Phone: 07-10-2011 pneumococcal polysaccharide vaccine, 23 valent Mayra M Hoy Work Phone: [facility] 250 DO Work Phone: influenza virus vaccine, unspecified formulation Mayra M Hoy Work Phone: [facility] 250 DO Work Phone: Comment on above: 2011 NEGATED: Highlighted row has not occurred!07-18-2023 influenza virus vaccine, unspecified formulation Wade [facility] [place] Payers Date Payer Category Payer Self-pay [id number] 1958 Medicare [id number] 1959 Private Health Insurance [id number] 1941 Unknown [id number] 2.16. [id number] 1941 Unknown [id number] 2.16. 840.1.066869.3.579.2.356 1941 Unknown [id number] 2.16. 840.1.804640.3.579.2.356 1941 Unknown [id number] 2.16.84 0.1.739900.3.579.2.593 1941 Unknown [id number] 2.16.84 0.1.847341.3.579.2.593 1941 Unknown [id number] 2.16.84 0.1.936064.3.579.2.593 1941 Unknown [id number] 2.16.84 0.1.156862.3.579.2.593 1941 Unknown [id number] 2.16.84 0.1.123666.3.579.2.593 1941 Unknown [id number] 2.16.8 40.1.712409.3.579.2.754 1941 Unknown [id number] 2.16.8 40.1.509060.3.579.2.754 1941 Unknown [id number] 2.16.84 0.1.859009.3.579.2.1259 1941 Unknown [id number] 2.16.8 40.1.278211.3.579.2.727 1941 Unknown [id number] 2.16.8 40.1.621445.3.579.2.727 1941 Unknown [id number] 2.16.8 40.1.328967.3.579.2.727 1941 Unknown [id number] 2.16.8 40.1.333925.3.579.2.727 1941 Unknown [id number] 2.16.8 40.1.677878.3.579.2.727 1941 Unknown [id number] 2.16.8 40.1.304073.3.579.2.727 Medicare [id number] Unknown Unknown [id number] Unknown [id number] 2.16.8 40.1.408418.3.579.2.531 Social History Date Type Detail Facility Caffeine use Caffeine use -[place] [address] DO Work Phone: Comment on above: Coffee: 1 cup dailyS ac- Occasionally; Quit: 1991; Start: 03-20-2023 End: 07-18-2023 Tobacco smoking status Ex-smoker (finding) [facility] Tobacco smoking status Never [facility] Sex Assigned At Male [facility] Start: 1940 Sex Assigned At Male F [facility] Functional Status Date Assessment Result Facility 07-18-2023 Functional Status N/A [facility] [place] 03-20-2023 Functional Status N/A [facility] Clinical Notes 08-25-2022 to 08-17-2023 Note [...] eyes as of lately. He notes some zvtg-rs-rdkcyrxb blurriness to his vision that comes and goes. 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 He notes he last saw his check and transfer beader about 5-6 months ago and all was [...] by Gumaro Butler MS4 and Dr. Brunner [facility] 08-16-2023 Note Attestation signed by Too Thompson MD at 08/19/2023 9:50 PM I saw, interviewed, examined and evaluated the patient with Nephrology fellow Dr. Faith Matias. I participated in the medical management of the patient. I reviewed the fellow's note and agree with the fellow's documentation in the note. Too Thompson MD Faculty, Division of Nephrology, Department of Medicine, [facility]. [facility] Patient: Travis Coburn; 82 y.o. Visit date: 08/16/23 Reason for today's visit: New patient, new Acute kidney injury SUBJECTIVE: BACKGROUND: Travis Coburn is a 82 y.o. male has a past medical history of Diabetes mellitus ([facility]), Hypertension, Polymyalgia rheumatica ([facility]), and Psoriatic arthritis ([facility]). Patient has history of Type II diabetes [...] oriented to pe (more content not included)... [facility] 07-18-2023 Note Chief Complaint consultation for [...] smoker, quit more (more content not included)... [facility] Comment on above: Result Comment: Elec tronically Signed By: MAXX TURNER, Wade Steele\Date and Time Signed: 07/18/23 14:37 EST 06-09-2023 Note TC to patient notifi ed of nephrology referral has been sent. NS [facility] 06-09-2023 Note Pt called needing a referral for nephrology. Pt states he would like to set up an appointment in [place], discussed in telephone call with you. [facility] 03-20-2023 Hospital Discharge instructions Patient Education [...] urethra. Follow these instructions at home: Take hcfi-kbq-ekvzsfp and prescription medicines only as told by [...] provider. Document Revised: 01/12/2022 Document Reviewed: 01/12/2022 [employer] Patient Education 2022 [employer]. Follow Up Care 08/23/2021 11:50:10 With:MIRIAN TURNER, Nguyễn Peter, URL Address: [facility] [address] , [place] [phone] When:Within 6 Month(s) [facility] Lydia 02-23-2023 Note Attestation signed by Luis [...] Follow-up in 3 months Keerthi Razo, MS4 [facility] 10-27-2022 Note Subjective Patient ID: Travis [...] past 36 hour(s)). No follow-ups on file. [facility] 08-25-2022 Note BEEN OFF HUMIRA FOR 3 MONTHS [facility] 08-25-2022 Note Attestation signed by [...] all orders for this visit: Psoriatic arthropathy ([facility]) PMR (polymyalgia rheumatica) ([facility]) long-term 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 High risk medication use Polyarthropathy Primary osteoarthritis, unspecified site Polymyalgia rheumatica ([facility]) 81 yo M who is here for [...] MD Family Medicine PGY-1 08/25/22 11:48 AM [facility] Evaluation + Plan note Future Appointments Appointment Date:09/18/2023 12:45:00 PM Scheduled Provider:Nguyễn VELA MD Location:[facility] Appointment Type:URO Office Visit [facility] Evaluation + Plan note Future Appointments Appointment Date:08/22/2023 01:40:00 PM Scheduled Provider:[facility]ade [facility]Y [facility]: [facility] 30 Appointment Date:09/18/2023 12:45:00 PM Scheduled Provider:Nguyễn VELA MD [facility] Type:[facility]O Office Visit [facility] [place] Evaluation + Plan note Future Appointments Appointment Date:09/01/2023 01:40:00 PM Scheduled Provider:Wade LILLY MD Location: [place] Appointment Type: Established 15 Appointment Date:09/18/2023 12:45:00 PM Scheduled Provider:Nguyễn VELA MD [facility] Type:URO Office Visit [facility] [place] Evaluation + Plan note Future Appointments Appointment Date:09/13/2023 03:00:00 PM Scheduled Provider:Wade LILLY MD [facility] App[facility] Type: Established 15 Appointment Date:09/18/2023 12:45:00 PM Scheduled Provider:Nguynễ VELA MD Location:[facility] [place] Appointment Type:URO Office Visit General [facility] [place] Evaluation + Plan note Future Appointments Appointment Date:11/27/2023 11:30:00 AM Scheduled Provider:Nguyễn VELA MD [facility] Type:URO Office Visit General [facility] [place] Evaluation note No assessment inform ation available [facility] Work Phone: History of Present illness [...] will be reviewed at his next visit. -[facility] 250 DO Work Phone: History of Present [...] will be reviewed at [facility] next visit. [facility] [employer] Work Phone: History of Present illness Narrative [...] and will attempt to implement our recommendations. [facility] [employer] Work Phone: Hospital course Narrative No data available for this section [facility] Hospital Discharge instructions No data available for this section [facility] [place] note No data available for this section [facility] Summary Purpose Family History No Family [...] Date/ Time Advance Directives No September 08 11:54am Chief Complaint TRAVIS COBURN is being [...] section and content) DATE CREATED AUTHOR 11/30/2021 [facility] DATE CREATED AUTHOR AUTHOR'S ORGANIZ ATION 12/31/2021 [facility] DATE CREATED AUTHOR AUTHOR'S ORGANIZ ATION 01/01/2022 [employer] DATE CREATED AUTHOR AUTHOR'S ORGANIZ ATION 10/29/2022 [facility] DATE CREATED AUTHOR AUTHOR'S ORGANIZ ATION 10/30/2022 [facility] DATE CREATED AUTHOR AUTHOR'S ORGANIZ ATION 04/12/2023 [facility] DATE CREATED AUTHOR AUTHOR'S ORGANIZ ATION 04/14/2023 [facility] DATE CREATED AUTHOR AUTHOR'S ORGANIZ ATION 07/21/2023 [facility] DATE CREATED AUTHOR AUTHOR'S ORGANIZ ATION 08/21/2023 [facility] DATE CREATED AUTHOR AUTHOR'S ORGANIZ ATION 08/25/2023 [facility] DATE CREATED AUTHOR AUTHOR'S ORGANIZ ATION 09/14/2023 [facility] Reason for Visit (unrecogniz ed section and content) Reason for Visit:Holter Lori tor:TRAVIS is here for the application of a 24 hour Holter monitor.Ordering Physician: Dr. Johnnie Deras, MICHELLEiagnosis: bradyNOHC equipment agreement signed. TRAVIS understands monitor is to be returned on: 10/31/2022Monitor number [id number] applied.Reason for Visit:Holter Monitor:TRAVIS is here for the application of a 24 hour Holter monitor.Ordering Physician: Dr. Johnnie Deras, MICHELLEiagnosis: bradyNOHC equipment agreement signed. TRAVIS understands monitor is to be returned on: 10/31/2022Monitor number [id number] applied.Holter monitor returned and downloaded.Holter monitor printed and placed on Dr. Naomi Hood MD desk to dictate in Dr. Johnnie Deras MD absenceReason for Visit:Holter Monitor:TRAVIS is here for the application of a 24 hour Holter monitor.Ordering Physician: MICHELLE Lucianoiagnosis: bradyNOHC equipment agreement signed. TRAVIS hernadezs monitor is to be returned on: 10/31/2022[facility] [id number] applied.Holter monitor returned and downloaded.Holter monitor printed [...] End: August 22, 2023 Wade Lilly MD [facility] Attending Provider Active Start: August 22, 2023 [...] BE BASED ON THE PRIMARY CLINICAL RECORDS. [employer] provides no warranty or guarantee of the accuracy or completeness of information in this document.
== END 2023-09-30 07:59 | disposition home or self-care (01) ==
LOC: CT 07:58
PROVIDERS: PCP Family Medicine; Visit Provider Family Medicine
DX: H65.90 Unspecified nonsuppurative otitis media, unspecified ear (principal)
CPT/HCPCS: 70486

== ENCOUNTER 2023-10-23 09:27 | Outpatient (RCR) | payer MEDICARE, OTHER, SELFPAY | END 2023-10-24 17:23 | disposition home or self-care (01) | LOC: PT 09:27 | PROVIDERS: PCP Family Medicine; Visit Provider Family Medicine | DX: R26.81 Unsteadiness on feet (principal); R42 Dizziness and giddiness; M54.2 Cervicalgia | CPT/HCPCS: 97110; 97140; 97161 ==

== ENCOUNTER 2023-12-05 09:18 | Outpatient (OUT) | payer MEDICARE, OTHER, SELFPAY ==
[2023-12-05 10:33] LABS: Chol HDL Ratio 2.9; Cholesterol 160 mg/dL (<=200); HDL Cholesterol 55 mg/dL (40-60); LDL Cholesterol Calculated 85.8 mg/dL; Triglycerides 96 mg/dL (<=150); VLDL CHOLESTEROL 19.2 mg/dL
== END 2023-12-05 09:19 | disposition home or self-care (01) ==
LOC: LAB 09:19
PROVIDERS: PCP Family Medicine; Visit Provider Internal Medicine Cardiovascular Disease
DX: E78.2 Mixed hyperlipidemia (principal)
CPT/HCPCS: 36415; 80061

== ENCOUNTER 2024-01-09 11:46 | Outpatient (OUT) | payer MEDICARE, OTHER, SELFPAY ==
--- OUTSIDE RECORDS SUMMARY | 2024-01-09 11:51 | XMS_ITS ---
Patient Summarization (C-CDA 2.1 CCD) Created on: January 09, 2024 TRAVIS COBURN : 1940 Sex: Male Author Organization Sample organization Care Team Providers Care Hydrogen Cell Tender Name Role Phone Mayra Navarrete Unavailable Unavailable [...] DR NUNEZ Admitting Unavailable HOY ., DR UNNEZ Attending Unavailable HOY ., DR NUNEZ Primary [...] Unavailable HOY ., DR NUNEZ Consulting Unavailable [place], DR CJ Hernandes Consulting Unavailable HOY ., DR NUNEZ Admitting Unavailable HOY ., DR NUNEZ Attending Unavailable [facility], DR RIVAS Primary Care Unavailable HOY ., DR NUNEZ Consulting Unavailable KWADWO CRUMP Admitting Unavailable KWADWO CRUMP Attending Unavailable LANDON ., DR NUNEZ Primary Care Unavailable KWADWO CRUMP Consulting Unavailable Mayra Navarrete Primary Care Physician MICHELLE BARRY Attending Unavailable MICHELLE BARRY Admitting Unavailable MAYRA NAVARRETE Primary Care Unavailable MAYRA NAVARRETE Primary Care Unavailable MD Mayra Navarrete Primary Care Provider [phone] Nill, MD Wade R Attending Provider [phone] Mayra Navarrete Primary Care Unavailable Nill, Wade Peter Attending Unavailable Nill, Wade R Admitting Unavailable NILL, Wade R Attending Unavailable NILL, Wade R Attending Unavailable NILL, Wade R Attending Unavailable VELA, Nguyễn R Attending Unavailable VELA, Nguyễn R Attending Unavailable NILVikas, Wade Peter Attending Unavailable Mayra Navarrete Referring Unavailable Mayra Navarrete MD Primary Care Provider JOHNNIE DERAS Attending Unavailable MAYRA NAVARRETE Primary Care Unavailable UPPER SIOUX, TOO Attending Unavailable LUIS DANIEL BRUNNER Attending Unavailable U[place]ER [place], LUANKAR Attending Unavailable LAMINE BASSUKHDEV M Referring Unavailable LUIS DANIEL BRUNNER M Attending Unavailable RADHA EARL Attending Unavailable YUE GARCIA Attending Unavailable MAYRA NAVARRETE Referring Unavailable MEGAN QUIÑONEZ Attending Unavailable MAYRA NAVARRETE Referring Unavailable Allergies Allergy Classification Reported Allergen(s) Allergy Type Date of Onset Reaction(s) Facility (11 sources) bee pollen [facility] Work Phone: (20 sources) Penicillins; 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: [Penicillins] Allergy to drug (finding) 9 Anaphylaxis (disorder) [facility] (11 sources) Animal dander - Cats [facility]: (1 source) Penicillins Drug allergy (disorder) [facility] (7 sources) Latex; 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: [Latex] Drug allergy 2 Unknown (qualifier value) [facility] (5 sources) Sulfonamides (Antibiotic); 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: [sulfa drugs] Propensity to adverse reactions to drug [facility] [place] (2 sources) penciclovir; 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: [penciclovir] Drug Allergy 1 anaphylaxis [facility] (3 sources) Sulfonamides (Antibiotic); 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: [Sulfa (Sulfonamide Antibiotics)] Allergy to substance 9 Anaphylaxis [facility] (1 source) Penicillins Drug allergy (disorder) 9 [facility] (3 sources) Bee pollen; 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: [BEE POLLEN] Drug Allergy 4 Unknown [facility] Work Phone: (1 source) Penicillins Drug Allergy 2 Anaphylaxis [facility] Work Phone: (3 sources) Cat Dander; 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: [CAT DANDER] Allergy to substance 4 Unknown [facility] Work Phone: Encounters Encounter Date Encounter Type Care Provider Facility Start: 12-27-2023 End: 12-27-2023 ambulatory MEGAN Khan OLAMIDE Not Available Start: 12-25-2023 End: 12-25-2023 ambulatory YUE GARCIA Not Available Start: 11-27-2023 End: 11-27-2023 ambulatory JOHNNIE DERAS [facility] Ambulatory Start: 11-27-2023 End: 11-27-2023 Office outpatient visit 15 minutes Johnnie Deras MD Work Phone: [facility] Comment on above: Coronary artery dise ase involving [place] coronary artery of [place] heart without angina pectoris (Primary Dx); Benign essential hypertension; Mixed hyperlipidemia; Former cigarette smoker Start: 10-11-2023 End: 10-11-2023 ambulatory TOO [facility] Start: 10-02-2023 ambulatory TOO [facility] Start: 09-13-2023 End: 09-14-2023 ambulatory Wade LILLY Facility: [facility] Start: 09-13-2023 End: 09-13-2023 Patient encounter procedure Wade LILLY General Surgery Nill/Said [facility] Start: 09-01-2023 End: 09-02-2023 ambulatory Wade LILLY Facility: [facility] Start: 09-01-2023 End: 09-01-2023 Patient encounter procedure Wade R NILL General Surgery Nill/Said [facility] Start: 08-22-2023 End: 08-23-2023 ambulatory Mayra Navarrete Facility:[facility] Start: 08-22-2023 End: 08-22-2023 Patient encounter procedure Wade LILLY General Surgery Nill/Said [facility] Start: 08-22-2023 End: 08-22-2023 ambulatory MD Mayra Navarrete Work Phone: [facility] Work Phone: Start: 08-22-2023 End: 08-22-2023 Departed Referred MD Mayra Navarrete Work Phone: [facility] [place] [facility] Start: 08-17-2023 End: 08-17-2023 ambulatory LUIS DANIEL [facility] Start: 08-16-2023 End: 08-16-2023 ambulatory TOO [facility] Start: 07-20-2023 End: 07-20-2023 ambulatory RADHA Linden EARL Not Available Start: 07-18-2023 End: 07-19-2023 ambulatory Wade LILLY Facility: [facility] Start: 07-18-2023 End: 07-18-2023 Patient encounter procedure Wade R MAXX General Surgery Nill/Said [place] Start: 04-05-2023 ambulatory MAYRA NAVARRETE [facility] Start: 04-05-2023 End: 04-05-2023 ambulatory [facility] Start: 03-20-2023 End: 03-21-2023 ambulatory Nguyễn VELA Facility: [facility] Start: 03-20-2023 End: 03-20-2023 Patient encounter procedure Nguyễn VELA [facility] Start: 02-23-2023 End: 02-23-2023 ambulatory [facility] Start: [id number] [place] [address], Provider : ALIYA YOUNG SUCTION PLATE CARRIER CLEANER 1,[id number], Status: Pen, Time: 10:00 AM Mayra Molina Hoy Work Phone: [facility] 250 DO Work Phone: Start: 10-28-2022 Patient encounter procedure Mayra Molina Hoy Work Phone: [facility] 250 DO Work Phone: Start: 10-28-[address] Johnnie [address]ana [facility] Facility: Start: 10-27-2022 Telephone encounter Mayra Molina Hoy Work Phone: [facility] 250 DO Work Phone: Start: 10-25-2022 End: 10-26-2022 ambulatory KWADWO CRUMP Facility:[facility] Start: 06-20-2022 End: 06-21-[address] MAYRA NAVARRETE . Facility:[facility] Start: 03-11-2022 End: 03-12-[address] MAYRA NAVARRETE . Facility:[facility] Start: 01-25-2022 Rx Renewal Mayra Molina Hoy Work Phone: [facility] 600 DO Work Phone: Start: 12-30-2021 Chart Update Mayra Molina Hoy Work Phone: [facility] 250 DO Work Phone: Start: 12-28-2021 Office outpatient vi sit 25 minutes Mayra Molina Hoy Work Phone: [facility] 250 DO Work Phone: Start: 12-28-2021 Patient encounter procedure Mayra Molina Hoy Work Phone: [facility] 250 DO Work Phone: Start: 12-28-[address] Mayra Navarrete Facility: Start: 12-08-2021 Office outpatient vi sit 25 minutes Mayra M Hoy Work Phone: [facility] 250 DO Work Phone: Start: 12-08-[address] Mayra Navarrete Facility: Start: 11-25-2021 End: 11-26-[address] MAYRA NAVARRETE . Facility:[facility] Start: 11-24-2021 End: 11-25-[address] MAYRA NAVARRETE . Facility: Immunizations Immunization Date Immunization Notes Care Provider Fa [facility] 07-26-2022 Fluad Quadrivalent 0 .5 ML Intramuscular Prefilled Syringe Mayra Navarrete Work Phone: [facility] 250 DO Work Phone: 07-26-2022 influenza virus vaccine, unspecified formulation Nguyễn VELA [facility] 11-17-2021 Comirnaty 30 MCG/0.3 ML Intramuscular Suspension Mayra Navarrete Work Phone: [facility] 250 DO Work Phone: 11-17-2021 SARS-CoV-2 mRNA ([id number] se) vaccine Nguyễn VELA [facility] 05-20-2021 Pfizer-BioNTech COVID-19 Vacc 30 MCG/0.3ML Intramuscular Suspension Mayra Navarrete Work Phone: [facility] Comment on above: Result Comment: 2022: [id number] 05-12-2021 influenza, seasonal, injectable Johnnie Deras MD Work Phone: [facility] Work Phone: 11-17-2020 SARS-CoV-2 (COVID-19 ) mRNA BNT-162b2 vax Nguyễn VELA [facility] [place] 10-29-2020 Pfizer-BioNTech COVID-19 Vacc 30 MCG/0.3ML Intramuscular Suspension Mayra Navarrete Work Phone: [facility] Comment on above: Result Comment: 2022: [id number] 10-28-2020 Moderna COVID-19 vaccine, bivalent, blue cap/cunningham label *Check age/dose* Johnnie Deras MD Work Phone: [facility] Work Phone: 10-27-2020 SARS-CoV-2 (COVID-19 ) mRNA BNT-162b2 vax Nguyễn VELA [facility] [place] 10-06-2020 Pfizer-BioNTech COVID-19 Vacc 30 MCG/0.3ML Intramuscular Suspension Mayra Navarrete Work Phone: [facility] Comment on above: Result Comment: 2022: [id number] 09-29-2020 Moderna COVID-19 vaccine, bivalent, blue cap/cunningham label *Check age/dose* Johnnie Deras MD Work Phone: [facility] Work Phone: 04-23-2020 influenza virus vaccine, unspecified formulation Nguyễn VELA [facility] 04-23-2020 influenza, high dose seasonal, preservative-free Mayra Navarrete Work Phone: [facility] [employer] 250 DO Work Phone: 04-09-2018 influenza virus vaccine, unspecified formulation [facility] DO Work Phone: 07-10-2017 pneumococcal polysaccharide vaccine, 23 valent [facility]rete [facility] Work Phone: 04-09-2016 influenza virus vaccine, unspecified formulation [facility]ra [facility]rete [facility] Work Phone: 04-09-2016 pneumococcal conjuga te vaccine, 13 valent Mayra Molina Hoy [facility] Work Phone: 04-22-2015 influenza virus vaccine, unspecified formulation Nguyễn VELA [facility] 04-22-2015 influenza, injectabl e, quadrivalent, contains preservative Mayra M Hoy [facility] Work Phone: 04-09-2015 influenza virus vaccine, unspecified formulation Mayra M Hoy [facility] Work Phone: 05-22-2014 influenza virus vaccine, unspecified formulation Nguyễn 1,2,3 Listo [facility] 05-22-2014 influenza, injectabl e, quadrivalent, contains preservative Mayra M Aluwavey [facility] Work Phone: 07-10-2012 influenza virus vaccine, unspecified formulation Mayra M Hoy [facility]: [facility] Work Phone: 07-10-2011 pneumococcal polysaccharide vaccine, 23 valent Mayra M Aluwavey [facility]: [facility] Work Phone: influenza virus vaccine, unspecified formulation Mayra M Aluwavey [facility] Phone: [facility] DO Work Phone: Comment on above: 2011 NEGATED: Highlighted row has not occurred!07-18-2023 influenza virus vaccine, unspecified formulation Wade LILLY [facility] [place] Medications Current Medications Medication Drug Class(es) Dates [...] Active amitriptyline hydrochloride 50 mg oral tablet (18 sources) Tricyclic Antidepressant Start: 09-13-2017 take 1 tablet by mouth once daily at bedtime amitriptyline 50 mg Tab 50 mg = 1 tab(s), Oral, Once a day (at bedtime), Refills(s) 0 Start Date: 07/14/23 Status: Ordered Start: 03-26-2014 take 2 tablets by mo [facility] once daily at bedtime Elavil 25 mg Tab 50 mg = 2 tab(s), Oral, Once a day (at bedtime) Start Date: 03/26/14 Status: Ordered take 1 tablet by rasta th once daily at bedtime amitriptyline (Elavil) 25 mg tablet Take 1 tablet (25 mg) by mouth once daily at bedtime. Active aspirin 81 mg oral tablet (18 sources) Platelet Aggregation Inhibitor, Nonsteroidal Anti-inflammatory Drug Start: 06-29-2018 aspirin 81 mg, Or al, Daily, taking 2 times per week, Refills(s) 0, Blood Thinner Start Date: 06/29/18 Status: Ordered Start: 06-29-2018 End: 05-31-2019 take 81 mg by mouth two times weekly Aspirin Discontinued 81 MG PO Twice a Week May 30, 2019 12:00am May 31, 2019 11:36am aspirin 81 mg ch ewable tablet Chew 1 tablet (81 mg) 2 times a week. Active take 1 tablet by rasta th two [...] mg / cholecalciferol 200 unt oral capsule (2 sources) Vitamin D Start: 09-13-2017 take 1 tablet by mouth once daily Calcium Carbonate-Vitamin D3 (Calcium 600 + D(3)) 600 mg calcium- 200 unit Capsule Active 1 TAB PO Daily September 13, 2017 12:00am Start: 06-13-2016 take 1 capsule by [facility] once daily calcium carbonate-vitamin D3 600 mg-10 mcg (400 unit) capsule Take 1 capsule by mouth once daily. 06/13/2016 Active carvedilol 6.25 mg oral tablet (1 source) alpha-Adrenergic Sapphire, beta-Adrenergic Sapphire take 1 tablet by mouth twice daily carvedilol (Coreg) 6.25 mg tablet Take 1 tablet (6.25 mg) by mouth 2 times daily (morning and late afternoon). Active Folate 1 mg Tab (5 sources) Start: 08-23-19 20 Folate 1 mg Tab Refills(s) 0 Start Date: 08/23/19 Status: Ordered folic acid 1 mg oral tablet (14 sources) Start: 08-25-19 take 1 tablet by mouth once daily folic acid (Folvite) 1 mg tablet Take 1 tablet (1 mg) by mouth once daily. 08/25/2022 Active Start: 05-30-2019 End: 05-30-2019 Folic Acid Active 1 MG PO Da ashley May 30, 2019 12:00am Does not take on Monday furosemide 20 mg oral tablet (18 sources) Loop Diuretic Start: 09-13-2017 End: 11-27-2023 take 20 mg by mouth once daily [...] mg / irbesartan 300 mg oral tablet (16 sources) Thiazide Diuretic, Angiotensin 2 Receptor Sapphire Start: 01-25-2022 End: 11-27-2023 take 1 tablet by mouth once daily hydrochlorothiazide-irbesartan 12.5 mg-300 mg Tab 1 tab(s), Oral, Daily, Refill(s) 0 Start Date: 07/14/23 Status: Ordered take 1 tablet by rasta th once daily Irbesartan-hydroCHLOROthiazide 300-12.5 MG Oral Tablet TAKE 1 TABLET ONCE DAILY. Quantity: 0 Refills: 0 Ordered: 08-Dec-2021 DO Active ibuprofen 600 mg oral tablet (1 source) Nonsteroidal Anti-inflammatory Drug Start: 03-20-2023 take 600 mg by mouth every six hours ibuprofen 600 mg, Oral, q6hr Start Date: 03/20/23 Status: Ordered irbesartan 300 mg oral tablet (4 sources) Angiotensin 2 Receptor Sapphire Start: 05-30-2019 [...] Status: Ordered take 2 tablets by mo [facility] once daily metFORMIN HCl - 500 MG Oral Tablet TAKE 2 TABLETS DAILY. Quantity: 0 Refills: 0 Ordered: 08-Dec-2021 DO Active 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 5 mg oral tablet (18 sources) Folate Analog Metabolic Inhibitor Start: 07-14-2023 take 4 tablets by mouth every week 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 5 mg oral tablet 20 mg = 4 tab(s), Oral, qWeek, Refills(s) 0 Start Date: 07/14/23 Status: Ordered Start: 11-21-2022 take 4 tablets by mo uth every week 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 (Trexall) 2.5 mg tablet Take 4 tablets (10 mg total) by mouth 1 (one) time per week. 11/21/2022 Active Start: 08-23-2019 Trexall 2.5 mg Tab Refills(s) 0 Start Date: 08/23/19 Status: Ordered Start: 05-30-2019 take 10 mg by mouth every week Methotrexate Sodium Active 10 MG PO every week May 30, 2019 12:00am Takes on Monday take 4 tablets by mo uth every week Methotrexate 2.5 MG Oral Tablet TAKE 4 TABLETS WEEKLY. Quantity: 0 Refills: 0 Ordered: 28-Dec-2021 DO Active take 1 tablet by rasta th every week Methotrexate Sodium 2.5 MG Oral Tablet TAKE 1 TABLET WEEKLY. Quantity: 0 Refills: 0 Ordered: 08-Dec-2021 DO Active 24 hr oxybutynin chloride 5 mg extended release oral tablet (5 sources) Cholinergic Muscarinic Antagonist Start: 03-20-2023 take 1 tablet by mouth at bedtime oxybutynin 5 mg ER Tab 5 mg = 1 tab(s), Oral, Bedtime, # 30 tab(s), Refills(s) 8, Pharmacy: [facility]/pharmacy #[id number], 175, cm, 03/20/23 14:33:00 EDT, Height/Length Dosing, 112, kg, 03/20/23 14:33:00 EDT, Weight Dosing Start Date: 03/20/23 Status: Ordered pantoprazole 40 mg extended release oral tablet (18 sources) Proton Pump Inhibitor Start: 06-29-2018 take 40 mg by mouth once daily Protonix 40 mg, Oral, Daily, Refills(s) 0, Control of stomach acid Start Date: 06/29/18 Status: Ordered Start: 09-13-2017 Pantoprazole ( Protonix) 40 mg Tablet,Delayed Release (Dr/Ec) Active 40 MG PO Every 48 hours September 13, 2017 12:00am take 1 tablet by rasta th once daily before mealtime pantoprazole (ProtoNix) 40 mg EC tablet Take 1 tablet (40 mg) by mouth once daily in the morning. Take before meals. Active Miralax (4 sources) Osmotic Laxative Start: 07-14-2023 take 17 g by mouth once daily MiraLax 17 gm, Oral, Daily, Refill(s) 0 Start Date: 07/14/23 Status: Ordered predniSONE 2.5 mg oral tablet (8 sources) Start: 07-18-2023 take 2 tablets by mouth once daily predniSONE 2.5 mg oral tablet 5 mg = 2 tab(s), Oral, Daily, Refills(s) 0 Start Date: 07/18/23 Status: Ordered Start: 03-20-2023 take 1 tablet by rasta th once daily predniSONE 2.5 mg oral tablet 2.5 mg = 1 tab(s), Oral, Daily Start Date: 03/20/23 Status: Ordered Start: 05-30-2019 take 1 tablet by rasta th twice daily, then take 2 tablets by mouth in the morning, then take 1 tablet by mouth at bedtime predniSONE (Deltasone) 2.5 mg tablet Take 1 tablet (2.5 mg) by mouth 2 times a day. 2 tabs in the AM & 1 at HS. 08/17/2023 Active Start: 09-13-2017 End: 05-30-2019 take 5 mg by mouth once daily Prednisone Discontinued 5 MG PO Daily September 13, 2017 12:00am May 30, 2019 3:00pm rosuvastatin calcium 5 mg oral tablet (18 sources) HMG-CoA Reductase Inhibitor Start: 12-01-2020 take 1 tablet by mouth at bedtime rosuvastatin 5 mg Tab TAKE 1 TABLET BY MOUTH AT BEDTIME Start Date: 12/01/20 Status: Ordered Start: 05-30-2019 take 2.5 mg by mouth once daily in the morning Rosuvastatin Active 2.5 MG PO Every morning May 30, 2019 12:00am take 1 tablet by rasta th two times weekly rosuvastatin (Crestor) 5 mg tablet Take 1 tablet (5 mg) by mouth 2 times a week. Active tiZANidine 4 mg oral tablet (1 source) Central alpha-2 Adrenergic Agonist Start: 03-20-2023 take 1 tablet by mouth every eight hours tiZANidine 4 mg Tab 4 mg = 1 tab(s), Oral, q8hr Start Date: 03/20/23 Status: Ordered vitamin b12 1 mg oral tablet (3 sources) Vitamin B12 Start: 05-30-2019 take 3 [...] 0 Refills: 0 Ordered: 08-Dec-2021 DO Active Payers Date Payer Category Payer Self-pay [id number] 2018 Private Health Insurance [employer] HU[employer]NA [employer] HUMANA [id number] 2018-Present [address] [address] [place] [address] [id number] 2006 Medicare MEDICARE MEDICAR E PART A AND B [id number] 2006-Present [address] [place] [address] [id number] 1959 Medicare [id number] 1959 Private Health Insurance [id number] 1940 Unknown [id number] 2.840.1.681268.3.579. 2.356 1940 Unknown [id number] 2.840.1.316847.3.579. 2.356 1940 Unknown [id number] .840.1.515348.3.579. 2.356 1940 Unknown [id number] .840.1.047553.3.579. 2.593 1940 Unknown [id number] 2.16840.1.615829.3.579. 2.593 1940 Unknown [id number] .16840.1.171268.3.579. 2.593 1940 Unknown [id number] 2.16840.1.550488.3.579. 2.593 1941 Unknown [id number] 2.840.1.504008.3.579. 2.593 1941 Unknown [id number] 2.16.840.1.057704.3.579. 2.754 1941 Unknown [id number] 2.16.840.1.144540.3.579. 2.754 1940 Unknown [id number] 2.16.840.1.250431.3.579. 2.727 1940 Unknown [id number] 2.16.840.1.155828.3.579. 2.727 1941 Unknown [id number] 2.16.840.1.470979.3.579. 2.727 1941 Unknown [id number] 2.16.840.1.180732.3.579. 2.727 1941 Unknown [id number] 2.16.840.1.918508.3.579. 2.727 1941 Unknown [id number] 2.16.840.1.968159.3.579. 2.727 1941 Unknown [id number] 2.16.840.1.378386.3.579. 2.1244 1941 Unknown [id number] 2.16.840.1.264041.3.579. 2.1259 1941 Unknown [id number] 2.16.840.1.248369.3.579. 2.1259 1940 Unknown [id number] 2.16.840.1.508127.3.579. 2.1259 Medicare [id number] Unknown Unknown [id number] Unknown [id number] 2.16.840.1.643417.3.579. 2.531 Plan of Treatment Date Care Activity Detail Author Start: 11-29-2024 End: 11-29-2024 Patient encounter procedure 11/29/2024 10:20 AM EDT Office Visit [facility] [address] [facility] [address] [place] [address] Abdoul Timmons MD [address] [facility] [place] [address] [facility] Start: 03-10-2024 Influenza vaccination Influenz a Vaccine (Season Ended) [facility] Start: 01-19-2024 ambulatory Ambulatory Facility:[facility] Start: 11-27-2023 End: 11-26-2024 Lipid 1996 panel - Serum or Plasma Lipid Panel Lab Routine Mixed hyperlipidemia Expected: 11/27/2023 (Approximate), Expires: 11/26/2024 [facility] Service Area Work Phone: Comment on above: Expected: 11/27/2023 (Approximate), Expires: 11/26/2024 Start: 03-10-2023 COVID-19 Vaccine ( season) COVID-19 Vaccine ( season) [facility] Start: 12-06-2022 FUV, Provider: Johnnie Deras, Status: Pen, Time: 10:00 AM FUV, Provider: Johnnie Deras, Status: Pen, Time: 10:00 AM [facility] 250 DO Work Phone: Start: 11-24-2022 FUV, Provider: Johnnie Deras, Status: Pen, Time: 2:00 PM FUV, Provider: Johnnie Deras, Status: Pen, Time: 2:00 PM [facility] Work Phone: Start: 12-28-2021 FUV, Provider: Johnnie Deras, Status: Pen, Time: 9:45 AM FUV, Provider: Johnnie Deras, Status: Pen, Time: 9:45 AM [facility] DO Work Phone: Start: 12-22-2021 REST ONLY, Provider: SABINE [facility] NUCLEAR ,[id number], Status: Pen, Time: 8:00 AM REST ONLY, Provider: SABINE Jaimes,[id number], Status: Pen, Time: 8:00 AM [facility] [employer] 250 DO Work Phone: Start: 12-21-2021 STRESSNUC2, Provider : SABINE Jaimes,[id number], Status: Pen, Time: 8:00 AM STRESSNUC2, Provider: SABINE Jaimes,[id number], Status: Pen, Time: 8:00 AM [facility] Work Phone: Start: 2001 Hepatitis B Vaccines (1 of 3 - Risk 3-dose series) Hepatitis B Vaccines (1 of 3 - Risk 3-dose series) [facility] Start: 2001 RSV patient s and/or patients aged 60+ years (1 - 1-dose 60+ series) RSV patients and/or patients aged 60+ years (1 - 1-dose 60+ series) [facility] Start: 11-03-1991 Zoster Vaccines (1 o f 2) Zoster Vaccines (1 of 2) [facility] Start: 11-03-1963 DTaP/Tdap/Td Vaccine s (1 - Tdap) DTaP/Tdap/Td Vaccines (1 - Tdap) [facility] Start: 1960 Hepatitis A Vaccines (1 of 2 - Risk 2-dose series) Hepatitis A Vaccines (1 of 2 - Risk 2-dose series) [facility] Start: 1941 Lipid panel Lipid Panel [facility] Start: 1941 Medicare Annual Wellness Visit Medicare Annual Wellness Visit (AWV) [facility] Start: 1941 Screening for osteoporosis Bone Density Scan [facility] Problems Active Problems Problem Classification Problem Date Documented Da te Episodic/Chronic Abdominal hernia (4 sources) Hiatal hernia 07-14-2023 Episodic Abdominal pain (5 sources) Epigastric pain 12-01-2020 Episodic Acute and unspecified renal failure (2 sources) Acute kidney failure, unspecified; 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: [Acute kidney failure, unspecified] Onset: Episodic Anxiety disorders (4 sources) Anxiety 07-14-2023 Chronic Calculus of urinary tract (11 sources) History of calculus of kidney; 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: [Personal history of urinary calculi] Onset: 3 Episodic Cardiac dysrhythmias (4 sources) 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 Chronic kidney disease (2 sources) Chronic kidney disease; 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: [Chronic kidney disease, stage 3a] Onset: 4 Coronary atherosclerosis and other heart disease (20 sources) Angina pectoris; 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: [Other and unspecified angina pectoris] Onset: 4 11-27-2023 Chronic Deficiency and other anemia (1 source) Anemia, unspecified; 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: [ANEMIA UNSPECIFIED] Onset: 3 Episodic Diabetes mellitus without complication (9 sources) Type 2 diabetes mellitus without complications; 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: [Diabetes mellitus] Onset: 2 Chronic Diabetes mellitus without complication (1 source) Other abnormal glucose; 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: [OTHER ABNORMAL GLUCOSE] Onset: 3 Episodic Disorders of lipid metabolism (20 sources) Hyperlipidemia; 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: [Other and unspecified hyperlipidemia] Onset: 3 07-14-2023 Chronic Esophageal disorders (5 sources) Gastroesophageal reflux disease 08-21-2019 Chronic Essential hypertension (20 sources) Benign essential hypertension; 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: [Benign essential hypertension] Onset: 4 07-14-2023 Chronic Genitourinary symptoms and ill-defined conditions (17 sources) Urgent desire to urinate; 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: [Urgency of urination] Onset: 3 Episodic Headache; including migraine (4 sources) Migraine 07-14-2023 Chronic Hyperplasia of prostate (9 sources) Benign prostatic hyperplasia without lower urinary tract symptoms; 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: [Benign prostatic hypertrophy with outflow obstruction] Onset: 2 Chronic Inflammatory conditions of male genital organs (5 sources) Prostatitis 08-21-2019 Episodic Nausea and vomiting (5 sources) Nausea and vomiting 12-01-2020 Episodic Neoplasms of unspecified nature or uncertain behavior (6 sources) Neoplasm of uncertain behavior of skin; 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: [Neoplasm of uncertain behavior of skin] Onset: 4 Episodic Nutritional deficiencies (7 sources) Vitamin D deficiency, unspecified; 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: [Vitamin D deficiency] Onset: 3 07-14-2023 Chronic Nutritional deficiencies (4 sources) Cobalamin deficiency 07-14-2023 Episodic Other connective tissue disease (18 sources) Polymyalgia rheumatica; 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: [Polymyalgia rheumatica] Onset: 2 08-23-2019 Chronic Other connective tissue disease (1 [...] Chronic Other lower respiratory disease (11 sources) Dyspnea; [...] of skin, unspecified] Onset: 4 Episodic Other nutritional; endocrine; and metabolic disorders (16 [...] fracture] Onset: 3 Episodic Residual codes; unclassified (16 sources) Sleep apnea; 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: [Unspecified sleep apnea] Onset: 4 07-14-2023 Chronic Residual codes; unclassified (1 source) Encounter for procedure for purposes other than remedying health state, unspecified; 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: [Encounter for procedure for purposes other than remedying health state, unspecified] Onset: 3 Episodic Screening and history of mental health and substance abuse codes (20 sources) Ex-smoker; 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: [Personal history of tobacco use] Onset: 4 08-23-2019 Episodic Comment on above: Quit: 1991; Substance-related disorders (2 sources) Other psychoactive substance use, unspecified, uncomplicated; 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: [Other psychoactive substance use, unspecified, uncomplicated] Onset: 4 Episodic Unclassified (1 source) Drug therapy finding 08-23-2019 Unclassified (1 source) retirement (current) use of antimetabolite agent; 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: [retirement (current) use of antimetabolite agent] Onset: 2 Past or Other Problems Problem Classification Problem Date Documented Da te Episodic/Chronic Cardiac dysrhythmias (9 sources) Bradycardia; 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: [Other specified cardiac dysrhythmias] Onset: 11-25-2021 Episodic Conditions associated with dizziness or vertigo (12 sources) Dizziness; 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: [Dizziness and giddiness] Onset: 08-24-2023 08-24-2023 Episodic Malaise and fatigue (16 sources) Fatigue; 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: [Other malaise and fatigue] Onset: 10-25-2022 Episodic Other diseases of kidney and ureters (2 sources) Disorder of kidney and ureter, unspecified; 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: [Disorder of kidney and ureter, unspecified] Onset: 08-16-2023 Episodic Other gastrointestinal disorders (1 source) Diarrhea, unspecified; 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: [DIARRHEA UNSPECIFIED] Onset: 03-18-2022 Episodic Other lower respiratory disease (13 sources) Dyspnea on exertion; 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: [Shortness of breath] Onset: 08-24-2023 08-24-2023 Episodic Unclassified (1 source) Onset: 11-27-2023 11-27-2023 Unclassified (1 source) [employer]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 Comment on above: Performed By: #### GIPANEL #### [facility] [address] [place] [address] Dr. Layla Barrera Start: 04-09-2014 right knee arthroscopy Nguyễn VELA Start: 02-25-2003 Cystoscopic removal of ureteric stent Nguyễn VELA Arthroscopic knee operation Nguyễnmaranda VELA Comment on above: left Arthroscopy of knee Mayra M Landon Work Phone: Comment on above: (Therapeutic) Bilateral; Cardiac catheterization Ruben las M Landon Work Phone: Colonoscopy Nguyễn VELA Comment on above: many Cystoscopy Nguyễn VELA Elbow joint operations Rubenl as M Landon Work Phone: Comment on above: Left; Esophagogastroduodenoscopy Jamaal VELA Excision of basal cell carcinoma Mayra Jesse Navarrete Work Phone: Excision of mass of breast Jesse LILLY Extracorporeal shock wave lithotripsy of calculus of kidney Nguyễn VELA heart catheterization Krish VELA Hemorrhoidectomy Nguyễn GOLDEN History of repair of musculotendinous cuff of shoulder Nguyễn VELA Comment on above: left Operation on nose Mayra Navarrete Work Phone: Prostate Surgery Nguyễn GOLDEN Renal lithotripsy Mayra Navarrete Work Phone: Repair of elbow Nguyễnmaranda HERRMANN RS Comment on above: left Repair of musculoten dinous cuff of shoulder Mayra Navarrete Work Phone: Comment on above: Left; Shoulder Surgery Nguyễn JOSEPH ERS Total colonoscopy Mayra Navarrete Work Phone: Comment on above: [id number]; Results Test Name Value Interpretation Reference Range Facil ity 36on 11-28-2023 36 Pt called to make sure that you will fill his Methotrexate. Normal [facility] 36 RHC patient [facility] 36 Last visit: 08/17/23 Next visit: 02/15/24 CBC/CMP: 10/02/23 [facility] Refillon 11-28-2023 Refill [id number] Travis Coburn 1940 M Date Provider Department Center 11/28/2023 Diane-LUIS DANIEL BRUNNER UTCF RHEUM UTCF No family history on file Reason for Visit and Comments: Med Refill [[id number]] [facility] 36on 10-16-2023 36 Last visit: 08/17/23 Next visit: 02/15/24 CBC/CMP: 10/02/23 [facility] Refillon 10-14-2023 Refill [id number] Travis Coburn 1940 M Date Provider Department Center 10/14/2023 Diane-LUIS DANIEL BRUNNER RHC RHEUM Eloise Heal No family history on file Reason for Visit and Comments: Med Refill [[id number]] Normal [facility] Follow-Upon 10-11-2023 Follow-Up [id number] Travis Coburn 1940 M Date Provider Department Center 10/11/2023 [id number] TH[facility]ON [facility] NEPHRO Comprehensiv No family history on file Level of Service:[id number] ID OFFICE/OUTPATIENT ESTABLISHED LOW MDM 20 MIN (GC) Reason for Visit and Comments: Follow-up [[id number]] Chronic Kidney Disease [176] Normal [facility] CBCon 10-02-2023 Erythrocyte distribution width (RBC) [Ratio] 14.0 % Normal 11.5-15.0 [facility] Comment on above: Performed By: #### L [id number] #### [facility] ([facility]) [address] [place] [address] ERYTHROCYTE MEAN CORPUSCULAR HEMOGLOBIN CONCENTRATION (G/DL) BY AUTOMATED 33.3 g/dL Normal 32.0-35.0 [facility] Comment on above: Performed By: #### L [id number] #### [facility] ([facility]) [address] [place] [address] Hematocrit (Bld) [Volume fraction] 44.4 % Normal 39.0-55.0 [facility] Comment on above: Performed By: #### L [id number] #### [facility] ([facility]) [address] [place] [address] Hemoglobin (Bld) [Mass/Vol] 14.8 g/dL Normal 13.0-17.0 [facility] Comment on above: Performed By: #### L [id number] #### [facility] ([facility]) [address] [place] [address] MCH (RBC) [Entitic mass] 31.9 pg Normal 27.0-33.0 [facility] Comment on above: Performed By: #### L [id number] #### [facility] ([facility]) [address] [place] [address] MCV (RBC) [Entitic vol] 95.7 fL Normal 82.0-98.0 [facility] Comment on above: Performed By: #### L [id number] #### [facility] ([facility]) [address] [place] [address] PLATELETS (10*3/UL) IN BLOOD AUTOMATED COUNT 189 10*3/uL Normal 150-400 [facility] Comment on above: Performed By: #### L [id number] #### [facility] ([facility]) [address] [place] [address] RBC (Bld) [#/Vol] 4.64 10*6/uL Normal 4.20-5.70 [facility] Comment on above: Performed By: #### L [id number] #### [facility] ([facility]) [address] [place] [address] WBC (Bld) [#/Vol] 8.52 10*3/uL Normal 4.00-10.60 [facility] Comment on above: Performed By: #### L [id number] #### [facility] ([facility]) [address] [place] [address] COMPREHENSIVE METABOLIC PANE [place] 10-02-2023 Albumin [Mass/Vol] 4.3 g/dL Normal 3.5-5.7 [facility] Comment on above: Performed By: #### L [id number] ####[facility] ([facility])[address] [place] [address] ALP [Catalytic activity/Vol] 102 U/L Normal 34-104 [facility] Comment on above: Performed By: #### L [id number] ####[facility] ([facility])[address] [place] [address] ALT [Catalytic activity/Vol] 16 U/L Normal 7-52 [facility] Comment on above: Performed By: #### L [id number] ####[facility] ([facility])[address] [place] [address] Anion gap [Moles/Vol] 11 mmol/L Normal 7-20 [facility] Comment on above: Performed By: #### L [id number] ####[facility] ([facility])[address] [place] [address] AST [Catalytic activity/Vol] 18 U/L Normal 13-39 [facility] Comment on above: Performed By: #### L [id number] ####[facility] ([facility])[address] [place] [address] Bilirubin [Mass/Vol] 0.6 mg/dL Normal 0.3-1.0 [facility] Comment on above: Performed By: #### L [id number] ####[facility] ([facility])[address] [place] [address] Calcium [Mass/Vol] 9.5 mg/dL Normal 8.6-10.3 [facility] Comment on above: Performed By: #### L [id number] ####[facility] ([facility])[address] [place] [address] Chloride [Moles/Vol] 102 mmol/L Normal 98-107 [facility] Comment on above: Performed By: #### L [id number] ####[facility] ([facility])[address] [place] [address] CO2 [Moles/Vol] 28 mmol/L Normal 21-31 [facility] Comment on above: Performed By: #### L [id number] ####[facility] ([facility])[address] [place] [address] Creatinine [Mass/Vol] 1.13 mg/dL Normal 0.70-1.30 [facility] Comment on above: Performed By: #### L [id number] ####[facility] ([facility])[address] [place] [address] GLOMERULAR FILTRATION RATE ML/MIN/1.73 SQ M.PREDICTED 65.3 mL/min/1.73m*2 Normal >60.0 [facility] Comment on above: Result Comment: [facility]???s estimated glomerular filtration rate (eGFR) will no [...] of individuals. Performed By: #### L [id number] ####[facility] ([facility])[address] [place] [address] Glucose [Mass/Vol] 140 mg/dL High 70-100 [facility] Comment on above: Performed By: #### L [id number] ####[facility] ([facility])[address] [place] [address] Potassium [Moles/Vol] 3.9 mmol/L Normal 3.5-5.1 [facility] Comment on above: Performed By: #### L [id number] ####[facility] ([facility])[address] [place] [address] Protein [Mass/Vol] 7.2 g/dL Normal 6.0-8.3 [facility] Comment on above: Performed By: #### L [id number] ####[facility] ([facility])[address] [place] [address] Sodium [Moles/Vol] 137 mmol/L Normal 136-145 [facility] Comment on above: Performed By: #### L [id number] ####[facility] ([facility])[address] [place] [address] Urea nitrogen [Mass/Vol] 15 mg/dL Normal 7-25 [facility] Comment on above: Performed By: #### L [id number] ####[facility] ([facility])[address] [place] [address] UREA NITROGEN/CREATININ E (MASS RATIO) IN SER/PLAS 13.3 Normal [facility] Comment on above: Performed By: #### L [id number] ####[facility] ([facility])[address] [place] [address] CREATININE, URINE, RANDOMon 10-02-2023 Creatinine (U) [Mass/Vol] 58.0 mg/dL Normal 26-299 [facility] Comment on above: Performed By: #### L [id number] #### [facility] ([facility]) [address] [place] [address] Labon 10-02-2023 Lab [id number] AlmasTravis Perry 1940 M Date Provider Department [place] 10/02/20232241-[facility] RESOURCE [facility] Comprehensiv No family history on file Normal [facility] MAGNESIUMon 10-02-2023 Magnesium [Mass/Vol] 1.8 mg/dL Low 1.9-2.7 [facility] Comment on above: Performed By: #### L [id number] #### [facility] ([facility]) [address] [place] [address] PHOSPHORUSon 10-02-2023 Magnesium [Mass/Vol] 2.7 mg/dL Normal 2.5-5.0 [facility] Comment on above: Performed By: #### L [id number] #### [facility] ([facility]) [address] [place] [address] PROTEIN, URINE, RANDOMon Protein (U) [Mass/Vol] 5.6 mg/dL Normal [facility] Comment on above: Result Comment: Ther e are no established reference values for random urine specimens. Performed By: #### L [id number] ####[facility] ([facility])[address] [place] [address] URINALYSIS WITH MICROSCOPICo n 10-02-2023 BILIRUBIN, TOTAL PRESENCE IN URINE Negative Normal Negative [facility] Comment on above: Order Comment: 00 00 Performed By: #### L [id number] #### [facility] ([facility]) [address] [place] [address] Clarity (U) Clear Normal Clear [facility] Comment on above: Order Comment: 00 00 Performed By: #### L [id number] #### [facility] ([facility]) [address] [place] [address] Color (U) Yellow Normal Yellow, Dark Yellow, Straw [facility] Comment on above: Order Comment: 00 00 Performed By: #### L [id number] #### [facility] ([facility]) [address] [place] [address] Glucose (U) [Mass/Vol] Negative Normal Negative [facility] Comment on above: Order Comment: 00 00 Performed By: #### L [id number] #### [facility] ([facility]) [address] [place] [address] HEMOGLOBIN PRESENCE IN URINE Negative Normal Negative [facility] Comment on above: Order Comment: 00 00 Performed By: #### L [id number] #### [facility] ([facility]) [address] [place] [address] Ketones Ql (U) Negative Normal Negative [facility] Comment on above: Order Comment: 00 00 Performed By: #### L [id number] #### [facility] ([facility]) [address] [place] [address] LEUKOCYTE ESTERASE PRESENCE IN URINE BY TEST STRIP Negative Normal Negative [facility] Comment on above: Order Comment: 00 00 Performed By: #### L [id number] #### [facility] ([facility]) [address] [place] [address] NITRITE PRESENCE IN URINE Negative Normal Negative [facility] Comment on above: Order Comment: 00 00 Performed By: #### L [id number] #### [facility] ([facility]) [address] [place] [address] pH (U) 6.0 [pH] Normal 5.0-8.0 [facility] Comment on above: Order Comment: 00 00 Performed By: #### L [id number] #### [facility] ([facility]) [address] [place] [address] Protein (U) [Mass/Vol] Negative Normal Negative [facility] Comment on above: Order Comment: 00 00 Performed By: #### L [id number] #### [facility] ([facility]) [address] [place] [address] RBC (#/HPF) IN URINE SEDIMENT 0-2 Abnormal None Seen [facility] Comment on above: Order Comment: 00 00 Performed By: #### L [id number] #### [facility] ([facility]) [address] [place] [address] Specific gravity (U) [Rel density] <=1.005 Low 1.015-1.020 [facility] Comment on above: Order Comment: 00 00 Performed By: #### L [id number] #### [facility] ([facility]) [address] [place] [address] SQUAMOUS EPITHELIAL CELLS (#/HPF) IN URINE SEDIMENT Occasional Normal None Seen, Occasional [facility] Comment on above: Order Comment: 00 00 Performed By: #### L [id number] #### [facility] ([facility]) [address] [place] [address] WBC (LEUKOCYTE) (#/HPF) IN URINE SEDIMENT 0-2 Abnormal None Seen [facility] Comment on above: Order Comment: 00 00 Performed By: #### L [id number] #### [facility] ([facility]) [address] [place] [address] VITAMIN D 25 HYDROXYon 10-01 CALCIDIOL (25 [place] VITAMIN D3) (NG/ML) IN SER/PLAS 16.1 ng/mL Low 30.0-80.0 [facility] Comment on above: Result Comment: >80. 0 Toxicity possible Performed By: #### L [id number] #### [facility] ([facility]) [address] [place] [address] Ambulatory Visit Summaryon 0 09-13-2023 Ambulatory Visit Summary ALMASTRAVIS :1940 Visit Date:09/13/2023 Ambulatory Visit Instructions Your [...] TURNER, Nguyễn Peter Where: [facility] General Surgery Office/Clini c Noteon 09-13-2023 [...] influenza virus vaccine, inactivated 05/22/2014 Recorded Normal [facility] Comment on above: Result Comment: Elec [...] TURNER, Nguyễn Peter Where: [facility] General Surgery Office/Clini c Noteon 09-01-2023 [...] influenza virus vaccine, inactivated 07/26/2022 Recorded SARSCoV2 mRNA(otuoysopt-ajrr-c ucros) vac 11/17/2021 Recorded SARS-CoV-2 (COVID-19) mRNA BNT-162b2 vax 05/20/2021 Recorded 2023-03-20: TPV75 SARS-CoV-2 (COVID-19) mRNA BNT-162b2 vax 11/17/2020 Recorded SARS-CoV-2 (COVID-19) mRNA BNT-162b2 vax 10/29/2020 Recorded 2023-03-20: TPV75 SARS-CoV-2 (COVID-19) mRNA BNT-162b2 vax 10/27/2020 Recorded SARS-CoV-2 (COVID-19) mRNA BNT-162b2 vax 10/06/2020 Recorded 2023-03-20: TPV75 influenza virus vaccine, in (more content not included)... Normal [facility] Comment on above: Result Comment: Elec tronically Signed By: MAXX TURNER, Wade Peter\.br\Date and Time Signed: 09/01/23 14:34 EST Pathology Noteon 08-28-2023 Pathology Note [id number] [facility] Ambulatory Visit Summaryon 0 08-22-2023 Ambulatory Visit [...] TURNER, Nguyễn Peter Where: [facility] Lydia Sahu [facility] General Surgery Office/Clini c Noteon 08-22-2023 General [...] influenza virus vaccine, inactivated 07/26/2022 Recorded SARSCoV2 mRNA(uwcjquznu-yvns-h ucros) vac 11/17/2021 Recorded SARS-CoV-2 (COVID-19) mRNA BNT-162b2 vax 05/20/2021 Recorded 2023-03-20: TPV75 SARS-CoV-2 (COVID-19) mRNA BNT-162b2 vax 11/17/2020 Recorded SARS-CoV-2 (COVID-19) mRNA BNT-162b2 vax 10/29/2020 Recorded 2023-03-20: TPV75 SARS-CoV (more content not included)... Normal [facility] Comment on above: Result Comment: Elec tronically Signed By: MAXX TURNER, Wade Ko.br\Date and Time Signed: 08/22/23 14:34 EST [place] 08-22-2023 L Specimen: [id number] Received: 08/23/23 Status: VERONICAKasie Realexis Num: [id number] Spec Type: Surgical Subm Dr: Wade Lilly MD FACS Tissues: A Skin-Other than Cyst, tag, debridement or plastic repair (RT POST CALF) Procedures: HE/3, Gross/Micro L4 Age/ Patient Sex Location Account Attending Physician Travis Coburn 82/M [facility] [id number] Wade Lilly MD FACS SPEC NUM: [id number] RECD: 08/23/23 STATUS: JUAN LUIS REAlexis NUM: [id number] APRIL: 08/22/23- SUBM DR: Wade Lilly MD FACS ENTERED: 08/23/[address]: Artur Al SPEC TYPE: Surgical DEPT: NICOLA TENA ENTERED BY: [id number] RECV BY: [id number] ORDERED: , Gross/Micro L4 ORDERED: , Gross/Micro [...] an unknown oriented 1.8 x 0.8 cm cunningham-whittakre skin excision with a depth of 0.1 cm. On the skin surface is a pale 0.8 x 0.8 cm cunningham-whittaker centrally ulcerated papule which abuts the long edges of excision. The margin is inked green. Entirely submitted in 3 cassettes as follows: A1 - Tips A2-A3 - Remainder CPT Codes 77731 -------- -------- Specimen: [id number] Received: 08/23/23 Status: JUAN LUIS Juárez Num: [id number] Spec Type: Surgical Subm Dr: Wade iLlly MD FACS Tissues: A Skin-Other than Cyst, tag, debridement or plastic repair (RT POST CALF) Procedures: , Gross/Micro L4 -------- Patient: Travis Coburn [id number] (Continued) -------- Signed (signature on file) Joon Bermudez MD 08/24/23 2207 Normal [facility] CBC WITH AUTO DIFFERENTIALon 08-17-2023 Basophils (Bld) [#/Vol] 0.04 10*3/uL Normal 0.00-0.20 [facility] Comment on above: Performed By: #### L [id number] ####[facility] ([facility])[address] [facility] [place] [address] Basophils/100 WBC (Bld) 0.6 % Normal 0.0-1.0 [facility] Comment on above: Performed By: #### L [id number] ####[facility] ([facility])[address] [place] [address] Eosinophils (Bld) [#/Vol] 0.12 10*3/uL Normal 0.00-0.50 [facility] Comment on above: Performed By: #### L [id number] ####[facility] ([facility])[address] [place] [address] Eosinophils/100 WBC (Bld) 1.8 % Normal 0.0-6.0 [facility] Comment on above: Performed By: #### L [id number] ####[facility] ([facility])[address] [place] [address] Erythrocyte distribution width (RBC) [Ratio] 13.9 % Normal 11.5-15.0 [facility] Comment on above: Performed By: #### L [id number] ####[facility] ([facility])[address] [place] [address] ERYTHROCYTE MEAN CORPUSCULAR HEMOGLOBIN CONCENTRATION (G/DL) BY AUTOMATED 34.0 g/dL Normal 32.0-35.0 [facility] Comment on above: Performed By: #### L [id number] ####[facility] (BEAKER)[address] [place] [address] Hematocrit (Bld) [Volume fraction] 42.0 % Normal 39.0-55.0 [facility] Comment on above: Performed By: #### L [id number] ####[facility] (BEAKER)[address] [place] [address] Hemoglobin (Bld) [Mass/Vol] 14.3 g/dL Normal 13.0-17.0 [facility] Comment on above: Performed By: #### L [id number] ####[facility] (BEAKER)[address] [place] [address] Immature granulocytes (Bld) [#/Vol] 0.04 10*3/uL Normal 0.00-0.20 [facility] Comment on above: Performed By: #### L [id number] ####[facility] (BEAKER)[address] [place] [address] Immature granulocytes/100 WBC (Bld) 0.6 % Normal 0.0-1.0 [facility] Comment on above: Performed By: #### L [id number] ####[facility] (BEAKER)[address] [place] [address] Lymphocytes (Bld) [#/Vol] 1.67 10*3/uL Normal 1.20-4.00 [facility] Comment on above: Performed By: #### L [id number] ####[facility] (BEAKER)[address] [place] [address] Lymphocytes/100 WBC (Bld) 25.6 % Normal 20.0-45.0 [facility] Comment on above: Performed By: #### L [id number] ####[facility] (BEAKER)[address] [place] [address] MCH (RBC) [Entitic mass] 31.9 pg Normal 27.0-33.0 [facility] Comment on above: Performed By: #### L [id number] ####[facility] (BEAKER)[address] [place] [address] MCV (RBC) [Entitic vol] 93.8 fL Normal 82.0-98.0 [facility] Comment on above: Performed By: #### L [id number] ####[facility] (BEAKER)[address] [place] [address] Monocytes (Bld) [#/Vol] 0.49 10*3/uL Normal 0.10-1.00 [facility] Comment on above: Performed By: #### L [id number] ####[facility] (BEAKER)[address] [place] [address] Monocytes/100 WBC (Bld) 7.5 % Normal 5.0-12.0 [facility] Comment on above: Performed By: #### L [id number] ####[facility] (BEAKER)[address] [place] [address] Neutrophils (Bld) [#/Vol] 4.17 10*3/uL Normal 1.60-7.60 [facility] Comment on above: Performed By: #### L [id number] ####[facility] (BEAKER)[address] [place] [address] Neutrophils/100 WBC (Bld) 63.9 % Normal 40.0-72.0 [facility] Comment on above: Performed By: #### L [id number] ####[facility] (BEAKER)[address] [place] [address] NRBC (PER 100 WBCS) BY AUTOMATED COUNT 0.0 % Normal 0 [facility] Comment on above: Performed By: #### L [id number] ####[facility] (BEAKER)[address] [place] [address] PLATELETS (10*3/UL) IN BLOOD AUTOMATED COUNT 186 10*3/uL Normal 150-400 [facility] Comment on above: Performed By: #### L [id number] ####[facility] ([facility])[address] [place] [address] RBC (Bld) [#/Vol] 4.48 10*6/uL Normal 4.20-5.70 [facility] Comment on above: Performed By: #### L [id number] ####[facility] ([facility])[address] [place] [address] WBC (Bld) [#/Vol] 6.53 10*3/uL Normal 4.00-10.60 [facility] Comment on above: Performed By: #### L [id number] ####[facility] ([facility])[address] [place] [address] COMPREHENSIVE METABOLIC PANE [place] 08-17-2023 Albumin [Mass/Vol] 4.0 g/dL Normal 3.5-5.7 [facility] Comment on above: Performed By: #### L [id number] #### [facility] ([facility]) [address] [place] [address] ALP [Catalytic activity/Vol] 98 U/L Normal 34-104 [facility] Comment on above: Performed By: #### L [id number] #### [facility] ([facility]) [address] [place] [address] ALT [Catalytic activity/Vol] 25 U/L Normal 7-52 [facility] Comment on above: Performed By: #### L [id number] #### [facility] ([facility]) [address] [place] [address] Anion gap [Moles/Vol] 12 mmol/L Normal 7-20 [facility] Comment on above: Performed By: #### L [id number] #### [facility] ([facility]) [address] [place] [address] AST [Catalytic activity/Vol] 19 U/L Normal 13-39 [facility] Comment on above: Performed By: #### L [id number] #### [facility] ([facility]) [address] [place] [address] Bilirubin [Mass/Vol] 0.5 mg/dL Normal 0.3-1.0 [facility] Comment on above: Performed By: #### L [id number] #### [facility] ([facility]) [address] [place] [address] Calcium [Mass/Vol] 8.8 mg/dL Normal 8.6-10.3 [facility] Comment on above: Performed By: #### L [id number] #### [facility] ([facility]) [address] [place] [address] Chloride [Moles/Vol] 102 mmol/L Normal 98-107 [facility] Comment on above: Performed By: #### L [id number] #### [facility] ([facility]) [address] [place] [address] CO2 [Moles/Vol] 27 mmol/L Normal 21-31 [facility] Comment on above: Performed By: #### L [id number] #### [facility] ([facility]) [address] [place] [address] Creatinine [Mass/Vol] 1.12 mg/dL Normal 0.70-1.30 [facility] Comment on above: Performed By: #### L [id number] #### [facility] ([facility]) [address] [place] [address] GLOMERULAR FILTRATION RATE ML/MIN/1.73 SQ M.PREDICTED 66.0 mL/min/1.73m*2 Normal >60.0 [facility] Comment on above: Result Comment: [facility]???s estimated glomerular filtration rate (eGFR) will no [...] individuals. Performed By: #### L [id number] #### [facility] ([facility]) [address] [place] [address] Glucose [Mass/Vol] 95 mg/dL Normal 70-100 [facility] Comment on above: Performed By: #### L [id number] #### [facility] ([facility]) [address] [place] [address] Potassium [Moles/Vol] 3.7 mmol/L Normal 3.5-5.1 [facility] Comment on above: Performed By: #### L [id number] #### [facility] ([facility]) [address] [place] [address] Protein [Mass/Vol] 6.6 g/dL Normal 6.0-8.3 [facility] Comment on above: Performed By: #### L [id number] #### [facility] ([facility]) [address] [place] [address] Sodium [Moles/Vol] 137 mmol/L Normal 136-145 [facility] Comment on above: Performed By: #### L [id number] #### [facility] ([facility]) [address] [place] [address] Urea nitrogen [Mass/Vol] 16 mg/dL Normal 7-25 [facility] Comment on above: Performed By: #### L [id number] #### [facility] ([facility]) [address] [place] [address] UREA NITROGEN/CREATININ E (MASS RATIO) IN SER/PLAS 14.3 Normal [facility] Comment on above: Performed By: #### L [id number] #### [facility] ([facility]) [address] [place] [address] Follow-Upon 08-17-2023 Follow-Up [id number] Travis Coburn 1940 M Date Provider Department Center 08/17/2023 LUIS DANIEL HAYNES [facility] RHEUM Eloise Heal No family history on file Level of Service:07583 ID OFFICE/OUTPATIENT ESTABLISHED MOD MDM 30 MIN Reason for Visit and Comments: Follow-up [692468] - 6 mo follow up [facility] Orders Onlyon 08-17-2023 Orders Only [id number] Travis Coburn 1940 M Date Provider Department Center 08/17/2023 JOON VAZQUEZ [facility] R[facility]UM Eloise Heal No family history on file Normal [facility] Office Visiton 08-16-2023 Follow-up visit [id number] Travis oCburn 1940 M Date Provider Department Center 08/16/2023 TOO BLOCK [facility] NEPHRO Comprehensiv No family history on file Level of Service:91077 ID OFFICE/OUTPATIENT NEW MODERATE MDM 45 MINUTES (GC) Reason for Visit and Comments: New Patient [632] [facility] Ambulatory Visit Summaryon 0 07-18-2023 Ambulatory Visit [...] TURNER, Wade Peter Where: General Surgery [facility] [place] Normal [address] [place] [address]- \.br\ Medications\.br\ What How Much When Instructions\.br\ [...] for choosing us for your care.\.br\ \.br\ [facility] Physician Referralon 024 Physician Referral [phone] 1 [id number] .00TIFF Normal [facility] Physician Referral [phone] 1 [id number]#1 .00TIFF [facility] 36on 06-13-2023 36 Pt called (very anxious) to let you know that the Nephrology office can not see him until 08/01/23. Normal [facility] 36 New order faxed to [facility] Also Options explained to Patient, who expressed understanding Normal [facility] Orders Onlyon 06-13-2023 Orders Only [id number] Travis Coburn 1940 M Date Provider Department Center 06/13/2023 317-IVORYMEHRAN MANGOSUKHDEV M UTCF RHEUM PRCF No family history on file [facility] Telephoneon 06-13-2023 Telephone [id number] Travis Coburn 1940 M Date Provider Department Center 06/13/2023 853-MIGUEL GRANDE C RHEUM Eloise Heal No family history on file Normal [facility] 36on 06-09-2023 36 Could you please shayla l patient Normal [facility] Orders Onlyon 06-09-2023 Orders Only [id number] Travis Coburn 1940 M Date Provider Department Center 06/09/2023 [facility]206[facility] Eloise Heal No family history on file Normal [facility] FLUORO FOR SURGICAL PROCEDUR ESon 04-05-2023 FLUORO FOR SURGICAL PROCEDURES RADRPT Radiology exam is complete. No Radiologist dictation. Please follow up with ordering provider. Final result Normal [facility] SURGICALon 04-05-2023 SURGICAL [place] [facility] TRAVIS COBURN [id number] Assoc. Page [address] of [address] [place] [address] PROC: 04/05/2023 [facility] RECV: 04/06/[address] RPTD: 04/07/2023 [place] [address] LOC: NAT ACCT: [id number] SEX: M : 1940 AGE: 82 Y [...] type of test is available upon request. [id number] 16501 REJI FITZGERALD M.D., F.C.A.P. 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 Page 1 of 1\X0D0A\[address] \X0D0A\[place] [address]\X0D0A\ PROC: 04/05/2023\X0D0A\[facility] RECV: 04/06/2023\X0D0A\[address] RPTD: 04/07/2023\[place]0D0A\[place] [address]\X0D0A\ LOC: WYA\X0D0A\ ACCT: [id number] SEX: M\X0D0A\ : 1940 AGE: 82 Y\X0D0A\X0D0A\ [...] about this type\X0D0A\of test is available upon request.\X0D0A\X0D0A\37330\X0D0A\32618\X0D0A\22923\X0D0A\X0D0A\X 0D0A\ \X0D0A\ REJI FITZGERALD M.D., F.C.A.P.\X0D0A\X0D0A\X0D0A\[facility]/ [facility] Printed on: 04/07/2023\X0D0A\[address]\X0D0A\[place], [place] [address]\X0D0A\Original print date: 04/07/2023 Performed By: #### 1 [id number] #### [facility] See Report Ambulatory Visit Summaryon 0 03-20-2023 Ambulatory Visit Summary TRAVIS COBURN :1940 Visit Date:03/20/2023 Ambulatory Visit Instructions Your Diagnosis Nocturia Urinary urgency BPH with urinary obstruction History of kidney stones Impotence Tests Performed Urnls Dip Stick Auto w/o Microscopy POC [id number] Your Care Team Attending Physician - MIRIAN [...] TURNER, Nguyễn Peter Where: [facility] Patient Educationon 03-20-20 23 Patient Education [...] Follow these instructions at home: ? Take mxxr-rcv-wxfyfuf and prescription medicines only as told by [...] the medicine (more content not included)... 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 Reports he has [...] 6 months [facility] [address], [place] [address]- [phone] Additional Instructions: Patient Education Benign Prostatic Hyperplasia Jackeline Emery, personally scribed for Dr. Vela on 03/20/2023 15:38:16. . Documentation recorded by the scribJackeline bassett, accurately reflects the services(s) I performed and [...] data Procedure/ (more content not included)... Normal [facility] Comment on above: Result Comment: Elec tronically Signed By: Nguyễn VELA MD\.br\Date and Time Signed: 03/20/23 15:41 EDT\.br\Electronically Co-Signed By: Jackeline Graff\.br\Date and Time Co-Signed: 03/20/23 15:38 EDT 36on 03-09-2023 36 Orders faxed w/ dx code [facility] 36on 03-07-2023 36 Person from [facility] called to states ICD-10 code (current code on order Z79.631) on blood work order is not being accepted by patient's medicare insurance. They would need a new order w/ a new dx code. I can fax new order to below number when completed [facility] Telephoneon 03-07-2023 Telephone [id number] Travis Coburn 1940 [facility] Provider Department Center 03/07/2023 YOUSUF DUBON [facility] RHEUM Eloise Heal No family history on file Reason for Visit and Comments: Med Refill [[id number]] [facility] Follow-Upon 02-23-2023 Follow-Up [id number] Travis Coburn 1940 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 Layla Barrera CBC AUTO DIFFon 10-25-2022 BASO # 0.0 103/ul Normal 0.0-0.1 [facility] Comment on above: Performed By: #### C BC #### [facility] [address] [place] [address] Dr. Layla Barrera Basophils/100 WBC (Bld) 0.6 % Normal 0.2-2.0 [facility] Comment on above: Performed By: #### C BC #### [facility] [address] [place] [address] Dr. Layla Barrera EO # 0.3 103/ul Normal 0.0-0.7 [facility] Comment on above: Performed By: #### C BC #### [facility] [address] [place] [address] Dr. Layla Barrera Eosinophils/100 WBC (Bld) 4.2 % Normal 0.9-7.0 [facility] Comment on above: Performed By: #### C BC #### [facility] [address] [place] [address] Dr. Layla Barrera Erythrocyte distribution width (RBC) [Ratio] 13.6 % Normal 11.0-15.0 [facility] Comment on above: Performed By: #### C BC #### [facility] [address] [place] [address] Dr. Layla Barrera Hematocrit (Bld) [Volume fraction] 42.6 % Normal 42.0-54.0 [facility] Comment on above: Performed By: #### C BC #### [facility] [address] [place] [address] Dr. Layla Barrera Hemoglobin (Bld) [Mass/Vol] 14.7 g/dL Normal 14.0-18.0 [facility] Comment on above: Performed By: #### C BC #### [facility] [address] [place] [address] Dr. Layla Barrera IG # 0.02 10e3/ul Normal 0.00-0.03 [facility] Comment on above: Performed By: #### C BC #### [facility] [address] [place] [address] Dr. Layla Barrera IG % 0.3 % Normal 0.0-0.5 [facility] Comment on above: Performed By: #### C BC #### [facility] [address] [place], [place] [address] Dr. Layla Barrera LYMPH # 2.1 103/ul Normal 1.2-3.8 [facility] Comment on above: Performed By: #### C BC #### [facility] [address] [place] [address] Dr. Layla Barrera Lymphocytes/100 WBC (Bld) 30.1 % Normal 20.5-60.0 [facility] Comment on above: Performed By: #### C BC #### [facility] [address] [place] [address] Dr. Layla Barrera MANUAL DIFF REQ NO Normal [facility] Comment on above: Performed By: #### C BC #### [facility] [address] [place] [address] Dr. Layla Barrera MCH (RBC) [Entitic mass] 32.1 pg Normal 25.9-34.0 [facility] Comment on above: Performed By: #### C BC #### [facility] [address] [place] [address] Dr. Layla Barrera MCHC (RBC) [Mass/Vol] 34.5 g/dL Normal 29.9-35.2 [facility] Comment on above: Performed By: #### C BC #### [facility] [address] [place] [address] Dr. Layla Barrera MCV (RBC) [Entitic vol] 93.0 fL Normal 80.0-94.0 [facility] Comment on above: Performed By: #### C BC #### [facility] [address] [place] [address] Dr. Layla Barrera MONO # 0.6 103/ul Normal 0.3-0.8 [facility] Comment on above: Performed By: #### C BC #### [facility] [address] [place] [address] Dr. Layla Barrera Monocytes/100 WBC (Bld) 8.5 % Normal 1.7-12.0 [facility] Comment on above: Performed By: #### C BC #### [facility] [address] [place] [address] Dr. Layla Barrera NEUT # 3.9 103/ul Normal 1.4-6.5 [facility] Comment on above: Performed By: #### C BC #### [facility] [address] [place] [address] Dr. Layla Barrera Neutrophils/100 WBC (Bld) 56.3 % Normal 43.0-75.0 [facility] Comment on above: Performed By: #### C BC #### [facility] [address] [place] [address] Dr. Layla Barrera Platelet mean volume (Bld) [Entitic vol] 10.6 fL Normal 9.5-13.5 [facility] Comment on above: Performed By: #### C BC #### [facility] [address] [place] [address] Dr. Layla Barrera PLT 168 103/ul Normal 150-450 [facility] Comment on above: Performed By: #### C BC #### [facility] [address] [place] [address] Dr. Layla Barrera RBC 4.58 106/ul Critically low 4.70-6.10 [facility] Comment on above: Performed By: #### C BC #### [facility] [address] [place] [address] Dr. Layla Barrera WBC 7.0 103/ul Normal 4.0-11.0 [facility] Comment on above: Performed By: #### C BC #### [facility] [address] [place] [address] Dr. Layla Barrera FREE THYROXINE INDEX T7on FTI 2.21 Normal 1.30-4.50 [facility] Comment on above: Performed By: #### C BC #### [facility] [address] [place] [address] Dr. Layla Barrera T3U 33.0 % Normal 33.0-40.0 [facility] Comment on above: Performed By: #### C BC #### [facility] [address] [place] [address] Dr. Layla Barrera T4 [Mass/Vol] 6.70 ug/dL Normal 4.50-12.10 [facility] Comment on above: Performed By: #### C BC #### [facility] [address] [address] [address] Layla Barrera GLYCOHEMOGLOBIN A1Con 2022 ADA RECOMMENDATION SEE BELOW Normal [facility] Comment on above: Result Comment: ADA RECOMMENDED LIMIT 4.0 - 6.0 ADA THERAPEUTIC TARGET < 7.0 ACTION SUGGESTED > 7.0 Performed By: #### G IPANEL #### [facility] [address] [address] [address] Layla Barrera Glucose [Mass/Vol] 146 mg/dL Normal [facility] Comment on above: Performed By: #### G IPANEL #### [facility] [address] [place] [address] Dr. Layla Barrera HbA1c (Bld) [Mass fraction] 6.7 % Critically high 4.5-6.2 [facility] Comment on above: Performed By: #### G IPANEL #### [facility] [address] [place] [address] Dr. Layla Barrera IRONon 10-25-2022 Iron [Mass/Vol] 82.0 ug/dL Normal 65.0-175.0 [facility] Comment on above: Performed By: #### I SONYA MCGOVERN, [id number] #### [facility] [address] [place] [address] Dr. Layla Barrera LIPID PROFILEon 10-25-2022 CHOL-HDL RATIO NORM SEE BELOW Normal [facility] Comment on above: Result Comment: 3.3 - 4.4 LOW RISK 4.4 - 7.1 AVERAGE RISK 7.1 - 11.0 MODERATE RISK >11.0 HIGH RISK Performed By: #### C BC #### [facility] [address] [place] [address] Dr. Layla Barrera Cholesterol [Mass/Vol] 201 mg/dL Critically high <=200 [facility] Comment on above: Performed By: #### C BC #### [facility] [address] [place] [address] Dr. Layla Barrera Cholesterol in HDL [Mass/Vol] 46 mg/dL Normal 40-60 [facility] Comment on above: Performed By: #### C BC #### [facility] [address] [address] [address] Layla Barrera Cholesterol in LDL [Mass/Vol] 133.4 mg/dL Normal [facility] Comment on above: Performed By: #### C BC #### [facility] [address] [address] [address] Layla Barrera Cholesterol.total/ Cholesterol in HDL [Mass ratio] 4.4 {ratio} Normal [facility] Comment on above: Performed By: #### C BC #### [facility] [address] [address] [address] Layla Barrera HDL NORMAL > or = 60 mg/dl - LO W CARDIOVASCULAR RISK <40 mg/dl - HIGH CARDIOVASCULAR RISK Normal [facility] Comment on above: Performed By: #### C BC #### [facility] [address] [place] [address] Dr. Layla Barrera LDL CALC NORMAL SEE BELOW Normal [facility] Comment on above: Result Comment: <100 mg/dl OPTIMAL 100 - 129 mg/dl NEAR OR ABOVE OPTIMAL 130 - 159 mg/dl BORDERLINE HIGH 160 - 189 mg/dl HIGH >190 mg/dl VERY HIGH Performed By: #### C BC #### [facility] [address] [place] [address] Dr. Layla Barrera Triglyceride [Mass/Vol] 108 mg/dL Normal <=150 [facility] [facility] Comment on above: Performed By: #### C BC #### [facility] [address] [place] [address] Dr. Layla Barrera VLDL CALC 21.6 mg/dL Normal [facility] Comment on above: Performed By: #### C BC #### [facility] [address] [place] [address] Dr. Layla Barrera PROF 14(COMP METB)on 023 Albumin [Mass/Vol] 3.6 g/dL Normal 3.4-5.0 [facility] Comment on above: Performed By: #### C BC #### [facility] [address] [place] [address] Dr. Layla Barrera Albumin/Globulin [Mass ratio] 1.0 {ratio} Normal [facility] Comment on above: Performed By: #### C BC #### [facility] [address] [place] [address] Dr. Layla Barrera ALP [Catalytic activity/Vol] 101 U/L Normal 46-116 [facility] Comment on above: Performed By: #### C BC #### [facility] [address] [place] [address] Dr. Layla Barrera ALT [Catalytic activity/Vol] 42 U/L Normal 16-63 [facility] Comment on above: Performed By: #### C BC #### [facility] [address] [place] [address] Dr. Layla Barrera Anion gap [Moles/Vol] 12.8 mmol/L Normal [facility] Comment on above: Performed By: #### C BC #### [facility] [address] [place] [address] Dr. Layla Barrera AST [Catalytic activity/Vol] 26 U/L Normal 15-37 [facility] Comment on above: Performed By: #### C BC #### [facility] [address] [place] [address] Dr. Layla Barrera Bilirubin [Mass/Vol] 0.7 mg/dL Normal 0.2-1.0 [facility] Comment on above: Performed By: #### C BC #### [facility] [address] [place] [address] Dr. Layla Barrera Calcium [Mass/Vol] 8.9 mg/dL Normal 8.5-10.1 [facility] Comment on above: Performed By: #### C BC #### [facility] [address] [place] [address] Dr. Layla Barrera Chloride [Moles/Vol] 103 mmol/L Normal 98-107 [facility] Comment on above: Performed By: #### C BC #### [facility] [address] [place] [address] Dr. Layla Barrera CO2 [Moles/Vol] 26.3 mmol/L Normal 21.0-32.0 [facility] Comment on above: Performed By: #### C BC #### [facility] [address] [address] [address] Layla Barrera Creatinine [Mass/Vol] 1.24 mg/dL Normal 0.70-1.30 [facility] Comment on above: Performed By: #### C BC #### [facility] [address] [address] [address] Layla Barrera EGFR-AF CITIZEN OF [place] >60 Normal >=60 [facility] Comment on above: Performed By: #### C BC #### [facility] [address] [address] [address] Layla Barrera EGFR-NON AF CITIZEN OF [place] 56 mL/min/1.73m2 Critically low >=60 [facility] Comment on above: Performed By: #### C BC #### [facility] [address] [place] [address] Dr. Layla Barrera Globulin (S) [Mass/Vol] 3.5 g/dL Normal [facility] Comment on above: Performed By: #### C BC #### [facility] [address] [address] [address] Layla Barrera Glucose [Mass/Vol] 147 mg/dL Critically high 74-106 [facility] Comment on above: Performed By: #### C BC #### [facility] [address] [address] [address] Layla Barrera Potassium [Moles/Vol] 4.1 mmol/L Normal 3.5-5.1 [facility] Comment on above: Performed By: #### C BC #### [facility] [address] [address] [address] Layla Barrera Protein [Mass/Vol] 7.1 g/dL Normal 6.4-8.2 [facility] Comment on above: Performed By: #### C BC #### [facility] [address] [address] [address] Layla Barrera Sodium [Moles/Vol] 138 mmol/L Normal 136-145 [facility] Comment on above: Performed By: #### C BC #### [facility] [address] [address] [address] Layla Barrera Urea nitrogen [Mass/Vol] 18.0 mg/dL Normal 7.0-18.0 [facility] Comment on above: Performed By: #### C BC #### [facility] [address] [place] [address] Dr. Layla Barrera Urea nitrogen/Creatinin e [Mass ratio] 14.5 mg/mg Normal [facility] Comment on above: Performed By: #### C BC #### [facility] [address] [place] [address] Dr. Layla Barrera TSHon 10-25-2022 TSH 2.495 uIU/mL Normal 0.358-3.740 [facility] Comment on above: Performed By: #### C BC #### [facility] [address] [place] [address] Dr. Layla Barrera URIC ACID SERUMon 10-25-2022 Urate [Mass/Vol] 8.1 mg/dL Critically high 3.5-7.2 [facility] Comment on above: Performed By: #### C BC #### [facility] [address] [place] [address] Dr. Layla Barrera VITAMIN B12on 10-25-2022 Cobalamin (Vitamin B12) [Mass/Vol] 689.0 pg/mL Normal 193.0-986.0 [facility] Comment on above: Performed By: #### I SONYA MCGOVERN VITB12 #### [facility] [address] [place] [address] Dr. Layla Barrera VITAMIN D 25 OHon 10-25-2022 VIT D 25-OH 17.0 ng/mL Normal [facility] Comment on above: Performed By: #### I SONYA MCGOVERN VITB12 #### [facility] [address] [place] [address] Dr. Layla Barrera VIT D RANGES SEE BELOW Normal [facility] Comment on above: Result Comment: <20 ng/mL Vit D deficient 20 - <30 ng/mL Vit D insufficient 30 - 100 ng/mL Vit D sufficient >100 ng/mL Potential Toxicity Performed By: #### I SHANIQUA, VITAD, VITB12 #### [facility] [address] [address] [address] Layla Barrera PSA, FREE AND TOTAL RATIOon 06-22-2022 % Free PSA 49.9 % Normal [facility] Comment on above: Result Comment: The table [...] men. Performed By: #### P SAFREE #### [facility] [address] [place] [address] Dr. Layla Barrera Prostate specific Ag [Mass/Vol] 6.8 ng/mL Critically high 0.0-4.0 [facility] Comment on above: Result Comment: Roch rg ECLIA methodology. . According to the [employer], Serum PSA should decrease and [...] disease. Performed By: #### P SAFREE #### [facility] [id number] Layla Barrera PSA, Free 3.39 ng/mL Normal N/A [facility] Comment on above: Result Comment: Roch e ECLIA methodology. Performed By: #### P SAFREE #### [facility] [address] [place] [address] Dr. Layla Barrera H PYLORI ANTIBODY IGGon 09-0 H. PYLORI IGG ABS 0.96 Index Value Critically high 0.00-0. 79 [facility] Comment on above: Result Comment: Nega tive <0.80 Equivocal 0.80 - 0.89 Positive >0.89 Performed By: #### C BC #### [facility] [address] [place] [address] Dr. Layla Barrera INSULINon 03-12-2022 Insulin 38.7 uIU/mL Critically high 2.6-24.9 [facility] Comment on above: Performed By: #### G IPANEL #### [facility] [address] [place] [address] Dr. Layla Barrera AMYLASEon 03-11-2022 Amylase [Catalytic activity/Vol] 54 U/L Normal 25-115 [facility] Comment on above: Performed By: #### G IPANEL #### [facility] [address] [place] [address] Dr. Layla Barrera CBC AUTO DIFFon 03-11-2022 BASO # 0.1 103/ul Normal 0.0-0.1 [facility] Comment on above: Performed By: #### C BC #### [facility] [address] [place] [address] Dr. Layla Barrera Basophils/100 WBC (Bld) 0.7 % Normal 0.2-2.0 [facility] Comment on above: Performed By: #### C BC #### [facility] [address] [place] [address] Dr. Layla Barrera EO # 0.3 103/ul Normal 0.0-0.7 [facility] Comment on above: Performed By: #### C BC #### [facility] [address] [place] [address] Dr. Layla Barrera Eosinophils/100 WBC (Bld) 3.6 % Normal 0.9-7.0 [facility] Comment on above: Performed By: #### C BC #### [facility] [address] [place] [address] Dr. Layla Barrera Erythrocyte distribution width (RBC) [Ratio] 13.2 % Normal 11.0-15.0 [facility] Comment on above: Performed By: #### C BC #### [facility] [address] [place] [address] Dr. Layla Barrera Hematocrit (Bld) [Volume fraction] 43.0 % Normal 42.0-54.0 [facility] Comment on above: Performed By: #### C BC #### [facility] [address] [place] [address] Dr. Layla Barrera Hemoglobin (Bld) [Mass/Vol] 14.6 g/dL Normal 14.0-18.0 [facility] Comment on above: Performed By: #### C BC #### [facility] [address] [place] [address] Dr. Layla Barrera IG # 0.03 10e3/ul Normal 0.00-0.03 [facility] Comment on above: Performed By: #### C BC #### [facility] [address] [place] [address] Dr. Layla Barrera IG % 0.4 % Normal 0.0-0.5 [facility] Comment on above: Performed By: #### C BC #### [facility] [address] [place] [address] Dr. Layla Barrera LYMPH # 3.0 103/ul Normal 1.2-3.8 [facility] Comment on above: Performed By: #### C BC #### [facility] [address] [place] [address] Dr. Layla Barrera Lymphocytes/100 WBC (Bld) 41.2 % Normal 20.5-60.0 [facility] Comment on above: Performed By: #### C BC #### [facility] [address] [place] [address] Dr. Layla Barrera MANUAL DIFF REQ NO Normal [facility] Comment on above: Performed By: #### C BC #### [facility] [address] [place] [address] Dr. Layla Barrera MCH (RBC) [Entitic mass] 31.8 pg Normal 25.9-34.0 [facility] Comment on above: Performed By: #### C BC #### [facility] [address] [address] [address] Layla Barrera MCHC (RBC) [Mass/Vol] 34.0 g/dL Normal 29.9-35.2 [facility] Comment on above: Performed By: #### C BC #### [facility] [address] [place] [address] Dr. Layla Barrera MCV (RBC) [Entitic vol] 93.7 fL Normal 80.0-94.0 [facility] Comment on above: Performed By: #### C BC #### [facility] [address] [place] [address] Dr. Layla Barrera MONO # 0.6 103/ul Normal 0.3-0.8 [facility] Comment on above: Performed By: #### C BC #### [facility] [address] [place] [address] Dr. Layla Barrera Monocytes/100 WBC (Bld) 7.9 % Normal 1.7-12.0 [facility] Comment on above: Performed By: #### C BC #### [facility] [address] [place] [address] Dr. Layla Barrera NEUT # 3.3 103/ul Normal 1.4-6.5 [facility] Comment on above: Performed By: #### C BC #### [facility] [address] [place] [address] Dr. Layla Barrera Neutrophils/100 WBC (Bld) 46.2 % Normal 43.0-75.0 [facility] Comment on above: Performed By: #### C BC #### [facility] [address] [place] [address] Dr. Layla Barrera Platelet mean volume (Bld) [Entitic vol] 11.1 fL Normal 9.5-13.5 [facility] Comment on above: Performed By: #### C BC #### [facility] [address] [place] [address] Dr. Layla Barrera PLT 171 103/ul Normal 150-450 [facility] Comment on above: Performed By: #### C BC #### [facility] [address] [place], [place] [address] Dr. Layla Barrera RBC 4.59 106/ul Critically low 4.70-6.10 [facility] Comment on above: Performed By: #### C BC #### [facility] [address] [place], [place] [address] Dr. Layla Barrera WBC 7.2 103/ul Normal 4.0-11.0 [facility] Comment on above: Performed By: #### C BC #### [facility] [address] [place], [place] [address] ABD/PELV W CONon [...] CJ MELTON Date: 2022-03-11 10:08 Normal [facility] GI PANEL (PCR)on 03-11-2022 Adenovirus F 40/41 Not detected Normal NOT DETECTED [facility] Comment on above: Performed By: #### G IPANEL #### [facility] [address] [address] [address] Layla Barrera Astrovirus Not detected Normal NOT DETECTED [facility] Comment on above: Performed By: #### G IPANEL #### [facility] [address] [address] [address] Layla Barrera C. Diff toxin A/B Not detected Normal NOT DETECTED [facility] Comment on above: Performed By: #### G IPANEL #### [facility] [address] [address] [address] Layla Barrera Campylobacter Not detected Normal NOT DETECTED [facility] Comment on above: Performed By: #### G IPANEL #### [facility] [address] [address] [address] Layla Barrera Cryptosporidium Not detected Normal NOT DETECTED [facility] Comment on above: Performed By: #### G IPANEL #### [facility] [address] [address] [address] Layla Barrera Cyclos. Cayetanensis Not detected Normal NOT DETECTED [facility] Comment on above: Performed By: #### G IPANEL #### [facility] [address] [address] [address] Layla Barrera E. Coli O157 Not Applicable Normal Not Applicable [facility] Comment on above: Performed By: #### G IPANEL #### [facility] [address] [address] [address] Layla Barrera E. histolytica Not detected Normal NOT DETECTED [facility] Comment on above: Performed By: #### G IPANEL #### [facility] [address] [address] [address] Layla Barrrea EAEC Not detected Normal NOT DETECTED [facility] Comment on above: Performed By: #### G IPANEL #### [facility] [address] [address] [address] Layla Barrera EIEC Not detected Normal NOT DETECTED [facility] Comment on above: Performed By: #### G IPANEL #### [facility] [address] [address] [address] Layla Barrera EPEC Detected Abnormal NOT DETECTED [facility] Comment on above: Performed By: #### G IPANEL #### [facility] [address] [address] [address] Layla Barrera ETEC Not detected Normal NOT DETECTED [facility] Comment on above: Performed By: #### G IPANEL #### [facility] [address] [address] [address] Layla Hennessy Lamblia Not detected Normal NOT DETECTED [facility] Comment on above: Performed By: #### G IPANEL #### [facility] [address] [address] [address] Layla STEINBERG CONTROLS PASSED Normal [facility] Comment on above: Performed By: #### G IPANEL #### [facility] [address] [address] [address] Layla GLOVER HEADER GI PANEL BACTERIA Normal [facility] Comment on above: Performed By: #### G IPANEL #### [facility] [address] [address] [address] Layla SARAVIA ECOLI GI PANEL DIARRHEAGENIC E.COLI / SHIGELLA Normal [facility] Comment on above: Performed By: #### G IPANEL #### [facility] [address] [address] [address] Layla SARAVIA INFO SEE BELOW Normal [facility] Comment on above: Result Comment: EAEC - Enteroaggregative E. Coli EPEC- Enteropathogenic E. Coli ETEC- Enterotoxigenic E. Coli lt/st STEC- Shigella-like toxin-producing E. Coli stx1/stx2 EIEC- Shigella/Enteroinvasive E. Coli Performed By: #### G IPANEL #### [facility] [address] [place] [address] Dr. Layla SARAVIA PARASITES GI PANEL PARASITES Normal [facility] Comment on above: Performed By: #### G IPANEL #### [facility] [address] [address] [address] Layla SARAVIA VIRUS GI PANEL VIRUSES Normal [facility] Comment on above: Performed By: #### G IPANEL #### [facility] [address] [address] [address] Layla Barrera Norovirus GI/GII Not detected Normal NOT DETECTED [facility] Comment on above: Performed By: #### G IPANEL #### [facility] [address] [place] [address] Dr. Layla [place]. Shigelloides Not detected Normal NOT DETECTED [facility] Comment on above: Performed By: #### G IPANEL #### [facility] [address] [place] [address] Dr. Layla Barrera Rotavirus A Not detected Normal NOT DETECTED [facility] Comment on above: Performed By: #### G IPANEL #### [facility] [address] [place] [address] Dr. Layla Barrera Salmonella Not detected Normal NOT DETECTED [facility] Comment on above: Performed By: #### G IPANEL #### [facility] [address] [place] [address] Dr. Layla Barrera Sapovirus Not detected Normal NOT DETECTED [facility] Comment on above: Performed By: #### G IPANEL #### [facility] [address] [place] [address] Dr. Layla Barrera STEC Not detected Normal NOT DETECTED [facility] Comment on above: Performed By: #### G IPANEL #### [facility] [address] [place] [address] Dr. Layla Barrera Vibrio Not detected Normal NOT DETECTED [facility] Comment on above: Performed By: #### G IPANEL #### [facility] [address] [place] [address] Dr. Layla Barrera Vibrio Cholera Not detected Normal NOT DETECTED [facility] Comment on above: Performed By: #### G IPANEL #### [facility] [address] [place] [address] Dr. Layla Barrera Y. Enterocolitica Not detected Normal NOT DETECTED [facility] Comment on above: Performed By: #### G IPANEL #### [facility] [address] [place] [address] Dr. Layla Barrera GLYCOHEMOGLOBIN A1Con 2021 ADA RECOMMENDATION SEE BELOW Normal [facility] [place] [facility] Comment on above: Result Comment: ADA RECOMMENDED LIMIT 4.0 - 6.0 ADA THERAPEUTIC TARGET < 7.0 ACTION SUGGESTED > 7.0 Performed By: #### G IPANEL #### [facility] [address] [place] [address] Dr. Layla Barrera Glucose [Mass/Vol] 134 mg/dL Normal [facility] Comment on above: Performed By: #### G IPANEL #### [facility] [address] [place] [address] Dr. Layla Barrera HbA1c (Bld) [Mass fraction] 6.3 % Critically high 4.5-6.2 [facility] Comment on above: Performed By: #### G IPANEL #### [facility] [address] [place] [address] Dr. Layla Barrera LIPASEon 03-11-2022 Lipase [Catalytic activity/Vol] 82.0 U/L Normal 73.0-393.0 [facility] Comment on above: Performed By: #### G IPANEL #### [facility] [address] [place] [address] Dr. Layla Barrera LIPID PROFILEon 03-11-2022 CHOL-HDL RATIO NORM SEE BELOW Normal [facility] Comment on above: Result Comment: 3.3 - 4.4 LOW RISK 4.4 - 7.1 AVERAGE RISK 7.1 - 11.0 MODERATE RISK >11.0 HIGH RISK Performed By: #### G IPANEL #### [facility] [address] [place] [address] Dr. Layla Barrera Cholesterol [Mass/Vol] 216 mg/dL Critically high <=200 [facility] Comment on above: Performed By: #### G IPANEL #### [facility] [address] [place] [address] Dr. Layla Barrera Cholesterol in HDL [Mass/Vol] 47 mg/dL Normal 40-60 [facility] Comment on above: Performed By: #### G IPANEL #### [facility] [address] [place] [address] Dr. Layla Barrera Cholesterol in LDL [Mass/Vol] 134.4 mg/dL Normal [facility] Comment on above: Performed By: #### G IPANEL #### [facility] [address] [address] [address] Layla Barrera Cholesterol.total/ Cholesterol in HDL [Mass ratio] 4.6 {ratio} Normal [facility] Comment on above: Performed By: #### G IPANEL #### [facility] [address] [address] [address] Layla Barrera HDL NORMAL > or = 60 mg/dl - LO W CARDIOVASCULAR RISK <40 mg/dl - HIGH CARDIOVASCULAR RISK Normal [facility] Comment on above: Performed By: #### G IPANEL #### [facility] [address] [address] [address] Layla Barrera LDL CALC NORMAL SEE BELOW Normal [facility] Comment on above: Result Comment: <100 mg/dl OPTIMAL 100 - 129 mg/dl NEAR OR ABOVE OPTIMAL 130 - 159 mg/dl BORDERLINE HIGH 160 - 189 mg/dl HIGH >190 mg/dl VERY HIGH Performed By: #### G IPANEL #### [facility] [address] [address] [address] Layla Barrera Triglyceride [Mass/Vol] 173 mg/dL Critically high <=150 [facility] Comment on above: Performed By: #### G IPANEL #### [facility] [address] [place] [address] Dr. Layla Barrera VLDL CALC 34.6 mg/dL Normal [facility] Comment on above: Performed By: #### G IPANEL #### [facility] [address] [address] [address] Layla Barrera OCC BLD IMMUNO SCREENon OCCULT BLOOD Negative Normal NEGATIVE [facility] Comment on above: Performed By: #### C BC #### [facility] [address] [address] [address] Layla Barrera PROF 14(COMP METB)on 022 Albumin [Mass/Vol] 3.7 g/dL Normal 3.4-5.0 [facility] Comment on above: Performed By: #### C BC #### [facility] [address] [place] [address] Dr. Layla Barrera Albumin/Globulin [Mass ratio] 1.1 {ratio} Normal [facility] Comment on above: Performed By: #### C BC #### [facility] [address] [place] [address] Dr. Layla Barrera ALP [Catalytic activity/Vol] 90 U/L Normal 46-116 [facility] Comment on above: Performed By: #### C BC #### [facility] [address] [place] [address] Dr. Layla Barrera ALT [Catalytic activity/Vol] 66 U/L Critically high 16-63 [facility] Comment on above: Performed By: #### C BC #### [facility] [address] [place] [address] Dr. Layla Barrera Anion gap [Moles/Vol] 12.8 mmol/L Normal [facility] Comment on above: Performed By: #### C BC #### [facility] [address] [place] [address] Dr. Layla Barrera AST [Catalytic activity/Vol] 32 U/L Normal 15-37 [facility] Comment on above: Performed By: #### C BC #### [facility] [address] [place] [address] Dr. Layla Barrera Bilirubin [Mass/Vol] 0.7 mg/dL Normal 0.2-1.0 [facility] Comment on above: Performed By: #### C BC #### [facility] [address] [place] [address] Dr. Layla Barrera Calcium [Mass/Vol] 8.9 mg/dL Normal 8.5-10.1 [facility] Comment on above: Performed By: #### C BC #### [facility] [address] [place] [address] Dr. Layla Barrera Chloride [Moles/Vol] 100 mmol/L Normal 98-107 [facility] Comment on above: Performed By: #### C BC #### [facility] [address] [place] [address] Dr. Layla Barrera CO2 [Moles/Vol] 27.9 mmol/L Normal 21.0-32.0 [facility] Comment on above: Performed By: #### C BC #### [facility] [address] [place] [address] Dr. Layla Barrera Creatinine [Mass/Vol] 1.30 mg/dL Normal 0.70-1.30 [facility] Comment on above: Performed By: #### C BC #### [facility] [address] [place] [address] Dr. Layla Barrera EGFR-AF CITIZEN OF [place] >60 Normal >=60 [facility] Comment on above: Performed By: #### C BC #### [facility] [address] [address] [address] Layla Barrera EGFR-NON AF CITIZEN OF [place] 53 mL/min/1.73m2 Critically low >=60 [facility] Comment on above: Performed By: #### C BC #### [facility] [address] [place] [address] Dr. Layla Barrera Globulin (S) [Mass/Vol] 3.3 g/dL Normal [facility] Comment on above: Performed By: #### C BC #### [facility] [address] [place] [address] Dr. Layla Barrera Glucose [Mass/Vol] 137 mg/dL Critically high 74-106 [facility] Comment on above: Performed By: #### C BC #### [facility] [address] [place] [address] Dr. Layla Barrera Potassium [Moles/Vol] 3.7 mmol/L Normal 3.5-5.1 [facility] Comment on above: Performed By: #### C BC #### [facility] [address] [place] [address] Dr. Layla Barrera Protein [Mass/Vol] 7.0 g/dL Normal 6.4-8.2 [facility] Comment on above: Performed By: #### C BC #### [facility] [address] [place] [address] Dr. Layla Barrera Sodium [Moles/Vol] 137 mmol/L Normal 136-145 [facility] Comment on above: Performed By: #### C BC #### [facility] [address] [place], [place] [address] Dr. Layla Barrera Urea nitrogen [Mass/Vol] 20.0 mg/dL Critically high 7.0-18.0 [facility] Comment on above: Performed By: #### C BC #### [facility] [address] [address] [address] Layla Barrera Urea nitrogen/Creatinin e [Mass ratio] 15.4 mg/mg Normal [facility] Comment on above: Performed By: #### C BC #### [facility] [address] [address] [address] Layla Barrera URIC ACID SERUMon 03-11-2022 Urate [Mass/Vol] 8.3 mg/dL Critically high 3.5-7.2 [facility] Comment on above: Performed By: #### G IPANEL #### [facility] [address] [address] [address] Layla Barrera Office Visit (Cardiology)on 12-28-2021 [...] Patient Instructions By signing my name below, IKrista LPN.,Scribe, attest that this documentation has been [...] 09:51AM Hea (more content not included)... Normal [place], [place] [employer] Tobacco Screening.on 022 Fall risk assessment a) No falls within the last year [facility] 250 DO Work Phone: Tobacco use status [facility] b) No [facility] 250 DO Work Phone: [facility] CARDIAC STRESS/REST INJE Emma 12-21-2021 [facility] CARDIAC STRESS/REST INJECTION Patient Name: TRAVIS COBURN STUDY: MYOCARDIAL PERFUSION STRESS TEST WITH LEXISCAN Performing facility: [facility] Provider: Azalea Deras MD, [facility] PCP: Dr. Navarrete Supervising provider: Wade Ramos DO, [facility] INDICATION: CAD; Dyspnea HISTORY: Gender: M; Age: 81 y/o ; Height: 0 cm; Weight: 232.2757089 kg. CAD; High Cholesterol; HTN; SOB; Fatigue; Quit smoking 30 years ago. Cardiac catheterization on 2005. COMPARISON: Previous nuclear testing completed [id number] at [facility]. ACCESSION NUMBER(S): [id number]; [id number]; [id number] ORDERING CLINICIAN: JOHNNIE DERAS TECHNIQUE: TWO DAY [...] Electronically signed by: ABDOUL TIMMONS MD Normal [facility] No Panel Informationon 12-21 Normal [facility] 250 DO Work Phone: Office [...] All medical record entries made by the Scribe were at my direction and personally dictated [...] DAILY. Allergies (more content not included)... Normal [place] Tobacco Screening.on Adult depression screening assessment No [facility] 250 DO Work Phone: Fall risk assessment a) No falls within the last year [facility] 250 DO Work Phone: Tobacco use status [facility] b) No [facility] [employer] 250 DO Work Phone: [employer] PROTEINon 022 CRP [Mass/Vol] 3.3 mg/L Normal 0.0-7.0 [facility] Comment on above: Performed By: #### 6 1405 #### [facility] [address] [facility] [place] [address], [facility] CBC AUTO DIFFon 11-25-2021 BASO # 0.0 103/ul Normal 0.0-0.1 [facility] Comment on above: Performed By: #### G IPANEL #### [facility] [address] [address] [address] Layla Barrera Basophils/100 WBC (Bld) 0.5 % Normal 0.2-2.0 [facility] Comment on above: Performed By: #### G IPANEL #### [facility] [address] [place] [address] Dr. Layla Barrera EO # 0.2 103/ul Normal 0.0-0.7 [facility] Comment on above: Performed By: #### G IPANEL #### [facility] [address] [place] [address] Dr. Layla Barrera Eosinophils/100 WBC (Bld) 3.0 % Normal 0.9-7.0 [facility] Comment on above: Performed By: #### G IPANEL #### [facility] [address] [place] [address] Dr. Layla Barrera Erythrocyte distribution width (RBC) [Ratio] 13.7 % Normal 11.0-15.0 [facility] Comment on above: Performed By: #### G IPANEL #### [facility] [address] [place] [address] Dr. Layla Barrera Hematocrit (Bld) [Volume fraction] 40.0 % Critically low 42.0-54.0 [facility] Comment on above: Performed By: #### G IPANEL #### [facility] [address] [place] [address] Dr. Layla Barrera Hemoglobin (Bld) [Mass/Vol] 13.4 g/dL Critically low 14.0-18.0 [facility] Comment on above: Performed By: #### G IPANEL #### [facility] [address] [place] [address] Dr. Layla Barrera IG # 0.02 10e3/ul Normal 0.00-0.03 [facility] Comment on above: Performed By: #### G IPANEL #### [facility] [address] [place] [address] Dr. Layla Barrera IG % 0.3 % Normal 0.0-0.5 [facility] Comment on above: Performed By: #### G IPANEL #### [facility] [address] [place] [address] Dr. Layla Barrera LYMPH # 2.4 103/ul Normal 1.2-3.8 [facility] Comment on above: Performed By: #### G IPANEL #### [facility] [address] [place] [address] Dr. Layla Barrera Lymphocytes/100 WBC (Bld) 39.6 % Normal 20.5-60.0 [facility] Comment on above: Performed By: #### G IPANEL #### [facility] [address] [place] [address] Dr. Layla Barrera MANUAL DIFF REQ NO Normal [facility] Comment on above: Performed By: #### G IPANEL #### [facility] [address] [address] [address] Layla Barrera MCH (RBC) [Entitic mass] 31.3 pg Normal 25.9-34.0 [facility] Comment on above: Performed By: #### G IPANEL #### [facility] [address] [place] [address] Dr. Layla Barrera MCHC (RBC) [Mass/Vol] 33.5 g/dL Normal 29.9-35.2 [facility] Comment on above: Performed By: #### G IPANEL #### [facility] [address] [place] [address] Dr. Layla Barrera MCV (RBC) [Entitic vol] 93.5 fL Normal 80.0-94.0 [facility] Comment on above: Performed By: #### G IPANEL #### [facility] [address] [place] [address] Dr. Layla Barrera MONO # 0.6 103/ul Normal 0.3-0.8 [facility] Comment on above: Performed By: #### G IPANEL #### [facility] [address] [place] [address] Dr. Layla Barrera Monocytes/100 WBC (Bld) 9.3 % Normal 1.7-12.0 [facility] Comment on above: Performed By: #### G IPANEL #### [facility] [address] [place] [address] Dr. Layla Barrera NEUT # 2.8 103/ul Normal 1.4-6.5 [facility] Comment on above: Performed By: #### G IPANEL #### [facility] [address] [address] [address] Layla Barrera Neutrophils/100 WBC (Bld) 47.3 % Normal 43.0-75.0 [facility] Comment on above: Performed By: #### G IPANEL #### [facility] [address] [address] [address] Layla Barrera Platelet mean volume (Bld) [Entitic vol] 10.4 fL Normal 9.5-13.5 [facility] Comment on above: Performed By: #### G IPANEL #### [facility] [address] [address] [address] Layla Barrera PLT 184 103/ul Normal 150-450 [facility] Comment on above: Performed By: #### G IPANEL #### [facility] [address] [address] [address] Layla Barrera RBC 4.28 106/ul Critically low 4.70-6.10 [facility] Comment on above: Performed By: #### G IPANEL #### [facility] [address] [address] [address] Layla Barrera WBC 5.9 103/ul Normal 4.0-11.0 [facility] Comment on above: Performed By: #### G IPANEL #### [facility] [address] [place] [address] Dr. Layla Barrera CBC W/DIFFon 11-25-2021 ABS IMM GRANS 0.0 10*3/uL Normal 0.0-0.2 [facility] Comment on above: Performed By: #### 5 6506, 57831 #### [facility] [address] [place] [address], [facility] ABS NEUTROPHILS 3.6 10*3/uL Normal 1.6-7.6 [facility] Comment on above: Performed By: #### 5 6506, 08876 #### [facility] [address] [place] [address], [facility] Basophils (Bld) [#/Vol] 0.0 10*3/uL Normal 0.0-0.2 [facility] Comment on above: Performed By: #### 5 6505, 61534 #### [facility] [address] [place] [address], [facility] Basophils/100 WBC (Bld) 0.4 % Normal 0.0-1.0 [facility] Comment on above: Performed By: #### 5 6505, 56278 #### [facility] [address] [place] [address], [facility] Eosinophils (Bld) [#/Vol] 0.2 10*3/uL Normal 0.0-0.5 [facility] Comment on above: Performed By: #### 5 6505, 07174 #### [facility] [address] [place] [address], [facility] Eosinophils/100 WBC (Bld) 2.2 % Normal 0.0-6.0 [facility] Comment on above: Performed By: #### 5 6505, 14237 #### [facility] [address] [facility] Erythrocyte distribution width (RBC) [Ratio] 13.6 % Normal 11.5-15.0 [facility] Comment on above: Performed By: #### 5 6505, 29439 #### [facility] [address] [place] [address], [facility] Hematocrit (Bld) [Volume fraction] 40.4 % Normal 39.0-50.0 [facility] Comment on above: Performed By: #### 5 6505, 24883 #### [facility] [address] [place] [address], [facility] Hemoglobin (Bld) [Mass/Vol] 13.7 g/dL Normal 13.0-17.0 [facility] Comment on above: Performed By: #### 5 6505, 64465 #### [facility] [address] [place] [address], [facility] IMMATURE GRANS 0.3 % Normal 0.0-1.0 [facility] Comment on above: Performed By: #### 5 6505, 65055 #### [facility] [address] [facility] [place] [address], [facility] Lymphocytes (Bld) [#/Vol] 2.4 10*3/uL Normal 1.2-4.0 [facility] Comment on above: Performed By: #### 5 6505, 76373 #### [facility] [address] [place] [address], [facility] Lymphocytes/100 WBC (Bld) 35.0 % Normal 20.0-45.0 [facility] Comment on above: Performed By: #### 5 6505, 32433 #### [facility] [address] MCH (RBC) [Entitic mass] 31.8 pg Normal 27.0-33.0 [facility] Comment on above: Performed By: #### 5 6505, 73785 #### [facility] [address] MCHC (RBC) [Mass/Vol] 33.9 g/dL Normal 32.0-35.0 [facility] Comment on above: Performed By: #### 5 6505, 11731 #### [facility] [address] [facility] [place] [address], [facility] MCV (RBC) [Entitic vol] 93.7 fL Normal 82.0-98.0 [facility] Comment on above: Performed By: #### 5 6505, 84534 #### [facility] [address] [place] [address], [facility] Monocytes (Bld) [#/Vol] 0.6 10*3/uL Normal 0.1-1.0 [facility] Comment on above: Performed By: #### 5 6505, 16565 #### [facility] [address] [place] [address], [facility] MONOS 8.4 % Normal 5.0-12.0 [facility] Comment on above: Performed By: #### 5 6505, 42800 #### [facility] [address] [place] [address], [facility] Neutrophils/100 WBC (Bld) 53.7 % Normal 40.0-72.0 [facility] Comment on above: Performed By: #### 5 6505, 57400 #### [facility] [address] [facility] [place] [address], [facility] Nucleated RBC/100 WBC (Bld) [Ratio] 0 % Normal 0-0 [facility] Comment on above: Performed By: #### 5 6505, 82421 #### [facility] [address] [facility] [place] [address], [facility] PLAT CNT 198 10*3/uL Normal 150-400 [facility] Comment on above: Performed By: #### 5 6505, 48768 #### [facility] [address] [facility] [place] [address], [facility] RBC (Bld) [#/Vol] 4.31 10*6/uL Normal 4.20-5.70 [facility] Comment on above: Performed By: #### 5 6505, 96934 #### [facility] [address] [facility] [place] [id number], [facility] WBC (Bld) [#/Vol] 6.75 10*3/uL Normal 4.00-10.60 [facility] Comment on above: Performed By: #### 5 6505, 81719 #### [facility] [address] [facility] [place] [id number], [facility] COMP METABOLIC PANELon 11-25 Albumin [Mass/Vol] 4.1 g/dL Normal 3.5-5.7 [facility] Comment on above: Performed By: #### 0 0121 #### [facility] [address] [place] [address], [place] ALKALINE PHOSPH 87 IU/L Normal 34-104 [facility] Comment on above: Performed By: #### 0 0121 #### [facility] [address] [place] [address], [place] ALT [Catalytic activity/Vol] 47 U/L Normal 7-52 [facility] Comment on above: Performed By: #### 0 0121 #### [facility] [address] [place] [address], [place] AST [Catalytic activity/Vol] 29 U/L Normal 13-39 [facility] Comment on above: Performed By: #### 0 0121 #### [facility] [address] [place] [address], [place] Bilirubin [Mass/Vol] 0.7 mg/dL Normal 0.3-1.0 [facility] Comment on above: Performed By: #### 0 0121 #### [facility] [address] [place] [address], [place] Calcium [Mass/Vol] 9.7 mg/dL Normal 8.6-10.3 [facility] Comment on above: Performed By: #### 0 0121 #### [facility] [address] [place] [address], [place] Chloride [Moles/Vol] 103 mmol/L Normal 98-107 [facility] Comment on above: Performed By: #### 0 0121 #### [facility] [address] [place] [address], [place] CO2 [Moles/Vol] 30 mmol/L Normal 21-31 [facility] Comment on above: Performed By: #### 0 0121 #### [facility] [address] [place] [address], [place] Creatinine [Mass/Vol] 1.06 mg/dL Normal 0.70-1.30 [facility] Comment on above: Performed By: #### 0 0121 #### [facility] [address] [place] [address], [place] GFR/1.73 sq M.predicted among blacks MDRD (S/P/Bld) [Vol rate/Area] mL/min/{1.73_m2} Normal >60 [facility] Comment on above: Result Comment: Calc ulation may not be valid for patients over 70 years Performed By: #### 0 0121 #### [facility] [address] [place] [address], [place] GFR/1.73 sq M.predicted among non-blacks MDRD (S/P/Bld) [Vol rate/Area] mL/min/{1.73_m2} Normal >60 [facility] Comment on above: Result Comment: Calc ulation may not be valid for patients over 70 years Performed By: #### 0 0121 #### [facility] [address] [place] [address], [place] Glucose [Mass/Vol] 94 mg/dL Normal 70-100 [facility] Comment on above: Performed By: #### 0 0121 #### [facility] [address] [place] [address], [place] Potassium [Moles/Vol] 4.7 mmol/L Normal 3.5-5.1 [facility] Comment on above: Performed By: #### 0 0121 #### [facility] [address] [place] [address], [place] Protein [Mass/Vol] 6.6 g/dL Normal 6.0-8.3 [facility] Comment on above: Performed By: #### 0 0121 #### [facility] [address] [place] [address], [place] Sodium [Moles/Vol] 138 mmol/L Normal 136-145 [facility] Comment on above: Performed By: #### 0 0121 #### [facility] [address] [place] [address], [facility] Urea nitrogen [Mass/Vol] 17 mg/dL Normal 7-25 [facility] Comment on above: Performed By: #### 0 0121 #### [facility] [address] [place] [address], [facility] FREE THYROXINE INDEX T7on FTI 2.38 Normal 1.30-4.50 [facility] Comment on above: Performed By: #### T SH, CMP, T7, MG #### [facility] [address] [address] [address] Layla Barrera T3U 34.0 % Normal 33.0-40.0 [facility] Comment on above: Performed By: #### T SH, CMP, T7, MG #### [facility] [address] [place] [address] Dr. Layla Barrera T4 [Mass/Vol] 7.00 ug/dL Normal 4.50-12.10 [facility] Comment on above: Performed By: #### T SH, CMP, T7, MG #### [facility] [address] [place] [address] Dr. Layla Barrera MAGNESIUMon 11-25-2021 Magnesium [Mass/Vol] 1.7 mg/dL Critically low 1.8-2.4 [facility] Comment on above: Performed By: #### T SH, CMP, T7, MG #### [facility] [address] [place] [address] Dr. Layla Barrera PROF 14(COMP METB)on 022 Albumin [Mass/Vol] 3.5 g/dL Normal 3.4-5.0 [facility] Comment on above: Performed By: #### T SH, CMP, T7, MG #### [facility] [address] [place] [address] Dr. Layla Barrera Albumin/Globulin [Mass ratio] 1.1 {ratio} Normal [facility] Comment on above: Performed By: #### T SH, CMP, T7, MG #### [facility] [address] [address] [address] Layla Barrera ALP [Catalytic activity/Vol] 97 U/L Normal 46-116 [facility] Comment on above: Performed By: #### T SH, CMP, T7, MG #### [facility] [address] [address] [address] Layla Barrera ALT [Catalytic activity/Vol] 64 U/L Critically high 16-63 [facility] Comment on above: Performed By: #### T SH, CMP, T7, MG #### [facility] [address] [place] [address] Dr. Layla Barrera Anion gap [Moles/Vol] 11.6 mmol/L Normal [facility] Comment on above: Performed By: #### T SH, CMP, T7, MG #### [facility] [address] [place] [address] Dr. Layla Barrera AST [Catalytic activity/Vol] 27 U/L Normal 15-37 [facility] Comment on above: Performed By: #### T SH, CMP, T7, MG #### [facility] [address] [address] [address] Layla Barrera Bilirubin [Mass/Vol] 0.8 mg/dL Normal 0.2-1.0 [facility] Comment on above: Performed By: #### T SH, CMP, T7, MG #### [facility] [address] [address] [address] Layla Barrera Calcium [Mass/Vol] 9.0 mg/dL Normal 8.5-10.1 [facility] Comment on above: Performed By: #### T SH, CMP, T7, MG #### [facility] [address] [place] [address] Dr. Layla Barrera Chloride [Moles/Vol] 102 mmol/L Normal 98-107 [facility] Comment on above: Performed By: #### T SH, CMP, T7, MG #### [facility] [address] [address] [address] Layla Barrera CO2 [Moles/Vol] 27.3 mmol/L Normal 21.0-32.0 [facility] Comment on above: Performed By: #### T SH, CMP, T7, MG #### [facility] [address] [address] [address] Layla Barrera Creatinine [Mass/Vol] 1.15 mg/dL Normal 0.70-1.30 [facility] Comment on above: Performed By: #### T SH, CMP, T7, MG #### [facility] [address] [address] [address] Layla Barrera EGFR-AF CITIZEN OF [place] >60 Normal >=60 [facility] Comment on above: Performed By: #### T SH, CMP, T7, MG #### [facility] [address] [address] [address] Layla Barrera EGFR-NON AF CITIZEN OF [place] >60 Normal >=60 [facility] Comment on above: Performed By: #### T SH, CMP, T7, MG #### [facility] [address] [address] [address] Layla Barrera Globulin (S) [Mass/Vol] 3.3 g/dL Normal [facility] Comment on above: Performed By: #### T SH, CMP, T7, MG #### [facility] [address] [address] [address] Layla Barrera Glucose [Mass/Vol] 144 mg/dL Critically high 74-106 [facility] Comment on above: Performed By: #### T SH, CMP, T7, MG #### [facility] [address] [address] [address] Layla Barrera Potassium [Moles/Vol] 3.9 mmol/L Normal 3.5-5.1 [facility] Comment on above: Performed By: #### T SH, CMP, T7, MG #### [facility] [address] [place] [address] Dr. Layla Barrera Protein [Mass/Vol] 6.8 g/dL Normal 6.4-8.2 [facility] Comment on above: Performed By: #### T SH, CMP, T7, MG #### [facility] [address] [place] [address] Dr. Layla Barrera Sodium [Moles/Vol] 137 mmol/L Normal 136-145 [facility] Comment on above: Performed By: #### T SH, CMP, T7, MG #### [facility] [address] [place] [address] Dr. Layla Barrera Urea nitrogen [Mass/Vol] 16.0 mg/dL Normal 7.0-18.0 [facility] Comment on above: Performed By: #### T SH, CMP, T7, MG #### [facility] [address] [place] [address] Dr. Layla Barrera Urea nitrogen/Creatinin e [Mass ratio] 13.9 mg/mg Normal [facility] Comment on above: Performed By: #### T SH, CMP, T7, MG #### [facility] [address] [place] [address] Dr. Layla Barrera SEDIMENTATION RATEon 022 SED RATE 10 mm/hr Normal 0-10 [facility] Comment on above: Performed By: #### 5 [id number], [id number] #### [facility] [address] TSHon 11-25-2021 TSH 2.406 uIU/mL Normal 0.358-3.740 [facility] Comment on above: Performed By: #### T SH, CMP, T7, MG #### [facility] [address] [place] [address] Dr. Layla Barrera TSH RANGE SEE BELOW Normal [facility] Comment on above: Result Comment: <0.3 4 UIU/ml HYPERTHYROID 0.34-5.60 UIU/ml EUTHYROID >5.60 UIU/ml HYPOTHYROID Performed By: #### T SH, CMP, T7, MG #### [facility] [address] [place] [address] Dr. Layla Barrera CBC W/DIFFon 05-27-2021 ABS IMM GRANS 0.0 10*3/uL Normal 0.0-0.2 [facility] Comment on above: Performed By: #### 5 0103 #### [facility] [address] [place] [address], [facility] ABS NEUTROPHILS 3.8 10*3/uL Normal 1.6-7.6 [facility] Comment on above: Performed By: #### 5 0103 #### [facility] [address] [place] [address], [facility] Basophils (Bld) [#/Vol] 0.0 10*3/uL Normal 0.0-0.2 [facility] Comment on above: Performed By: #### 5 0103 #### [facility] [address] [place] [address], [facility] Basophils/100 WBC (Bld) 0.6 % Normal 0.0-1.0 [facility] Comment on above: Performed By: #### 5 0103 #### [facility] [address] [place] [address], [facility] Eosinophils (Bld) [#/Vol] 0.2 10*3/uL Normal 0.0-0.5 [facility] Comment on above: Performed By: #### 5 0103 #### [facility] [address] [place] [address], [facility] Eosinophils/100 WBC (Bld) 2.7 % Normal 0.0-6.0 [facility] Comment on above: Performed By: #### 5 0103 #### [facility] [address] [place] [address], [facility] Erythrocyte distribution width (RBC) [Ratio] 13.4 % Normal 11.5-15.0 [facility] Comment on above: Performed By: #### 5 3 #### [facility] [address] [place] [address], [facility] Hematocrit (Bld) [Volume fraction] 41.7 % Normal 39.0-50.0 [facility] Comment on above: Performed By: #### 5 3 #### [facility] [address] [facility]. [address] Hemoglobin (Bld) [Mass/Vol] 14.3 g/dL Normal 13.0-17.0 [facility] Comment on above: Performed By: #### 3 #### [facility] [address] IMMATURE GRANS 0.6 % Normal 0.0-1.0 [facility] Comment on above: Performed By: #### 102 #### [facility] [address] Lymphocytes (Bld) [#/Vol] 2.5 10*3/uL Normal 1.2-4.0 [facility] Comment on above: Performed By: #### 102 #### [facility] [address] Lymphocytes/100 WBC (Bld) 35.0 % Normal 20.0-45.0 [facility] Comment on above: Performed By: #### 102 #### [facility] [address] MCH (RBC) [Entitic mass] 31.6 pg Normal 27.0-33.0 [facility] Comment on above: Performed By: #### 3 #### [facility] [address] MCHC (RBC) [Mass/Vol] 34.3 g/dL Normal 32.0-35.0 [facility] Comment on above: Performed By: #### 102 #### [facility] [address] MCV (RBC) [Entitic vol] 92.3 fL Normal 82.0-98.0 [facility] Comment on above: Performed By: #### 5 0103 #### [facility] [address] [place] [address], [facility] Monocytes (Bld) [#/Vol] 0.5 10*3/uL Normal 0.1-1.0 [facility] Comment on above: Performed By: #### 5 3 #### [facility] [address] [facility] [place] [address], [facility] MONOS 7.4 % Normal 5.0-12.0 [facility] Comment on above: Performed By: #### 102 #### [facility] [address] [facility] [place] [address], [facility] Neutrophils/100 WBC (Bld) 53.7 % Normal 40.0-72.0 [facility] Comment on above: Performed By: #### 102 #### [facility] [address] [facility] [place] [address], [facility] Nucleated RBC/100 WBC (Bld) [Ratio] 0 % Normal 0-0 [facility] Comment on above: Performed By: #### 102 #### [facility] [address] [facility] [place] [address], [facility] PLAT CNT 194 10*3/uL Normal 150-400 [facility] Comment on above: Performed By: #### 102 #### [facility] [address] [facility] [place] [address], [facility] RBC (Bld) [#/Vol] 4.52 10*6/uL Normal 4.20-5.70 [facility] Comment on above: Performed By: #### 3 #### [facility] [address] [facility] [place] [address], [facility] WBC (Bld) [#/Vol] 7.02 10*3/uL Normal 4.00-10.60 [facility] Comment on above: Performed By: #### 3 #### [facility] [address] [place] [address], [facility] LIVER BATTERYon 05-27-2021 Albumin [Mass/Vol] 4.1 g/dL Normal 3.5-5.7 [facility] Comment on above: Performed By: #### 9 9909 #### [facility] [address] [place] [address], [place] ALKALINE PHOSPH 75 IU/L Normal 34-104 [facility] Comment on above: Performed By: #### 9 9909 #### [facility] [address] [place] [address], [place] ALT [Catalytic activity/Vol] 42 U/L Normal 7-52 [facility] Comment on above: Performed By: #### 9 9909 #### [facility] [address] [place] [address], [place] AST [Catalytic activity/Vol] 27 U/L Normal 13-39 [facility] Comment on above: Performed By: #### 9 9909 #### [facility] [address] [place] [address], [place] Bilirubin [Mass/Vol] 0.5 mg/dL Normal 0.3-1.0 [facility] Comment on above: Performed By: #### 9 9909 #### [facility] [address] [place] [address], [place] Bilirubin.direct [Mass/Vol] 0.1 mg/dL Normal 0.0-0.2 [facility] Comment on above: Performed By: #### 9 9909 #### [facility] [address] [place] [address], [place] Protein [Mass/Vol] 6.8 g/dL Normal 6.0-8.3 [facility] Comment on above: Performed By: #### 9 9909 #### [facility] [address] [place] [address], [facility] Social History Date Type Detail Facility Start: 11-27-2023 Caffeine use Caffeine use -[facility] DO Work Phone: Comment on above: Coffee: 1 cup dailyS ac- Occasionally; Quit: 1991; Start: 11-27-2023 Sex Assigned At Male F [facility] Start: 11-27-2023 Tobacco use and exposure Smokeless tobacco non-user [facility] Work Phone: Start: 11-27-2023 Alcoholic beverage intake Lifetime non-drinker (finding) [facility] Work Phone: Start: 11-17-2023 End: 11-27-2023 Exposure to SARS-CoV-2 (event) Not sure [facility] Start: 03-20-2023 End: 11-27-2023 Tobacco smoking status Ex-smoker (finding) [facility] Start: 1940 Sex Assigned At Male F [facility] Start: 1940 Sex assigned at Not on file [facility] Work Phone: Tobacco smoking status Never [facility] History of tobacco use Current smoker [facility] Work Phone: History of tobacco use Cigarette Smoker [facility] Work Phone: Vital Signs Date Time Vital Sign Value Performing Clinician Facility 11-27-2023 10:39-0400 Diastolic blood pressure 80 mm[Hg] Johnnie Deras MD Work Phone: [facility] 11-27-2023 10:39-0400 Systolic blood pressure 130 mm[Hg] Johnnie Deras MD Work Phone: [facility] 11-27-2023 10:11-0400 Body height 175.3 cm Johnnie Deras MD Work Phone: [facility] 11-27-2023 10:11-0400 Body mass index (BMI) [Ratio] 35.12 kg/m2 Johnnie Deras MD Work Phone: [facility] 11-27-2023 10:11-0400 Body weight 107.86 kg Johnnie Deras MD Work Phone: [facility] 11-27-2023 10:11-0400 Heart rate 80 /min Johnnie Deras MD Work Phone: [facility] 07-18-2023 14:14-0500 Blood Pressure Location [facility] [place] 07-18-2023 14:14-0500 Diastolic blood pressure 88 mm[Hg] [facility] [place] 07-18-2023 14:14-0500 Heart rate 92 /min [facility] [place] 07-18-2023 14:14-0500 Respiratory rate 16 /min [facility] [place] 07-18-2023 14:14-0500 Systolic blood pressure 138 mm[Hg] Wade [facility] 03-20-2023 14:45-0400 Diastolic blood pressure 92 mm[Hg] Nguyễn VELA [facility] 03-20-2023 14:45-0400 Mean blood pressure 111 mm[Hg] Nguyễn VELA [facility] 03-20-2023 14:45-0400 Systolic blood pressure 150 mm[Hg] Nguyễn VELA [facility] 03-20-2023 14:29-0400 Blood Pressure Location Nguyễn VELA [facility] 03-20-2023 14:29-0400 Diastolic blood pressure 91 mm[Hg] Nguyễn VELA [facility] 03-20-2023 14:29-0400 Heart rate 86 /min Nguyễn VELA [facility] 03-20-2023 14:29-0400 Systolic blood pressure 158 mm[Hg] Nguyễn VELA [facility] 12-28-2021 10:15-0400 Body height 177.8 cm Mayra M Hoy Work Phone: [facility] DO Work Phone: 12-28-2021 10:15-0400 Body mass index (BMI) [Ratio] 34.15 kg/m2 Mayra M Hoy Work Phone: [facility] DO Work Phone: 12-28-2021 10:15-0400 Body surface area Derived from formula 2.25 m2 Mayra M Hoy Work Phone: [facility] DO Work Phone: 12-28-2021 10:15-0400 Body weight 107.96 kg Mayra M Hoy Work Phone: [facility] DO Work Phone: 12-28-2021 10:15-0400 Diastolic blood pressure 70 mm[Hg] Mayra M Hoy Work Phone: [facility] DO Work Phone: 12-28-2021 10:15-0400 Heart rate 60 /min Mayra M Hoy Work Phone: [facility] DO Work Phone: 12-28-2021 10:15-0400 Systolic blood pressure 138 mm[Hg] Mayra M Hoy Work Phone: [facility] DO Work Phone: 12-28-2021 09:51-0400 Systolic blood pressure 146 mm[Hg] Mayra Jesse Hoy Work Phone: [facility] DO Work Phone: 12-22-2021 08:00-0400 53 1 Mayra M Hoy Work Phone: [facility] DO Work Phone: Comment on above: [id number] 12-08-2021 15:22-0400 Body height 177.8 cm Mayra M Hoy Work Phone: [facility] DO Work Phone: 12-08-2021 15:22-0400 Body mass index (BMI) [Ratio] 34.15 kg/m2 Mayra M Hoy Work Phone: [facility] DO Work Phone: 12-08-2021 15:22-0400 Body surface area Derived from formula 2.25 m2 Mayra M Hoy Work Phone: [facility] DO Work Phone: 12-08-2021 15:22-0400 Body weight 107.96 kg Mayra M Hoy Work Phone: [facility] DO Work Phone: 12-08-2021 15:22-0400 Diastolic blood pressure 70 mm[Hg] Mayra M Hoy Work Phone: [facility] DO Work Phone: 12-08-2021 15:22-0400 Heart rate 87 /min Mayra M Hoy Work Phone: [facility] DO Work Phone: 12-08-2021 15:22-0400 Systolic blood pressure 138 mm[Hg] Mayra M Hoy Work Phone: [facility] DO Work Phone: 12-08-2021 15:12-0400 Systolic blood pressure 140 mm[Hg] Mayra Molina Hoy Work Phone: [facility] DO Work Phone: 12-08-2021 15:08-0400 Diastolic blood pressure 82 mm[Hg] Mayra Molina Hoy Work Phone: [facility] DO Work Phone: 12-08-2021 15:08-0400 Systolic blood pressure 142 mm[Hg] Mayra Molina Hoy Work Phone: [facility] DO Work Phone: Functional Status Date Assessment Result Facility 07-18-2023 Functional Status N/A [facility] 03-20-2023 Functional Status N/A [facility] Clinical Notes 02-23-2023 to 11-27-2023 Johnnie Deras MD - 11/27/2023 10:10 AM EDTPatient Instructions Note Date & Type Note Facility 11-27-2023 History of Present illness Narrative Subjective Travis Coburn is a 83 y.o. male Chief Complaint Annual Exam HPI Patient returns in follow-up of problems as noted. He has done well. I cannot elicit any angina CHF or arrhythmia symptomatology. Recently there was some concern about his kidney function and other providers took away his hydrochlorothiazide. The patient states he feels about the same. Otherwise he is doing well. He has no angina or anginal cloven symptomatology. Control blood pressure and lipids is adequate. He is congratulated on cessation accomplishments. We did advocate the merits of diet and weight loss. Vitals: 11/27/23 1011 11/27/23 1039 BP: 138/90 130/80 BP Location: Right arm Right arm Patient Position: Sitting Sitting Pulse: 80 Weight: 108 kg (237 lb 12.8 oz) Height: 1.753 m (5' 9 ) Objective Physical Exam Constitutional: Appearance: Normal appearance. HENT: Nose: Nose normal. Neck: Vascular: No carotid bruit. Cardiovascular: Rate and Rhythm: Normal rate. Pulses: Normal pulses. Heart sounds: Normal heart sounds. Pulmonary: Effort: Pulmonary effort is normal. Abdominal: General: Bowel sounds are normal. Palpations: Abdomen is soft. Musculoskeletal: General: Normal range of motion. Cervical back: Normal range of motion. Right lower leg: No edema. Left lower leg: No edema. Skin: General: Skin is warm and dry. Neurological: General: No focal deficit present. Mental Status: He is alert. Psychiatric: Mood and Affect: Mood normal. Behavior: Behavior normal. Thought Content: Thought content normal. Judgment: Judgment normal. Allergies Penicillins, Bee pollen, and Cat dander Current Medications Current Outpatient Medications: amitriptyline (Elavil) 25 mg tablet, Take 1 tablet (25 mg) by mouth once daily at bedtime., Disp: , Rfl: aspirin 81 mg chewable tablet, Chew 1 tablet (81 mg) 2 times a week., Disp: , Rfl: calcium carbonate-vitamin D3 600 mg-10 mcg (400 unit) capsule, Take 1 capsule by mouth once daily., Disp: , Rfl: carvedilol (Coreg) 6.25 mg tablet, Take 1 tablet (6.25 mg) by mouth 2 times daily (morning and late afternoon)., Disp: , Rfl: cyanocobalamin (Vitamin B-12) 1,000 mcg tablet, Take 1 tablet (1,000 mcg) by mouth once daily., Disp: , Rfl: folic acid (Folvite) 1 mg tablet, Take 1 tablet (1 mg) by mouth once daily., Disp: , Rfl: irbesartan (Avapro) 300 mg tablet, Take 1 tablet (300 mg) by mouth once daily at bedtime., Disp: , Rfl: 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 (Trexall) 2.5 mg tablet, Take 4 tablets (10 mg total) by mouth 1 (one) time per week., Disp: , Rfl: pantoprazole (ProtoNix) 40 mg EC tablet, Take 1 tablet (40 mg) by mouth once daily in the morning. Take before meals., Disp: , Rfl: predniSONE (Deltasone) 2.5 mg tablet, Take 1 tablet (2.5 mg) by mouth 2 times a day. 2 tabs in the AM & 1 at HS., Disp: , Rfl: rosuvastatin (Crestor) 5 mg tablet, Take 1 tablet (5 mg) by mouth 2 times a week., Disp: , Rfl: Assessment/Plan 1. 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 No recurrence of symptoms such as those that preceded his original diagnosis. 2. Benign essential hypertension Review of treatment strategy demonstrates good control 3. Mixed hyperlipidemia Review of treatment strategy demonstrates good control 4. Former cigarette smoker Congratulated on cessation Scribe Attestation By signing my name below, I, Ban Blackman LPN, Javieribrg attest that this documentation has been prepared under the direction and in the presence of Johnnie Deras MD. Provider Attestation - Scribe documentation All medical record entries made by the Scribe were at my direction and personally dictated by me. I have reviewed the chart and agree that the record accurately reflects my personal performance of the history, physical exam, discussion and plan. documented in this encounter [facility] Work Phone: 11-27-2023 Instructions Ban Lisa LPN - 11/27/2023 10:10 AM EDT Please bring all medicines, vitamins, and herbal supplements with you when you come to the office. Prescriptions will not be filled unless you are compliant with your follow up appointments or have a follow up appointment scheduled as per instruction of your physician. Refills should be requested at the time of your visit. BMI was above normal measurement. Current weight: 108 kg (237 lb 12.8 oz) Weight change since last visit (-) denotes wt loss -9.2 lbs Weight loss needed to achieve BMI 25: 68.9 Lbs Weight loss needed to achieve BMI 30: 35.1 Lbs Provided instructions on dietary changes Provided instructions on exercise. documented in this encounter [facility] Work Phone: 10-11-2023 Note Attestation signed by Too Thompson MD at 10/12/2023 11:42 PM I saw, interviewed, examined and evaluated the patient with Nephrology fellow Dr. Faith Matias. I participated in the medical management of the patient. I reviewed the fellow's note and agree with the fellow's documentation in the note. Too Thompson MD Faculty, Division of Nephrology, Department of Medicine, [facility]. [facility] Patient: Travis Coburn; 82 y.o. Visit date: 10/11/23 Reason for today's visit: Follow up for CKD stage 3 and Hypertension SUBJECTIVE: BACKGROUND: Travis Coburn is a 82 y.o. male has a past medical history of Diabetes mellitus ([facility]), Hypertension, Polymyalgia rheumatica ([facility]), and Psoriatic arthritis ([facility]). Patient has history of Type II diabetes [...] No family history of kidney disease Today 10/11/23 patient presents for a follow-up visit: Patient feels fine, no major concerns. He has mild dyspnea on exertion but no leg swelling or weight gain. Remains on Irbesartan 300 mg daily, off hydrochlorothiazide and off lasix He is on prednisone 5 mg once daily and 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 10 mg once weekly by his lamp wirer for polymyalgia rheumatica Blood pressure & heart rate: Visit Vitals BP 134/85 (BP Location: Left arm, Patient Position: Sitting, BP Cuff Size: Large adult) Pulse 77 Resp 16 BP at home runs in the 140s/80s but he does not check it properly (does not rest for several minutes prior to measuring). Was started on Coreg 6.25 mg BID by primary care doctor, remains on Irbesartan 300 mg daily He sometimes feels lightheaded when he stands up and a little wobbly Pertinent labs/images: See Assessment & Plan -- Review of systems In addition to above: Review of Systems Constitutional: Negative for appetite change, fatigue and unexpected weight change. HENT: Negative for congestion and facial swelling. Respiratory: Negative for cough and shortness of breath. Cardiovascular: Negative for chest pain, palpitations and leg swelling. Gastrointestinal: Negative for abdominal distention, abdominal pain, constipation, diarrhea, rectal pain and vomiting. Endocrine: Negative for polydipsia and polyuria. Genitourinary: Negative for decreased urine volume, difficulty urinating, dysuria, flank pain, frequency, hematuria, scrotal swelling and urgency. Musculoskeletal: Negative for arthralgias and joint swelling. Skin: Negative for color change, rash and wound. Allergic/Immunologic: Negative for immunocompromised state. Neurological: Negative for dizziness, syncope and headaches. Psychiatric/Behavioral: Negative for sleep disturbance. The patient is not nervous/anxious. OBJECTIVE: Visit Vitals BP 134/85 (BP Location: Left arm, Patient Position: Sitting, BP Cuff Size: Large adult) Pulse 77 Resp 16 Ht 1.753 m (5' 9 ) Wt 109 kg (240 lb 9.6 oz) BMI 35.53 kg/m??? Smoking Status Former BSA 2.3 m??? [...] CVA tenderness or left CVA tenderness. Musculoskeletal: Right lower leg: No edema. Left lower leg: No edema. Skin: Coloration: Skin is not jaundiced or pale. Findings: No lesion. Neurological: General: No focal deficit present. Mental Status: He is alert and oriented to person, place, and time. Psychiatric: Mood and Affect: Mood normal. Recent Labs I have reviewed the patient's most recent labs as listed below: Chemistry: Lab Results Com (more content not included)... [facility] 08-17-2023 Note Attestation signed by Luis Daniel [...] eyes as of lately. He notes some [id number] blurriness to his vision that comes and goes. He states this started prior to even last seeing his certified physician assistant. He notes he last saw his certified physician assistant about 5-6 months ago and all was [...] by Gumaro Butler MS4 and Dr. Brunner [facility] 08-16-2023 Note Attestation signed by Too Thompson MD at 08/19/2023 9:50 PM I saw, interviewed, examined and evaluated the patient with Nephrology fellow Dr. Faith Matias. I participated in the medical management of the patient. I reviewed the fellow's note and agree with the fellow's documentation in the note. Too Thompson MD Faculty, Division of Nephrology, Department of Medicine, [facility]. [facility] Patient: Travis Coburn; 82 y.o. Visit date: 08/16/23 Reason for today's visit: New patient, new Acute kidney injury SUBJECTIVE: BACKGROUND: Travis Coburn is a 82 y.o. male has a past medical history of Diabetes mellitus ([facility]), Hypertension, Polymyalgia rheumatica ([facility]), and Psoriatic arthritis ([facility]). Patient has history of Type II diabetes [...] oriented to pe (more content not included)... [facility] 07-18-2023 Note Chief Complaint consultation for skin [...] smoker, quit more (more content not included)... [facility] Comment on above: Result Comment: Elec tronically Signed By: MAXX TURNER, Wade Ko.chavez\Date and Time Signed: 07/18/23 14:37 EST 06-09-2023 Note TC to patient notifi ed of nephrology referral has been sent. NS [facility] 06-09-2023 Note Pt called needing a referral for nephrology. Pt states he would like to set up an appointment in [place], discussed in telephone call with you. [facility] 03-20-2023 Hospital Discharge instructions Patient Education 03/20/2023 [...] urethra. Follow these instructions at home: Take kgza-pja-miyctyy and prescription medicines only as told by [...] provider. Document Revised: 01/12/2022 Document Reviewed: 01/12/2022 [employer] Patient Education 2022 [employer] Mobile. Follow Up Care 08/23/2021 11:50:10 With:MIRIAN TURNER, Nguyễn Peter, URL Address: [facility] [address], [place] [phone] When:Within 6 Month(s) [facility] 02-23-2023 Note Attestation signed by Luis Daniel [...] Follow-up in 3 months Keerthi Razo, MS4 [facility] Evaluation + Plan note Future Appointments Appointment Date:09/18/2023 12:45:00 PM Scheduled Provider:Nguyễn VELA MD [facility] Appointment Type:URO Office Visit [facility] Evaluation + Plan note Future Appointments Appointment Date:08/22/2023 01:40:00 PM Scheduled Provider:Wade LILLY MD Location: [facility] Appointment Type: Procedure 30 Appointment Date:09/18/2023 12:45:00 PM Scheduled Provider:Nguyễn VELA MD Location[facility] Appointment Type:URO Office Visit [facility] [place] Evaluation + Plan note Future Appointments Appointment Date:09/01/2023 01:40:00 PM Scheduled Provider:Wade LILLY MD Location: [facility] Appointment Type: Established 15 Appointment Date:09/18/2023 12:45:00 PM Scheduled Provider:Nguyễn VELA MD Location:[facility] [place] Appointment Type:URO Office Visit [facility] [place] Evaluation + Plan note Future Appointments Appointment Date:09/13/2023 03:00:00 PM Scheduled Provider:Wade LILLY MD Location: [facility] Appointment Type: Established 15 Appointment Date:09/18/2023 12:45:00 PM Scheduled Provider:Nguyễn VELA MD Location:[facility] Appointment Type:URO Office Visit [facility] [place] Evaluation + Plan note Future Appointments Appointment Date:11/27/2023 11:30:00 AM Scheduled Provider:Nguyễn VELA MD Location:[facility] Appointment Type:URO Office Visit [facility] [place] Evaluation note No assessment inform ation available [facility] Work Phone: Evaluation note Diagnosis 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- Primary Benign essential hypertension Essential hypertension, benign Mixed hyperlipidemia Former cigarette smoker Personal history of tobacco use, presenting hazards to health documented in this encounter [facility] Work Phone: History of Present illness Narrative* She returns prematurely at the suggestion of [...] recommended stress testing. He does not believe hecan perform a treadmill test and because of this we will do a pharmacologic stress test with isotope imaging * We also discussed his breathing situation. I pointed out to him that he does have sleep apnea whichcould contribute to his shortness of breath as well as his complaints of daytime fatigue he does acknowledge this although he states he was recently in receipt of a new set up for his sleep apnea andbecause of this he is reluctant to believe that he requires adjustment in equipment or settings. Osei touched on the merits of diet exercise and weight loss and he understands her recommendations. * He will follow-up in the near future when stress testing is done. He also apparently had a Holter monitor last week and we are not in receipt of that and this too will be reviewed at his next visit. -[facility] [address] DO Work Phone: History of Present illness Narrative* She returns prematurely at the suggestion of [...] recommended stress testing. He does not believe hecan perform a treadmill test and because of this we will do a pharmacologic stress test with isotope imaging * We also discussed his breathing situation. I pointed out to him that he does have sleep apnea whichcould contribute to his shortness of breath as well as his complaints of daytime fatigue he does acknowledge this although he states he was recently in receipt of a new set up for his sleep apnea andbecause of this he is reluctant to believe that he requires adjustment in equipment or settings. Osei touched on the merits of diet exercise and weight loss and he understands her recommendations. * He will follow-up in the near future when stress testing is done. He also apparently had a Holter monitor last week and we are not in receipt of that and this too will be reviewed at his next visit. [facility] [employer] DO Work Phone: History of Present illness NarrativeCoronaryPatient returns for follow-up of problems as noted. He is done well. He denies any of the symptoms or disease that he had in the past. Management of cardiac risk factors including his hypertension and hyperlipidemia is reviewed and control appears to be adequate. He was congratulated on hiscontinued abstinence from tobacco. We did advocate the merits of diet exercise and weight loss to fa vorably improve his body mass index and also because it would improve not only his blood pressure were probably his lipid profile and he understands the recommendation and will attempt to implement our recommendations.[facility] 250 DO Work Phone: Hospital course Narrative No data available for this section [facility] Hospital Discharge instructions No data available for this section [facility] [place] Progress note No data available for this section [facility] reason for referral (narrative)* Consultation (Routine) - Authorized Specialty Diagnoses / Procedures Referred By Aimee t Referred To Contact Cardiology Diagnoses 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 Procedures Follow Up In Cardiology Johnnie Deras MD [address] [facility] [address], [address] [address] Johnnie Deras MD [address] [address] Referral ID Status Reason Start Date Expiration Date V isits Requested Visits Authorized [id number] Authorized 11/27/2023 11/26/2024 1 1 [facility] Work Phone: Summary Purpose Family History No Family History [...] section and content) DATE CREATED AUTHOR 11/30/2021 [facility] DATE CREATED AUTHOR AUTHOR'S ORGANIZ ATION 12/31/2021 [facility] DATE CREATED AUTHOR AUTHOR'S ORGANIZ ATION 01/01/2022 [facility] DATE CREATED AUTHOR AUTHOR'S ORGANIZ ATION 10/29/2022 [facility] DATE CREATED AUTHOR AUTHOR'S ORGANIZ ATION 10/30/2022 [facility] pital DATE CREATED AUTHOR AUTHOR'S ORGANIZ ATION 04/12/2023 [facility] DATE CREATED AUTHOR AUTHOR'S ORGANIZ ATION 04/14/2023 [facility] Center DATE CREATED AUTHOR AUTHOR'S ORGANIZ ATION 08/25/2023 [facility] DATE CREATED AUTHOR AUTHOR'S ORGANIZ ATION 11/14/2023 [facility] Center DATE CREATED AUTHOR AUTHOR'S ORGANIZ ATION 11/29/2023 [facility] DATE CREATED AUTHOR AUTHOR'S ORGANIZ ATION 11/30/2023 [facility] DATE CREATED AUTHOR AUTHOR'S ORGANIZ ATION 12/29/2023 [facility] EPIC Reason for Visit (unrecogniz ed section and content) Reason Comments Annual Exam 1yr Patient Care team informatio n (unrecognized section and content) Team Status: Active Member Role Status Dates Mayra Navarrete MD Primary Care Provider Active Team Status: Inactive Member Role Status Dates Mayra Navarrete MD Primary Care Provider Active Start: August 22, 2023 End: August 22, [address] [facility] Attending Provider Active Start: August 22, 2023 End: August 22, 2023 Hydrogen Cell Tender Relationship Specialty Start Date End Date Mayra Navarrete MD [address] [place] [address] PCP - General 12/08/21 Goals (unrecognized section and content) Goals may [...] BE BASED ON THE PRIMARY CLINICAL RECORDS. [facility]. provides no warranty or guarantee of the accuracy or completeness of information in this document.
--- NOTE | 2024-01-09 12:01 | MR_ITS ---
The [address] [address] Patient Name: JUILO OLIVAREZ MRN: [id number] date: 1940 Sex: M Assigned Patient Location: LAB Current Patient Location: Accession/Order Number: [id number] Exam Date: 01/09/2024 12:29 Report Date: 01/11/2024 23:38 At the request of: MEGAN QUIÑONEZ Procedure: MR head/brain wo/w con EXAM: MR head/brain wo/w con HISTORY: Asymmetric sensorineural hearing loss, H90.3 COMPARISON: None. TECHNIQUE: Multisequence MRI brain was performed with and without intravenous contrast. FINDINGS: There is no restricted diffusion to suggest acute infarct. There is no midline shift, mass effect, or abnormal extraaxial fluid collections. There is a 1.7 x 1 x 1 cm ( TR x AP x CC) T1 and T2 isointense well-defined mass within the right internal auditory canal which is slightly enlarged, extending to the cerebellopontine angle cistern and demonstrates avid homogeneous enhancement. There is no evidence of hemorrhage or cysts within the mass. There is no mass effect upon the brainstem. The cortical sulci and ventricular system are within normal limits for the age. Multiple nonspecific scattered foci of T2/FLAIR signal abnormality are identified in the coty and supratentorial white matter, likely reflect chronic microvascular ischemic changes. The major intracranial flow voids are visualized. The cerebellar tonsils are normal in position. The orbits demonstrate no suspicious enhancement or any focal lesions. The paranasal sinuses show no air-fluid level. The mastoid air cells are clear. The calvarium and extracranial soft tissues are unremarkable. MR/MR head/brain wo/w con IMPRESSION: No acute intracranial abnormality. 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 Mild chronic microvascular ischemia and involutional changes. Electronically authenticated by: KALPESH LYLE Date: 01/11/2024 23:38
[2024-01-09 12:10] LABS: Estimated GFR (African America >60 (>=60); Estimated GFR (Non-African Ame 54 (>=60)
== END 2024-01-09 11:47 | disposition home or self-care (01) ==
LOC: LAB 11:47
PROVIDERS: PCP Family Medicine; Visit Provider Otolaryngology
DX: H90.3 Sensorineural hearing loss, bilateral (principal); D36.10 Benign neoplasm of peripheral nerves and autonomic nervous system, unspecified
CPT/HCPCS: 36415; 70553; 82565; A9575

== ENCOUNTER 2024-06-14 10:12 | Outpatient (OUT) | payer MEDICARE, OTHER, SELFPAY ==
--- NOTE | 2024-06-14 10:13 | VEIN_ITS ---
Patient Name: JULIO OLIVAREZ MR#: [id number] : 1940 Exam Date: 06/14/2024 Ordering Doctor: DR Roman Dvaid . RADIOLOGY REPORT PROCEDURE: VC EXT VENOUS REFLUX SANDY LMTD COMPARISON: None. INDICATIONS: R60.0 Edema TECHNIQUE: Duplex imaging of the lower extremity to assess the deep and superficial venous system for the presence of deep or superficial venous incompetence and to document the location and severity of disease. The study includes evaluation of the great saphenous vein (GSV), anterior accessory saphenous vein (AASV) and small saphenous vein (SSV). Patient scanned in reverse Trendelenburg and standing. FINDINGS: RIGHT LOWER EXTREMITY: Saphenofemoral Junction Reflux: Yes 9.9mm 2.1 sec GSV: Diam (mm) Reflux/ Time (sec) Proximal Thigh 10.3 Yes 1.7 Mid Thigh 6.2 Yes 0.5 Distal Thigh 6.6 Yes 0.6 Prox Calf 4.1 Yes 0.5 Mid Calf 2.9 Yes 0.9 Saphenopopliteal Junction Reflux: 4.0mm Yes 0.4 SSV: Proximal Calf 3.9 Yes 0.8 Mid Calf 2.6 No AASV: Proximal Thigh 5.5 Yes 0.9 Mid Thigh 2.2 No Distal Thigh Thrombi: No acute or chronic thrombus. Compressibility: Normal. Flow: Moderate deep venous reflux. Preforator: Mid medial lower leg measures 3.1 mm with 3.2s reflux. Tech Note: Atherosclerosis noted in arteries of right leg. Incompetent varicose vein mid medial calf measures 4.0 mm with 1.1s reflux. LEFT LOWER EXTREMITY: Saphenofemoral Junction Reflux: Yes 9.1 mm 4.1 sec GSV: Diam (mm) Reflux/Time (sec) Proximal Thigh 8.9 Yes 0.8 Mid Thigh 6.3 Yes 0.6 Distal Thigh 6.4 Yes 2.9 Prox Calf 4.8 Yes 2.5 Mid Calf 4.2 Yes 4.5 Saphenopopliteal Junction Relux: 5.7 mm Yes 1.0 SSV: Proximal Calf 5.6 Yes 0.8 Mid Calf 4.2 Yes 4.4 AASV: Proximal Thigh 3.5 Yes 1.1 Mid Thigh 2.4 Yes 0.3 Distal Thigh Thrombi: No acute or chronic thrombus. Compressibility: Normal. Flow: Mild deep venous reflux. Orthotic Finish Grinding Technician: No significant incompetent perforators. Tech Note: Atherosclerosis noted in arteries of right leg. Incompetent varicose vein distal medial lower leg measures 4.0 mm with 2.4s reflux. CONCLUSION: 1. 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 2. Abnormally dilated and incompetent right anterior accessory saphenous and left small saphenous veins. 3. Consultation for endovenous ablation should be considered. Dictated by: Dakota Carney M.D. on 06/17/2024 at 08:30 Approved by: Dakota Carney M.D. on 06/17/2024 at 08:39
== END 2024-06-14 10:13 | disposition home or self-care (01) ==
LOC: VC 10:13
PROVIDERS: PCP Family Medicine; Visit Provider Family Medicine
DX: R60.0 Localized edema (principal)
CPT/HCPCS: 93970

== ENCOUNTER 2024-06-24 09:17 | Outpatient (OUT) | payer MEDICARE, OTHER, SELFPAY ==
--- OUTSIDE RECORDS SUMMARY | 2024-06-24 09:43 | XMS_ITS | CCD ---
Author Organization [facility] CliniSyin Care Team Providers Care Global Climate Change Researcher Name Role Phone Mayra Navarrete Unavailable Unavailable [...] Unavailable HOY ., DR NUNEZ Consulting Unavailable [place]ANC[place], DR CJ Hernandes Consulting Unavailable HOY ., DR NUNEZ Admitting Unavailable HOY ., DR NUNEZ Attending Unavailable [facility] RIVAS Primary Care Unavailable LANDON ., DR NUNEZ Consulting Unavailable KWADWO CRUMP Admitting Unavailable KWADWO CRUMP Attending Unavailable LANDON ., DR NUNEZ Primary Care Unavailable KWADWO CRUMP Consulting Unavailable Mayra Navarrete Primary Care Physician [phone] MICHELLE BARRY Attending Unavailable MICHELLE BARRY Admitting Unavailable MAYRA NAVARRETE Primary Care Unavailable MAYRA NAVARRETE Primary Care Unavailable MD Mayra Navarrete Primary Care Provider [phone] MD Shaquille Lilly Attending Provider [phone] Mayra Navarrete Primary Care Unavailable Shaquille Lilly Attending Unavailable Shaquille Lilly Admitting Unavailable NILVikas, Shaquille Peter Attending Unavailable NILVikas, Shaquille Peter Attending Unavailable NILL, Shaquille Peter Attending Unavailable Nguyễn VELA Attending Unavailable Nguyễn VELA Attending Unavailable NILVikas, Shaquille Peter Attending Unavailable Mayra Navarrete Referring Unavailable Mayra Navarrete MD Primary Care Provider [phone] JOHNNIE DERAS Attending Unavailable MAYRA NAVARRETE Primary Care Unavailable LORETA BARRAGAN E Attending Unavailable MAYRA NAVARRETE Primary Care Unavailable Mayra Navarrete MD Primary Care Provider [phone] TOO THOMPSON Attending Unavailable KAHALELUIS DANIEL Khan Attending Unavailable HOULTON, TOO Attending Unavailable KAHALELUIS DANIEL Khan Referring Unavailable HOULTON, TOO Attending Unavailable KAHMEHRAN BASSUKHDEV M Attending Unavailable PETITTRADHA Emery Attending Unavailable YUE GARCIA Attending Unavailable HOYRUBENMAYRA M Referring Unavailable TIMMIS, MEGAN H Attending Unavailable HOYRUBENMAYRA M Referring Unavailable TIMMIS, MEGAN H Attending Unavailable PETITTRADHA Emery Attending Unavailable SHAQUILLE VALENCIA Attending Unavailable LAUREL, LORETA Referring Unavailable ERIKSHAQUILLE Attending Unavailable LAUREL, LORETA Referring Unavailable ERIKSHAQUILLE Attending Unavailable LAUREL, LORETA Referring Unavailable ERIKSHAQUILLE Attending Unavailable LAUREL, LORETA Referring Unavailable ERIKSHAQUILLE Attending Unavailable LAUREL, LORETA Referring Unavailable DEPOY, KATEY Attending Unavailable LAUREL, LORETA Referring Unavailable ERIKSHAQUILLE Attending Unavailable LAUREL, LORETA Referring Unavailable DEPOY, KATEY Attending Unavailable LAUREL, LORETA Referring Unavailable Allergies Allergy Classification Reported Allergen(s) Allergy Type Date of Onset Reaction(s) Facility (11 sources) bee pollen Allergy to substance (finding) [facility] y 250 DO Work Phone: (20 sources) Penicillins; 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: [Penicillins] Allergy to drug (finding) 9 Anaphylaxis (disorder) [facility] (11 sources) Animal dander - Cats Allergy to substance (finding) [facility] y 250 DO Work Phone: (1 source) Penicillins Drug allergy (disorder) [facility] (8 sources) Latex; 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: [Latex] Drug allergy 2 Unknown (qualifier value) [facility] (6 sources) Sulfonamides (Antibiotic); 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: [sulfa drugs] Propensity to adverse reactions to drug [facility] (3 sources) penciclovir; 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: [penciclovir] Drug Allergy 1 anaphylaxis [facility] (3 sources) Sulfonamides (Antibiotic); 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: [Sulfa (Sulfonamide Antibiotics)] Allergy to substance 9 Anaphylaxis [facility] (1 source) Penicillins Drug allergy (disorder) 9 [facility] (3 sources) Bee pollen; 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: [BEE POLLEN] Drug Allergy 4 Unknown [facility] Work Phone: (1 source) Penicillins Drug Allergy 2 Anaphylaxis [facility] Work Phone: (3 sources) Cat Dander; 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: [CAT DANDER] Allergy to substance 4 Unknown [facility] Work Phone: (8 sources) Bee pollen Allergy to substance 4 Unknown [facility] Work Phone: (8 sources) Penicillins Propensity to adverse reactions 4 [facility] Work Phone: (8 sources) Sulfonamides (Antibiotic) Drug Intolerance 4 [facility] (8 sources) Cat Hair Extract Allergy to substance 4 Unknown [facility] Medications Current Medications Medication Drug Class(es) Dates Sig (Normalized) Sig (Original) acetaminophen 500 mg oral tablet (8 sources) take 1 tablet by mouth twice daily as needed acetaminophen (Tylenol Extra Strength) 500 MG tablet Take 1 tablet twice a day by oral route as needed. Active acetaminophen 325 mg / oxyCODONE hydrochloride 5 [...] Active amitriptyline hydrochloride 25 mg oral tablet (20 sources) Tricyclic Antidepressant Start: 01-19-2024 take 1 tablet by mouth once daily at bedtime Elavil 25 mg Tab 25 mg = 1 tab(s), Oral, Once a day (at bedtime), Refills(s) 0 Start Date: 01/19/24 Status: Ordered Start: 09-13-2017 amitriptyline (Elavil) 50 MG tablet Take 50 mg by mouth as needed at bedtime 07/14/2023 Active Start: 03-26-2014 take [address] [facility] once daily at bedtime Elavil 25 mg Tab 50 mg = 2 tab(s), Oral, Once a day (at bedtime) Start Date: 03/26/14 Status: Ordered take 1 tablet by [facility] once daily at bedtime amitriptyline (Elavil) 25 mg tablet Take 1 tablet (25 mg) by mouth once daily at bedtime. Active aspirin 81 mg oral tablet (20 sources) Platelet Aggregation Inhibitor, Nonsteroidal Anti-inflammatory Drug Start: 06-29-2018 aspirin 81 mg, Or al, Daily, taking 2 times per week, Refills(s) 0, Blood Thinner Start Date: 06/29/18 Status: Ordered Start: 06-29-2018 End: 05-31-2019 take 81 mg by mouth two times weekly Aspirin Discontinued 81 MG PO Twice a Week May 30, 2019 12:00am May 31, 2019 11:36am aspirin 81 MG ch ewable tablet 1 (one) time each day at the same time. Active aspirin 81 mg ch ewable tablet Chew 1 tablet (81 mg) 2 times a week. Active take 1 tablet by rasta two times [...] 12:00am Start: 06-13-2016 take [address] [facility] once daily calcium carbonate-vitamin D3 600 mg-10 mcg (400 unit) capsule Take 1 capsule by mouth once daily. 06/13/2016 Active carvedilol 6.25 mg oral tablet (10 sources) alpha-Adrenergic Sapphire, beta-Adrenergic Sapphire Start: 08-31-2023 take 1 tablet by mouth in the morning carvedilol (Coreg) 6.25 MG tablet Take 6.25 mg by mouth in the morning and 6.25 mg in the evening. Take with meals. 08/31/2023 Active cetirizine hydrochloride 10 mg oral tablet (8 sources) Histamine-1 Receptor Antagonist Start: 09-21-2023 take 1 tablet by mouth once daily cetirizine (ZyrTEC) 10 MG tablet Take 10 mg by mouth Daily 09/21/2023 Active doxycycline monohydrate 100 mg oral tablet (8 sources) Tetracycline-class Drug take 1 tablet by mouth in the morning doxycycline (Adoxa) 100 MG tablet Take 100 mg by mouth in the morning and 100 mg before bedtime. Take with a full glass of water and do not lie down for at least 30 minutes after. Active fluorouracil 50 mg/ml topical cream (8 sources) Nucleoside Metabolic Inhibitor Start: 02-01-2024 fluorouracil (Efudex) 5 % cream Indications: Actinic keratosis Apply to directed areas on the scalp, nose, and left cheek twice a day x 14 days. Dispense 30 day supply but only use for 14 days. 40 g 02/01/2024 Active Folate 1 mg Tab (6 sources) Start: 08-23-2019 Folate 1 mg Tab Refills(s) 0 Start Date: 08/23/19 Status: Ordered folic acid 1 mg oral tablet (20 sources) Start: 08-25-2022 take 1 tablet by mouth in the morning folic acid (Folvite) 1 MG tablet Take 1 tablet by mouth in the morning. 08/25/2022 Active Start: 05-30-2019 End: 05-30-2019 Folic Acid Active 1 MG PO Da ashley May 30, 2019 12:00am Does not take on Monday furosemide 20 mg oral tablet (18 sources) Loop Diuretic Start: 09-13-2017 End: 11-27-2023 take 20 mg by mouth once daily Lasix 20 mg, Oral, Daily, Refills(s) 0, diuretic/water pill Start Date: 06/29/18 Status: Ordered glimepiride 1 mg oral tablet (14 sources) Sulfonylurea Start: 07-14-2023 take 1 tablet [...] 0 Refills: 0 Ordered: 08-Dec-2021 DO Active hyoscyamine sulfate 0.125 mg sublingual tablet (8 sources) hyoscyamine (Lev sin) 0.125 MG SL tablet DISSOLVE 1 TABLET UNDER TONGUE 4 TIMES DAILY NEEDED FOR ABDOMINAL PAIN Active ibuprofen 600 mg oral tablet (1 source) Nonsteroidal Anti-inflammatory Drug Start: 3 take 600 mg by mouth every six hours ibuprofen 600 mg, Oral, q6hr Start Date: 03/20/23 Status: Ordered irbesartan 300 mg oral tablet (13 sources) Angiotensin 2 Receptor Sapphire Start: 4 take 1 tablet by mouth once daily irbesartan (Avapro) 300 MG tablet Take 300 mg by mouth Daily 01/19/2024 Active Start: 05-30-2019 irbesartan 300 mg Tab Refills(s) 0 Start Date: 08/23/19 Status: Ordered Start: 09-13-2017 End: 05-30-2019 take 150 mg by mouth once daily Irbesartan Discontinued 150 MG PO Daily September 13, 2017 12:00am May 30, 2019 2:59pm lansoprazole 30 mg delayed release oral capsule (8 sources) Proton Pump Inhibitor Start: 03-17-2022 take 1 capsule by mouth in the morning lansoprazole (Prevacid) [address] capsule Take 30 mg by mouth in the morning and 30 mg before bedtime. 03/17/2022 Active 24 hr metFORMIN hydrochloride 500 mg extended release oral tablet (13 sources) Biguanide Start: 05-30-2019 take 500 mg by mouth twice daily Metformin Active 500 MG PO Twice daily May 30, 2019 12:00am Start: 06-29-2018 take 500 mg by mouth twice jessica ly Glucophage 500 mg, Oral, BID, Refills(s) 0, Blood glucose Start Date: 06/29/18 Status: Ordered take [address] [facility] once daily metFORMIN HCl - 500 MG Oral Tablet TAKE 2 TABLETS DAILY. Quantity: 0 Refills: 0 Ordered: 08-Dec-2021 DO Active 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 5 mg oral tablet (20 sources) Folate Analog Metabolic Inhibitor Start: 07-14-2023 take 4 tablets by mouth every week 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 5 mg oral tablet 20 mg = 4 tab(s), Oral, qWeek, Refills(s) 0 Start Date: 07/14/23 Status: Ordered Start: 11-21-2022 take [address] [facility] every week 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 (Trexall) 2.5 mg tablet Take 4 tablets (10 mg total) by mouth 1 (one) time per week. 11/21/2022 Active Start: 08-23-2019 Trexall 2.5 mg Tab Refills(s) 0 Start Date: 08/23/19 Status: Ordered Start: 05-30-2019 take 10 mg by mouth every week Methotrexate Sodium Active 10 MG PO every week May 30, 2019 12:00am Takes on Monday take 2 tablets by mo [facility] every week 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 2.5 MG tablet Take 2 tablets by mouth 1 (one) time per week. Follow directions carefully, and ask to explain any part you do not understand. Take exactly as directed. Active take 4 tablets by mo [facility] every week Methotrexate 2.5 MG Oral Tablet TAKE 4 TABLETS WEEKLY. Quantity: 0 Refills: 0 Ordered: 28-Dec-2021 DO Active take 1 tablet by rasta th every week Methotrexate Sodium 2.5 MG Oral Tablet TAKE 1 TABLET WEEKLY. Quantity: 0 Refills: 0 Ordered: 08-Dec-2021 DO Active montelukast 10 mg oral tablet (8 sources) Leukotriene Receptor Antagonist Start: 09-21-2023 take 1 tablet by mouth at bedtime montelukast (Singulair) 10 MG tablet Take 10 mg by mouth at bedtime 09/21/2023 Active 24 hr oxybutynin chloride 5 mg extended release oral tablet (5 sources) Cholinergic Muscarinic Antagonist Start: 03-20-2023 take 1 tablet by mouth at bedtime oxybutynin 5 mg ER Tab 5 mg = 1 tab(s), Oral, Bedtime, # 30 tab(s), Refills(s) 8, Pharmacy: [facility]/pharmacy #[id number], 175, cm, 03/20/23 14:33:00 EDT, Height/Length Dosing, 112, kg, 03/20/23 14:33:00 EDT, Weight Dosing Start Date: 03/20/23 Status: Ordered pantoprazole 40 mg extended release oral tablet (20 sources) Proton Pump Inhibitor Start: 06-29-2018 take [...] the morning. Take before meals. Active Miralax (5 sources) Osmotic Laxative Start: 07-14-2023 take 17 g by mouth once daily MiraLax 17 gm, Oral, Daily, Refill(s) 0 Start Date: 07/14/23 Status: Ordered predniSONE 2.5 mg oral tablet (17 sources) Start: 07-18-2023 take 2 tablets by [...] 13, 2017 12:00am May 30, 2019 3:00pm take 5 mg by mouth once daily pr edniSONE (Deltasone) 10 MG tablet Take 5 mg by mouth Daily Active rosuvastatin calcium 5 mg oral tablet (20 sources) HMG-CoA Reductase Inhibitor Start: 12-01-2020 take [...] week. Active tiZANidine 4 mg oral tablet (9 sources) Central alpha-2 Adrenergic Agonist Start: 03-20-2023 take 1 tablet by mouth every eight hours tiZANidine 4 mg Tab 4 mg = 1 tab(s), Oral, q8hr Start Date: 9/11/23 Status: Ordered Start: 03-12-2023 tiZANidine (Za naflex) 4 MG tablet Take 2 mg by mouth as needed at bedtime 03/12/2023 Active vitamin b12 1 mg oral tablet (11 sources) Vitamin B12 Start: 05-30-2019 take 3 tablets by mouth once daily Cyanocobalamin (Vitamin B-12) (Vitamin B-12) 1,000 mcg Tablet Active 3000 MCG PO Daily May 30, 2019 12:00am Start: 09-13-2017 End: 05-30-2019 take 1 tablet by mouth once daily Cyanocobalamin (Vitamin B-12) (Vitamin B-12) 1,000 mcg Tablet Discontinued 1000 MCG PO Daily September 13, 2017 12:00am May 30, 2019 3:02pm take 1 tablet by rasta th in the morning cyanocobalamin (Vitamin B-12) 100 MCG tablet Take 100 mcg by mouth in the morning. Active Vitamin D3 (6 sources) Start: 06-29-2018 Vitamin D3 Ora l, [...] Classification Problem Date Documented Da te Episodic/Chronic Anxiety disorders (13 sources) Anxiety; 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: [Anxiety disorder, unspecified] Onset: 4 07-14-2023 Chronic Cardiac dysrhythmias (13 sources) Helder rhythm disorder; 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: [Other specified cardiac arrhythmias] Onset: 4 07-14-2023 Chronic Cataract (8 sources) Bilateral age-related nuclear cataracts; 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: [Age-related nuclear cataract, bilateral] Onset: 3 01-30-2023 Chronic Chronic kidney disease (8 sources) Chronic kidney disease stage 3; 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: [Chronic kidney disease, stage 3 (HCC)] Onset: 4 12-27-2023 Chronic Chronic kidney disease (2 sources) Chronic kidney disease; 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: [Chronic kidney disease, stage 3a] Onset: 4 Conditions associated with dizziness or vertigo (20 sources) Dizziness; 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: [Dizziness and giddiness] Onset: 4 08-24-2023 Episodic Coronary atherosclerosis and other heart disease (20 sources) Angina pectoris; 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: [Other and unspecified angina pectoris] Onset: 4 11-27-2023 Chronic Deficiency and other anemia (1 source) Anemia, unspecified; 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: [ANEMIA UNSPECIFIED] Onset: 3 Episodic Diabetes mellitus without complication (20 sources) Type 2 diabetes mellitus without complications; 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: [Diabetes mellitus] Onset: 2 Chronic Diabetes mellitus without complication (1 source) Other abnormal glucose; 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: [OTHER ABNORMAL GLUCOSE] Onset: 3 Episodic Disorders of lipid metabolism (20 sources) Hyperlipidemia; 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: [Other and unspecified hyperlipidemia] Onset: 3 07-14-2023 Chronic Esophageal disorders (14 sources) Gastroesophageal reflux disease; 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: [Gastro-esophageal reflux disease without esophagitis] Onset: 4 08-21-2019 Chronic Essential hypertension (20 sources) Benign essential hypertension; 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: [Benign essential hypertension] Onset: 4 07-14-2023 Chronic Fluid and electrolyte disorders (2 sources) Other disorders of electrolyte and fluid balance, not elsewhere classified; 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: [Other disorders of electrolyte and fluid balance, not elsewhere classified] Onset: 4 Episodic Hyperplasia of prostate (19 sources) Benign prostatic hyperplasia without lower urinary tract symptoms; 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: [Benign prostatic hypertrophy with outflow obstruction] Onset: 2 Chronic Osteoarthritis (20 sources) Arthritis of right knee; 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: [Unilateral primary osteoarthritis, right knee] Onset: 4 12-21-2023 Chronic Other and unspecified benign neoplasm (2 sources) Benign neoplasm of cranial nerves; 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: [Benign neoplasm of cranial nerves (Multi)] Onset: 4 Chronic Other and unspecified benign neoplasm (8 sources) Acoustic neuroma; 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: [Benign neoplasm of cranial nerves] Onset: 4 01-23-2024 Chronic Other connective tissue disease (20 sources) Polymyalgia rheumatica; 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: [Polymyalgia rheumatica] Onset: 2 08-23-2019 Chronic Other connective tissue disease (1 source) Polymyalgia rheumatica; 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: [Polymyalgia rheumatica] Onset: 2 Chronic Other ear and sense organ disorders (2 sources) Sensorineural hearing loss, unilateral, right ear, with unrestricted hearing on the contralateral side; 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: [Sensorineural hearing loss, unilateral, right ear, with unrestricted hearing on the contralateral side] Onset: 4 Chronic Other ear and sense organ disorders (16 sources) Otitis externa; 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: [Otitis externa in other diseases classified elsewhere, unspecified ear] Onset: 4 12-21-2023 Chronic Other ear and sense organ disorders (8 sources) Sensorineural hearing loss, bilateral; 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: [Sensorineural hearing loss, bilateral] Onset: 4 12-21-2023 Chronic Other gastrointestinal disorders (1 source) 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; 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: [IRRITABLE BOWEL SYND W/O DIARRHEA] Onset: 2 Chronic Other infections; including parasitic (11 sources) Personal history of other infectious and parasitic diseases; 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: [Personal history of COVID-19] Episodic Other inflammatory condition of skin (14 sources) Psoriasis; 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: [Psoriasis, unspecified] Onset: 4 08-23-2019 Chronic Other inflammatory condition of skin (13 sources) Psoriatic arthritis; 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, unspecified] Onset: 2 07-14-2023 Chronic Other inflammatory condition of skin (8 sources) Psoriasis vulgaris; 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] Onset: 4 12-21-2023 Chronic Other inflammatory condition of skin (2 sources) Arthropathic psoriasis, unspecified; 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, unspecified] Onset: 4 Chronic Other liver diseases (1 source) Fatty (change of) liver, not elsewhere classified; 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: [FATTY CHANGE LIVER NEC] Onset: 2 Chronic Other liver diseases (14 sources) Steatosis of liver; 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: [Fatty (change of) liver, not elsewhere classified] Onset: 4 12-01-2020 Chronic Other lower respiratory disease (11 sources) Dyspnea; 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: [Other respiratory abnormalities] Episodic Other male genital disorders (2 sources) Male erectile dysfunction, unspecified; 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: [Erectile dysfunction] Onset: 3 Chronic Other male genital disorders (6 sources) Impotence 08-21-2020 Chronic Other nervous system disorders (1 source) Hereditary and idiopathic neuropathy, unspecified; 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: [HEREDITARY IDIOPATH NEUROPATHY UNS] Onset: 2 Chronic Other nervous system disorders (13 sources) Neuropathy; 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: [Polyneuropathy, unspecified] Onset: 4 07-14-2023 Chronic Other nervous system disorders (8 sources) Carpal tunnel syndrome; 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: [Carpal tunnel syndrome, unspecified upper limb] Onset: 4 12-21-2023 Chronic Other nervous system disorders (13 sources) Impairment of balance; 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: [Other abnormalities of gait and mobility] Onset: 4 04-21-2024 Episodic Other non-traumatic joint disorders (8 sources) Polyarthropathy; 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: [Polyarthritis, unspecified] Onset: 2 12-21-2023 Chronic Other nutritional; endocrine; and metabolic disorders (17 sources) Obesity; 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: [Obesity, unspecified] 03-26-2014 Chronic Other nutritional; endocrine; and metabolic disorders (6 sources) Body mass index 30+ - obesity 12-01-2020 Chronic Residual codes; unclassified (20 sources) Sleep apnea; Translations: [Unspecified sleep apnea] Onset: 4 07-14-2023 Chronic Residual codes; unclassified (1 source) Encounter for procedure for purposes other than remedying health state, unspecified; Translations: [Encounter for procedure for purposes other than remedying health state, unspecified] Onset: 3 Episodic Retinal detachments; defects; vascular occlusion; and retinopathy (8 sources) Nonexudative age-related macular degeneration; Translations: [Nonexudative age-related macular degeneration, bilateral, early dry stage] Onset: 3 01-30-2023 Chronic Spondylosis; intervertebral disc disorders; other back problems (8 sources) Degeneration of cervical intervertebral disc; Translations: [Other cervical disc degeneration, unspecified cervical region] Onset: 4 12-21-2023 Chronic Spondylosis; intervertebral disc disorders; other back problems (20 sources) Neck pain; Translations: [Cervicalgia] Onset: 4 04-21-2024 Episodic Unclassified (1 source) Drug therapy finding 08-23-2019 Unclassified (1 source) 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; Translations: [alf (current) use of antimetabolite agent] Onset: 2 Past or Other Problems Problem Classification Problem Date Documented Da te Episodic/Chronic Abdominal hernia (13 sources) Hiatal hernia; Translations: [Diaphragmatic hernia without obstruction or gangrene] Onset: 08-16-2023 07-14-2023 Episodic Abdominal pain (14 sources) Epigastric pain; Translations: [Epigastric pain] Onset: 08-16-2023 12-01-2020 Episodic Acute and unspecified renal failure (2 sources) Acute kidney failure, unspecified; Translations: [Acute kidney failure, unspecified] Onset: 10-02-2023 Episodic Calculus of urinary tract (20 sources) History of calculus of kidney; Translations: [Personal history of urinary calculi] Onset: 03-20-2023 Resolved: 12-21-2023 Episodic Cardiac dysrhythmias (17 sources) Bradycardia; Translations: [Other specified cardiac dysrhythmias] Onset: 11-25-2021 Episodic Genitourinary symptoms and ill-defined conditions (20 sources) Urgent desire to urinate; Translations: [Urgency of urination] Onset: 03-20-2023 Episodic Headache; including migraine (13 sources) Migraine; Translations: [Migraine, unspecified, not intractable, without status migrainosus] Onset: 08-16-2023 Resolved: 12-21-2023 07-14-2023 Chronic Inflammation; infection of eye (except that caused by tuberculosis or sexually transmitteddisease) (8 sources) Blepharitis of upper and lower eyelids of bilateral eyes; Translations: [Unspecified blepharitis right eye, upper and lower eyelids] Onset: 01-30-2023 01-30-2023 Episodic Inflammatory conditions of male genital organs (14 sources) Prostatitis; Translations: [Inflammatory disease of prostate, unspecified] Onset: 08-16-2023 08-21-2019 Episodic Malaise and fatigue (20 sources) Fatigue; Translations: [Other malaise and fatigue] Onset: 10-25-2022 Episodic Mycoses (8 sources) Superficial mycosis; Translations: [Superficial mycosis, unspecified] Onset: 12-21-2023 12-21-2023 Episodic Nausea and vomiting (14 sources) Nausea and vomiting; Translations: [Nausea with vomiting, unspecified] Onset: 08-16-2023 Resolved: 12-21-2023 12-01-2020 Episodic Neoplasms of unspecified nature or uncertain behavior (15 sources) Neoplasm of uncertain behavior of skin; Translations: [Neoplasm of uncertain behavior of skin] Onset: 07-18-2023 Episodic Nutritional deficiencies (16 sources) Vitamin D deficiency, unspecified; Translations: [Vitamin D deficiency] Onset: 10-30-2022 Resolved: 12-21-2023 07-14-2023 Chronic Nutritional deficiencies (13 sources) Cobalamin deficiency; Translations: [Deficiency of other specified B group vitamins] Onset: 08-16-2023 07-14-2023 Episodic Other acquired deformities (8 sources) Spondylolysis; Translations: [Spondylolysis, site unspecified] Onset: 05-21-2022 12-21-2023 Episodic Other aftercare (8 sources) alf 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; Translations: [moth exterminator 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] Onset: 05-27-2022 12-21-2023 Episodic Other diseases of kidney and ureters (2 sources) Disorder of kidney and ureter, unspecified; Translations: [Disorder of kidney and ureter, unspecified] Onset: 08-16-2023 Episodic Other ear and sense organ disorders (8 sources) Sudden idiopathic hearing loss; Translations: [Sudden idiopathic hearing loss, right ear] Onset: 12-27-2023 12-27-2023 Episodic Other eye disorders (8 sources) Dry eyes; Translations: [Dry eye syndrome of bilateral lacrimal glands] Onset: 01-30-2023 01-30-2023 Episodic Other gastrointestinal disorders (1 source) Diarrhea, unspecified; Translations: [DIARRHEA UNSPECIFIED] Onset: 03-18-2022 Episodic Other infections; including parasitic (13 sources) History of Helicobacter pylori infection; Translations: [Personal history of other infectious and parasitic diseases] Onset: 08-16-2023 Resolved: 12-21-2023 07-14-2023 Episodic Other lower respiratory disease (20 sources) Dyspnea on exertion; Translations: [Shortness of breath] Onset: 08-24-2023 08-24-2023 Episodic Other nervous system disorders (8 sources) Notalgia paresthetica; 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] Onset: 12-21-2023 12-21-2023 Episodic Other non-epithelial cancer of skin (13 sources) Basal cell carcinoma of skin; Translations: [Basal cell carcinoma of skin, unspecified] Onset: 09-01-2023 Episodic Other nutritional; endocrine; and metabolic disorders (14 sources) Loss of appetite; Translations: [Anorexia] Onset: 08-16-2023 12-01-2020 Episodic Other nutritional; endocrine; and metabolic disorders (14 sources) Weight loss; Translations: [Abnormal weight loss] Onset: 08-16-2023 Resolved: 12-21-2023 12-01-2020 Episodic Other screening for suspected conditions (not mental disorders or infectious disease) (20 sources) Encounter for screening for malignant neoplasm of prostate; Translations: [Elevated prostate specific antigen [PSA]] Onset: 06-20-2022 Episodic Pathological fracture (9 sources) Age-related osteoporosis with current pathological fracture, vertebra(e), initial encounter for fracture; Translations: [Pathological fracture of vertebra due to osteoporosis] Onset: 04-05-2023 12-21-2023 Episodic Screening and history of mental health and substance abuse codes (20 sources) Ex-smoker; Translations: [Personal history of tobacco use] Onset: 08-16-2023 Resolved: 12-21-2023 08-23-2019 Episodic Comment on above: Quit: 1991; Substance-related disorders (10 sources) 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; Translations: [Other psychoactive substance use, unspecified, uncomplicated] Onset: 10-11-2023 12-21-2023 Episodic Unclassified (1 source) Onset: 11-27-2023 11-27-2023 Unclassified (1 source) alf (current) use of antimetabolite agent; 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] Onset: 08-17-2023 Results Test Name Value Interpretation Reference Range Facil ity 36on 06-03-2024 36 Last Visit: 02/15/24 Upcoming Visit: 09/11/23 [facility] Refillon 06-02-2024 Refill [id number] Travis Coburn 1940 M Date Provider Department Center 06/02/2024 LUIS DANIEL HAYNES [facility] RHEUM Eloise Heal No family history on file Reason for Visit and Comments: Med Refill [[id number]] [facility] Follow-Upon 04-17-2024 Follow-Up [id number] Travis Coburn 1940 M Date Provider Department Center 04/17/2024 TOO BLOCK [facility] NEPHRO Comprehensiv No family history on file Level of Service:51486 UT OFFICE/OUTPATIENT ESTABLISHED MOD MDM 30 MIN Reason for Visit and Comments: Follow-up [[id number]] [facility] ALBUMINon 04-04-2024 Albumin [Mass/Vol] 4.2 g/dL Normal 3.5-5.7 [facility] Comment on above: Performed By: #### L [id number] #### [facility] ([facility] [address] [place] [address] BASIC METABOLIC PANELon 09-2 -2023 Anion gap [Moles/Vol] 7 mmol/L Normal 7-20 [facility] Comment on above: Performed By: #### L [id number] #### [facility] ([facility]) [address] [place] [address] Calcium [Mass/Vol] 9.5 mg/dL Normal 8.6-10.3 [facility] Comment on above: Performed By: #### L [id number] #### [facility] ([facility]) [address] [place] [address] Chloride [Moles/Vol] 102 mmol/L Normal 98-107 [facility] Comment on above: Performed By: #### L [id number] #### [facility] ([facility]) [address] [place] [address] CO2 [Moles/Vol] 31 mmol/L Normal 21-31 [facility] Comment on above: Performed By: #### L [id number] #### [facility] ([facility]) [address] [place] [address] Creatinine [Mass/Vol] 1.10 mg/dL Normal 0.70-1.30 [facility] Comment on above: Performed By: #### L [id number] #### [facility] ([facility]) [address] [place] [address] GLOMERULAR FILTRATION RATE ML/MIN/1.73 SQ M.PREDICTED 67.0 mL/min/1.73m*2 Normal >60.0 [facility] Comment on above: Result Comment: [facility]???s estimated glomerular filtration rate (eGFR) will no [...] individuals. Performed By: #### L [id number] #### [facility] ([facility]) [address] [place] [address] Glucose [Mass/Vol] 87 mg/dL Normal 70-100 [facility] Comment on above: Performed By: #### L [id number] #### [facility] ([facility]) [address] [place] [address] Potassium [Moles/Vol] 4.0 mmol/L Normal 3.5-5.1 [facility] Comment on above: Performed By: #### L [id number] #### [facility] ([facility]) [address] [place] [address] Sodium [Moles/Vol] 136 mmol/L Normal 136-145 [facility] Comment on above: Performed By: #### L [id number] #### [facility] ([facility]) [address] [place] [address] Urea nitrogen [Mass/Vol] 18 mg/dL Normal 7-25 [facility] Comment on above: Performed By: #### L [id number] #### [facility] ([facility]) [address] [place] [address] UREA NITROGEN/CREATININ E (MASS RATIO) IN SER/PLAS 16.4 Normal [facility] Comment on above: Performed By: #### L [id number] #### [facility] ([facility]) [address] [place] [address] CREATININE, URINE, RANDOMon 04-04-2024 Creatinine (U) [Mass/Vol] 91.0 mg/dL Normal 26-299 [facility] Comment on above: Performed By: #### L [id number] #### [facility] ([facility]) [address] [place] [address] HEMOGLOBINon 04-04-2024 Hemoglobin (Bld) [Mass/Vol] 14.5 g/dL Normal 13.0-17.0 [facility] Comment on above: Performed By: #### L [id number] #### [facility] ([facility]) [address] [place] [address] MAGNESIUMon 04-04-2024 Magnesium [Mass/Vol] 1.7 mg/dL Low 1.9-2.7 [facility] Comment on above: Performed By: #### L [id number] #### [facility] ([facility]) [address] [place] [address] PHOSPHORUSon 04-04-2024 Magnesium [Mass/Vol] 2.5 mg/dL Normal 2.5-5.0 [facility] Comment on above: Performed By: #### L [id number] ####[facility] ([facility])[address] [place] [address] PROTEIN, URINE, RANDOMon Protein (U) [Mass/Vol] 6.0 mg/dL Normal [facility] Comment on above: Result Comment: Ther e are no established reference values for random urine specimens. Performed By: #### L [id number] #### [facility] ([facility]) [address] [place] [address] CBC WITH AUTO DIFFERENTIALon 02-15-2024 Basophils (Bld) [#/Vol] 0.04 10*3/uL Normal 0.00-0.20 [facility] Comment on above: Performed By: #### L [id number] #### [facility] ([facility]) [address] [place] [address] Basophils/100 WBC (Bld) 0.5 % Normal 0.0-1.0 [facility] Comment on above: Performed By: #### L [id number] #### [facility] ([facility]) [address] [place] [address] Eosinophils (Bld) [#/Vol] 0.13 10*3/uL Normal 0.00-0.50 [facility] Comment on above: Performed By: #### L [id number] #### [facility] ([facility]) [address] [place] [address] Eosinophils/100 WBC (Bld) 1.7 % Normal 0.0-6.0 [facility] Comment on above: Performed By: #### L [id number] #### [facility] ([facility]) [address] [place] [address] Erythrocyte distribution width (RBC) [Ratio] 13.8 % Normal 11.5-15.0 [facility] Comment on above: Performed By: #### L [id number] #### [facility] ([facility]) [address] [place] [address] ERYTHROCYTE MEAN CORPUSCULAR HEMOGLOBIN CONCENTRATION (G/DL) BY AUTOMATED 33.0 g/dL Normal 32.0-35.0 [facility] Comment on above: Performed By: #### L [id number] #### [facility] ([facility]) [address] [place] [address] Hematocrit (Bld) [Volume fraction] 44.0 % Normal 39.0-55.0 [facility] Comment on above: Performed By: #### L [id number] #### [facility] ([facility]) [address] [place] [address] Hemoglobin (Bld) [Mass/Vol] 14.5 g/dL Normal 13.0-17.0 [facility] Comment on above: Performed By: #### L [id number] #### [facility] ([facility]) [address] [place] [address] Immature granulocytes (Bld) [#/Vol] 0.04 10*3/uL Normal 0.00-0.20 [facility] Comment on above: Performed By: #### L [id number] #### [facility] ([facility]) [address] [place] [address] Immature granulocytes/100 WBC (Bld) 0.5 % Normal 0.0-1.0 [facility] Comment on above: Performed By: #### L [id number] #### [facility] ([facility]) [address] [address] Lymphocytes (Bld) [#/Vol] 1.89 10*3/uL Normal 1.20-4.00 [facility] Comment on above: Performed By: #### L [id number] #### [facility] ([facility]) [address] [place] [address] Lymphocytes/100 WBC (Bld) 24.9 % Normal 20.0-45.0 [facility] Comment on above: Performed By: #### L [id number] #### [facility] ([facility]) [address] [place] [address] MCH (RBC) [Entitic mass] 32.1 pg Normal 27.0-33.0 [facility] Comment on above: Performed By: #### L [id number] #### [facility] ([facility]) [address] [place] [address] MCV (RBC) [Entitic vol] 97.3 fL Normal 82.0-98.0 [facility] Comment on above: Performed By: #### L [id number] #### [facility] ([facility]) [address] [place] [address] Monocytes (Bld) [#/Vol] 0.59 10*3/uL Normal 0.10-1.00 [facility] Comment on above: Performed By: #### L [id number] #### [facility] ([facility]) [address] [place] [address] Monocytes/100 WBC (Bld) 7.8 % Normal 5.0-12.0 [facility] Comment on above: Performed By: #### L [id number] #### [facility] ([facility]) [address] [place] [address] Neutrophils (Bld) [#/Vol] 4.91 10*3/uL Normal 1.60-7.60 [facility] Comment on above: Performed By: #### L [id number] #### [facility] ([facility]) [address] [place] [address] Neutrophils/100 WBC (Bld) 64.6 % Normal 40.0-72.0 [facility] Comment on above: Performed By: #### L [id number] #### [facility] ([facility]) [address] [place] [address] NRBC (PER 100 WBCS) BY AUTOMATED COUNT 0.0 % Normal 0 [facility] Comment on above: Performed By: #### L [id number] #### [facility] ([facility]) [address] [place] [address] PLATELETS (10*3/UL) IN BLOOD AUTOMATED COUNT 187 10*3/uL Normal 150-400 [facility] Comment on above: Performed By: #### L [id number] #### [facility] ([facility]) [address] [place] [address] RBC (Bld) [#/Vol] 4.52 10*6/uL Normal 4.20-5.70 [facility] Comment on above: Performed By: #### L [id number] #### [facility] ([facility]) [address] [place] [address] WBC (Bld) [#/Vol] 7.60 10*3/uL Normal 4.00-10.60 [facility] Comment on above: Performed By: #### L [id number] #### [facility] ([facility]) [address] [place] [address] COMPREHENSIVE METABOLIC PANE [place] 02-15-2024 Albumin [Mass/Vol] 4.0 g/dL Normal 3.5-5.7 [facility] Comment on above: Performed By: #### L [id number] ####[facility] ([facility])[address] [place] [address] ALP [Catalytic activity/Vol] 90 U/L Normal 34-104 [facility] Comment on above: Performed By: #### L [id number] ####[facility] ([facility])[address] [place] [address] ALT [Catalytic activity/Vol] 19 U/L Normal 7-52 [facility] Comment on above: Performed By: #### L [id number] ####[facility] ([facility])[address] [place] [address] Anion gap [Moles/Vol] 10 mmol/L Normal 7-20 [facility] Comment on above: Performed By: #### L [id number] ####[facility] ([facility])[address] [place] [address] AST [Catalytic activity/Vol] 17 U/L Normal 13-39 [facility] Comment on above: Performed By: #### L [id number] ####[facility] ([facility])[address] [place] [address] Bilirubin [Mass/Vol] 0.8 mg/dL Normal 0.3-1.0 [facility] Comment on above: Performed By: #### L [id number] ####[facility] ([facility])[address] [place] [address] Calcium [Mass/Vol] 9.2 mg/dL Normal 8.6-10.3 [facility] Comment on above: Performed By: #### L [id number] ####[facility] ([facility])[address] [place] [address] Chloride [Moles/Vol] 103 mmol/L Normal 98-107 [facility] Comment on above: Performed By: #### L [id number] ####[facility] ([facility])[address] [place] [address] CO2 [Moles/Vol] 27 mmol/L Normal 21-31 [facility] Comment on above: Performed By: #### L [id number] ####[facility] ([facility])[address] [place] [address] Creatinine [Mass/Vol] 1.08 mg/dL Normal 0.70-1.30 [facility] Comment on above: Performed By: #### L [id number] ####[facility] ([facility])[address] [place] [address] GLOMERULAR FILTRATION RATE ML/MIN/1.73 SQ M.PREDICTED 68.5 mL/min/1.73m*2 Normal >60.0 [facility] Comment on above: Result Comment: [facility]???s estimated glomerular filtration rate (eGFR) will no [...] of individuals. Performed By: #### L [id number] ####[facility] ([facility])[address] [facility] [address] Glucose [Mass/Vol] 107 mg/dL High 70-100 [facility] Comment on above: Performed By: #### L [id number] ####[facility] ([facility])[address] [facility] [address] Potassium [Moles/Vol] 3.7 mmol/L Normal 3.5-5.1 [facility] Comment on above: Performed By: #### L [id number] ####[facility] ([facility])[address] [facility] [address] Protein [Mass/Vol] 6.7 g/dL Normal 6.0-8.3 [facility] Comment on above: Performed By: #### L [id number] ####[facility] ([facility])[address] [facility] [place] [address] Sodium [Moles/Vol] 136 mmol/L Normal 136-145 [facility] Comment on above: Performed By: #### L [id number] ####[facility] ([facility])[address] [facility] [address] Urea nitrogen [Mass/Vol] 17 mg/dL Normal 7-25 [facility] Comment on above: Performed By: #### L [id number] ####[facility] ([facility])[address] [facility] [address] UREA NITROGEN/CREATININ E (MASS RATIO) IN SER/PLAS 15.7 [facility] Comment on above: Performed By: #### L [id number] ####[facility] ([facility])[address] [place] [address] Follow-Upon 02-15-2024 Follow-Up [id number] Travis Coburn 1940 [facility] Provider Department Center 02/15/2024 LUIS DANIEL HAYNES [facility] Eloise Heal No family history on file Level of Service:74942 UT OFFICE/OUTPATIENT ESTABLISHED MOD MDM 30 MIN () Reason for Visit and Comments: Follow-up [[id number]] - 6 month follow up [facility] Orders Onlyon 02-15-2024 Orders Only [id number] Travis Coburn 1940 Provider Department Center 02/15/2024 JOON VAZQUEZ [facility] R[facility] Eloise Heal No family history on file [facility] 36on 11-28-2023 36 Last visit: 08/17/23 Next visit: 02/15/24 CBC/CMP: 10/02/23 [facility] 36 RHC patient [facility] 36 Pt called to make sure that you will fill his Methotrexate. [facility] Refillon 11-28-2023 Refill [id number] Travis Coburn 1940 Provider Department Center 11/28/2023 LUIS DANIEL HAYNES [facility] R[facility] No family history on file Reason for Visit and Comments: Med Refill [[id number]] [facility] 36on 10-16-2023 36 Last visit: 08/17/23 Next visit: 02/15/24 CBC/CMP: 10/02/23 [facility] Refillon 10-14-2023 Refill [id number] Travis Coburn 1940 Provider Department Center 10/14/2023 LUIS DANIEL HAYNES [facility] Eloise Heal No family history on file Reason for Visit and Comments: Med Refill [[id number]] Normal [facility] Follow-Upon 10-11-2023 Follow-Up [id number] Travis Coburn 1940 M Date Provider Department Center 10/11/2023 TOO BLOCK [facility] NEPHRO Comprehensiv No family history on file Level of Service:78303 UT OFFICE/OUTPATIENT ESTABLISHED LOW MDM 20 MIN (GC) Reason for Visit and Comments: Follow-up [[id number]] Chronic Kidney Disease [176] Normal [facility] CBCon 10-02-2023 Erythrocyte distribution width (RBC) [Ratio] 14.0 % Normal 11.5-15.0 [facility] Comment on above: Performed By: #### L [id number] ####[facility] ([facility])[address] [place] [address] ERYTHROCYTE MEAN CORPUSCULAR HEMOGLOBIN CONCENTRATION (G/DL) BY AUTOMATED 33.3 g/dL Normal 32.0-35.0 [facility] Comment on above: Performed By: #### L [id number] ####[facility] ([facility])[address] [place] [address] Hematocrit (Bld) [Volume fraction] 44.4 % Normal 39.0-55.0 [facility] Comment on above: Performed By: #### L [id number] ####[facility] ([facility])[address] [place] [address] Hemoglobin (Bld) [Mass/Vol] 14.8 g/dL Normal 13.0-17.0 [facility] Comment on above: Performed By: #### L [id number] ####[facility] ([facility])[address] [place] [address] MCH (RBC) [Entitic mass] 31.9 pg Normal 27.0-33.0 [facility] Comment on above: Performed By: #### L [id number] ####[facility] ([facility])[address] [place] [address] MCV (RBC) [Entitic vol] 95.7 fL Normal 82.0-98.0 [facility] Comment on above: Performed By: #### L [id number] ####[facility] ([facility])[address] [place] [address] PLATELETS (10*3/UL) IN BLOOD AUTOMATED COUNT 189 10*3/uL Normal 150-400 [facility] Comment on above: Performed By: #### L [id number] ####[facility] ([facility])[address] [place] [address] RBC (Bld) [#/Vol] 4.64 10*6/uL Normal 4.20-5.70 [facility] Comment on above: Performed By: #### L [id number] ####[facility] ([facility])[address] [place] [address] WBC (Bld) [#/Vol] 8.52 10*3/uL Normal 4.00-10.60 [facility] Comment on above: Performed By: #### L [id number] ####[facility] ([facility])[address] [place] [address] COMPREHENSIVE METABOLIC PANE [place] 10-02-2023 Albumin [Mass/Vol] 4.3 g/dL Normal 3.5-5.7 [facility] Comment on above: Performed By: #### L [id number] #### [facility] ([facility]) [address] [place] [address] ALP [Catalytic activity/Vol] 102 U/L Normal 34-104 [facility] Comment on above: Performed By: #### L [id number] #### [facility] ([facility]) [address] [place] [address] ALT [Catalytic activity/Vol] 16 U/L Normal 7-52 [facility] Comment on above: Performed By: #### L [id number] #### [facility] ([facility]) [address] [place] [address] Anion gap [Moles/Vol] 11 mmol/L Normal 7-20 [facility] Comment on above: Performed By: #### L [id number] #### [facility] ([facility]) [address] [place] [address] AST [Catalytic activity/Vol] 18 U/L Normal 13-39 [facility] Comment on above: Performed By: #### L [id number] #### [facility] ([facility]) [address] [place] [address] Bilirubin [Mass/Vol] 0.6 mg/dL Normal 0.3-1.0 [facility] Comment on above: Performed By: #### L [id number] #### [facility] ([facility]) [address] [place] [address] Calcium [Mass/Vol] 9.5 mg/dL Normal 8.6-10.3 [facility] Comment on above: Performed By: #### L [id number] #### [facility] ([facility]) [address] [place] [address] Chloride [Moles/Vol] 102 mmol/L Normal 98-107 [facility] Comment on above: Performed By: #### L [id number] #### [facility] ([facility]) [address] [place] [address] CO2 [Moles/Vol] 28 mmol/L Normal 21-31 [facility] Comment on above: Performed By: #### L [id number] #### [facility] ([facility]) [address] [place] [address] Creatinine [Mass/Vol] 1.13 mg/dL Normal 0.70-1.30 [facility] Comment on above: Performed By: #### L [id number] #### [facility] ([facility]) [address] [place] [address] GLOMERULAR FILTRATION RATE ML/MIN/1.73 SQ M.PREDICTED 65.3 mL/min/1.73m*2 Normal >60.0 [facility] Comment on above: Result Comment: The [facility]???s estimated glomerular filtration rate (eGFR) will no [...] individuals. Performed By: #### L [id number] #### [facility] ([facility] [facility]) [address] [place] [address] Glucose [Mass/Vol] 140 mg/dL High 70-100 [facility] Comment on above: Performed By: #### L [id number] #### [facility] ([facility]) [address] [place] [address] Potassium [Moles/Vol] 3.9 mmol/L Normal 3.5-5.1 [facility] Comment on above: Performed By: #### L [id number] #### [facility] ([facility]) [address] [place] [address] Protein [Mass/Vol] 7.2 g/dL Normal 6.0-8.3 [facility] Comment on above: Performed By: #### L [id number] #### [facility] ([facility]) [address] [place] [address] Sodium [Moles/Vol] 137 mmol/L Normal 136-145 [facility] Comment on above: Performed By: #### L [id number] #### [facility] ([facility]) [address] [place] [address] Urea nitrogen [Mass/Vol] 15 mg/dL Normal 7-25 [facility] Comment on above: Performed By: #### L [id number] #### [facility] ([facility]) [address] [place] [address] UREA NITROGEN/CREATININ E (MASS RATIO) IN SER/PLAS 13.3 Normal [facility] Comment on above: Performed By: #### L [id number] #### [facility] ([facility]) [address] [place] [address] CREATININE, URINE, RANDOMon 10-02-2023 Creatinine (U) [Mass/Vol] 58.0 mg/dL Normal 26-299 [facility] Comment on above: Performed By: #### L [id number] #### [facility] ([facility]) [address] [place] [address] Labon 10-02-2023 Lab [id number] Travis Coburn 1940 M Date Provider Department Solomon 10/02/20232241-[facility] RESOURCE [facility] Comprehensiv No family history on file Normal [facility] MAGNESIUMon 10-02-2023 Magnesium [Mass/Vol] 1.8 mg/dL Low 1.9-2.7 [facility] Comment on above: Performed By: #### L [id number] #### [facility] ([facility]) [address] [place] [address] PHOSPHORUSon 10-02-2023 Magnesium [Mass/Vol] 2.7 mg/dL Normal 2.5-5.0 [facility] Comment on above: Performed By: #### L [id number] #### [facility] ([facility]) [address] [place] [address] PROTEIN, URINE, RANDOMon Protein (U) [Mass/Vol] 5.6 mg/dL Normal [facility] Comment on above: Result Comment: Ther e are no established reference values for random urine specimens. Performed By: #### L [id number] #### [facility] ([facility]) [address] [place] [address] URINALYSIS WITH MICROSCOPICo n 10-02-2023 BILIRUBIN, TOTAL PRESENCE IN URINE Negative Normal Negative [facility] Comment on above: Order Comment: 00 00 Performed By: #### L [id number] #### [facility] ([facility]) [address] [place] [address] Clarity (U) Clear Normal Clear [facility] Comment on above: Order Comment: 00 00 Performed By: #### L [id number] #### [facility] ([facility]) [address] [place] [address] Color (U) Yellow Normal Yellow, Dark Yellow, Straw [facility] Comment on above: Order Comment: 00 00 Performed By: #### L [id number] #### [facility] ([facility]) [address] [place] [address] Glucose (U) [Mass/Vol] Negative Normal Negative [facility] Comment on above: Order Comment: 00 00 Performed By: #### L [id number] #### [facility] ([facility]) [address] [place] [address] HEMOGLOBIN PRESENCE IN URINE Negative Normal Negative [facility] Comment on above: Order Comment: 00 00 Performed By: #### L [id number] #### [facility] ([facility]) [address] [place] [address] Ketones Ql (U) Negative Normal Negative [facility] Comment on above: Order Comment: 00 00 Performed By: #### L [id number] #### [facility] ([facility]) [address] [place] [address] LEUKOCYTE ESTERASE PRESENCE IN URINE BY TEST STRIP Negative Normal Negative [facility] Comment on above: Order Comment: 00 00 Performed By: #### L [id number] #### [facility] ([facility]) [address] [place] [address] NITRITE PRESENCE IN URINE Negative Normal Negative [facility] Comment on above: Order Comment: 00 00 Performed By: #### L [id number] #### [facility] ([facility]) [address] [place] [address] pH (U) 6.0 [pH] Normal 5.0-8.0 [facility] Comment on above: Order Comment: 00 00 Performed By: #### L [id number] #### [facility] ([facility]) [address] [place] [address] Protein (U) [Mass/Vol] Negative Normal Negative [facility] Comment on above: Order Comment: 00 00 Performed By: #### L [id number] #### [facility] ([facility]) [address] [place] [address] RBC (#/HPF) IN URINE SEDIMENT 0-2 Abnormal None Seen [facility] Comment on above: Order Comment: 00 00 Performed By: #### L [id number] #### [facility] ([facility]) [address] [place] [address] Specific gravity (U) [Rel density] <=1.005 Low 1.015-1.020 [facility] Comment on above: Order Comment: 00 00 Performed By: #### L [id number] #### [facility] ([facility]) [address] [place] [address] SQUAMOUS EPITHELIAL CELLS (#/HPF) IN URINE SEDIMENT Occasional Normal None Seen, Occasional [facility] Comment on above: Order Comment: 00 00 Performed By: #### L [id number] #### [facility] ([facility]) [address] [place] [address] WBC (LEUKOCYTE) (#/HPF) IN URINE SEDIMENT 0-2 Abnormal None Seen [facility] Comment on above: Order Comment: 00 00 Performed By: #### L [id number] #### [facility] ([facility]) [address] [place] [address] VITAMIN D 25 HYDROXYon 10-01 CALCIDIOL (25 [place] VITAMIN D3) (NG/ML) IN SER/PLAS 16.1 ng/mL Low 30.0-80.0 [facility] Comment on above: Result Comment: >80. 0 Toxicity possible Performed By: #### L [id number] #### [facility] ([facility]) [address] [place] [address] Ambulatory Visit Summaryon 0 09-13-2023 Ambulatory Visit Summary ALMASTRAVIS :1940 Visit Date:09/13/2023 Ambulatory Visit Instructions Your Care Team Attending Physician - MAXX TURNER, Shaquille Peter Primary Care Physician - Landon TURNER, Mayra This Is Your Medications List amitriptyline (amitriptyline [...] TURNER, Nguyễn Peter Where: [facility] General Surgery Office/Clini c Noteon 09-13-2023 General [...] influenza virus vaccine, inactivated 07/26/2022 Recorded SARSCoV2 mRNA(bzcohbgeb-util-i ucros) vac 11/17/2021 Recorded SARS-CoV-2 (COVID-19) mRNA [...] virus vaccine, inactivated 05/22/2014 Recorded Normal [facility] Comment on above: Result Comment: Elec tronically Signed By: MAXX TURNER, Shaquille Steele\Date and Time Signed: 09/13/23 15:19 EST Ambulatory Visit Summaryon 0 2-23-2024 Ambulatory Visit Summary TRAVIS COBURN :1940 Visit Date:09/01/2023 Ambulatory Visit Instructions Your Care Team Attending Physician - MAXX TURNER, Shaquille Peter Primary Care Physician - Mayra Navarrete [...] TURNER, Nguyễn Peter Where: [facility] Emergency Department General Surgery Office/Clini c Noteon 09-01-2023 General [...] influenza virus vaccine, inactivated 07/26/2022 Recorded SARSCoV2 mRNA(xadrdhhrq-wjef-t sriramros) vac 11/17/2021 Recorded SARS-CoV-2 (COVID-19) mRNA BNT-162b2 vax 05/20/2021 Recorded 2023-03-20: TPV75 SARS-CoV-2 (COVID-19) mRNA BNT-162b2 vax 11/17/2020 Recorded SARS-CoV-2 (COVID-19) mRNA BNT-162b2 vax 10/29/2020 Recorded 2023-03-20: TPV75 SARS-CoV-2 (COVID-19) mRNA BNT-162b2 vax 10/27/2020 Recorded SARS-CoV-2 (COVID-19) mRNA BNT-162b2 vax 10/06/2020 Recorded 2023-03-20: TPV75 influenza virus vaccine, in (more content not included)... [facility] Comment on above: Result Comment: Elec tronically Signed By: MAXX TURNER, Shaquille Peter\.br\Date and Time Signed: 09/01/23 14:34 EST Pathology Noteon 08-28-2023 Pathology Note [id number] .00TIFF Normal [facility] Ambulatory Visit Summaryon 0 08-22-2023 Ambulatory Visit Summary TRAVIS COBURN :1940 Visit Date:08/22/2023 Ambulatory Visit Instructions Your Care Team Attending Physician - MAXX TURNER, Shaquille Peter Primary Care Physician - Mayra Navarrete [...] TURNER, Nguyễn Peter Where: [facility] Normal [facility] General Surgery Office/Clini c Noteon 08-22-2023 General [...] influenza virus vaccine, inactivated 07/26/2022 Recorded SARSCoV2 mRNA(ekhizyfnf-zkfz-p ucros) vac 11/17/2021 Recorded SARS-CoV-2 (COVID-19) mRNA BNT-162b2 vax 05/20/2021 Recorded 2023-03-20: TPV75 SARS-CoV-2 (COVID-19) mRNA BNT-162b2 vax 11/17/2020 Recorded SARS-CoV-2 (COVID-19) mRNA BNT-162b2 vax 10/29/2020 Recorded 2023-03-20: TPV75 SARS-CoV (more content not included)... Normal [facility] Comment on above: Result Comment: Elec tronically Signed By: MAXX TURNER, Shaquille Peter\.br\Date and Time Signed: 08/22/23 14:34 EST [place] 08-22-2023 L Specimen: [id number] Received: 08/23/23 Status: JUAN LUIS Carty Num: [id number] Spec Type: Surgical Subm Dr: Shaquille Lilly MD FACS Tissues: A Skin-Other than Cyst, tag, debridement or plastic repair (RT POST CALF) Procedures: HE/3, Gross/Micro L4 Age/ Patient Sex Location Account Attending Physician Travis Coburn 82/M LABELL [id number] Shaquille Lilly MD FACS SPEC NUM: [id number] RECD: 08/23/23 STATUS: JUAN LUIS CARTY NUM: [id number] APIRL: 08/22/23- DR: Shaquille Lilly MD FACS ENTERED: 08/23/23 [facility] DR: Lydia,Lab SPEC TYPE: Surgical DEPT: NICOLA TENA ENTERED BY: [id number] RECV BY: [id number] ORDERED: HE/3, Gross/Micro L4 ORDERED: HE/3, Gross/Micro [...] - Tips A2-A3 - Remainder CPT Codes 05798 -------- -------- Specimen: [id number] Received: 08/23/23 Status: JUAN LUIS Carty Num: [id number] Spec Type: Surgical Subm Dr: Shaquille Lilly MD [facility] Tissues: A Skin-Other than Cyst, tag, debridement or plastic repair (RT POST CALF) Procedures: HE/3, Gross/Micro L4 -------- Patient: Travis Coburn [id number] (Continued) -------- Signed (signature on file) Joon Bermudez MD 08/24/23 2207 Normal [facility] CBC WITH AUTO DIFFERENTIALon 08-17-2023 Basophils (Bld) [#/Vol] 0.04 10*3/uL Normal 0.00-0.20 [facility] Comment on above: Performed By: #### L [id number] #### [facility] ([facility]) [address] [place] [address] Basophils/100 WBC (Bld) 0.6 % Normal 0.0-1.0 [facility] Comment on above: Performed By: #### L [id number] #### [facility] ([facility]) [address] [place] [address] Eosinophils (Bld) [#/Vol] 0.12 10*3/uL Normal 0.00-0.50 [facility] Comment on above: Performed By: #### L [id number] #### [facility] ([facility]) [address] [facility] [place] [address] Eosinophils/100 WBC (Bld) 1.8 % Normal 0.0-6.0 [facility] Comment on above: Performed By: #### L [id number] #### [facility] ([facility]) [address] [place] [place] [address] Erythrocyte distribution width (RBC) [Ratio] 13.9 % Normal 11.5-15.0 [facility] Comment on above: Performed By: #### L [id number] #### [facility] ([facility]) [address] [place] [address] ERYTHROCYTE MEAN CORPUSCULAR HEMOGLOBIN CONCENTRATION (G/DL) BY AUTOMATED 34.0 g/dL Normal 32.0-35.0 [facility] Comment on above: Performed By: #### L [id number] #### [facility] ([facility]) [address] [place] [address] Hematocrit (Bld) [Volume fraction] 42.0 % Normal 39.0-55.0 [facility] Comment on above: Performed By: #### L [id number] #### [facility] ([facility]) [address] [place] [address] Hemoglobin (Bld) [Mass/Vol] 14.3 g/dL Normal 13.0-17.0 [facility] Comment on above: Performed By: #### L [id number] #### [facility] ([facility]) [address] [place] [address] Immature granulocytes (Bld) [#/Vol] 0.04 10*3/uL Normal 0.00-0.20 [facility] Comment on above: Performed By: #### L [id number] #### [facility] ([facility]) [address] [place] [address] Immature granulocytes/100 WBC (Bld) 0.6 % Normal 0.0-1.0 [facility] Comment on above: Performed By: #### L [id number] #### [facility] ([facility]) [address] [place] [address] Lymphocytes (Bld) [#/Vol] 1.67 10*3/uL Normal 1.20-4.00 [facility] Comment on above: Performed By: #### L [id number] #### [facility] ([facility]) [address] [facility] [place] [address] Lymphocytes/100 WBC (Bld) 25.6 % Normal 20.0-45.0 [facility] Comment on above: Performed By: #### L [id number] #### [facility] ([facility]) [address] [place] [address] MCH (RBC) [Entitic mass] 31.9 pg Normal 27.0-33.0 [facility] Comment on above: Performed By: #### L [id number] #### [facility] ([facility]) [address] [place] [address] MCV (RBC) [Entitic vol] 93.8 fL Normal 82.0-98.0 [facility] Comment on above: Performed By: #### L [id number] #### [facility] ([facility]) [address] [place] [address] Monocytes (Bld) [#/Vol] 0.49 10*3/uL Normal 0.10-1.00 [facility] Comment on above: Performed By: #### L [id number] #### [facility] ([facility]) [address] [place] [address] Monocytes/100 WBC (Bld) 7.5 % Normal 5.0-12.0 [facility] Comment on above: Performed By: #### L [id number] #### [facility] ([facility]) [address] [place] [address] Neutrophils (Bld) [#/Vol] 4.17 10*3/uL Normal 1.60-7.60 [facility] Comment on above: Performed By: #### L [id number] #### [facility] ([facility]) [address] [place] [address] Neutrophils/100 WBC (Bld) 63.9 % Normal 40.0-72.0 [facility] Comment on above: Performed By: #### L [id number] #### [facility] ([facility]) [address] [place] [address] NRBC (PER 100 WBCS) BY AUTOMATED COUNT 0.0 % Normal 0 [facility] Comment on above: Performed By: #### L [id number] #### [facility] ([facility]) [address] [place] [address] PLATELETS (10*3/UL) IN BLOOD AUTOMATED COUNT 186 10*3/uL Normal 150-400 [facility] Comment on above: Performed By: #### L [id number] #### [facility] ([facility]) [address] [place] [address] RBC (Bld) [#/Vol] 4.48 10*6/uL Normal 4.20-5.70 [facility] Comment on above: Performed By: #### L [id number] #### [facility] ([facility]) [address] [place] [address] WBC (Bld) [#/Vol] 6.53 10*3/uL Normal 4.00-10.60 [facility] Comment on above: Performed By: #### L [id number] #### [facility] ([facility]) [address] [place] [address] COMPREHENSIVE METABOLIC PANE [place] 08-17-2023 Albumin [Mass/Vol] 4.0 g/dL Normal 3.5-5.7 [facility] Comment on above: Performed By: #### L [id number] #### [facility] ([facility]) [address] [place] [address] ALP [Catalytic activity/Vol] 98 U/L Normal 34-104 [facility] Comment on above: Performed By: #### L [id number] #### [facility] ([facility]) [address] [place] [address] ALT [Catalytic activity/Vol] 25 U/L Normal 7-52 [facility] Comment on above: Performed By: #### L [id number] #### [facility] ([facility]) [address] [place] [address] Anion gap [Moles/Vol] 12 mmol/L Normal 7-20 [facility] Comment on above: Performed By: #### L [id number] #### [facility] ([facility]) [address] [place] [address] AST [Catalytic activity/Vol] 19 U/L Normal 13-39 [facility] Comment on above: Performed By: #### L [id number] #### [facility] ([facility]) [address] [place] [address] Bilirubin [Mass/Vol] 0.5 mg/dL Normal 0.3-1.0 [facility] Comment on above: Performed By: #### L [id number] #### [facility] ([facility]) [address] [place] [address] Calcium [Mass/Vol] 8.8 mg/dL Normal 8.6-10.3 [facility] Comment on above: Performed By: #### L [id number] #### [facility] ([facility]) [address] [place] [address] Chloride [Moles/Vol] 102 mmol/L Normal 98-107 [facility] Comment on above: Performed By: #### L [id number] #### [facility] ([facility]) [address] [place] [address] CO2 [Moles/Vol] 27 mmol/L Normal 21-31 [facility] Comment on above: Performed By: #### L [id number] #### [facility] ([facility]) [address] [place] [address] Creatinine [Mass/Vol] 1.12 mg/dL Normal 0.70-1.30 [facility] Comment on above: Performed By: #### L [id number] #### [facility] ([facility]) [address] [place] [address] GLOMERULAR FILTRATION RATE ML/MIN/1.73 SQ M.PREDICTED 66.0 mL/min/1.73m*2 Normal >60.0 [facility] Comment on above: Result Comment: [facility]???s estimated glomerular filtration rate (eGFR) will no [...] individuals. Performed By: #### L [id number] #### [facility] ([facility]) [address] [place] [address] Glucose [Mass/Vol] 95 mg/dL Normal 70-100 [facility] Comment on above: Performed By: #### L [id number] #### [facility] ([facility]) [address] [place] [address] Potassium [Moles/Vol] 3.7 mmol/L Normal 3.5-5.1 [facility] Comment on above: Performed By: #### L [id number] #### [facility] ([facility]) [address] [place] [address] Protein [Mass/Vol] 6.6 g/dL Normal 6.0-8.3 [facility] Comment on above: Performed By: #### L [id number] #### [facility] ([facility]) [address] [place] [address] Sodium [Moles/Vol] 137 mmol/L Normal 136-145 [facility] Comment on above: Performed By: #### L [id number] #### [facility] ([facility]) [address] [place] [address] Urea nitrogen [Mass/Vol] 16 mg/dL Normal 7-25 [facility] Comment on above: Performed By: #### L [id number] #### [facility] ([facility]) [address] [place] [address] UREA NITROGEN/CREATININ E (MASS RATIO) IN SER/PLAS 14.3 Normal [facility] Comment on above: Performed By: #### L [id number] #### [facility] ([facility]) [address] [place] [address] Follow-Upon 08-17-2023 Follow-Up [id number] Travis Coburn 1940 M Date Provider Department Center 08/17/2023 Diane-LUIS DANIEL BRUNNER [facility] No family history on file Level of Service:55262 UT OFFICE/OUTPATIENT ESTABLISHED MOD MDM 30 MIN Reason for Visit and Comments: Follow-up [655440] - 6 mo follow up [facility] Orders Onlyon 08-17-2023 Orders Only [id number] Travis Coburn 1940 M Date Provider Department Center 08/17/2023 JOON VAZQUEZ [facility] R[facility]UM [facility] No family history on file [facility] Office Visiton 08-16-2023 Follow-up visit [id number] Travis Coburn 1940 M Date Provider Department Center 08/16/2023 Annalisa-TOO [place] [facility] NEPHRO Comprehensiv No family history on file Level of Service:77006 UT OFFICE/OUTPATIENT NEW MODERATE MDM 45 MINUTES (GC) Reason for Visit and Comments: New Patient [632] [facility] Ambulatory Visit Summaryon 0 07-18-2023 Ambulatory Visit Summary TRAVIS COBURN :1940 Visit Date:07/18/2023 Ambulatory Visit Instructions Your Care Team Attending Physician - MAXX TURNER, Shaquille Peter Primary Care Physician - Landon TURNER, [...] Monday 1:40 PM EST With: MAXX TURNER, Shaquille Peter Where: General Surgery Maxx/Deisy [place] Normal [address] [place] [address]- \.br\ Medications\.br\ What How Much When Instructions\.br\ [...] for choosing us for your care.\.br\ \.br\ [facility] Physician Referralon 024 Physician Referral .[phone]. 1 [id number] .00TIFF Normal [facility] Physician Referral .[phone]. 1 [id number] .00TIFF Normal [facility] 36on 06-13-2023 36 New order faxed to [facility] Also Options explained to Patient, who expressed understanding Normal [facility] 36 Pt called (very anxious) to let you know that the Nephrology office can not see him until 08/01/23. Normal [facility] Orders Onlyon 06-13-2023 Orders Only [id number] Travis Coburn 1940 M Date Provider Department Center 06/13/2023 317-LUIS DANIEL BRUNNER M [facility]UM [facility] No family history on file Normal [facility] Telephoneon 06-13-2023 Telephone [id number] Travis Coburn 1940 M Date Provider Department Center 06/13/2023 [id number]-[facility] Eloise He[facility] No family history on file Normal [facility] 36on 06-09-2023 36 Could you please shayla l patient Normal [facility] Orders Onlyon 06-09-2023 Orders Only [id number] Travis Coburn 1940 M Date Provider Department Center 06/09/2023 [id number] [facility] R[facility]UM Eloise Heal No family history on file Normal [facility] ESon 04-05-2023 [facility] FOR SURGICAL PROCEDURES RADRPT Radiology exam is complete. No Radiologist dictation. Please follow up with ordering provider. Final result Normal [facility] SURGICALon 04-05-2023 SURGICAL [place] [facility] TRAVIS COBURN [id number] Assoc. Page 1 of 1 [address] [place] [address] PROC: 04/05/2023 [facility] RECV: 04/06/[address] RPTD: 04/07/2023 [place] [address] LOC: NAT ACCT: [id number] SEX: M : 1940 AGE: 82 Y [...] developed and its performance characteristics determined by [facility]. It has not been cleared or approved by the U.S. Food and Drug Administration. Pursuant to the requirements of CLIA, this laboratory has established and verified the test's accuracy and precision. Additional information about this type of test is available upon request. [id number] REJI FITZGERALD M.D., F.C.A.P. 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 Page 1 of 1\X0D0A\[address]\X0D0A\[place] [address]\X0D0A\ PROC: 04/05/2023\X0D0A\NVML/[facility] RECV: 04/06/2023\X0D0A\[address] RPTD: 04/07/2023\[place]0D0A\[place] [address]\X0D0A\ LOC: WYA\X0D0A\ ACCT: [id number] SEX: M\X0D0A\ : 1940 AGE: 82 Y\X0D0A\X0D0A\ [...] was developed and its performance characteristics determined\X0D0A\by [facility]. It has not been cleared or\X0D0A\approved by the U.S. Food and Drug Administration. Pursuant to the\X0D0A\requirements of CLIA, this laboratory has established and verified the\X0D0A\test's accuracy and precision. Additional information about this type\X0D0A\of test is available upon request.\X0D0A\X0D0A\59883\X0D0A\94243\X0D0A\26224\X0D0A\X0D0A\X 0D0A\ \X0D0A\ REJI FITZGERALD M.D., F.C.A.P.\X0D0A\X0D0A\X0D0A\NVML/ [facility] Printed on: 04/07/2023\X0D0A\[address]\X0D0A\[place], [place] [address]\X0D0A\Original print date: 04/07/2023 Performed By: #### 1 [id number] #### [facility] See Report Ambulatory Visit Summaryon 0 03-20-2023 Ambulatory Visit Summary TRAVIS COBURN Vicky :1940 Visit Date:03/20/2023 Ambulatory Visit Instructions Your Diagnosis Nocturia Urinary urgency BPH with urinary obstruction History of kidney stones Impotence Tests Performed Urnls Dip Stick Auto w/o Microscopy POC [id number] Your Care Team Attending Physician - MIRIAN [...] TURNER, Nguyễn Peter Where: [facility] Patient Educationon 03-20-20 Patient Education Urology Benign [...] Follow these instructions at home: ? Take nwtv-vgw-bpowbnk and prescription medicines only as told by [...] the medicine (more content not included)... 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 Reports he has [...] [facility] [address], [place] [id number] [phone] Additional Instructions: Patient Education Benign Prostatic Hyperplasia [...] data Procedure/ (more content not included)... Normal [facility] Comment on above: Result Comment: Elec tronically Signed By: Nguyễn VELA MD\.br\Date and Time Signed: 03/20/23 15:41 EDT\.br\Electronically Co-Signed By: Jackeline Graff\.br\Date and Time Co-Signed: 03/20/23 15:38 EDT INSULINon 10-26-2022 Insulin 34.8 uIU/mL Critically high 2.6-24.9 [facility] Comment on above: Performed By: #### C BC #### [facility] [address] [place] [address] Dr. Layla Barrera CBC AUTO DIFFon 10-25-2022 BASO # 0.0 103/ul Normal 0.0-0.1 [facility] Comment on above: Performed By: #### C BC #### [facility] [address] [place] [address] Dr. Layla Barrera Basophils/100 WBC (Bld) 0.6 % Normal 0.2-2.0 [facility] Comment on above: Performed By: #### C BC #### [facility] [address] [place] [address] Dr. Layla Barrera EO # 0.3 103/ul Normal 0.0-0.7 [facility] Comment on above: Performed By: #### C BC #### [facility] [address] [address] [address] Layla Barrera Eosinophils/100 WBC (Bld) 4.2 % Normal 0.9-7.0 [facility] Comment on above: Performed By: #### C BC #### [facility] [address] [place] [address] Dr. Layla Barrera Erythrocyte distribution width (RBC) [Ratio] 13.6 % Normal 11.0-15.0 [facility] Comment on above: Performed By: #### C BC #### [facility] [address] [place] [address] Dr. Layla Barrera Hematocrit (Bld) [Volume fraction] 42.6 % Normal 42.0-54.0 [facility] Comment on above: Performed By: #### C BC #### [facility] [address] [place] [address] Dr. Layla Barrera Hemoglobin (Bld) [Mass/Vol] 14.7 g/dL Normal 14.0-18.0 [facility] Comment on above: Performed By: #### C BC #### [facility] [address] [place] [address] Dr. Layla Barrera IG # 0.02 10e3/ul Normal 0.00-0.03 [facility] Comment on above: Performed By: #### C BC #### [facility] [address] [place] [address] Dr. Layla Barrera IG % 0.3 % Normal 0.0-0.5 [facility] Comment on above: Performed By: #### C BC #### [facility] [address] [place] [address] Dr. Layla Barrera LYMPH # 2.1 103/ul Normal 1.2-3.8 [facility] Comment on above: Performed By: #### C BC #### [facility] [address] [place] [address] Dr. Layla Barrera Lymphocytes/100 WBC (Bld) 30.1 % Normal 20.5-60.0 [facility] Comment on above: Performed By: #### C BC #### [facility] [address] [place] [address] Dr. Layla Barrera MANUAL DIFF REQ NO Normal [facility] Comment on above: Performed By: #### C BC #### [facility] [address] [place] [address] Dr. Layla Barrera MCH (RBC) [Entitic mass] 32.1 pg Normal 25.9-34.0 [facility] Comment on above: Performed By: #### C BC #### [facility] [address] [place] [address] Dr. Layla Barrera MCHC (RBC) [Mass/Vol] 34.5 g/dL Normal 29.9-35.2 [facility] Comment on above: Performed By: #### C BC #### [facility] [address] [place] [address] Dr. Layla Barrera MCV (RBC) [Entitic vol] 93.0 fL Normal 80.0-94.0 [facility] Comment on above: Performed By: #### C BC #### [facility] [address] [address] [address] Layla Barrera MONO # 0.6 103/ul Normal 0.3-0.8 [facility] Comment on above: Performed By: #### C BC #### [facility] [address] [address] [address] Layla Barrera Monocytes/100 WBC (Bld) 8.5 % Normal 1.7-12.0 [facility] Comment on above: Performed By: #### C BC #### [facility] [address] [address] [address] Layla Barrera NEUT # 3.9 103/ul Normal 1.4-6.5 [facility] Comment on above: Performed By: #### C BC #### [facility] [address] [place] [address] Dr. Layla Barrera Neutrophils/100 WBC (Bld) 56.3 % Normal 43.0-75.0 [facility] Comment on above: Performed By: #### C BC #### [facility] [address] [place] [address] Dr. Layla Barrera Platelet mean volume (Bld) [Entitic vol] 10.6 fL Normal 9.5-13.5 [facility] Comment on above: Performed By: #### C BC #### [facility] [address] [place] [address] Dr. Layla Barrera PLT 168 103/ul Normal 150-450 [facility] Comment on above: Performed By: #### C BC #### [facility] [address] [address] [address] Layla Barrera RBC 4.58 106/ul Critically low 4.70-6.10 [facility] Comment on above: Performed By: #### C BC #### [facility] [address] [address] [address] Layla Barrera WBC 7.0 103/ul Normal 4.0-11.0 [facility] Comment on above: Performed By: #### C BC #### [facility] [address] [address] [address] Layla Barrera FREE THYROXINE INDEX T7on FTI 2.21 Normal 1.30-4.50 [facility] Comment on above: Performed By: #### C BC #### [facility] [address] [address] [address] Layla Barrera T3U 33.0 % Normal 33.0-40.0 [facility] Comment on above: Performed By: #### C BC #### [facility] [address] [address] [address] Layla Barrera T4 [Mass/Vol] 6.70 ug/dL Normal 4.50-12.10 [facility] Comment on above: Performed By: #### C BC #### [facility] [address] [address] [address] Layla Barrera GLYCOHEMOGLOBIN A1Con 2022 ADA RECOMMENDATION SEE BELOW Normal [facility] Comment on above: Result Comment: ADA RECOMMENDED LIMIT 4.0 - 6.0 ADA THERAPEUTIC TARGET < 7.0 ACTION SUGGESTED > 7.0 Performed By: #### G IPANEL #### [facility] [address] [address] [address] Lyala Barrera Glucose [Mass/Vol] 146 mg/dL Normal [facility] Comment on above: Performed By: #### G IPANEL #### [facility] [address] [address] [address] Layla Barrera HbA1c (Bld) [Mass fraction] 6.7 % Critically high 4.5-6.2 [facility] Comment on above: Performed By: #### G IPANEL #### [facility] [address] [address] [address] Layla Barrera IRONon 10-25-2022 Iron [Mass/Vol] 82.0 ug/dL Normal 65.0-175.0 [facility] Comment on above: Performed By: #### I SHANIQUA, VITKENNY, VITB12 #### [facility] [address] [address] [address] Layla Barrera LIPID PROFILEon 10-25-2022 CHOL-HDL RATIO NORM SEE BELOW Normal [facility] Comment on above: Result Comment: 3.3 - 4.4 LOW RISK 4.4 - 7.1 AVERAGE RISK 7.1 - 11.0 MODERATE RISK >11.0 HIGH RISK Performed By: #### C BC #### [facility] [address] [address] [address] Layla Barrera Cholesterol [Mass/Vol] 201 mg/dL Critically high <=200 [facility] Comment on above: Performed By: #### C BC #### [facility] [address] [address] [address] Layla Barrera Cholesterol in HDL [Mass/Vol] 46 mg/dL Normal 40-60 [facility] Comment on above: Performed By: #### C BC #### [facility] [address] [address] [address] Layla Barrera Cholesterol in LDL [Mass/Vol] 133.4 mg/dL Normal [facility] Comment on above: Performed By: #### C BC #### [facility] [address] [address] [address] Layla Barrera Cholesterol.total/ Cholesterol in HDL [Mass ratio] 4.4 {ratio} Normal [facility] Comment on above: Performed By: #### C BC #### [facility] [id number] Layla Barrera HDL NORMAL > or = 60 mg/dl - LO W CARDIOVASCULAR RISK <40 mg/dl - HIGH CARDIOVASCULAR RISK Normal [facility] Comment on above: Performed By: #### C BC #### [facility] [address] [address] [address] Layla Barrera LDL CALC NORMAL SEE BELOW Normal [facility] Comment on above: Result Comment: <100 mg/dl OPTIMAL 100 - 129 mg/dl NEAR OR ABOVE OPTIMAL 130 - 159 mg/dl BORDERLINE HIGH 160 - 189 mg/dl HIGH >190 mg/dl VERY HIGH Performed By: #### C BC #### [facility] [id number] Layla Barrera Triglyceride [Mass/Vol] 108 mg/dL Normal <=150 [facility] Comment on above: Performed By: #### C BC #### [facility] [address] [address] [address] Layla Barrera VLDL CALC 21.6 mg/dL Normal [facility] Comment on above: Performed By: #### C BC #### [facility] [address] [address] [address] Layla Barrera PROF 14(COMP METB)on 023 Albumin [Mass/Vol] 3.6 g/dL Normal 3.4-5.0 [facility] Comment on above: Performed By: #### C BC #### [facility] [address] [place] [address] Dr. Layla Barrera Albumin/Globulin [Mass ratio] 1.0 {ratio} Normal [facility] Comment on above: Performed By: #### C BC #### [facility] [address] [place] [address] Dr. Layla Barrera ALP [Catalytic activity/Vol] 101 U/L Normal 46-116 [facility] Comment on above: Performed By: #### C BC #### [facility] [address] [place] [address] Dr. Layla Barrera ALT [Catalytic activity/Vol] 42 U/L Normal 16-63 [facility] Comment on above: Performed By: #### C BC #### [facility] [address] [place] [address] Dr. Layla Barrera Anion gap [Moles/Vol] 12.8 mmol/L Normal [facility] Comment on above: Performed By: #### C BC #### [facility] [address] [place] [address] Dr. Layla Barrera AST [Catalytic activity/Vol] 26 U/L Normal 15-37 [facility] Comment on above: Performed By: #### C BC #### [facility] [address] [place] [address] Dr. Layla Barrera Bilirubin [Mass/Vol] 0.7 mg/dL Normal 0.2-1.0 [facility] Comment on above: Performed By: #### C BC #### [facility] [address] [address] [address] Layla Barrera Calcium [Mass/Vol] 8.9 mg/dL Normal 8.5-10.1 [facility] Comment on above: Performed By: #### C BC #### [facility] [address] [address] [address] Layla Barrera Chloride [Moles/Vol] 103 mmol/L Normal 98-107 [facility] Comment on above: Performed By: #### C BC #### [facility] [address] [address] [address] Layla Barrera CO2 [Moles/Vol] 26.3 mmol/L Normal 21.0-32.0 [facility] Comment on above: Performed By: #### C BC #### [facility] [address] [place] [address] Dr. Layla Barrera Creatinine [Mass/Vol] 1.24 mg/dL Normal 0.70-1.30 [facility] Comment on above: Performed By: #### C BC #### [facility] [address] [place] [address] Dr. Layla Barrera EGFR-AF PERUVIAN >60 Normal >=60 [facility] Comment on above: Performed By: #### C BC #### [facility] [address] [place] [address] Dr. Layla Barrera EGFR-NON AF PERUVIAN 56 mL/min/1.73m2 Critically low >=60 [facility] Comment on above: Performed By: #### C BC #### [facility] [address] [place] [address] Dr. Layla Barrera Globulin (S) [Mass/Vol] 3.5 g/dL Normal [facility] Comment on above: Performed By: #### C BC #### [facility] [address] [place] [address] Dr. Layla Barrera Glucose [Mass/Vol] 147 mg/dL Critically high 74-106 [facility] Comment on above: Performed By: #### C BC #### [facility] [address] [place] [address] Dr. Layla Barrera Potassium [Moles/Vol] 4.1 mmol/L Normal 3.5-5.1 [facility] Comment on above: Performed By: #### C BC #### [facility] [address] [place] [address] Dr. Layla Barrera Protein [Mass/Vol] 7.1 g/dL Normal 6.4-8.2 [facility] Comment on above: Performed By: #### C BC #### [facility] [address] [address] [address] Layla Barrera Sodium [Moles/Vol] 138 mmol/L Normal 136-145 [facility] Comment on above: Performed By: #### C BC #### [facility] [address] [place] [address] Dr. Layla Barrera Urea nitrogen [Mass/Vol] 18.0 mg/dL Normal 7.0-18.0 [facility] Comment on above: Performed By: #### C BC #### [facility] [address] [place] [address] Dr. Layla Barrera Urea nitrogen/Creatinin e [Mass ratio] 14.5 mg/mg Normal [facility] Comment on above: Performed By: #### C BC #### [facility] [address] [place] [address] Dr. Layla Barrera TSHon 10-25-2022 TSH 2.495 uIU/mL Normal 0.358-3.740 [facility] Comment on above: Performed By: #### C BC #### [facility] [address] [place] [address] Dr. Layla Barrera URIC ACID SERUMon 10-25-2022 Urate [Mass/Vol] 8.1 mg/dL Critically high 3.5-7.2 [facility] Comment on above: Performed By: #### C BC #### [facility] [address] [place] [address] Dr. Layla Barrera VITAMIN B12on 10-25-2022 Cobalamin (Vitamin B12) [Mass/Vol] 689.0 pg/mL Normal 193.0-986.0 [facility] Comment on above: Performed By: #### I SHANIQUA, VITAD, VITB12 #### [facility] [address] [address] [address] Layla Barrera VITAMIN D 25 OHon 10-25-2022 VIT D 25-OH 17.0 ng/mL Normal [facility] Comment on above: Performed By: #### I SHANIQUA, VITAD, VITB12 #### [facility] [address] [address] [address] Layla Barrera VIT D RANGES SEE BELOW Normal [facility] Comment on above: Result Comment: <20 ng/mL Vit D deficient 20 - <30 ng/mL Vit D insufficient 30 - 100 ng/mL Vit D sufficient >100 ng/mL Potential Toxicity Performed By: #### I SHANIQUA VITAD, VITB12 #### [facility] [address] [address] [address] Layla Barrera PSA, FREE AND TOTAL RATIOon 06-22-2022 % Free PSA 49.9 % Normal [facility] Comment on above: Result Comment: The table [...] SAFREE #### [facility] [address] [place], [place] [id number] Dr. Layla Barrera Prostate specific Ag [Mass/Vol] 6.8 ng/mL Critically high 0.0-4.0 [facility] Comment on above: Result Comment: Nikki CARTER methodology. . According to the [place] [employer], Serum PSA should decrease and [...] SAFREE #### [facility] [address] [place] [address] Dr. Layla Barrera PSA, Free 3.39 ng/mL Normal N/A [facility] Comment on above: Result Comment: Nikki bassett ECLIA methodology. Performed By: #### P SAFREE #### [facility] [address] [place] [address] Dr. Layla Barrera H PYLORI ANTIBODY IGGon H. PYLORI IGG ABS 0.96 Index Value Critically high 0.00-0. 79 [facility] Comment on above: Result Comment: Nega tive <0.80 Equivocal 0.80 - 0.89 Positive >0.89 Performed By: #### C BC #### [facility] [address] [place] [address] Dr. Layla Barrera INSULINon 03-12-2022 Insulin 38.7 uIU/mL Critically high 2.6-24.9 The [facility] Comment on above: Performed By: #### G IPANEL #### [facility] [address] [place] [address] Dr. Layla Barrera AMYLASEon 03-11-2022 Amylase [Catalytic activity/Vol] 54 U/L Normal 25-115 [facility] Comment on above: Performed By: #### G IPANEL #### [facility] [address] [place] [address] Dr. Layla Barrera CBC AUTO DIFFon 03-11-2022 BASO # 0.1 103/ul Normal 0.0-0.1 [facility] Comment on above: Performed By: #### C BC #### [facility] [address] [place] [address] Dr. Layla Barrera Basophils/100 WBC (Bld) 0.7 % Normal 0.2-2.0 [facility] Comment on above: Performed By: #### C BC #### [facility] [address] [place] [address] Dr. Layla Barrera EO # 0.3 103/ul Normal 0.0-0.7 [facility] Comment on above: Performed By: #### C BC #### [facility] [address] [place] [address] Dr. Layla Barrera Eosinophils/100 WBC (Bld) 3.6 % Normal 0.9-7.0 [facility] Comment on above: Performed By: #### C BC #### [facility] [address] [place] [address] Dr. Layla Barrera Erythrocyte distribution width (RBC) [Ratio] 13.2 % Normal 11.0-15.0 [facility] Comment on above: Performed By: #### C BC #### [facility] [address] [place] [address] Dr. Layla Barrera Hematocrit (Bld) [Volume fraction] 43.0 % Normal 42.0-54.0 [facility] Comment on above: Performed By: #### C BC #### [facility] [address] [place] [address] Dr. Layla Barrera Hemoglobin (Bld) [Mass/Vol] 14.6 g/dL Normal 14.0-18.0 [facility] Comment on above: Performed By: #### C BC #### [facility] [address] [place] [address] Dr. Layla Barrera IG # 0.03 10e3/ul Normal 0.00-0.03 [facility] Comment on above: Performed By: #### C BC #### [facility] [address] [place] [address] Dr. Layla Barrera IG % 0.4 % Normal 0.0-0.5 [facility] Comment on above: Performed By: #### C BC #### [facility] [address] [place] [address] Dr. Layla Barrera LYMPH # 3.0 103/ul Normal 1.2-3.8 [facility] Comment on above: Performed By: #### C BC #### [facility] [address] [place] [address] Dr. Layla Barrera Lymphocytes/100 WBC (Bld) 41.2 % Normal 20.5-60.0 [facility] Comment on above: Performed By: #### C BC #### [facility] [address] [place] [address] Dr. Layla Barrera MANUAL DIFF REQ NO Normal The [facility] Comment on above: Performed By: #### C BC #### [facility] [address] [place] [address] Dr. Layla Barrera MCH (RBC) [Entitic mass] 31.8 pg Normal 25.9-34.0 The [facility] Comment on above: Performed By: #### C BC #### [facility] [address] [place] [address] Dr. Layla Barrera MCHC (RBC) [Mass/Vol] 34.0 g/dL Normal 29.9-35.2 The [facility] Comment on above: Performed By: #### C BC #### [facility] [address] [place] [address] Dr. Layla Barrera MCV (RBC) [Entitic vol] 93.7 fL Normal 80.0-94.0 [facility] Comment on above: Performed By: #### C BC #### [facility] [address] [place] [address] Dr. Layla Barrera MONO # 0.6 103/ul Normal 0.3-0.8 [facility] Comment on above: Performed By: #### C BC #### [facility] [address] [place] [address] Dr. Layla Barrera Monocytes/100 WBC (Bld) 7.9 % Normal 1.7-12.0 The [facility] Comment on above: Performed By: #### C BC #### [facility] [address] [place] [address] Dr. Layla Barrera NEUT # 3.3 103/ul Normal 1.4-6.5 The [facility] Comment on above: Performed By: #### C BC #### [facility] [address] [place] [address] Dr. Layla Barrera Neutrophils/100 WBC (Bld) 46.2 % Normal 43.0-75.0 [facility] Comment on above: Performed By: #### C BC #### [facility] [address] [address] [address] Layla Barrera Platelet mean volume (Bld) [Entitic vol] 11.1 fL Normal 9.5-13.5 [facility] Comment on above: Performed By: #### C BC #### [facility] [address] [address] [address] Layla Barrera PLT 171 103/ul Normal 150-450 [facility] Comment on above: Performed By: #### C BC #### [facility] [address] [place] [address] Dr. Layla Barrera RBC 4.59 106/ul Critically low 4.70-6.10 [facility] Comment on above: Performed By: #### C BC #### [facility] [address] [place] [address] Dr. Layla Barrera WBC 7.2 103/ul Normal 4.0-11.0 [facility] Comment on above: Performed By: #### C BC #### [facility] [address] [place] [address] ABD/PELV W CONon [...] Normal The [facility] GI PANEL (PCR)on 03-11-2022 Adenovirus F 40/41 Not detected Normal NOT DETECTED [facility] Comment on above: Performed By: #### G IPANEL #### [facility] [address] [place] [address] Dr. Layla Barrera Astrovirus Not detected Normal NOT DETECTED [facility] Comment on above: Performed By: #### G IPANEL #### [facility] [address] [place] [address] Dr. Layla Barrera C. Diff toxin A/B Not detected Normal NOT DETECTED The [facility] Comment on above: Performed By: #### G IPANEL #### [facility] [address] [place] [address] Dr. Layla Barrera Campylobacter Not detected Normal NOT DETECTED [facility] Comment on above: Performed By: #### G IPANEL #### [facility] [address] [place] [address] Dr. Layla Barrera Cryptosporidium Not detected Normal NOT DETECTED The [facility] Comment on above: Performed By: #### G IPANEL #### [facility] [address] [place] [address] Dr. Layla Barrera Cyclos. Cayetanensis Not detected Normal NOT DETECTED The [facility] Comment on above: Performed By: #### G IPANEL #### [facility] [address] [address] [address] Layla Barrera E. Coli O157 Not Applicable Normal Not Applicable The [facility] Comment on above: Performed By: #### G IPANEL #### [facility] [address] [place] [address] Dr. Layla Barrera E. histolytica Not detected Normal NOT DETECTED [facility] Comment on above: Performed By: #### G IPANEL #### [facility] [address] [place] [address] Dr. Layla Barrera EAEC Not detected Normal NOT DETECTED [facility] Comment on above: Performed By: #### G IPANEL #### [facility] [address] [place] [address] Dr. Layla Barrera EIEC Not detected Normal NOT DETECTED [facility] Comment on above: Performed By: #### G IPANEL #### [facility] [address] [address] [address] Layla Barrera EPEC Detected Abnormal NOT DETECTED The [facility] Comment on above: Performed By: #### G IPANEL #### [facility] [address] [place] [address] Dr. Layla Barrera ETEC Not detected Normal NOT DETECTED [facility] Comment on above: Performed By: #### G IPANEL #### [facility] [address] [place] [address] Dr. Layla Hennessy Lamblia Not detected Normal NOT DETECTED [facility] Comment on above: Performed By: #### G IPANEL #### [facility] [address] [place] [address] Dr. Layla STEINBERG CONTROLS PASSED Normal The [facility] Comment on above: Performed By: #### G IPANEL #### [facility] [address] [place] [address] Dr. Layla ALEXIS [facility] HEADER GI PANEL BACTERIA Normal [facility] Comment on above: Performed By: #### G IPANEL #### [facility] [address] [place] [address] Dr. Layla SARAVIA ECOLI GI PANEL DIARRHEAGENIC E.COLI / SHIGELLA Normal [facility] Comment on above: Performed By: #### G IPANEL #### [facility] [address] [place] [address] Dr. Layla SARAVIA INFO SEE BELOW Normal [facility] Comment on above: Result Comment: EAEC - Enteroaggregative E. Coli EPEC- Enteropathogenic E. Coli ETEC- Enterotoxigenic E. Coli lt/st STEC- Shigella-like toxin-producing E. Coli stx1/stx2 EIEC- Shigella/Enteroinvasive E. Coli Performed By: #### G IPANEL #### [facility] [address] [place] [address] Dr. Layla SARAVIA PARASITES GI PANEL PARASITES Normal The [facility] Comment on above: Performed By: #### G IPANEL #### [facility] [address] [place] [address] Dr. Layla SARAVIA VIRUS GI PANEL VIRUSES Normal The [facility] Comment on above: Performed By: #### G IPANEL #### [facility] [address] [place] [address] Dr. Layla Barrera Norovirus GI/GII Not detected Normal NOT DETECTED The [facility] Comment on above: Performed By: #### G IPANEL #### [facility] [address] [place] [address] Dr. Layla Barrera P. Shigelloides Not detected Normal NOT DETECTED The [facility] Comment on above: Performed By: #### G IPANEL #### [facility] [address] [place] [address] Dr. Layla Barrera Rotavirus A Not detected Normal NOT DETECTED [facility] Comment on above: Performed By: #### G IPANEL #### [facility] [address] [place] [address] Dr. Layla Barrera Salmonella Not detected Normal NOT DETECTED [facility] Comment on above: Performed By: #### G IPANEL #### [facility] [address] [place] [address] Dr. Layla Barrera Sapovirus Not detected Normal NOT DETECTED [facility] Comment on above: Performed By: #### G IPANEL #### [facility] [address] [place] [address] Dr. Layla Barrera STEC Not detected Normal NOT DETECTED [facility] Comment on above: Performed By: #### G IPANEL #### [facility] [address] [place] [address] Dr. Layla Barrera Vibrio Not detected Normal NOT DETECTED [facility] Comment on above: Performed By: #### G IPANEL #### [facility] [address] [address] [address] Layla Barrera Vibrio Cholera Not detected Normal NOT DETECTED [facility] Comment on above: Performed By: #### G IPANEL #### [facility] [address] [address] [address] Layla Barrera Y. Enterocolitica Not detected Normal NOT DETECTED The [facility] Comment on above: Performed By: #### G IPANEL #### [facility] [address] [place] [address] Dr. Layla Barerra GLYCOHEMOGLOBIN A1Con 2021 ADA RECOMMENDATION SEE BELOW Normal [facility] Comment on above: Result Comment: ADA RECOMMENDED LIMIT 4.0 - 6.0 ADA THERAPEUTIC TARGET < 7.0 ACTION SUGGESTED > 7.0 Performed By: #### G IPANEL #### [facility] [address] [place] [address] Dr. Layla Barrera Glucose [Mass/Vol] 134 mg/dL Normal [facility] Comment on above: Performed By: #### G IPANEL #### [facility] [address] [place] [address] Dr. Layla Barrera HbA1c (Bld) [Mass fraction] 6.3 % Critically high 4.5-6.2 [facility] Comment on above: Performed By: #### G IPANEL #### [facility] [address] [place] [address] Dr. Layla Barrera LIPASEon 03-11-2022 Lipase [Catalytic activity/Vol] 82.0 U/L Normal 73.0-393.0 [facility] Comment on above: Performed By: #### G IPANEL #### [facility] [address] [place] [address] Dr. Layla Barrera LIPID PROFILEon 03-11-2022 CHOL-HDL RATIO NORM SEE BELOW Normal [facility] Comment on above: Result Comment: 3.3 - 4.4 LOW RISK 4.4 - 7.1 AVERAGE RISK 7.1 - 11.0 MODERATE RISK >11.0 HIGH RISK Performed By: #### G IPANEL #### [facility] [address] [address] [address] Layla Barrera Cholesterol [Mass/Vol] 216 mg/dL Critically high <=200 The [facility] Comment on above: Performed By: #### G IPANEL #### [facility] [address] [address] [address] Layla Barrera Cholesterol in HDL [Mass/Vol] 47 mg/dL Normal 40-60 [facility] Comment on above: Performed By: #### G IPANEL #### [facility] [address] [address] [address] Layla Barrera Cholesterol in LDL [Mass/Vol] 134.4 mg/dL Normal [facility] Comment on above: Performed By: #### G IPANEL #### [facility] [address] [address] [address] Layla Barrera Cholesterol.total/ Cholesterol in HDL [Mass ratio] 4.6 {ratio} Normal [facility] Comment on above: Performed By: #### G IPANEL #### [facility] [address] [address] [address] Layla Barrera HDL NORMAL > or = 60 mg/dl - LO W CARDIOVASCULAR RISK <40 mg/dl - HIGH CARDIOVASCULAR RISK Normal [facility] Comment on above: Performed By: #### G IPANEL #### [facility] [address] [address] [address] Layla Barrera LDL CALC NORMAL SEE BELOW Normal [facility] Comment on above: Result Comment: <100 mg/dl OPTIMAL 100 - 129 mg/dl NEAR OR ABOVE OPTIMAL 130 - 159 mg/dl BORDERLINE HIGH 160 - 189 mg/dl HIGH >190 mg/dl VERY HIGH Performed By: #### G IPANEL #### [facility] [address] [address] [address] Layla Barrera Triglyceride [Mass/Vol] 173 mg/dL Critically high <=150 The [facility] Comment on above: Performed By: #### G IPANEL #### [facility] [address] [address] [address] Layla Barrera VLDL CALC 34.6 mg/dL Normal [facility] Comment on above: Performed By: #### G IPANEL #### [facility] [address] [place] [address] Dr. Layla Barrera OCC BLD IMMUNO SCREENon OCCULT BLOOD Negative Normal NEGATIVE [facility] Comment on above: Performed By: #### C BC #### [facility] [address] [place] [address] Dr. Layla Barrera PROF 14(COMP METB)on 022 Albumin [Mass/Vol] 3.7 g/dL Normal 3.4-5.0 [facility] Comment on above: Performed By: #### C BC #### [facility] [address] [place] [address] Dr. Layla Barrera Albumin/Globulin [Mass ratio] 1.1 {ratio} Normal [facility] Comment on above: Performed By: #### C BC #### [facility] [address] [place] [address] Dr. Layla Barrera ALP [Catalytic activity/Vol] 90 U/L Normal 46-116 [facility] Comment on above: Performed By: #### C BC #### [facility] [address] [place] [address] Dr. Layla Barrera ALT [Catalytic activity/Vol] 66 U/L Critically high 16-63 [facility] Comment on above: Performed By: #### C BC #### [facility] [address] [place] [address] Dr. Layla Barrera Anion gap [Moles/Vol] 12.8 mmol/L Normal [facility] Comment on above: Performed By: #### C BC #### [facility] [address] [place] [address] Dr. Layla Barrera AST [Catalytic activity/Vol] 32 U/L Normal 15-37 [facility] Comment on above: Performed By: #### C BC #### [facility] [address] [place] [address] Dr. Layla Barrera Bilirubin [Mass/Vol] 0.7 mg/dL Normal 0.2-1.0 [facility] Comment on above: Performed By: #### C BC #### [facility] [address] [address] [address] Layla Barrera Calcium [Mass/Vol] 8.9 mg/dL Normal 8.5-10.1 [facility] Comment on above: Performed By: #### C BC #### [facility] [address] [address] [address] Layla Barrera Chloride [Moles/Vol] 100 mmol/L Normal 98-107 [facility] Comment on above: Performed By: #### C BC #### [facility] [address] [address] [address] Layla Barrera CO2 [Moles/Vol] 27.9 mmol/L Normal 21.0-32.0 [facility] Comment on above: Performed By: #### C BC #### [facility] [address] [place] [address] Dr. Layla Barrera Creatinine [Mass/Vol] 1.30 mg/dL Normal 0.70-1.30 [facility] Comment on above: Performed By: #### C BC #### [facility] [address] [place] [address] Dr. Layla Barrera EGFR-AF PERUVIAN >60 Normal >=60 [facility] Comment on above: Performed By: #### C BC #### [facility] [address] [place] [address] Dr. Layla Barrera EGFR-NON AF PERUVIAN 53 mL/min/1.73m2 Critically low >=60 [facility] Comment on above: Performed By: #### C BC #### [facility] [address] [place] [address] Dr. Layla Barrera Globulin (S) [Mass/Vol] 3.3 g/dL Normal [facility] Comment on above: Performed By: #### C BC #### [facility] [address] [place] [address] Dr. Layla Barrera Glucose [Mass/Vol] 137 mg/dL Critically high 74-106 [facility] Comment on above: Performed By: #### C BC #### [facility] [address] [place] [address] Dr. Layla Barrera Potassium [Moles/Vol] 3.7 mmol/L Normal 3.5-5.1 [facility] Comment on above: Performed By: #### C BC #### [facility] [address] [address] [address] Layla Barrera Protein [Mass/Vol] 7.0 g/dL Normal 6.4-8.2 [facility] Comment on above: Performed By: #### C BC #### [facility] [address] [address] [address] Layla Barrera Sodium [Moles/Vol] 137 mmol/L Normal 136-145 [facility] Comment on above: Performed By: #### C BC #### [facility] [address] [place] [address] Dr. Layla Barrera Urea nitrogen [Mass/Vol] 20.0 mg/dL Critically high 7.0-18.0 [facility] Comment on above: Performed By: #### C BC #### [facility] [address] [place] [address] Dr. Layla Barrera Urea nitrogen/Creatinin e [Mass ratio] 15.4 mg/mg Normal [facility] Comment on above: Performed By: #### C BC #### [facility] [address] [place] [address] Dr. Layla Barrera URIC ACID SERUMon 03-11-2022 Urate [Mass/Vol] 8.3 mg/dL Critically high 3.5-7.2 [facility] Comment on above: Performed By: #### G IPANEL #### [facility] [address] [place] [address] Dr. Layla Barrera Office Visit (Cardiology)on 12-28-2021 [...] (786.09) (R06.00) Fatigue (780.79) (R53.83) Former smoker (V1.82) (Z87.891) Quit: 1991 Hyperlipidemia (272.4) (E78.5) Personal [...] 09:51AM Hea (more content not included)... Normal [employer] Tobacco Screening.on 022 Fall risk assessment a) No falls within the last year -[facility] [address] DO Work Phone: Tobacco use status CPHS b) No -[facility] [address] DO Work Phone: NO CARDIAC STRESS/REST INJE CTIONon 12-21-2021 [facility] CARDIAC STRESS/REST INJECTION Patient Name: TRAVIS COBURN STUDY: MYOCARDIAL PERFUSION STRESS TEST WITH LEXISCAN Performing facility: [facility] Provider: Azalea Deras MD, FACC PCP: Dr. Navarrete Supervising provider: Shaquille Ramos DO, [facility] INDICATION: CAD; Dyspnea HISTORY: Gender: M; Age: 81 y/o ; Height: 0 cm; Weight: 831.5545304 kg. CAD; High Cholesterol; HTN; SOB; Fatigue; Quit smoking 30 years ago. Cardiac catheterization on 2005. COMPARISON[place] [facility] [place]S): [id number]; [id number]; [id number] ORDERING CLINICIAN: JOHNNIE DERAS TECHNIQUE: TWO DAY [...] Electronically signed by: ABDOUL TIMMONS MD Normal [facility] No Panel Informationon 12-21 Normal -[facility] [address] DO Work Phone: [...] DAILY. Allergies (more content not included)... Normal [employer] Tobacco Screening.on Adult depression screening assessment No [facility] [address] DO Work Phone: Fall risk assessment a) No falls within the last year [facility] [address] DO Work Phone: Tobacco use status CPHS b) No [facility] [address] DO Work Phone: C REACTIVE PROTEINon 022 CRP [Mass/Vol] 3.3 mg/L Normal 0.0-7.0 [facility] Comment on above: Performed By: #### 6 1405 #### [facility] [address] CBC AUTO DIFFon 11-25-2021 BASO # 0.0 103/ul Normal 0.0-0.1 [facility] Comment on above: Performed By: #### G IPANEL #### [facility] [address] [address] [address] Layla Barrera Basophils/100 WBC (Bld) 0.5 % Normal 0.2-2.0 [facility] Comment on above: Performed By: #### G IPANEL #### [facility] [address] [place] [address] Dr. Layla Barrera EO # 0.2 103/ul Normal 0.0-0.7 [facility] Comment on above: Performed By: #### G IPANEL #### [facility] [address] [place] [address] Dr. Layla Barrera Eosinophils/100 WBC (Bld) 3.0 % Normal 0.9-7.0 [facility] Comment on above: Performed By: #### G IPANEL #### [facility] [address] [place] [address] Dr. Layla Barrera Erythrocyte distribution width (RBC) [Ratio] 13.7 % Normal 11.0-15.0 [facility] Comment on above: Performed By: #### G IPANEL #### [facility] [address] [place] [address] Dr. Layla Barrera Hematocrit (Bld) [Volume fraction] 40.0 % Critically low 42.0-54.0 [facility] Comment on above: Performed By: #### G IPANEL #### [facility] [address] [place] [address] Dr. Layla Barrera Hemoglobin (Bld) [Mass/Vol] 13.4 g/dL Critically low 14.0-18.0 [facility] Comment on above: Performed By: #### G IPANEL #### [facility] [address] [address] [address] Layla Barrera IG # 0.02 10e3/ul Normal 0.00-0.03 [facility] Comment on above: Performed By: #### G IPANEL #### [facility] [address] [place] [address] Dr. Layla Barrera IG % 0.3 % Normal 0.0-0.5 [facility] Comment on above: Performed By: #### G IPANEL #### [facility] [address] [place] [address] Dr. Layla Barrera LYMPH # 2.4 103/ul Normal 1.2-3.8 [facility] Comment on above: Performed By: #### G IPANEL #### [facility] [address] [place] [address] Dr. Layla Barrera Lymphocytes/100 WBC (Bld) 39.6 % Normal 20.5-60.0 [facility] Comment on above: Performed By: #### G IPANEL #### [facility] [address] [place] [address] Dr. Layla Barrera MANUAL DIFF REQ NO Normal [facility] Comment on above: Performed By: #### G IPANEL #### [facility] [address] [place] [address] Dr. Layla Barrera [facility] (RBC) [Entitic mass] 31.3 pg Normal 25.9-34.0 [facility] Comment on above: Performed By: #### G IPANEL #### [facility] [address] [place] [address] Dr. Layla Barrera MCHC (RBC) [Mass/Vol] 33.5 g/dL Normal 29.9-35.2 [facility] Comment on above: Performed By: #### G IPANEL #### [facility] [address] [place] [address] Dr. Layla Barrera MCV (RBC) [Entitic vol] 93.5 fL Normal 80.0-94.0 [facility] Comment on above: Performed By: #### G IPANEL #### [facility] [address] [place] [address] Dr. Layla Barrera MONO # 0.6 103/ul Normal 0.3-0.8 [facility] Comment on above: Performed By: #### G IPANEL #### [facility] [address] [address] [address] Layla aBrrera Monocytes/100 WBC (Bld) 9.3 % Normal 1.7-12.0 [facility] Comment on above: Performed By: #### G IPANEL #### [facility] [address] [address] [address] Layla Barrera NEUT # 2.8 103/ul Normal 1.4-6.5 [facility] Comment on above: Performed By: #### G IPANEL #### [facility] [address] [place] [address] Dr. Layla Barrera Neutrophils/100 WBC (Bld) 47.3 % Normal 43.0-75.0 [facility] Comment on above: Performed By: #### G IPANEL #### [facility] [address] [place] [address] Dr. Layla Barrera Platelet mean volume (Bld) [Entitic vol] 10.4 fL Normal 9.5-13.5 [facility] Comment on above: Performed By: #### G IPANEL #### [facility] [address] [place] [address] Dr. Layla Barrera PLT 184 103/ul Normal 150-450 [facility] Comment on above: Performed By: #### G IPANEL #### [facility] [address] [address] [address] Layla Barrera RBC 4.28 106/ul Critically low 4.70-6.10 [facility] Comment on above: Performed By: #### G IPANEL #### [facility] [address] [address] [address] Layla Barrera WBC 5.9 103/ul Normal 4.0-11.0 [facility] Comment on above: Performed By: #### G IPANEL #### [facility] [address] [place] [address] Dr. Layla Barrera CBC W/DIFFon 05-19-2022 ABS IMM GRANS 0.0 10*3/uL Normal 0.0-0.2 [facility] Comment on above: Performed By: #### 5 [id number], [id number] #### [facility] [address] [place] [address], [facility] ABS NEUTROPHILS 3.6 10*3/uL Normal 1.6-7.6 [facility] Comment on above: Performed By: #### 5 6505, [id number] #### [facility] [address] [place] [address], [facility] Basophils (Bld) [#/Vol] 0.0 10*3/uL Normal 0.0-0.2 [facility] Comment on above: Performed By: #### 5 6505, 05814 #### [facility] [address] [place] [address], [facility] Basophils/100 WBC (Bld) 0.4 % Normal 0.0-1.0 [facility] Comment on above: Performed By: #### 5 6505, [id number] #### [facility] [address] [place] [address], [facility] Eosinophils (Bld) [#/Vol] 0.2 10*3/uL Normal 0.0-0.5 [facility] Comment on above: Performed By: #### 5 6505, 16663 #### [facility] [address] [place] [address], [facility] Eosinophils/100 WBC (Bld) 2.2 % Normal 0.0-6.0 [facility] Comment on above: Performed By: #### 5 6505, 53097 #### [facility] [address] [place] [address], [facility] Erythrocyte distribution width (RBC) [Ratio] 13.6 % Normal 11.5-15.0 [facility] Comment on above: Performed By: #### 5 6505, 52649 #### [facility] [address] [place] [address], [facility] Hematocrit (Bld) [Volume fraction] 40.4 % Normal 39.0-50.0 [facility] Comment on above: Performed By: #### 5 6505, [id number] #### [facility] [address] [place] [address], [facility] Hemoglobin (Bld) [Mass/Vol] 13.7 g/dL Normal 13.0-17.0 [facility] Comment on above: Performed By: #### 5 6505, 21967 #### [facility] [address] [facility] [place] [address], [facility] IMMATURE GRANS 0.3 % Normal 0.0-1.0 [facility] Comment on above: Performed By: #### 5 6505, 85190 #### [facility] [address] [facility] [address], [facility] Lymphocytes (Bld) [#/Vol] 2.4 10*3/uL Normal 1.2-4.0 [facility] Comment on above: Performed By: #### 5 6505, 69830 #### [facility] [address] [place] [address], [facility] Lymphocytes/100 WBC (Bld) 35.0 % Normal 20.0-45.0 [facility] Comment on above: Performed By: #### 5 6505, 63076 #### [facility] [address] [place] [address], [facility] MCH (RBC) [Entitic mass] 31.8 pg Normal 27.0-33.0 [facility] Comment on above: Performed By: #### 5 [id number], 56688 #### [facility] [address] [place] [address], [facility] MCHC (RBC) [Mass/Vol] 33.9 g/dL Normal 32.0-35.0 [facility] Comment on above: Performed By: #### 5 6505, 92386 #### [facility] [address] [place] [address], [facility] MCV (RBC) [Entitic vol] 93.7 fL Normal 82.0-98.0 [facility] Comment on above: Performed By: #### 5 6505, 05515 #### [facility] [address] [place] [address], [facility] Monocytes (Bld) [#/Vol] 0.6 10*3/uL Normal 0.1-1.0 [facility] Comment on above: Performed By: #### 5 6505, 02353 #### [facility] [address] [facility] [place] [address], [facility] MONOS 8.4 % Normal 5.0-12.0 [facility] Comment on above: Performed By: #### 5 6505, 76454 #### [facility] [address] [place] [address], [facility] Neutrophils/100 WBC (Bld) 53.7 % Normal 40.0-72.0 [facility] Comment on above: Performed By: #### 5 6505, 57759 #### [facility] [address] [place] [address], [facility] Nucleated RBC/100 WBC (Bld) [Ratio] 0 % Normal 0-0 [facility] Comment on above: Performed By: #### 5 [id number], 47651 #### [facility] [address] [place] [address], [facility] PLAT CNT 198 10*3/uL Normal 150-400 [facility] Comment on above: Performed By: #### 5 6505, 05598 #### [facility] [address] [place] [address], [facility] RBC (Bld) [#/Vol] 4.31 10*6/uL Normal 4.20-5.70 [facility] Comment on above: Performed By: #### 5 6506, 58386 #### [facility] [address] [place] [address], [facility] WBC (Bld) [#/Vol] 6.75 10*3/uL Normal 4.00-10.60 [facility] Comment on above: Performed By: #### 5 6506, 23269 #### [facility] [address] [place] [address], [facility] COMP METABOLIC PANELon 11-25 Albumin [Mass/Vol] 4.1 g/dL Normal 3.5-5.7 [facility] Comment on above: Performed By: #### 0 0121 #### [facility] [address] [facility] [place] [address], [facility] ALKALINE PHOSPH 87 IU/L Normal 34-104 [facility] Comment on above: Performed By: #### 0 0121 #### [facility] [address] [facility] ALT [Catalytic activity/Vol] 47 U/L Normal 7-52 [facility] Comment on above: Performed By: #### 0 0121 #### [facility] [address] [facility] AST [Catalytic activity/Vol] 29 U/L Normal 13-39 [facility] Comment on above: Performed By: #### 0 0121 #### [facility] [address] [place] [address], [facility] Bilirubin [Mass/Vol] 0.7 mg/dL Normal 0.3-1.0 [facility] Comment on above: Performed By: #### 0 0121 #### [facility] [address] [place] [id number], [facility] Calcium [Mass/Vol] 9.7 mg/dL Normal 8.6-10.3 [facility] Comment on above: Performed By: #### 0 0121 #### [facility] [address] [place] [address], [place] Chloride [Moles/Vol] 103 mmol/L Normal 98-107 [facility] Comment on above: Performed By: #### 0 0121 #### [facility] [address] [place] [address], [place] CO2 [Moles/Vol] 30 mmol/L Normal 21-31 [facility] Comment on above: Performed By: #### 0 0121 #### [facility] [address] [place] [address], [place] Creatinine [Mass/Vol] 1.06 mg/dL Normal 0.70-1.30 [facility] Comment on above: Performed By: #### 0 0121 #### [facility] [address] [place] [address], [place] GFR/1.73 sq M.predicted among blacks MDRD (S/P/Bld) [Vol rate/Area] mL/min/{1.73_m2} Normal >60 [facility] Comment on above: Result Comment: Calc ulation may not be valid for patients over 70 years Performed By: #### 0 0121 #### [facility] [address] [place] [address], [place] GFR/1.73 sq M.predicted among non-blacks MDRD (S/P/Bld) [Vol rate/Area] mL/min/{1.73_m2} Normal >60 [facility] Comment on above: Result Comment: Calc ulation may not be valid for patients over 70 years Performed By: #### 0 0121 #### [facility] [address] [place] [address], [place] Glucose [Mass/Vol] 94 mg/dL Normal 70-100 [facility] Comment on above: Performed By: #### 0 0121 #### [facility] [address] [place] [address], [place] Potassium [Moles/Vol] 4.7 mmol/L Normal 3.5-5.1 [facility] Comment on above: Performed By: #### 0 0121 #### [facility] [address] [facility] [place] [address], [facility] Protein [Mass/Vol] 6.6 g/dL Normal 6.0-8.3 [facility] Comment on above: Performed By: #### 0 0121 #### [facility] [address] [facility] [place] [address], [facility] Sodium [Moles/Vol] 138 mmol/L Normal 136-145 [facility] Comment on above: Performed By: #### 0 0121 #### [facility] [address] [place] [address], [facility] Urea nitrogen [Mass/Vol] 17 mg/dL Normal 7-25 [facility] Comment on above: Performed By: #### 0 0121 #### [facility] [address] [place] [address], [facility] FREE THYROXINE INDEX T7on FTI 2.38 Normal 1.30-4.50 [facility] Comment on above: Performed By: #### T SH, CMP, T7, MG #### [facility] [address] [address] [address] Layla Barrera T3U 34.0 % Normal 33.0-40.0 [facility] Comment on above: Performed By: #### T SH, CMP, T7, MG #### [facility] [address] [address] [address] Layla Barrera T4 [Mass/Vol] 7.00 ug/dL Normal 4.50-12.10 [facility] Comment on above: Performed By: #### T SH, CMP, T7, MG #### [facility] [address] [address] [address] Layla Barrera MAGNESIUMon 11-25-2021 Magnesium [Mass/Vol] 1.7 mg/dL Critically low 1.8-2.4 [facility] Comment on above: Performed By: #### T SH, CMP, T7, MG #### [facility] [address] [address] [address] Layla Barrera PROF 14(COMP METB)on 022 Albumin [Mass/Vol] 3.5 g/dL Normal 3.4-5.0 [facility] Comment on above: Performed By: #### T SH, CMP, T7, MG #### [facility] [address] [place] [address] Dr. Layla Barrera Albumin/Globulin [Mass ratio] 1.1 {ratio} Normal [facility] Comment on above: Performed By: #### T SH, CMP, T7, MG #### [facility] [address] [place] [address] Dr. Layla Barrera ALP [Catalytic activity/Vol] 97 U/L Normal 46-116 [facility] Comment on above: Performed By: #### T SH, CMP, T7, MG #### [facility] [address] [place] [address] Dr. Layla Barrera ALT [Catalytic activity/Vol] 64 U/L Critically high 16-63 [facility] Comment on above: Performed By: #### T SH, CMP, T7, MG #### [facility] [address] [place] [address] Dr. Layla Barrera Anion gap [Moles/Vol] 11.6 mmol/L Normal [facility] Comment on above: Performed By: #### T SH, CMP, T7, MG #### [facility] [address] [place] [address] Dr. Layla Barrera AST [Catalytic activity/Vol] 27 U/L Normal 15-37 [facility] Comment on above: Performed By: #### T SH, CMP, T7, MG #### [facility] [address] [place] [address] Dr. Layla Barrera Bilirubin [Mass/Vol] 0.8 mg/dL Normal 0.2-1.0 [facility] Comment on above: Performed By: #### T SH, CMP, T7, MG #### [facility] [address] [address] [address] Layla Barrera Calcium [Mass/Vol] 9.0 mg/dL Normal 8.5-10.1 [facility] Comment on above: Performed By: #### T SH, CMP, T7, MG #### [facility] [address] [address] [address] Layla Barrera Chloride [Moles/Vol] 102 mmol/L Normal 98-107 [facility] Comment on above: Performed By: #### T SH, CMP, T7, MG #### [facility] [address] [address] [address] Layla Barrera CO2 [Moles/Vol] 27.3 mmol/L Normal 21.0-32.0 [facility] [place] [facility] Comment on above: Performed By: #### T SH, CMP, T7, MG #### [facility] [address] [place] [address] Dr. Layla Barrera Creatinine [Mass/Vol] 1.15 mg/dL Normal 0.70-1.30 [facility] Comment on above: Performed By: #### T SH, CMP, T7, MG #### [facility] [address] [place] [address] Dr. Layla Barrera EGFR-AF PERUVIAN >60 Normal >=60 [facility] [place] [facility] Comment on above: Performed By: #### T SH, CMP, T7, MG #### [facility] [address] [place] [address] Dr. Layla Barrera EGFR-NON AF PERUVIAN >60 Normal >=60 [facility] Comment on above: Performed By: #### T SH, CMP, T7, MG #### [facility] [address] [place] [address] Dr. Layla Barrera Globulin (S) [Mass/Vol] 3.3 g/dL Normal [facility] Comment on above: Performed By: #### T SH, CMP, T7, MG #### [facility] [address] [place] [address] Dr. Layla Barrera Glucose [Mass/Vol] 144 mg/dL Critically high 74-106 [facility] Comment on above: Performed By: #### T SH, CMP, T7, MG #### [facility] [address] [place] [address] Dr. Layla Barrera Potassium [Moles/Vol] 3.9 mmol/L Normal 3.5-5.1 [facility] Comment on above: Performed By: #### T SH, CMP, T7, MG #### [facility] [address] [place] [address] Dr. Layla Barrera Protein [Mass/Vol] 6.8 g/dL Normal 6.4-8.2 [facility] Comment on above: Performed By: #### T SH, CMP, T7, MG #### [facility] [address] [place] [address] Dr. Layla Barrera Sodium [Moles/Vol] 137 mmol/L Normal 136-145 [facility] Comment on above: Performed By: #### T SH, CMP, T7, MG #### [facility] [address] [place] [address] Dr. Layla Barrera Urea nitrogen [Mass/Vol] 16.0 mg/dL Normal 7.0-18.0 [facility] Comment on above: Performed By: #### T SH, CMP, T7, MG #### [facility] [address] [place] [address] Dr. Layla Barrera Urea nitrogen/Creatinin e [Mass ratio] 13.9 mg/mg Normal [facility] Comment on above: Performed By: #### T SH, CMP, T7, MG #### [facility] [address] [place] [address] Dr. Layla Barrera SEDIMENTATION RATEon 022 SED RATE 10 mm/hr Normal 0-10 [facility] Comment on above: Performed By: #### 5 [id number], [id number] #### [facility] [address] [place] [address], [facility] TSHon 11-25-2021 TSH 2.406 uIU/mL Normal 0.358-3.740 [facility] Comment on above: Performed By: #### T SH, CMP, T7, MG #### [facility] [address] [place], [place] [address] Dr. Layla Barrera TSH RANGE SEE BELOW Normal [facility] Comment on above: Result Comment: <0.3 4 UIU/ml HYPERTHYROID 0.34-5.60 UIU/ml EUTHYROID >5.60 UIU/ml HYPOTHYROID Performed By: #### T SH, CMP, T7, MG #### [facility] [address] [address] [address] Layla Barrera CBC W/DIFFon 05-27-2021 ABS IMM GRANS 0.0 10*3/uL Normal 0.0-0.2 [facility] Comment on above: Performed By: #### 5 0103 #### [facility] [address] [place] [address], [facility] ABS NEUTROPHILS 3.8 10*3/uL Normal 1.6-7.6 [facility] Comment on above: Performed By: #### 5 0103 #### [facility] [address] [facility] [place] [address], [facility] Basophils (Bld) [#/Vol] 0.0 10*3/uL Normal 0.0-0.2 [facility] Comment on above: Performed By: #### 5 0103 #### [facility] [address] [facility] [place] [address], [facility] Basophils/100 WBC (Bld) 0.6 % Normal 0.0-1.0 [facility] Comment on above: Performed By: #### 5 0103 #### [facility] [address] [facility] [place] [address], [facility] Eosinophils (Bld) [#/Vol] 0.2 10*3/uL Normal 0.0-0.5 [facility] Comment on above: Performed By: #### 5 0103 #### [facility] [address] [place] [address], [place] Eosinophils/100 WBC (Bld) 2.7 % Normal 0.0-6.0 [facility] Comment on above: Performed By: #### 5 0103 #### [facility] [address] [facility] Erythrocyte distribution width (RBC) [Ratio] 13.4 % Normal 11.5-15.0 [facility] Comment on above: Performed By: #### 5 0103 #### [facility] [address] [place] [address], [facility] Hematocrit (Bld) [Volume fraction] 41.7 % Normal 39.0-50.0 [facility] Comment on above: Performed By: #### 5 0103 #### [facility] [address] [facility]. [address] Hemoglobin (Bld) [Mass/Vol] 14.3 g/dL Normal 13.0-17.0 [facility] Comment on above: Performed By: #### 5 0103 #### [facility] [address] [facility]. [address] IMMATURE GRANS 0.6 % Normal 0.0-1.0 [facility] Comment on above: Performed By: #### 5 0103 #### [facility] [address] [facility] Lymphocytes (Bld) [#/Vol] 2.5 10*3/uL Normal 1.2-4.0 [facility] Comment on above: Performed By: #### 5 3 #### [facility] [address] [facility] [place] [address], [facility] Lymphocytes/100 WBC (Bld) 35.0 % Normal 20.0-45.0 [facility] Comment on above: Performed By: #### 5 3 #### [facility] [address] [place] [address], [facility] MCH (RBC) [Entitic mass] 31.6 pg Normal 27.0-33.0 [facility] Comment on above: Performed By: #### 5 0103 #### [facility] [address] [facility]. [address] MCHC (RBC) [Mass/Vol] 34.3 g/dL Normal 32.0-35.0 [facility] Comment on above: Performed By: #### 3 #### [facility] [address] [place] [address], [facility] MCV (RBC) [Entitic vol] 92.3 fL Normal 82.0-98.0 [facility] Comment on above: Performed By: #### 3 #### [facility] [address] [place] [address], [facility] Monocytes (Bld) [#/Vol] 0.5 10*3/uL Normal 0.1-1.0 [facility] Comment on above: Performed By: #### 3 #### [facility] [address] MONOS 7.4 % Normal 5.0-12.0 [facility] Comment on above: Performed By: #### 102 #### [facility] [address] [place] [address], [facility] Neutrophils/100 WBC (Bld) 53.7 % Normal 40.0-72.0 [facility] Comment on above: Performed By: #### 3 #### [facility] [address] [place] [address], [facility] Nucleated RBC/100 WBC (Bld) [Ratio] 0 % Normal 0-0 [facility] Comment on above: Performed By: #### 102 #### [facility] [address] [place] [address], [facility] PLAT CNT 194 10*3/uL Normal 150-400 [facility] Comment on above: Performed By: #### 102 #### [facility] [address] [place] [address], [facility] RBC (Bld) [#/Vol] 4.52 10*6/uL Normal 4.20-5.70 [facility] Comment on above: Performed By: #### 5 0103 #### [facility] [address] [place] [address], [facility] WBC (Bld) [#/Vol] 7.02 10*3/uL Normal 4.00-10.60 [facility] Comment on above: Performed By: #### 5 0103 #### [facility] [address] [place] [address], [facility] LIVER BATTERYon 05-27-2021 Albumin [Mass/Vol] 4.1 g/dL Normal 3.5-5.7 [facility] Comment on above: Performed By: #### 9 9909 #### [facility] [address] [place] [address], [facility] ALKALINE PHOSPH 75 IU/L Normal 34-104 [facility] Comment on above: Performed By: #### 9 9909 #### [facility] [address] ALT [Catalytic activity/Vol] 42 U/L Normal 7-52 [facility] Comment on above: Performed By: #### 9 9909 #### [facility] [address] [place] [address], [facility] AST [Catalytic activity/Vol] 27 U/L Normal 13-39 [facility] Comment on above: Performed By: #### 9 9909 #### [facility] [address] [place] [address], [facility] Bilirubin [Mass/Vol] 0.5 mg/dL Normal 0.3-1.0 [facility] Comment on above: Performed By: #### 9 9909 #### [facility] [address] Bilirubin.direct [Mass/Vol] 0.1 mg/dL Normal 0.0-0.2 [facility] Comment on above: Performed By: #### 9 9909 #### [facility] [address] [place] [address], [facility] Protein [Mass/Vol] 6.8 g/dL Normal 6.0-8.3 [facility] Comment on above: Performed By: #### 9 [id number] #### [facility] [address] [place], [place] [id number] [place] [address] Vital Signs Date Time Vital Sign Value Performing Clinician Facility 01-19-2024 11:30-0400 Blood Pressure Location Nguyễn VELA [facility] 01-19-2024 11:30-0400 Body temperature 98.6 [degF] Nguyễn VELA [facility] 01-19-2024 11:30-0400 Diastolic blood pressure 84 mm[Hg] Nguyễn VELA [facility] 01-19-2024 11:30-0400 Heart rate 74 /min Nguyễn VELA [facility] 01-19-2024 11:30-0400 Respiratory rate 16 /min Nguyễn VELA [facility] 01-19-2024 11:30-0400 Systolic blood pressure 133 mm[Hg] Nguyễn VELA [facility] 11-27-2023 10:39-0400 Diastolic blood pressure 80 mm[Hg] Johnnie Deras MD Work Phone: [facility] 11-27-2023 10:39-0400 Systolic blood pressure 130 mm[Hg] Johnnie Deras MD Work Phone: [facility] 11-27-2023 [id number] Body height 175.3 cm Johnnie Deras MD Work Phone: [facility] 11-27-2023 10:11-0400 Body mass index (BMI) [Ratio] 35.12 kg/m2 Johnnie Deras MD Work Phone: [facility] 11-27-2023 10:11-040 Body weight 107.86 kg Johnnie Deras MD Work Phone: [facility] 11-27-2023 10:11-0400 Heart rate 80 /min Johnnie Deras MD Work Phone: [facility] 07-18-2023 14:14-0500 Blood Pressure Location Shaquille LILL[facility] 07-18-2023 14:14-0500 Diastolic blood pressure 88 mm[Hg] Shaquille LILLY [facility] 07-18-2023 14:14-0500 Heart rate 92 /min Shaquille LILLY [facility] [place] 07-18-2023 14:14-0500 Respiratory rate 16 /min Shaquille LILLY [facility] [place] 07-18-2023 14:14-0500 Systolic blood pressure 138 mm[Hg] Shaquille LILLY [facility] 03-20-2023 14:45-0400 Diastolic blood pressure 92 mm[Hg] Nguyễn VELA [facility] 03-20-2023 14:45-0400 Mean blood pressure 111 mm[Hg] Nguyễn VELA [facility] 03-20-2023 14:45-0400 Systolic blood pressure 150 mm[Hg] Nguyễn VELA [facility] 03-20-2023 14:29-0400 Blood Pressure Location Nguyễn VELA [facility] 03-20-2023 14:29-0400 Diastolic blood pressure 91 mm[Hg] Nguyễn VELA [facility] 03-20-2023 14:29-0400 Heart rate 86 /min Nguyễn VELA [facility] 03-20-2023 14:29-0400 Systolic blood pressure 158 mm[Hg] Nguyễn VELA [facility] 12-28-2021 10:15-0400 Body height 177.8 cm Mayra M Hoy Work Phone: [facility] [facility] DO Work Phone: 12-28-2021 10:15-0400 Body mass index (BMI) [Ratio] 34.15 kg/m2 Mayra M Hoy Work Phone: [facility] [facility] DO Work Phone: 12-28-2021 10:15-0400 Body surface area Derived from formula 2.25 m2 Mayra M Hoy Work Phone: [facility] [facility] DO Work Phone: 12-28-2021 10:15-0400 Body weight 107.96 kg Mayra M Hoy Work Phone: [facility] [facility] DO Work Phone: 12-28-2021 10:15-0400 Diastolic blood pressure 70 mm[Hg] Mayra M Hoy Work Phone: [facility] [facility] DO Work Phone: 12-28-2021 10:15-0400 Heart rate 60 /min Mayra M Hoy Work Phone: [facility] [facility] DO Work Phone: 12-28-2021 10:15-0400 Systolic blood pressure 138 mm[Hg] Mayra M Hoy Work Phone: [facility] [facility] DO Work Phone: 12-28-2021 09:51-0400 Body height 177.8 cm Mayra M Hoy Work Phone: [facility] [facility] DO Work Phone: 12-28-2021 09:51-0400 Body mass index (BMI) [Ratio] 34.15 kg/m2 Mayra M Hoy Work Phone: [facility] [facility] DO Work Phone: 12-28-2021 09:51-0400 Body surface area Derived from formula 2.25 m2 Mayra M Hoy Work Phone: [facility] [facility] DO Work Phone: 12-28-2021 09:51-0400 Body weight 107.96 kg Mayra M Hoy Work Phone: [facility] [facility] DO Work Phone: 12-28-2021 09:51-0400 Diastolic blood pressure 70 mm[Hg] Mayra M Hoy Work Phone: [facility] [facility] DO Work Phone: 12-28-2021 09:51-0400 Heart rate 60 /min Mayra M Hoy Work Phone: [facility] [facility] DO Work Phone: 12-28-2021 09:51-0400 Systolic blood pressure 146 mm[Hg] Mayra M Hoy Work Phone: [facility] [facility] DO Work Phone: 12-22-2021 08:00-0400 53 1 Mayra M Hoy Work Phone: [facility] [facility] DO Work Phone: Comment on above: [id number] 12-08-2021 15:22-0400 Body height 177.8 cm Mayra Jesse Hoy Work Phone: [facility] [facility] DO Work Phone: 12-08-2021 15:22-0400 Body mass index (BMI) [Ratio] 34.15 kg/m2 Mayra Jesse Hoy Work Phone: [facility] [facility] DO Work Phone: 12-08-2021 15:22-0400 Body surface area Derived from formula 2.25 m2 Mayra Jesse Hoy Work Phone: [facility] [facility] DO Work Phone: 12-08-2021 15:22-0400 Body weight 107.96 kg Mayra Molina Hoy Work Phone: [facility] [facility] DO Work Phone: 12-08-2021 15:22-0400 Diastolic blood pressure 70 mm[Hg] Mayra Jesse Hoy Work Phone: [facility] [facility] DO Work Phone: 12-08-2021 15:22-0400 Heart rate 87 /min Mayra Jesse Hoy Work Phone: [facility] [facility] DO Work Phone: 12-08-2021 15:22-0400 Systolic blood pressure 138 mm[Hg] Mayra M Hoy Work Phone: [facility] [facility] DO Work Phone: 12-08-2021 15:12-0400 Diastolic blood pressure 70 mm[Hg] Mayra M Hoy Work Phone: [facility] [facility] DO Work Phone: 12-08-2021 15:12-0400 Systolic blood pressure 140 mm[Hg] Mayra Jsese Hoy Work Phone: [facility] [facility] DO Work Phone: 12-08-2021 15:08-0400 Body height 177.8 cm Mayra M Hoy Work Phone: [facility] [facility] DO Work Phone: 12-08-2021 15:08-0400 Body mass index (BMI) [Ratio] 34.15 kg/m2 Mayra M Hoy Work Phone: [facility] [facility] DO Work Phone: 12-08-2021 15:08-0400 Body surface area Derived from formula 2.25 m2 Mayra M Hoy Work Phone: [facility] [facility] DO Work Phone: 12-08-2021 15:08-0400 Body weight 107.96 kg Mayra Jesse Hoy Work Phone: [facility] [facility] DO Work Phone: 12-08-2021 15:08-0400 Diastolic blood pressure 82 mm[Hg] Mayra M Hoy Work Phone: [facility] [facility] DO Work Phone: 12-08-2021 15:08-0400 Heart rate 87 /min Mayra M Hoy Work Phone: [facility] [facility] DO Work Phone: 12-08-2021 15:08-0400 Systolic blood pressure 142 mm[Hg] Mayra M Hoy Work Phone: [facility] [facility] DO Work Phone: Encounters Encounter Date Encounter Type Care Provider Facility Start: 06-18-2024 End: 06-18-2024 Yola Gee AUTOMATED TELLER MANAGER Work Phone: [facility] Start: 06-18-2024 End: 06-18-2024 Bamboo flowsheet Katey Depoy AUTOMATED TELLER MANAGER Work Phone: [facility] Start: 06-18-2024 End: 06-18-2024 Treatment Katey Depoy AUTOMATED TELLER MANAGER Work Phone: [facility] Comment on above: Unilateral vestibula r weakness, right (Primary Dx); Cervicalgia; Balance disorder Start: 06-10-2024 End: 06-10-2024 Treatment Shaquille [facility] PT Work Phone: [facility] Comment on above: Cervicalgia (Primary Dx); Balance disorder; Unilateral vestibular weakness, right Start: 05-22-2024 End: 05-22-2024 Bamboo flowsheet Katey Depoy AUTOMATED TELLER MANAGER Work Phone: [facility] Start: 05-22-2024 End: 05-22-2024 Bamboo flowsheet Katey Depoy AUTOMATED TELLER MANAGER Work Phone: [facility] Start: 05-22-2024 End: 05-22-2024 Treatment Katey Depoy AUTOMATED TELLER MANAGER Work Phone: [facility] Comment on above: Balance disorder (Pr imary Dx); Unilateral vestibular weakness, right; Cervicalgia Start: 05-07-2024 End: 05-07-2024 Bamboo flowsheet Shaquille [facility] PT Work Phone: [facility] Start: 05-07-2024 End: 05-07-2024 Bamboo flowsheet Shaquille [facility] PT Work Phone: [facility] Start: 05-07-2024 End: 05-07-2024 Treatment Shaquille [facility] PT Work Phone: [facility] Comment on above: Unilateral vestibula r weakness, right (Primary Dx); Cervicalgia; Balance disorder Start: 04-23-2024 End: 04-23-2024 Treatment Shaquille [facility] PT Work Phone: [facility] Comment on above: Cervicalgia (Primary Dx); Balance disorder; Unilateral vestibular weakness, right Start: 04-17-2024 End: 04-17-2024 ambulatory TOO [facility] Start: 04-04-2024 ambulatory TOO [facility] Start: 04-02-2024 End: 04-02-2024 ambulatory SHAQUILLE VALENCIA Not Available Start: 03-18-2024 End: 03-18-2024 ambulatory SHAQUILLE VALENCIA Not Available Start: 03-08-2024 End: 03-08-2024 ambulatory SHAQUILLE VALENCIA Not Available Start: 02-15-2024 End: 02-15-2024 ambulatory LUIS DANIEL Molina [facility] Start: 02-06-2024 End: 02-06-[address] [facility] Ambulatory Start: 02-01-2024 End: 02-01-2024 ambulatory RADHA MONTES Not Available Start: 01-23-2024 End: 01-23-2024 ambulatory MEGAN Khan TIMMIS Not Available Start: 01-19-2024 End: 01-19-2024 Patient encounter procedure Nguyễn VELA [facility] Start: 12-27-2023 End: 12-27-2023 ambulatory MEGAN CULPMIS Not Available Start: 12-25-2023 End: 12-25-2023 ambulatory YUE GARCIA Not Available Start: 11-27-2023 End: 11-27-2023 Office outpatient visit 15 minutes Johnnie Deras MD Work Phone: [facility] Comment on above: Coronary artery dise ase involving [place] coronary artery of [place] heart without angina pectoris (Primary Dx); Benign essential hypertension; Mixed hyperlipidemia; Former cigarette smoker Start: 11-27-2023 End: 11-27-2023 ambulatory JOHNNIE DERAS [facility] Ambulatory Start: 10-11-2023 End: 10-11-2023 ambulatory TOO [facility] Start: 10-02-2023 ambulatory TOO [facility] Start: 09-13-2023 End: 09-14-2023 ambulatory Shaquille R NILL Facility: [facility] Start: 09-13-2023 End: 09-13-2023 Patient encounter procedure Shaquille R NILL [facility] [place] Start: 09-01-2023 End: 09-02-2023 ambulatory Shaquille R NILL Facility: [facility] Start: 09-01-2023 End: 09-01-2023 Patient encounter procedure Shaquille R NILL [facility] [place] Start: 08-22-2023 End: 08-23-2023 ambulatory Mayra Navarrete Facility:[facility] Start: 08-22-2023 End: 08-22-2023 Patient encounter procedure Shaquille R NILL [facility] Nill[facility] [place] Start: 08-22-2023 End: 08-22-2023 ambulatory MD Mayra Navarrete Work Phone: [facility] Work Phone: Start: 08-22-2023 End: 08-22-2023 Departed Referred MD Mayra Navarrete Work Phone: [facility] Start: 08-17-2023 End: 08-17-2023 ambulatory LUIS DANIEL BRUNNER [facility] Start: 08-16-2023 End: 08-16-2023 ambulatory TOO THOMPSON [facility] Start: 07-20-2023 End: 07-20-2023 ambulatory RADHA Linden MONTES Not Available Start: 07-18-2023 End: 07-19-2023 ambulatory Shaquille R NILL Facility: [place] Start: 07-18-2023 End: 07-18-2023 Patient encounter procedure Shaquille R NILL [facility] Nill[facility] [place] Start: 04-05-[address] [facility] Start: 04-05-2023 End: 04-05-2023 ambulatory MICHELLE Molina [facility] Start: 03-20-2023 End: 03-21-2023 ambulatory Nguyễn VELA Facility:[facility] Start: 03-20-2023 End: 03-20-2023 Patient encounter procedure Nguyễn VELA [facility] Start: 10-28-2022 DAYNA ORR, Provider : ALIYA YOUNG CASH PROCESSING SPECIALIST 1,[id number], Status: Pen, Time: 10:00 AM Mayra Navarrete Work Phone: [facility] DO Work Phone: Start: 10-28-2022 Patient encounter procedure Mayra Navarrete Work Phone: [facility] [facility] DO Work Phone: Start: 10-28-[address] Johnnie aldana [facility] Facility: Start: 10-27-2022 Telephone encounter Mayra Navarrete Work Phone: [facility] [facility] DO Work Phone: Start: 10-25-2022 End: 10-26-2022 ambulatory KWADWO CRUMP Facility:[facility] Start: 06-20-2022 End: 06-21-[address] MAYRA NAVARRETE . Facility:[facility] Start: 03-11-2022 End: 03-12-[address] MAYRA NAVARRETE . Facility:[facility] Start: 01-25-2022 Rx Renewal Mayra Navarrete Work Phone: [facility] 600 DO Work Phone: Start: 12-30-2021 Chart Update Mayra Navarrete Work Phone: [facility] 250 DO Work Phone: Start: 12-28-2021 Office outpatient vi sit 25 minutes Mayra Navarrete Work Phone: [facility] 250 DO Work Phone: Start: 12-28-2021 Patient encounter procedure Mayra Navarrete Work Phone: [facility] [facility] DO Work Phone: Start: 12-28-[address] Mayra Navarrete Facility: Start: 12-08-2021 Office outpatient vi sit 25 minutes Mayra Navarrete Work Phone: [facility] [facility] DO Work Phone: Start: 12-08-[address] Mayra Navarrete Facility: Start: 11-25-2021 End: 11-26-[address] MAYRA NAVARRETE . Facility: Start: 11-24-2021 End: 11-25-[address] MAYRA NAVARRETE . Facility: Procedures Date Procedure Procedure Detail Performing Clinician Start: 11-27-2023 Lipid panel JOHNNIE DERAS Start: 08-22-2023 Excision of basal cell carcinoma Shaquille ORDONEZVikas Start: 04-05-2023 Procedure on back Nguyễn VELA Start: 06-20-[address] MAYRA NAVARRETE . Comment on above: Performed By: #### GIPRADHAL #### [facility] [address] [place] [address] Dr. Layla Barrera Start: 04-09-2014 right knee arthroscopy Nguyễn VELA Start: 02-25-2003 Cystoscopic removal of ureteric stent Nguyễn VELA Arthroscopic knee operation Nguyễn VELA Comment on above: left Arthroscopy of knee Mayra Navarrete Work Phone: Comment on above: (Therapeutic) Bilateral; Cardiac catheterization Ruben Navarrete Work Phone: Colonoscopy Nguyễn VELA Comment on above: many Cystoscopy Nguyễn VELA Elbow joint operations Dougl as M Hoy Work Phone: Comment on above: Left; Esophagogastroduodenoscopy P apple VELA Excision of basal cell carcinoma Mayra M Hoy Work Phone: Excision of mass of breast Jesse LILLY Extracorporeal shock wave lithotripsy of calculus of kidney Nguyễn VELA heart catheterization Krish VELA Hemorrhoidectomy Nguyễnmaranda JOSEPH ERS History of repair of musculotendinous cuff of shoulder Nguyễn VELA Comment on above: left Operation on nose Mayra M Hoy Work Phone: Prostate Surgery Nguyễn JOSEPH ERS Renal lithotripsy Mayra M Hoy Work Phone: Repair of elbow Nguyễn HERRMANN [...] procedure 11/29/2024 10:20 AM EDT Office Visit [facility] [address] [place] [phone] Abdoul Timmons MD [address] [facility] [address] [place] [address] [facility] Start: 07-23-2024 End: 07-23-2024 Patient encounter procedure 07/23/2024 1:30 PM EST Office Visit [facility] [address] [place] [phone] Radha Montes MD [address] [place] [address] [facility] Start: 07-22-2024 End: 07-22-2024 Patient encounter procedure 07/22/2024 11:30 AM EST Office Visit [facility] [address] [place] [phone] Radha Montes MD [address] [place] [address] [facility] Start: 06-25-2024 End: 06-25-2024 Patient encounter procedure 06/25/2024 2:30 PM EST Office Visit [facility] [address] [place] [phone] Tariq Perez, [address] [place] [address] [facility] Start: 06-25-2024 End: 06-25-2024 ambulatory 06/25/2024 10:30 AM EST Treatment [facility] [address] [place] [phone] Moira Winkler PTA [facility] Start: 06-11-2024 End: 06-11-2024 ambulatory 06/11/2024 10:00 AM EST Treatment [facility] [address] [place] [phone] Katey Gee PTA [address] [place] [address] [facility] Start: 05-15-2024 End: 05-15-2024 ambulatory 05/15/2024 10:30 AM EST Treatment [facility] [address] [place] [phone] Gerard Katey, AUTOMATED TELLER MANAGER [address] [place] [address] [facility] Start: 05-07-2024 End: 05-07-2024 ambulatory [facility] Comment on above: Arrived Start: 03-10-2024 Influenza vaccination [facility] Start: 01-19-2024 ambulatory Ambulatory Facility:[facility] [place] Start: 11-27-2023 End: 11-26-2024 Lipid 1996 panel - Serum or Plasma Lipid Panel Lab Routine Mixed hyperlipidemia Expected: 11/27/2023 (Approximate), Expires: 11/26/2024 [facility] Service Area Work Phone: Comment on above: Expected: 11/27/2023 (Approximate), Expires: 11/26/2024 Start: 03-10-2023 COVID-19 Vaccine ( season) COVID-19 Vaccine ( season) [facility] Start: 12-06-2022 FUV, Provider: Johnnie Deras, Status: Pen, Time: 10:00 AM FUV, Provider: Johnnie Deras, Status: Pen, Time: 10:00 AM [facility] 250 DO Work Phone: Start: 11-24-2022 FUV, Provider: Johnnie Deras, Status: Pen, Time: 2:00 PM FUV, Provider: Johnnie Deras, Status: Pen, Time: 2:00 PM [facility] 250 DO Work Phone: Start: 12-28-2021 FUV, Provider: Johnnie Deras, Status: Pen, Time: 9:45 AM FUV, Provider: Johnnie Deras, Status: Pen, Time: 9:45 AM [facility] 250 DO Work Phone: Start: 12-22-2021 REST ONLY, Provider: [place] HHVI NUCLEAR 01,[id number], Status: Pen, Time: 8:00 AM REST ONLY, Provider: [place] HHVI NUCLEAR 01,[id number], Status: Pen, Time: 8:00 [facility] Work Phone: Start: 12-21-2021 STRESSNUC2, Provider : [place] Jaimes,[id number], Status: Pen, Time: 8:00 AM STRESSNUC2, Provider: [place] PINEDA NUCLEAR Fiona,[id number], Status: Pen, Time: 8:00 AM [facility] Work Phone: Start: 2001 Hepatitis B Vaccines (1 of 3 - Risk 3-dose series) Hepatitis B Vaccines (1 of 3 - Risk 3-dose series) [facility] Start: 2001 RSV patient s and/or patients aged 60+ years (1 - 1-dose 60+ series) RSV patients and/or patients aged 60+ years (1 - 1-dose 60+ series) [facility] Start: 11-03-1991 Zoster Vaccines (1 o f 2) Zoster Vaccines (1 of 2) [facility] Start: 11-03-1963 DTaP/Tdap/Td Vaccine s (1 - Tdap) DTaP/Tdap/Td Vaccines (1 - Tdap) [facility] Start: 1960 Hepatitis A Vaccines (1 of 2 - Risk 2-dose series) Hepatitis A Vaccines (1 of 2 - Risk 2-dose series) [facility] Start: 1941 Lipid panel Lipid Panel [facility] Start: 1941 Medicare Annual Wellness Visit Medicare Annual Wellness Visit (AWV) [facility] Start: 1941 Screening for osteoporosis Bone Density Scan [facility] Immunizations Immunization Date Immunization Notes Care Provider Rachele torres 07-26-2022 Fluad Quadrivalent 0 .5 ML Intramuscular Prefilled Syringe Mayra Navarrete [facility] Work Phone: 07-26-2022 influenza virus vaccine, unspecified formulation Nguyễn VELA [facility] 11-17-2021 Comirnaty 30 MCG/0.3 ML Intramuscular Suspension Mayra Navarrete Work Phone: [facility] [facility] DO Work Phone: 11-17-2021 SARS-CoV-2 mRNA (okkvvchxovg-vmzc-hnhfx se) vaccine Nguyễn VELA [facility] 05-20-2021 Pfizer-BioNTech COVID-19 Vacc 30 MCG/0.3ML Intramuscular Suspension Mayra Navarrete Work Phone: [facility] Comment on above: Result Comment: 2022: [id number] 05-12-2021 influenza, seasonal, injectable Johnnie Deras MD Work Phone: [facility] Work Phone: 11-17-2020 SARS-CoV-2 (COVID-19 ) mRNA BNT-162b2 vax Nguyễn [employer] [facility] [place] 10-29-2020 Pfizer-BioNTech COVID-19 Vacc 30 MCG/0.3ML Intramuscular Suspension Mayra Navarrete Work Phone: [facility] Comment on above: Result Comment: 2022: [id number] 10-28-2020 Moderna COVID-19 vaccine, bivalent, blue cap/cunningham label *Check age/dose* Johnnie Deras MD Work Phone: [facility] Work Phone: 10-27-2020 SARS-CoV-2 (COVID-19 ) mRNA BNT-162b2 vax Nguyễn [employer] [facility] [place] 10-06-2020 Pfizer-BioNTech COVID-19 Vacc 30 MCG/0.3ML Intramuscular Suspension Mayra Navarrete Work Phone: [facility] Comment on above: Result Comment: 2022: [id number] 09-29-2020 Moderna COVID-19 vaccine, bivalent, blue cap/cunningham label *Check age/dose* Johnnie Deras MD Work Phone: [facility] Work Phone: 04-23-2020 influenza virus vaccine, unspecified formulation [employer] [facility] 04-23-2020 influenza, high dose seasonal, preservative-free Mayra M [employer] Work Phone: [facility] [employer] DO Work Phone: 04-09-2018 influenza virus vaccine, unspecified formulation Mayra M [employer] Work Phone: [facility] [employer] 250 DO Work Phone: 07-10-2017 pneumococcal polysaccharide vaccine, 23 valent Mayra M [employer] [facility]: [facility] Work Phone: 04-09-2016 influenza virus vaccine, unspecified formulation Mayra M [employer] Work Phone: [facility] [employer] DO Work Phone: 04-09-2016 pneumococcal conjuga te vaccine, 13 valent Mayra M [employer] [facility]: [facility] Work Phone: 04-22-2015 influenza virus vaccine, unspecified formulation Nguyễn [employer] [facility] 04-22-2015 influenza, injectabl e, quadrivalent, contains preservative Mayra M Hoy Work Phone: [facility] 250 DO Work Phone: 04-09-2015 influenza virus vaccine, unspecified formulation Mayra M [employer] Work Phone: [facility] DO Work Phone: 05-22-2014 influenza virus vaccine, unspecified formulation Nguyễn VELA [facility] 05-22-2014 influenza, injectabl e, quadrivalent, contains preservative Mayra Navarrete Work Phone: [facility] [employer] 250 DO Work Phone: 07-10-2012 influenza virus vaccine, unspecified formulation Mayra Navarrete Work Phone: [facility] 250 DO Work Phone: 07-10-2011 pneumococcal polysaccharide vaccine, 23 valent Mayra Navarrete [facility]: [facility] Work Phone: influenza virus vaccine, unspecified formulation Mayra Navarrete Work Phone: [facility] DO Work Phone: Comment on above: 2011 NEGATED: Highlighted row has not occurred!07-18-2023 influenza virus vaccine, unspecified formulation Shaquille LILLY [facility] [place] Payers Date Payer Category Payer Self-pay [id number] 2018 Private Health Insurance [id number] 2006 Medicare [id number] 1959 Medicare [id number] 1959 Private Health Insurance [id number] 1941 Unknown [id number] 1941 Unknown [id number] [id number] 1940 Unknown [id number] 2.16. 840.1.888366.3.579.2.356 1941 Unknown [id number] 2.16.84 0.1.622659.3.579.2.593 1941 Unknown [id number] 2.16.84 0.1.131291.3.579.2.593 1941 Unknown [id number] 2.16.84 0.1.628683.3.579.2.593 1941 Unknown [id number] 2.16.84 0.1.100433.3.579.2.593 1941 Unknown [id number] 2.16.84 0.1.238478.3.579.2.593 1941 Unknown [id number] 2.16.8 40.1.507268.3.579.2.754 1941 Unknown [id number] 2.16.8 40.1.441383.3.579.2.754 1941 Unknown [id number] 2.16.8 40.1.486013.3.579.2.727 1941 Unknown [id number] 2.16.8 40.1.557374.3.579.2.727 1941 Unknown [id number] 2.16.8 40.1.735966.3.579.2.727 1941 Unknown [id number] 2.16.8 40.1.635471.3.579.2.727 1941 Unknown [id number] 2.16.8 40.1.219023.3.579.2.727 194 Unknown [id number] 2.16.8 40.1.397316.3.579.2.727 1941 Unknown [id number] 2.16.8 40.1.249993.3.579.2.1244 1941 Unknown [id number] 2.16.8 40.1.957929.3.579.2.1244 1941 Unknown [id number] 2.16.84 0.1.948289.3.579.2.125 1941 Unknown [id number] 2.16.84 0.1.623239.3.579.2.1259 1941 Unknown [id number] 2.16.84 0.1.950322.3.579.2.1258 1941 Unknown [id number] 2.16.84 0.1.961139.3.579.2.125 1941 Unknown [id number] 2.16.84 0.1.193548.3.579.2.1258 1941 Unknown [id number] 2.16.84 0.1.096762.3.579.2.1258 1941 Unknown [id number] 2.16.84 0.1.738058.3.579.2.1258 1941 Unknown [id number] 2.16.84 0.1.458220.3.579.2.1258 1941 Unknown [id number] 2.16.84 0.1.985403.3.579.2.1258 1941 Unknown [id number] 2.16.84 0.1.578087.3.579.2.9 1941 Unknown [id number] 2.16.84 0.1.657605.3.579.2.125 1941 Unknown [id number] 2.16.84 0.1.622893.3.579.2.125 1941 Unknown [id number] 2.16.84 0.1.263447.3.579.2.1259 Medicare [id number] Unknown Unknown [id number] Unknown [id number] 2.16.8 40.1.813553.3.579.2.531 Social History Date Type Detail Facility Start: 11-27-2023 End: 02-01-2024 Caffeine use Caffeine use -[facility] DO Work Phone: Comment on above: Coffee: 1 cup dailyS ac- Occasionally; Quit: 1991; Start: 03-20-2023 End: 07-27-2023 Tobacco smoking status Ex-smoker (finding) [facility] Tobacco smoking status Never [facility] Start: 11-27-2023 End: 02-01-2024 Sex Assigned At Male [facility] Start: 1940 Sex Assigned At Male [facility] History of tobacco use Current smoker [facility] Work Phone: History of tobacco use Cigarette Smoker [facility] Work Phone: Start: 07-27-2023 End: 11-27-2023 Tobacco use and exposure Smokeless tobacco non-user [facility] Work Phone: Start: 11-27-2023 End: 02-01-2024 Alcoholic beverage intake Lifetime non-drinker (finding) [facility] Work Phone: Start: 1940 Sex assigned at [facility] Work Phone: Start: 11-17-2023 End: 11-27-2023 Exposure to SARS-CoV-2 (event) Not sure [facility] Start: 07-27-2023 Alcohol Comment caffeine 1-2 cups/day [facility] NEGATED: Highlighted rowStart: NINF History of tobacco use Passive smoker [facility] Functional Status Date Assessment Result Facility 01-19-2024 Functional Status N/A [facility] 07-18-2023 Functional Status N/A [facility] 03-20-2023 Functional Status N/A [facility] Clinical Notes 03-20-2023 to 06-10-2024 Shaquille Valencia, PT - 06/10/2024 9:30 AM Elder Gee, AUTOMATED TELLER MANAGER - 05/22/2024 11:30 AM Jessee Valencia, PT - 05/07/2024 9:40 AM Dieter Valencia, PT - 04/23/2024 9:40 AM EDT Note Date & Type Note Facility 06-10-2024 History of Present illness Narrative Travis Coburn [id number] 06/05/24 Subjective: 05/07: visit one was with AUTOMATED TELLER MANAGER Will refer back to Moira after reevaluation Previously: 83 yom sent to PT by Dr Loreta Amanda for vestibular schwannoma and dizziness Not sure if he will receive surgery Wait and see per pt, another mri in 6 months to monitor 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 No exo/eso/hyper/hypo tropia noticed. No phoria noticed. Head Impulse Test: Negative [employer] optodrum test: Negative Upper Motor Neuron: Negative finger to nose, hoffmans, hyperreflexia, rapid alt hand movt *Cervical Motion: Impaired motion and discomfort *Cervical Massage vibration test with goggles: nystagmus and loss of balance Vertebral Artery Screening test (VAST): negative Smooth Pursuit Neck Tosrion Test (SPNT): Negative *Cervical Proprioception Testing: Poor head neck awareness *Sensory Organization Performance Test: Challenge test 4 and fail test 6 *Fukuda test: Spin R Ocular assessment with goggles: Negative spontaneous nystagmus, gaze evoked nystagmus *High Frequency Head shake (2 Hz) with video goggles: Post nystagmus toward L (strong) ear suggesting R unilateral weakness Motion Sensitivity Test: will test next session *Computerized Dynamic Visual Acuity test: impaired vor horizonal motion Therapeutic Intervention: reEvaluation Sop fail 6 has not improved on this test CDVAT pass improvement Motion Sensitivity has also improved Mai remains medium fall risk Neck very tight performed manual thearpy and traction today Aerobics and heat to neck Refer to Katey see flow sheet instructions to continue 2-4 visits per month focusing on balance 43 minutes Assessment: Suspected Therapy Diagnosis: 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 Please sign below. Shaquille Valencia, PT, Dsc, OCS, COMT, AIB-VAM Director Vestibular Rehabilitation documented in this encounter [facility] 05-22-2024 History of Present illness Narrative Travis Coburn [id number] 05/22/24 Visit Number: 6 Supervised Time: 60' Total Time: 70' Subjective: Pain: Reports mild cervical stiffness upon arrival. Reports increase unsteadiness, dizziness from the tumor. Reports increase dizziness especially with quick movements. New onset pain R ear comes and goes. MRI scheduled for July 2024 Progress: Denies experiencing any vertigo. Reports difficulty focusing eyes when turning head while driving such as when at intersection looking for cross traffic. Compliant with HEP. Therapeutic Intervention: Manual: x15 mins cervical PROM, passive stretches B UT, SOR, light manual cervical distraction Therapeutic Exercises: x15 mins supervised and 10' unsupervised per exercise grid Neuro Re-Ed: x30' supervised static and dynamic balance, proprioception, VOR Modalities: x10 mins MHP (with extra layer) to cervical spine while on nustep Assessment: Good tolerance overall with therex. Good response to VOR, min TCs provided to avoid head movement with pursuits. Min unsteadiness and gisele path deviation with amb with head turns, cueing for increased edgard. Significant unsteadiness during tandem stance on even surface with eyes closed, multiple LOB with min-moda to correct. Significant weakness noted with HR/TR on even surface, continuous TCs to avoid trunk sway and Vcs to avoid knee flexion, no carryover. Multiple seated rest breaks required throughout session d/t c/o back pain; hx surgery L1. Cueing for core engagement with standing exercises for improved stability. Denied any dizziness post session. Problems: Fukuda spin R, SOP fail test 6 challenge 2 and 4, Mai mod fall risk, Poor neck motion, Neck discomfort, Occasional headaches, fail cdvat horizontal motion impaired vor Hearing loss, Goals: Fukuda negative, Pass SOP, Mai low fall risk, Restore neck motion, HFHS negative, Reduce neck/head pain, restore motion sensitivity, restore vor, Plan: Vestibular adaptation habituation substitution and neck therapy And conditioning Frequency/Duration: Once every other week Cosigned by Shaquille Valencia, PT at 05/28/2024 1:53 PM EST documented in this encounter [facility] 05-07-2024 History of Present illness Narrative Travis Vicky Almas [id number] 05/07/24 Subjective: 05/07: 5th visit. 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 No exo/eso/hyper/hypo tropia noticed. No phoria noticed. Head Impulse Test: Negative [employer]okinetics optodrum test: Negative Upper Motor Neuron: Negative finger to nose, hoffmans, hyperreflexia, rapid alt hand movt *Cervical Motion: Impaired motion and discomfort *Cervical Massage vibration test with goggles: nystagmus and loss of balance Vertebral Artery Screening test (VAST): negative Smooth Pursuit Neck Tosrion Test (SPNT): Negative *Cervical Proprioception Testing: Poor head neck awareness *Sensory Organization Performance Test: Challenge test 4 and fail test 6 *Fukuda test: Spin R Ocular assessment with goggles: Negative spontaneous nystagmus, gaze evoked nystagmus *High Frequency Head shake (2 Hz) with video goggles: Post nystagmus toward L (strong) ear suggesting R unilateral weakness Motion Sensitivity Test: will test next session *Computerized Dynamic Visual Acuity test: impaired vor horizonal motion Therapeutic Intervention: reEvaluation Sop fail 6 about the same Cdvat ms pass Aerobics heat Balance conditioning Refer to Katey Assessment: Suspected Therapy Diagnosis: 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 Please sign below. 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 No exo/eso/hyper/hypo tropia noticed. No phoria noticed. Head Impulse Test: Negative Optokinetics optodrum test: Negative Upper Motor Neuron: Negative finger to nose, hoffmans, hyperreflexia, rapid alt hand movt *Cervical Motion: Impaired motion and discomfort *Cervical Massage vibration test with goggles: nystagmus and loss of balance Vertebral Artery Screening test (VAST): negative Smooth Pursuit Neck Tosrion Test (SPNT): Negative *Cervical Proprioception Testing: Poor head neck awareness *Sensory Organization Performance Test: Challenge test 4 and fail test 6 *Fukuda test: Spin R Ocular assessment with goggles: Negative spontaneous nystagmus, gaze evoked nystagmus *High Frequency Head shake (2 Hz) with video goggles: Post nystagmus toward L (strong) ear suggesting R unilateral weakness Motion Sensitivity Test: will test next session *Computerized Dynamic Visual Acuity test: impaired vor horizonal motion Therapeutic Intervention: reEvaluation Sop fail 6 sway 4, cdvat pass, mas pass Review hep Begin mental task balance Introduce to moira gutierrez Aerobics heat 38 See flow sheet May need moira bustos test balance next session and decide Assessment: Suspected Therapy Diagnosis: 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 Please sign below. Shaquille Valencia, PT, Dsc, OCS, COMT, AIB-VAM Director Vestibular Rehabilitation documented in this encounter [facility] 04-17-2024 Note [facility] Patient: Travis Coburn; 83 y.o. Visit date: 04/17/24 Reason for today's visit: Follow up for CKD stage 3 and Hypertension SUBJECTIVE: BACKGROUND: Travis Coburn is a 83 y.o. male has a past medical history of Diabetes mellitus ([facility]), Hypertension, Polymyalgia rheumatica ([facility]), and Psoriatic arthritis ([facility]). Patient has history of Type II diabetes on oral hypoglycemic agents (Glyburide) for several years, hba1c reportedly has been around 6-7%. No diabetic retinopathy and he follows with ophthalmology regularly Patient reported taking Motrin every day for [...] No family history of kidney disease Today 04/17/24 patient presents for a follow-up visit: Patient feels fine, no major concerns. He has mild dyspnea on exertion but no leg swelling or weight gain. 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 He is being managed with Physical therapy He takes Irbesartan 300 mg daily and Carvedilol 6.25 mg bid. He has stopped taking Hydrochlorothiazide and lasix. 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 He takes Irbesartan 300 mg daily and Carvedilol 6.25 mg bid. He has stopped taking Hydrochlorothiazide and lasix. He denies edema in lower extremities. -- Review of systems Review of Systems Constitutional: Negative for appetite change, fatigue and unexpected weight change. HENT: Positive for hearing loss. Negative for congestion and facial swelling. Respiratory: [...] is not nervous/anxious. OBJECTIVE: Visit Vitals BP 127/69 (BP Location: Right arm, Patient Position: Sitting) Pulse 77 Resp 16 Ht 1.753 m (5' 9 ) Wt 116 kg (256 lb) BMI 37.80 kg/m??? Smoking Status Former BSA 2.38 m??? Physical Exam Constitutional: General: He is [...] labs as listed below: Chemistry: Lab Results Component Value Date NA 136 04/04/2024 K 4.0 04/04/2024 CL 102 04/04/2024 CO2 31 04/04/2024 CO2 30 11/25/2021 ANIONGAP 7 04/04/2024 BUN 18 04/04/2024 CREATININE 1.10 04/04/2024 EGFR 67.0 04/04/2024 GLU 94 11/25/2021 CALCIUM 9.5 04/04/2024 MG 1.7 (L) 04/04/2024 PHOS 2.5 04/04/2024 VITD25 16.1 (L) 10/02/2023 URICAC 7.1 08/23/2018 ALBUMIN 4.2 04/04/2024 PROT 6.7 02/15/2024 AST 17 02/15/2024 ALT 19 02/15/2024 BILITOT 0.8 02/15/2024 BILIDIR 0.1 05/27/2021 ALKPHOS 90 02/15/2024 Hematology & Iron studies: Lab (more content not included)... [facility] 02-15-2024 Note Attestation signed by Luis Daniel Brunner MD at 02/18/2024 9:41 AM Using the attestations below, the signing clinician agrees that I have read and verified that I have personally reviewed the documentation and ensure that the documentation accurately reflects the encounter. GC: I saw this patient on the day of the encounter, performed the roberson portion(s) of the service participated in the management, and confirmed the resident's documentation. Please note that I may need additional personal documentation. Subjective Patient ID: Travis Coburn is a 83 y.o. male who presents for Follow-up (6 month follow up). HPI MrLilian Coburn is a 81 y.o. male with OA, CTS, Polymyalgia Rheumatica and Psoriatic Arthritis who presents today for routine follow-up. Patient was last seen in the clinic on 08/17/2023. Patient currently takes 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 10 mg weekly (2.5 mg x4 tablets) and prednisone 5 mg daily (2.5 mg x2 tablets) daily. Reports tolerating the medications well with no side effects. In terms of his polymyalgia and arthritis, he reports feeling well. He does have mild morning stiffness and stiffness after prolonged rest but remains the same as last visit. Patient continues to reports changes in his vision involving blurriness and decreased peripheral vision. He reports that he had last seen the indian nanny about 6 months ago with no concerns and has a follow up with them soon. Additionally patient is following with nephrology to monitor his renal function. Currently his kidney function is stable. Patient has also been following with ENT for recently diagnosed right acoustic neuroma. Associated symptoms include tinnitus, difficulty with balance, and dizziness. Currently they are going to continue to monitor him with repeat imaging in 6 months. He has a history of mouth sores but denies any today, no other concerns at this time. Review of Systems Constitutional: Negative for appetite change, chills and fatigue. HENT: Positive for tinnitus. Negative for mouth sores. Eyes: Blurriness, decreased peripheral vision Respiratory: Negative for cough and shortness of breath. Cardiovascular: Negative for chest pain. Gastrointestinal: Negative for diarrhea, nausea and vomiting. Musculoskeletal: Positive for arthralgias. Negative for back pain and joint swelling. Neurological: Positive for dizziness. Balance problems Psychiatric/Behavioral: Negative for agitation. The patient is not nervous/anxious. Objective Visit Vitals BP 125/74 (BP Location: Left arm, Patient Position: Sitting) Pulse 76 Ht 1.753 m (5' 9 ) Wt 109 kg (240 lb) BMI 35.44 kg/m??? Smoking Status Former BSA 2.3 m??? [...] mg daily and leucovorin 5 mg. - Patient is tolerating 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 10 mg total (2.5 mg x4 tablets) weekly. However due to ongoing concerns with his vision/eyes, skin patient is interested in decreasing dose. Discussed with him reducing the dose to 5 mg total (2.5 mg x2) weekly and seeing how he tolerates it. If worsening symptoms, patient can resume back to original dose - Continue with prednisone 5 mg daily (2.5 mg x2 tablets) - Continue with folic acid supplementation - routine CBC and CMP ordered today - Previously discussed with patient the potential risk and benefit of 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 including chance of infection nausea hair loss oral ulcers or liver toxicity bone marrow toxicity etc. and the need to have regular laboratory monitoring for potential 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 toxicity/side effect. Also we discussed the p (more content not included)... [facility] 01-19-2024 Hospital Discharge instructions Patient Education 01/19/2024 12:11:12 Benign Prostatic Hyperplasia Benign Prostatic Hyperplasia Benign [...] urethra. Follow these instructions at home: Take [id number] and prescription medicines only as told by [...] provider. Document Revised: 01/12/2022 Document Reviewed: 01/12/2022 [employer] Patient Education 2022 [employer]. Follow Up Care 03/20/2023 15:42:16 With:MIRIAN TURNER, Nguyễn Peter, URL Address: [address] [place] [id number]- When: Unknown [facility] 11-27-2023 History of Present illness Narrative Subjective [...] Rfl: Assessment/Plan 1. Coronary artery disease involving [place] coronary artery of [place] heart without angina pectoris No recurrence of symptoms such as those that preceded his original diagnosis. 2. Benign essential hypertension Review of treatment strategy demonstrates good control 3. Mixed hyperlipidemia Review of treatment strategy demonstrates good control 4. Former cigarette smoker Congratulated on cessation Scribe Attestation By signing my name below, IBan LPN, Javieribe attest that this documentation has been prepared [...] discussion and plan. documented in this encounter [facility] Work Phone: 11-27-2023 Instructions Ban Lisa LPN [...] instructions on exercise. documented in this encounter [facility] Work Phone: 10-11-2023 Note Attestation signed by Too Thompson MD at 10/12/2023 11:42 PM I saw, interviewed, examined and evaluated the patient with Nephrology fellow Dr. Faith Matias. I participated in the medical management of the patient. I reviewed the fellow's note and agree with the fellow's documentation in the note. Too Thompson MD Faculty, Division of Nephrology, Department of Medicine, [facility]. [facility] Patient: Travis Coburn; 82 y.o. Visit date: 10/11/23 Reason for today's visit: Follow up for CKD stage 3 and Hypertension SUBJECTIVE: BACKGROUND: Travis Coburn is a 82 y.o. male has a past medical history of Diabetes mellitus ([facility]), Hypertension, Polymyalgia rheumatica ([facility]), and Psoriatic arthritis ([facility]). 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 [facility] 08-17-2023 Note Attestation signed by Luis Daniel [...] eyes as of lately. He notes some [id number] blurriness to his vision that comes and goes. He states this started prior to even last seeing his indian nanny. He notes he last saw his indian nanny about 5-6 months ago and all was [...] Follow-up in 6 months Patient seen by Gumrao Butler MS4 and Dr. Brunner [facility] 08-16-2023 Note Attestation signed by Too Thompson MD at 08/19/2023 9:50 PM I saw, interviewed, examined and evaluated the patient with Nephrology fellow Dr. Faith Matias. I participated in the medical management of the patient. I reviewed the fellow's note and agree with the fellow's documentation in the note. Too Thompson MD Faculty, Division of Nephrology, Department of Medicine, [facility]. [facility] Patient: Travis Coburn; 82 y.o. Visit date: 08/16/23 Reason for today's visit: New patient, new Acute kidney injury SUBJECTIVE: BACKGROUND: Travis Coburn is a 82 y.o. male has a past medical history of Diabetes mellitus ([facility]), Hypertension, Polymyalgia rheumatica ([facility]), and Psoriatic arthritis ([facility]). Patient has history of Type II diabetes [...] oriented to pe (more content not included)... [facility] 07-18-2023 Note Chief Complaint consultation for skin [...] smoker, quit more (more content not included)... [facility] Comment on above: Result Comment: Elec tronically Signed By: MAXX TURNER, Shaquille Peter\.chavez\Date and Time Signed: 07/18/23 14:37 EST 06-09-2023 Note TC to patient notifi ed of nephrology referral has been sent. NS [facility] 06-09-2023 Note Pt called needing a referral for nephrology. Pt states he would like to set up an appointment in [place], discussed in telephone call with you. [facility] 03-20-2023 Hospital Discharge instructions Patient Education 03/20/2023 [...] urethra. Follow these instructions at home: Take [id number] and prescription medicines only as told by [...] provider. Document Revised: 01/12/2022 Document Reviewed: 01/12/2022 [employer] Patient Education 2022 [employer]. Follow Up Care 08/23/2021 11:50:10 With:Nguyễn VELA MD, URL Address: [facility] [address], [place] [id number]- [phone] When:Within 6 Month(s) [facility] Evaluation + Plan note Future Appointments Appointment Date:09/18/2023 12:45:00 PM Scheduled Provider:Nguyễn [facility]ELA [facility] Office Visit [facility] Evaluation + Plan note Future Appointments Appointment Date:08/22/2023 01:40:00 PM Scheduled Provider:Shaquille LILLY MD Location: [facility] Appointment Type: Procedure 30 Appointment Date:09/18/2023 12:45:00 PM Scheduled Provider:Nguyễn VELA MD [facility] Appointment Type:URO Office Visit [facility] [place] Evaluation + Plan note Future Appointments Appointment Date:09/01/2023 01:40:00 PM Scheduled Provider:Shaquille LILLY MD Location: [facility] Appointment Type: Established 15 Appointment Date:09/18/2023 12:45:00 PM Scheduled Provider:Nguyễn VELA MD Location:[facility] Appointment Type:URO Office Visit [facility] [place] Evaluation + Plan note Future Appointments Appointment Date:09/13/2023 03:00:00 PM Scheduled Provider:Shaquille LILLY MD Location:[facility] Appointment Type: Established 15 Appointment Date:09/18/2023 12:45:00 PM Scheduled Provider:Nguyễn VELA MD Location:[facility] Appointment Type:URO Office Visit General [facility] [place] Evaluation + Plan note Future Appointments Appointment Date:11/27/2023 11:30:00 AM Scheduled Provider:Nguyễn VELA MD Location:[facility] Appointment Type:URO Office Visit [facility] [place] Evaluation note No assessment inform ation available [facility] Work Phone: Evaluation note Diagnosis Coronary artery disease involving [place] coronary artery of [place] heart without angina pectoris- Primary Benign essential hypertension Essential hypertension, benign Mixed hyperlipidemia Former cigarette smoker Personal history of tobacco use, presenting hazards to health documented in this encounter [facility] Work Phone: Evaluation note* Diagnosis Cervicalgia- Primary Balance disorder Unilateral vestibular weakness, right [facility] Diagnosis Unilateral vestibular weakness, right- Primary Cervicalgia Balance disorder [facility] Diagnosis Balance disorder- Primary Unilateral vestibular weakness, right Cervicalgia [facility] Diagnosis Unilateral vestibular weakness, right- Primary Cervicalgia Balance disorder [facility] N[facility]ative* She returns prematurely at the suggestion of his primary care physician. Recently he has been experi encing a wide variety of symptoms. He complains [...] he requires adjustment in equipment or settings. Wealso touched on the merits of diet exercise and weight loss and he understands her recommendations. * He will follow-up in the near future when stress testing is done. He also apparently had a Holter monitor last week and we are not in receipt of that and this too will be reviewed at his next visit. [facility] [address] DO Work Phone: History of Present [...] will be reviewed at his next visit. [facility] [address] DO Work Phone: History of Present [...] recommendation and will attempt to implement our recommendations.[facility] DO Work Phone: Hospital course Narrative No data available for this section [facility] Hospital Discharge instructions No data available for this section General Surgery [facility] note No data available for this section [facility] reason for referral (narrative)* Consultation (Routine) - Authorized Specialty Diagnoses / Procedures Referred By Aimee t Referred To Contact Cardiology Diagnoses Coronary artery disease involving [place] coronary artery of [place] heart without angina pectoris Procedures Follow Up In Cardiology Johnnie Deras MD [address] [place] [address] 2, [address] [address] Johnnie Deras MD [address] [place] [address], [address] [address] Referral ID Status Reason Start Date Expiration Date V isits Requested Visits Authorized [id number] Authorized 11/27/2023 11/26/2024 1 1 [facility] Work Phone: Reason for visit Narrative* Rehabilitation - Outpatient (Routine) - Authorized Specialty Diagnoses / Procedures Referred By Aimee cruz Referred To Contact Physical Therapy Diagnoses Benign neoplasm of cranial nerves (CMS/HCC) Dizziness and giddiness Procedures [facility] EVALUATION LOW COMPLEX [place] [address] [place] [id number] Phone: tel: Shaquille Valencia, PT [address] [facility] [address] [place] [address] Phone: tel: fax: Referral ID Status Reason Start Date Expiration Date V isits Requested Visits Authorized [id number] Authorized 03/06/2024 09/02/2024 25 29 [facility]* [facility] - Outpatient (Routine) - Authorized Specialty Diagnoses / Procedures Referred By Amiee t Referred To Contact Physical Therapy Diagnoses Benign neoplasm of cranial nerves (CMS/HCC) Dizziness and giddiness Procedures [facility] EVALUATION LOW COMPLEX [address] [place] [address] [place] [address] Phone: tel: Shaquille Valencia, PT [address] [place] [address] [place] [address] Phone: tel: fax: Referral ID Status Reason Start Date Expiration Date V isits Requested Visits Authorized [id number] Authorized 03/06/2024 07/09/2024 25 29 [facility] Summary Purpose Family History No Family History [...] section and content) DATE CREATED AUTHOR 11/30/2021 [facility] DATE CREATED AUTHOR AUTHOR'S ORGANIZ ATION 12/31/2021 [facility] DATE CREATED AUTHOR AUTHOR'S ORGANIZ ATION 01/01/2022 [employer] DATE CREATED AUTHOR AUTHOR'S ORGANIZ ATION 10/29/2022 [facility] Center DATE CREATED AUTHOR AUTHOR'S ORGANIZ ATION 10/30/2022 [facility] DATE CREATED AUTHOR AUTHOR'S ORGANIZ ATION 04/12/2023 [facility] DATE CREATED AUTHOR AUTHOR'S ORGANIZ ATION 04/14/2023 [facility] ical Center DATE CREATED AUTHOR AUTHOR'S ORGANIZ ATION 08/25/2023 [facility] DATE CREATED AUTHOR AUTHOR'S ORGANIZ ATION 11/14/2023 [facility] ical Center DATE CREATED AUTHOR AUTHOR'S ORGANIZ ATION 02/08/2024 [facility] DATE CREATED AUTHOR AUTHOR'S ORGANIZ ATION 06/05/2024 [facility] DATE CREATED AUTHOR AUTHOR'S ORGANIZ ATION 06/21/2024 [facility] Reason for Visit (unrecogniz ed section and content) Reason Comments Annual Exam 1yr Patient Care team informatio n (unrecognized section and content) Team Status: Active Member Role Status Dates Mayra Navarrete MD Primary Care Provider Active Team Status: Inactive Member Role Status Dates Mayra Navarrete MD Primary Care Provider Active Start: August 22, 2023 End: August 22, 2023 Shaquille Lilly MD FACS Attending Provider Active Start: August 22, 2023 End: August 22, 2023 Global Climate Change Researcher Relationship Specialty Start Date End Date Mayra Navarrete MD [address] [place] [address] PCP - General 12/08/21 Global Climate Change Researcher Relationship Specialty Start Date End Date Mayra Navarrete MD [address] [place] [phone] PCP - General Family Medicine 10/20/23 Global Climate Change Researcher Relationship Specialty Start Date End Date Mayra Navarrete MD [address] [place] [address] PCP - General Family Medicine 10/20/23 Global Climate Change Researcher Relationship Specialty Start Date End Date Mayra Navarrete MD [address] [place] [address] PCP - General Family Medicine 10/20/23 Goals (unrecognized section and content) Goals may [...] BE BASED ON THE PRIMARY CLINICAL RECORDS. [facility]. provides no warranty or guarantee of the accuracy or completeness of information in this document.
[2024-06-24 09:55] LABS: Basophils Percent Auto 0.5 % (0.2-2.0); Eosinophils Absolute Auto 0.2 10^3/uL (0.0-0.7); Eosinophils Percent Auto 2.7 % (0.9-7.0); Hematocrit 42.2 % (42.0-54.0); Immature Granulocytes Abs Auto 0.09 10^3/uL (0.00-0.03); Immature Granulocytes Pct Auto 1.1 % (0.0-0.5); Lymphocytes Percent Auto 24.4 % (20.5-60.0); Mean Corpuscular HGB Conc 33.2 g/dL (29.9-35.2); Mean Corpuscular Hemoglobin 31.7 pg (25.9-34.0); Mean Corpuscular Volume 95.5 fL (80.0-94.0); Mean Platelet Volume 10.6 fL (9.5-13.5); Monocytes Absolute Auto 0.7 10^3/uL (0.3-0.8); Monocytes Percent Auto 8.3 % (1.7-12.0); Neutrophils Absolute Auto 5.2 10^3/uL (1.4-6.5); Platelet Count 170 10^3/uL (150-450); Red Blood Count 4.42 10^6/uL (4.70-6.10); Red Cell Distribution Width 13.1 % (11.0-15.0); White Blood Count 8.2 10^3/uL (4.0-11.0)
[2024-06-24 10:56] LABS: Alanine Aminotransferase 25 U/L (16-63); Albumin Level 3.3 g/dL (3.4-5.0); Alkaline Phosphatase 91 U/L (46-116); Anion Gap 11.6; Aspartate Amino Transferase 15 U/L (15-37); BUN Creatinine Ratio 13.4; Bilirubin Total 0.6 mg/dL (0.2-1.0); Calcium 9.1 mg/dL (8.5-10.1); Carbon Dioxide 28.5 mmol/L (21.0-32.0); Chloride 105 mmol/L (98-107); Chol HDL Ratio 3.9; Cholesterol 197 mg/dL (<=200); Estimated GFR (African America >60 (>=60 mL/min/1.73m^2); Estimated GFR (Non-African Ame 51 (>=60 mL/min/1.73m^2); Free T3 2.22 pg/mL (2.18-3.98); Globulin 3.4 g/dL; Glucose 114 mg/dL (74-106); HDL Cholesterol 51 mg/dL (40-60); LDL Cholesterol Calculated 122.2 mg/dL; Potassium 4.1 mmol/L (3.5-5.1); Sodium 141 mmol/L (136-145); Thyroid Stimulating Hormone 4.073 uIU/mL (0.358-3.740); Total Protein 6.7 g/dL (6.4-8.2); Triglycerides 119 mg/dL (<=150); VLDL CHOLESTEROL 23.8 mg/dL
[2024-06-24 11:05] LABS: Prostate Specific Antigen Scrn 2.09 ng/mL (<=4.00)
[2024-06-24 11:08] LABS: Estimated Average Glucose 151 mg/dL; Glycohemoglobin A1C 6.9 % (4.5-6.2)
== END 2024-06-24 09:18 | disposition home or self-care (01) ==
LOC: LAB 09:20
PROVIDERS: PCP Family Medicine; Visit Provider Family Medicine
DX: E66.3 Overweight (principal); I10 Essential (primary) hypertension; E11.9 Type 2 diabetes mellitus without complications; I87.8 Other specified disorders of veins; D33.3 Benign neoplasm of cranial nerves; E03.9 Hypothyroidism, unspecified; Z12.5 Encounter for screening for malignant neoplasm of prostate
CPT/HCPCS: 36415; 80053; 80061; 83036; 84436; 84443; 84481; 84550; 85025; G0103

== ENCOUNTER 2024-06-30 13:26 | Emergency (ER) | payer MEDICARE, OTHER, SELFPAY ==
[2024-06-30 13:30] VITALS: BP 144/83; PULSE 83; TEMP 36.5; O2SAT 95; BMI 35.4
--- OUTSIDE RECORDS SUMMARY | 2024-06-30 13:36 | XMS_ITS | CCD ---
Author Organization [facility] Care Team Providers Care Aged Or Disabled Care Worker Name Role Phone Mayra Navarrete Unavailable Unavailable [...] Unavailable HOY ., DR NUNEZ Consulting Unavailable WASHINGTON, DR CJ Hernandes Consulting Unavailable HOY ., DR NUNEZ Admitting Unavailable HOY ., DR NUNEZ Attending Unavailable MISC, DR RIVAS Primary Care Unavailable LANDON ., DR NUNEZ Consulting Unavailable KWADWO CRUMP Admitting Unavailable KWADWO CRUMP Attending Unavailable LANDON ., DR NUNEZ Primary Care Unavailable KWADWO CRUMP Consulting Unavailable Mayra Navarrete Primary Care Physician [phone] MICHELLE BARRY Attending Unavailable MICHELLE BARRY Admitting Unavailable MAYRA NAVARRETE Primary Care Unavailable MAYRA NAVARRETE Primary Care Unavailable MD Mayra Navarrete Primary Care Provider MD Shaquille Lilly Attending Provider Mayra Navarrete Primary Care Unavailable Shaquille Lilly Attending Unavailable Shaquille Lilly Admitting Unavailable Shaquille LILLY Attending Unavailable MAXX, Shaquille Peter Attending Unavailable MAXX, Shaquille Peter Attending Unavailable Nguyễn VELA Attending Unavailable Nguyễn VELA Attending Unavailable Shaquille LILLY Attending Unavailable Mayra Navarrete Referring Unavailable Mayra Navarrete MD Primary Care Provider [phone] JOHNNIE DERAS Attending Unavailable MAYRA NAVARRETE Primary Care Unavailable LORETA BARRAGAN E Attending Unavailable MAYRA NAVARRETE Primary Care Unavailable Mayra Navarrete MD Primary Care Provider [phone] TOO THOMPSON Attending Unavailable LUIS DANIEL BRUNNER Attending Unavailable KRYSTEN, TOO Attending Unavailable LUIS DANIEL BRUNNER Referring Unavailable TOO THOMPSON Attending Unavailable LUIS DANIEL BRUNNER Attending Unavailable PHILIPPE ROUSE Attending Unavailable DEPKATEY ROLLE Attending Unavailable LAUREL, LORETA Referring Unavailable DEPOYKATEY Attending Unavailable LAUREL, LORETA Referring Unavailable ERIKSHAQUILLE Attending Unavailable LAUREL, LORETA Referring Unavailable DEPOYKATEY Attending Unavailable LAUREL, LORETA Referring Unavailable ERIKSHAQUILLE Attending Unavailable LAUREL, LORETA Referring Unavailable ERIKSHAQUILLE Attending Unavailable LAUREL, LORETA Referring Unavailable ERIKSHAQUILLE Attending Unavailable LAUREL, LORETA Referring Unavailable ERIKSHAQUILLE Attending Unavailable LAUREL, LORETA Referring Unavailable ERIKSHAQUILLE Attending Unavailable LAUREL, LORETA Referring Unavailable MEGAN QUIÑONEZ Attending Unavailable MEGAN QUIÑONEZ Attending Unavailable MAYRA NAVARRETE Referring Unavailable YUE GARCIA Attending Unavailable MAYRA NAVARRETE Referring Unavailable RADHA MONTES Attending Unavailable RADHA MONTES Attending Unavailable Allergies Allergy Classification Reported Allergen(s) Allergy Type Date of Onset Reaction(s) Facility (11 sources) bee pollen Allergy to substance (finding) [facility] y 250 DO Work Phone: (20 sources) Penicillins; Translations: [Penicillins] Allergy to drug (finding) 9 Anaphylaxis (disorder) [facility] (11 sources) Animal dander - Cats Allergy to substance (finding) [facility] y 250 DO Work Phone: (1 source) Penicillins Drug allergy (disorder) [facility] (8 sources) Latex; Translations: [Latex] Drug allergy 2 Unknown (qualifier value) [facility] (6 sources) Sulfonamides (Antibiotic); Translations: [sulfa drugs] Propensity to adverse reactions to drug [facility] (3 sources) penciclovir; Translations: [penciclovir] Drug Allergy 1 anaphylaxis [facility] (3 sources) Sulfonamides (Antibiotic); Translations: [Sulfa (Sulfonamide Antibiotics)] Allergy to substance 9 Anaphylaxis [facility] (1 source) Penicillins Drug allergy (disorder) 9 [facility] (3 sources) Bee pollen; Translations: [BEE POLLEN] Drug Allergy 4 Unknown [facility] Work Phone: (1 source) Penicillins Drug Allergy 2 Anaphylaxis [facility] Work Phone: (3 sources) Cat Dander; Translations: [CAT DANDER] Allergy to substance 4 Unknown [facility] Work Phone: (16 sources) Bee pollen Allergy to substance [address] [facility] Work Phone: (16 sources) Penicillins Propensity to adverse reactions 4 [facility] Work Phone: (16 sources) Sulfonamides (Antibiotic) Drug Intolerance [address] [facility] (16 sources) Cat Hair Extract Allergy to substance [address] [facility] Medications Current Medications Medication Drug Class(es) Dates Sig (Normalized) Sig (Original) acetaminophen 500 mg oral tablet (16 sources) take 1 tablet by mouth twice [...] Start: 03-26-2014 take 2 tablets by mo [facility] once daily at bedtime Elavil 25 mg Tab 50 mg = 2 tab(s), Oral, Once a day (at bedtime) Start Date: 03/26/14 Status: Ordered take 1 tablet by [facility] once daily at bedtime amitriptyline (Elavil) 25 [...] 12:00am Start: 06-13-2016 take 1 capsule by [facility] once daily calcium carbonate-vitamin D3 600 mg-10 mcg (400 unit) capsule Take 1 capsule by mouth once daily. 06/13/2016 Active carvedilol 6.25 mg oral tablet (18 sources) alpha-Adrenergic Sapphire, beta-Adrenergic Sapphire Start: 08-31-2023 take 1 tablet by mouth in the morning carvedilol (Coreg) 6.25 MG tablet Take 6.25 mg by mouth in the morning and 6.25 mg in the evening. Take with meals. 08/31/2023 Active cetirizine hydrochloride 10 mg oral tablet (16 sources) Histamine-1 Receptor Antagonist Start: 09-21-2023 take 1 tablet by mouth once daily cetirizine (ZyrTEC) 10 MG tablet Take 10 mg by mouth Daily 09/21/2023 Active doxycycline monohydrate 100 mg oral tablet (16 sources) Tetracycline-class Drug take 1 tablet by mouth in the morning doxycycline (Adoxa) 100 MG tablet Take 100 mg by mouth in the morning and 100 mg before bedtime. Take with a full glass of water and do not lie down for at least 30 minutes after. Active fluorouracil 50 mg/ml topical cream (16 sources) Nucleoside Metabolic Inhibitor Start: 02-01-2024 fluorouracil [...] Status: Ordered glimepiride 1 mg oral tablet (20 sources) Sulfonylurea Start: 07-14-2023 take 1 tablet [...] Active hyoscyamine sulfate 0.125 mg sublingual tablet (16 sources) hyoscyamine (Lev sin) 0.125 MG SL tablet DISSOLVE 1 TABLET UNDER TONGUE 4 TIMES DAILY NEEDED FOR ABDOMINAL PAIN Active ibuprofen 600 mg oral tablet (1 source) Nonsteroidal Anti-inflammatory Drug Start: 3 take 600 mg by mouth every six hours ibuprofen 600 mg, Oral, q6hr Start Date: 03/20/23 Status: Ordered irbesartan 300 mg oral tablet (20 sources) Angiotensin 2 Receptor Sapphire Start: 4 [...] lansoprazole 30 mg delayed release oral capsule (16 sources) Proton Pump Inhibitor Start: 03-17-2022 take [...] 06/29/18 Status: Ordered take 2 tablets by [facility] once daily metFORMIN HCl - 500 MG [...] DO Active montelukast 10 mg oral tablet (16 sources) Leukotriene Receptor Antagonist Start: 09-21-2023 take [...] 30 tab(s), Refills(s) 8, Pharmacy: [facility]/pharmacy #[id number], 175, cm, 03/20/23 14:33:00 EDT, Height/Length [...] Status: Ordered predniSONE 2.5 mg oral tablet (20 sources) Start: 07-18-2023 take 2 tablets by [...] week. Active tiZANidine 4 mg oral tablet (17 sources) Central alpha-2 Adrenergic Agonist Start: 03-20-2023 take 1 tablet by mouth every eight hours tiZANidine 4 mg Tab 4 mg = 1 tab(s), Oral, q8hr Start Date: 03/20/23 Status: Ordered Start: 03-12-2023 tiZANidine (Za naflex) 4 MG tablet Take 2 mg by mouth as needed at bedtime 03/12/2023 Active vitamin b12 1 mg oral tablet (19 sources) Vitamin B12 Start: 05-30-2019 take 3 [...] Date Documented Da te Episodic/Chronic Anxiety disorders (20 sources) Anxiety; Translations: [Anxiety disorder, unspecified] Onset: 4 07-14-2023 Chronic Cardiac dysrhythmias (20 sources) Helder rhythm disorder; Translations: [Other specified cardiac arrhythmias] Onset: 4 07-14-2023 Chronic Cataract (17 sources) Bilateral age-related nuclear cataracts; Translations: [Age-related nuclear cataract, bilateral] Onset: 3 01-30-2023 Chronic Chronic kidney disease (16 sources) Chronic kidney disease stage 3; Translations: [...] hyperlipidemia] Onset: 3 07-14-2023 Chronic Esophageal disorders (20 sources) Gastroesophageal reflux disease; Translations: [Gastro-esophageal reflux disease without esophagitis] Onset: 4 08-21-2019 Chronic Essential hypertension (20 sources) Benign essential hypertension; Translations: [Benign essential hypertension] Onset: 4 07-14-2023 Chronic Fluid and electrolyte disorders (2 sources) Other disorders of electrolyte and fluid balance, not elsewhere classified; Translations: [Other disorders of electrolyte and fluid balance, not elsewhere classified] Onset: 4 Episodic Hyperplasia of prostate (20 sources) Benign prostatic hyperplasia without lower urinary tract symptoms; Translations: [Benign prostatic hypertrophy with outflow obstruction] Onset: 2 Chronic Osteoarthritis (20 sources) Arthritis of right knee; Translations: [Unilateral primary osteoarthritis, right knee] Onset: 4 12-21-2023 Chronic Other and unspecified benign neoplasm (2 sources) Benign neoplasm of cranial nerves; Translations: [Benign neoplasm of cranial nerves (Multi)] Onset: 4 Chronic Other and unspecified benign neoplasm (16 sources) Acoustic neuroma; Translations: [Benign neoplasm of [...] Chronic Other ear and sense organ disorders (20 sources) Otitis externa; Translations: [Otitis externa in other diseases classified elsewhere, unspecified ear] Onset: 4 12-21-2023 Chronic Other ear and sense organ disorders (16 sources) Sensorineural hearing loss, bilateral; Translations: [Sensorineural hearing loss, bilateral] Onset: 4 12-21-2023 Chronic Other gastrointestinal disorders (1 source) 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; Translations: [IRRITABLE BOWEL SYND W/O DIARRHEA] Onset: 2 Chronic Other infections; including parasitic (11 sources) Personal history of other infectious and parasitic diseases; Translations: [Personal history of COVID-19] Episodic Other inflammatory condition of skin (20 sources) Psoriasis; Translations: [Psoriasis, unspecified] Onset: 4 08-23-2019 Chronic Other inflammatory condition of skin (20 sources) Psoriatic arthritis; 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, unspecified] Onset: 2 07-14-2023 Chronic Other inflammatory condition of skin (16 sources) Psoriasis vulgaris; 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] Onset: 4 12-21-2023 Chronic Other inflammatory condition of skin (2 sources) Arthropathic psoriasis, unspecified; 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, unspecified] Onset: 4 Chronic Other liver diseases (1 source) Fatty (change of) liver, not elsewhere classified; Translations: [FATTY CHANGE LIVER NEC] Onset: 2 Chronic Other liver diseases (20 sources) Steatosis of liver; Translations: [Fatty (change [...] Onset: 2 Chronic Other nervous system disorders (20 sources) Neuropathy; Translations: [Polyneuropathy, unspecified] Onset: 4 07-14-2023 Chronic Other nervous system disorders (16 sources) Carpal tunnel syndrome; Translations: [Carpal tunnel syndrome, unspecified upper limb] Onset: 4 12-21-2023 Chronic Other nervous system disorders (20 sources) Impairment of balance; Translations: [Other abnormalities of gait and mobility] Onset: 4 04-21-2024 Episodic Other non-traumatic joint disorders (16 sources) Polyarthropathy; Translations: [Polyarthritis, unspecified] Onset: 2 [...] Retinal detachments; defects; vascular occlusion; and retinopathy (17 sources) Nonexudative age-related macular degeneration; Translations: [Nonexudative age-related macular degeneration, bilateral, early dry stage] Onset: 3 01-30-2023 Chronic Spondylosis; intervertebral disc disorders; other back problems (16 sources) Degeneration of cervical intervertebral disc; Translations: [Other cervical disc degeneration, unspecified cervical region] Onset: 4 12-21-2023 Chronic Spondylosis; intervertebral disc disorders; other back problems (20 sources) Neck pain; Translations: [Cervicalgia] Onset: 4 04-21-2024 Episodic Unclassified (1 source) Drug therapy finding 08-23-2019 Unclassified (1 source) 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; Translations: [prison (current) use of antimetabolite agent] Onset: 2 Past or Other Problems Problem Classification Problem Date Documented Da te Episodic/Chronic Abdominal hernia (20 sources) Hiatal hernia; Translations: [Diaphragmatic hernia without obstruction or gangrene] Onset: 08-16-2023 07-14-2023 Episodic Abdominal pain (20 sources) Epigastric pain; Translations: [Epigastric pain] Onset: 02-07-2024 05-25-2021 Episodic Acute and unspecified renal failure (2 sources) Acute kidney failure, unspecified; Translations: [Acute kidney failure, unspecified] Onset: 10-02-2023 Episodic Calculus of urinary tract (20 sources) History of calculus of kidney; Translations: [Personal history of urinary calculi] Onset: 03-20-2023 Resolved: 12-21-2023 Episodic Cardiac dysrhythmias (20 sources) Bradycardia; Translations: [Other specified cardiac dysrhythmias] Onset: 11-25-2021 Episodic Genitourinary symptoms and ill-defined conditions (20 sources) Urgent desire to urinate; Translations: [Urgency of urination] Onset: 03-20-2023 Episodic Headache; including migraine (20 sources) Migraine; Translations: [Migraine, unspecified, not intractable, without status migrainosus] Onset: 08-16-2023 Resolved: 12-21-2023 07-14-2023 Chronic Inflammation; infection of eye (except that caused by tuberculosis or sexually transmitteddisease) (17 sources) Blepharitis of upper and lower eyelids of bilateral eyes; Translations: [Unspecified blepharitis right eye, upper and lower eyelids] Onset: 01-30-2023 01-30-2023 Episodic Inflammatory conditions of male genital organs (20 sources) Prostatitis; Translations: [Inflammatory disease of prostate, unspecified] Onset: 08-16-2023 08-21-2019 Episodic Malaise and fatigue (20 sources) Fatigue; Translations: [Other malaise and fatigue] Onset: 10-25-2022 Episodic Mycoses (16 sources) Superficial mycosis; Translations: [Superficial mycosis, unspecified] Onset: 12-21-2023 12-21-2023 Episodic Nausea and vomiting (20 sources) Nausea and vomiting; Translations: [Nausea with vomiting, unspecified] Onset: 08-16-2023 Resolved: 12-21-2023 12-01-2020 Episodic Neoplasms of unspecified nature or uncertain behavior (20 sources) Neoplasm of uncertain behavior of skin; Translations: [Neoplasm of uncertain behavior of skin] Onset: 07-18-2023 Episodic Nutritional deficiencies (20 sources) Vitamin D deficiency, unspecified; Translations: [Vitamin D deficiency] Onset: 10-30-2022 Resolved: 12-21-2023 07-14-2023 Chronic Nutritional deficiencies (20 sources) Cobalamin deficiency; Translations: [Deficiency of other specified B group vitamins] Onset: 08-16-2023 07-14-2023 Episodic Other acquired deformities (16 sources) Spondylolysis; Translations: [Spondylolysis, site unspecified] Onset: 05-21-2022 12-21-2023 Episodic Other aftercare (16 sources) 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; Translations: [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] Onset: 05-27-2022 12-21-2023 Episodic Other diseases of kidney and ureters (2 sources) Disorder of kidney and ureter, unspecified; Translations: [Disorder of kidney and ureter, unspecified] Onset: 08-16-2023 Episodic Other ear and sense organ disorders (16 sources) Sudden idiopathic hearing loss; Translations: [Sudden idiopathic hearing loss, right ear] Onset: 12-27-2023 12-27-2023 Episodic Other eye disorders (17 sources) Dry eyes; Translations: [Dry eye syndrome of bilateral lacrimal glands] Onset: 01-30-2023 01-30-2023 Episodic Other gastrointestinal disorders (1 source) Diarrhea, unspecified; Translations: [DIARRHEA UNSPECIFIED] Onset: 03-18-2022 Episodic Other infections; including parasitic (20 sources) History of Helicobacter pylori infection; Translations: [Personal history of other infectious and parasitic diseases] Onset: 08-16-2023 Resolved: 12-21-2023 07-14-2023 Episodic Other lower respiratory disease (20 sources) Dyspnea on exertion; Translations: [Shortness of breath] Onset: 08-24-2023 08-24-2023 Episodic Other nervous system disorders (16 sources) Notalgia paresthetica; 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] Onset: 12-21-2023 12-21-2023 Episodic Other non-epithelial cancer of skin (20 sources) Basal cell carcinoma of skin; Translations: [Basal cell carcinoma of skin, unspecified] Onset: 09-01-2023 Episodic Other nutritional; endocrine; and metabolic disorders (20 sources) Loss of appetite; Translations: [Anorexia] Onset: 08-16-2023 12-01-2020 Episodic Other nutritional; endocrine; and metabolic disorders (20 sources) Weight loss; Translations: [Abnormal weight loss] Onset: 08-16-2023 Resolved: 12-21-2023 12-01-2020 Episodic Other screening for suspected conditions (not mental disorders or infectious disease) (20 sources) Encounter for screening for malignant neoplasm of prostate; Translations: [Elevated prostate specific antigen [PSA]] Onset: 06-20-2022 Episodic Pathological fracture (17 sources) Age-related osteoporosis with current pathological fracture, vertebra(e), initial encounter for fracture; Translations: [Pathological fracture of vertebra due to osteoporosis] Onset: 04-05-2023 12-21-2023 Episodic Screening and history of mental health and substance abuse codes (20 sources) Ex-smoker; Translations: [Personal history of tobacco use] Onset: 08-16-2023 Resolved: 12-21-2023 08-23-2019 Episodic Comment on above: Quit: 1991; Substance-related disorders (18 sources) 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; Translations: [Other psychoactive substance use, unspecified, uncomplicated] Onset: 10-11-2023 12-21-2023 Episodic Unclassified (1 source) Onset: 11-27-2023 11-27-2023 Unclassified (1 source) prison (current) use of antimetabolite agent; Translations: [prison (current) use of antimetabolite agent] Onset: 08-17-2023 Results Test Name Value Interpretation Reference Range Facil ity Optical coherence tomography study reporton 06-25-2024 [facility] Radiology Study observation (narrative) [facility] 36on 06-03-2024 36 Last Visit: 02/15/24 Upcoming Visit: 09/11/23 [facility] Refillon 06-02-2024 Refill [id number] Travis Coburn 1940 M Date Provider Department Center 06/02/2024 LUIS DANIEL HAYNES [facility] Eloise Heal No family history on file Reason for Visit and Comments: Med Refill [[id number]] [facility] Follow-Upon 04-17-2024 Follow-Up [id number] Travis Coburn 1940 M Date Provider Department Center 04/17/2024 Annalisa-TOO THOMPSON [facility]PH[facility] Comprehensiv No family history on file Level of Service:74164 [place] OFFICE/OUTPATIENT ESTABLISHED MOD MDM 30 MIN Reason for Visit and Comments: Follow-up [[id number]] Normal [facility] ALBUMINon 04-04-2024 Albumin [Mass/Vol] 4.2 g/dL Normal 3.5-5.7 [facility] Comment on above: Performed By: #### L [id number] #### [facility] ([facility]) [address] [place] [address] BASIC METABOLIC PANELon 03-11 Anion gap [Moles/Vol] 7 mmol/L Normal 7-20 [facility] Comment on above: Performed By: #### L [id number] #### [facility] ([facility]) [address] [place] [address] Calcium [Mass/Vol] 9.5 mg/dL Normal 8.6-10.3 [facility] Comment on above: Performed By: #### L [id number] #### [facility] ([facility]) [address] [place] [address] Chloride [Moles/Vol] 102 mmol/L Normal 98-107 [facility] Comment on above: Performed By: #### L [id number] #### [facility] ([facility]) [address] [place] [address] CO2 [Moles/Vol] 31 mmol/L Normal 21-31 [facility] Comment on above: Performed By: #### L [id number] #### [facility] ([facility]) [address] [place] [address] Creatinine [Mass/Vol] 1.10 mg/dL Normal 0.70-1.30 [facility] Comment on above: Performed By: #### L [id number] #### [facility] ([facility]) [address] [place] [address] GLOMERULAR FILTRATION RATE ML/MIN/1.73 SQ M.PREDICTED 67.0 mL/min/1.73m*2 Normal >60.0 [facility] Comment on above: Result Comment: The [facility]???s estimated glomerular filtration rate (eGFR) will no [...] individuals. Performed By: #### L [id number] #### [facility] ([facility]) [address] [place] [address] Glucose [Mass/Vol] 87 mg/dL Normal 70-100 [facility] Comment on above: Performed By: #### L [id number] #### [facility] ([facility]) [address] [place] [address] Potassium [Moles/Vol] 4.0 mmol/L Normal 3.5-5.1 [facility] Comment on above: Performed By: #### L [id number] #### [facility] ([facility]) [address] [place] [address] Sodium [Moles/Vol] 136 mmol/L Normal 136-145 [facility] Comment on above: Performed By: #### L [id number] #### [facility] ([facility]) [address] [place] [address] Urea nitrogen [Mass/Vol] 18 mg/dL Normal 7-25 [facility] Comment on above: Performed By: #### L [id number] #### [facility] ([facility]) [address] [place] [address] UREA NITROGEN/CREATININ E (MASS RATIO) IN SER/PLAS 16.4 Normal [facility] Comment on above: Performed By: #### L [id number] #### [facility] ([facility]) [address] [place] [address] CREATININE, URINE, RANDOMon 04-04-2024 Creatinine (U) [Mass/Vol] 91.0 mg/dL Normal 26-299 [facility] Comment on above: Performed By: #### L [id number] #### [facility] ([facility]) [address] [place] [address] HEMOGLOBINon 04-04-2024 Hemoglobin (Bld) [Mass/Vol] 14.5 g/dL Normal 13.0-17.0 [facility] Comment on above: Performed By: #### L [id number] #### [facility] ([facility]) [address] [place] [address] MAGNESIUMon 04-04-2024 Magnesium [Mass/Vol] 1.7 mg/dL Low 1.9-2.7 [facility] Comment on above: Performed By: #### L [id number] #### [facility] ([facility]) [address] [place] [address] PHOSPHORUSon 04-04-2024 Magnesium [Mass/Vol] 2.5 mg/dL Normal 2.5-5.0 [facility] Comment on above: Performed By: #### L [id number] ####[facility] ([facility])[address] [place] [address] PROTEIN, URINE, RANDOMon Protein (U) [Mass/Vol] 6.0 mg/dL Normal [facility] Comment on above: Result Comment: Ther e are no established reference values for random urine specimens. Performed By: #### L [id number] #### [facility] ([facility]) [address] [place] [address] CBC WITH AUTO DIFFERENTIALon 02-15-2024 Basophils (Bld) [#/Vol] 0.04 10*3/uL Normal 0.00-0.20 [facility] Comment on above: Performed By: #### L [id number] #### [facility] ([facility]) [address] [place] [address] Basophils/100 WBC (Bld) 0.5 % Normal 0.0-1.0 [facility] Comment on above: Performed By: #### L [id number] #### [facility] ([facility]) [address] [place] [address] Eosinophils (Bld) [#/Vol] 0.13 10*3/uL Normal 0.00-0.50 [facility] Comment on above: Performed By: #### L [id number] #### [facility] ([facility]) [address] [place] [address] Eosinophils/100 WBC (Bld) 1.7 % Normal 0.0-6.0 [facility] Comment on above: Performed By: #### L [id number] #### [facility] ([facility]) [address] [place] [address] Erythrocyte distribution width (RBC) [Ratio] 13.8 % Normal 11.5-15.0 [facility] Comment on above: Performed By: #### L [id number] #### [facility] ([facility]) [address] [place] [address] ERYTHROCYTE MEAN CORPUSCULAR HEMOGLOBIN CONCENTRATION (G/DL) BY AUTOMATED 33.0 g/dL Normal 32.0-35.0 [facility] Comment on above: Performed By: #### L [id number] #### [facility] ([facility]) [address] [place] [address] Hematocrit (Bld) [Volume fraction] 44.0 % Normal 39.0-55.0 [facility] Comment on above: Performed By: #### L [id number] #### [facility] ([facility]) [address] [place] [address] Hemoglobin (Bld) [Mass/Vol] 14.5 g/dL Normal 13.0-17.0 [facility] Comment on above: Performed By: #### L [id number] #### [facility] ([facility]) [address] [place] [address] Immature granulocytes (Bld) [#/Vol] 0.04 10*3/uL Normal 0.00-0.20 [facility] Comment on above: Performed By: #### L [id number] #### [facility] ([facility]) [address] [place] [address] Immature granulocytes/100 WBC (Bld) 0.5 % Normal 0.0-1.0 [facility] Comment on above: Performed By: #### L [id number] #### [facility] ([facility]) [address] [place] [address] Lymphocytes (Bld) [#/Vol] 1.89 10*3/uL Normal 1.20-4.00 [facility] Comment on above: Performed By: #### L [id number] #### [facility] ([facility]) [address] [place] [address] Lymphocytes/100 WBC (Bld) 24.9 % Normal 20.0-45.0 [facility] Comment on above: Performed By: #### L [id number] #### [facility] ([facility]) [address] [place] [address] MCH (RBC) [Entitic mass] 32.1 pg Normal 27.0-33.0 [facility] Comment on above: Performed By: #### L [id number] #### [facility] ([facility]) [address] [place] [address] MCV (RBC) [Entitic vol] 97.3 fL Normal 82.0-98.0 [facility] Comment on above: Performed By: #### L [id number] #### [facility] ([facility]) [address] [place] [address] Monocytes (Bld) [#/Vol] 0.59 10*3/uL Normal 0.10-1.00 [facility] Comment on above: Performed By: #### L [id number] #### [facility] ([facility]) [address] [place] [address] Monocytes/100 WBC (Bld) 7.8 % Normal 5.0-12.0 [facility] Comment on above: Performed By: #### L [id number] #### [facility] ([facility]) [address] [place] [address] Neutrophils (Bld) [#/Vol] 4.91 10*3/uL Normal 1.60-7.60 [facility] Comment on above: Performed By: #### L [id number] #### [facility] ([facility]) [address] [place] [address] Neutrophils/100 WBC (Bld) 64.6 % Normal 40.0-72.0 [facility] Comment on above: Performed By: #### L [id number] #### [facility] ([facility]) [address] [place] [address] NRBC (PER 100 WBCS) BY AUTOMATED COUNT 0.0 % Normal 0 [facility] Comment on above: Performed By: #### L [id number] #### [facility] ([facility]) [address] [place] [address] PLATELETS (10*3/UL) IN BLOOD AUTOMATED COUNT 187 10*3/uL Normal 150-400 [facility] Comment on above: Performed By: #### L [id number] #### [facility] ([facility]) [address] [place] [address] RBC (Bld) [#/Vol] 4.52 10*6/uL Normal 4.20-5.70 [facility] Comment on above: Performed By: #### L [id number] #### [facility] ([facility]) [address] [place] [address] WBC (Bld) [#/Vol] 7.60 10*3/uL Normal 4.00-10.60 [facility] Comment on above: Performed By: #### L [id number] #### [facility] ([facility]) [address] [place] [address] COMPREHENSIVE METABOLIC PANE [place] 02-15-2024 Albumin [Mass/Vol] 4.0 g/dL Normal 3.5-5.7 [facility] Comment on above: Performed By: #### L [id number] ####[facility] ([facility])[address] [place] [address] ALP [Catalytic activity/Vol] 90 U/L Normal 34-104 [facility] Comment on above: Performed By: #### L [id number] ####[facility] ([facility])[address] [place] [address] ALT [Catalytic activity/Vol] 19 U/L Normal 7-52 [facility] Comment on above: Performed By: #### L [id number] ####[facility] ([facility]ER)[address] [place] [address] Anion gap [Moles/Vol] 10 mmol/L Normal 7-20 [facility] Comment on above: Performed By: #### L [id number] ####[facility] ([facility])[address] [place] [address] AST [Catalytic activity/Vol] 17 U/L Normal 13-39 [facility] Comment on above: Performed By: #### L [id number] ####[facility] ([facility])[address] [place] [address] Bilirubin [Mass/Vol] 0.8 mg/dL Normal 0.3-1.0 [facility] Comment on above: Performed By: #### L [id number] ####[facility] ([facility])[address] [place] [address] Calcium [Mass/Vol] 9.2 mg/dL Normal 8.6-10.3 [facility] Comment on above: Performed By: #### L [id number] ####[facility] ([facility])[address] [place] [address] Chloride [Moles/Vol] 103 mmol/L Normal 98-107 [facility] Comment on above: Performed By: #### L [id number] ####[facility] ([facility])[address] [place] [address] CO2 [Moles/Vol] 27 mmol/L Normal 21-31 [facility] Comment on above: Performed By: #### L [id number] ####[facility] ([facility])[address] [place] [address] Creatinine [Mass/Vol] 1.08 mg/dL Normal 0.70-1.30 [facility] Comment on above: Performed By: #### L [id number] ####[facility] ([facility])[address] [place] [address] GLOMERULAR FILTRATION RATE ML/MIN/1.73 SQ M.PREDICTED 68.5 mL/min/1.73m*2 Normal >60.0 [facility] Comment on above: Result Comment: The [facility]???s estimated glomerular filtration rate (eGFR) will no [...] of individuals. Performed By: #### L [id number] ####[facility] ([facility])[address] [place] [address] Glucose [Mass/Vol] 107 mg/dL High 70-100 [facility] Comment on above: Performed By: #### L [id number] ####[facility] ([facility])[address] [place] [address] Potassium [Moles/Vol] 3.7 mmol/L Normal 3.5-5.1 [facility] Comment on above: Performed By: #### L [id number] ####[facility] ([facility])[address] [place] [address] Protein [Mass/Vol] 6.7 g/dL Normal 6.0-8.3 [facility] Comment on above: Performed By: #### L [id number] ####[facility] ([facility])[address] [place] [address] Sodium [Moles/Vol] 136 mmol/L Normal 136-145 [facility] Comment on above: Performed By: #### L [id number] ####[facility] ([facility])[address] [place] [address] Urea nitrogen [Mass/Vol] 17 mg/dL Normal 7- [facility] Comment on above: Performed By: #### L [id number] ####[facility] ([facility])[address] [place] [address] UREA NITROGEN/CREATININ E (MASS RATIO) IN SER/PLAS 15.7 [facility] Comment on above: Performed By: #### L [id number] ####[facility] ([facility])[address] [place] [address] Follow-Upon 02-15-2024 Follow-Up [id number] Travis Coburn 1940 [facility] Provider Department Center 02/15/2024 LUIS DANIEL HAYNES [facility] RHEUM [facility] No family history on file Level of Service:51137 [place] OFFICE/OUTPATIENT ESTABLISHED MOD MDM 30 MIN () Reason for Visit and Comments: Follow-up [466157] - 6 month follow up [facility] Orders Onlyon 02-15-2024 Orders Only [id number] Travis Coburn 1940 [facility] Provider Department Center 02/15/2024 JOON VAZQUEZ R[facility] RHEUM [facility] No family history on file [facility] 36on 11-28-2023 36 Last visit: 08/17/23 Next visit: 02/15/24 CBC/CMP: 10/02/23 [facility] 36 RHC patient [facility] 36 Pt called to make sure that you will fill his Methotrexate. [facility] Refillon 11-28-2023 Refill [id number] Travis Coburn 1940 M [facility] Provider Department Center 11/28/2023 LUIS DANIEL HAYNES [facility] RHEUM MECF No family history on file Reason for Visit and Comments: Med Refill [[id number]] [facility] 36on 10-16-2023 36 Last visit: 08/17/23 Next visit: 02/15/24 CBC/CMP: 10/02/23 [facility] Refillon 10-14-2023 Refill [id number] Travis Coburn 1940 M Date Provider Department Center 10/14/2023 317-JOAQUÍNBillLUIS DANIEL M RHC RHEUM [place] Heal No family history on file Reason for Visit and Comments: Med Refill [[id number]] Normal [facility] Follow-Upon 10-11-2023 Follow-Up [id number] Travis Coburn 1940 M Date Provider Department Center 10/11/2023 321-TOO [facility] NE[facility] Comprehensiv No family history on file Level of Service:71678 [place] OFFICE/OUTPATIENT ESTABLISHED LOW MDM 20 MIN (GC) Reason for Visit and Comments: Follow-up [044336] Chronic Kidney Disease [176] Normal [facility] CBCon 10-02-2023 Erythrocyte distribution width (RBC) [Ratio] 14.0 % Normal 11.5-15.0 [facility] Comment on above: Performed By: #### L [id number] ####[facility] ([facility]ER)[address] [place] [address] ERYTHROCYTE MEAN CORPUSCULAR HEMOGLOBIN CONCENTRATION (G/DL) BY AUTOMATED 33.3 g/dL Normal 32.0-35.0 [facility] Comment on above: Performed By: #### L [id number] ####[facility] ([facility]ER)[address] [place] [address] Hematocrit (Bld) [Volume fraction] 44.4 % Normal 39.0-55.0 [facility] Comment on above: Performed By: #### L [id number] ####[facility] ([facility]ER)[address] [place] [address] Hemoglobin (Bld) [Mass/Vol] 14.8 g/dL Normal 13.0-17.0 [facility] Comment on above: Performed By: #### L [id number] ####[facility] (BE[facility]ER)[address] [place] [address] MCH (RBC) [Entitic mass] 31.9 pg Normal 27.0-33.0 [facility] Comment on above: Performed By: #### L [id number] ####[facility] ([facility])[address] [place] [address] MCV (RBC) [Entitic vol] 95.7 fL Normal 82.0-98.0 [facility] Comment on above: Performed By: #### L [id number] ####[facility] ([facility])[address] [place] [address] PLATELETS (10*3/UL) IN BLOOD AUTOMATED COUNT 189 10*3/uL Normal 150-400 [facility] Comment on above: Performed By: #### L [id number] ####[facility] ([facility])[address] [place] [address] RBC (Bld) [#/Vol] 4.64 10*6/uL Normal 4.20-5.70 [facility] Comment on above: Performed By: #### L [id number] ####[facility] ([facility])[address] [place] [address] WBC (Bld) [#/Vol] 8.52 10*3/uL Normal 4.00-10.60 [facility] Comment on above: Performed By: #### L [id number] ####[facility] ([facility])[address] [place] [address] COMPREHENSIVE METABOLIC PANE [place] 10-02-2023 Albumin [Mass/Vol] 4.3 g/dL Normal 3.5-5.7 [facility] Comment on above: Performed By: #### L [id number] #### [facility] ([facility]) [address] [place] [address] ALP [Catalytic activity/Vol] 102 U/L Normal 34-104 [facility] Comment on above: Performed By: #### L [id number] #### [facility] ([facility]) [address] [place] [address] ALT [Catalytic activity/Vol] 16 U/L Normal 7-52 [facility] Comment on above: Performed By: #### L [id number] #### [facility] ([facility]) [address] [place] [address] Anion gap [Moles/Vol] 11 mmol/L Normal 7-20 [facility] Comment on above: Performed By: #### L [id number] #### [facility] ([facility]) [address] [place] [address] AST [Catalytic activity/Vol] 18 U/L Normal 13-39 [facility] Comment on above: Performed By: #### L [id number] #### [facility] ([facility]) [address] [place] [address] Bilirubin [Mass/Vol] 0.6 mg/dL Normal 0.3-1.0 [facility] Comment on above: Performed By: #### L [id number] #### [facility] ([facility]) [address] [place] [address] Calcium [Mass/Vol] 9.5 mg/dL Normal 8.6-10.3 [facility] Comment on above: Performed By: #### L [id number] #### [facility] ([facility]) [address] [place] [address] Chloride [Moles/Vol] 102 mmol/L Normal 98-107 [facility] Comment on above: Performed By: #### L [id number] #### [facility] ([facility]) [address] [place] [address] CO2 [Moles/Vol] 28 mmol/L Normal 21-31 [facility] Comment on above: Performed By: #### L [id number] #### [facility] ([facility]) [address] [place] [address] Creatinine [Mass/Vol] 1.13 mg/dL Normal 0.70-1.30 [facility] Comment on above: Performed By: #### L [id number] #### [facility] ([facility]) [address] [place] [address] GLOMERULAR FILTRATION RATE ML/MIN/1.73 SQ M.PREDICTED 65.3 mL/min/1.73m*2 Normal >60.0 [facility] Comment on above: Result Comment: The [facility]???s estimated glomerular filtration rate (eGFR) will no [...] individuals. Performed By: #### L [id number] #### [facility] ([facility]) [address] [place] [address] Glucose [Mass/Vol] 140 mg/dL High 70-100 [facility] Comment on above: Performed By: #### L [id number] #### [facility] ([facility]) [address] [place] [address] Potassium [Moles/Vol] 3.9 mmol/L Normal 3.5-5.1 [facility] Comment on above: Performed By: #### L [id number] #### [facility] ([facility]) [address] [place] [address] Protein [Mass/Vol] 7.2 g/dL Normal 6.0-8.3 [facility] Comment on above: Performed By: #### L [id number] #### [facility] ([facility]) [address] [place] [address] Sodium [Moles/Vol] 137 mmol/L Normal 136-145 [facility] Comment on above: Performed By: #### L [id number] #### [facility] ([facility]) [address] [place] [address] Urea nitrogen [Mass/Vol] 15 mg/dL Normal 7-25 [facility] Comment on above: Performed By: #### L [id number] #### [facility] ([facility]) [address] [place] [address] UREA NITROGEN/CREATININ E (MASS RATIO) IN SER/PLAS 13.3 Normal [facility] Comment on above: Performed By: #### L [id number] #### [facility] ([facility]) [address] [place] [address] CREATININE, URINE, RANDOMon 10-02-2023 Creatinine (U) [Mass/Vol] 58.0 mg/dL Normal 26-299 [facility] Comment on above: Performed By: #### L [id number] #### [facility] ([facility]) [address] [place] [address] Labon 10-02-2023 Lab [id number] Travis Coburn 1940 Date Provider Department [place] 10/02/20232241-[facility] RESOURCE [facility] Comprehensiv No family history on file Normal [facility] MAGNESIUMon 10-02-2023 Magnesium [Mass/Vol] 1.8 mg/dL Low 1.9-2.7 [facility] Comment on above: Performed By: #### L [id number] #### [facility] ([facility]) [address] [place] [address] PHOSPHORUSon 10-02-2023 Magnesium [Mass/Vol] 2.7 mg/dL Normal 2.5-5.0 [facility] Comment on above: Performed By: #### L [id number] #### [facility] ([facility]) [address] [place] [address] PROTEIN, URINE, RANDOMon Protein (U) [Mass/Vol] 5.6 mg/dL Normal [facility] Comment on above: Result Comment: Ther e are no established reference values for random urine specimens. Performed By: #### L [id number] #### [facility] ([facility]) [address] [place] [address] URINALYSIS WITH MICROSCOPICo n 10-02-2023 BILIRUBIN, TOTAL PRESENCE IN URINE Negative Normal Negative [facility] Comment on above: Order Comment: 00 00 Performed By: #### L [id number] #### [facility] ([facility]) [address] [place] [address] Clarity (U) Clear Normal Clear [facility] Comment on above: Order Comment: 00 00 Performed By: #### L [id number] #### [facility] ([facility]) [address] [place] [address] Color (U) Yellow Normal Yellow, Dark Yellow, Straw [facility] Comment on above: Order Comment: 00 00 Performed By: #### L [id number] #### [facility] ([facility]) [address] [place] [address] Glucose (U) [Mass/Vol] Negative Normal Negative [facility] Comment on above: Order Comment: 00 00 Performed By: #### L [id number] #### [facility] ([facility]) [address] [place] [address] HEMOGLOBIN PRESENCE IN URINE Negative Normal Negative [facility] Comment on above: Order Comment: 00 00 Performed By: #### L [id number] #### [facility] ([facility]) [address] [place] [address] Ketones Ql (U) Negative Normal Negative [facility] Comment on above: Order Comment: 00 00 Performed By: #### L [id number] #### [facility] ([facility]) [address] [place] [address] LEUKOCYTE ESTERASE PRESENCE IN URINE BY TEST STRIP Negative Normal Negative [facility] Comment on above: Order Comment: 00 00 Performed By: #### L [id number] #### [facility] ([facility]) [address] [place] [address] NITRITE PRESENCE IN URINE Negative Normal Negative [facility] Comment on above: Order Comment: 00 00 Performed By: #### L [id number] #### [facility] ([facility]) [address] [place] [address] pH (U) 6.0 [pH] Normal 5.0-8.0 [facility] [facility] Comment on above: Order Comment: 00 00 Performed By: #### L [id number] #### [facility] ([facility]) [address] [place] [address] Protein (U) [Mass/Vol] Negative Normal Negative [facility] Comment on above: Order Comment: 00 00 Performed By: #### L [id number] #### [facility] ([facility]) [address] [place] [address] RBC (#/HPF) IN URINE SEDIMENT 0-2 Abnormal None Seen [facility] Comment on above: Order Comment: 00 00 Performed By: #### L [id number] #### [facility] ([facility]) [address] [place] [address] Specific gravity (U) [Rel density] <=1.005 Low 1.015-1.020 [facility] Comment on above: Order Comment: 00 00 Performed By: #### L [id number] #### [facility] ([facility]) [address] [place] [address] SQUAMOUS EPITHELIAL CELLS (#/HPF) IN URINE SEDIMENT Occasional Normal None Seen, Occasional [facility] Comment on above: Order Comment: 00 00 Performed By: #### L [id number] #### [facility] ([facility]) [address] [place] [address] WBC (LEUKOCYTE) (#/HPF) IN URINE SEDIMENT 0-2 Abnormal None Seen [facility] Comment on above: Order Comment: 00 00 Performed By: #### L [id number] #### [facility] ([facility]) [address] [place] [address] VITAMIN D 25 HYDROXYon 10-01 CALCIDIOL (25 [place] VITAMIN D3) (NG/ML) IN SER/PLAS 16.1 ng/mL Low 30.0-80.0 [facility] Comment on above: Result Comment: >80. 0 Toxicity possible Performed By: #### L [id number] #### [facility] ([facility]) [address] [place] [address] Ambulatory Visit Summaryon 0 09-13-2023 Ambulatory Visit Summary TRAVIS COBURN :1940 Visit Date:09/13/2023 Ambulatory Visit Instructions Your Care Team Attending Physician - MAXX TURNERShaquille Primary Care Physician - Mayra Navarrete MD [...] Appointments Monday. 2023 11:30 AM EDT With: Nguyễn VELA MD Where: [facility] General Surgery Office/Clini c Noteon 09-13-2023 General [...] influenza virus vaccine, inactivated 05/22/2014 Recorded Normal [facility] Comment on above: Result Comment: Elec tronically Signed By: MAXX TURNER, Shaquille Peter\.br\Date and Time Signed: 09/13/23 15:19 EST Ambulatory Visit Summaryon 0 09-01-2023 Ambulatory Visit Summary TRAVIS COBURN :1940 Visit Date:09/01/2023 Ambulatory Visit Instructions Your Care Team Attending Physician - Shaquille LILLY MD Primary Care Physician - Mayra [...] TURNER, Nguyễn Peter Where: [facility] Normal [facility] General Surgery Office/Clini c Noteon 09-01-2023 [...] influenza virus vaccine, inactivated 07/26/2022 Recorded SARSCoV2 mRNA(qjlrbnbzr-mwhi-q ucros) vac 11/17/2021 Recorded SARS-CoV-2 (COVID-19) mRNA BNT-162b2 vax 05/20/2021 Recorded 2023-03-20: TPV75 SARS-CoV-2 (COVID-19) mRNA BNT-162b2 vax 11/17/2020 Recorded SARS-CoV-2 (COVID-19) mRNA BNT-162b2 vax 10/29/2020 Recorded 2023-03-20: TPV75 SARS-CoV-2 (COVID-19) mRNA BNT-162b2 vax 10/27/2020 Recorded SARS-CoV-2 (COVID-19) mRNA BNT-162b2 vax 10/06/2020 Recorded 2023-03-20: TPV75 influenza virus vaccine, in (more content not included)... Normal [facility] Comment on above: Result Comment: Elec tronically Signed By: MAXX TURNER, Shaquille Peter\.br\Date and Time Signed: 09/01/23 14:34 EST Pathology Noteon 08-28-2023 Pathology Note [id number] 2 [id number] .00TIFF Normal [facility] Ambulatory Visit Summaryon 0 08-22-2023 Ambulatory [...] Appointments Monday. 2023 12:45 PM EDT With: Nguyễn VELA MD Where: [facility] [place] Normal [facility] General Surgery Office/Clini c Noteon 08-22-2023 [...] influenza virus vaccine, inactivated 07/26/2022 Recorded SARSCoV2 mRNA(mcghfceik-gzwp-a ucros) vac 11/17/2021 Recorded SARS-CoV-2 (COVID-19) mRNA BNT-162b2 vax 05/20/2021 Recorded 2023-03-20: TPV75 SARS-CoV-2 (COVID-19) mRNA BNT-162b2 vax 11/17/2020 Recorded SARS-CoV-2 (COVID-19) mRNA BNT-162b2 vax 10/29/2020 Recorded 2023-03-20: TPV75 SARS-CoV (more content not included)... Normal [facility] Comment on above: Result Comment: Elec tronically Signed By: MAXX TURNER, Shaquille Ko.br\Date and Time Signed: 08/22/23 14:34 EST [place] 08-22-2023 L Specimen: [id number] Received: 08/23/23 Status: JUAN LUIS Carty Num: [id number] Spec Type: Surgical Subm Dr: Shaquille Lilly MD FACS Tissues: A Skin-Other than Cyst, tag, debridement or plastic repair (RT POST CALF) Procedures: HE/3, Gross/Micro L4 Age/ Patient Sex Location Account Attending Physician Travis Coburn 82/M LABELL [id number] Shaquille Lilly MD FACS SPEC NUM: [id number] RECD: 08/23/23 STATUS: JUAN LUIS CARTY NUM: [id number] APRIL: 08/22/23- SUBM DR: Shaquille Lilly MD FACS ENTERED: 08/23/[address] [facility] [address]: Artur Al SPEC TYPE: Surgical DEPT: NICOLA TENA ENTERED BY: [id number] RECV BY: [id number] ORDERED: , Gross/Micro L4 ORDERED: , Gross/Micro [...] - Tips A2-A3 - Remainder CPT Codes 42198 -------- -------- Specimen: [id number] Received: 08/23/23 Status: JUAN LUIS Franck Num: [id number] Spec Type: Surgical Subm Dr: Shaquille Lilly MD FACS Tissues: A Skin-Other than Cyst, tag, debridement or plastic repair (RT POST CALF) Procedures: , Gross/Micro L4 -------- Patient: Travis Coburn [id number] (Continued) -------- Signed (signature on file) Joon Bermudez MD 08/24/23 2207 Normal [facility] CBC WITH AUTO DIFFERENTIALon 08-17-2023 Basophils (Bld) [#/Vol] 0.04 10*3/uL Normal 0.00-0.20 [facility] Comment on above: Performed By: #### L [id number] #### [facility] ([facility]AKER) [address] [place] [address] Basophils/100 WBC (Bld) 0.6 % Normal 0.0-1.0 [facility] Comment on above: Performed By: #### L [id number] #### [facility] (BEAKER) [address] [place] [address] Eosinophils (Bld) [#/Vol] 0.12 10*3/uL Normal 0.00-0.50 [facility] Comment on above: Performed By: #### L [id number] #### [facility] ([facility]ER) [address] [place] [address] Eosinophils/100 WBC (Bld) 1.8 % Normal 0.0-6.0 [facility] Comment on above: Performed By: #### L [id number] #### [facility] (BE[facility]ER) [address] [place] [address] Erythrocyte distribution width (RBC) [Ratio] 13.9 % Normal 11.5-15.0 [facility] Comment on above: Performed By: #### L [id number] #### [facility] ([facility]) [address] [place] [address] ERYTHROCYTE MEAN CORPUSCULAR HEMOGLOBIN CONCENTRATION (G/DL) BY AUTOMATED 34.0 g/dL Normal 32.0-35.0 [facility] Comment on above: Performed By: #### L [id number] #### [facility] ([facility]) [address] [place] [address] Hematocrit (Bld) [Volume fraction] 42.0 % Normal 39.0-55.0 [facility] Comment on above: Performed By: #### L [id number] #### [facility] ([facility]) [address] [place] [address] Hemoglobin (Bld) [Mass/Vol] 14.3 g/dL Normal 13.0-17.0 [facility] Comment on above: Performed By: #### L [id number] #### [facility] ([facility]) [address] [place] [address] Immature granulocytes (Bld) [#/Vol] 0.04 10*3/uL Normal 0.00-0.20 [facility] Comment on above: Performed By: #### L [id number] #### [facility] ([facility]) [address] [place] [address] Immature granulocytes/100 WBC (Bld) 0.6 % Normal 0.0-1.0 [facility] Comment on above: Performed By: #### L [id number] #### [facility] ([facility]ER) [address] [place] [address] Lymphocytes (Bld) [#/Vol] 1.67 10*3/uL Normal 1.20-4.00 [facility] Comment on above: Performed By: #### L [id number] #### [facility] ([facility]) [address] [place] [address] Lymphocytes/100 WBC (Bld) 25.6 % Normal 20.0-45.0 [facility] Comment on above: Performed By: #### L [id number] #### [facility] ([facility]) [address] [place] [address] MCH (RBC) [Entitic mass] 31.9 pg Normal 27.0-33.0 [facility] Comment on above: Performed By: #### L [id number] #### [facility] ([facility]) [address] [place] [address] MCV (RBC) [Entitic vol] 93.8 fL Normal 82.0-98.0 [facility] Comment on above: Performed By: #### L [id number] #### [facility] ([facility]) [address] [place] [address] Monocytes (Bld) [#/Vol] 0.49 10*3/uL Normal 0.10-1.00 [facility] Comment on above: Performed By: #### L [id number] #### [facility] ([facility]) [address] [place] [address] Monocytes/100 WBC (Bld) 7.5 % Normal 5.0-12.0 [facility] Comment on above: Performed By: #### L [id number] #### [facility] ([facility]) [address] [place] [address] Neutrophils (Bld) [#/Vol] 4.17 10*3/uL Normal 1.60-7.60 [facility] Comment on above: Performed By: #### L [id number] #### [facility] ([facility]) [address] [place] [address] Neutrophils/100 WBC (Bld) 63.9 % Normal 40.0-72.0 [facility] Comment on above: Performed By: #### L [id number] #### [facility] ([facility]) [address] [place] [address] NRBC (PER 100 WBCS) BY AUTOMATED COUNT 0.0 % Normal 0 [facility] Comment on above: Performed By: #### L [id number] #### [facility] ([facility]) [address] [place] [address] PLATELETS (10*3/UL) IN BLOOD AUTOMATED COUNT 186 10*3/uL Normal 150-400 [facility] Comment on above: Performed By: #### L [id number] #### [facility] ([facility]) [address] [place] [address] RBC (Bld) [#/Vol] 4.48 10*6/uL Normal 4.20-5.70 [facility] Comment on above: Performed By: #### L [id number] #### [facility] ([facility]) [address] [place] [address] WBC (Bld) [#/Vol] 6.53 10*3/uL Normal 4.00-10.60 [facility] Comment on above: Performed By: #### L [id number] #### [facility] ([facility]) [address] [place] [address] COMPREHENSIVE METABOLIC PANE [place] 08-17-2023 Albumin [Mass/Vol] 4.0 g/dL Normal 3.5-5.7 [facility] Comment on above: Performed By: #### L [id number] #### [facility] ([facility]) [address] [place] [address] ALP [Catalytic activity/Vol] 98 U/L Normal 34-104 [facility] Comment on above: Performed By: #### L [id number] #### [facility] ([facility]) [address] [place] [address] ALT [Catalytic activity/Vol] 25 U/L Normal 7-52 [facility] Comment on above: Performed By: #### L [id number] #### [facility] ([facility]) [address] [place] [address] Anion gap [Moles/Vol] 12 mmol/L Normal 7-20 [facility] Comment on above: Performed By: #### L [id number] #### [facility] ([facility]) [address] [place] [address] AST [Catalytic activity/Vol] 19 U/L Normal 13-39 [facility] Comment on above: Performed By: #### L [id number] #### [facility] ([facility]) [address] [place] [address] Bilirubin [Mass/Vol] 0.5 mg/dL Normal 0.3-1.0 [facility] Comment on above: Performed By: #### L [id number] #### [facility] ([facility]) [address] [place] [address] Calcium [Mass/Vol] 8.8 mg/dL Normal 8.6-10.3 [facility] Comment on above: Performed By: #### L [id number] #### [facility] ([facility]) [address] [place] [address] Chloride [Moles/Vol] 102 mmol/L Normal 98-107 [facility] Comment on above: Performed By: #### L [id number] #### [facility] ([facility]) [address] [place] [address] CO2 [Moles/Vol] 27 mmol/L Normal 21-31 [facility] Comment on above: Performed By: #### L [id number] #### [facility] ([facility]) [address] [place] [address] Creatinine [Mass/Vol] 1.12 mg/dL Normal 0.70-1.30 [facility] Comment on above: Performed By: #### L [id number] #### [facility] ([facility]) [address] [place] [address] GLOMERULAR FILTRATION RATE ML/MIN/1.73 SQ M.PREDICTED 66.0 mL/min/1.73m*2 Normal >60.0 [facility] Comment on above: Result Comment: The [facility]???s estimated glomerular filtration rate (eGFR) will no [...] individuals. Performed By: #### L [id number] #### [facility] ([facility]) [address] [place] [address] Glucose [Mass/Vol] 95 mg/dL Normal 70-100 [facility] Comment on above: Performed By: #### L [id number] #### [facility] ([facility]) [address] [place] [address] Potassium [Moles/Vol] 3.7 mmol/L Normal 3.5-5.1 [facility] Comment on above: Performed By: #### L [id number] #### [facility] ([facility]) [address] [place] [address] Protein [Mass/Vol] 6.6 g/dL Normal 6.0-8.3 [facility] Comment on above: Performed By: #### L [id number] #### [facility] ([facility]) [address] [place] [address] Sodium [Moles/Vol] 137 mmol/L Normal 136-145 [facility] Comment on above: Performed By: #### L [id number] #### [facility] ([facility]) [address] [place] [address] Urea nitrogen [Mass/Vol] 16 mg/dL Normal 7-25 [facility] Comment on above: Performed By: #### L [id number] #### [facility] ([facility]) [address] [place] [address] UREA NITROGEN/CREATININ E (MASS RATIO) IN SER/PLAS 14.3 Normal [facility] Comment on above: Performed By: #### L [id number] #### [facility] ([facility]) [address] [place] [address] Follow-Upon 08-17-2023 Follow-Up [id number] Travis Coburn 1940 M Date Provider Department Center 08/17/2023 Diane-LUIS DANIEL BRUNNER [facility]UM Eloise Heal No family history on file Level of Service:33912 [place] OFFICE/OUTPATIENT ESTABLISHED MOD MDM 30 MIN Reason for Visit and Comments: Follow-up [034150] - 6 mo follow up [facility] Orders Onlyon 08-17-2023 Orders Only [id number] Travis Coburn 1940 M Date Provider Department Center 08/17/2023 JOON VAZQUEZ [facility] Eloise Heal No family history on file [facility] Office Visiton 08-16-2023 Follow-up visit [id number] Travis Coburn 1940 [facility] Provider Department Center 08/16/2023 Annalsia-TOO [facility] NEPHRO Comprehensiv No family history on file Level of Service:61937 [place] OFFICE/OUTPATIENT NEW MODERATE MDM 45 MINUTES (GC) Reason for Visit and Comments: New Patient [632] [facility] Ambulatory Visit Summaryon 0 07-18-2023 Ambulatory Visit [...] Follow-Up Appointments Monday 1:40 PM EST With: Shaquille LILLY MD Where: General [facility] [place] Normal [address] [place] [address] [place] [address]- \.br\ Medications\.br\ What How Much When Instructions\.br\ [...] for choosing us for your care.\.br\ \.br\ [facility] Physician Referralon 024 Physician Referral [id number] 1 [id number]#1 .00TIFF [facility] Physician Referral [id number] 1 [id number]#1 .00TIFF [facility] 36on 06-13-2023 36 New order faxed to [facility] Also Options explained to Patient, who expressed understanding Normal [facility] 36 Pt called (very anxious) to let you know that the Nephrology office can not see him until 08/01/23. Normal [facility] Orders Onlyon 06-13-2023 Orders Only [id number] AlmasTravis Perry 1940 M Date Provider Department Center 06/13/2023 317-LUIS DANIEL BRUNNER [facility] RHEUM MECF No family history on file [facility] Telephoneon 06-13-2023 Telephone [id number] Travis Coburn Vicky 1940 M Date Provider Department Center 06/13/2023 853-MIGUEL GRANDE C RHEUM Eloise Heal No family history on file [facility] 36on 06-09-2023 36 Could you please shayla l patient [facility] Orders Onlyon 06-09-2023 Orders Only [id number] Travis Coburn 1940 M Date Provider Department Center 06/09/2023 [address] Eloise Heal No family history on file [facility] FLUORO FOR SURGICAL PROCEDUR ESon 04-05-2023 FLUORO FOR SURGICAL PROCEDURES RADRPT Radiology exam is complete. No Radiologist dictation. Please follow up with ordering provider. Final result Normal [facility] SURGICALon 04-05-2023 SURGICAL [place] [facility] TRAVIS COBURN [id number] Assoc. Page [address] [place] [address] PROC: 04/05/2023 [facility] RECV: 04/06/[address] RPTD: 04/07/2023 [place] [address] LOC: NAT ACCT: [id number] SEX: M : 1940 AGE: 82 Y [...] developed and its performance characteristics determined by [facility]. It has not been cleared or approved by the U.S. Food and Drug Administration. Pursuant to the requirements of CLIA, this laboratory has established and verified the test's accuracy and precision. Additional information about this type of test is available upon request. [id number] REJI FITZGERALD M.D., F.C.A.P. 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 Page 1 of 1\X0D0A\[address] \X0D0A\[place] [address]\X0D0A\ PROC: 04/05/2023\X0D0A\[facility] RECV: 04/06/2023\X0D0A\[address] RPTD: 04/07/2023\[place]0D0A\[place] [address]\X0D0A\ LOC: WYA\X0D0A\ ACCT: [id number] SEX: M\X0D0A\ : 1940 AGE: 82 Y\X0D0A\X0D0A\ [...] was developed and its performance characteristics determined\X0D0A\by [facility]. It has not been cleared or\X0D0A\approved by the U.S. Food and Drug Administration. Pursuant to the\X0D0A\requirements of CLIA, this laboratory has established and verified the\X0D0A\test's accuracy and precision. Additional information about this type\X0D0A\of test is available upon request.\X0D0A\X0D0A\72149\X0D0A\46151\X0D0A\66518\X0D0A\X0D0A\X 0D0A\ \X0D0A\ REJI FITZGERALD M.D., F.C.A.P.\X0D0A\X0D0A\X0D0A\[facility]/ [facility] Printed on: 04/07/2023\X0D0A\[address]\X0D0A\[place], [place] [address]\X0D0A\Original print date: 04/07/2023 Performed By: #### 1 [id number] #### [facility] See Report Ambulatory Visit Summaryon 0 03-20-2023 Ambulatory Visit Summary TRAVIS COBURN :1940 Visit Date:03/20/2023 Ambulatory Visit Instructions Your Diagnosis Nocturia Urinary urgency BPH with urinary obstruction History of kidney stones Impotence Tests Performed Urnls Dip Stick Auto w/o Microscopy POC 61921 Your Care Team Attending Physician - MIRIAN [...] TURNER, Nguyễn Peter Where: [facility] Patient Educationon 03-20-20 Patient Education [...] Follow these instructions at home: ? Take smrf-vlh-oztioed and prescription medicines only as told by [...] the medicine (more content not included)... 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 Reports he has [...] months [facility] [address], [place] [address] [phone] Additional Instructions: Patient Education Benign Prostatic Hyperplasia Jackeline Emery, personally scribed for Dr. Vela on 03/20/2023 15:38:16. . Documentation recorded by the Jackeline dent, accurately reflects the services(s) I performed and [...] data Procedure/ (more content not included)... Normal [facility] Comment on above: Result Comment: Elec tronically Signed By: Nguyễn VELA MD\.br\Date and Time Signed: 03/20/23 15:41 EDT\.br\Electronically Co-Signed By: Jackeline Graff\.br\Date and Time Co-Signed: 03/20/23 15:38 EDT INSULINon 10-26-2022 Insulin 34.8 uIU/mL Critically high 2.6-24.9 [facility] Comment on above: Performed By: #### C BC #### [facility] [address] [place] [address] Dr. Layla Barrera CBC AUTO DIFFon 10-25-2022 BASO # 0.0 103/ul Normal 0.0-0.1 [facility] Comment on above: Performed By: #### C BC #### [facility] [address] [place] [address] Dr. Layla Barrera Basophils/100 WBC (Bld) 0.6 % Normal 0.2-2.0 [facility] Comment on above: Performed By: #### C BC #### [facility] [address] [address] [address] Layla Barrera EO # 0.3 103/ul Normal 0.0-0.7 [facility] Comment on above: Performed By: #### C BC #### [facility] [address] [place] [address] Dr. Layla Barrera Eosinophils/100 WBC (Bld) 4.2 % Normal 0.9-7.0 [facility] Comment on above: Performed By: #### C BC #### [facility] [address] [place] [address] Dr. Layla Barrera Erythrocyte distribution width (RBC) [Ratio] 13.6 % Normal 11.0-15.0 [facility] Comment on above: Performed By: #### C BC #### [facility] [address] [place] [address] Dr. Layla Barrera Hematocrit (Bld) [Volume fraction] 42.6 % Normal 42.0-54.0 [facility] Comment on above: Performed By: #### C BC #### [facility] [address] [place] [address] Dr. Layla Barrera Hemoglobin (Bld) [Mass/Vol] 14.7 g/dL Normal 14.0-18.0 [facility] Comment on above: Performed By: #### C BC #### [facility] [address] [place] [address] Dr. Layla Barrera IG # 0.02 10e3/ul Normal 0.00-0.03 [facility] Comment on above: Performed By: #### C BC #### [facility] [address] [place] [address] Dr. Layla Barrera IG % 0.3 % Normal 0.0-0.5 [facility] Comment on above: Performed By: #### C BC #### [facility] [address] [place] [address] Dr. Layla Barrera LYMPH # 2.1 103/ul Normal 1.2-3.8 [facility] Comment on above: Performed By: #### C BC #### [facility] [address] [place] [address] Dr. Layla Barrera Lymphocytes/100 WBC (Bld) 30.1 % Normal 20.5-60.0 [facility] Comment on above: Performed By: #### C BC #### [facility] [address] [place] [address] Dr. Layla Barrera MANUAL DIFF REQ NO Normal [facility] Comment on above: Performed By: #### C BC #### [facility] [address] [place] [address] Dr. Layla Barrera MCH (RBC) [Entitic mass] 32.1 pg Normal 25.9-34.0 [facility] Comment on above: Performed By: #### C BC #### [facility] [address] [place] [address] Dr. Layla Barrera MCHC (RBC) [Mass/Vol] 34.5 g/dL Normal 29.9-35.2 [facility] Comment on above: Performed By: #### C BC #### [facility] [address] [address] [address] Layla Barrera MCV (RBC) [Entitic vol] 93.0 fL Normal 80.0-94.0 [facility] Comment on above: Performed By: #### C BC #### [facility] [address] [address] [address] Layla Barrera MONO # 0.6 103/ul Normal 0.3-0.8 [facility] Comment on above: Performed By: #### C BC #### [facility] [address] [address] [address] Layla Barrera Monocytes/100 WBC (Bld) 8.5 % Normal 1.7-12.0 [facility] Comment on above: Performed By: #### C BC #### [facility] [address] [place] [address] Dr. Layla Barrera NEUT # 3.9 103/ul Normal 1.4-6.5 [facility] Comment on above: Performed By: #### C BC #### [facility] [address] [place] [address] Dr. Layla Barrera Neutrophils/100 WBC (Bld) 56.3 % Normal 43.0-75.0 [facility] Comment on above: Performed By: #### C BC #### [facility] [address] [place] [address] Dr. Layla Barrera Platelet mean volume (Bld) [Entitic vol] 10.6 fL Normal 9.5-13.5 [facility] Comment on above: Performed By: #### C BC #### [facility] [address] [address] [address] Layla Barrera PLT 168 103/ul Normal 150-450 [facility] Comment on above: Performed By: #### C BC #### [facility] [address] [address] Layla Barrera RBC 4.58 106/ul Critically low 4.70-6.10 [facility] Comment on above: Performed By: #### C BC #### [facility] [address] [address] [address] Layla Barrera WBC 7.0 103/ul Normal 4.0-11.0 [facility] Comment on above: Performed By: #### C BC #### [facility] [address] [address] [address] Layla Barrera FREE THYROXINE INDEX T7on FTI 2.21 Normal 1.30-4.50 [facility] Comment on above: Performed By: #### C BC #### [facility] [address] [address] [address] Layla Barrera T3U 33.0 % Normal 33.0-40.0 [facility] Comment on above: Performed By: #### C BC #### [facility] [address] [place] [address] Dr. Layla Barrera T4 [Mass/Vol] 6.70 ug/dL Normal 4.50-12.[address] [facility] Comment on above: Performed By: #### C BC #### [facility] [address] [place] [address] Dr. Layla Barrera GLYCOHEMOGLOBIN A1Con 2022 ADA RECOMMENDATION SEE BELOW Normal [place] Comment on above: Result Comment: ADA RECOMMENDED LIMIT 4.0 - 6.0 ADA THERAPEUTIC TARGET < 7.0 ACTION SUGGESTED > 7.0 Performed By: #### G IPANEL #### [facility] [address] [place] [address] Dr. Layla Barrera Glucose [Mass/Vol] 146 mg/dL Normal [facility] Comment on above: Performed By: #### G IPANEL #### [facility] [address] [place] [address] Dr. Layla Barrera HbA1c (Bld) [Mass fraction] 6.7 % Critically high 4.5-6.2 [facility] Comment on above: Performed By: #### G IPANEL #### [facility] [address] [place] [address] Dr. Layla Barrera IRONon 10-25-2022 Iron [Mass/Vol] 82.0 ug/dL Normal 65.0-175.0 [facility] Comment on above: Performed By: #### I SHANIQUA, SONYA, VITB12 #### [facility] [address] [address] [address] Layla Barrera LIPID PROFILEon 10-25-2022 CHOL-HDL RATIO NORM SEE BELOW Normal [facility] Comment on above: Result Comment: 3.3 - 4.4 LOW RISK 4.4 - 7.1 AVERAGE RISK 7.1 - 11.0 MODERATE RISK >11.0 HIGH RISK Performed By: #### C BC #### [facility] [address] [address] [address] Layla Barrera Cholesterol [Mass/Vol] 201 mg/dL Critically high <=200 [facility] Comment on above: Performed By: #### C BC #### [facility] [address] [address] [address] Layla Barrera Cholesterol in HDL [Mass/Vol] 46 mg/dL Normal 40-60 [facility] Comment on above: Performed By: #### C BC #### [facility] [address] [address] [address] Layla Barrera Cholesterol in LDL [Mass/Vol] 133.4 mg/dL Normal [facility] Comment on above: Performed By: #### C BC #### [facility] [address] [address] [address] Layla Barrera Cholesterol.total/ Cholesterol in HDL [Mass ratio] 4.4 {ratio} Normal [facility] Comment on above: Performed By: #### C BC #### [facility] [address] [address] [address] Layla Barrera HDL NORMAL > or = 60 mg/dl - LO W CARDIOVASCULAR RISK <40 mg/dl - HIGH CARDIOVASCULAR RISK Normal [facility] Comment on above: Performed By: #### C BC #### [facility] [address] [address] [address] Layla Barrera LDL CALC NORMAL SEE BELOW Normal [facility] Comment on above: Result Comment: <100 mg/dl OPTIMAL 100 - 129 mg/dl NEAR OR ABOVE OPTIMAL 130 - 159 mg/dl BORDERLINE HIGH 160 - 189 mg/dl HIGH >190 mg/dl VERY HIGH Performed By: #### C BC #### [facility] [address] [place] [address] Dr. Layla Barrera Triglyceride [Mass/Vol] 108 mg/dL Normal <=150 [facility] Comment on above: Performed By: #### C BC #### [facility] [address] [place] [address] Dr. Layla Barrera VLDL CALC 21.6 mg/dL Normal [facility] Comment on above: Performed By: #### C BC #### [facility] [address] [place] [address] Dr. Layla Barrera PROF 14(COMP METB)on 023 Albumin [Mass/Vol] 3.6 g/dL Normal 3.4-5.0 [place] Comment on above: Performed By: #### C BC #### [facility] [address] [place] [address] Dr. Layla Barrera Albumin/Globulin [Mass ratio] 1.0 {ratio} Normal [facility] Comment on above: Performed By: #### C BC #### [facility] [address] [place] [address] Dr. Lyala Barrera ALP [Catalytic activity/Vol] 101 U/L Normal 46-116 [facility] Comment on above: Performed By: #### C BC #### [facility] [address] [place] [address] Dr. Layla Barrera ALT [Catalytic activity/Vol] 42 U/L Normal 16-63 [facility] Comment on above: Performed By: #### C BC #### [facility] [address] [place] [address] Dr. Layla Barrera Anion gap [Moles/Vol] 12.8 mmol/L Normal [facility] Comment on above: Performed By: #### C BC #### [facility] [address] [place] [address] Dr. Layla Barrera AST [Catalytic activity/Vol] 26 U/L Normal 15-37 [facility] Comment on above: Performed By: #### C BC #### [facility] [address] [address] [address] Layla Barrera Bilirubin [Mass/Vol] 0.7 mg/dL Normal 0.2-1.0 [facility] Comment on above: Performed By: #### C BC #### [facility] [address] [place] [address] Dr. Layla Barrera Calcium [Mass/Vol] 8.9 mg/dL Normal 8.5-10.1 [place] Comment on above: Performed By: #### C BC #### [facility] [address] [place] [address] Dr. Layla Barrera Chloride [Moles/Vol] 103 mmol/L Normal 98-107 [facility] Comment on above: Performed By: #### C BC #### [facility] [address] [place] [address] Dr. Layla Barrera CO2 [Moles/Vol] 26.3 mmol/L Normal 21.0-32.0 [facility] Comment on above: Performed By: #### C BC #### [facility] [address] [place] [address] Dr. Layla Barrera Creatinine [Mass/Vol] 1.24 mg/dL Normal 0.70-1.30 [facility] Comment on above: Performed By: #### C BC #### [facility] [address] [place] [address] Dr. Layla Barrera EGFR-AF MALAYSIAN >60 Normal >=60 [facility] Comment on above: Performed By: #### C BC #### [facility] [address] [place] [address] Dr. Layla Barrera EGFR-NON AF MALAYSIAN 56 mL/min/1.73m2 Critically low >=60 [facility] Comment on above: Performed By: #### C BC #### [facility] [address] [place] [address] Dr. Layla Barrera Globulin (S) [Mass/Vol] 3.5 g/dL Normal [facility] Comment on above: Performed By: #### C BC #### [facility] [address] [place] [address] Dr. Layla Barrera Glucose [Mass/Vol] 147 mg/dL Critically high 74-106 [facility] Comment on above: Performed By: #### C BC #### [facility] [address] [address] [address] Layla Barrear Potassium [Moles/Vol] 4.1 mmol/L Normal 3.5-5.1 [facility] Comment on above: Performed By: #### C BC #### [facility] [address] [address] [address] Layla Barrera Protein [Mass/Vol] 7.1 g/dL Normal 6.4-8.2 [place] Comment on above: Performed By: #### C BC #### [facility] [address] [place] [address] Dr. Layla Barrera Sodium [Moles/Vol] 138 mmol/L Normal 136-145 [place] Comment on above: Performed By: #### C BC #### [facility] [address] [place] [address] Dr. Layla Barrera Urea nitrogen [Mass/Vol] 18.0 mg/dL Normal 7.0-18.0 [facility] Comment on above: Performed By: #### C BC #### [facility] [address] [place] [address] Dr. Layla Barrera Urea nitrogen/Creatinin e [Mass ratio] 14.5 mg/mg Normal [facility] Comment on above: Performed By: #### C BC #### [facility] [address] [place] [address] Dr. Layla Barrera TSHon 10-25-2022 TSH 2.495 uIU/mL Normal 0.358-3.740 [facility] Comment on above: Performed By: #### C BC #### [facility] [address] [place] [address] Dr. Layla Barrera URIC ACID SERUMon 10-25-2022 Urate [Mass/Vol] 8.1 mg/dL Critically high 3.5-7.2 [facility] Comment on above: Performed By: #### C BC #### [facility] [address] [address] [address] Layla Barrera VITAMIN B12on 10-25-2022 Cobalamin (Vitamin B12) [Mass/Vol] 689.0 pg/mL Normal 193.0-986.0 [facility] Comment on above: Performed By: #### I SHANIQUA, VITAD, VITB12 #### [facility] [address] [place] [address] Dr. Layla Barrera VITAMIN D 25 OHon 10-25-2022 VIT D 25-OH 17.0 ng/mL Normal [facility] Comment on above: Performed By: #### I SHANIQUA VITAD, VITB12 #### [facility] [address] [place] [address] Dr. Layla Barrera VIT D RANGES SEE BELOW Normal [facility] Comment on above: Result Comment: <20 ng/mL Vit D deficient 20 - <30 ng/mL Vit D insufficient 30 - 100 ng/mL Vit D sufficient >100 ng/mL Potential Toxicity Performed By: #### I SHANIQUA VITAD, VITB12 #### [facility] [address] [place] [address] Dr. Layla Barrera PSA, FREE AND TOTAL RATIOon 06-22-2022 % Free PSA 49.9 % Normal [facility] Comment on above: Result Comment: [...] men. Performed By: #### P SAFREE #### [facility] [address] [place] [address] Dr. Layla Barrera Prostate specific Ag [Mass/Vol] 6.8 ng/mL Critically high 0.0-4.0 [facility] Comment on above: Result Comment: Nikki CARTER methodology. . According to the [employer] [employer], Serum PSA should decrease and [...] disease. Performed By: #### P SAFREE #### [facility] [address] [place] [address] Dr. Layla Barrera PSA, Free 3.39 ng/mL Normal N/A [facility] Comment on above: Result Comment: Nikki bassett ECLIA methodology. Performed By: #### P SAFREE #### [facility] [address] [place] [address] Dr. Layla Barrera H PYLORI ANTIBODY IGGon H. PYLORI IGG ABS 0.96 Index Value Critically high 0.00-0. 79 [facility] Comment on above: Result Comment: Nega tive <0.80 Equivocal 0.80 - 0.89 Positive >0.89 Performed By: #### C BC #### [facility] [address] [place] [address] Dr. Layla Barrera INSULINon 03-12-2022 Insulin 38.7 uIU/mL Critically high 2.6-24.9 [facility] Comment on above: Performed By: #### G IPANEL #### [facility] [address] [place] [address] Dr. Layla Barrera AMYLASEon 03-11-2022 Amylase [Catalytic activity/Vol] 54 U/L Normal 25-115 [facility] Comment on above: Performed By: #### G IPANEL #### [facility] [address] [place] [address] Dr. Layla Barrera CBC AUTO DIFFon 03-11-2022 BASO # 0.1 103/ul Normal 0.0-0.1 [facility] Comment on above: Performed By: #### C BC #### [facility] [address] [place] [address] Dr. Layla Barrera Basophils/100 WBC (Bld) 0.7 % Normal 0.2-2.0 [facility] Comment on above: Performed By: #### C BC #### [facility] [address] [place] [address] Dr. Layla Barrera EO # 0.3 103/ul Normal 0.0-0.7 [facility] Comment on above: Performed By: #### C BC #### [facility] [address] [place] [address] Dr. Layla Barrera Eosinophils/100 WBC (Bld) 3.6 % Normal 0.9-7.0 [facility] Comment on above: Performed By: #### C BC #### [facility] [address] [place] [address] Dr. Layla Barrera Erythrocyte distribution width (RBC) [Ratio] 13.2 % Normal 11.0-15.0 [facility] Comment on above: Performed By: #### C BC #### [facility] [address] [place] [address] Dr. Layla Barrera Hematocrit (Bld) [Volume fraction] 43.0 % Normal 42.0-54.0 [facility] Comment on above: Performed By: #### C BC #### [facility] [address] [place] [address] Dr. Layla Barrera Hemoglobin (Bld) [Mass/Vol] 14.6 g/dL Normal 14.0-18.0 [facility] Comment on above: Performed By: #### C BC #### [facility] [address] [place] [address] Dr. Layla Barrera IG # 0.03 10e3/ul Normal 0.00-0.03 [facility] Comment on above: Performed By: #### C BC #### [facility] [address] [place] [address] Dr. Layla Barrera IG % 0.4 % Normal 0.0-0.5 [facility] Comment on above: Performed By: #### C BC #### [facility] [address] [place] [address] Dr. Layla Barrera LYMPH # 3.0 103/ul Normal 1.2-3.8 [facility] Comment on above: Performed By: #### C BC #### [facility] [address] [place] [address] Dr. Layla Barrera Lymphocytes/100 WBC (Bld) 41.2 % Normal 20.5-60.0 [facility] Comment on above: Performed By: #### C BC #### [facility] [address] [place] [address] Dr. Layla Barrera MANUAL DIFF REQ NO Normal [facility] Comment on above: Performed By: #### C BC #### [facility] [address] [place] [address] Dr. Layla Barrera MCH (RBC) [Entitic mass] 31.8 pg Normal 25.9-34.0 [facility] Comment on above: Performed By: #### C BC #### [facility] [address] [place] [address] Dr. Layla Barrera MCHC (RBC) [Mass/Vol] 34.0 g/dL Normal 29.9-35.2 [facility] Comment on above: Performed By: #### C BC #### [facility] [address] [place] [address] Dr. Layla Barrera MCV (RBC) [Entitic vol] 93.7 fL Normal 80.0-94.0 [facility] Comment on above: Performed By: #### C BC #### [facility] [address] [place] [address] Dr. Layla Barrera MONO # 0.6 103/ul Normal 0.3-0.8 [facility] Comment on above: Performed By: #### C BC #### [facility] [address] [place] [address] Dr. Layla Barrera Monocytes/100 WBC (Bld) 7.9 % Normal 1.7-12.0 [facility] Comment on above: Performed By: #### C BC #### [facility] [address] [place] [address] Dr. Layla Barrera NEUT # 3.3 103/ul Normal 1.4-6.5 [facility] Comment on above: Performed By: #### C BC #### [facility] [address] [address] [address] Layla Barrera Neutrophils/100 WBC (Bld) 46.2 % Normal 43.0-75.0 [facility] Comment on above: Performed By: #### C BC #### [facility] [address] [address] [address] Layla Barrera Platelet mean volume (Bld) [Entitic vol] 11.1 fL Normal 9.5-13.5 [facility] Comment on above: Performed By: #### C BC #### [facility] [address] [address] [address] Layla Barrera PLT 171 103/ul Normal 150-450 [facility] Comment on above: Performed By: #### C BC #### [facility] [address] [address] [address] Layla Barrera RBC 4.59 106/ul Critically low 4.70-6.10 [facility] Comment on above: Performed By: #### C BC #### [facility] [address] [address] [address] Layla Barrera WBC 7.2 103/ul Normal 4.0-11.0 [facility] Comment on above: Performed By: #### C BC #### [facility] [address] [place], [place] [id number] Dr. Layla Barrera CT ABD/PELV W CONon [...] CJ MELTON Date: 2022-03-11 10:08 Normal [facility] GI PANEL (PCR)on 03-11-2022 Adenovirus F 40/41 Not detected Normal NOT DETECTED [facility] Comment on above: Performed By: #### G IPANEL #### [facility] [address] [place] [address] Dr. Layla Barrera Astrovirus Not detected Normal NOT DETECTED [facility] Comment on above: Performed By: #### G IPANEL #### [facility] [address] [place] [address] Dr. Layla Barrera C. Diff toxin A/B Not detected Normal NOT DETECTED [facility] Comment on above: Performed By: #### G IPANEL #### [facility] [address] [place] [address] Dr. Layla Barrera Campylobacter Not detected Normal NOT DETECTED [facility] Comment on above: Performed By: #### G IPANEL #### [facility] [address] [place] [address] Dr. Layla Barrera Cryptosporidium Not detected Normal NOT DETECTED [facility] Comment on above: Performed By: #### G IPANEL #### [facility] [address] [address] [address] Layla Barrera Cyclos. Cayetanensis Not detected Normal NOT DETECTED [facility] Comment on above: Performed By: #### G IPANEL #### [facility] [address] [place] [address] Dr. Layla Barrera E. Coli O157 Not Applicable Normal Not Applicable [facility] Comment on above: Performed By: #### G IPANEL #### [facility] [address] [place] [address] Dr. Layla Barrera E. histolytica Not detected Normal NOT DETECTED [facility] Comment on above: Performed By: #### G IPANEL #### [facility] [address] [place] [address] Dr. Layla Barrera EAEC Not detected Normal NOT DETECTED [facility] Comment on above: Performed By: #### G IPANEL #### [facility] [address] [place] [address] Dr. Layla Barrera EIEC Not detected Normal NOT DETECTED [facility] Comment on above: Performed By: #### G IPANEL #### [facility] [address] [place] [address] Dr. Layla Barrera EPEC Detected Abnormal NOT DETECTED [facility] Comment on above: Performed By: #### G IPANEL #### [facility] [address] [place] [address] Dr. Layla Barrera ETEC Not detected Normal NOT DETECTED [facility] Comment on above: Performed By: #### G IPANEL #### [facility] [address] [place] [address] Dr. Layla Hennessy Lamblia Not detected Normal NOT DETECTED [facility] Comment on above: Performed By: #### G IPANEL #### [facility] [address] [place] [address] Dr. Layla STEINBERG CONTROLS PASSED Normal The [facility] Comment on above: Performed By: #### G IPANEL #### [facility] [address] [place] [address] Dr. Layla ALEXIS BELEN HEADER GI PANEL BACTERIA Normal T [facility] Comment on above: Performed By: #### G IPANEL #### [facility] [address] [place] [address] Dr. Layla SARAVIA ECOLI GI PANEL DIARRHEAGENIC E.COLI / SHIGELLA Normal The [facility] Comment on above: Performed By: #### G IPANEL #### [facility] [address] [place] [address] Dr. Layla SARAVIA INFO SEE BELOW Normal [facility] Comment on above: Result Comment: EAEC - Enteroaggregative E. Coli EPEC- Enteropathogenic E. Coli ETEC- Enterotoxigenic E. Coli lt/st STEC- Shigella-like toxin-producing E. Coli stx1/stx2 EIEC- Shigella/Enteroinvasive E. Coli Performed By: #### G IPANEL #### [facility] [address] [place] [address] Dr. Layla SARAVIA PARASITES GI PANEL PARASITES Normal The [facility] Comment on above: Performed By: #### G IPANEL #### [facility] [address] [address] [address] Layla SARAVIA VIRUS GI PANEL VIRUSES Normal The [facility] Comment on above: Performed By: #### G IPANEL #### [facility] [address] [place] [address] Dr. Layla Barrera Norovirus GI/GII Not detected Normal NOT DETECTED [facility] Comment on above: Performed By: #### G IPANEL #### [facility] [address] [place] [address] Dr. Layla Barrera P. Shigelloides Not detected Normal NOT DETECTED The [facility] Comment on above: Performed By: #### G IPANEL #### [facility] [address] [place] [address] Dr. Layla Barrera Rotavirus A Not detected Normal NOT DETECTED The [facility] Comment on above: Performed By: #### G IPANEL #### [facility] [address] [address] [address] Layla Barrera Salmonella Not detected Normal NOT DETECTED [facility] Comment on above: Performed By: #### G IPANEL #### [facility] [address] [place] [address] Dr. Layla Barrera Sapovirus Not detected Normal NOT DETECTED [facility] Comment on above: Performed By: #### G IPANEL #### [facility] [address] [place] [address] Dr. Layla Barrera STEC Not detected Normal NOT DETECTED [facility] Comment on above: Performed By: #### G IPANEL #### [facility] [address] [address] [address] Layla Barrera Vibrio Not detected Normal NOT DETECTED [facility] Comment on above: Performed By: #### G IPANEL #### [facility] [address] [address] [address] Layla Barrera Vibrio Cholera Not detected Normal NOT DETECTED The [facility] Comment on above: Performed By: #### G IPANEL #### [facility] [address] [place] [address] Dr. Layla Barrera Y. Enterocolitica Not detected Normal NOT DETECTED The [facility] Comment on above: Performed By: #### G IPANEL #### [facility] [address] [place] [address] Dr. Layla Barrera GLYCOHEMOGLOBIN A1Con 2021 ADA RECOMMENDATION SEE BELOW Normal [place] Comment on above: Result Comment: ADA RECOMMENDED LIMIT 4.0 - 6.0 ADA THERAPEUTIC TARGET < 7.0 ACTION SUGGESTED > 7.0 Performed By: #### G IPANEL #### [facility] [address] [place] [address] Dr. Layla Barrera Glucose [Mass/Vol] 134 mg/dL Normal The [facility] Comment on above: Performed By: #### G IPANEL #### [facility] [address] [place] [address] Dr. Layla Barrera HbA1c (Bld) [Mass fraction] 6.3 % Critically high 4.5-6.2 [facility] Comment on above: Performed By: #### G IPANEL #### [facility] [address] [place] [address] Dr. Layla Barrera LIPASEon 03-11-2022 Lipase [Catalytic activity/Vol] 82.0 U/L Normal 73.0-393.0 [facility] Comment on above: Performed By: #### G IPANEL #### [facility] [address] [place] [address] Dr. Layla Barrera LIPID PROFILEon 03-11-2022 CHOL-HDL RATIO NORM SEE BELOW Normal [facility] Comment on above: Result Comment: 3.3 - 4.4 LOW RISK 4.4 - 7.1 AVERAGE RISK 7.1 - 11.0 MODERATE RISK >11.0 HIGH RISK Performed By: #### G IPANEL #### [facility] [address] [address] [address] Layla Barrera Cholesterol [Mass/Vol] 216 mg/dL Critically high <=200 [facility] Comment on above: Performed By: #### G IPANEL #### [facility] [address] [address] [address] Layla Barrera Cholesterol in HDL [Mass/Vol] 47 mg/dL Normal 40-60 [facility] Comment on above: Performed By: #### G IPANEL #### [facility] [address] [address] [address] Layla Barrera Cholesterol in LDL [Mass/Vol] 134.4 mg/dL Normal [facility] Comment on above: Performed By: #### G IPANEL #### [facility] [address] [address] [address] Layla Barrera Cholesterol.total/ Cholesterol in HDL [Mass ratio] 4.6 {ratio} Normal [facility] Comment on above: Performed By: #### G IPANEL #### [facility] [address] [address] [address] Layla Barrera HDL NORMAL > or = 60 mg/dl - LO W CARDIOVASCULAR RISK <40 mg/dl - HIGH CARDIOVASCULAR RISK Normal [facility] Comment on above: Performed By: #### G IPANEL #### [facility] [address] [address] [address] Layla Barrera LDL CALC NORMAL SEE BELOW Normal [facility] Comment on above: Result Comment: <100 mg/dl OPTIMAL 100 - 129 mg/dl NEAR OR ABOVE OPTIMAL 130 - 159 mg/dl BORDERLINE HIGH 160 - 189 mg/dl HIGH >190 mg/dl VERY HIGH Performed By: #### G IPANEL #### [facility] [address] [address] [address] Layla Barrera Triglyceride [Mass/Vol] 173 mg/dL Critically high <=150 [facility] Comment on above: Performed By: #### G IPANEL #### [facility] [address] [place] [address] Dr. Layla Barrera VLDL CALC 34.6 mg/dL Normal [facility] Comment on above: Performed By: #### G IPANEL #### [facility] [address] [place] [address] Dr. Layla Barrera OCC BLD IMMUNO SCREENon OCCULT BLOOD Negative Normal NEGATIVE [facility] Comment on above: Performed By: #### C BC #### [facility] [address] [place] [address] Dr. Layla Barrera PROF 14(COMP METB)on 022 Albumin [Mass/Vol] 3.7 g/dL Normal 3.4-5.0 [place] Comment on above: Performed By: #### C BC #### [facility] [address] [place] [address] Dr. Layla Barrera Albumin/Globulin [Mass ratio] 1.1 {ratio} Normal [facility] Comment on above: Performed By: #### C BC #### [facility] [address] [place] [address] Dr. Layla Barrera ALP [Catalytic activity/Vol] 90 U/L Normal 46-116 [facility] Comment on above: Performed By: #### C BC #### [facility] [address] [place] [address] Dr. Layla Barrera ALT [Catalytic activity/Vol] 66 U/L Critically high 16-63 [facility] Comment on above: Performed By: #### C BC #### [facility] [address] [place] [address] Dr. Layla Barrera Anion gap [Moles/Vol] 12.8 mmol/L Normal [facility] Comment on above: Performed By: #### C BC #### [facility] [address] [place] [address] Dr. Layla Barrera AST [Catalytic activity/Vol] 32 U/L Normal 15-37 [facility] Comment on above: Performed By: #### C BC #### [facility] [address] [address] [address] Layla Barrera Bilirubin [Mass/Vol] 0.7 mg/dL Normal 0.2-1.0 [facility] Comment on above: Performed By: #### C BC #### [facility] [address] [place] [address] Dr. Layla Barrera Calcium [Mass/Vol] 8.9 mg/dL Normal 8.5-10.1 [place] Comment on above: Performed By: #### C BC #### [facility] [address] [place] [address] Dr. Layla Barrera Chloride [Moles/Vol] 100 mmol/L Normal 98-107 [facility] Comment on above: Performed By: #### C BC #### [facility] [address] [place] [address] Dr. Layla Barrera CO2 [Moles/Vol] 27.9 mmol/L Normal 21.0-32.0 [facility] Comment on above: Performed By: #### C BC #### [facility] [address] [place] [address] Dr. Layla Barrera Creatinine [Mass/Vol] 1.30 mg/dL Normal 0.70-1.30 [facility] Comment on above: Performed By: #### C BC #### [facility] [address] [place] [address] Dr. Layla Barrera EGFR-AF MALAYSIAN >60 Normal >=60 [facility] Comment on above: Performed By: #### C BC #### [facility] [address] [place] [address] Dr. Layla Barrera EGFR-NON AF MALAYSIAN 53 mL/min/1.73m2 Critically low >=60 [facility] Comment on above: Performed By: #### C BC #### [facility] [address] [place] [address] Dr. Layla Barrera Globulin (S) [Mass/Vol] 3.3 g/dL Normal [facility] Comment on above: Performed By: #### C BC #### [facility] [address] [place] [address] Dr. Layla Barrera Glucose [Mass/Vol] 137 mg/dL Critically high 74-106 T [facility] Comment on above: Performed By: #### C BC #### [facility] [address] [address] [address] Layla Barrera Potassium [Moles/Vol] 3.7 mmol/L Normal 3.5-5.1 [facility] Comment on above: Performed By: #### C BC #### [facility] [address] [address] [address] Layla Barrera Protein [Mass/Vol] 7.0 g/dL Normal 6.4-8.2 [place] Comment on above: Performed By: #### C BC #### [facility] [address] [place] [address] Dr. Layla Barrera Sodium [Moles/Vol] 137 mmol/L Normal 136-145 [place] Comment on above: Performed By: #### C BC #### [facility] [address] [address] [address] Layla Barrera Urea nitrogen [Mass/Vol] 20.0 mg/dL Critically high 7.0-18.0 [facility] Comment on above: Performed By: #### C BC #### [facility] [address] [place] [address] Dr. Layla Barrera Urea nitrogen/Creatinin e [Mass ratio] 15.4 mg/mg Normal [facility] Comment on above: Performed By: #### C BC #### [facility] [address] [place], [place] [id number] Dr. Layla Barrera URIC ACID SERUMon 03-11-2022 Urate [Mass/Vol] 8.3 mg/dL Critically high 3.5-7.2 [facility] Comment on above: Performed By: #### G IPANEL #### [facility] [address] [place] [address] Dr. Layla Barrera Office Visit (Cardiology)on 12-28-2021 Follow-up visit Diagnoses/Problems Assessed Benign essential hypertension (401.1) (I10) Coronary artery disease (414.00) (I25.10) Hyperlipidemia (272.4) (E78.5) Class 1 obesity with body mass index (BMI) of 34.0 to 34.9 in adult (278.00,V85.34) (E66.9,Z68.34) Former smoker (V15.82) (Z87.891) Quit: 1992 Orders Class 1 obesity with body mass [...] 09:51AM Hea (more content not included)... Normal [employer] Tobacco Screening.on 022 Fall risk assessment a) No falls within the last year [facility] [employer] [address] DO Work Phone: Tobacco use status [facility]PH[facility] b) No -[facility] [address] DO Work Phone: [facility] CARDIAC STRESS/REST INJE CTIONon 12-21-2021 [facility] CARDIAC STRESS/REST INJECTION Patient Name: TRAVIS COBURN STUDY: MYOCARDIAL PERFUSION STRESS TEST WITH LEXISCAN Performing facility: [facility] Provider: [facility]eras [facility] PCP: Dr. Navarrete Supervising provider: Shaquille Ramos DO, [facility] INDICATION: CAD; Dyspnea HISTORY: Gender: M; Age: 81 y/o ; Height: 0 cm; Weight: 660.3095994 kg. CAD; High Cholesterol; HTN; SOB; Fatigue; Quit smoking 30 years ago. Cardiac catheterization on 2005. COMPARISON: Previous nuclear testing completed [id number] at [facility]. ACCESSION NUMBER(S): [id number]; [id number]; [id number] ORDERING CLINICIAN: JOHNNIE DERAS TECHNIQUE: TWO DAY [...] signed by: ABDOUL TIMMONS MD Normal [facility] No Panel Informationon 12-21 Normal -[facility] [address] DO Work Phone: Office [...] DAILY. Allergies (more content not included)... Normal [employer] Tobacco Screening.on 022 Adult depression screening assessment No [facility] [place] [address] DO Work Phone: Fall risk assessment a) No falls within the last year [facility] [place] [address] DO Work Phone: Tobacco use status [facility] b) No MP-[facility] [address] DO Work Phone: C REACTIVE PROTEINon 022 CRP [Mass/Vol] 3.3 mg/L Normal 0.0-7.0 The [facility] Comment on above: Performed By: #### 6 1405 #### [facility] [address] CBC AUTO DIFFon 11-25-2021 BASO # 0.0 103/ul Normal 0.0-0.1 The [facility] Comment on above: Performed By: #### G IPANEL #### [facility] [address] [place] [address] Dr. Layla Barrera Basophils/100 WBC (Bld) 0.5 % Normal 0.2-2.0 [facility] Comment on above: Performed By: #### G IPANEL #### [facility] [address] [place] [address] Dr. Layla Barrera EO # 0.2 103/ul Normal 0.0-0.7 [facility] Comment on above: Performed By: #### G IPANEL #### [facility] [address] [place] [address] Dr. Layla Barrera Eosinophils/100 WBC (Bld) 3.0 % Normal 0.9-7.0 [facility] Comment on above: Performed By: #### G IPANEL #### [facility] [address] [place] [address] Dr. Layla Barrera Erythrocyte distribution width (RBC) [Ratio] 13.7 % Normal 11.0-15.0 [facility] Comment on above: Performed By: #### G IPANEL #### [facility] [address] [place] [address] Dr. Layla Barrera Hematocrit (Bld) [Volume fraction] 40.0 % Critically low 42.0-54.0 [facility] Comment on above: Performed By: #### G IPANEL #### [facility] [address] [place] [address] Dr. Layla Barrera Hemoglobin (Bld) [Mass/Vol] 13.4 g/dL Critically low 14.0-18.0 [facility] Comment on above: Performed By: #### G IPANEL #### [facility] [address] [place] [address] Dr. Layla Barrera IG # 0.02 10e3/ul Normal 0.00-0.03 [facility] Comment on above: Performed By: #### G IPANEL #### [facility] [address] [place] [address] Dr. Layla Barrera IG % 0.3 % Normal 0.0-0.5 [facility] Comment on above: Performed By: #### G IPANEL #### [facility] [address] [place] [address] Dr. Lyala Barrera LYMPH # 2.4 103/ul Normal 1.2-3.8 [facility] Comment on above: Performed By: #### G IPANEL #### [facility] [address] [place] [address] Dr. Layla Barrera Lymphocytes/100 WBC (Bld) 39.6 % Normal 20.5-60.0 [facility] Comment on above: Performed By: #### G IPANEL #### [facility] [address] [place] [address] Dr. Layla Barrera MANUAL DIFF REQ NO Normal [facility] Comment on above: Performed By: #### G IPANEL #### [facility] [address] [place] [address] Dr. Layla Barrera MCH (RBC) [Entitic mass] 31.3 pg Normal 25.9-34.0 [facility] Comment on above: Performed By: #### G IPANEL #### [facility] [address] [place] [address] Dr. Layla Barrera MCHC (RBC) [Mass/Vol] 33.5 g/dL Normal 29.9-35.2 [facility] Comment on above: Performed By: #### G IPANEL #### [facility] [address] [place] [address] Dr. Layla Barrera MCV (RBC) [Entitic vol] 93.5 fL Normal 80.0-94.0 [facility] Comment on above: Performed By: #### G IPANEL #### [facility] [address] [place] [address] Dr. Layla Barrera MONO # 0.6 103/ul Normal 0.3-0.8 [facility] Comment on above: Performed By: #### G IPANEL #### [facility] [address] [place] [address] Dr. Layla Barrera Monocytes/100 WBC (Bld) 9.3 % Normal 1.7-12.0 [facility] Comment on above: Performed By: #### G IPANEL #### [facility] [address] [place] [address] Dr. Layla Barrera NEUT # 2.8 103/ul Normal 1.4-6.5 [facility] Comment on above: Performed By: #### G IPANEL #### [facility] [address] [place] [address] Dr. Layla Barrera Neutrophils/100 WBC (Bld) 47.3 % Normal 43.0-75.0 [facility] Comment on above: Performed By: #### G IPANEL #### [facility] [address] [place] [address] Dr. Layla Barrera Platelet mean volume (Bld) [Entitic vol] 10.4 fL Normal 9.5-13.5 [facility] Comment on above: Performed By: #### G IPANEL #### [facility] [address] [place] [address] Dr. Layla Barrera PLT 184 103/ul Normal 150-450 [facility] Comment on above: Performed By: #### G IPANEL #### [facility] [address] [place] [address] Dr. Layla Barrera RBC 4.28 106/ul Critically low 4.70-6.10 [facility] Comment on above: Performed By: #### G IPANEL #### [facility] [address] [place] [address] Dr. Layla Barrera WBC 5.9 103/ul Normal 4.0-11.0 [facility] Comment on above: Performed By: #### G IPANEL #### [facility] [address] [place], [place] [address] Dr. Layla Barrera CBC W/DIFFon 11-25-2021 ABS IMM GRANS 0.0 10*3/uL Normal 0.0-0.2 [facility] Comment on above: Performed By: #### 5 [id number], [id number] #### [facility] [address] [place] [address], [facility] ABS NEUTROPHILS 3.6 10*3/uL Normal 1.6-7.6 [facility] Comment on above: Performed By: #### 5 6505, [id number] #### [facility] [address] [address], [facility] Basophils (Bld) [#/Vol] 0.0 10*3/uL Normal 0.0-0.2 [facility] Comment on above: Performed By: #### 5 6505, [id number] #### [facility] [address] [address], [facility] Basophils/100 WBC (Bld) 0.4 % Normal 0.0-1.0 [facility] Comment on above: Performed By: #### 5 6505, [id number] #### [facility] [address] [address], [place] Eosinophils (Bld) [#/Vol] 0.2 10*3/uL Normal 0.0-0.5 [facility] Comment on above: Performed By: #### 5 650, [id number] #### [facility] [address] [place] [address], [place] Eosinophils/100 WBC (Bld) 2.2 % Normal 0.0-6.0 [facility] Comment on above: Performed By: #### 5 650, [id number] #### [facility] [address] [place] [address], [place] Erythrocyte distribution width (RBC) [Ratio] 13.6 % Normal 11.5-15.0 [facility] Comment on above: Performed By: #### 5 [id number], [id number] #### [facility] [address] [place] [address], [facility] Hematocrit (Bld) [Volume fraction] 40.4 % Normal 39.0-50.0 [facility] Comment on above: Performed By: #### 5 6505, [id number] #### [facility] [address] Hemoglobin (Bld) [Mass/Vol] 13.7 g/dL Normal 13.0-17.0 [facility] Comment on above: Performed By: #### 5 6505, [id number] #### [facility] [address] IMMATURE GRANS 0.3 % Normal 0.0-1.0 [facility] Comment on above: Performed By: #### 5 6505, 23297 #### [facility] [address] Lymphocytes (Bld) [#/Vol] 2.4 10*3/uL Normal 1.2-4.0 [facility] Comment on above: Performed By: #### 5 6505, 69545 #### [facility] [address] [place] [address], [facility] Lymphocytes/100 WBC (Bld) 35.0 % Normal 20.0-45.0 [facility] Comment on above: Performed By: #### 5 6505, 95762 #### [facility] [address] [place] [address], [facility] MCH (RBC) [Entitic mass] 31.8 pg Normal 27.0-33.0 [facility] Comment on above: Performed By: #### 5 [id number], [id number] #### [facility] [address] [facility] MCHC (RBC) [Mass/Vol] 33.9 g/dL Normal 32.0-35.0 [facility] Comment on above: Performed By: #### 5 [id number], [id number] #### [facility] [address] [facility] MCV (RBC) [Entitic vol] 93.7 fL Normal 82.0-98.0 The [facility] Comment on above: Performed By: #### 5 [id number], [id number] #### [facility] [address] [facility] [place] [address], [facility] Monocytes (Bld) [#/Vol] 0.6 10*3/uL Normal 0.1-1.0 The [facility] Comment on above: Performed By: #### 5 [id number], [id number] #### [facility] [address] [facility]. [address] MONOS 8.4 % Normal 5.0-12.0 The [facility] Comment on above: Performed By: #### 5 [id number], [id number] #### [facility] [address] [facility]. [address] Neutrophils/100 WBC (Bld) 53.7 % Normal 40.0-72.0 The [facility] Comment on above: Performed By: #### 5 [id number], [id number] #### [facility] [address] [facility]. [address] Nucleated RBC/100 WBC (Bld) [Ratio] 0 % Normal 0-0 The [facility] Comment on above: Performed By: #### 5 [id number], [id number] #### [facility] [address] [facility] [place] [address], [facility] PLAT CNT 198 10*3/uL Normal 150-400 The [facility] Comment on above: Performed By: #### 5 [id number], [id number] #### [facility] [address] [facility] [place] [address], [facility] RBC (Bld) [#/Vol] 4.31 10*6/uL Normal 4.20-5.70 The [facility] Comment on above: Performed By: #### 5 6506, [id number] #### [facility] [address] [place] [address], [facility] WBC (Bld) [#/Vol] 6.75 10*3/uL Normal 4.00-10.60 The [facility] Comment on above: Performed By: #### 5 [id number], [id number] #### [facility] [address] [facility] [place] [address], [facility] COMP METABOLIC PANELon 11-25 Albumin [Mass/Vol] 4.1 g/dL Normal 3.5-5.7 The [facility] Comment on above: Performed By: #### 0 0121 #### [facility] [address] [facility] ALKALINE PHOSPH 87 IU/L Normal 34-104 The [facility] Comment on above: Performed By: #### 0 0121 #### [facility] [address] [facility] ALT [Catalytic activity/Vol] 47 U/L Normal 7-52 The [facility] Comment on above: Performed By: #### 0 0121 #### [facility] [address] [facility] [address] AST [Catalytic activity/Vol] 29 U/L Normal 13-39 The [facility] Comment on above: Performed By: #### 0 0121 #### [facility] [address] [facility] [address], [facility] Bilirubin [Mass/Vol] 0.7 mg/dL Normal 0.3-1.0 The [facility] Comment on above: Performed By: #### 0 0121 #### [facility] [address] [place] [address], [facility] Calcium [Mass/Vol] 9.7 mg/dL Normal 8.6-10.3 The [facility] Comment on above: Performed By: #### 0 0121 #### [facility] [address] [place] [address], [place] Chloride [Moles/Vol] 103 mmol/L Normal 98-107 The [facility] Comment on above: Performed By: #### 0 0121 #### [facility] [address] [place] [address], [place] CO2 [Moles/Vol] 30 mmol/L Normal 21-31 The [facility] Comment on above: Performed By: #### 0 0121 #### [facility] [address] [place] [address], [place] Creatinine [Mass/Vol] 1.06 mg/dL Normal 0.70-1.30 The [facility] Comment on above: Performed By: #### 0 0121 #### [facility] [address] [place] [address], [place] GFR/1.73 sq M.predicted among blacks MDRD (S/P/Bld) [Vol rate/Area] mL/min/{1.73_m2} Normal >60 The [facility] Comment on above: Result Comment: Calc ulation may not be valid for patients over 70 years Performed By: #### 0 0121 #### [facility] [address] [place] [address], [place] GFR/1.73 sq M.predicted among non-blacks MDRD (S/P/Bld) [Vol rate/Area] mL/min/{1.73_m2} Normal >60 The [facility] Comment on above: Result Comment: Calc ulation may not be valid for patients over 70 years Performed By: #### 0 0121 #### [facility] [address] [place] [address], [place] Glucose [Mass/Vol] 94 mg/dL Normal 70-100 The [facility] Comment on above: Performed By: #### 0 0121 #### [facility] [address] [place] [address], [facility] Potassium [Moles/Vol] 4.7 mmol/L Normal 3.5-5.1 The [facility] Comment on above: Performed By: #### 0 0121 #### [facility] [address] [facility] [address], [facility] Protein [Mass/Vol] 6.6 g/dL Normal 6.0-8.3 The [facility] Comment on above: Performed By: #### 0 0121 #### [facility] [address] [facility] [address], [facility] Sodium [Moles/Vol] 138 mmol/L Normal 136-145 The [facility] Comment on above: Performed By: #### 0 0121 #### [facility] [address] [facility] [address], [facility] Urea nitrogen [Mass/Vol] 17 mg/dL Normal 7-25 The [facility] Comment on above: Performed By: #### 0 0121 #### [facility] [address] FREE THYROXINE INDEX T7on 0 - FTI 2.38 Normal 1.30-4.50 [facility] Comment on above: Performed By: #### T SH, CMP, T7, MG #### [facility] [address] [address] [address] Layla Barrera T3U 34.0 % Normal 33.0-40.0 The [facility] Comment on above: Performed By: #### T SH, CMP, T7, MG #### [facility] [address] [address] [address] Layla Barrera T4 [Mass/Vol] 7.00 ug/dL Normal 4.50-12.[address] [facility] Comment on above: Performed By: #### T SH, CMP, T7, MG #### [facility] [address] [place] [address] Dr. Layla Barrera MAGNESIUMon 11-25-2021 Magnesium [Mass/Vol] 1.7 mg/dL Critically low 1.8-2.4 [facility] Comment on above: Performed By: #### T SH, CMP, T7, MG #### [facility] [address] [place] [address] Dr. Layla Barrera PROF 14(COMP METB)on 022 Albumin [Mass/Vol] 3.5 g/dL Normal 3.4-5.0 [place] Comment on above: Performed By: #### T SH, CMP, T7, MG #### [facility] [address] [place] [address] Dr. Layla Barrera Albumin/Globulin [Mass ratio] 1.1 {ratio} Normal [facility] Comment on above: Performed By: #### T SH, CMP, T7, MG #### [facility] [address] [place] [address] Dr. Layla Barrera ALP [Catalytic activity/Vol] 97 U/L Normal 46-116 [facility] Comment on above: Performed By: #### T SH, CMP, T7, MG #### [facility] [address] [place] [address] Dr. Layla Barrera ALT [Catalytic activity/Vol] 64 U/L Critically high 16-63 [facility] Comment on above: Performed By: #### T SH, CMP, T7, MG #### [facility] [address] [address] [address] Layla Barrera Anion gap [Moles/Vol] 11.6 mmol/L Normal [facility] Comment on above: Performed By: #### T SH, CMP, T7, MG #### [facility] [address] [place] [address] Dr. Layla Barrera AST [Catalytic activity/Vol] 27 U/L Normal 15-37 [facility] Comment on above: Performed By: #### T SH, CMP, T7, MG #### [facility] [address] [place] [address] Dr. Layla Barrera Bilirubin [Mass/Vol] 0.8 mg/dL Normal 0.2-1.0 [facility] Comment on above: Performed By: #### T SH, CMP, T7, MG #### [facility] [address] [address] [address] Layla Barrera Calcium [Mass/Vol] 9.0 mg/dL Normal 8.5-10.1 [place] Comment on above: Performed By: #### T SH, CMP, T7, MG #### [facility] [address] [place] [address] Dr. Layla Barrera Chloride [Moles/Vol] 102 mmol/L Normal 98-107 [facility] Comment on above: Performed By: #### T SH, CMP, T7, MG #### [facility] [address] [place] [address] Dr. Layla Barrera CO2 [Moles/Vol] 27.3 mmol/L Normal 21.0-32.0 [facility] Comment on above: Performed By: #### T SH, CMP, T7, MG #### [facility] [address] [place] [address] Dr. Layla Barrera Creatinine [Mass/Vol] 1.15 mg/dL Normal 0.70-1.30 [facility] Comment on above: Performed By: #### T SH, CMP, T7, MG #### [facility] [address] [place] [address] Dr. Layla Barrera EGFR-AF MALAYSIAN >60 Normal >=60 [facility] Comment on above: Performed By: #### T SH, CMP, T7, MG #### [facility] [address] [place] [address] Dr. Layla Barrera EGFR-NON AF MALAYSIAN >60 Normal >=60 [facility] Comment on above: Performed By: #### T SH, CMP, T7, MG #### [facility] [address] [place] [address] Dr. Layla Barrera Globulin (S) [Mass/Vol] 3.3 g/dL Normal The [facility] Comment on above: Performed By: #### T SH, CMP, T7, MG #### [facility] [address] [place] [address] Dr. Layla Barrera Glucose [Mass/Vol] 144 mg/dL Critically high 74-106 [facility] Comment on above: Performed By: #### T SH, CMP, T7, MG #### [facility] [address] [place] [address] Dr. Layla Barrera Potassium [Moles/Vol] 3.9 mmol/L Normal 3.5-5.1 [facility] Comment on above: Performed By: #### T SH, CMP, T7, MG #### [facility] [address] [place] [address] Dr. Layla Barrera Protein [Mass/Vol] 6.8 g/dL Normal 6.4-8.2 [place] Comment on above: Performed By: #### T SH, CMP, T7, MG #### [facility] [address] [place] [address] Dr. Layla Barrera Sodium [Moles/Vol] 137 mmol/L Normal 136-145 [place] Comment on above: Performed By: #### T SH, CMP, T7, MG #### [facility] [address] [place] [address] Dr. Layla Barrera Urea nitrogen [Mass/Vol] 16.0 mg/dL Normal 7.0-18.0 [facility] Comment on above: Performed By: #### T SH, CMP, T7, MG #### [facility] [address] [place] [address] Dr. Layla Barrera Urea nitrogen/Creatinin e [Mass ratio] 13.9 mg/mg Normal [facility] Comment on above: Performed By: #### T SH, CMP, T7, MG #### [facility] [address] [place] [address] Dr. Layla Barrera SEDIMENTATION RATEon 022 SED RATE 10 mm/hr Normal 0-10 The [facility] Comment on above: Performed By: #### 5 [id number], [id number] #### [address] TSHon 11-25-2021 TSH 2.406 uIU/mL Normal 0.358-3.[address] [facility] Comment on above: Performed By: #### T SH, CMP, T7, MG #### [facility] [address] [address] [address] Layla Barrera TSH RANGE SEE BELOW Normal The [facility] Comment on above: Result Comment: <0.3 4 UIU/ml HYPERTHYROID 0.34-5.60 UIU/ml EUTHYROID >5.60 UIU/ml HYPOTHYROID Performed By: #### T SH, CMP, T7, MG #### [facility] [address] [address] [address] Layla Barrera CBC W/DIFFon 05-27-2021 ABS IMM GRANS 0.0 10*3/uL Normal 0.0-0.2 The [facility] Comment on above: Performed By: #### 5 0103 #### [facility] [address] ABS NEUTROPHILS 3.8 10*3/uL Normal 1.6-7.6 The [facility] Comment on above: Performed By: #### 5 0103 #### [facility] [address] Basophils (Bld) [#/Vol] 0.0 10*3/uL Normal 0.0-0.2 [facility] Comment on above: Performed By: #### 5 0103 #### [facility] [address] Basophils/100 WBC (Bld) 0.6 % Normal 0.0-1.0 [facility] Comment on above: Performed By: #### 5 0103 #### [facility] [address] Eosinophils (Bld) [#/Vol] 0.2 10*3/uL Normal 0.0-0.5 [facility] Comment on above: Performed By: #### 0103 #### [facility] [address] [place] [address], [facility] Eosinophils/100 WBC (Bld) 2.7 % Normal 0.0-6.0 The [facility] Comment on above: Performed By: #### 3 #### [facility] [address] [facility] Erythrocyte distribution width (RBC) [Ratio] 13.4 % Normal 11.5-15.0 [facility] Comment on above: Performed By: #### 3 #### [facility] [address] [facility] [place] [address], [facility] Hematocrit (Bld) [Volume fraction] 41.7 % Normal 39.0-50.0 [facility] Comment on above: Performed By: #### 102 #### [facility] [address] [facility] [address] Hemoglobin (Bld) [Mass/Vol] 14.3 g/dL Normal 13.0-17.0 [facility] Comment on above: Performed By: #### 102 #### [facility] [address] [facility] [place] [address], [facility] IMMATURE GRANS 0.6 % Normal 0.0-1.0 [facility] Comment on above: Performed By: #### 3 #### [facility] [address] [facility] [address], [facility] Lymphocytes (Bld) [#/Vol] 2.5 10*3/uL Normal 1.2-4.0 [facility] Comment on above: Performed By: #### 3 #### [facility] [address] [facility] [place] [address], [facility] Lymphocytes/100 WBC (Bld) 35.0 % Normal 20.0-45.0 The [facility] Comment on above: Performed By: #### 3 #### [facility] [address] [facility]. [address] MCH (RBC) [Entitic mass] 31.6 pg Normal 27.0-33.0 [facility] Comment on above: Performed By: #### 5 3 #### [facility] [address] [facility] [address] MCHC (RBC) [Mass/Vol] 34.3 g/dL Normal 32.0-35.0 [facility] Comment on above: Performed By: #### 5 3 #### [facility] [address] MCV (RBC) [Entitic vol] 92.3 fL Normal 82.0-98.0 [facility] Comment on above: Performed By: #### 102 #### [facility] [address] [facility]. [address] Monocytes (Bld) [#/Vol] 0.5 10*3/uL Normal 0.1-1.0 [facility] Comment on above: Performed By: #### 5 3 #### [facility] [address] MONOS 7.4 % Normal 5.0-12.0 [facility] Comment on above: Performed By: #### 5 3 #### [facility] [address] [facility]. [address] Neutrophils/100 WBC (Bld) 53.7 % Normal 40.0-72.0 [facility] Comment on above: Performed By: #### 5 3 #### [facility] [address] Nucleated RBC/100 WBC (Bld) [Ratio] 0 % Normal 0-0 [facility] Comment on above: Performed By: #### 5 3 #### [facility] [address] [place] [address], [facility] PLAT CNT 194 10*3/uL Normal 150-400 [facility] Comment on above: Performed By: #### 5 0103 #### [facility] [address] [place] [address], [facility] RBC (Bld) [#/Vol] 4.52 10*6/uL Normal 4.20-5.70 [facility] Comment on above: Performed By: #### 5 0103 #### [facility] [address] [place] [address], [facility] WBC (Bld) [#/Vol] 7.02 10*3/uL Normal 4.00-10.60 [facility] Comment on above: Performed By: #### 5 0103 #### [facility] [address] [facility] [address], [facility] LIVER BATTERYon 05-27-2021 Albumin [Mass/Vol] 4.1 g/dL Normal 3.5-5.7 The [facility] Comment on above: Performed By: #### 9 9909 #### [facility] [address] [facility] [place] [address], [facility] ALKALINE PHOSPH 75 IU/L Normal 34-104 The [facility] Comment on above: Performed By: #### 9 9909 #### [facility] [address] [facility] [address], [facility] ALT [Catalytic activity/Vol] 42 U/L Normal 7-52 [facility] Comment on above: Performed By: #### 9 9909 #### [facility] [address] [facility] [place] [address], [facility] AST [Catalytic activity/Vol] 27 U/L Normal 13-39 [facility] Comment on above: Performed By: #### 9 9909 #### [facility] [address] [place] [id number], [facility] Bilirubin [Mass/Vol] 0.5 mg/dL Normal 0.3-1.0 [facility] Comment on above: Performed By: #### 9 9909 #### [facility] [address] [place] [address], [facility] Bilirubin.direct [Mass/Vol] 0.1 mg/dL Normal 0.0-0.2 [facility] Comment on above: Performed By: #### 9 9909 #### [facility] [address] [place] [address], [facility] Protein [Mass/Vol] 6.8 g/dL Normal 6.0-8.3 [facility] Comment on above: Performed By: #### 9 9909 #### [facility] [address] Vital Signs Date Time Vital Sign Value Performing Clinician Facility 01-19-2024 11:30-0400 Blood Pressure Location [facility]guy[facility]n [facility] 01-19-2024 11:30-0400 Body temperature 98.6 [degF] [facility] 01-19-2024 11:30-0400 Diastolic blood pressure 84 mm[Hg] [facility]guy[facility] 01-19-2024 11:30-0400 Heart rate 74 /min [facility]guy[facility] 01-19-2024 11:30-0400 Respiratory rate 16 /min Nguy[facility]n [facility] 01-19-2024 11:30-0400 Systolic blood pressure 133 mm[Hg] [facility]guy[facility]n [facility] 11-27-2023 10:39-0400 Diastolic blood pressure 80 mm[Hg] Johnnie Deras MD Work Phone: [facility] 11-27-2023 10:39-0400 Systolic blood pressure 130 mm[Hg] Johnnie Deras MD Work Phone: [facility] 11-27-2023 10:11-0400 Body height 175.3 cm Johnnie Deras MD Work Phone: [facility] 11-27-2023 10:11-0400 Body mass index (BMI) [Ratio] 35.12 kg/m2 Johnnie Deras MD Work Phone: [facility] 11-27-2023 10:11-0400 Body weight 107.86 kg Johnnie Deras MD Work Phone: [facility] 11-27-2023 10:11-0400 Heart rate 80 /min Johnnie Deras MD Work Phone: [facility] 07-18-2023 14:14-0500 Blood Pressure Location [facility]qu[facility] [place] 07-18-2023 14:14-0500 Diastolic blood pressure 88 mm[Hg] Shaquille LILL[facility] [place] 07-18-2023 14:14-0500 Heart rate 92 /min Shaquille LILL[facility] [place] 07-18-2023 14:14-0500 Respiratory rate 16 /min Shaquille L[facility] [place] 07-18-2023 14:14-0500 Systolic blood pressure 138 mm[Hg] Shaquille LILL[facility] [place] 03-20-2023 14:45-0400 Diastolic blood pressure 92 mm[Hg] Nguy[facility]n VELA [facility] 03-20-2023 14:45-0400 Mean blood pressure 111 mm[Hg] Nguyễn VELA [facility] 03-20-2023 14:45-0400 Systolic blood pressure 150 mm[Hg] Nguyễn VELA [facility] 03-20-2023 14:29-0400 Blood Pressure Location Nguyễn VELA [facility] 03-20-2023 14:29-0400 Diastolic blood pressure 91 mm[Hg] Nguyễn VELA [facility] 03-20-2023 14:29-0400 Heart rate 86 /min Nguyễn VELA [facility] 03-20-2023 14:29-0400 Systolic blood pressure 158 mm[Hg] Nguy[facility]n VELA [facility] 12-28-2021 10:15-0400 Body height 177.8 cm Mayra M Hoy Work Phone: [facility] 250 DO Work Phone: 12-28-2021 10:15-0400 Body mass index (BMI) [Ratio] 34.15 kg/m2 Mayra M Hoy Work Phone: [facility] 250 DO Work Phone: 12-28-2021 10:15-0400 Body surface area Derived from formula 2.25 m2 Mayra M Hoy Work Phone: [facility] 250 DO Work Phone: 12-28-2021 10:15-0400 Body weight 107.96 kg Mayra M Hoy Work Phone: [facility] 250 DO Work Phone: 12-28-2021 10:15-0400 Diastolic blood pressure 70 mm[Hg] Mayra M Hoy Work Phone: [facility] 250 DO Work Phone: 12-28-2021 10:15-0400 Heart rate 60 /min Mayra M Hoy Work Phone: [facility] 250 DO Work Phone: 12-28-2021 10:15-0400 Systolic blood pressure 138 mm[Hg] Mayra M Hoy Work Phone: [facility] 250 DO Work Phone: 12-28-2021 09:51-0400 Body height 177.8 cm Mayra M Hoy Work Phone: [facility] 250 DO Work Phone: 12-28-2021 09:51-0400 Body mass index (BMI) [Ratio] 34.15 kg/m2 Mayra M Hoy Work Phone: [facility] 250 DO Work Phone: 12-28-2021 09:51-0400 Body surface area Derived from formula 2.25 m2 Mayra M Hoy Work Phone: [facility] 250 DO Work Phone: 12-28-2021 09:51-0400 Body weight 107.96 kg Mayra M Hoy Work Phone: [facility] 250 DO Work Phone: 12-28-2021 09:51-0400 Diastolic blood pressure 70 mm[Hg] Mayra M Hoy Work Phone: [facility] 250 DO Work Phone: 12-28-2021 09:51-0400 Heart rate 60 /min Mayra M Hoy Work Phone: [facility] 250 DO Work Phone: 12-28-2021 09:51-0400 Systolic blood pressure 146 mm[Hg] Mayra M Hoy Work Phone: [facility] 250 DO Work Phone: 12-22-2021 08:00-0400 53 [phone] Mayra M Hoy Work Phone: [facility] 250 DO Work Phone: Comment on above: [id number] 12-08-2021 15:22-0400 Body height 177.8 cm Mayra Jesse Hoy Work Phone: [facility] 250 DO Work Phone: 12-08-2021 15:22-0400 Body mass index (BMI) [Ratio] 34.15 kg/m2 Mayra M Hoy Work Phone: [facility] 250 DO Work Phone: 12-08-2021 15:22-0400 Body surface area Derived from formula 2.25 m2 Mayra Jesse Hoy Work Phone: [facility] 250 DO Work Phone: 12-08-2021 15:22-0400 Body weight 107.96 kg Mayra Jesse Hoy Work Phone: [facility] 250 DO Work Phone: 12-08-2021 15:22-0400 Diastolic blood pressure 70 mm[Hg] Mayra Jesse Hoy Work Phone: [facility] 250 DO Work Phone: 12-08-2021 15:22-0400 Heart rate 87 /min Mayra M Hoy Work Phone: [facility] 250 DO Work Phone: 12-08-2021 15:22-0400 Systolic blood pressure 138 mm[Hg] Mayra M Hoy Work Phone: [facility] 250 DO Work Phone: 12-08-2021 15:12-0400 Diastolic blood pressure 70 mm[Hg] Mayra Jesse Hoy Work Phone: [facility] 250 DO Work Phone: 12-08-2021 15:12-0400 Systolic blood pressure 140 mm[Hg] Mayra Jesse Hoy Work Phone: [facility] 250 DO Work Phone: 12-08-2021 15:08-0400 Body height 177.8 cm Mayra Jesse Hoy Work Phone: [facility] 250 DO Work Phone: 12-08-2021 15:08-0400 Body mass index (BMI) [Ratio] 34.15 kg/m2 Mayra Jesse Hoy Work Phone: [facility] 250 DO Work Phone: 12-08-2021 15:08-0400 Body surface area Derived from formula 2.25 m2 Mayra Jesse Hoy Work Phone: [facility] 250 DO Work Phone: 12-08-2021 15:08-0400 Body weight 107.96 kg Mayra Molina Hoy Work Phone: [facility] 250 DO Work Phone: 12-08-2021 15:08-0400 Diastolic blood pressure 82 mm[Hg] Mayra Molina Hoy Work Phone: [facility] 250 DO Work Phone: 12-08-2021 15:08-0400 Heart rate 87 /min Mayra Jesse Hoy Work Phone: [facility] 250 DO Work Phone: 12-08-2021 15:08-0400 Systolic blood pressure 142 mm[Hg] Mayra Jesse Hoy Work Phone: [facility] 250 DO Work Phone: Encounters Encounter Date Encounter Type Care Provider Facility Start: 06-26-2024 End: 06-26-2024 Treatment Katey Depoy NEEDLE LOOM OPERATOR HELPER Work Phone: [facility] PT Comment on above: Unilateral vestibula r weakness, right (Primary Dx); Cervicalgia; Balance disorder Start: 06-25-2024 End: 06-25-2024 ambulatory PHILIPPE ROUSE Not Available Start: 06-25-2024 End: 06-25-2024 Bamboo flowsheet Philippe Ralf Ana DO Work Phone: [facility] Start: 06-25-2024 End: 06-25-2024 Bamboo flowsheet Philippe Rouse DO Work Phone: [facility] Start: 06-18-2024 End: 06-18-2024 Bamboo flowsheet Katey Depoy NEEDLE LOOM OPERATOR HELPER Work Phone: [facility] Start: 06-18-2024 End: 06-18-2024 Bamboo flowsheet Katey Depoy NEEDLE LOOM OPERATOR HELPER Work Phone: [facility] Start: 06-18-2024 End: 06-18-2024 Treatment Katey Depoy NEEDLE LOOM OPERATOR HELPER Work Phone: [facility] Comment on above: Unilateral vestibula r weakness, right (Primary Dx); Cervicalgia; Balance disorder Start: 06-10-2024 End: 06-10-2024 Treatment Shaquille Gamez PT Work Phone: [facility] Comment on above: Cervicalgia (Primary Dx); Balance disorder; Unilateral vestibular weakness, right Start: 05-22-2024 End: 05-22-2024 Bamboo flowsheet Katey Depoy NEEDLE LOOM OPERATOR HELPER Work Phone: [facility] Start: 05-22-2024 End: 05-22-2024 Bamboo flowsheet Katey Depoy NEEDLE LOOM OPERATOR HELPER Work Phone: [facility] Start: 05-22-2024 End: 05-22-2024 Treatment Katey Gee NEEDLE LOOM OPERATOR HELPER Work Phone: [facility] Comment on above: Balance disorder (Pr imary Dx); Unilateral vestibular weakness, right; Cervicalgia Start: 05-07-2024 End: 05-07-2024 Bamboo flowsheet Shaquille Gamez PT Work Phone: [facility] Start: 05-07-2024 End: 05-07-2024 Bamboo flowsheet Shaquille Gamez PT Work Phone: [facility] Start: 05-07-2024 End: 05-07-2024 Treatment Shaquille Gamez PT Work Phone: [facility] Comment on above: Unilateral vestibula r weakness, right (Primary Dx); Cervicalgia; Balance disorder Start: 04-23-2024 End: 04-23-2024 Treatment Shaquille Gamez PT Work Phone: [facility] Comment on above: Cervicalgia (Primary Dx); Balance disorder; Unilateral vestibular weakness, right Start: 04-17-2024 End: 04-17-2024 ambulatory [facility] Start: 04-04-2024 ambulatory [facility] Start: 04-02-2024 End: 04-02-2024 Treatment Shaquille Gamez PT Work Phone: [facility] Comment on above: Unilateral vestibula r weakness, right (Primary Dx); Cervicalgia; Balance disorder Start: 03-18-2024 End: 03-18-2024 Bamboo flowsdaja Gamez PT Work Phone: [facility] Start: 03-18-2024 End: 03-18-2024 Bamboo flowsheet Shaquille Gamez PT Work Phone: [facility] Start: 03-18-2024 End: 03-18-2024 Treatment Shaquille Gamez PT Work Phone: [facility] Comment on above: Unilateral vestibula r weakness, right (Primary Dx); Cervicalgia; Balance disorder Start: 03-08-2024 End: 03-08-2024 Bamboo flowsheet Shaquille Gamez PT Work Phone: [facility] Start: 03-08-2024 End: 03-08-2024 Bamboo flowsheet Shaquille Gamez PT Work Phone: [facility] Start: 03-08-2024 End: 03-08-2024 Evaluation Shaquille Gamez PT Work Phone: [facility] Comment on above: Balance disorder (Pr imary Dx); Unilateral vestibular weakness, right; Cervicalgia Start: 02-15-2024 End: 02-15-2024 ambulatory LUIS DANIEL Molina [facility] Start: 02-06-2024 End: 02-06-2024 ambulatory [facility]ulatory Start: 02-01-2024 End: 02-01-2024 ambulatory RADHA Linden MONTES Not Available Start: 01-23-2024 End: 01-23-2024 ambulatory MEGAN H TIMMIS Not Available Start: 01-19-2024 End: 01-19-2024 Patient encounter procedure Nguyễn VELA [facility] Start: 12-27-2023 End: 12-27-2023 ambulatory MEGAN H TIMMIS Not Available Start: 12-25-2023 End: 12-25-2023 ambulatory YUE GARCIA Not Available Start: 11-27-2023 End: 11-27-2023 Office outpatient visit 15 minutes Johnnie Deras MD Work Phone: [facility] Comment on above: Coronary artery dise ase involving [place] coronary artery of [place] heart without angina pectoris (Primary Dx); Benign essential hypertension; Mixed hyperlipidemia; Former cigarette smoker Start: 11-27-2023 End: 11-27-2023 ambulatory JOHNNIE DERAS [facility] Ambulatory Start: 10-11-2023 End: 10-[facility]-2023 [facility] Start: 10-02-2023 ambulatory TOO [facility] Start: 09-13-2023 End: 09-14-2023 ambulatory Shaquille R NILL Facility: [place] Start: 09-13-2023 End: 09-13-2023 Patient encounter procedure Shaquille R NILL [facility] [place] Start: 09-01-2023 End: 09-02-2023 ambulatory Shaquille R NILL Facility: [place] Start: 09-01-2023 End: 09-01-2023 Patient encounter procedure Shaquille R NILL [facility] [place] Start: 08-22-2023 End: 08-23-2023 ambulatory Mayra Navarrete Facility:[facility] Start: 08-22-2023 End: 08-22-2023 Patient encounter procedure Shaquille R NILL [facility] [place] Start: 08-22-2023 End: 08-22-2023 ambulatory MD Mayra Navarrete Work Phone: [facility] Work Phone: Start: 08-22-2023 End: 08-22-2023 Departed Referred MD Mayra Navarrete Work Phone: [facility] Start: 08-17-2023 End: 08-17-2023 ambulatory LUIS DANIEL BRUNNER [facility] Start: 08-16-2023 End: 08-16-2023 ambulatory TOO THOMPSON [facility] Start: 07-20-2023 End: 07-20-2023 ambulatory RADHA MONTES Not Available Start: 07-18-2023 End: 07-19-2023 ambulatory Shaquille R NILL Facility: [place] Start: 07-18-2023 End: 07-18-2023 Patient encounter procedure Shaquille R NILL [facility] [place] Start: 04-05-2023 [facility] Start: 04-05-2023 End: 04-05-2023 ambulatory MICHELLE Molina [facility] Start: 03-20-2023 End: 03-21-2023 ambulatory Nguyễn VELA Facility:[facility] Start: 03-20-2023 End: 03-20-2023 Patient encounter procedure Nguyễn VELA [facility] Start: 10-28-2022 DAYNA ORR, Provider : ALIYA YOUNG WAX ENGRAVER 1,[id number], Status: Pen, Time: 10:00 AM Mayra Navarrete Work Phone: [facility] 250 DO Work Phone: Start: 10-28-2022 Patient encounter procedure Mayra Navarrete Work Phone: [facility] 250 DO Work Phone: Start: 10-28-[address] Johnnie aldana [facility] Facility: Start: 10-27-2022 Telephone encounter Mayra Navarrete Work Phone: [facility] 250 DO Work Phone: Start: 10-25-2022 End: 10-26-2022 ambulatory KWADWO CRUMP Facility:[facility] Start: 06-20-2022 End: 06-21-[address] MAYRA NAVARRETE . Facility:[facility] Start: 03-11-2022 End: 03-12-[address] MAYRA NAVARRETE . Facility:[facility] Start: 01-25-2022 Rx Renewal Mayra Navarrete Work Phone: [facility] 600 DO Work Phone: Start: 12-30-2021 Chart Update Mayra Navarrete Work Phone: [facility] 250 DO Work Phone: Start: 12-28-2021 Office outpatient vi sit 25 minutes Mayra Navarrete Work Phone: [facility] 250 DO Work Phone: Start: 12-28-2021 Patient encounter procedure Mayra Navarrete Work Phone: [facility] 250 DO Work Phone: Start: 12-28-[address] Mayra Navarrete Facility: Start: 12-08-2021 Office outpatient vi sit 25 minutes Mayra Navarrete Work Phone: [facility] 250 DO Work Phone: Start: 12-08-[address] Mayra Navarrete Facility: Start: 11-25-2021 End: 11-26-[address] MAYRA NAVARRETE . Facility: Start: 11-24-2021 End: 11-25-[address] MAYRA NAVARRETE . Facility: Procedures Date Procedure Procedure Detail Performing Clinician Start: 06-25-2024 Computerized ophthalmic imaging retina Philippe Rouse DO Work Phone: Start: 06-25-2024 End: 06-25-2024 Oph medical xm&eval maria luisahnsv estab pt 1/> Type 2 diabetes mellitus without complication, with long-term current use of insulin (CMS/HCC) Philippe Rouse DO Work Phone: Comment on above: Type 2 diabetes mellitus without complic ation, with long-term current use of insulin (CMS/HCC) (Primary Dx); 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 degeneration of both eyes; Age-related nuclear cataract of both eyes; Dry eyes; Blepharitis of upper and lower eyelids of both eyes, unspecified type Start: 11-27-2023 Lipid panel JOHNNIE DERAS Start: 08-22-2023 Excision of basal cell carcinoma Shaquille LILLY Start: 04-05-2023 Procedure on back Nguyễn MIRIAN Start: 06-20-[address] MAYRA NAVARRETE . Comment on above: Performed By: #### GIPANEL #### [facility] [address] [address] [address] Layla Barrera Start: 04-09-2014 right knee [...] Work Phone: Excision of mass of breast M ichmandy NILL Extracorporeal shock wave lithotripsy of calculus of kidney Nguyễn VELA heart catheterization Krish VELA Hemorrhoidectomy Nguyễnmaranda JOSEPH ERS History of repair of musculotendinous cuff of shoulder Nguyễn VELA Comment on above: left Operation on nose Mayra M Hoy Work Phone: Prostate Surgery Nguyễn OPAL ERS Renal lithotripsy Mayra M Hoy Work Phone: Repair of elbow Nguyễn WATE RS Comment on above: left Repair of musculoten dinous cuff of shoulder Mayra M Hoy Work Phone: Comment on above: Left; Shoulder Surgery Nguyễn OPAL ERS Total colonoscopy Mayra Navarrete Work Phone: Comment on above: [id number]; Plan of Treatment Date Care Activity Detail Author Start: 06-25-2025 End: 06-25-2025 Patient encounter procedure 06/25/2025 11:00 AM EST Office Visit [facility] [address] [place] [id number] Philippe Rouse DO [address] [place] [address] [facility] Start: 11-29-2024 End: 11-29-2024 Patient encounter procedure 11/29/2024 10:20 AM EDT Office Visit [facility] [address] [facility] [address] [place] [address] Abdoul Timmons MD [address] [place] [address] [facility] Start: 07-23-2024 End: 07-23-2024 Patient encounter procedure 07/23/2024 1:30 PM EST Office Visit [facility] [address] [place] [phone] Radha Montes MD [address] [place] [address] [facility] Start: 07-22-2024 End: 07-22-2024 Patient encounter procedure 07/22/2024 11:30 AM EST Office Visit [facility] [address] [place] [phone] Radha Montes MD [address] [place] [address] [facility] Start: 07-09-2024 End: 07-09-2024 ambulatory 07/09/2024 10:30 AM EST Treatment [facility] [address] [place] [address] Moira Winkler PTA [facility] Start: 06-26-2024 End: 06-26-2024 ambulatory 06/26/2024 10:30 AM EST Treatment [facility] [address] [place] [address] Katey Gee, NEEDLE LOOM OPERATOR HELPER [address] [place] [address] [facility] Start: 06-25-2024 End: 06-25-2024 Patient encounter procedure [facility] Comment on above: Arrived Start: 06-25-2024 End: 06-25-2024 ambulatory 06/25/2024 10:30 AM EST Treatment [facility] [address] [place] [address] Moira Winkler PTA [facility] Start: 06-11-2024 End: 06-11-2024 ambulatory 06/11/2024 10:00 AM EST Treatment [facility] [address] [place] [address] Katey Gee, NEEDLE LOOM OPERATOR HELPER [address] [place] [address] [facility] Start: 05-15-2024 End: 05-15-2024 ambulatory 05/15/2024 10:30 AM EST Treatment [facility] [address] [place] [address] Katey Gee, NEEDLE LOOM OPERATOR HELPER [address] [place] [address] [facility] Start: 05-07-2024 End: 05-07-2024 ambulatory [facility] Comment on above: Arrived Start: 04-23-2024 End: 04-23-2024 ambulatory 04/23/2024 9:40 AM EDT Treatment [facility] [address] [place] [address] Shaquille Gamez, PT [address] [place] [address] [facility] Start: 04-02-2024 End: 04-02-2024 ambulatory 04/02/2024 9:30 AM EDT Treatment [facility] [address] [place] [address] Shaquille Gamez, PT [address] [place] [address] [facility] Start: 03-18-2024 End: 03-18-2024 ambulatory [facility] Comment on above: Cervicalgia (Primary Dx); Balance disorder; Unilateral vestibular weakness, right Start: 03-10-2024 Influenza vaccination U [facility] Start: 03-08-2024 End: 03-08-2024 Evaluation 03/08/2024 8:20 AM EDT Evaluation [facility] [address] [place] [phone] Shaquille Gamez, PT [address] [place] [address] Balance disorder (Primary Dx) [facility] Comment on above: Balance disorder (Pr imary Dx) Start: 01-19-2024 ambulatory [facility]ulatory [facility] Start: 11-27-2023 End: 11-26-2024 Lipid 1996 panel - Serum or Plasma Lipid Panel Lab Routine Mixed hyperlipidemia Expected: 11/27/2023 (Approximate), Expires: 11/26/2024 [facility] Service Area Work Phone: Comment on above: Expected: 11/27/2023 (Approximate), Expires: 11/26/2024 Start: 03-10-2023 COVID-19 Vaccine () COVID-19 Vaccine () [facility] Start: 12-06-2022 FUV, Provider: Johnnie Deras, Status: Pen, Time: 10:00 AM FUV, Provider: Johnnie Deras, Status: Pen, Time: 10:00 AM -[facility] 250 DO Work Phone: Start: 11-24-2022 FUV, Provider: Johnnie Deras, Status: Pen, Time: 2:00 PM FUV, Provider: Johnnie Deras, Status: Pen, Time: 2:00 PM -[facility] 250 DO Work Phone: Start: 12-28-2021 FUV, Provider: Johnnie Deras, Status: Pen, Time: 9:45 AM FUV, Provider: Johnnie Deras, Status: Pen, Time: 9:45 AM -[facility] 250 DO Work Phone: Start: 12-22-2021 REST ONLY, Provider: [place] [facility] NUCLEAR 01,[id number], Status: Pen, Time: 8:00 AM REST ONLY, Provider: [place] [facility] NUCLEAR 01,[id number], Status: Pen, Time: 8:00 AM -[facility] 250 DO Work Phone: Start: 12-21-2021 STRESSNUC2, Provider : [place] [facility] NUCLEAR 01,[id number], Status: Pen, Time: 8:00 AM STRESSNUC2, Provider: [place] [facility] NUCLEAR 01,[id number], Status: Pen, Time: 8:00 AM -[facility] 250 DO Work Phone: Start: 2001 Hepatitis B Vaccines (1 of 3 - Risk 3-dose series) Hepatitis B Vaccines (1 of 3 - Risk 3-dose series) [facility] Start: 2001 RSV patient s and/or patients aged 60+ years (1 - 1-dose 60+ series) RSV patients and/or patients aged 60+ years (1 - 1-dose 60+ series) [facility] Start: 11-03-1991 Zoster Vaccines (1 o f 2) Zoster Vaccines (1 of 2) [facility] Start: 04-26-1964 DTaP/Tdap/Td Vaccine s (1 - Tdap) DTaP/Tdap/Td Vaccines (1 - Tdap) [facility] Start: 1960 Hepatitis A Vaccines (1 of 2 - Risk 2-dose series) Hepatitis A Vaccines (1 of 2 - Risk 2-dose series) [facility] Start: 1941 Lipid panel Lipid Panel [facility] Start: 1941 Medicare Annual Wellness Visit Medicare Annual Wellness Visit (AWV) [facility] Start: 1941 Screening for osteoporosis Bone Density Scan [facility] Immunizations Immunization Date Immunization Notes Care Provider Fa [facility] 07-26-2022 Fluad Quadrivalent 0 .5 ML Intramuscular Prefilled Syringe Mayra Navarrete Work Phone: [facility] 250 DO Work Phone: 07-26-2022 influenza virus vaccine, unspecified formulation Nguyễn VELA [facility] 11-17-2021 Comirnaty 30 MCG/0.3 ML Intramuscular Suspension Mayra Jesse Navarrete Work Phone: [facility] 250 DO Work Phone: 11-17-2021 SARS-CoV-2 mRNA (gartcueeqgt-cqmi-drcwm se) vaccine Nguyễn VELA [facility] 05-20-2021 Pfizer-BioNTech COVID-19 Vacc 30 MCG/0.3ML Intramuscular Suspension Mayra Molina Landon Work Phone: [facility] Comment on above: Result Comment: 2022: [id number] 05-12-2021 influenza, seasonal, injectable Johnnie Deras MD Work Phone: [facility] Work Phone: 11-17-2020 SARS-CoV-2 (COVID-19 ) mRNA BNT-162b2 vax Nguyễn VELA [facility] 10-29-2020 Pfizer-BioNTech COVID-19 Vacc 30 MCG/0.3ML Intramuscular Suspension Mayra Navarrete Work Phone: [facility] Comment on above: Result Comment: 2022: [id number] 10-28-2020 Moderna COVID-19 vaccine, bivalent, blue cap/cunningham label *Check age/dose* Johnnie Deras MD Work Phone: [facility] Work Phone: 10-27-2020 SARS-CoV-2 (COVID-19 ) mRNA BNT-162b2 vax Nguyễn VELA [facility] 10-06-2020 Pfizer-BioNTech COVID-19 Vacc 30 MCG/0.3ML Intramuscular Suspension Mayra Navarrete Work Phone: [facility] Comment on above: Result Comment: 2022: [id number] 09-29-2020 Moderna COVID-19 vaccine, bivalent, blue cap/cunningham label *Check age/dose* Johnnie Deras MD Work Phone: [facility] Work Phone: 04-23-2020 influenza virus vaccine, unspecified formulation Nguyễn VELA [facility] 04-23-2020 influenza, high dose seasonal, preservative-free Mayra Molina Sunnymichelle Work Phone: [facility] 250 DO Work Phone: 04-09-2018 influenza virus vaccine, unspecified formulation [facility]te [facility] Work Phone: 07-10-2017 pneumococcal polysaccharide vaccine, 23 valent Mayra Molina Sunnymichelle [facility] Work Phone: 04-09-2016 influenza virus vaccine, unspecified formulation Mayra M Hoy Work Phone: [facility] 250 DO Work Phone: 04-09-2016 pneumococcal conjuga te vaccine, 13 valent Mayra M Hoy Work Phone: [facility] 250 DO Work Phone: 04-22-2015 influenza virus vaccine, unspecified formulation Nguyễn VELA [facility] 04-22-2015 influenza, injectabl e, quadrivalent, contains preservative Mayra M Hoy Work Phone: [facility] 250 DO Work Phone: 04-09-2015 influenza virus vaccine, unspecified formulation Mayra M Hoy Work Phone: [facility] 250 DO Work Phone: 05-22-2014 influenza virus vaccine, unspecified formulation Nguyễn VELA [facility] 05-22-2014 influenza, injectabl e, quadrivalent, contains preservative Mayra M Hoy Work Phone: [facility] 250 DO Work Phone: 07-10-2012 influenza virus vaccine, unspecified formulation Mayra M Hoy Work Phone: [facility] 250 DO Work Phone: 07-10-2011 pneumococcal polysaccharide vaccine, 23 valent Mayra M Hoy Work Phone: [facility] 250 DO Work Phone: influenza virus vaccine, unspecified formulation Mayra M Hoy Work Phone: [facility] 250 DO Work Phone: Comment on above: 2011 NEGATED: Highlighted row has not occurred!07-18-2023 influenza virus vaccine, unspecified formulation Shaquille [facility] [place] Payers Date Payer Category Payer Self-pay [id number] 2018 Private Health Insurance [id number] 2006 Medicare [id number] 1959 Medicare [id number] 1959 Private Health Insurance [id number] 1941 Unknown [id number] 2.16. [id number] 1941 Unknown [id number] 2.16. [id number] 1941 Unknown [id number] 2.16. [id number] 1941 Unknown [id number] 2.16.84 [id number] 1941 Unknown [id number] 2.16.84 [id number] 1941 Unknown [id number] 2.16.84 [id number] 1941 Unknown [id number] 2.16.84 [id number] 1941 Unknown [id number] 2.16.84 [id number] 1941 Unknown [id number] 2.16.8 [id number] 1941 Unknown [id number] 2.16.8 [id number] 1941 Unknown [id number] 2.16.8 40.1.176369.3.579.2.727 1940 Unknown [id number] 2.16.8 40.1.256195.3.579.2.727 1940 Unknown [id number] 2.16.8 40.1.583250.3.579.2.727 1941 Unknown [id number] 2.16.8 40.1.506980.3.579.2.727 1941 Unknown [id number] 2.16.8 40.1.993919.3.579.2.727 1941 Unknown [id number] 2.16.8 40.1.823246.3.579.2.727 1941 Unknown [id number] 2.16.8 40.1.967914.3.579.2.1244 1941 Unknown [id number] 2.16.8 40.1.097763.3.579.2.1244 1941 Unknown [id number] 2.16.84 0.1.666485.3.579.2.1259 1941 Unknown [id number] 2.16.84 0.1.810309.3.579.2.1259 1941 Unknown [id number] 2.16.84 0.1.895145.3.579.2.1259 1941 Unknown [id number] 2.16.84 0.1.830880.3.579.2.1259 1941 Unknown [id number] 2.16.84 0.1.659840.3.579.2.1259 1941 Unknown [id number] 2.16.84 0.1.985148.3.579.2.1259 1941 Unknown [id number] 2.16.84 0.1.593046.3.579.2.1259 1941 Unknown [id number] 2.16.84 0.1.385225.3.579.2.1259 1941 Unknown [id number] 2.16.84 0.1.720879.3.579.2.1259 1941 Unknown [id number] 2.16.84 0.1.138908.3.579.2.1259 1941 Unknown [id number] 2.16.84 0.1.757910.3.579.2.1258 1941 Unknown [id number] 2.16.84 0.1.071104.3.579.2.1259 1941 Unknown [id number] 2.16.84 0.1.010302.3.579.2.1258 1941 Unknown [id number] 2.16.84 0.1.353515.3.579.2.9 1941 Unknown [id number] 2.16.84 0.1.063427.3.579.2.1259 Medicare [id number] Unknown Unknown [id number] Unknown [id number] 2.16.8 40.1.132901.3.579.2.531 Social History Date Type Detail Facility Start: 11-27-2023 End: 02-01-2024 Caffeine use Caffeine use [place] [address] DO Work Phone: Comment on above: Coffee: 1 cup dailyS ac- Occasionally; Quit: 1991; Start: 03-20-2023 End: 07-27-2023 Tobacco smoking status Ex-smoker (finding) [facility] Tobacco smoking status Never [facility] Start: 11-27-2023 End: 02-01-[address] [facility] Start: 1940 Sex Assigned At Male F [facility] History of tobacco use Current smoker [facility] Work Phone: History of tobacco use Cigarette Smoker [facility] Work Phone: Start: 07-27-2023 End: 11-27-2023 Tobacco use and exposure Smokeless tobacco non-user [facility] Work Phone: Start: 11-27-2023 End: 02-01-2024 Alcoholic beverage intake Lifetime non-drinker (finding) [facility] Work Phone: Start: 1940 Sex assigned at Not on file U [facility] Work Phone: Start: 11-17-2023 End: 11-27-2023 Exposure to SARS-CoV-2 (event) Not sure [facility] Start: 07-27-2023 Alcohol Comment caffeine 1-2 cups/day [facility] NEGATED: Highlighted rowStart: NINF History of tobacco use Passive smoker [facility] Functional Status Date Assessment Result Facility 01-19-2024 Functional Status N/A [facility] 07-18-2023 Functional Status N/A General Gonzalez [facility] 03-20-2023 Functional Status N/A [facility] Clinical Notes 03-20-2023 to 06-25-2024 Philippe Rouse, DO - 06/25/2024 2:30 PM Jessee Gamez, PT - 06/10/2024 9:30 AM Elder Gee, NEEDLE LOOM OPERATOR HELPER - 05/22/2024 11:30 AM Jessee Gamez, PT - 05/07/2024 9:40 AM EDT Note Date & Type Note Facility 06-25-2024 Note Right Eye Quality was good. Scan locations included subfoveal. Progression has been stable. Findings include normal observations. Left Eye Quality was good. Scan locations included subfoveal. Progression has been stable. Findings include normal observations. Notes Good scan with normal appearance [facility] 06-25-2024 History of Present illness Narrative Images from the original note were not included. Assessment/Plan Diagnoses and all orders for this visit: Type 2 diabetes mellitus without complication, with long-term current use of insulin ([facility]) - Diabetes Mellitus without sign of diabetic retinopathy on dilated retinal examination today OU: Discussed the pathophysiology of diabetes and its effect on the eye. Stressed the importance of strong glucose control. Advised of importance of at least yearly dilated examinations, but to contact us immediately for any problems or concerns. 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 degeneration of both eyes - ARMD OU, dry. Importance of smoking cessation, blood pressure control, and healthy diet were emphasized. Patient was advised to consider ultraviolet-B blocking sunglasses. In accordance with the AREDS study, appropriate antioxidant and mineral supplements were prescribed. Patient was instructed to self monitor their monocular vision (reading/Amsler Grid) at least weekly. Patient should immediately report any new onset of decreased vision or metamorphopsia. Age-related nuclear cataract of both eyes - Cataract, OU: Observe for now without intervention. The patient was advised to contact us if any change or worsening of vision Dry eyes - Dry Eyes OU -- Environmental changes to minimize dryness and exposure and the use of artificial tears were recommended. Blepharitis of upper and lower eyelids of both eyes, unspecified type - Blepharitis, posterior type OU - The patient exhibits inspissated meibomian glands. Warm compresses, lid massage and lid scrubs were recommended. documented in this encounter [facility] 06-10-2024 History of Present illness Narrative Travis Coburn [id number] 06/05/24 Subjective: 05/07: visit one was with NEEDLE LOOM OPERATOR HELPER Will refer back to Moira after reevaluation [...] psoriatic arthritis Vision troubles they go funny, stock handler floorperson 3 times last year they say its [...] POC medically necessary. Please sign below. Shaquille Gamez, PT, Dsc, OCS, COMT, AIB-VAM Director Vestibular Rehabilitation documented in this encounter [facility] 05-22-2024 History of Present illness Narrative Travis Coburn [id number] 05/22/24 Visit Number: 6 Supervised Time: 60' [...] Once every other week Cosigned by Shaquille Gamez PT at 05/28/2024 1:53 PM EST documented in this encounter [facility] 05-07-2024 History of Present illness Narrative Travis Coburn [id number] 05/07/24 Subjective: 05/07: 5th visit. 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 Please sign below. Shaquille Gamez, PT, Dsc, OCS, COMT, AIB-VAM Director Vestibular Rehabilitation documented in this encounter [facility] 04-23-2024 History of Present illness Narrative Travis Coburn [id number] 04/21/24 Subjective: 83 yom sent to PT [...] psoriatic arthritis Vision troubles they go funny, stock handler floorperson 3 times last year they say its [...] 38 See flow sheet May need moira will test balance next session and decide Assessment: [...] POC medically necessary. Please sign below. Shaquille Gamez PT, Dsc, OCS, COMT, AIB-VAM Director Vestibular Rehabilitation documented in this encounter [facility] 04-17-2024 Note Comprehensive Care C enter Nephrology Clinic Patient: Travis Coburn; 83 y.o. Visit date: 04/17/24 Reason for today's visit: Follow up for CKD stage 3 and Hypertension SUBJECTIVE: BACKGROUND: Travis Coburn is a 83 y.o. male has a past medical history of Diabetes mellitus (CMS/HCC), Hypertension, Polymyalgia rheumatica (CMS/HCC), and Psoriatic arthritis (CMS/HCC). Patient has history of Type II diabetes [...] 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 10 mg once weekly by his assurance analyst for polymyalgia rheumatica Blood pressure & heart [...] Iron studies: Lab (more content not included)... 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 Please sign below. Shaquille Gamez, PT, Dsc, OCS, COMT, AIB-VAM Director Vestibular Rehabilitation documented in this encounter [facility] 03-18-2024 History of Present illness Narrative Travis Coburn [id number] 03/17/24 Subjective: 83 yom sent to PT by [...] psoriatic arthritis Vision troubles they go funny, stock handler floorperson 3 times last year they say its ok 2nd Objective/Examination: *Hearing: Impaired R Postional Testing: Negative [...] impaired vor horizonal motion Therapeutic Intervention: reEvaluation Fail sop Adjust neck rom Cdvat fail begin vor Heat aerobics Revise hep See flow sheet 38 Assessment: 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 Please sign below. 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 Please sign below. Shaquille Gamez PT, Dsc, OCS, COMT, AIB-VAM Director Vestibular Rehabilitation documented in this encounter [facility] 02-15-2024 Note Attestation signed by Luis Daniel [...] for Follow-up (6 month follow up). HPI Mr. Travis Coburn is [...] reports that he had last seen the virologist about 6 months ago with no concerns [...] discussed the p (more content not included)... [facility] 01-19-2024 Hospital Discharge instructions Patient Education 01/19/2024 [...] urethra. Follow these instructions at home: Take dtez-efr-helomqx and prescription medicines only as told by [...] provider. Document Revised: 01/12/2022 Document Reviewed: 01/12/2022 Elsevier Patient Education 2022 [employer] Follow Up Care 03/20/2023 15:42:16 With:MIRIAN TURNER, Nguyễn Peter, URL Address: [address] [place] [address]- When: Unknown [facility] 11-27-2023 History of Present illness [...] Rfl: Assessment/Plan 1. Coronary artery disease involving [place] coronary artery of [place] heart without angina pectoris No recurrence of symptoms such as those that preceded his original diagnosis. 2. Benign essential hypertension Review of treatment strategy demonstrates good control 3. Mixed hyperlipidemia Review of treatment strategy demonstrates good control 4. Former cigarette smoker Congratulated on cessation Scribe Attestation By signing my name below, I, Jailene Vasquez LPN attest that this documentation has been prepared [...] discussion and plan. documented in this encounter [facility] Work Phone: 11-27-2023 Instructions Ban Lisa LPN [...] instructions on exercise. documented in this encounter [facility] Work Phone: 10-11-2023 Note Attestation signed by [...] Nephrology, Department of Medicine, [facility]. [facility] Patient: Travis Coburn; 82 y.o. Visit date: 10/11/23 Reason for today's visit: Follow up for CKD stage 3 and Hypertension SUBJECTIVE: BACKGROUND: Travis Coburn is a 82 y.o. male has a past medical history of Diabetes mellitus ([facility]), Hypertension, Polymyalgia rheumatica ([facility]), and Psoriatic arthritis ([facility]). Patient has history of Type II diabetes [...] 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 10 mg once weekly by his assurance analyst for polymyalgia rheumatica Blood pressure & heart [...] Lab Results Com (more content not included)... [facility] 08-17-2023 Note Attestation signed by Luis Daniel [...] eyes as of lately. He notes some wrsw-mu-zkprwezg blurriness to his vision that comes and goes. He states this started prior to even last seeing his virologist. He notes he last saw his virologist about 5-6 months ago and all was [...] Follow-up in 6 months Patient seen by TREVA Crespo and Dr. Brunner [facility] 08-16-2023 Note Attestation signed by Too Thompson MD at 08/19/2023 9:50 PM I saw, interviewed, examined and evaluated the patient with Nephrology fellow Dr. Faith Matias. I participated in the medical management of the patient. I reviewed the fellow's note and agree with the fellow's documentation in the note. Too Thompson MD Faculty, Division of Nephrology, Department of Medicine, [facility]. [facility] Nephrology [facility] Patient: Travis Coburn; 82 y.o. Visit date: 08/16/23 Reason for today's visit: New patient, new Acute kidney injury SUBJECTIVE: BACKGROUND: Travis Coburn is a 82 y.o. male has a past medical history of Diabetes mellitus ([facility]), Hypertension, Polymyalgia rheumatica ([facility]), and Psoriatic arthritis ([facility]). Patient has history of Type II diabetes [...] oriented to pe (more content not included)... [facility] 07-18-2023 Note Chief Complaint consultation for skin [...] smoker, quit more (more content not included)... [facility] Comment on above: Result Comment: Elec tronically Signed By: MAXX TURNER, Shaquille Peter\sujata\Date and Time Signed: 07/18/23 14:37 EST 06-09-2023 Note TC to patient notifi ed of nephrology referral has been sent. NS [facility] 06-09-2023 Note Pt called needing a referral for nephrology. Pt states he would like to set up an appointment in [place], discussed in telephone call with you. [facility] 03-20-2023 Hospital Discharge instructions Patient Education 03/20/2023 [...] urethra. Follow these instructions at home: Take rtnu-pzc-nuhrahh and prescription medicines only as told by [...] provider. Document Revised: 01/12/2022 Document Reviewed: 01/12/2022 [employer] Patient Education 2022 [employer]. Follow Up Care 08/23/2021 11:50:10 With:Nguyễn VELA MD, URL Address: [facility] [address], [place] [address]- [phone] When:Within 6 Month(s) [facility] Evaluation + Plan note Future Appointments Appointment Date:09/18/2023 12:45:00 PM Scheduled Provider:Nguyễn VELA MD Location:[facility] Appointment Type:URO Office Visit [facility] Evaluation + Plan note Future Appointments Appointment Date:08/22/2023 01:40:00 PM Scheduled Provider:Shaquille LILLY MD Location:[facility] Appointment Type:GS Procedure 30 Appointment Date:09/18/2023 12:45:00 PM Scheduled Provider:Nguyễn VELA MD Location:[facility] Appointment Type:URO Office Visit General Surgery [place] Evaluation + Plan note Future Appointments Appointment Date:09/01/2023 01:40:00 PM Scheduled Provider:Shaquille LILLY MD [facility] 15 Appointment Date:09/18/2023 12:45:00 PM Scheduled Provider:Nguyễn VELA MD [facility]O Office Visit General Surgery [place] Evaluation + Plan note Future Appointments Appointment Date:09/13/2023 03:00:00 PM Scheduled Provider:Shaquille LILLY MD [facility] Type: Appointment Date:09/18/2023 12:45:00 PM Scheduled Provider:Nguyễn VELA MD Location:[facility] Appointment Type:URO Office Visit General Surgery [place] Evaluation + Plan note Future Appointments Appointment Date:11/27/2023 11:30:00 AM Scheduled Provider:Nguyễn VELA MD Location:[facility] Appointment Type:URO Office Visit General Surgery [place] Evaluation note No assessment inform ation available [facility] Work Phone: Evaluation note Diagnosis Coronary artery disease involving [place] coronary artery of [place] heart without angina pectoris- Primary Benign essential hypertension Essential hypertension, benign Mixed hyperlipidemia Former cigarette smoker Personal history of tobacco use, presenting hazards to health documented in this encounter [facility] Work Phone: Evaluation note* Diagnosis Cervicalgia- Primary [...] [facility] Diagnosis Type 2 diabetes mellitus without complication, with long-term current use of insulin ([facility])- Primary 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 degeneration of both eyes Age-related nuclear cataract of both eyes Dry eyes Unspecified tear film insufficiency Blepharitis of upper and lower eyelids of both eyes, unspecified type documented [facility] [...] recommended stress testing. He does not believe addison perform a treadmill test and because of [...] will be reviewed at his next visit. [facility] Work Phone: History of Present [...] will be reviewed at his next visit. [facility] [employer] Work Phone: History of Present illness NarrativeCoronaryPatient [...] recommendation and will attempt to implement our recommendations.[facility] [employer] Work Phone: Hospital course Narrative No data available for this section [facility] Hospital Discharge instructions No data available for this section General Surgery [place] Progress note No data available for this section [facility] reason for referral (narrative)* Consultation (Routine) - Authorized Specialty Diagnoses / Procedures Referred By Aimee t Referred To Contact Cardiology Diagnoses Coronary artery disease involving [place] coronary artery of [place] heart without angina pectoris Procedures Follow Up In Cardiology Johnnie Deras MD [address] [facility] [address], [address] [address] Johnnie Deras MD [address] [facility], [address] [place] [address] Referral ID Status Reason Start Date Expiration Date V isits Requested Visits Authorized [id number] Authorized 11/27/2023 11/26/2024 1 1 T [facility] Work Phone: Reason for visit Narrative* Rehabilitation - Outpatient (Routine) - Authorized Specialty Diagnoses / Procedures Referred By Contac t Referred To Contact Physical Therapy Diagnoses Benign neoplasm of cranial nerves (CMS/HCC) Dizziness and giddiness Procedures [place] PHYSICAL THERAPY EVALUATION LOW COMPLEX [place] [address] [place] [address] Phone: tel: Shaquille Gamez, PT [address] [place] [address] Phone: tel: fax: Referral ID Status Reason Start Date Expiration Date V isits Requested Visits Authorized [id number] Authorized 03/06/2024 09/02/2024 25 29 [facility] N[facility]* Rehabilitation - Outpatient (Routine) - Authorized Specialty Diagnoses / Procedures Referred By Contac t Referred To Contact Physical Therapy Diagnoses Benign neoplasm of cranial nerves (CMS/HCC) Dizziness and giddiness Procedures [place] PHYSICAL THERAPY EVALUATION LOW COMPLEX [address] [place] [address] [place] [address] Phone: tel: Shaquille Gamez, PT [address] [place] [address] Phone: tel: fax: Referral ID Status Reason Start Date Expiration Date V isits Requested Visits Authorized [id number] Authorized 03/06/2024 07/09/2024 25 29 [facility] [...] section and content) DATE CREATED AUTHOR 11/30/2021 [facility] DATE CREATED AUTHOR AUTHOR'S ORGANIZ ATION 12/31/2021 [facility] DATE CREATED AUTHOR AUTHOR'S ORGANIZ ATION 01/01/2022 [employer] DATE CREATED AUTHOR AUTHOR'S ORGANIZ ATION 10/29/2022 [facility] DATE CREATED AUTHOR AUTHOR'S ORGANIZ ATION 10/30/2022 [facility] DATE CREATED AUTHOR AUTHOR'S ORGANIZ ATION 04/12/2023 [facility] DATE CREATED AUTHOR AUTHOR'S ORGANIZ ATION 04/14/2023 [facility] DATE CREATED AUTHOR AUTHOR'S ORGANIZ ATION 08/25/2023 [facility] DATE CREATED AUTHOR AUTHOR'S ORGANIZ ATION 11/14/2023 [facility] ical Center DATE CREATED AUTHOR AUTHOR'S ORGANIZ ATION 02/08/2024 [facility] DATE CREATED AUTHOR AUTHOR'S ORGANIZ ATION 06/05/2024 [facility] DATE CREATED AUTHOR AUTHOR'S ORGANIZ ATION 06/28/2024 [facility] EPIC Reason for Visit (unrecogniz ed section and content) Reason Comments Annual Exam 1yr Reason Comments Macular Degeneration Cataract Diabetic Eye Exam Specialty Diagnoses / Procedures Referred By Contac t Referred To Contact Physical Therapy Diagnoses Benign neoplasm of cranial nerves (CMS/HCC) Dizziness and giddiness Procedures [place] PHYSICAL THERAPY EVALUATION LOW COMPLEX [address] [place] [address] [place] [address] Shaquille Gamez, PT [address] [place] [address] Referral ID Status Reason Start Date Expiration Date V isits Requested Visits Authorized [id number] Authorized 03/06/2024 09/02/2024 25 25 Referral ID Status Reason Start Date Expiration Date V isits Requested Visits Authorized [id number] Authorized 03/06/2024 09/02/2024 25 29 Patient Care team informatio n (unrecognized section and content) Team Status: Active Member Role Status Dates Mayra Navarrete MD Primary Care Provider Active Team Status: Inactive Member Role Status Dates Mayra Navarrete MD Primary Care Provider Active Start: August 22, 2023 End: August 22, 2023 Shaquille Lilly MD [facility] Attending Provider Active Start: August 22, 2023 End: August 22, 2023 Aged Or Disabled Care Worker Relationship Specialty Start Date End Date Mayra Navarrete MD [address] [place] [address] PCP - General 12/08/21 Aged Or Disabled Care Worker Relationship Specialty Start Date End Date Mayra Navarrete MD [address] [place] [address] PCP - General Family Medicine 10/20/23 Aged Or Disabled Care Worker Relationship Specialty Start Date End Date Mayra Navarrete MD [address] [facility] [address] PCP - General Family Medicine 10/20/23 Aged Or Disabled Care Worker Relationship Specialty Start Date End Date Mayra Navarrete MD [address] [facility] [address] PCP - General Family Medicine 10/20/23 Aged Or Disabled Care Worker Relationship Specialty Start Date End Date Mayra Navarrete MD [address] [facility] [place] [address] PCP - General Family Medicine 10/20/23 Aged Or Disabled Care Worker Relationship Specialty Start Date End Date Mayra Navarrete MD [address] [facility] [address] PCP - General Family Medicine 10/20/23 Aged Or Disabled Care Worker Relationship Specialty Start Date End Date Mayra Navarrete MD [address] [facility] [address] PCP - General Family Medicine 10/20/23 Goals [...] BE BASED ON THE PRIMARY CLINICAL RECORDS. [employer] [facility]. provides no warranty or guarantee of the accuracy or completeness of information in this document.
--- NOTE | 2024-06-30 15:20 | ED.SKABFB1 ---
HPI - Skin/Abscess/Foreign Bdy General Chief complaint: Skin/Abscess/Foreign Body Stated complaint: MEDICATION REACTION, POSSIBLE SKIN INFECTION Time Seen by Provider: 06/30/24 13:46 Source: patient Mode of arrival: walk-in Limitations: no limitations History of Present Illness HPI narrative: Patient is an 83-year-old male with a history of diabetes who presents to the emergency department for 2-week history of redness across the nasal bridge and top of his scalp, he states that the area has started to get painful with occasional purulent drainage and he is concerned he has an infection. He states he used Floracil topical cream that was prescribed by his application security architect for skin cancer about 2 months ago. He states he thinks he may have a medication reaction although he has not used the cream recently. No fevers or vomiting. No other focal medical complaints Related Data Home Medications ?Medication ?Instructions ?Recorded ?Confirmed amitriptyline 50 mg tablet 25 mg PO BEDTIME 02/28/23 03/05/23 aspirin 81 mg tablet,delayed 81 mg PO BID 02/28/23 03/05/23 release (Bobo Low Dose Aspirin) folic acid 1 mg tablet 1 mg PO DAILY 02/28/23 03/05/23 furosemide 20 mg tablet 10 mg PO QDAY PRN edema 02/28/23 03/05/23 glimepiride 4 mg tablet (Amaryl) 2 mg PO DAILY 02/28/23 03/05/23 irbesartan 300 1 tab PO DAILY 02/28/23 03/05/23 mg-hydrochlorothiazide 12.5 mg tablet melatonin 5 mg tablet 5 mg PO DAILY 02/28/23 03/05/23 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 sodium 2.5 mg tablet 12.5 mg PO .weekly 02/28/23 03/05/23 pantoprazole 40 mg tablet,delayed 40 mg PO DAILY 02/28/23 03/05/23 release prednisone 2.5 mg tablet 5 mg PO QAM 02/28/23 03/05/23 hydrocodone 5 mg-acetaminophen 325 1 tab PO Q6H PRN pain 03/05/23 03/05/23 mg tablet leucovorin calcium 5 mg tablet 5 mg PO DAILY 03/05/23 03/05/23 prednisone 2.5 mg tablet 2.5 mg PO QPM 03/05/23 03/05/23 rosuvastatin 5 mg tablet (Crestor) 5 mg PO DAILY 03/05/23 03/05/23 tizanidine 4 mg capsule 4 mg PO BEDTIME PRN muscle 03/05/23 03/05/23 spasticity Previous Rx's ?Medication ?Instructions ?Recorded diclofenac sodium 75 mg 75 mg PO BID PRN low back pain #20 03/01/23 tablet,delayed release tabs ibuprofen 600 mg tablet 600 mg PO Q6H PRN Moderate Pain 10 03/07/23 days #40 tabs oxycodone-acetaminophen 5 mg-325 1 tab PO Q6H PRN back pain 7 days 03/07/23 mg tablet #28 tabs tizanidine 4 mg tablet 4 mg PO QHS PRN muscle spasticity 03/07/23 7 days #7 tabs cephalexin 500 mg capsule 500 mg PO Q8H 10 days #30 caps 06/30/24 mupirocin 2 % topical ointment 1 applic topical BID #15 grams 06/30/24 Allergies Allergy/AdvReac Type Severity Reaction Status Date / Time PCN AdvReac Intermediate Uncoded 03/01/23 21:47 Review of Systems ROS Constitutional Denies: fever or chills Eyes Denies: change in vision Cardiovascular Denies: chest pain Respiratory Denies: shortness of breath or cough Gastrointestinal Denies: nausea or vomiting Musculoskeletal Denies: back pain Integumentary/Breast Reports: rash, redness and skin pain Neurological Denies: numbness in extremities or weakness in extremities Hematologic/Lymphatic Denies: easy bruising or easy bleeding PFSH [facility] Medical History (Updated 06/30/24 @ 15:18 by EVON Milan) Psoriatic arthritis ?L40.50 - Arthropathic psoriasis, unspecified (ICD-10) Polymyalgia rheumatica ?M35.3 - Polymyalgia rheumatica (ICD-10) IBS (irritable bowel syndrome) ?K58.9 - 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 (ICD-10) Kidney stone ?N20.0 - Calculus of kidney (ICD-10) Rotator cuff arthropathy of left shoulder ?M12.812 - Other specific arthropathies, not elsewhere classified, left shoulder (ICD-10) Intractable back pain ?M54.9 - Dorsalgia, unspecified (ICD-10) Ambulatory dysfunction (02/28/23) ?R26.2 - Difficulty in walking, not elsewhere classified (ICD-10) Hypertension ?I10 - Essential (primary) hypertension (ICD-10) Diabetes ?E11.9 - Type 2 diabetes mellitus without complications (ICD-10) Surgical History H/O colonoscopy ?Z98.890 - Other specified postprocedural states (ICD-10) Family History Father Family history of CHF (congestive heart failure) Family history of cancer Family history of hypertension Family history of myocardial infarction Mother Family history of hypertension Social History Smoking status: Never smoker Second hand tobacco smoke exposure: No Non-prescribed substance use: denies use Previous occupational history: retired Known occupational exposures/hazards: No Highest level of school completed/degree received: high school graduate Do you want help with school or training: No Are you now , , , , never or living with a partner: In a typical week, how many times do you talk on the telephone with family, friends, or neighbors: twice per week How often do you get together with friends or relatives: once per week How often do you attend latter-day or jehovah's witness services: 4 or more times per year Do you belong to any clubs or organizations such as latter-day groups unions, fraternal or athletic groups, or school groups: yes Total score: 4 Score interpretation: A score of greater than or equal to 2 indicates the lowest level of social isolation. Little interest or pleasure in doing things: not at all Feeling down, depressed, or hopeless: not at all Feel stressed/tense/nervous/anxious/difficulty sleeping: not at all Due to disability, difficulty making decisions: No Do you think of yourself as: straight/heterosexual Gender Identity: male Exam Narrative Exam Narrative: Gen.: Awake, alert, in no distress Head: Normocephalic, atraumatic ENT: Moist mucous membranes Respiratory: No respiratory distress Extremities: Moves extremities equally Psych: Normal mood and affect Neuro: No focal neuro deficit Skin: Warm, dry, intact; erythematous rash across the nasal bridge, no active purulence or fluctuance. No pustules, no petechia or purpura. No mucous membrane involvement to the rash. Excoriated rash to the scalp with no drainage or red streaking Constitutional Vital Signs, click to edit/add: Last Vital Signs Temp 97.7 F 06/30/24 13:30 Pulse 83 06/30/24 13:30 Resp 18 06/30/24 13:30 BP 144/83 H 06/30/24 13:30 Pulse Ox 95 06/30/24 13:30 O2 Del Method Room Air 06/30/24 13:30 Course Vital Signs Vital signs: Vital Signs Temperature 97.7 F 06/30/24 13:30 Pulse Rate 83 06/30/24 13:30 Respiratory Rate 18 06/30/24 13:30 Blood Pressure 144/83 H 06/30/24 13:30 Pulse Oximetry 95 06/30/24 13:30 Oxygen Delivery Method Room Air 06/30/24 13:30 Temperature 97.7 F 06/30/24 13:30 Pulse Rate 83 06/30/24 13:30 Respiratory Rate 18 06/30/24 13:30 Blood Pressure 144/83 H 06/30/24 13:30 Pulse Oximetry 95 06/30/24 13:30 Oxygen Delivery Method Room Air 06/30/24 13:30 MDM - Skin/Abscess/Foreign Bdy MDM Narrative Medical decision making narrative: Exam is consistent with a possible staph infection, patient placed on Keflex, Bactroban. Follow-up with application security architect or primary care. Apply warm compresses and return to the ER if symptoms change or worsen. SUPERVISED APC VISIT, PHYSICIAN ATTESTATION: Based on the medical record the care appears appropriate. ? Medical Records Attestation: I reviewed the patient's medical records. Discharge Plan Discharge Chief Complaint: Skin/Abscess/Foreign Body Clinical Impression: Rash, Cellulitis Patient Disposition: Home, Self-Care Time of Disposition Decision: 15:18 Condition: Good Prescriptions / Home Meds: New cephalexin 500 mg capsule 500 mg PO Q8H 10 Days Qty: 30 0RF mupirocin 2 % ointment 1 applic topical BID Qty: 15 0RF No Action furosemide 20 mg tablet 10 mg PO QDAY PRN (Reason: edema) Rx Instructions: on Tuesdays and Fridays irbesartan-hydrochlorothiazide 300-12.5 mg tablet 1 tab PO DAILY 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 sodium 2.5 mg tablet 12.5 mg PO .weekly Patient Comments: takes on monday pantoprazole 40 mg tablet,delayed release (DR/EC) 40 mg PO DAILY prednisone 2.5 mg tablet 5 mg PO QAM amitriptyline 50 mg tablet 25 mg PO BEDTIME aspirin [Bobo Low Dose Aspirin] 81 mg tablet,delayed release (DR/EC) 81 mg PO BID folic acid 1 mg tablet 1 mg PO DAILY glimepiride [Amaryl] 4 mg tablet 2 mg PO DAILY melatonin 5 mg tablet 5 mg PO DAILY diclofenac sodium 75 mg tablet,delayed release (DR/EC) 75 mg PO BID PRN (Reason: low back pain) Qty: 20 0RF hydrocodone-acetaminophen 5-325 mg tablet 1 tab PO Q6H PRN (Reason: pain) prednisone 2.5 mg tablet 2.5 mg PO QPM leucovorin calcium 5 mg tablet 5 mg PO DAILY tizanidine 4 mg capsule 4 mg PO BEDTIME PRN (Reason: muscle spasticity) rosuvastatin [Crestor] 5 mg tablet 5 mg PO DAILY Rx Instructions: On tuesdays and monday tizanidine 4 mg Tablet 4 mg PO QHS PRN (Reason: muscle spasticity) 7 Days Qty: 7 0RF Rx Instructions: ICD10: s32.ooo lumbar compression fracture ibuprofen 600 mg Tablet 600 mg PO Q6H PRN (Reason: Moderate Pain) 10 Days Qty: 40 0RF oxycodone-acetaminophen 5-325 mg Tablet 1 tab PO Q6H PRN (Reason: back pain) 7 Days Qty: 28 0RF Rx Instructions: icd 10: S32.000 Lumbar compression fracture Print Language: Japanese Instructions: Cellulitis (ED), Warm Compress or Soak (ED) Additional Instructions: Follow up with your application security architect Referrals: Roman David MD [Primary Care Provider] - 1 week
== END 2024-06-30 15:23 | disposition home or self-care (01) ==
PROVIDERS: Emergency Provider Emergency Medicine; PCP Family Medicine
DX: L03.211 Cellulitis of face (principal); L03.811 Cellulitis of head [any part, except face]; R21 Rash and other nonspecific skin eruption; E11.9 Type 2 diabetes mellitus without complications
CPT/HCPCS: 99283

== ENCOUNTER 2024-07-19 12:03 | Outpatient (OUT) | payer MEDICARE, OTHER, SELFPAY ==
--- OUTSIDE RECORDS SUMMARY | 2024-07-19 12:15 | XMS_ITS | CCD ---
Author Organization [facility] Care Team Providers Care Lowerator Operator Name Role Phone Mayra Navarrete Unavailable Unavailable [...] Unavailable HOY ., DR NUNEZ Consulting Unavailable DALBO, DR CJ Hernandes Consulting Unavailable HOY ., [...] Care Provider MD Shaquille Lilly Attending Provider [phone] Mayra Navarrete Primary Care Unavailable Shaquille Lilly Attending Unavailable Shaquille Lilly Admitting Unavailable NILVikas, Shaquille Peter Attending Unavailable NILVikas, Shaquille Peter Attending Unavailable NILL, Shaquille Peter Attending Unavailable Nguyễn VELA Attending Unavailable Nguyễn VELA Attending Unavailable MAXX, Shaquille Peter Attending Unavailable Mayra Navarrete Referring Unavailable Mayra Navarrete MD Primary Care Provider [phone] JOHNNIE DERAS Attending Unavailable MAYRA NAVARRETE Primary Care Unavailable LAUREL, LORETA E Attending Unavailable MAYRA NAVARRETE Primary Care Unavailable Mayra Navarrete MD Primary Care Provider [phone] TOO THOMPSON Attending Unavailable LUIS DANIEL BRUNNER Attending Unavailable KRYSTEN, TOO Attending Unavailable KAHLUIS DANIEL LAURENT Referring Unavailable TOO THOMPSON Attending Unavailable LUIS DANIEL BRUNNER Attending Unavailable RADHA MONTES Attending Unavailable YUE GARCIA Attending Unavailable MAYRA NAVARRETE Referring Unavailable TIMMISMEGAN H Attending Unavailable HOMAYRA Morse M Referring Unavailable TIMMISMEGAN H Attending Unavailable RADHA MONTES Attending Unavailable SHAQUILLE VALENCIA Attending Unavailable LAUREL, LORETA Referring Unavailable SHAQUILLE VALENCIA Attending Unavailable LAUREL, LORETA Referring Unavailable ERIKSHAQUILLE Attending Unavailable LAUREL, LORETA Referring Unavailable ERIKSHAQUILLE Attending Unavailable LAUREL, LORETA Referring Unavailable ERIKSHAQUILLE Attending Unavailable LAUREL, LORETA Referring Unavailable DEPKATEY ROLLE Attending Unavailable LAUREL, LORETA Referring Unavailable ERIKSHAQUILLE Attending Unavailable LAUREL, LORETA Referring Unavailable DEPOYKATEY Attending Unavailable LAUREL, LORETA Referring Unavailable PHILIPPE ROUSE Attending Unavailable KATEY SHAIKH Attending Unavailable LAUREL, LORETA Referring Unavailable MOIRA MOY Attending Unavailable LAUREL, LORETA Referring Unavailable TAWANDA FARRAR Attending Unavailable MOIRA MOY Attending Unavailable LAUREL, LORETA Referring Unavailable Allergies Allergy Classification Reported Allergen(s) Allergy Type Date of Onset Reaction(s) Facility (11 sources) bee pollen Allergy to substance (finding) [facility] y 250 DO Work Phone: (20 sources) Penicillins; Translations: [Penicillins] Allergy to drug (finding) 9 Anaphylaxis (disorder) [facility] (11 sources) Animal dander - Cats Allergy to substance (finding) [facility] y 250 DO Work Phone: (1 source) Penicillins Drug allergy (disorder) [facility] (8 sources) Latex; Translations: [Latex] Drug allergy 2 Unknown (qualifier value) [facility] (6 sources) Sulfonamides (Antibiotic); Translations: [sulfa drugs] Propensity to adverse reactions to drug [facility] (5 sources) penciclovir; Translations: [penciclovir] Drug Allergy 1 Anaphylaxis [facility] (3 sources) Sulfonamides (Antibiotic); Translations: [Sulfa (Sulfonamide Antibiotics)] Allergy to substance 9 Anaphylaxis [facility] (1 source) Penicillins Drug allergy (disorder) 9 [facility] (3 sources) Bee pollen; Translations: [BEE POLLEN] Drug Allergy 4 Unknown [facility] Work Phone: (1 source) Penicillins Drug Allergy 2 Anaphylaxis [facility] Work Phone: (3 sources) Cat Dander; Translations: [CAT DANDER] Allergy to substance 4 Unknown [facility] Work Phone: (20 sources) Bee pollen Allergy to substance 4 Unknown [facility] Work Phone: (20 sources) Penicillins Propensity to adverse reactions 4 [facility] Work Phone: (20 sources) Sulfonamides (Antibiotic) Drug Intolerance 4 [facility] (20 sources) Cat Hair Extract Allergy to substance 4 Unknown [facility] Medications Current Medications Medication Drug Class(es) Dates Sig (Normalized) Sig (Original) acetaminophen 500 mg oral tablet (20 sources) take 1 tablet by mouth twice [...] Start: 03-26-2014 take 2 tablets by mo [facility] once daily at bedtime Elavil 25 mg Tab 50 mg = 2 tab(s), Oral, Once a day (at bedtime) Start Date: 03/26/14 Status: [facility] amitriptyline (Elavil) 25 [...] 12:00am Start: 06-13-2016 take 1 capsule by [facility] once daily calcium carbonate-vitamin D3 600 mg-10 mcg (400 unit) capsule Take 1 capsule by mouth once daily. 06/13/2016 Active carvedilol 6.25 mg oral tablet (20 sources) alpha-Adrenergic Sapphire, beta-Adrenergic Sapphire Start: 08-31-2023 take 1 tablet by mouth in the morning carvedilol (Coreg) 6.25 MG tablet Take 6.25 mg by mouth in the morning and 6.25 mg in the evening. Take with meals. 08/31/2023 Active cetirizine hydrochloride 10 mg oral tablet (20 sources) Histamine-1 Receptor Antagonist Start: 09-21-2023 take 1 tablet by mouth once daily cetirizine (ZyrTEC) 10 MG tablet Take 10 mg by mouth Daily 09/21/2023 Active clindamycin 300 mg oral capsule (4 sources) Lincosamide Antibacterial Start: 06-30-2024 take 1 capsule by mouth in the morning, then take 1 capsule by mouth in the evening, then take 1 capsule by mouth at bedtime clindamycin (Cleocin) 300 MG capsule Take 300 mg by mouth in the morning and 300 mg in the evening and 300 mg before bedtime. 06/30/2024 Active Start: 05-30-2024 clindamycin (C lindagel) 1 % gel APPLY TO THE AFFECTED AREA(S) topically TWICE DAILY 05/30/2024 Active doxycycline monohydrate 100 mg oral tablet (20 sources) Tetracycline-class Drug take 1 tablet by mouth in the morning doxycycline (Adoxa) 100 MG tablet Take 100 mg by mouth in the morning and 100 mg before bedtime. Take with a full glass of water and do not lie down for at least 30 minutes after. Active fluorouracil 50 mg/ml topical cream (20 sources) Nucleoside Metabolic Inhibitor Start: 024 fluorouracil (Efudex) 5 % cream Indications: Actinic keratosis Apply to directed areas on the scalp, nose, and left cheek twice a day x 14 days. Dispense 30 day supply but only use for 14 days. 40 g 02/01/2024 Active Folate 1 mg Tab (6 sources) Start: 020 Folate 1 mg Tab Refills(s) 0 Start Date: 08/23/19 Status: Ordered folic acid 1 mg oral tablet (20 sources) Start: 023 take 1 tablet by mouth in the [...] Start Date: 07/14/23 Status: Ordered Start: 03-20-2023 End: 07-11-2024 take 1 tablet by mouth once daily glimepiride 2 mg Tab 2 mg = 1 tab(s), Oral, Daily Start Date: 03/20/23 Status: Ordered take 1 tablet by rasta th once daily at breakfast glimepiride (Amaryl) 4 MG tablet TAKE 1 TABLET BY MOUTH ONCE DAILY WITH BREAKFAST or first meal OF the day Active hydroCHLOROthiazide 12.5 mg / irbesartan 300 mg oral tablet (16 sources) Thiazide Diuretic, Angiotensin 2 Receptor Sapphire Start: 01-25-2022 End: 11-27-2023 take 1 tablet by mouth once daily hydrochlorothiazide-irbesartan 12.5 mg-300 mg Tab 1 tab(s), Oral, Daily, Refill(s) 0 Start Date: 07/14/23 Status: Ordered take 1 tablet by ratsa th once daily Irbesartan-hydroCHLOROthiazide 300-12.5 MG Oral Tablet TAKE 1 TABLET ONCE DAILY. Quantity: 0 Refills: 0 Ordered: 08-Dec-2021 DO Active hydrocortisone 25 mg/ml topical cream (2 sources) Corticosteroid Start: 07-11-2024 hydrocortisone 2.5 % cream Indications: Rash and other nonspecific skin eruption Apply topically 2 (two) times a day as needed (Rash) Apply thin layer to affected areas bid prn for flares 30 g 3 07/11/2024 Active Start: 07-11-2024 hydrocortisone 2.5 % cream Indications: Rash and other nonspecific skin eruption Apply topically 2 (two) times a day as needed (Rash) Apply thin layer to affected areas bid prn for flares 30 g 3 07/11/2024 Active hyoscyamine sulfate 0.125 mg sublingual tablet (20 sources) hyoscyamine (Lev sin) 0.125 MG SL [...] lansoprazole 30 mg delayed release oral capsule (20 sources) Proton Pump Inhibitor Start: 03-17-2022 take [...] Status: Ordered take 2 tablets by mo uth once daily metFORMIN HCl - 500 MG [...] Start: 11-21-2022 take 4 tablets by mo ut every week 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 (Trexall) 2.5 mg tablet [...] 28-Dec-2021 DO Active [facility] Methotrexate Sodium 2.5 MG Oral Tablet TAKE 1 TABLET WEEKLY. Quantity: 0 Refills: 0 Ordered: 08-Dec-2021 DO Active montelukast 10 mg oral tablet (20 sources) Leukotriene Receptor Antagonist Start: 09-21-2023 take 1 tablet by mouth at bedtime montelukast (Singulair) 10 MG tablet Take 10 mg by mouth at bedtime 09/21/2023 Active mupirocin 0.02 mg/mg topical ointment (2 sources) RNA Synthetase Inhibitor Antibacterial Start: 06-30-2024 mupirocin (Bactroban) 2 % ointment Apply 1 application topically in the morning and 1 application before bedtime. 06/30/2024 Active 24 hr oxybutynin chloride 5 mg extended release oral tablet (5 sources) Cholinergic Muscarinic Antagonist Start: 03-20-2023 take 1 tablet by mouth at bedtime oxybutynin 5 mg ER Tab 5 mg = 1 tab(s), Oral, Bedtime, # 30 tab(s), Refills(s) 8, Pharmacy: [facility]/pharmacy #[id number], 175, cm, 03/20/23 14:33:00 EDT, Height/Length [...] 2.5 mg oral tablet (20 sources) Start: 01-09-2024 take 2 tablets by mouth once daily [...] week. Active tiZANidine 4 mg oral tablet (20 sources) Central alpha-2 Adrenergic Agonist Start: 03-20-2023 take 1 tablet by mouth every eight hours tiZANidine 4 mg Tab 4 mg = 1 tab(s), Oral, q8hr Start Date: 03/20/23 Status: Ordered Start: 03-12-2023 tiZANidine (Za naflex) 4 MG tablet Take 2 mg by mouth as needed at bedtime 03/12/2023 Active vitamin b12 1 mg oral tablet (20 sources) Vitamin B12 Start: 05-30-2019 take 3 [...] cardiac arrhythmias] Onset: 4 07-14-2023 Chronic Cataract (20 sources) Bilateral age-related nuclear cataracts; Translations: [Age-related nuclear cataract, bilateral] Onset: 3 01-30-2023 Chronic Chronic kidney disease (20 sources) Chronic kidney disease stage 3; Translations: [...] 4 Chronic Other and unspecified benign neoplasm (20 sources) Acoustic neuroma; Translations: [Benign neoplasm of [...] ear and sense organ disorders (20 sources) Sensorineural hearing loss, bilateral; Translations: [Sensorineural [...] 07-14-2023 Chronic Other inflammatory condition of skin (20 sources) Psoriasis vulgaris; 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] Onset: [...] 4 07-14-2023 Chronic Other nervous system disorders (20 sources) Carpal tunnel syndrome; Translations: [Carpal tunnel syndrome, unspecified upper limb] Onset: 4 12-21-2023 Chronic Other non-traumatic joint disorders (20 sources) Polyarthropathy; Translations: [Polyarthritis, unspecified] Onset: 2 12-21-2023 Chronic Other nutritional; endocrine; and metabolic disorders (17 sources) Obesity; Translations: [Obesity, unspecified] 03-26-2014 Chronic Other nutritional; endocrine; and metabolic disorders (6 sources) Body mass index 30+ - obesity 12-01-2020 Chronic Other skin disorders (2 sources) Eruption; Translations: [Rash and other nonspecific skin eruption] 07-11-2024 Episodic Residual codes; unclassified (20 sources) Sleep apnea; Translations: [Unspecified sleep apnea] Onset: 4 07-14-2023 Chronic Residual codes; unclassified (1 source) Encounter for procedure for purposes other than remedying health state, unspecified; Translations: [Encounter for procedure for purposes other than remedying health state, unspecified] Onset: 3 Episodic Retinal detachments; defects; vascular occlusion; and retinopathy (20 sources) Nonexudative age-related macular degeneration; Translations: [Nonexudative age-related macular degeneration, bilateral, early dry stage] Onset: 3 01-30-2023 Chronic Spondylosis; intervertebral disc disorders; other back problems (20 sources) Degeneration of cervical intervertebral disc; Translations: [Other cervical disc degeneration, unspecified cervical region] Onset: 4 12-21-2023 Chronic Unclassified (1 source) Drug therapy finding 08-23-2019 Unclassified (1 source) 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; Translations: [prison [...] Episodic Conditions associated with dizziness or vertigo (20 sources) Dizziness; Translations: [Dizziness and giddiness] Onset: 08-24-2023 08-24-2023 Episodic Genitourinary symptoms and ill-defined conditions (20 sources) Urgent desire to urinate; Translations: [Urgency of urination] Onset: 03-20-2023 Episodic Headache; including migraine (20 sources) Migraine; Translations: [Migraine, unspecified, not intractable, without status migrainosus] Onset: 08-16-2023 Resolved: 12-21-2023 07-14-2023 Chronic Inflammation; infection of eye (except that caused by tuberculosis or sexually transmitteddisease) (20 sources) Blepharitis of upper and lower eyelids of bilateral eyes; Translations: [Unspecified blepharitis right eye, upper and lower eyelids] Onset: 01-30-2023 01-30-2023 Episodic Inflammatory conditions of male genital organs (20 sources) Prostatitis; Translations: [Inflammatory disease of prostate, unspecified] Onset: 08-16-2023 08-21-2019 Episodic Malaise and fatigue (20 sources) Fatigue; Translations: [Other malaise and fatigue] Onset: 10-25-2022 Episodic Mycoses (20 sources) Superficial mycosis; Translations: [Superficial mycosis, unspecified] [...] Onset: 08-16-2023 07-14-2023 Episodic Other acquired deformities (20 sources) Spondylolysis; Translations: [Spondylolysis, site unspecified] Onset: 05-21-2022 12-21-2023 Episodic Other aftercare (20 sources) 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; 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: [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] Onset: 05-27-2022 12-21-2023 Episodic Other diseases of kidney and ureters (2 sources) Disorder of kidney and ureter, unspecified; Translations: [Disorder of kidney and ureter, unspecified] Onset: 08-16-2023 Episodic Other ear and sense organ disorders (20 sources) Sudden idiopathic hearing loss; Translations: [Sudden idiopathic hearing loss, right ear] Onset: 12-27-2023 12-27-2023 Episodic Other eye disorders (20 sources) Dry eyes; Translations: [Dry eye syndrome [...] 08-24-2023 08-24-2023 Episodic Other nervous system disorders (20 sources) Impairment of balance; Translations: [Other abnormalities of gait and mobility] Onset: 03-06-2024 04-21-2024 Episodic Other nervous system disorders (20 sources) Notalgia paresthetica; 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] [...] antigen [PSA]] Onset: 06-20-2022 Episodic Pathological fracture (20 sources) Age-related osteoporosis with current pathological fracture, vertebra(e), initial encounter for fracture; Translations: [Pathological fracture of vertebra due to osteoporosis] Onset: 04-05-2023 12-21-2023 Episodic Screening and history of mental health and substance abuse codes (20 sources) Ex-smoker; Translations: [Personal history of tobacco use] Onset: 08-16-2023 Resolved: 12-21-2023 08-23-2019 Episodic Comment on above: Quit: 1991; Spondylosis; intervertebral disc disorders; other back problems (20 sources) Neck pain; Translations: [Cervicalgia] Onset: 08-16-2023 04-21-2024 Episodic Substance-related disorders (20 sources) 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; Translations: [Other psychoactive substance use, unspecified, uncomplicated] Onset: 10-11-2023 12-21-2023 Episodic Unclassified (1 source) Onset: 11-27-2023 11-27-2023 Unclassified (1 source) 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; Translations: [prison (current) use of antimetabolite agent] Onset: 08-17-2023 Results Test Name Value Interpretation Reference Range Facil ity Optical coherence tomography study reporton 06-25-2024 [facility] Study observation (narrative) [facility] 36on 06-03-2024 36 Last Visit: 02/15/24 Upcoming Visit: 09/11/23 [facility] Refillon 06-02-2024 Refill [id number] Travis Coburn 1940 M Date Provider Department Center 06/02/2024 LUIS DANIEL HAYNES C RHEUM [facility] No family history on file Reason for Visit and Comments: Med Refill [[id number]] [facility] Follow-Upon 04-17-2024 Follow-Up [id number] Travis Coburn 1940 M Date Provider Department Center 04/17/2024 [id number] [facility] NEPHRO Comprehensiv No family history on file Level of Service:[id number] MD OFFICE/OUTPATIENT ESTABLISHED MOD MDM 30 MIN Reason for Visit and Comments: Follow-up [[id number]] [facility] ALBUMINon 04-04-2024 Albumin [Mass/Vol] 4.2 g/dL Normal 3.5-5.7 [facility] Comment on above: Performed By: #### L [id number] #### [facility] ([facility]) [address] [place] [address] BASIC METABOLIC PANELon -2 Anion gap [Moles/Vol] 7 mmol/L Normal 7-20 [facility] Comment on above: Performed By: #### L [id number] #### [facility] [address] [place] [address] Calcium [Mass/Vol] 9.5 mg/dL Normal 8.6-10.3 [facility] Comment on above: Performed By: #### L [id number] #### [facility] [address] [place] [address] Chloride [Moles/Vol] 102 mmol/L Normal 98-107 [facility] Comment on above: Performed By: #### L [id number] #### [facility] ([facility] [address] [place] [address] CO2 [Moles/Vol] 31 mmol/L Normal 21-31 [facility] Comment on above: Performed By: #### L [id number] #### [facility] ([facility]) [address] [place] [address] Creatinine [Mass/Vol] 1.10 mg/dL Normal 0.70-1.30 [facility] Comment on above: Performed By: #### L [id number] #### [facility] ([facility]) [address] [place] [address] GLOMERULAR FILTRATION RATE ML/MIN/1.73 SQ M.PREDICTED 67.0 mL/min/1.73m*2 Normal >60.0 [facility] Comment on above: Result Comment: [facility]???s estimated glomerular filtration rate (eGFR) will [...] [id number] #### [facility] ([facility]) [address] [place] [address] Glucose [Mass/Vol] 87 mg/dL Normal 70-100 [facility] Comment on above: Performed By: #### L [id number] #### [facility] ([facility]) [address] [place] [address] Potassium [Moles/Vol] 4.0 mmol/L Normal 3.5-5.1 [facility] Comment on above: Performed By: #### L [id number] #### [facility] ([facility]) [address] [place] [address] Sodium [Moles/Vol] 136 mmol/L Normal 136-145 [facility] Comment on above: Performed By: #### L [id number] #### [facility] ([facility]) [address] [place] [address] Urea nitrogen [Mass/Vol] 18 mg/dL Normal 7-25 [facility] Comment on above: Performed By: #### L [id number] #### [facility] ([facility]) [address] [place] [address] UREA NITROGEN/CREATININ E (MASS RATIO) IN SER/PLAS 16.4 Normal [facility] Comment on above: Performed By: #### L [id number] #### [facility] ([facility]) [address] [place] [address] CREATININE, URINE, RANDOMon 04-04-2024 Creatinine (U) [Mass/Vol] 91.0 mg/dL Normal 26-299 [facility] Comment on above: Performed By: #### L [id number] #### [facility] ([facility]) [address] [place] [address] HEMOGLOBINon 04-04-2024 Hemoglobin (Bld) [Mass/Vol] 14.5 g/dL Normal 13.0-17.0 [facility] Comment on above: Performed By: #### L [id number] #### [facility] ([facility]) [address] [place] [address] MAGNESIUMon 04-04-2024 Magnesium [Mass/Vol] 1.7 mg/dL Low 1.9-2.7 [facility] Comment on above: Performed By: #### L [id number] #### [facility] ([facility]) [address] [place] [address] PHOSPHORUSon 04-04-2024 Magnesium [Mass/Vol] 2.5 mg/dL Normal 2.5-5.0 [facility] Comment on above: Performed By: #### L [id number] ####[facility] ([facility])[address] [place] [address] PROTEIN, URINE, RANDOMon Protein (U) [Mass/Vol] 6.0 mg/dL Normal [facility] Comment on above: Result Comment: Ther e are no established reference values for random urine specimens. Performed By: #### L [id number] #### [facility] ([facility]) [address] [place] [address] CBC WITH AUTO DIFFERENTIALon 02-15-2024 Basophils (Bld) [#/Vol] 0.04 10*3/uL Normal 0.00-0.20 [facility] Comment on above: Performed By: #### L [id number] #### [facility] ([facility]) [address] [place] [address] Basophils/100 WBC (Bld) 0.5 % Normal 0.0-1.0 [facility] Comment on above: Performed By: #### L [id number] #### [facility] ([facility]) [address] [place] [address] Eosinophils (Bld) [#/Vol] 0.13 10*3/uL Normal 0.00-0.50 [facility] Comment on above: Performed By: #### L [id number] #### [facility] ([facility]) [address] [place] [address] Eosinophils/100 WBC (Bld) 1.7 % Normal 0.0-6.0 [facility] Comment on above: Performed By: #### L [id number] #### [facility] ([facility]) [address] [place] [address] Erythrocyte distribution width (RBC) [Ratio] 13.8 % Normal 11.5-15.0 [facility] Comment on above: Performed By: #### L [id number] #### [facility] ([facility] [address] [place] [address] ERYTHROCYTE MEAN CORPUSCULAR HEMOGLOBIN CONCENTRATION (G/DL) BY AUTOMATED 33.0 g/dL Normal 32.0-35.0 [facility] Comment on above: Performed By: #### L [id number] #### [facility] ([facility]) [address] [place] [address] Hematocrit (Bld) [Volume fraction] 44.0 % Normal 39.0-55.0 [facility] Comment on above: Performed By: #### L [id number] #### [facility] ([facility]) [address] [place] [address] Hemoglobin (Bld) [Mass/Vol] 14.5 g/dL Normal 13.0-17.0 [facility] Comment on above: Performed By: #### L [id number] #### [facility] ([facility]) [address] [place] [address] Immature granulocytes (Bld) [#/Vol] 0.04 10*3/uL Normal 0.00-0.20 [facility] Comment on above: Performed By: #### L [id number] #### [facility] ([facility]) [address] [place] [address] Immature granulocytes/100 WBC (Bld) 0.5 % Normal 0.0-1.0 [facility] Comment on above: Performed By: #### L [id number] #### [facility] ([facility]) [address] [place] [address] Lymphocytes (Bld) [#/Vol] 1.89 10*3/uL Normal 1.20-4.00 [facility] Comment on above: Performed By: #### L [id number] #### [facility] ([facility] [address] [place] [address] Lymphocytes/100 WBC (Bld) 24.9 % Normal 20.0-45.0 [facility] Comment on above: Performed By: #### L [id number] #### [facility] ([facility]) [address] [facility] [place] [address] MCH (RBC) [Entitic mass] 32.1 pg Normal 27.0-33.0 [facility] Comment on above: Performed By: #### L [id number] #### [facility] ([facility] [address] [facility] [place] [address] MCV (RBC) [Entitic vol] 97.3 fL Normal 82.0-98.0 [facility] Comment on above: Performed By: #### L [id number] #### [facility] ([facility]) [address] [place] [address] Monocytes (Bld) [#/Vol] 0.59 10*3/uL Normal 0.10-1.00 [facility] Comment on above: Performed By: #### L [id number] #### [facility] ([facility]) [address] [place] [address] Monocytes/100 WBC (Bld) 7.8 % Normal 5.0-12.0 [facility] Comment on above: Performed By: #### L [id number] #### [facility] (BEAKER) [address] [facility] [place] [address] Neutrophils (Bld) [#/Vol] 4.91 10*3/uL Normal 1.60-7.60 [facility] Comment on above: Performed By: #### L [id number] #### [facility] (BEAKER) [address] [facility] [address] Neutrophils/100 WBC (Bld) 64.6 % Normal 40.0-72.0 [facility] Comment on above: Performed By: #### L [id number] #### [facility] ([facility]) [address] [place] [address] NRBC (PER 100 WBCS) BY AUTOMATED COUNT 0.0 % Normal 0 [facility] Comment on above: Performed By: #### L [id number] #### [facility] ([facility]) [address] [place] [address] PLATELETS (10*3/UL) IN BLOOD AUTOMATED COUNT 187 10*3/uL Normal 150-400 [facility] Comment on above: Performed By: #### L [id number] #### [facility] ([facility]) [address] [place] [address] RBC (Bld) [#/Vol] 4.52 10*6/uL Normal 4.20-5.70 [facility] Comment on above: Performed By: #### L [id number] #### [facility] ([facility]) [address] [place] [address] WBC (Bld) [#/Vol] 7.60 10*3/uL Normal 4.00-10.60 [facility] Comment on above: Performed By: #### L [id number] #### [facility] ([facility]) [address] [place] [address] COMPREHENSIVE METABOLIC PANE [place] 02-15-2024 Albumin [Mass/Vol] 4.0 g/dL Normal 3.5-5.7 [facility] Comment on above: Performed By: #### L [id number] ####[facility] ([facility])[address] [place] [address] ALP [Catalytic activity/Vol] 90 U/L Normal 34-104 [facility] Comment on above: Performed By: #### L [id number] ####[facility] ([facility])[address] [place] [address] ALT [Catalytic activity/Vol] 19 U/L Normal 7-52 [facility] Comment on above: Performed By: #### L [id number] ####[facility] (BEAKER)[address] [place] [address] Anion gap [Moles/Vol] 10 mmol/L Normal 7-20 [facility] Comment on above: Performed By: #### L [id number] ####[facility] (BEAKER)[address] [place] [address] AST [Catalytic activity/Vol] 17 U/L Normal 13-39 [facility] Comment on above: Performed By: #### L [id number] ####[facility] (BEAKER)[address] [place] [address] Bilirubin [Mass/Vol] 0.8 mg/dL Normal 0.3-1.0 [facility] Comment on above: Performed By: #### L [id number] ####[facility] (BEAKER)[address] [place] [address] Calcium [Mass/Vol] 9.2 mg/dL Normal 8.6-10.3 [facility] Comment on above: Performed By: #### L [id number] ####[facility] (BEAKER)[address] [place] [address] Chloride [Moles/Vol] 103 mmol/L Normal 98-107 [facility] Comment on above: Performed By: #### L [id number] ####[facility] (BEAKER)[address] [place] [address] CO2 [Moles/Vol] 27 mmol/L Normal 21-31 [facility] Comment on above: Performed By: #### L [id number] ####[facility] (BEAKER)[address] [place] [address] Creatinine [Mass/Vol] 1.08 mg/dL Normal 0.70-1.30 [facility] Comment on above: Performed By: #### L [id number] ####[facility] (BEAKER)[address] [place] [address] GLOMERULAR FILTRATION RATE ML/MIN/1.73 SQ M.PREDICTED 68.5 mL/min/1.73m*2 Normal >60.0 [facility] Comment on above: Result Comment: [facility]???s estimated glomerular filtration rate (eGFR) will [...] L [id number] ####[facility] ([facility])[address] [place] [address] Glucose [Mass/Vol] 107 mg/dL High 70-100 [facility] Comment on above: Performed By: #### L [id number] ####[facility] ([facility])[address] [place] [address] Potassium [Moles/Vol] 3.7 mmol/L Normal 3.5-5.1 [facility] Comment on above: Performed By: #### L [id number] ####[facility] ([facility])[address] [place] [address] Protein [Mass/Vol] 6.7 g/dL Normal 6.0-8.3 [facility] Comment on above: Performed By: #### L [id number] ####[facility] ([facility])[address] [place] [address] Sodium [Moles/Vol] 136 mmol/L Normal 136-145 [facility] Comment on above: Performed By: #### L [id number] ####[facility] ([facility])[address] [place] [address] Urea nitrogen [Mass/Vol] 17 mg/dL Normal 7-25 [facility] Comment on above: Performed By: #### L [id number] ####[facility] ([facility])[address] [place] [address] UREA NITROGEN/CREATININ E (MASS RATIO) IN SER/PLAS 15.7 [facility] Comment on above: Performed By: #### L [id number] ####[facility] (JOELLE)[address] [place] [address] Follow-Upon 02-15-2024 Follow-Up [id number] Travis Coburn 1940 Provider Department Center 02/15/2024 LUIS DANIEL HAYNES [facility]UM Eloise Heal No family history on file Level of Service:18726 MD OFFICE/OUTPATIENT ESTABLISHED MOD MDM 30 MIN () Reason for Visit and Comments: Follow-up [881069] - 6 month follow up [facility] Orders Onlyon 02-15-2024 Orders Only [id number] Travis Coburn 1940 Provider Department Center 02/15/2024 JOON VAZQUEZ [facility]UM Eloise Heal No family history on file [facility] 36on 11-28-2023 36 Last visit: 08/17/23 Next visit: 02/15/24 CBC/CMP: 10/02/23 [facility] 36 RHC patient [facility] 36 Pt called to make sure that you will fill his Methotrexate. [facility] Refillon 11-28-2023 Refill [id number] Travis Coburn 1940 Provider Department Center 11/28/2023 LUIS DANIEL HAYNES [facility] RHEUM SDCF No family history on file Reason for Visit and Comments: Med Refill [[id number]] [facility] 36on 10-16-2023 36 Last visit: 08/17/23 Next visit: 02/15/24 CBC/CMP: 10/02/23 [facility] Refillon 10-14-2023 Refill [id number] Travis Coburn 1940 Provider Department Center 10/14/2023 LUIS DANIEL HAYNES [facility] Eloise Heal No family history on file Reason for Visit and Comments: Med Refill [[id number]] [facility] Follow-Upon 10-11-2023 Follow-Up [id number] Travis Coburn 1940 M Date Provider Department Center 10/11/2023 TOO BLOCK [facility] NEPHRO Comprehensiv No family history on file Level of Service:44039 MD OFFICE/OUTPATIENT ESTABLISHED LOW MDM 20 MIN (GC) Reason for Visit and Comments: Follow-up [389091] Chronic Kidney Disease [176] Normal [facility] CBCon 10-02-2023 Erythrocyte distribution width (RBC) [Ratio] 14.0 % Normal 11.5-15.0 [facility] Comment on above: Performed By: #### L [id number] ####[facility] ([facility])[address] [facility] [address] ERYTHROCYTE MEAN CORPUSCULAR HEMOGLOBIN CONCENTRATION (G/DL) BY AUTOMATED 33.3 g/dL Normal 32.0-35.0 [facility] Comment on above: Performed By: #### L [id number] ####[facility] (BEJumblets)[address] [facility] [address] Hematocrit (Bld) [Volume fraction] 44.4 % Normal 39.0-55.0 [facility] Comment on above: Performed By: #### L [id number] ####[facility] (BEAKER)[address] [place] [address] Hemoglobin (Bld) [Mass/Vol] 14.8 g/dL Normal 13.0-17.0 [facility] Comment on above: Performed By: #### L [id number] ####[facility] (BEAKER)[address] [place] [place] [address] MCH (RBC) [Entitic mass] 31.9 pg Normal 27.0-33.0 [facility] Comment on above: Performed By: #### L [id number] ####[facility] (BEAKER)[address] [place] [address] MCV (RBC) [Entitic vol] 95.7 fL Normal 82.0-98.0 [facility] Comment on above: Performed By: #### L [id number] ####[facility] ([facility])[address] [place] [address] PLATELETS (10*3/UL) IN BLOOD AUTOMATED COUNT 189 10*3/uL Normal 150-400 [facility] Comment on above: Performed By: #### L [id number] ####[facility] ([facility])[address] [place] [address] RBC (Bld) [#/Vol] 4.64 10*6/uL Normal 4.20-5.70 [facility] Comment on above: Performed By: #### L [id number] ####[facility] ([facility])[address] [place] [address] WBC (Bld) [#/Vol] 8.52 10*3/uL Normal 4.00-10.60 [facility] Comment on above: Performed By: #### L [id number] ####[facility] ([facility])[address] [place] [address] COMPREHENSIVE METABOLIC PANE [place] 10-02-2023 Albumin [Mass/Vol] 4.3 g/dL Normal 3.5-5.7 [facility] Comment on above: Performed By: #### L [id number] #### [facility] ([facility]) [address] [place] [address] ALP [Catalytic activity/Vol] 102 U/L Normal 34-104 [facility] Comment on above: Performed By: #### L [id number] #### [facility] ([facility]) [address] [place] [address] ALT [Catalytic activity/Vol] 16 U/L Normal 7-52 [facility] Comment on above: Performed By: #### L [id number] #### [facility] ([facility]) [address] [place] [address] Anion gap [Moles/Vol] 11 mmol/L Normal 7-20 [facility] Comment on above: Performed By: #### L [id number] #### [facility] ([facility]) [address] [place] [address] AST [Catalytic activity/Vol] 18 U/L Normal 13-39 [facility] Comment on above: Performed By: #### L [id number] #### [facility] (BEAKER) [address] [place] [address] Bilirubin [Mass/Vol] 0.6 mg/dL Normal 0.3-1.0 [facility] Comment on above: Performed By: #### L [id number] #### [facility] [address] [place] [address] Calcium [Mass/Vol] 9.5 mg/dL Normal 8.6-10.3 [facility] Comment on above: Performed By: #### L [id number] #### [facility] (BEAKER) [address] [place] [address] Chloride [Moles/Vol] 102 mmol/L Normal 98-107 [facility] Comment on above: Performed By: #### L [id number] #### [facility] (BEAKER) [address] [place] [address] CO2 [Moles/Vol] 28 mmol/L Normal 21-31 [facility] Comment on above: Performed By: #### L [id number] #### [facility] (BEAKER) [address] [place] [address] Creatinine [Mass/Vol] 1.13 mg/dL Normal 0.70-1.30 [facility] Comment on above: Performed By: #### L [id number] #### [facility] ([facility] [address] [place] [address] GLOMERULAR FILTRATION RATE ML/MIN/1.73 SQ M.PREDICTED 65.3 mL/min/1.73m*2 Normal >60.0 [facility] Comment on above: Result Comment: [facility]???s estimated glomerular filtration rate (eGFR) will [...] AB17 #### [facility] ([facility]) [address] [place] [address] Glucose [Mass/Vol] 140 mg/dL High 70-100 [facility] Comment on above: Performed By: #### L [id number] #### [facility] ([facility]) [address] [place] [address] Potassium [Moles/Vol] 3.9 mmol/L Normal 3.5-5.1 [facility] Comment on above: Performed By: #### L [id number] #### [facility] ([facility]) [address] [place] [address] Protein [Mass/Vol] 7.2 g/dL Normal 6.0-8.3 [facility] Comment on above: Performed By: #### L [id number] #### [facility] ([facility]) [address] [place] [address] Sodium [Moles/Vol] 137 mmol/L Normal 136-145 [facility] Comment on above: Performed By: #### L [id number] #### [facility] ([facility]) [address] [place] [address] Urea nitrogen [Mass/Vol] 15 mg/dL Normal 7-25 [facility] Comment on above: Performed By: #### L [id number] #### [facility] ([facility]) [address] [place] [address] UREA NITROGEN/CREATININ E (MASS RATIO) IN SER/PLAS 13.3 Normal [facility] Comment on above: Performed By: #### L [id number] #### [facility] ([facility]) [address] [place] [address] CREATININE, URINE, RANDOMon 10-02-2023 Creatinine (U) [Mass/Vol] 58.0 mg/dL Normal 26-299 [facility] Comment on above: Performed By: #### L [id number] #### [facility] ([facility]) [address] [place] [address] Labon 10-02-2023 Lab [id number] Travis Coburn 1940 M Date Provider Department Josephine 10/02/20232241-[facility] RESOURCE [facility] Comprehensiv No family history on file Normal [facility] MAGNESIUMon 10-02-2023 Magnesium [Mass/Vol] 1.8 mg/dL Low 1.9-2.7 [facility] Comment on above: Performed By: #### L [id number] #### [facility] ([facility]) [address] [place] [address] PHOSPHORUSon 10-02-2023 Magnesium [Mass/Vol] 2.7 mg/dL Normal 2.5-5.0 [facility] Comment on above: Performed By: #### L [id number] #### [facility] ([facility]) [address] [place] [address] PROTEIN, URINE, RANDOMon Protein (U) [Mass/Vol] 5.6 mg/dL Normal [facility] Comment on above: Result Comment: Ther e are no established reference values for random urine specimens. Performed By: #### L [id number] #### [facility] ([facility]) [address] [place] [address] URINALYSIS WITH MICROSCOPICo n 10-02-2023 BILIRUBIN, TOTAL PRESENCE IN URINE Negative Normal Negative [facility] Comment on above: Order Comment: 00 00 Performed By: #### L [id number] #### [facility] ([facility]) [address] [place] [address] Clarity (U) Clear Normal Clear [facility] Comment on above: Order Comment: 00 00 Performed By: #### L [id number] #### [facility] ([facility]) [address] [place] [address] Color (U) Yellow Normal Yellow, Dark Yellow, Straw [facility] Comment on above: Order Comment: 00 00 Performed By: #### L [id number] #### [facility] ([facility] [address] [place] [address] Glucose (U) [Mass/Vol] Negative Normal Negative [facility] Comment on above: Order Comment: 00 00 Performed By: #### L [id number] #### [facility] ([facility]) [address] [place] [address] HEMOGLOBIN PRESENCE IN URINE Negative Normal Negative [facility] Comment on above: Order Comment: 00 00 Performed By: #### L [id number] #### [facility] ([facility]) [address] [place] [address] Ketones Ql (U) Negative Normal Negative [facility] Comment on above: Order Comment: 00 00 Performed By: #### L [id number] #### [facility] ([facility]) [address] [place] [address] LEUKOCYTE ESTERASE PRESENCE IN URINE BY TEST STRIP Negative Normal Negative [facility] Comment on above: Order Comment: 00 00 Performed By: #### L [id number] #### [facility] ([facility]) [address] [place] [address] NITRITE PRESENCE IN URINE Negative Normal Negative [facility] Comment on above: Order Comment: 00 00 Performed By: #### L [id number] #### [facility] ([facility]) [address] [place] [address] pH (U) 6.0 [pH] Normal 5.0-8.0 [facility] Comment on above: Order Comment: 00 00 Performed By: #### L [id number] #### [facility] ([facility]) [address] [place] [address] Protein (U) [Mass/Vol] Negative Normal Negative [facility] Comment on above: Order Comment: 00 00 Performed By: #### L [id number] #### [facility] ([facility]) [address] [place] [address] RBC (#/HPF) IN URINE SEDIMENT 0-2 Abnormal None Seen [facility] Comment on above: Order Comment: 00 00 Performed By: #### L [id number] #### [facility] ([facility] [address] [place] [address] Specific gravity (U) [Rel density] <=1.005 Low 1.015-1.020 [facility] Comment on above: Order Comment: 00 00 Performed By: #### L [id number] #### [facility] ([facility]) [address] [place] [address] SQUAMOUS EPITHELIAL CELLS (#/HPF) IN URINE SEDIMENT Occasional Normal None Seen, Occasional [facility] Comment on above: Order Comment: 00 00 Performed By: #### L [id number] #### [facility] [address] [place] [address] WBC (LEUKOCYTE) (#/HPF) IN URINE SEDIMENT 0-2 Abnormal None Seen [facility] Comment on above: Order Comment: 00 00 Performed By: #### L [id number] #### [facility] ([facility] [address] [place] [address] VITAMIN D 25 HYDROXYon 10-01 CALCIDIOL (25 [place] VITAMIN D3) (NG/ML) IN SER/PLAS 16.1 ng/mL Low 30.0-80.0 [facility] Comment on above: Result Comment: >80. 0 Toxicity possible Performed By: #### L [id number] #### [facility] ([facility]) [address] [place] [address] Ambulatory Visit Summaryon 0 09-13-2023 Ambulatory Visit [...] TURNER, Nguyễn Peter Where: [facility] General Surgery Office/Clini c Noteon [...] influenza virus vaccine, inactivated 07/26/2022 Recorded SARSCoV2 mRNA(uahuzgvkv-avap-f ucros) vac 11/17/2021 Recorded SARS-CoV-2 (COVID-19) mRNA [...] virus vaccine, inactivated 05/22/2014 Recorded Normal [facility] Comment on above: Result Comment: [...] TURNER, Nguyễn Peter Where: [facility] General Surgery Office/Clini c Noteon 09-01-2023 General [...] influenza virus vaccine, inactivated 07/26/2022 Recorded SARSCoV2 mRNA(tsrtqtpez-yrxg-u ucros) vac 11/17/2021 Recorded SARS-CoV-2 (COVID-19) mRNA BNT-162b2 vax 05/20/2021 Recorded 2023-03-20: TPV75 SARS-CoV-2 (COVID-19) mRNA BNT-162b2 vax 11/17/2020 Recorded SARS-CoV-2 (COVID-19) mRNA BNT-162b2 vax 10/29/2020 Recorded 2023-03-20: TPV75 SARS-CoV-2 (COVID-19) mRNA BNT-162b2 vax 10/27/2020 Recorded SARS-CoV-2 (COVID-19) mRNA BNT-162b2 vax 10/06/2020 Recorded 2023-03-20: TPV75 influenza virus vaccine, in (more content not included)... Normal [facility] Comment on above: Result Comment: Elec tronically Signed By: MAXX TURNER, Shaquille Peter\.br\Date and Time Signed: 09/01/23 14:34 EST Pathology Noteon 08-28-2023 Pathology Note [id number] [facility] Ambulatory Visit Summaryon 0 08-22-2023 Ambulatory Visit [...] TURNER, Nguyễn Peter Where: [facility] Lydia Normal [facility] General Surgery Office/Clini c Noteon 08-22-2023 General [...] influenza virus vaccine, inactivated 07/26/2022 Recorded SARSCoV2 mRNA(jakxmidhu-jcyr-m ucros) vac 11/17/2021 Recorded SARS-CoV-2 (COVID-19) mRNA BNT-162b2 vax 05/20/2021 Recorded 2023-03-20: TPV75 SARS-CoV-2 (COVID-19) mRNA BNT-162b2 vax 11/17/2020 Recorded SARS-CoV-2 (COVID-19) mRNA BNT-162b2 vax 10/29/2020 Recorded 2023-03-20: TPV75 SARS-CoV (more content not included)... Normal [facility] Comment on above: Result Comment: Elec tronically Signed By: MAXX TURNER, Shaquille Burgosbr\Date and Time Signed: 08/22/23 14:34 EST [place] 08-22-2023 L Specimen: [id number] Received: 08/23/23 Status: JUAN LUIS Carty Num: [id number] Spec Type: Surgical Subm Dr: Shaquille Lilly MD FACS Tissues: A Skin-Other than Cyst, tag, debridement or plastic repair (RT POST CALF) Procedures: HE/3, Gross/Micro L4 Age/ Patient Sex Location Account Attending Physician Travis Coburn 82/M LABELL [id number] Shaquille Lilly MD FACS SPEC NUM: [id number] RECD: 08/23/23 STATUS: JUAN LUIS CARTY NUM: [id number] APRIL: 08/22/23- SUBM DR: Shaquille Lilly MD FACS ENTERED: 08/23/[address] [facility] [address]: Lydia,Lab SPEC TYPE: Surgical DEPT: NICOLA TENA ENTERED BY: [id number] RECV BY: [id number] ORDERED: HE/3, Gross/Micro L4 ORDERED: HE/3, Gross/Micro [...] - Tips A2-A3 - Remainder CPT Codes 34981 -------- -------- Specimen: [id number] Received: 08/23/23 Status: JUAN LUIS Carty Num: [id number] Spec Type: Surgical Subm Dr: Shaquille Lilly MD FACS Tissues: A Skin-Other than Cyst, tag, debridement or plastic repair (RT POST CALF) Procedures: HE/3, Gross/Micro L4 -------- Patient: Travis Coburn [id number] (Continued) -------- Signed (signature on file) Joon Bermudez MD 08/24/23 2207 Normal [facility] CBC WITH AUTO DIFFERENTIALon 08-17-2023 Basophils (Bld) [#/Vol] 0.04 10*3/uL Normal 0.00-0.20 [facility] Comment on above: Performed By: #### L [id number] #### [facility] (BEAKER) [address] [place] [address] Basophils/100 WBC (Bld) 0.6 % Normal 0.0-1.0 [facility] Comment on above: Performed By: #### L [id number] #### [facility] (BEAKER) [address] [place] [address] Eosinophils (Bld) [#/Vol] 0.12 10*3/uL Normal 0.00-0.50 [facility] Comment on above: Performed By: #### L [id number] #### [facility] (BEAKER) [address] [place] [address] Eosinophils/100 WBC (Bld) 1.8 % Normal 0.0-6.0 [facility] Comment on above: Performed By: #### L [id number] #### [facility] (BEAKER) [address] [place] [address] Erythrocyte distribution width (RBC) [Ratio] 13.9 % Normal 11.5-15.0 [facility] Comment on above: Performed By: #### L [id number] #### [facility] (BEAKER) [address] [place] [address] ERYTHROCYTE MEAN CORPUSCULAR HEMOGLOBIN CONCENTRATION (G/DL) BY AUTOMATED 34.0 g/dL Normal 32.0-35.0 [facility] Comment on above: Performed By: #### L [id number] #### [facility] ([facility] [address] [place] [address] Hematocrit (Bld) [Volume fraction] 42.0 % Normal 39.0-55.0 [facility] Comment on above: Performed By: #### L [id number] #### [facility] ([facility]) [address] [facility] [place] [address] Hemoglobin (Bld) [Mass/Vol] 14.3 g/dL Normal 13.0-17.0 [facility] Comment on above: Performed By: #### L [id number] #### [facility] ([facility]) [address] [place] [address] Immature granulocytes (Bld) [#/Vol] 0.04 10*3/uL Normal 0.00-0.20 [facility] Comment on above: Performed By: #### L [id number] #### [facility] ([facility]) [address] [facility] [place] [address] Immature granulocytes/100 WBC (Bld) 0.6 % Normal 0.0-1.0 [facility] Comment on above: Performed By: #### L [id number] #### [facility] ([facility] [address] [place] [address] Lymphocytes (Bld) [#/Vol] 1.67 10*3/uL Normal 1.20-4.00 [facility] Comment on above: Performed By: #### L [id number] #### [facility] (BEAKER) [address] [facility] [place] [address] Lymphocytes/100 WBC (Bld) 25.6 % Normal 20.0-45.0 [facility] Comment on above: Performed By: #### L [id number] #### [facility] (BEAKER) [address] [facility] [place] [address] MCH (RBC) [Entitic mass] 31.9 pg Normal 27.0-33.0 [facility] Comment on above: Performed By: #### L [id number] #### [facility] ([facility]) [address] [place] [address] MCV (RBC) [Entitic vol] 93.8 fL Normal 82.0-98.0 [facility] Comment on above: Performed By: #### L [id number] #### [facility] [facility] ([facility]) [address] [place] [address] Monocytes (Bld) [#/Vol] 0.49 10*3/uL Normal 0.10-1.00 [facility] Comment on above: Performed By: #### L [id number] #### [facility] ([facility]) [address] [place] [address] Monocytes/100 WBC (Bld) 7.5 % Normal 5.0-12.0 [facility] Comment on above: Performed By: #### L [id number] #### [facility] ([facility]) [address] [place] [address] Neutrophils (Bld) [#/Vol] 4.17 10*3/uL Normal 1.60-7.60 [facility] Comment on above: Performed By: #### L [id number] #### [facility] ([facility]) [address] [place] [address] Neutrophils/100 WBC (Bld) 63.9 % Normal 40.0-72.0 [facility] Comment on above: Performed By: #### L [id number] #### [facility] ([facility]) [address] [place] [address] NRBC (PER 100 WBCS) BY AUTOMATED COUNT 0.0 % Normal 0 [facility] Comment on above: Performed By: #### L [id number] #### [facility] ([facility]) [address] [place] [address] PLATELETS (10*3/UL) IN BLOOD AUTOMATED COUNT 186 10*3/uL Normal 150-400 [facility] Comment on above: Performed By: #### L [id number] #### [facility] ([facility]) [address] [place] [address] RBC (Bld) [#/Vol] 4.48 10*6/uL Normal 4.20-5.70 [facility] Comment on above: Performed By: #### L [id number] #### [facility] ([facility]) [address] [place] [address] WBC (Bld) [#/Vol] 6.53 10*3/uL Normal 4.00-10.60 [facility] Comment on above: Performed By: #### L [id number] #### [facility] ([facility]) [address] [place] [address] COMPREHENSIVE METABOLIC PANE [place] 08-17-2023 Albumin [Mass/Vol] 4.0 g/dL Normal 3.5-5.7 [facility] Comment on above: Performed By: #### L [id number] #### [facility] ([facility]) [address] [place] [address] ALP [Catalytic activity/Vol] 98 U/L Normal 34-104 [facility] Comment on above: Performed By: #### L [id number] #### [facility] ([facility]) [address] [place] [address] ALT [Catalytic activity/Vol] 25 U/L Normal 7-52 [facility] Comment on above: Performed By: #### L [id number] #### [facility] ([facility]) [address] [place] [address] Anion gap [Moles/Vol] 12 mmol/L Normal 7-20 [facility] Comment on above: Performed By: #### L [id number] #### [facility] ([facility]) [address] [place] [address] AST [Catalytic activity/Vol] 19 U/L Normal 13-39 [facility] Comment on above: Performed By: #### L [id number] #### [facility] ([facility]) [address] [place] [address] Bilirubin [Mass/Vol] 0.5 mg/dL Normal 0.3-1.0 [facility] Comment on above: Performed By: #### L [id number] #### [facility] ([facility]) [address] [place] [address] Calcium [Mass/Vol] 8.8 mg/dL Normal 8.6-10.3 [facility] Comment on above: Performed By: #### L [id number] #### [facility] ([facility]) [address] [place] [address] Chloride [Moles/Vol] 102 mmol/L Normal 98-107 [facility] Comment on above: Performed By: #### L [id number] #### [facility] ([facility]) [address] [place] [address] CO2 [Moles/Vol] 27 mmol/L Normal 21-31 [facility] Comment on above: Performed By: #### L [id number] #### [facility] ([facility]) [address] [place] [address] Creatinine [Mass/Vol] 1.12 mg/dL Normal 0.70-1.30 [facility] Comment on above: Performed By: #### L [id number] #### [facility] ([facility]) [address] [place] [address] GLOMERULAR FILTRATION RATE ML/MIN/1.73 SQ M.PREDICTED 66.0 mL/min/1.73m*2 Normal >60.0 [facility] Comment on above: Result Comment: [facility]???s estimated glomerular filtration rate (eGFR) will [...] AB17 #### [facility] ([facility]) [address] [place] [address] Glucose [Mass/Vol] 95 mg/dL Normal 70-100 [facility] Comment on above: Performed By: #### L AB17 #### [facility] ([facility]) [address] [place] [address] Potassium [Moles/Vol] 3.7 mmol/L Normal 3.5-5.1 [facility] Comment on above: Performed By: #### L AB17 #### [facility] ([facility]) [address] [place] [address] Protein [Mass/Vol] 6.6 g/dL Normal 6.0-8.3 [facility] Comment on above: Performed By: #### L [id number] #### [facility] ([facility]) [address] [place] [address] Sodium [Moles/Vol] 137 mmol/L Normal 136-145 [facility] Comment on above: Performed By: #### L AB17 #### [facility] ([facility]) [address] [place] [address] Urea nitrogen [Mass/Vol] 16 mg/dL Normal 7-25 [facility] Comment on above: Performed By: #### L [id number] #### [facility] ([facility]) [address] [place] [address] UREA NITROGEN/CREATININ E (MASS RATIO) IN SER/PLAS 14.3 Normal [facility] Comment on above: Performed By: #### L AB17 #### [facility] ([facility]) [address] [place] [address] Follow-Upon 08-17-2023 Follow-Up [id number] Travis Coburn 1940 M Date Provider Department Center 08/17/2023 LUIS DANIEL HAYNES C RHEUM [facility] No family history on file Level of Service:98613 MD OFFICE/OUTPATIENT ESTABLISHED MOD MDM 30 MIN Reason for Visit and Comments: Follow-up [316721] - 6 mo follow up Normal [facility] Orders Onlyon 08-17-2023 Orders Only [id number] Travis Coburn 1940 M Date Provider Department Center 08/17/2023 [facility]UM [facility] No family history on file Normal [facility] Office Visiton 08-16-2023 Follow-up visit [id number] Travis Coburn 1940 M Date Provider Department Center 08/16/2023 Annalisa[facility] NEPHRO Comprehensiv No family history on file Level of Service:85919 MD OFFICE/OUTPATIENT NEW MODERATE MDM 45 MINUTES (GC) Reason for Visit and Comments: New Patient [632] [facility] Ambulatory Visit Summaryon 0 07-18-2023 Ambulatory Visit Summary TRAVIS COBURN :1940 Visit Date:07/18/2023 Ambulatory Visit Instructions Your Care Team Attending Physician - MAXX TURNER, Shaquille Petre Primary Care Physician - Landon TURNER, Mayra [...] Shaquille LILLY MD Where: General Surgery Maxx/Deisy Lydia Normal [address] [place] [address]- \.br\ Medications\.br\ What How Much When Instructions\.br\ [...] for choosing us for your care.\.br\ \.br\ [facility] Physician Referralon 024 Physician Referral .[phone] [id number] [facility] Physician Referral [phone] [id number] [facility] 36on 12-05-2023 36 New order faxed to [facility] Also Options explained to Patient, who expressed understanding Normal [facility] 36 Pt called (very anxious) to let you know that the Nephrology office can not see him until 08/01/23. Normal [facility] Orders Onlyon 06-13-2023 Orders Only [id number] Travis Coburn 1940 M Date Provider Department Center 06/13/2023 317-IVORYMANGO LAURENTSUKHDEV M SDCF RHEUM SDCF No family history on file Normal [facility] Telephoneon 06-13-2023 Telephone [id number] Travis Coburn 1940 M Date Provider Department Center 06/13/2023 853-[facility] No family history on file [facility] 36on 06-09-2023 36 Could you please shayla l patient Normal [facility] Orders Onlyon 06-09-2023 Orders Only [id number] Travis Coburn 1940 M Date Provider Department Center 06/09/2023 [facility] No family history on file [facility] FLUORO FOR SURGICAL PROCEDUR ESon 04-05-2023 FLUORO FOR SURGICAL PROCEDURES RADRPT Radiology exam is complete. No Radiologist dictation. Please follow up with ordering provider. Final result Normal [facility] SURGICALon 04-05-2023 SURGICAL [facility] TRAVIS COBURN [id number] Assoc. Page 1 of [address] [place] [address] PROC: 04/05/20[address] [facility] RECV: 04/06/[address] RPTD: 04/07/2023 [place] [address] LOC: NAT ACCT: [id number] SEX: M : 1940 AGE: 82 Y [...] developed and its performance characteristics determined by [facility]. It has not been cleared or approved by the U.S. Food and Drug Administration. Pursuant to the requirements of CLIA, this laboratory has established and verified the test's accuracy and precision. Additional information about this type of test is available upon request. [id number] REJI FITZGERALD M.D., F.C.A.P. 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 Page 1 of 1\X0D0A\[address]\X0D0A\[place] [address]\X0D0A\ PROC: 04/05/2023\X0D0A\[facility] RECV: 04/06/2023\X0D0A\[address] RPTD: 04/07/2023\X0D0A\[place] [address]\X0D0A\ LOC: WYA\X0D0A\ ACCT: [id number] SEX: M\X0D0A\ : 1940 AGE: 82 Y\X0D0A\X0D0A\ [...] was developed and its performance characteristics determined\X0D0A\by [facility]. It has not been cleared or\X0D0A\approved by the U.S. Food and Drug Administration. Pursuant to the\X0D0A\requirements of CLIA, this laboratory has established and verified the\X0D0A\test's accuracy and precision. Additional information about this type\X0D0A\of test is available upon request.\X0D0A\X0D0A\18013\X0D0A\94159\X0D0A\76485\X0D0A\X0D0A\X 0D0A\ \X0D0A\ REJI FITZGERALD M.D., F.C.A.P.\X0D0A\X0D0A\X0D0A\[facility]/ [facility] Printed on: 04/07/2023\X0D0A\[address]\X0D0A\[place], [place] [address]\X0D0A\Original print date: 04/07/2023 Performed By: #### 1 [id number] #### [facility] See Report Ambulatory Visit Summaryon 0 03-20-2023 Ambulatory Visit Summary TRAVIS COBURN Vicky :1940 Visit Date:03/20/2023 Ambulatory Visit Instructions Your Diagnosis Nocturia Urinary urgency BPH with urinary obstruction History of kidney stones Impotence Tests Performed Urnls Dip Stick Auto w/o Microscopy POC 12090 Your Care Team Attending Physician - MIRIAN [...] TURNER, Nguyễn Peter Where: [facility] Patient Educationon 03-20-20 Patient Education [...] Follow these instructions at home: ? Take wkfp-mrl-reiomns and prescription medicines only as told by [...] the medicine (more content not included)... Normal 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 Reports he has [...] 20mg PRN. Follow-up With When Contact Information Nguyễn VELA MD, NASEEM In 6 months [facility] [address], [place] [address]- [phone] Additional Instructions: Patient Education Benign Prostatic Hyperplasia IJackeline, personally scribed for Dr. Vela on 03/20/2023 15:38:16. . Documentation recorded by the ericaibJackeline bassett, accurately reflects the services(s) I performed [...] data Procedure/ (more content not included)... Normal [facility] Comment on above: Result Comment: Elec tronically Signed By: Nguyễn VELA MD\.br\Date and Time Signed: 03/20/23 15:41 EDT\.br\Electronically Co-Signed By: Jackeline Graff\.br\Date and Time Co-Signed: 03/20/23 15:38 EDT INSULINon 10-26-2022 Insulin 34.8 uIU/mL Critically high 2.6-24.9 [facility] Comment on above: Performed By: #### C BC #### [facility] [address] [address] [address] Layla Barrera CBC AUTO DIFFon 10-25-2022 BASO # 0.0 103/ul Normal 0.0-0.1 [facility] Comment on above: Performed By: #### C BC #### [facility] [address] [place] [address] Dr. Layla Barrear Basophils/100 WBC (Bld) 0.6 % Normal 0.2-2.0 [facility] Comment on above: Performed By: #### C BC #### [facility] [address] [place] [address] Dr. Layal Barrera EO # 0.3 103/ul Normal 0.0-0.7 [facility] Comment on above: Performed By: #### C BC #### [facility] [address] [address] [address] Layla Barrera Eosinophils/100 WBC (Bld) 4.2 % Normal 0.9-7.0 [facility] Comment on above: Performed By: #### C BC #### [facility] [address] [place] [address] Dr. Layla Barrera Erythrocyte distribution width (RBC) [Ratio] 13.6 % Normal 11.0-15.0 [facility] Comment on above: Performed By: #### C BC #### [facility] [address] [place] [address] Dr. Layla Barrera Hematocrit (Bld) [Volume fraction] 42.6 % Normal 42.0-54.0 [facility] Comment on above: Performed By: #### C BC #### [facility] [address] [place] [address] Dr. Layla Barrera Hemoglobin (Bld) [Mass/Vol] 14.7 g/dL Normal 14.0-18.0 [facility] Comment on above: Performed By: #### C BC #### [facility] [address] [place] [address] Dr. Layla Barrera IG # 0.02 10e3/ul Normal 0.00-0.03 [facility] Comment on above: Performed By: #### C BC #### [facility] [address] [place] [address] Dr. Layla Barrera IG % 0.3 % Normal 0.0-0.5 [facility] Comment on above: Performed By: #### C BC #### [facility] [address] [place] [address] Dr. Layla Barrera LYMPH # 2.1 103/ul Normal 1.2-3.8 [facility] Comment on above: Performed By: #### C BC #### [facility] [address] [place] [address] Dr. Layla Barrera Lymphocytes/100 WBC (Bld) 30.1 % Normal 20.5-60.0 [facility] Comment on above: Performed By: #### C BC #### [facility] [address] [place] [address] Dr. Layla Barrera MANUAL DIFF REQ NO Normal [facility] Comment on above: Performed By: #### C BC #### [facility] [address] [place] [address] Dr. Layla Barrera MCH (RBC) [Entitic mass] 32.1 pg Normal 25.9-34.0 [facility] Comment on above: Performed By: #### C BC #### [facility] [address] [place] [address] Dr. Layla Barrera MCHC (RBC) [Mass/Vol] 34.5 g/dL Normal 29.9-35.2 [facility] Comment on above: Performed By: #### C BC #### [facility] [address] [place] [address] Dr. Layla Barrera MCV (RBC) [Entitic vol] 93.0 fL Normal 80.0-94.0 [facility] Comment on above: Performed By: #### C BC #### [facility] [address] [address] [address] Layla Barrera MONO # 0.6 103/ul Normal 0.3-0.8 [facility] Comment on above: Performed By: #### C BC #### [facility] [address] [address] [address] Layla Barrera Monocytes/100 WBC (Bld) 8.5 % Normal 1.7-12.0 [facility] Comment on above: Performed By: #### C BC #### [facility] [address] [place] [address] Dr. Layla Barrera NEUT # 3.9 103/ul Normal 1.4-6.5 [facility] Comment on above: Performed By: #### C BC #### [facility] [address] [place] [address] Dr. Layla Barrera Neutrophils/100 WBC (Bld) 56.3 % Normal 43.0-75.0 [facility] Comment on above: Performed By: #### C BC #### [facility] [address] [place] [address] Dr. Layla Barrera Platelet mean volume (Bld) [Entitic vol] 10.6 fL Normal 9.5-13.5 [facility] Comment on above: Performed By: #### C BC #### [facility] [address] [place] [address] Dr. Layla Barrera PLT 168 103/ul Normal 150-450 [facility] Comment on above: Performed By: #### C BC #### [facility] [address] [place] [address] Dr. Layla Barrera RBC 4.58 106/ul Critically low 4.70-6.10 [facility] Comment on above: Performed By: #### C BC #### [facility] [address] [place] [address] Dr. Layla Barrear WBC 7.0 103/ul Normal 4.0-11.0 [facility] Comment on above: Performed By: #### C BC #### [facility] [address] [place] [address] Dr. Layla Barrera FREE THYROXINE INDEX T7on FTI 2.21 Normal 1.30-4.50 [facility] Comment on above: Performed By: #### C BC #### [facility] [address] [address] [address] Layla Barrera T3U 33.0 % Normal 33.0-40.0 [facility] Comment on above: Performed By: #### C BC #### [facility] [address] [address] [address] Layla Barrera T4 [Mass/Vol] 6.70 ug/dL Normal 4.50-12.10 [facility] Comment on above: Performed By: #### C BC #### [facility] [address] [address] [address] Layla Barrera GLYCOHEMOGLOBIN A1Con 2022 ADA RECOMMENDATION SEE BELOW Normal [facility] Comment on above: Result Comment: ADA RECOMMENDED LIMIT 4.0 - 6.0 ADA THERAPEUTIC TARGET < 7.0 ACTION SUGGESTED > 7.0 Performed By: #### G IPANEL #### [facility] [address] [address] [address] Layla Barrera Glucose [Mass/Vol] 146 mg/dL Normal [facility] Comment on above: Performed By: #### G IPANEL #### [facility] [address] [address] [address] Layla Barrera HbA1c (Bld) [Mass fraction] 6.7 % Critically high 4.5-6.2 [facility] Comment on above: Performed By: #### G IPANEL #### [facility] [address] [address] [address] Layla Barrera IRONon 10-25-2022 Iron [Mass/Vol] 82.0 ug/dL Normal 65.0-175.0 [facility] Comment on above: Performed By: #### I SHANIQUA VITKENNY, VITB12 #### [facility] [address] [address] [address] Layla Barrera LIPID PROFILEon 10-25-2022 CHOL-HDL RATIO NORM SEE BELOW Normal [facility] Comment on above: Result Comment: 3.3 - 4.4 LOW RISK 4.4 - 7.1 AVERAGE RISK 7.1 - 11.0 MODERATE RISK >11.0 HIGH RISK Performed By: #### C BC #### [facility] [address] [address] [address] Layla Barrera Cholesterol [Mass/Vol] 201 mg/dL Critically high <=200 [facility] Comment on above: Performed By: #### C BC #### [facility] [address] [address] [address] Layla Barrera Cholesterol in HDL [Mass/Vol] 46 mg/dL Normal 40-60 [facility] Comment on above: Performed By: #### C BC #### [facility] [address] [place] [address] Dr. Layla Barrera Cholesterol in LDL [Mass/Vol] 133.4 mg/dL Normal [facility] Comment on above: Performed By: #### C BC #### [facility] [address] [address] [address] Layla Barrera Cholesterol.total/ Cholesterol in HDL [Mass ratio] 4.4 {ratio} Normal [facility] Comment on above: Performed By: #### C BC #### [facility] [address] [place] [address] Dr. Layla Barrera HDL NORMAL > or = 60 mg/dl - LO W CARDIOVASCULAR RISK <40 mg/dl - HIGH CARDIOVASCULAR RISK Normal [facility] Comment on above: Performed By: #### C BC #### [facility] [address] [address] [address] Layla Barrera LDL CALC NORMAL SEE BELOW Normal [facility] Comment on above: Result Comment: <100 mg/dl OPTIMAL 100 - 129 mg/dl NEAR OR ABOVE OPTIMAL 130 - 159 mg/dl BORDERLINE HIGH 160 - 189 mg/dl HIGH >190 mg/dl VERY HIGH Performed By: #### C BC #### [facility] [address] [place] [address] Dr. Layla Barrera Triglyceride [Mass/Vol] 108 mg/dL Normal <=150 [facility] Comment on above: Performed By: #### C BC #### [facility] [address] [place] [address] Dr. Layla Barrera VLDL CALC 21.6 mg/dL Normal [facility] Comment on above: Performed By: #### C BC #### [facility] [address] [place] [address] Dr. Layla Barrera PROF 14(COMP METB)on 023 Albumin [Mass/Vol] 3.6 g/dL Normal 3.4-5.0 [facility] Comment on above: Performed By: #### C BC #### [facility] [address] [place] [address] Dr. Layla Barrera Albumin/Globulin [Mass ratio] 1.0 {ratio} Normal [facility] Comment on above: Performed By: #### C BC #### [facility] [address] [place] [address] Dr. Layla Barrera ALP [Catalytic activity/Vol] 101 U/L Normal 46-116 [facility] Comment on above: Performed By: #### C BC #### [facility] [address] [place] [address] Dr. Layla Barrera ALT [Catalytic activity/Vol] 42 U/L Normal 16-63 [facility] Comment on above: Performed By: #### C BC #### [facility] [address] [place] [address] Dr. Layla Barrera Anion gap [Moles/Vol] 12.8 mmol/L Normal [facility] Comment on above: Performed By: #### C BC #### [facility] [address] [place] [address] Dr. Layla Barrera AST [Catalytic activity/Vol] 26 U/L Normal 15-37 [facility] Comment on above: Performed By: #### C BC #### [facility] [address] [place] [address] Dr. Layla Barrera Bilirubin [Mass/Vol] 0.7 mg/dL Normal 0.2-1.0 [facility] Comment on above: Performed By: #### C BC #### [facility] [address] [address] [address] Layla Barrera Calcium [Mass/Vol] 8.9 mg/dL Normal 8.5-10.1 [facility] Comment on above: Performed By: #### C BC #### [facility] [address] [place] [address] Dr. Layla Barrera Chloride [Moles/Vol] 103 mmol/L Normal 98-107 [facility] Comment on above: Performed By: #### C BC #### [facility] [address] [place] [address] Dr. Layla Barrera CO2 [Moles/Vol] 26.3 mmol/L Normal 21.0-32.0 [facility] Comment on above: Performed By: #### C BC #### [facility] [address] [place] [address] Dr. Layla Barrera Creatinine [Mass/Vol] 1.24 mg/dL Normal 0.70-1.30 [facility] Comment on above: Performed By: #### C BC #### [facility] [address] [place] [address] Dr. Layla Barrera EGFR-AF FIJIAN >60 Normal >=60 [facility] Comment on above: Performed By: #### C BC #### [facility] [address] [place] [address] Dr. Layla Barrera EGFR-NON AF FIJIAN 56 mL/min/1.73m2 Critically low >=60 [facility] Comment on above: Performed By: #### C BC #### [facility] [address] [place] [address] Dr. Layla Barrera Globulin (S) [Mass/Vol] 3.5 g/dL Normal [facility] Comment on above: Performed By: #### C BC #### [facility] [address] [place] [address] Dr. Layla Barrera Glucose [Mass/Vol] 147 mg/dL Critically high 74-106 [facility] Comment on above: Performed By: #### C BC #### [facility] [address] [place] [address] Dr. Layla Barrera Potassium [Moles/Vol] 4.1 mmol/L Normal 3.5-5.1 [facility] Comment on above: Performed By: #### C BC #### [facility] [address] [place] [address] Dr. Layla Barrera Protein [Mass/Vol] 7.1 g/dL Normal 6.4-8.2 [facility] Comment on above: Performed By: #### C BC #### [facility] [address] [place] [address] Dr. Layla Barrera Sodium [Moles/Vol] 138 mmol/L Normal 136-145 [facility] Comment on above: Performed By: #### C BC #### [facility] [address] [place] [address] Dr. Layla Barrera Urea nitrogen [Mass/Vol] 18.0 mg/dL Normal 7.0-18.0 [facility] Comment on above: Performed By: #### C BC #### [facility] [address] [place] [address] Dr. Layla Barrera Urea nitrogen/Creatinin e [Mass ratio] 14.5 mg/mg Normal [facility] Comment on above: Performed By: #### C BC #### [facility] [address] [place] [address] Dr. Layla Barrera TSHon 10-25-2022 TSH 2.495 uIU/mL Normal 0.358-3.740 [facility] Comment on above: Performed By: #### C BC #### [facility] [address] [place] [address] Dr. Layla Barrera URIC ACID SERUMon 10-25-2022 Urate [Mass/Vol] 8.1 mg/dL Critically high 3.5-7.2 [facility] Comment on above: Performed By: #### C BC #### [facility] [address] [place] [address] Dr. Layla Barrera VITAMIN B12on 10-25-2022 Cobalamin (Vitamin B12) [Mass/Vol] 689.0 pg/mL Normal 193.0-986.0 [facility] Comment on above: Performed By: #### I SHANIQUA, VITAD, VITB12 #### [facility] [address] [address] [address] Layla Barrera VITAMIN D 25 OHon 10-25-2022 VIT D 25-OH 17.0 ng/mL Normal [facility] Comment on above: Performed By: #### I SHANIQUA, VITAD, VITB12 #### [facility] [id number] Layla Barrera VIT D RANGES SEE BELOW Normal [facility] Comment on above: Result Comment: <20 ng/mL Vit D deficient 20 - <30 ng/mL Vit D insufficient 30 - 100 ng/mL Vit D sufficient >100 ng/mL Potential Toxicity Performed By: #### I SHANIQUA VITAD, VITB12 #### [facility] [address] [address] [address] Layla Barrera PSA, FREE AND TOTAL RATIOon 06-22-2022 % Free PSA 49.9 % Normal [facility] Comment on above: Result Comment: The table [...] men. Performed By: #### P SAFREE #### [facility] [address] [place], [place] [id number] Dr. Layla Barrera Prostate specific Ag [Mass/Vol] 6.8 ng/mL Critically high 0.0-4.0 [facility] Comment on above: Result Comment: Nikki CARTER methodology. . According to the [place] [employer], Serum PSA should decrease and [...] disease. Performed By: #### P SAFREE #### [facility] [address] [place] [address] Dr. Layla Barrera PSA, Free 3.39 ng/mL Normal N/A [facility] Comment on above: Result Comment: Nikki bassett ECLIA methodology. Performed By: #### P SAFREE #### [facility] [address] [place] [address] Dr. Layla Barrera H PYLORI ANTIBODY IGGon H. PYLORI IGG ABS 0.96 Index Value Critically high 0.00-0. 79 [facility] Comment on above: Result Comment: Nega tive <0.80 Equivocal 0.80 - 0.89 Positive >0.89 Performed By: #### C BC #### [facility] [address] [place] [address] Dr. Layla Barrera INSULINon 03-12-2022 Insulin 38.7 uIU/mL Critically high 2.6-24.9 [facility] Comment on above: Performed By: #### G IPANEL #### [facility] [address] [place] [address] Dr. Layla Barrera AMYLASEon 03-11-2022 Amylase [Catalytic activity/Vol] 54 U/L Normal 25-115 [facility] Comment on above: Performed By: #### G IPANEL #### [facility] [address] [place] [address] Dr. Layla Barrera CBC AUTO DIFFon 03-11-2022 BASO # 0.1 103/ul Normal 0.0-0.1 [facility] Comment on above: Performed By: #### C BC #### [facility] [address] [place] [address] Dr. Layla Barrera Basophils/100 WBC (Bld) 0.7 % Normal 0.2-2.0 [facility] Comment on above: Performed By: #### C BC #### [facility] [address] [place] [address] Dr. Layla Barrera EO # 0.3 103/ul Normal 0.0-0.7 [facility] Comment on above: Performed By: #### C BC #### [facility] [address] [place] [address] Dr. Layla Barrera Eosinophils/100 WBC (Bld) 3.6 % Normal 0.9-7.0 [facility] Comment on above: Performed By: #### C BC #### [facility] [address] [place] [address] Dr. Layla Barrera Erythrocyte distribution width (RBC) [Ratio] 13.2 % Normal 11.0-15.0 [facility] Comment on above: Performed By: #### C BC #### [facility] [address] [place] [address] Dr. Layla Barrera Hematocrit (Bld) [Volume fraction] 43.0 % Normal 42.0-54.0 [facility] Comment on above: Performed By: #### C BC #### [facility] [address] [place] [address] Dr. Layla Barrera Hemoglobin (Bld) [Mass/Vol] 14.6 g/dL Normal 14.0-18.0 [facility] Comment on above: Performed By: #### C BC #### [facility] [address] [place] [address] Dr. Layla Barrera IG # 0.03 10e3/ul Normal 0.00-0.03 [facility] Comment on above: Performed By: #### C BC #### [facility] [address] [place] [address] Dr. Layla Barrera IG % 0.4 % Normal 0.0-0.5 [facility] Comment on above: Performed By: #### C BC #### [facility] [address] [place] [address] Dr. Layla Barrera LYMPH # 3.0 103/ul Normal 1.2-3.8 [facility] Comment on above: Performed By: #### C BC #### [facility] [address] [place] [address] Dr. Layla Barrera Lymphocytes/100 WBC (Bld) 41.2 % Normal 20.5-60.0 [facility] Comment on above: Performed By: #### C BC #### [facility] [address] [place] [address] Dr. Layla Barrera MANUAL DIFF REQ NO Normal [facility] Comment on above: Performed By: #### C BC #### [facility] [address] [place] [address] Dr. Layla Barrera MCH (RBC) [Entitic mass] 31.8 pg Normal 25.9-34.0 [facility] Comment on above: Performed By: #### C BC #### [facility] [address] [place] [address] Dr. Layla Barrera MCHC (RBC) [Mass/Vol] 34.0 g/dL Normal 29.9-35.2 [facility] Comment on above: Performed By: #### C BC #### [facility] [address] [place] [address] Dr. Layla Barrera MCV (RBC) [Entitic vol] 93.7 fL Normal 80.0-94.0 [facility] Comment on above: Performed By: #### C BC #### [facility] [address] [place] [address] Dr. Layla Barrera MONO # 0.6 103/ul Normal 0.3-0.8 [facility] Comment on above: Performed By: #### C BC #### [facility] [address] [place] [address] Dr. Layla Barrera Monocytes/100 WBC (Bld) 7.9 % Normal 1.7-12.0 [facility] Comment on above: Performed By: #### C BC #### [facility] [address] [place] [address] Dr. Layla Barrera NEUT # 3.3 103/ul Normal 1.4-6.5 [facility] Comment on above: Performed By: #### C BC #### [facility] [address] [place] [address] Dr. Layla Barrera Neutrophils/100 WBC (Bld) 46.2 % Normal 43.0-75.0 [facility] Comment on above: Performed By: #### C BC #### [facility] [address] [address] [address] Layla Barrera Platelet mean volume (Bld) [Entitic vol] 11.1 fL Normal 9.5-13.5 [facility] Comment on above: Performed By: #### C BC #### [facility] [address] [address] [address] Layla Barrera PLT 171 103/ul Normal 150-450 [facility] Comment on above: Performed By: #### C BC #### [facility] [address] [address] [address] Layla Barrera RBC 4.59 106/ul Critically low 4.70-6.10 [facility] Comment on above: Performed By: #### C BC #### [facility] [address] [address] [address] Layla Barrera WBC 7.2 103/ul Normal 4.0-11.0 [facility] Comment on above: Performed By: #### C BC #### [facility] [address] [address] [address] ABD/PELV W CONon [...] CJ MELTON Date: 2022-03-11 10:08 Normal [facility] GI PANEL (PCR)on 03-11-2022 Adenovirus F 40/41 Not detected Normal NOT DETECTED [facility] Comment on above: Performed By: #### G IPANEL #### [facility] [address] [place] [address] Dr. Layla Barrera Astrovirus Not detected Normal NOT DETECTED [facility] Comment on above: Performed By: #### G IPANEL #### [facility] [address] [place] [address] Dr. Layla Barrera C. Diff toxin A/B Not detected Normal NOT DETECTED [facility] Comment on above: Performed By: #### G IPANEL #### [facility] [address] [address] [address] Layla Barrera Campylobacter Not detected Normal NOT DETECTED [facility] Comment on above: Performed By: #### G IPANEL #### [facility] [address] [place] [address] Dr. Layla Barrera Cryptosporidium Not detected Normal NOT DETECTED [facility] Comment on above: Performed By: #### G IPANEL #### [facility] [address] [address] [address] Layla Barrera Cyclos. Cayetanensis Not detected Normal NOT DETECTED [facility] Comment on above: Performed By: #### G IPANEL #### [facility] [address] [address] [address] Layla Barrera E. Coli O157 Not Applicable Normal Not Applicable [facility] Comment on above: Performed By: #### G IPANEL #### [facility] [address] [place] [address] Dr. Layla Barrera E. histolytica Not detected Normal NOT DETECTED [facility] Comment on above: Performed By: #### G IPANEL #### [facility] [address] [place] [address] Dr. Layla Barrera EAEC Not detected Normal NOT DETECTED [facility] Comment on above: Performed By: #### G IPANEL #### [facility] [address] [place] [address] Dr. Layla Barrera EIEC Not detected Normal NOT DETECTED [facility] Comment on above: Performed By: #### G IPANEL #### [facility] [address] [place] [address] Dr. Layla Barrera EPEC Detected Abnormal NOT DETECTED [facility] Comment on above: Performed By: #### G IPANEL #### [facility] [address] [place] [address] Dr. Layla Barrera ETEC Not detected Normal NOT DETECTED [facility] Comment on above: Performed By: #### G IPANEL #### [facility] [address] [place] [address] Dr. Layla Hennessy Lamblia Not detected Normal NOT DETECTED [facility] Comment on above: Performed By: #### G IPANEL #### [facility] [address] [place] [address] Dr. Layla STEINBERG CONTROLS PASSED Normal [facility] Comment on above: Performed By: #### G IPANEL #### [facility] [address] [place] [address] Dr. Layla [facility] HEADER GI PANEL BACTERIA Normal [facility] Comment on above: Performed By: #### G IPANEL #### [facility] [address] [place] [address] Dr. Layla SARAVIA ECOLI GI PANEL DIARRHEAGENIC E.COLI / SHIGELLA Normal [facility] Comment on above: Performed By: #### G IPANEL #### [facility] [address] [place] [address] Dr. Layla SARAVIA INFO SEE BELOW Normal [facility] Comment on above: Result Comment: EAEC - Enteroaggregative E. Coli EPEC- Enteropathogenic E. Coli ETEC- Enterotoxigenic E. Coli lt/st STEC- Shigella-like toxin-producing E. Coli stx1/stx2 EIEC- Shigella/Enteroinvasive E. Coli Performed By: #### G IPANEL #### [facility] [address] [place] [address] Dr. Layla SARAVIA PARASITES GI PANEL PARASITES Normal [facility] Comment on above: Performed By: #### G IPANEL #### [facility] [address] [address] [address] Layla SARAVIA VIRUS GI PANEL VIRUSES Normal [facility] Comment on above: Performed By: #### G IPANEL #### [facility] [address] [place] [address] Dr. Layla Barrera Norovirus GI/GII Not detected Normal NOT DETECTED [facility] Comment on above: Performed By: #### G IPANEL #### [facility] [address] [place] [address] Dr. Layla Barrera P. Shigelloides Not detected Normal NOT DETECTED [facility] Comment on above: Performed By: #### G IPANEL #### [facility] [address] [place] [address] Dr. Layla Barrera Rotavirus A Not detected Normal NOT DETECTED [facility] Comment on above: Performed By: #### G IPANEL #### [facility] [address] [place] [address] Dr. Layla Barrera Salmonella Not detected Normal NOT DETECTED [facility] Comment on above: Performed By: #### G IPANEL #### [facility] [address] [place] [address] Dr. Layla Barrera Sapovirus Not detected Normal NOT DETECTED [facility] Comment on above: Performed By: #### G IPANEL #### [facility] [address] [place] [address] Dr. Layla Barrera STEC Not detected Normal NOT DETECTED [facility] Comment on above: Performed By: #### G IPANEL #### [facility] [address] [place] [address] Dr. Layla Barrera Vibrio Not detected Normal NOT DETECTED [facility] Comment on above: Performed By: #### G IPANEL #### [facility] [address] [address] [address] Layla Barrera Vibrio Cholera Not detected Normal NOT DETECTED [facility] Comment on above: Performed By: #### G IPANEL #### [facility] [address] [place] [address] Dr. Layla Barrera Y. Enterocolitica Not detected Normal NOT DETECTED [facility] Comment on above: Performed By: #### G IPANEL #### [facility] [address] [address] [address] Layla Barrera GLYCOHEMOGLOBIN A1Con 2021 ADA RECOMMENDATION SEE BELOW Normal [facility] Comment on above: Result Comment: ADA RECOMMENDED LIMIT 4.0 - 6.0 ADA THERAPEUTIC TARGET < 7.0 ACTION SUGGESTED > 7.0 Performed By: #### G IPANEL #### [facility] [address] [place] [address] Dr. Layla Barrera Glucose [Mass/Vol] 134 mg/dL Normal [facility] Comment on above: Performed By: #### G IPANEL #### [facility] [address] [place] [address] Dr. Layla Barrera HbA1c (Bld) [Mass fraction] 6.3 % Critically high 4.5-6.2 [facility] Comment on above: Performed By: #### G IPANEL #### [facility] [address] [place] [address] Dr. Layla Barrera LIPASEon 03-11-2022 Lipase [Catalytic activity/Vol] 82.0 U/L Normal 73.0-393.0 [facility] Comment on above: Performed By: #### G IPANEL #### [facility] [address] [place] [address] Dr. Layla Barrera LIPID PROFILEon 03-11-2022 CHOL-HDL RATIO NORM SEE BELOW Normal [facility] Comment on above: Result Comment: 3.3 - 4.4 LOW RISK 4.4 - 7.1 AVERAGE RISK 7.1 - 11.0 MODERATE RISK >11.0 HIGH RISK Performed By: #### G IPANEL #### [facility] [address] [address] [address] Layla Barrera Cholesterol [Mass/Vol] 216 mg/dL Critically high <=200 [facility] Comment on above: Performed By: #### G IPANEL #### [facility] [address] [address] [address] Layla Barrera Cholesterol in HDL [Mass/Vol] 47 mg/dL Normal 40-60 [facility] Comment on above: Performed By: #### G IPANEL #### [facility] [address] [address] [address] Layla Barrera Cholesterol in LDL [Mass/Vol] 134.4 mg/dL Normal [facility] Comment on above: Performed By: #### G IPANEL #### [facility] [address] [address] [address] Layla Barrera Cholesterol.total/ Cholesterol in HDL [Mass ratio] 4.6 {ratio} Normal [facility] Comment on above: Performed By: #### G IPANEL #### [facility] [address] [address] [address] Layla Barrera HDL NORMAL > or = 60 mg/dl - LO W CARDIOVASCULAR RISK <40 mg/dl - HIGH CARDIOVASCULAR RISK Normal [facility] Comment on above: Performed By: #### G IPANEL #### [facility] [address] [address] [address] Layla Barrera LDL CALC NORMAL SEE BELOW Normal [facility] Comment on above: Result Comment: <100 mg/dl OPTIMAL 100 - 129 mg/dl NEAR OR ABOVE OPTIMAL 130 - 159 mg/dl BORDERLINE HIGH 160 - 189 mg/dl HIGH >190 mg/dl VERY HIGH Performed By: #### G IPANEL #### [facility] [address] [address] [address] Layla Barrera Triglyceride [Mass/Vol] 173 mg/dL Critically high <=150 [facility] Comment on above: Performed By: #### G IPANEL #### [facility] [address] [address] [address] Layla Barrera VLDL CALC 34.6 mg/dL Normal [facility] Comment on above: Performed By: #### G IPANEL #### [facility] [address] [place] [address] Dr. Layla Barrera OCC BLD IMMUNO SCREENon OCCULT BLOOD Negative Normal NEGATIVE [facility] Comment on above: Performed By: #### C BC #### [facility] [address] [place] [address] Dr. Layla Barrera PROF 14(COMP METB)on 022 Albumin [Mass/Vol] 3.7 g/dL Normal 3.4-5.0 [facility] Comment on above: Performed By: #### C BC #### [facility] [address] [place] [address] Dr. Layla Barrera Albumin/Globulin [Mass ratio] 1.1 {ratio} Normal [facility] Comment on above: Performed By: #### C BC #### [facility] [address] [place] [address] Dr. Layla Barrera ALP [Catalytic activity/Vol] 90 U/L Normal 46-116 [facility] Comment on above: Performed By: #### C BC #### [facility] [address] [place] [address] Dr. Layla Barrera ALT [Catalytic activity/Vol] 66 U/L Critically high 16-63 [facility] Comment on above: Performed By: #### C BC #### [facility] [address] [place] [address] Dr. Layla Barrera Anion gap [Moles/Vol] 12.8 mmol/L Normal [facility] Comment on above: Performed By: #### C BC #### [facility] [address] [place] [address] Dr. Layla Barrera AST [Catalytic activity/Vol] 32 U/L Normal 15-37 [facility] Comment on above: Performed By: #### C BC #### [facility] [address] [place] [address] Dr. Layla Barrera Bilirubin [Mass/Vol] 0.7 mg/dL Normal 0.2-1.0 [facility] Comment on above: Performed By: #### C BC #### [facility] [address] [place] [address] Dr. Layla Barrera Calcium [Mass/Vol] 8.9 mg/dL Normal 8.5-10.1 [facility] Comment on above: Performed By: #### C BC #### [facility] [address] [address] [address] Layla Barrera Chloride [Moles/Vol] 100 mmol/L Normal 98-107 [facility] Comment on above: Performed By: #### C BC #### [facility] [address] [place] [address] Dr. Layla Barrera CO2 [Moles/Vol] 27.9 mmol/L Normal 21.0-32.0 [facility] Comment on above: Performed By: #### C BC #### [facility] [address] [place] [address] Dr. Layla Barrera Creatinine [Mass/Vol] 1.30 mg/dL Normal 0.70-1.30 [facility] Comment on above: Performed By: #### C BC #### [facility] [address] [place] [address] Dr. Layla Barrera EGFR-AF FIJIAN >60 Normal >=60 [facility] Comment on above: Performed By: #### C BC #### [facility] [address] [place] [address] Dr. Layla Barrera EGFR-NON AF FIJIAN 53 mL/min/1.73m2 Critically low >=60 [facility] Comment on above: Performed By: #### C BC #### [facility] [address] [place] [address] Dr. Layla Barrera Globulin (S) [Mass/Vol] 3.3 g/dL Normal [facility] Comment on above: Performed By: #### C BC #### [facility] [address] [place] [address] Dr. Layla Barrera Glucose [Mass/Vol] 137 mg/dL Critically high 74-106 [facility] Comment on above: Performed By: #### C BC #### [facility] [address] [place] [address] Dr. Layla Barrera Potassium [Moles/Vol] 3.7 mmol/L Normal 3.5-5.1 [facility] Comment on above: Performed By: #### C BC #### [facility] [address] [place] [address] Dr. Layla Barrera Protein [Mass/Vol] 7.0 g/dL Normal 6.4-8.2 [facility] Comment on above: Performed By: #### C BC #### [facility] [address] [place] [address] Dr. Layla Barrera Sodium [Moles/Vol] 137 mmol/L Normal 136-145 [facility] Comment on above: Performed By: #### C BC #### [facility] [address] [place] [address] Dr. Layla Barrera Urea nitrogen [Mass/Vol] 20.0 mg/dL Critically high 7.0-18.0 [facility] Comment on above: Performed By: #### C BC #### [facility] [address] [place] [address] Dr. Layla Barrera Urea nitrogen/Creatinin e [Mass ratio] 15.4 mg/mg Normal [facility] Comment on above: Performed By: #### C BC #### [facility] [address] [place] [address] Dr. Layla Barrera URIC ACID SERUMon 03-11-2022 Urate [Mass/Vol] 8.3 mg/dL Critically high 3.5-7.2 [facility] Comment on above: Performed By: #### G IPANEL #### [facility] [address] [place] [address] Dr. Layla Barrera Office Visit (Cardiology)on 12-28-2021 [...] 09:51AM Hea (more content not included)... Normal [facility] Tobacco Screening.on 022 Fall risk assessment a) No falls within the last year -[facility] [address] DO Work Phone: Tobacco use status [facility] b) No -[facility] [facility] [place] [facility] [place] Work Phone: NO CARDIAC STRESS/REST INJE CTIONon 12-21-2021 [facility] CARDIAC STRESS/REST INJECTION Patient Name: TRAVIS COBURN STUDY: MYOCARDIAL PERFUSION STRESS TEST WITH LEXISCAN Performing facility: [facility] Provider: Azalea Deras MD, FACC PCP: Dr. Navarrete Supervising provider: Shaquille Ramos DO, FACC INDICATION: CAD; Dyspnea HISTORY: Gender: M; Age: 81 y/o ; Height: 0 cm; Weight: [phone] kg. CAD; High Cholesterol; HTN; SOB; Fatigue; Quit smoking 30 years ago. Cardiac catheterization on 2005. COMPARISON: Previous nuclear testing completed [id number] at [facility]. ACCESSION NUMBER(S): [id number]; [id number]; [id number] ORDERING CLINICIAN: JOHNNIE DERAS TECHNIQUE: TWO DAY [...] Electronically signed by: ABDOUL TIMMONS MD Normal [facility] No Panel Informationon 12-21 Normal -[facility] [facility] DO Work Phone: [...] DAILY. Allergies (more content not included)... Normal Stukent Tobacco Screening.on 022 Adult depression screening assessment No [facility] 250 DO Work Phone: Fall risk assessment a) No falls within the last year [facility] 250 DO Work Phone: Tobacco use status CPHS b) No [facility] 250 DO Work Phone: C REACTIVE PROTEINon 022 CRP [Mass/Vol] 3.3 mg/L Normal 0.0-7.0 [facility] Comment on above: Performed By: #### 6 1405 #### [facility] [address] [place] [address], [facility] CBC AUTO DIFFon 11-25-2021 BASO # 0.0 103/ul Normal 0.0-0.1 [facility] Comment on above: Performed By: #### G IPANEL #### [facility] [address] [place] [address] Dr. Layla Barrera Basophils/100 WBC (Bld) 0.5 % Normal 0.2-2.0 [facility] Comment on above: Performed By: #### G IPANEL #### [facility] [address] [place] [address] Dr. Layla Barrera EO # 0.2 103/ul Normal 0.0-0.7 [facility] Comment on above: Performed By: #### G IPANEL #### [facility] [address] [place] [address] Dr. Layla Barrera Eosinophils/100 WBC (Bld) 3.0 % Normal 0.9-7.0 [facility] Comment on above: Performed By: #### G IPANEL #### [facility] [address] [place] [address] Dr. Layla Barrera Erythrocyte distribution width (RBC) [Ratio] 13.7 % Normal 11.0-15.0 [facility] Comment on above: Performed By: #### G IPANEL #### [facility] [address] [place] [address] Dr. Layla Barrera Hematocrit (Bld) [Volume fraction] 40.0 % Critically low 42.0-54.0 [facility] Comment on above: Performed By: #### G IPANEL #### [facility] [address] [place] [address] Dr. Layla Barrera Hemoglobin (Bld) [Mass/Vol] 13.4 g/dL Critically low 14.0-18.0 [facility] Comment on above: Performed By: #### G IPANEL #### [facility] [address] [place] [address] Dr. Layla Barrera IG # 0.02 10e3/ul Normal 0.00-0.03 [facility] Comment on above: Performed By: #### G IPANEL #### [facility] [address] [place] [address] Dr. Layla Barrera IG % 0.3 % Normal 0.0-0.5 [facility] Comment on above: Performed By: #### G IPANEL #### [facility] [address] [place] [address] Dr. Layla Barrera LYMPH # 2.4 103/ul Normal 1.2-3.8 [facility] Comment on above: Performed By: #### G IPANEL #### [facility] [address] [place] [address] Dr. Layla Barrera Lymphocytes/100 WBC (Bld) 39.6 % Normal 20.5-60.0 [facility] Comment on above: Performed By: #### G IPANEL #### [facility] [address] [place] [address] Dr. Layla Barrera MANUAL DIFF REQ NO Normal [facility] Comment on above: Performed By: #### G IPANEL #### [facility] [address] [place] [address] Dr. Layla Barrera MCH (RBC) [Entitic mass] 31.3 pg Normal 25.9-34.0 [facility] Comment on above: Performed By: #### G IPANEL #### [facility] [address] [place] [address] Dr. Layla Barrera MCHC (RBC) [Mass/Vol] 33.5 g/dL Normal 29.9-35.2 [facility] Comment on above: Performed By: #### G IPANEL #### [facility] [address] [place] [address] Dr. Layla Barrera MCV (RBC) [Entitic vol] 93.5 fL Normal 80.0-94.0 [facility] Comment on above: Performed By: #### G IPANEL #### [facility] [address] [place] [address] Dr. Layla Barrera MONO # 0.6 103/ul Normal 0.3-0.8 [facility] Comment on above: Performed By: #### G IPANEL #### [facility] [address] [place] [address] Dr. Layla Barrera Monocytes/100 WBC (Bld) 9.3 % Normal 1.7-12.0 [facility] Comment on above: Performed By: #### G IPANEL #### [facility] [address] [place] [address] Dr. Layla Barrera NEUT # 2.8 103/ul Normal 1.4-6.5 [facility] Comment on above: Performed By: #### G IPANEL #### [facility] [address] [place] [address] Dr. Layla Barrera Neutrophils/100 WBC (Bld) 47.3 % Normal 43.0-75.0 [facility] Comment on above: Performed By: #### G IPANEL #### [facility] [address] [place] [address] Dr. Layla Barrera Platelet mean volume (Bld) [Entitic vol] 10.4 fL Normal 9.5-13.5 [facility] Comment on above: Performed By: #### G IPANEL #### [facility] [address] [place] [address] Dr. Layla Barrera PLT 184 103/ul Normal 150-450 [facility] Comment on above: Performed By: #### G IPANEL #### [facility] [address] [place] [address] Dr. Layla Barrera RBC 4.28 106/ul Critically low 4.70-6.10 [facility] Comment on above: Performed By: #### G IPANEL #### [facility] [address] [place] [address] Dr. Layla Barrera WBC 5.9 103/ul Normal 4.0-11.0 [facility] Comment on above: Performed By: #### G IPANEL #### [facility] [address] [place] [address] Dr. Layla Barrera CBC W/DIFFon 11-25-2021 ABS IMM GRANS 0.0 10*3/uL Normal 0.0-0.2 [facility] Comment on above: Performed By: #### 5 6505, [id number] #### [facility] [address] [place] [address], [facility] ABS NEUTROPHILS 3.6 10*3/uL Normal 1.6-7.6 [facility] Comment on above: Performed By: #### 5 6505, 12646 #### [facility] [address] [place] [address], [facility] Basophils (Bld) [#/Vol] 0.0 10*3/uL Normal 0.0-0.2 [facility] Comment on above: Performed By: #### 5 6505, 21007 #### [facility] [address] [place] [address], [facility] Basophils/100 WBC (Bld) 0.4 % Normal 0.0-1.0 [facility] Comment on above: Performed By: #### 5 6505, 30232 #### [facility] [address] [place] [address], [facility] Eosinophils (Bld) [#/Vol] 0.2 10*3/uL Normal 0.0-0.5 [facility] Comment on above: Performed By: #### 5 6505, [id number] #### [facility] [address] [place] [place] [address], [facility] Eosinophils/100 WBC (Bld) 2.2 % Normal 0.0-6.0 [facility] Comment on above: Performed By: #### 5 6505, 42907 #### [facility] [address] [place] [address], [facility] Erythrocyte distribution width (RBC) [Ratio] 13.6 % Normal 11.5-15.0 [facility] Comment on above: Performed By: #### 5 6505, 80894 #### [facility] [address] [facility] [address] Hematocrit (Bld) [Volume fraction] 40.4 % Normal 39.0-50.0 [facility] Comment on above: Performed By: #### 5 6505, 14422 #### [facility] [address] [facility] [address] Hemoglobin (Bld) [Mass/Vol] 13.7 g/dL Normal 13.0-17.0 [facility] Comment on above: Performed By: #### 5 6505, 73946 #### [facility] [address] [place] [address], [facility] IMMATURE GRANS 0.3 % Normal 0.0-1.0 [facility] Comment on above: Performed By: #### 5 6505, 28181 #### [facility] [address] [facility]. [address] Lymphocytes (Bld) [#/Vol] 2.4 10*3/uL Normal 1.2-4.0 [facility] Comment on above: Performed By: #### 5 6505, 62252 #### [facility] [address] Lymphocytes/100 WBC (Bld) 35.0 % Normal 20.0-45.0 [facility] Comment on above: Performed By: #### 5 6505, 16635 #### [facility] [address] [facility]. [address] MCH (RBC) [Entitic mass] 31.8 pg Normal 27.0-33.0 [facility] Comment on above: Performed By: #### 5 6505, 32435 #### [facility] [address] [facility]. [address] MCHC (RBC) [Mass/Vol] 33.9 g/dL Normal 32.0-35.0 [facility] Comment on above: Performed By: #### 5 6505, 15724 #### [facility] [address] [place] [place] [address], [facility] MCV (RBC) [Entitic vol] 93.7 fL Normal 82.0-98.0 [facility] Comment on above: Performed By: #### 5 6505, 16894 #### [facility] [address] [place] [place] [address], [facility] Monocytes (Bld) [#/Vol] 0.6 10*3/uL Normal 0.1-1.0 [facility] Comment on above: Performed By: #### 5 6505, 92761 #### [facility] [address] [place] [place] [address], [facility] MONOS 8.4 % Normal 5.0-12.0 [facility] Comment on above: Performed By: #### 5 6505, 14429 #### [facility] [address] [facility]. [address] Neutrophils/100 WBC (Bld) 53.7 % Normal 40.0-72.0 [facility] Comment on above: Performed By: #### 5 6505, 28534 #### [facility] [address] [place] [place] [address], [facility] Nucleated RBC/100 WBC (Bld) [Ratio] 0 % Normal 0-0 [facility] Comment on above: Performed By: #### 5 6505, 77786 #### [facility] [address] [place] [place] [address], [facility] PLAT CNT 198 10*3/uL Normal 150-400 [facility] Comment on above: Performed By: #### 5 6505, 21441 #### [facility] [address] [place] [address], [facility] RBC (Bld) [#/Vol] 4.31 10*6/uL Normal 4.20-5.70 [facility] Comment on above: Performed By: #### 5 6506, 98195 #### [facility] [address] [place] [address], [facility] WBC (Bld) [#/Vol] 6.75 10*3/uL Normal 4.00-10.60 [facility] Comment on above: Performed By: #### 5 6506, 12184 #### [facility] [address] [place] [address], [facility] COMP METABOLIC PANELon 11-25 Albumin [Mass/Vol] 4.1 g/dL Normal 3.5-5.7 [facility] Comment on above: Performed By: #### 0 0121 #### [facility] [address] ALKALINE PHOSPH 87 IU/L Normal 34-104 [facility] Comment on above: Performed By: #### 0 0121 #### [facility] [address] ALT [Catalytic activity/Vol] 47 U/L Normal 7-52 [facility] Comment on above: Performed By: #### 0 0121 #### [facility] [address] [facility] [address] AST [Catalytic activity/Vol] 29 U/L Normal 13-39 [facility] Comment on above: Performed By: #### 0 0121 #### [facility] [address] Bilirubin [Mass/Vol] 0.7 mg/dL Normal 0.3-1.0 [facility] Comment on above: Performed By: #### 0 0121 #### [facility] [address] [place] [address], [facility] Calcium [Mass/Vol] 9.7 mg/dL Normal 8.6-10.3 [facility] Comment on above: Performed By: #### 0 0121 #### [facility] [address] [place] [address], [facility] Chloride [Moles/Vol] 103 mmol/L Normal 98-107 [facility] Comment on above: Performed By: #### 0 0121 #### [facility] [address] [place] [address], [place] CO2 [Moles/Vol] 30 mmol/L Normal 21-31 [facility] Comment on above: Performed By: #### 0 0121 #### [facility] [address] [place] [address], [place] Creatinine [Mass/Vol] 1.06 mg/dL Normal 0.70-1.30 [facility] Comment on above: Performed By: #### 0 0121 #### [facility] [address] [place] [address], [place] GFR/1.73 sq M.predicted among blacks MDRD (S/P/Bld) [Vol rate/Area] mL/min/{1.73_m2} Normal >60 [facility] Comment on above: Result Comment: Calc ulation may not be valid for patients over 70 years Performed By: #### 0 0121 #### [facility] [address] [place] [address], [place] GFR/1.73 sq M.predicted among non-blacks MDRD (S/P/Bld) [Vol rate/Area] mL/min/{1.73_m2} Normal >60 [facility] Comment on above: Result Comment: Calc ulation may not be valid for patients over 70 years Performed By: #### 0 0121 #### [facility] [address] [place] [address], [place] Glucose [Mass/Vol] 94 mg/dL Normal 70-100 [facility] Comment on above: Performed By: #### 0 0121 #### [facility] [address] [place] [address], [place] Potassium [Moles/Vol] 4.7 mmol/L Normal 3.5-5.1 [facility] Comment on above: Performed By: #### 0 0121 #### [facility] [address] [place] [address], [facility] Protein [Mass/Vol] 6.6 g/dL Normal 6.0-8.3 [facility] Comment on above: Performed By: #### 0 0121 #### [facility] [address] [place] [address], [facility] Sodium [Moles/Vol] 138 mmol/L Normal 136-145 [facility] Comment on above: Performed By: #### 0 0121 #### [facility] [address] [place] [address], [facility] Urea nitrogen [Mass/Vol] 17 mg/dL Normal 7-25 [facility] Comment on above: Performed By: #### 0 0121 #### [facility] [address] FREE THYROXINE INDEX T7on FTI 2.38 Normal 1.30-4.50 [facility] Comment on above: Performed By: #### T SH, CMP, T7, MG #### [facility] [address] [address] [address] Layla Barrera T3U 34.0 % Normal 33.0-40.0 [facility] Comment on above: Performed By: #### T SH, CMP, T7, MG #### [facility] [address] [address] [address] Layla Barrera T4 [Mass/Vol] 7.00 ug/dL Normal 4.50-12.10 [facility] Comment on above: Performed By: #### T SH, CMP, T7, MG #### [facility] [address] [address] [address] Layla Barrera MAGNESIUMon 11-25-2021 Magnesium [Mass/Vol] 1.7 mg/dL Critically low 1.8-2.4 [facility] Comment on above: Performed By: #### T SH, CMP, T7, MG #### [facility] [address] [place] [address] Dr. Layla Barrera PROF 14(COMP METB)on 022 Albumin [Mass/Vol] 3.5 g/dL Normal 3.4-5.0 [facility] Comment on above: Performed By: #### T SH, CMP, T7, MG #### [facility] [address] [place] [address] Dr. Layla Barrera Albumin/Globulin [Mass ratio] 1.1 {ratio} Normal [facility] Comment on above: Performed By: #### T SH, CMP, T7, MG #### [facility] [address] [place] [address] Dr. Layla Barrera ALP [Catalytic activity/Vol] 97 U/L Normal 46-116 [facility] Comment on above: Performed By: #### T SH, CMP, T7, MG #### [facility] [address] [place] [address] Dr. Layla Barrera ALT [Catalytic activity/Vol] 64 U/L Critically high 16-63 [facility] Comment on above: Performed By: #### T SH, CMP, T7, MG #### [facility] [address] [place] [address] Dr. Layla Barrera Anion gap [Moles/Vol] 11.6 mmol/L Normal [facility] Comment on above: Performed By: #### T SH, CMP, T7, MG #### [facility] [address] [place] [address] Dr. Layla Barrera AST [Catalytic activity/Vol] 27 U/L Normal 15-37 [facility] Comment on above: Performed By: #### T SH, CMP, T7, MG #### [facility] [address] [place] [address] Dr. Layla Barrera Bilirubin [Mass/Vol] 0.8 mg/dL Normal 0.2-1.0 [facility] Comment on above: Performed By: #### T SH, CMP, T7, MG #### [facility] [address] [place] [address] Dr. Layla Barrera Calcium [Mass/Vol] 9.0 mg/dL Normal 8.5-10.1 [facility] Comment on above: Performed By: #### T SH, CMP, T7, MG #### [facility] [address] [place] [address] Dr. Layla Barrera Chloride [Moles/Vol] 102 mmol/L Normal 98-107 [facility] Comment on above: Performed By: #### T SH, CMP, T7, MG #### [facility] [address] [place] [address] Dr. Layla Barrera CO2 [Moles/Vol] 27.3 mmol/L Normal 21.0-32.0 [facility] Comment on above: Performed By: #### T SH, CMP, T7, MG #### [facility] [address] [place] [address] Dr. Layla Barrera Creatinine [Mass/Vol] 1.15 mg/dL Normal 0.70-1.30 [facility] Comment on above: Performed By: #### T SH, CMP, T7, MG #### [facility] [address] [place] [address] Dr. Layla Barrera EGFR-AF FIJIAN >60 Normal >=60 [facility] Comment on above: Performed By: #### T SH, CMP, T7, MG #### [facility] [address] [place] [address] Dr. Layla Barrera EGFR-NON AF FIJIAN >60 Normal >=60 [facility] Comment on above: Performed By: #### T SH, CMP, T7, MG #### [facility] [address] [place] [address] Dr. Layla Barrera Globulin (S) [Mass/Vol] 3.3 g/dL Normal [facility] Comment on above: Performed By: #### T SH, CMP, T7, MG #### [facility] [address] [place] [address] Dr. Layla Barrera Glucose [Mass/Vol] 144 mg/dL Critically high 74-106 [facility] Comment on above: Performed By: #### T SH, CMP, T7, MG #### [facility] [address] [place] [address] Dr. Layla Barrera Potassium [Moles/Vol] 3.9 mmol/L Normal 3.5-5.1 [facility] Comment on above: Performed By: #### T SH, CMP, T7, MG #### [facility] [address] [place] [address] Dr. Layla Barrera Protein [Mass/Vol] 6.8 g/dL Normal 6.4-8.2 [facility] Comment on above: Performed By: #### T SH, CMP, T7, MG #### [facility] [address] [place] [address] Dr. Layla Barrera Sodium [Moles/Vol] 137 mmol/L Normal 136-145 [facility] Comment on above: Performed By: #### T SH, CMP, T7, MG #### [facility] [address] [place] [address] Dr. Layla Barrera Urea nitrogen [Mass/Vol] 16.0 mg/dL Normal 7.0-18.0 [facility] Comment on above: Performed By: #### T SH, CMP, T7, MG #### [facility] [address] [place] [address] Dr. Layla Barrera Urea nitrogen/Creatinin e [Mass ratio] 13.9 mg/mg Normal [facility] Comment on above: Performed By: #### T SH, CMP, T7, MG #### [facility] [address] [place] [address] Dr. Layla Barrera SEDIMENTATION RATEon 022 SED RATE 10 mm/hr Normal 0-10 [facility] Comment on above: Performed By: #### 5 6506, 05064 #### [facility] [address] [place] [address], [facility] TSHon 11-25-2021 TSH 2.406 uIU/mL Normal 0.358-3.740 [facility] Comment on above: Performed By: #### T SH, CMP, T7, MG #### [facility] [address] [address] [address] Layla Barrera TSH RANGE SEE BELOW Normal [facility] Comment on above: Result Comment: <0.3 4 UIU/ml HYPERTHYROID 0.34-5.60 UIU/ml EUTHYROID >5.60 UIU/ml HYPOTHYROID Performed By: #### T SH, CMP, T7, MG #### [facility] [address] [address] [address] Layla Barrera CBC W/DIFFon 05-27-2021 ABS IMM GRANS 0.0 10*3/uL Normal 0.0-0.2 [facility] Comment on above: Performed By: #### 5 0103 #### [facility] [address] ABS NEUTROPHILS 3.8 10*3/uL Normal 1.6-7.6 [facility] Comment on above: Performed By: #### 5 0103 #### [facility] [address] [place] [address], [facility] Basophils (Bld) [#/Vol] 0.0 10*3/uL Normal 0.0-0.2 [facility] Comment on above: Performed By: #### 5 0103 #### [facility] [address] [place] [address], [facility] Basophils/100 WBC (Bld) 0.6 % Normal 0.0-1.0 [facility] Comment on above: Performed By: #### 5 0103 #### [facility] [address] [place] [address], [facility] Eosinophils (Bld) [#/Vol] 0.2 10*3/uL Normal 0.0-0.5 [facility] Comment on above: Performed By: #### 5 0103 #### [facility] [address] [place] [address], [facility] Eosinophils/100 WBC (Bld) 2.7 % Normal 0.0-6.0 [facility] Comment on above: Performed By: #### 5 3 #### [facility] [address] [facility] [address] Erythrocyte distribution width (RBC) [Ratio] 13.4 % Normal 11.5-15.0 [facility] Comment on above: Performed By: #### 5 3 #### [facility] [address] [facility] [place] [address], [facility] Hematocrit (Bld) [Volume fraction] 41.7 % Normal 39.0-50.0 [facility] Comment on above: Performed By: #### 5 3 #### [facility] [address] [facility]. [address] Hemoglobin (Bld) [Mass/Vol] 14.3 g/dL Normal 13.0-17.0 [facility] Comment on above: Performed By: #### 3 #### [facility] [address] [facility]. [address] IMMATURE GRANS 0.6 % Normal 0.0-1.0 [facility] Comment on above: Performed By: #### 5 3 #### [facility] [address] [place] [address], [facility] Lymphocytes (Bld) [#/Vol] 2.5 10*3/uL Normal 1.2-4.0 [facility] Comment on above: Performed By: #### 5 3 #### [facility] [address] [facility]. [address] Lymphocytes/100 WBC (Bld) 35.0 % Normal 20.0-45.0 [facility] Comment on above: Performed By: #### 5 3 #### [facility] [facility] [address] [place] [address], [facility] MCH (RBC) [Entitic mass] 31.6 pg Normal 27.0-33.0 [facility] Comment on above: Performed By: #### 5 0103 #### [facility] [address] MCHC (RBC) [Mass/Vol] 34.3 g/dL Normal 32.0-35.0 [facility] Comment on above: Performed By: #### 3 #### [facility] [address] MCV (RBC) [Entitic vol] 92.3 fL Normal 82.0-98.0 [facility] Comment on above: Performed By: #### 102 #### [facility] [address] Monocytes (Bld) [#/Vol] 0.5 10*3/uL Normal 0.1-1.0 [facility] Comment on above: Performed By: #### 3 #### [facility] [address] MONOS 7.4 % Normal 5.0-12.0 [facility] Comment on above: Performed By: #### 3 #### [facility] [address] Neutrophils/100 WBC (Bld) 53.7 % Normal 40.0-72.0 [facility] Comment on above: Performed By: #### 3 #### [facility] [address] Nucleated RBC/100 WBC (Bld) [Ratio] 0 % Normal 0-0 [facility] Comment on above: Performed By: #### 102 #### [facility] [address] [place] [address], [facility] PLAT CNT 194 10*3/uL Normal 150-400 [facility] Comment on above: Performed By: #### 3 #### [facility] [address] [place] [address], [facility] RBC (Bld) [#/Vol] 4.52 10*6/uL Normal 4.20-5.70 [facility] Comment on above: Performed By: #### 5 0103 #### [facility] [address] [place] [address], [facility] WBC (Bld) [#/Vol] 7.02 10*3/uL Normal 4.00-10.60 [facility] Comment on above: Performed By: #### 5 0103 #### [facility] [address] [place] [address], [facility] LIVER BATTERYon 05-27-2021 Albumin [Mass/Vol] 4.1 g/dL Normal 3.5-5.7 [facility] Comment on above: Performed By: #### 9 [id number] #### [facility] [address] [place] [id number], [facility] ALKALINE PHOSPH 75 IU/L Normal 34-104 [facility] Comment on above: Performed By: #### 9 [id number] #### [facility] [address] [place] [address], [facility] ALT [Catalytic activity/Vol] 42 U/L Normal 7-52 [facility] Comment on above: Performed By: #### 9 [id number] #### [facility] [address] [place] [address], [facility] AST [Catalytic activity/Vol] 27 U/L Normal 13-39 [facility] Comment on above: Performed By: #### 9 [id number] #### [facility] [address] [place] [address], [place] Bilirubin [Mass/Vol] 0.5 mg/dL Normal 0.3-1.0 [facility] Comment on above: Performed By: #### 9 [id number] #### [facility] [address] [place] [address], [place] Bilirubin.direct [Mass/Vol] 0.1 mg/dL Normal 0.0-0.2 [facility] Comment on above: Performed By: #### 9 [id number] #### [facility] [address] [place] [address], [facility] Protein [Mass/Vol] 6.8 g/dL Normal 6.0-8.3 [facility] Comment on above: Performed By: #### 9 [id number] #### [facility] [address] Vital Signs Date Time Vital Sign Value Performing Clinician Facility 01-19-2024 11:30-0400 Blood Pressure Location Nguyễn VELA [facility] 01-19-2024 11:30-0400 Body temperature 98.6 [degF] Nguyễn VELA [facility] 01-19-2024 11:30-0400 Diastolic blood pressure 84 mm[Hg] Nguyễn VELA [facility] 01-19-2024 11:30-0400 Heart rate 74 /min Nguyễn VELA [facility] 01-19-2024 11:30-0400 Respiratory rate 16 /min Nguyễn VELA [facility] 01-19-2024 11:30-0400 Systolic blood pressure 133 mm[Hg] Nguyễn VELA [facility] 11-27-2023 10:39-0400 Diastolic blood pressure 80 mm[Hg] Johnnie Deras MD Work Phone: [facility] 11-27-2023 10:39-0400 Systolic blood pressure 130 mm[Hg] Johnnie Deras MD Work Phone: [facility] 11-27-2023 10:11-0400 Body height 175.3 cm Johnnie Deras MD Work Phone: [facility] 11-27-2023 10:11-0400 Body mass index (BMI) [Ratio] 35.12 kg/m2 Johnnie Deras MD Work Phone: [facility] 11-27-2023 10:11-0400 Body weight 107.86 kg Johnnie Deras MD Work Phone: [facility] 11-27-2023 10:11-0400 Heart rate 80 /min Johnnie Deras MD Work Phone: [facility] 07-18-2023 14:14-0500 Blood Pressure Location Shaquille LILLY [facility] 07-18-2023 14:14-0500 Diastolic blood pressure 88 mm[Hg] Shaquille LILLY [facility] 07-18-2023 14:14-0500 Heart rate 92 /min Shaquille LILLY [facility] [place] 07-18-2023 14:14-0500 Respiratory rate 16 /min Shaquille LILLY [facility] [place] 07-18-2023 14:14-0500 Systolic blood pressure 138 mm[Hg] Shaquille LILLY [facility] 03-20-2023 14:45-0400 Diastolic blood pressure 92 mm[Hg] Nguyễn VELA [facility] 03-20-2023 14:45-0400 Mean blood pressure 111 mm[Hg] Nguyễn VELA [facility] 03-20-2023 14:45-0400 Systolic blood pressure 150 mm[Hg] Nguyễn VELA [facility] 03-20-2023 14:29-0400 Blood Pressure Location Nguyễn VELA [facility] 03-20-2023 14:29-0400 Diastolic blood pressure 91 mm[Hg] Nguyễn VELA [facility] 03-20-2023 14:29-0400 Heart rate 86 /min Nguyễn VELA [facility] 03-20-2023 14:29-0400 Systolic blood pressure 158 mm[Hg] Nguyễn VELA [facility] 12-28-2021 10:15-0400 Body height 177.8 cm Mayra Molina Hoy Work Phone: [facility] [address] DO Work Phone: 12-28-2021 10:15-0400 Body mass index (BMI) [Ratio] 34.15 kg/m2 Mayra Jesse Hoy Work Phone: [facility] 250 DO Work Phone: 12-28-2021 10:15-0400 Body surface area Derived from formula 2.25 m2 Mayra Jesse Hoy Work Phone: [facility] 250 DO Work Phone: 12-28-2021 10:15-0400 Body weight 107.96 kg Mayra M Hoy Work Phone: [facility] 250 DO Work Phone: 12-28-2021 10:15-0400 Diastolic blood pressure 70 mm[Hg] Mayra Jesse Hoy Work Phone: [facility] 250 DO Work Phone: 12-28-2021 10:15-0400 Heart rate 60 /min Mayra M Hoy Work Phone: [facility] 250 DO Work Phone: 12-28-2021 10:15-0400 Systolic blood pressure 138 mm[Hg] Mayra M Hoy Work Phone: [facility] 250 DO Work Phone: 12-28-2021 09:51-0400 Body height 177.8 cm Mayra M Hoy Work Phone: [facility] 250 DO Work Phone: 12-28-2021 09:51-0400 Body mass index (BMI) [Ratio] 34.15 kg/m2 Mayra M Hoy Work Phone: [facility] 250 DO Work Phone: 12-28-2021 09:51-0400 Body surface area Derived from formula 2.25 m2 Mayra M Hoy Work Phone: [facility] 250 DO Work Phone: 12-28-2021 09:51-0400 Body weight 107.96 kg Mayra M Hoy Work Phone: [facility] 250 DO Work Phone: 12-28-2021 09:51-0400 Diastolic blood pressure 70 mm[Hg] Mayra M Hoy Work Phone: [facility] 250 DO Work Phone: 12-28-2021 09:51-0400 Heart rate 60 /min Mayra M Hoy Work Phone: [facility] 250 DO Work Phone: 12-28-2021 09:51-0400 Systolic blood pressure 146 mm[Hg] Mayra M Hoy Work Phone: [facility] 250 DO Work Phone: 12-22-2021 08:00-0400 53 1 Mayra M Hoy Work Phone: [facility] 250 DO Work Phone: Comment on above: [id number] 12-08-2021 15:22-0400 Body height 177.8 cm Mayra M Hoy Work Phone: [facility] 250 DO Work Phone: 12-08-2021 15:22-0400 Body mass index (BMI) [Ratio] 34.15 kg/m2 Mayra M Hoy Work Phone: [facility] 250 DO Work Phone: 12-08-2021 15:22-0400 Body surface area Derived from formula 2.25 m2 Mayra M Hoy Work Phone: [facility] 250 DO Work Phone: 12-08-2021 15:22-0400 Body weight 107.96 kg Mayra M Hoy Work Phone: [facility] 250 DO Work Phone: 12-08-2021 15:22-0400 Diastolic blood pressure 70 mm[Hg] Mayra M Hoy Work Phone: [facility] 250 DO Work Phone: 12-08-2021 15:22-0400 Heart rate 87 /min Mayra M Hoy Work Phone: [facility] 250 DO Work Phone: 12-08-2021 15:22-0400 Systolic blood pressure 138 mm[Hg] Mayra M Hoy Work Phone: [facility] 250 DO Work Phone: 12-08-2021 15:12-0400 Diastolic blood pressure 70 mm[Hg] Mayra M Hoy Work Phone: [facility] 250 DO Work Phone: 12-08-2021 15:12-0400 Systolic blood pressure 140 mm[Hg] Mayra Molina Hoy Work Phone: [facility] 250 DO Work Phone: 12-08-2021 15:08-0400 Body height 177.8 cm Mayra Molina Hoy Work Phone: [facility] 250 DO Work Phone: 12-08-2021 15:08-0400 Body mass index (BMI) [Ratio] 34.15 kg/m2 Mayra Jesse Hoy Work Phone: [facility] 250 DO Work Phone: 12-08-2021 15:08-0400 Body surface area Derived from formula 2.25 m2 Mayra Jesse Hoy Work Phone: [facility] 250 DO Work Phone: 12-08-2021 15:08-0400 Body weight 107.96 kg Mayra Molina Hoy Work Phone: [facility] 250 DO Work Phone: 12-08-2021 15:08-0400 Diastolic blood pressure 82 mm[Hg] Mayra Molina Hoy Work Phone: [facility] [address] DO Work Phone: 12-08-2021 15:08-0400 Heart rate 87 /min Mayra Jesse Hoy Work Phone: [facility] 250 DO Work Phone: 12-08-2021 15:08-0400 Systolic blood pressure 142 mm[Hg] Mayra Jesse Hoy Work Phone: [facility] 250 DO Work Phone: Encounters Encounter Date Encounter Type Care Provider Facility Start: 07-17-2024 End: 07-17-2024 ambulatory MOIRA MOY Not Available Start: 07-11-2024 End: 07-11-2024 Bamboo flowsdaja Farrar PA Work Phone: [facility] Start: 07-11-2024 End: 07-11-2024 [facility] Work [facility] Start: 07-11-2024 End: 07-11-2024 ambulatory TAWANDA NEWBY Not Available Start: 07-11-2024 End: 07-11-2024 Office outpatient visit 15 minutes Tawanda Newby PA Work Phone: [facility] Comment on above: Rash and other nonsp ecific skin eruption (Primary Dx) Start: 07-09-2024 End: 07-09-2024 Bamboo flowsheet Moira Moy SKIING INSTRUCTOR [facility] Start: 07-09-2024 End: 07-09-2024 Bamboo flowsheet Moira Moy SKIING INSTRUCTOR [facility] Start: 07-09-2024 End: 07-09-2024 Treatment Moira Moy [employer]IING INSTRUCTOR [facility] Comment on above: Unilateral vestibula r weakness, right (Primary Dx); Cervicalgia; Balance disorder Start: 06-26-2024 End: 06-26-2024 Treatment Katey Depoy SKIING INSTRUCTOR Work Phone: [facility] Comment on above: Unilateral vestibula r weakness, right (Primary Dx); Cervicalgia; Balance disorder Start: 06-25-2024 End: 06-25-2024 ambulatory PHILIPPE ROUSE Not Available Start: 06-25-2024 End: 06-25-2024 Bamboo flowsheet Philippe Rouse DO Work Phone: [facility] Start: 06-25-2024 End: 06-25-2024 Bamboo flowsheet Philippe Rouse DO Work Phone: [facility] Start: 06-18-2024 End: 06-18-2024 Bamboo flowsheet Katey Depoy SKIING INSTRUCTOR Work Phone: [facility] Start: 06-18-2024 End: 06-18-2024 Bamboo flowsheet Katey Depoy SKIING INSTRUCTOR Work Phone: [facility] Start: 06-18-2024 End: 06-18-2024 Treatment Katey Depoy SKIING INSTRUCTOR Work Phone: [facility] Comment on above: Unilateral vestibula r weakness, right (Primary Dx); Cervicalgia; Balance disorder Start: 06-10-2024 End: 06-10-2024 Treatment Shaquille [facility] PT Work Phone: [facility] Comment on above: Cervicalgia (Primary Dx); Balance disorder; Unilateral vestibular weakness, right Start: 05-22-2024 End: 05-22-2024 Bamboo flowsheet Katey Depoy SKIING INSTRUCTOR Work Phone: [facility] Start: 05-22-2024 End: 05-22-2024 Bamboo flowsheet Katey Depoy SKIING INSTRUCTOR Work Phone: [facility] Start: 05-22-2024 End: 05-22-2024 Treatment Katey Depoy SKIING INSTRUCTOR Work Phone: [facility] Comment on above: Balance disorder (Pr imary Dx); Unilateral vestibular weakness, right; Cervicalgia Start: 05-07-2024 End: 05-07-2024 Bamboo flowsheet Shaquille [facility] PT Work Phone: [facility] Start: 05-07-2024 End: 05-07-2024 Bamboo flowsheet Shaquille Valencia PT Work Phone: [facility] Start: 05-07-2024 End: 05-07-2024 Treatment Shaquille Valencia PT Work Phone: [facility] Comment on above: Unilateral vestibula r weakness, right (Primary Dx); Cervicalgia; Balance disorder Start: 04-23-2024 End: 04-23-2024 Treatment Shaquille [facility] PT Work Phone: [facility] Comment on above: Cervicalgia (Primary Dx); Balance disorder; Unilateral vestibular weakness, right Start: 04-17-2024 End: 04-17-2024 ambulatory [facility] Start: 04-04-2024 ambulatory [facility] Start: 04-02-2024 End: 04-02-2024 Treatment Shaquille Valencia PT Work Phone: [facility] Comment on above: Unilateral vestibula r weakness, right (Primary Dx); Cervicalgia; Balance disorder Start: 03-18-2024 End: 03-18-2024 Bamboo flowsheet Shaquille Valencia PT Work Phone: [facility] Start: 03-18-2024 End: 03-18-2024 Bamboo flowsheet Shaquille Valencia PT Work Phone: [facility] Start: 03-18-2024 End: 03-18-2024 Treatment Shaquille Valencia PT Work Phone: [facility] Comment on above: Unilateral vestibula r weakness, right (Primary Dx); Cervicalgia; Balance disorder Start: 03-08-2024 End: 03-08-2024 Bamboo flowsheet Shaquille Valencia PT Work Phone: [facility] Start: 03-08-2024 End: 03-08-2024 Bamboo flowsheet Shaquille Valencia PT Work Phone: [facility] Start: 03-08-2024 End: 03-08-2024 Evaluation Shaquille Valencia PT Work Phone: [facility] Comment on above: Balance disorder (Pr imary Dx); Unilateral vestibular weakness, right; Cervicalgia Start: 02-15-2024 End: 02-15-2024 ambulatory LUIS DANIEL Molina [facility] Start: 02-06-2024 End: 02-06-2024 ambulatory [facility] Ambulatory Start: 02-01-2024 End: 02-01-2024 ambulatory RADHA MONTES Not Available Start: 01-23-2024 End: 01-23-2024 ambulatory MEGAN Bill OLAMIDE Not Available Start: 01-19-2024 End: 01-19-2024 Patient encounter procedure Nguyễn VELA [facility] Start: 12-27-2023 End: 12-27-2023 ambulatory MEGAN QUIÑONEZ Not Available Start: 12-25-2023 End: 12-25-2023 ambulatory YUE GARCIA Not Available Start: 11-27-2023 End: 11-27-2023 Office outpatient visit 15 minutes Johnnie Deras MD Work Phone: [facility] Comment on above: 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); Benign essential hypertension; Mixed hyperlipidemia; Former cigarette smoker Start: 11-27-2023 End: 11-27-2023 ambulatory JOHNNIE DERAS [facility] Ambulatory Start: 10-11-2023 End: 10-11-2023 ambulatory [facility] Start: 10-02-2023 [facility] Start: 09-13-2023 End: 09-14-2023 ambulatory Shaquille R MAXX Facility: [facility] Start: 09-13-2023 End: 09-13-2023 Patient encounter procedure Shaquille R MAXX [facility] Nill[facility] Start: 09-01-2023 End: 09-02-2023 ambulatory Shaquille R NILL Facility: [facility] Start: 09-01-2023 End: 09-01-2023 Patient encounter procedure Shaquille R NILL General Surgery Nill/[facility] Start: 08-22-2023 End: 08-23-2023 ambulatory Mayra Navarrete Facility:[facility] Start: 08-22-2023 End: 08-22-2023 Patient encounter procedure Shaquille R MAXX General Surgery [facility] Start: 08-22-2023 End: 08-22-2023 ambulatory MD Mayra Navarrete Work Phone: [facility] Work Phone: Start: 08-22-2023 End: 08-22-2023 Departed Referred MD Mayra Navarrete Work Phone: [facility] Start: 08-17-2023 End: 08-17-2023 ambulatory BASSUKHDEV YANESH [facility] Start: 08-16-2023 End: 08-16-2023 ambulatory TOO THOMPSON [facility] Start: 07-20-2023 End: 07-20-2023 ambulatory RADHA MONTES Not Available Start: 07-18-2023 End: 07-19-2023 ambulatory Shaquille LILLY Facility:[facility] Start: 07-18-2023 End: 07-18-2023 Patient encounter procedure Shaquille LILLY General Surgery Nill/[facility] Start: 04-05-2023 ambulatory MAYRA NAVARRETE [facility] Start: 04-05-2023 End: 04-05-2023 ambulatory [facility] Start: 03-20-2023 End: 03-21-2023 ambulatory Nguyễn VELA Facility:[facility] Start: 03-20-2023 End: 03-20-2023 Patient encounter procedure Nguyễn VELA [facility] Start: 10-28-2022 DAYNA ORR, Provider : ALIYA YOUNG WAFER FABRICATOR 1,[id number], Status: Pen, Time: 10:00 AM Mayra Navarrete Work Phone: [facility] 250 DO Work Phone: Start: 10-28-2022 Patient encounter procedure Mayra Navarrete Work Phone: [facility] 250 DO Work Phone: Start: 10-28-[address] [facility] Facility: Start: 10-27-2022 Telephone encounter Mayra Navarrete Work Phone: [facility] 250 DO Work Phone: Start: 10-25-2022 End: 10-26-2022 ambulatory KWADWO CRUMP Facility:[facility] Start: 06-20-2022 End: 06-21-[address] MAYRA NAVARRETE . Facility:[facility] Start: 03-11-2022 End: 03-12-[address] MAYRA NAVARRETE . Facility:[facility] Start: 01-25-2022 Rx Renewal Mayra Correay Work Phone: -[facility] 600 DO Work Phone: Start: 12-30-2021 Chart Update Mayra Navarrete Work Phone: [facility] 250 DO Work Phone: Start: 12-28-2021 Office outpatient vi sit 25 minutes Mayra Correay Work Phone: [facility] 250 DO Work Phone: Start: 12-28-2021 Patient encounter procedure Mayra Navarrete Work Phone: [facility] 250 DO Work Phone: Start: 12-28-[address] Mayra Navarrete Facility: Start: 12-08-2021 Office outpatient vi sit 25 minutes Mayra Navarrete Work Phone: [facility] 250 DO Work Phone: Start: 12-08-[address] Mayra Navarrete Facility: Start: 11-25-2021 End: 11-26-[address] MAYRA NAVARRETE . Facility:[facility] Start: 11-24-2021 End: 11-25-[address] MAYRA NAVARRETE . Facility:[facility] Procedures Date Procedure Procedure Detail Performing Clinician Start: 06-25-2024 Computerized ophthalmic imaging retina Philippe Rouse DO Work Phone: Start: 06-25-2024 End: 06-25-2024 Oph medical xm&eval comprhnsv estab pt 1/> Type 2 diabetes mellitus [...] LILLY Start: 04-05-2023 Procedure on back Nguyễn VLEA Start: 06-20-[address] MAYRA NAVARRETE . Comment on above: Performed By: #### GIPANEL #### [facility] [address] [place] [address] Dr. Layla Barrera Start: 04-09-2014 right knee arthroscopy Nguyễn MIRIAN Start: 02-25-2003 Cystoscopic removal of ureteric stent Nguyễn VELA Arthroscopic knee operation Nguyễn MIRIAN Comment on above: left Arthroscopy of knee Mayra M Landon Work Phone: Comment on above: (Therapeutic) Bilateral; Cardiac catheterization Ruben las M Landon Work Phone: Colonoscopy Nguyễn VELA Comment on above: many Cystoscopy Nguyễn VELA Elbow joint operations Dougl as M Landon Work Phone: Comment on above: Left; Esophagogastroduodenoscopy Jamaal VELA Excision of basal cell carcinoma Mayra Navarrete Work Phone: Excision of mass of [...] Comment on above: Left; Shoulder Surgery Nguyễn GOLDEN Total colonoscopy Mayra Navarrete Work Phone: Comment on above: [id number]; Plan of Treatment Date Care Activity Detail Author Start: 06-25-2025 End: 06-25-2025 Patient encounter procedure 06/25/2025 11:00 AM EST Office Visit [facility] [address] [place] [phone] Philippe Rouse DO [address] [place] [address] [facility] Start: 11-29-2024 End: 11-29-2024 Patient encounter procedure 11/29/2024 10:20 AM EDT Office Visit [facility] [address] [facility] [address] [place] [phone] Abdoul Timmons MD [address] [facility] [place] [address] [facility] Start: 07-23-2024 End: 07-23-2024 Patient encounter procedure 07/23/2024 1:30 PM EST Office Visit [facility] [address] [place] [phone] Radha Montes MD [address] [place] [address] [facility] Start: 07-22-2024 End: 07-22-2024 Patient encounter procedure 07/22/2024 11:30 AM EST Office Visit [facility] [address] [place] [phone] Radha Montes MD [address] [place] [address] [facility] Start: 07-17-2024 End: 07-17-2024 ambulatory 07/17/2024 10:30 AM EST Treatment [facility] [address] [place] [address] Moira Moy SKIING INSTRUCTOR [facility] Start: 07-09-2024 End: 07-09-2024 ambulatory 07/09/2024 10:30 AM EST Treatment [facility] [address] [place] [address] Moira Moy SKIING INSTRUCTOR [facility] Start: 06-26-2024 End: 06-26-2024 ambulatory 06/26/2024 10:30 AM EST Treatment [facility] [address] [place] [address] Katey Shaikh PTA [address] [place] [address] [facility] Start: 06-25-2024 End: 06-25-2024 Patient encounter procedure [facility] Comment on above: Arrived Start: 06-25-2024 End: 06-25-2024 ambulatory 06/25/2024 10:30 AM EST Treatment [facility] [address] [place] [address] Moira Moy, SKIING INSTRUCTOR [facility] Start: 06-11-2024 End: 06-11-2024 ambulatory 06/11/2024 10:00 AM EST Treatment [facility] [address] [place] [address] Katey Shaikh, SKIING INSTRUCTOR [address] [place] [address] [facility] Start: 05-15-2024 End: 05-15-2024 ambulatory 05/15/2024 10:30 AM EST Treatment [facility] [address] [place] [address] Katey Shaikh, SKIING INSTRUCTOR [address] [place] [address] [facility] Start: 05-07-2024 End: 05-07-2024 ambulatory [facility] Comment on above: Arrived Start: 04-23-2024 End: 04-23-2024 ambulatory 04/23/2024 9:40 AM EDT Treatment [facility] [address] [address] [place] [address] Shaquille Valencia, PT [address] [place] [address] [facility] Start: 04-02-2024 End: 04-02-2024 ambulatory 04/02/2024 9:30 AM EDT Treatment [facility] [address] [place] [address] Shaquille Valencia, PT [address] [place] [address] [facility] Start: 03-18-2024 End: 03-18-2024 ambulatory [facility] Comment on above: Cervicalgia (Primary Dx); Balance disorder; Unilateral vestibular weakness, right Start: 03-10-2024 Influenza vaccination [facility] Start: 03-08-2024 End: 03-08-2024 Evaluation 03/08/2024 8:20 AM EDT Evaluation [facility] [address] [place] [address] Shaquille Valencia, PT [address] [place] [address] Balance disorder (Primary Dx) [facility] Comment on above: Balance disorder (Pr imary Dx) Start: 01-19-2024 ambulatory Ambulatory Facility:[facility] Start: 11-27-2023 End: 11-26-2024 Lipid 1996 panel - Serum or Plasma Lipid Panel Lab Routine Mixed hyperlipidemia Expected: 11/27/2023 (Approximate), Expires: 11/26/2024 [facility] Service Area Work Phone: Comment on above: Expected: 11/27/2023 (Approximate), Expires: 11/26/2024 Start: 03-10-2023 COVID-19 Vaccine ( season) COVID-19 Vaccine ( season) [facility] Start: 12-06-2022 FUV, Provider: Johnnie Deras, Status: Pen, Time: 10:00 AM FUV, Provider: Johnnie Deras, Status: Pen, Time: 10:00 AM [facility] Work Phone: Start: 11-24-2022 FUV, Provider: Johnnie Deras, Status: Pen, Time: 2:00 PM FUV, Provider: Johnnie Deras, Status: Pen, Time: 2:00 PM [facility] Work Phone: Start: 12-28-2021 FUV, Provider: Johnnie Deras, Status: Pen, Time: 9:45 AM FUV, Provider: Johnnie Deras, Status: Pen, Time: 9:45 AM [facility] DO Work Phone: Start: 12-22-2021 REST ONLY, Provider: [place] CASEI NUCLEAR 01,[id number], Status: Pen, Time: 8:00 AM REST ONLY, Provider: [place] HHVI NUCLEAR 01,[id number], Status: Pen, Time: 8:00 AM [facility] [place] [employer] 250 DO Work Phone: Start: 12-21-2021 STRESSNUC2, Provider : [place] CASEI NUCLEAR 01,[id number], Status: Pen, Time: 8:00 AM STRESSNUC2, Provider: [place] CASEI NUCLEAR 01,[id number], Status: Pen, Time: 8:00 AM [facility] Work Phone: Start: 2001 Hepatitis B Vaccines (1 of 3 - Risk 3-dose series) Hepatitis B Vaccines (1 of 3 - Risk 3-dose series) [facility] Start: 2001 RSV patient s and/or patients aged 60+ years (1 - 1-dose 60+ series) RSV patients and/or patients aged 60+ years (1 - 1-dose 60+ series) [facility] Start: 11-03-1991 Zoster Vaccines (1 o f 2) Zoster Vaccines (1 of 2) [facility] Start: 11-03-1963 DTaP/Tdap/Td Vaccine s (1 - Tdap) DTaP/Tdap/Td Vaccines (1 - Tdap) [facility] Start: 1960 Hepatitis A Vaccines (1 of 2 - Risk 2-dose series) Hepatitis A Vaccines (1 of 2 - Risk 2-dose series) [facility] Start: 1941 Lipid panel Lipid Panel [facility] Start: 1941 Medicare Annual Wellness Visit Medicare Annual Wellness Visit (AWV) [facility] Start: 1941 Screening for osteoporosis Bone Density Scan [facility] Immunizations Immunization Date Immunization Notes Care Provider Rachele torres 07-26-2022 Fluad Quadrivalent 0 .5 ML Intramuscular Prefilled Syringe Mayra Navarrete Work Phone: [facility] 250 DO Work Phone: 07-26-2022 influenza virus vaccine, unspecified formulation Nguyễn VELA [facility] 11-17-2021 Comirnaty 30 MCG/0.3 ML Intramuscular Suspension Mayra Navarrete Work Phone: [facility] 250 DO Work Phone: 11-17-2021 SARS-CoV-2 mRNA (zmmuvwpbvty-ssjq-vqwrv se) vaccine Nguyễn VELA [facility] 05-20-2021 Pfizer-BioNTech COVID-19 Vacc 30 MCG/0.3ML Intramuscular Suspension Mayra Navarrete Work Phone: [facility] Comment on above: Result Comment: 2022: [id number] 05-12-2021 influenza, seasonal, injectable Johnnie Deras MD Work Phone: [facility] Work Phone: 11-17-2020 SARS-CoV-2 (COVID-19 ) mRNA BNT-162b2 vax Nguyễn VELA [facility] 10-29-2020 Pfizer-BioNTech COVID-19 Vacc 30 MCG/0.3ML Intramuscular Suspension Mayra Navarrete Work Phone: [facility] Comment on above: Result Comment: 2022: [id number] 10-28-2020 Moderna COVID-19 vaccine, bivalent, blue cap/cunningham label *Check age/dose* Johnnie Deras MD Work Phone: [facility] Work Phone: 10-27-2020 SARS-CoV-2 (COVID-19 ) mRNA BNT-162b2 vax Nguyễn VELA [facility] 10-06-2020 Pfizer-BioNTech COVID-19 Vacc 30 MCG/0.3ML Intramuscular Suspension Mayra Navarrete Work Phone: [facility] Comment on above: Result Comment: 2022: [id number] 09-29-2020 Moderna COVID-19 vaccine, bivalent, blue cap/cunningham label *Check age/dose* Johnnie Deras MD Work Phone: [facility] Work Phone: 04-23-2020 influenza virus vaccine, unspecified formulation Nguyễn [employer] [facility] 04-23-2020 influenza, high dose seasonal, preservative-free Mayra Molina [employer] Work Phone: [facility] [employer] 250 DO Work Phone: 04-09-2018 influenza virus vaccine, unspecified formulation Mayra Molina Hoy Work Phone: [facility] [employer] 250 DO Work Phone: 07-10-2017 pneumococcal polysaccharide vaccine, 23 valent Mayra Molina [employer] Work Phone: [facility] [employer] 250 DO Work Phone: 04-09-2016 influenza virus vaccine, unspecified formulation Mayra Molina [employer] Work Phone: [facility] [employer] 250 DO Work Phone: 04-09-2016 pneumococcal conjuga te vaccine, 13 valent Mayra Molina Hoy Work Phone: [facility] [employer] 250 DO Work Phone: 04-22-2015 influenza virus vaccine, unspecified formulation Nguyễn [employer] [facility] 04-22-2015 influenza, injectabl e, quadrivalent, contains preservative Mayra Molina Hoy Work Phone: [facility] [employer] 250 DO Work Phone: 04-09-2015 influenza virus vaccine, unspecified formulation Mayra Navarrete Work Phone: [facility] 250 DO Work Phone: 05-22-2014 influenza virus vaccine, unspecified formulation Nguyễn VELA [facility] 05-22-2014 influenza, injectabl e, quadrivalent, contains preservative Mayra Navarrete Work Phone: [facility] 250 DO Work Phone: 07-10-2012 influenza virus vaccine, unspecified formulation [facility]rete [facility] Work Phone: 07-10-2011 pneumococcal polysaccharide vaccine, 23 valent Mayra Navarrete Work Phone: [facility] 250 DO Work Phone: influenza virus vaccine, unspecified formulation Mayra Navarrete Work Phone: [facility] DO Work Phone: Comment on above: 2011 NEGATED: Highlighted row has not occurred!07-18-2023 influenza virus vaccine, unspecified formulation Shaquille LILLY [facility] Payers Date Payer Category Payer Self-pay [id number] 2018 Private Health Insurance [id number] 2006 Medicare [id number] 1959 Medicare [id number] 1959 Private Health Insurance [id number] 1941 Unknown [id number] 2.16. 840.1.184685.3.579.2.356 1941 Unknown [id number] 2.16. 840.1.508846.3.579.2.356 1941 Unknown [id number] 2.16. 840.1.627521.3.579.2.356 1941 Unknown [id number] 2.16.84 0.1.140743.3.579.2.593 1941 Unknown [id number] 2.16.84 0.1.505547.3.579.2.593 1941 Unknown [id number] 2.16.84 0.1.633247.3.579.2.593 1941 Unknown [id number] 2.16.84 0.1.187147.3.579.2.593 1941 Unknown [id number] 2.16.84 0.1.758213.3.579.2.593 1941 Unknown [id number] 2.16.8 40.1.974861.3.579.2.754 1941 Unknown [id number] 2.16.8 40.1.668091.3.579.2.754 1941 Unknown [id number] 2.16.8 40.1.893493.3.579.2.727 1941 Unknown [id number] 2.16.8 40.1.445866.3.579.2.727 1941 Unknown [id number] 2.16.8 40.1.937236.3.579.2.727 194 Unknown [id number] 2.16.8 40.1.674184.3.579.2.727 194 Unknown [id number] 2.16.8 40.1.641815.3.579.2.727 1941 Unknown [id number] 2.16.8 40.1.140463.3.579.2.727 1941 Unknown [id number] 2.16.8 40.1.732648.3.579.2.1244 1941 Unknown [id number] 2.16.8 40.1.708045.3.579.2.1244 1941 Unknown [id number] 2.16.84 0.1.036527.3.579.2.1259 1941 Unknown [id number] 2.16.84 0.1.994226.3.579.2.125 1941 Unknown [id number] 2.16.84 0.1.547778.3.579.2.125 1941 Unknown [id number] 2.16.84 0.1.003425.3.579.2.1259 1941 Unknown [id number] 2.16.84 0.1.474151.3.579.2.1258 1941 Unknown [id number] 2.16.84 0.1.471792.3.579.2.1258 1941 Unknown [id number] 2.16.84 0.1.267950.3.579.2.1258 1941 Unknown [id number] 2.16.84 0.1.346874.3.579.2.1259 1941 Unknown [id number] 2.16.84 0.1.945414.3.579.2.125 1941 Unknown [id number] 2.16.84 0.1.113011.3.579.2.125 1941 Unknown [id number] 2.16.84 0.1.758860.3.579.2.1258 1941 Unknown [id number] 2.16.84 0.1.857561.3.579.2.1259 1941 Unknown [id number] 2.16.84 0.1.686030.3.579.2.1258 1941 Unknown [id number] 2.16.84 0.1.695060.3.579.2.1259 1941 Unknown [id number] 2.16.84 0.1.874647.3.579.2.1259 1941 Unknown [id number] 2.16.84 0.1.158779.3.579.2.1259 1941 Unknown [id number] 2.16.84 0.1.970084.3.579.2.1259 1941 Unknown [id number] 2.16.84 0.1.030820.3.579.2.1259 Medicare [id number] Unknown Unknown [id number] Unknown [id number] 2.16.8 40.1.101362.3.579.2.531 Social History Date Type Detail Facility Start: 11-27-2023 End: 07-11-2024 Caffeine use Caffeine use [facility] 250 DO Work Phone: Comment on above: Coffee: 1 cup dailyS ac- Occasionally; Quit: 1991; Start: 03-20-2023 End: 07-27-2023 Tobacco smoking status Ex-smoker (finding) [facility] Tobacco smoking status Never [facility] Start: 11-27-2023 End: 07-11-2024 Sex Assigned At Male [facility] Start: 1940 Sex Assigned At Male [facility] History of tobacco use Current smoker [facility] Work Phone: History of tobacco use Cigarette Smoker [facility] Work Phone: Start: 07-27-2023 End: 11-27-2023 Tobacco use and exposure Smokeless tobacco non-user [facility] Work Phone: Start: 11-27-2023 End: 07-11-2024 Alcoholic beverage intake Lifetime non-drinker (finding) [facility] Work Phone: Start: 1940 Sex assigned at Not on file [facility] Work Phone: Start: 11-17-2023 End: 11-27-2023 Exposure to SARS-CoV-2 (event) Not sure [facility] Start: 07-27-2023 Alcohol Comment caffeine 1-2 cups/day [facility] NEGATED: Highlighted rowStart: NINF History of tobacco use Passive smoker [facility] Functional Status Date Assessment Result Facility 01-19-2024 Functional Status N/A [facility] 07-18-2023 Functional Status N/A [facility] 03-20-2023 Functional Status N/A [facility] Clinical Notes 03-20-2023 to 07-11-2024 Tawanda Farrar, EVON - 07/11/2024 11:00 AM Qi Rouse, DO - 06/25/2024 2:30 PM Jessee Valencia, PT - 06/10/2024 9:30 AM Elder Shaikh, SKIING INSTRUCTOR - 05/22/2024 11:30 AM EST Note Date & Type Note Facility 07-11-2024 History of Present illness Narrative Images from the original note were not included. Rash Location: face Duration: weeks following Efudex treatment Severity: moderate Quality: tender, draining pus Modifying Factors: none Treatments tried: Aquaphor Current treatments: Mupirocin 2% ointment, Clindamycin 300 mg 3x daily x 10 days. Today is day 10. Established patient of Radha Montes MD All pertinent medical history, medications, and allergies were reviewed. General Exam: alert, oriented to person, place, and time, normal affect, well appearing Unaccompanied A focused exam completed based on patient reported problems, see below: 1. Rash and other nonspecific skin eruption Head - Anterior (Face), Scalp [place] Walk patches and plaques. Favoring robust reaction to Efudex. Will have patient discontinue antibiotic ointments (mupirocin and clindamycin), and start hydrocortisone 2.5% cream. Apply this twice daily round nose and on scalp until inflammation and erythema clears. Patient is scheduled for skin exam on 07/23/[address] Montes, will have him follow up on rash at this visit. Patient advised to call for any new or worsening symptoms despite treatment. Related Medications hydrocortisone 2.5 % cream Apply topically 2 (two) times a day as needed (Rash) Apply thin layer to affected areas bid prn for flares Next Visit: 2 weeks as scheduled with EP documented in this encounter [facility] 06-25-2024 Note Right Eye Quality was good. Scan locations included subfoveal. Progression has been stable. Findings include normal observations. Left Eye Quality was good. Scan locations included subfoveal. Progression has been stable. Findings include normal observations. Notes Good scan with normal appearance [facility] 06-25-2024 History of Present illness Narrative Images from the original note were not included. Assessment/Plan Diagnoses and all orders for this visit: Type 2 diabetes mellitus without complication, with long-term current use of insulin ([facility]) - Diabetes Mellitus without sign of diabetic [...] scrubs were recommended. 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 Visit date: 04/17/24 Reason for today's visit: Follow up for CKD stage 3 and Hypertension SUBJECTIVE: BACKGROUND: Travis Coburn is a 83 y.o. male has a past medical history of Diabetes mellitus ([facility]), Hypertension, Polymyalgia rheumatica ([facility]), and Psoriatic arthritis ([facility]). Patient has history of Type II diabetes [...] 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 10 mg once weekly by his supervisor corduroy cutting for polymyalgia rheumatica Blood pressure & heart [...] Iron studies: Lab (more content not included)... 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 [...] Director Vestibular Rehabilitation documented in this encounter [facility] 03-08-2024 History of Present illness Narrative Travis Coburn [id number] 03/06/24 Subjective: 83 yom sent to PT [...] psoriatic arthritis Vision troubles they go funny, 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 [facility] 01-19-2024 Hospital Discharge instructions Patient Education 01/19/2024 [...] urethra. Follow these instructions at home: Take ygbe-cpd-crnagtx and prescription medicines only as told by [...] provider. Document Revised: 01/12/2022 Document Reviewed: 01/12/2022 [employer] Patient Education 2022 [employer]. Follow Up Care 03/20/2023 15:42:16 With:MIRIAN TURNER, Nguyễn Peter, URL Address: [address] [place] [address]- When: Unknown [facility] 11-27-2023 History of Present illness [...] Rfl: Assessment/Plan 1. 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 2. Benign essential hypertension Review of treatment strategy demonstrates good control 3. Mixed hyperlipidemia Review of treatment strategy demonstrates good control 4. Former cigarette smoker Congratulated on cessation Scribe Attestation By signing my name below, I Ban Hiral HERNANDEZ, Scribe attest that this documentation has been prepared [...] discussion and plan. documented in this encounter [facility] Work Phone: 11-27-2023 Instructions Ban Lisa [...] instructions on exercise. documented in this encounter [facility] Work Phone: 10-11-2023 Note Attestation signed by Too Thompson MD at 10/12/2023 11:42 PM I saw, interviewed, examined and evaluated the patient with Nephrology fellow Dr. Faith Matias. I participated in the medical management of the patient. I reviewed the fellow's note and agree with the fellow's documentation in the note. Too Thompson MD Faculty, Division of Nephrology, Department of Medicine, [facility] Sciences. [facility] Patient: Travis Coburn; 82 y.o. Visit date: 10/11/23 Reason for today's visit: Follow up for CKD stage 3 and Hypertension SUBJECTIVE: BACKGROUND: Travis Coburn is a 82 y.o. male has a past medical history of Diabetes mellitus ([facility]), Hypertension, Polymyalgia rheumatica ([facility]), and Psoriatic arthritis ([facility]). Patient has history of Type II diabetes [...] 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 10 mg once weekly by his supervisor corduroy cutting for polymyalgia rheumatica Blood pressure & heart [...] Lab Results Com (more content not included)... [facility] 08-17-2023 Note Attestation signed by Luis Daniel [...] eyes as of lately. He notes some dpqc-br-ociwknat blurriness to his vision that comes and goes. He states this started prior to even last seeing his inverter and clipper. He notes he last saw his inverter and clipper about 5-6 months ago and all was [...] by Gumaro Butler MS4 and Dr. Brunner [facility] 08-16-2023 Note Attestation signed by Too Thompson MD at 08/19/2023 9:50 PM I saw, interviewed, examined and evaluated the patient with Nephrology fellow Dr. Faith Matias. I participated in the medical management of the patient. I reviewed the fellow's note and agree with the fellow's documentation in the note. Too Thompson MD Faculty, Division of Nephrology, Department of Medicine, [facility] of [facility] & Life Sciences. [facility] Patient: Travis Coburn; 82 y.o. Visit date: 08/16/23 Reason for today's visit: New patient, new Acute kidney injury SUBJECTIVE: BACKGROUND: Travis Coburn is a 82 y.o. male has a past medical history of Diabetes mellitus ([facility]), Hypertension, Polymyalgia rheumatica ([facility]), and Psoriatic arthritis ([facility]). Patient has history of Type II diabetes [...] oriented to pe (more content not included)... [facility] 07-18-2023 Note Chief Complaint consultation for [...] smoker, quit more (more content not included)... [facility] Comment on above: Result Comment: Elec tronically Signed By: MAXX TURNER, Shaquille Steele\Date and Time Signed: 07/18/23 14:37 EST 06-09-2023 Note TC to patient notifi ed of nephrology referral has been sent. NS [facility] 06-09-2023 Note Pt called needing a referral for nephrology. Pt states he would like to set up an appointment in [place], discussed in telephone call with you. [facility] 03-20-2023 Hospital Discharge instructions Patient Education [...] urethra. Follow these instructions at home: Take cwxs-tlx-qerfsjl and prescription medicines only as told by [...] provider. Document Revised: 01/12/2022 Document Reviewed: 01/12/2022 [employer] Patient Education 2022 [employer]. Follow Up Care 08/23/2021 11:50:10 With:Nguyễn VELA MD, URL Address: [facility] [address], [place] [address]- [phone] When:Within 6 Month(s) [facility] Evaluation + Plan note Future Appointments Appointment Date:09/18/2023 12:45:00 PM Scheduled Provider:Nguyễn VELA MD [facility] Type:URO Office Visit [facility] Evaluation + Plan note Future Appointments Appointment Date:08/22/2023 01:40:00 PM Scheduled Provider:Shaquille LILLY MD [facility] Type: Procedure 30 Appointment Date:09/18/2023 12:45:00 PM Scheduled Provider:Nguyễn VELA MD [facility] Appointment Type:URO Office Visit [facility] Evaluation + Plan note Future Appointments Appointment Date:09/01/2023 01:40:00 PM Scheduled Provider:Shaquille LILLY MD [facility] App[facility] Type: Established 15 Appointment Date:09/18/2023 12:45:00 PM Scheduled Provider:Nguyễn VELA MD [facility] Type:URO Office Visit [facility] Evaluation + Plan note Future Appointments Appointment Date:09/13/2023 03:00:00 PM Scheduled Provider:Shaquille LILLY MD [facility] App[facility] Type: Established 15 Appointment Date:09/18/2023 12:45:00 PM Scheduled Provider:Nguyễn VELA MD [facility] Appointment Type:URO Office Visit [facility] Evaluation + Plan note Future Appointments Appointment Date:11/27/2023 11:30:00 AM Scheduled Provider:Nguyễn VELA MD Location:[facility] Appointment Type:URO Office Visit [facility] Evaluation note No assessment inform ation available [facility] Work Phone: Evaluation note Diagnosis 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- Primary Benign essential hypertension Essential hypertension, benign Mixed hyperlipidemia Former cigarette smoker Personal history of tobacco use, presenting hazards to health documented in this encounter [facility] Work Phone: Evaluation note* Diagnosis Cervicalgia- [...] complication, with long-term current use of insulin ([facility])- Primary 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 -[facility] [employer] 250 DO Work Phone: History of Present [...] will be reviewed at his next visit. [facility] [employer] 250 DO Work Phone: History of Present [...] recommendation and will attempt to implement our recommendations.[facility] 250 DO Work Phone: Hospital course Narrative No data available for this section [facility] Hospital Discharge instructions No data available for this section General Surgery [place] Progress note No data available for this section [facility] reason for referral (narrative)* Consultation (Routine) - Authorized Specialty Diagnoses / Procedures Referred By Aimee cruz Referred To Contact Cardiology Diagnoses 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 Procedures Follow Up In Cardiology Johnnie Deras MD [address] [place] [address] [address], [address] [address] Johnnie Deras MD [address] [place] [address] 2, [address] [address] Referral ID Status Reason Start Date Expiration Date V isits Requested Visits Authorized [id number] Authorized 11/27/2023 11/26/2024 1 1 [facility] Work Phone: Reason for visit Narrative* Rehabilitation - Outpatient (Routine) - Authorized Specialty Diagnoses / Procedures Referred By Aimee cruz Referred To Contact Physical Therapy Diagnoses Benign neoplasm of cranial nerves (CMS/HCC) Dizziness and giddiness Procedures MD PHYSICAL THERAPY EVALUATION LOW COMPLEX [address] [place] [address] [place] [address] Phone: tel: Shaquille Valencia, PT [address] [place] [address] Phone: tel: fax: Referral ID Status Reason Start Date Expiration Date V isits Requested Visits Authorized [id number] Authorized 03/06/2024 09/02/2024 25 29 [facility] HealthcareReason for visit Narrative* Rehabilitation - Outpatient (Routine) - Authorized Specialty Diagnoses / Procedures Referred By Contac t Referred To Contact Physical Therapy Diagnoses Benign neoplasm of cranial nerves (CMS/HCC) Dizziness and giddiness Procedures MD PHYSICAL THERAPY EVALUATION LOW COMPLEX [address] [place] [address] [place] [address] Phone: tel: Shaquille Valencia, PT [address] [place] [address] Phone: tel: fax: Referral ID Status Reason Start Date Expiration Date V isits Requested Visits Authorized [id number] Authorized 03/06/2024 07/09/2024 25 29 [facility] Healthcare Summary Purpose Family History No Family [...] section and content) DATE CREATED AUTHOR 11/30/2021 [facility] DATE CREATED AUTHOR AUTHOR'S ORGANIZ ATION 12/31/2021 [facility] DATE CREATED AUTHOR AUTHOR'S ORGANIZ ATION 01/01/2022 [employer] DATE CREATED AUTHOR AUTHOR'S ORGANIZ ATION 10/29/2022 [facility] DATE CREATED AUTHOR AUTHOR'S ORGANIZ ATION 10/30/2022 [facility] DATE CREATED AUTHOR AUTHOR'S ORGANIZ ATION 04/12/2023 [facility] DATE CREATED AUTHOR AUTHOR'S ORGANIZ ATION 04/14/2023 [facility] DATE CREATED AUTHOR AUTHOR'S ORGANIZ ATION 08/25/2023 [facility] DATE CREATED AUTHOR AUTHOR'S ORGANIZ ATION 11/14/2023 [facility] DATE CREATED AUTHOR AUTHOR'S ORGANIZ ATION 02/08/2024 [facility] DATE CREATED AUTHOR AUTHOR'S ORGANIZ ATION 06/05/2024 [facility] DATE CREATED AUTHOR AUTHOR'S ORGANIZ ATION 07/18/2024 [facility] EPIC Reason for Visit (unrecogniz ed section and content) Reason Comments Annual Exam 1yr Reason Comments Macular Degeneration Cataract Diabetic Eye Exam Specialty Diagnoses / Procedures Referred By Contanthony t Referred To Contact Physical Therapy Diagnoses Benign neoplasm of cranial nerves (CMS/HCC) Dizziness and giddiness Procedures MD PHYSICAL THERAPY EVALUATION LOW COMPLEX [address] [place] [address] [place] [address] Shaquille Valencia, PT [address] [place] [address] Referral ID Status Reason Start Date Expiration Date V isits Requested Visits Authorized [id number] Authorized 03/06/2024 09/02/2024 25 25 Referral ID Status Reason Start Date Expiration Date V isits Requested Visits Authorized [id number] Authorized 03/06/2024 09/02/2024 25 29 Reason Comments Rash Patient Care team informatio n (unrecognized section and content) Team Status: Active Member Role Status Dates Mayra Navarrete MD Primary Care Provider Active Team Status: Inactive Member Role Status Dates Mayra Navarrete MD Primary Care Provider Active Start: August 22, 2023 End: August 22, 2023 Shaquille Lilly MD [facility] Attending Provider Active Start: August 22, 2023 End: August 22, 2023 Lowerator Operator Relationship Specialty Start Date End Date Mayra Navarrete MD [address] [place] [address] PCP - General 12/08/21 Lowerator Operator Relationship Specialty Start Date End Date Mayra Navarrete MD [address] [place] [address] PCP - General Family Medicine 10/20/23 Lowerator Operator Relationship Specialty Start Date End Date Mayra Navarrete MD [address] [place] [address] PCP - General Family Medicine 10/20/23 Lowerator Operator Relationship Specialty Start Date End Date Mayra Navarrete MD [address] [place] [address] PCP - General Family Medicine 10/20/23 Lowerator Operator Relationship Specialty Start Date End Date Mayra Navarrete MD [address] [place] [address] PCP - General Family Medicine 10/20/23 Lowerator Operator Relationship Specialty Start Date End Date Mayra Navarrete MD [address] [place] [address] PCP - General Family Medicine 10/20/23 Lowerator Operator Relationship Specialty Start Date End Date Mayra Navarrete MD [address] [place] [address] PCP - General Family Medicine 10/20/23 Lowerator Operator Relationship Specialty Start Date End Date Mayra Navarrete MD [address] [place] [address] PCP - General Family Medicine 10/20/23 Lowerator Operator Relationship Specialty Start Date End Date Mayra Navarrete MD [address] [place] [address] PCP - General Family Medicine 10/20/23 Goals [...] BE BASED ON THE PRIMARY CLINICAL RECORDS. [employer] [facility]. provides no warranty or guarantee of the accuracy or completeness of information in this document.
[2024-07-19 12:37] LABS: Basophils Absolute Auto 0.1 10^3/uL (0.0-0.1); Basophils Percent Auto 0.5 % (0.2-2.0); Eosinophils Absolute Auto 0.1 10^3/uL (0.0-0.7); Eosinophils Percent Auto 1.4 % (0.9-7.0); Hematocrit 43.1 % (42.0-54.0); Hemoglobin 14.5 g/dL (14.0-18.0); Immature Granulocytes Abs Auto 0.06 10^3/uL (0.00-0.03); Immature Granulocytes Pct Auto 0.6 % (0.0-0.5); Lymphocytes Absolute Auto 1.7 10^3/uL (1.2-3.8); Lymphocytes Percent Auto 16.9 % (20.5-60.0); Mean Corpuscular HGB Conc 33.6 g/dL (29.9-35.2); Mean Corpuscular Hemoglobin 31.8 pg (25.9-34.0); Mean Corpuscular Volume 94.5 fL (80.0-94.0); Mean Platelet Volume 10.8 fL (9.5-13.5); Monocytes Absolute Auto 0.7 10^3/uL (0.3-0.8); Monocytes Percent Auto 7.3 % (1.7-12.0); Neutrophils Absolute Auto 7.1 10^3/uL (1.4-6.5); Neutrophils Percent Auto 73.3 % (43.0-75.0); Platelet Count 203 10^3/uL (150-450); Red Blood Count 4.56 10^6/uL (4.70-6.10); Red Cell Distribution Width 13.3 % (11.0-15.0); White Blood Count 9.7 10^3/uL (4.0-11.0)
[2024-07-19 13:05] LABS: Free T4 0.77 ng/dL (0.76-1.46)
[2024-07-19 13:40] LABS: Alanine Aminotransferase 31 U/L (16-63); Albumin Globulin Ratio 1.1; Albumin Level 3.7 g/dL (3.4-5.0); Alkaline Phosphatase 104 U/L (46-116); Anion Gap 10.1; Aspartate Amino Transferase 17 U/L (15-37); BUN Creatinine Ratio 10.6; Carbon Dioxide 30.8 mmol/L (21.0-32.0); Chloride 104 mmol/L (98-107); Estimated GFR (African America >60 (>=60 mL/min/1.73m^2); Estimated GFR (Non-African Ame 56 (>=60 mL/min/1.73m^2); Globulin 3.5 g/dL; Glucose 165 mg/dL (74-106); Potassium 3.9 mmol/L (3.5-5.1); Sodium 141 mmol/L (136-145); Thyroid Stimulating Hormone 2.075 uIU/mL (0.358-3.740); Total Protein 7.2 g/dL (6.4-8.2); Troponin I High Sensitivity 9.2 pg/mL (4.0-76.1)
[2024-07-20 22:54] LABS: Bilirubin Total 0.6 mg/dL (0.2-1.0)
== END 2024-07-19 12:04 | disposition home or self-care (01) ==
LOC: LAB 12:05
PROVIDERS: PCP Family Medicine; Visit Provider Family Medicine
DX: I10 Essential (primary) hypertension (principal)
CPT/HCPCS: 36415; 80053; 83880; 84439; 84443; 84484; 85025

== ENCOUNTER 2024-09-25 09:27 | Outpatient (OUT) | payer MEDICARE, OTHER, SELFPAY ==
--- OUTSIDE RECORDS SUMMARY | 2024-09-25 09:35 | XMS_ITS | CCD ---
Author Organization [facility] Care Team Providers Care Respiratory Manager Name Role Phone Roman Navarrete Unavailable Unavailable Unavailable Augusta MORA, Dr. Johnnie Adrian Attending Unavailable Hoy, Dr. Roman Olvera Primary Care Unavail able Liamuinn II, Dr. Johnnie Adrian Referring Unavailable Hoy, Dr. Roman Olvera Primary Care Unavail able Liamuinn II, Dr. Johnnie Adrian Referring Unavailable McGuinn II, Dr. Johnnie Adrina Attending Unavailable Hoy, Dr. Roman Olvera Primary Care Unavail able McGuinn II, [...] Unavailable HOY ., DR NUNEZ Consulting Unavailable [place], DR CJ Hernandes Consulting Unavailable HOY ., DR NUNEZ Admitting Unavailable HOY ., DR NUNEZ Attending [facility]IVAS Primary Care Unavailable LANDON ., DR NUNEZ Consulting Unavailable KWADWO CRUMP Admitting Unavailable KWADWO CRUMP Attending Unavailable LANDON ., DR NUNEZ Primary Care Unavailable KWADWO CRUMP Consulting Unavailable Roman Navarrete Primary Care Physician [phone] MICHELLE BARRY Attending Unavailable MICHELLE BARRY Admitting Unavailable ROMAN NAVARRETE Primary Care Unavailable ROMAN NAVARRETE Primary Care Unavailable MD Roman Navarrete Primary Care Provider [phone] MD Shaquille Lilly Attending Provider Roman Navarrete Primary Care Unavailable Shaquille Lilly Attending Unavailable NilShaquille jacobo Admitting Unavailable NILVikas, Shaquille Peter Attending Unavailable NILVikas, Shaquille Peter Attending Unavailable NILShaquille Jacobo Attending Unavailable Nguyễn VELA Attending Unavailable Nguyễn VELA Attending Unavailable NILShaquille Jacobo Attending Unavailable Roman Navarrete Referring Unavailable Roman Navarrete MD Primary Care Provider [phone] Roman Navarrete MD Primary Care Provider [phone] FATOU CUMMINS Referring Unavailable ROMAN NAVARRETE Primary Care Unavailable FATOU CUMMINS Referring Unavailable ROMAN NAVARRETE Primary Care Unavailable FATOU CUMMINS Referring Unavailable ROMAN NAVARRETE Primary Care Unavailable TOO THOMPSON Attending Unavailable LUIS DANIEL BRUNNER Attending Unavailable LUIS DANIEL BRUNNER Attending Unavailable TOO THOMPSON Attending Unavailable MOIRA MOY Attending Unavailable LAUREL, LORETA Referring Unavailable PETITTRADHA Emery Attending Unavailable RADHA MONTES Attending Unavailable YUE GARCIA Attending Unavailable ROMAN NAVARRETE Referring Unavailable TIMMISMEGAN Attending Unavailable ROMAN NAVARRETE Referring Unavailable TIMMEGAN BASSETT Attending Unavailable RADHA MONTES Attending Unavailable SHAQUILLE VALENCIA Attending Unavailable LAUREL, LORETA Referring Unavailable ERIKSHAQUILLE Attending Unavailable LAUREL, LORETA Referring Unavailable ERIKSHAQUILLE Attending Unavailable LAUREL, LORETA Referring Unavailable ERIKSHAQUILLE Attending Unavailable LAUREL, LORETA Referring Unavailable SHAQUILLE VALENCIA Attending Unavailable LAUREL, LORETA Referring Unavailable DEPKATEY ROLEL Attending Unavailable LAUREL, LORETA Referring Unavailable ERIKSHAQUILLE Attending Unavailable LAUREL, LORETA Referring Unavailable DEPOYKATEY Attending Unavailable LAUREL, LORETA Referring Unavailable PHILIPPE ROUSE Attending Unavailable KATEY SHAIKH Attending Unavailable LAUREL, LORETA Referring Unavailable GUZIMOIRA Chicas Attending Unavailable LAUREL, LORETA Referring Unavailable TAWANDA FARRAR Attending Unavailable MOIRA MOY Attending Unavailable LAUREL, LORETA Referring Unavailable PETITTRADHA Emery Attending Unavailable POCOSCJ Referring Unavailable POCCJ BECERRA Attending Unavailable CJ DANIELLE Referring Unavailable JOHNNIE DERAS Attending Unavailable ROMAN NAVARRETE Primary Care Unavailable LORETA BARRAGAN Attending Unavailable ROMAN NAVARRETE Primary Care Unavailable FATOU CUMMINS Attending Unavailable ROMAN NAVARRETE Primary Care Unavailable FATOU CUMMINS Referring Unavailable ROMAN NAVARRETE Primary Care Unavailable FATOU CUMMINS Attending Unavailable FATOU CUMMINS Referring Unavailable ROMAN NAVARRETE Primary Care Unavailable Allergies Allergy Classification Reported Allergen(s) Allergy Type Date of Onset Reaction(s) Facility (11 sources) bee pollen [facility]: (20 sources) Penicillins; Translations: [Penicillins] Allergy to drug (finding) 9 Anaphylaxis (disorder) [facility] (11 sources) Animal dander - Cats Allergy to substance (finding) [facility] y 250 DO Work Phone: (1 source) Penicillins Drug allergy (disorder) [facility] (8 sources) Latex; Translations: [Latex] Drug allergy 2 Unknown (qualifier value) [facility] (6 sources) Sulfonamides (Antibiotic); Translations: [sulfa drugs] Propensity to adverse reactions to drug [facility] [place] (19 sources) penciclovir; Translations: [penciclovir] Drug Allergy 1 Anaphylaxis [facility] (3 sources) Sulfonamides (Antibiotic); Translations: [Sulfa (Sulfonamide Antibiotics)] Allergy to substance 9 Anaphylaxis [facility] (1 source) Penicillins Drug allergy (disorder) 9 [facility] (12 sources) Bee pollen; Translations: [BEE POLLEN] Drug Allergy 4 Unknown [facility] Work Phone: (9 sources) Penicillins Drug Allergy 2 Anaphylaxis [facility] Work Phone: (20 sources) Cat Dander; Translations: [CAT DANDER] Allergy to substance 4 Unknown [facility] Work Phone: (20 sources) Bee pollen Allergy to substance 4 Unknown [facility] Work Phone: (20 sources) Penicillins Propensity to adverse reactions 4 [facility] Work Phone: (20 sources) Sulfonamides (Antibiotic) Drug Intolerance 4 [facility] (20 sources) Cat Hair Extract Allergy to substance 4 Unknown [facility] (11 sources) Fluorouracil; Translations: [FLUOROURACIL] Drug Allergy 5 [facility] (9 sources) Fluorouracil Drug Allergy 5 [facility] Medications Current Medications Medication Drug Class(es) [...] oral tablet (20 sources) Tricyclic Antidepressant Start: 07-14-2023 amitriptyline (Elavil) 25 MG tablet Take 25 mg by mouth as needed at bedtime for sleep 07/14/2023 Active Start: 09-13-2017 amitriptyline (Elavil) 50 MG tablet Take 50 mg by mouth as needed at bedtime 07/14/2023 Active Start: 03-26-2014 take 2 tablets by mo ut once daily at bedtime Elavil 25 mg Tab 50 mg = 2 tab(s), Oral, Once a day (at bedtime) Start Date: 03/26/14 Status: Ordered aspirin 81 mg oral tablet (20 sources) [...] 11:36am aspirin 81 MG ch ewable tablet Chew 2 (two) times a week Active aspirin 81 MG ch ewable tablet 1 (one) time each day at the same time. Active take 1 tablet by rasta th two times weekly Aspirin EC 81 MG Oral Tablet Delayed Release 1 tablet twice weekly Quantity: 25 Refills: 3 Ordered: 28-Dec-2021 Johnnie Deras MD Active benzoyl peroxide 50 mg/ml topical solution (2 sources) Start: 09-17-2024 benzoyl peroxi de 5 % external wash Indications: Folliculitis Apply to the face and scalp then rinse daily, 30 day supply 227 g 3 09/17/2024 Active calcium carbonate 1500 mg oral tablet (1 source) Start: 08-21-2019 take 1 mg by mouth once daily calcium (as carbonate) 600 mg oral tablet mg tab(s), Oral, Daily, Refills(s) 0 Start Date: 08/21/19 Status: Ordered calcium carbonate 1500 mg / cholecalciferol 200 unt oral capsule (3 sources) Vitamin D Start: 09-13-2017 take 1 tablet by mouth once daily Calcium Carbonate-Vitamin D3 (Calcium 600 + D(3)) 600 mg calcium- 200 unit Capsule Active 1 TAB PO Daily September 13, 2017 12:00am Start: 06-13-2016 End: 07-23-2024 take 1 capsule by mouth once daily calcium carbonate-vitamin D3 600 mg-10 mcg (400 unit) capsule Take 1 capsule by mouth once daily. 06/13/2016 07/23/2024 Discontinued (Therapy completed) carvedilol 6.25 mg oral tablet (20 sources) [...] 10 mg by mouth Daily 09/21/2023 Active ciclopirox 7.7 mg/ml topical cream (11 sources) Start: 07-23-2024 ciclopirox (Loprox) 0.77 % cream Indications: Other seborrheic dermatitis Apply thin layer to affected area once a day, 30 day supply 15 g 11 07/23/2024 Active doxycycline monohydrate 100 mg oral tablet [...] cream (20 sources) Nucleoside Metabolic Inhibitor Start: 02-01-2024 fluorouracil (Efudex) 5 % cream Indications: Actinic keratosis Apply to directed areas on the scalp, nose, and left cheek twice a day x 14 days. Dispense 30 day supply but only use for 14 days. 40 g 02/01/2024 Active fluticasone propionate 0.05 mg/actuat metered dose nasal spray (17 sources) Corticosteroid fluticasone (Flonase) 50 MCG/ACT nasal spray 1 spray in the morning. Active take 1 spray(s) nasal route once daily fluticasone (Flonase) 50 mcg/actuation nasal spray Administer 1 spray into each nostril once daily. Shake gently. Before first use, prime pump. After use, clean tip and replace cap. Active Folate 1 mg Tab (6 sources) Start: 08-23-2019 Folate 1 mg Ta [...] 0 Start Date: 07/14/23 Status: Ordered Start: 02-28-2023 End: 07-11-2024 take 1 tablet by mouth once daily glimepiride (Amaryl) 2 mg tablet Take 1 tablet (2 mg) by mouth once daily. 02/28/2023 Active take 1 tablet by rasta th [...] DO Active hydrocortisone 25 mg/ml topical cream (20 sources) Corticosteroid Start: 07-11-2024 End: 09-11-2024 hydrocortisone 2.5 % cream Indications: Rash and other nonspecific skin eruption Apply topically 2 (two) times a day as needed (Rash) Apply thin layer to affected areas bid prn for flares 30 g 3 07/11/2024 09/11/2024 Discontinued Start: 07-11-2024 hydrocortisone 2.5 % cream Apply topically 2 times a day as needed. 07/11/2024 Active ibuprofen 600 mg oral tablet (1 source) Nonsteroidal Anti-inflammatory Drug Start: 03-20-2023 take 600 mg by mouth every six hours ibuprofen 600 mg, Oral, q6hr Start Date: 03/20/23 Status: Ordered irbesartan 300 mg oral tablet (20 sources) Angiotensin 2 Receptor [place] Start: 05-30-2019 take 1 tablet by mouth once daily irbesartan (Avapro) 300 MG tablet Take 300 mg by mouth Daily 01/19/2024 Active Start: 09-13-2017 End: 05-30-2019 take 150 mg by mouth once daily Irbesartan Discontinued 150 MG PO Daily September 13, 2017 12:00am May 30, 2019 2:59pm MAGNESIUM BISGLYCINATE PO (9 sources) take 300 mg by mouth in the morning MAGNESIUM BISGLYCINATE PO Take 300 mg by mouth in the morning and 300 mg in the evening. Active magnesium oxide-Mg AA chelate (Magnesium, oxide/AA chelate,) 300 mg capsule (8 sources) take 1 capsule by mouth twice daily magnesium oxide-Mg AA chelate (Magnesium, oxide/AA chelate,) 300 mg capsule Take 1 capsule (300 mg) by mouth 2 times a day. Active 24 hr metFORMIN hydrochloride 500 mg extended release oral tablet (13 sources) Biguanide Start: 05-30-2019 take 500 mg by mouth twice daily Metformin Active 500 MG PO Twice daily May 30, 2019 12:00am Start: 06-29-2018 take 500 mg by mouth twice jessica ly Glucophage 500 mg, Oral, BID, Refills(s) 0, Blood glucose Start Date: 06/29/18 Status: Ordered take 2 tablets by [facility] once daily metFORMIN HCl - 500 MG [...] Ordered Start: 11-21-2022 take 4 tablets by [facility] every week 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 (Trexall) 2.5 mg tablet [...] Bedtime, # 30 tab(s), Refills(s) 8, Pharmacy: [facility]/pharmacy #[id number], 175, cm, 03/20/23 14:33:00 EDT, [...] Start Date: 03/20/23 Status: Ordered Start: 03-12-2023 End: 07-26-2024 tiZANidine (Zanaflex) 4 MG t ablet Take 2 mg by mouth as needed at bedtime 03/12/2023 07/26/2024 Discontinued (Therapy completed) vitamin b12 1 mg oral tablet (20 [...] take 1 puff(s) by inhalation twice daily Budesonide-Formote rol (Symbicort) 160-4.5 mcg/actuation Hfa Aerosol Inhaler Discontinued 2 PUFF INHALATION Twice daily September 13, 2017 12:00am May 30, 2019 3:02pm Calcium (11 sources) Phosphate Binder, Calcium Calcium + D TABS TAKE 1 TABLET DAILY. Quantity: 0 Refills: 0 Ordered: 08-Dec-2021 DO Active clindamycin 300 mg oral capsule (18 sources) Lincosamide Antibacterial Start: 06-30-2024 End: 07-26-2024 take 1 capsule by mouth in the morning, then take 1 capsule by mouth in the evening, then take 1 capsule by mouth at bedtime clindamycin (Cleocin) 300 MG capsule Take 300 mg by mouth in the morning and 300 mg in the evening and 300 mg before bedtime. 06/30/2024 07/26/2024 Discontinued (Therapy completed) Start: 05-30-2024 End: 07-26-2024 clindamycin (Clindagel) 1 % gel APPLY TO THE AFFECTED AREA(S) topically TWICE DAILY 05/30/2024 07/26/2024 Discontinued (Therapy completed) DULoxetine 30 mg delayed release oral capsule (9 sources) Serotonin and Norepinephrine Reuptake Inhibitor take 1 tablet by mouth once daily Cymbalta 30 MG Oral Capsule Delayed Release Particles one tablet daily Quantity: 0 Refills: 0 Ordered: 28-Dec-2021 DO Active hyoscyamine sulfate 0.125 mg sublingual tablet (20 sources) End: hyoscyamine (Levsin) 0.125 MG SL tablet DISSOLVE 1 TABLET UNDER TONGUE 4 TIMES DAILY NEEDED FOR ABDOMINAL PAIN 07/26/2024 Discontinued (Therapy completed) lansoprazole 30 mg delayed release oral capsule (20 sources) Proton Pump Inhibitor Start: End: take 1 capsule by mouth in the morning lansoprazole (Prevacid) [address] capsule Take 30 mg by mouth in the morning and 30 mg before bedtime. 03/17/2022 07/26/2024 Discontinued (Therapy completed) Magnesium (11 sources) Magnesium CAPS T SOURAV 70 MG CAPSULES 1 DAILY Quantity: 0 Refills: 0 Ordered: 08-Dec-2021 DO Active metroNIDAZOLE 7.5 mg/ml topical lotion (4 sources) Nitroimidazole Antimicrobial Start: End: metroNIDAZOLE (Metrolotion) 0.75 % lotion lotion Indications: Other rosacea Apply thin layer to face, once daily, 30 day supply 59 mL 11 07/23/2024 07/26/2024 Discontinued (Therapy completed) mupirocin 0.02 mg/mg topical ointment (9 sources) RNA Synthetase Inhibitor Antibacterial Start: 024 End: mupirocin (Bactroban) 2 % ointment Apply 1 application topically in the morning and 1 application before bedtime. 06/30/2024 07/26/2024 Discontinued (Therapy completed) perflutren protein A microsphere (Optison) injection 0.5 mL (1 source) Start: End: 0.5 mL, intravenous, Once, On Luz Elena 07/25/24 at 1515, For 1 dose regadenoson (Lexiscan) injection 0.4 mg (1 source) Start: End: 0.4 mg, intravenous, Once, On Mon08/06/24 at 1200, For 1 dose sildenafil 20 mg oral tablet (1 source) Phosphodiesterase 5 Inhibitor Start: take 5 tablets by mouth once daily sildenafil 20 mg oral tablet 20 mg = 1 tab(s), Oral, Daily, Take one hour prior to sexual intercourse, do not exceed 5 tabs at once, # 30 tab(s), Refills(s) 0 Start Date: 08/21/19 Status: Ordered Tc-99m tetrofosmin (Myoview) injection 30 millicurie (2 sources) Start: End: 30 millicurie, intravenous, Once in imaging, Starting on Mon08/07/24 at 1125, For 1 dose, Administer 45 to 90 minutes prior to imaging unless otherwise indicated. Start: 08-06-2024 End: 08-06-2024 30 millicurie, intravenous, Once in imaging, Starting on Mon08/06/24 at 1152, For 1 dose, Administer 45 to 90 minutes prior to imaging unless otherwise indicated. Vitamin B 12 TABS (11 sources) Vitamin [...] [Other and unspecified angina pectoris] Onset: 4 Resolved: 5 11-27-2023 Chronic Deficiency and other anemia (1 source) Anemia, unspecified; Translations: [ANEMIA UNSPECIFIED] Onset: 3 Episodic Diabetes mellitus with complications (2 sources) Other specified diabetes mellitus with other specified complication; Translations: [Other specified diabetes mellitus with other specified complication] Onset: 4 Chronic Diabetes mellitus without complication (20 sources) Type [...] [Benign essential hypertension] Onset: 4 07-14-2023 Chronic Hyperplasia of prostate (20 sources) Benign prostatic hyperplasia without lower urinary tract symptoms; Translations: [Benign prostatic hypertrophy with outflow obstruction] Onset: 2 Chronic Malaise and fatigue (20 sources) Fatigue; Translations: [Other malaise and fatigue] Onset: 3 Episodic Osteoarthritis (20 sources) Arthritis of right knee; Translations: [Unilateral primary osteoarthritis, right knee] Onset: 4 12-21-2023 Chronic Other aftercare (2 sources) Removal of sutures done; Translations: [Encounter for removal of sutures] 09-17-2024 Episodic Other and unspecified benign neoplasm (20 sources) Acoustic neuroma; Translations: [Benign neoplasm of cranial nerves] Onset: 4 01-23-2024 Chronic Other and unspecified benign neoplasm (2 sources) Benign neoplasm of cranial nerves; Translations: [Benign neoplasm of cranial nerves (Multi)] Onset: 4 Chronic Other and unspecified benign neoplasm (2 sources) Skin lesion; Translations: [Hemangioma of skin and subcutaneous tissue] 07-23-2024 Episodic Other connective tissue disease (20 sources) Polymyalgia rheumatica; Translations: [Polymyalgia rheumatica] Onset: 2 08-23-2019 Chronic Other connective tissue disease (1 source) Polymyalgia rheumatica; Translations: [Polymyalgia rheumatica] Onset: 2 Chronic Other connective tissue disease (2 sources) Pain in right hand; Translations: [Pain in right hand] 07-26-2024 Episodic Other connective tissue disease (2 sources) Dupuytren's contracture; Translations: [Palmar fascial fibromatosis [Dupuytren]] 07-26-2024 Episodic Other ear and sense organ disorders (20 sources) Otitis externa; Translations: [Otitis externa in other diseases classified elsewhere, unspecified ear] Onset: 4 12-21-2023 Chronic Other ear and sense organ disorders (20 sources) Sensorineural hearing loss, bilateral; Translations: [Sensorineural hearing loss, bilateral] Onset: 4 12-21-2023 Chronic Other ear and sense organ disorders (10 sources) Sensorineural hearing loss, unilateral, right ear, with unrestricted hearing on the contralateral side; Translations: [Sensorineural hearing loss, unilateral] Onset: 4 02-06-2024 Chronic Other gastrointestinal disorders (1 source) Irritable [...] Other inflammatory condition of skin (2 sources) Rosacea; Translations: [Other rosacea] 07-23-2024 Chronic Other inflammatory condition of skin (2 sources) Arthropathic psoriasis, unspecified; 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, unspecified] Onset: 4 Chronic Other inflammatory condition of skin (4 sources) Seborrheic dermatitis; Translations: [Other seborrheic dermatitis] 07-23-2024 Episodic Other liver diseases (1 source) Fatty (change of) liver, not elsewhere classified; Translations: [FATTY CHANGE LIVER NEC] Onset: 2 Chronic Other liver diseases (20 sources) Steatosis of liver; Translations: [Fatty (change of) liver, not elsewhere classified] Onset: 4 12-01-2020 Chronic Other lower respiratory disease (11 sources) Dyspnea; Translations: [Other respiratory abnormalities] Episodic Other lower respiratory disease (4 sources) Shortness of breath; Translations: [Shortness of breath] Onset: 4 Episodic Other lower respiratory disease (2 sources) Other forms of dyspnea; Translations: [Other forms of dyspnea] Onset: 5 Episodic Other male genital disorders (2 sources) [...] Chronic Other nutritional; endocrine; and metabolic disorders (8 sources) Body mass index 30+ - obesity; Translations: [Body mass index (BMI) 35.0-35.9, adult] Onset: 5 12-01-2020 Chronic Other nutritional; endocrine; and metabolic disorders (2 sources) Body mass index (BMI) 35.0-35.9, adult; Translations: [Body mass index (BMI) 35.0-35.9, adult] Onset: 5 Chronic Other skin disorders (4 sources) Eruption; Translations: [Rash and other nonspecific skin eruption] 07-11-2024 Episodic Other skin disorders (2 sources) Lentiginosis; Translations: [Other melanin hyperpigmentation] 07-23-2024 Episodic Other skin disorders (2 sources) Seborrheic keratosis; Translations: [Other seborrheic keratosis] 07-23-2024 Episodic Other skin disorders (4 sources) Epidermoid cyst; Translations: [Epidermal cyst] 07-23-2024 Episodic Other skin disorders (2 sources) Actinic keratosis; Translations: [Actinic keratosis] 07-23-2024 Episodic Other skin disorders (4 sources) Inflamed seborrheic keratosis; Translations: [Inflamed seborrheic keratosis] 07-23-2024 Episodic Other skin disorders (2 sources) Folliculitis; Translations: [Follicular disorder, unspecified] 09-17-2024 Episodic Kimberly-; endo-; and myocarditis; cardiomyopathy (except that caused by tuberculosis or sexually transmitted disease) (12 sources) Cardiomyopathy; Translations: [Cardiomyopathy, unspecified] Onset: 5 07-23-2024 Chronic Residual codes; unclassified (20 sources) Sleep apnea; Translations: [Unspecified sleep apnea] Onset: 4 07-14-2023 Chronic Residual codes; unclassified (2 sources) Obstructive sleep apnea syndrome; Translations: [Obstructive sleep apnea (adult) (pediatric)] 07-23-2024 Chronic Residual codes; unclassified (2 sources) Obstructive sleep apnea (adult) (pediatric); Translations: [Obstructive sleep apnea (adult) (pediatric)] Onset: 4 Chronic Residual codes; unclassified (1 source) Encounter for procedure for purposes other than remedying health state, unspecified; Translations: [Encounter for procedure for purposes other than remedying health state, unspecified] Onset: 3 Episodic Retinal detachments; defects; vascular occlusion; and retinopathy (20 sources) Nonexudative age-related macular degeneration; Translations: [Nonexudative age-related macular degeneration, bilateral, early dry stage] Onset: 3 01-30-2023 Chronic Skin and subcutaneous tissue infections (2 sources) Impetigo; Translations: [Impetigo, unspecified] 09-10-2024 Episodic Spondylosis; intervertebral disc disorders; other back problems (20 sources) Degeneration of cervical intervertebral disc; Translations: [Other cervical disc degeneration, unspecified cervical region] Onset: 4 12-21-2023 Chronic Unclassified (1 source) Drug therapy finding 08-23-2019 Unclassified (1 source) group home (current) use of antimetabolite agent; Translations: [long term (current) use of antimetabolite agent] Onset: 2 [...] [Dizziness and giddiness] Onset: 08-24-2023 08-24-2023 Episodic Fluid and electrolyte disorders (2 sources) Other disorders of electrolyte and fluid balance, not elsewhere classified; Translations: [Other disorders of electrolyte and fluid balance, not elsewhere classified] Onset: 04-17-2024 Episodic Genitourinary symptoms and ill-defined conditions (20 [...] of prostate, unspecified] Onset: 08-16-2023 08-21-2019 Episodic Mycoses (20 sources) Superficial mycosis; Translations: [...] 05-21-2022 12-21-2023 Episodic Other aftercare (20 sources) group home 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; Translations: [long term 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] Onset: 05-27-2022 12-21-2023 Episodic Other ear and sense organ disorders [...] exertion; Translations: [Shortness of breath] Onset: 08-24-2023 Resolved: 07-23-2024 08-24-2023 Episodic Other nervous system disorders (20 [...] unspecified, uncomplicated] Onset: 10-11-2023 12-21-2023 Episodic Unclassified (9 sources) Onset: 11-27-2023 Resolved: 08-20-2024 11-27-2023 Unclassified (1 source) long term (current) use of antimetabolite agent; Translations: [group home (current) use of antimetabolite agent] Onset: 09-10-2024 Results Test Name Value Interpretation Reference Range Facil ity No Panel Informationon 09-17 [facility] CBC WITH AUTO DIFFERENTIALon 09-10-2024 Basophils (Bld) [#/Vol] 0.05 10*3/uL Normal 0.00-0.20 [facility] Comment on above: Performed By: #### L [id number] #### [facility] ([facility]) [address] [place] [address] Basophils/100 WBC (Bld) 0.6 % Normal 0.0-1.0 [facility] Comment on above: Performed By: #### L [id number] #### [facility] ([facility]) [address] [place] [address] Eosinophils (Bld) [#/Vol] 0.17 10*3/uL Normal 0.00-0.50 [facility] Comment on above: Performed By: #### L [id number] #### [facility] ([facility]AKER) [address] [place] [address] Eosinophils/100 WBC (Bld) 1.9 % Normal 0.0-6.0 [facility] Comment on above: Performed By: #### L [id number] #### [facility] ([facility]) [address] [place] [id number] Erythrocyte distribution width (RBC) [Ratio] 13.3 % Normal 11.5-15.0 [facility] Comment on above: Performed By: #### L [id number] #### [facility] ([facility]) [address] [place] [address] ERYTHROCYTE MEAN CORPUSCULAR HEMOGLOBIN CONCENTRATION (G/DL) BY AUTOMATED 33.1 g/dL Normal 32.0-35.0 [facility] Comment on above: Performed By: #### L [id number] #### [facility] ([facility]) [address] [place] [address] Hematocrit (Bld) [Volume fraction] 44.7 % Normal 39.0-55.0 [facility] Comment on above: Performed By: #### L [id number] #### [facility] ([facility]) [address] [place] [address] Hemoglobin (Bld) [Mass/Vol] 14.8 g/dL Normal 13.0-17.0 [facility] Comment on above: Performed By: #### L [id number] #### [facility] ([facility]) [address] [place] [address] Immature granulocytes (Bld) [#/Vol] 0.05 10*3/uL Normal 0.00-0.20 [facility] Comment on above: Performed By: #### L [id number] #### [facility] ([facility]) [address] [place] [address] Immature granulocytes/100 WBC (Bld) 0.6 % Normal 0.0-1.0 [facility] Comment on above: Performed By: #### L [id number] #### [facility] ([facility]) [address] [place] [address] Lymphocytes (Bld) [#/Vol] 1.81 10*3/uL Normal 1.20-4.00 [facility] Comment on above: Performed By: #### L [id number] #### [facility] ([facility]) [address] [place] [address] Lymphocytes/100 WBC (Bld) 20.6 % Normal 20.0-45.0 [facility] Comment on above: Performed By: #### L [id number] #### [facility] ([facility]) [address] [place] [address] MCH (RBC) [Entitic mass] 31.1 pg Normal 27.0-33.0 [facility] Comment on above: Performed By: #### L [id number] #### [facility] ([facility]) [address] [place] [address] MCV (RBC) [Entitic vol] 93.9 fL Normal 82.0-98.0 [facility] Comment on above: Performed By: #### L [id number] #### [facility] ([facility]) [address] [place] [address] Monocytes (Bld) [#/Vol] 0.64 10*3/uL Normal 0.10-1.00 [facility] Comment on above: Performed By: #### L [id number] #### [facility] ([facility]) [address] [place] [address] Monocytes/100 WBC (Bld) 7.3 % Normal 5.0-12.0 [facility] Comment on above: Performed By: #### L [id number] #### [facility] ([facility]) [address] [place] [address] Neutrophils (Bld) [#/Vol] 6.06 10*3/uL Normal 1.60-7.60 [facility] Comment on above: Performed By: #### L [id number] #### [facility] ([facility]) [address] [place] [address] Neutrophils/100 WBC (Bld) 69.0 % Normal 40.0-72.0 [facility] Comment on above: Performed By: #### L [id number] #### [facility] ([facility]) [address] [place] [address] NRBC (PER 100 WBCS) BY AUTOMATED COUNT 0.0 % Normal 0 [facility] Comment on above: Performed By: #### L [id number] #### [facility] ([facility]) [address] [place] [address] PLATELETS (10*3/UL) IN BLOOD AUTOMATED COUNT 187 10*3/uL Normal 150-400 [facility] Comment on above: Performed By: #### L [id number] #### [facility] ([facility]) [address] [place] [address] RBC (Bld) [#/Vol] 4.76 10*6/uL Normal 4.20-5.70 [facility] Comment on above: Performed By: #### L [id number] #### [facility] ([facility]) [address] [place] [address] WBC (Bld) [#/Vol] 8.78 10*3/uL Normal 4.00-10.60 [facility] Comment on above: Performed By: #### L [id number] #### [facility] ([facility]) [address] [place] [address] COMPREHENSIVE METABOLIC PANE [place] 09-10-2024 Albumin [Mass/Vol] 4.3 g/dL Normal 3.5-5.7 [facility] Comment on above: Performed By: #### L [id number] #### [facility] ([facility]) [address] [place] [address] ALP [Catalytic activity/Vol] 89 U/L Normal 34-104 [facility] Comment on above: Performed By: #### L [id number] #### [facility] ([facility]) [address] [place] [address] ALT [Catalytic activity/Vol] 18 U/L Normal 7-52 [facility] Comment on above: Performed By: #### L [id number] #### [facility] ([facility]) [address] [place] [address] Anion gap [Moles/Vol] 11 mmol/L Normal 7-20 [facility] Comment on above: Performed By: #### L [id number] #### [facility] ([facility]) [address] [place] [address] AST [Catalytic activity/Vol] 17 U/L Normal 13-39 [facility] Comment on above: Performed By: #### L [id number] #### [facility] ([facility]) [address] [place] [address] Bilirubin [Mass/Vol] 0.6 mg/dL Normal 0.3-1.0 [facility] Comment on above: Performed By: #### L [id number] #### [facility] ([facility]) [address] [place] [address] Calcium [Mass/Vol] 9.6 mg/dL Normal 8.6-10.3 [facility] Comment on above: Performed By: #### L [id number] #### [facility] ([facility]) [address] [place] [address] Chloride [Moles/Vol] 103 mmol/L Normal 98-107 [facility] Comment on above: Performed By: #### L [id number] #### [facility] ([facility]) [address] [place] [address] CO2 [Moles/Vol] 27 mmol/L Normal 21-31 [facility] Comment on above: Performed By: #### L [id number] #### [facility] ([facility]) [address] [place] [address] Creatinine [Mass/Vol] 1.21 mg/dL Normal 0.70-1.30 [facility] Comment on above: Performed By: #### L [id number] #### [facility] ([facility]) [address] [place] [address] GLOMERULAR FILTRATION RATE ML/MIN/1.73 SQ M.PREDICTED 59.8 mL/min/1.73m*2 Low >60.0 [facility] Comment on above: Result Comment: The [facility]???s estimated glomerular filtration rate (eGFR) will [...] #### L [id number] #### [facility] ([facility]) [address] [place] [address] Glucose [Mass/Vol] 108 mg/dL High 70-100 [facility] Comment on above: Performed By: #### L [id number] #### [facility] ([facility]) [address] [place] [address] Potassium [Moles/Vol] 4.4 mmol/L Normal 3.5-5.1 [facility] Comment on above: Performed By: #### L [id number] #### [facility] ([facility]) [address] [place] [address] Protein [Mass/Vol] 7.1 g/dL Normal 6.0-8.3 [facility] Comment on above: Performed By: #### L [id number] #### [facility] ([facility]) [address] [place] [address] Sodium [Moles/Vol] 137 mmol/L Normal 136-145 [facility] Comment on above: Performed By: #### L [id number] #### [facility] ([facility]) [address] [place] [address] Urea nitrogen [Mass/Vol] 21 mg/dL Normal 7-25 [facility] Comment on above: Performed By: #### L [id number] #### [facility] ([facility]) [address] [place] [address] UREA NITROGEN/CREATININE (MASS RATIO) IN SER/PLAS 17.4 Normal [facility] Comment on above: Performed By: #### L [id number] #### [facility] ([facility]) [address] [place] [address] Follow-Upon 09-10-2024 Follow-Up [id number] AlmasTravis stephens 1940 [facility] Provider Department Center 09/10/2024 [facility] Eloise Heal No family history on file Level of Service:75732 [place] OFFICE/OUTPATIENT ESTABLISHED MOD MDM 30 MIN Reason for Visit and Comments: Psoriatic arthropathy [Other] Follow-up [692144] Normal [facility] HEMOGLOBIN A1Con 09-10-2024 Glucose [Mass/Vol] 151 mg/dL Normal [facility] Comment on above: Performed By: #### L [id number] #### [facility] ([facility]) [address] [place] [address] HbA1c (Bld) [Mass fraction] 6.9 % High 4.0-6.0 [facility] Comment on above: Performed By: #### L [id number] #### [facility] ([facility]) [address] [place] [address] [place] 09-10-2024 Lab [id number] AlmasTravis Perry 1940 [facility] Provider Department Center 09/10/2024 2245-[facility] OPD LAB RESOURCE [facility] OPD CO Medical C No family history on file [facility] No Panel Informationon 09-10 Type of biopsy: punch Informed consent: discussed and consent obtained Informed consent comment: The risks and benefits were discussed. Risks include, but are not limited to, bleeding, infection, scarring, pain, & nerve damage. An opportunity to ask questions prior to the procedure was permitted and questions were answered. Patient was prepped and draped in usual sterile fashion: Area cleansed with alcohol. Anesthesia: the lesion was anesthetized in a standard fashion Anesthetic: 1% lidocaine w/ epinephrine 1-100,000 buffered w/ 8.4% NaHCO3 Punch biopsy size: A biopsy by punch method was performed using a dermal punch. Suture type: nylon Suture type comment: Hemostasis was achieved with suture. Hemostasis achieved with: suture Outcome: patient tolerated procedure well Post-procedure details: sterile dressing applied and wound care instructions given Post-procedure details comment: Emphasized the need to contact clinic for any signs of infection, uncontrollable bleeding, or complications. Dressing type: bandage Additional details: Amount of lidocaine used: 0.5 cc Number of sutures used: 1 Specimen sent for: H&E Photo taken [facility] Heart Perfusion W stress and W radionuclide Estefany 08-07-2024 Normal Lexiscan Myoview cardiac perfusion stress test. No evidence of ischemia or myocardial infarction by perfusion imaging. Normal left ventricular systolic function, ejection fraction 57%. No change when compared to previous study. Signed by: Abdoul Timmons 08/07/2024 5:59 PM Dictation workstation: [id number] MMODAL Interpreted By: Abdoul Timmons and Giannuzzi Michael STUDY: MYOCARDIAL PERFUSION STRESS TEST WITH LEXISCAN Performing facility: [facility], [address] [place] [address], [address], [address] Provider: Fatou Cummins RN, RN LACTATION CONSULTANT PCP: Dr. Mindy Navarrete Supervising provider: Naomi Hood MD, FACC INDICATION: SOBOE Fatigue HISTORY: Gender: M; Age: 83 y/o ; Height: HT 175.3 cm cm; Weight: WT 111.585 kg kg. CAD; High Cholesterol; HTN; Arrhythmias; SOB; Fatigue; Quit smoking 33 years ago. Cardiac catheterization on 2018. COMPARISON: Previous nuclear testing completed [id number] at 2021. ACCESSION NUMBER(S): [id number] ORDERING CLINICIAN: FATOU CUMMINS TECHNIQUE: TWO DAY protocol. Stress injection: Date:08-06-24, 32.7 mCi of Myoview IV 20 seconds after rapid injection of Lexiscan. Rest injection: Date: 08-07-24, 34.8 mCi of Myoview IV at rest. The patient had a rapid injection of 0.4 mg of Lexiscan IV over 10 seconds. Imaging was performed by gatedSOB tomographic technique. Reason for Lexiscan: SOB STRESS TEST DATA: Resting heart rate was 76 BPM. Resting blood pressure was 136/82 mmHg. Peak blood pressure was 124/76 mmHg. Peak heart rate was 100 BPM. TEST TERMINATED DUE TO: Protocol completed FINDINGS: STRESS TEST RESULTS: Resting electrocardiogram revealed normal sinus rhythm. There were no significant ischemic ECG changes or dysrhythmias. The patient did not have chest pains/symptoms during procedure. There was a normal recovery phase. IMAGING RESULTS: Image quality was good. Rest and stress tomographic images were reviewed and revealed normal perfusion without evidence of ischemia, myocardial infarction, or left ventricular dilatation with stress. Overall left ventricular systolic function appeared to be normal without regional wall motion abnormalities. Ejection fraction was 57%. TID is 0.92 and is normal. There were no evidence of breast/motion/diaphr agmatic attenuation artifact. MMODAL Abdoul Timmons MD - 08/07/2024 Interpreted By: Abdoul Timmons and Giannuzzi Michael STUDY: MYOCARDIAL PERFUSION STRESS TEST WITH LEXISCAN Performing facility: [facility], [address] [place] [address], [address], [address] Provider: Fatou Cummins RN, RN LACTATION CONSULTANT PCP: Dr. Mindy Navarrete Supervising provider: Naomi Hood MD, FACC INDICATION: SOBOE Fatigue HISTORY: Gender: M; Age: 83 y/o ; Height: HT 175.3 cm cm; Weight: WT 111.585 kg kg. CAD; High Cholesterol; HTN; Arrhythmias; SOB; Fatigue; Quit smoking 33 years ago. Cardiac catheterization on 2018. COMPARISON: Previous nuclear testing completed at 2021. ACCESSION NUMBER(S): [id number] ORDERING CLINICIAN: FATOU CUMMINS TECHNIQUE: TWO DAY protocol. Stress injection: Date:08-06-24, 32.7 mCi of Myoview IV 20 seconds after rapid injection of Lexiscan. Rest injection: Date: 08-07-24, 34.8 mCi of Myoview IV at rest. The patient had a rapid injection of 0.4 mg of Lexiscan IV over 10 seconds. Imaging was performed by gatedSOB tomographic technique. Reason for Lexiscan: SOB STRESS TEST DATA: Resting heart rate was 76 BPM. Resting blood pressure was 136/82 mmHg. Peak blood pressure was 124/76 mmHg. Peak heart rate was 100 BPM. TEST TERMINATED DUE TO: Protocol completed FINDINGS: STRESS TEST RESULTS: Resting electrocardiogram revealed normal sinus rhythm. There were no significant ischemic ECG changes or dysrhythmias. The patient did not have chest pains/symptoms during procedure. There was a normal recovery phase. IMAGING RESULTS: Image quality was good. Rest and stress tomographic images were reviewed and revealed normal perfusion without evidence of ischemia, myocardial infarction, or left ventricular dilatation with stress. Overall left ventricular systolic function appeared to be normal without regional wall motion abnormalities. Ejection fraction was 57%. TID is 0.92 and is normal. There were no evidence of breast/motion/diaphr agmatic attenuation artifact. IMPRESSION: Normal Lexiscan Myoview cardiac perfusion stress test. No evidence of ischemia or myocardial infarction by perfusion imaging. Normal left ventricular systolic function, ejection fraction 57%. No change when compared to previous study. Signed by: Abdoul Timmons 08/07/2024 5:59 PM Dictation workstation: [id number] [facility] Work Phone: [place] Heart Perfusion W stress and W radionuclide IVOrdered By: Abdoul Timmons on 08-07-2024 [facility] Work Phone: [place] Heart Perfusion W stress and W radionuclide Estefany 08-06-2024 Radiology Study observation (narrative) [facility] Work Phone: NUCLEAR STRESS TESTon 2024 NUCLEAR STRESS TEST Interpreted By: Abdoul Timmons and Giannuzzi Michael STUDY: MYOCARDIAL PERFUSION STRESS TEST WITH LEXISCAN Performing facility: [facility], [address] [place] [address], [address], [place] [id number] [facility] Provider: Fatou Cummins RN, RN LACTATION CONSULTANT PCP: Dr. Mindy Navarrete Supervising provider: Naomi Hood MD, FACC INDICATION: SOBOE Fatigue HISTORY: Gender: M; Age: 83 y/o ; Height: HT 175.3 cm cm; Weight: WT 111.585 kg kg. CAD; High Cholesterol; HTN; Arrhythmias; SOB; Fatigue; Quit smoking 33 years ago. Cardiac catheterization on 2018. COMPARISON: Previous nuclear testing completed at 2021. ACCESSION NUMBER(S): [id number] ORDERING CLINICIAN: FATOU CUMMINS TECHNIQUE: TWO DAY protocol. Stress injection: Date:08-06-24, 32.7 mCi of Myoview IV 20 seconds after rapid injection of Lexiscan. Rest injection: Date: 08-07-24, 34.8 mCi of Myoview IV at rest. The patient had a rapid injection of 0.4 mg of Lexiscan IV over 10 seconds. Imaging was performed by gatedSOB tomographic technique. Reason for Lexiscan: SOB STRESS TEST DATA: Resting heart rate was 76 BPM. Resting blood pressure was 136/82 mmHg. Peak blood pressure was 124/76 mmHg. Peak heart rate was 100 BPM. TEST TERMINATED DUE TO: Protocol completed FINDINGS: STRESS TEST RESULTS: Resting electrocardiogram revealed normal sinus rhythm. There were no significant ischemic ECG changes or dysrhythmias. The patient did not have chest pains/symptoms during procedure. There was a normal recovery phase. IMAGING RESULTS: Image quality was good. Rest and stress tomographic images were reviewed and revealed normal perfusion without evidence of ischemia, myocardial infarction, or left ventricular dilatation with stress. Overall left ventricular systolic function appeared to be normal without regional wall motion abnormalities. Ejection fraction was 57%. TID is 0.92 and is normal. There were no evidence of breast/motion/diaphr agmatic attenuation artifact. IMPRESSION: Normal Lexiscan Myoview cardiac perfusion stress test. No evidence of ischemia or myocardial infarction by perfusion imaging. Normal left ventricular systolic function, ejection fraction 57%. No change when compared to previous study. Signed by: Abdoul Timmons 08/07/2024 5:59 PM Dictation workstation: [id number] [facility] 36on 08-01-2024 36 LV 02/15/24 UPCOMING 09/10/24 LABS 02/15/24 CMP, CBC [facility] [place] 08-01-2024 Refill [id number] Travis Coburn 1940 [place] Date Provider Department Center 08/01/2024 Diane-[facility] RHEUM Eloise Heal No family history on file Reason for Visit and Comments: Med Refill [[id number]] Normal [facility] TRANSTHORACIC ECHO (TTE) COM PLETEon 07-25-2024 TRANSTHORACIC ECHO (TTE) COMPLETE [facility] [address] [facility] [address], [address], [place] [address] TRANSTHORACIC ECHOCARDIOGRAM REPORT Patient Name: TRAVIS COBURN Reading Physician: [id number] Abdoul Timmons MD Study Date: 07/25/2024 Ordering Provider: [id number] FATOU CUMMINS MRN/PID: [id number] Fellow: Nurse: Ector Cornelius RN Date of /Age: 4 1940 / 83 years Medicare Specialist: Alexandra Weiss RDCS, RVT Gender Assigned at M Additional Staff: : Height: 175.26 cm Admit Date: Weight: 111.59 kg Admission Status: BSA / BMI: 2.26 m2 / 36.33 Department Location: [facility] kg/m2 Heart [place] Blood Pressure: 126 /74 mmHg Study Type: TRANSTHORACIC ECHO (TTE) COMPLETE Diagnosis/ICD: Shortness of breath-R06.02; Essential (primary) hypertension-I10 Indication: CAD, Hyperlipidemia, Former Smoker, Fatigue, Cardiomyopathy, KASSI CPT Codes: Echo Complete w Full Doppler-[id number] Study Detail: The following Echo studies were performed: 2D, M-Mode, Doppler and color flow. Optison used as a contrast agent for endocardial border definition. Total contrast used for this procedure was 0.5 mL via IV push. PHYSICIAN INTERPRETATION: Left Ventricle: The left ventricular systolic function is low normal, with a visually estimated ejection fraction of 50-55%. There are no regional wall motion abnormalities. The left ventricular cavity size is normal. There is mild increased septal and mildly increased posterior left ventricular wall thickness. There is left ventricular concentric remodeling. Spectral Doppler shows a Grade I (impaired relaxation pattern) of left ventricular diastolic filling with normal left atrial filling pressure. Left Atrium: The left atrium is normal in size. Right Ventricle: The right ventricle is normal in size. There is normal right ventricular global systolic function. Right Atrium: The right atrium is normal in size. Aortic Valve: The aortic valve is trileaflet. The aortic valve dimensionless index is 0.54. There is no evidence of aortic valve regurgitation. The peak instantaneous gradient of the aortic valve is 7 mmHg. The mean gradient of the aortic valve is 4 mmHg. Mitral Valve: The mitral valve is normal in structure. The peak instantaneous gradient of the mitral valve is 4 mmHg. There is no evidence of mitral valve regurgitation. Tricuspid Valve: The tricuspid valve is structurally normal. No evidence of tricuspid regurgitation. Pulmonic Valve: The pulmonic valve is structurally normal. There is no indication of pulmonic valve regurgitation. Pericardium: No pericardial effusion noted. Aorta: The aortic root is normal. CONCLUSIONS: 1. The left ventricular systolic function is low normal, with a visually estimated ejection fraction of 50-55%. 2. Spectral Doppler shows a Grade I (impaired relaxation pattern) of left ventricular diastolic filling with normal left atrial filling pressure. 3. There is normal right ventricular global systolic function. 4. No previous study available for comparison. QUANTITATIVE DATA SUMMARY: 2D MEASUREMENTS: Normal Ranges: Ao Root d: 2.90 cm (2.0-3.7cm) LAs: 4.10 cm (2.7-4.0cm) RVIDd: 3.05 cm (0.9-3.6cm) IVSd: 1.21 cm (0.6-1.1cm) LVPWd: 1.09 cm (0.6-1.1cm) LVIDd: 5.17 cm (3.9-5.9cm) LVIDs: 4.11 cm LV Mass Index: 103.0 g/m2 LV % FS 20.5 % LV SYSTOLIC FUNCTION BY 2D PLANIMETRY (MOD): Normal Ranges: EF-A4C View: 68 % (>=55%) EF-Visual: 53 % LV EF Reported: 53 % LV DIASTOLIC FUNCTION: Normal Ranges: MV Peak E: 0.51 m/s (0.7-1.2 m/s) MV Peak A: 0.91 m/s (0.42-0.7 m/s) E/A Ratio: 0.56 (1.0-2.2) MV e' 0.062 m/s (>8.0) MV lateral e' 0.07 m/s MV medial e' 0.05 m/s E/e' Ratio: 8.20 (<8.0) MITRAL VALVE: Normal Ranges: MV Vmax: 0.94 m/s (<=1.3m/s) MV peak P.5 mmHg (<5mmHg) MV mean P.0 mmHg (<48mmHg) AORTIC VALVE: Normal Ranges: AoV Vmax: 1.33 m/s (<=1.7m/s) AoV Peak P.1 mmHg (<20mmHg) AoV Mean P.0 mmHg (1.7-11.5mmHg) LVOT Max Homar: 0.82 m/s (<=1.1m/s) AoV VTI: 28.70 cm (18-25cm) LVOT VTI: 15.60 cm LVOT Diameter: 2.30 cm (1.8-2.4cm) AoV Area, VTI: 2.26 cm2 (2.5-5.5cm2) AoV Area,Vmax: 2.58 cm2 (2.5-4.5cm2) AoV Dimensionless Index: 0.54 PULMONIC VALVE: Normal Ranges: PV Max Homar: 0.8 m/s (0.6-0.9m/s) PV Max P.3 mmHg [id number] Abdoul Timmons MD Electronically signed on 07/25/2024 at 4:23:31 PM Final Normal [facility] US Heart TransthoracicOrdere d By: Abdoul Timmons on 07-25-2024 Aortic Valve Area by Continuity of Peak Velocity 2.58 cm2 [facility] Work Phone: Aortic Valve Area by Continuity of VTI 2.26 cm2 [facility] Work Phone: AV mn grad 4 mmHg [facility] Work Phone: AV pk grad 7 mmHg [facility] Work Phone: AV pk homar 1.33 m/s [facility] Work Phone: LV A4C EF 68.4 [facility] Work Phone: LV EF 53 % [facility] Work Phone: LVIDd 5.17 cm [facility] Work Phone: LVOT diam 2.3 cm [facility] Work Phone: MV avg E/e' ratio 7.1 [facility] Work Phone: MV E/A ratio 0.56 [facility] Work Phone: [facility] Work Phone: US Heart Transthoracicon [facility] [address] [place] [address], [address] [address] TRANSTHORACIC ECHOCARDIOGRAM REPORT Patient Name: TRAVIS COBURN Reading Physician: [id number] Abdoul Timmons MD Study Date: 07/25/2024 Ordering Provider: [id number] FATOU CUMMINS MRN/PID: [id number] Fellow: Nurse: Ector Cornelius RN Date of /Age: 4 1940 / 83 years Medicare Specialist: Alexandra Weiss RDCS, RVT Gender Assigned at Additional Staff: : Height: 175.26 cm Admit Date: Weight: 111.59 kg Admission Status: BSA / BMI: 2.26 m2 / 36.33 Department Location: [facility] kg/m2 [facility] Blood Pressure: 126 /74 mmHg Study Type: TRANSTHORACIC ECHO (TTE) COMPLETE Diagnosis/ICD: Shortness of breath-R06.02; Essential (primary) hypertension-I10 Indication: CAD, Hyperlipidemia, Former Smoker, Fatigue, Cardiomyopathy, KASSI CPT Codes: Echo Complete w Full Doppler-[id number] Study Detail: The following Echo studies were performed: 2D, M-Mode, Doppler and color flow. Optison used as a contrast agent for endocardial border definition. Total contrast used for this procedure was 0.5 mL via IV push. PHYSICIAN INTERPRETATION: Left Ventricle: The left ventricular systolic function is low normal, with a visually estimated ejection fraction of 50-55%. There are no regional wall motion abnormalities. The left ventricular cavity size is normal. There is mild increased septal and mildly increased posterior left ventricular wall thickness. There is left ventricular concentric remodeling. Spectral Doppler shows a Grade I (impaired relaxation pattern) of left ventricular diastolic filling with normal left atrial filling pressure. Left Atrium: The left atrium is normal in size. Right Ventricle: The right ventricle is normal in size. There is normal right ventricular global systolic function. Right Atrium: The right atrium is normal in size. Aortic Valve: The aortic valve is trileaflet. The aortic valve dimensionless index is 0.54. There is no evidence of aortic valve regurgitation. The peak instantaneous gradient of the aortic valve is 7 mmHg. The mean gradient of the aortic valve is 4 mmHg. Mitral Valve: The mitral valve is normal in structure. The peak instantaneous gradient of the mitral valve is 4 mmHg. There is no evidence of mitral valve regurgitation. Tricuspid Valve: The tricuspid valve is structurally normal. No evidence of tricuspid regurgitation. Pulmonic Valve: The pulmonic valve is structurally normal. There is no indication of pulmonic valve regurgitation. Pericardium: No pericardial effusion noted. Aorta: The aortic root is normal. CONCLUSIONS: 1. The left ventricular systolic function is low normal, with a visually estimated ejection fraction of 50-55%. 2. Spectral Doppler shows a Grade I (impaired relaxation pattern) of left ventricular diastolic filling with normal left atrial filling pressure. 3. There is normal right ventricular global systolic function. 4. No previous study available for comparison. QUANTITATIVE DATA SUMMARY: 2D MEASUREMENTS: Normal Ranges: Ao Root d: 2.90 cm (2.0-3.7cm) LAs: 4.10 cm (2.7-4.0cm) RVIDd: 3.05 cm (0.9-3.6cm) IVSd: 1.21 cm (0.6-1.1cm) LVPWd: 1.09 cm (0.6-1.1cm) LVIDd: 5.17 cm (3.9-5.9cm) LVIDs: 4.11 cm LV Mass Index: 103.0 g/m2 LV % FS 20.5 % LV SYSTOLIC FUNCTION BY 2D PLANIMETRY (MOD): Normal Ranges: EF-A4C View: 68 % (>=55%) EF-Visual: 53 % LV EF Reported: 53 % LV DIASTOLIC FUNCTION: Normal Ranges: MV Peak E: 0.51 m/s (0.7-1.2 m/s) MV Peak A: 0.91 m/s (0.42-0.7 m/s) E/A Ratio: 0.56 (1.0-2.2) MV e' 0.062 m/s (>8.0) MV lateral e' 0.07 m/s MV medial e' 0.05 m/s E/e' Ratio: 8.20 (<8.0) MITRAL VALVE: Normal Ranges: MV Vmax: 0.94 m/s (<=1.3m/s) MV peak P.5 mmHg (<5mmHg) MV mean P.0 mmHg (<48mmHg) AORTIC VALVE: Normal Ranges: AoV Vmax: 1.33 m/s (<=1.7m/s) AoV Peak P.1 mmHg (<20mmHg) AoV Mean P.0 mmHg (1.7-11.5mmHg) LVOT Max Homar: 0.82 m/s (<=1.1m/s) AoV VTI: 28.70 cm (18-25cm) LVOT VTI: 15.60 cm LVOT Diameter: (more content not included)... Abdoul Quijano MD - 07/25/[address], [address] [place] [address] TRANSTHORACIC ECHOCARDIOGRAM REPORT Patient Name: TRAVIS Perez Physician: [id number] Abdoul Timmons MD Study Date: 07/25/2024 Ordering Provider: [id number] FATOU CUMMINS MRN/PID: [id number] Fellow: Nurse: Ector Cornelius RN Date of /Age: 4 1940 / 83 years Medicare Specialist: Alexandra Weiss RDCS, RVT Gender Assigned at M Additional Staff: : Height: 175.26 cm Admit Date: Weight: 111.59 kg Admission Status: BSA / BMI: 2.26 m2 / 36.33 [facility] Blood Pressure: 126 /74 mmHg Study Type: TRANSTHORACIC ECHO (TTE) COMPLETE Diagnosis/ICD: Shortness of breath-R06.02; Essential (primary) hypertension-I10 Indication: CAD, Hyperlipidemia, Former Smoker, Fatigue, Cardiomyopathy, KASSI CPT Codes: Echo Complete w Full Doppler-[id number] Study Detail: The following Echo studies were performed: 2D, M-Mode, Doppler and color flow. Optison used as a contrast agent for endocardial border definition. Total contrast used for this procedure was 0.5 mL via IV push. PHYSICIAN INTERPRETATION: Left Ventricle: The left ventricular systolic function is low normal, with a visually estimated ejection fraction of 50-55%. There are no regional wall motion abnormalities. The left ventricular cavity size is normal. There is mild increased septal and mildly increased posterior left ventricular wall thickness. There is left ventricular concentric remodeling. Spectral Doppler shows a Grade I (impaired relaxation pattern) of left ventricular diastolic filling with normal left atrial filling pressure. Left Atrium: The left atrium is normal in size. Right Ventricle: The right ventricle is normal in size. There is normal right ventricular global systolic function. Right Atrium: The right atrium is normal in size. Aortic Valve: The aortic valve is trileaflet. The aortic valve dimensionless index is 0.54. There is no evidence of aortic valve regurgitation. The peak instantaneous gradient of the aortic valve is 7 mmHg. The mean gradient of the aortic valve is 4 mmHg. Mitral Valve: The mitral valve is normal in structure. The peak instantaneous gradient of the mitral valve is 4 mmHg. There is no evidence of mitral valve regurgitation. Tricuspid Valve: The tricuspid valve is structurally normal. No evidence of tricuspid regurgitation. Pulmonic Valve: The pulmonic valve is structurally normal. There is no indication of pulmonic valve regurgitation. Pericardium: No pericardial effusion noted. Aorta: The aortic root is normal. CONCLUSIONS: 1. The left ventricular systolic function is low normal, with a visually estimated ejection fraction of 50-55%. 2. Spectral Doppler shows a Grade I (impaired relaxation pattern) of left ventricular diastolic filling with normal left atrial filling pressure. 3. There is normal right ventricular global systolic function. 4. No previous study available for comparison. QUANTITATIVE DATA SUMMARY: 2D MEASUREMENTS: Normal Ranges: Ao Root d: 2.90 cm (2.0-3.7cm) LAs: 4.10 cm (2.7-4.0cm) RVIDd: 3.05 cm (0.9-3.6cm) IVSd: 1.21 cm (0.6-1.1cm) LVPWd: 1.09 cm (0.6-1.1cm) LVIDd: 5.17 cm (3.9-5.9cm) LVIDs: 4.11 cm LV Mass Index: 103.0 g/m2 LV % FS 20.5 % LV SYSTOLIC FUNCTION BY 2D PLANIMETRY (MOD): Normal Ranges: EF-A4C View: 68 % (>=55%) EF-Visual: 53 % LV EF Reported: 53 % LV DIASTOLIC FUNCTION: Normal Ranges: MV Peak E: 0.51 m/s (0.7-1.2 m/s) MV Peak A: 0.91 m/s (0.42-0.7 m/s) E/A Ratio: 0.56 (1.0-2.2) MV e' 0.062 m/s (>8.0) MV lateral e' 0.07 m/s MV medial e' 0.05 m/s E/e' Ratio: 8.20 (<8.0) MITRAL VALVE: Normal Ranges: MV Vmax: 0.94 m/s (<=1.3m/s) MV peak P.5 mmHg (<5mmHg) MV mean P.0 mmHg (<48mmHg) AORTIC VALVE: Normal Ranges: AoV Vmax: 1.33 m/s (<=1.7m/s) AoV Peak P.1 mmHg (<20mmHg) AoV Mean P.0 mmHg (1.7-11.5mmHg) LVOT Max Homar: 0.82 m/s (<=1.1m/s) AoV VTI: 28.70 cm (18-25cm) LVOT VTI: 15.60 cm LVOT Diameter: 2.30 cm (1.8-2.4cm) AoV Area, VTI: 2.26 cm2 (2.5-5.5cm2) AoV Area,Vmax: 2.58 cm2 (2.5-4.5cm2) AoV Dimensionless Index: 0.54 PULMONIC VALVE: Normal Ranges: PV Max Homar: 0.8 m/s (0.6-0.9m/s) PV Max P.3 mmHg [id number] Abdoul Timmons MD Electronically signed on 07/25/2024 at 4:23:31 PM Final [facility] Work Phone: No Panel Informationon 07-23 [facility] Optical coherence tomography study reporton 06-25-2024 [facility] Radiology Study observation (narrative) [facility] 36on 06-03-2024 36 Last Visit: 02/15/24 Upcoming Visit: 09/11/23 [facility] Refillon 06-02-2024 Refill [id number] Travis Coburn 1940 M Date Provider Department Center 06/02/2024 LUIS DANIEL HAYNES R[facility] RHEUM [facility] No family history on file Reason for Visit and Comments: Med Refill [[id number]] [facility] Follow-Upon 04-17-2024 Follow-Up [id number] Travis Coburn 1940 M Date Provider Department Center 04/17/2024 TOO BLOCK [facility] NEPHRO Comprehensiv No family history on file Level of Service:91467 [place] OFFICE/OUTPATIENT ESTABLISHED MOD MDM 30 MIN Reason for Visit and Comments: Follow-up [[id number]] [facility] ALBUMINon 04-04-2024 Albumin [Mass/Vol] 4.2 g/dL Normal 3.5-5.7 [facility] Comment on above: Performed By: #### L [id number] #### [facility] ([facility]) [address] [place] [address] BASIC METABOLIC PANELon 03-11 Anion gap [Moles/Vol] 7 mmol/L Normal 7-20 [facility] Comment on above: Performed By: #### L [id number] #### [facility] ([facility]) [address] [place] [address] Calcium [Mass/Vol] 9.5 mg/dL Normal 8.6-10.3 [facility] Comment on above: Performed By: #### L [id number] #### [facility] ([facility]) [address] [place] [address] Chloride [Moles/Vol] 102 mmol/L Normal 98-107 [facility] Comment on above: Performed By: #### L [id number] #### [facility] ([facility]) [address] [place] [address] CO2 [Moles/Vol] 31 mmol/L Normal 21-31 [facility] Comment on above: Performed By: #### L [id number] #### [facility] ([facility]) [address] [place] [address] Creatinine [Mass/Vol] 1.10 mg/dL Normal 0.70-1.30 [facility] Comment on above: Performed By: #### L [id number] #### [facility] ([facility]) [address] [place] [address] GLOMERULAR FILTRATION RATE ML/MIN/1.73 SQ M.PREDICTED 67.0 mL/min/1.73m*2 Normal >60.0 [facility] Comment on above: Result Comment: The [facility]???s estimated glomerular filtration rate (eGFR) will [...] #### L [id number] #### [facility] ([facility]) [address] [place] [address] Glucose [Mass/Vol] 87 mg/dL Normal 70-100 [facility] Comment on above: Performed By: #### L [id number] #### [facility] ([facility]) [address] [place] [address] Potassium [Moles/Vol] 4.0 mmol/L Normal 3.5-5.1 [facility] Comment on above: Performed By: #### L [id number] #### [facility] ([facility]) [address] [place] [address] Sodium [Moles/Vol] 136 mmol/L Normal 136-145 [facility] Comment on above: Performed By: #### L [id number] #### [facility] ([facility]) [address] [place] [address] Urea nitrogen [Mass/Vol] 18 mg/dL Normal 7-25 [facility] Comment on above: Performed By: #### L [id number] #### [facility] ([facility]) [address] [place] [address] UREA NITROGEN/CREATININE (MASS RATIO) IN SER/PLAS 16.4 Normal [facility] Comment on above: Performed By: #### L [id number] #### [facility] ([facility]) [address] [place] [address] CREATININE, URINE, RANDOMon 04-04-2024 Creatinine (U) [Mass/Vol] 91.0 mg/dL Normal 26-299 [facility] Comment on above: Performed By: #### L [id number] #### [facility] ([facility]) [address] [place] [address] HEMOGLOBINon 04-04-2024 Hemoglobin (Bld) [Mass/Vol] 14.5 g/dL Normal 13.0-17.0 [facility] Comment on above: Performed By: #### L [id number] #### [facility] ([facility]) [address] [place] [address] MAGNESIUMon 04-04-2024 Magnesium [Mass/Vol] 1.7 mg/dL Low 1.9-2.7 [facility] Comment on above: Performed By: #### L [id number] #### [facility] ([facility]) [address] [place] [address] PHOSPHORUSon 04-04-2024 Magnesium [Mass/Vol] 2.5 mg/dL Normal 2.5-5.0 [facility] Comment on above: Performed By: #### L [id number] #### [facility] ([facility]) [address] [place] [address] PROTEIN, URINE, RANDOMon Protein (U) [Mass/Vol] 6.0 mg/dL Normal [facility] Comment on above: Result Comment: Ther e are no established reference values for random urine specimens. Performed By: #### L [id number] #### [facility] ([facility]) [address] [place] [address] CBC WITH AUTO DIFFERENTIALon 02-15-2024 Basophils (Bld) [#/Vol] 0.04 10*3/uL Normal 0.00-0.20 [facility] Comment on above: Performed By: #### L [id number] #### [facility] ([facility]) [address] [place] [address] Basophils/100 WBC (Bld) 0.5 % Normal 0.0-1.0 [facility] Comment on above: Performed By: #### L [id number] #### [facility] ([facility]) [address] [place] [address] Eosinophils (Bld) [#/Vol] 0.13 10*3/uL Normal 0.00-0.50 [facility] Comment on above: Performed By: #### L [id number] #### [facility] ([facility]) [address] [place] [address] Eosinophils/100 WBC (Bld) 1.7 % Normal 0.0-6.0 [facility] Comment on above: Performed By: #### L [id number] #### [facility] ([facility]) [address] [place] [address] Erythrocyte distribution width (RBC) [Ratio] 13.8 % Normal 11.5-15.0 [facility] Comment on above: Performed By: #### L [id number] #### [facility] ([facility]) [address] [place] [address] ERYTHROCYTE MEAN CORPUSCULAR HEMOGLOBIN CONCENTRATION (G/DL) BY AUTOMATED 33.0 g/dL Normal 32.0-35.0 [facility] Comment on above: Performed By: #### L [id number] #### [facility] ([facility]) [address] [place] [address] Hematocrit (Bld) [Volume fraction] 44.0 % Normal 39.0-55.0 [facility] Comment on above: Performed By: #### L [id number] #### [facility] ([facility]) [address] [place] [address] Hemoglobin (Bld) [Mass/Vol] 14.5 g/dL Normal 13.0-17.0 [facility] Comment on above: Performed By: #### L [id number] #### [facility] ([facility]) [address] [place] [address] Immature granulocytes (Bld) [#/Vol] 0.04 10*3/uL Normal 0.00-0.20 [facility] Comment on above: Performed By: #### L [id number] #### [facility] ([facility]) [address] [place] [address] Immature granulocytes/100 WBC (Bld) 0.5 % Normal 0.0-1.0 [facility] Comment on above: Performed By: #### L [id number] #### [facility] ([facility]) [address] [place] [address] Lymphocytes (Bld) [#/Vol] 1.89 10*3/uL Normal 1.20-4.00 [facility] Comment on above: Performed By: #### L [id number] #### [facility] ([facility]) [address] [place] [address] Lymphocytes/100 WBC (Bld) 24.9 % Normal 20.0-45.0 [facility] Comment on above: Performed By: #### L [id number] #### [facility] ([facility]) [address] [place] [address] MCH (RBC) [Entitic mass] 32.1 pg Normal 27.0-33.0 [facility] Comment on above: Performed By: #### L [id number] #### [facility] ([facility]) [address] [place] [address] MCV (RBC) [Entitic vol] 97.3 fL Normal 82.0-98.0 [facility] Comment on above: Performed By: #### L [id number] #### [facility] ([facility]) [address] [place] [address] Monocytes (Bld) [#/Vol] 0.59 10*3/uL Normal 0.10-1.00 [facility] Comment on above: Performed By: #### L [id number] #### [facility] ([facility]) [address] [place] [address] Monocytes/100 WBC (Bld) 7.8 % Normal 5.0-12.0 [facility] Comment on above: Performed By: #### L [id number] #### [facility] ([facility]) [address] [place] [address] Neutrophils (Bld) [#/Vol] 4.91 10*3/uL Normal 1.60-7.60 [facility] Comment on above: Performed By: #### L [id number] #### [facility] ([facility]) [address] [place] [address] Neutrophils/100 WBC (Bld) 64.6 % Normal 40.0-72.0 [facility] Comment on above: Performed By: #### L [id number] #### [facility] ([facility]) [address] [place] [address] NRBC (PER 100 WBCS) BY AUTOMATED COUNT 0.0 % Normal 0 [facility] Comment on above: Performed By: #### L [id number] #### [facility] ([facility]) [address] [place] [address] PLATELETS (10*3/UL) IN BLOOD AUTOMATED COUNT 187 10*3/uL Normal 150-400 [facility] Comment on above: Performed By: #### L [id number] #### [facility] ([facility]) [address] [place] [address] RBC (Bld) [#/Vol] 4.52 10*6/uL Normal 4.20-5.70 [facility] Comment on above: Performed By: #### L [id number] #### [facility] ([facility]) [address] [place] [address] WBC (Bld) [#/Vol] 7.60 10*3/uL Normal 4.00-10.60 [facility] Comment on above: Performed By: #### L [id number] #### [facility] ([facility]) [address] [place] [address] COMPREHENSIVE METABOLIC PANE [place] 02-15-2024 Albumin [Mass/Vol] 4.0 g/dL Normal 3.5-5.7 [facility] Comment on above: Performed By: #### L [id number] #### [facility] ([facility]) [address] [place] [address] ALP [Catalytic activity/Vol] 90 U/L Normal 34-104 [facility] Comment on above: Performed By: #### L [id number] #### [facility] ([facility]) [address] [place] [address] ALT [Catalytic activity/Vol] 19 U/L Normal 7-52 [facility] Comment on above: Performed By: #### L [id number] #### [facility] ([facility]) [address] [place] [address] Anion gap [Moles/Vol] 10 mmol/L Normal 7-20 [facility] Comment on above: Performed By: #### L [id number] #### [facility] ([facility]) [address] [place] [address] AST [Catalytic activity/Vol] 17 U/L Normal 13-39 [facility] Comment on above: Performed By: #### L [id number] #### [facility] ([facility]) [address] [place] [address] Bilirubin [Mass/Vol] 0.8 mg/dL Normal 0.3-1.0 [facility] Comment on above: Performed By: #### L [id number] #### [facility] ([facility]) [address] [place] [address] Calcium [Mass/Vol] 9.2 mg/dL Normal 8.6-10.3 [facility] Comment on above: Performed By: #### L [id number] #### [facility] ([facility]) [address] [place] [address] Chloride [Moles/Vol] 103 mmol/L Normal 98-107 [facility] Comment on above: Performed By: #### L [id number] #### [facility] ([facility]) [address] [place] [address] CO2 [Moles/Vol] 27 mmol/L Normal 21-31 [facility] Comment on above: Performed By: #### L [id number] #### [facility] ([facility]) [address] [place] [address] Creatinine [Mass/Vol] 1.08 mg/dL Normal 0.70-1.30 [facility] Comment on above: Performed By: #### L [id number] #### [facility] ([facility]) [address] [place] [address] GLOMERULAR FILTRATION RATE ML/MIN/1.73 SQ M.PREDICTED 68.5 mL/min/1.73m*2 Normal >60.0 [facility] Comment on above: Result Comment: The [facility]???s estimated glomerular filtration rate (eGFR) will [...] #### L [id number] #### [facility] ([facility]) [address] [place] [address] Glucose [Mass/Vol] 107 mg/dL High 70-100 [facility] Comment on above: Performed By: #### L [id number] #### [facility] ([facility]) [address] [place] [address] Potassium [Moles/Vol] 3.7 mmol/L Normal 3.5-5.1 [facility] Comment on above: Performed By: #### L [id number] #### [facility] ([facility]) [address] [place] [address] Protein [Mass/Vol] 6.7 g/dL Normal 6.0-8.3 [facility] Comment on above: Performed By: #### L [id number] #### [facility] ([facility]) [address] [place] [address] Sodium [Moles/Vol] 136 mmol/L Normal 136-145 [facility] Comment on above: Performed By: #### L [id number] #### [facility] ([facility]) [address] [place] [address] Urea nitrogen [Mass/Vol] 17 mg/dL Normal 7-25 [facility] Comment on above: Performed By: #### L [id number] #### [facility] ([facility]) [address] [place] [address] UREA NITROGEN/CREATININE (MASS RATIO) IN SER/PLAS 15.7 [facility] Comment on above: Performed By: #### L [id number] #### [facility] ([facility]) [address] [place] [address] Follow-Upon 02-15-2024 Follow-Up [id number] Travis Coburn 1940 M [facility] Provider Department Center 02/15/2024 LUIS DANIEL HAYNES R[facility] RHEUM [facility] No family history on file Level of Service:11841 [place] OFFICE/OUTPATIENT ESTABLISHED MOD MDM 30 MIN () Reason for Visit and Comments: Follow-up [[id number]] - 6 month follow up Normal [facility] Orders Onlyon 02-15-2024 Orders Only [id number] Travis Coburn 1940 [facility] Provider Department Center 02/15/2024 JOON VAZQUEZ R[facility] RHEUM [facility] No family history on file [facility] 36on 11-28-2023 36 Last visit: 08/17/23 Next visit: 02/15/24 CBC/CMP: 10/02/23 [facility] 36 RHC patient Normal [facility] 36 Pt called to make sure that you will fill his Methotrexate. Normal [facility] Refillon 11-28-2023 Refill [id number] Travis Coburn 1940 [facility] Provider Department Center 11/28/2023 LUIS DANIEL HAYNES [facility] RHEUM [facility] No family history on file Reason for Visit and Comments: Med Refill [[id number]] [facility] 36on 10-16-2023 36 Last visit: 08/17/23 Next visit: 02/15/24 CBC/CMP: 10/02/23 [facility] Refillon 10-14-2023 Refill [id number] Travis Coburn 1940 [facility] Provider Department Center 10/14/2023 LUIS DANIEL HAYNES [facility] RHEUM [facility] No family history on file Reason for Visit and Comments: Med Refill [[id number]] [facility] Follow-Upon 10-11-2023 Follow-Up [id number] Travis Coburn 1940 [facility] Provider Department Center 10/11/2023 TOO BLOCK [facility] NEPHRO Comprehensiv No family history on file Level of Service:[id number] [place] OFFICE/OUTPATIENT ESTABLISHED LOW MDM 20 MIN (GC) Reason for Visit and Comments: Follow-up [888326] Chronic Kidney Disease [176] Normal [facility] CBCon 10-02-2023 Erythrocyte distribution width (RBC) [Ratio] 14.0 % Normal 11.5-15.0 [facility] Comment on above: Performed By: #### L [id number] #### [facility] ([facility]) [address] [place] [address] ERYTHROCYTE MEAN CORPUSCULAR HEMOGLOBIN CONCENTRATION (G/DL) BY AUTOMATED 33.3 g/dL Normal 32.0-35.0 [facility] Comment on above: Performed By: #### L [id number] #### [facility] ([facility]) [address] [place] [address] Hematocrit (Bld) [Volume fraction] 44.4 % Normal 39.0-55.0 [facility] Comment on above: Performed By: #### L [id number] #### [facility] ([facility]) [address] [place] [address] Hemoglobin (Bld) [Mass/Vol] 14.8 g/dL Normal 13.0-17.0 [facility] Comment on above: Performed By: #### L [id number] #### [facility] ([facility]) [address] [place] [address] MCH (RBC) [Entitic mass] 31.9 pg Normal 27.0-33.0 [facility] Comment on above: Performed By: #### L [id number] #### [facility] ([facility]) [address] [place] [address] MCV (RBC) [Entitic vol] 95.7 fL Normal 82.0-98.0 [facility] Comment on above: Performed By: #### L [id number] #### [facility] ([facility]) [address] [place] [address] PLATELETS (10*3/UL) IN BLOOD AUTOMATED COUNT 189 10*3/uL Normal 150-400 [facility] Comment on above: Performed By: #### L [id number] #### [facility] ([facility]) [address] [place] [address] RBC (Bld) [#/Vol] 4.64 10*6/uL Normal 4.20-5.70 [facility] Comment on above: Performed By: #### L [id number] #### [facility] ([facility]) [address] [place] [address] WBC (Bld) [#/Vol] 8.52 10*3/uL Normal 4.00-10.60 [facility] Comment on above: Performed By: #### L [id number] #### [facility] ([facility]) [address] [place] [address] COMPREHENSIVE METABOLIC PANE [place] 10-02-2023 Albumin [Mass/Vol] 4.3 g/dL Normal 3.5-5.7 [facility] Comment on above: Performed By: #### L [id number] #### [facility] ([facility]) [address] [place] [address] ALP [Catalytic activity/Vol] 102 U/L Normal 34-104 [facility] Comment on above: Performed By: #### L [id number] #### [facility] ([facility]) [address] [place] [address] ALT [Catalytic activity/Vol] 16 U/L Normal 7-52 [facility] Comment on above: Performed By: #### L [id number] #### [facility] ([facility]) [address] [place] [address] Anion gap [Moles/Vol] 11 mmol/L Normal 7-20 [facility] Comment on above: Performed By: #### L [id number] #### [facility] ([facility]) [address] [place] [address] AST [Catalytic activity/Vol] 18 U/L Normal 13-39 [facility] Comment on above: Performed By: #### L [id number] #### [facility] ([facility]) [address] [place] [address] Bilirubin [Mass/Vol] 0.6 mg/dL Normal 0.3-1.0 [facility] Comment on above: Performed By: #### L [id number] #### [facility] ([facility]) [address] [place] [address] Calcium [Mass/Vol] 9.5 mg/dL Normal 8.6-10.3 [facility] Comment on above: Performed By: #### L [id number] #### [facility] ([facility]) [address] [place] [address] Chloride [Moles/Vol] 102 mmol/L Normal 98-107 [facility] Comment on above: Performed By: #### L [id number] #### [facility] ([facility]) [address] [place] [address] CO2 [Moles/Vol] 28 mmol/L Normal 21-31 [facility] Comment on above: Performed By: #### L [id number] #### [facility] ([facility]) [address] [place] [address] Creatinine [Mass/Vol] 1.13 mg/dL Normal 0.70-1.30 [facility] Comment on above: Performed By: #### L [id number] #### [facility] ([facility]) [address] [place] [address] GLOMERULAR FILTRATION RATE ML/MIN/1.73 SQ M.PREDICTED 65.3 mL/min/1.73m*2 Normal >60.0 [facility] Comment on above: Result Comment: The [facility]???s estimated glomerular filtration rate (eGFR) will [...] #### L [id number] #### [facility] ([facility]) [address] [place] [address] Glucose [Mass/Vol] 140 mg/dL High 70-100 [facility] Comment on above: Performed By: #### L [id number] #### [facility] ([facility]) [address] [place] [address] Potassium [Moles/Vol] 3.9 mmol/L Normal 3.5-5.1 [facility] Comment on above: Performed By: #### L [id number] #### [facility] ([facility]) [address] [place] [address] Protein [Mass/Vol] 7.2 g/dL Normal 6.0-8.3 [facility] Comment on above: Performed By: #### L [id number] #### [facility] ([facility]) [address] [place] [address] Sodium [Moles/Vol] 137 mmol/L Normal 136-145 [facility] Comment on above: Performed By: #### L [id number] #### [facility] ([facility]) [address] [place] [address] Urea nitrogen [Mass/Vol] 15 mg/dL Normal 7-25 [facility] Comment on above: Performed By: #### L [id number] #### [facility] ([facility]) [address] [place] [address] UREA NITROGEN/CREATININE (MASS RATIO) IN SER/PLAS 13.3 [facility] Comment on above: Performed By: #### L [id number] #### [facility] ([facility]) [address] [place] [address] CREATININE, URINE, RANDOMon 10-02-2023 Creatinine (U) [Mass/Vol] 58.0 mg/dL Normal 26-299 [facility] Comment on above: Performed By: #### L [id number] #### [facility] ([facility]) [address] [place] [address] [place] 10-02-2023 Lab [id number] Travis Coburn 1940 M Date Provider Department [place] 10/02/[id number]-[facility] RESOURCE [facility] Comprehensiv No family history on file [facility] MAGNESIUMon 10-02-2023 Magnesium [Mass/Vol] 1.8 mg/dL Low 1.9-2.7 [facility] Comment on above: Performed By: #### L [id number] ####[facility] ([facility])[address] [place] [address] PHOSPHORUSon 10-02-2023 Magnesium [Mass/Vol] 2.7 mg/dL Normal 2.5-5.0 [facility] Comment on above: Performed By: #### L [id number] ####[facility] ([facility])[address] [place] [address] PROTEIN, URINE, RANDOMon Protein (U) [Mass/Vol] 5.6 mg/dL Normal Un [facility] Comment on above: Result Comment: Ther e are no established reference values for random urine specimens. Performed By: #### L [id number] #### [facility] ([facility]) [address] [place] [address] URINALYSIS WITH MICROSCOPICo n 10-02-2023 BILIRUBIN, TOTAL PRESENCE IN URINE Negative Normal Negative [facility] Comment on above: Order Comment: 0000 Performed By: #### L [id number] ####[facility] ([facility])[address] [place] [address] Clarity (U) Clear Normal Clear [facility] Comment on above: Order Comment: 0000 Performed By: #### L [id number] ####[facility] ([facility])[address] [place] [address] Color (U) Yellow Normal Yellow, Dark Yellow, Straw [facility] Comment on above: Order Comment: 0000 Performed By: #### L [id number] ####[facility] ([facility])[address] [place] [address] Glucose (U) [Mass/Vol] Negative Normal Negative Un [facility] Comment on above: Order Comment: 0000 Performed By: #### L [id number] ####[facility] ([facility])[address] [place] [address] HEMOGLOBIN PRESENCE IN URINE Negative Normal Negative [facility] Comment on above: Order Comment: 0000 Performed By: #### L [id number] ####[facility] ([facility])[address] [place] [address] Ketones Ql (U) Negative Normal Negative [facility] Comment on above: Order Comment: 0000 Performed By: #### L [id number] ####[facility] ([facility])[address] [place] [address] LEUKOCYTE ESTERASE PRESENCE IN URINE BY TEST STRIP Negative Normal Negative [facility] Comment on above: Order Comment: 0000 Performed By: #### L [id number] ####[facility] ([facility])[address] [place] [address] NITRITE PRESENCE IN URINE Negative Normal Negative [facility] Comment on above: Order Comment: 0000 Performed By: #### L [id number] ####[facility] ([facility])[address] [place] [address] pH (U) 6.0 [pH] Normal 5.0-8.0 [facility] Comment on above: Order Comment: 0000 Performed By: #### L [id number] ####[facility] ([facility])[address] [place] [address] Protein (U) [Mass/Vol] Negative Normal [facility] Comment on above: Order Comment: 0000 Performed By: #### L [id number] ####[facility] ([facility])[address] [place] [address] RBC (#/HPF) IN URINE SEDIMENT 0-2 Abnormal None Seen [facility] Comment on above: Order Comment: 0000 Performed By: #### L [id number] ####[facility] ([facility])[address] [place] [address] Specific gravity (U) [Rel density] <=1.005 Low 1.015-1.020 [facility] Comment on above: Order Comment: 0000 Performed By: #### L [id number] ####[facility] ([facility])[address] [place] [address] SQUAMOUS EPITHELIAL CELLS (#/HPF) IN URINE SEDIMENT Occasional Normal None Seen, Occasional [facility] Comment on above: Order Comment: 0000 Performed By: #### L [id number] ####[facility] ([facility]ER)[address] [place] [address] WBC (LEUKOCYTE) (#/HPF) IN URINE SEDIMENT 0-2 Abnormal None Seen [facility] Comment on above: Order Comment: 0000 Performed By: #### L [id number] ####[facility] ([facility])[address] [place] [address] VITAMIN D 25 HYDROXYon 10-01 CALCIDIOL (25 [place] VITAMIN D3) (NG/ML) IN SER/PLAS 16.1 ng/mL Low 30.0-80.0 [facility] Comment on above: Result Comment: >80. 0 Toxicity possible Performed By: #### L [id number] #### [facility] ([facility]) [address] [place] [address] Ambulatory Visit Summaryon 0 09-13-2023 Ambulatory Visit Summary TRAVIS COBURN :1940 Visit Date:09/13/2023 Ambulatory Visit Instructions Your Care Team Attending Physician - MAXX TURNER, Shaquille Peter Primary Care Physician - Roman Navarrete MD This Is Your Medications List amitriptyline (amitriptyline 50 mg Tab) aspirin cholecalciferol (Vitamin D3) folic acid (Folate 1 mg Tab) furosemide (Lasix) glimepiride (glimepiride 1 mg Tab) hydrochlorothiazide- irbesartan (hydrochlorothiazide -irbesartan 12.5 mg-300 mg Tab) 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 (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 5 mg oral tablet) oxybutynin (oxybutynin 5 mg ER Tab) pantoprazole (Protonix) polyethylene glycol 3350 (MiraLax) predniSONE (predniSONE 2.5 mg oral tablet) rosuvastatin (rosuvastatin 5 mg Tab) Procedures Performed Excision of basal cell carcinoma (08/22/2023), right knee arthroscopy (04/09/2014), Cystoscopic removal of ureteric stent (02/25/2003), Arthroscopic knee operation, Colonoscopy, Cystoscopy, Cystoscopy, Esophagogastroduoden oscopy, ESWL - Extracorporeal shockwave lithotripsy for renal calculus, Excision of breast mass, H/O repair of rotator cuff..., heart catheterization, Hemorrhoidectomy, Prostate Surgery, Repair of elbow, Shoulder Surgery. What to do next Scheduled Follow-Up Appointments Monday. 2023 11:30 AM EDT With: MIRIAN TURNER, Nguyễn Peter Where: [facility] Lydia Normal [facility] General Surgery Office/Clini c Noteon 09-13-2023 [...] (02/25/2003), Arthroscopic knee operation, Colonoscopy, Cystoscopy, Cystoscopy, Esophagogastroduoden oscopy, ESWL - Extracorporeal shockwave lithotripsy for renal calculus, Excision of breast mass, H/O repair of rotator cuff..., heart catheterization, Hemorrhoidectomy, Prostate Surgery, Repair of elbow, Shoulder Surgery. Medications amitriptyline 50 mg Tab, 50 mg= 1 tab(s), Oral, Once a day (at bedtime) aspirin, 81 mg, Oral, Daily Folate 1 mg Tab glimepiride 1 mg Tab, 1 mg= 1 tab(s), Oral, Daily hydrochlorothiazide- irbesartan 12.5 mg-300 mg Tab, 1 tab(s), Oral, [...] influenza virus vaccine, inactivated 07/26/2022 Recorded SARSCoV2 mRNA(tozinamer-emily- sucros) vac 11/17/2021 Recorded SARS-CoV-2 (COVID-19) mRNA BNT-162b2 [...] virus vaccine, inactivated 05/22/2014 Recorded Normal [facility] Comment on above: Result Comment: Elec tronically Signed By: MAXX TURNER, Shaquille Peter\.br\Date and Time Signed: 09/13/23 15:19 EST Ambulatory Visit Summaryon 0 09-01-2023 Ambulatory Visit Summary TRAVIS COBURN :1940 Visit Date:09/01/2023 Ambulatory Visit Instructions Your Care Team Attending Physician - Shaquille LILLY MD Primary Care Physician - Roman Navarrete MD This Is Your Medications List amitriptyline (amitriptyline 50 mg Tab) aspirin cholecalciferol (Vitamin D3) folic acid (Folate 1 mg Tab) furosemide (Lasix) glimepiride (glimepiride 1 mg Tab) hydrochlorothiazide- irbesartan (hydrochlorothiazide -irbesartan 12.5 mg-300 mg Tab) 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 (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 5 mg oral tablet) oxybutynin (oxybutynin 5 mg ER Tab) pantoprazole (Protonix) polyethylene glycol 3350 (MiraLax) predniSONE (predniSONE 2.5 mg oral tablet) rosuvastatin (rosuvastatin 5 mg Tab) Procedures Performed Excision of basal cell carcinoma (08/22/2023), right knee arthroscopy (04/09/2014), Cystoscopic removal of ureteric stent (02/25/2003), Arthroscopic knee operation, Colonoscopy, Cystoscopy, Cystoscopy, Esophagogastroduoden oscopy, ESWL - Extracorporeal shockwave lithotripsy for renal calculus, Excision of breast mass, H/O repair of rotator cuff..., heart catheterization, Hemorrhoidectomy, Prostate Surgery, Repair of elbow, Shoulder Surgery. What to do next Scheduled Follow-Up Appointments Monday. 2023 12:45 PM EDT With: MIRIAN TURNER, Nguyễn Peter Where: [facility] General Surgery Office/Clini c Noteon 09-01-2023 General [...] (02/25/2003), Arthroscopic knee operation, Colonoscopy, Cystoscopy, Cystoscopy, Esophagogastroduoden oscopy, ESWL - Extracorporeal shockwave lithotripsy for renal calculus, Excision of breast mass, H/O repair of rotator cuff..., heart catheterization, Hemorrhoidectomy, Prostate Surgery, Repair of elbow, Shoulder Surgery. Medications amitriptyline 50 mg Tab, 50 mg= 1 tab(s), Oral, Once a day (at bedtime) aspirin, 81 mg, Oral, Daily Folate 1 mg Tab glimepiride 1 mg Tab, 1 mg= 1 tab(s), Oral, Daily hydrochlorothiazide- irbesartan 12.5 mg-300 mg Tab, 1 tab(s), Oral, [...] influenza virus vaccine, inactivated 07/26/2022 Recorded SARSCoV2 mRNA(tozinamer-emily- sucros) vac 11/17/2021 Recorded SARS-CoV-2 (COVID-19) mRNA BNT-162b2 vax 05/20/2021 Recorded 2023-03-20: TPV75 SARS-CoV-2 (COVID-19) mRNA BNT-162b2 vax 11/17/2020 Recorded SARS-CoV-2 (COVID-19) mRNA BNT-162b2 vax 10/29/2020 Recorded 2023-03-20: TPV75 SARS-CoV-2 (COVID-19) mRNA BNT-162b2 vax 10/27/2020 Recorded SARS-CoV-2 (COVID-19) mRNA BNT-162b2 vax 10/06/2020 Recorded 2023-03-20: TPV75 influenza virus vaccine, in (more content not included)... Normal [facility] Comment on above: Result Comment: Elec tronically Signed By: MAXX TURNER, Shaquille Steele\Date and Time Signed: 09/01/23 14:34 EST Pathology Noteon 08-28-2023 Pathology Note [id number] #1.00TIFF [facility] Ambulatory Visit Summaryon 0 08-22-2023 Ambulatory Visit Summary TRAVIS COBURN :1940 Visit Date:08/22/2023 Ambulatory Visit Instructions Your Care Team Attending Physician - Shaquille LILLY MD Primary Care Physician - Roman Navarrete MD This Is Your Medications List amitriptyline (amitriptyline 50 mg Tab) aspirin cholecalciferol (Vitamin D3) folic acid (Folate 1 mg Tab) furosemide (Lasix) glimepiride (glimepiride 1 mg Tab) hydrochlorothiazide- irbesartan (hydrochlorothiazide -irbesartan 12.5 mg-300 mg Tab) 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 (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 5 mg oral tablet) oxybutynin (oxybutynin 5 mg ER Tab) pantoprazole (Protonix) polyethylene glycol 3350 (MiraLax) predniSONE (predniSONE 2.5 mg oral tablet) rosuvastatin (rosuvastatin 5 mg Tab) Procedures Performed right knee arthroscopy (04/09/2014), Cystoscopic removal of ureteric stent (02/25/2003), Arthroscopic knee operation, Colonoscopy, Cystoscopy, Cystoscopy, Esophagogastroduoden oscopy, ESWL - Extracorporeal shockwave lithotripsy for renal calculus, Excision of breast mass, H/O repair of rotator cuff..., heart catheterization, Hemorrhoidectomy, Prostate Surgery, Repair of elbow, Shoulder Surgery. What to do next Scheduled Follow-Up Appointments Monday. 2023 12:45 PM EDT With: MIRIAN TURNER, Nguyễn Peter Where: [facility] General Surgery Office/Clini c Noteon 08-22-2023 [...] (02/25/2003), Arthroscopic knee operation, Colonoscopy, Cystoscopy, Cystoscopy, Esophagogastroduoden oscopy, ESWL - Extracorporeal shockwave lithotripsy for renal calculus, Excision of breast mass, H/O repair of rotator cuff..., heart catheterization, Hemorrhoidectomy, Prostate Surgery, Repair of elbow, Shoulder Surgery. Medications amitriptyline 50 mg Tab, 50 mg= 1 tab(s), Oral, Once a day (at bedtime) aspirin, 81 mg, Oral, Daily Folate 1 mg Tab glimepiride 1 mg Tab, 1 mg= 1 tab(s), Oral, Daily hydrochlorothiazide- irbesartan 12.5 mg-300 mg Tab, 1 tab(s), Oral, [...] influenza virus vaccine, inactivated 07/26/2022 Recorded SARSCoV2 mRNA(tozinamer-emily- sucros) vac 11/17/2021 Recorded SARS-CoV-2 (COVID-19) mRNA BNT-162b2 vax 05/20/2021 Recorded 2023-03-20: TPV75 SARS-CoV-2 (COVID-19) mRNA BNT-162b2 vax 11/17/2020 Recorded SARS-CoV-2 (COVID-19) mRNA BNT-162b2 vax 10/29/2020 Recorded 2023-03-20: TPV75 SARS-CoV (more content not included)... Normal [facility] Comment on above: Result Comment: Elec tronically Signed By: MAXX TURNER, Shaquille Steele\Date and Time Signed: 08/22/23 14:34 EST [place] 08-22-2023 L Specimen: [id number] Received: 08/23/23 Status: JUAN LUIS Carty Num: [id number] Spec Type: Surgical Subm Dr: Shaquille Lilly MD FACS Tissues: A Skin-Other than Cyst, tag, debridement or plastic repair (RT POST CALF) Procedures: HE/3, Gross/Micro L4 Age/ Patient Sex Location Account Attending Physician AlmasTravis Perry 82/M [place] [id number] Shaquille Lilly MD FACS SPEC NUM: [id number] RECD: 08/23/23 STATUS: JUAN LUIS CARTY NUM: [id number] APRIL: 08/22/23- SUBM DR: Shaquille Lilly MD FACS ENTERED: 08/23/[address]: Lydia,Lab SPEC TYPE: Surgical DEPT: NICOLA TENA ENTERED BY: [id number] RECV BY: [id number] ORDERED: HE/3, Gross/Micro L4 ORDERED: HE/3, Gross/Micro [...] - Tips A2-A3 - Remainder CPT Codes 17096 Specimen: [id number] Received: 08/23/23 Status: JUAN LUIS Carty Num: [id number] Spec Type: Surgical Subm Dr: Shaquille Lilly MD FACS Tissues: A Skin-Other than Cyst, tag, debridement or plastic repair (RT POST CALF) Procedures: HE/3, Gross/Micro L4 Patient: Travis Coburn [id number] (Continued) Signed (signature on file) Joon Bermudez MD 08/24/232206 [facility] Ambulatory Visit Summaryon 0 07-18-2023 Ambulatory Visit Summary TRAVIS COBURN :1940 Visit Date:07/18/2023 Ambulatory Visit Instructions Your Care Team Attending Physician - MAXX TURNER, Shaquille Peter Primary Care Physician - Landon TURNER, Roman Referring Physician - Roman Navarrete MD This Is Your Medications List Contact prescribing physician if questions or concerns amitriptyline (amitriptyline 50 mg Tab) aspirin cholecalciferol (Vitamin D3) folic acid (Folate 1 mg Tab) furosemide (Lasix) glimepiride (glimepiride 1 mg Tab) hydrochlorothiazide- irbesartan (hydrochlorothiazide -irbesartan 12.5 mg-300 mg Tab) 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 (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 5 mg oral tablet) oxybutynin (oxybutynin 5 mg ER Tab) pantoprazole (Protonix) polyethylene glycol 3350 (MiraLax) predniSONE (predniSONE 2.5 mg oral tablet) rosuvastatin (rosuvastatin 5 mg Tab) Procedures Performed right knee arthroscopy (04/09/2014), Cystoscopic removal of ureteric stent (02/25/2003), Arthroscopic knee operation, Colonoscopy, Cystoscopy, Cystoscopy, Esophagogastroduoden oscopy, ESWL - Extracorporeal shockwave lithotripsy for renal [...] Maxx/Deisy Lydia Normal [address] [place] [address]- \.br\ Medications\.br\ What How Much When Instructions\.br\ [...] physician if questions or concerns \.br\ Unchanged hydrochlorothiazi de-irbesartan (hydrochlorothiaz lianne-irbesartan 12.5 mg-300 mg Tab) 1 Tablets By [...] inactivated, Patient Refuses\.br\ Allergies\.br\ Latex (Unknown)\.br\ penicillins (Anaphylaxis)\.br \ sulfa drugs\.br\ Problems\.br\ Ongoing - Any problem that you are currently receiving treatment for.\.br\ Abnormal biliary HIDA scan\.br\ Abnormal gallbladder ultrasound\.br\ Anxiety\.br\ BMI 35.0-35.9,adult\. br\ BPH with urinary obstruction\.br\ Diabetes\.br\ Former smoker\.br\ Gastroesophageal reflux\.br\ Hepatic steatosis\.br\ Hiatal hernia\.br\ History of Helicobacter pylori infection\.br\ History of kidney stones\.br\ HTN (hypertension)\.b r\ Hypertriglyceride inge\.br\ Impotence\.br\ Kidney stones\.br\ Migraine\.br\ Neuropathy\.br\ Nocturia\.br\ Obesity [...] for choosing us for your care.\.br\ \.br\ [facility] Physician Referralon 024 Physician Referral [id number] #1.00TIFF Normal [facility] Physician Referral [id number] #1.00TIFF Normal [facility] FLUORO FOR SURGICAL PROCEDUR ESon 04-05-2023 FLUORO FOR SURGICAL PROCEDURES RADRPT Radiology exam is complete. No Radiologist dictation. Please follow up with ordering provider. Final result Normal [facility] SURGICALon 04-05-2023 SURGICAL [facility] Pathology TRAVIS [place]URN [id number] Assoc. Page 1 of [address] [place] [address] PROC: 04/05/2023 [facility] RECV: 04/06/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 Negative for malignancy/neoplasia . Specimen: BIOPSY OF BONE, L1 VERTEBRAL BODY Gross Examination: The container is labeled Travis Coburn, L1 vertebral body biopsy. Received in formalin is mainly blood clot aggregating to 1 x 0.8 x 0.2 cm. The specimen is entirely submitted. 1 ns. PCF/JOHNR:[id number]_i Microscopic Examination: Microscopic examination demonstrates crush bone [...] developed and its performance characteristics determined by [facility]. It has not been cleared or approved by the U.S. Food and Drug Administration. Pursuant to the requirements of CLIA, this laboratory has established and verified the test's accuracy and precision. Additional information about this type of test is available upon request. [id number] REJI FITZGERALD M.D., F.C.A.P. NVML/ [facility] Printed on: 04/07/[address] [place] [id number] Original print date: 04/07/2023 Normal [facility] Surgical Pathology Requeston 04-05-2023 MALLIKA SEE BELOW Normal [facility] Comment on above: Order Comment: Age-r elated osteoporosis with current pathological fracture of vertebra, initial encounter (HCC) [M80.08XA] Pre-op diagnosis: L1 Vertebral body Biopsy Result Comment: [facility] TRAVIS CO[place]URN [id number]\X0D0A\Assoc. Page 1 of 1\X0D0A\[address]\X0D0A\[place] [address]\X0D0A\ PROC: 04/05/2023\X0D0A\NVML/[facility] RECV: 04/06/2023\X0D0A\[address] RPTD: 04/07/2023\X0D0A\[place] [address]\X0D0A\ LOC: WYA\X0D0A\ ACCT: [id number] SEX: M\X0D0A\ : 1940 AGE: 82 Y\X0D0A\X0D0A\ PATHOLOGY REPORT\X0D0A\ ATTN: NON-STAFF PHYSICIAN\X0D0A\ REQ: MICHELLE BARRY\X0D0A\X0D0A\X0D0A\Copies To: ROMAN NAVARRETE\X0D0A\X0D0A\X0D0A\Clinical Information: AGE-RELATED OSTEOPOROSIS WITH CURRENT\X0D0A\PATHOLOGICAL FRACTURE [...] was developed and its performance characteristics determined\X0D0A\by [facility]. It has not been cleared or\X0D0A\approved by the U.S. Food and Drug Administration. Pursuant to the\X0D0A\requirements of CLIA, this laboratory has established and verified the\X0D0A\test's accuracy and precision. Additional information about this type\X0D0A\of test is available upon request.\X0D0A\X0D0A\[address]\X0D0A\[address]\X0D0A\7[address]\X0D0A\X0D0 A\X0D0A\ \X0D0A\ REJI FITZGERALD M.D., F.C.A.P.\X0D0A\X0D0A\X0D0A\[facility]/ [facility] Printed on: 04/07/2023\X0D0A\[address]\X0D0A\[place], [place] [address]\X0D0A\Original print date: 04/07/2023 Performed By: #### 1 [id number] #### [facility] See Report Ambulatory Visit Summaryon 0 03-20-2023 Ambulatory Visit Summary TRAVIS COBURN :1940 Visit Date:03/20/2023 Ambulatory Visit Instructions Your Diagnosis Nocturia Urinary urgency BPH with urinary obstruction History of kidney stones Impotence Tests Performed Urnls Dip Stick Auto w/o Microscopy POC [id number] Your Care Team Attending Physician - Nguyễn VELA MD Primary Care Physician - Roman Navarrete MD This Is Your Medications List oxybutynin (oxybutynin 5 mg ER Tab) Contact prescribing physician if questions or concerns acetaminophen-oxycod one (Percocet 5 mg-325 mg oral tablet) adalimumab [...] (02/25/2003), Arthroscopic knee operation, Colonoscopy, Cystoscopy, Cystoscopy, Esophagogastroduoden oscopy, ESWL - Extracorporeal shockwave lithotripsy for renal [...] TURNER, Nguyễn Peter Where: [facility] Patient Educationon 03-20-20 Patient Education Urology Benign [...] Follow these instructions at home: ? Take [id number] and prescription medicines only as told by [...] the medicine (more content not included)... Normal [facility] Urology Office/Clinic Noteon 03-20-2023 Urology Office/Clinic [...] he had an intensional fall due to supervisor central supply almost tilting over so pt had to [...] the ER after falling off of his supervisor central supply and injuring his back. Reports he has [...] When Contact Information MIRIAN TURNER, Nguyễn Peter, URL In 6 months [facility] [address], [place] [phone] Additional Instructions: Patient Education Benign Prostatic Hyperplasia [...] data Procedure/ (more content not included)... Normal [facility] Comment on above: Result Comment: Elec tronically Signed By: Nguyễn VELA MD\.br\Date and Time Signed: 03/20/23 15:41 EDT\.br\Electronically Co-Signed By: Jackeline Graff\.br\Date and Time Co-Signed: 03/20/23 15:38 EDT INSULINon 10-26-2022 Insulin 34.8 uIU/mL Critically high 2.6-24.9 [facility] Comment on above: Performed By: #### C BC #### [facility] [address] [address] [address] Layla Barrera CBC AUTO DIFFon 10-25-2022 BASO # 0.0 103/ul Normal 0.0-0.1 [facility] Comment on above: Performed By: #### C BC #### [facility] [address] [address] [address] Layla Barrera Basophils/100 WBC (Bld) 0.6 % Normal 0.2-2.0 [facility] Comment on above: Performed By: #### C BC #### [facility] [address] [address] [address] Layla Barrera EO # 0.3 103/ul Normal 0.0-0.7 [facility] Comment on above: Performed By: #### C BC #### [facility] [address] [place] [address] Dr. Layla Barrera Eosinophils/100 WBC (Bld) 4.2 % Normal 0.9-7.0 [facility] Comment on above: Performed By: #### C BC #### [facility] [address] [address] [address] Layla Barrera Erythrocyte distribution width (RBC) [Ratio] 13.6 % Normal 11.0-15.0 [facility] Comment on above: Performed By: #### C BC #### [facility] [address] [place] [address] Dr. Layla Barrera Hematocrit (Bld) [Volume fraction] 42.6 % Normal 42.0-54.0 [facility] Comment on above: Performed By: #### C BC #### [facility] [address] [address] [address] Layla Barrera Hemoglobin (Bld) [Mass/Vol] 14.7 g/dL Normal 14.0-18.0 [facility] Comment on above: Performed By: #### C BC #### [facility] [address] [place] [address] Dr. Layla Barrera IG # 0.02 10e3/ul Normal 0.00-0.03 [facility] Comment on above: Performed By: #### C BC #### [facility] [address] [place] [address] Dr. Layla Barrera IG % 0.3 % Normal 0.0-0.5 [facility] Comment on above: Performed By: #### C BC #### [facility] [address] [place] [address] Dr. Layla Barrera LYMPH # 2.1 103/ul Normal 1.2-3.8 [facility] Comment on above: Performed By: #### C BC #### [facility] [address] [place] [address] Dr. Layla Barrera Lymphocytes/100 WBC (Bld) 30.1 % Normal 20.5-60.0 [facility] Comment on above: Performed By: #### C BC #### [facility] [address] [place] [address] Dr. Layla Barrera MANUAL DIFF REQ NO Normal [facility] Comment on above: Performed By: #### C BC #### [facility] [address] [place] [address] Dr. Layla Barrera MCH (RBC) [Entitic mass] 32.1 pg Normal 25.9-34.0 [facility] Comment on above: Performed By: #### C BC #### [facility] [address] [place] [address] Dr. Layla Barrera MCHC (RBC) [Mass/Vol] 34.5 g/dL Normal 29.9-35.2 [facility] Comment on above: Performed By: #### C BC #### [facility] [address] [place] [address] Dr. Layla Barrera MCV (RBC) [Entitic vol] 93.0 fL Normal 80.0-94.0 [facility] Comment on above: Performed By: #### C BC #### [facility] [address] [place] [address] Dr. Layla Barrera MONO # 0.6 103/ul Normal 0.3-0.8 [facility] Comment on above: Performed By: #### C BC #### [facility] [address] [place] [address] Dr. Layla Barrera Monocytes/100 WBC (Bld) 8.5 % Normal 1.7-12.0 [facility] Comment on above: Performed By: #### C BC #### [facility] [address] [place] [address] Dr. Layla Barrera NEUT # 3.9 103/ul Normal 1.4-6.5 [facility] Comment on above: Performed By: #### C BC #### [facility] [address] [place] [address] Dr. Layla Barrera Neutrophils/100 WBC (Bld) 56.3 % Normal 43.0-75.0 [facility] Comment on above: Performed By: #### C BC #### [facility] [address] [place] [address] Dr. Layla Barrera Platelet mean volume (Bld) [Entitic vol] 10.6 fL Normal 9.5-13.5 [facility] Comment on above: Performed By: #### C BC #### [facility] [address] [place] [address] Dr. Layla Barrera PLT 168 103/ul Normal 150-450 [facility] Comment on above: Performed By: #### C BC #### [facility] [address] [place] [address] Dr. Layla Barrera RBC 4.58 106/ul Critically low 4.70-6.10 [facility] Comment on above: Performed By: #### C BC #### [facility] [address] [place] [address] Dr. Layla Barrera WBC 7.0 103/ul Normal 4.0-11.0 [facility] Comment on above: Performed By: #### C BC #### [facility] [address] [place] [address] Dr. Layla Barrera FREE THYROXINE INDEX T7on FTI 2.21 Normal 1.30-4.50 [facility] Comment on above: Performed By: #### C BC #### [facility] [address] [address] [address] Layla Barrera T3U 33.0 % Normal 33.0-40.0 [facility] Comment on above: Performed By: #### C BC #### [facility] [address] [address] [address] Layla Barrera T4 [Mass/Vol] 6.70 ug/dL Normal 4.50-12.10 [facility] Comment on above: Performed By: #### C BC #### [facility] [address] [address] [address] Layla Barrera GLYCOHEMOGLOBIN A1Con 2022 ADA RECOMMENDATION SEE BELOW Normal [facility] Comment on above: Result Comment: ADA RECOMMENDED LIMIT 4.0 - 6.0 ADA THERAPEUTIC TARGET < 7.0 ACTION SUGGESTED > 7.0 Performed By: #### G IPANEL #### [facility] [address] [place] [address] Dr. Layla Barrrea Glucose [Mass/Vol] 146 mg/dL Normal [facility] Comment on above: Performed By: #### G IPANEL #### [facility] [address] [place] [address] Dr. Layla Barrera HbA1c (Bld) [Mass fraction] 6.7 % Critically high 4.5-6.2 [facility] Comment on above: Performed By: #### G IPANEL #### [facility] [address] [place] [address] Dr. Layla Barrera IRONon 10-25-2022 Iron [Mass/Vol] 82.0 ug/dL Normal 65.0-175.0 [facility] Comment on above: Performed By: #### I SHANIQUA VITKENNY, VITB12 #### [facility] [address] [place] [address] Dr. Layla Barrera LIPID PROFILEon 10-25-2022 CHOL-HDL RATIO NORM SEE BELOW Normal [facility] Comment on above: Result Comment: 3.3 - 4.4 LOW RISK 4.4 - 7.1 AVERAGE RISK 7.1 - 11.0 MODERATE RISK >11.0 HIGH RISK Performed By: #### C BC #### [facility] [address] [address] [address] Layla Barrera Cholesterol [Mass/Vol] 201 mg/dL Critically high <=200 [facility] Comment on above: Performed By: #### C BC #### [facility] [address] [address] [address] Layla Barrera Cholesterol in HDL [Mass/Vol] 46 mg/dL Normal 40-60 [facility] Comment on above: Performed By: #### C BC #### [facility] [address] [address] [address] Layla Barrera Cholesterol in LDL [Mass/Vol] 133.4 mg/dL Normal [facility] Comment on above: Performed By: #### C BC #### [facility] [address] [address] [address] Layla Barrera Cholesterol.total/Chol esterol in HDL [Mass ratio] 4.4 {ratio} Normal [facility] Comment on above: Performed By: #### C BC #### [facility] [address] [address] [address] Layla Barrera HDL NORMAL > or = 60 mg/dl - LOW CARDIOVASCULAR RISK <40 mg/dl - HIGH CARDIOVASCULAR RISK Normal [facility] Comment on above: Performed By: #### C BC #### [facility] [address] [place] [address] Dr. Layla Barrera LDL CALC NORMAL SEE BELOW Normal [facility] Comment on above: Result Comment: <100 mg/dl OPTIMAL 100 - 129 mg/dl NEAR OR ABOVE OPTIMAL 130 - 159 mg/dl BORDERLINE HIGH 160 - 189 mg/dl HIGH >190 mg/dl VERY HIGH Performed By: #### C BC #### [facility] [address] [address] [address] Layla Barrera Triglyceride [Mass/Vol] 108 mg/dL Normal <=150 [facility] Comment on above: Performed By: #### C BC #### [facility] [address] [address] [address] Layla Barrera VLDL CALC 21.6 mg/dL Normal [facility] Comment on above: Performed By: #### C BC #### [facility] [address] [place] [address] Dr. Layla Barrera PROF 14(COMP METB)on 023 Albumin [Mass/Vol] 3.6 g/dL Normal 3.4-5.0 [facility] Comment on above: Performed By: #### C BC #### [facility] [address] [place] [address] Dr. Layla Barrera Albumin/Globulin [Mass ratio] 1.0 {ratio} Normal [facility] Comment on above: Performed By: #### C BC #### [facility] [address] [place] [address] Dr. Layla Barrera ALP [Catalytic activity/Vol] 101 U/L Normal 46-116 [facility] Comment on above: Performed By: #### C BC #### [facility] [address] [place] [address] Dr. Layla Barrera ALT [Catalytic activity/Vol] 42 U/L Normal 16-63 [facility] Comment on above: Performed By: #### C BC #### [facility] [address] [place] [address] Dr. Layla Barrera Anion gap [Moles/Vol] 12.8 mmol/L Normal [facility] Comment on above: Performed By: #### C BC #### [facility] [address] [place] [address] Dr. Layla Barrera AST [Catalytic activity/Vol] 26 U/L Normal 15-37 [facility] Comment on above: Performed By: #### C BC #### [facility] [address] [place] [address] Dr. Layla Barrera Bilirubin [Mass/Vol] 0.7 mg/dL Normal 0.2-1.0 [facility] Comment on above: Performed By: #### C BC #### [facility] [address] [place] [address] Dr. Layla Barrera Calcium [Mass/Vol] 8.9 mg/dL Normal 8.5-10.1 [facility] Comment on above: Performed By: #### C BC #### [facility] [address] [place] [address] Dr. Layla Barrera Chloride [Moles/Vol] 103 mmol/L Normal 98-107 [facility] Comment on above: Performed By: #### C BC #### [facility] [address] [address] [address] Layla Barrera CO2 [Moles/Vol] 26.3 mmol/L Normal 21.0-32.0 [facility] Comment on above: Performed By: #### C BC #### [facility] [address] [address] [address] Layla Barrera Creatinine [Mass/Vol] 1.24 mg/dL Normal 0.70-1.30 [facility] Comment on above: Performed By: #### C BC #### [facility] [address] [place] [address] Dr. Layla Barrera EGFR-AF DANISH >60 Normal >=60 [facility] Comment on above: Performed By: #### C BC #### [facility] [address] [address] [address] Layla Barrera EGFR-NON AF DANISH 56 mL/min/1.73m2 Critically low >=60 [facility] Comment on above: Performed By: #### C BC #### [facility] [address] [address] [address] Layla Barrera Globulin (S) [Mass/Vol] 3.5 g/dL Normal [facility] Comment on above: Performed By: #### C BC #### [facility] [address] [address] [address] Layla Barrera Glucose [Mass/Vol] 147 mg/dL Critically high 74-106 T [facility] Comment on above: Performed By: #### C BC #### [facility] [address] [address] [address] Layla Barrera Potassium [Moles/Vol] 4.1 mmol/L Normal 3.5-5.1 [facility] Comment on above: Performed By: #### C BC #### [facility] [address] [address] [address] Layla Barrera Protein [Mass/Vol] 7.1 g/dL Normal 6.4-8.2 [facility] Comment on above: Performed By: #### C BC #### [facility] [address] [place] [address] Dr. Layla Barrera Sodium [Moles/Vol] 138 mmol/L Normal 136-145 [facility] Comment on above: Performed By: #### C BC #### [facility] [address] [place] [address] Dr. Layla Barrera Urea nitrogen [Mass/Vol] 18.0 mg/dL Normal 7.0-18.0 [facility] Comment on above: Performed By: #### C BC #### [facility] [address] [place] [address] Dr. Layla Barrera Urea nitrogen/Creatinine [Mass ratio] 14.5 mg/mg Normal [facility] Comment on above: Performed By: #### C BC #### [facility] [address] [place] [address] Dr. Layla Barrera TSHon 10-25-2022 TSH 2.495 uIU/mL Normal 0.358-3.740 [facility] Comment on above: Performed By: #### C BC #### [facility] [address] [place] [address] Dr. Layla Barrera URIC ACID SERUMon 10-25-2022 Urate [Mass/Vol] 8.1 mg/dL Critically high 3.5-7.2 [facility] Comment on above: Performed By: #### C BC #### [facility] [address] [place] [address] Dr. Layla Barrera VITAMIN B12on 10-25-2022 Cobalamin (Vitamin B12) [Mass/Vol] 689.0 pg/mL Normal 193.0-986.0 [facility] Comment on above: Performed By: #### I SHANIQUA VITAD, VITB12 #### [facility] [address] [place] [address] Dr. Layla Barrera VITAMIN D 25 OHon 10-25-2022 VIT D 25-OH 17.0 ng/mL Normal [facility] Comment on above: Performed By: #### I SONYA MCGOVERN, VITB12 #### [facility] [address] [address] [address] Layla Barrera VIT D RANGES SEE BELOW Normal [facility] Comment on above: Result Comment: <20 ng/mL Vit D deficient 20 - <30 ng/mL Vit D insufficient 30 - 100 ng/mL Vit D sufficient >100 ng/mL Potential Toxicity Performed By: #### I SONYA MCGOVERN, VITB12 #### [facility] [address] [address] [address] Layla Barrera PSA, FREE AND TOTAL RATIOon 06-22-2022 % Free PSA 49.9 % Normal [facility] Comment on above: Result Comment: The [...] men. Performed By: #### P SAFREE #### [facility] [address] [place] [address] Dr. Layla Barrera Prostate specific Ag [Mass/Vol] 6.8 ng/mL Critically high 0.0-4.0 [facility] Comment on above: Result Comment: Nikki CARTER methodology. . According to the [employer], Serum PSA should decrease and [...] disease. Performed By: #### P SAFREE #### [facility] [address] [place] [address] Dr. Layla Barrera PSA, Free 3.39 ng/mL Normal N/A [facility] Comment on above: Result Comment: Nikki bassett ECLIA methodology. Performed By: #### P SAFREE #### [facility] [address] [place] [address] Dr. Layla Barrera H PYLORI ANTIBODY IGGon H. PYLORI IGG ABS 0.96 Index Value Critically high 0.00-0. 79 [facility] Comment on above: Result Comment: Nega tive <0.80 Equivocal 0.80 - 0.89 Positive >0.89 Performed By: #### C BC #### [facility] [address] [place] [address] Dr. Layla Barrera INSULINon 03-12-2022 Insulin 38.7 uIU/mL Critically high 2.6-24.9 [facility] Comment on above: Performed By: #### G IPANEL #### [facility] [address] [place] [address] Dr. Layla Barrera AMYLASEon 03-11-2022 Amylase [Catalytic activity/Vol] 54 U/L Normal 25-115 [facility] Comment on above: Performed By: #### G IPANEL #### [facility] [address] [place] [address] Dr. Layla Barrera CBC AUTO DIFFon 03-11-2022 BASO # 0.1 103/ul Normal 0.0-0.1 [facility] Comment on above: Performed By: #### C BC #### [facility] [address] [place] [address] Dr. Layla Barrera Basophils/100 WBC (Bld) 0.7 % Normal 0.2-2.0 [facility] Comment on above: Performed By: #### C BC #### [facility] [address] [place] [address] Dr. Layla Barrera EO # 0.3 103/ul Normal 0.0-0.7 [facility] Comment on above: Performed By: #### C BC #### [facility] [address] [place] [address] Dr. Layla Barrera Eosinophils/100 WBC (Bld) 3.6 % Normal 0.9-7.0 [facility] Comment on above: Performed By: #### C BC #### [facility] [address] [place] [address] Dr. Layla Barrera Erythrocyte distribution width (RBC) [Ratio] 13.2 % Normal 11.0-15.0 [facility] Comment on above: Performed By: #### C BC #### [facility] [address] [place] [address] Dr. Layla Barrera Hematocrit (Bld) [Volume fraction] 43.0 % Normal 42.0-54.0 [facility] Comment on above: Performed By: #### C BC #### [facility] [address] [place] [address] Dr. Layla Barrera Hemoglobin (Bld) [Mass/Vol] 14.6 g/dL Normal 14.0-18.0 [facility] Comment on above: Performed By: #### C BC #### [facility] [address] [place] [address] Dr. Layla Barrera IG # 0.03 10e3/ul Normal 0.00-0.03 [facility] Comment on above: Performed By: #### C BC #### [facility] [address] [place] [address] Dr. Layla Barrera IG % 0.4 % Normal 0.0-0.5 [facility] Comment on above: Performed By: #### C BC #### [facility] [address] [place] [address] Dr. Layla Barrera LYMPH # 3.0 103/ul Normal 1.2-3.8 [facility] Comment on above: Performed By: #### C BC #### [facility] [address] [place] [address] Dr. Layla Barrera Lymphocytes/100 WBC (Bld) 41.2 % Normal 20.5-60.0 [facility] Comment on above: Performed By: #### C BC #### [facility] [address] [place] [address] Dr. Layla Barrera MANUAL DIFF REQ NO Normal [facility] Comment on above: Performed By: #### C BC #### [facility] [address] [address] [address] Layla Barrera MCH (RBC) [Entitic mass] 31.8 pg Normal 25.9-34.0 [facility] Comment on above: Performed By: #### C BC #### [facility] [address] [place] [address] Dr. Layla Barrera MCHC (RBC) [Mass/Vol] 34.0 g/dL Normal 29.9-35.2 [facility] Comment on above: Performed By: #### C BC #### [facility] [address] [place] [address] Dr. Layla Barrera MCV (RBC) [Entitic vol] 93.7 fL Normal 80.0-94.0 [facility] Comment on above: Performed By: #### C BC #### [facility] [address] [place] [address] Dr. Layla Barrera MONO # 0.6 103/ul Normal 0.3-0.8 [facility] Comment on above: Performed By: #### C BC #### [facility] [address] [place] [address] Dr. Layla Barrera Monocytes/100 WBC (Bld) 7.9 % Normal 1.7-12.0 [facility] Comment on above: Performed By: #### C BC #### [facility] [address] [place] [address] Dr. Layla Barrera NEUT # 3.3 103/ul Normal 1.4-6.5 [facility] Comment on above: Performed By: #### C BC #### [facility] [address] [place] [address] Dr. Layla Barrera Neutrophils/100 WBC (Bld) 46.2 % Normal 43.0-75.0 [facility] Comment on above: Performed By: #### C BC #### [facility] [address] [place] [address] Dr. Layla Barrera Platelet mean volume (Bld) [Entitic vol] 11.1 fL Normal 9.5-13.5 [facility] Comment on above: Performed By: #### C BC #### [facility] [address] [place], [place] [address] Dr. Layla Barrera PLT 171 103/ul Normal 150-450 [facility] Comment on above: Performed By: #### C BC #### [facility] [address] [place], [place] [address] Dr. Layla Barrera RBC 4.59 106/ul Critically low 4.70-6.10 [facility] Comment on above: Performed By: #### C BC #### [facility] [address] [place], [place] [address] Dr. Layla Barrera WBC 7.2 103/ul Normal 4.0-11.0 [facility] Comment on above: Performed By: #### C BC #### [facility] [address] [place], [place] [address] ABD/PELV W CONon [...] CJ MELTON Date: 2022-03-11 10:08 Normal [facility] GI PANEL (PCR)on 03-11-2022 Adenovirus F 40/41 Not detected Normal NOT DETECTED Th [facility] Comment on above: Performed By: #### G IPANEL #### [facility] [address] [place] [address] Dr. Layla Barrera Astrovirus Not detected Normal NOT DETECTED [facility] Comment on above: Performed By: #### G IPANEL #### [facility] [address] [place] [address] Dr. Layla Barrera C. Diff toxin A/B Not detected Normal NOT DETECTED [facility] Comment on above: Performed By: #### G IPANEL #### [facility] [address] [place] [address] Dr. Layla Barrera Campylobacter Not detected Normal NOT DETECTED [facility] Comment on above: Performed By: #### G IPANEL #### [facility] [address] [place] [address] Dr. Layla Barrera Cryptosporidium Not detected Normal NOT DETECTED [facility] Comment on above: Performed By: #### G IPANEL #### [facility] [address] [place] [address] Dr. Layla Barrera Cyclos. Cayetanensis Not detected Normal NOT DETECTED [facility] Comment on above: Performed By: #### G IPANEL #### [facility] [address] [place] [address] Dr. Layla Barrera E. Coli O157 Not Applicable Normal Not Applicable [facility] Comment on above: Performed By: #### G IPANEL #### [facility] [address] [place] [address] Dr. Layla Barrera E. histolytica Not detected Normal NOT DETECTED [facility] Comment on above: Performed By: #### G IPANEL #### [facility] [address] [place] [address] Dr. Layla Barrera EAEC Not detected Normal NOT DETECTED [facility] Comment on above: Performed By: #### G IPANEL #### [facility] [address] [place] [address] Dr. Layla Barrera EIEC Not detected Normal NOT DETECTED [facility] Comment on above: Performed By: #### G IPANEL #### [facility] [address] [place] [address] [address] Layla Barrera EPEC Detected Abnormal NOT DETECTED [facility] Comment on above: Performed By: #### G IPANEL #### [facility] [address] [place] [address] [address] Layla Barrera ETEC Not detected Normal NOT DETECTED [facility] Comment on above: Performed By: #### G IPANEL #### [facility] [address] [address] [address] Layla Hennessy Lamblia Not detected Normal NOT DETECTED [facility] Comment on above: Performed By: #### G IPANEL #### [facility] [address] [place] [address] Dr. Layla STEINBERG CONTROLS PASSED Normal [facility] Comment on above: Performed By: #### G IPANEL #### [facility] [address] [place] [address] Dr. Layla GLOVER HEADER GI PANEL BACTERIA Normal T [facility] Comment on above: Performed By: #### G IPANEL #### [facility] [address] [place] [address] Dr. Layla SARAVIA ECOLI GI PANEL DIARRHEAGENIC E.COLI / SHIGELLA Normal [facility] Comment on above: Performed By: #### G IPANEL #### [facility] [address] [place] [address] Dr. Layla SARAVIA INFO SEE BELOW Normal [facility] Comment on above: Result Comment: EAEC - Enteroaggregative E. Coli EPEC- Enteropathogenic E. Coli ETEC- Enterotoxigenic E. Coli lt/st STEC- Shigella-like toxin-producing E. Coli stx1/stx2 EIEC- Shigella/Enteroinvasive E. Coli Performed By: #### G IPANEL #### [facility] [address] [place] [address] Dr. Layla SARAVIA PARASITES GI PANEL PARASITES Normal [facility] Comment on above: Performed By: #### G IPANEL #### [facility] [address] [place] [address] [address] Layla Barrera [facility] GI PANEL VIRUSES Normal [facility] Comment on above: Performed By: #### G IPANEL #### [facility] [address] [place] [address] Dr. Layla Barrera Norovirus GI/GII Not detected Normal NOT DETECTED [facility] Comment on above: Performed By: #### G IPANEL #### [facility] [address] [place] [address] [address] Layla Barrera P. Shigelloides Not detected Normal NOT DETECTED [facility] Comment on above: Performed By: #### G IPANEL #### [facility] [address] [place] [address] Dr. Layla Barrera Rotavirus A Not detected Normal NOT DETECTED [facility] Comment on above: Performed By: #### G IPANEL #### [facility] [address] [place] [address] Dr. Layla Barrera Salmonella Not detected Normal NOT DETECTED [facility] Comment on above: Performed By: #### G IPANEL #### [facility] [address] [place] [address] Dr. Layla Barrera Sapovirus Not detected Normal NOT DETECTED [facility] Comment on above: Performed By: #### G IPANEL #### [facility] [address] [place] [address] Dr. Layla Barrera STEC Not detected Normal NOT DETECTED [facility] Comment on above: Performed By: #### G IPANEL #### [facility] [address] [place] [address] Dr. Layla Barrera Vibrio Not detected Normal NOT DETECTED [facility] Comment on above: Performed By: #### G IPANEL #### [facility] [address] [place] [address] Dr. Layla Barrera Vibrio Cholera Not detected Normal NOT DETECTED [facility] Comment on above: Performed By: #### G IPANEL #### [facility] [address] [place] [address] Dr. Layla Barrera Y. Enterocolitica Not detected Normal NOT DETECTED [facility] Comment on above: Performed By: #### G IPANEL #### [facility] [address] [place] [address] Dr. Layla Barrera GLYCOHEMOGLOBIN A1Con 2021 ADA RECOMMENDATION SEE BELOW Normal [facility] Comment on above: Result Comment: ADA RECOMMENDED LIMIT 4.0 - 6.0 ADA THERAPEUTIC TARGET < 7.0 ACTION SUGGESTED > 7.0 Performed By: #### G IPANEL #### [facility] [address] [place] [address] Dr. Layla Barrera Glucose [Mass/Vol] 134 mg/dL Normal [facility] Comment on above: Performed By: #### G IPANEL #### [facility] [address] [place] [address] Dr. Layla Barrera HbA1c (Bld) [Mass fraction] 6.3 % Critically high 4.5-6.2 [facility] Comment on above: Performed By: #### G IPANEL #### [facility] [address] [place] [address] Dr. Layla Barrera LIPASEon 03-11-2022 Lipase [Catalytic activity/Vol] 82.0 U/L Normal 73.0-393.0 [facility] Comment on above: Performed By: #### G IPANEL #### [facility] [address] [place] [address] Dr. Layla Barrera LIPID PROFILEon 03-11-2022 CHOL-HDL RATIO NORM SEE BELOW Normal [facility] Comment on above: Result Comment: 3.3 - 4.4 LOW RISK 4.4 - 7.1 AVERAGE RISK 7.1 - 11.0 MODERATE RISK >11.0 HIGH RISK Performed By: #### G IPANEL #### [facility] [address] [place] [address] Dr. Layla Barrera Cholesterol [Mass/Vol] 216 mg/dL Critically high <=200 [facility] Comment on above: Performed By: #### G IPANEL #### [facility] [address] [place] [address] Dr. Layla Barrera Cholesterol in HDL [Mass/Vol] 47 mg/dL Normal 40-60 [facility] Comment on above: Performed By: #### G IPANEL #### [facility] [address] [place] [address] [address] Layla Barrera Cholesterol in LDL [Mass/Vol] 134.4 mg/dL Normal [facility] Comment on above: Performed By: #### G IPANEL #### [facility] [address] [place] [address] [address] Layla Barrera Cholesterol.total/Chol esterol in HDL [Mass ratio] 4.6 {ratio} Normal [facility] Comment on above: Performed By: #### G IPANEL #### [facility] [address] [place] [address] Dr. Layla Barrera HDL NORMAL > or = 60 mg/dl - LOW CARDIOVASCULAR RISK <40 mg/dl - HIGH CARDIOVASCULAR RISK Normal [facility] Comment on above: Performed By: #### G IPANEL #### [facility] [address] [place] [address] Dr. Layla Barrera LDL CALC NORMAL SEE BELOW Normal [facility] Comment on above: Result Comment: <100 mg/dl OPTIMAL 100 - 129 mg/dl NEAR OR ABOVE OPTIMAL 130 - 159 mg/dl BORDERLINE HIGH 160 - 189 mg/dl HIGH >190 mg/dl VERY HIGH Performed By: #### G IPANEL #### [facility] [address] [place] [address] Dr. Layla Barrera Triglyceride [Mass/Vol] 173 mg/dL Critically high <=150 [facility] Comment on above: Performed By: #### G IPANEL #### [facility] [address] [place] [address] [address] Layla Barrera VLDL CALC 34.6 mg/dL Normal [facility] Comment on above: Performed By: #### G IPANEL #### [facility] [address] [place] [address] Dr. Layla Barrera OCC BLD IMMUNO SCREENon OCCULT BLOOD Negative Normal NEGATIVE [facility] Comment on above: Performed By: #### C BC #### [facility] [address] [place] [address] Dr. Layla Barrera PROF 14(COMP METB)on 022 Albumin [Mass/Vol] 3.7 g/dL Normal 3.4-5.0 [facility] Comment on above: Performed By: #### C BC #### [facility] [address] [place] [address] Dr. Layla Barrera Albumin/Globulin [Mass ratio] 1.1 {ratio} Normal [facility] Comment on above: Performed By: #### C BC #### [facility] [address] [place] [address] [address] Layla Barrera ALP [Catalytic activity/Vol] 90 U/L Normal 46-116 [facility] Comment on above: Performed By: #### C BC #### [facility] [address] [place] [address] Dr. Layla Barrera ALT [Catalytic activity/Vol] 66 U/L Critically high 16-63 [facility] Comment on above: Performed By: #### C BC #### [facility] [address] [place] [address] Dr. Layla Barrera Anion gap [Moles/Vol] 12.8 mmol/L Normal Th [facility] Comment on above: Performed By: #### C BC #### [facility] [address] [place] [address] Dr. Layla Barrera AST [Catalytic activity/Vol] 32 U/L Normal 15-37 [facility] Comment on above: Performed By: #### C BC #### [facility] [address] [place] [address] Dr. Layla Barrera Bilirubin [Mass/Vol] 0.7 mg/dL Normal 0.2-1.0 [facility] Comment on above: Performed By: #### C BC #### [facility] [address] [place] [address] Dr. Layla Barrera Calcium [Mass/Vol] 8.9 mg/dL Normal 8.5-10.1 [facility] Comment on above: Performed By: #### C BC #### [facility] [address] [place] [address] Dr. Layla Barrera Chloride [Moles/Vol] 100 mmol/L Normal 98-107 [facility] Comment on above: Performed By: #### C BC #### [facility] [address] [place] [address] [address] Layla Barrera CO2 [Moles/Vol] 27.9 mmol/L Normal 21.0-32.0 [facility] Comment on above: Performed By: #### C BC #### [facility] [address] [place] [address] [address] Layla Barrera Creatinine [Mass/Vol] 1.30 mg/dL Normal 0.70-1.30 [facility] Comment on above: Performed By: #### C BC #### [facility] [address] [place] [address] [address] Layla Barrera EGFR-AF DANISH >60 Normal >=60 [facility] Comment on above: Performed By: #### C BC #### [facility] [address] [place] [address] Dr. Layla Barrera EGFR-NON AF DANISH 53 mL/min/1.73m2 Critically low >=60 [facility] Comment on above: Performed By: #### C BC #### [facility] [address] [place] [address] [address] Layla Barrera Globulin (S) [Mass/Vol] 3.3 g/dL Normal [facility] Comment on above: Performed By: #### C BC #### [facility] [address] [place] [address] [address] Layla Barrera Glucose [Mass/Vol] 137 mg/dL Critically high 74-106 T [facility] Comment on above: Performed By: #### C BC #### [facility] [address] [place] [address] [address] Layla Barrera Potassium [Moles/Vol] 3.7 mmol/L Normal 3.5-5.1 [facility] Comment on above: Performed By: #### C BC #### [facility] [address] [place] [address] [address] Layla Barrera Protein [Mass/Vol] 7.0 g/dL Normal 6.4-8.2 [facility] Comment on above: Performed By: #### C BC #### [facility] [address] [place] [address] [address] Layla Barrera Sodium [Moles/Vol] 137 mmol/L Normal 136-145 [facility] Comment on above: Performed By: #### C BC #### [facility] [address] [place], [place] [address] Dr. Layla Barrera Urea nitrogen [Mass/Vol] 20.0 mg/dL Critically high 7.0-18.0 [facility] Comment on above: Performed By: #### C BC #### [facility] [address] [address] [address] Layla Barrera Urea nitrogen/Creatinine [Mass ratio] 15.4 mg/mg Normal [facility] Comment on above: Performed By: #### C BC #### [facility] [address] [place] [address] [address] Layla Barrera URIC ACID SERUMon 03-11-2022 Urate [Mass/Vol] 8.3 mg/dL Critically high 3.5-7.2 [facility] Comment on above: Performed By: #### G IPANEL #### [facility] [address] [place] [address] [address] Layla Barrera Office Visit (Cardiology)on 12-28-2021 [...] By signing my name below, I, Krista Manleyebonie HERNANDEZ.,Scribe, attest that this documentation has been prepared [...] TABLET DAILY DIRECTED. Humira Pen KITUSE DIRECTED. Irbesartan-hydroCHLO ROthiazide 300-12.5 MG Oral TabletTAKE 1 TABLET ONCE [...] 09:51AM Hea (more content not included)... Normal [email or web address] Tobacco Screening.on 022 Fall risk assessment a) No falls within the last year [facility] Heart-Sandu beto 250 DO Work Phone: Tobacco use status [facility] b) No [facility] Heart-Sandu beto 250 DO Work Phone: [facility] CARDIAC STRESS/REST INJE CTIONon 12-21-2021 [facility] CARDIAC STRESS/REST INJECTION Patient Name: TRAVIS COBURN STUDY: MYOCARDIAL PERFUSION STRESS TEST WITH LEXISCAN Performing facility: [facility] Provider: Azalea Deras MD, FACC PCP: Dr. Navarrete Supervising provider: Shaquille aRmos DO, [facility] INDICATION: CAD; Dyspnea HISTORY: Gender: M; Age: 81 y/o ; Height: 0 cm; Weight: 378.2156368 kg. CAD; High Cholesterol; HTN; SOB; Fatigue; Quit smoking 30 years ago. Cardiac catheterization on 2005. COMPARISON: Previous nuclear testing completed [id number] at [facility]. ACCESSION NUMBER(S): [id number]; [id number]; [id number] ORDERING CLINICIAN: JOHNNIE DERAS TECHNIQUE: TWO DAY protocol. Stress injection: Date:12-21-21, 33.9 mCi of Myoview IV 20 seconds after rapid injection of Lexiscan. Rest injection: Date: 12-22-21, 35.6 mCi of Myoview IV at rest. The patient had a rapid injection of 0.4 mg of Lexiscan IV over 10 seconds. Imaging was performed by gated tomographic technique. Reason for Lexiscan: dizziness/unsteady/f all risk STRESS TEST DATA: Resting heart rate [...] Electronically signed by: ABDOUL TIMMONS MD Normal [facility] No Panel Informationon 12-21 Normal [facility] Heart-Sandu beto 250 DO Work Phone: Office Visit (Cardiology)on [...] Stress/Rest Nuclear Med Order; Status:Hold For - Scheduling,Retrospec tive Authorization; Requested for:08Dec2021; Radiologist to Determine Optimal [...] TABLET DAILY DIRECTED. Humira Pen KITUSE DIRECTED. Irbesartan-hydroCHLO ROthiazide 300-12.5 MG Oral TabletTAKE 1 TABLET ONCE [...] DAILY. Allergies (more content not included)... Normal [employer] Tobacco Screening.on 022 Adult depression screening assessment No [facility] Spiracur 250 DO Work Phone: Fall risk assessment a) No falls within the last year [facility] Spiracur 250 DO Work Phone: Tobacco use status CP b) No [facility] Spiracur 250 DO Work Phone: C REACTIVE PROTEINon 022 CRP [Mass/Vol] 3.3 mg/L Normal 0.0-7.0 [facility] Comment on above: Performed By: #### 6 [id number] #### [facility] [address] [place] [address], [facility] CBC AUTO DIFFon 11-25-2021 BASO # 0.0 103/ul Normal 0.0-0.1 [facility] Comment on above: Performed By: #### G IPANEL #### [facility] [address] [address] [address] Layla Barrera Basophils/100 WBC (Bld) 0.5 % Normal 0.2-2.0 [facility] Comment on above: Performed By: #### G IPANEL #### [facility] [address] [place] [address] Dr. Layla Barrera EO # 0.2 103/ul Normal 0.0-0.7 [facility] Comment on above: Performed By: #### G IPANEL #### [facility] [address] [place] [address] Dr. Layla Barrera Eosinophils/100 WBC (Bld) 3.0 % Normal 0.9-7.0 [facility] Comment on above: Performed By: #### G IPANEL #### [facility] [address] [place] [address] Dr. Layla Barrera Erythrocyte distribution width (RBC) [Ratio] 13.7 % Normal 11.0-15.0 [facility] Comment on above: Performed By: #### G IPANEL #### [facility] [address] [place] [address] Dr. Layla Barrera Hematocrit (Bld) [Volume fraction] 40.0 % Critically low 42.0-54.0 [facility] Comment on above: Performed By: #### G IPANEL #### [facility] [address] [place] [address] Dr. Layla Barrera Hemoglobin (Bld) [Mass/Vol] 13.4 g/dL Critically low 14.0-18.0 [facility] Comment on above: Performed By: #### G IPANEL #### [facility] [address] [place] [address] Dr. Layla Barrera IG # 0.02 10e3/ul Normal 0.00-0.03 [facility] Comment on above: Performed By: #### G IPANEL #### [facility] [address] [place] [address] Dr. Layla Barrera IG % 0.3 % Normal 0.0-0.5 [facility] Comment on above: Performed By: #### G IPANEL #### [facility] [address] [place] [address] Dr. Layla Barrera LYMPH # 2.4 103/ul Normal 1.2-3.8 [facility] Comment on above: Performed By: #### G IPANEL #### [facility] [address] [place] [address] Dr. Layla Barrera Lymphocytes/100 WBC (Bld) 39.6 % Normal 20.5-60.0 [facility] Comment on above: Performed By: #### G IPANEL #### [facility] [address] [place] [address] Dr. Layla Barrera MANUAL DIFF REQ NO Normal [facility] Comment on above: Performed By: #### G IPANEL #### [facility] [address] [place] [address] Dr. Layla Barrera MCH (RBC) [Entitic mass] 31.3 pg Normal 25.9-34.0 [facility] Comment on above: Performed By: #### G IPANEL #### [facility] [address] [place] [address] Dr. Layla Barrera MCHC (RBC) [Mass/Vol] 33.5 g/dL Normal 29.9-35.2 [facility] Comment on above: Performed By: #### G IPANEL #### [facility] [address] [place] [address] Dr. Layla Barrera MCV (RBC) [Entitic vol] 93.5 fL Normal 80.0-94.0 [facility] Comment on above: Performed By: #### G IPANEL #### [facility] [address] [place] [address] Dr. Layla Barrera MONO # 0.6 103/ul Normal 0.3-0.8 [facility] Comment on above: Performed By: #### G IPANEL #### [facility] [address] [place] [address] Dr. Layla Barrera Monocytes/100 WBC (Bld) 9.3 % Normal 1.7-12.0 [facility] Comment on above: Performed By: #### G IPANEL #### [facility] [address] [place] [address] [address] Layla Barrera NEUT # 2.8 103/ul Normal 1.4-6.5 [facility] Comment on above: Performed By: #### G IPANEL #### [facility] [address] [place] [address] Dr. Layla Barrera Neutrophils/100 WBC (Bld) 47.3 % Normal 43.0-75.0 [facility] Comment on above: Performed By: #### G IPANEL #### [facility] [address] [place] [address] Dr. Layla Barrera Platelet mean volume (Bld) [Entitic vol] 10.4 fL Normal 9.5-13.5 [facility] Comment on above: Performed By: #### G IPANEL #### [facility] [address] [place] [address] Dr. Layla Barrera PLT 184 103/ul Normal 150-450 [facility] Comment on above: Performed By: #### G IPANEL #### [facility] [address] [place] [address] Dr. Layla Barrera RBC 4.28 106/ul Critically low 4.70-6.10 [facility] Comment on above: Performed By: #### G IPANEL #### [facility] [address] [place] [address] Dr. Layla Barrera WBC 5.9 103/ul Normal 4.0-11.0 [facility] Comment on above: Performed By: #### G IPANEL #### [facility] [address] [place] [address] Dr. Layla Barrera CBC W/DIFFon 11-25-2021 ABS IMM GRANS 0.0 10*3/uL Normal 0.0-0.2 [facility] Comment on above: Performed By: #### 5 [id number], [id number] #### [facility] [address] [facility] [place] [address], [facility] ABS NEUTROPHILS 3.6 10*3/uL Normal 1.6-7.6 [facility] Comment on above: Performed By: #### 5 [id number], [id number] #### [facility] [address] [place] [address], [facility] Basophils (Bld) [#/Vol] 0.0 10*3/uL Normal 0.0-0.2 [facility] Comment on above: Performed By: #### 5 [id number], [id number] #### [facility] [address] [place] [address], [facility] Basophils/100 WBC (Bld) 0.4 % Normal 0.0-1.0 [facility] Comment on above: Performed By: #### 5 [id number], [id number] #### [facility] [address] [place] [address], [facility] Eosinophils (Bld) [#/Vol] 0.2 10*3/uL Normal 0.0-0.5 [facility] Comment on above: Performed By: #### 5 [id number], [id number] #### [facility] [address] [place] [address], [facility] Eosinophils/100 WBC (Bld) 2.2 % Normal 0.0-6.0 [facility] Comment on above: Performed By: #### 5 6505, 72859 #### [facility] [address] [place] [id number], [facility] Erythrocyte distribution width (RBC) [Ratio] 13.6 % Normal 11.5-15.0 [facility] Comment on above: Performed By: #### 5 6505, 93564 #### [facility] [address] [place] [address], [facility] Hematocrit (Bld) [Volume fraction] 40.4 % Normal 39.0-50.0 [facility] Comment on above: Performed By: #### 5 6505, [id number] #### [facility] [address] [place] [address], [place] Hemoglobin (Bld) [Mass/Vol] 13.7 g/dL Normal 13.0-17.0 [facility] Comment on above: Performed By: #### 5 6505, 07110 #### [facility] [address] [address], [facility] IMMATURE GRANS 0.3 % Normal 0.0-1.0 [facility] Comment on above: Performed By: #### 5 6505, [id number] #### [facility] [address] [facility] [place] [address], [facility] Lymphocytes (Bld) [#/Vol] 2.4 10*3/uL Normal 1.2-4.0 [facility] Comment on above: Performed By: #### 5 6505, 88256 #### [facility] [address] Lymphocytes/100 WBC (Bld) 35.0 % Normal 20.0-45.0 [facility] Comment on above: Performed By: #### 5 6505, 06510 #### [facility] [address] [facility] [place] [address], [facility] MCH (RBC) [Entitic mass] 31.8 pg Normal 27.0-33.0 [facility] Comment on above: Performed By: #### 5 6505, 66681 #### [facility] [address] [place] [address], [facility] MCHC (RBC) [Mass/Vol] 33.9 g/dL Normal 32.0-35.0 [facility] Comment on above: Performed By: #### 5 [id number], [id number] #### [facility] [address] [facility] [place] [address], [facility] MCV (RBC) [Entitic vol] 93.7 fL Normal 82.0-98.0 [facility] Comment on above: Performed By: #### 5 [id number], 08529 #### [facility] [address] [facility] [place] [address], [facility] Monocytes (Bld) [#/Vol] 0.6 10*3/uL Normal 0.1-1.0 [facility] Comment on above: Performed By: #### 5 6505, 96427 #### [facility] [address] [place] [address], [facility] MONOS 8.4 % Normal 5.0-12.0 [facility] Comment on above: Performed By: #### 5 6505, 71980 #### [facility] [address] [place] [address], [facility] Neutrophils/100 WBC (Bld) 53.7 % Normal 40.0-72.0 [facility] Comment on above: Performed By: #### 5 [id number], 82612 #### [facility] [address] [facility] [place] [address], [facility] Nucleated RBC/100 WBC (Bld) [Ratio] 0 % Normal 0-0 [facility] Comment on above: Performed By: #### 5 [id number], 89094 #### [facility] [address] [facility] [place] [address], [facility] PLAT CNT 198 10*3/uL Normal 150-400 [facility] Comment on above: Performed By: #### 5 6505, 73473 #### [facility] [address] [facility] [place] [address], [facility] RBC (Bld) [#/Vol] 4.31 10*6/uL Normal 4.20-5.70 [facility] Comment on above: Performed By: #### 5 6505, 14350 #### [facility] [address] [facility] [place] [address], [facility] WBC (Bld) [#/Vol] 6.75 10*3/uL Normal 4.00-10.60 [facility] Comment on above: Performed By: #### 5 6505, 51112 #### [facility] [address] [place] [address], [place] COMP METABOLIC PANELon 11-25 Albumin [Mass/Vol] 4.1 g/dL Normal 3.5-5.7 [facility] Comment on above: Performed By: #### 0 0121 #### [facility] [address] [place] [address], [place] ALKALINE PHOSPH 87 IU/L Normal 34-104 [facility] Comment on above: Performed By: #### 0 0121 #### [facility] [address] [place] [address], [place] ALT [Catalytic activity/Vol] 47 U/L Normal 7-52 [facility] Comment on above: Performed By: #### 0 0121 #### [facility] [address] [place] [address], [place] AST [Catalytic activity/Vol] 29 U/L Normal 13-39 [facility] Comment on above: Performed By: #### 0 0121 #### [facility] [address] [place] [address], [place] Bilirubin [Mass/Vol] 0.7 mg/dL Normal 0.3-1.0 [facility] Comment on above: Performed By: #### 0 0121 #### [facility] [address] [place] [address], [place] Calcium [Mass/Vol] 9.7 mg/dL Normal 8.6-10.3 [facility] Comment on above: Performed By: #### 0 0121 #### [facility] [address] [place] [address], [place] Chloride [Moles/Vol] 103 mmol/L Normal 98-107 [facility] Comment on above: Performed By: #### 0 0121 #### [facility] [address] [place] [address], [place] CO2 [Moles/Vol] 30 mmol/L Normal 21-31 [facility] Comment on above: Performed By: #### 0 0121 #### [facility] [address] [place] [address], [place] Creatinine [Mass/Vol] 1.06 mg/dL Normal 0.70-1.30 [facility] Comment on above: Performed By: #### 0 0121 #### [facility] [address] [place] [address], [place] GFR/1.73 sq M.predicted among blacks MDRD (S/P/Bld) [Vol rate/Area] mL/min/{1.73_m2} Normal >60 [facility] Comment on above: Result Comment: Calc ulation may not be valid for patients over 70 years Performed By: #### 0 0121 #### [facility] [address] [place] [address], [place] GFR/1.73 sq M.predicted among non-blacks MDRD (S/P/Bld) [Vol rate/Area] mL/min/{1.73_m2} Normal >60 [facility] Comment on above: Result Comment: Calc ulation may not be valid for patients over 70 years Performed By: #### 0 0121 #### [facility] [address] [place] [address], [place] Glucose [Mass/Vol] 94 mg/dL Normal 70-100 [facility] Comment on above: Performed By: #### 0 0121 #### [facility] [address] [place] [address], [place] Potassium [Moles/Vol] 4.7 mmol/L Normal 3.5-5.1 [facility] Comment on above: Performed By: #### 0 0121 #### [facility] [address] [place] [address], [place] Protein [Mass/Vol] 6.6 g/dL Normal 6.0-8.3 [facility] Comment on above: Performed By: #### 0 0121 #### [facility] [address] [place] [address], [facility] Sodium [Moles/Vol] 138 mmol/L Normal 136-145 [facility] Comment on above: Performed By: #### 0 0121 #### [facility] [address] [place] [address], [facility] Urea nitrogen [Mass/Vol] 17 mg/dL Normal 7-25 [facility] Comment on above: Performed By: #### 0 0121 #### [facility] [address] [place] [address], [facility] FREE THYROXINE INDEX T7on FTI 2.38 Normal 1.30-4.50 [facility] Comment on above: Performed By: #### T SH, CMP, T7, MG #### [facility] [address] [place] [address] [address] Layla Barrera T3U 34.0 % Normal 33.0-40.0 [facility] Comment on above: Performed By: #### T SH, CMP, T7, MG #### [facility] [address] [place] [address] [address] Layla Barrera T4 [Mass/Vol] 7.00 ug/dL Normal 4.50-12.10 [facility] Comment on above: Performed By: #### T SH, CMP, T7, MG #### [facility] [address] [place] [address] [address] Layla Barrera MAGNESIUMon 11-25-2021 Magnesium [Mass/Vol] 1.7 mg/dL Critically low 1.8-2.4 [facility] Comment on above: Performed By: #### T SH, CMP, T7, MG #### [facility] [address] [place] [address] Dr. Layla Barrera PROF 14(COMP METB)on 022 Albumin [Mass/Vol] 3.5 g/dL Normal 3.4-5.0 [facility] Comment on above: Performed By: #### T SH, CMP, T7, MG #### [facility] [address] [place] [address] [address] Layla Barrera Albumin/Globulin [Mass ratio] 1.1 {ratio} Normal [facility] Comment on above: Performed By: #### T SH, CMP, T7, MG #### [facility] [address] [place] [address] [address] Layla Barrera ALP [Catalytic activity/Vol] 97 U/L Normal 46-116 [facility] Comment on above: Performed By: #### T SH, CMP, T7, MG #### [facility] [address] [place] [address] [address] Layla Barrera ALT [Catalytic activity/Vol] 64 U/L Critically high 16-63 [facility] Comment on above: Performed By: #### T SH, CMP, T7, MG #### [facility] [address] [place] [address] Dr. Layla Barrera Anion gap [Moles/Vol] 11.6 mmol/L Normal [facility] Comment on above: Performed By: #### T SH, CMP, T7, MG #### [facility] [address] [place] [address] [address] Layla Barrera AST [Catalytic activity/Vol] 27 U/L Normal 15-37 [facility] Comment on above: Performed By: #### T SH, CMP, T7, MG #### [facility] [address] [place] [address] [address] Layla Barrera Bilirubin [Mass/Vol] 0.8 mg/dL Normal 0.2-1.0 [facility] Comment on above: Performed By: #### T SH, CMP, T7, MG #### [facility] [address] [place] [address] [address] Layla Barrera Calcium [Mass/Vol] 9.0 mg/dL Normal 8.5-10.1 [facility] Comment on above: Performed By: #### T SH, CMP, T7, MG #### [facility] [address] [place] [address] [address] Layla Barrera Chloride [Moles/Vol] 102 mmol/L Normal 98-107 [facility] Comment on above: Performed By: #### T SH, CMP, T7, MG #### [facility] [address] [place] [address] [address] Layla Barrera CO2 [Moles/Vol] 27.3 mmol/L Normal 21.0-32.0 [facility] Comment on above: Performed By: #### T SH, CMP, T7, MG #### [facility] [address] [place] [address] Dr. Layla Barrera Creatinine [Mass/Vol] 1.15 mg/dL Normal 0.70-1.30 [facility] Comment on above: Performed By: #### T SH, CMP, T7, MG #### [facility] [address] [place] [address] Dr. Layla Barrera EGFR-AF DANISH >60 Normal >=60 [facility] Comment on above: Performed By: #### T SH, CMP, T7, MG #### [facility] [address] [place] [address] Dr. Layla Barrera EGFR-NON AF DANISH >60 Normal >=60 [facility] Comment on above: Performed By: #### T SH, CMP, T7, MG #### [facility] [address] [place] [address] Dr. Layla Barrera Globulin (S) [Mass/Vol] 3.3 g/dL Normal [facility] Comment on above: Performed By: #### T SH, CMP, T7, MG #### [facility] [address] [place] [address] Dr. Layla Barrera Glucose [Mass/Vol] 144 mg/dL Critically high 74-106 [facility] Comment on above: Performed By: #### T SH, CMP, T7, MG #### [facility] [address] [place] [address] Dr. Layla Barrera Potassium [Moles/Vol] 3.9 mmol/L Normal 3.5-5.1 [facility] Comment on above: Performed By: #### T SH, CMP, T7, MG #### [facility] [address] [place] [address] Dr. Layla Barrera Protein [Mass/Vol] 6.8 g/dL Normal 6.4-8.2 [facility] Comment on above: Performed By: #### T SH, CMP, T7, MG #### [facility] [address] [place] [address] [address] Layla Barrera Sodium [Moles/Vol] 137 mmol/L Normal 136-145 [facility] Comment on above: Performed By: #### T SH, CMP, T7, MG #### [facility] [address] [place] [address] [address] Layla Barrera Urea nitrogen [Mass/Vol] 16.0 mg/dL Normal 7.0-18.0 [facility] Comment on above: Performed By: #### T SH, CMP, T7, MG #### [facility] [address] [address] [address] Layla Barrera Urea nitrogen/Creatinine [Mass ratio] 13.9 mg/mg Normal [facility] Comment on above: Performed By: #### T SH, CMP, T7, MG #### [facility] [address] [place] [address] Dr. Layla Barrera SEDIMENTATION RATEon 022 SED RATE 10 mm/hr Normal 0-10 [facility] Comment on above: Performed By: #### 5 6506, 51512 #### [facility] [address] TSHon 11-25-2021 TSH 2.406 uIU/mL Normal 0.358-3.740 [facility] Comment on above: Performed By: #### T SH, CMP, T7, MG #### [facility] [address] [place] [address] Dr. Layla Barrera TSH RANGE SEE BELOW Normal [facility] Comment on above: Result Comment: <0.3 4 UIU/ml HYPERTHYROID 0.34-5.60 UIU/ml EUTHYROID >5.60 UIU/ml HYPOTHYROID Performed By: #### T SH, CMP, T7, MG #### [facility] [address] [place] [address] [address] Layla Barrera CBC W/DIFFon 05-27-2021 ABS IMM GRANS 0.0 10*3/uL Normal 0.0-0.2 [facility] Comment on above: Performed By: #### 5 0103 #### [facility] [address] [place] [address], [facility] ABS NEUTROPHILS 3.8 10*3/uL Normal 1.6-7.6 [facility] Comment on above: Performed By: #### 5 0103 #### [facility] [address] [place] [address], [facility] Basophils (Bld) [#/Vol] 0.0 10*3/uL Normal 0.0-0.2 [facility] Comment on above: Performed By: #### 5 0103 #### [facility] [address] [place] [address], [facility] Basophils/100 WBC (Bld) 0.6 % Normal 0.0-1.0 [facility] Comment on above: Performed By: #### 5 0103 #### [facility] [address] [place] [address], [facility] Eosinophils (Bld) [#/Vol] 0.2 10*3/uL Normal 0.0-0.5 [facility] Comment on above: Performed By: #### 5 0103 #### [facility] [address] [place] [address], [facility] Eosinophils/100 WBC (Bld) 2.7 % Normal 0.0-6.0 [facility] Comment on above: Performed By: #### 5 0103 #### [facility] [address] Erythrocyte distribution width (RBC) [Ratio] 13.4 % Normal 11.5-15.0 [facility] Comment on above: Performed By: #### 5 0103 #### [facility] [address] Hematocrit (Bld) [Volume fraction] 41.7 % Normal 39.0-50.0 [facility] Comment on above: Performed By: #### 5 0103 #### [facility] [address] [place] [address], [facility] Hemoglobin (Bld) [Mass/Vol] 14.3 g/dL Normal 13.0-17.0 [facility] Comment on above: Performed By: #### 5 0103 #### [facility] [address] [address], [facility] IMMATURE GRANS 0.6 % Normal 0.0-1.0 [facility] Comment on above: Performed By: #### 102 #### [facility] [address] [facility]. [address] Lymphocytes (Bld) [#/Vol] 2.5 10*3/uL Normal 1.2-4.0 [facility] Comment on above: Performed By: #### 5 3 #### [facility] [address] Lymphocytes/100 WBC (Bld) 35.0 % Normal 20.0-45.0 [facility] Comment on above: Performed By: #### 5 3 #### [facility] [address] [place] [address], [facility] MCH (RBC) [Entitic mass] 31.6 pg Normal 27.0-33.0 [facility] Comment on above: Performed By: #### 5 0103 #### [facility] [address] [facility] [place] [address], [facility] MCHC (RBC) [Mass/Vol] 34.3 g/dL Normal 32.0-35.0 [facility] Comment on above: Performed By: #### 5 3 #### [facility] [address] [facility] [facility] [place] [place] [address], [facility] MCV (RBC) [Entitic vol] 92.3 fL Normal 82.0-98.0 [facility] Comment on above: Performed By: #### 5 0103 #### [facility] [address] [place] [address], [facility] Monocytes (Bld) [#/Vol] 0.5 10*3/uL Normal 0.1-1.0 [facility] Comment on above: Performed By: #### 0103 #### [facility] [address] [place] [address], [facility] MONOS 7.4 % Normal 5.0-12.0 [facility] Comment on above: Performed By: #### 102 #### [facility] [address] [place] [address], [facility] Neutrophils/100 WBC (Bld) 53.7 % Normal 40.0-72.0 [facility] Comment on above: Performed By: #### 102 #### [facility] [address] [place] [address], [facility] Nucleated RBC/100 WBC (Bld) [Ratio] 0 % Normal 0-0 [facility] Comment on above: Performed By: #### 102 #### [facility] [address] [address], [facility] PLAT CNT 194 10*3/uL Normal 150-400 [facility] Comment on above: Performed By: #### 102 #### [facility] [address] [address], [facility] RBC (Bld) [#/Vol] 4.52 10*6/uL Normal 4.20-5.70 [facility] Comment on above: Performed By: #### 102 #### [facility] [address] [place] [address], [facility] WBC (Bld) [#/Vol] 7.02 10*3/uL Normal 4.00-10.60 [facility] Comment on above: Performed By: #### 5 0103 #### [facility] [address] [place] [address], [facility] LIVER BATTERYon 05-27-2021 Albumin [Mass/Vol] 4.1 g/dL Normal 3.5-5.7 [facility] Comment on above: Performed By: #### 9 9909 #### [facility] [address] [place] [address], [facility] ALKALINE PHOSPH 75 IU/L Normal 34-104 [facility] Comment on above: Performed By: #### 9 9909 #### [facility] [address] [place] [address], [facility] ALT [Catalytic activity/Vol] 42 U/L Normal 7-52 [facility] Comment on above: Performed By: #### 9 9909 #### [facility] [address] [place] [address], [facility] AST [Catalytic activity/Vol] 27 U/L Normal 13-39 [facility] Comment on above: Performed By: #### 9 9909 #### [facility] [address] [place] [address], [place] Bilirubin [Mass/Vol] 0.5 mg/dL Normal 0.3-1.0 [facility] Comment on above: Performed By: #### 9 9909 #### [facility] [address] [place] [address], [place] Bilirubin.direct [Mass/Vol] 0.1 mg/dL Normal 0.0-0.2 [facility] Comment on above: Performed By: #### 9 9909 #### [facility] [address] [place] [address], [facility] Protein [Mass/Vol] 6.8 g/dL Normal 6.0-8.3 [facility] Comment on above: Performed By: #### 9 9909 #### [address] [place]. [address] Vital Signs Date Time Vital Sign Value Performing Clinician Facility 08-20-2024 15:26-0500 Body height 175.3 cm Fatou Cummins B[employer] SAW OPERATOR-RN LACTATION CONSULTANT Work Phone: [facility] 08-20-2024 15:26-0500 Body mass index (BMI) [Ratio] 35.88 kg/m2 Fatou Cummins BAND SAW OPERATOR-RN LACTATION CONSULTANT Work Phone: [facility] 08-20-2024 15:26-0500 Body weight 110.22 kg Fatou Cummins BAND SAW OPERATOR-RN LACTATION CONSULTANT Work Phone: [facility] 08-20-2024 15:26-0500 Diastolic blood pressure 68 mm[Hg] Fatou Placido BAND SAW OPERATOR-RN LACTATION CONSULTANT Work Phone: [facility] 08-20-2024 15:26-0500 Heart rate 80 /min Fatou Cummins BAND SAW OPERATOR-RN LACTATION CONSULTANT Work Phone: [facility] 08-20-2024 15:26-0500 Systolic blood pressure 140 mm[Hg] Fatou Cummins BAND SAW OPERATOR-RN LACTATION CONSULTANT Work Phone: [facility] 08-06-2024 11:33-0500 Diastolic blood pressure 82 mm[Hg] [address] 08-06-2024 11:33-0500 Heart rate 76 /min [address] 08-06-2024 11:33-0500 Systolic blood pressure 136 mm[Hg] [address] 07-26-2024 08:54-0500 Body height 170.2 cm Cj Danielle DO Work Phone: [facility] 07-26-2024 08:54-0500 Body mass index (BMI) [Ratio] 38.22 kg/m2 Cj Danielle DO Work Phone: [facility] 07-26-2024 08:54-0500 Body weight 110.68 kg Cj Danielle DO Work Phone: [facility] 07-25-2024 14:26-0500 Body height 175.[address] 07-25-2024 14:26-0500 Body mass index (BMI) [Ratio] 36.33 kg/m2 [address] 07-25-2024 14:26-0500 Body weight 111.[address] 07-25-2024 14:26-0500 Diastolic blood pressure 74 mm[Hg] [address] 07-25-2024 14:26-0500 Systolic blood pressure 126 mm[Hg] [address] 07-23-2024 09:39-0500 Body height 175.3 cm Fatou Cummins BAND SAW OPERATOR-RN LACTATION CONSULTANT Work Phone: [facility] 07-23-2024 09:39-0500 Body mass index (BMI) [Ratio] 36.33 kg/m2 Fatou Cummins BAND SAW OPERATOR-RN LACTATION CONSULTANT Work Phone: [facility] 07-23-2024 09:39-0500 Body weight 111.58 kg Fatou Cummins BAND SAW OPERATOR-RN LACTATION CONSULTANT Work Phone: [facility] 07-23-2024 09:39-0500 Diastolic blood pressure 74 mm[Hg] Fatou Cummins BAND SAW OPERATOR-RN LACTATION CONSULTANT Work Phone: [facility] 07-23-2024 09:39-0500 Heart rate 64 /min Fatou Cummins BAND SAW OPERATOR-RN LACTATION CONSULTANT Work Phone: [facility] 07-23-2024 09:39-0500 Systolic blood pressure 124 mm[Hg] Fatou Cummins BAND SAW OPERATOR-RN LACTATION CONSULTANT Work Phone: [facility] 01-19-2024 11:30-0400 Blood Pressure Location Nguyễn VELA [facility] 01-19-2024 11:30-0400 Body temperature 98.6 [degF] Nguyễn VELA [facility] 01-19-2024 11:30-0400 Diastolic blood pressure 84 mm[Hg] Nguyễnmaranda VELA [facility] 01-19-2024 11:30-0400 Heart rate 74 /min Nguyễn VELA [facility] 01-19-2024 11:30-0400 Respiratory rate 16 /min Nguyễnmaranda VELA [facility] 01-19-2024 11:30-0400 Systolic blood pressure 133 mm[Hg] Nguyễn VELA [facility] 11-27-2023 10:39-0400 Diastolic blood pressure 80 mm[Hg] Johnnie Deras MD Work Phone: [facility] 11-27-2023 10:39-0400 Systolic blood pressure 130 mm[Hg] Johnnie Deras MD Work Phone: [facility] 11-27-2023 10:11-0400 Body height 175.3 cm Johnnie Deras MD Work Phone: [facility] 11-27-2023 10:11-0400 Body mass index (BMI) [Ratio] 35.12 kg/m2 Johnnie Deras MD Work Phone: [facility] 11-27-2023 10:11-0400 Body weight 107.86 kg Johnnie Deras MD Work Phone: [facility] 11-27-2023 10:11-0400 Heart rate 80 /min Johnnie Deras MD Work Phone: [facility] 07-18-2023 14:14-0500 Blood Pressure Location Shaquille LILLY [facility] [place] 07-18-2023 14:14-0500 Diastolic blood pressure 88 mm[Hg] Shaquille LILLY [facility] [place] 07-18-2023 14:14-0500 Heart rate 92 /min Shaquille ORDONEZL [facility] [place] 07-18-2023 14:14-0500 Respiratory rate 16 /min Shaquille ORDONEZL [facility] [place] 07-18-2023 14:14-0500 Systolic blood pressure 138 mm[Hg] Shaquille NILL [facility] [place] 03-20-2023 14:45-0400 Diastolic blood pressure 92 mm[Hg] Nguyễn VELA [facility] 03-20-2023 14:45-0400 Mean blood pressure 111 mm[Hg] Nguyễn VELA [facility] 03-20-2023 14:45-0400 Systolic blood pressure 150 mm[Hg] Nguyễn VELA [facility] 03-20-2023 14:29-0400 Blood Pressure Location Nguyễnmaranda VELA [facility] 03-20-2023 14:29-0400 Diastolic blood pressure 91 mm[Hg] Nguyễn VELA [facility] 03-20-2023 14:29-0400 Heart rate 86 /min Nguyễn VELA [facility] 03-20-2023 14:29-0400 Systolic blood pressure 158 mm[Hg] Nguyễn VELA [facility] 12-28-2021 10:15-0400 Body height 177.8 cm Roman Navarrete Work Phone: [facility] [facility] DO Work Phone: 12-28-2021 10:15-0400 Body mass index (BMI) [Ratio] 34.15 kg/m2 Roman Jesse Hoy Work Phone: [facility] [facility] DO Work Phone: 12-28-2021 10:15-0400 Body surface area Derived from formula 2.25 m2 Roman M Hoy Work Phone: [facility] [address] DO Work Phone: 12-28-2021 10:15-0400 Body weight 107.96 kg Roman Jesse Hoy Work Phone: [facility] 250 DO Work Phone: 12-28-2021 10:15-0400 Diastolic blood pressure 70 mm[Hg] Roman M Hoy Work Phone: [facility] [address] DO Work Phone: 12-28-2021 10:15-0400 Heart rate 60 /min Roman Jesse Hoy Work Phone: [facility] [facility] DO Work Phone: 12-28-2021 10:15-0400 Systolic blood pressure 138 mm[Hg] Roman Jesse Hoy Work Phone: [facility] [address] DO Work Phone: 12-28-2021 09:51-0400 Body height 177.8 cm Roman Jesse Hoy Work Phone: [facility] [facility] DO Work Phone: 12-28-2021 09:51-0400 Body mass index (BMI) [Ratio] 34.15 kg/m2 Roman M Hoy Work Phone: [facility] 250 DO Work Phone: 12-28-2021 09:51-0400 Body surface area Derived from formula 2.25 m2 Roman Jesse Hoy Work Phone: [facility] 250 DO Work Phone: 12-28-2021 09:51-0400 Body weight 107.96 kg Roman M Hoy Work Phone: [facility] 250 DO Work Phone: 12-28-2021 09:51-0400 Diastolic blood pressure 70 mm[Hg] Roman M Hoy Work Phone: [facility] 250 DO Work Phone: 12-28-2021 09:51-0400 Heart rate 60 /min Roman M Hoy Work Phone: [facility] 250 DO Work Phone: 12-28-2021 09:51-0400 Systolic blood pressure 146 mm[Hg] Roman M Hoy Work Phone: [facility] [address] DO Work Phone: 12-22-2021 08:00-0400 53 1 Roman M Hoy Work Phone: [facility] 250 DO Work Phone: Comment on above: [id number] 12-08-2021 15:22-0400 Body height 177.8 cm Roman M Hoy Work Phone: [facility] 250 DO Work Phone: 12-08-2021 15:22-0400 Body mass index (BMI) [Ratio] 34.15 kg/m2 Roman M Hoy Work Phone: [facility] 250 DO Work Phone: 12-08-2021 15:22-0400 Body surface area Derived from formula 2.25 m2 Roman M Hoy Work Phone: [facility] 250 DO Work Phone: 12-08-2021 15:22-0400 Body weight 107.96 kg Roman M Hoy Work Phone: [facility] 250 DO Work Phone: 12-08-2021 15:22-0400 Diastolic blood pressure 70 mm[Hg] Roman M Hoy Work Phone: [facility] [facility] DO Work Phone: 12-08-2021 15:22-0400 Heart rate 87 /min Roman Jesse Hoy Work Phone: [facility] [address] DO Work Phone: 12-08-2021 15:22-0400 Systolic blood pressure 138 mm[Hg] Roman M Hoy Work Phone: [facility] [address] DO Work Phone: 12-08-2021 15:12-0400 Diastolic blood pressure 70 mm[Hg] Roman M Hoy Work Phone: [facility] 250 DO Work Phone: 12-08-2021 15:12-0400 Systolic blood pressure 140 mm[Hg] Roman Jesse Hoy Work Phone: [facility] 250 DO Work Phone: 12-08-2021 15:08-0400 Body height 177.8 cm Roman Jesse Hoy Work Phone: [facility] [address] DO Work Phone: 12-08-2021 15:08-0400 Body mass index (BMI) [Ratio] 34.15 kg/m2 Roman Jesse Hoy Work Phone: [facility] 250 DO Work Phone: 12-08-2021 15:08-0400 Body surface area Derived from formula 2.25 m2 Roman M Hoy Work Phone: [facility] [address] DO Work Phone: 12-08-2021 15:08-0400 Body weight 107.96 kg Roman Jesse Hoy Work Phone: [facility] 250 DO Work Phone: 12-08-2021 15:08-0400 Diastolic blood pressure 82 mm[Hg] Roman Navarrete Work Phone: [facility] [address] DO Work Phone: 12-08-2021 15:08-0400 Heart rate 87 /min Roman Navarrete Work Phone: [facility] [address] DO Work Phone: 12-08-2021 15:08-0400 Systolic blood pressure 142 mm[Hg] Roman Navarrete Work Phone: [facility] [facility] DO Work Phone: Encounters Encounter Date Encounter Type Care Provider Facility Start: 09-17-2024 End: 09-17-2024 Office outpatient visit 15 minutes Radha Montes MD Work Phone: [facility] Comment on above: EIC (epidermal inclu reg cyst) (Primary Dx); Encounter for removal of sutures; Seborrheic keratosis, inflamed; Folliculitis Start: 09-17-2024 End: 09-17-2024 ambulatory RADHA A PETITTI Not Available Start: 09-10-2024 End: 09-10-2024 ambulatory RADHA A PETITTI Not Available Start: 09-10-2024 End: 09-10-2024 Bamboo flowsdaja Montes MD Work Phone: [facility] Start: 09-10-2024 End: 09-10-2024 Bamboo flowsdaja Montes MD Work Phone: [facility] Start: 09-10-2024 End: 09-10-2024 Office outpatient visit 15 minutes Radha Montes MD Work Phone: [facility] Comment on above: Other seborrheic rey matitis (Primary Dx); Rash and other nonspecific skin eruption; Impetigo Start: 09-10-2024 End: 09-10-2024 ambulatory LUIS DANIEL [facility] Start: 08-20-2024 End: 08-20-2024 Office outpatient visit 15 minutes Fatou Cummins BAND SAW OPERATOR-RN LACTATION CONSULTANT Work Phone: [facility] Comment on above: Benign essential hyp ertension (Primary Dx); Short of breath on exertion; 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; Mixed hyperlipidemia; Cardiomyopathy, unspecified type (Multi); BMI 35.0-35.9,adult; Obstructive sleep apnea syndrome Start: 08-20-2024 End: 08-20-2024 ambulatory [facility]ulatory Start: 08-07-2024 End: 08-07-2024 Subsequent hospital visit by physician Paula Elizabeth Admin Room 1 [facility] Start: 08-07-2024 End: 08-07-2024 ambulatory [facility] Start: 08-06-2024 End: 08-06-2024 Subsequent hospital visit by physician Paula Estrada Stress Room 1 [facility] Comment on above: Short of breath on e xertion; Fatigue, unspecified type Start: 08-06-2024 End: 08-06-2024 ambulatory [facility] Start: 08-01-2024 End: 08-01-2024 Bamboo flowsheet Moira Moy PTA [facility] Start: 08-01-2024 End: 08-01-2024 Bamboo flowsheet Moira Moy PTA [facility] Start: 08-01-2024 End: 08-01-2024 Treatment Moira Moy PTA [facility] Comment on above: Unilateral vestibula r weakness, right (Primary Dx); Cervicalgia; Balance disorder Start: 07-26-2024 End: 07-26-2024 Patient encounter procedure Cj Danielle DO Work Phone: [facility] Comment on above: Right hand pain (Sapphire danya Dx); Primary osteoarthritis of right wrist; Dupuytren's contracture Start: 07-26-2024 End: 07-26-2024 ambulatory CJ DANIELLE Not Available Start: 07-25-2024 End: 07-25-2024 Subsequent hospital visit by physician Paula Estrada Echo/Vasc Room 2 [facility] Comment on above: Short of breath on e xertion; Benign essential hypertension Start: 07-25-2024 End: 07-25-2024 ambulatory [facility] Start: 07-23-2024 End: 07-23-2024 Bamboo flowsheet Radha Montes MD Work Phone: [facility] Start: 07-23-2024 End: 07-23-2024 Bamboo flowsheet Radha Montes MD Work Phone: [facility] Start: 07-23-2024 End: 07-23-2024 ambulatory RADHA MONTES Not Available Start: 07-23-2024 End: 07-23-2024 Office outpatient visit 25 minutes Radha Montes MD Work Phone: [facility] Comment on above: Other rosacea (Prima ry Dx); Angioma of skin; Lentigines; Seborrheic keratosis; Other seborrheic dermatitis; Epidermal inclusion cyst; History of basal cell carcinoma; Actinic keratosis; Seborrheic keratosis, inflamed Start: 07-23-2024 End: 07-23-2024 Office outpatient visit 25 minutes Fatou Aviva Cummins BAND SAW OPERATOR-RN LACTATION CONSULTANT Work Phone: [facility] Comment on above: Short of breath on e xertion (Primary Dx); Benign essential hypertension; Mixed hyperlipidemia; 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; Obstructive sleep apnea syndrome; Fatigue, unspecified type; Dyspnea on exertion; Cardiomyopathy, unspecified type (Multi) Start: 07-23-2024 End: 07-23-2024 ambulatory [facility] Ambulatory Start: 07-17-2024 End: 07-17-2024 Bamboo flowsheet Moira Moy CHANNEL CEMENTER OUTSOLE MACHINE [facility] Start: 07-17-2024 End: 07-17-2024 Bamboo flowsheet Moira Moy CHANNEL CEMENTER OUTSOLE MACHINE [facility] Start: 07-17-2024 End: 07-17-2024 Treatment Moira Guzik CHANNEL CEMENTER OUTSOLE MACHINE [facility] Comment on above: Cervicalgia (Primary Dx); Unilateral vestibular weakness, right; Balance disorder Start: 07-11-2024 End: 07-11-2024 Bamboo flowsheet Tawanda Fararr PA Work Phone: [facility] Start: 07-11-2024 End: 07-11-2024 Bamboo flowsheet Tawanda Farrar PA Work Phone: [facility] Start: 07-11-2024 End: 07-11-2024 ambulatory TAWANDA FARRAR Not Available Start: 07-11-2024 End: 07-11-2024 Office outpatient visit 15 minutes Tawanda Newby PA Work Phone: [facility] Comment on above: Rash and other nonsp ecific skin eruption (Primary Dx) Start: 07-09-2024 End: 07-09-2024 Bamboo flowsheet Moira Moy CHANNEL CEMENTER OUTSOLE MACHINE [facility] Start: 07-09-2024 End: 07-09-2024 Bamboo flowsheet Moira Moy CHANNEL CEMENTER OUTSOLE MACHINE [facility] Start: 07-09-2024 End: 07-09-2024 Treatment Moira Moy CHANNEL CEMENTER OUTSOLE MACHINE [facility] Comment on above: Unilateral vestibula r weakness, right (Primary Dx); Cervicalgia; Balance disorder Start: 06-26-2024 End: 06-26-2024 Treatment Katey Shaikh CHANNEL CEMENTER OUTSOLE MACHINE Work Phone: [facility] Comment on above: Unilateral vestibula r weakness, right (Primary Dx); Cervicalgia; Balance disorder Start: 06-25-2024 End: 06-25-2024 ambulatory PHILIPPE ROUSE Not Available Start: 06-25-2024 End: 06-25-2024 Bamboo flowsheet Philippe Rouse DO Work Phone: [facility] Start: 06-25-2024 End: 06-25-2024 Bamboo flowsheet Philippe Rouse DO Work Phone: [facility] Start: 06-18-2024 End: 06-18-2024 Bamboo flowsheet Katey Depoy CHANNEL CEMENTER OUTSOLE MACHINE Work Phone: [facility] Start: 06-18-2024 End: 06-18-2024 Bamboo flowsheet Katey Depoy CHANNEL CEMENTER OUTSOLE MACHINE Work Phone: [facility] Start: 06-18-2024 End: 06-18-2024 Treatment Katey Depoy CHANNEL CEMENTER OUTSOLE MACHINE Work Phone: [facility] Comment on above: Unilateral vestibula r weakness, right (Primary Dx); Cervicalgia; Balance disorder Start: 06-10-2024 End: 06-10-2024 Treatment Shaquille Valencia PT Work Phone: [facility] Comment on above: Cervicalgia (Primary Dx); Balance disorder; Unilateral vestibular weakness, right Start: 05-22-2024 End: 05-22-2024 Bamboo flowsheet Katey Depoy CHANNEL CEMENTER OUTSOLE MACHINE Work Phone: [facility] Start: 05-22-2024 End: 05-22-2024 Bamboo flowsheet Katey Depoy CHANNEL CEMENTER OUTSOLE MACHINE Work Phone: [facility] Start: 05-22-2024 End: 05-22-2024 Treatment Katey Depoy CHANNEL CEMENTER OUTSOLE MACHINE Work Phone: [facility] PT Comment on above: Balance disorder (Pr imary Dx); Unilateral vestibular weakness, right; Cervicalgia Start: 05-07-2024 End: 05-07-2024 Bamboo flowsdaja Valencia PT Work Phone: [facility] Start: 05-07-2024 End: 05-07-2024 Bamboo flowsheet Shaquille Valencia PT Work Phone: [facility] Start: 05-07-2024 End: 05-07-2024 Treatment Shaquille Valencia PT Work Phone: [facility] PT Comment on above: Unilateral vestibula r weakness, right (Primary Dx); Cervicalgia; Balance disorder Start: 04-23-2024 End: 04-23-2024 Treatment Shaquille Valencia PT Work Phone: [facility] PT Comment on above: Cervicalgia (Primary Dx); Balance disorder; Unilateral vestibular weakness, right Start: 04-17-2024 End: 04-17-2024 ambulatory [facility] Start: 04-04-2024 ambulatory [facility] Start: 04-02-2024 End: 04-02-2024 Treatment Shaquille Valencia PT Work Phone: [facility] PT Comment on above: Unilateral vestibula r weakness, right (Primary Dx); Cervicalgia; Balance disorder Start: 03-18-2024 End: 03-18-2024 Bamboo flowsheet Shaquille Valencia PT Work Phone: [facility] PT Start: 03-18-2024 End: 03-18-2024 Bamboo flowsheet Shaquille Valencia PT Work Phone: [facility] PT Start: 03-18-2024 End: 03-18-2024 Treatment Shaquille Valencia PT Work Phone: [facility] PT Comment on above: Unilateral vestibula r weakness, right (Primary Dx); Cervicalgia; Balance disorder Start: 03-08-2024 End: 03-08-2024 Bamboo flowsheet Shaquille Valencia PT Work Phone: [facility] PT Start: 03-08-2024 End: 03-08-2024 Bamboo flowsheet Shaquille Valencia PT Work Phone: [facility] PT Start: 03-08-2024 End: 03-08-2024 Evaluation Shaquille Valencia PT Work Phone: [facility] PT Comment on above: Balance disorder (Pr imary Dx); Unilateral vestibular weakness, right; Cervicalgia Start: 02-15-2024 End: 02-15-2024 [facility] Start: 02-06-2024 End: 02-06-2024 ambulatory [facility] Ambulatory Start: 02-01-2024 End: 02-01-2024 ambulatory RADHA MONTES Not Available Start: 01-23-2024 End: 01-23-2024 ambulatory MEGAN H TIMMIS Not Available Start: 01-19-2024 End: 01-19-2024 Patient encounter procedure Nguyễn Peter MIRIAN [facility] [place] Start: 12-27-2023 End: 12-27-2023 ambulatory MEGAN Khan TIMMIS Not Available Start: 12-25-2023 End: 12-25-2023 ambulatory YUE GARCIA Not Available Start: 11-27-2023 End: 11-27-2023 Office outpatient visit 15 minutes Johnnie Dreas MD Work Phone: [facility] Comment on above: Coronary artery dise ase involving absentee-shawnee coronary artery of absentee-shawnee heart without angina pectoris (Primary Dx); Benign essential hypertension; Mixed hyperlipidemia; Former cigarette smoker Start: 11-27-2023 End: 11-27-2023 ambulatory JOHNNIE DERAS [facility] Ambulatory Start: 10-11-2023 End: 10-11-2023 ambulatory [facility] Start: 10-02-2023 ambulatory [facility] Start: 09-13-2023 End: 09-14-2023 ambulatory Shaquille LILLY Facility: [facility] Start: 09-13-2023 End: 09-13-2023 Patient encounter procedure Shaquille LILLY General Surgery Nill/Said [facility] Start: 09-01-2023 End: 09-02-2023 ambulatory Shaquille LILLY Facility: [facility] Start: 09-01-2023 End: 09-01-2023 Patient encounter procedure Shaquille LILLY General Surgery Nill/Said [place] Start: 08-22-2023 End: 08-23-2023 ambulatory Roman Navarrete Facility:[facility] Start: 08-22-2023 End: 08-22-2023 Patient encounter procedure Shaquille LILLY General Surgery Nill/Said [place] Start: 08-22-2023 End: 08-22-2023 ambulatory MD Roman Navarrete Work Phone: [facility] Work Phone: Start: 08-22-2023 End: 08-22-2023 Departed Referred MD Roman Navarrete Work Phone: [facility] [place] [facility] Start: 07-18-2023 End: 07-19-2023 ambulatory Shaquille Peter NILVikas [facility] Start: 07-18-2023 End: 07-18-2023 Patient encounter procedure Shaquille Peter NILL General Surgery Nill/Said [place] Start: 04-05-[address] [facility] Start: 04-05-2023 End: 04-05-2023 ambulatory [facility] Start: 03-20-2023 End: 03-21-2023 ambulatory Nguyễn VELA Facility:[facility] Start: 03-20-2023 End: 03-20-2023 Patient encounter procedure Nguyễn VELA [facility] Start: 10-28-2022 DAYNA ORR, Provider : ALIYA YOUNG JACK PRIZER 1,[id number], Status: Pen, Time: 10:00 AM Roman Navarrete Work Phone: [facility] 250 DO Work Phone: Start: 10-28-2022 Patient encounter procedure Roman Navarrete Work Phone: [facility] 250 DO Work Phone: Start: 10-28-[address] Johnnie Deras II Facility: Start: 10-27-2022 Telephone encounter Roman Navarrete Work Phone: [facility] 250 DO Work Phone: Start: 10-25-2022 End: 10-26-2022 ambulatory KWADWO CRUMP Facility:[facility] Start: 06-20-2022 End: 06-21-[address] ROMAN NAVARRETE . Facility:[facility] Start: 03-11-2022 End: 03-12-[address] ROMAN NAVARRETE . Facility:[facility] Start: 01-25-2022 Rx Renewal Roman Navarrete Work Phone: [facility] 600 DO Work Phone: Start: 12-30-2021 Chart Update Roman Navarrete Work Phone: [facility] 250 DO Work Phone: Start: 12-28-2021 Office outpatient vi sit 25 minutes Roman Navarrete Work Phone: [facility] 250 DO Work Phone: Start: 12-28-2021 Patient encounter procedure Roman Navarrete Work Phone: [facility] 250 DO Work Phone: Start: 12-28-[address] Roman Navarrete Facility: Start: 12-08-2021 Office outpatient vi sit 25 minutes Roman Navarrete Work Phone: [facility] 250 DO Work Phone: Start: 12-08-[address] Roman Navarrete Facility: Start: 11-25-2021 End: 11-26-[address] ROMAN NAVARRETE . Facility:[facility] Start: 11-24-2021 End: 11-25-[address] ROMAN NAVARRETE . Facility: Procedures Date Procedure Procedure Detail Performing Clinician Start: 09-17-2024 CRYOTHERAPY SKIN LESION Radha Montes MD Work Phone: Start: 09-10-2024 SKIN / NAIL BIOPSY Radha Montes MD Work Phone: Start: 08-07-2024 Cv strs tst xers&/or rx cont ecg trcg only Fatou Cummins BAND SAW OPERATOR-RN LACTATION CONSULTANT Work Phone: Start: 07-26-2024 Radex hand minimum 3 views Cj Cheatham Elza DO Work Phone: Start: 07-25-2024 TTE w or wo fol wcon,Doppler Fatou Rubio th BAND SAW OPERATOR-RN LACTATION CONSULTANT Work Phone: Start: 07-23-2024 End: 07-23-2024 CRYOTHERAPY SKIN LESION Radha Montes MD Work Phone: Start: 06-25-2024 Computerized ophthalmic imaging retina Philippe Rouse DO Work Phone: Start: 06-25-2024 End: 06-25-2024 Ophth medical xm&eval comprhnsv estab pt 1/> Type [...] LILLY Start: 04-05-2023 Procedure on back Nguyễn VELA Start: 06-20-[address] ROMAN NAVARRETE . Comment on above: Performed By: #### IDRIS #### [facility] [address] [place] [address] Dr. Layla Barrera Start: 04-09-2014 right knee arthroscopy Nguyễn VELA Start: 02-25-2003 Cystoscopic removal of ureteric stent Nguyễn VELA Arthroscopic knee operation Nguyễn VELA Comment on above: left Arthroscopy of knee Roman M Homichelle Work Phone: Comment on above: (Therapeutic) Bilateral; Cardiac catheterization Ruben las M Hoy Work Phone: Colonoscopy Nguyễn VELA Comment on above: many Cystoscopy Nguyễn VELA Elbow joint operations Rubenl as M Landon Work Phone: Comment on above: Left; Esophagogastroduodenoscopy P apple VELA Excision of basal cell carcinoma Roman M Landon Work Phone: Excision of mass of breast Jesse LILLY Extracorporeal shock wave lithotripsy of calculus of kidney Nguyễn VELA heart catheterization Krish VELA Hemorrhoidectomy Nguyễn GOLDEN History of repair of musculotendinous cuff of shoulder Nguyễn VELA Comment on above: left Operation on nose Roman M Landon Work Phone: Prostate Surgery Nguyễn GOLDEN Renal lithotripsy Roman M Landon Work Phone: Repair of elbow Nguyễnmaranda JOSEPHE RS Comment on above: left Repair of musculoten dinous cuff of shoulder Roman M Hoy Work Phone: Comment on above: Left; Shoulder Surgery Nguyễn OPAL ERS Total colonoscopy Roman M Hoy Work Phone: Comment on above: [id number]; Plan of Treatment Date Care Activity Detail Author Start: 07-23-2025 End: 07-23-2025 Patient encounter procedure 07/23/2025 1:00 PM EST Office Visit [facility] [address] [place] [address] Radha Montes MD [address] [place], [place] [id number] [facility] Start: 06-25-2025 End: 06-25-2025 Patient encounter procedure 06/25/2025 11:00 AM EST Office Visit [facility] [address] [place] [address] Philippe Rouse, [address] [place] [address] [facility] Start: 11-29-2024 End: 11-29-2024 Patient encounter procedure 11/29/2024 10:20 AM EDT Office Visit [facility] [address] [facility] [address] [place] [address] Abdoul Timmons MD [address] [facility] [address] [place] [address] [facility] Start: 10-23-2024 End: 10-23-2024 Patient encounter procedure 10/23/2024 11:00 AM EDT Office Visit [facility] [address] [place] [address] Radha Montes MD [address] [place] [address] [facility] Start: 09-17-2024 End: 09-17-2024 Patient encounter procedure 09/17/2024 11:15 AM EDT Office Visit [facility] [address] [place] [address] Radha Montes MD [address] [place] [address] [facility] Start: 09-10-2024 End: 09-10-2024 Patient encounter procedure 09/10/2024 1:45 PM EST Office Visit [facility] [address] [place] [address] Radha Montes MD [address] [place], [place] [id number] [facility] Start: 08-20-2024 End: 08-20-2024 Patient encounter procedure 08/20/2024 3:30 PM EST Office Visit [facility] [address] [place] [address] Fatou Cummins, BAND SAW OPERATOR-RN LACTATION CONSULTANT [address] [place] [address] [facility] Start: 08-07-2024 End: 08-07-2024 Patient encounter procedure [facility] Start: 08-07-2024 End: 08-07-2024 Patient encounter procedure 08/07/2024 11:30 AM EST Appointment [facility] [address] [place] [id number] [facility] [facility] Start: 08-07-2024 Subsequent hospital visit by physician 08/07/2024 11:30 AM EST Hospital Encounter [facility] [address] [facility] [address] [place] [phone] [facility] Start: 08-06-2024 End: 08-06-2024 Patient encounter procedure [facility] Start: 08-01-2024 End: 08-01-2024 ambulatory [facility] Comment on above: Arrived Start: 07-26-2024 End: 07-26-2024 Patient encounter procedure 07/26/2024 9:00 AM EST Office Visit [facility] [address] [place] [address] Cj Danielle, [address] [place] [address] [facility] Start: 07-25-2024 End: 07-25-2024 Professional / ancillary services management 07/25/2024 3:00 PM EST Ancillary Procedure [facility] [address] [place] [address] [facility] Start: 07-25-2024 End: 07-25-2024 Patient encounter procedure 07/25/2024 2:30 PM EST Appointment [facility] [address] [place] [address] [facility] Start: 07-25-2024 End: 07-25-2024 ambulatory 07/25/2024 11:00 AM EST Treatment [facility] [address] [place] [address] Moira Moy PTA [facility] Start: 07-23-2024 End: 07-23-2025 Holter monitor study Holter Or Event Combine Driver Cardiac Services Routine Short of breath on exertion Dyspnea on exertion Expected: 07/23/2024 (Approximate), Expires: 07/23/2025 [facility] Work Phone: Comment on above: Expected: 07/23/2024 (Approximate), Expi res: 07/23/2025 Start: 07-23-2024 End: 07-23-2026 NM Heart Perfusion W stress and W radionuclide IV Nuclear Stress Test Cardiac Nuclear Medicine Routine Short of breath on exertion Fatigue, unspecified type Expected: 07/23/2024 (Approximate), Expires: 07/23/2026 [facility] Work Phone: Comment on above: Expected: 07/23/2024 (Approximate), Expi res: 07/23/2026 Start: 07-23-2024 End: 07-23-2026 Heart Transthoracic Transthoracic Echo Complete Echocardiography Routine Short of breath on exertion Benign essential hypertension Expected: 07/23/2024 (Approximate), Expires: 07/23/2026 [facility] Service Area Work Phone: Comment on above: Expected: 07/23/2024 (Approximate), Expi res: 07/23/2026 Start: 07-23-2024 End: 07-23-2024 Patient encounter procedure 07/23/2024 1:30 PM EST Office Visit [facility] [address] [place] [phone] Radha Montes MD [address] [place], [place] [id number] [facility] Start: 07-22-2024 End: 07-22-2024 Patient encounter procedure 07/22/2024 11:30 AM EST Office Visit [facility] [address] [place] [phone] Radha Montes MD [address] [place], [place] [id number] [facility] Start: 07-17-2024 End: 07-17-2024 ambulatory [facility] Comment on above: Arrived Start: 07-09-2024 End: 07-09-2024 ambulatory 07/09/2024 10:30 AM EST Treatment [facility] [address] [place] [phone] Moira Moy, CHANNEL CEMENTER OUTSOLE MACHINE [facility] Start: 06-26-2024 End: 06-26-2024 ambulatory 06/26/2024 10:30 AM EST Treatment [facility] [address] [place] [phone] Katey Shaikh, CHANNEL CEMENTER OUTSOLE MACHINE [address] [place] [address] [facility] Start: 06-25-2024 End: 06-25-2024 Patient encounter procedure [facility] Comment on above: Arrived Start: 06-25-2024 End: 06-25-2024 ambulatory 06/25/2024 10:30 AM EST Treatment [facility] [address] [place] [address] Moira Moy, CHANNEL CEMENTER OUTSOLE MACHINE [facility] Start: 06-11-2024 End: 06-11-2024 ambulatory 06/11/2024 10:00 AM EST Treatment [facility] [address] [place] [address] Katey Shaikh, CHANNEL CEMENTER OUTSOLE MACHINE [address] [place] [address] [facility] Start: 05-15-2024 End: 05-15-2024 ambulatory 05/15/2024 10:30 AM EST Treatment [facility] [address] [place] [address] Katey Shaikh, CHANNEL CEMENTER OUTSOLE MACHINE [address] [place] [address] [facility] Start: 05-07-2024 End: 05-07-2024 ambulatory [facility] Comment on above: Arrived Start: 04-23-2024 End: 04-23-2024 ambulatory 04/23/2024 9:40 AM EDT Treatment [facility] [address] [place] [address] Shaquille Valencia, PT [address] [place] [address] [facility] Start: 04-02-2024 End: 04-02-2024 ambulatory 04/02/2024 9:30 AM EDT Treatment [facility] [address] [place] [address] Shaquille Valencia, PT [address] [place] [address] [facility] Start: 03-18-2024 End: 03-18-2024 ambulatory [facility] Comment on above: Cervicalgia (Primary Dx); Balance disorder; Unilateral vestibular weakness, right Start: 03-10-2024 Influenza vaccination [facility] Start: 03-08-2024 End: 03-08-2024 Evaluation 03/08/2024 8:20 AM EDT Evaluation [facility] [address] [place] [phone] Shaquille Valencia, PT [address] [place] [address] Balance disorder (Primary Dx) [facility] Comment on above: Balance disorder (Primary Dx) Start: 01-19-2024 ambulatory Ambulatory Facility: [facility] Start: 11-27-2023 End: 11-26-2024 Lipid 1996 panel - Serum or Plasma Lipid Panel Lab Routine Mixed hyperlipidemia Expected: 11/27/2023 (Approximate), Expires: 11/26/2024 [facility] Service Area Work Phone: Comment on above: Expected: 11/27/2023 (Approximate), Expi res: 11/26/2024 Start: 07-27-2023 Medicare Annual Wellness Visit Medicare Annual Wellness Visit (AWV) [facility] Start: 03-10-2023 COVID-19 Vaccine ( season) COVID-19 Vaccine ( season) [facility] Start: 12-06-2022 FUV, Provider: Johnnie Deras, Status: Pen, Time: 10:00 AM FUV, Provider: Johnnie Deras, Status: Pen, Time: 10:00 AM [facility] [address] DO Work Phone: Start: 11-24-2022 FUV, Provider: Johnnie Deras, Status: Pen, Time: 2:00 PM FUV, Provider: Johnnie Deras, Status: Pen, Time: 2:00 PM [facility] [address] DO Work Phone: Start: 12-28-2021 FUV, Provider: Johnnie Deras, Status: Pen, Time: 9:45 AM FUV, Provider: Johnnie Deras, Status: Pen, Time: 9:45 AM [facility] [address] DO Work Phone: Start: 12-22-2021 REST ONLY, Provider: [place] CASEI NUCLEAR 01,[id number], Status: Pen, Time: 8:00 AM REST ONLY, Provider: [place] CASEI NUCLEAR 01,[id number], Status: Pen, Time: 8:00 AM [facility] [address] DO Work Phone: Start: 12-21-2021 STRESSNUC2, Provider: [place] CASEI NUCLEAR 01,[id number], Status: Pen, Time: 8:00 AM STRESSNUC2, Provider: [place] CASEI NUCLEAR 01,[id number], Status: Pen, Time: 8:00 AM [facility] Work [facility]: Start: 2001 Hepatitis B Vaccines (1 of 3 - Risk 3-dose series) Hepatitis B Vaccines (1 of 3 - Risk 3-dose series) [facility] Start: 2001 RSV patients and/or patients aged 60+ years (1 - 1-dose 60+ series) RSV patients and/or patients aged 60+ years (1 - 1-dose 60+ series) [facility] Start: 11-03-1991 Zoster Vaccines (1 of 2) Zoster Vaccines (1 of 2) [facility] Start: 11-03-1963 DTaP/Tdap/Td Vaccines (1 - Tdap) DTaP/Tdap/Td Vaccines (1 - Tdap) [facility] Start: 1960 Hepatitis A Vaccines (1 of 2 - Risk 2-dose series) Hepatitis A Vaccines (1 of 2 - Risk 2-dose series) [facility] Start: 1941 Lipid panel Lipid Panel [facility] Start: 1941 Medicare Annual Wellness Visit Medicare Annual Wellness Visit (AWV) [facility] Start: 1941 Screening for osteoporosis Bone Density Scan [facility] Aerobic culture Aerobic culture Microbiology Timed Impetigo Release Upon Ordering for 1 Occurrences starting 09/10/2024 [employer] Work Phone: Comment on above: Release Upon Ordering for 1 Occurrences starting 09/10/2024 Dermatopathology exam Dermatopat hology exam Pathology and Cytology Routine Rash and other nonspecific skin eruption Release Upon Ordering for 1 Occurrences starting 09/10/2024 [facility] [employer] Comment on above: Release Upon Ordering for 1 Occurrences starting 09/10/2024 End: 08-06-2024 NM Heart Perfusion W stress and W radionuclide IV [facility] Service Area Work Phone: Comment on above: Once for 1 Occurrences starting 08/06/19 until 08/06/2024 XR Hand - right 3 Views XR hand 3+ views right Imaging Routine Right hand pain 07/26/2024 8:40 AM EST [facility] [employer] Work Phone: Immunizations Immunization Date Immunization Notes Care Provider Fa brian 05-20-2024 Pfizer COVID-19 vaccine, 12 years and older, (30mcg/0.3mL) (Comirnaty) Fatou Cummins BAND SAW OPERATOR-RN LACTATION CONSULTANT Work Phone: [facility] Work Phone: 05-20-2024 RSV, 60 Years And Ol rey (AREXVY) Fatou Cummins BAND SAW OPERATOR-RN LACTATION CONSULTANT Work Phone: [facility] Work Phone: 04-18-2024 influenza, seasonal, injectable Fatou Cummins BAND SAW OPERATOR-RN LACTATION CONSULTANT Work Phone: [facility] Work Phone: 04-18-2024 influenza virus vaccine, unspecified formulation Radha Montes MD Work Phone: [facility] [employer] 07-26-2022 Fluad Quadrivalent 0 .5 ML Intramuscular Prefilled Syringe Roman Navarrete Work Phone: [facility] [address] DO Work Phone: 07-26-2022 influenza virus vaccine, unspecified formulation Nguyễn VELA [facility] 11-17-2021 Comirnaty 30 MCG/0.3 ML Intramuscular Suspension Roman Navarrete Work Phone: [facility] [address] DO Work Phone: 11-17-2021 SARS-CoV-2 mRNA (djpaarslyts-mban-wjcdx se) vaccine Nguyễn [employer] [facility] 05-20-2021 Pfizer-BioNTech COVID-19 Vacc 30 MCG/0.3ML Intramuscular Suspension Roman Molina Yieldexmichelle Work Phone: [facility] Comment on above: Result Comment: 2022: [id number] 05-12-2021 influenza, seasonal, injectable Johnnie Deras MD Work Phone: [facility] Work Phone: 11-17-2020 SARS-CoV-2 (COVID-19 ) mRNA BNT-162b2 vax Nguyễn [employer] [facility] [place] 10-29-2020 Pfizer-BioNTech COVID-19 Vacc 30 MCG/0.3ML Intramuscular Suspension Roman Molina [employer] Work Phone: [facility] Comment on above: Result Comment: 2022: [id number] 10-28-2020 Moderna COVID-19 vaccine, bivalent, blue cap/cunningham label *Check age/dose* Johnnie Deras MD Work Phone: [facility] Work Phone: 10-27-2020 SARS-CoV-2 (COVID-19 ) mRNA BNT-162b2 vax Nguyễn [employer] [facility] [place] 10-06-2020 Pfizer-BioNTech COVID-19 Vacc 30 MCG/0.3ML Intramuscular Suspension Roman Molina Yieldexmichelle Work Phone: [facility] Comment on above: Result Comment: 2022: [id number] 09-29-2020 Moderna COVID-19 vaccine, bivalent, blue cap/cunningham label *Check age/dose* Johnnie Deras MD Work Phone: [facility] Work Phone: 04-23-2020 influenza virus vaccine, unspecified formulation Nguyễn VELA [facility] 04-23-2020 influenza, high dose seasonal, preservative-free Roman Molina Hoy Work Phone: [facility] 250 DO Work Phone: 04-09-2018 influenza virus vaccine, unspecified formulation Roman Molina Hoy Work Phone: [facility] 250 DO Work Phone: 07-10-2017 pneumococcal polysaccharide vaccine, 23 valent Roman Molina Hoy Work Phone: [facility] 250 DO Work Phone: 04-09-2016 influenza virus vaccine, unspecified formulation Roman Molina Hoy Work Phone: [facility] 250 DO Work Phone: 04-09-2016 pneumococcal conjuga te vaccine, 13 valent Roman Molina Hoy Work Phone: [facility] 250 DO Work Phone: 04-22-2015 influenza virus vaccine, unspecified formulation Nguyễn VELA [facility] 04-22-2015 influenza, injectabl e, quadrivalent, contains preservative Roman Molina Hoy Work Phone: [facility] 250 DO Work Phone: 04-09-2015 influenza virus vaccine, unspecified formulation Roman Jesse Hoy Work Phone: [facility] 250 DO Work Phone: 05-22-2014 influenza virus vaccine, unspecified formulation Nguyễn VELA [facility] 05-22-2014 influenza, injectabl e, quadrivalent, contains preservative Roman Navarrete Work Phone: [facility] [employer] [address] DO Work Phone: 07-10-2012 influenza virus vaccine, unspecified formulation Roman [facility]rete [facility] Work Phone: 07-10-2011 pneumococcal polysaccharide vaccine, 23 valent Roman Navarrete Work Phone: [facility] DO Work Phone: influenza virus vaccine, unspecified formulation Roman Navarrete Work Phone: [facility] DO Work Phone: Comment on above: 2011 NEGATED: Highlighted row has not occurred!07-18-2023 influenza virus vaccine, unspecified formulation Shaquille LILLY [facility] [place] Payers Date Payer Category Payer Self-pay [id number] 2018 Medicare supplementa l policy (as second payer) [employer] MEDICARE SUPPLEMENT [id number] 2018 Private Health Insurance [id number] .[id number] 2006 Medicare [id number] .[id number] 1959 Medicare [id number] 1959 Private Health Insurance [id number] 1941 Unknown [id number] 2.16.840.1.945778.3.579 .2.356 1941 Unknown [id number] 2.16.840.1.578372.3.579 .2.356 1941 Unknown [id number] 2.16.840.1.597923.3.579 .2.356 1941 Unknown [id number] 2.16.840.1.220417.3.579 .2.593 1941 Unknown [id number] 2.16.840.1.674533.3.579 .2.593 1941 Unknown [id number] 2.16.840.1.182143.3.579 .2.593 1941 Unknown [id number] 2.16.840.1.705637.3.579 .2.593 1941 Unknown [id number] 2.16.840.1.165788.3.579 .2.593 1941 Unknown [id number] 2.16.840.1.001456.3.579 .2.754 1941 Unknown [id number] 2.16.840.1.527737.3.579 .2.754 1941 Unknown [id number] 2.16.840.1.072037.3.579 .2.727 1941 Unknown [id number] 2.16.840.1.035096.3.579 .2.727 1941 Unknown [id number] 2.16.840.1.754149.3.579 .2.727 1941 Unknown [id number] 2.16.840.1.734923.3.579 .2.727 1941 Unknown [id number] 2.16.840.1.961402.3.579 .2.727 1941 Unknown [id number] 2.16.840.1.794855.3.579 .2.727 1941 Unknown [id number] 2.16.840.1.167242.3.579 .2.1246 1941 Unknown [id number] 2.16.840.1.786608.3.579 .2.1245 1941 Unknown [id number] 2.16.840.1.985587.3.579 .2.124 1941 Unknown [id number] 2.16.840.1.261056.3.579 .2.1245 1941 Unknown [id number] 2.16.840.1.693585.3.579 .2.1245 1941 Unknown [id number] 2.16.840.1.718366.3.579 .2.124 1941 Unknown [id number] 2.16.840.1.556673.3.579 .2.1258 1941 Unknown [id number] 2.16.840.1.190880.3.579 .2.1258 1941 Unknown [id number] 2.16.840.1.949099.3.579 .2.1258 1941 Unknown [id number] 2.16.840.1.045907.3.579 .2.125 1941 Unknown [id number] 2.16.840.1.939274.3.579 .2.125 1941 Unknown [id number] 2.16.840.1.612593.3.579 .2.125 1941 Unknown [id number] 2.16.840.1.322689.3.579 .2.125 1941 Unknown [id number] 2.16.840.1.002435.3.579 .2.125 1941 Unknown [id number] 2.16.840.1.864639.3.579 .2.1258 1941 Unknown [id number] 2.16.840.1.389067.3.579 .2.1258 1941 Unknown [id number] 2.16.840.1.340079.3.579 .2.1258 1941 Unknown [id number] 2.16.840.1.142904.3.579 .2.1258 1941 Unknown [id number] 2.16.840.1.102858.3.579 .2.1258 1941 Unknown [id number] 2.16.840.1.253402.3.579 .2.1258 1941 Unknown [id number] 2.16.840.1.996860.3.579 .2.1258 1941 Unknown [id number] 2.16.840.1.095072.3.579 .2.1258 1941 Unknown [id number] 2.16.840.1.540858.3.579 .2.1258 1941 Unknown [id number] 2.16.840.1.554885.3.579 .2.1258 1941 Unknown [id number] 2.16.840.1.019785.3.579 .2.1258 1941 Unknown [id number] 2.16.840.1.214914.3.579 .2.1258 1941 Unknown [id number] 2.16.840.1.736416.3.579 .2.1258 1941 Unknown [id number] 2.16.840.1.113786.3.579 .2.1258 1941 Unknown [id number] 2.16.840.1.827435.3.579 .2.1258 1941 Unknown [id number] 2.16.840.1.713247.3.579 .2.1244 1941 Unknown [id number] 2.16.840.1.712962.3.579 .2.1244 1941 Unknown [id number] 2.16.840.1.520993.3.579 .2.1244 1941 Unknown [id number] 2.16.840.1.805992.3.579 .2.1244 1941 Unknown [id number] 2.16.840.1.139758.3.579 .2.1244 Medicare [id number] Unknown Unknown [id number] 2.16.840.1.759108.3.579 .2.531 Social History Date Type Detail Facility Start: 11-27-2023 End: 09-17-2024 Caffeine use Caffeine use [facility] 250 DO Work Phone: Comment on above: Coffee: 1 cup dailyS ac- Occasionally; Quit: 1991; Start: 03-20-2023 End: 07-27-2023 Tobacco smoking status Ex-smoker (finding) [facility] Tobacco smoking status Never [facility] Start: 11-27-2023 End: 09-17-2024 Sex Assigned At Male [facility] Start: 1940 Sex Assigned At Male [facility] History of tobacco use Current smoker [facility] Work Phone: History of tobacco use Cigarette Smoker [facility] Work Phone: Start: 07-27-2023 End: 11-27-2023 Tobacco use and exposure Smokeless tobacco non-user [facility] Work Phone: Start: 11-27-2023 End: 09-18-2024 Alcoholic beverage intake Lifetime non-drinker (finding) [facility] Work Phone: Start: 1940 Sex assigned at Not on file [facility] Work Phone: Start: 11-17-2023 End: 08-20-2024 Exposure to SARS-CoV-2 (event) Not sure [facility] Start: 07-27-2023 Alcohol Comment caffeine 1-2 cups/day [facility] NEGATED: Highlighted rowStart: NINF History of tobacco use Passive smoker [facility] Functional Status Date Assessment Result Facility 01-19-2024 Functional Status N/A [facility] 07-18-2023 Functional Status N/A [facility] 03-20-2023 Functional Status N/A [facility] Clinical Notes 03-20-2023 to 09-17-2024 Radha Montes MD - 09/17/2024 11:15 AM Jaki Montes MD - 09/10/2024 1:45 PM ESTAssessment & Plan Note - Fatou Cummins APRN-RN LACTATION CONSULTANT - 08/20/2024 3:46 PM ESTPatient Instructions Note Date & Type Note Facility 09-17-2024 History of Present illness Narrative Images from the original note were not included. Follow up/ Suture removal Diagnosis: Folliculitis Location: face/ scalp Procedure performed: Punch biopsy (left forehead), Bacterial culture negative Status: little change Date of procedure: 09/10/2024 Current treatment: Ciclopirox 0.77 % cream Lesions: Location: back Duration: months Associated symptoms: raised, rough spots Treatments: none All pertinent medical history, medications, and allergies were reviewed. General Exam: alert, oriented to person, place, and time, normal affect, well appearing Unaccompanied A focused exam completed based on patient reported problems, see below: 1. Encounter for removal of sutures Mid Forehead Sutures are intact, Skin edges are well-approximated, Mild erythema along incision line, No drainage or edema noted Suture Removal: Procedure: Sutures removed without difficulty. Post-Procedure instructions: Instructed to discontinue wound care., Pathology results discussed. 2. Seborrheic keratosis, inflamed (2) Left Upper Back, Right Upper Back [place] and brown stuck on verrucous scaly papule with surrounding erythema The patient was informed that symptomatic seborrheic keratoses are benign growths that become inflamed, itchy, tender, traumatized, caught on clothing, or bleed. Symptomatic lesions can be treated with cryotherapy or curretage. Thicker lesions treated with cryotherapy may require more than one treatment. The patient was instructed to notify the office if abnormal redness or tenderness develops at the treatment site. Cryotherapy today, see procedure note. Diagnosis: Inflamed seborrheic keratosis Indication: Inflamed Consent: Verbal consent was obtained and risks were discussed, including, but not limited to risks of scarring, darker or felt checker pigmentary changes, recurrence, incomplete removal and infection. Method: Liquid nitrogen was used to treat the lesion(s) with two 5-10 second freeze-thaw cycles Number of lesions treated: 1 Post-procedure instructions: Instructions were given orally and in writing. The office will be contacted if the lesion fails to resolve despite treatment, or if a side effect develops such as abnormal crusting, scabbing, redness or tenderness Cryotherapy, skin lesion - Left Upper Back, Right Upper Back 3. EIC (epidermal inclusion cyst) Right Upper Back 1.5 x 1.5 cm cm erythematous, subcutaneous nodule. Patient was counseled regarding cysts. Although benign, cysts often slowly enlarge and can occasionally become inflamed. Discussed the only way to definitively diagnose the lesion would be to have it removed and tested. Discussed treatment options including observation vs. excision. Patient elected for excision. Reviewed procedure and what to expect. Patient scheduled for 10/23/2024 @ 11:00 am. 4. Folliculitis Head - Anterior (Face), Scalp Follicularly-based erythematous papules and pustules. Discussed that folliculitis is a common condition in which the hair follicles become infected and can be symptomatic. Restart clindamycin gel once daily, start Benzoyl peroxide 5% wash once daily. Notify office if failing to improve despite treatment. Related Medications benzoyl peroxide 5 % external wash Apply to the face and scalp then rinse daily, 30 day supply Next Visit: 10/23/2024 EIC excision documented in this encounter [facility] 09-10-2024 History of Present illness Narrative Images from the original note were not included. Follow up Diagnosis: Rosacea Location: face Last visit: 7 weeks ago Symptoms: red, bumps, sore Status: worse Treatments tried and failed: antibiotic ointment, Aquaphor, Mupirocin 2% ointment, Clindamycin 300 mg 3x daily x 10 days. Hydrocortisone cream 2.5% Current treatment: metronidazole lotion daily only used for 30 days, did not notice improvement when using Follow up Diagnosis: Seborrheic Dermatitis Location: scalp Last visit: 7 weeks ago Symptoms: red, bumps Status: worsening Treatments tried and failed: antibiotic ointment, Aquaphor, Mupirocin 2% ointment, Clindamycin 300 mg 3x daily x 10 days. Hydrocortisone cream 2.5% Current treatment: Ciclopirox 0.77% cream once a day, has noticed improvement All pertinent medical history, medications, and allergies were reviewed. General Exam: alert, oriented to person, place, and time, normal affect, well appearing Unaccompanied A focused exam completed based on patient reported problems, see below: 1. Other seborrheic dermatitis Left Buccal Cheek, Left Ear, Left Malar Cheek, Right Buccal Cheek, Right Ear, Right Malar Cheek Improved with treatment Discussed that seborrheic dermatitis is a chronic condition that can be controlled but not cured. Continue ciclopirox cream apply topically daily. Notify office if flaring despite treatment. Related Medications ciclopirox (Loprox) 0.77 % cream Apply thin layer to affected area once a day, 30 day supply 2. Rash and other nonspecific skin eruption Left Forehead Scattered pink papules and pustules Biopsy today, see procedure note. Favor rosacea, patient has failed metronidazole topically, offered trial of doxycycline which it looks like patient has taken in the past - patient is a poor historian, does not remember if he took it in the past or if it worked and reports a possible history of c diff - I cannot find this history in his chart although it is possible he was treated somewhere else for this. Biopsy to further evaluate today, if biopsy shows rosacea would try to treat topically and avoid oral antibiotics if possible given possible history of c diff. Follow up in 1 week for suture removal/follow up. Lesion biopsy - Left Forehead Type of biopsy: punch Informed consent: discussed and consent obtained Informed consent comment: The risks and benefits were discussed. Risks include, but are not limited to, bleeding, infection, scarring, pain, & nerve damage. An opportunity to ask questions prior to the procedure was permitted and questions were answered. Patient was prepped and draped in usual sterile fashion: Area cleansed with alcohol. Anesthesia: the lesion was anesthetized in a standard fashion Anesthetic: 1% lidocaine w/ epinephrine 1-100,000 buffered w/ 8.4% NaHCO3 Punch biopsy size: A biopsy by punch method was performed using a dermal punch. Suture type: nylon Suture type comment: Hemostasis was achieved with suture. Hemostasis achieved with: suture Outcome: patient tolerated procedure well Post-procedure details: sterile dressing applied and wound care instructions given Post-procedure details comment: Emphasized the need to contact clinic for any signs of infection, uncontrollable bleeding, or complications. Dressing type: bandage Additional details: Amount of lidocaine used: 0.5 cc Number of sutures used: 1 Specimen sent for: H&E Photo taken Specimen A - Dermatopathology exam Differential Diagnosis: rosacea vs folliculitis vs pityrosporum folliculitis 3. Impetigo Left Frontal Scalp Scattered pustules Culture today. Specimen 1 - Aerobic culture Account Name: [facility] NPI: Radha Montes [id number] Next Visit: 1 week S/R and follow up documented in this encounter [facility] 09-10-2024 Note Pt called and notified [facility] 09-10-2024 Note Subjective Patient ID: Travis Coburn is a 83 y.o. male who presents for Psoriatic arthropathy and Follow-up HPI Mr. Travis Coburn is a 81 y.o. male with OA, CTS, Polymyalgia Rheumatica and Psoriatic Arthritis who presents today for routine follow-up. Patient was last seen in the clinic on 02/15/2024. At that visit, 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 was decreased from 10 mg weekly to 7.5 mg weekly (2.5 mg x 3 tablets) and continued on prednisone 5 mg (2.5 mg x2 tablets) daily. He takes 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 7.5 mg (2.5 mg x 3 tablets), and is tolerating it well with no side effects. He is compliant with folic acid. He has also been on 5 mg prednisone for years and noticing he needs to urinate frequently after a couple hours of taking it. He wonders if high sugars make him go to the bathroom or if its the medication. Overall he states this is tolerable. He does have mild morning stiffness and stiffness after prolonged rest but remains the same as last visit. He is looking forward to another [employer] season. He follows with orthopedics for Dupuytren's contracture in right hand. He is following with dermatology for facial rash. Additionally patient is following with nephrology to monitor his renal function. Currently his kidney function is stable. He follows with cardiology for fatigue and dyspnea. Patient has also been following with ENT for recently diagnosed right acoustic neuroma. Associated symptoms include tinnitus, difficulty with balance, hearing loss, and dizziness. Currently they are going to continue to monitor him with MRI every 6 months. Patient continues to reports changes in his vision involving blurriness and decreased peripheral vision. He follows with ophthalmology and was diagnosed with early dry stage nonexudative age-related macular degeneration of both eyes and age-related nuclear cataract of both eyes.He has a history of mouth sores but denies any today, no other concerns at this time. Review of Systems Constitutional: Negative for appetite change, chills and fatigue. HENT: Positive for hearing loss and tinnitus. Negative for mouth sores. Eyes: Positive for visual disturbance. Blurriness, decreased peripheral vision Respiratory: Negative for cough and shortness of breath. Cardiovascular: Negative for chest pain. Gastrointestinal: Negative for diarrhea, nausea and vomiting. Genitourinary: Positive for frequency. Musculoskeletal: Positive for arthralgias. Negative for back pain and joint swelling. Skin: Positive for rash. Neurological: Positive for dizziness. Balance problems Psychiatric/Behavioral: Negative for agitation. The patient is not nervous/anxious. Objective Visit Vitals BP 134/83 (BP Location: Right arm, Patient Position: Sitting, BP Cuff Size: Adult) Pulse 79 Ht 1.753 m (5' 9 ) Wt 116 kg (256 lb) SpO2 97% BMI 37.80 kg/m??? Smoking Status Former BSA 2.38 m??? Physical Exam Vitals reviewed. Constitutional: Appearance: Normal appearance. HENT: Head: Normocephalic and atraumatic. Nose: Nose normal. Eyes: Extraocular Movements: Extraocular movements intact. Conjunctiva/sclera: Conjunctivae normal. Pupils: Pupils are equal, round, and reactive to light. Cardiovascular: Rate and Rhythm: Normal rate and regular rhythm. Pulses: Normal pulses. Heart sounds: Normal heart sounds. Pulmonary: Effort: Pulmonary effort is normal. Breath sounds: Normal breath sounds. Abdominal: General: There is no distension. Musculoskeletal: General: No swelling, tenderness, deformity or signs of injury. Normal range of motion. Cervical back: Normal range of motion and neck supple. Skin: General: Skin is warm. Findings: Rash (Erythematous papules on forehead) present. Neurological: General: No focal deficit present. Mental Status: He is alert. Psychiatric: Mood and Affect: Mood normal. Behavior: Behavior normal. Assessment/Plan Patient is an 81 yo M who is here for follow-up of Polymyalgia Rheumatica and Psoriatic Arthritis currently on 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 7.5 mg weekly and prednisone 5 mg daily and leucovorin. He has a history of urinary tract infections and a E. Coli GI infection with bacterial overgrowth. Plan: - Continue 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 7.5 mg total (2.5 mg x3 tablets) weekly and folic acid supplementation - Decrease prednisone from 5 mg daily to 2.5 mg daily as tolerated. - Routine CBC and CMP ordered today - Hgb A1c ordered today - Previously discussed with patient the potential risks and benefits of 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 including chance of infection nausea hair loss oral ulcers or liver toxicity bone marrow toxicity etc. and the need to have regular laboratory monitoring for potential 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 toxicity/side effect. Also we discussed the potential use of IL-6 inhibitor to control symptoms of polymyalgia rheumatica and allow him to be completely off steroids. Diagnosis Plan 1. Psoriatic arthropathy (CMS/HCC) 2. PMR (polymyalgia rheum (more content not included)... [facility] 08-20-2024 Evaluation + Plan note Associated Problem(s): BMI 35.0-35.9,adult Reviewed the merits of healthy lifestyle choices on overall cardiovascular health. [facility] Work Phone: 08-20-2024 Evaluation + Plan note Associated Problem(s): Hyperlipidemia Low intensity statin On highest tolerated dose [facility] Work Phone: 08-20-2024 Miscellaneous Notes Associated Problem(s): BMI 35.0-35.9,adult Reviewed the merits of healthy lifestyle choices on overall cardiovascular health. Associated Problem(s): Hyperlipidemia Low intensity statin On highest tolerated dose Associated Problem(s): Cardiomyopathy September 2017 LVEF 45 to 50% TTE September 2017 LVEF 45-50% cardiac cath December 2021 LVEF 53% MPI 2024 TTE LVEF 50-55% No WMA AV p7:m4 Associated Problem(s): Coronary artery disease September 2017 cardiac cath RCA 50% No left system disease LVEF 45-50% Jul 2024 MPI: no ischemia, no infarct. EF 57% Associated Problem(s): Benign essential hypertension optimal in office Optimal at time of stress test Associated Problem(s): Short of breath on exertion Jul 2024: add-on due to concerns of progressive worsening dyspnea on exertion. Favorable cardiac testing including MPI, TTE and holter. documented in this encounter [facility] Work Phone: 08-20-2024 Evaluation + Plan note Associated Problem(s): Cardiomyopathy September 2017 LVEF 45 to 50% TTE September 2017 LVEF 45-50% cardiac cath December 2021 LVEF 53% MPI 2024 TTE LVEF 50-55% No WMA AV p7:m4 [facility] Work Phone: 08-20-2024 Evaluation + Plan note Associated Problem(s): Coronary artery disease September 2017 cardiac cath RCA 50% No left system disease LVEF 45-50% Jul 2024 MPI: no ischemia, no infarct. EF 57% [facility] Work Phone: 08-20-2024 Evaluation + Plan note Associated Problem(s): Benign essential hypertension optimal in office Optimal at time of stress test [facility] Work Phone: 08-20-2024 Evaluation + Plan note Associated Problem(s): Short of breath on exertion Jul 2024: add-on due to concerns of progressive worsening dyspnea on exertion. Favorable cardiac testing including MPI, TTE and holter. [facility] Work Phone: 08-20-2024 History of Present illness Narrative Chief Complaint I think I am doing fair Reason for Visit Patient presents to the office today for outpatient follow-up for testing results. Last evaluated in clinic by Jul 2024 due to complaints of shortness of breath. Subsequent testing reviewed: MPI no ischemia, no infarct ABILIO EF 50-55% no significant structural abnormalities Holter: NSR 0.8% PVC Presents today ambulatory with steady gait. Accompanied by spouse Patient denies any hospitalizations or significant changes to interval medical history since last office follow-up. History of Present Illness Patient is extremely pleasant 83 old gentleman who presents to review recent cardiovascular testing. Overall he is pleased with favorable testing. He continues to report shortness of breath if he goes up and down the basement stairs, he was able to ambulated in from the parking lot today without any concerns. He denies orthopnea or PND. Because of the weather he has been a little less active but hopes to start exercising again, he is using his dictionary exercise machines. We reviewed recent cardiovascular testing - cautioned on the sensitivities/specificity of perfusion studies and encouraged to seek attention if continued symptoms. Overall, he is much relieved with results of testing and shortness of breath likely element of deconditioning, age and BMI. Patient reports that overall has no complaint(s) of chest pain, chest pressure/discomfort, claudication, and dyspnea Daily activity: 4 METs Denies any change in exercise capacity or functional tolerance since last office visit. The importance of secondary prevention reviewed: HTN: Optimal HLD: Treated DM: Treated Smoker: Denies BMI: Reviewed the merits of healthy lifestyle choices on overall cardiovascular health. Review of Systems Cardiovascular: Negative for chest pain, dyspnea on exertion, irregular heartbeat, leg swelling, near-syncope, orthopnea, palpitations, paroxysmal nocturnal dyspnea and syncope. Respiratory: Positive for shortness of breath. Visit Vitals BP 140/68 (BP Location: Left arm, Patient Position: Sitting) Pulse 80 Ht 1.753 m (5' 9 ) Wt 110 kg (243 lb) BMI 35.88 kg/m Smoking Status Former BSA 2.31 m Physical Exam Vitals and nursing note reviewed. Constitutional: Appearance: Normal appearance. Cardiovascular: Rate and Rhythm: Normal rate and regular rhythm. Heart sounds: Normal heart sounds. Pulmonary: Effort: Pulmonary effort is normal. Breath sounds: Normal breath sounds. Musculoskeletal: Cervical back: Full passive range of motion without pain. Right lower leg: No edema. Left lower leg: No edema. Skin: General: Skin is cool. Neurological: Mental Status: He is alert and oriented to person, place, and time. Psychiatric: Attention and Perception: Attention normal. Mood and Affect: Mood normal. Behavior: Behavior is cooperative. Allergies Allergen Reactions Penicillins Anaphylaxis Other reaction(s): Unknown Bee Pollen Unknown Cat Dander Unknown Fluorouracil Rash Current Outpatient Medications Medication Instructions amitriptyline (ELAVIL) 25 mg, Nightly aspirin 81 mg, 2 times weekly carvedilol (COREG) 6.25 mg, 2 times daily (morning and late afternoon) cetirizine (ZYRTEC) 10 mg, Daily cyanocobalamin (Vitamin B-12) 1,000 mcg tablet 1 tablet, Daily fluticasone (Flonase) 50 mcg/actuation nasal spray 1 spray, Daily folic acid (FOLVITE) 1 mg, Daily glimepiride (AMARYL) 2 mg, Daily RT hydrocortisone 2.5 % cream 2 times daily PRN irbesartan (AVAPRO) 300 mg, Nightly magnesium oxide-Mg AA chelate (Magnesium, oxide/AA chelate,) 300 mg capsule 1 capsule, 2 times daily 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 (Trexall) 2.5 mg tablet 4 tablets, Once Weekly pantoprazole (PROTONIX) 40 mg, Daily before breakfast predniSONE (DELTASONE) 2.5 mg, 2 times daily rosuvastatin (CRESTOR) 5 mg, 2 times weekly Assessment: Short of breath on exertion Jul 2024: add-on due to concerns of progressive worsening dyspnea on exertion. Favorable cardiac testing including MPI, TTE and holter. Benign essential hypertension optimal in office Optimal at time of stress test Coronary artery disease September 2017 cardiac cath RCA 50% No left system disease LVEF 45-50% Jul 2024 MPI: no ischemia, no infarct. EF 57% Cardiomyopathy September 2017 LVEF 45 to 50% TTE September 2017 LVEF 45-50% cardiac cath December 2021 LVEF 53% MPI 2024 TTE LVEF 50-55% No WMA AV p7:m4 Hyperlipidemia Low intensity statin On highest tolerated dose BMI 35.0-35.9,adult Reviewed the merits of healthy lifestyle choices on overall cardiovascular health. Plan: Through informed decision making process incorporating patients unique circumstances, the following treatment plan will be initiated: 1. Prescription drug management of cardiovascular medication for efficacy, adherence to treatment, side effect assessment and polypharmacy. Current treatment clinically warranted and to continue without modifications. 2. Return for follow-up; in the interim, contact the office if new symptoms arise. Dr. Timmons as scheduled Fatou Cummins MSN, BAND SAW OPERATOR-RN LACTATION CONSULTANT, PMHNP-[facility] [place], [place] Please excuse any errors in grammar or translation related to this dictation. Voice recognition software was utilized to prepare this document. documented in this encounter [facility] Work Phone: 08-20-2024 Instructions GARRICK Ortega - 08/20/2024 3:30 PM EST Please bring all medicines, vitamins, and herbal supplements with you when you come to the office. Prescriptions will not be filled unless you are compliant with your follow up appointments or have a follow up appointment scheduled as per instruction of your physician. Refills should be requested at the time of your visit. PLAN: Through informed decision making process incorporating patients unique circumstances, the following treatment plan will be initiated: 1. Prescription drug management of cardiovascular medication for efficacy, adherence to treatment, side effect assessment and polypharmacy. Current treatment clinically warranted and to continue without modifications. 2. Return for follow-up; in the interim, contact the office if new symptoms arise. Dr. Timmons as scheduled documented in this encounter [facility] Work Phone: 07-26-2024 History of Present illness Narrative Images from the original note were not included. Travis Coburn is a 83 y.o. male presents with chief complaint of right hand Dupuytren's. HPI: Travis returns here today once again for evaluation of his right hand. He has had some ongoing difficulty. 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 Canales in [place]. He did review my information and did see that we do provide hand surgery and as such is here for further discussion. He does have some occasional pain. He feels that this is due to arthritis. He does have some radiation up his arm. He has had some neurologic work up in the past. He has no numbness, no significant weakness. He is an active individual. He does notice some deformity, contracture and stiffness. He has had no further care or treatment. He is frustrated by this and is here for a full definition of things and further option discussion. SUBJECTIVE: MEDICATIONS: Current Outpatient Medications Medication Instructions acetaminophen (Tylenol Extra Strength) 500 MG tablet Take 1 tablet twice a day by oral route as needed. amitriptyline (ELAVIL) 25 mg, Nightly PRN aspirin 81 MG chewable tablet 2 times weekly carvedilol (COREG) 6.25 mg, 2 times daily with meals cetirizine (ZYRTEC) 10 mg, Daily ciclopirox (Loprox) 0.77 % cream Apply thin layer to affected area once a day, 30 day supply cyanocobalamin (VITAMIN B-12) 100 mcg, Daily doxycycline (ADOXA) 100 mg, 2 times daily fluorouracil (Efudex) 5 % cream Apply to directed areas on the scalp, nose, and left cheek twice a day x 14 days. Dispense 30 day supply but only use for 14 days. fluticasone (Flonase) 50 MCG/ACT nasal spray 1 spray, Daily RT folic acid (Folvite) 1 MG tablet 1 tablet, Daily glimepiride (AMARYL) 2 mg, Daily before breakfast hydrocortisone 2.5 % cream Topical, 2 times daily PRN, Apply thin layer to affected areas bid prn for flares irbesartan (AVAPRO) 300 mg, Daily MAGNESIUM BISGLYCINATE PO 300 mg, 2 times daily 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 2.5 MG tablet 2 tablets, Weekly montelukast (SINGULAIR) 10 mg, Nightly pantoprazole (PROTONIX) 40 mg, Daily before breakfast predniSONE (DELTASONE) 5 mg, Daily rosuvastatin (CRESTOR) 5 mg, Daily ALLERGIES: Allergies Allergen Reactions Penciclovir Anaphylaxis Bee Pollen Unknown Other reaction(s): Unknown Cat Dander Unknown Other reaction(s): Unknown Penicillins Sulfa Antibiotics Fluorouracil Rash SURGICAL HISTORY: Past Surgical History: Procedure Laterality Date ELBOW ARTHROSCOPY W/ ARTHROTOMY 2001 HEART CATH 2018 HEMORRHOID SURGERY 2012 KNEE ARTHROSCOPY W/ ARTHROTOMY 2008 NASAL RECONSTRUCTION 05/31/2019 nasal wound with rotational flap ROTATOR CUFF REPAIR 2002 SEPTOPLASTY 2008 SMR Turbinates FAMILY HISTORY: Family History Problem Relation Name Age of Onset No Known Problems Mother No Known Problems Father No Known Problems Sister No Known Problems Brother Cancer Other Multiple myeloma Neg Hx Melanoma Neg Hx SOCIAL HISTORY: Social History Tobacco Use Smoking status: Former Types: Cigarettes Passive exposure: Never Smokeless tobacco: Never Vaping Use Vaping status: Never Used Substance Use Topics Alcohol use: Never Comment: caffeine 1-2 cups/day Drug use: Never Depression: Not at risk (02/15/2024) Received from [facility] PHQ-2 Patient Health Questionnaire-2 Score: 0 REVIEW OF SYMPTOMS: The review of systems, history and current medications list are all reviewed today. OBJECTIVE: Visit Vitals Ht 5' 7 Wt 244 lb BMI 38.22 kg/m Smoking Status Former BSA 2.29 m Physical Exam His orthopedic exam reveals a pleasant 83-year-old white male in no acute distress. He does have obvious palmar fibromatosis of the right hand, primarily effecting over the fourth metacarpal. It does not really go into the digit. He has some early contracture. This is not overly significant. He has no tenderness to palpation. No deformity otherwise appreciable and his neurocirculatory status is overall grossly intact. He has no atrophy noted. Radial and ulnar pulses are brisk. Examination of the contralateral left hand shows arc of motion without difficulty. No tenderness to palpation. Neurocirculatory status is overall grossly intact. Pulses are brisk. X-rays are done here today AP, lateral and oblique of the right wrist total of three views with permanent images are saved to the record and does show obvious degenerative change and severe degenerative change at the radiocarpal area. This is essential bone on bone between the distal radius and the scaphoid as well as the lunate. There is no further articular pattern or instability pattern. ASSESSMENT AND PLAN: Assessment/Plan Right hand palmar fibromatosis, Dupuytren's with wrist osteoarthritis. History of psoriatic arthritis. History of polymyalgia rheumatica. Chronic prednisone. The findings are discussed. We did spend significant time here today discussing the palmar fibromatosis. He is not really having a lot of symptomatology regarding this and as such, we would not recommend really for anything further or more aggressive such as surgery. We discussed the indication for surgery. It sounds as if he is having some arthritic symptoms. We did discuss treatment of that symptomatically to include corticosteroid injection. That could be added at any point. He is already on chronic prednisone. We would really recommend getting him off of that if at all possible. He does voice understanding. We will see him back here only on an as needed basis. We did discuss the fact that he does have some osteopenia on exam and consideration would be for a bone densometry test in this individual even as a male, he is at risk of osteopenia, osteoporosis due to the chronic prednisone use. All of his questions are otherwise answered this day. Follow up letter sent to Dr. Navarrete. Cosigned by Cj Danielle DO at 07/29/2024 11:34 AM EST documented in this encounter [facility] 07-23-2024 History of Present illness Narrative Images from the original note were not included. Skin Check Location: Patient requests a skin examination from the waist up Dermatologic history: history of Actinic Keratosis, history of Basal Cell Carcinoma Last visit: 07/11/24(rash) Established patient Lesions: Location: back, both hands, and abdomen Duration: months Quality: itchy Modifying factors: none Associated symptoms: rough, scaly Treatments: lotion Follow up Diagnosis: rash (favoring reaction to efudex) Location: face Last visit: 07/11/24 Symptoms: bumps, redness Status: some improvement Tried and failed: antibiotic ointment, Aquaphor, Mupirocin 2% ointment, Clindamycin 300 mg 3x daily x 10 days. Current treatment: Hydrocortisone cream 2.5 % bid All pertinent medical history, medications, and allergies were reviewed. General Exam: alert, oriented to person, place, and time, normal affect, well appearing Unaccompanied A complete skin exam was offered, pt declined. Areas not examined despite medical recommendation: From the waist down Scalp, Examined Head, Face Examined Neck Examined Chest Examined Back Examined Abdomen Examined Right arm Examined Left arm Examined Hands Examined Digits,nails: Examined Lymphatics: 1. Other rosacea Head - Anterior (Face) Mid face erythema with telangiectasias + scattered inflammatory papules/pustules. Flaring today The patient was informed that rosacea a chronic condition that can be controlled but not cured. The appearance of redness and pimples can often be improved with a low dose antibiotic or topical medications. The patient was informed that telangiectasia is common and can be improved with laser treatment. Start metro lotion apply to face daily. Follow up in 6-8 weeks, if satisfied with treatment okay to cancel appointment. Notify office if any worsening despite treatment. metroNIDAZOLE (Metrolotion) 0.75 % lotion lotion - Head - Anterior (Face) Apply thin layer to face, once daily, 30 day supply 2. Angioma of skin Chest (Upper Torso, Anterior) Scattered sutherland-red papule(s). The patient was informed that angiomas are benign growths on the the skin. No treatment is necessary. 3. Lentigines Head - Anterior (Face) Scattered whittaker macules in sun-exposed areas. The patient was informed that lentigines are benign pigmented lesions that occur on sun-exposed and sun-damaged skin. No treatment is necessary. Recommended regular use of broad spectrum sunscreen SPF 30 or higher 4. Seborrheic keratosis (5) Abdomen (Lower Torso, Anterior), Chest (Upper Torso, Anterior), Left Arm, Right Arm, Torso - Posterior (Back) Stuck on verrucous, whittaker-brown papules and plaques. Patient was counseled regarding these benign growths. Removal is normally not necessary, but they may be removed if they are symptomatic or for cosmetic reasons. 5. Other seborrheic dermatitis Left Buccal Cheek, Left Ear, Left Malar Cheek, Right Buccal Cheek, Right Ear, Right Malar Cheek Erythema and scale. Flaring today Discussed that seborrheic dermatitis is a chronic condition that can be controlled but not cured. Start ciclopirox cream apply topically daily. Notify office if flaring despite treatment. Follow up in 6-8 weeks, f satisfied with treatment okay to cancel appointment. Notify office if any worsening despite treatment. Related Medications ciclopirox (Loprox) 0.77 % cream Apply thin layer to affected area once a day, 30 day supply 6. Epidermal inclusion cyst Right Upper Back subcutaneous, mobile nodule with central punctum. Patient was counseled regarding cysts. Although benign, cysts often slowly enlarge and can occasionally become inflamed. Discussed the only way to definitively diagnose the lesion would be to have it removed and tested. Discussed treatment options including observation vs. excision. Patient elected for observation. Notify office if lesion is enlarging or becomes symptomatic. 7. History of basal cell carcinoma Left Nasal Dorsum No evidence of recurrence at BCC scar. The patient was counseled that scars from excisional sites of nonmelanoma skin cancers should be monitored closely for recurrence. The patient was instructed to contact the office for any new, changing, or symptomatic moles. The patient was also instructed to contact the office for any new lesions that develop within or around the previous surgery scar. 8. Actinic keratosis (2) Right Forearm - Posterior, Right Hand - Posterior Erythematous scaly papules Patient was counseled regarding these sun-induced growths that can develop into squamous cell carcinoma if left untreated. Discussed treatment with cryotherapy. It was emphasized that any treated lesions that fail to resolve should be re-evaluated. Cryotherapy performed today; see procedure note Diagnosis: Actinic keratosis Indication: Precancerous Location: see skin exam Consent: Verbal consent was obtained and risks were discussed, including, but not limited to risks of scarring, darker or felt checker pigmentary changes, recurrence, incomplete removal and infection. Method: Liquid nitrogen was used to treat the lesion(s) with two 5-10 second freeze-thaw cycles. Number of lesions treated: 2 Post-procedure instructions: Instructions were given orally and in writing. The office will be contacted if the lesion fails to resolve despite treatment, or if a side effect develops such as abnormal crusting, scabbing, redness or tenderness Cryotherapy, skin lesion - Right Forearm - Posterior, Right Hand - Posterior Related Medications fluorouracil (Efudex) 5 % cream Apply to directed areas on the scalp, nose, and left cheek twice a day x 14 days. Dispense 30 day supply but only use for 14 days. 9. Seborrheic keratosis, inflamed Right Shoulder - Posterior [place] and brown stuck on verrucous scaly papule with surrounding erythema The patient was informed that symptomatic seborrheic keratoses are benign growths that become inflamed, itchy, tender, traumatized, caught on clothing, or bleed. Symptomatic lesions can be treated with cryotherapy or curretage. Thicker lesions treated with cryotherapy may require more than one treatment. The patient was instructed to notify the office if abnormal redness or tenderness develops at the treatment site. Cryotherapy today, see procedure note. Diagnosis: Inflamed seborrheic keratosis Indication: Inflamed Consent: Verbal consent was obtained and risks were discussed, including, but not limited to risks of scarring, darker or felt checker pigmentary changes, recurrence, incomplete removal and infection. Method: Liquid nitrogen was used to treat the lesion(s) with two 5-10 second freeze-thaw cycles Number of lesions treated: 1 Post-procedure instructions: Instructions were given orally and in writing. The office will be contacted if the lesion fails to resolve despite treatment, or if a side effect develops such as abnormal crusting, scabbing, redness or tenderness Cryotherapy, skin lesion - Right Shoulder - Posterior Next Visit: 6-8 week follow up, 1 year skin exam documented in this encounter [facility] 07-23-2024 Evaluation + Plan note Associated Problem(s): Fatigue Presents today as an add-on for progressive worsening fatigability and change in exercise capacity and functional tolerance [facility] Work Phone: 07-23-2024 Evaluation + Plan note Associated Problem(s): Sleep apnea Remains compliant with CPAP [facility] Work Phone: 07-23-2024 Evaluation + Plan note Associated Problem(s): Cardiac and Vasculature October 2022 Holter monitor 1.2% PVC burden [facility] Work Phone: 07-23-2024 Evaluation + Plan note Associated Problem(s): Cardiomyopathy September 2017 LVEF 45 to 50% TTE September 2017 LVEF 45-50% cardiac cath December 2021 LVEF 53% MPI [facility] Work Phone: 07-23-2024 Miscellaneous Notes Associated Problem(s): Fatigue Presents today as an add-on for progressive worsening fatigability and change in exercise capacity and functional tolerance Associated Problem(s): Sleep apnea Remains compliant with CPAP Associated Problem(s): Cardiac and Vasculature October 2022 Holter monitor 1.2% PVC burden Associated Problem(s): Cardiomyopathy September 2017 LVEF 45 to 50% TTE September 2017 LVEF 45-50% cardiac cath December 2021 LVEF 53% MPI Associated Problem(s): Short of breath on exertion Presents today as an add-on due to concerns of progressive worsening dyspnea on exertion Associated Problem(s): Hyperlipidemia Low intensity statin On highest tolerated dose Associated Problem(s): Coronary artery disease September 2017 cardiac cath RCA 50% No left system disease LVEF 45-50% December 2021 MPI no ischemia, no infarct. LVEF 53%. Associated Problem(s): Benign essential hypertension Optimal in office documented in this encounter [facility] Work Phone: 07-23-2024 Evaluation + Plan note Associated Problem(s): Short of breath on exertion Presents today as an add-on due to concerns of progressive worsening dyspnea on exertion [facility] Work Phone: 07-23-2024 Evaluation + Plan note Associated Problem(s): Hyperlipidemia Low intensity statin On highest tolerated dose [facility] Work Phone: 07-23-2024 Evaluation + Plan note Associated Problem(s): Coronary artery disease September 2017 cardiac cath RCA 50% No left system disease LVEF 45-50% December 2021 MPI no ischemia, no infarct. LVEF 53%. [facility] Work Phone: 07-23-2024 Evaluation + Plan note Associated Problem(s): Benign essential hypertension Optimal in office [facility] Work Phone: 07-23-2024 History of Present illness Narrative Chief Complaint I just been feeling so tired and wiped out lately Reason for Visit Add on Patient presents to the office today for outpatient follow-up for fatigue, dyspnea on exertion. Last evaluated in clinic by Dr. Luna November 2023. Presents today ambulatory with steady gait. Accompanied by spouse Patient denies any hospitalizations or significant changes to interval medical history since last office follow-up. Follows routinely with PCP and nephrology. Reports recent labs. History of Present Illness Patient is a pleasant 83-year-old gentleman who presents today with concerns of labile blood pressure, fatigability and progressive worsening shortness of breath. He reports that the symptoms have been progressive worsening for a while now . Over the weekend he had to carry his garbage out down the driveway and he came in and just was not feeling good reports blood pressure 177/114. He reports he needs to go up and down the basement stairs and it just wears me out so much . He reports sometimes he feels a chest aching but this is very sporadic in nature. He remains compliant with his CPAP treatment. Weight is up 11 pounds without evidence of overt volume overload. Denies any type of palpitations. Reports his blood pressure has been labile at home. PCP increase carvedilol to 3 times daily. For now he will take 12 point 5 in the morning and 6.2 5 at night. He has a wrist machine at home and will bring it in so I can calibrated at next visit. He is requesting cardiac catheterization. Reviewed the threshold to proceed and the risk of invasive evaluation. After lengthy discussion he is very concerned regarding this fatigability, change in exercise capacity and functional tolerance and dyspnea on exertion. Symptoms do not seem to represent decompensated heart failure or unstable angina. He does agree to proceed with Lexiscan perfusion study to rule out underlying ischemic heart disease, repeat echocardiogram to verify no evidence of cardiomyopathy. At age of 83 prior left atrium mildly dilated he is at risk for atrial fibrillation and agrees to complete Holter monitor. He will return to clinic to review testing. Patient reports that overall has no complaint(s) of chest pain, chest pressure/discomfort, claudication, exertional chest pressure/discomfort, irregular heart beat, and lower extremity edema or has complaint(s) of dyspnea and fatigue. Daily activity: Less than 4 METS Reports decrease in exercise capacity or functional tolerance since last office visit. The importance of primary prevention reviewed: HTN: Optimal in office HLD: Treated DM: Treated Smoker: Denies BMI: Reviewed the merits of healthy lifestyle choices on overall cardiovascular health. Review of Systems Constitutional: Positive for malaise/fatigue. Cardiovascular: Negative for chest pain, dyspnea on exertion, irregular heartbeat, leg swelling, near-syncope, orthopnea, palpitations, paroxysmal nocturnal dyspnea and syncope. Respiratory: Positive for shortness of breath. Visit Vitals BP 124/74 (BP Location: Left arm, Patient Position: Sitting) Pulse 64 Ht 1.753 m (5' 9 ) Wt 112 kg (246 lb) BMI 36.33 kg/m Smoking Status Former BSA 2.34 m Physical Exam Vitals and nursing note reviewed. Constitutional: Appearance: Normal appearance. Cardiovascular: Rate and Rhythm: Normal rate and regular rhythm. Heart sounds: Normal heart sounds. Pulmonary: Effort: Pulmonary effort is normal. Breath sounds: Normal breath sounds. Musculoskeletal: Cervical back: Full passive range of motion without pain. Right lower leg: No edema. Left lower leg: No edema. Skin: General: Skin is cool. Neurological: Mental Status: He is alert and oriented to person, place, and time. Psychiatric: Attention and Perception: Attention normal. Mood and Affect: Mood normal. Behavior: Behavior is cooperative. Allergies Allergen Reactions Penicillins Anaphylaxis Other reaction(s): Unknown Bee Pollen Unknown Cat Dander Unknown Fluorouracil Rash Current Outpatient Medications Medication Instructions amitriptyline (ELAVIL) 25 mg, Nightly aspirin 81 mg, 2 times weekly carvedilol (COREG) 6.25 mg, 2 times daily (morning and late afternoon) cetirizine (ZYRTEC) 10 mg, Daily cyanocobalamin (Vitamin B-12) 1,000 mcg tablet 1 tablet, Daily fluticasone (Flonase) 50 mcg/actuation nasal spray 1 spray, Daily folic acid (FOLVITE) 1 mg, Daily glimepiride (AMARYL) 2 mg, Daily RT hydrocortisone 2.5 % cream 2 times daily PRN irbesartan (AVAPRO) 300 mg, Nightly magnesium oxide-Mg AA chelate (Magnesium, oxide/AA chelate,) 300 mg capsule 1 capsule, oral, 2 times daily 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 (Trexall) 2.5 mg tablet 4 tablets, Once Weekly pantoprazole (PROTONIX) 40 mg, Daily before breakfast predniSONE (DELTASONE) 2.5 mg, 2 times daily rosuvastatin (CRESTOR) 5 mg, 2 times weekly Assessment: Benign essential hypertension Optimal in office Coronary artery disease September 2017 cardiac cath RCA 50% No left system disease LVEF 45-50% December 2021 MPI no ischemia, no infarct. LVEF 53%. Hyperlipidemia Low intensity statin On highest tolerated dose Short of breath on exertion Presents today as an add-on due to concerns of progressive worsening dyspnea on exertion Cardiomyopathy September 2017 LVEF 45 to 50% TTE September 2017 LVEF 45-50% cardiac cath December 2021 LVEF 53% MPI Cardiac and Vasculature October 2022 Holter monitor 1.2% PVC burden Sleep apnea Remains compliant with CPAP Fatigue Presents today as an add-on for progressive worsening fatigability and change in exercise capacity and functional tolerance Plan: Through informed decision making process incorporating patients unique circumstances, the following treatment plan will be initiated: 1. Prescription drug management of cardiovascular medication for efficacy, adherence to treatment, side effect assessment and polypharmacy. Current treatment clinically warranted and to continue without modifications. 2. Lexiscan MPI (fatigue, SOB) no treadmill due to fatigue, GONZALEZ, balance issues due to schwannoma 3. Echo (SOB, CM) 4. 24 hour holter (GONZALEZ, fatigue) 5. Return for follow-up; in the interim, contact the office if new symptoms arise. PHOTOGRAMMETRIST after testing Fatou Cummins MSN, BAND SAW OPERATOR-RN LACTATION CONSULTANT, PMHNP-[facility] [place], [place] Please excuse any errors in grammar or translation related to this dictation. Voice recognition software was utilized to prepare this document. documented in this encounter [facility] Work Phone: 07-23-2024 Instructions GARRICK Ortega - 07/23/2024 9:30 AM EST Please bring all medicines, vitamins, and herbal supplements with you when you come to the office. Prescriptions will not be filled unless you are compliant with your follow up appointments or have a follow up appointment scheduled as per instruction of your physician. Refills should be requested at the time of your visit. PLAN: Through informed decision making process incorporating patients unique circumstances, the following treatment plan will be initiated: 1. Prescription drug management of cardiovascular medication for efficacy, adherence to treatment, side effect assessment and polypharmacy. Current treatment clinically warranted and to continue without modifications. 2. Lexiscan MPI (fatigue, SOB) no treadmill due to fatigue, GONZALEZ, balance issues due to schwannoma 3. Echo (SOB, CM) 4. 24 hour holter (GONZALEZ, fatigue) 5. Return for follow-up; in the interim, contact the office if new symptoms arise. PHOTOGRAMMETRIST after testing documented in this encounter [facility] Work Phone: 07-11-2024 History of Present illness Narrative Images [...] skin eruption Head - Anterior (Face), Scalp [place] patches and plaques. Favoring robust reaction to [...] scheduled with EP documented in this encounter [facility] 06-25-2024 Note Right Eye Quality was good. Scan locations included subfoveal. Progression has been stable. Findings include normal observations. Left Eye Quality was good. Scan locations included subfoveal. Progression has been stable. Findings include normal observations. Notes Good scan with normal appearance [facility] 06-25-2024 History of Present illness Narrative Images from the original note were not included. Assessment/Plan Diagnoses and all orders for this visit: Type 2 diabetes mellitus without complication, with long-term current use of insulin ([facility]) - Diabetes Mellitus without sign of diabetic [...] scrubs were recommended. 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 Visit date: 04/17/24 Reason for today's visit: Follow up for CKD stage 3 and Hypertension SUBJECTIVE: BACKGROUND: Travis Coburn is a 83 y.o. male has a past medical history of Diabetes mellitus ([facility]), Hypertension, Polymyalgia rheumatica ([facility]), and Psoriatic arthritis ([facility]). Patient has history of Type [...] 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 10 mg once weekly by his elementary spanish teacher for polymyalgia rheumatica Blood pressure & heart rate: Visit Vitals BP 127/69 (BP Location: Right arm, Patient Position: Sitting) Pulse 77 Resp 16 Blood pressure at home ranges 130/78 to 140/80 mm of hg. He takes Irbesartan 300 mg daily and Carvedilol 6.25 mg bid. He has stopped taking Hydrochlorothiazide and lasix. He denies edema in lower extremities. --- Review of systems Review of Systems Constitutional: [...] Iron studies: Lab (more content not included)... 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 say its [...] Director Vestibular Rehabilitation documented in this encounter [facility] 03-08-2024 History of Present illness Narrative Travis Coburn [id number] 03/06/24 Subjective: 83 yom sent to PT [...] psoriatic arthritis Vision troubles they go funny, 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 [facility] 01-19-2024 Hospital Discharge instructions Patient Education [...] urethra. Follow these instructions at home: Take [id number] and prescription medicines only as told by [...] provider. Document Revised: 01/12/2022 Document Reviewed: 01/12/2022 [employer] Patient Education 2022 Post-A-Vox. Follow Up Care 03/20/2023 15:42:16 With:MIRIAN TURNER, Nguyễn Peter, URL Address: [address] [place] [address]- When: Unknown [facility] 11-27-2023 History of Present illness Narrative Subjective Travsi Coburn is a 83 y.o. male Chief [...] Rfl: Assessment/Plan 1. 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 No recurrence of symptoms such as those that preceded his original diagnosis. 2. Benign essential hypertension Review of treatment strategy demonstrates good control 3. Mixed hyperlipidemia Review of treatment strategy demonstrates good control 4. Former cigarette smoker Congratulated on cessation Scribe Attestation By signing my name below, I, Ban Jailene Blackman LPN attest that this documentation has been [...] discussion and plan. documented in this encounter [facility] Work Phone: 11-27-2023 Instructions Ban Lisa LPN [...] instructions on exercise. documented in this encounter [facility] Work Phone: 10-11-2023 Note Attestation signed by Too Thompson MD at 10/12/2023 11:42 PM I saw, interviewed, examined and evaluated the patient with Nephrology fellow Dr. Faith Matias. I participated in the medical management of the patient. I reviewed the fellow's note and agree with the fellow's documentation in the note. Too Thompson MD Faculty, Division of Nephrology, Department of Medicine, [facility]. [facility] Patient: Travis Coburn; 82 y.o. Visit date: 10/11/23 Reason for today's visit: Follow up for CKD stage 3 and Hypertension SUBJECTIVE: BACKGROUND: Travis Coburn is a 82 y.o. male has a past medical history of Diabetes mellitus ([facility]), Hypertension, Polymyalgia rheumatica ([facility]), and Psoriatic arthritis ([facility]). Patient has history of Type [...] 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 10 mg once weekly by his elementary spanish teacher for polymyalgia rheumatica Blood pressure & heart [...] wobbly Pertinent labs/images: See Assessment & Plan --- Review of systems In addition to above: [...] Lab Results Com (more content not included)... [facility] 07-18-2023 Note Chief Complaint consultation for [...] smoker, quit more (more content not included)... [facility] Comment on above: Result Comment: Elec tronically Signed By: MAXX TURNER, Shaquille Ko.chavez\Date and Time Signed: 07/18/23 14:37 EST 03-20-2023 Hospital Discharge instructions Patient Education 03/20/2023 [...] urethra. Follow these instructions at home: Take [id number] and prescription medicines only as told by [...] provider. Document Revised: 01/12/2022 Document Reviewed: 01/12/2022 [employer] Patient Education 2022 Post-A-Vox. Follow Up Care 08/23/2021 11:50:10 With:Nguyễn VELA MD, URL Address: [facility] [address], [place] [address] [phone] When:Within 6 Month(s) [facility] Evaluation + Plan note Future Appointments Appointment Date:09/18/2023 12:45:00 PM Scheduled Provider:Nguyễn VELA MD [facility] Appointment Type:URO Office Visit [facility] Evaluation + Plan note Future Appointments Appointment Date:08/22/2023 01:40:00 PM Scheduled Provider:Shaquille LILLY MD [facility] App[facility] Type: Procedure 30 Appointment Date:09/18/2023 12:45:00 PM Scheduled Provider:Nguyễn VELA MD Location:[facility] Appointment Type:URO Office Visit [facility] [place] Evaluation + Plan note Future Appointments Appointment Date:09/01/2023 01:40:00 PM Scheduled Provider:Shaquille LILLY MD Location: [place] Appointment Type: Established 15 Appointment Date:09/18/2023 12:45:00 PM Scheduled Provider:Nguyễn VELA [facility] Office Visit General Surgery [place] Evaluation + Plan note Future Appointments Appointment Date:09/13/2023 03:00:00 PM Scheduled Provider:Shaquille LILLY MD Location: [place] Appointment Type: Established 15 Appointment Date:09/18/2023 12:45:00 PM Scheduled Provider:Nguyễn VELA MD [facility] Appointment Type:URO Office Visit General Surgery [place] Evaluation + Plan note Future Appointments Appointment Date:11/27/2023 11:30:00 AM Scheduled Provider:Nguyễn VELA MD Location:[facility] Appointment Type:URO Office Visit General Surgery [place] Evaluation note No assessment inform ation available [facility] Work Phone: Evaluation note Diagnosis 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- Primary Benign essential hypertension Essential hypertension, benign Mixed hyperlipidemia Former cigarette smoker Personal history of tobacco use, presenting hazards to health documented in this encounter [facility] Work Phone: Evaluation note* Diagnosis Cervicalgia- Primary [...] complication, with long-term current use of insulin ([facility])- Primary 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 [...] eruption- Primary [facility] Diagnosis Cervicalgia- Primary Unilateral vestibular weakness, right Balance disorder [facility] Diagnosis Short of breath on exertion- Primary Benign essential hypertension Essential hypertension, benign Mixed hyperlipidemia 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 Obstructive sleep apnea syndrome Obstructive sleep apnea (adult) (pediatric) Fatigue, unspecified type Dyspnea on exertion Other dyspnea and respiratory abnormality Cardiomyopathy, unspecified type (Multi) documented in this encounter [facility] Work Phone: Evaluation note* Diagnosis Other rosacea- Primary Angioma of skin Lentigines Seborrheic keratosis Other seborrheic dermatitis Epidermal inclusion cyst Sebaceous cyst History of basal cell carcinoma Personal history of other malignant neoplasm of skin Actinic keratosis Seborrheic keratosis, inflamed documented in this encounter [facility]Evaluation [facility]* Diagnosis Short of breath on exertion- Primary Benign essential hypertension Essential hypertension, benign Mixed hyperlipidemia 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 Obstructive sleep apnea syndrome Obstructive sleep apnea (adult) (pediatric) Fatigue, unspecified type Dyspnea on exertion Other dyspnea and respiratory abnormality Cardiomyopathy, unspecified type (Multi) Short of breath on exertion Benign essential hypertension Essential hypertension, benign documented in this encounter [facility] Work Phone: Evaluation note* Diagnosis Right hand pain- Primary Pain in soft tissues of limb Primary osteoarthritis of right wrist Dupuytren's contracture Contracture of palmar fascia documented in this encounter [facility] HealthcareEvaluation note* Diagnosis Unilateral vestibular weakness, right- Primary Cervicalgia Balance disorder documented in this encounter [facility] HealthcareEvaluation note* Diagnosis Short of breath on exertion- Primary Benign essential hypertension Essential hypertension, benign Mixed hyperlipidemia 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 Obstructive sleep apnea syndrome Obstructive sleep apnea (adult) (pediatric) Fatigue, unspecified type Dyspnea on exertion Other dyspnea and respiratory abnormality Cardiomyopathy, unspecified type (Multi) Short of breath on exertion Fatigue, unspecified type documented in this encounter [facility] Work Phone: Evaluation note* Diagnosis Short of breath on exertion- Primary Benign essential hypertension Essential hypertension, benign Mixed hyperlipidemia 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 Obstructive sleep apnea syndrome Obstructive sleep apnea (adult) (pediatric) Fatigue, unspecified type Dyspnea on exertion Other dyspnea and respiratory abnormality Cardiomyopathy, unspecified type (Multi) Benign essential hypertension- Primary Essential hypertension, benign Short of breath on exertion 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 Mixed hyperlipidemia Cardiomyopathy, unspecified type (Multi) BMI 35.0-35.9,adult Obstructive sleep apnea syndrome Obstructive sleep apnea (adult) (pediatric) documented in this encounter [facility] Work Phone: Evaluation note* Diagnosis Other seborrheic dermatitis- Primary Rash and other nonspecific skin eruption Impetigo [facility]* Diagnosis EIC (epidermal inclusion cyst)- Primary Sebaceous cyst Encounter for removal of sutures Seborrheic keratosis, inflamed Folliculitis Other specified disease of hair and hair follicles documented in this encounter [facility] [...] will be reviewed at his next visit. -[facility] 250 DO Work Phone: History of Present [...] will be reviewed at his next visit. [place] [id number] DO Work Phone: History of Present illness [...] recommendation and will attempt to implement our recommendations.[place] [id number] DO Work Phone: Hospital course Narrative No data available for this section [facility] Discharge instructions No data available for this section General Surgery [place] Progress note No data available for this section [facility] reason for referral (narrative)* Consultation (Routine) - Authorized Specialty Diagnoses / Procedures Referred By Contac t Referred To Contact Cardiology Diagnoses 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 Procedures Follow Up In Cardiology Johnnie Deras MD [facility] [facility], [address] [address] Johnnie Deras MD [address] [facility] [place] [address] Referral ID Status Reason Start Date Expiration Date V isits Requested Visits Authorized [id number] Authorized 11/27/2023 11/26/2024 1 1 T [facility] Work Phone: Reason for visit Narrative* Rehabilitation - Outpatient (Routine) - Authorized Specialty Diagnoses / Procedures Referred By Contac t Referred To Contact Physical Therapy Diagnoses Benign neoplasm of cranial nerves (CMS/HCC) Dizziness and giddiness Procedures [place] PHYSICAL THERAPY EVALUATION LOW COMPLEX [place] [address] [place] [address] Phone: tel: Shaquille Valencia, PT [address] [place] [address] Phone: tel: fax: Referral ID Status Reason Start Date Expiration Date V isits Requested Visits Authorized [id number] Authorized 03/06/2024 09/02/2024 25 29 [facility]* Rehabilitation - Outpatient (Routine) - Authorized Specialty Diagnoses / Procedures Referred By Contac t Referred To Contact Physical Therapy Diagnoses Benign neoplasm of cranial nerves (CMS/HCC) Dizziness and giddiness Procedures [place] PHYSICAL THERAPY EVALUATION LOW COMPLEX [place] [address] [place] [address] Phone: tel: Shaquille Valencia, PT [address] [place] [address] Phone: tel: fax: Referral ID Status Reason Start Date Expiration Date V isits Requested Visits Authorized [id number] Authorized 03/06/2024 07/09/2024 25 29 [facility] N[facility]* Rehabilitation - Outpatient (Routine) - Authorized Specialty Diagnoses / Procedures Referred By Contac t Referred To Contact Physical Therapy Diagnoses Benign neoplasm of cranial nerves (CMS/HCC) Dizziness and giddiness Procedures [place] PHYSICAL THERAPY EVALUATION LOW COMPLEX [place] [address] [place] [address] Phone: tel: Shaquille Valencia, PT [address] [place] [address] Phone: tel: fax: Referral ID Status Reason Start Date Expiration Date Visits Requested Visits Authorized [id number] Authorized Consult and Treat 07/17/2024 11/19/2024 1 23 [facility] N[facility]ative* CV Imaging (Routine) - Authorized Specialty Diagnoses / Procedures Referred By Contac t Referred To Contact Cardiology Diagnoses Short of breath on exertion Benign essential hypertension Procedures Transthoracic Echo Complete [place] ECHO TTHRC R-T 2D W/WOM-MODE COMPL SPEC&COLR Fatou Zayas, BAND SAW OPERATOR-RN LACTATION CONSULTANT [address] [facility] [place] [address] Phone: tel: fax: Referral ID Status Reason Start Date Expiration Date Visits Requested Visits Authorized [id number] Authorized Perform Procedure 07/23/2024 07/23/2025 1 1 [facility] Work Phone: Reason for visit Narrative* Rehabilitation - Outpatient (Routine) - Authorized Specialty Diagnoses / Procedures Referred By Aimee cruz Referred To Contact Physical Therapy Diagnoses Benign neoplasm of cranial nerves (CMS/HCC) Dizziness and giddiness Procedures [place] PHYSICAL THERAPY EVALUATION LOW COMPLEX [address] [place] [address] [place] [address] Phone: tel: fax: Shaquille Valencia, PT [address] [place] [address] Phone: tel: fax: Referral ID Status Reason Start Date Expiration Date Visits Requested Visits Authorized [id number] Authorized Consult and Treat 07/17/2024 07/09/2025 1 30 [facility] N[facility]ative* Cardiac Stress Testing (Routine) - Authorized Specialty Diagnoses / Procedures Referred By Aimee t Referred To Contact Radiology Diagnoses Short of breath on exertion Fatigue, unspecified type Procedures Nuclear Stress Test CHG MYOCARDIAL SPECT MULTIPLE STUDIES Fatou Cummins, BAND SAW OPERATOR-RN LACTATION CONSULTANT [address] [facility] [address], [address] [address] Phone: tel: fax: Referral ID Status Reason Start Date Expiration Date V isits Requested Visits Authorized [id number] Authorized 07/23/2024 07/23/2025 5 5 [facility] Work Phone: Reason for visit Narrative* Cardiac Stress Testing (Routine) - Authorized Specialty Diagnoses / Procedures Referred By Aimee cruz Referred To Contact Radiology Diagnoses Short of breath on exertion Fatigue, unspecified type Procedures Nuclear Stress Test CHG MYOCARDIAL SPECT MULTIPLE STUDIES Fatou Cummins, BAND SAW OPERATOR-RN LACTATION CONSULTANT [address] [facility] [address], [address] [address] Phone: tel: fax: Referral ID Status Reason Start Date Expiration Date V isits Requested Visits Authorized [id number] Authorized 07/23/2024 07/23/2025 5 5 [facility] Work Phone: Summary Purpose Family History No [...] September 08 18 11:54am Chief Complaint TRAVIS ALMAS is being seen for an annual follow-up of dizziness and sent back by Hypotension, Bradycardia.TRAVIS COBURN is being seen for an annual follow-up of dizziness and sent back by Dr.Hoy Hypotension, Bradycardia.Follow up to discuss stress results.Follow [...] section and content) DATE CREATED AUTHOR 11/30/2021 [facility] DATE CREATED AUTHOR AUTHOR'S ORGANIZ ATION 12/31/2021 [facility] DATE CREATED AUTHOR AUTHOR'S ORGANIZ ATION 01/01/2022 [facility] DATE CREATED AUTHOR AUTHOR'S ORGANIZ ATION 10/29/2022 [facility] DATE CREATED AUTHOR AUTHOR'S ORGANIZ ATION 10/30/2022 [facility] DATE CREATED AUTHOR AUTHOR'S ORGANIZ ATION 04/12/2023 [facility] DATE CREATED AUTHOR AUTHOR'S ORGANIZ ATION 04/14/2023 [facility] DATE CREATED AUTHOR AUTHOR'S ORGANIZ ATION 08/25/2023 [facility] DATE CREATED AUTHOR AUTHOR'S ORGANIZ ATION 11/14/2023 [facility] DATE CREATED AUTHOR AUTHOR'S ORGANIZ ATION 08/12/2024 [facility] DATE CREATED AUTHOR AUTHOR'S ORGANIZ ATION 09/15/2024 [facility] DATE CREATED AUTHOR AUTHOR'S ORGANIZ ATION 09/19/2024 [facility] DATE CREATED AUTHOR AUTHOR'S ORGANIZ ATION 09/22/2024 [facility] Reason for Visit (unrecogniz ed section and content) Reason Comments Annual Exam 1yr Reason Comments Macular Degeneration Cataract Diabetic Eye Exam Specialty Diagnoses / Procedures Referred By Aimee cruz Referred To Contact Physical Therapy Diagnoses Benign neoplasm of cranial nerves (CMS/HCC) Dizziness and giddiness Procedures [place] PHYSICAL THERAPY EVALUATION LOW COMPLEX [address] [place] [address] [place] [address] Shaquille Valencia, PT [address] [place] [address] Referral ID Status Reason Start Date Expiration Date V isits Requested Visits Authorized [id number] Authorized 03/06/2024 09/02/2024 25 25 Referral ID Status Reason Start Date Expiration Date V isits Requested Visits Authorized [id number] Authorized 03/06/2024 09/02/2024 25 29 Reason Comments Rash Reason Comments Follow-up SOB HTN / MT Reason Comments Skin Check Suspicious Skin Lesion Follow-up Reason Comments Pain Reason Comments Results Specialty Diagnoses / Procedures Referred By Contac t Referred To Contact Cardiology Diagnoses Short of breath on exertion Procedures Follow Up In Cardiology Fatou Cummins, BAND SAW OPERATOR-RN LACTATION CONSULTANT [address] [facility] [address] [place] [address] Phone: tel: fax: Referral ID Status Reason Start Date Expiration Date V isits Requested Visits Authorized [id number] Authorized 07/23/2024 07/23/2025 1 1 Reason Comments Follow-up Reason Comments Suture / Staple Removal Patient Care team informatio n (unrecognized section and content) Team Status: Active Member Role Status Dates Roman Navarrete MD Primary Care Provider Active Team Status: Inactive Member Role Status Dates Roman Navarrete MD Primary Care Provider Active Start: August 22, 2023 End: August 22, 2023 Shaquille Lilly MD [facility] Attending Provider Active Start: August 22, 2023 End: August 22, 2023 Respiratory Manager Relationship Specialty Start Date End Date Roman Navarrete MD [address] [place] [address] PCP - General 12/08/21 Respiratory Manager Relationship Specialty Start Date End Date Roman Navarrete MD [address] [place] [address] PCP - General Family Medicine 10/20/23 Respiratory Manager Relationship Specialty Start Date End Date Roman Navarrete MD [address] [facility] [place] [address] PCP - General Family Medicine 10/20/23 Respiratory Manager Relationship Specialty Start Date End Date Roman Navarrete MD [address] [place] [facility] [place] [address] PCP - General Family Medicine 10/20/23 Respiratory Manager Relationship Specialty Start Date End Date Roman Navarrete MD [address] [place] [facility] [place] [address] PCP - General Family Medicine 10/20/23 Respiratory Manager Relationship Specialty Start Date End Date Roman Navarrete MD [address] [place] [facility] [place] [address] PCP - General Family Medicine 10/20/23 Respiratory Manager Relationship Specialty Start Date End Date Roman Navarrete MD [address] [place] [facility] [place] [address] PCP - General Family Medicine 10/20/23 Respiratory Manager Relationship Specialty Start Date End Date Roman Navarrete MD [address] [place] [facility] [place] [address] PCP - General Family Medicine 10/20/23 Respiratory Manager Relationship Specialty Start Date End Date Roman Navarrete MD [address] [place] [facility] [place] [address] PCP - General Family Medicine 10/20/23 Respiratory Manager Relationship Specialty Start Date End Date Roman Navarrete MD [address] [place] [facility] [place] [address] PCP - General Family Medicine 10/20/23 Respiratory Manager Relationship Specialty Start Date End Date Roman Navarrete MD [address] [place] [facility] [place] [address] PCP - General Family Medicine 10/20/23 Respiratory Manager Relationship Specialty Start Date End Date Roman Navarrete MD [address] [facility] [place] [place] [address] PCP - General 12/08/21 Respiratory Manager Relationship Specialty Start Date End Date Roman Navarrete MD [address] [place] [address] PCP - General Family Medicine 10/20/23 Respiratory Manager Relationship Specialty Start Date End Date Roman Navarrete MD [address] [facility] [place] [address] PCP - General 12/08/21 Respiratory Manager Relationship Specialty Start Date End Date Roman Navarrete MD [address] [place] [address] PCP - General Family Medicine 10/20/23 Respiratory Manager Relationship Specialty Start Date End Date Roman Navarrete MD [address] [place] [facility] [place] [address] PCP - General Family Medicine 10/20/23 Respiratory Manager Relationship Specialty Start Date End Date Roman Navarerte MD [address] [place] [facility] [address] PCP - General 12/08/21 Respiratory Manager Relationship Specialty Start Date End Date Roman Navarrete MD [address] [place] [address] PCP - General 12/08/21 Respiratory Manager Relationship Specialty Start Date End Date Roman Navarrete MD [address] [place] [address] PCP - General 12/08/21 Respiratory Manager Relationship Specialty Start Date End Date Roman Navarrete MD [address] [place] [address] PCP - General 12/08/21 Respiratory Manager Relationship Specialty Start Date End Date Roman Navarrete MD [address] [place] [address] PCP - General 12/08/21 Respiratory Manager Relationship Specialty Start Date End Date Roman Navarrete MD [address] [place] [address] PCP - General Family Medicine 10/20/23 Respiratory Manager Relationship Specialty Start Date End Date Roman Navarrete MD [address] [place] [address] PCP - General Family Medicine 10/20/23 Respiratory Manager Relationship Specialty Start Date End Date Roman Navarrete MD [address] [place] [address] PCP - General Family Medicine 10/20/23 Goals [...] BE BASED ON THE PRIMARY CLINICAL RECORDS. [facility], [facility]. provides no warranty or guarantee of the accuracy or completeness of information in this document.
--- NOTE | 2024-09-25 09:41 | MR_ITS ---
The [address] [address] Patient Name: JULIO OLIVAREZ MRN: [id number] date: 1940 Sex: M Assigned Patient Location: LAB Current Patient Location: LAB Accession/Order Number: [id number] Exam Date: 09/25/2024 19:50 Report Date: 09/25/2024 19:59 At the request of: KIERA BARRAGAN MD Procedure: MR IAC wo/w con MRI the brain/IACs performed without and with contrast INDICATION: Vestibular schwannoma, dizziness COMPARISON 01/09/2024 FINDINGS: No restricted diffusion. Mild generalized involutional changes with prominence of ventricles and sulci. Mild periventricular and subcortical T2 prolongation identified nonspecific, commonly attributed to chronic small vessel ischemic disease. Major intracranial flow voids preserved. No shift of midline structure. Basal cisterns are patent. Intrinsic T2 signal within the inner ear structures is maintained. Within the right IAC, there is redemonstration of a acoustic neuroma measures 1.7 x 1.2 cm. Previously, this measured 1.6 x 1.0 cm. No additional foci of abnormal postcontrast enhancement identified elsewhere within the brain. Mild paranasal sinus mucosal thickening. 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 Previously measuring 1.6 x 1.0 cm. Otherwise mild chronic small vessel disease and Central involutional changes without evidence acute intracranial process by MRI.. Impression dictated by: Leo Cummings M.D.09/25/2024 7:59 PM Dictation Location: [place] [address] Electronically authenticated by: [id number] Date: 09/25/2024 19:59
[2024-09-25 09:52] LABS: Albumin Level 3.6 g/dL (3.4-5.0); Anion Gap 9.4; BUN Creatinine Ratio 11.5; Calcium 8.9 mg/dL (8.5-10.1); Carbon Dioxide 30.8 mmol/L (21.0-32.0); Chloride 103 mmol/L (98-107); Estimated GFR (African America >60 (>=60 mL/min/1.73m^2); Estimated GFR (Non-African Ame 52 (>=60 mL/min/1.73m^2); Glucose 151 mg/dL (74-106); Phosphorus 2.8 mg/dL (2.6-4.7); Potassium 4.2 mmol/L (3.5-5.1); Sodium 139 mmol/L (136-145)
== END 2024-09-25 09:28 | disposition home or self-care (01) ==
LOC: LAB 09:27
PROVIDERS: PCP Family Medicine; Visit Provider Otolaryngology
DX: Z01.812 Encounter for preprocedural laboratory examination (principal); H90.41 Sensorineural hearing loss, unilateral, right ear, with unrestricted hearing on the contralateral side; D33.3 Benign neoplasm of cranial nerves; R42 Dizziness and giddiness
CPT/HCPCS: 36415; 70553; 80069; A9575

== ENCOUNTER 2024-12-09 10:10 | Outpatient (OUT) | payer MEDICARE, OTHER, SELFPAY ==
[2024-12-09 11:58] LABS: Chol HDL Ratio 3.7; Cholesterol 185 mg/dL (<=200); HDL Cholesterol 50 mg/dL (40-60); Triglycerides 160 mg/dL (<=150)
== END 2024-12-09 10:11 | disposition home or self-care (01) ==
LOC: LAB 10:12
PROVIDERS: PCP Family Medicine; Visit Provider Internal Medicine Cardiovascular Disease
DX: I25.10 Atherosclerotic heart disease of native coronary artery without angina pectoris (principal)
CPT/HCPCS: 36415; 80061

== ENCOUNTER 2024-12-31 21:35 | Emergency (ER) | payer MEDICARE, OTHER, SELFPAY ==
--- OUTSIDE RECORDS SUMMARY | 2024-08-22 12:30 | XMS_ITS ---
Author Organization [facility] in [place] Address [address] [place] [address] Care Team Providers Care Bitumen Plant Operator Name Role Phone Ruben David Primary Care Provider REASON FOR VISIT refill Medications Medication SIG (Take, Route, Frequency, Duration) Notes Start Date End Date Status Coreg 6.25 MG 1 tablet with food O rally tid for 30 days 08/31/2023 Active Encounters Encounter Location Date Provider Diagnosis [facility] [address] [place] [address] 08/22/2024 Ruben David Hypertension I10 Assessments Encounter Date Diagnosis (ICD Code) Assessment Notes Treatment Notes Treatment Clinical Notes Section Notes 08/22/2024 Hypertension (ICD-10 - I10) Plan Of Treatment Medication Medication Name Sig Start Date Stop Date Notes Coreg 6.25 MG 1 tablet with food Orally tid for 30 days Progress Notes * Travis COBURN GDOB: [birth year] (83 yo M)Acc No.[id number]:08/22/2024 Patient: Travis SHEIKH :1940 A ge:83 Y S ex:Male Address:[place], [address] * Refills Refill Coreg Tablet, 6.25 MG, Orally, 90 Tablet, 1 tablet with food, tid, 30 days, Refills=11 * true * Date: Generated for Printi ana/Faabig/eTransmitting on: 0 12/31/2024 09:42 PM EDT
--- OUTSIDE RECORDS SUMMARY | 2024-10-04 05:45 | XMS_ITS ---
Author Organization [facility] in [place] Address [address] [place] [address] Care Team Providers Care Slide Attendant Name Role Phone Ruben David Primary Care Provider [phone] Allergies Allergen (clinical drug ingredient) Drug/Non Drug Allergy documented on EMR Reaction Allergy Type Onset Date Status Substance with sulfonamide structure and antibacterial mechanism of action (substance) Sulfa Antibiotics unknown Drug Allergy Active Penicillin anaphylaxis Drug Allergy Acti ve Results Component Value Reference Range Notes UA DIP NONAUTO WO MICRO (810 02) - IN OFFICE Reviewed date:12/09/2024 09:17:26 PM Interpretation: Performing Lab: Notes/Report: COLOR yellow CLARITY clear GLUCOSE neg BILIRUBIN neg KETONE neg SPECIFIC GRAVITY 1.025 BLOOD trace PH 5 PROTEIN protein UROBILINOGEN neg NITRITE neg LEUKOCYTE ESTERASE neg REASON FOR VISIT Presents to office alone for c/o burning with urination, pain in testicles at time, frequency during the day. Urine darker in color. x2 days Medications Medication SIG (Take, Route, Frequency, Duration) Notes Start Date End Date Status predniSONE 2.5 MG 1 tablet with food o r milk Orally Once a day Active Doxycycline Monohydrate 100 MG 1 capsule Orally bid for 10 days 10/04/2024 Active Methotrexate Sodium 2.5 MG as directed O rally 3 once weekly Active MiraLax 17 GM/SCOOP 1 scoop mixed with 8 ounces of fluid Orally Once a day- twice as needed Active Montelukast Sodium 10 MG TAKE 1 TABLET B Y MOUTH EVERY DAY FOR 30 DAYS for 30 Active Glucose Meter Test - Use as directed onc e daily for 90 days Dx E11.9 Active Ibuprofen 600 MG TAKE 1 TABLET BY KIET TH EVERY 6 HOURS NEEDED FOR MODERATE PAIN FOR 10 DAYS Oral for 10 days Active Irbesartan 300 MG TAKE 1 TABLET BY KIET TH EVERY DAY for 30 Active Glimepiride 1 MG 2 in am and 1 in afternoon bid for 30 days Active Glucometer - (One-Touch Delica Plus) & Lancet Device - tid Active CPAP - use as directed Acti ve CPAP Supplies -- Mask and Tubing Active Crestor 5 MG 1 tablet Orally Once a day Active Folic Acid 1 MG 1 tablet Orally Once a day Active Coreg 6.25 MG 1 tablet with food Orally tid for 30 days 08/31/2023 Active Amitriptyline HCl 50 mg TAKE 1 TO 2 TABL ETS BY MOUTH EVERY NIGHT for 90 Active Aspirin 81 MG 1 tablet Orally Once a day Active Cetirizine HCl 10 MG TAKE 1 TABLET BY MO UTH EVERY DAY for 30 Active Cholecalciferol 125 MCG (5000 UT) as directed Orally Active Clindamycin Phosphate 1 % 1 application Externally bid 05/30/2024 Active Protonix 40 MG 1 tablet Orally Once a day for 90 days Active TrueTrack Test Strips Active Ultra Thin Lancets Use as directed once daily for 90 days Dx E11.9 Active Social History Tobacco Use: Social History Observation Description Date Details (start date - stop date) Former Smoker NA - NA Tobacco Use/Smoking Question Answer Notes Patient is a former smoker AUDIT-C (Standard) Question Answer Notes Did you have a drink containing alcohol in the p ast year? No Points 0 Interpretation Negative Problems Problem Type SNOMED Code ICD Code Onset Dates Problem Status W/U Status Risk Notes Problem Atopic dermatitis (L20.9) Active confirmed Vital Signs Weight 243 lbs 10/04/2024 Height 69 in 10/04/2024 Blood pressure systolic 156 mm Hg 10/05/19 25 Blood pressure diastolic 86 mm Hg 025 BMI 35.88 kg/m2 10/04/2024 Encounters Encounter Location Date Provider Diagnosis [facility] [address] [place] [address] 10/04/2024 Ruben Hoy Dysuria R30.0 ; Atop ic dermatitis L20.9 and Acute UTI N39.0 Assessments Encounter Date Diagnosis (ICD Code) Assessment Notes Treatment Notes Treatment Clinical Notes Section Notes 10/04/2024 Dysuria (ICD-10 - R30.0) 10/04/2024 Atopic dermatitis (ICD-10 - L20.9) 10/04/2024 Acute UTI (ICD-10 - N39.0) Plan Of Treatment Medication Medication Name Sig Start Date Stop Date Notes Doxycycline Monohydrate 100 MG 1 capsule Orally bid for 10 days 10/04/2024 Progress Notes * Travis COBURN GDOB: [birth year] (83 yo M)Acc No.[id number]:10/04/2024 Progress Note Patient: Travis SHEIKH Provider: Ralf David ([facility])MD :1940 A ge:83 Y S ex:Male Date:10/04/2024 Address:[address] [place] [address] , [place], [id number] Check In:09:31 AM ESTCheck O ut:10:09 AM EST Subjective: * Chief Complaints: * P resents to office alone for c/o burning with urination, pain in testicles at time, frequency during the day. Urine darker in color. x2 days * HPI: G eneral: utisymptoms - gettign worse - darker urine also discused scap rash - using multiple creams with limited success disucssed bowel -not bad during the day. * ROS: E ENT: hearing changes d enies. v isual changes d enies.?non-healing mouth sores d enies. s wollen glands or neck lumps d enies. h oarseness d enies. s ore throat d enies. d ifficulty swallowing d enies. n ose bleeds d enies. n ada congestion d enies. e ar ache d enies. e ar discharge?denies. r inging in ears d enies. l ight sensitivity d enies. e ye pain d enies. b lurring d enies. e ye irritation d enies. d ouble vision d enies.?vision loss d enies. G eneral/Constitutional: Sweats: D enies. F atigue d enies. S leep problems d enies. A norexia d enies. M alaise d enies. W eight loss d enies.?Fatigue or Weakness d enies. F ever or Chills d enies. C ardiovascular: Shortness of Breath w/lying flat d enies. L ightheadedness/dizziness d enies. C hest tightness/ heavy pressure d enies. S welling of legs, ankles, or feet d enies. W aking up with shortness of breath d enies. C hest pain denies. P alpitations d enies. W eight gain d enies. R espiratory: Chronic or frequent cough d enies. C oughing up blood?denies. D ifficulty breathing d enies. P roductive cough d enies. S noring?denies. S hortness of breath that awakens from sleep (PND) d enies. C hest pain d enies. S putum production d enies. W heezing d enies. M usculoskeletal: Joint pain d enies. J oint Fluid d enies. B ack pain d enies. K nee pain d enies. N von pain d enies. J oint Stiffness d enies. M uscle cramps d enies. W eakness of muscles d enies. A rthritis d enies. M uscle aches d enies. P ain in shoulder(s) d enies. S wollen joints d enies. * Active Problem List B96.81 Helicobacter pylori [H. 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, unspe cified eye Modified On:10/20/2022 Status:confirmed K58.0 Irritable bowel synd tino with diarrhea Modified On:04/13/2023W/U Status:confirmed M35.3 Polymyalgia rheumati ca Modified On:04/05/2023U Status:confirmed R00.2 Palpitations Modified On:10/20/2022 Status:confirmed I10 Hypertension Modified On:10/02/2023U Status:confirmed F41.9 Anxiety Modified On:10/20/2022U Status:confirmed G47.30 Sleep apnea Modified On:08/31/2023U Status:confirmed M17.9 Osteoarthritis of kn ee Modified On:10/20/2022U Status:confirmed K44.9 Hiatal hernia Modified On:10/20/2022U Status:confirmed L40.50 Psoriatic arthritis Modified On:11/22/2022U Status:confirmed E55.9 Vitamin D deficiency Modified On:10/20/2022 Status:confirmed E78.1 Hypertriglyceridemia Modified On:10/20/2022U Status:confirmed K52.9 Colitis Modified On:10/20/2022U Status:confirmed J20.9 Acute bronchitis Modified On:07/13/2023U Status:confirmed E79.0 Hyperuricemia Modified On:10/20/2022U Status:confirmed K58.9 Irritable bowel synd tino Modified On:04/25/2023 Status:confirmed E11.9 Diabetes mellitus ty pe 2, uncomplicated Modified On:08/31/2023U Status:confirmed I49.8 Sinus arrhythmia Modified On:10/20/2022U Status:confirmed H43.819 Vitreous degeneratio n Modified On:10/20/2022U Status:confirmed M72.0 Dupuytren's disease Modified On:10/20/2022U Status:confirmed 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 Modified On:10/20/2022U Status:confirmed E11.9 Diabetes mellitus ty pe 2, diet-controlled Modified On:10/20/2022U Status:confirmed G56.03 Carpal tunnel syndro me, bilateral upper limbs Modified On:10/20/2022U Status:confirmed 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 Modified On:10/20/2022U Status:confirmed U07.1 COVID-19 virus infec tion Modified On:10/20/2022U Status:confirmed D51.8 Other vitamin B12 de ficiency anemia Modified On:11/22/2022U Status:confirmed S32.018B Other fracture of fi rst lumbar vertebra, initial encounter for open fracture Modified On:04/25/2023U Status:confirmed E11.9 DM2 (diabetes [facility], type 2) Modified On:04/05/2023U Status:confirmed N17.9 Acute kidney failure Modified On:06/14/2023U Status:confirmed C44.712 Basal cell carcinoma of right lower leg Modified On:08/30/2023U Status:confirmed H65.90 Serous otitis media Modified On:10/20/2023 Status:confirmed R26.81 Unsteady gait Modified On:10/12/2023 Status:confirmed H90.3 Sensorineural hearin g loss, bilateral Modified On:12/28/2023U Status:confirmed 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 Peters * Hospitalization/Major Diagno stic Procedure: c ompression fracture L1 03/01 * Family History: F ather: , Heart Disease. M other: , Alzheimers. S ister(s): alive, Scleroderma. S on(s): alive. D aughter(s): alive. 3 sister(s) . 1 son(s) , 1 daughter(s) - healthy. . Sisters- 2 . * Social History: T obacco Use: T obacco Use/Smoking P atient is a f ormer smoker D rug/Alcohol: A CATHERINE-C (Standard) D id you have a drink containing alcohol in the past year? N o P oints 0 I nterpretation N egative * Medications: T akingAmitriptyline HCl 50 mg Tablet TAKE 1 TO 2 TABLETS BY MOUTH EVERY NIGHT Aspirin 81 MG Tablet Delayed Release 1 tablet Orally Once a day Cetirizine HCl 10 MG Tablet TAKE 1 TABLET BY MOUTH EVERY DAY Cholecalciferol 125 MCG (5000 UT) Capsule as directed Orally Clindamycin Phosphate 1 % Gel 1 application Externally bid Coreg(Carvedilol) 6.25 MG Tablet 1 tablet with food Orally tid CPAP - use as directed CPAP Supplies -- -- Mask and Tubing Crestor(Rosuvastatin Calcium) 5 MG Tablet 1 tablet Orally Once a day Folic Acid 1 MG Tablet 1 tablet Orally Once a day Glimepiride 1 MG Tablet 2 in am and 1 in afternoon bid Glucometer - - (One-Touch Delica Plus) & Lancet Device - tid Glucose Meter Test(Glucose Blood) - Strip Use as directed once daily , Notes to Pharmacist: Shanthi E11.9Ibuprofen 600 MG Tablet TAKE 1 TABLET BY MOUTH EVERY 6 HOURS NEEDED FOR MODERATE PAIN FOR 10 DAYS Oral Irbesartan 300 MG Tablet TAKE 1 TABLET BY MOUTH EVERY DAY Methotrexate Sodium 2.5 MG Tablet as directed Orally 3 once weekly MiraLax(Polyethylene Glycol 3350) 17 GM/SCOOP Powder 1 scoop mixed with 8 ounces of fluid Orally Once a day- twice as needed Montelukast Sodium 10 MG Tablet TAKE 1 TABLET BY MOUTH EVERY DAY FOR 30 DAYS predniSONE 2.5 MG Tablet 1 tablet with food or milk Orally Once a day Protonix(Pantoprazole Sodium) 40 MG Tablet Delayed Release 1 tablet Orally Once a day TrueTrack Test Strips Ultra Thin Lancets Use as directed once daily , Notes to Pharmacist: Dx E11.9Taking Amitriptyline HCl 50 mg Tablet TAKE 1 TO 2 TABLETS BY MOUTH EVERY NIGHT Taking Aspirin 81 MG Tablet Delayed Release 1 tablet Orally Once a day Taking Cetirizine HCl 10 MG Tablet TAKE 1 TABLET BY MOUTH EVERY DAY Taking Cholecalciferol 125 MCG (5000 UT) Capsule as directed Orally Taking Clindamycin Phosphate 1 % Gel 1 application Externally bid Taking Coreg(Carvedilol) 6.25 MG Tablet 1 tablet with food Orally tid Taking CPAP - use as directed Taking CPAP Supplies -- -- Mask and Tubing Taking Crestor(Rosuvastatin Calcium) 5 MG Tablet 1 tablet Orally Once a day Taking Folic Acid 1 MG Tablet 1 tablet Orally Once a day Taking Glimepiride 1 MG Tablet 2 in am and 1 in afternoon bid Taking Glucometer - - (One-Touch Delica Plus) & Lancet Device - tid Taking Glucose Meter Test(Glucose Blood) - Strip Use as directed once daily , Notes to Pharmacist: Dx E11.9Taking Ibuprofen 600 MG Tablet TAKE 1 TABLET BY MOUTH EVERY 6 HOURS NEEDED FOR MODERATE PAIN FOR 10 DAYS Oral Taking Irbesartan 300 MG Tablet TAKE 1 TABLET BY MOUTH EVERY DAY Taking Methotrexate Sodium 2.5 MG Tablet as directed Orally 3 once weekly Taking MiraLax(Polyethylene Glycol 3350) 17 GM/SCOOP Powder 1 scoop mixed with 8 ounces of fluid Orally Once a day- twice as needed Taking Montelukast Sodium 10 MG Tablet TAKE 1 TABLET BY MOUTH EVERY DAY FOR 30 DAYS Taking predniSONE 2.5 MG Tablet 1 tablet with food or milk Orally Once a day Taking Protonix(Pantoprazole Sodium) 40 MG Tablet Delayed Release 1 tablet Orally Once a day Taking TrueTrack Test Strips Taking Ultra Thin Lancets Use as directed once daily , Notes to Pharmacist: Dx E11.9DiscontinuedCiprofloxacin HCl 500 MG Tablet 1 tablet Orally every 12 hrs Ondansetron 4 MG Tablet Disintegrating 1 tablet on the tongue and allow to dissolve Orally Q 6 hours PRN oxyCODONE-Acetaminophen 5-325 MG Tablet 1 tablet as needed Orally every 6 hrs Pyridium(Phenazopyridine HCl) 200 MG Tablet 1 tablet after meals Orally Three times a day tiZANidine HCl 4 MG Tablet 2 tablet as needed Orally at bedtime Medication List reviewed and reconciled with the patientDiscontinued Ciprofloxacin HCl 500 MG Tablet 1 tablet Orally every 12 hrs Discontinued Ondansetron 4 MG Tablet Disintegrating 1 tablet on the tongue and allow to dissolve Orally Q 6 hours PRN Discontinued oxyCODONE-Acetaminophen 5-325 MG Tablet 1 tablet as needed Orally every 6 hrs Discontinued Pyridium(Phenazopyridine HCl) 200 MG Tablet 1 tablet after meals Orally Three times a day Discontinued tiZANidine HCl 4 MG Tablet 2 tablet as needed Orally at bedtime Medication List reviewed and reconciled with the patient * Allergies: P enicillin: anaphylaxis - Criticality HighSulfa Antibiotics: unknown - Criticality Highno[Allergies Verified] Objective: * Vitals: W t:243lbs, Ht: 69 in, BP:156/86mm Hg, BMI:35.88Index, Ht-cm: 175.26 cm, Wt-k.22 kg. * Examination: P hysical Exam: GENERAL: w ell developed, well nourished, in no acute distress. HEAD: n ormocephalic/atraumatic. EYES: p upils equal, round and reactive to light, conjunctivae and sclerae normal. EARS: n o deformity or lesion of external ear, canals and TM appear normal bilaterally, TM's intact, not inflamed with normal light reflex, hearing grossly normal to conversational speech. NOSE: n o deformity, discharge, inflammation, or lesions.? MOUTH: m ucous membranes moist, normal oropharynx and posterior pharynx without lesions or exudates, tongue normal, dentition normal. NECK: n von supple, no masses or palpable cervical nodes, trachea midline, thyroid without nodules, masses, tenderness, or enlargement. CHEST: n o chest wall deformity, no chest wall tenderness.? LUNGS: n ormal respiratory effort and clear to auscultation, no wheezes, rales, or rhonchi, good air exchange. CARDIO: r egular rate and rhythm, normal S1 and S2, nor murmur, rub, or gallop. PULSES: n ormal capillary refill. ABDOMEN: s oft, non-distended, non-tender, no masses. MUSCULOSKELETAL: n o deformity or scoliosis noted, normal range of motion, joints normal, no erythema, edema, effusion, or ecchymosis. EXTREMITY: n o clubbing, cyanosis, edema, or deformity with normal ROM in both upper and lower bilateral extremities. NEUROLOGIC: g rossly normal. SKIN: n o rashes, ulcerations, or suspicious lesions. LYMPH NODES: n o cervical adenopathy, nodes normal. MENTAL STATUS: a lert and oriented x3, normal mood and affect. Assessment: * Assessment: 1. D ysuria - R30.0 (Primary) 2 . A topic dermatitis - L20.9 ?3. A cute UTI - N39.0 Plan: * Treatment: * Labs: * L ab: UA DIP NONAUTO WO MICRO (57852) - IN OFFICE (Collection Date & Time - 10/04/2024) Value Reference Range C OLOR yellow * C LARITY clear * G LUCOSE neg * B ILIRUBIN neg * K ETONE neg * S PECIFIC GRAVITY 1.025 * B LOOD trace * P H 5 * P ROTEIN protein * U ROBILINOGEN neg * N ITRITE neg * L EUKOCYTE ESTERASE neg * Procedure Codes: 8 1002 URINALYSIS WO MICRO * Preventive Medicine: Screenings/Counseling: B [place] ACTION PLAN Above Normal BMI Follow-up D ietary management education, guidance, and counseling See treatment section of progress note for complete details of management plan. F ALL RISK SCREENING Fall Risk Assessment: N o falls in the past year * * Sign off status: Completed Visit Status: C HK (Check Out) true * Provider: Ralf David ([facility])MD Date: 0 10/04/2024 Generated for Printi ng/Faxing/eTransmitting on: 0 12/31/2024 09:41 PM EDT History and Physical Notes * HPI (History of Present Illness) Category Sub-Category Detail Notes Category Not es General utisymptoms - gettign worse - darker urine also discused scap rash - using multiple creams with limited success disucssed bowel -not bad during the day Examination Category Sub-Category Detail Notes Category Not es Physical Exam GENERAL: well developed, well nourished, in no acute distress HEAD: normocephalic/atraum atic EYES: pupils equal, round and reactive to light, conjunctivae and sclerae normal EARS: no deformity or lesi on of external ear, canals and TM appear normal bilaterally, TM's intact, not inflamed with normal light reflex, hearing grossly normal to conversational speech NOSE: no deformity, discha rge, inflammation, or lesions MOUTH: mucous membranes shanel st, normal oropharynx and posterior pharynx without lesions or exudates, tongue normal, dentition normal NECK: neck supple, no mass es or palpable cervical nodes, trachea midline, thyroid without nodules, masses, tenderness, or enlargement CHEST: no chest wall deform ity, no chest wall tenderness LUNGS: normal respiratory e ffort and clear to auscultation, no wheezes, rales, or rhonchi, good air exchange CARDIO: regular rate and rhy thm, normal S1 and S2, nor murmur, rub, or gallop PULSES: normal capillary ref ill ABDOMEN: soft, non-distended, non-tender, no masses RECTAL: MUSCULOSKELETAL: no deformity or scol iosis noted, normal range of motion, joints normal, no erythema, edema, effusion, or ecchymosis EXTREMITY: no clubbing, cyanosi s, edema, or deformity with normal ROM in both upper and lower bilateral extremities NEUROLOGIC: grossly normal SKIN: no rashes, ulceratio ns, or suspicious lesions LYMPH NODES: no cervical adenopat hy, nodes normal MENTAL STATUS: alert and oriented x 3, normal mood and affect
[2024-12-31] VITALS (16 sets, daily range): BP systolic 116–134; BP diastolic 64–71; PULSE 60–81; TEMP 36.7; O2SAT 95–98; BMI 35.4
--- OUTSIDE RECORDS SUMMARY | 2024-12-31 21:41 | XMS_ITS | Encounter Summary ---
Author Organization [facility] Address [address] [place] [address] Care Team Providers Care Metal Pattern Maker Name Role Phone Roman David MD Primary Care Provider [phone] Encounter Details Date Type Department Care Team (Late st Contact Info) Description 04/29/2024 Orders Only [facility] [address] [place] [id number] Christin Galvan [address] [place] [address] Acoustic neuroma (HCC) Social History Tobacco Use Types Packs/Day Years Used Date Smoking Tobacco: Former Cigarettes Passive Smoke Exposure: Never Smokeless Tobacco: Never Alcohol Use Standard Drinks/Week Comments Never 0 (1 standard drink = 0.6 oz pur e alcohol) caffeine 1-2 cups/day Sex and Gender Information Value Date Recorded Sex Assigned at Not on file Legal Sex Male 6:46 PM EDT Gender Identity Not on file Sexual Orientation Not on file documented as of this encounter Plan of Treatment Upcoming Encounters Date Type Department Care Team (Late st Contact Info) Description 06/25/2025 11:00 AM EST Office Visit [facility] [address] [place] [id number] Tariq Perez DO [address] [place] [address] 07/23/2025 1:00 PM EST Office Visit [facility] [address] [place] [address] Yudy Montes MD [address] [place] [address] documented as of this encounter Visit Diagnoses Diagnosis 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
--- OUTSIDE RECORDS SUMMARY | 2024-12-31 21:41 | XMS_ITS | Patient Health Record ---
Author Organization [facility] Address [address] [place] [address] Support Name Relationship Address Phone Travis Coburn Guarantor Unknown [phone] Reason For Referral No Information Problems Problem Type SNOMED Code ICD Code Onset Dates Problem Status W/U Status Risk Notes Problem Type II diabetes mellitus without complication (859385299) Diabetes (E11.9) Active confirmed Problem Compression fracture of L1 vertebra, initial encounter (S32.010A) Active confirmed Problem Mechanical low back pain (719362217) Mechanical low back pain (M54.59) Active confirmed Plan Of Treatment No Information Insurance Providers Payer Name Payer Address Payer Phone Subscriber Number Group Number Insured Name Patient Relationship to Insured Coverage Start Date [place] [address] [place] [address] [id number] Travis Coburn Self - patient is the insured
--- OUTSIDE RECORDS SUMMARY | 2024-12-31 21:41 | XMS_ITS | Encounter Summary ---
Author Organization [facility] Address [address] [place] [address] Phone Care Team Providers Care Rfid Manager Name Role Phone Roman David MD Primary Care Provider [phone] Encounter Details Date Type Department Care Team (Late Contact Info) Description 12/20/2024 Telephone [facility] [address] [facility] [address] [place] [address] Genna Solis RN Social History Tobacco Use Types Packs/Day Years Used Date Smoking Tobacco: Former Cigarettes Passive Smoke Exposure: Never Smokeless Tobacco: Never Alcohol Use Standard Drinks/Week Comments Never 0 (1 standard drink = 0.6 oz pur e alcohol) PHQ-2 Answer Date Recorded Patient Health Questionnaire-2 Score 0 02/06/2024 Sex and Gender Information Value Date Recorded Sex Assigned at Not on file Legal Sex Male 3:28 PM EST Gender Identity Not on file Sexual Orientation Not on file COVID-19 Exposure Response Date Recorded In the last 10 days, have yo u been in contact with someone who was confirmed or suspected to have Coronavirus/COVID-19? No / Unsure 11/29/2024 10:11 AM EDT documented as of this encounter Miscellaneous Notes * Telephone Encounter - Genna Solis RN - 12/20/2024 10:56 AM EDT Pt phones requesting results of lipid panel drawn at [facility] a few weeks ago. Will request results to Dr. Ly Villanueva MD upon receiving documented in this encounter Plan of Treatment Upcoming Encounters Date Type Department Care Team (Late Contact Info) Description 09/02/2025 1:30 PM EST Office Visit [facility] [address] [facility] [address] [place] [phone] Ly Villanueva MD [address] [facility] [address] [place] [address] documented as of this encounter Visit Diagnoses Not on filedocumented in this encounter Additional Health Concerns Assessment Noted Time A fall risk assessment has been complete d for the patient 11/29/2024 10:25 AM EDT documented as of this encounter Care Teams Rfid Manager Relationship Specialty Start Date End Date Roman David MD [address] [facility] [place] [address] PCP - General 12/08/21 documented as of this encounter
--- OUTSIDE RECORDS SUMMARY | 2024-12-31 21:41 | XMS_ITS | Encounter Summary ---
Author Organization [facility] Address [address] [place] [address] Phone Care Team Providers Care Drupal Architect Name Role Phone Roman David MD Primary Care Provider [phone] Encounter Details Date Type Department Care Team (Late st Contact Info) Description 08/05/2024 Scanned Document [facility] [address] [place] [id number] Scanning, Generic Provider Social History Tobacco Use Types Packs/Day Years [...] suspected to have Coronavirus/COVID-19? No / Unsure 08/06/2024 11:21 AM EST documented as of this encounter Plan of Treatment Upcoming Encounters Date Type Department Care Team (Late st Contact Info) Description 09/02/2025 1:30 PM EST Office Visit [place] [id number] [facility] [address] [place] [address] Ly Villanueva MD [address] [facility] [address] [place] [address] documented as of this encounter Visit Diagnoses Not on filedocumented in this encounter Additional Health Concerns Assessment Noted Time A fall risk assessment has been complete d for the patient 07/23/2024 9:39 AM EST documented as of this encounter Care Teams Drupal Architect Relationship Specialty Start Date End Date Roman David MD [address] [place] [address] PCP - General 12/08/21 documented as of this encounter
--- OUTSIDE RECORDS SUMMARY | 2024-12-31 21:41 | XMS_ITS | Clinical Summary ---
Author Organization [facility] Address [address] [place] [address] Phone Care Team Providers Care Engraving Plate Maker Name Role Phone Roman David MD Primary Care Provider [phone] Allergies Active Allergy Reactions Criticality Noted Date Comments Bee Pollen Unknown Low 08/24/2023 Cat Dander Unknown Low 08/24/2023 Fluorouracil Rash Low 07/23/2024 Penicillins Anaphylaxis High 05/21/2022 Other reaction(s): Unknown Medications aspirin 81 mg chewable tablet Chew 1 tablet (81 mg) 2 times a week. Active amitriptyline (Elavil) 25 mg tablet Take 1 tablet (25 mg) by mouth once daily at bedtime. Active folic acid (Folvite) 1 mg tablet Take 1 tablet (1 mg) by mouth once daily. 08/25/19 23 Active 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 (Trexall) 2.5 mg tablet Take 4 tablets (10 mg total) by mouth 1 (one) time per week. 11/22/19 23 Active pantoprazole (ProtoNix) 40 mg EC tablet Take 1 tablet (40 mg) by mouth once daily in the morning. Take before meals. Active predniSONE (Deltasone) 2.5 mg tablet Take 1 tablet (2.5 mg) by mouth once daily. 08/17/19 24 Active cyanocobalamin (Vitamin B-12) 1,000 mcg tablet Take 1 tablet (1,000 mcg) by mouth once daily. Active irbesartan (Avapro) 300 mg tablet Take 1 tablet (300 mg) by mouth once daily at bedtime. Active carvedilol (Coreg) 6.25 mg tablet Take 1 tablet (6.25 mg) by mouth 2 times daily (morning and late afternoon). Active cetirizine (ZyrTEC) 10 mg tablet Take 1 tablet (10 mg) by mouth once daily. Active hydrocortisone 2.5 % cream Apply topically 2 times a day as needed. 07/11/19 25 Active glimepiride (Amaryl) 2 mg tablet Take 1 tablet (2 mg) by mouth see administration instructions. 2mg in am 1 mg hs 02/29/20 23 Active magnesium oxide-Mg AA chelate (Magnesium, oxide/AA chelate,) 300 mg capsule Take 1 capsule (300 mg) by mouth 2 times a day. Active fluticasone (Flonase) 50 mcg/actuation nasal spray Administer 1 spray into each nostril once daily. Shake gently. Before first use, prime pump. After use, clean tip and replace cap. Active montelukast (Singulair) 10 mg tablet Take 1 tablet (10 mg) by mouth once daily at bedtime. Active rosuvastatin (Crestor) 10 mg tabletIndications :Mixed hyperlipidemia Take 1 tablet (10 mg) by mouth once daily. 90 tablet 3 12/24/19 25 026 Active rosuvastatin (Crestor) 5 mg tablet Take 1 tablet (5 mg) by mouth 2 times a week. 025 Disconti nued(Dos e adjustme nt) Active Problems Problem Noted Date Diagnosed Date BMI 35.0-35.9,adult 08/20/2024 Assessment & Plan (08/20/2024 3:46 PM EST): Reviewed the merits of healthy lifestyle choices on overall cardiovascular health. 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 EF 57% Assessment & Plan (07/23/2024 1:25 PM EST): September 2017 cardiac cath RCA 50% No left system disease LVEF 45-50% December 2021 MPI no ischemia, no infarct. LVEF 53%. Dizziness 08/24/2023 Fatigue 08/24/2023 Assessment & Plan (07/23/2024 1:27 PM EST): Presents today as an add-on for progressive worsening fatigability and change in exercise capacity and functional tolerance Hyperlipidemia 08/24/2023 Assessment & Plan (08/20/2024 3:46 PM EST): Low intensity statin On highest tolerated dose Assessment & Plan (07/23/2024 1:26 PM EST): Low intensity statin On highest tolerated dose Short of breath on exertion 08/24/2023 Assessment & Plan (08/20/2024 3:39 PM EST): Jul 2024: add-on due to concerns of progressive worsening dyspnea on exertion. Favorable cardiac testing including MPI, TTE and holter. Assessment & Plan (07/23/2024 1:26 PM EST): Presents today as an add-on due to concerns of progressive worsening dyspnea on exertion Sleep apnea 08/16/2023 Assessment & Plan (07/23/2024 1:27 PM EST): Remains compliant with CPAP Polymyalgia rheumatica (Multi) 05/21/2022 Resolved Problems Problem Noted Date Diagnosed Date Resolved Date Cardiomyopathy 07/23/2024 11/29/2024 Assessment & Plan (08/20/2024 3:45 PM EST): September 2017 LVEF 45 to 50% TTE September 2017 LVEF 45-50% cardiac cath December 2021 LVEF 53% MPI 2024 TTE LVEF 50-55% No WMA AV p7:m4 Assessment & Plan (07/23/2024 1:27 PM EST): September 2017 LVEF 45 to 50% TTE September 2017 LVEF 45-50% cardiac cath December 2021 LVEF 53% MPI Angina pectoris 08/24/2023 07/23/2024 Short of breath on exertion 08/24/2023 07/23/2024 Bradycardia 08/24/2023 11/29/2024 Encounters Date Type Department Care Team Description 12/23/[address] [address] Krista Ryan LPN Mixed hyperlipidemia 12/20/[address] [address] Genna Solis RN 12/09/2024 Scanned Document [facility] [address] [place] [address] Scanning, Generic Provider 11/29/2024 10:20 AM EDT Office Visit [address] [address] Ly Villanueva MD Coronary artery disease involving kalispel coronary artery of kalispel heart without angina pectoris (Primary Dx); Bradycardia; BMI 35.0-35.9,adult; Former cigarette smoker; Short of breath on exertion; Mixed hyperlipidemia; Cardiomyopathy, unspecified type (Multi); Benign essential hypertension; Obstructive sleep apnea syndrome 11/29/2024 Travel 10/16/2024 7:26 PM EDT - 10/16/2024 11:59 PM EDT Hospital Encounter [facility] [address] [place] [address] Discharge Disposition: Home 10/15/2024 Telephone [facility] [address] [facility] [address] [place] [address] Sherry Mccann, MANUELITO from Last 3 Months Immunizations Immunization Administration Dates Next Due Flu vaccine, trivalent, pres ervative free, HIGH-DOSE, age 65y+ (Fluzone) 04/23/2020 Influenza, Seasonal, Quadriv alent, Adjuvanted 07/26/2022 Influenza, Unspecified 04/22/2015,05/22/2014 Influenza, seasonal, injectable 04/18/2024,04/17,05/12/2021 Influenza, trivalent, adjuvanted 05/30/2024 Moderna COVID-19 vaccine, bi valent, blue cap/cunningham label *Check age/dose* 10/28/2020,09/29/2020 Pfizer COVID-19 vaccine, 12 years and older, (30mcg/0.3mL) (Comirnaty) 05/20/2024 Pfizer Purple Cap SARS-CoV-2 10/27/2020 Pneumococcal conjugate vacci ne, 13-valent (PREVNAR 13) 04/09/2016 Pneumococcal polysaccharide vaccine, 23-valent, age 2 years and older (PNEUMOVAX 23) 07/10/2017,07/10/2011 RSV, 60 Years And Older (AREXVY) 05/20/2024 Family History Medical History Relation Name Comments Heart failure Father Hypertension Mother Relation Name Status Comments Father Mother Social History Tobacco Use Types Packs/Day Years Used Date Smoking Tobacco: Former Cigarettes Passive Smoke Exposure: Never Smokeless Tobacco: Never Tobacco Cessation:Counseling Given: Not Answered Alcohol Use Standard Drinks/Week Comments Never 0 (1 standard drink = 0.6 oz pur e alcohol) PHQ-2 Answer Date Recorded Patient Health Questionnaire-2 Score 0 02/06/2024 Sex and Gender Information Value Date Recorded Sex Assigned at Not on file Legal Sex Male 3:28 PM EST Gender Identity Not on file Sexual Orientation Not on file Last Filed Vital Signs Vital Sign Reading Time Taken Comments Blood Pressure 135/82 11/29/2024 10:51 AM EDT Pulse 78 11/29/2024 10:25 AM EDT Temperature 36.4 C (97.6 F) 02/06/2024 1:38 PM EDT Respiratory Rate - - Oxygen Saturation - - Inhaled Oxygen Concentration - - Weight 110 kg (243 lb) 11/29/2024 10:25 AM EDT Height 175.3 cm (5' 9 ) 11/29/2024 10:25 AM EDT Body Mass Index 35.88 11/29/2024 10:25 AM EDT Plan of Treatment Upcoming Encounters Date Type Department Care Team (Late st Contact Info) Description 09/02/2025 1:30 PM EST Office Visit [facility] [address] [place] [address] Ly Villanueva MD [address] [place] [address] Health Maintenance Due Date Last Done Comments Bone Density Scan 1940 Lipid Panel 1941 Hepatitis A Vaccines (1 of 2 - Risk 2-dose series) 1960 DTaP/Tdap/Td Vaccines (1 - Tdap) 11/03/1963 Zoster Vaccines (1 of 2) 11/03/1991 Hepatitis B Vaccines (1 of 3 - Risk 3-dose series) 2001 Medicare Annual Wellness Visit (AWV) 07/27/2023 07/26/2022 COVID-19 Vaccine ( season) 2024 05/20/2024, 11/17/2021, 10/28/2020, Additional history exists Pneumococcal Vaccine Completed 05/28/2018, 07/10/2017, 04/09/2016, Additional history exists RSV High Risk: (Elderly (60+) or Population) Completed 05/20/2024 Influenza Vaccine Completed 05/30/2024, , 04/17/2024, Additional history exists HIB Vaccines Aged Out No longer eligi ble based on patient's age to complete this topic HPV Vaccines Aged Out No longer eligi ble based on patient's age to complete this topic IPV Vaccines Aged Out No longer eligi ble based on patient's age to complete this topic Meningococcal Vaccine Aged Out No elissa micheal eligible based on patient's age to complete this topic Rotavirus Vaccines Aged Out No longer eligible based on patient's age to complete this topic Procedures Procedure Name Priority Date/Time Associated Diagnosis Comments OUTSIDE LAB SCAN 12/09/2024 ECG 12-LEAD Routine 11/29/2024 10:20 AM EDT Bradycardia MR TRANSFER OF OUTSIDE FILMS Routine 10/16/2024 7:27 PM EDT from Last 3 Months Results * OUTSIDE LAB SCAN (12/09/2024) Narrative 12/09/2024 Ordered by an unspecified provider. us Generic Provider Scanning OUTSIDE SCAN Final Result * ECG 12 Lead (11/29/2024 10:20 AM EDT) Narrative CPACS - 11/29/2024 11:06 AM EDT Normal sinus rhythm with first-degree AV block us Ly Villanueva MD ECG ORDERABLES Final Resu lt Performing Organization Address [facility] Co de Phone Number CPACS * MR transfer of outside films (10/16/2024 7:27 PM EDT) Narrative IMAGING - 10/16/2024 7:28 PM EDT Outside images for comparison or treatment purposes, not interpreted by Radiologists. us Loreta Nguyen MD IMG MRI PROCEDURES Final Result Performing Organization Address City/[facility]/ZIP Co de Phone Number IMAGING from Last [address] [address] MEDICARE PART A AND B [employer] MEDICARE [place] [address] MEDICARE PART A AND B [employer] MEDICARE SUPPLEMENT Care Teams Engraving Plate Maker Relationship Specialty Start Date End Date Roman David MD [address] [facility] [place] [address] PCP - General 12/08/21
--- OUTSIDE RECORDS SUMMARY | 2024-12-31 21:41 | XMS_ITS | Clinical Summary ---
Author Organization [facility] Address [address] [place] [address] Care Team Providers Care Tea Bag Packer Name Role Phone Roman David MD Primary Care Provider [phone] Allergies Active Allergy Reactions Criticality Noted Date Comments Bee Pollen 08/24/2023 Other reaction(s): Unknown Cat Dander 08/24/2023 Other reaction(s): Unknown Fluorouracil Rash Low 07/23/2024 Latex 05/21/2022 Other reaction(s): Unknown Penciclovir Anaphylaxis High 02/22/2021 Penicillins Anaphylaxis High 05/21/2022 Other reaction(s): Unknown Sulfa (Sulfonamide Antibiotics) Unknown 08/16/2023 Medications rosuvastatin (Crestor) 5 mg tablet Take 1 tablet by mouth at bedtime. 1 Active pantoprazole (ProtoNix) 40 mg EC tablet Take 1 tablet by mouth in the morning. Active glimepiride (Amaryl) 2 mg tablet Take 2 mg by mouth in the morning. Active acetaminophen (Tylenol) 500 mg tablet Take 1 tablet twice a day by oral route as needed. Active amitriptyline (Elavil) 50 mg tablet Take 1-2 tablets by mouth at bedtime. 25 mg at night Active calcium carbonate 600 mg calcium (1,500 mg) tablet Take by mouth. 0 Active aspirin 81 mg chewable tablet 1 (one) time each day at the same time. Active Truetrack Test strip USE 1 STRIP VIA METER ONCE A DAY*E11.9* 2 Active furosemide (Lasix) 20 mg tablet Take 10 mg by mouth 1 (one) time each day at the same time. Active leucovorin (Wellcovorin) 5 mg tabletIndication s:termination clerk 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 Take one tab PO daily 90 tablet 3 3 Active Additional Information Patient not taking.Reported on 09/10/2024 leucovorin (Wellcovorin) 5 mg tabletIndication s:termination clerk 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 Take one tab PO daily 90 tablet 2 3 Active Additional Information Patient not taking.Reported on 09/10/2024 irbesartan (Avapro) 300 mg tablet Take 300 mg by mouth at bedtime. Active carvedilol (Coreg) 6.25 mg tablet every 12 (twelve) hours. 4 Active cetirizine (ZyrTEC) 10 mg tablet 1 (one) time each day at the same time. 4 Active cyanocobalamin (Vitamin B-12) 1,000 mcg tablet Take 1,000 mcg by mouth in the morning. Active montelukast (Singulair) 10 mg tablet 1 (one) time each day at the same time. 4 Active 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 2.5 mg tabletIndication s:Psoriatic arthropathy (CMS/HCC) TAKE 5 TABLETS BY MOUTH weekly 60 tablet 2 4 Active Additional Information Patient taking differently: TAKE 5 TABLETS BY MOUTH weeklyTaking 4 tablets once a week, Reported on 02/15/2024 fluorouracil (Efudex) 5 % cream Apply to directed areas on the scalp, nose, and left cheek twice a day x 14 days. Dispense 30 day supply but only use for 14 days. 4 Active OneTouch Delica Plus Lancet 33 gauge misc USE TO TEST BLOOD SUGAR ONCE DAILY 4 Active calcium carbonate-vitami n D3 600 mg-10 mcg (400 unit) capsule Take 1 capsule twice a day by oral route for 90 days. 6 Active magnesium oxide (Mag-Ox) 400 mg (241.3 mg magnesium) tabletIndication s:Stage 3a chronic kidney disease (CMS/HCC),Electr olyte disorder Take 1 tablet (400 mg) by mouth in the morning. 90 tablet 3 4 025 Active predniSONE (Deltasone) 2.5 mg tabletIndication s:Psoriatic arthropathy (CMS/HCC) TAKE 2 TABLETS BY MOUTH IN THE MORNING 180 tablet 2 4 Active folic acid (Folvite) 1 mg tabletIndication s:Psoriatic arthropathy (CMS/HCC) TAKE 1 TABLET BY MOUTH DAILY 90 tablet 2 5 Active phenazopyridine (Pyridium) 200 mg tablet TAKE 1 TABLET BY MOUTH THREE TIMES DAILY BEFORE MEALS 5 Active ciprofloxacin (Cipro) 500 mg tablet Take 1 tablet by mouth Twice daily at 6am and 6pm. 5 Active clindamycin (Cleocin) 300 mg capsule Take 1 capsule by mouth every 6 (six) hours during the day. 4 Active clindamycin 1 % gel APPLY TO THE AFFECTED AREA(S) topically TWICE DAILY 4 Active mupirocin (Bactroban) 2 % ointment Apply topically in the morning and at bedtime. 4 Active ciclopirox (Loprox) 0.77 % cream Apply thin layer to affected area once a day, 30 day supply 5 Active fluticasone (Flonase) 50 mcg/actuation nasal spray 1 spray in the morning. Active hydrocortisone 2.5 % cream Apply topically if needed in the morning and at bedtime. 5 Active metroNIDAZOLE (Metrolotion) 0.75 % lotion lotion APPLY A THIN LAYER TO FACE, ONCE DAILY FOR 30 DAYS 5 Active magnesium oxide-Mg AA chelate (Magnesium, oxide/AA chelate,) 300 mg capsule Take 300 mg by mouth twice a day. 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 Sudden idiopathic hearing lo ss of right ear with restricted hearing of left ear 12/27/2023 Arthritis of right knee 12/21/2023 Carpal tunnel syndrome 12/21/2023 Localized primary osteoarthritis of wrist 2023 Notalgia paresthetica 12/21/2023 Otitis externa in other dise ases classified elsewhere, unspecified ear 12/21/2023 Sensorineural hearing loss (SNHL) of both ears 0 12/21/2023 Superficial basal cell carcinoma 12/21/2023 Superficial mycosis, unspecified 12/21/2023 Stage 3a chronic kidney disease 10/12/2023 Excessive use of nonsteroida l anti-inflammatory drug (NSAID) 10/12/2023 Angina pectoris 08/24/2023 10/11/2023 Benign essential hypertension 08/24/2023 Bradycardia 08/24/2023 10/11/2023 Coronary artery disease 08/24/2023 10/11/19 Dizziness 08/24/2023 10/11/2023 Fatigue 08/24/2023 10/11/2023 Short of breath on exertion 08/24/202309/2023 Abnormal findings on imaging of biliary tract 08/16/2023 Anxiety 08/16/2023 08/16/2023 Benign prostatic hyperplasia without lower urinary tract symptoms 08/16/2023 08/16/2023 BMI 35.0-35.9,adult 08/16/2023 08/16/2023 Degeneration of cervical intervertebral disc 01/202408/16/2023 Diabetes mellitus 08/16/2023 08/16/2023 Epigastric pain 08/16/2023 08/16/2023 Former smoker 08/16/2023 08/16/2023 Hiatal hernia 08/16/2023 08/16/2023 History of Helicobacter pylori infection 024 08/16/2023 History of renal calculi 08/16/2023 024 HTN (hypertension) 08/16/2023 08/16/2023 Hypertriglyceridemia 08/16/2023 08/16/2023 Increased frequency of urination 08/16/2023 08/16/2023 Kidney stones 08/16/2023 08/16/2023 Loss of appetite 08/16/2023 08/16/2023 Low back pain 08/16/2023 08/16/2023 Migraine 08/16/2023 08/16/2023 Nausea and vomiting 08/16/2023 08/16/2023 Neoplasm of uncertain behavior of skin of lower extremity 08/16/2023 08/16/2023 Neuropathy 08/16/2023 08/16/2023 Nocturia 08/16/2023 08/16/2023 Prostatitis 08/16/2023 08/16/2023 Psoriasis 08/16/2023 08/16/2023 Sinus arrhythmia 08/16/2023 08/16/2023 Sleep apnea 08/16/2023 08/16/2023 Steatosis of liver 08/16/2023 08/16/2023 Urinary urgency 08/16/2023 08/16/2023 Vitamin B 12 deficiency 08/16/2023 08/16/19 Vitamin D deficiency 08/16/2023 08/16/2023 Weight loss 08/16/2023 08/16/2023 Age-related nuclear cataract of both eyes 202208/16/2023 Blepharitis of upper and lower eyelids of both e yes 01/30/2023 08/16/2023 Dry eyes 01/30/2023 08/16/2023 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 degeneration of both eyes 01/30/2023 08/16/2023 Type 2 diabetes mellitus wit hout complication, with long-term current use of insulin 01/30/2023 08/16/2023 Psoriatic arthropathy 05/27/2022 termination clerk 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 05/27/2022 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 05/21/2022 PMR (polymyalgia rheumatica) 05/21/2022 Immunizations Immunization Administration Dates Next Due Influenza, High Dose Seasona l, Preservative Free 04/23/2020 Influenza, Seasonal, Quadriv alent, Adjuvanted 07/26/2022 Influenza, Unspecified 04/23/2020,04/22/2015, Influenza, injectable, quadrivalent 04/22/2015,1 07/22/2013 Influenza, seasonal, injectable 04/18/2024,05/12 Moderna SARS-CoV-2 Vaccination 10/28/2020,2020 Pfizer SARS-CoV-2 Vaccination 11/17/2021 ,11/17/2020,10/29/2020,10/27 Pneumococcal Conjugate PCV 13 04/09/2016 Pneumococcal Polysaccharide PPV23 07/10/2017,07/2011 RSV, Adult, Recombinant 05/20/2024 Social History Tobacco Use Types Packs/Day Years Used Date Smoking Tobacco: Former Cigarettes Smokeless Tobacco: Never Tobacco Cessation:Counseling Given: Not Answered PHQ-2 Answer Date Recorded Patient Health Questionnaire-2 Score 0 09/10/2024 [place] Safety & Environment Answer Date Rec orded Fear of Current or Ex-Partner Not on file Emotionally Abused Not on file 08/31/2023 Physically Abused Not on file 08/31/2023 Sexually Abused Not on file 08/31/2023 Physically or Sexually Abused Not on file Sex and Gender Information Value Date Recorded Sex Assigned at Not on file Legal Sex Male 9:47 PM EDT Gender Identity Not on file Sexual Orientation Not on file Last Filed Vital Signs Vital Sign Reading Time Taken Comments Blood Pressure 134/83 09/10/2024 10:56 AM EST Pulse 79 09/10/2024 10:56 AM EST Temperature - - Respiratory Rate 16 04/17/2024 2:28 PM EDT Oxygen Saturation 97% 09/10/2024 10:56 AM EST Inhaled Oxygen Concentration - - Weight 116 kg (256 lb) 09/10/2024 10:56 AM EST Height 175.3 cm (5' 9 ) 09/10/2024 10:56 AM EST Body Mass Index 37.8 09/10/2024 10:56 AM EST Plan of Treatment Upcoming Encounters Date Type Department Care Team (Late st Contact Info) Description 03/18/2025 11:00 AM EDT Follow-Up [facility] Rheumat[facility] [address] [place] [address] Luis Daniel Brunner MD [address] [place] [address] Health Maintenance Due Date Last Done Comments Medicare Annual Wellness (AWV) 1940 Diabetes: Retinopathy Screening 11/03/1951 Diabetes: Urine Protein Screening 1960 Adult Tetanus 11/03/1963 Zoster Vaccines (1 of 2) 11/03/1991 COVID-19 Vaccine ( season) 2024 05/20/2024, 11/17/2021, 05/20/2021, Additional history exists Diabetes: Hemoglobin A1C 12/11/2024 09/10/2024 Depression Screening 09/10/2025 09/10/2024 Fall Risk Screening 09/10/2025 09/10/2024 Pneumococcal Vaccine: 50+ Years Completed 07/10/2017, 04/09/2016, 07/10/2011 Influenza Vaccine Completed 04/18/2024, , 05/12/2021, Additional history exists HIB Vaccines Aged Out No longer eligi ble based on patient's age to complete this topic HPV Vaccines Aged Out No longer eligi ble based on patient's age to complete this topic IPV Vaccines Aged Out No longer eligi ble based on patient's age to complete this topic Meningococcal B Vaccine Aged Out No l onger eligible based on patient's age to complete this topic Meningococcal Vaccine Aged Out No elissa micheal eligible based on patient's age to complete this topic Rotavirus Vaccines Aged Out No longer eligible based on patient's age to complete this topic Procedures Procedure Name Priority Date/Time Associated Diagnosis Comments HEMOGLOBIN A1C Routine 09/10/2024 12:38 PM EST Other specified diabetes mellitus with other specified complication, unspecified whether terminal press operator insulin use ([facility]) from Last 3 Months or Most Recently Relevant to Health Maintenance Results * (ABNORMAL) Hemoglobin A1c (09/10/2024 12:38 PM EST) Hemoglobin A1C 6.9(H) 4.0 - 6.0 % 09/10/2024 3:11 PM EST [facility] ([facility]) Estimated Average Glucose 151 mg/dL 09/10/2024 3:11 PM EST [facility] ([facility]) Blood Venous blood specimen / Unknown Venipuncture / Unknown 09/10/2024 12:38 PM EST 09/10/2024 12:45 PM EST us Luis Daniel Brunner MD LAB BLOOD ORDERABLES Final R esult [facility] ([facility]) [address] [place] [address] from Last 3 Months or Most Recently Relevant [place] [address] MEDICARE HUMAN Care Teams Tea Bag Packer Relationship Specialty Start Date End Date Roman David MD [address] [facility] [address] [place] [phone] PCP - General 08/24/22
--- OUTSIDE RECORDS SUMMARY | 2024-12-31 21:41 | XMS_ITS | Encounter Summary ---
Author Organization [facility] Address [address] [place] [address] Phone Care Team Providers Care Escalator Mechanic Name Role Phone Roman David MD Primary Care Provider [phone] Encounter Details Date Type Department Care Team (Late st Contact Info) Description 12/23/2024 Refill [facility] [address] [facility] [address] [place] [address] Krista Ryan LPN Mixed hyperlipidemia Social History Tobacco Use Types Packs/Day Years [...] encounter Miscellaneous Notes * Telephone Encounter - Krista Ryan LPN - 12/23/2024 4:11 PM EDT Phoned patient spoke with spouse orders discussed verbalized understanding. * Telephone Encounter - Krista Ryan LPN - 12/23/2024 4:10 PM EDT ----- Message from Ly Villanueva sent at 12/23/2024 9:36 AM EDT ----- Advise lipids suboptimally controlled would recommend to increase rosuvastatin to 10 mg if he able to do so ----- Message ----- From: Dana Mejia Sent: 12/23/2024 9:10 AM EDT To: Ly Villanueva MD documented in this encounter Plan of Treatment Upcoming Encounters Date Type Department Care Team (Late st Contact Info) Description 09/02/2025 1:30 PM EST Office Visit [facility] [address] [facility] [address] [place] [id number] Ly Villanueva MD [address] [facility] [address] [place] [address] documented as of this encounter Visit Diagnoses Diagnosis Mixed hyperlipidemia documented in this encounter Additional Health Concerns Assessment Noted Time A fall risk assessment has been complete d for the patient 11/29/2024 10:25 AM EDT documented as of this encounter Care Teams Escalator Mechanic Relationship Specialty Start Date End Date Roman David MD [address] [place] [address] PCP - General 12/08/21 documented as of this encounter
--- OUTSIDE RECORDS SUMMARY | 2024-12-31 21:41 | XMS_ITS | Referral Summary ---
Author Organization [facility] Address [address] [place] [address] Care Team Providers Care Paste Up Artist Name Role Phone Roman David MD Primary Care Provider [phone] Allergies Active Allergy Reactions Criticality Noted Date [...] time. 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 05/21/2022 [...] Recorded Patient Health Questionnaire-2 Score 0 09/10/2024 [place] Safety & Environment Answer Date Rec orded [...] Info) Description 03/18/2025 11:00 AM EDT [facility] [address] [address] [place] [address] Luis Daniel Brunner MD [address] [facility] [place] [address] Procedures Procedure Name Priority Date/Time Associated Diagnosis Comments HEMOGLOBIN A1C Routine 09/10/2024 12:38 PM EST Other specified diabetes mellitus with other specified complication, unspecified whether retirement insulin use ([facility]) from Last 3 Months or Most Recently Relevant to Health Maintenance Results * (ABNORMAL) Hemoglobin A1c (09/10/2024 12:38 PM EST) Hemoglobin A1C 6.9(H) 4.0 - 6.0 % 09/10/2024 3:11 PM EST [facility] ([facility]) Estimated Average Glucose 151 mg/dL 09/10/2024 3:11 PM EST [facility] ([facility]) Blood Venous blood specimen / Unknown Venipuncture / Unknown 09/10/2024 12:38 PM EST 09/10/2024 12:45 PM EST us Luis Daniel Brunner MD LAB BLOOD ORDERABLES Final R esult [facility] ([facility]) [address] [place] [address] from Last 3 Months or Most Recently Relevant to [place] [address] MEDICARE Member Subscriber Plan / Payer (Ef fective 2006-Present) Name:Travis Coburn Member ID:[id number] Relation to Subscriber:Self Name:Almas Travis Vicky Subscriber ID:[id number] Payer ID:[id number] Group ID:Not on file Type:Medicare Address: [facility] [place] [id number] [employer] Care Teams Paste Up Artist Relationship Specialty Start Date End Date Roman David MD [address] [facility] [address] [place], [place] [phone] PCP - General 08/24/22
--- OUTSIDE RECORDS SUMMARY | 2024-12-31 21:41 | XMS_ITS | Encounter Summary ---
Author Organization [facility] Address [address] [place] [address] Phone Care Team Providers Care Motion Picture Set Up Worker Name Role Phone Roman David MD Primary Care Provider [phone] Encounter Details Date Type Department Care Team (Late st Contact Info) Description 12/09/2024 Scanned Document [facility] [address] [place] [phone] Scanning, Generic Provider Social History Tobacco Use [...] AM EDT documented as of this encounter Plan of Treatment Upcoming Encounters Date Type Department Care Team (Late st Contact Info) Description 09/02/2025 1:30 PM EST Office Visit [facility] [address] [facility] [address] [place] [address] Ly Villanueva MD [address] [place] [address] documented as of this encounter Procedures Procedure Name Priority Date/Time Associated Diagnosis Comments OUTSIDE LAB SCAN 12/09/2024 documented in this encounter Results * OUTSIDE LAB SCAN (12/09/2024) Narrative 12/09/2024 Ordered by an unspecified provider. us Generic Provider Scanning OUTSIDE SCAN Final Result documented in this encounter Visit Diagnoses Not on filedocumented in this encounter Additional Health Concerns Assessment Noted Time A fall risk assessment has been complete d for the patient 11/29/2024 10:25 AM EDT documented as of this encounter Care Teams Motion Picture Set Up Worker Relationship Specialty Start Date End Date Roman David MD [address] [place] [address] PCP - General 12/08/21 documented as of this encounter
--- OUTSIDE RECORDS SUMMARY | 2024-12-31 21:42 | XMS_ITS | Encounter Summary ---
Author Organization [facility] Address [address] [place] [address] Phone Care Team Providers Care Generalist Name Role Phone Roman David MD Primary Care Provider [phone] Encounter Details Date Type Department Care Team (Late st Contact Info) Description 03/18/2020 Orders Only [facility] [address] [place] [address] Conversion, Onbase Social History Tobacco Use Types Packs/Day Years Used Date Smoking Tobacco: Never Assessed Sex and Gender Information Value Date Recorded Sex Assigned at Not on file Legal Sex Male 3:28 PM EST Gender Identity Not on file Sexual Orientation Not on file documented as of this encounter Plan of Treatment Upcoming Encounters Date Type Department Care Team (Late st Contact Info) Description 09/02/2025 1:30 PM EST Office Visit [place] [id number] [phone] Ly Villanueva MD [address] [facility] [address], [facility] [address] [place], [place] [phone] Scheduled Orders Name Type Priority Associated Diagnoses Orde r Schedule OUTSIDE LAB SCAN Lab Ordered: 03/18/2020 documented as of this encounter Visit Diagnoses Not on filedocumented in this encounter Care Teams Generalist Relationship Specialty Start Date End Date Roman David MD [address] [facility] [place] [address] PCP - General 12/08/21 documented as of this encounter
--- OUTSIDE RECORDS SUMMARY | 2024-12-31 21:42 | XMS_ITS | Encounter Summary ---
Author Organization [facility] Address [address] [place] [address] Phone Care Team Providers Care Occupational Therapy Specialist Name Role Phone Roman David MD Primary Care Provider [phone] Encounter Details Date Type Department Care Team (Late st Contact Info) Description 06/18/2021 Orders Only [facility] [address] [place] [address] Conversion, Onbase Social History Tobacco Use Types [...] Description 09/02/2025 1:30 PM EST Office Visit [facility] [address] [facility] [address] [place] [address] Ly Villanueva MD [address] [facility] 2, [facility] [address] [place] [address] Scheduled Orders Name Type Priority Associated Diagnoses Orde r Schedule OUTSIDE LAB SCAN Lab Ordered: 06/18/2021 documented as of this encounter Visit Diagnoses Not on filedocumented in this encounter Care Teams Occupational Therapy Specialist Relationship Specialty Start Date End Date Roman David MD [address] [place] [facility] [place] [address] PCP - General 12/08/21 documented as of this encounter
--- OUTSIDE RECORDS SUMMARY | 2024-12-31 21:42 | XMS_ITS | Encounter Summary ---
Author Organization [facility] Address [address] [place] [address] Phone Care Team Providers Care Pastry Cook Name Role Phone Roman David MD Primary Care Provider [phone] Encounter Details Date Type Department Care Team (Late st Contact Info) Description 11/25/2021 Orders Only [facility] [address] [place] [address] Conversion, Onbase Social History Tobacco Use Types [...] Description 09/02/2025 1:30 PM EST Office Visit [facility] [address] [facility] [address] [place] [phone] Ly Villanueva MD [address] [facility] [address], [address] [place] [address] Scheduled Orders Name Type Priority Associated Diagnoses Orde r Schedule OUTSIDE LAB SCAN Lab Ordered: 11/25/2021 OUTSIDE LAB SCAN Lab Ordered: 11/25/2021 documented as of this encounter Visit Diagnoses Not on filedocumented in this encounter Care Teams Pastry Cook Relationship Specialty Start Date End Date Roman David MD [address] [facility] [place] [address] PCP - General 12/08/21 documented as of this encounter
--- OUTSIDE RECORDS SUMMARY | 2024-12-31 21:42 | XMS_ITS | Encounter Summary ---
Author Organization [facility] Address [address] [place] [address] Care Team Providers Care Hspt Tutor Name Role Phone Roman David MD Primary Care Provider [phone] Encounter Details Date Type Department Care Team (Late st Contact Info) Description 01/11/2024 Clinisync Result Encounter [facility] External Department Unsolicited Tanika Rondon MD [address] [facility] [address] [place] [address] Social History Tobacco Use Types Packs/Day Years [...] NB OPHT [address] [place] [address] Tariq Perez DO [address] [place] [address] 07/23/2025 1:00 PM EST Office Visit [facility] [address] [place] [address] Yudy Montes MD [address] [place] [address] documented as of this encounter Procedures Procedure Name Priority Date/Time Associated Diagnosis Comments MRI HEAD/BRAIN WO/W CONTR 01/11/2024 11:38 PM EDT documented in this encounter Results * MRI HEAD/BRAIN WO/W CONTR (01/11/2024 11:38 PM EDT) Anatomical Region Laterality Modality Radiographic Bertha ging 01/11/2024 11:3 8 PM EDT Narrative 01/11/2024 11:40 [place] [address] Magnetic Resonance Report Signed Patient: TRAVIS COBURN MR#: [id number] : 1940 Acct:[id number] Age/Sex: 83 / M ADM Date: 01/09/24 Loc: LAB Attending Dr: Tanika Rondon M.D. Ordering Physician: aTnika Rondon M.D. Date of Service: 01/09/24 Procedure(s): MR head/brain wo/w con Accession Number(s): [id number] cc: Roman David M.D.; Tanika Rondon M.D. [place] [id number] Patient Name: TRAVIS COUBRN MRN: [id number] date: 1940 Sex: M Assigned Patient Location: LAB Current Patient Location: Accession/Order Number: [id number] Exam Date: 01/09/2024 12:29 Report Date: 01/11/2024 23:38 At the request of: TANIKA RONDON Procedure: MR head/brain wo/w con EXAM: MR head/brain wo/w con HISTORY: Asymmetric sensorineural hearing loss, H90.3 COMPARISON: None. TECHNIQUE: Multisequence MRI brain was performed with and without intravenous contrast. FINDINGS: There is no restricted diffusion to suggest acute infarct. There is no midline shift, mass effect, or abnormal extraaxial fluid collections. There is a 1.7 x 1 x 1 cm ( TR x AP x CC) T1 and T2 isointense well-defined mass within the right internal auditory canal which is slightly enlarged, extending to the cerebellopontine angle cistern and demonstrates avid homogeneous enhancement. There is no evidence of hemorrhage or cysts within the mass. There is no mass effect upon the brainstem. The cortical sulci and ventricular system are within normal limits for the age. Multiple nonspecific scattered foci of T2/FLAIR signal abnormality are identified in the coty and supratentorial white matter, likely reflect chronic microvascular ischemic changes. The major intracranial flow voids are visualized. The cerebellar tonsils are normal in position. The orbits demonstrate no suspicious enhancement or any focal lesions. The paranasal sinuses show no air-fluid level. The mastoid air cells are clear. The calvarium and extracranial soft tissues are unremarkable. MR/MR head/brain wo/w con IMPRESSION: No acute intracranial abnormality. 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 Mild chronic microvascular ischemia and involutional changes. Electronically authenticated by: KALPESH LYLE Date: 01/11/2024 23:38 Dictated By: KALPESH LYLE M.D. Signed By: 01/11/24 2340 DD/ [id number] TD/TT: Catshovel Driver: Procedure Note Radiology, Radiologist, MD - 01/11/2024 [place] [address] Magnetic Resonance Report Signed Patient: TRAVIS COBURN R#: [id number] : 1940cct:[id number] Age/Sex: 83 / MADM Date: 01/09/24 Loc: LAB Attending Dr: Tanika Rondon M.D. Ordering Physician: Tanika Rondon M.D. Date of Service: 01/09/24 Procedure(s): MR head/brain wo/w con Accession Number(s): [id number] cc: Roman David M.D.; Tanika Rondon M.D. [place] [address] Patient Name: TRAVIS COBURN MRN: [id number] date: 1940 Sex: M Assigned Patient Location: LAB Current Patient Location: Accession/Order Number: [id number] Exam Date: 01/09/2024 12:29 Report Date: 01/11/2024 23:38 At the request of: TANIKA RONDON Procedure: MR head/brain wo/w con EXAM: MR head/brain wo/w con HISTORY: Asymmetric sensorineural hearing loss, H90.3 COMPARISON: None. TECHNIQUE: Multisequence MRI brain was performed with and withoutintravenous contrast. FINDINGS: There is no restricted diffusion to suggest acute infarct. There is nomidline shift, mass effect, or abnormal extraaxial fluid collections. There is a 1.7 x 1 x 1 cm ( TR x AP x CC) T1 and T2 isointensewell-defined mass within the right internal auditory canal which is slightly enlarged, extending to the cerebellopontine angle cistern and demonstrates avid homogeneous enhancement. There is no evidence of hemorrhage or cystswithin the mass. There is no mass effect upon the brainstem. The cortical sulci and ventricular system are within normal limits for the age. Multiple nonspecific scattered foci of T2/FLAIR signal abnormality are identified in the coty and supratentorial white matter, likely reflectchronic microvascular ischemic changes. The major intracranial flow voids are visualized. The cerebellar tonsilsare normal in position. The orbits demonstrate no suspicious enhancement or any focal lesions. The paranasal sinuses show no air-fluid level. The mastoid air cells areclear. The calvarium and extracranial soft tissues are unremarkable. MR/MR head/brain wo/w con IMPRESSION: No acute intracranial abnormality. A 1.7 x 1 x 1 cm well-defined enhancing lesion within the right internal auditory canal, extending to the cerebellopontine angle cistern, mostlikely consistent with vestibular schwannoma or meningioma. Mild chronic microvascular ischemia and involutional changes. Electronically authenticated by: KALPESH LYLE Date: 01/11/2024 23:38 Dictated By: KALEPSH LYLE M.D. Signed By:01/11/24 0832 DD/ [id number] TD/TT: Catshovel Driver: us Tanika Rondon MD IMG XR PROCEDURES Final Resul t documented in this encounter Visit Diagnoses Not on filedocumented in this encounter Care Teams Hspt Tutor Relationship Specialty Start Date End Date Roman David MD PCP - General Family Medicine 10/20/23 documented as of this encounter
--- OUTSIDE RECORDS SUMMARY | 2024-12-31 21:42 | XMS_ITS | Clinical Summary ---
Author Organization [facility] Address [address] [place] [address] Care Team Providers Care Delivery Of Shopping News Name Role Phone Roman David MD Primary Care Provider [phone] Allergies Active Allergy Reactions Criticality Noted Date Comments Bee Pollen Unknown 08/24/2023 Other reaction(s): Unknown Cat Dander Unknown 08/24/2023 Other reaction(s): Unknown Fluorouracil Rash Low 07/23/2024 Penciclovir Anaphylaxis High 02/22/2021 Penicillins 07/20/2023 Sulfa Antibiotics 12/21/2023 Medications acetaminophen (Tylenol Extra Strength) 500 MG tablet Active aspirin 81 MG chewable tablet Chew 2 (two) times a week Active folic acid (Folvite) 1 MG tablet Take 1 tablet by mouth Daily 3 Active 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 2.5 MG tablet Take 2 tablets by mouth 1 (one) time per week. Follow directions carefully, and ask to explain any part you do not understand. Take exactly as directed. Active predniSONE (Deltasone) 10 MG tablet Take 5 mg by mouth Daily Active pantoprazole (ProtoNix) 40 MG EC tablet Take 40 mg by mouth in the morning. Take before meals. Do not crush, chew, or split. Active rosuvastatin (Crestor) 5 MG tablet Take 5 mg by mouth Daily Active cyanocobalamin (Vitamin B-12) 100 MCG tablet Take 100 mcg by mouth Daily Active doxycycline (Adoxa) 100 MG tablet Take 100 mg by mouth in the morning and 100 mg before bedtime. Take with a full glass of water and do not lie down for at least 30 minutes after. Active amitriptyline (Elavil) 25 MG tablet Take 25 mg by mouth as needed at bedtime for sleep 4 Active carvedilol (Coreg) 6.25 MG tablet Take 6.25 mg by mouth in the morning and 6.25 mg in the evening. Take with meals. 4 Active cetirizine (ZyrTEC) 10 MG tablet Take 10 mg by mouth Daily 4 Active montelukast (Singulair) 10 MG tablet Take 10 mg by mouth at bedtime 4 Active irbesartan (Avapro) 300 MG tablet Take 300 mg by mouth Daily 4 Active fluorouracil (Efudex) 5 % creamIndications: Actinic keratosis Apply to directed areas on the scalp, nose, and left cheek twice a day x 14 days. Dispense 30 day supply but only use for 14 days. 40 g 4 Active glimepiride (Amaryl) 2 MG tablet Take 2 mg by mouth in the morning. Take before meals. Active ciclopirox (Loprox) 0.77 % creamIndications: Other seborrheic dermatitis Apply thin layer to affected area once a day, 30 day supply 15 g 11 5 Active fluticasone (Flonase) 50 MCG/ACT nasal spray 1 spray in the morning. Active MAGNESIUM BISGLYCINATE PO Take 300 mg by mouth in the morning and 300 mg in the evening. Active benzoyl peroxide 5 % external washIndications:F olliculitis Apply to the face and scalp then rinse daily, 30 day supply 227 g 3 5 Active clindamycin (Cleocin) 300 MG capsule Take 1 capsule by mouth in the morning and 1 capsule at noon and 1 capsule in the evening. 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 Sudden idiopathic hearing lo ss of right ear with restricted hearing of left ear 12/27/2023 Abnormal ultrasound of abdomen 12/21/2023 Arthritis of right knee 12/21/2023 Benign prostatic hyperplasia with urinary obstru ction 12/21/2023 Carpal tunnel syndrome 12/21/2023 Gastroesophageal reflux disease 12/21/2023 Degenerative joint disease of wrist 12/21/2023 Localized primary osteoarthritis of wrist 2023 Notalgia paresthetica 12/21/2023 Otitis externa in other dise ases classified elsewhere, unspecified ear 12/21/2023 Otitis externa 12/21/2023 Cervicalgia 12/21/2023 Psoriasis vulgaris 12/21/2023 Sensorineural hearing loss (SNHL) of both ears 0 12/21/2023 Superficial basal cell carcinoma 12/21/2023 Superficial mycosis, unspecified 12/21/2023 Urinary urgency 12/21/2023 Excessive use of nonsteroida l anti-inflammatory drug (NSAID) 10/12/2023 Chronic kidney disease, stage 3 10/12/2023 Angina pectoris 08/24/2023 Benign essential hypertension 08/24/2023 Bradycardia 08/24/2023 Coronary artery disease 08/24/2023 Dizziness 08/24/2023 Fatigue 08/24/2023 Hyperlipidemia 08/24/2023 Short of breath on exertion 08/24/2023 Abnormal findings on imaging of biliary tract Anxiety 08/16/2023 Degeneration of cervical intervertebral disc 01/2024 Diabetes mellitus 08/16/2023 Epigastric pain 08/16/2023 Hiatal hernia 08/16/2023 HTN (hypertension) 08/16/2023 Hypertriglyceridemia 08/16/2023 Kidney stones 08/16/2023 Increased frequency of urination 08/16/2023 Loss of appetite 08/16/2023 Low back pain 08/16/2023 Neoplasm of uncertain behavior of skin of lower extremity 08/16/2023 Neuropathy 08/16/2023 Nocturia 08/16/2023 Prostatitis 08/16/2023 Psoriasis 08/16/2023 Sleep apnea 08/16/2023 Sinus arrhythmia 08/16/2023 Steatosis of liver 08/16/2023 Vitamin B 12 deficiency 08/16/2023 Pathological fracture of vertebra due to osteopo rosis 04/05/2023 Age-related nuclear cataract of both eyes 2022 Type 2 diabetes mellitus wit hout complication, with long-term current use of insulin 01/30/2023 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 degeneration of both eyes 01/30/2023 Dry eyes 01/30/2023 Blepharitis of upper and lower eyelids of both e yes 01/30/2023 USP 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 05/27/2022 Psoriasis with arthropathy 05/27/2022 Polyarthropathy 05/21/2022 Polymyalgia rheumatica ([facility]) 05/21/2022 Spondylolysis 05/21/2022 Resolved Problems Problem Noted Date Diagnosed Date Resolved Date Former cigarette smoker 08/16/202312/08 History of Helicobacter pylori infection 08/16/2023 12/21/2023 History of renal calculi 08/16/2023 Migraine 08/16/2023 12/21/2023 Nausea and vomiting 08/16/2023 12/21/19 24 Vitamin D deficiency 08/16/2023 024 Weight loss 08/16/2023 12/21/2023 Encounters Date Type Department Care Team Description 10/22/2024 11:30 AM EDT Office Visit [facility] [address] [place] [address] Yudy Montes MD Encounter for removal of sutures (Primary Dx) 10/22/2024 Bamboo flowsheet [facility] [address] [place] [address] Yudy Montes MD 10/22/2024 Travel 10/09/2024 10:00 AM EDT Office Visit [facility] [address] [place] [address] Yudy Montes MD Epidermal inclusion cyst (Primary Dx); Other specified erythematous conditions 10/09/2024 Bamboo flowsheet [facility] [address] [place] [address] Yudy Montes MD 10/09/2024 Travel from Last 3 Months Family History Medical History Relation Name Comments No Known Problems Brother No Known Problems Father No Known Problems Mother Cancer Other No Known Problems Sister Melanoma Neg Hx Multiple myeloma Neg Hx Relation Name Status Comments Brother Father Mother Other Sister Social History Tobacco Use Types Packs/Day Years [...] Sign Reading Time Taken Comments Blood Pressure 125/76 01/23/2024 9:54 AM EDT Pulse - - Temperature - - Respiratory Rate - - Oxygen Saturation - - Inhaled Oxygen Concentration - - Weight 111 kg (244 lb) 07/26/2024 8:54 AM EST Height 170.2 cm (5' 7 ) 07/26/2024 8:54 AM EST Body Mass Index 38.22 07/26/2024 8:54 AM EST Plan of Treatment Upcoming Encounters Date Type Department Care Team (Late st Contact Info) Description 06/25/2025 11:00 AM EST Office Visit [facility] [address] [place] [address] Tariq Perez DO [address] [place] [address] 07/23/2025 1:00 PM EST Office Visit [facility] [address] [place] [address] Yudy Montes MD [address] [place] [address] Health Maintenance Due Date Last Done Comments Pneumococcal Vaccine: 65+ Years Completed 8, 04/09/2016, 07/10/2011 Influenza Vaccine Completed 04/18/2024, , 05/12/2021, Additional history exists Procedures Procedure Name Priority Date/Time Associated Diagnosis Comments SKIN REPAIR Routine 10/09/2024 10:16 AM EDT Epidermal inclusion cyst SKIN EXCISION Routine 10/09/2024 10:16 AM EDT Epidermal inclusion cyst DERMATOPATHOLOGY EXAM Routine 10/09/2024 12:00 AM EDT Epidermal inclusion cyst from Last 3 Months Results * Skin repair (10/09/2024 10:16 AM EDT) Lachelle Reddy MA - 10/09/2024 10:16 AM EDT Complexity: Intermediate Final length (cm): 2.8 Reason for type of repair: allow closure of the large defect Undermining: edges undermined Undermining comment: The surrounding tissue was undermined until the skin edges could be approximated without undue tension. Any tissue redundancies were removed. Subcutaneous layers (deep stitches): Suture size: 3-0 Suture type comment: Biosyn Stitches: Buried horizontal mattress (Closure was performed in a layered fashion with subcutaneous tissue closed first using tension-bearing absorbable sutures to the level of the superficial fascia.) Fine/surface layer approximation (top stitches): Suture size: 4-0 Suture type comment: Surgipro Stitches: simple running Stitches comment: Epicuticular skin sutures were then placed with minimal tension. Suture removal (days): 14 Hemostasis achieved with: suture and electrodesiccation Outcome: patient tolerated procedure well with no complications Post-procedure details: sterile dressing applied and wound care instructions given Post-procedure details comment: It was emphasized to the patient to contact the office for any signs of infection, uncontrollable bleeding, or complications. Dressing type: bandage Yudy Montes MD DERM PROCEDURE ORDERABLES [facility] al Result * Skin excision (10/09/2024 10:16 AM EDT) Lachelle Reddy MA - 10/09/2024 10:16 AM EDT Lesion length (cm): 1.5 Lesion width (cm): 1.5 Margin per side (cm): 0 Total excision diameter (cm): 1.5 Informed consent: discussed and consent obtained Informed consent comment: Risks and possible complications were discussed as noted on the consent form. The consent form was signed prior to the procedure. Timeout: patient name, date of , surgical site, and procedure verified Timeout comment: Patient and provider identified site. Site was marked and excision was drawn out. Photo was taken and shown to patient, patient verified this is the correct site. Procedure prep: Patient was prepped and draped in usual sterile fashion (The planned incision lines were drawn along relaxed skin tension lines, if possible, to minimize scarring and deformity of surrounding structures.) Prep type: Chlorhexidine Anesthesia: the lesion was anesthetized in a standard fashion Anesthesia comment: The local anesthetic was injected to create a field block at the site of the procedure. Anesthetic: 1% lidocaine w/ epinephrine 1-100,000 buffered w/ 8.4% NaHCO3 Instrument used: #15 blade Instrument used comment: Incisions were made as drawn, and the surrounding tissue was undermined until the skin edges could be approximated without undue tension. Any tissue redundancies were removed. Hemostasis achieved with: electrodesiccation Additional details: Amount of lidocaine used: 9 ml Estimated blood loss: 1 ml Yudy Montes MD DERM PROCEDURE ORDERABLES Fin al Result * Dermatopathology exam (10/09/2024 12:00 AM EDT) SPECIMEN TYPE ------ SPECIMEN: RIGHT UPPER BACK ------ [facility] ICD10 Code L72.9 [facility] PROTOCOL EXC - EXCISION [facility] Final Diagnosis FOLLICULAR CYST, INFLAMED. [facility] Gross Text 1 rep sub [facility] Microscopic Description Microscopic examination performed. [facility] CPT 88718*1 [facility] Skin Topography unknown / Unknown 10/09/2024 10:16 AM EDT Comment:Differential Diagnos is: EIC Check Margins: No Size of lesion: 1.5 x 1.5 cm Yudy Montes MD LAB PATHOLOGY ORDERABLES Jen l Result [facility] from Last [address] [place] [id number] MEDICARE [employer] MEDICARE SUPPLEMENT Care Teams Delivery Of Shopping News Relationship Specialty Start Date End Date Roman David MD PCP - General Family Medicine 10/20/23
--- OUTSIDE RECORDS SUMMARY | 2024-12-31 21:42 | XMS_ITS | Patient Health Record ---
Author Organization [facility] in [place] Address [address] [place] [address] Care Team Providers Care Pediatric Cns Name Role Phone Joann Ruben Primary Care Provider [phone] Allergies Allergen (clinical drug ingredient) Drug/Non Drug Allergy documented on EMR Reaction Allergy Type Onset Date Status Substance with sulfonamide structure and antibacterial mechanism of action (substance) Sulfa Antibiotics unknown Drug Allergy Active Penicillin anaphylaxis Drug Allergy Acti ve Results Component Value Reference Range Notes BNP Reviewed date:07/21/2024 10:23:30 AM Interpretation: Performing Lab: Notes/Report: [facility] , NT Pro B Type Natriuretic Pept 174.0 <=1800.0 pg/mL Performing Lab: see note ML - [facility] LB CBC AUTO DIFF Reviewed date:07/21/2024 10:23:30 AM Interpretation: Performing Lab: Notes/Report: [facility] , White Blood Count 9.7 4.0-11.0 10 3/uL Red Blood Count 4.56 4.70-6.10 10 6/uL Hemoglobin 14.5 14.0-18.0 g/dL Hematocrit 43.1 42.0-54.0 % Mean Corpuscular Volume 94.5 80.0-94.0 fL Mean Corpuscular Hemoglobin 31.8 25.9-34.0 pg Mean Corpuscular HGB Conc 33.6 29.9-35.2 g/dL Red Cell Distribution Width 13.3 11.0-15.0 % Platelet Count 203 150-450 10 3/uL Mean Platelet Volume 10.8 9.5-13.5 fL Neutrophils Percent Auto 73.3 43.0-75.0 % Lymphocytes Percent Auto 16.9 20.5-60.0 % Monocytes Percent Auto 7.3 1.7-12.0 % Eosinophils Percent Auto 1.4 0.9-7.0 % Basophils Percent Auto 0.5 0.2-2.0 % Immature Granulocytes Pct Auto 0.6 0.0-0.5 % Neutrophils Absolute Auto 7.1 1.4-6.5 10 3/uL Lymphocytes Absolute Auto 1.7 1.2-3.8 10 3/uL Monocytes Absolute Auto 0.7 0.3-0.8 10 3/uL Eosinophils Absolute Auto 0.1 0.0-0.7 10 3/uL Basophils Absolute Auto 0.1 0.0-0.1 10 3/uL Immature Granulocytes Abs Auto 0.06 0.00-0.03 10 3/uL Performing Lab: see note ML - [facility] LB PROF 14(COMP METB) Reviewed date:07/21/2024 10:23:30 AM Interpretation: Performing Lab: Notes/Report: [facility] , Sodium 141 136-145 mmol/L Potassium 3.9 3.5-5.1 mmol/L Chloride 104 98-107 mmol/L Carbon Dioxide 30.8 21.0-32.0 mmol/L Anion Gap 10.1 Glucose 165 74-106 mg/dL Blood Urea Nitrogen 13.0 7.0-18.0 mg/dL Creatinine 1.23 0.70-1.30 mg/dL Estimated GFR ( Nancy >60 >=60 mL/min/1.73m 2 Estimated GFR (Non- Smita 56 >=60 mL/min/1.73m 2 BUN Creatinine Ratio 10.6 Calcium 9.0 8.5-10.1 mg/dL Bilirubin Total 0.6 0.2-1.0 mg/dL Aspartate Amino Transferase 17 15-37 U/L Alanine Aminotransferase 31 16-63 U/L Alkaline Phosphatase 104 46-116 U/L Total Protein 7.2 6.4-8.2 g/dL Albumin Level 3.7 3.4-5.0 g/dL Globulin 3.5 Albumin Globulin Ratio 1.1 Performing Lab: see note ML - [facility] LB UA DIP NONAUTO WO MICRO (810 [id number]) - IN OFFICE Reviewed date:12/09/2024 09:17:26 PM Interpretation: Performing Lab: Notes/Report: COLOR yellow CLARITY clear GLUCOSE neg BILIRUBIN neg KETONE neg SPECIFIC GRAVITY 1.025 BLOOD trace PH 5 PROTEIN protein UROBILINOGEN neg NITRITE neg LEUKOCYTE ESTERASE neg CREATININE Reviewed date:01/09/2024 10:08:46 PM Interpretation: Performing Lab: Notes/Report: [facility] , Creatinine 1.28 0.70-1.30 mg/dL Estimated GFR ( Nancy >60 >=60 Estimated GFR (Non- Smita 54 >=60 Performing Lab: see note ML - [facility] FREE T3 Reviewed date:06/24/2024 02:20:48 PM Interpretation: Performing Lab: Notes/Report: [facility] , Free T3 2.22 2.18-3.98 pg/mL Performing Lab: see note ML - [facility] GLYCOHEMOGLOBIN A1C Reviewed date:06/24/2024 02:20:48 PM Interpretation: Performing Lab: Notes/Report: [facility] , Glycohemoglobin A1C 6.9 4.5-6.2 % ADA RECOMMENDED LIMIT 4.0 - 6.0 ACTION SUGGESTED > 7.0 ADA THERAPEUTIC TARGET < 7.0 Estimated Average Glucose 151 Performing Lab: see note ML - [facility] LB LIPID PROFILE Reviewed date:06/24/2024 02:20:48 PM Interpretation: Performing Lab: Notes/Report: [facility] , Triglycerides 119 <=150 mg/dL Cholesterol 197 <=200 mg/dL HDL Cholesterol 51 40-60 mg/dL <40 mg/dl - HIGH CARDIOVASCULAR RISK > or =60 mg/dl - LOW CARDIOVASCULAR RISK LDL Cholesterol Calculated 122.2 >190 mg/dl VERY HIGH 130-159 mg/dl BORDERLINE HIGH 160-189 mg/dl HIGH <100 mg/dl OPTIMAL 100-129 mg/dl NEAR OR ABOVE OPTIMAL VLDL CHOLESTEROL 23.8 Chol HDL Ratio 3.9 7.1 - 11.0 MODERATE RISK >11.0 HIGH RISK 3.3 - 4.4 LOW RISK 4.4 - 7.1 AVERAGE RISK Performing Lab: see note - [facility] LB PROF 14(COMP METB) Reviewed date:06/24/2024 02:20:48 PM Interpretation: Performing Lab: Notes/Report: [facility] , Sodium 141 136-145 mmol/L Potassium 4.1 3.5-5.1 mmol/L Chloride 105 98-107 mmol/L Carbon Dioxide 28.5 21.0-32.0 mmol/L Anion Gap 11.6 Glucose 114 74-106 mg/dL Blood Urea Nitrogen 18.0 7.0-18.0 mg/dL Creatinine 1.34 0.70-1.30 mg/dL Estimated GFR ( Nancy >60 >=60 mL/min/1.73m 2 Estimated GFR (Non- Smita 51 >=60 mL/min/1.73m 2 BUN Creatinine Ratio 13.4 Calcium 9.1 8.5-10.1 mg/dL Bilirubin Total 0.6 0.2-1.0 mg/dL Aspartate Amino Transferase 15 15-37 U/L Alanine Aminotransferase 25 16-63 U/L Alkaline Phosphatase 91 46-116 U/L Total Protein 6.7 6.4-8.2 g/dL Albumin Level 3.3 3.4-5.0 g/dL Globulin 3.4 Albumin Globulin Ratio 1.0 Performing Lab: see note ML - [facility] LB T4 Reviewed date:06/24/2024 02:20:48 PM Interpretation: Performing Lab: Notes/Report: [facility] , T4 Thyroxine 5.10 4.50-12.10 ug/dL Performing Lab: see note ML - [facility] LB TSH Reviewed date:06/24/2024 02:20:48 PM Interpretation: Performing Lab: Notes/Report: [facility] , Thyroid Stimulating Hormone 4.073 0.358-3.740 uIU/mL Performing Lab: see note ML - [facility] LB URIC ACID SERUM Reviewed date:06/24/2024 02:20:48 PM Interpretation: Performing Lab: Notes/Report: [facility] , Uric Acid 7.0 3.5-7.2 mg/dL Performing Lab: see note ML - [facility] LB RENAL FUNCTION PANEL Reviewed date:09/25/2024 07:55:24 PM Interpretation: Performing Lab: Notes/Report: [facility] , Sodium 139 136-145 mmol/L Potassium 4.2 3.5-5.1 mmol/L Chloride 103 98-107 mmol/L Carbon Dioxide 30.8 21.0-32.0 mmol/L Anion Gap 9.4 Glucose 151 74-106 mg/dL Blood Urea Nitrogen 15.0 7.0-18.0 mg/dL Creatinine 1.31 0.70-1.30 mg/dL Estimated GFR ( Nancy >60 >=60 mL/min/1.73m 2 Estimated GFR (Non- Smita 52 >=60 mL/min/1.73m 2 BUN Creatinine Ratio 11.5 Calcium 8.9 8.5-10.1 mg/dL Phosphorus 2.8 2.6-4.7 mg/dL Albumin Level 3.6 3.4-5.0 g/dL Performing Lab: see note ML - [facility] Troponin I High Sensitivity Reviewed date:07/21/2024 10:23:30 AM Interpretation: Performing Lab: Notes/Report: [facility] , Troponin I High Sensitivity 9.2 4.0-76.1 pg/mL NOTE: HIGH-SENSITIVITY TROPONIN ASSAY IS NOT INTENDED TO BE CUT-OFF POINTS HAVE BEEN ESTABLISHED BASED ON THE FOURTH HAS BEEN CONFIRMED THE DECISION THRESHOLD FOR SD 99TH PERCENTILE = 76.2 PG/ML USED IN ISOLATION BUT SHOULD BE INTERPRETED IN CONJUNCTION REFERENCE LIMIT (URL) OF TROPONIN, DEFINED THE 99TH UNIVERSAL DEFINITION OF MYOCARDIAL INFARCTION. THE UPPER DIAGNOSIS. WITH OTHER DIAGNOSTIC AND CLINICAL INFORMATION. PERCENTILE OF cTnI DISTRIBUTION IN A REFERENCE POPULATION, Performing Lab: see note ML - [facility] TSH Reviewed date:07/21/2024 10:23:30 AM Interpretation: Performing Lab: Notes/Report: [facility] , Thyroid Stimulating Hormone 2.075 0.358-3.740 uIU/mL Performing Lab: see note ML - [facility] FREE T4 Reviewed date:07/21/2024 10:23:30 AM Interpretation: Performing Lab: Notes/Report: [facility] , Free T4 0.77 0.76-1.46 ng/dL Performing Lab: see note ML - [facility] LB PSA SCREENING Reviewed date:06/24/2024 02:20:48 PM Interpretation: Performing Lab: Notes/Report: [facility] , Prostate Specific Antigen Scrn 2.09 <=4.00 ng/mL Performing Lab: see note - [facility] CBC AUTO DIFF Reviewed date:06/24/2024 02:20:48 PM Interpretation: Performing Lab: Notes/Report: [facility] , White Blood Count 8.2 4.0-11.0 10 3/uL Red Blood Count 4.42 4.70-6.10 10 6/uL Hemoglobin 14.0 14.0-18.0 g/dL Hematocrit 42.2 42.0-54.0 % Mean Corpuscular Volume 95.5 80.0-94.0 fL Mean Corpuscular Hemoglobin 31.7 25.9-34.0 pg Mean Corpuscular HGB Conc 33.2 29.9-35.2 g/dL Red Cell Distribution Width 13.1 11.0-15.0 % Platelet Count 170 150-450 10 3/uL Mean Platelet Volume 10.6 9.5-13.5 fL Neutrophils Percent Auto 63.0 43.0-75.0 % Lymphocytes Percent Auto 24.4 20.5-60.0 % Monocytes Percent Auto 8.3 1.7-12.0 % Eosinophils Percent Auto 2.7 0.9-7.0 % Basophils Percent Auto 0.5 0.2-2.0 % Immature Granulocytes Pct Auto 1.1 0.0-0.5 % Neutrophils Absolute Auto 5.2 1.4-6.5 10 3/uL Lymphocytes Absolute Auto 2.0 1.2-3.8 10 3/uL Monocytes Absolute Auto 0.7 0.3-0.8 10 3/uL Eosinophils Absolute Auto 0.2 0.0-0.7 10 3/uL Basophils Absolute Auto 0.0 0.0-0.1 10 3/uL Immature Granulocytes Abs Auto 0.09 0.00-0.03 10 3/uL Performing Lab: see note ML - [facility] LB VC EXT Venous Reflux SANDY LMT D Reviewed date:06/17/2024 12:44:33 PM Interpretation: Performing Lab: Notes/Report: Source Facility: [facility]-[address] [place] [address] [place] [address] Vein Report Signed Patient: TRAVIS COBURN MR#: [id number] : 1940 Acct:[id number] Age/Sex: 83 / M ADM Date: 06/14/24 Loc: VC Attending Dr: Roman David M.D. Ordering Physician: Roman David M.D. Date of Service: 06/14/24 Procedure(s): VC EXT Venous Reflux SANDY LMTD Accession Number(s): [id number] cc: Roman David M.D. Patient Name: TRAVIS COBURN MR#: [id number] : 1940 Exam Date: 06/14/2024 Ordering Doctor: DR Roman David . RADIOLOGY REPORT PROCEDURE: VC EXT VENOUS REFLUX SANDY LMTD COMPARISON: None. INDICATIONS: R60.0 Edema TECHNIQUE: Duplex imaging of the lower extremity to assess the deep and superficial venous system for the presence of deep or superficial venous incompetence and to document the location and severity of disease. The study includes evaluation of the great saphenous vein (GSV), anterior accessory saphenous vein (AASV) and small saphenous vein (SSV). Patient scanned in reverse Trendelenburg and standing. FINDINGS: RIGHT LOWER EXTREMITY: Saphenofemoral Junction Reflux: Yes 9.9mm 2.1 sec GSV: Diam (mm) Reflux/ Time (sec) Proximal Thigh 10.3 Yes 1.7 Mid Thigh 6.2 Yes 0.5 Distal Thigh 6.6 Yes 0.6 Prox Calf 4.1 Yes 0.5 Mid Calf 2.9 Yes 0.9 Saphenopopliteal Junction Reflux: 4.0mm Yes 0.4 SSV: Proximal Calf 3.9 Yes 0.8 Mid Calf 2.6 No AASV: Proximal Thigh 5.5 Yes 0.9 Mid Thigh 2.2 No Distal Thigh Thrombi: No acute or chronic thrombus. Compressibility: Normal. Flow: Moderate deep venous reflux. Preforator: Mid medial lower leg measures 3.1 mm with 3.2s reflux. Tech Note: Atherosclerosis noted in arteries of right leg. Incompetent varicose vein mid medial calf measures 4.0 mm with 1.1s reflux. LEFT LOWER EXTREMITY: Saphenofemoral Junction Reflux: Yes 9.1 mm 4.1 sec GSV: Diam (mm) Reflux/Time (sec) Proximal Thigh 8.9 Yes 0.8 Mid Thigh 6.3 Yes 0.6 Distal Thigh 6.4 Yes 2.9 Prox Calf 4.8 Yes 2.5 Mid Calf 4.2 Yes 4.5 Saphenopopliteal Junction Relux: 5.7 mm Yes 1.0 SSV: Proximal Calf 5.6 Yes 0.8 Mid Calf 4.2 Yes 4.4 AASV: Proximal Thigh 3.5 Yes 1.1 Mid Thigh 2.4 Yes 0.3 Distal Thigh Thrombi: No acute or chronic thrombus. Compressibility: Normal. Flow: Mild deep venous reflux. Plasterer Journeyman: No significant incompetent perforators. Tech Note: Atherosclerosis noted in arteries of right leg. Incompetent varicose vein distal medial lower leg measures 4.0 mm with 2.4s reflux. CONCLUSION: 1. 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 2. Abnormally dilated and incompetent right anterior accessory saphenous and left small saphenous veins. 3. Consultation for endovenous ablation should be considered. Dictated by: Dakota Carney M.D. on 06/17/2024 at 08:30 Approved by: Dakota Carney M.D. on 06/17/2024 at 08:39 Dictated By: Dakota Carney M.D. Signed By: 06/17/2440 DD/ TD/TT: Script Artist: [place] [address] Vein Report Signed Patient: PRIMO COBURN MR#: [id number] : 1940 Acct:[id number] Age/Sex: 83 / M ADM Date: 06/14/24 Loc: VC Attending Dr: Jah David M.D. Ordering Physician: Roman David M.D. Date of Service: 06/14/24 Procedure(s): VC EXT Venous Reflux SANDY LMTD Accession Number(s): [id number] cc: Roman David M.D. Patient Name: TRAVIS COBURN MR#: [id number] : 1940 Exam Date: 06/14/2024 Ordering Doctor: DR Roman David . RADIOLOGY REPORT PROCEDURE: VC EXT VENOUS REFLUX SANDY LMTD COMPARISON: None. INDICATIONS: R60.0 Edema TECHNIQUE: Duplex imaging of the lower extremity to assess the deep and superficial venous system for the presence of deep or superficial venous incompetence and to document the location and severity of disease. The study includes evaluation of the great saphenous vein (GSV), anterior accessory saphenous vein (AASV ) and small saphenous vein (SSV). Patient scanned in reverse Trendelenbur g and standing. FINDINGS: RIGHT LOWER EXTREMITY: Saphenofemoral Junct ion Reflux: Yes 9.9mm 2.1 sec GSV: Diam (mm) Reflu x/ Time (sec) Proximal Thigh 10.3 Yes 1.7 Mid Thigh 6.2 Yes 0.5 Distal Thigh 6.6 Yes 0.6 Prox Calf 4.1 Yes 0.5 Mid Calf 2.9 Yes 0.9 Saphenopopliteal Junction Reflux: 4.0mm Yes 0.4 SSV: Proximal Calf 3.9 Ye s 0.8 Mid Calf 2.6 No AASV: Proximal Thigh 5.5 Y es 0.9 Mid Thigh 2.2 No Distal Thigh Thrombi: No acute or chronic thrombus. Compressibility: Normal. Flow: Moderate deep venous reflux. Preforator: Mid medi al lower leg measures 3.1 mm with 3.2s reflux. Tech Note: Atherosclerosis noted in arteries of right leg. Incompetent varicose vein mid me dial calf measures 4.0 mm with 1.1s reflux. LEFT LOWER EXTREMITY: Saphenofemoral Junct ion Reflux: Yes 9.1 mm 4.1 sec GSV: Diam (mm) Reflux/Time (sec) Proximal Thigh 8.9 Y es 0.8 Mid Thigh 6.3 Yes 0.6 Distal Thigh 6.4 Yes 2.9 Prox Calf 4.8 Yes 2.5 Mid Calf 4.2 Yes 4.5 Saphenopopliteal Junction Relux: 5.7 mm Yes 1.0 SSV: Proximal Calf 5.6 Ye s 0.8 Mid Calf 4.2 Yes 4.4 AASV: Proximal Thigh 3.5 Y es 1.1 Mid Thigh 2.4 Yes 0.3 Distal Thigh Thrombi: No acute or chronic thrombus. Compressibility: Normal. Flow: Mild deep veno us reflux. Plasterer Journeyman: No significant incompetent perforators. Tech Note: Atherosclerosis noted in arteries of right leg. Incompetent varicose vein distal medial lower leg measures 4.0 mm with 2.4s reflux. CONCLUSION: 1. Abnormally dilate d and incompetent great saphenous veins bilaterally. 2. Abnormally dilate d and incompetent right anterior accessory saphenous and left small saphenous veins. 3. Consultation for endovenous ablation should be considered. Dictated by: Dakota Carney M.D. on 06/17/2024 at 08:30 Approved by: Dakota Carney M.D. on 06/17/2024 at 08:39 Dictated By: Dakota Carney M.D. Signed By: 06/17/24839 DD/ 8 TD/TT: Script Artist: MR head/brain wo/w con Reviewed date:01/14/2024 03:50:02 PM Interpretation: Performing Lab: Notes/Report: Source Facility: [place] [address] Magnetic Resonance Report Signed Patient: TRAVIS COBURN MR#: [id number] : 1940 Acct:[id number] Age/Sex: 83 / M ADM Date: 01/09/24 Loc: LAB Attending Dr: Tanika Rondon M.D. Ordering Physician: Tanika Rondon M.D. Date of Service: 01/09/24 Procedure(s): MR head/brain wo/w con Accession Number(s): [id number] cc: Roman David M.D.; Tanika Rondon M.D. [place] [address] Patient Name: TRAVIS COBURN MRN: [id number] date: 1940 Sex: M Assigned Patient Location: LAB Current Patient Location: Accession/Order Number: [id number] Exam Date: 01/09/2024 12:29 Report Date: 01/11/2024 [...] LYLE M.D. Signed By: 01/11/24 2340 DD/ 2338 TD/TT: Script Artist: [place] [address] Magnetic Resonance Report Signed Patient: PRIMO COBURN MR#: [id number] : 1940 Acct:[id number] Age/Sex: 83 / M ADM Date: 01/09/24 Loc: LAB Attending Dr: Tanika Rondon M.D. Ordering Physician: Tanika Rondon M.D. Date of Service: 01/09/24 Procedure(s): MR head/brain wo/w con Accession Number(s): [id number] cc: Roman David M.D. ; Tanika Rondon M.D. [place] [address] Patient Name: TRAVIS COBURN MRN: [facility]:[id number] date: 1940 Sex: M Assigned Patient Location: LAB Current Patient Location: Accession/Order Numb er: [id number] Exam Date: 01/09/2024 12:29 Report Date: 01/11/2024 23:38 At the request of: TANIKA ROBBISERJIO Procedure: MR head/b rain wo/w con EXAM: MR head/brain wo/w con HISTORY: Asymmetric sensorineural hearing loss, H90.3 COMPARISON: None. TECHNIQUE: Multisequ ence MRI brain was performed with and without intravenous contrast. FINDINGS: There is no restrict ed diffusion to suggest acute infarct. There is no midline shift, mass effect, or abnormal extraaxial fluid collections. There is a 1.7 x 1 x 1 cm ( TR x AP x CC) T1 and T2 isointense well-defined mass within the righ t internal auditory canal which is slightly enlarged, extending to the cerebellopontine angle cistern and demonstrates avid homogeneous enhancem ent. There is no evidence of hemorrhage or cysts within the mass. There is no ma ss effect upon the brainstem. The cortical sulci a nd ventricular system are within normal limits for the age. Multiple nonspecific scattered foci of T2/FLAIR signal abnormality are identified in the po ns and supratentorial white matter, likely reflect chronic microvascular ischem ic changes. The major intracrani al flow voids are visualized. The cerebellar tonsils are normal in position. The orbits demonstra te no suspicious enhancement or any focal lesions. The paranasal sinuses sh ow no air-fluid level. The mastoid air cells are clear. The calvarium and extracranial soft tissues are unremarkable. M R/MR head/brain wo/w con IMPRESSION: No acute intracrania l abnormality. 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 Mild chronic microvascular ischemia and involutional changes. Electronically authenticated by: KALPESH LYLE Date: 01/11/2024 23:38 Dictated By: CARRINGTON LYLE M.D. Signed By: 01/11/24 1510 DD/ 4645 TD/TT: Script Artist: GEREMIAS SILVA (810 [id number]) - IN OFFICE Reviewed date:08/09/2024 10:11:05 AM Interpretation: Performing Lab: Notes/Report: COLOR yellow CLARITY cloudy GLUCOSE neg BILIRUBIN neg KETONE neg SPECIFIC GRAVITY 1.010 BLOOD neg PH 6 PROTEIN neg UROBILINOGEN neg NITRITE neg LEUKOCYTE ESTERASE pos LIPID PROFILE Reviewed date:12/09/2024 09:17:26 PM Interpretation: Performing Lab: Notes/Report: [facility] , Triglycerides 160 <=150 mg/dL Cholesterol 185 <=200 mg/dL HDL Cholesterol 50 40-60 mg/dL <40 mg/dl - HIGH CARDIOVASCULAR RISK > or =60 mg/dl - LOW CARDIOVASCULAR RISK LDL Cholesterol Calculated 103.0 <100 mg/dl OPTIMAL 160-189 mg/dl HIGH 130-159 mg/dl BORDERLINE HIGH 100-129 mg/dl NEAR OR ABOVE OPTIMAL >190 mg/dl VERY HIGH VLDL CHOLESTEROL 32.0 Chol HDL Ratio 3.7 >11.0 HIGH RISK 4.4 - 7.1 AVERAGE RISK 3.3 - 4.4 LOW RISK 7.1 - 11.0 MODERATE RISK Performing Lab: see note ML - [facility] MR UGALDE wo/w con Reviewed date:09/26/2024 09:03:26 AM Interpretation: Performing Lab: Notes/Report: Source Facility: [place] [address] [place] [address] Magnetic Resonance Report Signed Patient: TRAVIS COBURN MR#: [id number] : 1940 Acct:[id number] Age/Sex: 83 / M ADM Date: 09/25/24 Loc: LAB Attending Dr: Kiera Barragan M.D. Ordering Physician: Kiera Barragan M.D. Date of Service: 09/25/24 Procedure(s): MR UGALDE wo/alexandr con Accession Number(s): [id number] cc: Roman David M.D.; Kiera Barragan M.D. [place] [address] Patient Name: TRAVIS COBURN MRN: [id number] date: 1940 Sex: M Assigned Patient Location: LAB Current Patient Location: LAB Accession/Order Number: [id number] Exam Date: 09/25/2024 19:50 Report Date: 09/25/2024 19:59 At the request of: KIERA BARRAGAN MD Procedure: MR IAC wo/w con MRI the brain/IACs performed without and with contrast INDICATION: Vestibular schwannoma, dizziness COMPARISON 01/09/2024 FINDINGS: No restricted diffusion. Mild generalized involutional changes with prominence of ventricles and sulci. Mild periventricular and subcortical T2 prolongation identified nonspecific, commonly attributed to chronic small vessel ischemic disease. Major intracranial flow voids preserved. No shift of midline structure. Basal cisterns are patent. Intrinsic T2 signal within the inner ear structures is maintained. Within the right IAC, there is redemonstration of a acoustic neuroma measures 1.7 x 1.2 cm. Previously, this measured 1.6 x 1.0 cm. No additional foci of abnormal postcontrast enhancement identified elsewhere within the brain. Mild paranasal sinus mucosal thickening. 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 Previously measuring 1.6 x 1.0 cm. Otherwise mild chronic small vessel disease and Central involutional changes without evidence acute intracranial process by MRI.. Impression dictated by: Leo Cummings M.D.09/25/2024 7:59 PM Dictation Location: [place] [address] Electronically authenticated by: [id number] Y Date: 09/25/2024 19:59 Dictated By: Leo Cmumings M.D. Signed By: 09/25/242001 DD/ 58 TD/TT: Script Artist: [place] [address] Magnetic Resonance Report Signed Patient: PRIMO COBURN MR#: [id number] : 1940 Acct:[id number] Age/Sex: 83 / M ADM Date: 09/25/24 Loc: LAB Attending Dr: Kiera Barragan M.D. Ordering Physician: Kiera Barragan M.D. Date of Service: 09/25/24 Procedure(s): MR IAC wo/w con Accession Number(s): [id number] cc: Roman David M.D. ; Kiera Barragan M.D. [address] [address] Patient Name: TRAVIS COBURN MRN: [id number] date: 1940 Sex: M Assigned Patient Location: LAB Current Patient Location: LAB Accession/Order Numb er: [id number] Exam Date: 09/25/2024 19:50 Report Date: 09/25/2024 19:59 At the request of: KIERA BARRAGAN MD Procedure: MR IAC wo /w con MRI the brain/IACs performed without and with contrast INDICATION: Vestibul ar schwannoma, dizziness COMPARISON 01/09/2024 FINDINGS: No restric sheron diffusion. Mild generalized involutional changes with prominence of ventri cles and sulci. Mild periventricular and subcortical T2 prolongation identif ied nonspecific, commonly attributed to chronic small vessel ischemic dise ase. Major intracranial flow voids preserved. No shift of midline structure . Basal cisterns are patent. Intrinsic T2 signal within the inner ear structures is maintained. Within the right IAC, there is redemonstration of a acoustic neuroma measures 1.7 x 1.2 cm. Previously, this measured 1.6 x 1.0 cm. No additional foci of abnormal postcontrast enhance ment identified elsewhere within the brain. Mild paranasal sinus muco tram thickening. 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 Previously measuring 1.6 x 1.0 cm. Otherwise mild chron ic small vessel disease and Central involutional changes without evidence acu te intracranial process by MRI.. Impression dictated by: Leo Cummings M.D.09/25/2024 7:59 PM Dictation Location: [place] [address] Electronically authenticated by: [id number] Y Date: 09/25/2024 19:59 Dictated By: Ernestina Cummings M.D. Signed By: 09/25/242001 DD/ 58 TD/TT: Script Artist: Reason For Referral No Information Medications Medication SIG (Take, Route, Frequency, Duration) Notes Start Date End Date Status Pantoprazole Sodium 40 mg TAKE 1 TABLET BY MOUTH ONCE DAILY for 90 Active Coreg 6.25 MG 1 tablet with food Orally tid for 30 days Active Cetirizine HCl 10 MG TAKE 1 TABLET BY MO UTH EVERY DAY for 30 Active Crestor 5 MG 1 tablet Orally Once a day Active Methotrexate Sodium 2.5 MG as directed O rally 3 once weekly Active Folic Acid 1 MG 1 tablet Orally Once a day Active MiraLax 17 GM/SCOOP 1 scoop mixed with 8 ounces of fluid Orally Once a day- twice as needed Active Cholecalciferol 125 MCG (5000 UT) as directed Orally Active Glimepiride 1 MG 2 in am and 1 in afternoon bid for 30 days Active Clindamycin Phosphate 1 % 1 application Externally bid 05/30/2024 Active Montelukast Sodium 10 MG TAKE 1 TABLET B Y MOUTH EVERY DAY for 30 Active Glucometer - (One-Touch Delica Plus) & Lancet Device - tid Active predniSONE 2.5 MG 1 tablet with food o r milk Orally Once a day Active Glucose Meter Test - Use as directed onc e daily for 90 days Dx E11.9 Active CPAP - use as directed Acti ve Ibuprofen 600 MG TAKE 1 TABLET BY KIET TH EVERY 6 HOURS NEEDED FOR MODERATE PAIN FOR 10 DAYS Oral for 10 days Active Doxycycline Monohydrate 100 MG 1 capsule Orally bid for 10 days 10/04/2024 Active OneTouch Ultra Blue Test - Use one strip in vitro to test glucose daily DX E11.9 for 90 days Active Amitriptyline HCl 50 mg TAKE 1 TO 2 TABL ETS BY MOUTH EVERY NIGHT for 90 Active Aspirin 81 MG 1 tablet Orally Once a day Active CPAP Supplies -- Mask and Tubing Active Irbesartan 300 MG TAKE 1 TABLET BY KIET TH EVERY DAY for 30 Active OneTouch Delica Plus [id number] - Use 1 lancet to poke finger once daily DX E11.9 for 90 days Active Immunizations Vaccine Route Administration Date Status Comme nts Flu, Fluad (86708) 65 yrs and older, single-dose syringe IM Intramuscular 05/30/2024 Administered Social History Tobacco Use: Social History Observation Description Date Details (start date - stop date) Former Smoker NA - NA Tobacco Use/Smoking Question Answer Notes Patient is a former smoker Alcohol Screen (Audit-C) Question Answer Notes Did you have a drink containing alcohol in the p ast year? No Points 0 Interpretation Negative AUDIT-C (Standard) Question Answer Notes Did you have a drink containing alcohol in the p ast year? No Points 0 Interpretation Negative Problems Problem Type SNOMED Code ICD Code Onset Dates Problem Status W/U Status Risk Notes Problem Helicobacter pylori (21006935) Helicobacter pylori [H. pylori] as the cause of diseases classified elsewhere (B96.81) Active confirmed Problem Overweight (672190168) Overweight (E66.3) Active confirmed Problem Migraine without aura, not refractory (602677551) Other migraine, not intractable, without status migrainosus (G43.809) Active confirmed Problem Hereditary disorder of nervous system (218517863) Hereditary and idiopathic neuropathy, unspecified (G60.9) Active confirmed Problem Pinguecula (02522821) Pinguecula , unspecified eye (H11.159) Active confirmed Problem Senile corneal changes (87740160) Arcus senilis, unspecified eye (H18.419) Active confirmed Problem 261096572 Sensorineural he aring loss, bilateral (H90.3) Active confirmed Problem Irritable bowel syndrome with diarrhea (685186908) Irritable bowel syndrome with diarrhea (K58.0) Active confirmed Problem Polymyalgia rheumatica (19170819) Polymyalgia rheumatica (M35.3) Active confirmed Problem Palpitations (96584372) Palpitations (R00.2) Active confirmed Problem [id number] Other fracture of first lumbar vertebra, initial encounter for open fracture (S32.018B) Active confirmed Problem Hypertension (08357499) Hypertension (I10) Active confirmed Problem Anxiety (72668882) Anxiety (F41.9) Active confi rmed Problem Sleep apnea (89895438) Sleep apnea (G47.30) Active confirmed Problem Osteoarthritis of knee (931681327) Osteoarthritis of knee (M17.9) Active confirmed Problem Hiatal hernia (12466199) Hiatal hernia (K44.9) Active confirmed Problem Psoriatic arthritis (155835842) Psoriatic arthritis (L40.50) Active confirmed Problem Vitamin D deficiency (80562839) Vitamin D deficiency (E55.9) Active confirmed Problem Hypertriglyceridemia (136780720) Hypertriglyceridemia (E78.1) Active confirmed Problem Diabetes mellitus type 2 (disorder) (62935368) DM2 (diabetes mellitus, type 2) (E11.9) Active confirmed Problem Colitis (37563923) Colitis (K52.9) Active confi rmed Problem Serous otitis media (51396327) Serous otitis media (H65.90) Active confirmed Problem Acute bronchitis (34740639) Acute bronchitis (J20.9) Active confirmed Problem Hyperuricemia (16862133) Hyperuricemia (E79.0) Active confirmed Problem Atopic dermatitis (78789826) Atopic dermatitis (L20.9) Active confirmed Problem Irritable bowel syndrome (38323408) Irritable bowel syndrome (K58.9) Active confirmed Problem Diabetes mellitus type 2 (97320829) Diabetes mellitus type 2, uncomplicated (E11.9) Active confirmed Problem Cataract (362428884) Cataract (H26.9) Active co nfirmed Problem Sinus arrhythmia (47705965) Sinus arrhythmia (I49.8) Active confirmed Problem Vitreous degeneratio n (58843528) Vitreous degeneration (H43.819) Active confirmed Problem Contracture of wong r fascia (685381305) 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) Active confirmed Problem Venous stasis (36686261) Venous stasis (I87.8) Active confirmed Problem Unsteady gait (04491742) Unsteady gait (R26.81) Active confirmed Problem Acute renal failure syndrome (66361940) Acute kidney failure (N17.9) Active confirmed Problem Vitamin B>12< deficiency anaemia (21325850) Other vitamin B12 deficiency anemia (D51.8) Active confirmed Problem Nuclear senile cataract (113515311) 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) Active confirmed Problem Primary basal cell carcinoma of right lower limb (disorder) (2610095739423756) Basal cell carcinoma of right lower leg (C44.712) Active confirmed Problem Type II diabetes mellitus without complication (706159463) Diabetes mellitus type 2, diet-controlled (E11.9) Active confirmed Problem Carpal tunnel syndrome (54036789) Carpal tunnel syndrome, bilateral upper limbs (G56.03) Active confirmed Problem Arthralgia of temporomandibular joint (69544838) 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 confirmed Problem Disorder of acoustic nerve (27651718) Acoustic neuroma syndrome, 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 Problem Vestibular schwannom a (025820725) 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) Active confirmed Problem Disease caused by Severe acute respiratory syndrome coronavirus 2 (disorder) (803715659) COVID-19 virus infection (U07.1) Active confirmed Vital Signs Blood pressure diastolic 86 mm Hg 10/04/2024 Height 69 in 10/04/2024 Blood pressure systolic 156 mm Hg 10/04/2024 Weight 243 lbs 10/04/2024 BMI 35.88 kg/m2 10/04/2024 Encounters Encounter Location Date Provider Diagnosis [address] [address] 08/09/2024 Ruben Hoy Frequency R35.[address] [address] 05/30/2024 Ruben Hoy Overweight E66.3 ; Hypertension I10 ; Diabetes mellitus type 2, uncomplicated E11.9 ; Venous stasis I87.8 ; Vestibular schwannoma D33.3 and Encounter for immunization Z23 [address] [address] 07/19/2024 Ruben Hoy Hypertension I10 ; Diabetes mellitus type 2, uncomplicated E11.9 and Dyspnea R06.[address] [address] 10/04/2024 Ruben Hoy Dysuria R30.0 ; Atop ic dermatitis L20.9 and Acute UTI N39.[address] [address] 06/24/2024 Ruben Hoy Hypothyroid E03.[address] [address] 08/05/2024 Ruben Correay [address] [address] 08/09/2024 Ruben Correay [address] [address] 08/12/2024 Ruben David [facility] [address] [place] [address] 08/22/2024 Ruben David Hypertension I10 [facility] [address] [place] [address] 01/14/2024 Ruben Correay [facility] [address] [place] [address] 04/29/2024 Ruben David Diabetes mellitus ty pe 2, uncomplicated E11.9 [facility] [address] [place] [address] 06/17/2024 Ruben David Assessments Encounter Date Diagnosis (ICD Code) Assessment Notes Treatment Notes Treatment Clinical Notes Section Notes 05/30/2024 Overweight (ICD-10 - E66.3) 05/30/2024 Hypertension (ICD-10 - I10) 07/19/2024 Hypertension (ICD-10 - I10) 07/19/2024 Diabetes mellitus type 2, uncomplicated (ICD-10 - E11.9) 08/09/2024 Frequency (ICD-10 - R35.0) 10/04/2024 Dysuria (ICD-10 - R30.0) 10/04/2024 Atopic dermatitis (ICD-10 - L20.9) 04/29/2024 Diabetes mellitus type 2, uncomplicated (ICD-10 - E11.9) 06/24/2024 Hypothyroid (ICD-10 - E03.9) 08/22/2024 Hypertension (ICD-10 - I10) 10/04/2024 Acute UTI (ICD-10 - N39.0) 07/19/2024 Dyspnea (ICD-10 - R06.00) 05/30/2024 Diabetes mellitus type 2, uncomplicated (ICD-10 - E11.9) 05/30/2024 Venous stasis (ICD-10 - I87.8) 05/30/2024 Vestibular schwannoma (ICD-10 - D33.3) 05/30/2024 Encounter for immunization (ICD-10 - Z23) 07/19/2024 Other Continue taking medications as prescribed and monitor BP at home regularly. Plan Of Treatment Pending Test Test Name Order Date CMP (COMPLETE METABOLIC PANEL) 3 CMP (COMPLETE METABOLIC PANEL) 4 UA (URINALYSIS, COMPLETE) 06/21/2023 HEMOGLOBIN A1C (GLYCO) 10/24/2022 HEMOGLOBIN A1C (GLYCO) 05/30/2024 INSULIN, TOTAL 10/24/2022 LIPID PANEL (CHOL/TRIG/HDL/LDL) 10/25/19 23 LIPID PANEL (CHOL/TRIG/HDL/LDL) 05/30/20 24 CBC WITH DIFF 05/30/2024 CBC WITH DIFF 10/24/2022 PSA, PROSTATE-SPECIFIC ANTIGEN 3 PSA, PROSTATE-SPECIFIC ANTIGEN 3 URIC ACID 10/24/2022 URIC ACID 05/30/2024 Urinalysis Microscopic 06/21/2023 URINE CULTURE 12/12/2022 URINALYSIS 12/12/2022 PSA, TOTAL 05/30/2024 High Sensitivity Troponin 07/19/2024 CT Sinus w/o Contrast 09/21/2023 CULTURE URINE 06/21/2023 THYROID PROFILE WITH TSH 07/19/2024 URINE MICROSCOPIC ONLY 12/12/2022 VC VENOUS REFLUX SANDY LMT 05/30/2024 THYROID PANEL (T4/TSH/FREE T3) 3 THYROID PANEL (T4/TSH/FREE T3) 4 THYROID PANEL (T4/TSH/FREE T3) 4 Future Test Test Name Order Date THYROID PANEL (T4/TSH/FREE T3) 5 Insurance Providers Payer Name Payer Address Payer Phone Subscriber Number Group Number Insured Name Patient Relationship to Insured Coverage Start Date Coverage End Date [place]IC[place] [address] [place] [address] [id number] Travis Coburn Self - patient is the insured 7 [employer] SUPPLEMENT [address] [address] [place], [place] [phone] [id number] Travis Coburn Self - patient is the insured 9 Medications Administered Medication Instructions Date of Administration Dosage Notes Cyanocobalamin 11/07/2022 1 mL 1 cc Medical (General) History Medical History History ICD Code Helicobacter pylori [H. pylo ri] as the cause of diseases classified elsewhere B96.81 Irritable bowel syndrome with diarrhea K 58.0 Overweight E66.3 Palpitations R00.2 Acute bronchitis J20.9 Diabetes mellitus type 2, uncomplicated E11.9 COVID-19 virus infection U07.1 Sinus arrhythmia I49.8 Dupuytren's disease M72.0 Psoriatic arthritis L40.50 Hereditary and idiopathic neuropathy, un specified G60.9 Carpal tunnel syndrome, bilateral upper limbs G56.03 Polymyalgia rheumatica M35.3 Vitamin D deficiency E55.9 Diabetes mellitus type 2, diet-controlle d E11.9 TMJ syndrome M26.629 Osteoarthritis of knee M17.9 Vitreous degeneration H43.819 Senile nuclear sclerosis H25.10 Pinguecula, unspecified eye H11.159 Arcus senilis, unspecified eye H18.419 Other migraine, not intractable, without status migrainosus G43.809 Irritable bowel syndrome K58.9 Hyperuricemia E79.0 Hypertriglyceridemia E78.1 Anxiety F41.9 Hypertension I10 Sleep apnea G47.30 Hiatal hernia K44.9 Colitis K52.9 Surgical History Surgery Date(Month/Year) Kyphoplasty- 04/05/23 Dr. Peters Breast Mass excision Hemorrhoidectomy Heart Cath Knee Arthroscopy- Left Rotator Cuff Surgery- Left Colonoscopy Hospitalization History Reason Date(Month/Year) compression fracture L1 03/01
--- OUTSIDE RECORDS SUMMARY | 2024-12-31 21:42 | XMS_ITS | Encounter Summary ---
Author Organization [facility] Address [address] [place] [address] Phone Care Team Providers Care Cylinder Press Feeder Name Role Phone Roman David MD Primary Care Provider [phone] Encounter Details Date Type Department Care Team (Late st Contact Info) Description 10/25/[address] [facility] [address] [place] [address] Conversion, Onbase Social History Tobacco Use Types [...] Description 09/02/2025 1:30 PM EST Office Visit [place] [address] [facility] [address] [place] [address] Ly Villanueva MD [address] [facility] [address], [facility] [address] [place] [address] Scheduled Orders Name Type Priority Associated Diagnoses Orde r Schedule OUTSIDE LAB SCAN Lab Ordered: 10/25/2022 documented as of this encounter Visit Diagnoses Not on filedocumented in this encounter Care Teams Cylinder Press Feeder Relationship Specialty Start Date End Date Roman David MD [address] [facility] [place] [address] PCP - General 12/08/21 documented as of this encounter
--- OUTSIDE RECORDS SUMMARY | 2024-12-31 21:42 | XMS_ITS | Clinical Summary ---
Author Organization [facility] Address [address] [place] [address] Care Team Providers Care Manager Of Tax Name Role Phone Roman David MD Primary Care Provider [phone] Allergies Active Allergy Reactions Criticality Noted Date Comments Penicillins Anaphylaxis High 03/31/2023 Medications vitamin B-12 (CYANOCOBALAMIN) 1000 MCG tablet Take 1 tablet by mouth daily Active Calcium Carb-Cholecalcifero l (CALCIUM 500+D PO) Take 1 capsule by mouth daily Active furosemide (LASIX) 20 MG tablet Take 1 tablet by mouth Twice a Week As needed Monday and Monday Active pantoprazole (PROTONIX) 40 MG tablet Take 1 tablet by mouth daily Active 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 (RHEUMATREX) 2.5 MG chemo tablet Take 5 tablets by mouth once a week mondays Active amitriptyline (ELAVIL) 50 MG tablet Take 1 tablet by mouth nightly Take 1 - 2 tablets by mouth every night Active glimepiride (AMARYL) 4 MG tablet Take 0.5 tablets by mouth every morning (before breakfast) Active irbesartan-hydroCHL OROthiazide (AVALIDE) 300-12.5 MG per tablet Take 1 tablet by mouth daily Active predniSONE (DELTASONE) 2.5 MG tablet Take 1 tablet by mouth daily Active tiZANidine (ZANAFLEX) 4 MG tablet Take 1 tablet by mouth nightly as needed Active melatonin 5 MG TBDP disintegrating tablet Take 1 tablet by mouth nightly Active folic acid (FOLVITE) 1 MG tablet Take 1 tablet by mouth daily Active aspirin 81 MG EC tablet Take 1 tablet by mouth daily Takes only 2 days a week Active ibuprofen (ADVIL;MOTRIN) 200 MG tablet Take 3 tablets by mouth every 6 hours as needed for Pain Active oxyCODONE-acetamino phen (PERCOCET) 2.5-325 MG per tablet Take 1 tablet by mouth every 6 hours as needed for Pain. Active rosuvastatin (CRESTOR) 5 MG tablet Take 1 tablet by mouth Twice a Week Active Active Problems Problem Noted Date Diagnosed Date Age-related osteoporosis wit h current pathological fracture of vertebra with delayed healing 04/05/2023 Age-related osteoporosis wit h current pathological fracture of vertebra 04/05/2023 Family History Medical History Relation Name Comments Cancer Father Heart Disease Father High Blood Pressure Father Depression Mother High Blood Pressure Mother Obesity Mother Relation Name Status Comments Father Mother Social History Tobacco Use Types Packs/Day Years Used Date Smoking Tobacco: Former Cigarettes Smokeless Tobacco: Never Tobacco Cessation:Counseling Given: Not Answered Alcohol Use Standard Drinks/Week Comments Never 0 (1 standard drink = 0.6 oz pur e alcohol) Sex and Gender Information Value Date Recorded Sex Assigned at Not on file Legal Sex Male 10:59 AM EST Gender Identity Not on file Sexual Orientation Not on file Last Filed Vital Signs Vital Sign Reading Time Taken Comments Blood Pressure 135/63 04/05/2023 8:50 AM EDT Pulse 96 04/05/2023 6:17 AM EDT Temperature 36.6 C (97.8 F) 04/05/2023 7:35 AM EDT Respiratory Rate 18 04/05/2023 7:55 AM EDT Oxygen Saturation 96% 04/05/2023 8:50 AM EDT Inhaled Oxygen Concentration - - Weight 105.7 kg (233 lb) 04/05/2023 6:17 AM EDT Height 175.3 cm (5' 9 ) 04/05/2023 6:17 AM EDT Body Mass Index 34.41 04/05/2023 6:17 AM EDT Plan of Treatment Health Maintenance Due Date Last Done Comments Lipids 11/03/1950 Depression Screen 1952 DTaP/Tdap/Td vaccine (1 - Tdap) 1960 Pneumococcal 50+ years Vaccine (1 of 1 - PCV) 11/03/1991 Shingles vaccine (1 of 2) 11/03/1991 Respiratory Syncytial Virus (RSV) or age 60 yrs+ (1 - 1-dose 75+ series) 2016 Annual Wellness Visit (Medicare) 06/05/2023 COVID-19 Vaccine ( season) 2024 11/17/2021, 05/20/2021, 11/17/2020, Additional history exists Flu vaccine (Season Ended) 02/07/202507/26, 04/23/2020, 04/22/2015, Additional history exists Hepatitis A vaccine Aged Out No longe r eligible based on patient's age to complete this topic Hepatitis B vaccine Aged Out No longe r eligible based on patient's age to complete this topic Hib vaccine Aged Out No longer eligi ble based on patient's age to complete this topic Meningococcal (ACWY) vaccine Aged Out No longer eligible based on patient's age to complete this topic Meningococcal B vaccine Aged Out No l onger eligible based on patient's age to complete this topic Polio vaccine Aged Out No longer elig ible based on patient's age to complete this topic Medical Devices Implanted Type Area Deck Molder Device Identifier Shelf Expiration Date Model / Serial / Lot Kyphon Davion Bone Cemet Implanted:Qty: 1 on 04/05/2023 by Nicho Peters MD at [facility] N/A: Ver[employer]_CR 04/08/2025 / / [id number] Description:Ref # [id number] Insurance MEDICARE [employer] MEDICARE SUPP Advance Directives * Full Code (Latest Code Status on File) Date Activated Date Inactivated Comments 04/05/2023 6:10 AM 04/05/2023 11:12 AM Care Teams Manager Of Tax Relationship Specialty Start Date End Date Roman David MD [address] [place] [address] PCP - General Family Medicine 03/30/23
--- OUTSIDE RECORDS SUMMARY | 2024-12-31 21:42 | XMS_ITS | Encounter Summary ---
Author Organization [facility] Address [address] [place] [address] Phone Care Team Providers Care Sql Data Architect Name Role Phone Roman David MD Primary Care Provider [phone] Encounter Details Date Type Department Care Team (Late st Contact Info) Description 06/12/2019 Orders Only [facility] [address] [place] [address] Conversion, Onbase Social History Tobacco Use Types [...] Description 09/02/2025 1:30 PM EST Office Visit [place] [id number] [phone] Ly Villanueva MD [address] [facility], [facility] [address] [place], [place] [phone] Scheduled Orders Name Type Priority Associated Diagnoses Orde r Schedule OUTSIDE LAB SCAN Lab Ordered: 06/12/2019 documented as of this encounter Visit Diagnoses Not on filedocumented in this encounter Care Teams Sql Data Architect Relationship Specialty Start Date End Date Roman David MD [address] [place] [address] PCP - General 12/08/21 documented as of this encounter
--- OUTSIDE RECORDS SUMMARY | 2024-12-31 21:42 | XMS_ITS | Encounter Summary ---
Author Organization [facility] Address [address] [address] Care Team Providers Care Patrol Lady Name Role Phone Roman David MD Primary Care Provider [phone] Encounter Details Date Type Department Care Team (Late st Contact Info) Description 12/21/2023 Abstract [facility] [address] [place] [phone] Angy Weiss RN [address] [place] [address] Social History Tobacco Use Types Packs/Day Years [...] NB OPHT [address] [place] [phone] Tariq Perez DO [address] [place] [address] 07/23/2025 1:00 PM EST Office Visit [facility] [address] [place] [phone] Yudy Montes MD [address] [place] [address] documented as of this encounter Visit Diagnoses Not on filedocumented in this encounter Care Teams Patrol Lady Relationship Specialty Start Date End Date Roman David MD PCP - General Family Medicine 10/20/23 documented as of this encounter
--- OUTSIDE RECORDS SUMMARY | 2024-12-31 21:42 | XMS_ITS | Encounter Summary ---
Author Organization [facility] Address [address] [facility] [place] [address] Care Team Providers Care Merchandising Professor Name Role Phone Roman David MD Primary Care Provider [phone] Encounter Details Date Type Department Care Team (Late st Contact Info) Description 09/08/2017 Abstract [facility] [address] [facility] [place] [address] Ashley Quesada, [facility] [address] [place] [address] Social History Tobacco Use Types Packs/Day Years [...] NB OPHT [address] [place] [phone] Tariq Perez DO [address] [place] [address] 07/23/2025 1:00 PM EST Office Visit [facility] [address] [place] [phone] Yudy Montes MD [address] [place] [address] documented as of this encounter Visit Diagnoses Not on filedocumented in this encounter Care Teams Merchandising Professor Relationship Specialty Start Date End Date Roman David MD PCP - General Family Medicine 10/20/23 documented as of this encounter
--- NOTE | 2024-12-31 22:21 | ED.GENADUL1 ---
HPI HPI - General Adult General Chief complaint: Shortness of Breath/Dyspnea Stated complaint: short of breath Time Seen by Provider: 12/31/24 22:13 Source: patient Mode of arrival: walk-in Limitations: no limitations History of Present Illness HPI narrative: Patient states he lifted his 22 pound dog tonight and felt short of breath. He has had shortness of breath with mild exertion for the last 2 or 3 weeks. He saw his toxicology supervisor Dr. Villanueva at the time and states that his statin dose was going to be increased because his lipid levels were high. Related Data Home Medications ?Medication ?Instructions ?Recorded ?Confirmed aspirin 81 mg tablet,delayed 81 mg PO BID 02/28/23 12/31/24 release (Bobo Low Dose Aspirin) folic acid 1 mg tablet 1 mg PO DAILY 02/28/23 12/31/24 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 sodium 2.5 mg tablet 12.5 mg PO .weekly 02/28/23 12/31/24 pantoprazole 40 mg tablet,delayed 40 mg PO DAILY 02/28/23 12/31/24 release prednisone 2.5 mg tablet 5 mg PO QAM 02/28/23 12/31/24 prednisone 2.5 mg tablet 2.5 mg PO QPM 03/05/23 03/05/23 rosuvastatin 5 mg tablet (Crestor) 5 mg PO DAILY 03/05/23 12/31/24 amitriptyline 25 mg tablet 25 mg PO DAILY 12/31/24 12/31/24 blood sugar diagnostic (OneTouch 12/31/24 12/31/24 Ultra Test strips) carvedilol 6.25 mg tablet mg 12/31/24 cetirizine 10 mg tablet mg 12/31/24 glimepiride 1 mg tablet mg 12/31/24 irbesartan 300 mg tablet mg 12/31/24 montelukast 10 mg tablet mg 12/31/24 rosuvastatin 10 mg tablet mg 12/31/24 Allergies Allergy/AdvReac Type Severity Reaction Status Date / Time PCN AdvReac Intermediate unknown Uncoded 12/31/24 21:43 Opioid HPI Opioid Management Most Recent Opioid Data: Last Pain Scale 2 03/07/23, 10:44 Last Pain Intensity 0 03/01/23, 09:48 Review of Systems ROS Status of ROS 10 or more systems reviewed and unremarkable except as noted in history and below PFSH PFS Medical History Psoriatic arthritis ?L40.50 - Arthropathic psoriasis, unspecified (ICD-10) Polymyalgia rheumatica ?M35.3 - Polymyalgia rheumatica (ICD-10) IBS (irritable bowel syndrome) ?K58.9 - 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 (ICD-10) Kidney stone ?N20.0 - Calculus of kidney (ICD-10) Rotator cuff arthropathy of left shoulder ?M12.812 - Other specific arthropathies, not elsewhere classified, left shoulder (ICD-10) Intractable back pain ?M54.9 - Dorsalgia, unspecified (ICD-10) Ambulatory dysfunction (02/28/23) ?R26.2 - Difficulty in walking, not elsewhere classified (ICD-10) Hypertension ?I10 - Essential (primary) hypertension (ICD-10) Diabetes ?E11.9 - Type 2 diabetes mellitus without complications (ICD-10) Surgical History H/O colonoscopy ?Z98.890 - Other specified postprocedural states (ICD-10) Family History Father Family history of CHF (congestive heart failure) Family history of cancer Family history of hypertension Family history of myocardial infarction Mother Family history of hypertension Social History Smoking status: Never smoker Second hand tobacco smoke exposure: No Non-prescribed substance use: denies use Previous occupational history: retired Known occupational exposures/hazards: No Highest level of school completed/degree received: high school graduate Do you want help with school or training: No Are you now , , , , never or living with a partner: In a typical week, how many times do you talk on the telephone with family, friends, or neighbors: twice per week How often do you get together with friends or relatives: once per week How often do you attend evangelical or voodoo services: 4 or more times per year Do you belong to any clubs or organizations such as evangelical groups unions, fraImmuVen or athletic groups, or school groups: yes Total score: 4 Score interpretation: A score of greater than or equal to 2 indicates the lowest level of social isolation. Little interest or pleasure in doing things: not at all Feeling down, depressed, or hopeless: not at all Feel stressed/tense/nervous/anxious/difficulty sleeping: not at all Due to disability, difficulty making decisions: No Do you think of yourself as: straight/heterosexual Gender Identity: male Exam Narrative Exam Narrative: Patient is obese in appearance. His vitals are stable and his oxygen saturation is well-preserved. He is not dyspneic at rest. He can lie flat on the cart without obvious discomfort. On the monitor he is in sinus mechanism with PACs noted and occasional PVCs. No malignant arrhythmias are seen. HEENT exam is normal to inspection. Neck is supple. Lung sounds are clear to auscultation bilaterally with good air entry. Heart has regular rate and rhythm. Abdomen is protuberant, soft nontender with no fluid wave. Lower extremities warm and dry. Speech and mentation are clear and intact. There is no facial asymmetry. He moves all extremities actively. Constitutional Vital Signs, click to edit/add: Last Vital Signs Temp 98.1 F 12/31/24 21:39 Pulse 70 01/01/25 00:31 Resp 20 01/01/25 00:31 BP 146/80 H 01/01/25 00:31 Pulse Ox 95 01/01/25 00:31 O2 Del Method Room Air 12/31/24 22:52 Course Vital Signs Vital signs: Vital Signs Temperature 98.1 F 12/31/24 21:39 Pulse Rate 69 12/31/24 21:39 Respiratory Rate 20 12/31/24 21:39 Blood Pressure 130/70 12/31/24 21:39 Pulse Oximetry 96 12/31/24 21:39 Oxygen Delivery Method Room Air 12/31/24 21:39 Temperature 98.1 F 12/31/24 21:39 Pulse Rate 70 01/01/25 00:31 Respiratory Rate 20 01/01/25 00:31 Blood Pressure 146/80 H 01/01/25 00:31 Pulse Oximetry 95 01/01/25 00:31 Oxygen Delivery Method Room Air 12/31/24 22:52 Medical Decision Making [facility] Narrative Medical decision making narrative: The twelve-lead EKG is interpreted by me and shows sinus rhythm with left axis deviation and no conduction defect or ischemic change. BNP and troponins are normal. The rest of the workup is benign chest x-ray is nondiagnostic also. I do not suspect heart failure, pulmonary embolism or pneumonia to be a cause for this patient's shortness of breath. He is likely quite deconditioned with poor exercise tolerance. He is advised outpatient follow-up with his PCP and toxicology supervisor for further management and return for worsening symptoms. Lab Data Labs: Lab Results 12/31/24 Range/Units 22:45 WBC 9.5 (4.0-11.0) 10^3/uL RBC 4.16 L (4.70-6.10) 10^6/uL Hgb 13.1 L (14.0-18.0) g/dL Hct 38.7 L (42.0-54.0) % MCV 93.0 (80.0-94.0) fL MCH 31.5 (25.9-34.0) pg MCHC 33.9 (29.9-35.2) g/dL RDW 13.9 (11.0-15.0) % Plt Count 165 (150-450) 10^3/uL MPV 10.9 (9.5-13.5) fL Neut % (Auto) 72.6 (43.0-75.0) % Lymph % (Auto) 18.0 L (20.5-60.0) % [place] % (Auto) 7.6 (1.7-12.0) % Eos % (Auto) 0.8 L (0.9-7.0) % Baso % (Auto) 0.4 (0.2-2.0) % Neut # (Auto) 6.9 H (1.4-6.5) 10^3/uL Lymph # (Auto) 1.7 (1.2-3.8) 10^3/uL [place] # (Auto) 0.7 (0.3-0.8) 10^3/uL Eos # (Auto) 0.1 (0.0-0.7) 10^3/uL Baso # (Auto) 0.0 (0.0-0.1) 10^3/uL Abs Immat Gran (auto) 0.06 H (0.00-0.03) 10^3/uL Imm/Tot Granulo (auto) 0.6 H (0.0-0.5) % D-Dimer 0.59 (<=0.59) mg/L FEU Sodium 140 (136-145) mmol/L Potassium 4.3 (3.5-5.1) mmol/L Chloride 105 (98-107) mmol/L Carbon Dioxide 30.5 (21.0-32.0) mmol/L Anion Gap 8.8 BUN 26.0 H (7.0-18.0) mg/dL Creatinine 1.24 (0.70-1.30) mg/dL Est GFR ( Amer) >60 (>=60 mL/min/1.73m^2) Est GFR (Non-Af Amer) 56 L (>=60 mL/min/1.73m^2) BUN/Creatinine Ratio 21.0 Glucose 134 H (74-106) mg/dL Calcium 9.2 (8.5-10.1) mg/dL Total Bilirubin 0.3 (0.2-1.0) mg/dL Direct Bilirubin 0.1 (0.0-0.2) mg/dL AST 10 L (15-37) U/L ALT 21 (16-63) U/L Alkaline Phosphatase 135 H (46-116) U/L Troponin I High Sens 8.5 (4.0-76.1) pg/mL NT-Pro-B Natriuret Pep 192.0 (<=1800.0) pg/mL Total Protein 6.5 (6.4-8.2) g/dL Albumin 3.2 L (3.4-5.0) g/dL Globulin 3.3 g/dL Albumin/Globulin Ratio 1.0 TSH & Free T4 Interp 2.525 (0.358-3.740) uIU/mL Discharge Plan Discharge Chief Complaint: Shortness of Breath/Dyspnea Clinical Impression: Dyspnea Qualifiers: Dyspnea type: dyspnea on exertion Qualified Code(s): R06.09 - Other forms of dyspnea Patient Disposition: Home, Self-Care Time of Disposition Decision: 00:33 Condition: Good Mode of Transportation: Private Vehicle Prescriptions / Home Meds: No Action carvedilol 6.25 mg tablet cetirizine 10 mg tablet (DME) OneTouch Ultra Test Strip MISCELLANEOUS glimepiride 1 mg tablet montelukast 10 mg tablet irbesartan 300 mg tablet rosuvastatin 10 mg tablet amitriptyline 25 mg tablet 25 mg PO DAILY 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 sodium 2.5 mg tablet 12.5 mg PO .weekly Patient Comments: takes on monday pantoprazole 40 mg tablet,delayed release (DR/EC) 40 mg PO DAILY prednisone 2.5 mg tablet 5 mg PO QAM aspirin [Bobo Low Dose Aspirin] 81 mg tablet,delayed release (DR/EC) 81 mg PO BID folic acid 1 mg tablet 1 mg PO DAILY prednisone 2.5 mg tablet 2.5 mg PO QPM rosuvastatin [Crestor] 5 mg tablet 5 mg PO DAILY Rx Instructions: On tuesdays and monday Print Language: Urdu Instructions: Dyspnea (ED) Additional Instructions: Follow-up with your PCP and toxicology supervisor for further workup. Return for worsening symptoms. Referrals: Roman David MD [Primary Care Provider, Family Practice] - 1 week Discharge Date/Time: 01/01/25 00:42
--- NOTE | 2024-12-31 22:22 | ECG_ITS ---
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 Measurements Intervals [place] Rate: 77 P: 73 KS: 168 QRS: -47 QRSD: 102 T: 62 QT: 364 QTc: 396 Interpretive Statements 1100 Sinus rhythm 1470 with occasional supraventricular premature complexes 2630 Left anterior fascicular block 9150 abnormal ECG No previous ECG available for comparison Electronically Signed On 01-01-2025 19:57:48 EDT by DEONDRE RM M.D.
[2024-12-31 22:53] LABS: Basophils Percent Auto 0.4 % (0.2-2.0); Eosinophils Absolute Auto 0.1 10^3/uL (0.0-0.7); Eosinophils Percent Auto 0.8 % (0.9-7.0); Hematocrit 38.7 % (42.0-54.0); Hemoglobin 13.1 g/dL (14.0-18.0); Immature Granulocytes Abs Auto 0.06 10^3/uL (0.00-0.03); Immature Granulocytes Pct Auto 0.6 % (0.0-0.5); Lymphocytes Absolute Auto 1.7 10^3/uL (1.2-3.8); Mean Corpuscular HGB Conc 33.9 g/dL (29.9-35.2); Mean Corpuscular Hemoglobin 31.5 pg (25.9-34.0); Mean Platelet Volume 10.9 fL (9.5-13.5); Monocytes Absolute Auto 0.7 10^3/uL (0.3-0.8); Monocytes Percent Auto 7.6 % (1.7-12.0); Neutrophils Absolute Auto 6.9 10^3/uL (1.4-6.5); Neutrophils Percent Auto 72.6 % (43.0-75.0); Platelet Count 165 10^3/uL (150-450); Red Blood Count 4.16 10^6/uL (4.70-6.10); Red Cell Distribution Width 13.9 % (11.0-15.0); White Blood Count 9.5 10^3/uL (4.0-11.0)
[2024-12-31 23:08] LABS: D Dimer 0.59 mg/L FEU (<=0.59)
[2024-12-31 23:10] LABS: Alanine Aminotransferase 21 U/L (16-63); Albumin Level 3.2 g/dL (3.4-5.0); Alkaline Phosphatase 135 U/L (46-116); Anion Gap 8.8; Aspartate Amino Transferase 10 U/L (15-37); Bilirubin Total 0.3 mg/dL (0.2-1.0); Calcium 9.2 mg/dL (8.5-10.1); Carbon Dioxide 30.5 mmol/L (21.0-32.0); Chloride 105 mmol/L (98-107); Estimated GFR (African America >60 (>=60 mL/min/1.73m^2); Estimated GFR (Non-African Ame 56 (>=60 mL/min/1.73m^2); Globulin 3.3 g/dL; Glucose 134 mg/dL (74-106); Potassium 4.3 mmol/L (3.5-5.1); Sodium 140 mmol/L (136-145); Total Protein 6.5 g/dL (6.4-8.2)
[2024-12-31 23:11] LABS: Bilirubin Direct 0.1 mg/dL (0.0-0.2)
[2024-12-31 23:23] LABS: TSH W/ REFLEX FT4 2.525 uIU/mL (0.358-3.740); Troponin I High Sensitivity 8.5 pg/mL (4.0-76.1)
[2025-01-01] VITALS: PULSE 68; O2SAT 98
[2025-01-01 00:01] VITALS: BP 153/71; PULSE 66; O2SAT 97
[2025-01-01 00:10] VITALS: PULSE 63; O2SAT 97
[2025-01-01 00:20] VITALS: PULSE 65; O2SAT 97
[2025-01-01 00:30] VITALS: PULSE 62; O2SAT 98
[2025-01-01 00:31] VITALS: BP 146/80; PULSE 70; O2SAT 95
== END 2025-01-01 00:42 | disposition home or self-care (01) ==
PROVIDERS: Emergency Provider Emergency Medicine; PCP Family Medicine
DX: R06.09 Other forms of dyspnea (principal)
CPT/HCPCS: 36415; 71046; 80048; 80076; 83880; 84443; 84484; 85025; 85378; 93005; 99285

== ENCOUNTER 2025-03-20 10:50 | Outpatient (OUT) | payer MEDICARE, OTHER, SELFPAY ==
--- OUTSIDE RECORDS SUMMARY | 2024-08-22 12:30 | XMS_ITS ---
Author Organization [facility] [place] Address [address] [place] [address] Care Team Providers Care Valet Service Attendant Name Role Phone Ruben David Primary Care Provider REASON FOR VISIT refill Medications Medication SIG (Take, Route, Frequency, Duration) Notes Start Date End Date Status Coreg 6.25 MG 1 tablet with food O rally tid for 30 days 08/31/2023 Active Encounters Encounter Location Date Provider Diagnosis [facility] [address] [place] [address] 08/22/2024 Ruben David Hypertension I10 Assessments Encounter Date Diagnosis (ICD Code) Assessment Notes Treatment Notes Treatment Clinical Notes Section Notes 08/22/2024 Hypertension (ICD-10 - I10) Plan Of Treatment Medication Medication Name Sig Start Date Stop Date Notes Coreg 6.25 MG 1 tablet with food Orally tid for 30 days Progress Notes * ALMAS Travis GDOB: [birth year] (83 yo M)Acc No.[id number]:08/22/2024 Patient: Travis SHEIKH :1940 A ge:83 Y S ex:Male Address:[place], [address] * Refills Refill Coreg Tablet, 6.25 MG, Orally, 90 Tablet, 1 tablet with food, tid, 30 days, Refills=11 * true * Date: Generated for Printi ana/Faabig/eTransmitting on: 0 03/20/2025 10:58 AM EDT
--- OUTSIDE RECORDS SUMMARY | 2024-10-04 05:45 | XMS_ITS ---
Author Organization [facility] in [place] Address [address] [place] [address] Care Team Providers Care Finisher Machine Name Role Phone Ruben David Primary Care Provider [phone] Allergies Allergen (clinical drug ingredient) Drug/Non Drug [...] W/U Status Risk Notes Problem Atopic dermatitis (19040238) Atopic dermatitis (L20.9) Active confirmed Vital Signs Blood pressure systolic 156 mm Hg 10/05/19 25 Blood pressure diastolic 86 mm Hg 025 Height 69 in 10/04/2024 Weight 243 lbs 10/04/2024 BMI 35.88 kg/m2 10/04/2024 Encounters Encounter Location Date Provider Diagnosis [facility] [address] [place] [address] 10/04/2024 Ruben Hoy Dysuria R30.0 ; Atop [...] Travis COBURN GDOB: [birth year] (83 yo M)Acc No.[id number]:10/04/2024 Progress Note Patient: Travis SHEIKH Provider: Ralf David ([facility])MD :1940 A ge:83 Y S ex:Male Date:10/04/2024 Address:[address] [place] [address] , [place], [id number] Check In:09:31 AM ESTCheck O ut:10:09 AM [...] ca Modified On:04/05/2023U Status:confirmed R00.2 Palpitations Modified On:10/20/2022U Status:confirmed I10 Hypertension Modified On:10/02/2023U Status:confirmed F41.9 Anxiety Modified On:10/20/2022U Status:confirmed G47.30 Sleep apnea Modified On:08/31/2023U Status:confirmed M17.9 Osteoarthritis of kn ee Modified On:10/20/2022U Status:confirmed K44.9 Hiatal hernia Modified On:10/20/2022U Status:confirmed L40.50 Psoriatic arthritis Modified On:11/22/2022U Status:confirmed E55.9 Vitamin D deficiency Modified On:10/20/2022U Status:confirmed E78.1 Hypertriglyceridemia Modified On:10/20/2022U Status:confirmed K52.9 Colitis Modified On:10/20/2022U Status:confirmed J20.9 Acute bronchitis Modified On:07/13/2023U Status:confirmed E79.0 Hyperuricemia Modified On:10/20/2022U Status:confirmed K58.9 Irritable bowel synd tino Modified On:04/25/2023U Status:confirmed E11.9 Diabetes mellitus ty pe 2, [...] fracture Modified On:04/25/2023U Status:confirmed E11.9 DM2 (diabetes [facility], type 2) Modified On:04/05/2023U Status:confirmed N17.9 Acute kidney failure Modified On:06/14/2023U Status:confirmed C44.712 Basal cell carcinoma of right lower leg Modified On:08/30/2023U Status:confirmed H65.90 Serous otitis media Modified On:10/20/2023U Status:confirmed R26.81 Unsteady gait Modified On:10/12/2023U Status:confirmed H90.3 Sensorineural hearin g loss, bilateral [...] once daily , Notes to Pharmacist: Dx E11.9Ibuprofen 600 MG Tablet TAKE 1 TABLET [...] once daily , Notes to Pharmacist: Shanthi E11.9Taking Ibuprofen 600 MG Tablet TAKE 1 [...] once daily , Notes to Pharmacist: Shanthi E11.9DiscontinuedCiprofloxacin HCl 500 MG Tablet 1 tablet [...] L ab: UA DIP NONAUTO WO MICRO (93085) - IN OFFICE (Collection Date & Time [...] WO MICRO * Preventive Medicine: Screenings/Counseling: B [place] ACTION PLAN Above Normal BMI Follow-up D [...] 10/04/2024 Generated for Printi ng/Faxing/eTransmitting on: 0 03/20/2025 10:56 AM EDT History and Physical Notes * HPI [...]
--- OUTSIDE RECORDS SUMMARY | 2025-02-26 11:15 | XMS_ITS ---
Author Organization [facility] in [place] Address [address] [place] [address] Care Team Providers Care Stone Driller Name Role Phone Ruben David Primary Care Provider Allergies Allergen (clinical drug ingredient) Drug/Non Drug Allergy documented on EMR Reaction Allergy Type Onset Date Status Substance with sulfonamide structure and antibacterial mechanism of action (substance) Sulfa Antibiotics unknown Drug Allergy Active Penicillin anaphylaxis Drug Allergy Acti ve REASON FOR VISIT Redness around ankle Medications Medication SIG (Take, Route, Frequency, Duration) Notes Start Date End Date Status Pantoprazole Sodium 40 mg TAKE 1 TABLET BY MOUTH ONCE DAILY for 90 Active OneTouch Ultra Blue Test - Use one strip in vitro to test glucose daily DX E11.9 for 90 days Active OneTouch Delica Plus [id number] - Use 1 lancet to poke finger once daily DX E11.9 for 90 days Active Montelukast Sodium 10 MG TAKE 1 TABLET B Y MOUTH EVERY DAY for 30 Active MiraLax 17 GM/SCOOP 1 scoop mixed with 8 ounces of fluid Orally Once a day- twice as needed Active Methotrexate Sodium 2.5 MG as directed O rally 3 once weekly Active Irbesartan 300 MG TAKE 1 TABLET BY KIET TH EVERY DAY for 30 Active Ibuprofen 600 MG TAKE 1 TABLET BY KIET TH EVERY 6 HOURS NEEDED FOR MODERATE PAIN FOR 10 DAYS Oral for 10 days Active Glucose Meter Test - Use as directed onc e daily for 90 days Dx E11.9 Active Glucometer - (One-Touch Delica Plus) & Lancet Device - tid Active Glimepiride 2 MG Take 1 tablet Orally every morning and 1/2 tablet at HS for 90 days Active Folic Acid 1 MG 1 tablet Orally Once a day Active Doxycycline Monohydrate 100 MG 1 capsule Orally bid for 10 days 10/04/2024 Active Crestor 5 MG 1 tablet Orally Once a day Active CPAP Supplies -- Mask and Tubing Active CPAP - use as directed Acti ve Coreg 6.25 MG 1 tablet with food Orally tid for 30 days Active Clindamycin Phosphate 1 % 1 application Externally bid 05/30/2024 Active Cholecalciferol 125 MCG (5000 UT) as directed Orally Active Cetirizine HCl 10 MG TAKE 1 TABLET BY MO UT EVERY DAY for 30 Active Aspirin 81 MG 1 tablet Orally Once a day Active predniSONE 2.5 MG 1 tablet with food o r milk Orally Once a day Active Triamcinolone Acetonide 0.1 % 1 application Externally bid 02/26/2025 Active Doxycycline Monohydrate 100 MG 1 tablet Orally bid for 10 days 02/26/2025 Active Amitriptyline HCl 50 mg TAKE 1 TO 2 TABL ETS BY MOUTH EVERY NIGHT for 90 Active Social History Tobacco Use: Social History Observation Description Date Details (start date - stop date) Former Smoker NA - NA Tobacco Use/Smoking Question Answer Notes Patient is a former smoker Problems Problem Type SNOMED Code ICD Code Onset Dates Problem Status W/U Status Risk Notes Problem Cellulitis ([id number]) Cellulitis (L03.90) Active confirmed Vital Signs Blood pressure systolic 150 mm Hg 02/27/20 25 Blood pressure diastolic 82 mm Hg 025 Height 69 in 02/26/2025 Weight 233 lbs 02/26/2025 BMI 34.4 kg/m2 02/26/2025 Encounters Encounter Location Date Provider Diagnosis [facility] [address] [place] [address] 02/26/2025 Ruben Hoy Cellulitis L03.9 0 Assessments Encounter Date Diagnosis (ICD Code) Assessment Notes Treatment Notes Treatment Clinical Notes Section Notes 02/26/2025 Cellulitis (ICD-10 - L03.90) Plan Of Treatment Medication Medication Name Sig Start Date Stop Date Notes Triamcinolone Acetonide 0.1 % 1 application Externally bid 02/26/2025 Doxycycline Monohydrate 100 MG 1 tablet Orally bid for 10 days 02/26/2025 Progress Notes * Travis COBURN GDOB: [birth year] (84 yo M)Acc No.[id number]:02/26/2025 Progress Note Patient: Travis SHEIKH Provider: Ralf David ([facility])MD :1940 A ge:84 Y S ex:Male Date:02/26/2025 Address:[address] [place] [address], [place], [id number] Check In:03:10 PM ESTCheck O ut:03:59 PM EST Subjective: * Chief Complaints: * R edness around ankle * HPI: G eneral: R ankle with area of erythma - celulitis?. 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 Modified On:10/20/2022U Status:confirmed K44.9 Hiatal hernia Modified On:10/20/2022 Status:confirmed L40.50 Psoriatic arthritis Modified On:11/22/2022U Status:confirmed E55.9 Vitamin D deficiency Modified On:10/20/2022U Status:confirmed E78.1 Hypertriglyceridemia Modified On:10/20/2022U Status:confirmed K52.9 Colitis Modified On:10/20/2022U Status:confirmed J20.9 Acute bronchitis Modified On:07/13/2023U Status:confirmed E79.0 Hyperuricemia Modified On:10/20/2022U Status:confirmed K58.9 Irritable bowel synd tino Modified On:04/25/2023U Status:confirmed E11.9 Diabetes mellitus ty pe 2, uncomplicated Modified On:08/31/2023U Status:confirmed I49.8 Sinus arrhythmia Modified On:10/20/2022 Status:confirmed H43.819 Vitreous degeneratio n Modified On:10/20/2022U [...] fracture Modified On:04/25/2023U Status:confirmed E11.9 DM2 (diabetes [facility], type 2) Modified On:04/05/2023U Status:confirmed N17.9 Acute kidney failure Modified On:06/14/2023U Status:confirmed C44.712 Basal cell carcinoma of right lower leg Modified On:08/30/2023U Status:confirmed H65.90 Serous otitis media Modified On:10/20/2023U Status:confirmed R26.81 Unsteady gait Modified On:10/12/2023 Status:confirmed H90.3 Sensorineural hearin g loss, bilateral Modified On:12/28/2023U Status:confirmed 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, right Modified On:02/08/2024U Status:confirmed I87.8 Venous stasis Modified On:05/30/2024U Status:confirmed 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 Modified On:05/30/2024U Status:confirmed H26.9 Cataract Modified On:06/26/2024 Status:confirmed L20.9 Atopic dermatitis Modified On:10/04/2024U Status:confirmed L03.90 Cellulitis Modified On:02/26/2025 Status:confirmed * Medical History: * Surgical History: [...] P atient is a f ormer smoker * Medications: T akingAmitriptyline HCl 50 mg [...] Tablet 1 tablet Orally Once a day Doxycycline Monohydrate 100 MG Capsule 1 capsule Orally bid Folic Acid 1 MG Tablet 1 tablet Orally Once a day Glimepiride 2 MG Tablet Take 1 tablet Orally every morning and 1/2 tablet at HS Glucometer - - (One-Touch Delica Plus) & [...] TAKE 1 TABLET BY MOUTH EVERY DAY OneTouch Delica Plus [id number](Lancets) - Miscellaneous Use 1 lancet to poke finger once daily DX E11.9 OneTouch Ultra Blue Test(Glucose Blood) - Strip Use one strip in vitro to test glucose daily DX E11.9 Pantoprazole Sodium 40 mg Tablet Delayed Release TAKE 1 TABLET BY MOUTH ONCE DAILY predniSONE 2.5 MG Tablet 1 tablet with food or milk Orally Once a day Medication List reviewed and reconciled with the patientTaking Amitriptyline HCl 50 mg Tablet TAKE 1 [...] 1 tablet Orally Once a day Taking Doxycycline Monohydrate 100 MG Capsule 1 capsule Orally bid Taking Folic Acid 1 MG Tablet 1 tablet Orally Once a day Taking Glimepiride 2 MG Tablet Take 1 tablet Orally every morning and 1/2 tablet at HS Taking Glucometer - - (One-Touch Delica Plus) [...] 1 TABLET BY MOUTH EVERY DAY Taking OneTouch Delica Plus [id number](Lancets) - Miscellaneous Use 1 lancet to poke finger once daily DX E11.9 Taking OneTouch Ultra Blue Test(Glucose Blood) - Strip Use one strip in vitro to test glucose daily DX E11.9 Taking Pantoprazole Sodium 40 mg Tablet Delayed Release TAKE 1 TABLET BY MOUTH ONCE DAILY Taking predniSONE 2.5 MG Tablet 1 tablet with food or milk Orally Once a day Medication List reviewed and reconciled with the patient * Allergies: P enicillin: anaphylaxis - Criticality HighSulfa Antibiotics: unknown - Criticality Highno[Allergies Verified] Objective: * Vitals: W t:233lbs, Ht: 69 in, BP:150/82mm Hg, BMI:34.4Index, Ht-cm: 175.26 cm, Wt-k.69 kg. * Examination: A bdomen Exam:: R ankle with area of erythema - likely cellulitis. Assessment: * Assessment: 1. Carlton reynolds - L03.90 (Primary) Plan: * Treatment: * Procedure Codes: * * Sign off status: Completed Visit Status: C HK (Check Out) true * Provider: Ralf David ([facility])MD Date: 0 02/26/2025 Generated for Arely perez/Erica/Slimitting on: 0 03/20/2025 10:56 AM EDT History and Physical Notes * HPI (History of Present Illness) Category Sub-Category Detail Notes Category Not es General R ankle with ar ea of erythma - celulitis? Examination Category Sub-Category Detail Notes Category Not es Abdomen Exam: R ankle with a torri of erythema - likely cellulitis
--- OUTSIDE RECORDS SUMMARY | 2025-02-28 05:44 | XMS_ITS ---
Author Organization [facility] in [place] Address [address] [place] [address] Care Team Providers Care Billing Spec Name Role Phone Ruben David Primary Care Provider REASON FOR VISIT update Medications Medication SIG (Take, Route, Fr equency, Duration) Notes Start Date End Date Status levoFLOXacin 750 MG 1 tablet Orally Once a day for 10 day(s) 02/28/2025 Active Encounters Encounter Location Date Provider Diagnosis [facility] [address] [facility] [address] 02/28/2025 Ruben David Cellulitis L03.90 Assessments Encounter Date Diagnosis (ICD Code) Assessment Notes Treatment Notes Treatment Clinical Notes Section Notes 02/28/2025 Cellulitis (ICD-10 - L03.90) Plan Of Treatment Medication Medication Name Sig Start Date Stop Date Notes levoFLOXacin 750 MG 1 tablet Orally Once a day for 10 day(s) 02/28/2025 Doxycycline Monohydrate 100 MG 1 tablet Orally bid 025 Progress Notes * Travis COBURN GDOB: [birth year] (84 yo M)Acc No.[id number]:02/28/2025 Patient: Campbell MUÑOZ Travis Perry :1940 A ge:84 Y S ex:Male Address:[place], [address] * Refills Stop Doxycycline Monohydrate Tablet, 100 MG, Orally, 1 tablet, bid Start levoFLOXacin Tablet, 750 MG, Orally, 10, 1 tablet, Once a day, 10 day(s) * true * Date: Generated for Arely perez/Erica/Arnold on: 0 03/20/2025 10:58 AM EDT
--- OUTSIDE RECORDS SUMMARY | 2025-03-18 11:00 | XMS_ITS | Encounter Summary ---
Author Organization [facility] Address [address] [place] [address] Care Team Providers Care Hvac Engineering Technician Name Role Phone Roman David MD Primary Care Provider [phone] Reason for Visit * Reason Comments Follow-up 6 month follow up Encounter Details Date Type Department Care Team (Late st Contact Info) Description 03/18/2025 11:00 AM EDT Follow-Up [facility] Rheumatology [address] [place] [address] Luis Daniel Brunner MD [address] [facility] [place] [address] Psoriatic arthropathy (CMS/HCC) (Primary Dx); PMR (polymyalgia rheumatica); 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; 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 Social History Tobacco Use Types Packs/Day Years Used Date Smoking Tobacco: Former Cigarettes Smokeless Tobacco: Never Tobacco Cessation:Counseling Given: Not Answered PHQ-2 Answer Date Recorded Patient Health Questionnaire-2 Score 0 03/18/2025 [place] Safety & Environment Answer Date Rec orded Fear of Current or Ex-Partner Not on file Emotionally Abused Not on file 08/31/2023 Physically Abused Not on file 08/31/2023 Sexually Abused Not on file 08/31/2023 Physically or Sexually Abused Not on file Sex and Gender Information Value Date Recorded Sex Assigned at Male 03/18/2025 10:48 AM EDT Legal Sex Male 9:47 PM EDT Gender Identity Male 03/18/2025 10:48 AM EDT Sexual Orientation Heterosexual or Straight 03/2025 10:48 AM EDT documented as of this encounter Last Filed Vital Signs Vital Sign Reading Time Taken Comments Blood Pressure 136/78 03/18/2025 10:50 AM EDT Pulse 80 03/18/2025 10:50 AM EDT Temperature - - Respiratory Rate - - Oxygen Saturation - - Inhaled Oxygen Concentration - - Weight 116 kg (256 lb) 03/18/2025 10:50 AM EDT Height 175.3 cm (5' 9 ) 03/18/2025 10:50 AM EDT Body Mass Index 37.8 03/18/2025 10:50 AM EDT documented in this encounter Functional Status documented as of this encounter Progress Notes * Luis Daniel Brunner MD - 03/18/2025 11:00 AM EDT Subjective Patient ID: Travis Coburn is a 84 y.o. male who presents for Follow-up (6 month follow up) HPI Mr. Travis Coburn is a 81 y.o. 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 Patient was last seen in the clinic on 09/10/24 where decreasing the dosage of prednisone to 2.5 mg daily was discussed. Patient states that when he decreased the dose, he was experiencing increase joint stiffness and swelling so he increased his dosage back to 5 mg. He takes 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 7.5 mg (2.5 mg x 3 tablets), and is tolerating it well with no side effects. He is compliant with folic acid. He states that he is in good health overall and is able to continueto participate in his daily activities including golf without any issues. Additionally patient is following with nephrology to monitor his renal function. Currently his kidney function is stable. He follows with cardiology for fatigue and dyspnea. Patient has also been following with ENT for recently diagnosed right acoustic neuroma. Associated symptoms include tinnitus,difficulty with balance, hearing loss, and dizziness. Currently they are going to continue to monitor him with MRI every 6 months. 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 He has a history of mouth sores [...] is not nervous/anxious. Objective Visit Vitals BP 136/78 (BP Location: Left arm, Patient Position: Sitting) Pulse 80 Ht 1.753 m (5' 9 ) Wt 116 kg (256 lb) BMI 37.80 kg/m?? Smoking Status Former BSA 2.38 m?? Physical Exam Vitals reviewed. Constitutional: Appearance: Normal [...] and prednisone 5 mg daily and leucovorin. Plan: - Continue 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 7.5 mg total (2.5 mg x3 tablets) weekly and folic acid supplementation - Maintain 5 mg prednisone with potential to decrease to 4 mg down the line as tolerated - Routine CBC and CMP ordered today - Previously [...] 1. Psoriatic arthropathy (CMS/HCC) 2. PMR (polymyalgia rheumatica) 3. 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 shelter systemic steroid user DEXA bone density Follow-up in 6 months for routine evaluation Tariq Jesus MS4 [facility] 03/18/2025 As the teaching physician, I have personally performed or re-performed the history of the present illness, physical exam, and medical decision-making activities of the encounter and verified the medical student's documentation. 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 Expected: 03/18/2025, Expires: 03/18/2026 documented as of this encounter Results * (ABNORMAL) Comprehensive metabolic panel (03/18/2025 2:00 PM EDT) Sodium 136 136 - 145 mmol/L 03/18/2025 5:36 PM EDT [facility] ([facility]) Potassium 4.2 3.5 - 5.1 mmol/L 03/18/2025 5:36 PM EDT [facility] ([facility]) Chloride 101 98 - 107 mmol/L 03/18/2025 5:36 PM EDT [facility] ([facility]) CO2 29 21 - 31 mmol/L 03/18/2025 5:36 PM EDT [facility] ([facility]) Anion Gap 10 7 - 20 mmol/L 03/18/2025 5:36 PM EDT [facility] ([facility]) BUN 19 7 - 25 mg/dL 03/18/2025 5:36 PM EDT [facility] ([facility]) Creatinine 1.13 0.70 - 1.30 mg/dL 03/18/2025 5:36 PM EDT [facility] ([facility]) BUN/Creatinine Ratio 16.8 03/2025 5:36 PM EDT [facility] ([facility]) Glucose 113(H) 70 - 100 mg/dL 03/18/2025 5:36 PM EDT [facility] ([facility]) Calcium 9.6 8.6 - 10.3 mg/dL 03/18/2025 5:36 PM T [facility] ([facility]) AST 22 13 - 39 U/L 03/18/2025 5:36 PM EDT [facility] ([facility]) ALT (SGPT) 21 7 - 52 U/L 03/18/2025 5:36 PM T [facility] ([facility]) Alkaline Phosphatase 86 34 - 104 U/L 03/18/2025 5:36 PM T [facility] ([facility]) Total Protein 7.2 6.0 - 8.3 g/dL 03/18/2025 5:36 PM T [facility] ([facility]) Albumin 4.3 3.5 - 5.7 g/dL 03/18/2025 5:36 PM T [facility] ([facility]) Total Bilirubin 0.8 0.3 - 1.0 mg/dL 03/18/2025 5:36 PM T [facility] ([facility]) eGFR 64.5 >60.0 mL/min/1. 73m*2 03/18/2025 5:36 PM T [facility] ([facility]) Comment:[facility] s estimated glomerular filtration rate (eGFR) will no longer include consideration of race in its calculation. The National [employer] s eGFR Task Force developed new recommendations for [...] disproportionately affect any one group of individuals. Blood Venous blood specimen / Unknown Venipuncture / Unknown 03/18/2025 2:00 PM EDT 03/18/2025 2:00 PM EDT us Luis Daniel Brunner MD LAB BLOOD ORDERABLES Final R esult [facility] ([facility]) [address] [place] [address] documented in this encounter Visit Diagnoses Diagnosis Psoriatic arthropathy (CMS/HCC)- Primary Psoriatic arthropathy PMR (polymyalgia rheumatica) Polymyalgia rheumatica 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 shelter systemic steroid user documented in this encounter Care Teams Hvac Engineering Technician Relationship Specialty Start Date End Date Roman David MD [address] [facility] [address] PCP - General 08/24/22 documented as of this encounter
--- OUTSIDE RECORDS SUMMARY | 2025-03-20 10:55 | XMS_ITS | Clinical Summary ---
Author Organization [facility] Address [address] [place] [address] Care Team Providers Care Validation Consultant Name Role Phone Roman David MD Primary Care Provider [phone] Allergies Active Allergy Reactions Criticality Noted Date [...] calcium (1,500 mg) tablet Take by mouth. 08/21/19 2 0 Active aspirin 81 mg chewable tablet 1 (one) time each day at the same time. Active Truetrack Test strip USE 1 STRIP VIA METER ONCE A DAY*E11.9* 2 Active furosemide (Lasix) 20 mg tablet Take 10 mg by mouth 1 (one) time each day at the same time. Active leucovorin (Wellcovorin) 5 mg tabletIndications :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 Take one tab PO daily 90 tablet 3 3 Active leucovorin (Wellcovorin) 5 mg tabletIndications :manager long term care 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 Take one tab PO daily 90 tablet 2 3 Active irbesartan (Avapro) 300 mg tablet Take 300 [...] day at the same time. 4 Active fluorouracil (Efudex) 5 % cream Apply to directed areas on the scalp, nose, and left cheek twice a day x 14 days. Dispense 30 day supply but only use for 14 days. 4 Active OneTouch Delica Plus Lancet 33 gauge misc USE TO TEST BLOOD SUGAR ONCE DAILY 4 Active calcium carbonate-vitamin D3 600 mg-10 mcg (400 unit) capsule Take 1 capsule twice a day by oral route for 90 days. 6 Active magnesium oxide (Mag-Ox) 400 mg (241.3 mg magnesium) tabletIndications :Stage 3a chronic kidney disease (CMS/HCC),Electro lyte disorder Take 1 tablet (400 mg) by mouth in the morning. 90 tablet 3 4 04/17/20 25 Active predniSONE (Deltasone) 2.5 mg tabletIndications :Psoriatic arthropathy (CMS/HCC) TAKE 2 TABLETS BY MOUTH IN THE MORNING 180 tablet 2 4 Active folic acid (Folvite) 1 mg tabletIndications :Psoriatic arthropathy (CMS/HCC) TAKE 1 TABLET BY MOUTH [...] mg by mouth twice a day. Active 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 2.5 mg tabletIndications :Psoriatic arthropathy (CMS/HCC) Take 3 tablets (7.5 mg total) by mouth 1 (one) time per week Take 3 tablets (7.5mg) weekly 36 tablet 6 5 Active doxycycline (Monodox) 100 mg capsule Take 1 capsule by mouth Twice daily at 6am and 6pm. 5 Active doxycycline (Adoxa) 100 mg tablet Take 1 tablet by mouth Twice daily at 6am and 6pm. 5 Active benzoyl peroxide 5 % external wash Apply to the face and scalp then rinse daily, 30 day supply 5 Active triamcinolone (Kenalog) 0.1 % cream APPLY TO THE AFFECTED AREA topically TWICE DAILY 5 Active Active Problems Problem Noted Date Diagnosed [...] 08/24/2023 10/11/2023 Short of breath on exertion 08/24/2023 04/0 09/2023 Abnormal findings on imaging of biliary tract 08/16/2023 Anxiety 08/16/2023 08/16/2023 Benign prostatic hyperplasia without lower urinary tract symptoms 08/16/2023 08/16/2023 BMI 35.0-35.9,adult 08/16/2023 08/16/2023 Degeneration of cervical intervertebral disc 01/202408/16/2023 Diabetes mellitus 08/16/2023 08/16/2023 Epigastric pain 08/16/2023 08/16/2023 Former smoker 08/16/2023 08/16/2023 Hiatal hernia 08/16/2023 08/16/2023 History of Helicobacter pylori infection 024 08/16/2023 History of renal calculi 08/16/2023 HTN (hypertension) 08/16/2023 08/16/2023 Hypertriglyceridemia 08/16/2023 08/16/2023 [...] of insulin 01/30/2023 08/16/2023 Psoriatic arthropathy 05/27/2022 manager long term 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 05/27/2022 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 05/21/2022 PMR (polymyalgia rheumatica) 05/21/2022 Encounters Date Type Department Care Team Description 03/18/2025 11:00 AM EDT Follow-Up [facility] Rheumatology [address] [place] [address] Luis Daniel Brunner MD Psoriatic arthropathy (CMS/HCC) (Primary Dx); PMR (polymyalgia rheumatica); 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) from Last 3 Months Immunizations Immunization Administration Dates Next Due Influenza, High Dose Seasona l, Preservative Free 04/23/2020 Influenza, Seasonal, Quadriv alent, Adjuvanted 07/26/2022 Influenza, Unspecified 04/23/2020,04/22/2015, Influenza, injectable, quadrivalent 04/22/2015,1 07/22/2013 Influenza, seasonal, injectable 04/18/2024,04/17,05/12/2021 Influenza, trivalent, adjuvanted 05/30/2024 Moderna SARS-CoV-2 Vaccination 10/28/2020,2020 Pfizer SARS-CoV-2 Vaccination 11/17/2021 ,11/17/2020,10/29/2020,10/27 Pneumococcal Conjugate PCV 13 04/09/2016 Pneumococcal Polysaccharide PPV23 07/10/2017,07/2011 RSV, Adult, Recombinant 05/20/2024 Social History Tobacco Use Types Packs/Day Years Used Date Smoking Tobacco: Former Cigarettes Smokeless Tobacco: Never Tobacco Cessation:Counseling Given: Not Answered PHQ-2 Answer Date Recorded Patient Health Questionnaire-2 Score 0 03/18/2025 CT Safety & Environment Answer Date Rec orded [...] Heterosexual or Straight 03/2025 10:48 AM EDT Last Filed Vital Signs Vital Sign Reading Time Taken Comments Blood Pressure 136/78 03/18/2025 10:50 AM EDT Pulse 80 03/18/2025 10:50 AM EDT Temperature - - Respiratory Rate 16 04/17/2024 2:28 PM EDT Oxygen Saturation 97% 09/10/2024 10:56 AM EST Inhaled Oxygen Concentration - - Weight 116 kg (256 lb) 03/18/2025 10:50 AM EDT Height 175.3 cm (5' 9 ) 03/18/2025 10:50 AM EDT Body Mass Index 37.8 03/18/2025 10:50 AM EDT Plan of Treatment Upcoming Encounters Date Type Department Care Team (Late st Contact Info) Description 09/15/2025 11:00 AM EDT Follow-Up [facility] Rheumatology [address] [place] [address] Luis Daniel Brunner MD [address] [facility] [place] [address] Health Maintenance Due Date Last Done Comments Medicare Annual Wellness (AWV) 1940 Diabetes: Retinopathy Screening 11/03/1951 Diabetes: Urine Protein Screening 1960 Adult Tetanus 11/03/1963 Zoster Vaccines (1 of 2) 11/03/1991 Diabetes: Hemoglobin A1C 12/11/2024 09/10/2024 COVID-19 Vaccine ( season) 2025 05/20/2024, 11/17/2021, 05/20/2021, Additional history exists Influenza Vaccine (#1) 2025 , 04/18/2024, 04/17/2024, Additional history exists Fall Risk Screening 09/10/2025 09/10/2024 Depression Screening 03/18/2026 03/18/2025 Pneumococcal Vaccine: 50+ Years Completed 07/10/2017, 04/09/2016, 07/10/2011 HIB Vaccines Aged Out No longer eligi [...] Procedure Name Priority Date/Time Associated Diagnosis Comments CBC WITH AUTO DIFFERENTIAL Routine 03/18/2025 2:00 PM EDT 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 COMPREHENSIVE METABOLIC PANEL Routine 03/18/2025 2:00 PM EDT 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 CBC AND DIFFERENTIAL Routine 03/18/2025 2:00 PM EDT manager long term care 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) from Last 3 Months or Most Recently Relevant to Health Maintenance Results * (ABNORMAL) CBC auto differential (03/18/2025 2:00 PM EDT) Auto WBC 10.51 4.00 - 10.60 10*3/uL 03/18/2025 5:54 PM EDT [facility] ([facility]) RBC 4.68 4.20 - 5.70 10*6/uL 03/18/2025 5:54 PM EDT [facility] ([facility]) Hemoglobin 14.9 13.0 - 17.0 g/dL 03/18/2025 5:54 PM EDT [facility] ([facility]) Hematocrit 44.5 39.0 - 50.0 % 03/18/2025 5:54 PM EDT [facility] ([facility]) MCV 95.1 82.0 - 98.0 fL 03/18/2025 5:54 PM EDT [facility] ([facility]) MCH 31.8 27.0 - 33.0 pg 03/18/2025 5:54 PM EDT [facility] ([facility]) MCHC 33.5 32.0 - 35.0 g/dL 03/18/2025 5:54 PM EDT [facility] ([facility]) RDW 14.1 11.5 - 15.0 % 03/18/2025 5:54 PM EDT [facility] ([facility]) Neutrophils % 77.2(H) 40.0 - 72.0 % 03/18/2025 5:54 PM EDT [facility] ([facility]) Lymphocytes % 13.2(L) 20.0 - 45.0 % 03/18/2025 5:54 PM EDT [facility] ([facility]) Monocytes % 7.3 5.0 - 12.0 % 03/18/2025 5:54 PM EDT [facility] ([facility]) Eosinophils % 1.1 0.0 - 6.0 % 03/18/2025 5:54 PM EDT [facility] ([facility]) Basophils % 0.4 0.0 - 1.0 % 03/18/2025 5:54 PM EDT [facility] ([facility]) Neutrophils Absolute 8.11(H) 1.60 - 7.60 10*3/uL 03/18/2025 5:54 PM EDT [facility] ([facility]) Lymphocytes Absolute 1.39 1.20 - 4.00 10*3/uL 03/18/2025 5:54 PM EDT [facility] ([facility]) Monocytes Absolute 0.77 0.10 - 1.00 10*3/uL 03/18/2025 5:54 PM EDT [facility] ([facility]) Eosinophils Absolute 0.12 0.00 - 0.50 10*3/uL 03/18/2025 5:54 PM EDT [facility] ([facility]) Basophils Absolute 0.04 0.00 - 0.20 10*3/uL 03/18/2025 5:54 PM EDT [facility] ([facility]) Platelets 189 150 - 400 10*3/uL 03/18/2025 5:54 PM EDT [facility] ([facility]) nRBC % 0.0 0 % 03/18/2025 5:54 PM EDT [facility] ([facility]) Immature Granulocytes % 0.8 0.0 - 1.0 % 03/18/2025 5:54 PM EDT [facility] ([facility]) Immature Granulocytes Absolute 0.08 0.00 - 0.20 10*3/uL 03/18/2025 5:54 PM EDT [facility] ([facility]) Blood Venous blood specimen / Unknown Venipuncture / Unknown 03/18/2025 2:00 PM EDT 03/18/2025 2:00 PM EDT us Luis Daniel Brunner MD LAB BLOOD ORDERABLES Final R esult [facility] ([facility]) [address] [place], [place] [id number] * (ABNORMAL) Comprehensive metabolic panel (03/18/2025 2:00 PM EDT) Sodium 136 136 - 145 mmol/L 03/18/2025 5:36 PM EDT [facility] ([facility]) Potassium 4.2 3.5 - 5.1 mmol/L 03/18/2025 5:36 PM EDT [facility] ([facility]) Chloride 101 98 - 107 mmol/L 03/18/2025 5:36 PM EDT [facility] ([facility]) CO2 29 21 - 31 mmol/L 03/18/2025 5:36 PM EDT [facility] ([facility]) Anion Gap 10 7 - 20 mmol/L 03/18/2025 5:36 PM EDT [facility] ([facility]) BUN 19 7 - 25 mg/dL 03/18/2025 5:36 PM EDT [facility] ([facility]) Creatinine 1.13 0.70 - 1.30 mg/dL 03/18/2025 5:36 PM EDT [facility] ([facility]) BUN/Creatinine Ratio 16.8 03/2025 5:36 PM EDT [facility] ([facility]) Glucose 113(H) 70 - 100 mg/dL 03/18/2025 5:36 PM EDT [facility] ([facility]) Calcium 9.6 8.6 - 10.3 mg/dL 03/18/2025 5:36 PM EDT [facility] ([facility]) AST 22 13 - 39 U/L 03/18/2025 5:36 PM EDT [facility] ([facility]) ALT (SGPT) 21 7 - 52 U/L 03/18/2025 5:36 PM EDT [facility] ([facility]) Alkaline Phosphatase 86 34 - 104 U/L 03/18/2025 5:36 PM EDT [facility] ([facility]) Total Protein 7.2 6.0 - 8.3 g/dL 03/18/2025 5:36 PM EDT [facility] ([facility]) Albumin 4.3 3.5 - 5.7 g/dL 03/18/2025 5:36 PM EDT [facility] ([facility]) Total Bilirubin 0.8 0.3 - 1.0 mg/dL 03/18/2025 5:36 PM EDT [facility] ([facility]) eGFR 64.5 >60.0 mL/min/1. 73m*2 03/18/2025 5:36 PM EDT [facility] ([facility]) Comment:[facility] s estimated glomerular filtration rate (eGFR) [...] MD LAB BLOOD ORDERABLES Final R esult [facility]) [address] [place] [address] * (ABNORMAL) Hemoglobin A1c (09/10/2024 12:38 PM EST) Hemoglobin A1C 6.9(H) 4.0 - 6.0 % 09/10/2024 3:11 PM EST [facility] ([facility]) Estimated Average Glucose 151 mg/dL 09/10/2024 3:11 PM EST [facility] ([facility]) Blood Venous blood specimen / Unknown Venipuncture / Unknown 09/10/2024 12:38 PM EST 09/10/2024 12:45 PM EST us Luis Daniel Brunner MD LAB BLOOD ORDERABLES Final R esult [facility] ([facility]) [address] [place] [address] from Last 3 Months or Most Recently Relevant to Health [place] [address] MEDICARE [employer] Care Teams Validation Consultant Relationship Specialty Start Date End Date Roman David MD [address] [facility] [address] [place] [id number] PCP - General 08/24/22
--- OUTSIDE RECORDS SUMMARY | 2025-03-20 10:55 | XMS_ITS | Encounter Summary ---
Author Organization [facility] Address [address] [place] [address] Phone Care Team Providers Care Feeder Switchboard Operator Name Role Phone Roman David MD Primary Care Provider [phone] Encounter Details Date Type Department Care Team (Late st Contact Info) Description 12/09/2024 Scanned Document [facility] [address] [place] [id number] Scanning, Generic Provider Social History Tobacco Use [...] Description 09/02/2025 1:30 PM EST Office Visit [facility] [address] [facility] [address] [place] [address] Ly Villanueva MD [address] [place] [address] documented as of this encounter [...] documented as of this encounter Care Teams Feeder Switchboard Operator Relationship Specialty Start Date End Date Roman David MD [address] [place] [address] PCP - General 12/08/21 documented as of this encounter
--- OUTSIDE RECORDS SUMMARY | 2025-03-20 10:55 | XMS_ITS | Patient Health Record ---
Author Organization [facility] Address [address] [place] [address] Support Name Relationship Address Phone Travis Coburn Guarantor Unknown [phone] Reason For Referral No Information Problems Problem Type SNOMED Code ICD Code Onset Dates Problem Status W/U Status Risk Notes Problem Type II diabetes mellitus without complication (395923019) Diabetes (E11.9) Active confirmed Problem Compression fracture of L1 vertebra, initial encounter (S32.010A) Active confirmed Problem Mechanical low back pain (423036513) Mechanical low back pain (M54.59) Active confirmed Plan Of Treatment No Information Insurance Providers Payer Name Payer Address Payer Phone Subscriber Number Group Number Insured Name Patient Relationship to Insured Coverage Start Date Coverage [place] [address] [place] [address] [id number] Travis Coburn Self - patient is the insured
--- OUTSIDE RECORDS SUMMARY | 2025-03-20 10:55 | XMS_ITS | Clinical Summary ---
Author Organization [facility] Address [address] [place] [address] Phone Care Team Providers Care Mixer Operator Hot Metal Name Role Phone Roman David MD Primary Care Provider [phone] Allergies Active Allergy Reactions Criticality Noted Date [...] at bedtime. Active rosuvastatin (Crestor) 10 mg tabletIndications: Mixed hyperlipidemia Take 1 tablet (10 mg) by mouth once daily. 90 tablet 3 12/24/19 25 026 Active Active Problems Problem Noted Date Diagnosed [...] Encounters Date Type Department Care Team Description 03/07/2025 Telephone [facility] [address] [place] [address] Sherry Mccann RN 12/23/2024 Refill [facility] [address] [place] [address] [address] [place] [address] Krista Ryan, RN PERINATAL Mixed hyperlipidemia 12/20/2024 Telephone [facility] [address] [place] [address] Genna Solis RN from Last 3 Months Immunizations Immunization Administration [...] Description 09/02/2025 1:30 PM EST Office Visit [facility] [address] [address] Ly Villanueva MD 703 [facility] 2, [address] [address] Health Maintenance Due Date Last Done Comments Lipid Panel 1940 Hepatitis A Vaccines (1 of 2 - Risk 2-dose series) 1960 DTaP/Tdap/Td Vaccines (1 - Tdap) 11/03/1963 Zoster Vaccines (1 of 2) 11/03/1991 Hepatitis B Vaccines (1 of 3 - Risk 3-dose series) 2001 Medicare Annual Wellness Visit (AWV) 07/27/2023 07/26/2022 COVID-19 Vaccine (4 - Pfizer risk season) 2025 05/20/2024, 11/17/2021, 10/28/2020, Additional history exists Influenza Vaccine (#1) 2025 4, 04/18/2024, 04/17/2024, Additional history exists Pneumococcal Vaccine Completed 05/28/2018, 07/10/2017, 04/09/2016, Additional history exists RSV High Risk: (Elderly (60+) or Population) Completed 05/20/2024 HIB Vaccines Aged Out No longer eligi [...] on patient's age to complete this topic Insurance MEDIC[facility] [place] [address] MEDICARE PART A AND B [facility] MEDICARE SUPPLEMENT Care Teams Mixer Operator Hot Metal Relationship Specialty Start Date End Date Roman David MD [address] [facility] [place] [address] PCP - General 12/08/21
--- OUTSIDE RECORDS SUMMARY | 2025-03-20 10:55 | XMS_ITS | Encounter Summary ---
Author Organization [facility] Address [address] [place] [address] Care Team Providers Care Portable Machine Cutter Name Role Phone Roman David MD Primary Care Provider [phone] Encounter Details Date Type Department Care Team (Late st Contact Info) Description 03/18/2025 Orders Only [facility] D[facility] [address] [place] [address] Viktoriya Evangelista MA alf 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 Social History Tobacco Use Types Packs/Day Years Used Date Smoking Tobacco: Former Cigarettes Smokeless Tobacco: Never PHQ-2 Answer Date Recorded Patient Health Questionnaire-2 Score 0 03/18/2025 [place] Safety & Environment Answer Date Rec [...] AM EDT documented as of this encounter Functional Status documented as of this encounter Plan of Treatment Upcoming Encounters Date Type Department Care Team (Late st Contact Info) Description 09/15/2025 11:00 AM EDT Follow-Up [facility] Rheumatology [address] [place] [address] Luis Daniel Brunner MD [address] [place] [address] documented as of this encounter Procedures Procedure Name Priority Date/Time Associated Diagnosis Comments CBC WITH AUTO DIFFERENTIAL Routine 03/18/2025 2:00 PM EDT alf 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 CBC AND DIFFERENTIAL Routine 03/18/2025 2:00 PM EDT alf 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 COMPREHENSIVE METABOLIC PANEL Routine 03/18/2025 2:00 PM EDT alf 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 documented in this encounter Results * (ABNORMAL) CBC auto differential (03/18/2025 2:00 PM EDT) Auto WBC 10.51 4.00 - 10.60 10*3/uL 03/18/2025 5:54 PM EDT [facility] ([facility]) RBC 4.68 4.20 - 5.70 10*6/uL 03/18/2025 5:54 PM EDT [facility] ([facility]) Hemoglobin 14.9 13.0 - 17.0 g/dL 03/18/2025 5:54 PM EDT [facility] ([facility]) Hematocrit 44.5 39.0 - 50.0 % 03/18/2025 5:54 PM EDT [facility] ([facility]) MCV 95.1 82.0 - 98.0 fL 03/18/2025 5:54 PM EDT [facility] ([facility]) MCH 31.8 27.0 - 33.0 pg 03/18/2025 5:54 PM EDT [facility] ([facility]) MCHC 33.5 32.0 - 35.0 g/dL 03/18/2025 5:54 PM EDT [facility] ([facility]) RDW 14.1 11.5 - 15.0 % 03/18/2025 5:54 PM EDT [facility] ([facility]) Neutrophils % 77.2(H) 40.0 - 72.0 % 03/18/2025 5:54 PM EDT [facility] ([facility]) Lymphocytes % 13.2(L) 20.0 - 45.0 % 03/18/2025 5:54 PM EDT [facility] ([facility]) Monocytes % 7.3 5.0 - 12.0 % 03/18/2025 5:54 PM EDT [facility] ([facility]) Eosinophils % 1.1 0.0 - 6.0 % 03/18/2025 5:54 PM EDT [facility] ([facility]) Basophils % 0.4 0.0 - 1.0 % 03/18/2025 5:54 PM EDT [facility] ([facility]) Neutrophils Absolute 8.11(H) 1.60 - 7.60 10*3/uL 03/18/2025 5:54 PM EDT [facility] ([facility]) Lymphocytes Absolute 1.39 1.20 - 4.00 10*3/uL 03/18/2025 5:54 PM EDT [facility] ([facility]) Monocytes Absolute 0.77 0.10 - 1.00 10*3/uL 03/18/2025 5:54 PM EDT [facility] ([facility]) Eosinophils Absolute 0.12 0.00 - 0.50 10*3/uL 03/18/2025 5:54 PM EDT [facility] ([facility]) Basophils Absolute 0.04 0.00 - 0.20 10*3/uL 03/18/2025 5:54 PM EDT [facility] ([facility]) Platelets 189 150 - 400 10*3/uL 03/18/2025 5:54 PM EDT [facility] ([facility]) nRBC % 0.0 0 % 03/18/2025 5:54 PM EDT [facility] ([facility]) Immature Granulocytes % 0.8 0.0 - 1.0 % 03/18/2025 5:54 PM EDT [facility] ([facility]) Immature Granulocytes Absolute 0.08 0.00 - 0.20 10*3/uL 03/18/2025 5:54 PM T [facility]) Blood Venous blood specimen / Unknown Venipuncture / Unknown 03/18/2025 2:00 PM EDT 03/18/2025 2:00 PM EDT us Bashar M Kahaleh MD LAB BLOOD ORDERABLES Final R esult [facility] ([facility]) [address] [place] [address] * (ABNORMAL) Comprehensive metabolic panel (03/18/2025 2:00 PM EDT) Sodium 136 136 - 145 mmol/L 03/18/2025 5:36 PM EDT [facility] ([facility]) Potassium 4.2 3.5 - 5.1 mmol/L 03/18/2025 5:36 PM EDT [facility] ([facility]) Chloride 101 98 - 107 mmol/L 03/18/2025 5:36 PM EDT [facility] ([facility]) CO2 29 21 - 31 mmol/L 03/18/2025 5:36 PM EDT [facility] ([facility]) Anion Gap 10 7 - 20 mmol/L 03/18/2025 5:36 PM EDT [facility] ([facility]) BUN 19 7 - 25 mg/dL 03/18/2025 5:36 PM EDT [facility] ([facility]) Creatinine 1.13 0.70 - 1.30 mg/dL 03/18/2025 5:36 PM EDT [facility] ([facility]) BUN/Creatinine Ratio 16.8 03/2025 5:36 PM EDT [facility] ([facility]) Glucose 113(H) 70 - 100 mg/dL 03/18/2025 5:36 PM EDT [facility] ([facility]) Calcium 9.6 8.6 - 10.3 mg/dL 03/18/2025 5:36 PM EDT [facility] ([facility]) AST 22 13 - 39 U/L 03/18/2025 5:36 PM EDT [facility] ([facility]) ALT (SGPT) 21 7 - 52 U/L 03/18/2025 5:36 PM EDT [facility] ([facility]) Alkaline Phosphatase 86 34 - 104 U/L 03/18/2025 5:36 PM EDT [facility] ([facility]) Total Protein 7.2 6.0 - 8.3 g/dL 03/18/2025 5:36 PM EDT [facility] ([facility]) Albumin 4.3 3.5 - 5.7 g/dL 03/18/2025 5:36 PM EDT [facility] ([facility]) Total Bilirubin 0.8 0.3 - 1.0 mg/dL 03/18/2025 5:36 PM EDT [facility] ([facility]) eGFR 64.5 >60.0 mL/min/1. 73m*2 03/18/2025 5:36 PM EDT [facility] ([facility]) Comment:[facility] s estimated glomerular filtration rate (eGFR) will [...] MD LAB BLOOD ORDERABLES Final R esult [facility] ([facility]) [address] [place], [place] [id number] documented in this encounter Visit Diagnoses Diagnosis alf 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 documented in this encounter Care Teams Portable Machine Cutter Relationship Specialty Start Date End Date Roman David MD [address] [facility] [address] [address] PCP - General 08/24/22 documented as of this encounter
--- OUTSIDE RECORDS SUMMARY | 2025-03-20 10:56 | XMS_ITS | Encounter Summary ---
Author Organization [facility] Address [address] [place] [address] Care Team Providers Care Personnel Director Name Role Phone Roman David MD Primary Care Provider [phone] Encounter Details Date Type Department Care Team (Late st Contact Info) Description 04/29/2024 Orders Only [facility] [address] [place] [address] Christin Galvan [address] [place] [address] Acoustic neuroma (HCC) Social History Tobacco Use [...] 06/25/2025 11:00 AM EST Office Visit [facility] [address] [place] [phone] Tariq Perez DO [address] [place] [address] 07/23/2025 1:00 PM EST Office Visit [facility] [address] [place] [address] Yudy Montes MD [address] [place] [address] documented as of this encounter Visit Diagnoses Diagnosis 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
--- OUTSIDE RECORDS SUMMARY | 2025-03-20 10:56 | XMS_ITS | Encounter Summary ---
Author Organization [facility] Address [address] [place] [address] Phone Care Team Providers Care Head Machine Feeder Name Role Phone Roman David MD Primary Care Provider [phone] Encounter Details Date Type Department Care Team (Late st Contact Info) Description 03/18/2020 Orders Only [facility] [address] [place] [address] Conversion, Onbase Social History Tobacco Use Types [...] Description 09/02/2025 1:30 PM EST Office Visit [place] [address] [phone] Ly Villanueva MD 703 [facility] 2, [email or web address] [address] [place], [place] [phone] Scheduled Orders Name Type Priority Associated Diagnoses Orde r Schedule OUTSIDE LAB SCAN Lab Ordered: 03/18/2020 documented as of this encounter Visit Diagnoses Not on filedocumented in this encounter Care Teams Head Machine Feeder Relationship Specialty Start Date End Date Roman David MD [address] [facility] [place] [address] PCP - General 12/08/21 documented as of this encounter
--- OUTSIDE RECORDS SUMMARY | 2025-03-20 10:56 | XMS_ITS | Encounter Summary ---
Author Organization [facility] Address [address] [place] [address] Phone Care Team Providers Care Code Machine Operator Name Role Phone Roman David MD Primary Care Provider [phone] Encounter Details Date Type Department Care Team (Late st Contact Info) Description 06/18/2021 Orders Only [facility] LE[facility] [address] [place] [address] Conversion, Onbase Social History Tobacco Use Types [...] Description 09/02/2025 1:30 PM EST Office Visit [place] 6[address]83 [facility] [address] [place] [address] Ly Villanueva MD 7[address] [facility] 2, [facility] [address] [place] [address] Scheduled Orders Name Type Priority Associated Diagnoses Orde r Schedule OUTSIDE LAB SCAN Lab Ordered: 06/18/2021 documented as of this encounter Visit Diagnoses Not on filedocumented in this encounter Care Teams Code Machine Operator Relationship Specialty Start Date End Date Roman David MD [address] [facility] [place] [address] PCP - General 12/08/21 documented as of this encounter
--- OUTSIDE RECORDS SUMMARY | 2025-03-20 10:56 | XMS_ITS | Encounter Summary ---
Author Organization [facility] Address [address] [place] [address] Care Team Providers Care Learning Disabilities Specialist Name Role Phone Roman David MD Primary Care Provider [phone] Encounter Details Date Type Department Care Team (Late st Contact Info) Description 01/11/2024 Clinisync Result Encounter [facility] External Department Unsolicited Tanika Rondon MD [address] [facility] [address] [place] [address] Social History Tobacco Use Types Packs/Day Years [...] 06/25/2025 11:00 AM EST Office Visit [facility] [address] [place] [address] Tariq Perez DO [address] [place] [address] 07/23/2025 1:00 PM EST Office Visit [facility] [address] [place] [address] Yudy Montes MD [address] [place] [address] (work) documented as of this encounter Procedures Procedure Name Priority Date/Time Associated Diagnosis Comments MRI HEAD/BRAIN WO/W CONTR 01/11/2024 11:38 PM EDT documented in this encounter Results * MRI HEAD/BRAIN WO/W CONTR (01/11/2024 11:38 PM EDT) Anatomical Region Laterality Modality Radiographic Bertha ging 01/11/2024 11:3 8 PM EDT Narrative 01/11/2024 11:40 [place] [address] Magnetic Resonance Report Signed Patient: TRAVIS COBURN MR#: [id number] : 1940 Acct:[id number] Age/Sex: 83 / M ADM Date: 01/09/24 Loc: LAB Attending Dr: Tanika Rondon M.D. Ordering Physician: Tanika Rondon M.D. Date of Service: 01/09/24 Procedure(s): MR head/brain wo/w con Accession Number(s): [id number] cc: Roman David M.D.; Tanika Rondon M.D. [place] [id number] Patient Name: TRAVIS COBURN MRN: [id number] date: 1940 Sex: M Assigned Patient Location: LAB Current Patient Location: Accession/Order Number: [id number] Exam Date: 01/09/2024 12:29 Report Date: 01/11/2024 [...] By: KALPESH LYLE M.D. Signed By: 01/11/24 234 DD/ 4448 TD/TT: Meal Cook: Procedure Note Radiology, Radiologist, MD - 01/11/2024 [place] [address] Magnetic Resonance Report Signed Patient: TRAVIS COBURN R#: [id number] : 1940cct:[id number] Age/Sex: 83 / MADM Date: 01/09/24 Loc: LAB Attending Dr: Tanika Rondon M.D. Ordering Physician: Tanika Rondon M.D. Date of Service: 01/09/24 Procedure(s): MR head/brain wo/w con Accession Number(s): [id number] cc: Roman David M.D.; Tanika Rondon M.D. The [place] [id number] Patient Name: TRAVIS COBURN MRN: [id number] date: 1940 Sex: M Assigned Patient Location: LAB Current Patient Location: Accession/Order Number: [id number] Exam Date: 01/09/2024 12:29 Report Date: 01/11/2024 [...] 23:38 Dictated By: KALPESH LYLE M.D. Signed By:01/11/24 9031 DD/ 4606 TD/TT: Meal Cook: us Tanika Rondon MD IMG XR PROCEDURES Final Resul t documented in this encounter Visit Diagnoses Not on filedocumented in this encounter Care Teams Learning Disabilities Specialist Relationship Specialty Start Date End Date Roman David MD PCP - General Family Medicine 10/20/23 documented as of this encounter
--- OUTSIDE RECORDS SUMMARY | 2025-03-20 10:56 | XMS_ITS | Encounter Summary ---
Author Organization [facility] Address [address] [facility] [place] [address] Care Team Providers Care Primary Care Provider Name Role Phone Roman David MD Primary Care Provider [phone] Encounter Details Date Type Department Care Team (Late st Contact Info) Description 09/08/2017 Abstract [facility] [address] [place] [address] Ashley Quesada, [facility] [address] [place] [address] Social History Tobacco Use Types Packs/Day Years [...] 06/25/2025 11:00 AM EST Office Visit [facility] [address] [place] [phone] Tariq Perez, DO [address] [place] [address] 07/23/2025 1:00 PM EST Office Visit [facility] [address] [place] [phone] Yudy Montes MD [address] [place] [address] documented as of this encounter Visit Diagnoses Not on filedocumented in this encounter Care Teams Primary Care Provider Relationship Specialty Start Date End Date Roman David MD PCP - General Family Medicine 10/20/23 documented as of this encounter
--- OUTSIDE RECORDS SUMMARY | 2025-03-20 10:56 | XMS_ITS | Encounter Summary ---
Author Organization [facility] Address [address] [place] [address] Phone Care Team Providers Care Retail Center Receptionist Name Role Phone Roman David MD Primary Care Provider [phone] Encounter Details Date Type Department Care Team (Late st Contact Info) Description 03/07/2025 Telephone [facility] [address] [place] [address] Sherry Mccann RN Social History Tobacco Use Types Packs/Day [...] on file documented as of this encounter Miscellaneous Notes * Telephone Encounter - Sherry Mccann RN - 03/07/2025 3:57 PM EDT Patient stated he never received call regarding his MRI results. Dr. Nguyen reviewed outside imagingand believes there was an area of growth, but not significant. Results discussed at [facility] Tumor [facility] which recommended monitoring in 1 year year. Patient does not need repeat imaging until September 2025. He has no other questions or concerns at this time. documented in this encounter Plan of Treatment Upcoming Encounters Date Type Department Care Team (Late st Contact Info) Description 09/02/2025 1:30 PM EST [facility] [address] [place] [address] [place] [address] Ly Villanueva MD 703 [facility] 2, [address] [place], [place] [phone] documented as of this encounter Visit Diagnoses Not on filedocumented in this encounter Additional Health Concerns Assessment Noted Time A fall risk assessment has been complete d for the patient 11/29/2024 10:25 AM EDT documented as of this encounter Care Teams Retail Center Receptionist Relationship Specialty Start Date End Date Roman David MD [address] [facility] [place] [address] PCP - General 12/08/21 documented as of this encounter
--- OUTSIDE RECORDS SUMMARY | 2025-03-20 10:56 | XMS_ITS | Encounter Summary ---
Author Organization [facility] Address [address] [place] [address] Phone Care Team Providers Care Stereotype Caster Name Role Phone Roman David MD Primary Care Provider [phone] Encounter Details Date Type Department Care Team (Late st Contact Info) Description 11/25/2021 Orders Only [facility] [address] [place] [address] Conversion, Onbase Social History Tobacco Use Types [...] Description 09/02/2025 1:30 PM EST Office Visit [facility] 7[address] [facility] [address] [place] [address] Ly Villanueva MD 703 [facility] 2, [address] [place] [address] Scheduled Orders Name Type Priority Associated Diagnoses Orde r Schedule OUTSIDE LAB SCAN Lab Ordered: 11/25/2021 OUTSIDE LAB SCAN Lab Ordered: 11/25/2021 documented as of this encounter Visit Diagnoses Not on filedocumented in this encounter Care Teams Stereotype Caster Relationship Specialty Start Date End Date Roman David MD [address] [facility] [place] [address] PCP - General 12/08/21 documented as of this encounter
--- OUTSIDE RECORDS SUMMARY | 2025-03-20 10:56 | XMS_ITS | Encounter Summary ---
Author Organization [facility] Address [address] [place] [address] Phone Care Team Providers Care Sales Project Engineer Name Role Phone Roman David MD Primary Care Provider [phone] Encounter Details Date Type Department Care Team (Late st Contact Info) Description 08/05/2024 Scanned Document [facility] [address] [place] [phone] Scanning, Generic Provider Social History Tobacco Use [...] Description 09/02/2025 1:30 PM EST Office Visit [place] [address] [facility] [address] [place] [address] Ly Villanueva MD [facility]03 [facility], [address] [place] [address] documented as of this encounter Visit Diagnoses Not on filedocumented in this encounter Additional Health Concerns Assessment Noted Time A fall risk assessment has been complete d for the patient 07/23/2024 9:39 AM EST documented as of this encounter Care Teams Sales Project Engineer Relationship Specialty Start Date End Date Roman David MD [address] [place] [address] PCP - General 12/08/21 documented as of this encounter
--- OUTSIDE RECORDS SUMMARY | 2025-03-20 10:56 | XMS_ITS | Encounter Summary ---
Author Organization [facility] Address [address] [place] [address] Phone Care Team Providers Care Marketing Support Specialist Name Role Phone Roman David MD Primary Care Provider [phone] Encounter Details Date Type Department Care Team (Late st Contact Info) Description 10/25/2022 Orders Only [facility] [address] [place] [address] Conversion, Onbase Social History Tobacco Use Types [...] Description 09/02/2025 1:30 PM EST Office Visit [place] [address] [facility] [address] [place] [address] Ly Villanueva MD 703 [facility] 2, [facility] [address] [place] [address] Scheduled Orders Name Type Priority Associated Diagnoses Orde r Schedule OUTSIDE LAB SCAN Lab Ordered: 10/25/2022 documented as of this encounter Visit Diagnoses Not on filedocumented in this encounter Care Teams Marketing Support Specialist Relationship Specialty Start Date End Date Roman David MD [address] [place] [facility] [place] [address] PCP - General 12/08/21 documented as of this encounter
--- OUTSIDE RECORDS SUMMARY | 2025-03-20 10:56 | XMS_ITS | Encounter Summary ---
Author Organization [facility] Address [address] [place] [address] Care Team Providers Care Telephone Appointment Clerk Name Role Phone Roman David MD Primary Care Provider [phone] Encounter Details Date Type Department Care Team (Late st Contact Info) Description 12/21/2023 Abstract [facility] [address] [place] [phone] Angy Weiss, MANUELITO [address] [place] [address] Social History Tobacco Use Types Packs/Day Years [...] 06/25/2025 11:00 AM EST Office Visit [facility] [address] [place] [phone] Tariq Perez DO [address] [place] [address] 07/23/2025 1:00 PM EST Office Visit [facility] [address] [place] [phone] Yudy Montes MD [address] [place] [address] documented as of this encounter Visit Diagnoses Not on filedocumented in this encounter Care Teams Telephone Appointment Clerk Relationship Specialty Start Date End Date Roman David MD PCP - General Family Medicine 10/20/23 documented as of this encounter
--- OUTSIDE RECORDS SUMMARY | 2025-03-20 10:56 | XMS_ITS | Clinical Summary ---
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.] 06/25/2025 11:00 AM EST Office Visit [facility] [address] [place] [phone] Tariq Perez, [address] [place] [address] 07/23/2025 1:00 PM EST Office Visit [facility] [address] [place] [address] Yudy Montes MD [address] [place] [address] Health Maintenance Due Date Last Done Comments Influenza Vaccine (#1) 2025 , 07/26/2022, 05/12/2021, Additional history exists Pneumococcal Vaccine: 65+ Years Completed 07/10/2017, 04/09/2016, 07/10/[address] [place] [address] MEDICARE [employer] SUPP[employer]MENT Care Teams Photographer News Relationship Specialty Start Date End Date Roman David MD PCP - General Family Medicine 10/20/23
--- OUTSIDE RECORDS SUMMARY | 2025-03-20 10:57 | XMS_ITS | Patient Health Record ---
Author Organization [facility] [place] Address [address] [place] [address] Care Team Providers Care Comber Tender Name Role Phone Joann Ruben Primary Care Provider Allergies Allergen (clinical drug ingredient) Drug/Non Drug Allergy documented on EMR Reaction Allergy Type Onset Date Status Substance with sulfonamide structure and antibacterial mechanism of action (substance) Sulfa Antibiotics unknown Drug Allergy Active Penicillin anaphylaxis Drug Allergy Acti ve Results Component Value Reference Range Notes BNP Reviewed date:07/21/2024 10:23:30 AM Interpretation: Performing Lab: Notes/Report: [facility] , NT Pro B Type Natriuretic Pept 174.0 <=1800.0 pg/mL Performing Lab: see note ML - [facility] LB CBC AUTO DIFF Reviewed date:07/21/2024 10:23:30 AM Interpretation: Performing Lab: Notes/Report: [facility] , White Blood Count 9.7 4.0-11.0 10 [...] 3/uL Performing Lab: see note ML - [facility] LB PROF 14(COMP METB) Reviewed date:07/21/2024 10:23:30 AM Interpretation: Performing Lab: Notes/Report: [facility] , Sodium 141 136-145 mmol/L Potassium 3.9 [...] Performing Lab: see note ML - [facility] LB UA DIP NONAUTO WO MICRO (810 [id number]) - IN OFFICE Reviewed date:12/09/2024 09:17:26 PM Interpretation: Performing Lab: Notes/Report: COLOR yellow CLARITY clear GLUCOSE neg BILIRUBIN neg KETONE neg SPECIFIC GRAVITY 1.025 BLOOD trace PH 5 PROTEIN protein UROBILINOGEN neg NITRITE neg LEUKOCYTE ESTERASE neg GLYCOHEMOGLOBIN A1C Reviewed date:06/24/2024 02:20:48 PM Interpretation: Performing Lab: Notes/Report: [facility] , Glycohemoglobin A1C 6.9 4.5-6.2 % ADA RECOMMENDED LIMIT 4.0 - 6.0 ACTION SUGGESTED > 7.0 ADA THERAPEUTIC TARGET < 7.0 Estimated Average Glucose 151 Performing Lab: see note ML - [facility] PSA SCREENING Reviewed date:06/24/2024 02:20:48 PM Interpretation: Performing Lab: Notes/Report: [facility] , Prostate Specific Antigen Scrn 2.09 <=4.00 ng/mL Performing Lab: see note ML - [facility] TSH Reviewed date:07/21/2024 10:23:30 AM Interpretation: Performing Lab: Notes/Report: [facility] , Thyroid Stimulating Hormone 2.075 0.358-3.740 uIU/mL Performing Lab: see note ML - [facility] Troponin I High Sensitivity Reviewed date:07/21/2024 10:23:30 AM Interpretation: Performing Lab: Notes/Report: [facility] , Troponin I High Sensitivity 9.2 4.0-76.1 pg/mL NOTE: HIGH-SENSITIVITY TROPONIN ASSAY IS NOT INTENDED TO BE CUT-OFF POINTS HAVE BEEN ESTABLISHED BASED ON THE FOURTH HAS BEEN CONFIRMED THE DECISION THRESHOLD FOR [place] 99TH PERCENTILE = 76.2 PG/ML USED IN ISOLATION BUT SHOULD BE INTERPRETED IN CONJUNCTION REFERENCE LIMIT (URL) OF TROPONIN, DEFINED THE 99TH UNIVERSAL DEFINITION OF MYOCARDIAL INFARCTION. THE UPPER DIAGNOSIS. WITH OTHER DIAGNOSTIC AND CLINICAL INFORMATION. PERCENTILE OF cTnI DISTRIBUTION IN A REFERENCE POPULATION, Performing Lab: see note ML - [facility] RENAL FUNCTION PANEL Reviewed date:09/25/2024 07:55:24 PM Interpretation: Performing Lab: Notes/Report: [facility] , Sodium 139 136-145 mmol/L Potassium 4.2 [...] g/dL Performing Lab: see note ML - [facility] MR IAC wo/w con Reviewed date:09/26/2024 09:03:26 AM Interpretation: Performing Lab: Notes/Report: Source Facility: [facility] [place] [address] Magnetic Resonance Report Signed Patient: TRAVIS COBURN MR#: [id number] : 1940 Acct:[id number] Age/Sex: 83 / M ADM Date: 09/25/24 Loc: LAB Attending Dr: Kiera Barragan M.D. Ordering Physician: Kiera Barrgaan M.D. Date of Service: 09/25/24 Procedure(s): MR UGALDE wo/w con Accession Number(s): [id number] cc: Roman David M.D.; Kiera Barragan M.D. [place] [address] Patient Name: TRAVIS COBURN MRN: [id number] date: 1940 Sex: M Assigned Patient Location: LAB Current Patient Location: LAB Accession/Order Number: [id number] Exam Date: 09/25/2024 19:50 Report Date: 09/25/2024 19:59 At the request of: KIERA BARRAGAN MD Procedure: MR UGALDE wo/w con MRI the brain/IACs performed without [...] Leo Cummings M.D.09/25/2024 7:59 PM Dictation Location: [place] [address] Electronically authenticated by: [id number] Y Date: 09/25/2024 19:59 Dictated By: Leo Cummings M.D. Signed By: 09/25/242001 DD/ 58 TD/TT: Invoice Machine Operator: [place] [address] Magnetic Resonance Report Signed Patient: PRIMO COBURN MR#: [id number] : 1940 Acct:[id number] Age/Sex: 83 / M ADM Date: 09/25/24 Loc: LAB Attending Dr: Kiera Barragan M.D. Ordering Physician: Kiera Barragan M.D. Date of Service: 09/25/24 Procedure(s): MR IAC wo/w con Accession Number(s): [id number] cc: Roman David M.D. ; Kiera Barragan M.D. [address] [address] Patient Name: TRAVIS COBURN MRN: [id number] date: 1940 Sex: M Assigned Patient Location: LAB Current Patient Loca tion: LAB Accession/Order Numb er: [id number] Exam Date: 09/25/2024 19:50 Report Date: 09/25/2024 [...] Leo Cummings M.D.09/25/2024 7:59 PM Dictation Location: [place] [address] Electronically authenticated by: [id number] Y Date: 09/25/2024 19:59 Dictated By: Ernestina Cummings M.D. Signed By: 09/25/242001 DD/ 58 TD/TT: Invoice Machine Operator: LIPID PROFILE Reviewed date:12/09/2024 09:17:26 PM Interpretation: Performing Lab: Notes/Report: [facility] , Triglycerides 160 <=150 mg/dL Cholesterol 185 [...] Performing Lab: see note ML - [facility] LB BNP Reviewed date:01/01/2025 09:12:56 PM Interpretation: Performing Lab: Notes/Report: [facility] , NT Pro B Type Natriuretic Pept 192.0 <=1800.0 pg/mL Performing Lab: see note ML - [facility] LB CBC AUTO DIFF Reviewed date:01/01/2025 09:12:56 PM Interpretation: Performing Lab: Notes/Report: [facility] , White Blood Count 9.5 4.0-11.0 10 3/uL Red Blood Count 4.16 4.70-6.10 10 6/uL Hemoglobin 13.1 14.0-18.0 g/dL Hematocrit 38.7 42.0-54.0 % Mean Corpuscular Volume 93.0 80.0-94.0 fL Mean Corpuscular Hemoglobin 31.5 25.9-34.0 pg Mean Corpuscular HGB Conc 33.9 29.9-35.2 g/dL Red Cell Distribution Width 13.9 11.0-15.0 % Platelet Count 165 150-450 10 3/uL Mean Platelet Volume 10.9 9.5-13.5 fL Neutrophils Percent Auto 72.6 43.0-75.0 % Lymphocytes Percent Auto 18.0 20.5-60.0 % Monocytes Percent Auto 7.6 1.7-12.0 % Eosinophils Percent Auto 0.8 0.9-7.0 % Basophils Percent Auto 0.4 0.2-2.0 % Immature Granulocytes Pct Auto 0.6 0.0-0.5 % Neutrophils Absolute Auto 6.9 1.4-6.5 10 3/uL Lymphocytes Absolute Auto 1.7 1.2-3.8 10 3/uL Monocytes Absolute Auto 0.7 0.3-0.8 10 3/uL Eosinophils Absolute Auto 0.1 0.0-0.7 10 3/uL Basophils Absolute Auto 0.0 0.0-0.1 10 3/uL Immature Granulocytes Abs Auto 0.06 0.00-0.03 10 3/uL Performing Lab: see note ML - [facility] D-DIMER Reviewed date:01/01/2025 09:12:56 PM Interpretation: Performing Lab: Notes/Report: [facility] , D Dimer 0.59 <=0.59 mg/L FEU event cannot be diagnosed with certainty on the basis of the reference range. D-Dimers may also be elevated for a variety Increases in D-Dimer concentration observed with disease, cancer, liver disease, infection, inflammation, thromboembolic events can be variable due to localization, of disorders including advanced age, , coronary hematoma, DIC, trauma, post-surgery, diabetes, thrombolytic or anticoagulant therapy, stress, and generalized hospitalization. size, and age of the thrombus. Therefore, a thromboembolic Performing Lab: see note ML - [facility] LIVER PROFILE Reviewed date:01/01/2025 09:12:56 PM Interpretation: Performing Lab: Notes/Report: [facility] , Bilirubin Total 0.3 0.2-1.0 mg/dL Bilirubin Direct 0.1 0.0-0.2 mg/dL Aspartate Amino Transferase 10 15-37 U/L Alanine Aminotransferase 21 16-63 U/L Alkaline Phosphatase 135 46-116 U/L Total Protein 6.5 6.4-8.2 g/dL Albumin Level 3.2 3.4-5.0 g/dL Globulin 3.3 Albumin Globulin Ratio 1.0 Performing Lab: see note ML - [facility] PROF CHEM 8 (BAS METB) Reviewed date:01/01/2025 09:12:56 PM Interpretation: Performing Lab: Notes/Report: [facility] , Sodium 140 136-145 mmol/L Potassium 4.3 3.5-5.1 mmol/L Chloride 105 98-107 mmol/L Carbon Dioxide 30.5 21.0-32.0 mmol/L Anion Gap 8.8 Glucose 134 74-106 mg/dL Blood Urea Nitrogen 26.0 7.0-18.0 mg/dL Creatinine 1.24 0.70-1.30 mg/dL Estimated GFR ( Nancy >60 >=60 mL/min/1.73m 2 Estimated GFR (Non- Smita 56 >=60 mL/min/1.73m 2 BUN Creatinine Ratio 21.0 Calcium 9.2 8.5-10.1 mg/dL Performing Lab: see note ML - [facility] LB Troponin I High Sensitivity Reviewed date:01/01/2025 09:12:56 PM Interpretation: Performing Lab: Notes/Report: [facility] , Troponin I High Sensitivity 8.5 4.0-76.1 pg/mL REFERENCE LIMIT (URL) OF TROPONIN, DEFINED THE 99TH 99TH PERCENTILE = 76.2 PG/ML NOTE: HIGH-SENSITIVITY TROPONIN ASSAY IS NOT INTENDED TO BE USED IN ISOLATION BUT SHOULD BE INTERPRETED IN CONJUNCTION DIAGNOSIS. CUT-OFF POINTS HAVE BEEN ESTABLISHED BASED ON THE FOURTH PERCENTILE OF cTnI DISTRIBUTION IN A REFERENCE POPULATION, HAS BEEN CONFIRMED THE DECISION THRESHOLD FOR [place] UNIVERSAL DEFINITION OF MYOCARDIAL INFARCTION. THE UPPER WITH OTHER DIAGNOSTIC AND CLINICAL INFORMATION. Performing Lab: see note - [facility] LB TSH W/ REFLEX FT4 Reviewed date:01/01/2025 09:12:56 PM Interpretation: Performing Lab: Notes/Report: [facility] , TSH W/ REFLEX FT4 2.525 0.358-3.740 uIU/mL Performing Lab: see note ML - [facility] LB ECG 12 lead Reviewed date:01/01/2025 09:12:56 PM Interpretation: Performing Lab: Notes/Report: Source Facility: [facility]-[address] [place] [address] [place] [address] Electrocardiograph Report Signed Patient: TRAVIS COBURN MR#: [id number] : 1940 Acct:[id number] Age/Sex: 84 / M ADM Date: 12/31/24 Loc: ER Attending Dr: Ordering Physician: Josue Mayes M.D. 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 Measurements Intervals P[place]ell Rate: 77 P: 73 IN: 168 QRS: -47 QRSD: 102 T: 62 QT: 364 QTc: 396 Interpretive Statements 1100 Sinus rhythm 1470 with occasional supraventricular premature complexes 2630 Left anterior fascicular block 9150 abnormal ECG No previous ECG available for comparison Electronically Signed On 01-01-2025 19:57:48 EDT by DEONDRE RM M.D. Dictated By: DEONDRE RM Signed By: 01/01/251957 DD/ 55 TD/TT: Invoice Machine Operator: [place] [address] Electrocardiograph Report Signed Patient: PRIMO COBURN MR#: [id number] : 1940 Acct:[id number] Age/Sex: 84 / M ADM Date: 12/31/24 Loc: ER Attending Dr: Ordering Physician: Josue Mayes M.D. 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 Measurements Intervals [place] Rate: 77 P: 73 IN: 168 QRS: -47 QRSD: 102 T: 62 QT: 364 QTc: 396 Interpretive Statements 1100 Sinus rhythm 1470 with occasional supraventricular premature complexes 2630 Left anterior fascicular block 9150 abnormal ECG No previous ECG avai lable for comparison Electronically Shavon d On 01-01-2025 19:57:48 EDT by DEONDRE RM M.D. Dictated By: DEONDRE RM Signed By: 01/01/251957 DD/ 55 TD/TT: Invoice Machine Operator: NOHELIA T4 Reviewed date:07/21/2024 10:23:30 AM Interpretation: Performing Lab: Notes/Report: [facility] Nohelia T4 0.77 0.76-1.46 ng/dL Performing Lab: see note ML - [facility] LB URIC ACID SERUM Reviewed date:06/24/2024 02:20:48 PM Interpretation: Performing Lab: Notes/Report: [facility] , Uric Acid 7.0 3.5-7.2 mg/dL Performing Lab: see note ML - [facility] LB TSH Reviewed date:06/24/2024 02:20:48 PM Interpretation: Performing Lab: Notes/Report: [facility] , Thyroid Stimulating Hormone 4.073 0.358-3.740 uIU/mL Performing Lab: see note ML - [facility] LB T4 Reviewed date:06/24/2024 02:20:48 PM Interpretation: Performing Lab: Notes/Report: [facility] , T4 Thyroxine 5.10 4.50-12.10 ug/dL Performing Lab: see note ML - [facility] PROF 14(COMP METB) Reviewed date:06/24/2024 02:20:48 PM Interpretation: Performing Lab: Notes/Report: [facility] , Sodium 141 136-145 mmol/L Potassium 4.1 [...] 1.0 Performing Lab: see note ML - [facility] LB LIPID PROFILE Reviewed date:06/24/2024 02:20:48 PM Interpretation: Performing Lab: Notes/Report: [facility] , Triglycerides 119 <=150 mg/dL Cholesterol 197 [...] 7.1 AVERAGE RISK Performing Lab: see note ML - [facility] LB FREE T3 Reviewed date:06/24/2024 02:20:48 PM Interpretation: Performing Lab: Notes/Report: [facility] , Free T3 2.22 2.18-3.98 pg/mL Performing Lab: see note ML - [facility] LB CBC AUTO DIFF Reviewed date:06/24/2024 02:20:48 PM Interpretation: Performing Lab: Notes/Report: [facility] , White Blood Count 8.2 4.0-11.0 10 [...] Performing Lab: see note ML - [facility] LB VC EXT Venous Reflux SANDY LMT D Reviewed date:06/17/2024 12:44:33 PM Interpretation: Performing Lab: Notes/Report: Source Facility: [place] [address] Vein Report Signed Patient: TRAVIS COBURN MR#: [id number] : 1940 Acct:[id number] Age/Sex: 83 / M ADM Date: 06/14/24 Loc: VC Attending Dr: Roman David M.D. Ordering Physician: Roman David M.D. Date of Service: 06/14/24 Procedure(s): VC EXT Venous Reflux SANDY LMTD Accession Number(s): [id number] cc: Roman David M.D. Patient Name: TRAVIS COBURN MR#: [id number] : 1940 Exam Date: 06/14/2024 Ordering Doctor: [...] Compressibility: Normal. Flow: Mild deep venous reflux. Resume Specialist: No significant incompetent perforators. Tech Note: Atherosclerosis [...] Dictated By: Dakota Carney M.D. Signed By: 06/17/24 0840 DD/ 0839 TD/TT: Invoice Machine Operator: The [address] [address] Vein Report Signed Patient: PRIMO COBURN MR#: [id number] : 1940 Acct:[id number] Age/Sex: 83 / M ADM Date: 06/14/24 Loc: VC Attending Dr: Jah David M.D. Ordering Physician: Roman David M.D. Date of Service: 06/14/24 Procedure(s): VC EXT Venous Reflux SANDY LMTD Accession Number(s): [id number] cc: Roman David M.D. Patient Name: TRAVIS COBURN MR#: [id number] : 1940 Exam Date: 06/14/2024 Ordering Doctor: DR Roman David . RADIOLOGY REPORT PROCEDURE: VC EXT VE NOUS REFLUX SANDY LMTD COMPARISON: None. INDICATIONS: R60.0 Edema TECHNIQUE: Duplex im aging of the lower extremity to assess the deep and superficial venous s ystem for the presence of deep or superficial [...] 0.5 Mid Calf 2.9 Yes 0.9 Saphenopopliteal Sesar ction Reflux: 4.0mm Yes 0.4 SSV: Proximal Calf [...] 2.5 Mid Calf 4.2 Yes 4.5 Saphenopopliteal Sesar ction Relux: 5.7 mm Yes 1.0 SSV: Proximal Calf 5.6 Yes 0.8 Mid Calf 4.2 Yes 4.4 AASV: Proximal Thigh 3.5 Y es 1.1 Mid Thigh 2.4 Yes 0.3 Distal Thigh Thrombi: No acute or chronic thrombus. Compressibility: Normal. Flow: Mild deep veno us reflux. Resume Specialist: No significant incompetent perforators. Tech Note: Atherosclerosis [...] Dictated By: Dakota Carney M.D. Signed By: 06/17/24 0840 DD/ 0839 TD/TT: Invoice Machine Operator: GEREMIAS SILVA (810 [id number]) - IN OFFICE Reviewed date:08/09/2024 10:11:05 AM Interpretation: Performing Lab: Notes/Report: COLOR yellow CLARITY cloudy GLUCOSE neg BILIRUBIN neg KETONE neg SPECIFIC GRAVITY 1.010 BLOOD neg PH 6 PROTEIN neg UROBILINOGEN neg NITRITE neg LEUKOCYTE ESTERASE pos Reason For Referral No Information Medications Medication SIG (Take, Route, Frequency, Duration) Notes Start Date End Date Status Aspirin 81 MG 1 tablet Orally Once a day Active predniSONE 2.5 MG 1 tablet with food o r milk Orally Once a day Active levoFLOXacin 750 MG 1 tablet Orally Once a day for 10 day(s) 02/28/2025 Active Pantoprazole Sodium 40 mg TAKE 1 TABLET BY MOUTH ONCE DAILY for 90 Active OneTouch Ultra Blue Test - Use one strip in vitro to test glucose daily DX E11.9 for 90 days Active Triamcinolone Acetonide 0.1 % 1 application Externally bid 02/26/2025 Active Amitriptyline HCl 50 mg TAKE 1 TO 2 TABL ETS BY MOUTH EVERY NIGHT for 90 Active Doxycycline Monohydrate 100 MG 1 capsule [...] MO UTH EVERY DAY for 30 Active Glimepiride 2 MG Take 1 tablet Orally every morning and 1/2 tablet at HS for 90 days Active Folic Acid 1 MG 1 tablet Orally Once a day Active OneTouch Delica Plus [id number] - Use 1 lancet to poke finger [...] Plus) & Lancet Device - tid Active Immunizations Vaccine Route Administration Date Status Comme nts Flu, Fluad (91692) 65 yrs and older, single-dose syringe (5077-9781) IM Intramuscular 05/30/2024 Administered Social History Tobacco [...] W/U Status Risk Notes Problem Helicobacter pylori (49330071) Helicobacter pylori [H. 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) Active confirmed Problem 683896665 Sensorineural he aring loss, bilateral (H90.3) Active confirmed Problem Irritable bowel syndrome with diarrhea (493331855) Irritable bowel syndrome with diarrhea (K58.0) Active confirmed Problem Polymyalgia rheumatica (96437187) Polymyalgia rheumatica (M35.3) Active confirmed Problem Palpitations (21079287) Palpitations (R00.2) Active confirmed Problem 48882443818141989 Other fracture of first lumbar vertebra, initial encounter for open fracture (S32.018B) Active confirmed Problem Hypertension (21982929) Hypertension (I10) Active confirmed Problem Anxiety (70277369) Anxiety (F41.9) Active confi rmed Problem Sleep apnea (19550837) Sleep apnea (G47.30) Active confirmed Problem Osteoarthritis of knee (511361153) Osteoarthritis of knee (M17.9) Active confirmed Problem Hiatal hernia (67634203) Hiatal hernia (K44.9) Active confirmed Problem Psoriatic arthritis (340003629) Psoriatic arthritis (L40.50) Active confirmed Problem Vitamin D deficiency (26215213) Vitamin D deficiency (E55.9) Active confirmed Problem Hypertriglyceridemia (253631295) Hypertriglyceridemia (E78.1) Active confirmed Problem Diabetes mellitus type 2 (disorder) (09326550) DM2 (diabetes mellitus, type 2) (E11.9) Active confirmed Problem Colitis (68867496) Colitis (K52.9) Active confi rmed Problem Serous otitis media (29496683) Serous otitis media (H65.90) Active confirmed Problem Acute bronchitis (27269697) Acute bronchitis (J20.9) Active confirmed Problem Hyperuricemia (65030871) Hyperuricemia (E79.0) Active confirmed Problem Atopic dermatitis (55181764) Atopic dermatitis (L20.9) Active confirmed Problem Irritable bowel syndrome (52367419) Irritable bowel syndrome (K58.9) Active confirmed Problem Cellulitis (092685608) Cellulitis (L03.90) Active confirmed Problem Diabetes mellitus type 2 (22217002) Diabetes mellitus type 2, uncomplicated (E11.9) Active confirmed Problem Cataract (495459055) Cataract (H26.9) Active co nfirmed Problem Sinus arrhythmia (32680129) Sinus arrhythmia (I49.8) Active confirmed Problem Vitreous degeneratio n (55833818) Vitreous degeneration (H43.819) Active confirmed Problem Contracture of wong r fascia (088244682) 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) Active confirmed Problem Venous stasis (96631467) Venous stasis (I87.8) Active confirmed Problem Unsteady gait (57931017) Unsteady gait (R26.81) Active confirmed Problem Acute renal failure syndrome (11344431) Acute kidney failure (N17.9) Active confirmed Problem Vitamin B>12< deficiency anaemia (87493767) Other vitamin B12 deficiency anemia (D51.8) Active confirmed Problem Nuclear senile cataract (748305729) 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) Active confirmed Problem Primary basal cell carcinoma of right lower limb (disorder) (8862126309145527) Basal cell carcinoma of right lower leg (C44.712) Active confirmed Problem Type II diabetes mellitus without complication (215180739) Diabetes mellitus type 2, diet-controlled (E11.9) Active confirmed Problem Carpal tunnel syndrome (33012635) Carpal tunnel syndrome, bilateral upper limbs (G56.03) Active confirmed Problem Arthralgia of temporomandibular joint (71612456) 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 confirmed Problem Disorder of acoustic nerve (57609636) Acoustic neuroma syndrome, 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 Problem Vestibular schwannom a (573920722) 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) Active confirmed Problem Disease caused by Severe acute respiratory syndrome coronavirus 2 (disorder) (743805241) COVID-19 virus infection (U07.1) Active confirmed Vital Signs Blood pressure diastolic 82 mm Hg 02/26/2025 Height 69 in 02/26/2025 Blood pressure systolic 150 mm Hg 02/26/2025 Weight 233 lbs 02/26/2025 BMI 34.4 kg/m2 02/26/2025 Encounters Encounter Location Date Provider Diagnosis [facility] [address] [place] [address] 02/28/2025 Ruben David Cellulitis L03.90 [facility] [address] [place] [address] 06/24/2024 Ruben David Hypothyroid E03.9 [facility] [address] [place] [address] 08/05/2024 Ruben David [facility] [address] [place] [address] 08/09/2024 Ruben aDvid [facility] [address] [place] [address] 08/12/2024 Ruben David [facility] [address] [place] [address] 08/22/2024 Ruben David Hypertension I10 [facility] [address] [place] [address] 01/09/2025 Ruben Correay Diabetes mellitus ty pe 2, uncomplicated E11.9 [facility] [address] [place] [address] 04/29/2024 Ruben David Diabetes mellitus ty pe 2, uncomplicated E11.9 [facility] [address] [place] [address] 06/17/2024 Ruben David [facility] [address] [place] [address] 08/09/2024 Ruben Hoy Frequency R35.0 [facility] [address] [place] [address] 05/30/2024 Ruben Hoy Overweight E66.3 ; Hypertension I10 ; Diabetes mellitus type 2, uncomplicated E11.9 ; Venous stasis I87.8 ; Vestibular schwannoma D33.3 and Encounter for immunization Z23 [facility] [address] [place] [address] 07/19/2024 Ruben Hoy Hypertension I10 ; Diabetes mellitus type 2, uncomplicated E11.9 and Dyspnea R06.00 [facility] [address] [place] [address] 10/04/2024 Ruben Hoy Dysuria R30.0 ; Atop ic dermatitis L20.9 and Acute UTI N39.0 [facility] [address] [place] [address] 02/26/2025 Ruben Hoy Cellulitis L03.90 Assessments Encounter Date Diagnosis (ICD Code) Assessment Notes Treatment Notes Treatment Clinical Notes Section Notes 05/30/2024 Overweight (ICD-10 - E66.3) 05/30/2024 Hypertension (ICD-10 - I10) 07/19/2024 Hypertension (ICD-10 - I10) 07/19/2024 Diabetes mellitus type 2, uncomplicated (ICD-10 - E11.9) 08/09/2024 Frequency (ICD-10 - R35.0) 10/04/2024 Dysuria (ICD-10 - R30.0) 10/04/2024 Atopic dermatitis (ICD-10 - L20.9) 02/26/2025 Cellulitis (ICD-10 - L03.90) 04/29/2024 Diabetes mellitus type 2, uncomplicated (ICD-10 - E11.9) 06/24/2024 Hypothyroid (ICD-10 - E03.9) 08/22/2024 Hypertension (ICD-10 - I10) 01/09/2025 Diabetes mellitus type 2, uncomplicated (ICD-10 - E11.9) 02/28/2025 Cellulitis (ICD-10 - L03.90) 10/04/2024 Acute UTI (ICD-10 - N39.0) 07/19/2024 [...] End Date MEDICARE [place] [address] [place] [address] [id number] Travis Coburn Self - patient is the insured 7 [employer] SUPPLEMENT [address] [address] [place], [place] [id number] [phone] [id number] Travis Coburn Self - patient is [...] K44.9 Colitis K52.9 Surgical History Surgery Date(Month/Year) Heart Cath Colonoscopy Rotator Cuff Surgery- Left Knee Arthroscopy- Left Hemorrhoidectomy Breast Mass excision Kyphoplasty- 04/05/23 Dr. Peters Hospitalization History Reason Date(Month/Year) compression fracture L1 03/01
--- OUTSIDE RECORDS SUMMARY | 2025-03-20 10:58 | XMS_ITS | Encounter Summary ---
Author Organization [facility] Address [address] [place] [address] Phone Care Team Providers Care Classroom Technology Coach Name Role Phone Roman David MD Primary Care Provider [phone] Encounter Details Date Type Department Care Team (Late st Contact Info) Description 06/12/[address] [facility] [address] [place] [address] Conversion, Onbase Social History Tobacco Use Types [...] Description 09/02/2025 1:30 PM EST Office Visit [place] [id number] [phone] Ly Villanueva MD [address] [facility] [address], [facility] [address] [place], [place] [phone] Scheduled Orders Name Type Priority Associated Diagnoses Orde r Schedule OUTSIDE LAB SCAN Lab Ordered: 06/12/2019 documented as of this encounter Visit Diagnoses Not on filedocumented in this encounter Care Teams Classroom Technology Coach Relationship Specialty Start Date End Date Roman David MD [address] [facility] [place] [address] PCP - General 12/08/21 documented as of this encounter
--- OUTSIDE RECORDS SUMMARY | 2025-03-20 11:37 | XMS_ITS | CCD ---
Author Organization [facility] Team Providers Care Mass Spectroscopist Name Role Phone Mayra Navarrete Unavailable Unavailable Unavailable Augusta MORA, Dr. Johnnie Adrian Attending Unavailable Hoy, Dr. Mayra Olvera Primary Care Unavail able Augusta II, Dr. Johnnie Adrian Referring Unavailable Hoy, Dr. Mayra Olvera Primary Care Unavail able Liamuincristine II, Dr. Johnnie Adrian Referring Unavailable McGuinn II, Dr. Johnnie Adrian Attending Unavailable Hoy, Dr. Mayra Olvera Primary Care Unavail able Augusta II, Dr. Johnnie Adrian Referring Unavailable McGuinn [...] Unavailable HOY ., DR NUNEZ Consulting Unavailable SPRING, DR CJ Hernandes Consulting Unavailable HOY ., DR NUNEZ Admitting Unavailable HOY ., DR NUNEZ Attending Unavailable [facility], DR RIVAS Primary Care Unavailable LANDON ., DR NUNEZ Consulting Unavailable KWADWO CRUMP Admitting Unavailable KWADWO CRUMP Attending Unavailable LANDON ., DR NUNEZ Primary Care Unavailable KWADWO CRUMP Consulting Unavailable Mayra Navarrete Primary Care Physician MICHELLE BARRY Attending Unavailable MICHELLE BARRY Admitting Unavailable MAYRA NAVARRETE Primary Care Unavailable MAYRA NAVARRETE Primary Care Unavailable MD Mayra Navarrete Primary Care Provider [phone] MD Shaquille Lilly Attending Provider Mayra Navarrete Primary Care Unavailable Shaquille Lilly Attending Unavailable Shaquille Lilly Admitting Unavailable Shaquille LILLY Attending Unavailable Shaquille LILLY Attending Unavailable Shaquille LILLY Attending Unavailable Nguyễn VELA Attending Unavailable Nguyễn VELA Attending Unavailable Shaquille LILLY Attending Unavailable Mayra Navarrete Referring Unavailable Mayra Navarrete MD Primary Care Provider [phone] Mayra Navarrete MD Primary Care Provider [phone] FATOU CUMMINS Referring Unavailable MAYRA NAVARRETE Primary Care Unavailable FATOU CUMMINS Referring Unavailable MAYRA NAVARRETE Primary Care Unavailable FATOU CUMMINS Referring Unavailable MAYRA NAVARRETE Primary [facility] Unavailable Mayra Navarrete MD Primary [facility] Provider [phone] LORETA BARRAGAN Referring Unavailable MAYRA NAVARRETE Primary Care Unavailable YUE GARCIA Attending Unavailable MAYRA NAVARRETE Referring Unavailable MEGAN QUIÑONEZ Attending Unavailable MAYRA NAVARRETE Referring Unavailable MEGAN QUIÑONEZ Attending Unavailable RADHA MONTES Attending Unavailable SHAQUILLE [...] Attending Unavailable LAUREL, LORETA Referring Unavailable TAWANDA GONSALES Attending Unavailable GUZIMOIRA Chicas Attending Unavailable LAUREL, LORETA Referring Unavailable PETITTIRADHA Attending Unavailable POCOSCJ Referring Unavailable POCOS, CJ Cheatham Attending Unavailable POCOSCJ Referring Unavailable GUZIMOIRA Chicas Attending Unavailable LAUREL, LORETA Referring Unavailable PETITTIRADHA Attending Unavailable PETITTIRADHA Attending Unavailable RADHA MONTES Attending Unavailable RADHA MONTES Attending Unavailable FATOU CUMMINS Attending Unavailable MAYRA NAVARRETE Primary Care Unavailable FATOU CUMMINS Referring Unavailable MAYRA NAVARRETE Primary Care Unavailable FATOU CUMMINS Attending Unavailable FATOU CUMMINS Referring Unavailable MAYRA NAVARRETE Primary Care Unavailable ABDOUL TIMMONS Attending Unavailable JOHNNIE DERAS Referring Unavailable LANDONMAYRA Primary Care Unavailable LUIS DANIEL BRUNNER Attending Unavailable LUIS DANIEL BRUNNER Attending Unavailable REHANA BASHIR Attending Unavailable Allergies Allergy Classification Reported Allergen(s) Allergy Type Date of Onset Reaction(s) Facility (11 sources) bee pollen Allergy to substance (finding) [facility] y 250 DO Work Phone: (20 sources) Penicillins; Translations: [Penicillins] Allergy to drug (finding) 9 Anaphylaxis (disorder) [facility] (11 sources) Animal dander - Cats [facility] Work Phone: (1 source) Penicillins Drug allergy (disorder) [facility] (8 sources) Latex; Translations: [Latex] Drug allergy 2 Unknown (qualifier value) [facility] (6 sources) Sulfonamides (Antibiotic); Translations: [sulfa drugs] Propensity to adverse reactions to drug [facility] [place] (20 sources) penciclovir; Translations: [penciclovir] Drug Allergy 1 Anaphylaxis [facility] (3 sources) Sulfonamides (Antibiotic); Translations: [Sulfa (Sulfonamide Antibiotics)] Allergy to substance 9 Anaphylaxis [facility] (1 source) Penicillins Drug allergy (disorder) 9 [facility] (14 sources) Bee pollen; Translations: [BEE POLLEN] Drug Allergy 4 Unknown [facility] Work Phone: (9 sources) Penicillins Drug Allergy 2 Anaphylaxis [facility] Work Phone: (20 sources) Cat Dander; Translations: [CAT DANDER] Allergy to substance 4 Unknown [facility] Work Phone: (20 sources) Bee pollen Allergy to substance 4 Unknown [facility] Work Phone: (20 sources) Penicillins Propensity to adverse reactions 4 [facility] Work Phone: (20 sources) Sulfonamides (Antibiotic) Drug Intolerance 4 [facility] (20 sources) Cat Hair Extract Allergy to substance 4 Unknown [facility] (13 sources) Fluorouracil; Translations: [FLUOROURACIL] Drug Allergy 5 Rash [facility] (15 sources) Fluorouracil Drug Allergy 5 Rash [facility] (1 source) Penicillins Drug Allergy 2 Anaphylaxis [facility] Work Phone: Medications Current Medications Medication Drug Class(es) Dates Sig (Normalized) Sig (Original) acetaminophen 500 mg oral tablet (20 sources) acetaminophen (Tylenol Extra Strength) 500 MG tablet Active acetaminophen 325 mg / oxyCODONE hydrochloride [...] Start: 03-26-2014 take 2 tablets by mo [facility] once daily at bedtime Elavil 25 mg [...] same time. Active take 1 tablet by [facility] two times weekly Aspirin EC 81 MG Oral Tablet Delayed Release 1 tablet twice weekly Quantity: 25 Refills: 3 Ordered: 28-Dec-2021 Johnnie Deras MD Active benzoyl peroxide 50 mg/ml topical solution (8 sources) Start: 09-17-2024 benzoyl peroxi de 5 [...] 09/21/2023 Active ciclopirox 7.7 mg/ml topical cream (17 sources) Start: 07-23-2024 ciclopirox (Loprox) 0.77 % cream Indications: Other seborrheic dermatitis Apply thin layer to affected area once a day, 30 day supply 15 g 11 07/23/2024 Active clindamycin 300 mg oral capsule (20 sources) Lincosamide Antibacterial Start: 06-30-2024 End: 07-26-2024 clindamycin (Cleocin) 300 MG capsule Take 1 capsule by mouth in the morning and 1 capsule at noon and 1 capsule in the evening. 06/30/2024 Active Start: 05-30-2024 End: 07-26-2024 clindamycin (Clindagel) 1 % gel APPLY TO THE AFFECTED AREA(S) topically TWICE DAILY 05/30/2024 07/26/2024 Discontinued (Therapy completed) doxycycline monohydrate 100 mg oral tablet (20 [...] propionate 0.05 mg/actuat metered dose nasal spray (20 sources) Corticosteroid fluticasone (Flonase) 50 MCG/ACT nasal [...] Start: 08-25-2022 take 1 tablet by mouth once daily folic acid (Folvite) 1 MG tablet Take 1 tablet by mouth Daily 08/25/2022 Active Start: 05-30-2019 End: 05-30-2019 Folic [...] topical cream (20 sources) Corticosteroid Start: 07-11-2024 hydrocortisone 2.5 % cream Apply topically 2 times a day as needed. 07/11/2024 Active Start: 07-11-2024 End: 09-11-2024 hydrocortisone 2.5 % cream I ndications: Rash and other nonspecific skin eruption Apply topically 2 (two) times a day as needed (Rash) Apply thin layer to affected areas bid prn for flares 30 g 3 07/11/2024 09/11/2024 Discontinued ibuprofen 600 mg oral tablet (1 source) [...] May 30, 2019 2:59pm MAGNESIUM BISGLYCINATE PO (15 sources) take 300 mg by mouth in the morning MAGNESIUM BISGLYCINATE PO Take 300 mg by mouth in the morning and 300 mg in the evening. Active magnesium oxide-Mg AA chelate (Magnesium, oxide/AA chelate,) 300 mg capsule (9 sources) take 1 capsule by mouth twice [...] Status: Ordered take 2 tablets by mo ut once daily metFORMIN HCl - 500 MG [...] on Monday take 2 tablets by mo [facility] every week 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 2.5 MG tablet Take 2 tablets by mouth 1 (one) time per week. Follow directions carefully, and ask to explain any part you do not understand. Take exactly as directed. Active take 4 tablets by mo ut every week Methotrexate 2.5 MG Oral Tablet TAKE 4 TABLETS WEEKLY. Quantity: 0 Refills: 0 Ordered: 28-Dec-2021 DO Active take 1 tablet by [facility] every week Methotrexate Sodium 2.5 MG Oral [...] Bedtime, # 30 tab(s), Refills(s) 8, Pharmacy: [facility]/pharmacy #[id number], 175, cm, 03/20/23 14:33:00 [...] 3:02pm take 1 tablet by rasta th once daily cyanocobalamin (Vitamin B-12) 100 MCG tablet Take 100 mcg by mouth Daily Active Vitamin D3 (6 sources) Start: 06-29-2018 [...] 0.125 mg sublingual tablet (20 sources) End: 07-26-2024 hyoscyamine (Levsin) 0.125 MG SL tablet DISSOLVE 1 TABLET UNDER TONGUE 4 TIMES DAILY NEEDED FOR ABDOMINAL PAIN 07/26/2024 Discontinued (Therapy completed) lansoprazole 30 mg delayed release oral capsule (20 sources) Proton Pump Inhibitor Start: 03-17-2022 End: 07-26-2024 take 1 capsule by mouth in the morning lansoprazole (Prevacid) [address] capsule Take 30 mg by mouth in the morning and 30 mg before bedtime. 03/17/2022 07/26/2024 Discontinued (Therapy completed) Magnesium (11 sources) Magnesium CAPS TAKE 70 MG CAPSULES 1 DAILY Quantity: 0 Refills: 0 Ordered: 08-Dec-2021 DO Active metroNIDAZOLE 7.5 mg/ml topical lotion (4 sources) Nitroimidazole Antimicrobial Start: 07-23-2024 End: 07-26-2024 metroNIDAZOLE (Metrolotion) 0.75 % lotion lotion Indications: Other rosacea Apply thin layer to face, once daily, 30 day supply 59 mL 11 07/23/2024 07/26/2024 Discontinued (Therapy completed) mupirocin 0.02 mg/mg topical ointment (9 sources) RNA Synthetase Inhibitor Antibacterial Start: 06-30-2024 End: 07-26-2024 mupirocin (Bactroban) 2 % ointment Apply 1 application topically in the morning and 1 application before bedtime. 06/30/2024 07/26/2024 Discontinued (Therapy completed) perflutren protein A microsphere (Optison) injection 0.5 mL (1 source) Start: 07-25-2024 End: 07-25-2024 0.5 mL, intravenous, Once, On Luz Elena 07/25/24 at 1515, For 1 dose regadenoson (Lexiscan) injection 0.4 mg (1 source) Start: 08-06-2024 End: 08-06-2024 0.4 mg, intravenous, Once, On Mon08/06/24 at [...] (Myoview) injection 30 millicurie (2 sources) Start: 08-07-2024 End: 08-07-2024 30 millicurie, intravenous, Once in imaging, Starting [...] knee] Onset: 4 12-21-2023 Chronic Other aftercare (4 sources) Removal of sutures done; Translations: [Encounter for removal of sutures] 09-17-2024 Episodic Other aftercare (2 sources) detention (current) use of systemic steroids; Translations: [detention (current) use of systemic steroids] Onset: 5 Episodic Other and unspecified benign neoplasm (20 [...] Chronic Other ear and sense organ disorders (9 sources) Sensorineural hearing loss, unilateral, right ear, [...] Translations: [Other seborrheic dermatitis] 07-23-2024 Episodic Other inflammatory condition of skin (2 sources) Erythema of skin; Translations: [Other specified erythematous conditions] 10-09-2024 Episodic Other liver diseases (1 source) Fatty [...] Chronic Other nutritional; endocrine; and metabolic disorders (9 sources) Body mass index 30+ - obesity; Translations: [Body mass index (BMI) 35.0-35.9, adult] Onset: 5 12-01-2020 Chronic Other nutritional; endocrine; and metabolic disorders (2 sources) Body mass index (BMI) 35.0-35.9, adult; Translations: [Body mass index (BMI) 35.0-35.9, adult] Onset: Chronic Other skin disorders (4 sources) Eruption; Translations: [Rash and other nonspecific skin eruption] 07-11-2024 Episodic Other skin disorders (2 sources) Lentiginosis; Translations: [Other melanin hyperpigmentation] 07-23-2024 Episodic Other skin disorders (2 sources) Seborrheic keratosis; Translations: [Other seborrheic keratosis] 07-23-2024 Episodic Other skin disorders (6 sources) Epidermoid cyst; Translations: [Epidermal cyst] 07-23-2024 Episodic Other skin disorders (2 sources) Actinic keratosis; Translations: [Actinic keratosis] 07-23-2024 Episodic Other skin disorders (4 sources) Inflamed seborrheic keratosis; Translations: [Inflamed seborrheic keratosis] 07-23-2024 Episodic Other skin disorders (2 sources) Folliculitis; Translations: [Follicular disorder, unspecified] 09-17-2024 Episodic Kimberly-; endo-; and myocarditis; cardiomyopathy (except that caused by tuberculosis or sexually transmitted disease) (13 sources) Cardiomyopathy; Translations: [Cardiomyopathy, unspecified] Onset: 5 07-23-2024 Chronic Residual codes; unclassified (20 sources) Sleep apnea; Translations: [Unspecified sleep apnea] Onset: 4 07-14-2023 Chronic Residual codes; unclassified (2 sources) Obstructive sleep apnea syndrome; Translations: [Obstructive sleep apnea (adult) (pediatric)] 07-23-2024 Chronic Residual codes; unclassified (2 sources) Obstructive sleep apnea (adult) (pediatric); Translations: [Obstructive sleep apnea (adult) (pediatric)] Onset: 02-15-202 4 Chronic Residual codes; unclassified (1 source) [...] Drug therapy finding 08-23-2019 Unclassified (1 source) 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 (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) use of antimetabolite agent; Translations: [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 (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) use of antimetabolite agent] Onset: 2 Past or Other Problems Problem Classification Problem Date Documented Da te Episodic/Chronic Abdominal hernia (20 sources) Hiatal hernia; Translations: [Diaphragmatic hernia without obstruction or gangrene] Onset: 08-16-2023 07-14-2023 Episodic Abdominal pain (20 sources) Epigastric pain; Translations: [Epigastric pain] Onset: 08-16-2023 12-01-2020 Episodic Calculus of urinary tract (20 sources) [...] 05-21-2022 12-21-2023 Episodic Other aftercare (20 sources) 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; Translations: [detention 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] Onset: 05-27-2022 12-21-2023 Episodic Other [...] Onset: 08-24-2023 Resolved: 07-23-2024 08-24-2023 Episodic Other lower respiratory disease (4 sources) Shortness of breath; Translations: [Shortness of breath] Onset: 08-24-2023 Episodic Other lower respiratory disease (2 sources) Other forms of dyspnea; Translations: [Other forms of dyspnea] Onset: 07-23-2024 Episodic Other nervous system disorders (20 sources) [...] Onset: 08-16-2023 Resolved: 12-21-2023 12-01-2020 Episodic Other nutritional; endocrine; and metabolic disorders (6 sources) Weight decreased; Translations: [Abnormal weight loss] Onset: 08-16-2023 Resolved: 12-21-2023 12-21-2023 Episodic Other screening for suspected conditions (not [...] [Other psychoactive substance use, unspecified, uncomplicated] Onset: 10-12-2023 12-21-2023 Episodic Unclassified (10 sources) Onset: 11-27-2023 Resolved: 08-20-2024 11-27-2023 Unclassified (1 source) detention (current) use of antimetabolite agent; Translations: [detention (current) use of antimetabolite agent] Onset: 03-18-2025 Results Test Name Value Interpretation Reference Range Facil ity CBC WITH AUTO DIFFERENTIALon 03-18-2025 Basophils (Bld) [#/Vol] 0.04 10*3/uL Normal 0.00-0.20 [facility] Comment on above: Performed By: #### L [id number] #### [facility] ([facility]) [address] [place] [address] Basophils/100 WBC (Bld) 0.4 % Normal 0.0-1.0 [facility] Comment on above: Performed By: #### L [id number] #### [facility] ([facility]) [address] [place] [address] Eosinophils (Bld) [#/Vol] 0.12 10*3/uL Normal 0.00-0.50 [facility] Comment on above: Performed By: #### L [id number] #### [facility] ([facility] [address] [place] [address] Eosinophils/100 WBC (Bld) 1.1 % Normal 0.0-6.0 [facility] Comment on above: Performed By: #### L [id number] #### [facility] ([facility]) [address] [place] [address] Erythrocyte distribution width (RBC) [Ratio] 14.1 % Normal 11.5-15.0 [facility] Comment on above: Performed By: #### L [id number] #### [facility] ([facility]) [address] [place] [address] ERYTHROCYTE MEAN CORPUSCULAR HEMOGLOBIN CONCENTRATION (G/DL) BY AUTOMATED 33.5 g/dL Normal 32.0-35.0 [facility] Comment on above: Performed By: #### L [id number] #### [facility] ([facility]) [address] [place] [address] Hematocrit (Bld) [Volume fraction] 44.5 % Normal 39.0-50.0 [facility] Comment on above: Performed By: #### L [id number] #### [facility] ([facility]) [address] [place] [address] Hemoglobin (Bld) [Mass/Vol] 14.9 g/dL Normal 13.0-17.0 [facility] Comment on above: Performed By: #### L [id number] #### [facility] ([facility]) [address] [place] [address] Immature granulocytes (Bld) [#/Vol] 0.08 10*3/uL Normal 0.00-0.20 [facility] Comment on above: Performed By: #### L [id number] #### [facility] ([facility]) [address] [place] [address] Immature granulocytes/100 WBC (Bld) 0.8 % Normal 0.0-1.0 [facility] Comment on above: Performed By: #### L [id number] #### [facility] [address] [place] [address] Lymphocytes (Bld) [#/Vol] 1.39 10*3/uL Normal 1.20-4.00 [facility] Comment on above: Performed By: #### L [id number] #### [facility] ([facility]) [address] [place] [address] Lymphocytes/100 WBC (Bld) 13.2 % Low 20.0-45.0 [facility] Comment on above: Performed By: #### L [id number] #### [facility] ([facility]) [address] [place] [place] [address] MCH (RBC) [Entitic mass] 31.8 pg Normal 27.0-33.0 [facility] Comment on above: Performed By: #### L [id number] #### [facility]) [address] [place] [place] [address] MCV (RBC) [Entitic vol] 95.1 fL Normal 82.0-98.0 [facility] Comment on above: Performed By: #### L [id number] #### [facility] [address] [place] [address] Monocytes (Bld) [#/Vol] 0.77 10*3/uL Normal 0.10-1.00 [facility] Comment on above: Performed By: #### L [id number] #### [facility] [address] [place] [address] Monocytes/100 WBC (Bld) 7.3 % Normal 5.0-12.0 [facility] Comment on above: Performed By: #### L [id number] #### [facility]) [address] [place] [address] Neutrophils (Bld) [#/Vol] 8.11 10*3/uL High 1.60-7.60 [facility] Comment on above: Performed By: #### L [id number] #### [facility] ([facility]) [address] [place] [address] Neutrophils/100 WBC (Bld) 77.2 % High 40.0-72.0 [facility] Comment on above: Performed By: #### L [id number] #### [facility] [address] [place] [address] NRBC (PER 100 WBCS) BY AUTOMATED COUNT 0.0 % Normal 0 [facility] Comment on above: Performed By: #### L [id number] #### [facility]) [address] [place] [address] PLATELETS (10*3/UL) IN BLOOD AUTOMATED COUNT 189 10*3/uL Normal 150-400 [facility] Comment on above: Performed By: #### L [id number] #### [facility] [address] [place] [address] RBC (Bld) [#/Vol] 4.68 10*6/uL Normal 4.20-5.70 [facility] Comment on above: Performed By: #### L [id number] #### [facility]) [address] [place] [address] WBC (Bld) [#/Vol] 10.51 10*3/uL Normal 4.00-10.60 [facility] Comment on above: Performed By: #### L [id number] #### [facility] ([facility]) [address] [place] [address] COMPREHENSIVE METABOLIC PANE [place] 03-18-2025 Albumin [Mass/Vol] 4.3 g/dL Normal 3.5-5.7 [facility] Comment on above: Performed By: #### L [id number] #### [facility] ([facility]) [address] [place] [address] ALP [Catalytic activity/Vol] 86 U/L Normal 34-104 [facility] Comment on above: Performed By: #### L [id number] #### [facility] ([facility]) [address] [place] [address] ALT [Catalytic activity/Vol] 21 U/L Normal 7-52 [facility] Comment on above: Performed By: #### L [id number] #### [facility] ([facility]) [address] [place] [address] Anion gap [Moles/Vol] 10 mmol/L Normal 7-20 [facility] Comment on above: Performed By: #### L [id number] #### [facility] ([facility]) [address] [place] [address] AST [Catalytic activity/Vol] 22 U/L Normal 13-39 [facility] Comment on above: Performed By: #### L [id number] #### [facility] ([facility]) [address] [place] [address] Bilirubin [Mass/Vol] 0.8 mg/dL Normal 0.3-1.0 [facility] Comment on above: Performed By: #### L [id number] #### [facility] ([facility]) [address] [place] [address] Calcium [Mass/Vol] 9.6 mg/dL Normal 8.6-10.3 [facility] Comment on above: Performed By: #### L [id number] #### [facility] ([facility]) [address] [place] [address] Chloride [Moles/Vol] 101 mmol/L Normal 98-107 [facility] Comment on above: Performed By: #### L [id number] #### [facility] ([facility]) [address] [place] [address] CO2 [Moles/Vol] 29 mmol/L Normal 21-31 [facility] Comment on above: Performed By: #### L [id number] #### [facility] ([facility]) [address] [place] [address] Creatinine [Mass/Vol] 1.13 mg/dL Normal 0.70-1.30 [facility] Comment on above: Performed By: #### L [id number] #### [facility] ([facility]) [address] [place] [address] GLOMERULAR FILTRATION RATE ML/MIN/1.73 SQ M.PREDICTED 64.5 mL/min/1.73m*2 Normal >60.0 [facility] Comment on above: Result Comment: The [facility]???s estimated glomerular filtration rate (eGFR) will no [...] group of individuals. Performed By: #### L [id number] #### [facility] ([facility]) [address] [place] [address] Glucose [Mass/Vol] 113 mg/dL High 70-100 [facility] Comment on above: Performed By: #### L [id number] #### [facility] ([facility]) [address] [place] [address] Potassium [Moles/Vol] 4.2 mmol/L Normal 3.5-5.1 [facility] Comment on above: Performed By: #### L [id number] #### [facility]) [address] [place] [address] Protein [Mass/Vol] 7.2 g/dL Normal 6.0-8.3 [facility] Comment on above: Performed By: #### L [id number] #### [facility] ([facility]) [address] [place] [address] Sodium [Moles/Vol] 136 mmol/L Normal 136-145 [facility] Comment on above: Performed By: #### L [id number] #### [facility] ([facility]) [address] [place] [address] Urea nitrogen [Mass/Vol] 19 mg/dL Normal 01-31 [facility] Comment on above: Performed By: #### L [id number] #### [facility] ([facility]) [place] [address] UREA NITROGEN/CREATININE (MASS RATIO) IN SER/PLAS 16.8 Normal [facility] Comment on above: Performed By: #### L [id number] #### [facility] ([facility]) [address] [place] [address] Follow-Upon 03-18-2025 Follow-Up [id number] Travis Coburn [address] [facility] Provider Department Center 03/18/2025 LUIS DANIEL HAYNES [facility] Eloise Heal No family history on file Level of Service:[id number] [place] OFFICE/OUTPATIENT ESTABLISHED MOD MDM 30 MIN Reason for Visit and Comments: Follow-up [992694] - 6 month follow up [facility] 36on 01-13-2025 36 PT calling for Methotrexate order; currently taking 7.5 mg (3 tabs weekly) Last visit: 09/10/24 Next visit: 03/18/25 CBC/CMP: 09/10/24 Please review ORDER for clarification. Ras Cummins RN [facility] [facility] 01-13-2025 Refill [id number] Travis Coburn 1940 [facility] Provider Department Center 01/13/2025 RAS GREGORY C RHEUM Eloise Heal No family history on file Reason for Visit and Comments: Med Refill [086139] [facility] MR TRANSFER OF OUTSIDE FILMS on 10-16-2024 MR TRANSFER OF OUTSIDE FILMS Outside images for comparison or treatment purposes, not interpreted by Radiologists. Normal [facility] Study Interpretation of outs lianne studyon 10-16-2024 Outside images for comparison or treatment purposes, not interpreted by Radiologists. IMAGING No Panel Informationon 10-09 Lesion length (cm): 1.5 Lesion width (cm): [...] 9 ml Estimated blood loss: 1 ml [facility] Complexity: Intermediate Final length (cm): 2.8 Reason [...] uncontrollable bleeding, or complications. Dressing type: bandage [facility] No Panel Informationon 09-17 [facility] CBC WITH AUTO DIFFERENTIALon 09-10-2024 Basophils (Bld) [#/Vol] 0.05 10*3/uL Normal 0.00-0.20 [facility] Comment on above: Performed By: #### L [id number] #### [facility] (BEAKER) [address] [place] [address] Basophils/100 WBC (Bld) 0.6 % Normal 0.0-1.0 [facility] Comment on above: Performed By: #### L [id number] #### [facility] (BE[facility]) [address] [facility] [place] [address] Eosinophils (Bld) [#/Vol] 0.17 10*3/uL Normal 0.00-0.50 [facility] Comment on above: Performed By: #### L [id number] #### [facility] (BEAKER) [address] [place] [address] Eosinophils/100 WBC (Bld) 1.9 % Normal 0.0-6.0 [facility] Comment on above: Performed By: #### L [id number] #### [facility] (BEAKER) [address] [address] Erythrocyte distribution width (RBC) [Ratio] 13.3 % Normal 11.5-15.0 [facility] Comment on above: Performed By: #### L [id number] #### [facility] (BEAKER) [address] [place] [address] ERYTHROCYTE MEAN CORPUSCULAR HEMOGLOBIN CONCENTRATION (G/DL) BY AUTOMATED 33.1 g/dL Normal 32.0-35.0 [facility] Comment on above: Performed By: #### L [id number] #### [facility] (BEAKER) [address] [place] [address] Hematocrit (Bld) [Volume fraction] 44.7 % Normal 39.0-55.0 [facility] Comment on above: Performed By: #### L [id number] #### [facility] (BEAKER) [address] [place] [address] Hemoglobin (Bld) [Mass/Vol] 14.8 g/dL Normal 13.0-17.0 [facility] Comment on above: Performed By: #### L [id number] #### [facility] (BEAKER) [address] [place] [address] Immature granulocytes (Bld) [#/Vol] 0.05 10*3/uL Normal 0.00-0.20 [facility] Comment on above: Performed By: #### L [id number] #### [facility] (BEAKER) [address] [place] [address] Immature granulocytes/100 WBC (Bld) 0.6 % Normal 0.0-1.0 [facility] Comment on above: Performed By: #### L [id number] #### [facility] (BEAKER) [address] [place] [address] Lymphocytes (Bld) [#/Vol] 1.81 10*3/uL Normal 1.20-4.00 [facility] Comment on above: Performed By: #### L [id number] #### [facility] (BEAKER) [address] [place] [address] Lymphocytes/100 WBC (Bld) 20.6 % Normal 20.0-45.0 [facility] Comment on above: Performed By: #### L [id number] #### [facility] (BEAKER) [address] [place] [address] MCH (RBC) [Entitic mass] 31.1 pg Normal 27.0-33.0 [facility] Comment on above: Performed By: #### L [id number] #### [facility] (BEAKER) [address] [place] [address] MCV (RBC) [Entitic vol] 93.9 fL Normal 82.0-98.0 [facility] Comment on above: Performed By: #### L [id number] #### [facility] (BEAKER) [address] [place] [address] Monocytes (Bld) [#/Vol] 0.64 10*3/uL Normal 0.10-1.00 [facility] Comment on above: Performed By: #### L [id number] #### [facility] [address] [place] [address] Monocytes/100 WBC (Bld) 7.3 % Normal 5.0-12.0 [facility] Comment on above: Performed By: #### L [id number] #### [facility] ([facility]ANNER) [address] [place] [address] Neutrophils (Bld) [#/Vol] 6.06 10*3/uL Normal 1.60-7.60 [facility] Comment on above: Performed By: #### L [id number] #### [facility] [address] [place] [address] Neutrophils/100 WBC (Bld) 69.0 % Normal 40.0-72.0 [facility] Comment on above: Performed By: #### L [id number] #### [facility] ([facility]) [address] [place] [address] NRBC (PER 100 WBCS) BY AUTOMATED COUNT 0.0 % Normal 0 [facility] Comment on above: Performed By: #### L [id number] #### [facility] [address] [place] [address] PLATELETS (10*3/UL) IN BLOOD AUTOMATED COUNT 187 10*3/uL Normal 150-400 [facility] Comment on above: Performed By: #### L [id number] #### [facility] [address] [place] [address] RBC (Bld) [#/Vol] 4.76 10*6/uL Normal 4.20-5.70 [facility] Comment on above: Performed By: #### L [id number] #### [facility] (BEAKER) [address] [place] [address] WBC (Bld) [#/Vol] 8.78 10*3/uL Normal 4.00-10.60 [facility] Comment on above: Performed By: #### L [id number] #### [facility] ([facility]) [address] [place] [address] COMPREHENSIVE METABOLIC PANE [place] 09-10-2024 Albumin [Mass/Vol] 4.3 g/dL Normal 3.5-5.7 [facility] Comment on above: Performed By: #### L [id number] #### [facility] ([facility]) [address] [place] [address] ALP [Catalytic activity/Vol] 89 U/L Normal 34-104 [facility] Comment on above: Performed By: #### L [id number] #### [facility] ([facility]) [address] [place] [address] ALT [Catalytic activity/Vol] 18 U/L Normal 7-52 [facility] Comment on above: Performed By: #### L [id number] #### [facility] ([facility]) [address] [place] [address] Anion gap [Moles/Vol] 11 mmol/L Normal 7-20 [facility] Comment on above: Performed By: #### L [id number] #### [facility] ([facility]) [address] [place] [address] AST [Catalytic activity/Vol] 17 U/L Normal 13-39 [facility] Comment on above: Performed By: #### L [id number] #### [facility] ([facility]) [address] [place] [address] Bilirubin [Mass/Vol] 0.6 mg/dL Normal 0.3-1.0 [facility] Comment on above: Performed By: #### L [id number] #### [facility] ([facility]) [address] [place] [address] Calcium [Mass/Vol] 9.6 mg/dL Normal 8.6-10.3 [facility] Comment on above: Performed By: #### L [id number] #### [facility] ([facility]) [address] [place] [address] Chloride [Moles/Vol] 103 mmol/L Normal 98-107 [facility] Comment on above: Performed By: #### L [id number] #### [facility] ([facility]) [address] [place] [address] CO2 [Moles/Vol] 27 mmol/L Normal 21-31 [facility] Comment on above: Performed By: #### L [id number] #### [facility] ([facility]) [address] [place] [address] Creatinine [Mass/Vol] 1.21 mg/dL Normal 0.70-1.30 [facility] Comment on above: Performed By: #### L [id number] #### [facility] ([facility]) [address] [place] [address] GLOMERULAR FILTRATION RATE ML/MIN/1.73 SQ M.PREDICTED 59.8 mL/min/1.73m*2 Low >60.0 [facility] Comment on above: Result Comment: [facility]???s estimated glomerular filtration rate (eGFR) will no [...] individuals. Performed By: #### L [id number] #### [facility] ([facility]) [address] [place] [address] Glucose [Mass/Vol] 108 mg/dL High 70-100 [facility] Comment on above: Performed By: #### L [id number] #### [facility] ([facility]) [address] [place] [address] Potassium [Moles/Vol] 4.4 mmol/L Normal 3.5-5.1 [facility] Comment on above: Performed By: #### L [id number] #### [facility] ([facility]) [address] [place] [address] Protein [Mass/Vol] 7.1 g/dL Normal 6.0-8.3 [facility] Comment on above: Performed By: #### L [id number] #### [facility] ([facility]) [address] [place] [address] Sodium [Moles/Vol] 137 mmol/L Normal 136-145 [facility] Comment on above: Performed By: #### L [id number] #### [facility] ([facility]) [address] [place] [address] Urea nitrogen [Mass/Vol] 21 mg/dL Normal 7-25 [facility] Comment on above: Performed By: #### L [id number] #### [facility] ([facility]) [address] [place] [address] UREA NITROGEN/CREATININE (MASS RATIO) IN SER/PLAS 17.4 Normal [facility] Comment on above: Performed By: #### L [id number] #### [facility] ([facility]) [address] [place] [address] Follow-Upon 09-10-2024 Follow-Up [id number] Travis Coburn 1940 M Date Provider Department [place] 09/10/2024 LUIS DANIEL HAYNES C RHEUM Eloise Heal No family history on file Level of Service:99620 [place] OFFICE/OUTPATIENT ESTABLISHED MOD MDM 30 MIN Reason for Visit and Comments: Psoriatic arthropathy [Other] Follow-up [451193] Normal [facility] HEMOGLOBIN A1Con 09-10-2024 Glucose [Mass/Vol] 151 mg/dL Normal [facility] Comment on above: Performed By: #### L AB90 #### [facility] ([facility]) [address] [place] [address] HbA1c (Bld) [Mass fraction] 6.9 % High 4.0-6.0 [facility] Comment on above: Performed By: #### L AB90 #### [facility] (JOELLE) [address] [place] [address] [place] 09-10-2024 Lab [id number] Travis Coburn 1940 M Date Provider Department Center 09/10/2024 2245-[facility] RESOURCE [facility] No family history on file Normal [facility] No Panel Informationon 09-10 Type of biopsy: [...] 1 Specimen sent for: H&E Photo taken [facility] Heart Perfusion W stress and W radionuclide Estefany 08-07-2024 Normal [facility] Myoview cardiac perfusion stress test. No evidence of ischemia or myocardial infarction by perfusion imaging. Normal left ventricular systolic function, ejection fraction 57%. No change when compared to previous study. Signed by: Abdoul Timmons 08/07/2024 5:59 PM Dictation workstation: [id number] Interpreted By: Abdoul Timmons, Jason Olvera STUDY: MYOCARDIAL PERFUSION STRESS TEST WITH LEXISCAN Performing facility: [facility], [address] [place] [address], [address], [place], [place] [address] Provider: Fatou Cummins RN, DIFFERENTIAL SPECIALIST PCP: Dr. Mindy Navarrete Supervising provider: Naomi Hood MD, [facility] INDICATION: SOBOE Fatigue HISTORY: Gender: M; Age: 83 y/o ; Height: HT 175.3 cm cm; Weight: WT 111.585 kg kg. CAD; High Cholesterol; HTN; Arrhythmias; SOB; Fatigue; Quit smoking 33 years ago. Cardiac catheterization on 2018. COMPARISON: Previous nuclear testing completed at 2021. ACCESSION NUMBER(S): [id number] ORDERING CLINICIAN: FATOU CUMMINS TECHNIQUE: TWO DAY [...] no evidence of breast/motion/diaphr agmatic attenuation artifact. [facility] Abdoul Timmons MD - 08/07/2024 Interpreted By: Abdoul Timmons and Giannuzzi Michael STUDY: MYOCARDIAL PERFUSION STRESS TEST WITH LEXISCAN Performing facility: [facility], [address] [place] [address], [address], [address] Provider: Fatou Cummins RN, DIFFERENTIAL SPECIALIST PCP: Dr. Mindy Navarrete Supervising provider: Naomi Hood MD, [facility] INDICATION: SOBOE Fatigue HISTORY: Gender: M; Age: 83 y/o ; Height: HT 175.3 cm cm; Weight: WT 111.585 kg kg. CAD; High Cholesterol; HTN; Arrhythmias; SOB; Fatigue; Quit smoking 33 years ago. Cardiac catheterization on 2018. COMPARISON: Previous nuclear testing completed [id number] at 2021. ACCESSION NUMBER(S): [id number] ORDERING CLINICIAN: FATOU CUMMINS TECHNIQUE: TWO DAY [...] Abdoul Timmons 08/07/2024 5:59 PM Dictation workstation: [id number] [facility] Work Phone: NM Heart Perfusion W stress and W radionuclide IVOrdered By: Abdoul Timmons on 08-07-2024 [facility] Work Phone: [place] Heart Perfusion W stress and W radionuclide Estefany 08-06-2024 Radiology Study observation (narrative) [facility] Work Phone: NUCLEAR STRESS TESTon 2024 NUCLEAR STRESS TEST Interpreted By: Abdoul Timmons and Giannuzzi Michael STUDY: MYOCARDIAL PERFUSION STRESS TEST WITH LEXISCAN Performing facility: [facility], [address] [place] [address], [address], [address] Provider: Fatou Cummins RN, DIFFERENTIAL SPECIALIST PCP: Dr. Mindy Navarrete Supervising provider: Naomi Hood MD, [facility] INDICATION: SOBOE Fatigue HISTORY: Gender: M; Age: 83 y/o ; Height: HT 175.3 cm cm; Weight: WT 111.585 kg kg. CAD; High Cholesterol; HTN; Arrhythmias; SOB; Fatigue; Quit smoking 33 years ago. Cardiac catheterization on 2018. COMPARISON: Previous nuclear testing completed [id number] at 2021. ACCESSION NUMBER(S): [id number] ORDERING CLINICIAN: FATOU CUMMINS TECHNIQUE: TWO DAY [...] breast/motion/diaphr agmatic attenuation artifact. IMPRESSION: Normal [facility] cardiac perfusion stress test. No evidence of ischemia or myocardial infarction by perfusion imaging. Normal left ventricular systolic function, ejection fraction 57%. No change when compared to previous study. Signed by: Abdoul Timmons 08/07/2024 5:59 PM Dictation workstation: [id number] [facility] 36on 08-01-2024 36 LV 02/15/24 UPCOMING 09/10/24 LABS 02/15/24 CMP, CBC [facility] [place] 08-01-2024 Refill [id number] Travis Coburn 1940 M Date Provider Department Center 08/01/2024 [facility] RHEUM Eloise Heal No family history on file Reason for Visit and Comments: Med Refill [743629] [facility] TRANSTHORACIC ECHO (TTE) COM PLETEon 07-25-2024 TRANSTHORACIC ECHO (TTE) COMPLETE [address], [address] [address] TRANSTHORACIC ECHOCARDIOGRAM REPORT Patient Name: TRAVIS COBURN Reading Physician: [id number] Abdoul Timmons MD Study Date: 07/25/2024 Ordering Provider: [id number] FATOU CUMMINS MRN/PID: [id number] Fellow: Nurse: Ector Cornelius RN Date of /Age: 4 1940 / 83 years Assistance Representative: Alexandra Weiss RD, T Gender Assigned at Additional Staff: : Height: 175.26 cm Admit Date: Weight: 111.59 kg Admission Status: BSA / BMI: 2.26 m2 / 36.33 Department Location: [address] Blood Pressure: 126 /74 mmHg Study Type: TRANSTHORACIC ECHO (TTE) COMPLETE Diagnosis/ICD: Shortness of breath-R06.02; Essential (primary) hypertension-I10 Indication: CAD, Hyperlipidemia, Former Smoker, Fatigue, Cardiomyopathy, KASSI CPT Codes: Echo Complete w Full Doppler-59569 Study Detail: The following Echo studies were [...] 0.8 m/s (0.6-0.9m/s) PV Max P.3 mmHg [id number] Abdoul Timmons MD Electronically signed on 07/25/2024 at 4:23:31 PM Final [facility] US Heart TransthoracicOrdere d By: Abdoul Timmons on 07-25-2024 Aortic Valve Area by Continuity of Peak Velocity 2.58 cm2 [facility] Work Phone: Aortic Valve Area by Continuity of VTI 2.26 cm2 [facility] Work Phone: AV mn grad 4 mmHg [facility] Work Phone: AV pk grad 7 mmHg [facility] Work Phone: AV pk homar 1.33 m/s [facility] Work Phone: LV A4C EF 68.4 [facility] Work Phone: LV EF 53 % [facility] Work Phone: LVIDd 5.17 cm [facility] Work Phone: LVOT diam 2.3 cm [facility] Work Phone: MV avg E/e' ratio 7.1 [facility] Work Phone: MV E/A ratio 0.56 [facility] Work Phone: [facility] Work Phone: Heart Transthoracicon [address], [place] [address] TRANSTHORACIC ECHOCARDIOGRAM REPORT Patient Name: TRAVIS Perry ALMAS Perez Physician: [id number] Abdoul Timmons MD Study Date: 07/25/2024 Ordering Provider: [id number] FATOU CUMMINS MRN/PID: [id number] Fellow: Nurse: Ector Cornelius RN Date of /Age: 4 1940 / 83 years Assistance Representative: Alexandra Weiss RDCS, JANNYT Gender Assigned at M Additional Staff: : Height: 175.26 cm Admit Date: Weight: 111.59 kg Admission Status: BSA / BMI: 2.26 m2 / 36.33 Department Location: [facility] kg/m2 [facility] Blood Pressure: 126 /74 mmHg Study Type: TRANSTHORACIC ECHO (TTE) COMPLETE Diagnosis/ICD: Shortness of breath-R06.02; Essential (primary) hypertension-I10 Indication: CAD, Hyperlipidemia, Former Smoker, Fatigue, Cardiomyopathy, KASSI CPT Codes: Echo Complete w Full Doppler-76657 Study Detail: The following Echo studies were [...] not included)... Abdoul Quijano MD - 07/25/[address], [address] [place] [address] TRANSTHORACIC ECHOCARDIOGRAM REPORT Patient Name: TRAVIS Perez Physician: [id number] Abdoul Timmons MD Study Date: 07/25/2024 Ordering Provider: [id number] FATOU CUMMINS MRN/PID: [id number] Fellow: Nurse: Ector Cornelius RN Date of /Age: 4 1940 / 83 years Assistance Representative: Alexandra Weiss RDCS, RVT Gender Assigned at M Additional Staff: : Height: 175.26 cm Admit Date: Weight: 111.59 kg Admission Status: BSA / BMI: 2.26 m2 / 36.33 Department Location: [facility] kg/m2 [facility] [place] Blood Pressure: 126 /74 mmHg Study Type: TRANSTHORACIC ECHO (TTE) COMPLETE Diagnosis/ICD: Shortness of breath-R06.02; Essential (primary) hypertension-I10 Indication: CAD, Hyperlipidemia, Former Smoker, Fatigue, Cardiomyopathy, KASSI CPT Codes: Echo Complete w Full Doppler-64482 Study Detail: The following Echo studies were [...] 0.8 m/s (0.6-0.9m/s) PV Max P.3 mmHg [id number] Abdoul Timmons MD Electronically signed on 07/25/2024 at 4:23:31 PM Final [facility] Work Phone: No Panel Informationon 07-23 [facility] Optical coherence tomography study reporton 06-25-2024 [facility] Radiology Study observation (narrative) [facility] 36on 06-03-2024 36 Last Visit: 02/15/24 Upcoming Visit: 09/11/23 [facility] 06-02-2024 Refill [id number] Travis Coburn 1940 M [facility] Provider Department Center 06/02/2024 LUIS DANIEL HAYNES [facility] RHEUM Eloise Heal No family history on file Reason for Visit and Comments: Med Refill [700385] [facility] Follow-Upon 04-17-2024 Follow-Up [id number] Travis Coburn 1940 [facility] Provider Department Center 04/17/2024 [facility] NEPHRO Comprehensiv No family history on file Level of Service:84024 [place] OFFICE/OUTPATIENT ESTABLISHED MOD MDM 30 MIN Reason for Visit and Comments: Follow-up [260025] [facility] ALBUMINon 04-04-2024 Albumin [Mass/Vol] 4.2 g/dL Normal 3.5-5.7 [facility] Comment on above: Performed By: #### L AB45 #### [facility] (BEAKER) [address] [place] [address] BASIC METABOLIC PANELon 09-2 Anion gap [Moles/Vol] 7 mmol/L Normal 7-20 [facility] Comment on above: Performed By: #### L AB15 #### [facility] ([facility]) [address] [place] [address] Calcium [Mass/Vol] 9.5 mg/dL Normal 8.6-10.3 [facility] Comment on above: Performed By: #### L AB15 #### [facility] ([facility]) [address] [place] [address] Chloride [Moles/Vol] 102 mmol/L Normal 98-107 [facility] Comment on above: Performed By: #### L AB15 #### [facility] ([facility]) [address] [place] [address] CO2 [Moles/Vol] 31 mmol/L Normal 21-31 [facility] Comment on above: Performed By: #### L AB15 #### [facility] ([facility]) [address] [place] [address] Creatinine [Mass/Vol] 1.10 mg/dL Normal 0.70-1.30 [facility] Comment on above: Performed By: #### L AB15 #### [facility] ([facility]) [address] [place] [address] GLOMERULAR FILTRATION RATE ML/MIN/1.73 SQ M.PREDICTED 67.0 mL/min/1.73m*2 Normal >60.0 [facility] Comment on above: Result Comment: [facility]???s estimated glomerular filtration rate (eGFR) will no [...] group of individuals. Performed By: #### L AB15 #### [facility] ([facility]) [address] [place] [address] Glucose [Mass/Vol] 87 mg/dL Normal 70-100 [facility] Comment on above: Performed By: #### L AB15 #### [facility] ([facility]) [address] [place] [address] Potassium [Moles/Vol] 4.0 mmol/L Normal 3.5-5.1 [facility] Comment on above: Performed By: #### L AB15 #### [facility] ([facility]) [address] [place] [address] Sodium [Moles/Vol] 136 mmol/L Normal 136-145 [facility] Comment on above: Performed By: #### L AB15 #### [facility] ([facility]) [address] [place] [address] Urea nitrogen [Mass/Vol] 18 mg/dL Normal 7-25 [facility] Comment on above: Performed By: #### L AB15 #### [facility] ([facility]) [address] [place] [address] UREA NITROGEN/CREATININE (MASS RATIO) IN SER/PLAS 16.4 Normal [facility] Comment on above: Performed By: #### L AB15 #### [facility] ([facility]) [address] [place] [address] CREATININE, URINE, RANDOMon 04-04-2024 Creatinine (U) [Mass/Vol] 91.0 mg/dL Normal 26-299 [facility] Comment on above: Performed By: #### L [id number] #### [facility] ([facility]) [address] [place] [address] HEMOGLOBINon 04-04-2024 Hemoglobin (Bld) [Mass/Vol] 14.5 g/dL Normal 13.0-17.0 [facility] Comment on above: Performed By: #### L AB113 #### [facility] (BEAKER) [address] [place] [address] MAGNESIUMon 04-04-2024 Magnesium [Mass/Vol] 1.7 mg/dL Low 1.9-2.7 [facility] Comment on above: Performed By: #### L AB103 #### [facility] (BEAKER) [address] [place] [address] PHOSPHORUSon 04-04-2024 Magnesium [Mass/Vol] 2.5 mg/dL Normal 2.5-5.0 [facility] Comment on above: Performed By: #### L AB113 #### [facility] ([facility]) [address] [place] [address] PROTEIN, URINE, RANDOMon Protein (U) [Mass/Vol] 6.0 mg/dL Normal [facility] Comment on above: Result Comment: Ther e are no established reference values for random urine specimens. Performed By: #### L AB113 #### [facility] ([facility]) [address] [place] [address] Ambulatory Visit Summaryon 0 09-13-2023 Ambulatory Visit [...] to do next Scheduled Follow-Up Appointments Monday 11:30 AM EDT With: MIRIAN TURNER, Nguyễn ePter Where: [facility] Emergency Department [...] influenza virus vaccine, inactivated 05/22/2014 Recorded Normal [facility] Comment on above: Result Comment: Elec [...] vaccine, in (more content not included)... Normal [facility] Comment on above: Result Comment: Elec tronically Signed By: MAXX TURNER, Shaquille Steele\Date and Time Signed: 09/01/23 14:34 EST Pathology Noteon 08-28-2023 Pathology Note [id number] #[id number] [facility] Ambulatory Visit Summaryon 0 08-22-2023 [...] Emergency Department General Surgery Office/Clini c Noteon 08-22-2023 General [...] SARS-CoV (more content not included)... Normal [facility] Comment on above: Result Comment: Elec tronically Signed By: MAXX TURNER, Shaquille Peter\Lilianbr\Date and Time Signed: 08/22/23 14:34 EST [place] 08-22-2023 L Specimen: [id number] Received: 08/23/23 Status: JUAN LUIS Carty Num: [id number] Spec Type: Surgical Subm Dr: Shaquille Lilly MD FACS Tissues: A Skin-Other than Cyst, tag, debridement or plastic repair (RT POST CALF) Procedures: HE/3, Gross/Micro L4 Age/ Patient Sex Location Account Attending Physician Travis Coburn 82/M LABELL [id number] Shaquille Lilly MD FACS SPEC NUM: [id number] RECD: 08/23/23 STATUS: JUAN LUIS CARTY NUM: [id number] APRIL: 08/22/23- SUBM DR: Shaquille Lilly MD FACS ENTERED: 08/23/23 [facility] DR: Lydia,Artur SPEC TYPE: Surgical DEPT: NICOLA TENA ENTERED BY: [id number] RECV BY: [id number] ORDERED: HE/3, Gross/Micro L4 ORDERED: HE/3, Gross/Micro [...] - Tips A2-A3 - Remainder CPT Codes 72504 Specimen: [id number] Received: 08/23/23 Status: JUAN LUIS Carty Num: [id number] Spec Type: Surgical Subm Dr: Shaquille Lilly MD FACS Tissues: A Skin-Other than Cyst, tag, debridement or plastic repair (RT POST CALF) Procedures: KRANTHI/Holly Reese/Aaron L4 Patient: Travis Coburn [id number] (Continued) Signed (signature on file) Joon Bermudez MD 08/24/23 2207 [facility] Ambulatory Visit Summaryon 0 07-18-2023 [...] do next Scheduled Follow-Up Appointments Monday. 2023 1:40 PM EST With: Shaquille LILLY MD Where: General Surgery Maxx/Deisy Al Normal [address] [place] [address]- \.br\ Medications\.br\ What How Much When Instructions\.br\ [...] for choosing us for your care.\.br\ \.br\ [facility] Physician Referralon 024 Physician Referral [phone] [id number] #1.00TIFF Normal [facility] Physician Referral [phone] [id number] #1.00TIFF Normal [facility] FLUORO FOR SURGICAL PROCEDUR ESon 04-05-2023 FLUORO FOR SURGICAL PROCEDURES RADRPT Radiology exam is complete. No Radiologist dictation. Please follow up with ordering provider. Final result Normal [facility] SURGICALon 04-05-2023 SURGICAL [place] [facility] TRAVIS COBURN [id number] Assoc. Page 1 of [address] [place] [address] PROC: 04/05/2023 [facility] RECV: 04/06/2023 [address] [facility] RPTD: 04/07/2023 [place] [address] LOC: [facility] ACCT: [id number] SEX: M : 1940 AGE: 82 Y PATHOLOGY REPORT ATTN: NON-STAFF PHYSICIAN REQ: MICHELLE BARRY Copies To: MAYRA LANDON Clinical Information: AGE-RELATED OSTEOPOROSIS WITH CURRENT PATHOLOGICAL [...] developed and its performance characteristics determined by [facility]. It has not been cleared or approved by the U.S. Food and Drug Administration. Pursuant to the requirements of CLIA, this laboratory has established and verified the test's accuracy and precision. Additional information about this type of test is available upon request. [id number] REJI FITZGERALD M.D., F.C.A.P. [facility]/ [facility] Printed on: 04/07/2023 [address] [place], [place] [address] Original print date: 04/07/2023 Normal [facility] Surgical Pathology Requeston 04-05-2023 MALLIKA SEE BELOW [facility] Comment on above: Order Comment: Age-r elated osteoporosis with current pathological fracture of vertebra, initial encounter ([facility]) [M80.08XA] Pre-op diagnosis: L1 Vertebral body Biopsy Result Comment: [place] [facility] ALMASTRAVIS HERCULES [id number]\X0D0A\Assoc. Page 1 of 1\X0D0A\[address] \X0D0A\[place] [address]\X0D0A\ PROC: 04/05/2023\X0D0A\[facility] RECV: 04/06/2023\X0D0A\[address] RPTD: 04/07/2023\X0D0A\[place] [address]\X0D0A\ LOC: [facility]\X0D0A\ ACCT: [id number] SEX: M\X0D0A\ : 1940 AGE: 82 Y\X0D0A\X0D0A\ [...] was developed and its performance characteristics determined\X0D0A\by [facility]. It has not been cleared or\X0D0A\approved by the U.S. Food and Drug Administration. Pursuant to the\X0D0A\requirements of CLIA, this laboratory has established and verified the\X0D0A\test's accuracy and precision. Additional information about this type\X0D0A\of test is available upon request.\X0D0A\X0D0A\01612\X0D0A\54560\X0D0A\75[address]\X0D0A\X0D0 A\X0D0A\ \X0D0A\ REJI FITZGERALD M.D., F.C.A.P.\X0D0A\X0D0A\X0D0A\[facility]/ [facility] Printed on: 04/07/2023\X0D0A\[address]\X0D0A\[place], [place] [address]\X0D0A\Original print date: 04/07/2023 Performed By: #### 1 [id number] #### [facility] See Report Ambulatory Visit Summaryon 0 03-20-2023 Ambulatory Visit Summary TRAVIS COBURN :1940 Visit Date:03/20/2023 Ambulatory Visit Instructions Your Diagnosis Nocturia Urinary urgency BPH with urinary obstruction History of kidney stones Impotence Tests Performed Urnls Dip Stick Auto w/o Microscopy POC [id number] Your Care Team Attending Physician - MIRIAN [...] [facility] Patient Educationon 03-20-20 23 Patient Education Urology [...] Follow these instructions at home: ? Take ggxf-sjp-zkgietn and prescription medicines only as told by [...] the medicine (more content not included)... 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 Reports he has [...] 6 months [facility] [address], [facility] [place] [address]- [phone] Additional Instructions: Patient Education Benign Prostatic Hyperplasia [...] data Procedure/ (more content not included)... Normal [facility] Comment on above: Result Comment: Elec tronically Signed By: Nguyễn VELA MD\.br\Date and Time Signed: 03/20/23 15:41 EDT\.br\Electronically Co-Signed By: Jackeline Graff\.br\Date and Time Co-Signed: 03/20/23 15:38 EDT INSULINon 10-26-2022 Insulin 34.8 uIU/mL Critically high 2.6-24.9 [facility] Comment on above: Performed By: #### C BC #### [facility] [address] [place] [address] Dr. Layla Barrera CBC AUTO DIFFon 10-25-2022 BASO # 0.0 103/ul Normal 0.0-0.1 [facility] Comment on above: Performed By: #### C BC #### [facility] [address] [place] [address] Dr. Layla Barrera Basophils/100 WBC (Bld) 0.6 % Normal 0.2-2.0 [facility] Comment on above: Performed By: #### C BC #### [facility] [address] [place] [address] Dr. Layla Barrera EO # 0.3 103/ul Normal 0.0-0.7 [facility] Comment on above: Performed By: #### C BC #### [facility] [address] [place] [address] Dr. Layla Barrera Eosinophils/100 WBC (Bld) 4.2 % Normal 0.9-7.0 [facility] Comment on above: Performed By: #### C BC #### [facility] [address] [place] [address] Dr. Layla Barrera Erythrocyte distribution width (RBC) [Ratio] 13.6 % Normal 11.0-15.0 [facility] Comment on above: Performed By: #### C BC #### [facility] [address] [place] [address] Dr. Layla Barrera Hematocrit (Bld) [Volume fraction] 42.6 % Normal 42.0-54.0 [facility] Comment on above: Performed By: #### C BC #### [facility] [address] [place] [address] Dr. Layla Barrera Hemoglobin (Bld) [Mass/Vol] 14.7 g/dL Normal 14.0-18.0 [facility] Comment on above: Performed By: #### C BC #### [facility] [address] [place] [address] Dr. Layla Barrera IG # 0.02 10e3/ul Normal 0.00-0.03 [facility] Comment on above: Performed By: #### C BC #### [facility] [address] [place] [address] Dr. Layla Barrera IG % 0.3 % Normal 0.0-0.5 [facility] Comment on above: Performed By: #### C BC #### [facility] [address] [place] [address] Dr. Layla Barrera LYMPH # 2.1 103/ul Normal 1.2-3.8 [facility] Comment on above: Performed By: #### C BC #### [facility] [address] [place] [address] Dr. Layla Barrera Lymphocytes/100 WBC (Bld) 30.1 % Normal 20.5-60.0 [facility] Comment on above: Performed By: #### C BC #### [facility] [address] [place] [address] Dr. Layla Barrera MANUAL DIFF REQ NO Normal [facility] Comment on above: Performed By: #### C BC #### [facility] [address] [place] [address] Dr. Layla Barrera MCH (RBC) [Entitic mass] 32.1 pg Normal 25.9-34.0 [facility] Comment on above: Performed By: #### C BC #### [facility] [address] [place] [address] Dr. Layla Barrera MCHC (RBC) [Mass/Vol] 34.5 g/dL Normal 29.9-35.2 [facility] Comment on above: Performed By: #### C BC #### [facility] [address] [place] [address] Dr. Layla Barrera MCV (RBC) [Entitic vol] 93.0 fL Normal 80.0-94.0 [facility] Comment on above: Performed By: #### C BC #### [facility] [address] [place] [address] Dr. Layla Barrera MONO # 0.6 103/ul Normal 0.3-0.8 [facility] Comment on above: Performed By: #### C BC #### [facility] [address] [place] [address] Dr. Layla Barrera Monocytes/100 WBC (Bld) 8.5 % Normal 1.7-12.0 [facility] Comment on above: Performed By: #### C BC #### [facility] [address] [place] [address] Dr. Layla Barrera NEUT # 3.9 103/ul Normal 1.4-6.5 [facility] Comment on above: Performed By: #### C BC #### [facility] [address] [place] [address] Dr. Layla Barrera Neutrophils/100 WBC (Bld) 56.3 % Normal 43.0-75.0 [facility] Comment on above: Performed By: #### C BC #### [facility] [address] [place] [address] Dr. Layla Barrera Platelet mean volume (Bld) [Entitic vol] 10.6 fL Normal 9.5-13.5 [facility] Comment on above: Performed By: #### C BC #### [facility] [address] [place] [address] Dr. Layla Barrera PLT 168 103/ul Normal 150-450 [facility] Comment on above: Performed By: #### C BC #### [facility] [address] [place] [address] Dr. Layla Barrera RBC 4.58 106/ul Critically low 4.70-6.10 [facility] Comment on above: Performed By: #### C BC #### [facility] [address] [place] [address] Dr. Layla Barrera WBC 7.0 103/ul Normal 4.0-11.0 [facility] Comment on above: Performed By: #### C BC #### [facility] [address] [place] [address] Dr. Layla Barrera FREE THYROXINE INDEX T7on FTI 2.21 Normal 1.30-4.50 [facility] Comment on above: Performed By: #### C BC #### [facility] [address] [place] [address] Dr. Layla Barrera T3U 33.0 % Normal 33.0-40.0 [facility] Comment on above: Performed By: #### C BC #### [facility] [address] [place] [address] Dr. Layla Barrera T4 [Mass/Vol] 6.70 ug/dL Normal 4.50-12.10 [facility] Comment on above: Performed By: #### C BC #### [facility] [address] [place] [address] Dr. Layla Barrera GLYCOHEMOGLOBIN A1Con 2022 ADA RECOMMENDATION SEE BELOW Normal [facility] Comment on above: Result Comment: ADA RECOMMENDED LIMIT 4.0 - 6.0 ADA THERAPEUTIC TARGET < 7.0 ACTION SUGGESTED > 7.0 Performed By: #### G IPANEL #### [facility] [address] [place] [address] Dr. Layla Barrera Glucose [Mass/Vol] 146 mg/dL Normal [facility] Comment on above: Performed By: #### G IPANEL #### [facility] [address] [place] [address] Dr. Layla Barrera HbA1c (Bld) [Mass fraction] 6.7 % Critically high 4.5-6.2 [facility] Comment on above: Performed By: #### G IPANEL #### [facility] [address] [place] [address] Dr. Layla Barrera IRONon 10-25-2022 Iron [Mass/Vol] 82.0 ug/dL Normal 65.0-175.0 [facility] Comment on above: Performed By: #### I SONYA MCGOVERN VITB12 #### [facility] [address] [address] [address] Layla Barrera LIPID PROFILEon 10-25-2022 CHOL-HDL RATIO NORM SEE BELOW Normal [facility] Comment on above: Result Comment: 3.3 - 4.4 LOW RISK 4.4 - 7.1 AVERAGE RISK 7.1 - 11.0 MODERATE RISK >11.0 HIGH RISK Performed By: #### C BC #### [facility] [address] [address] [address] Layla Barrera Cholesterol [Mass/Vol] 201 mg/dL Critically high <=200 [facility] Comment on above: Performed By: #### C BC #### [facility] [address] [place] [address] Dr. Layla Barrera Cholesterol in HDL [Mass/Vol] 46 mg/dL Normal 40-60 [facility] Comment on above: Performed By: #### C BC #### [facility] [address] [place] [address] Dr. Layla Barrera Cholesterol in LDL [Mass/Vol] 133.4 mg/dL Normal [facility] Comment on above: Performed By: #### C BC #### [facility] [address] [address] [address] Layla Barrera Cholesterol.total/Chol esterol in HDL [Mass ratio] 4.4 {ratio} Normal [facility] Comment on above: Performed By: #### C BC #### [facility] [address] [place] [address] Dr. Layla Barrera HDL NORMAL > or = 60 mg/dl - LOW CARDIOVASCULAR RISK <40 mg/dl - HIGH CARDIOVASCULAR RISK Normal [facility] Comment on above: Performed By: #### C BC #### [facility] [address] [address] [address] Layla Barrera LDL CALC NORMAL SEE BELOW Normal [facility] Comment on above: Result Comment: <100 mg/dl OPTIMAL 100 - 129 mg/dl NEAR OR ABOVE OPTIMAL 130 - 159 mg/dl BORDERLINE HIGH 160 - 189 mg/dl HIGH >190 mg/dl VERY HIGH Performed By: #### C BC #### [facility] [address] [place] [address] Dr. Layla Barrera Triglyceride [Mass/Vol] 108 mg/dL Normal <=150 [facility] Comment on above: Performed By: #### C BC #### [facility] [address] [place] [address] Dr. Layla Barrera VLDL CALC 21.6 mg/dL Normal [facility] Comment on above: Performed By: #### C BC #### [facility] [address] [place] [address] Dr. Layla Barrera PROF 14(COMP METB)on 023 Albumin [Mass/Vol] 3.6 g/dL Normal 3.4-5.0 [facility] Comment on above: Performed By: #### C BC #### [facility] [address] [place] [address] Dr. Layla Barrera Albumin/Globulin [Mass ratio] 1.0 {ratio} Normal [facility] Comment on above: Performed By: #### C BC #### [facility] [address] [place] [address] Dr. Layla Barrera ALP [Catalytic activity/Vol] 101 U/L Normal 46-116 [facility] Comment on above: Performed By: #### C BC #### [facility] [address] [place] [address] Dr. Layla Barrera ALT [Catalytic activity/Vol] 42 U/L Normal 16-63 [facility] Comment on above: Performed By: #### C BC #### [facility] [address] [place] [address] Dr. Layla Barrera Anion gap [Moles/Vol] 12.8 mmol/L Normal [facility] Comment on above: Performed By: #### C BC #### [facility] [address] [place] [address] Dr. Layla Barrera AST [Catalytic activity/Vol] 26 U/L Normal 15-37 [facility] Comment on above: Performed By: #### C BC #### [facility] [address] [place] [address] Dr. Layla Barrera Bilirubin [Mass/Vol] 0.7 mg/dL Normal 0.2-1.0 [facility] Comment on above: Performed By: #### C BC #### [facility] [address] [place] [address] Dr. Layla Barrera Calcium [Mass/Vol] 8.9 mg/dL Normal 8.5-10.1 [facility] Comment on above: Performed By: #### C BC #### [facility] [address] [place] [address] Dr. Layla Barrera Chloride [Moles/Vol] 103 mmol/L Normal 98-107 [facility] Comment on above: Performed By: #### C BC #### [facility] [address] [place] [address] Dr. Layla Barrera CO2 [Moles/Vol] 26.3 mmol/L Normal 21.0-32.0 [facility] Comment on above: Performed By: #### C BC #### [facility] [address] [place] [address] Dr. Layla Barrera Creatinine [Mass/Vol] 1.24 mg/dL Normal 0.70-1.30 [facility] Comment on above: Performed By: #### C BC #### [facility] [address] [place] [address] Dr. Layla Barrera EGFR-AF BRAZILIAN >60 Normal >=60 [facility] Comment on above: Performed By: #### C BC #### [facility] [address] [place] [address] Dr. Layla Barrera EGFR-NON AF BRAZILIAN 56 mL/min/1.73m2 Critically low >=60 [facility] Comment on above: Performed By: #### C BC #### [facility] [address] [place] [address] Dr. Layla Barrera Globulin (S) [Mass/Vol] 3.5 g/dL Normal [facility] Comment on above: Performed By: #### C BC #### [facility] [address] [place] [address] Dr. Layla Barrera Glucose [Mass/Vol] 147 mg/dL Critically high 74-106 T [facility] Comment on above: Performed By: #### C BC #### [facility] [address] [address] [address] Layla Barrera Potassium [Moles/Vol] 4.1 mmol/L Normal 3.5-5.1 [facility] Comment on above: Performed By: #### C BC #### [facility] [address] [address] [address] Layla Barrera Protein [Mass/Vol] 7.1 g/dL Normal 6.4-8.2 [facility] Comment on above: Performed By: #### C BC #### [facility] [address] [address] [address] Layla Barrera Sodium [Moles/Vol] 138 mmol/L Normal 136-145 [facility] Comment on above: Performed By: #### C BC #### [facility] [address] [place] [address] Dr. Layla Barrera Urea nitrogen [Mass/Vol] 18.0 mg/dL Normal 7.0-18.0 [facility] Comment on above: Performed By: #### C BC #### [facility] [address] [address] [address] Layla Barrera Urea nitrogen/Creatinine [Mass ratio] 14.5 mg/mg Normal [facility] Comment on above: Performed By: #### C BC #### [facility] [address] [place] [address] Dr. Layla Barrera TSHon 10-25-2022 TSH 2.495 uIU/mL Normal 0.358-3.740 [facility] Comment on above: Performed By: #### C BC #### [facility] [address] [address] [address] Layla Barrera URIC ACID SERUMon 10-25-2022 Urate [Mass/Vol] 8.1 mg/dL Critically high 3.5-7.2 [facility] Comment on above: Performed By: #### C BC #### [facility] [address] [address] [address] Layla Barrera VITAMIN B12on 10-25-2022 Cobalamin (Vitamin B12) [Mass/Vol] 689.0 pg/mL Normal 193.0-986.0 [facility] Comment on above: Performed By: #### I SHANIQUA VITKENNY, VITB12 #### [facility] [address] [place] [address] Dr. Layla Barrera VITAMIN D 25 OHon 10-25-2022 VIT D 25-OH 17.0 ng/mL Normal [facility] Comment on above: Performed By: #### I SHANIQUA VITAD, VITB12 #### [facility] [address] [place] [address] Dr. Layla Barrera VIT D RANGES SEE BELOW Normal [facility] Comment on above: Result Comment: <20 ng/mL Vit D deficient 20 - <30 ng/mL Vit D insufficient 30 - 100 ng/mL Vit D sufficient >100 ng/mL Potential Toxicity Performed By: #### I SHANIQUA VITAD, VITB12 #### [facility] [address] [place] [address] Dr. Layla Barrera PSA, FREE AND TOTAL RATIOon 06-22-2022 % Free PSA 49.9 % Normal [facility] [...] men. Performed By: #### P SAFREE #### [facility] [address] [place] [address] Dr. Layla Barrera Prostate specific Ag [Mass/Vol] 6.8 ng/mL Critically high 0.0-4.0 [facility] Comment on above: Result Comment: Nikki CARTER methodology. . According to the [employer] [employer], Serum PSA should decrease and [...] disease. Performed By: #### P SAFREE #### [facility] [address] [place] [address] Dr. Layla Barrera PSA, Free 3.39 ng/mL Normal N/A [facility] Comment on above: Result Comment: Nikki bassett ECLIA methodology. Performed By: #### P SAFREE #### [facility] [address] [place] [address] Dr. Layla Barrera H PYLORI ANTIBODY IGGon H. PYLORI IGG ABS 0.96 Index Value Critically high 0.00-0. 79 [facility] Comment on above: Result Comment: Nega tive <0.80 Equivocal 0.80 - 0.89 Positive >0.89 Performed By: #### C BC #### [facility] [address] [place] [address] Dr. Layla Barrera INSULINon 03-12-2022 Insulin 38.7 uIU/mL Critically high 2.6-24.9 [facility] Comment on above: Performed By: #### G IPANEL #### [facility] [address] [place] [address] Dr. Layla Barrera AMYLASEon 03-11-2022 Amylase [Catalytic activity/Vol] 54 U/L Normal 25-115 [facility] Comment on above: Performed By: #### G IPANEL #### [facility] [address] [place] [address] Dr. Layla Barrera CBC AUTO DIFFon 03-11-2022 BASO # 0.1 103/ul Normal 0.0-0.1 [facility] Comment on above: Performed By: #### C BC #### [facility] [address] [place] [address] Dr. Layla Barrera Basophils/100 WBC (Bld) 0.7 % Normal 0.2-2.0 [facility] Comment on above: Performed By: #### C BC #### [facility] [facility] [address] [place] [address] Dr. Layla Barrera EO # 0.3 103/ul Normal 0.0-0.7 [facility] Comment on above: Performed By: #### C BC #### [facility] [address] [place] [address] Dr. Layla Barrera Eosinophils/100 WBC (Bld) 3.6 % Normal 0.9-7.0 [facility] Comment on above: Performed By: #### C BC #### [facility] [address] [place] [address] Dr. Layla Barrera Erythrocyte distribution width (RBC) [Ratio] 13.2 % Normal 11.0-15.0 [facility] Comment on above: Performed By: #### C BC #### [facility] [address] [place] [address] Dr. Layla Barrera Hematocrit (Bld) [Volume fraction] 43.0 % Normal 42.0-54.0 [facility] Comment on above: Performed By: #### C BC #### [facility] [address] [place] [address] Dr. Layla Barrera Hemoglobin (Bld) [Mass/Vol] 14.6 g/dL Normal 14.0-18.0 [facility] Comment on above: Performed By: #### C BC #### [facility] [address] [place] [address] Dr. Layla Barrera IG # 0.03 10e3/ul Normal 0.00-0.03 [facility] Comment on above: Performed By: #### C BC #### [facility] [address] [place] [address] Dr. Layla Barrera IG % 0.4 % Normal 0.0-0.5 [facility] Comment on above: Performed By: #### C BC #### [facility] [address] [place] [address] Dr. Layla Barrera LYMPH # 3.0 103/ul Normal 1.2-3.8 [facility] Comment on above: Performed By: #### C BC #### [facility] [address] [place] [address] Dr. Layla Barrera Lymphocytes/100 WBC (Bld) 41.2 % Normal 20.5-60.0 [facility] Comment on above: Performed By: #### C BC #### [facility] [address] [place] [address] Dr. Layla Barrera MANUAL DIFF REQ NO Normal [facility] Comment on above: Performed By: #### C BC #### [facility] [address] [place] [address] Dr. Layla Barrera MCH (RBC) [Entitic mass] 31.8 pg Normal 25.9-34.0 [facility] Comment on above: Performed By: #### C BC #### [facility] [address] [place] [address] Dr. Layla Barrera MCHC (RBC) [Mass/Vol] 34.0 g/dL Normal 29.9-35.2 [facility] Comment on above: Performed By: #### C BC #### [facility] [address] [place] [address] Dr. Layla Barrera MCV (RBC) [Entitic vol] 93.7 fL Normal 80.0-94.0 [facility] Comment on above: Performed By: #### C BC #### [facility] [address] [place] [address] Dr. Layla Barrera MONO # 0.6 103/ul Normal 0.3-0.8 [facility] Comment on above: Performed By: #### C BC #### [facility] [address] [place] [address] Dr. Layla Barrera Monocytes/100 WBC (Bld) 7.9 % Normal 1.7-12.0 [facility] Comment on above: Performed By: #### C BC #### [facility] [address] [place] [address] Dr. Layla Barrera NEUT # 3.3 103/ul Normal 1.4-6.5 [facility] Comment on above: Performed By: #### C BC #### [facility] [address] [address] [address] Layla Barrera Neutrophils/100 WBC (Bld) 46.2 % Normal 43.0-75.0 [facility] Comment on above: Performed By: #### C BC #### [facility] [address] [address] [address] Layla Barrera Platelet mean volume (Bld) [Entitic vol] 11.1 fL Normal 9.5-13.5 [facility] Comment on above: Performed By: #### C BC #### [facility] [address] [address] [address] Layla Barrera PLT 171 103/ul Normal 150-450 [facility] Comment on above: Performed By: #### C BC #### [facility] [address] [place] [address] Dr. Layla Barrera RBC 4.59 106/ul Critically low 4.70-6.10 [facility] Comment on above: Performed By: #### C BC #### [facility] [address] [place] [address] Dr. Layla Barrera WBC 7.2 103/ul Normal 4.0-11.0 [facility] Comment on above: Performed By: #### C BC #### [facility] [address] [place] [address] ABD/PELV W CONon [...] CJ MELTON Date: 2022-03-11 10:08 Normal [facility] GI PANEL (PCR)on 03-11-2022 Adenovirus F 40/41 Not detected Normal NOT DETECTED [facility] Comment on above: Performed By: #### G IPANEL #### [facility] [address] [place] [address] Dr. Layla Barrera Astrovirus Not detected Normal NOT DETECTED [facility] Comment on above: Performed By: #### G IPANEL #### [facility] [address] [place] [address] Dr. Layla Barrera C. Diff toxin A/B Not detected Normal NOT DETECTED [facility] Comment on above: Performed By: #### G IPANEL #### [facility] [address] [place] [address] Dr. Layla Barrera Campylobacter Not detected Normal NOT DETECTED [facility] Comment on above: Performed By: #### G IPANEL #### [facility] [address] [place] [address] Dr. Layla Barrera Cryptosporidium Not detected Normal NOT DETECTED [facility] Comment on above: Performed By: #### G IPANEL #### [facility] [address] [place] [address] Dr. Layla Barrera Cyclos. Cayetanensis Not detected Normal NOT DETECTED [facility] Comment on above: Performed By: #### G IPANEL #### [facility] [address] [place] [address] Dr. Layla Barrera E. Coli O157 Not Applicable Normal Not Applicable [facility] Comment on above: Performed By: #### G IPANEL #### [facility] [address] [place] [address] Dr. Layla Barrera E. histolytica Not detected Normal NOT DETECTED [facility] Comment on above: Performed By: #### G IPANEL #### [facility] [address] [address] [address] Layla Barrera EAEC Not detected Normal NOT DETECTED [facility] Comment on above: Performed By: #### G IPANEL #### [facility] [address] [address] [address] Layla Barrera EIEC Not detected Normal NOT DETECTED [facility] Comment on above: Performed By: #### G IPANEL #### [facility] [address] [address] [address] Layla Barrera EPEC Detected Abnormal NOT DETECTED [facility] Comment on above: Performed By: #### G IPANEL #### [facility] [address] [place] [address] Dr. Layla Barrera ETEC Not detected Normal NOT DETECTED [facility] Comment on above: Performed By: #### G IPANEL #### [facility] [address] [place] [address] Dr. Layla Hennessy Lamblia Not detected Normal NOT DETECTED [facility] Comment on above: Performed By: #### G IPANEL #### [facility] [address] [place] [address] Dr. Layla STEINBERG CONTROLS PASSED Normal [facility] Comment on above: Performed By: #### G IPANEL #### [facility] [address] [place] [address] Dr. Layla ALEXIS [facility] HEADER GI PANEL BACTERIA Normal T [facility] Comment on above: Performed By: #### G IPANEL #### [facility] [address] [place] [address] Dr. Layla SARAVIA ECOLI GI PANEL DIARRHEAGENIC E.COLI / SHIGELLA Normal [facility] Comment on above: Performed By: #### G IPANEL #### [facility] [address] [place] [address] Dr. Layla SARAVIA INFO SEE BELOW Normal [facility] Comment on above: Result Comment: EAEC - Enteroaggregative E. Coli EPEC- Enteropathogenic E. Coli ETEC- Enterotoxigenic E. Coli lt/st STEC- Shigella-like toxin-producing E. Coli stx1/stx2 EIEC- Shigella/Enteroinvasive E. Coli Performed By: #### G IPANEL #### [facility] [address] [place] [address] Dr. aLyla SARAVIA PARASITES GI PANEL PARASITES Normal [facility] Comment on above: Performed By: #### G IPANEL #### [facility] [address] [place] [address] Dr. Layla SARAVIA VIRUS GI PANEL VIRUSES Normal [facility] Comment on above: Performed By: #### G IPANEL #### [facility] [address] [place] [address] Dr. Layla Barrera Norovirus GI/GII Not detected Normal NOT DETECTED [facility] Comment on above: Performed By: #### G IPANEL #### [facility] [address] [place] [address] Dr. Layla Barrera P. Shigelloides Not detected Normal NOT DETECTED [facility] Comment on above: Performed By: #### G IPANEL #### [facility] [address] [place] [address] Dr. Layla Barrera Rotavirus A Not detected Normal NOT DETECTED [facility] Comment on above: Performed By: #### G IPANEL #### [facility] [address] [place] [address] Dr. Layla Barrera Salmonella Not detected Normal NOT DETECTED [facility] Comment on above: Performed By: #### G IPANEL #### [facility] [address] [place] [address] Dr. Layla Barrera Sapovirus Not detected Normal NOT DETECTED [facility] Comment on above: Performed By: #### G IPANEL #### [facility] [address] [place] [address] Dr. Layla Barrera STEC Not detected Normal NOT DETECTED [facility] Comment on above: Performed By: #### G IPANEL #### [facility] [address] [place] [address] Dr. Layla Barrera Vibrio Not detected Normal NOT DETECTED [facility] Comment on above: Performed By: #### G IPANEL #### [facility] [address] [place] [address] Dr. Layla Barrera Vibrio Cholera Not detected Normal NOT DETECTED [facility] Comment on above: Performed By: #### G IPANEL #### [facility] [address] [place] [address] Dr. Layla Barrera Y. Enterocolitica Not detected Normal NOT DETECTED [facility] Comment on above: Performed By: #### G IPANEL #### [facility] [address] [place] [address] Dr. Layla Barrera GLYCOHEMOGLOBIN A1Con 2021 ADA RECOMMENDATION SEE BELOW Normal [facility] Comment on above: Result Comment: ADA RECOMMENDED LIMIT 4.0 - 6.0 ADA THERAPEUTIC TARGET < 7.0 ACTION SUGGESTED > 7.0 Performed By: #### G IPANEL #### [facility] [address] [place] [address] Dr. Layla Barrera Glucose [Mass/Vol] 134 mg/dL Normal [facility] Comment on above: Performed By: #### G IPANEL #### [facility] [address] [place] [address] Dr. Layla Barrera HbA1c (Bld) [Mass fraction] 6.3 % Critically high 4.5-6.2 [facility] Comment on above: Performed By: #### G IPANEL #### [facility] [address] [place] [address] Dr. Layla Barrera LIPASEon 03-11-2022 Lipase [Catalytic activity/Vol] 82.0 U/L Normal 73.0-393.0 [facility] Comment on above: Performed By: #### G IPANEL #### [facility] [address] [place] [address] Dr. Layla Barrera LIPID PROFILEon 03-11-2022 CHOL-HDL RATIO NORM SEE BELOW Normal [facility] Comment on above: Result Comment: 3.3 - 4.4 LOW RISK 4.4 - 7.1 AVERAGE RISK 7.1 - 11.0 MODERATE RISK >11.0 HIGH RISK Performed By: #### G IPANEL #### [facility] [address] [address] [address] Layla Barrera Cholesterol [Mass/Vol] 216 mg/dL Critically high <=200 [facility] Comment on above: Performed By: #### G IPANEL #### [facility] [address] [place], [place] [address] Dr. Layla Barrera Cholesterol in HDL [Mass/Vol] 47 mg/dL Normal 40-60 [facility] Comment on above: Performed By: #### G IPANEL #### [facility] [address] [address] [address] Layla Barrera Cholesterol in LDL [Mass/Vol] 134.4 mg/dL Normal [facility] Comment on above: Performed By: #### G IPANEL #### [facility] [address] [address] [address] Layla Barrera Cholesterol.total/Chol esterol in HDL [Mass ratio] 4.6 {ratio} Normal [facility] Comment on above: Performed By: #### G IPANEL #### [facility] [address] [address] [address] Layla Barrera HDL NORMAL > or = 60 mg/dl - LOW CARDIOVASCULAR RISK <40 mg/dl - HIGH CARDIOVASCULAR RISK Normal [facility] Comment on above: Performed By: #### G IPANEL #### [facility] [address] [address] [address] Layla Barrera LDL CALC NORMAL SEE BELOW Normal [facility] Comment on above: Result Comment: <100 mg/dl OPTIMAL 100 - 129 mg/dl NEAR OR ABOVE OPTIMAL 130 - 159 mg/dl BORDERLINE HIGH 160 - 189 mg/dl HIGH >190 mg/dl VERY HIGH Performed By: #### G IPANEL #### [facility] [address] [address] [address] Layla Barrera Triglyceride [Mass/Vol] 173 mg/dL Critically high <=150 [facility] Comment on above: Performed By: #### G IPANEL #### [facility] [address] [address] [address] Layla Barrera VLDL CALC 34.6 mg/dL Normal [facility] Comment on above: Performed By: #### G IPANEL #### [facility] [address] [address] [address] Layla Barrera OCC BLD IMMUNO SCREENon OCCULT BLOOD Negative Normal NEGATIVE [facility] Comment on above: Performed By: #### C BC #### [facility] [address] [place] [address] Dr. Layla Barrera PROF 14(COMP METB)on 022 Albumin [Mass/Vol] 3.7 g/dL Normal 3.4-5.0 [facility] Comment on above: Performed By: #### C BC #### [facility] [address] [place] [address] Dr. Layla Barrera Albumin/Globulin [Mass ratio] 1.1 {ratio} Normal [facility] Comment on above: Performed By: #### C BC #### [facility] [address] [place] [address] Dr. Layla Barrera ALP [Catalytic activity/Vol] 90 U/L Normal 46-116 [facility] Comment on above: Performed By: #### C BC #### [facility] [address] [place] [address] Dr. Layla Barrera ALT [Catalytic activity/Vol] 66 U/L Critically high 16-63 [facility] Comment on above: Performed By: #### C BC #### [facility] [address] [place] [address] Dr. Layla Barrera Anion gap [Moles/Vol] 12.8 mmol/L Normal [facility] Comment on above: Performed By: #### C BC #### [facility] [address] [place] [address] Dr. Layla Barrera AST [Catalytic activity/Vol] 32 U/L Normal 15-37 [facility] Comment on above: Performed By: #### C BC #### [facility] [address] [place] [address] Dr. Layla Barrera Bilirubin [Mass/Vol] 0.7 mg/dL Normal 0.2-1.0 [facility] Comment on above: Performed By: #### C BC #### [facility] [address] [place] [address] Dr. Layla Barrera Calcium [Mass/Vol] 8.9 mg/dL Normal 8.5-10.1 [facility] Comment on above: Performed By: #### C BC #### [facility] [address] [address] [address] Layla Barrera Chloride [Moles/Vol] 100 mmol/L Normal 98-107 [facility] Comment on above: Performed By: #### C BC #### [facility] [address] [place] [address] Dr. Layla Barrera CO2 [Moles/Vol] 27.9 mmol/L Normal 21.0-32.0 [facility] Comment on above: Performed By: #### C BC #### [facility] [address] [place] [address] Dr. Layla Barrera Creatinine [Mass/Vol] 1.30 mg/dL Normal 0.70-1.30 [facility] Comment on above: Performed By: #### C BC #### [facility] [address] [place] [address] Dr. Layla Barrera EGFR-AF BRAZILIAN >60 Normal >=60 [facility] Comment on above: Performed By: #### C BC #### [facility] [address] [place] [address] Dr. Layla Barrera EGFR-NON AF BRAZILIAN 53 mL/min/1.73m2 Critically low >=60 [facility] Comment on above: Performed By: #### C BC #### [facility] [address] [place] [address] Dr. Layla Barrera Globulin (S) [Mass/Vol] 3.3 g/dL Normal [facility] Comment on above: Performed By: #### C BC #### [facility] [address] [place] [address] Dr. Layla Barrera Glucose [Mass/Vol] 137 mg/dL Critically high 74-106 T [facility] Comment on above: Performed By: #### C BC #### [facility] [address] [place], [place] [address] Dr. Layla Barrera Potassium [Moles/Vol] 3.7 mmol/L Normal 3.5-5.1 [facility] Comment on above: Performed By: #### C BC #### [facility] [address] [place] [address] Dr. Layla Barrera Protein [Mass/Vol] 7.0 g/dL Normal 6.4-8.2 [facility] Comment on above: Performed By: #### C BC #### [facility] [address] [place] [address] Dr. Layla Barrera Sodium [Moles/Vol] 137 mmol/L Normal 136-145 [facility] Comment on above: Performed By: #### C BC #### [facility] [address] [place] [address] Dr. Layla Barrera Urea nitrogen [Mass/Vol] 20.0 mg/dL Critically high 7.0-18.0 [facility] Comment on above: Performed By: #### C BC #### [facility] [address] [place] [address] Dr. Layla Barrera Urea nitrogen/Creatinine [Mass ratio] 15.4 mg/mg Normal [facility] Comment on above: Performed By: #### C BC #### [facility] [address] [place] [address] Dr. Layla Barrera URIC ACID SERUMon 03-11-2022 Urate [Mass/Vol] 8.3 mg/dL Critically high 3.5-7.2 [facility] Comment on above: Performed By: #### G IPANEL #### [facility] [address] [place] [address] Dr. Layla Barrera Office Visit (Cardiology)on 12-28-2021 [...] 09:51AM Hea (more content not included)... Normal [email or web address] Tobacco Screening.on 022 Fall risk assessment a) No falls within the last year -[facility] beto 250 DO Work Phone: Tobacco use status CPHS b) No -[facility] beto 250 DO Work Phone: [facility] CARDIAC STRESS/REST INJE CTIONon 12-21-2021 [facility] CARDIAC STRESS/REST INJECTION Patient Name: TRAVIS COBURN STUDY: MYOCARDIAL PERFUSION STRESS TEST WITH LEXISCAN Performing facility: NO Provider: Azalea Deras MD, FACC PCP: Dr. Navarrete Supervising provider: Shaquille Ramos DO, [facility] INDICATION: CAD; Dyspnea HISTORY: Gender: M; Age: 81 y/o ; Height: 0 cm; Weight: 335.9624863 kg. CAD; High Cholesterol; HTN; SOB; Fatigue; Quit smoking 30 years ago. Cardiac catheterization on 2005. COMPARISON: Previous nuclear testing completed at [facility] [place]. ACCESSION NUMBER(S): [id number]; [id number]; [id number] ORDERING CLINICIAN: JOHNNIE DERAS TECHNIQUE: TWO DAY [...] Electronically signed by: ABDOUL TIMMONS MD Normal [facility] No Panel Informationon 12-21 Normal -[facility] 250 DO Work Phone: Office Visit (Cardiology)on [...] DAILY. Allergies (more content not included)... Normal [email or web address] Tobacco Screening.on 022 Adult depression screening assessment No [facility] [employer] 250 DO Work Phone: Fall risk assessment a) No falls within the last year [facility] [employer] 250 DO Work Phone: Tobacco use status CPHS b) No [facility] [employer] 250 DO Work Phone: C REACTIVE PROTEINon 022 CRP [Mass/Vol] 3.3 mg/L Normal 0.0-7.0 [facility] Comment on above: Performed By: #### 6 1405 #### [facility] [address] CBC AUTO DIFFon 11-25-2021 BASO # 0.0 103/ul Normal 0.0-0.1 [facility] Comment on above: Performed By: #### G IPANEL #### [facility] [address] [address] [address] Layla Barrera Basophils/100 WBC (Bld) 0.5 % Normal 0.2-2.0 [facility] Comment on above: Performed By: #### G IPANEL #### [facility] [address] [address] [address] Layla Barrera EO # 0.2 103/ul Normal 0.0-0.7 [facility] Comment on above: Performed By: #### G IPANEL #### [facility] [address] [address] [address] Layla Barrera Eosinophils/100 WBC (Bld) 3.0 % Normal 0.9-7.0 [facility] Comment on above: Performed By: #### G IPANEL #### [facility] [address] [place] [address] Dr. Layla Barrera Erythrocyte distribution width (RBC) [Ratio] 13.7 % Normal 11.0-15.0 [facility] Comment on above: Performed By: #### G IPANEL #### [facility] [address] [address] [address] Layla Barrera Hematocrit (Bld) [Volume fraction] 40.0 % Critically low 42.0-54.0 [facility] Comment on above: Performed By: #### G IPANEL #### [facility] [address] [address] [address] Layla Barrera Hemoglobin (Bld) [Mass/Vol] 13.4 g/dL Critically low 14.0-18.0 [facility] [facility] Comment on above: Performed By: #### G IPANEL #### [facility] [address] [address] [address] Layla Barrera IG # 0.02 10e3/ul Normal 0.00-0.03 [facility] Comment on above: Performed By: #### G IPANEL #### [facility] [address] [place] [address] Dr. Layla Barrera IG % 0.3 % Normal 0.0-0.5 [facility] Comment on above: Performed By: #### G IPANEL #### [facility] [address] [place] [address] Dr. Layla Barrera LYMPH # 2.4 103/ul Normal 1.2-3.8 [facility] Comment on above: Performed By: #### G IPANEL #### [facility] [address] [place] [address] Dr. Layla Barrera Lymphocytes/100 WBC (Bld) 39.6 % Normal 20.5-60.0 [facility] Comment on above: Performed By: #### G IPANEL #### [facility] [address] [place] [address] Dr. Layla Barrera MANUAL DIFF REQ NO Normal [facility] Comment on above: Performed By: #### G IPANEL #### [facility] [address] [place] [address] Dr. Layla Barrera MCH (RBC) [Entitic mass] 31.3 pg Normal 25.9-34.0 [facility] Comment on above: Performed By: #### G IPANEL #### [facility] [address] [place] [address] Dr. Layla Barrera MCHC (RBC) [Mass/Vol] 33.5 g/dL Normal 29.9-35.2 [facility] Comment on above: Performed By: #### G IPANEL #### [facility] [address] [place] [address] Dr. Layla Barrera MCV (RBC) [Entitic vol] 93.5 fL Normal 80.0-94.0 [facility] Comment on above: Performed By: #### G IPANEL #### [facility] [address] [address] [address] Layla Barrera MONO # 0.6 103/ul Normal 0.3-0.8 [facility] Comment on above: Performed By: #### G IPANEL #### [facility] [address] [place] [address] Dr. Layla Barrera Monocytes/100 WBC (Bld) 9.3 % Normal 1.7-12.0 [facility] Comment on above: Performed By: #### G IPANEL #### [facility] [address] [place] [address] Dr. Layla Barrera NEUT # 2.8 103/ul Normal 1.4-6.5 [facility] Comment on above: Performed By: #### G IPANEL #### [facility] [address] [place] [address] Dr. Layla Barrera Neutrophils/100 WBC (Bld) 47.3 % Normal 43.0-75.0 [facility] Comment on above: Performed By: #### G IPANEL #### [facility] [address] [place] [address] Dr. Layla Barrera Platelet mean volume (Bld) [Entitic vol] 10.4 fL Normal 9.5-13.5 [facility] Comment on above: Performed By: #### G IPANEL #### [facility] [address] [place] [address] Dr. Layla Barrera PLT 184 103/ul Normal 150-450 [facility] Comment on above: Performed By: #### G IPANEL #### [facility] [address] [place] [address] Dr. Layla Barrera RBC 4.28 106/ul Critically low 4.70-6.10 [facility] Comment on above: Performed By: #### G IPANEL #### [facility] [address] [place] [address] Dr. Layla Barrera WBC 5.9 103/ul Normal 4.0-11.0 [facility] Comment on above: Performed By: #### G IPANEL #### [facility] [address] [place] [address] Dr. Layla Barrera CBC W/DIFFon 11-25-2021 ABS IMM GRANS 0.0 10*3/uL Normal 0.0-0.2 [facility] Comment on above: Performed By: #### 5 6505, [id number] #### [facility] [address] [facility] [place] [address], [facility] ABS NEUTROPHILS 3.6 10*3/uL Normal 1.6-7.6 [facility] Comment on above: Performed By: #### 5 6505, [id number] #### [facility] [address] [facility] [place] [address], [facility] Basophils (Bld) [#/Vol] 0.0 10*3/uL Normal 0.0-0.2 [facility] Comment on above: Performed By: #### 5 6505, 87629 #### [facility] [address] [facility] [place] [address], [facility] Basophils/100 WBC (Bld) 0.4 % Normal 0.0-1.0 [facility] Comment on above: Performed By: #### 5 6505, [id number] #### [facility] [address] [facility] [place] [address], [facility] Eosinophils (Bld) [#/Vol] 0.2 10*3/uL Normal 0.0-0.5 [facility] Comment on above: Performed By: #### 5 6505, [id number] #### [facility] [address] [facility] [place] [id number], [facility] Eosinophils/100 WBC (Bld) 2.2 % Normal 0.0-6.0 [facility] Comment on above: Performed By: #### 5 6505, 52847 #### [facility] [address] [facility] [place] [address], [facility] Erythrocyte distribution width (RBC) [Ratio] 13.6 % Normal 11.5-15.0 [facility] Comment on above: Performed By: #### 5 6505, 52760 #### [facility] [address] [place] [address], [facility] Hematocrit (Bld) [Volume fraction] 40.4 % Normal 39.0-50.0 [facility] Comment on above: Performed By: #### 5 6505, 72568 #### [facility] [address] [place] [id number], [facility] Hemoglobin (Bld) [Mass/Vol] 13.7 g/dL Normal 13.0-17.0 [facility] Comment on above: Performed By: #### 5 6505, 60483 #### [facility] [address] [place] [address], [facility] IMMATURE GRANS 0.3 % Normal 0.0-1.0 [facility] Comment on above: Performed By: #### 5 6505, 88192 #### [facility] [address] [place] [address], [facility] Lymphocytes (Bld) [#/Vol] 2.4 10*3/uL Normal 1.2-4.0 [facility] Comment on above: Performed By: #### 5 6505, 63065 #### [facility] [address] [place] [address], [facility] Lymphocytes/100 WBC (Bld) 35.0 % Normal 20.0-45.0 [facility] Comment on above: Performed By: #### 5 6505, 08029 #### [facility] [address] [place] [address], [facility] MCH (RBC) [Entitic mass] 31.8 pg Normal 27.0-33.0 [facility] Comment on above: Performed By: #### 5 6505, 84065 #### [facility] [address] [place] [id number], [facility] MCHC (RBC) [Mass/Vol] 33.9 g/dL Normal 32.0-35.0 [facility] Comment on above: Performed By: #### 5 6505, 11480 #### [facility] [address] [place] [address], [facility] MCV (RBC) [Entitic vol] 93.7 fL Normal 82.0-98.0 [facility] Comment on above: Performed By: #### 5 6505, 76754 #### [facility] [address] [place] [address], [facility] Monocytes (Bld) [#/Vol] 0.6 10*3/uL Normal 0.1-1.0 [facility] Comment on above: Performed By: #### 5 6505, 19916 #### [facility] [address] [facility] [place] [address], [facility] MONOS 8.4 % Normal 5.0-12.0 [facility] Comment on above: Performed By: #### 5 6505, 85058 #### [facility] [address] [facility] [place] [address], [facility] Neutrophils/100 WBC (Bld) 53.7 % Normal 40.0-72.0 [facility] Comment on above: Performed By: #### 5 6505, 09064 #### [facility] [address] [facility] [place] [address], [facility] Nucleated RBC/100 WBC (Bld) [Ratio] 0 % Normal 0-0 [facility] Comment on above: Performed By: #### 5 6505, 40891 #### [facility] [address] [facility] [place] [address], [facility] PLAT CNT 198 10*3/uL Normal 150-400 [facility] Comment on above: Performed By: #### 5 6505, 74538 #### [facility] [address] [place] [id number], [facility] RBC (Bld) [#/Vol] 4.31 10*6/uL Normal 4.20-5.70 [facility] Comment on above: Performed By: #### 5 6506, 51443 #### [facility] [address] [place] [address], [facility] WBC (Bld) [#/Vol] 6.75 10*3/uL Normal 4.00-10.60 [facility] Comment on above: Performed By: #### 5 6506, 01802 #### [facility] [address] [place] [address], [facility] COMP METABOLIC PANELon 11-25 Albumin [Mass/Vol] 4.1 g/dL Normal 3.5-5.7 [facility] Comment on above: Performed By: #### 0 0121 #### [facility] [address] [place] [address], [facility] ALKALINE PHOSPH 87 IU/L Normal 34-104 [facility] Comment on above: Performed By: #### 0 0121 #### [facility] [address] [place] [address], [facility] ALT [Catalytic activity/Vol] 47 U/L Normal 7-52 [facility] Comment on above: Performed By: #### 0 0121 #### [facility] [address] [place] [address], [facility] AST [Catalytic activity/Vol] 29 U/L Normal 13-39 [facility] Comment on above: Performed By: #### 0 0121 #### [facility] [address] [place] [address], [facility] Bilirubin [Mass/Vol] 0.7 mg/dL Normal 0.3-1.0 [facility] Comment on above: Performed By: #### 0 0121 #### [facility] [address] [place] [address], [facility] Calcium [Mass/Vol] 9.7 mg/dL Normal 8.6-10.3 [facility] Comment on above: Performed By: #### 0 0121 #### [facility] [address] [place] [address], [place] Chloride [Moles/Vol] 103 mmol/L Normal 98-107 [facility] Comment on above: Performed By: #### 0 0121 #### [facility] [address] [place] [address], [place] CO2 [Moles/Vol] 30 mmol/L Normal 21-31 [facility] Comment on above: Performed By: #### 0 0121 #### [facility] [address] [place] [address], [place] Creatinine [Mass/Vol] 1.06 mg/dL Normal 0.70-1.30 [facility] Comment on above: Performed By: #### 0 0121 #### [facility] [address] [place] [address], [place] GFR/1.73 sq M.predicted among blacks MDRD (S/P/Bld) [Vol rate/Area] mL/min/{1.73_m2} Normal >60 [facility] Comment on above: Result Comment: Calc ulation may not be valid for patients over 70 years Performed By: #### 0 0121 #### [facility] [address] [place] [address], [place] GFR/1.73 sq M.predicted among non-blacks MDRD (S/P/Bld) [Vol rate/Area] mL/min/{1.73_m2} Normal >60 [facility] Comment on above: Result Comment: Calc ulation may not be valid for patients over 70 years Performed By: #### 0 0121 #### [facility] [address] [place] [address], [place] Glucose [Mass/Vol] 94 mg/dL Normal 70-100 [facility] Comment on above: Performed By: #### 0 0121 #### [facility] [address] [place] [address], [place] Potassium [Moles/Vol] 4.7 mmol/L Normal 3.5-5.1 [facility] Comment on above: Performed By: #### 0 0121 #### [facility] [address] [place] [address], [facility] Protein [Mass/Vol] 6.6 g/dL Normal 6.0-8.3 [facility] Comment on above: Performed By: #### 0 0121 #### [facility] [address] [place] [address], [facility] Sodium [Moles/Vol] 138 mmol/L Normal 136-145 [facility] Comment on above: Performed By: #### 0 0121 #### [facility] [address] [place] [address], [facility] Urea nitrogen [Mass/Vol] 17 mg/dL Normal 7-25 [facility] Comment on above: Performed By: #### 0 0121 #### [facility] [address] [place] [address], [facility] FREE THYROXINE INDEX T7on FTI 2.38 Normal 1.30-4.50 [facility] Comment on above: Performed By: #### T SH, CMP, T7, MG #### [facility] [address] [address] [address] Layla Barrera T3U 34.0 % Normal 33.0-40.0 [facility] Comment on above: Performed By: #### T SH, CMP, T7, MG #### [facility] [address] [address] [address] Layla Barrera T4 [Mass/Vol] 7.00 ug/dL Normal 4.50-12.10 [facility] Comment on above: Performed By: #### T SH, CMP, T7, MG #### [facility] [address] [address] [address] Layla Barrera MAGNESIUMon 11-25-2021 Magnesium [Mass/Vol] 1.7 mg/dL Critically low 1.8-2.4 [facility] Comment on above: Performed By: #### T SH, CMP, T7, MG #### [facility] [address] [place] [address] Dr. Layla Barrera PROF 14(COMP METB)on 022 Albumin [Mass/Vol] 3.5 g/dL Normal 3.4-5.0 [facility] Comment on above: Performed By: #### T SH, CMP, T7, MG #### [facility] [address] [place] [address] Dr. Layla Barrera Albumin/Globulin [Mass ratio] 1.1 {ratio} Normal [facility] Comment on above: Performed By: #### T SH, CMP, T7, MG #### [facility] [address] [place] [address] Dr. Layla Barrera ALP [Catalytic activity/Vol] 97 U/L Normal 46-116 [facility] Comment on above: Performed By: #### T SH, CMP, T7, MG #### [facility] [address] [place] [address] Dr. Layla Barrera ALT [Catalytic activity/Vol] 64 U/L Critically high 16-63 [facility] Comment on above: Performed By: #### T SH, CMP, T7, MG #### [facility] [address] [place] [address] Dr. Layla Barrera Anion gap [Moles/Vol] 11.6 mmol/L Normal [facility] Comment on above: Performed By: #### T SH, CMP, T7, MG #### [facility] [address] [place] [address] Dr. Layla Barrera AST [Catalytic activity/Vol] 27 U/L Normal 15-37 [facility] Comment on above: Performed By: #### T SH, CMP, T7, MG #### [facility] [address] [place] [address] Dr. Layla Barrera Bilirubin [Mass/Vol] 0.8 mg/dL Normal 0.2-1.0 [facility] Comment on above: Performed By: #### T SH, CMP, T7, MG #### [facility] [address] [address] [address] Layla Barrera Calcium [Mass/Vol] 9.0 mg/dL Normal 8.5-10.1 [facility] Comment on above: Performed By: #### T SH, CMP, T7, MG #### [facility] [address] [address] [address] Layla Barrera Chloride [Moles/Vol] 102 mmol/L Normal 98-107 [facility] Comment on above: Performed By: #### T SH, CMP, T7, MG #### [facility] [address] [place] [address] Dr. Layla Barrera CO2 [Moles/Vol] 27.3 mmol/L Normal 21.0-32.0 [facility] Comment on above: Performed By: #### T SH, CMP, T7, MG #### [facility] [address] [place] [address] Dr. Layla Barrera Creatinine [Mass/Vol] 1.15 mg/dL Normal 0.70-1.30 [facility] Comment on above: Performed By: #### T SH, CMP, T7, MG #### [facility] [address] [place] [address] Dr. Layla Barrera EGFR-AF BRAZILIAN >60 Normal >=60 [facility] Comment on above: Performed By: #### T SH, CMP, T7, MG #### [facility] [address] [place] [address] Dr. Layla Barrera EGFR-NON AF BRAZILIAN >60 Normal >=60 [facility] Comment on above: Performed By: #### T SH, CMP, T7, MG #### [facility] [address] [place] [address] Dr. Layla Barrera Globulin (S) [Mass/Vol] 3.3 g/dL Normal [facility] Comment on above: Performed By: #### T SH, CMP, T7, MG #### [facility] [address] [place] [address] Dr. Layla Barrera Glucose [Mass/Vol] 144 mg/dL Critically high 74-106 [facility] Comment on above: Performed By: #### T SH, CMP, T7, MG #### [facility] [address] [place] [address] Dr. Layla Barrera Potassium [Moles/Vol] 3.9 mmol/L Normal 3.5-5.1 [facility] Comment on above: Performed By: #### T SH, CMP, T7, MG #### [facility] [address] [place] [address] Dr. Layla Barrera Protein [Mass/Vol] 6.8 g/dL Normal 6.4-8.2 [facility] Comment on above: Performed By: #### T SH, CMP, T7, MG #### [facility] [address] [place] [address] Dr. Layla Barrera Sodium [Moles/Vol] 137 mmol/L Normal 136-145 [facility] Comment on above: Performed By: #### T SH, CMP, T7, MG #### [facility] [address] [place] [address] Dr. Layla Barrera Urea nitrogen [Mass/Vol] 16.0 mg/dL Normal 7.0-18.0 [facility] Comment on above: Performed By: #### T SH, CMP, T7, MG #### [facility] [address] [place] [address] Dr. Layla Barrera Urea nitrogen/Creatinine [Mass ratio] 13.9 mg/mg Normal [facility] Comment on above: Performed By: #### T SH, CMP, T7, MG #### [facility] [address] [place] [address] Dr. Layla Barrera SEDIMENTATION RATEon 022 SED RATE 10 mm/hr Normal 0-10 [facility] Comment on above: Performed By: #### 5 6506, 23656 #### [facility] [address] [place] [address], [facility] TSHon 11-25-2021 TSH 2.406 uIU/mL Normal 0.358-3.740 [facility] Comment on above: Performed By: #### T SH, CMP, T7, MG #### [facility] [address] [place], [place] [address] Dr. Layla Barrera TSH RANGE SEE BELOW Normal [facility] Comment on above: Result Comment: <0.3 4 UIU/ml HYPERTHYROID 0.34-5.60 UIU/ml EUTHYROID >5.60 UIU/ml HYPOTHYROID Performed By: #### T SH, CMP, T7, MG #### [facility] [address] [address] [address] Layla Barrera CBC W/DIFFon 05-27-2021 ABS IMM GRANS 0.0 10*3/uL Normal 0.0-0.2 [facility] Comment on above: Performed By: #### 5 0103 #### [facility] [address] [place] [address], [facility] ABS NEUTROPHILS 3.8 10*3/uL Normal 1.6-7.6 [facility] Comment on above: Performed By: #### 5 0103 #### [facility] [address] [place] [address], [facility] Basophils (Bld) [#/Vol] 0.0 10*3/uL Normal 0.0-0.2 [facility] Comment on above: Performed By: #### 5 0103 #### [facility] [address] [place] [address], [facility] Basophils/100 WBC (Bld) 0.6 % Normal 0.0-1.0 [facility] Comment on above: Performed By: #### 5 0103 #### [facility] [address] [facility] [place] [address], [facility] Eosinophils (Bld) [#/Vol] 0.2 10*3/uL Normal 0.0-0.5 [facility] Comment on above: Performed By: #### 5 0103 #### [facility] [address] [facility] [place] [place] [address], [facility] Eosinophils/100 WBC (Bld) 2.7 % Normal 0.0-6.0 [facility] Comment on above: Performed By: #### 5 0103 #### [facility] [address] [facility]. [address] Erythrocyte distribution width (RBC) [Ratio] 13.4 % Normal 11.5-15.0 [facility] Comment on above: Performed By: #### 5 0103 #### [facility] [address] [facility] [place] [address], [facility] Hematocrit (Bld) [Volume fraction] 41.7 % Normal 39.0-50.0 [facility] Comment on above: Performed By: #### 5 0103 #### [facility] [address] [facility]. [address] Hemoglobin (Bld) [Mass/Vol] 14.3 g/dL Normal 13.0-17.0 [facility] Comment on above: Performed By: #### 5 0103 #### [facility] [address] [facility]. [address] IMMATURE GRANS 0.6 % Normal 0.0-1.0 [facility] Comment on above: Performed By: #### 5 0103 #### [facility] [address] [facility]. [address] Lymphocytes (Bld) [#/Vol] 2.5 10*3/uL Normal 1.2-4.0 [facility] Comment on above: Performed By: #### 5 3 #### [facility] [address] Lymphocytes/100 WBC (Bld) 35.0 % Normal 20.0-45.0 [facility] Comment on above: Performed By: #### 5 3 #### [facility] [address] [facility] [place] [address], [facility] MCH (RBC) [Entitic mass] 31.6 pg Normal 27.0-33.0 [facility] Comment on above: Performed By: #### 5 0103 #### [facility] [address] [facility]. [address] MCHC (RBC) [Mass/Vol] 34.3 g/dL Normal 32.0-35.0 [facility] Comment on above: Performed By: #### 5 0103 #### [facility] [address] [facility] [place] [place] [address], [facility] MCV (RBC) [Entitic vol] 92.3 fL Normal 82.0-98.0 [facility] Comment on above: Performed By: #### 5 0103 #### [facility] [address] Monocytes (Bld) [#/Vol] 0.5 10*3/uL Normal 0.1-1.0 [facility] Comment on above: Performed By: #### 5 0103 #### [facility] [address] MONOS 7.4 % Normal 5.0-12.0 [facility] Comment on above: Performed By: #### 5 3 #### [facility] [address] Neutrophils/100 WBC (Bld) 53.7 % Normal 40.0-72.0 [facility] Comment on above: Performed By: #### 5 3 #### [facility] [address] Nucleated RBC/100 WBC (Bld) [Ratio] 0 % Normal 0-0 [facility] Comment on above: Performed By: #### 5 3 #### [facility] [address] [place] [address], [facility] PLAT CNT 194 10*3/uL Normal 150-400 [facility] Comment on above: Performed By: #### 5 3 #### [facility] [address] [place] [address], [facility] RBC (Bld) [#/Vol] 4.52 10*6/uL Normal 4.20-5.70 [facility] Comment on above: Performed By: #### 5 [id number] #### [facility] [address] [place] [address], [facility] WBC (Bld) [#/Vol] 7.02 10*3/uL Normal 4.00-10.60 [facility] Comment on above: Performed By: #### 5 0103 #### [facility] [address] [place] [address], [facility] LIVER BATTERYon 05-27-2021 Albumin [Mass/Vol] 4.1 g/dL Normal 3.5-5.7 [facility] Comment on above: Performed By: #### 9 [id number] #### [facility] [address] [place] [address], [facility] ALKALINE PHOSPH 75 IU/L Normal 34-104 [facility] Comment on above: Performed By: #### 9 [id number] #### [facility] [address] ALT [Catalytic activity/Vol] 42 U/L Normal 7-52 [facility] Comment on above: Performed By: #### 9 [id number] #### [facility] [address] [place] [address], [facility] AST [Catalytic activity/Vol] 27 U/L Normal 13-39 [facility] Comment on above: Performed By: #### 9 [id number] #### [facility] [address] [place] [address], [facility] Bilirubin [Mass/Vol] 0.5 mg/dL Normal 0.3-1.0 [facility] Comment on above: Performed By: #### 9 [id number] #### [facility] [address] [place] [address], [facility] Bilirubin.direct [Mass/Vol] 0.1 mg/dL Normal 0.0-0.2 [facility] Comment on above: Performed By: #### 9 [id number] #### [facility] [address] [place] [address], [facility] Protein [Mass/Vol] 6.8 g/dL Normal 6.0-8.3 [facility] Comment on above: Performed By: #### 9 [id number] #### [facility] [address] [place], [place] [address] Vital Signs Date Time Vital Sign Value Performing Clinician Facility 08-20-2024 15:26-0500 Body height 175.3 cm Fatou Cummins VP [employer]FFER[employer]IST Work Phone: [facility] 08-20-2024 15:26-0500 Body mass index (BMI) [Ratio] 35.88 kg/m2 Fatou Cummins VP [employer]DIFFERENTIAL SPECIALIST Work Phone: [facility] 08-20-2024 15:26-0500 Body weight 110.22 kg Fatou Cummins VP [employer]FFER[employer] SPECIALIST Work Phone: [facility] 08-20-2024 15:26-0500 Diastolic blood pressure 68 mm[Hg] Fatou Cummins VP [employer]DIFFERENTIAL SPECIALIST Work Phone: [facility] 08-20-2024 15:26-0500 Heart rate 80 /min Fatou Cummins VP [employer]DIFFERENTIAL SPECIALIST Work Phone: [facility] 08-20-2024 15:26-0500 Systolic blood pressure 140 mm[Hg] Fatou Cummins VP [employer]DIFFERENTIAL SPECIALIST Work Phone: [facility] 08-06-2024 11:33-0500 Diastolic blood pressure 82 mm[Hg] [address] 08-06-2024 11:33-0500 Heart rate 76 /min [address] 08-06-2024 11:33-0500 Systolic blood pressure 136 mm[Hg] [address] 07-26-2024 08:54-0500 Body height 170.2 cm Cj Pocos DO Work Phone: [facility] 07-26-2024 08:54-0500 Body mass index (BMI) [Ratio] 38.22 kg/m2 Cj Pocos DO Work Phone: [facility] 07-26-2024 08:54-0500 Body weight 110.68 kg Cj Pocos DO Work Phone: [facility] 07-25-2024 14:26-0500 Body height 175.[address] 07-25-2024 14:26-0500 Body mass index (BMI) [Ratio] 36.33 kg/m2 [address] 07-25-2024 14:26-0500 Body weight 111.[address] 07-25-2024 14:26-0500 Diastolic blood pressure 74 mm[Hg] [address] 07-25-2024 14:26-0500 Systolic blood pressure 126 mm[Hg] [address] 07-23-2024 09:39-0500 Body height 175.3 cm Fatou Cummins VP [employer]IST Work Phone: [facility] 07-23-2024 09:39-0500 Body mass index (BMI) [Ratio] 36.33 kg/m2 Fatou Cummins VP [employer]IST Work Phone: [facility] 07-23-2024 09:39-0500 Body weight 111.58 kg Fatou Cummins VP [employer]DIFFER[employer] SPECIALIST Work Phone: [facility] 07-23-2024 09:39-0500 Diastolic blood pressure 74 mm[Hg] Fatou Cummins VP [employer]DIFFERENTIAL SPECIALIST Work Phone: [facility] 07-23-2024 09:39-0500 Heart rate 64 /min Fatou Cummins VP [employer]DIFFERENTIAL SPECIALIST Work Phone: [facility] 07-23-2024 09:39-0500 Systolic blood pressure 124 mm[Hg] Fatou Cummins VP [employer]IST Work Phone: [facility] 01-19-2024 11:30-0400 Blood Pressure Location Nguyễn VELA [facility] 01-19-2024 11:30-0400 Body temperature 98.6 [degF] Nguyễn VELA [facility] 01-19-2024 11:30-0400 Diastolic blood pressure 84 mm[Hg] Nguyễn VELA [facility] 01-19-2024 11:30-0400 Heart rate 74 /min Nguyễn VELA [facility] 01-19-2024 11:30-0400 Respiratory rate 16 /min Nguyễn VELA [facility] 01-19-2024 11:30-0400 Systolic blood pressure 133 mm[Hg] Nguyễn VELA [facility] 11-27-2023 10:39-0400 Diastolic blood pressure 80 mm[Hg] Johnnie Deras MD Work Phone: [facility] 11-27-2023 10:39-0400 Systolic blood pressure 130 mm[Hg] Johnnie Deras MD Work Phone: [facility] 11-27-2023 10:11-0400 Body height 175.3 cm Johnnie Deras MD Work Phone: [facility] 11-27-2023 10:11-0400 Body mass index (BMI) [Ratio] 35.12 kg/m2 Johnnie Deras MD Work Phone: [facility] 11-27-2023 10:11-0400 Body weight 107.86 kg Johnnie Deras MD Work Phone: [facility] 11-27-2023 10:11-0400 Heart rate 80 /min Johnnie Deras MD Work Phone: [facility] 07-18-2023 14:14-0500 Blood Pressure Location Shaquille MAXX [facility] [place] 07-18-2023 14:14-0500 Diastolic blood pressure 88 mm[Hg] Shaquille NILL [facility] [place] 07-18-2023 14:14-0500 Heart rate 92 /min Shaquille NILL [facility] [place] 07-18-2023 14:14-0500 Respiratory rate 16 /min Shaquille MERYL [facility] [place] 07-18-2023 14:14-0500 Systolic blood pressure 138 mm[Hg] Shaquille NILL [facility] 03-20-2023 14:45-0400 Diastolic blood pressure 92 mm[Hg] Nguyễn VELA [facility] 03-20-2023 14:45-0400 Mean blood pressure 111 mm[Hg] Nguyễn VELA [facility] 03-20-2023 14:45-0400 Systolic blood pressure 150 mm[Hg] Nguyễn VELA [facility] 03-20-2023 14:29-0400 Blood Pressure Location Nguyễn VELA [facility] 03-20-2023 14:29-0400 Diastolic blood pressure 91 mm[Hg] Nguyễn VELA [facility] 03-20-2023 14:29-0400 Heart rate 86 /min Nguyễn VELA [facility] 03-20-2023 14:29-0400 Systolic blood pressure 158 mm[Hg] Nguyễn VELA [facility] 12-28-2021 10:15-0400 Body height 177.8 cm Mayra M Hoy Work Phone: [facility] [address] DO Work Phone: 12-28-2021 10:15-0400 Body mass index (BMI) [Ratio] 34.15 kg/m2 Mayra M Hoy Work Phone: [facility] 250 DO Work Phone: 12-28-2021 10:15-0400 Body surface area Derived from formula 2.25 m2 Mayra M Hoy Work Phone: [facility] 250 DO Work Phone: 12-28-2021 10:15-0400 Body weight 107.96 kg Mayra M Hoy Work Phone: [facility] 250 DO Work Phone: 12-28-2021 10:15-0400 Diastolic blood pressure 70 mm[Hg] Mayra M Hoy Work Phone: [facility] 250 DO Work Phone: 12-28-2021 10:15-0400 Heart rate 60 /min Mayra M Hoy Work Phone: [facility] 250 DO Work Phone: 12-28-2021 10:15-0400 Systolic blood pressure 138 mm[Hg] Mayra M Hoy Work Phone: [facility] DO Work Phone: 12-28-2021 09:51-0400 Body height 177.8 cm Mayra M Hoy Work Phone: [facility] 250 DO Work Phone: 12-28-2021 09:51-0400 Body mass index (BMI) [Ratio] 34.15 kg/m2 Mayra M Hoy Work Phone: [facility] 250 DO Work Phone: 12-28-2021 09:51-0400 Body surface area Derived from formula 2.25 m2 Mayra M Hoy Work Phone: [facility] 250 DO Work Phone: 12-28-2021 09:51-0400 Body weight 107.96 kg Mayra M Hoy Work Phone: [facility] 250 DO Work Phone: 12-28-2021 09:51-0400 Diastolic blood pressure 70 mm[Hg] Mayra M Hoy Work Phone: [facility] DO Work Phone: 12-28-2021 09:51-0400 Heart rate 60 /min Mayra Jesse Hoy Work Phone: [facility] 250 DO Work Phone: 12-28-2021 09:51-0400 Systolic blood pressure 146 mm[Hg] Mayra M Hoy Work Phone: [facility] DO Work Phone: 12-22-2021 08:00-0400 53 1 Mayra M Hoy Work Phone: [facility] 250 DO Work Phone: Comment on above: [id number] 12-08-2021 15:22-0400 Body height 177.8 cm Mayra M Hoy Work Phone: [facility] DO Work Phone: 12-08-2021 15:22-0400 Body mass index (BMI) [Ratio] 34.15 kg/m2 Mayra M Hoy Work Phone: [facility] 250 DO Work Phone: 12-08-2021 15:22-0400 Body surface area Derived from formula 2.25 m2 Mayra M Hoy Work Phone: [facility] 250 DO Work Phone: 12-08-2021 15:22-0400 Body weight 107.96 kg Mayra M Hoy Work Phone: [facility] 250 DO Work Phone: 12-08-2021 15:22-0400 Diastolic blood pressure 70 mm[Hg] Mayra M Hoy Work Phone: [facility] 250 DO Work Phone: 12-08-2021 15:22-0400 Heart rate 87 /min Mayra M Hoy Work Phone: [facility] 250 DO Work Phone: 12-08-2021 15:22-0400 Systolic blood pressure 138 mm[Hg] Mayra M Hoy Work Phone: [facility] DO Work Phone: 12-08-2021 15:12-0400 Diastolic blood pressure 70 mm[Hg] Mayra M Hoy Work Phone: [facility] 250 DO Work Phone: 12-08-2021 15:12-0400 Systolic blood pressure 140 mm[Hg] Mayra M Hoy Work Phone: [facility] 250 DO Work Phone: 12-08-2021 15:08-0400 Body height 177.8 cm Mayra M Hoy Work Phone: [facility] DO Work Phone: 12-08-2021 15:08-0400 Body mass index (BMI) [Ratio] 34.15 kg/m2 Mayra M Hoy Work Phone: [facility] 250 DO Work Phone: 12-08-2021 15:08-0400 Body surface area Derived from formula 2.25 m2 Mayra Molina Hoy Work Phone: [facility] DO Work Phone: 12-08-2021 15:08-0400 Body weight 107.96 kg Mayra Molina Hoy Work Phone: [facility] 250 DO Work Phone: 12-08-2021 15:08-0400 Diastolic blood pressure 82 mm[Hg] Mayra Molina Hoy Work Phone: [facility] 250 DO Work Phone: 12-08-2021 15:08-0400 Heart rate 87 /min Mayra Navarrete Work Phone: [facility] 250 DO Work Phone: 12-08-2021 15:08-0400 Systolic blood pressure 142 mm[Hg] Mayra Molina Homichelle Work Phone: [facility] 250 DO Work Phone: Encounters Encounter Date Encounter Type Care Provider Facility Start: 03-18-2025 End: 03-18-2025 ambulatory [facility] Start: 11-29-2024 End: 11-29-2024 ambulatory [facility] Start: 10-22-2024 End: 10-22-2024 Bamboo flowsheet Radha Montes MD Work Phone: [facility] Start: 10-22-2024 End: 10-22-2024 Bamboo flowsdaja Montes MD Work Phone: [facility] Start: 10-22-2024 End: 10-22-2024 Postop follow up visit related to original px Radha Montes MD Work Phone: [facility] Comment on above: Encounter for remova l of sutures (Primary Dx) Start: 10-22-2024 End: 10-22-2024 ambulatory RADHA A PETITTI Not Available Start: 10-16-2024 End: 10-16-2024 Subsequent hospital visit by physician Rad External Film EF [facility]TERNAL [facility] Comment on above: Arrived Start: 10-16-2024 End: 10-16-2024 [facility] Start: 10-09-2024 End: 10-09-2024 Bamboo daria Montes MD Work Phone: [facility] Start: 10-09-2024 End: 10-09-2024 Yola Montes MD Work Phone: [facility] Start: 10-09-2024 End: 10-09-2024 Patient encounter procedure Radha Montes MD Work Phone: [facility] Comment on above: Epidermal inclusion cyst (Primary Dx); Other specified erythematous conditions Start: 10-09-2024 End: 10-09-2024 ambulatory RADHA MORINI Not Available Start: 09-17-2024 End: 09-17-2024 Office outpatient visit 15 minutes Radha Montes MD Work Phone: [facility] Comment on above: EIC (epidermal inclu reg cyst) (Primary Dx); Encounter for removal of sutures; Seborrheic keratosis, inflamed; Folliculitis Start: 09-17-2024 End: 09-17-2024 ambulatory RADHA A PETITTI Not Available Start: 09-10-2024 End: 09-10-2024 ambulatory RADHA A PETITTI Not Available Start: 09-10-2024 End: 09-10-2024 Yola Montes MD Work Phone: [facility] Start: 09-10-2024 End: 09-10-2024 Yola Montes MD Work Phone: [facility] Start: 09-10-2024 End: 09-10-2024 Office outpatient visit 15 minutes Radha Montes MD Work Phone: [facility] Comment on above: Other seborrheic rey matitis (Primary Dx); Rash and other nonspecific skin eruption; Impetigo Start: 09-10-2024 End: 09-10-2024 [facility] Start: 08-20-2024 End: 08-20-2024 Office outpatient visit 15 minutes Fatou [facility] VP [employer]IST Work Phone: [facility] Comment on above: Benign essential hyp ertension (Primary Dx); Short of breath on exertion; 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; Mixed hyperlipidemia; Cardiomyopathy, unspecified type (Multi); BMI 35.0-35.9,adult; Obstructive sleep apnea syndrome Start: 08-20-2024 End: 08-20-2024 ambulatory [facility] Ambulatory Start: 08-07-2024 End: 08-07-2024 Subsequent hospital visit by physician Paula Elizabeth Admin Room 1 [facility] Start: 08-07-2024 End: 08-07-2024 ambulatory [facility] Start: 08-06-2024 End: 08-06-2024 Subsequent hospital visit by physician Paula Estrada Stress Room 1 [facility] Comment on above: Short of breath on e xertion; Fatigue, unspecified type Start: 08-06-2024 End: 08-06-2024 ambulatory [facility] Start: 08-01-2024 End: 08-01-2024 Bamboo flowsheet Moira Moy [employer] SERVICE SALES REPRESENTATIVE [facility] Start: 08-01-2024 End: 08-01-2024 Bamboo flowsheet Moira Moy HERBIC[employer] SERVICE SALES REPRESENTATIVE [facility] Start: 08-01-2024 End: 08-01-2024 Treatment Moira Moy [employer] SALES REPRESENTATIVE [facility] Comment on above: Unilateral vestibula r weakness, right (Primary Dx); Cervicalgia; Balance disorder Start: 07-26-2024 End: 07-26-2024 Patient encounter procedure Cj Bertrand DO Work Phone: [facility] Comment on above: Right hand pain (Sapphire danya Dx); Primary osteoarthritis of right wrist; Dupuytren's contracture Start: 07-26-2024 End: 07-26-2024 ambulatory DURAN SHASHI Not Available Start: 07-25-2024 End: 07-25-2024 Subsequent hospital visit by physician Paula Estrada Echo/Vasc Room 2 [facility] Comment on above: Short of breath on e xertion; Benign essential hypertension Start: 07-25-2024 End: 07-25-2024 ambulatory [facility] Start: 07-23-2024 End: 07-23-2024 Yola Montes MD Work Phone: [facility] Start: 07-23-2024 End: 07-23-2024 Yola Montes MD Work Phone: [facility] Start: 07-23-2024 End: 07-23-2024 ambulatory RADHA MONTES Not Available Start: 07-23-2024 End: 07-23-2024 Office outpatient visit 25 minutes Radha Montes MD Work Phone: [facility] Comment on above: Other rosacea (Prima ry Dx); Angioma of skin; Lentigines; Seborrheic keratosis; Other seborrheic dermatitis; Epidermal inclusion cyst; History of basal cell carcinoma; Actinic keratosis; Seborrheic keratosis, inflamed Start: 07-23-2024 End: 07-23-2024 Office outpatient visit 25 minutes Fatou Chicas [place] VP [employer]IST Work Phone: [facility] Comment on above: Short of breath on e xertion (Primary Dx); Benign essential hypertension; Mixed hyperlipidemia; 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; Obstructive sleep apnea syndrome; Fatigue, unspecified type; Dyspnea on exertion; Cardiomyopathy, unspecified type (Multi) Start: 07-23-2024 End: 07-23-2024 ambulatory [facility] Start: 07-17-2024 End: 07-17-2024 Bamboo flowsheet Moira Gujake HERB[employer] SERVICE SALES REPRESENTATIVE [facility] Start: 07-17-2024 End: 07-17-2024 Bamboo flowsheet Moira Moy HERB[employer] SERVICE SALES REPRESENTATIVE [facility] Start: 07-17-2024 End: 07-17-2024 Treatment Moira Gujake [employer] SERVICE SALES REPRESENTATIVE [facility] Comment on above: Cervicalgia (Primary Dx); Unilateral vestibular weakness, right; Balance disorder Start: 07-11-2024 End: 07-11-2024 [facility] Start: 07-11-2024 End: 07-11-2024 [facility] Work [facility] Start: 07-11-2024 End: 07-11-2024 ambulatory [facility] Not Available Start: 07-11-2024 End: 07-11-2024 Office outpatient visit 15 minutes [facility] Work Phone: [facility] Comment on above: Rash and other nonsp ecific skin eruption (Primary Dx) Start: 07-09-2024 End: 07-09-2024 Bamboo flowsheet Moira Berryjake HERBIC[employer] SERVICE SALES REPRESENTATIVE [facility] Start: 07-09-2024 End: 07-09-2024 Bamboo flowsheet Moira Gujake HERBIC[employer] SERVICE SALES REPRESENTATIVE [facility] Start: 07-09-2024 End: 07-09-2024 Treatment Moira Jamaljake [employer] SERV[employer] SALES REPRESENTATIVE [facility] Comment on above: Unilateral vestibula r weakness, right (Primary Dx); Cervicalgia; Balance disorder Start: 06-26-2024 End: 06-26-2024 Treatment Katey Shaikh [employer] SERVICE SALES REPRESENTATIVE Work Phone: [facility] Comment on above: Unilateral vestibula r weakness, right (Primary Dx); Cervicalgia; Balance disorder Start: 06-25-2024 End: 06-25-2024 ambulatory PHILIPPE ROUSE Not Available Start: 06-25-2024 End: 06-25-2024 Bamboo flowsheet Philippe Rouse DO Work Phone: [facility] Start: 06-25-2024 End: 06-25-2024 Bamboo flowsheet Philippe Rouse DO Work Phone: [facility] Start: 06-18-2024 End: 06-18-2024 Bamboo flowsheet Katey Depoy HERBICIDE SERVICE SALES REPRESENTATIVE Work Phone: [facility] Start: 06-18-2024 End: 06-18-2024 Bamboo flowsheet Katey Depoy HERBICIDE SERVICE SALES REPRESENTATIVE Work Phone: [facility] Start: 06-18-2024 End: 06-18-2024 Treatment Katey Depoy HERBIC[employer] SERVICE SALES REPRESENTATIVE Work Phone: [facility] Comment on above: Unilateral vestibula r weakness, right (Primary Dx); Cervicalgia; Balance disorder Start: 06-10-2024 End: 06-10-2024 Treatment Shaquille Valencia PT Work Phone: [facility] PT Comment on above: Cervicalgia (Primary Dx); Balance disorder; Unilateral vestibular weakness, right Start: 05-22-2024 End: 05-22-2024 Bamboo flowsheet Katey Depoy HERBICIDE SERVICE SALES REPRESENTATIVE Work Phone: [facility] Start: 05-22-2024 End: 05-22-2024 Bamboo flowsheet Katey Depoy HERBICIDE SERVICE SALES REPRESENTATIVE Work Phone: [facility] Start: 05-22-2024 End: 05-22-2024 Treatment Katey Depoy HERBICIDE SERVICE SALES REPRESENTATIVE Work Phone: [facility] Comment on above: Balance disorder (Pr imary Dx); Unilateral vestibular weakness, right; Cervicalgia Start: 05-07-2024 End: 05-07-2024 Bamboo flowsdaja Valencia PT Work Phone: [facility] Start: 05-07-2024 End: 05-07-2024 Bamboo flowsheet Shaquille Valencia PT Work Phone: [facility] Start: 05-07-2024 End: 05-07-2024 Treatment Shaquille Valencia PT Work Phone: [facility] Comment on above: Unilateral vestibula r weakness, right (Primary Dx); Cervicalgia; Balance disorder Start: 04-23-2024 End: 04-23-2024 Treatment Shaquille Valencia PT Work Phone: [facility] Comment on above: Cervicalgia (Primary Dx); Balance disorder; Unilateral vestibular weakness, right Start: 04-17-2024 End: 04-17-2024 ambulatory REHANA [facility] Start: 04-04-2024 ambulatory [facility] Start: 04-02-2024 End: 04-02-2024 Treatment Shaquille Valencia PT Work Phone: [facility] Comment on above: Unilateral vestibula r weakness, right (Primary Dx); Cervicalgia; Balance disorder Start: 03-18-2024 End: 03-18-2024 Bamboo flowsheet Shaquille Valencia PT Work Phone: [facility] Start: 03-18-2024 End: 03-18-2024 Bamboo flowsheet Shaquille Valencia PT Work Phone: [facility] Start: 03-18-2024 End: 03-18-2024 Treatment Shaquille Valencia PT Work Phone: [facility] Comment on above: Unilateral vestibula r weakness, right (Primary Dx); Cervicalgia; Balance disorder Start: 03-08-2024 End: 03-08-2024 Bamboo flowsheet Shaquille Valencia PT Work Phone: [facility] Start: 03-08-2024 End: 03-08-2024 Bamboo flowsheet Shaquille Valencia PT Work Phone: [facility] Start: 03-08-2024 End: 03-08-2024 Evaluation Shaquille Valencia PT Work Phone: [facility] Comment on above: Balance disorder (Pr imary Dx); Unilateral vestibular weakness, right; Cervicalgia Start: 02-01-2024 End: 02-01-2024 ambulatory RADHA MONTES Not Available Start: 01-23-2024 End: 01-23-2024 ambulatory MEGAN Khan TIMMIS Not Available Start: 01-19-2024 End: 01-19-2024 Patient encounter procedure Nguyễn Peter MIRIAN [facility] [place] Start: 12-27-2023 End: 12-27-2023 ambulatory MEGAN Khan TIMMIS Not Available Start: 12-25-2023 End: 12-25-2023 ambulatory YUE Linden JOSE Not Available Start: 11-27-2023 End: 11-27-2023 Office outpatient visit 15 minutes Johnnie Deras MD Work Phone: [facility] Comment on above: Coronary artery dise ase involving torres martinez coronary artery of torres martinez heart without angina pectoris (Primary Dx); Benign essential hypertension; Mixed hyperlipidemia; Former cigarette smoker Start: 09-13-2023 End: 09-14-2023 ambulatory Shaquille R MAXX Facility: [place] Start: 09-13-2023 End: 09-13-2023 Patient encounter procedure Shaquille R MAXX General Surgery Nill/Said [place] Start: 09-01-2023 End: 09-02-2023 ambulatory Shaquille R NILL Facility: [place] Start: 09-01-2023 End: 09-01-2023 Patient encounter procedure Shaquille R MAXX General Surgery Nill/Said [place] Start: 08-22-2023 End: 08-23-2023 ambulatory Mayra Navarrete Facility:[facility] Start: 08-22-2023 End: 08-22-2023 Patient encounter procedure Shaquille LILLY General Surgery Nill/Said [place] Start: 08-22-2023 End: 08-22-2023 ambulatory MD Mayra Navarrete Work Phone: [facility] Work Phone: Start: 08-22-2023 End: 08-22-2023 Departed Referred MD Mayra Navarrete Work Phone: [facility] [place] [facility] Start: 07-18-2023 End: 07-19-2023 ambulatory Shaquille R NILL Facility: [facility] Start: 07-18-2023 End: 07-18-2023 Patient encounter procedure Shaquille R NILL General Surgery Nill/Said [place] Start: 04-05-2023 ambulatory MAYRA NAVARRETE [facility] Start: 04-05-2023 End: 04-05-2023 ambulatory [facility] Start: 03-20-2023 End: 03-21-2023 ambulatory Nguyễn VELA [facility] Start: 03-20-2023 End: 03-20-2023 Patient encounter procedure Nguyễn VELA [facility] Start: 10-28-2022 DAYNA ORR, Provider : ALIYA YOUNG PIPE FINISHER 1,[id number], Status: Pen, Time: 10:00 AM Mayra Navarrete Work Phone: [facility] 250 DO Work Phone: Start: 10-28-2022 Patient encounter procedure Mayra Navarrete Work Phone: [facility] 250 DO Work Phone: Start: 10-28-[address] Johnnie Deras II Facility: Start: 10-27-2022 Telephone encounter Mayra Jesse Landon Work Phone: [facility] 250 DO Work Phone: Start: 10-25-2022 End: 10-26-2022 ambulatory KWADWO CRUMP Facility:[facility] Start: 06-20-2022 End: 06-21-[address] MAYRA NAVARRETE . Facility:[facility] Start: 03-11-2022 End: 03-12-[address] MAYRA NAVARRETE . Facility:[facility] Start: 01-25-2022 Rx Renewal Mayra Navarrete Work Phone: [facility] 600 DO Work Phone: Start: 12-30-2021 Chart Update Mayra Navarrete Work Phone: [facility] 250 DO Work Phone: Start: 12-28-2021 Office outpatient vi sit 25 minutes Mayra Navarrete Work Phone: [facility] 250 DO Work Phone: Start: 12-28-2021 Patient encounter procedure Mayra Navarrete Work Phone: [facility] 250 DO Work Phone: Start: 12-28-[address] Mayra Navarrete Facility: Start: 12-08-2021 Office outpatient vi sit 25 minutes Mayra Navarrete Work Phone: [facility] 250 DO Work Phone: Start: 12-08-[address] Mayra Navarrete Facility: Start: 11-25-2021 End: 11-26-[address] MAYRA NAVARRETE . Facility: Start: 11-24-2021 End: 11-25-[address] MAYRA NAVARRETE . Facility: Procedures Date Procedure Procedure Detail Performing Clinician Start: 10-16-2024 Study Interpretation of outside study Loreta Barragan MD Work Phone: Start: 10-09-2024 SKIN EXCISION Radha Montes MD Work Phone: Start: 10-09-2024 SKIN REPAIR Radha Montes MD Work Phone: Start: 09-17-2024 CRYOTHERAPY SKIN LESION Radha Montes MD Work Phone: Start: 09-10-2024 SKIN / NAIL BIOPSY Radha Montes MD Work Phone: Start: 08-07-2024 Cv strs tst xers&/or rx cont ecg trcg only Fatou Cummins VP [employer] Work Phone: Start: 07-26-2024 Radex hand minimum 3 views Cj Bertrand DO Work Phone: Start: 07-25-2024 TTE w or wo fol wcon,Doppler Fatou Chicas Smi th VP [employer] Work Phone: Start: 07-23-2024 End: 07-23-2024 CRYOTHERAPY [...] eyelids of both eyes, unspecified type Start: 08-22-2023 Excision of basal cell carcinoma Shaquille LILLY Start: 04-05-2023 Procedure on back Nguyễn VELA Start: 06-20-[address] MAYRA NAVARRETE . Comment on above: Performed By: #### IDRIS #### [facility] [address] [place] [address] Dr. Layla Barrera Start: 04-09-2014 right knee arthroscopy Nguyễn VELA Start: 02-25-2003 Cystoscopic removal of ureteric stent Nguyễn VELA Arthroscopic knee operation Nguyễn VELA Comment on above: left Arthroscopy of knee Mayra M Homichelle Work Phone: Comment on above: [...] M Hoy Work Phone: Repair of elbow Nguyễnmaranda JOSEPHE RS Comment on above: left Repair of musculoten dinous cuff of shoulder Mayra M Hoy Work Phone: Comment on above: Left; Shoulder Surgery Nguyễn OPAL ERS Total colonoscopy Mayra M Hoy Work Phone: Comment on above: 10Jul2017; Plan of Treatment Date Care Activity Detail Author Start: 07-23-2025 End: 07-23-2025 Patient encounter procedure 07/23/2025 1:00 PM EST Office Visit [facility] [address] [place] [address] Radha Montes MD [address] [place] [address] [facility] Start: 06-25-2025 End: 06-25-2025 Patient encounter procedure 06/25/2025 11:00 AM EST Office Visit [facility] [address] [place] [id number] Philippe Rouse DO [address] [place] [address] [facility] Start: 11-29-2024 End: 11-29-2024 Patient encounter procedure 11/29/2024 10:20 AM EDT Office Visit [facility] [address] [facility] [address] [place] [address] Abdoul Timmons MD [address] [facility] [address] [place] [address] [facility] Start: 10-23-2024 End: 10-23-2024 Patient encounter procedure 10/23/2024 11:00 AM EDT Office Visit [facility] [address] [place] [address] Radha Montes MD [address] [place] [address] [facility] Start: 10-22-2024 End: 10-22-2024 Patient encounter procedure [facility] Comment on above: Arrived Start: 10-09-2024 End: 10-09-2024 Patient encounter procedure 10/09/2024 10:00 AM EDT Office Visit [facility] [address] [place] [address] Radha Montes MD [address] [place] [address] Arrived [facility] Comment on above: Arrived Start: 09-17-2024 End: 09-17-2024 Patient encounter procedure 09/17/2024 11:15 AM EDT Office Visit [facility] [address] [place] [address] Radha Montes MD [address] [place] [address] [facility] Start: 09-10-2024 End: 09-10-2024 Patient encounter procedure 09/10/2024 1:45 PM EST Office Visit [facility] [address] [place] [address] Radha Montes MD [address] [place] [address] [facility] Start: 08-20-2024 End: 08-20-2024 Patient encounter procedure 08/20/2024 3:30 PM EST Office Visit [address] [place] [address] Fatou Cummins, VP [employer] [address] [facility] [address] [place] [address] [facility] Start: 08-07-2024 End: 08-07-2024 Patient encounter procedure [facility] Start: 08-07-2024 End: 08-07-2024 Patient encounter procedure 08/07/2024 11:30 AM EST Appointment [facility] [address] [place] [phone] [facility] Start: 08-07-2024 Subsequent hospital visit by physician 08/07/2024 11:30 AM EST Hospital Encounter [address] [place] [address] [facility] Start: 08-06-2024 End: 08-06-2024 [facility] Start: 08-01-2024 End: 08-01-2024 ambulatory [facility] Comment on above: Arrived Start: 07-26-2024 End: 07-26-2024 Patient encounter procedure 07/26/2024 9:00 AM EST Office Visit [facility] [address] [place] [address] Cj Bertrand, DO [address] [facility] [place] [address] [facility] Start: 07-25-2024 End: 07-25-2024 Professional / ancillary services management 07/25/2024 3:00 PM EST Ancillary Procedure [address] [place] [address] [facility] Start: 07-25-2024 End: 07-25-2024 Patient encounter procedure 07/25/2024 2:30 PM EST Appointment Braydon Rangel[address] [place] [phone] [facility] Start: 07-25-2024 End: 07-25-2024 ambulatory 07/25/2024 11:00 AM EST Treatment [facility] [address] [facility] [address] [place] [address] Moira Moy PTA [facility] Start: 07-23-2024 End: 07-23-2025 Holter monitor study Holter Or Event Scientific Systems Analyst Cardiac Services Routine Short of breath on exertion Dyspnea on exertion Expected: 07/23/2024 (Approximate), Expires: 07/23/2025 [facility] Work Phone: Comment on above: Expected: 07/23/2024 (Approximate), Expi res: 07/23/2025 Start: 07-23-2024 End: 07-23-2026 NM Heart Perfusion W stress and W radionuclide IV Nuclear Stress Test Cardiac Nuclear Medicine Routine Short of breath on exertion Fatigue, unspecified type Expected: 07/23/2024 (Approximate), Expires: 07/23/2026 [facility] Work Phone: Comment on above: Expected: 07/23/2024 (Approximate), Expi res: 07/23/2026 Start: 07-23-2024 End: 07-23-2026 Heart Transthoracic Transthoracic Echo Complete Echocardiography Routine Short of breath on exertion Benign essential hypertension Expected: 07/23/2024 (Approximate), Expires: 07/23/2026 [facility] Service Area Work Phone: Comment on above: Expected: 07/23/2024 (Approximate), Expi res: 07/23/2026 Start: 07-23-2024 End: 07-23-2024 Patient encounter procedure 07/23/2024 1:30 PM EST Office Visit [facility] [address] [place] [address] Radha Montes MD [address] [place], [place] [id number] [facility] Start: 07-22-2024 End: 07-22-2024 Patient encounter procedure 07/22/2024 11:30 AM EST Office Visit [facility] [address] [place] [address] Radha Montes MD [address] [place] [address] [facility] Start: 07-17-2024 End: 07-17-2024 ambulatory [facility] Comment on above: Arrived Start: 07-09-2024 End: 07-09-2024 ambulatory 07/09/2024 10:30 AM EST Treatment [facility] [address] [place] [phone] Moira Moy PTA [facility] Start: 06-26-2024 End: 06-26-2024 ambulatory 06/26/2024 10:30 AM EST Treatment [facility] [address] [place] [address] Katey Shaikh, HERBICIDE SERVICE SALES REPRESENTATIVE [address] [place] [address] [facility] Start: 06-25-2024 End: 06-25-2024 Patient encounter procedure [facility] Comment on above: Arrived Start: 06-25-2024 End: 06-25-2024 ambulatory 06/25/2024 10:30 AM EST Treatment [facility] [address] [place] [address] Moira Moy, HERBICIDE SERVICE SALES REPRESENTATIVE [facility] Start: 06-11-2024 End: 06-11-2024 ambulatory 06/11/2024 10:00 AM EST Treatment [facility] [address] [place] [address] Katey Shaikh, HERBICIDE SERVICE SALES REPRESENTATIVE [address] [place] [address] [facility] Start: 05-15-2024 End: 05-15-2024 ambulatory 05/15/2024 10:30 AM EST Treatment [facility] [address] [place] [address] Katey Shaikh, HERBICIDE SERVICE SALES REPRESENTATIVE [address] [place] [address] [facility] Start: 05-07-2024 End: 05-07-2024 ambulatory [facility] Comment on above: Arrived Start: 04-23-2024 End: 04-23-2024 ambulatory 04/23/2024 9:40 AM EDT Treatment [facility] [address] [place] [address] Shaquille Valencia, PT [address] [place] [address] [facility] Start: 04-02-2024 End: 04-02-2024 ambulatory 04/02/2024 9:30 AM EDT Treatment [facility] [address] [place] [address] Shaquille Valencia, PT [address] [place] [address] [facility] Start: 03-18-2024 End: 03-18-2024 [facility] Comment on above: Cervicalgia (Primary Dx); Balance disorder; Unilateral vestibular weakness, right Start: 03-10-2024 Influenza vaccination [facility] Start: 03-08-2024 End: 03-08-2024 Evaluation 03/08/2024 8:20 AM EDT Evaluation [facility] [address] [place] [address] Shaquille Valencia, PT [address] [place] [address] Balance disorder (Primary Dx) [facility] Comment on above: Balance disorder (Primary Dx) Start: 01-19-2024 ambulatory Ambulatory Facility:[facility] Start: 11-27-2023 End: 11-26-2024 Lipid 1996 panel - Serum or Plasma Lipid Panel Lab Routine Mixed hyperlipidemia Expected: 11/27/2023 (Approximate), Expires: 11/26/2024 [facility] Service Area Work Phone: Comment on above: Expected: 11/27/2023 (Approximate), Expi res: 11/26/2024 Start: 07-27-2023 Medicare Annual Wellness Visit Medicare Annual Wellness Visit (AWV) [facility] Start: 03-10-2023 COVID-19 Vaccine ( season) COVID-19 Vaccine () [facility] Start: 12-06-2022 FUV, Provider: Johnnie Deras, Status: Pen, Time: 10:00 AM FUV, Provider: Johnnie Deras, Status: Pen, Time: 10:00 AM [facility] [facility] [facility] 250 DO Work Phone: Start: 11-24-2022 FUV, Provider: Johnnie Deras, Status: Pen, Time: 2:00 PM FUV, Provider: Johnnie Deras, Status: Pen, Time: 2:00 PM [facility] 250 DO Work Phone: Start: 12-28-2021 FUV, Provider: Johnnie Deras, Status: Pen, Time: 9:45 AM FUV, Provider: Johnnie Deras, Status: Pen, Time: 9:45 AM -[facility] 250 DO Work Phone: Start: 12-22-2021 REST ONLY, Provider: [place] [facility] NUCLEAR 01,[id number], Status: Pen, Time: 8:00 AM REST ONLY, Provider: [place] [facility] NUCLEAR 01,[id number], Status: Pen, Time: 8:00 AM [facility] 250 DO Work Phone: Start: 12-21-2021 STRESSNUC2, Provider: [place] [facility] NUCLEAR 01,[id number], Status: Pen, Time: 8:00 AM STRESSNUC2, Provider: [place] [facility] NUCLEAR 01,[id number], Status: Pen, Time: 8:00 AM -[facility] 250 DO Work Phone: Start: 2001 Hepatitis B Vaccines (1 of 3 - Risk 3-dose series) Hepatitis B Vaccines (1 of 3 - Risk 3-dose series) [facility] Start: 2001 RSV patients and/or patients aged 60+ years (1 - 1-dose 60+ series) RSV patients and/or patients aged 60+ years (1 - 1-dose 60+ series) [facility] Start: 11-03-1991 Zoster Vaccines (1 of 2) Zoster Vaccines (1 of 2) [facility] Start: 11-03-1963 DTaP/Tdap/Td Vaccines (1 - Tdap) DTaP/Tdap/Td Vaccines (1 - Tdap) [facility] Start: 1960 Hepatitis A Vaccines (1 of 2 - Risk 2-dose series) Hepatitis A Vaccines (1 of 2 - Risk 2-dose series) [facility] Start: 1941 Lipid panel Lipid Panel [facility] Start: 1941 Medicare Annual Wellness Visit Medicare Annual Wellness Visit (AWV) [facility] Start: 1941 Screening for osteoporosis Bone Density Scan [facility] Aerobic culture Aerobic culture Microbiology Timed Impetigo Release Upon Ordering for 1 Occurrences starting 09/10/2024 [employer] Work Phone: Comment on above: Release Upon Ordering for 1 Occurrences starting 09/10/2024 Dermatopathology exam Dermatopat hology exam Pathology and Cytology Routine Rash and other nonspecific skin eruption Release Upon Ordering for 1 Occurrences starting 09/10/2024 [employer] Comment on above: Release Upon Ordering for 1 Occurrences starting 09/10/2024 Dermatopathology exam Dermatopat hology exam Pathology and Cytology Timed Epidermal inclusion cyst Release Upon Ordering for 1 Occurrences starting 10/09/2024 [employer] Work Phone: Comment on above: Release Upon Ordering for 1 Occurrences starting 10/09/2024 End: 08-06-2024 NM Heart Perfusion W stress and W radionuclide IV [facility] Service Area Work Phone: Comment on above: Once for 1 Occurrences starting 08/06/19 until 08/06/2024 XR Hand - right 3 Views XR hand 3+ views right Imaging Routine Right hand pain 07/26/2024 8:40 AM EST [employer] Work Phone: Immunizations Immunization Date Immunization Notes Care Provider Rachele torres 05-20-2024 Pfizer COVID-19 vaccine, 12 years and older, (30mcg/0.3mL) (Comirnaty) Fatou Cummins VP [employer]IST Work Phone: [facility] Work Phone: 05-20-2024 RSV, 60 Years And Ol rey (AREXVY) Fatou Cummins VP [employer]DIFFERENTIAL SPECIALIST Work Phone: [facility] Work Phone: 04-18-2024 influenza, seasonal, injectable Fatou Cummins VP [employer]IST Work Phone: [facility] Work Phone: 04-18-2024 influenza virus vaccine, unspecified formulation Radha Montes MD Work Phone: [facility] 07-26-2022 Fluad Quadrivalent 0 .5 ML Intramuscular Prefilled Syringe Mayra Navarrete [facility]: [facility] Work Phone: 07-26-2022 influenza virus vaccine, unspecified formulation Nguyễn VELA [facility] 11-17-2021 Comirnaty 30 MCG/0.3 ML Intramuscular Suspension Mayra Navarrete Work Phone: [facility] 250 DO Work Phone: 11-17-2021 SARS-CoV-2 mRNA (zxyhmdenelw-nqks-furnx se) vaccine Nguyễn VELA [facility] 05-20-2021 Pfizer-BioNTech COVID-19 Vacc 30 MCG/0.3ML Intramuscular Suspension Mayra Navarrete Work Phone: [facility] Comment on above: Result Comment: 2022: [id number] 05-12-2021 influenza, seasonal, injectable Johnnie Deras MD Work Phone: [facility] Work Phone: 11-17-2020 SARS-CoV-2 (COVID-19 ) mRNA BNT-162b2 vax Nguyễn VELA [facility] [place] 10-29-2020 Pfizer-BioNTech COVID-19 Vacc 30 MCG/0.3ML Intramuscular Suspension Mayra Navarrete Work Phone: [facility] Comment on above: Result Comment: 2022: [id number] 10-28-2020 Moderna COVID-19 vaccine, bivalent, blue cap/cunningham label *Check age/dose* Johnnie Deras MD Work Phone: [facility] Work Phone: 10-27-2020 SARS-CoV-2 (COVID-19 ) mRNA BNT-162b2 vax Nguyễn VELA [facility] [place] 10-06-2020 Pfizer-BioNTech COVID-19 Vacc 30 MCG/0.3ML Intramuscular Suspension Mayra Navarrete Work Phone: [facility] Comment on above: Result Comment: 2022: [id number] 09-29-2020 Moderna COVID-19 vaccine, bivalent, blue cap/cunningham label *Check age/dose* Johnnie Deras MD Work Phone: [facility] Work Phone: 04-23-2020 influenza virus vaccine, unspecified formulation Nugyễn VELA [facility] 04-23-2020 influenza, high dose seasonal, preservative-free Mayra Navarrete Work Phone: [facility] [employer] 250 DO Work Phone: 04-09-2018 influenza virus vaccine, unspecified formulation Mayra Navarrete Work Phone: [facility] [employer] 250 DO Work Phone: 07-10-2017 pneumococcal polysaccharide vaccine, 23 valent Mayra M Hoy Work Phone: [facility] [employer] 250 DO Work Phone: 04-09-2016 influenza virus vaccine, unspecified formulation Mayra M Hoy Work Phone: [facility] [employer] 250 DO Work Phone: 04-09-2016 pneumococcal conjuga te vaccine, 13 valent Mayra M Hoy Work Phone: [facility] 250 DO Work Phone: 04-22-2015 influenza virus vaccine, unspecified formulation Nguyễn VELA [facility] 04-22-2015 influenza, injectabl e, quadrivalent, contains preservative Mayra M Hoy Work Phone: [facility] 250 DO Work Phone: 04-09-2015 influenza virus vaccine, unspecified formulation Mayra Molina Hoy Work Phone: [facility] 250 DO Work Phone: 05-22-2014 influenza virus vaccine, unspecified formulation Nguyễn VELA [facility] 05-22-2014 influenza, injectabl e, quadrivalent, contains preservative Mayra Molina Hoy Work Phone: [facility] 250 DO Work Phone: 07-10-2012 influenza virus vaccine, unspecified formulation Mayra Molina Hoy Work Phone: [facility] 250 DO Work Phone: 07-10-2011 pneumococcal polysaccharide vaccine, 23 valent Mayra Molina Hoy Work Phone: [facility] 250 DO Work Phone: influenza virus vaccine, unspecified formulation Mayra Molina Hoy Work Phone: [facility] 250 DO Work Phone: Comment on above: 2011 NEGATED: Highlighted row has not occurred!07-18-2023 influenza virus vaccine, unspecified formulation Shaquille [facility] [place] Payers Date Payer Category Payer Self-pay [id number] 2018 Medicare supplementa l policy (as second payer) [employer] MEDICARE SUPPLEMENT [id number] 2018 Private Health Insurance [id number] .[id number] 2006 Medicare [id number] .[id number] 1959 Medicare [id number] 1959 Private Health Insurance [id number] 1941 Unknown [id number] 2.16.840.1.897627.3.579 .2.356 1941 Unknown [id number] 2.16.840.1.255140.3.579 .2.356 1941 Unknown [id number] 2.16.840.1.536944.3.579 .2.356 1941 Unknown [id number] 2.16.840.1.775005.3.579 .2.593 1941 Unknown [id number] 2.16.840.1.932022.3.579 .2.593 1941 Unknown [id number] 2.16.840.1.450042.3.579 .2.593 1941 Unknown [id number] 2.16.840.1.056523.3.579 .2.593 1941 Unknown [id number] 2.16.840.1.210970.3.579 .2.593 1941 Unknown [id number] 2.16.840.1.606069.3.579 .2.754 1941 Unknown [id number] 2.16.840.1.841761.3.579 .2.754 1941 Unknown [id number] 2.16.840.1.953255.3.579 .2.727 1941 Unknown [id number] 2.16.840.1.701387.3.579 .2.727 1941 Unknown [id number] 2.16.840.1.371242.3.579 .2.727 1941 Unknown [id number] 2.16.840.1.335459.3.579 .2.727 1941 Unknown [id number] 2.16.840.1.970453.3.579 .2.72 1941 Unknown [id number] 2.16.840.1.496252.3.579 .2.727 1941 Unknown [id number] 2.16.840.1.042474.3.579 .2.1245 1941 Unknown [id number] 2.16.840.1.028823.3.579 .2.124 1941 Unknown [id number] 2.16.840.1.432656.3.579 .2.1245 1941 Unknown [id number] 2.16.840.1.318750.3.579 .2.124 1941 Unknown [id number] 2.16.840.1.079137.3.579 .2.1245 1941 Unknown [id number] 2.16.840.1.127133.3.579 .2.124 1941 Unknown [id number] 2.16.840.1.641764.3.579 .2.1244 1941 Unknown [id number] 2.16.840.1.079133.3.579 .2.1258 1941 Unknown [id number] 2.16.840.1.281328.3.579 .2.1258 1941 Unknown [id number] 2.16.840.1.195104.3.579 .2.1258 1941 Unknown [id number] 2.16.840.1.492541.3.579 .2.1258 1941 Unknown [id number] 2.16.840.1.113167.3.579 .2.1258 1941 Unknown [id number] 2.16840.1.893071.3.579 .2.1258 1941 Unknown [id number] 2.16.840.1.216579.3.579 .2.1258 1941 Unknown [id number] 2.16840.1.487798.3.579 .2.1258 1941 Unknown [id number] 2.16.840.1.546978.3.579 .2.1258 1941 Unknown [id number] 2.16.840.1.104930.3.579 .2.1258 1941 Unknown [id number] 2.16.840.1.926287.3.579 .2.1258 1941 Unknown [id number] 2.16.840.1.902695.3.579 .2.1258 1941 Unknown [id number] 2.16.840.1.057105.3.579 .2.1258 1941 Unknown [id number] 2.16.840.1.933033.3.579 .2.1258 1941 Unknown [id number] 2.16.840.1.984922.3.579 .2.1258 1941 Unknown [id number] 2.16.840.1.240805.3.579 .2.1259 1941 Unknown [id number] 2.16.840.1.548573.3.579 .2.1258 1941 Unknown [id number] 2.16.840.1.245586.3.579 .2.1258 1941 Unknown [id number] 2.16.840.1.910563.3.579 .2.1258 1941 Unknown [id number] 2.16.840.1.702218.3.579 .2.1258 1941 Unknown [id number] 2.16.840.1.402611.3.579 .2.1258 1941 Unknown [id number] 2.16.840.1.200785.3.579 .2.1258 1941 Unknown [id number] 2.16.840.1.294703.3.579 .2.1258 1941 Unknown [id number] 2.16.840.1.476577.3.579 .2.1258 1941 Unknown [id number] 2.16.840.1.769768.3.579 .2.1258 1941 Unknown [id number] 2.16.840.1.873824.3.579 .2.1243 1941 Unknown [id number] 2.16.840.1.638856.3.579 .2.1243 1941 Unknown [id number] 2.16.840.1.164059.3.579 .2.1243 1941 Unknown [id number] 2.16.840.1.553905.3.579 .2.1244 Medicare [id number] Unknown Unknown [id number] Unknown [id number] 2.16.840.1.259331.3.579 .2.531 Social History Date Type Detail Facility Start: 11-27-2023 End: 10-09-2024 Caffeine use Caffeine use -[facility] 250 DO Work Phone: Comment on above: Coffee: 1 cup dailyS ac- Occasionally; Quit: 1991; Start: 03-20-2023 End: 07-27-2023 Tobacco smoking status Ex-smoker (finding) [facility] Tobacco smoking status Never [facility] Start: 11-27-2023 End: 10-09-2024 Sex Assigned At Male [facility] Start: 1940 Sex Assigned At Male F [facility] History of tobacco use Current smoker [facility] Work Phone: History of tobacco use Cigarette Smoker [facility] Work Phone: Start: 07-27-2023 End: 11-27-2023 Tobacco use and exposure Smokeless tobacco non-user [facility] Work Phone: Start: 11-27-2023 End: 10-22-2024 Alcoholic beverage intake Lifetime non-drinker (finding) [facility] Work Phone: Start: 1940 [facility] Work Phone: Start: 11-17-2023 End: 08-20-2024 Exposure to SARS-CoV-2 (event) Not sure [facility] Start: 07-27-2023 Alcohol Comment caffeine 1-2 cups/day [facility] NEGATED: Highlighted rowStart: NINF History of tobacco use Passive smoker [facility] Functional Status Date Assessment Result Facility 01-19-2024 Functional Status N/A [facility] 07-18-2023 Functional Status N/A [facility] 03-20-2023 Functional Status N/A [facility] Clinical Notes 03-20-2023 to 03-18-2025 Radha Montes MD - 10/22/2024 11:30 AM Jaki Montes MD - 10/09/2024 10:00 AM Jaki Montes MD - 09/17/2024 11:15 AM Jaki Montes MD - 09/10/2024 1:45 PM ESTPatient Instructions Note Date & Type Note Facility 03-18-2025 Note Subjective Patient ID: Travis Coburn is [...] good health overall and is able to continue to participate in his daily activities including golf [...] eyes and age-related nuclear cataract of both eyes. He has a history of mouth sores [...] arthropathy (CMS/HCC) 2. PMR (polymyalgia rheumatica) 3. detention 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 CBC and differential Comprehensive metabolic panel 4. 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 systemic steroid user DEXA bone density Follow-up in 6 months for routine evaluation Philippe Jesus, MS4 [facility] 03/18/2025 As the teaching physician, I have personally performed or re-performed the history of the present illness, physical exam, and medical decision-making activities of the encounter and verified the medical student's documentation. I made pertinent changes as necessary to ensure accurate documentation, Luis Daniel Brunner MD [facility] 10-22-2024 History of Present illness Narrative Images from the original note were not included. Suture Removal Patient here for suture removal: No complaints of redness, drainage or swelling at site, compliant with wound care. Location: right upper back Procedure Performed: Excision Date of Procedure: 10/09/2024 Medications: none All pertinent medical history, medications, and allergies were reviewed. General Exam: alert, oriented to person, place, and time, normal affect, well appearing Unaccompanied A focused exam completed based on patient reported problems, see below: Skin Exam 1. ENCOUNTER FOR REMOVAL OF SUTURES Right Upper Back Sutures are intact, Skin edges are well-approximated, Mild erythema along incision line, Crusting noted along incision line Suture Removal: Procedure: Sutures were removed without difficulty. Tincture of Benzoin was applied around site in preparation of steri-strips. Steri-strips were applied Post-Procedure instructions: Instructed to discontinue wound care., Instructed to keep steri strips on for at least 5-7 days., Pathology results discussed. Next Visit: as scheduled documented in this encounter [facility] 10-09-2024 History of Present illness Narrative Images from the original note were not included. Subjective Travis Coburn is a 83 y.o. male who presents for the following: excision Location: Right upper back Diagnosis: Epidermal inclusion cyst Pre-Op Checklist: History of pacemaker/defibrillator: No History of joint replacement in the past 2 years: No History of HIV/Hepatitis B/Hepatitis C: No Latex allergy: No Is the patient currently on a blood thinner? No. All pertinent medical history, medications, and allergies were reviewed. Surgical assistants: Merrick Mehta LPN and Medardo Chavira MA Objective Well appearing patient in no apparent distress; mood and affect are within normal limits. 1. Epidermal inclusion cyst Right Upper Back 1.5 x 1.5 cm erythematous, subcutaneous nodule Skin excision - Right Upper Back Lesion length (cm): 1.5 Lesion width (cm): [...] 9 ml Estimated blood loss: 1 ml Skin repair - Right Upper Back Complexity: Intermediate Final length (cm): 2.8 Reason [...] uncontrollable bleeding, or complications. Dressing type: bandage Specimen A - Dermatopathology exam Differential Diagnosis: EIC Check Margins: No Size of lesion: 1.5 x 1.5 cm 2. Other specified erythematous conditions Follow up: 14 days for s/r documented in this encounter [facility] 09-17-2024 History of Present illness Narrative Images [...] (2) Left Upper Back, Right Upper Back Haskins and brown stuck on verrucous scaly papule [...] limited to risks of scarring, darker or weigher and grader pigmentary changes, recurrence, incomplete removal and infection. [...] 10/23/2024 EIC excision documented in this encounter [facility] 09-10-2024 History of Present illness Narrative Images [...] Account Name: [place] NPI: Radha Montes [id number] Next Visit: 1 week S/R and follow up documented in this encounter [facility] 09-10-2024 Note Pt called and notified [facility] 09-10-2024 Note Subjective Patient ID: Travis Coburn [...] visit. He is looking forward to another gol[employer]traBiofuelsg season. He follows with orthopedics for Dupuytren's [...] PMR (polymyalgia rheum (more content not included)... [facility] 08-20-2024 Evaluation + Plan note Associated Problem(s): BMI 35.0-35.9,adult Reviewed the merits of healthy lifestyle choices on overall cardiovascular health. [facility] Work Phone: 08-20-2024 Evaluation + Plan note Associated Problem(s): Hyperlipidemia Low intensity statin On highest tolerated dose [facility] Work Phone: 08-20-2024 Miscellaneous Notes Associated Problem(s): [...] TTE and holter. documented in this encounter [facility] Work Phone: 08-20-2024 Evaluation + Plan note Associated Problem(s): Cardiomyopathy September 2017 LVEF 45 to 50% TTE September 2017 LVEF 45-50% cardiac cath December 2021 LVEF 53% MPI 2024 TTE LVEF 50-55% No WMA AV [id number] [facility] Work Phone: 08-20-2024 Evaluation + Plan note Associated Problem(s): Coronary artery disease September 2017 cardiac cath RCA 50% No left system disease LVEF 45-50% Jul 2024 MPI: no ischemia, no infarct. EF 57% [facility] Work Phone: 08-20-2024 Evaluation + Plan note Associated Problem(s): Benign essential hypertension optimal in office Optimal at time of stress test [facility] Work Phone: 08-20-2024 Evaluation + Plan note Associated Problem(s): Short of breath on exertion Jul 2024: add-on due to concerns of progressive worsening dyspnea on exertion. Favorable cardiac testing including MPI, TTE and holter. [facility] Work Phone: 08-20-2024 History of Present illness [...] Dr. Timmons as scheduled Fatou Cummins MSN, VP STRATEGIC PARTNERSHIPS-DIFFERENTIAL SPECIALIST, PMHNP-[facility] [place], [place] Please excuse any errors in grammar or translation related to this dictation. Voice recognition software was utilized to prepare this document. documented in this encounter [facility] Work Phone: 08-20-2024 Instructions GARRICK Ortega - [...] Timmons as scheduled documented in this encounter [facility] Work Phone: 07-26-2024 History of Present illness Narrative Images from the original note were not included. Travis Coburn is a 83 y.o. male presents with chief complaint of right hand Dupuytren's. HPI: Travis returns here today once again for evaluation of his right hand. He has had some ongoing difficulty. He was referred by his control clerk auditing to Dr. Canales in [place]. He did review my information and did [...] ELBOW ARTHROSCOPY W/ ARTHROTOMY 2001 HEART CATH 2017 HEMORRHOID SURGERY 2011 KNEE ARTHROSCOPY W/ ARTHROTOMY 2007 NASAL RECONSTRUCTION 05/31/2019 nasal wound with rotational [...] Not at risk (02/15/2024) Received from [facility] PHQ-2 Patient Health Questionnaire-2 Score: 0 REVIEW [...] sent to Dr. Navarrete. Cosigned by Cj Bertrand DO at 07/29/2024 11:34 AM EST documented in this encounter [facility] 07-23-2024 History of Present illness Narrative Images [...] limited to risks of scarring, darker or weigher and grader pigmentary changes, recurrence, incomplete removal and infection. [...] Seborrheic keratosis, inflamed Right Shoulder - Posterior Haskins and brown stuck on verrucous scaly papule [...] limited to risks of scarring, darker or weigher and grader pigmentary changes, recurrence, incomplete removal and infection. [...] year skin exam documented in this encounter [facility] 07-23-2024 Evaluation + Plan note Associated Problem(s): Fatigue Presents today as an add-on for progressive worsening fatigability and change in exercise capacity and functional tolerance [facility] Work Phone: 07-23-2024 Evaluation + Plan note Associated Problem(s): Sleep apnea Remains compliant with CPAP [facility] Work Phone: 07-23-2024 Evaluation + Plan note Associated Problem(s): Cardiac and Vasculature October 2022 Holter monitor 1.2% PVC burden [facility] Work Phone: 07-23-2024 Evaluation + Plan note Associated Problem(s): Cardiomyopathy September 2017 LVEF 45 to 50% TTE September 2017 LVEF 45-50% cardiac cath December 2021 LVEF 53% MPI [facility] Work Phone: 07-23-2024 Miscellaneous Notes Associated Problem(s): [...] Optimal in office documented in this encounter [facility] Work Phone: 07-23-2024 Evaluation + Plan note Associated Problem(s): Short of breath on exertion Presents today as an add-on due to concerns of progressive worsening dyspnea on exertion [facility] Work Phone: 07-23-2024 Evaluation + Plan note Associated Problem(s): Hyperlipidemia Low intensity statin On highest tolerated dose [facility] Work Phone: 07-23-2024 Evaluation + Plan note Associated Problem(s): Coronary artery disease September 2017 cardiac cath RCA 50% No left system disease LVEF 45-50% December 2021 MPI no ischemia, no infarct. LVEF 53%. [facility] Work Phone: 07-23-2024 Evaluation + Plan note Associated Problem(s): Benign essential hypertension Optimal in office [facility] Work Phone: 07-23-2024 History of Present illness [...] contact the office if new symptoms arise. PHOTO ENGRAVER after testing Fatou Cummins MSN, VP [employer]NERSHIPS-DIFFERENTIAL SPECIALIST, PMHNP-[facility] [place], [place] Please excuse any errors in grammar or translation related to this dictation. Voice recognition software was utilized to prepare this document. documented in this encounter [facility] Work Phone: 07-23-2024 Instructions GARRICK Ortega - [...] contact the office if new symptoms arise. PHOTO ENGRAVER after testing documented in this encounter [facility] Work Phone: 07-11-2024 History of Present illness [...] skin eruption Head - Anterior (Face), Scalp Haskins patches and plaques. Favoring robust reaction to [...] scheduled with EP documented in this encounter [facility] 06-25-2024 Note Right Eye Quality was good. Scan locations included subfoveal. Progression has been stable. Findings include normal observations. Left Eye Quality was good. Scan locations included subfoveal. Progression has been stable. Findings include normal observations. Notes Good scan with normal appearance [facility] 06-25-2024 History of Present illness Narrative Images from the original note were not included. Assessment/Plan Diagnoses and all orders for this visit: Type 2 diabetes mellitus without complication, with long-term current use of insulin ([facility]) - Diabetes Mellitus without sign [...] scrubs were recommended. documented in this encounter [facility] 06-10-2024 History of Present illness Narrative Travis Coburn [id number] 06/05/24 Subjective: 05/07: visit one was with [employer] SALES REPRESENTATIVE Will refer back to Moira after reevaluation [...] psoriatic arthritis Vision troubles they go funny, cloud security architect 3 times last year they say its [...] Director Vestibular Rehabilitation documented in this encounter [facility] 05-22-2024 History of Present illness Narrative Travis Coburn [id number] 05/22/24 Visit Number: 6 Supervised Time: 60' [...] 1:53 PM EST documented in this encounter [facility] 05-07-2024 History of Present illness Narrative Travis Coburn [id number] 05/07/24 Subjective: 05/07: 5th visit. See flow [...] psoriatic arthritis Vision troubles they go funny, cloud security architect 3 times last year they say its [...] Director Vestibular Rehabilitation documented in this encounter [facility] 04-23-2024 History of Present illness Narrative Travis [place] [id number] 04/21/24 Subjective: 83 yom sent to PT [...] psoriatic arthritis Vision troubles they go funny, cloud security architect 3 times last year they say its [...] Director Vestibular Rehabilitation documented in this encounter [facility] 04-17-2024 Note Comprehensive Care [facility] Patient: Travis Coburn; 83 y.o. Visit date: 04/17/24 Reason for today's visit: Follow up for CKD stage 3 and Hypertension SUBJECTIVE: BACKGROUND: Travis Coburn is a 83 y.o. male has a past medical history of Diabetes mellitus ([facility]), Hypertension, Polymyalgia rheumatica ([facility]), and Psoriatic arthritis ([facility]). Patient has history of Type [...] 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 10 mg once weekly by his control clerk auditing for polymyalgia rheumatica Blood pressure & heart [...] Iron studies: Lab (more content not included)... [facility] 04-02-2024 History of Present illness Narrative Travis [place] [id number] 03/25/24 Subjective: 83 yom sent to PT [...] psoriatic arthritis Vision troubles they go funny, cloud security architect 3 times last year they say its [...] Director Vestibular Rehabilitation documented in this encounter [facility] 03-18-2024 History of Present illness Narrative Travis Coburn [id number] 03/17/24 Subjective: 83 yom sent to PT [...] psoriatic arthritis Vision troubles they go funny, cloud security architect 3 times last year they say its [...] Director Vestibular Rehabilitation documented in this encounter [facility] 03-08-2024 History of Present illness Narrative Travis Coburn [id number] 03/06/24 Subjective: 83 yom sent to PT [...] psoriatic arthritis Vision troubles they go funny, cloud security architect 3 times last year they say its [...] Director Vestibular Rehabilitation documented in this encounter [facility] 01-19-2024 Hospital Discharge instructions Patient Education 01/19/2024 [...] urethra. Follow these instructions at home: Take [id number] and prescription medicines only as told by [...] provider. Document Revised: 01/12/2022 Document Reviewed: 01/12/2022 [employer] Patient Education 2022 [employer]. Follow Up Care 03/20/2023 15:42:16 With:MIRIAN TURNER, Nguyễn Peter, URL Address: [address] [place], [place] [id number]- When: Unknown [facility] 11-27-2023 History of Present illness Narrative Subjective [...] Rfl: Assessment/Plan 1. 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 No recurrence of [...] discussion and plan. documented in this encounter [facility] Work Phone: 11-27-2023 Instructions Ban Lisa [...] instructions on exercise. documented in this encounter [facility] Work Phone: 07-18-2023 Note Chief Complaint consultation for skin [...] smoker, quit more (more content not included)... [facility] Comment on above: Result Comment: Elec tronically Signed By: MAXX TURNER, Shaquille Steele\Date and Time Signed: 07/18/23 14:37 EST 03-20-2023 [...] urethra. Follow these instructions at home: Take [id number] and prescription medicines only as told by [...] provider. Document Revised: 01/12/2022 Document Reviewed: 01/12/2022 [employer] Patient Education 2022 [employer]. Follow Up Care 08/23/2021 11:50:10 With:Nguyễn VELA MD, URL Address: [facility] [address], [place] [address] [phone] When:Within 6 Month(s) [facility] Evaluation + Plan note Future Appointments Appointment Date:09/18/2023 12:45:00 PM Scheduled Provider:Nguyễn VELA MD Location:[facility] Appointment Type:URO Office Visit [facility] Evaluation + Plan note Future Appointments Appointment Date:08/22/2023 01:40:00 PM Scheduled Provider:Shaquille LILLY [facility] Type: Procedure 30 Appointment Date:09/18/2023 12:45:00 PM Scheduled Provider:Nguyễn EVLA MD Location:[facility] Appointment Type:URO Office Visit General Surgery [place] Evaluation + Plan note Future Appointments Appointment Date:09/01/2023 01:40:00 PM Scheduled Provider:Shaquille LILLY MD Location: [facility] Appointment Type: Established 15 Appointment Date:09/18/2023 12:45:00 PM Scheduled Provider:Nguyễn VELA MD [facility] Appointment Type:URO Office Visit General Surgery [place] Evaluation + Plan note Future Appointments Appointment Date:09/13/2023 03:00:00 PM Scheduled Provider:Shaquille LILLY MD Location: [facility] Appointment Type: Established 15 Appointment Date:09/18/2023 12:45:00 PM Scheduled Provider:Nguyễn VELA MD Location:[facility] [place] Appointment Type:URO Office Visit General Surgery [place] Evaluation + Plan note Future Appointments Appointment Date:11/27/2023 11:30:00 AM Scheduled Provider:Nguyễn VELA MD Location:[facility] Appointment Type:URO Office Visit General Surgery [place] Evaluation note No assessment inform ation available [facility] Work Phone: Evaluation note Diagnosis 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- Primary Benign essential hypertension Essential hypertension, benign Mixed hyperlipidemia Former cigarette smoker Personal history of tobacco use, presenting hazards to health documented in this encounter [facility] Work Phone: Evaluation note* Diagnosis Cervicalgia- [...] complication, with long-term current use of insulin ([facility])- Primary Early dry stage nonexudative [...] benign Mixed hyperlipidemia 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 Obstructive sleep apnea syndrome Obstructive sleep apnea (adult) (pediatric) Fatigue, unspecified type Dyspnea on exertion Other dyspnea and respiratory abnormality Cardiomyopathy, unspecified type (Multi) documented in this encounter [facility] Work Phone: Evaluation note* Diagnosis Other rosacea- Primary Angioma of skin Lentigines Seborrheic keratosis Other seborrheic dermatitis Epidermal inclusion cyst Sebaceous cyst History of basal cell carcinoma Personal history of other malignant neoplasm of skin Actinic keratosis Seborrheic keratosis, inflamed documented in this encounter [facility]* Diagnosis Short of breath on exertion- Primary Benign essential hypertension Essential hypertension, benign Mixed hyperlipidemia 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 Obstructive sleep apnea syndrome Obstructive sleep apnea (adult) (pediatric) Fatigue, unspecified type Dyspnea on exertion Other dyspnea and respiratory abnormality Cardiomyopathy, unspecified type (Multi) Short of breath on exertion Benign essential hypertension Essential hypertension, benign documented in this encounter [facility] Work Phone: Evaluation note* Diagnosis Right hand pain- Primary Pain in soft tissues of limb Primary osteoarthritis of right wrist Dupuytren's contracture Contracture of palmar fascia documented in this encounter [facility]* Diagnosis Unilateral vestibular weakness, right- Primary Cervicalgia Balance disorder documented in this encounter [facility]* Diagnosis Short of breath on exertion- Primary Benign essential hypertension Essential hypertension, benign Mixed hyperlipidemia 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 Obstructive sleep apnea syndrome Obstructive sleep apnea (adult) (pediatric) Fatigue, unspecified type Dyspnea on exertion Other dyspnea and respiratory abnormality Cardiomyopathy, unspecified type (Multi) Short of breath on exertion Fatigue, unspecified type documented in this encounter [facility] Work Phone: Evaluation note* Diagnosis Short of breath on exertion- Primary Benign essential hypertension Essential hypertension, benign Mixed hyperlipidemia 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 Obstructive sleep apnea syndrome Obstructive sleep apnea (adult) (pediatric) Fatigue, unspecified type Dyspnea on exertion Other dyspnea and respiratory abnormality Cardiomyopathy, unspecified type (Multi) Benign essential hypertension- Primary Essential hypertension, benign Short of breath on exertion 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 Mixed hyperlipidemia Cardiomyopathy, unspecified type (Multi) BMI 35.0-35.9,adult Obstructive sleep apnea syndrome Obstructive sleep apnea (adult) (pediatric) documented in this encounter [facility] Work Phone: Evaluation note* Diagnosis Other seborrheic dermatitis- Primary Rash and other nonspecific skin eruption Impetigo documented in this encounter [facility]* Diagnosis EIC (epidermal inclusion cyst)- Primary Sebaceous cyst Encounter for removal of sutures Seborrheic keratosis, inflamed Folliculitis Other specified disease of hair and hair follicles [facility] Diagnosis Epidermal inclusion cyst- Primary Sebaceous cyst Other specified erythematous conditions documented in this encounter [facility]* Diagnosis Encounter for removal of sutures- Primary [facility] [...] will be reviewed at his next visit. -[facility]-Sabine Garcia DO Work Phone: History of Present illness [...] he requires adjustment in equipment or settings. Mauricelaniclemencia touched on the merits of diet exercise and weight loss and he understands her recommendations. * He will follow-up in the near future when stress testing is done. He also apparently had a Holter monitor last week and we are not in receipt of that and this too will be reviewed at his next visit. [facility] Work Phone: History of Present illness NarrativeCoronaryPatient [...] recommendation and will attempt to implement our recommendations.[facility] Work Phone: Hospital course Narrative No data available for this section [facility] Hospital Discharge instructions No data available for this section General Surgery [place] Progress note No data available for this section [facility] reason for referral (narrative)* Consultation (Routine) - Authorized Specialty Diagnoses / Procedures Referred By Contanthony t Referred To Contact Cardiology Diagnoses 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 Procedures Follow Up In Cardiology Johnnie Deras MD [address] [facility] [address], [address] [address] Johnnie Deras MD [address] [facility] [address], [address] [place] [address] Referral ID Status Reason Start Date Expiration Date V isits Requested Visits Authorized [id number] Authorized 11/27/2023 11/26/2024 1 1 [facility] Work Phone: Reason for visit Narrative* Rehabilitation - Outpatient (Routine) - Authorized Specialty Diagnoses / Procedures Referred By Contac t Referred To Contact Physical Therapy Diagnoses Benign neoplasm of cranial nerves (CMS/HCC) Dizziness and giddiness Procedures VT PHYSICAL THERAPY EVALUATION LOW COMPLEX [place] [address] [place] [address] Phone: tel: Shaquille Valencia, PT [address] [place] [address] Phone: tel: fax: Referral ID Status Reason Start Date Expiration Date V isits Requested Visits Authorized [id number] Authorized 03/06/2024 09/02/2024 25 29 [facility] N[facility]* Rehabilitation - Outpatient (Routine) - Authorized Specialty Diagnoses / Procedures Referred By Contac t Referred To Contact Physical Therapy Diagnoses Benign neoplasm of cranial nerves (CMS/HCC) Dizziness and giddiness Procedures VT PHYSICAL THERAPY EVALUATION LOW COMPLEX [place] [address] [place] [address] Phone: tel: Shaquille Valencia, PT [address] [place] [address] Phone: tel: fax: Referral ID Status Reason Start Date Expiration Date V isits Requested Visits Authorized [id number] Authorized 03/06/2024 07/09/2024 25 29 [facility] N[facility]ative* Rehabilitation - Outpatient (Routine) - Authorized Specialty Diagnoses / Procedures [facility] Referred To Contact Physical Therapy Diagnoses Benign neoplasm of cranial nerves (CMS/HCC) Dizziness and giddiness Procedures VT PHYSICAL THERAPY EVALUATION LOW COMPLEX [place] [address] [place] [address] Phone: tel: Shaquille Valencia, PT [address] [place] [address] Phone: tel: fax: Referral ID Status Reason Start Date Expiration Date Visits Requested Visits Authorized [id number] Authorized Consult and Treat 07/17/2024 11/19/2024 1 23 [facility] N[facility]ative* CV Imaging (Routine) - Authorized Specialty Diagnoses / Procedures Referred By [facility] Referred To Contact Cardiology Diagnoses Short of breath on exertion Benign essential hypertension Procedures Transthoracic Echo Complete VT ECHO TTHRC R-T 2D W/WOM-MODE COMPL SPEC&COLR D Fatou Cummins, VP [employer]NERSHIPS-DIFFERENTIAL SPECIALIST [address] [facility] [address] [place] [address] Phone: tel: fax: Referral ID Status Reason Start Date Expiration Date Visits Requested Visits Authorized [id number] Authorized Perform Procedure 07/23/2024 07/23/2025 1 1 [facility] Work Phone: Reason for visit Narrative* Rehabilitation - Outpatient (Routine) - Authorized Specialty Diagnoses / Procedures [facility] Referred To Contact Physical Therapy Diagnoses Benign neoplasm of cranial nerves (CMS/HCC) Dizziness and giddiness Procedures VT PHYSICAL THERAPY EVALUATION LOW COMPLEX [address] [place] [address] [place] [address] Phone: tel: fax: Shaquille Valencia, PT [address] [place] [address] Phone: tel: fax: Referral ID Status Reason Start Date Expiration Date Visits Requested Visits Authorized [id number] Authorized Consult and Treat 07/17/2024 07/09/2025 1 30 [facility] Narrative* Cardiac Stress Testing (Routine) - Authorized Specialty Diagnoses / Procedures Referred By Contac t Referred To Contact Radiology Diagnoses Short of breath on exertion Fatigue, unspecified type Procedures Nuclear Stress Test CHG MYOCARDIAL SPECT MULTIPLE STUDIES Fatou Cummnis, VP [employer]-DIFFERENTIAL SPECIALIST [address] [facility] [address] [place] [address] Phone: tel: fax: Referral ID Status Reason Start Date Expiration Date V isits Requested Visits Authorized [id number] Authorized 07/23/2024 07/23/2025 5 5 [facility] Work Phone: Reason for visit Narrative* Cardiac Stress Testing (Routine) - Authorized Specialty Diagnoses / Procedures Referred By Contac t Referred To Contact Radiology Diagnoses Short of breath on exertion Fatigue, unspecified type Procedures Nuclear Stress Test CHG MYOCARDIAL SPECT MULTIPLE STUDIES Fatou Cummins, VP [employer]NER[employer]-DIFFERENTIAL SPECIALIST [address] [facility] [address], [address] [address] Phone: tel: fax: Referral ID Status Reason Start Date Expiration Date V isits Requested Visits Authorized [id number] Authorized 07/23/2024 07/23/2025 5 5 [facility] Work Phone: Summary Purpose Family History No [...] section and content) DATE CREATED AUTHOR 11/30/2021 [facility] DATE CREATED AUTHOR AUTHOR'S ORGANIZ ATION 12/31/2021 [facility] DATE CREATED AUTHOR AUTHOR'S ORGANIZ ATION 01/01/2022 [facility] DATE CREATED AUTHOR AUTHOR'S ORGANIZ ATION 10/29/2022 [facility] DATE CREATED AUTHOR AUTHOR'S ORGANIZ ATION 10/30/2022 [facility] DATE CREATED AUTHOR AUTHOR'S ORGANIZ ATION 04/12/2023 [facility] DATE CREATED AUTHOR AUTHOR'S ORGANIZ ATION 04/14/2023 [facility] DATE CREATED AUTHOR AUTHOR'S ORGANIZ ATION 08/25/2023 [facility] DATE CREATED AUTHOR AUTHOR'S ORGANIZ ATION 11/14/2023 [facility] DATE CREATED AUTHOR AUTHOR'S ORGANIZ ATION 08/12/2024 [facility] DATE CREATED AUTHOR AUTHOR'S ORGANIZ ATION 10/23/2024 [facility] DATE CREATED AUTHOR AUTHOR'S ORGANIZ ATION 10/24/2024 [facility] EPIC DATE CREATED AUTHOR AUTHOR'S ORGANIZ ATION 03/09/2025 [facility] DATE CREATED AUTHOR AUTHOR'S ORGANIZ ATION 03/20/2025 [facility] Reason for Visit (unrecogniz ed section and content) Reason Comments Annual Exam 1yr Reason Comments Macular Degeneration Cataract Diabetic Eye Exam Specialty Diagnoses / Procedures Referred By Aimee t Referred To Contact Physical Therapy Diagnoses Benign neoplasm of cranial nerves (CMS/HCC) Dizziness and giddiness Procedures VT PHYSICAL THERAPY EVALUATION LOW COMPLEX [address] [place] [address] [place] [address] Shaquille Valencia, PT [address] [place] [address] Referral ID Status Reason Start Date Expiration Date V isits Requested Visits Authorized [id number] Authorized 03/06/2024 09/02/2024 25 25 Referral ID Status Reason Start Date Expiration Date V isits Requested Visits Authorized [id number] Authorized 03/06/2024 09/02/2024 25 29 Reason Comments Rash Reason Comments Follow-up SOB HTN / MT Reason Comments Skin Check Suspicious Skin Lesion Follow-up Reason Comments Pain Reason Comments Results Specialty Diagnoses / Procedures Referred By Contac t Referred To Contact Cardiology Diagnoses Short of breath on exertion Procedures Follow Up In Cardiology Fatou Cummins, VP [employer]-DIFFERENTIAL SPECIALIST [address] [facility] [address] [place] [address] Phone: tel: fax: Referral ID Status Reason Start Date Expiration Date V isits Requested Visits Authorized [id number] Authorized 07/23/2024 07/23/2025 1 1 Reason Comments [...] August 22, 2023 End: August 22, 2023 Mass Spectroscopist Relationship Specialty Start Date End Date Mayra Navarrete MD [address] [place] [address] PCP - General 12/08/21 Mass Spectroscopist Relationship Specialty Start Date End Date Mayra Navarrete MD [address] [place] [address] PCP - General Family Medicine 10/20/23 Mass Spectroscopist Relationship Specialty Start Date End Date Mayra Navarrete MD [address] [place] [place] [address] PCP - General Family Medicine 10/20/23 Mass Spectroscopist Relationship Specialty Start Date End Date Mayra Navarrete MD [address] [place] [place] [address] PCP - General Family Medicine 10/20/23 Mass Spectroscopist Relationship Specialty Start Date End Date Mayra Navarrete MD [address] [place] [facility] [address] PCP - General Family Medicine 10/20/23 Mass Spectroscopist Relationship Specialty Start Date End Date Mayra Navarrete MD [address] [place] [place] [address] PCP - General Family Medicine 10/20/23 Mass Spectroscopist Relationship Specialty Start Date End Date Mayra Navarrete MD [address] [place] [address] PCP - General Family Medicine 10/20/23 Mass Spectroscopist Relationship Specialty Start Date End Date Mayra Navarrete MD [address] [place] [place] [address] PCP - General Family Medicine 10/20/23 Mass Spectroscopist Relationship Specialty Start Date End Date Mayra Navarrete MD [address] [place] [address] PCP - General Family Medicine 10/20/23 Mass Spectroscopist Relationship Specialty Start Date End Date Mayra Navarrete MD [address] [place] [address] PCP - General Family Medicine 10/20/23 Mass Spectroscopist Relationship Specialty Start Date End Date Mayra Navarrete MD [address] [place] [address] PCP - General Family Medicine 10/20/23 Mass Spectroscopist Relationship Specialty Start Date End Date Mayra Navarrete MD [address] [place] [address] PCP - General 12/08/21 Mass Spectroscopist Relationship Specialty Start Date End Date Mayra Navarrete MD [address] [place] [address] PCP - General Family Medicine 10/20/23 Mass Spectroscopist Relationship Specialty Start Date End Date Mayra Navarrete MD [address] [place] [address] PCP - General 12/08/21 Mass Spectroscopist Relationship Specialty Start Date End Date Mayra Navarrete MD [address] [place] [address] PCP - General Family Medicine 10/20/23 Mass Spectroscopist Relationship Specialty Start Date End Date Mayra Navarrete MD [address] [place] [address] PCP - General Family Medicine 10/20/23 Mass Spectroscopist Relationship Specialty Start Date End Date Mayra Navarrete MD [address] [facility] [address] PCP - General 12/08/21 Mass Spectroscopist Relationship Specialty Start Date End Date Mayra Navarrete MD [address] [place] [address] PCP - General 12/08/21 Mass Spectroscopist Relationship Specialty Start Date End Date Mayra Navarrete MD [address] [place] [address] PCP - General 12/08/21 Mass Spectroscopist Relationship Specialty Start Date End Date Mayra Navarrete MD [address] [place] [address] PCP - General 12/08/21 Mass Spectroscopist Relationship Specialty Start Date End Date Mayra Navarrete MD [address] [place] [address] PCP - General 12/08/21 Mass Spectroscopist Relationship Specialty Start Date End Date Mayra Navarrete MD [address] [place] [address] PCP - General Family Medicine 10/20/23 Mass Spectroscopist Relationship Specialty Start Date End Date Mayra Navarrete MD [address] [place] [address] PCP - General Family Medicine 10/20/23 Mass Spectroscopist Relationship Specialty Start Date End Date Mayra Navarrete MD [address] [place] [address] PCP - General Family Medicine 10/20/23 Mass Spectroscopist Relationship Specialty Start Date End Date Mayra Navarrete MD [address] [place] [address] PCP - General Family Medicine 10/20/23 Mass Spectroscopist Relationship Specialty Start Date End Date Mayra Navarrete MD [address] [place] [address] PCP - General 12/08/21 Goals (unrecognized section [...] BE BASED ON THE PRIMARY CLINICAL RECORDS. [employer] provides no warranty or guarantee of the accuracy or completeness of information in this document.
== END 2025-03-20 10:51 | disposition home or self-care (01) ==
LOC: RAD 10:50
PROVIDERS: PCP Family Medicine
DX: M81.0 Age-related osteoporosis without current pathological fracture (principal)
CPT/HCPCS: 77080

== ENCOUNTER 2025-06-27 09:43 | Outpatient (OUT) | payer MEDICARE, OTHER, SELFPAY ==
--- OUTSIDE RECORDS SUMMARY | 2025-06-25 11:00 | XMS_ITS | Encounter Summary ---
Author Organization [facility] Address [address] [facility] [place] [address] Care Team Providers Care Rodding Machine Tender Name Role Phone Roman David MD Primary Care Provider [phone] Reason for Visit * ReasonCommentsDiabetic Eye Exam Encounter Details DateTypeDepartmentCare Team (Latest Contact Info)Iktwhdzjisq61/17/2025 11:00 AM ESTOffice Visit [facility] [address] [place] [address] Tariq Perez DO [address] [place] [address] 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 degeneration of both eyes (Primary Dx); Age-related nuclear cataract of both eyes; Type 2 diabetes mellitus without complication, with long-term current use of insulin (HCC); Dry eyes; Blepharitis of upper and lower eyelids of both eyes, unspecified type Social History Tobacco UseTypesPacks/DayYears UsedDateSmoking Tobacco: FormerCigarettesPassive Smoke Exposure: NeverSmokeless Tobacco: NeverAlcohol UseStandard Drinks/Week CommentsNever0 (1 standard drink = 0.6 oz pure alcohol)caffeine 1-2 cups/daySex and Gender InformationValueDate RecordedSex Assigned at BirthNot on fileLegal WqnBvbi5209/21/2022 6:46 PM EDTGender IdentityNot on fileSexual OrientationNot on filedocumented as of this encounter Progress Notes * Tariq Perez DO - 06/25/2025 11:00 AM EST Images from the original note were not included. Assessment/Plan Diagnoses and all orders for this visit: Type 2 diabetes mellitus without complication, with long-term current use of insulin ([facility]) - Diabetes Mellitus without sign of diabetic retinopathy on dilated retinal examination today OU: Discussed the pathophysiology of diabetes and its effect on the eye. Stressed the importance of strong glucose control. Advised of importance of at least yearly dilated examinations, but to contact us i mmediately for any problems or concerns. Early dry [...] scrubs were recommended. documented in this encounter Plan of Treatment DateTypeDepartmentCare Team (Latest Contact Info)Uvylszsokhz51/14/2026 1:00 PM ESTOffice Visit [facility] [address] [place] [address] Yudy Montes MD [address] [place] [address] 07/01/2026 10:30 AM ESTOffice Visit [facility] [address] [place] [phone] Tariq Perez DO [address] [place] [address] documented as of this encounter Procedures Procedure NamePriorityDate/TimeAssociated DiagnosisCommentsOCT, RETINA - OU - BOTH UPBJDiyqejh33/17/2025 12:10 PM EST 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 degeneration of both eyes documented in this encounter Results * OCT, Retina - OU - Both Eyes (06/25/2025 12:10 PM EST)Anatomical Region LateralityModalityHeadOptical Coherence Tomography Narrative 06/25/2025 12:10 PM EST Right Eye Quality was good. Scan locations included subfoveal. Progression has been stable. Findings include normal observations. Left Eye Quality was good. Scan locations included subfoveal. Progression has been stable. Findings include normal observations. Notes Good scan with normal appearance Authorizing ProviderResult TypeResult StatusJonatniki Perez DOOPHTH TOMOGRAPHY Final Result documented in this encounter Visit Diagnoses Diagnosis 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 degeneration of both eyes- Primary Age-related nuclear cataract of both eyes Type 2 diabetes mellitus without complication, with long-term current use of insulin ([facility]) Dry eyes Unspecified tear film insufficiency Blepharitis of upper and lower eyelids of both eyes, unspecified type documented in this encounter Care Teams Team MemberRelationshipSpecialtyStart DateEnd Roman David MD [address] [place] [address] PCP - GeneralFamily Medicine10/20/23documented as of this encounter
--- OUTSIDE RECORDS SUMMARY | 2025-06-26 08:45 | XMS_ITS ---
Author Organization [facility] in [place] Address [address] [place] [address] Care Team Providers Care Bulk Coolers Installer Name Role Phone Ruben David Primary Care Provider Allergies Allergen (clinical drug ingredient) Drug/Non Drug Allergy documented on EMR Reaction Allergy Type Onset Date Status Substance with sulfonamide s tructure and antibacterial mechanism of action (substance) Sulfa Antibiotics unknown Drug Allergy ActivePenicillinanaphylaxisDrug AllergyActive REASON FOR VISIT Sore throat- said that he is getting over a cold now, Patient wants his yearly labs done and a yearly appointment today, He also wants a B12 injection Medications Medication SIG (Take, Route, Frequency, Duration) Notes Start Date End Date Status Montelukast Sodium 10 MG TAKE 1 TABLET BY MOUTH EVERY DAY; Duration: 30 ActiveMiraLax 17 GM/SCOOP1 scoop mixed with 8 ounces of fluid Orally Once a day- twice as neededActiveOneTouch Ultra Blue Test -Use one strip in vitro to test glucose daily DX E11.9; Duration: 90 daysActiveOneTouch Delica Plus [id number] - Use 1 lancet to poke finger once daily DX E11.9; Duration: 90 daysActive Methotrexate Sodium 2.5 MGas directed Orally 3 once weeklyActiveGlucometer - (One-Touch Delica Plus) & Lancet Device - tidActiveGlucose Meter Test -Use as directed once daily; Duration: 90 daysDx E11.9ActiveIrbesartan 300 MGTAKE 1 TABLET BY MOUTH EVERY DAY; Duration: 90ActiveIbuprofen 600 MGTAKE 1 TABLET BY MOUTH EVERY 6 HOURS NEEDED FOR MODERATE PAIN FOR 10 DAYS Oral; Duration: 10 daysActiveGlimepiride 2 MGTake 1 tablet Orally every morning and 1/2 tablet at HS; Duration: 90 daysActiveCrestor 5 MG1 tablet Orally Once a dayActiveCPAP Supplies -Mask and TubingActiveFolic Acid 1 MG1 tablet Orally Once a dayActive Doxycycline Monohydrate 100 MG1 capsule Orally bid; Duration: 10 days10/04/2024 ActiveCholecalciferol 125 MCG (5000 UT)as directed OrallyActiveAzithromycin 250 MG2 tabs today then 1 tab Orally daily; Duration: 5 days5Active Clindamycin Phosphate 1 %1 application Externally bid05/30/2024ctiveCPAP -use as directedActiveCoreg 6.25 MG1 tablet with food Orally tid; Duration: 30 days ActiveTriamcinolone Acetonide 0.1 %1 application Externally bid5Active Aspirin 81 MG1 tablet Orally Once a dayActivepredniSONE 2.5 MG1 tablet with food or milk Orally Once a dayActiveAmitriptyline HCl 50 mgTAKE 1 TO 2 TABLETS BY MOUTH EVERY NIGHT; Duration: ActiveCetirizine HCl 10 MGTAKE 1 TABLET BY MOUTH EVERY DAY; Duration: ActivePantoprazole Sodium 40 mgTAKE 1 TABLET BY MOUTH ONCE DAILY; Duration: 90Active Social History Tobacco Use: Social History Observation Description Date Details (start date - stop date) Former Smoker NA - NA Tobacco Use/Smoking Question Answer Notes Patient is a former smoker Vital Signs Weight 238.0 lbs 06/26/2025 Height 69 in 06/26/2025 Blood pressure systolic 134 mm Hg 06/26/20 25 Blood pressure diastolic 86 mm Hg 025 Temperature 97.9 degrees Fahrenheit 06/26/20 25 BMI 35.14 kg/m2 06/26/2025 Encounters Encounter Location Date Provider Diagnosis [facility] [id number] [place] [address] 06/26/2025 Ruben David Acute non-recurrent sinusitis, unspecified location J01.90 ; Hypertension I10 ; Vitamin D deficiency E55.9 ; DM2 (diabetes mellitus, type 2) E11.9 ; Nasal congestion R09.81 and Fatigue R53.83 Assessments Encounter Date Diagnosis (ICD Code) Assessment Notes Treatment Notes Treatment Clinical Notes Section Notes 06/26/2025 Acute non-recurrent sinusitis, unspecified location (ICD-10 - J01.90) Rest and drink more liquids, especially water. You may use a humidifier or vaporizer to help keep the drainage moist. Uybj-kuw-xbkezei Nasal Saline may help the stuffy and runny nose. Use Ibuprofen and or Tylenol as needed for fever, chills, body aches or pain. Children 5 years old should not be given uatk-mre-seomtam cough and cold medications such as guaifenesin and dextromethorphan. If you're over age 5, you may try jbbd-jqj-ajumlys cold medications such as guaifenesin and dextromethorphan, or multi-symptom cold reliever such as Dayquil to help reduce the symptoms. Antibiotics have been pre scribed. You should take these until completed and follow the directions. Antibiotics can sometimescause upset stomach, and in rare cases, serious allergic reactions or serious gastrointestinal problems. If you start having severe abdominal pain, severe vomiting, or bloody diarrhea, you should be r eevaluated by your physician or urgent care immediately. Follow up with your Primary Care Provider or return to clinic if symptoms do not improve within 3-5 days06/26/2025Hypertension (ICD-10 - I10)06/26/2025Vitamin D deficiency (ICD-10 - E55.9)06/26/2025DM2 (diabetes mellitus, type 2) (ICD-10 - E11.9)06/26/2025 Nasal congestion (ICD-10 - R09.81)06/26/2025Fatigue (ICD-10 - R53.83) Plan Of Treatment Medication Medication Name Sig Start Date Stop Date Notes Azithromycin 250 MG 2 tabs today then 1 tab Orally daily; Duration: 5 days 06/26/2025 Treatment Notes Assessment Notes Acute non-recurrent sinusiti s, unspecified location Rest and drink more liquids, especially water. You may use a humidifier or vaporizer to help keep the drainage moist. Rbox-xmd-trcijsg Nasal Saline may help the stuffy and runny nose. Use Ibuprofen and or Tylenol as needed for fever, chills, body aches or pain. Children 5 years old should not be given knqr-xal-wogwjqr cough and cold medications such as guaifenesin and dextromethorphan. If you're over age 5, you may try kvjs-lra-brryqog cold medications such as guaifenesin and dextromethorphan, or multi-symptom cold reliever such as Dayquil to help reduce the symptoms. Antibiotics have been prescribed. You should take these until completed and follow the directions. Antibiotics can sometimes cause upset stomach, and in rare cases, serious allergic reactions or serious gastrointestinal problems. If you start having severe abdominal pain, severe vomiting, or bloody diarrhea, you should be reevaluated by your physician or urgent care immediately. Follow up with your Primary Care Provider or return to clinic if symptoms do not improve within 3-5 days Pending Test Test Name Order Date HEMOGLOBIN A1C (GLYCO) 06/26/2025 LIPID PANEL (CHOL/TRIG/HDL/LDL) 06/26/20 25 URIC ACID 06/26/2025 THYROID PANEL (T4/TSH/FREE T3) 5 PSA, SCREENING 06/26/2025 CMP (COMP MET DOUGLAS) w/eGFR CKD-EPI 2024 CBC WITH DIFF 06/26/2025 Next Appt Details Follow Up: 3-5 days if not i mproving, Reason: Medications Administered Medication Instructions Date of Administration Dosage Notes Cyanocobalamin mL Progress Notes * Travis COBURN GDOB: [birth year] (84 yo M)Acc No.[id number]:06/26/2025 UNLOCKED PROGRESS NOTE Progress Note Patient: Travis SHEIKH :?Roman David ([facility]), MDDOB:1940???Age: 84 Y???Sex:MaleDate:06/26/2025Phone:[phone]:[address], [place], [id number] In:01:39 PM ESTCheck Out:02:35 PM EST Subjective: * Chief Complaints: * 1 . Sore throat- said that he is getting over a cold now. 2. Patient wants his yearly labs done and a yearly appointment today. 3. He also wants a B12 injection. * HPI: ???Sinusitis:? The patient complains of symptoms of sinus infection. The symptoms have been present for 1-2 days. The symptoms are moderate. Symptomatic treatment has included OTC medication. Associated symptoms include headache, facial pain, runny nose, nasal congestion. * ROS: ???Skin:?Rash?denies.?ENT:?Comments?See HPI for details.?Cardiovascular:?Edema?denies.?Palpitations?denies.?Respiratory:?Chest pain?denies.?Cough?denies.?Wheezing denies.?Gastrointestinal:?Abdominal pain?denies.?Nausea?denies.?Vomiting?denies.? * Medical History: H elicobacter pylori [H. pylori] as the cause of diseases classified elsewhere, Irritable bowel syndrome with diarrhea, Overweight, Palpitations, Acute bronchitis, Diabetes mellitus type 2, uncomplicated, COVID-19 virus infection, Sinus arrhythmia, Dupuytren's disease, Psoriatic arthritis, Hereditary and idiopathic neuropathy, unspecified, Carpal tunnel syndrome, bilateral upper limbs, Polymyalgia rheumatica, Vitamin D deficiency, Diabetes mellitus type 2, diet-controlled, TMJ syndrome, Osteoarthritis of knee, Vitreous degeneration, Senile nuclear sclerosis, Pinguecula, unspecified eye, Arcus senilis, unspecified eye, Other migraine, not intractable, without status migrainosus, Irritable bowel syndrome, Hyperuricemia, Hypertriglyceridemia, Anxiety, Hypertension, Sleep apnea, Hiatal hernia, Colitis. * Surgical History: K nee Arthroscopy- Left , Rotator Cuff Surgery- Left , Colonoscopy , Heart Cath , Hemorrhoidectomy , Breast Mass excision , Kyphoplasty- 04/05/23 Dr. Peters . * Hospitalization/Major Diagno stic Procedure: c ompression fracture L1 03/01. * Family History: F ather: , Heart Disease. M other: , Alzheimers. S ister(s): alive, Scleroderma. S on(s): alive. D christian(s): alive. 3 sister(s) . 1 son(s) , 1 daughter(s) - healthy. . Sisters- 2 . * Social History: ???Tobacco Use:?Tobacco Use/Smoking?Patient is a?former smoker * Medications: T aking Amitriptyline HCl 50 mg Tablet TAKE 1 TO 2 TABLETS BY MOUTH EVERY NIGHT , Taking Aspirin 81 MG Tablet Delayed Release 1 tablet Orally Once a day , Taking Cetirizine HCl 10 MG Tablet TAKE 1 TABLET BY MOUTH EVERY DAY , Taking Cholecalciferol 125 MCG (5000 UT) Capsule as directed Orally , Taking Clindamycin Phosphate 1 % Gel 1 application Externally bid , Taking Coreg(Carvedilol) 6.25 MG Tablet 1 tablet with food Orally tid , Taking CPAP - use as directed , Taking CPAP Supplies - - Mask and Tubing , Taking Crestor(Rosuvastatin Calcium) 5 MG Tablet 1 tablet Orally Once a day , Taking Doxycycline Monohydrate 100 MG Capsule 1 capsule Orally bid , Taking Folic Acid 1 MG Tablet 1 tablet Orally Once a day , Taking Glimepiride 2 MG Tablet Take 1 tablet Orally every morning and 1/2 tablet at HS , Taking Glucometer - - (One- Touch Delica Plus) & Lancet Device - tid , Taking Glucose Meter Test(Glucose Blood) - Strip Use as directed once daily , Notes to Pharmacist: Dx E11.9, Taking Ibuprofen 600 MG Tablet TAKE 1 TABLET BY MOUTH EVERY 6 HOURS NEEDED FOR MODERATE PAIN FOR 10 DAYS Oral , Taking Irbesartan 300 MG Tablet TAKE 1 TABLET BY MOUTH EVERY DAY , Taking Methotrexate Sodium 2.5 MG Tablet as directed Orally 3 once weekly , Taking MiraLax(Polyethylene Glycol 3350) 17 GM/SCOOP Powder 1 scoop mixed with 8 ounces of fluid Orally Once a day- twice as needed , Taking Montelukast Sodium 10 MG Tablet TAKE 1 TABLET BY MOUTH EVERY DAY , Taking OneTouch Delica Plus [id number](Lancets) - Miscellaneous Use 1 lancet to poke finger once daily DX E11.9 , Taking OneTouch Ultra Blue Test(Glucose Blood) - Strip Use one strip in vitro to test glucose daily DX E11.9 , Taking Pantoprazole Sodium 40 mg Tablet Delayed Release TAKE 1 TABLET BY MOUTH ONCE DAILY , Taking predniSONE 2.5 MG Tablet 1 tablet with food or milk Orally Once a day , Taking Triamcinolone Acetonide 0.1 % Cream 1 application Externally bid , Discontinued levoFLOXacin 750 MG Tablet 1 tablet Orally Once a day , Medication List reviewed and reconciled with the patient * Allergies: P enicillin: anaphylaxis - Criticality High, Sulfa Antibiotics: unknown - Criticality High. Objective: * Vitals: W t:238.0lbs, Ht: 69 in, BP:134/86mm Hg, Temp:97.9F, BMI:35.14Index, Ht-cm: 175.26 cm, Wt-k.96 kg. * Examination: ???General Examination: ?GENERAL APPEARANCE:? in no acute distress, well developed,well nourished.?ENT:? ear and nose external appearance normal, tympanic membranes clear bilaterally, facial tenderness to palpation over sinuses.?EYES:? pupils equal, round, reactive to light and accomodations.?ORAL CAVITY:? mucosa moist.?NECK:?neck supple, full range of motion, no cervical lymphadenopathy.?LUNGS:?clear to auscultation bilaterally.?CARDIO:? no murmurs, regular rate and rhythm, S1, S2 normal.?ABDOMEN:? soft, nontender , not distended, bowel sounds are active.?SKIN:? no suspicious lesions, warm and dry.?EXTREMITIES:? no clubbing, cyanosis, or edema.?NEUROLOGIC:? nonfocal, motor strength of upper/lower extremities intact , sensory exam intact.? Assessment: * Assessment: 1.?Acute non-recurrent sinusitis, unspecified location - J01.90 (Primary)???2.&# 160;Hypertension - I10???3.?Vitamin D deficiency - E55.9???4. DM2 (diabetes mellitus, type 2) - E11.9???5.?Nasal congestion - R09.81? ?6.?Fatigue - R53.83??? Plan: * Treatment: Start Azithromycin Tablet, 250 MG, 2 tabs today then 1 tab, Orally, daily, 5 days, 6, Refills 0. ? Notes:Rest and drink more liquids, especially water. You may use a humidifier or vaporizer to help keep the drainage moist. Lpbm-pfr-wswgzrl Nasal Saline may help the stuffy and runny nose. Use Ibuprofen and or Tylenol as needed for fever, chills, body aches or pain. Children 5 years old should notbe given zfvd-eus-fqvwylr cough and cold medications such as guaifenesin and dextromethorphan. If you're over age 5, you may try kutf-gil-eplpazl cold medications such as guaifenesin and dextromethorphan, or multi-symptom cold reliever such as Dayquil to help reduce the symptoms. Antibiotics have been prescribed. You should take these until completed and follow the directions. Antibiotics can sometimes cause upset stomach, and in rare cases, serious allergic reactions or serious gastrointestinal problems. If you start having severe abdominal pain, severe vomiting, or bloody diarrhea, you should be reevaluated by your physician or urgent care immediately. Follow up with your Primary Care Provider or return to clinic if symptoms do not improve within 3-5 days??2.?Hypertension?LAB: HEMOGLOBIN A1C (GLYCO) ?LAB: LIPID PANEL (CHOL/TRIG/HDL/LDL) ?LAB: URIC ACID ?LAB: THYROID PANEL (T4/TSH/FREE T3) ?LAB: PSA, SCREENING ?LAB: CMP (COMP MET DOUGLAS) w/eGFR CKD-EPI ?LAB: CBC WITH DIFF3.?Vitamin D deficiency?LAB: HEMOGLOBIN A1C (GLYCO) ?LAB: LIPID PANEL (CHOL/TRIG/HDL/LDL) ?LAB: URIC ACID ?LAB: THYROID PANEL (T4/TSH/FREE T3) ?LAB: PSA, SCREENING ?LAB: CMP (COMP MET DOUGLAS) w/eGFR CKD-EPI ?LAB: CBC WITH DIFF4.?DM2 (diabetes mellitus, type 2)?LAB: HEMOGLOBIN A1C (GLYCO) ?LAB: LIPID PANEL (CHOL/TRIG/HDL/LDL) ?LAB: URIC ACID ?LAB: THYROID PANEL (T4/TSH/FREE T3) ?LAB: PSA, SCREENING ?LAB: CMP (COMP MET DOUGLAS) w/eGFR CKD-EPI ?LAB: CBC WITH DIFF * Therapeutic Injections: Cyanocobalamin : 1 mL (Route: Intramuscular) given by Deedee Sanford SA on right deltoid (Fatigue) * Procedure Codes: J 3420 VITAMIN B-12 < 1000 MCG, 61769 THERAP.INJ. OF MED. INTRAMUSCULAR OR SUBCUTANEOUS * Preventive Medicine: ??Screenings/Counseling:?BMI ACTION PLAN?Above Normal BMI Follow-up?Dietary management education, guidance, and counseling * Follow Up: 3 -5 days if not improving * * Electronic signature of Ruben David MD, [phone] on 06/27/2025 at 09:49 AM EST Sign off status: PendingVisit Status:?CHK (Check Out) * Provider: Ralf David ([facility])MD Date: 08/27/2024 Generated for Printing/FaPeopleJarg/eTransmitting on:?06/27/2025 09:49 AM EST History and Physical Notes * Examination CategorySub-CategoryDetailNotesCategory NotesGeneral ExaminationGENERAL APPEARANCE:in no acute distress, well developed, well nourishedENT:ear and nose external appearance normal, tympanic membranes clear bilaterally, facial tenderness topalpation over sinusesEYES:pupils equal, round, reactive to light and accomodationsNECK:neck supple, full range of motion, no cervical lymphadenopathyCARDIO:no murmurs, regular rate and rhythm, S1, S2 normalLUNGS: clear to auscultation bilaterallyABDOMEN:soft, nontender , not distended, bowel sounds are activeNEUROLOGIC:nonfocal, motor strength of upper/lower extremities intact , sensory exam intactSKIN:no suspicious lesions, warm and dryEXTREMITIES: no clubbing, cyanosis, or edemaORAL CAVITY:mucosa moist
--- OUTSIDE RECORDS SUMMARY | 2025-06-27 09:50 | XMS_ITS | Clinical Summary ---
Author Organization [facility] Address [address] [place] [address] Care Team Providers Care Critical Power Technician Name Role Phone Roman David MD Primary Care Provider [phone] Allergies Active AllergyReactionsCriticalityNoted DateCommentsBee Esogeu9808/24/2023 Other reaction(s): Unknown Cat Lexguk6608/24/2023 Other reaction(s): Unknown LnvakkpnsosuUwjsHlv20/14/5734Wxbar34/12/2022 Other reaction(s): Unknown QvbfyinvgwtUsvcydvbiawBfkq87/16/5408ShgffajsmkmVsjgudlmqmgLhty67/12/2022 Other reaction(s): Unknown Sulfa (Sulfonamide Antibiotics)Wmovgqv8908/16/2023 Medications MedicationSigDispense QuantityRefillsLast FilledStart DateEnd DateStatus rosuvastatin (Crestor) 5 mg tablet Take 1 tablet by mouth at bedtime.12/01/2020ctive pantoprazole (ProtoNix) 40 mg EC tablet Take 1 tablet by mouth in the morning.Active glimepiride (Amaryl) 2 mg tablet Take 2 mg by mouth in the morning.Active acetaminophen (Tylenol) 500 mg tablet Take 1 tablet twice a day by oral route as needed.Active amitriptyline (Elavil) 50 mg tablet Take 1-2 tablets by mouth at bedtime. 25 mg at nightActive calcium carbonate 600 mg calcium (1,500 mg) tablet Take by mouth.08/21/2019Active aspirin 81 mg chewable tablet 1 (one) time each day at the same time.Active Truetrack Test strip USE 1 STRIP VIA METER ONCE A DAY*E11.9*11/26/2021ctive furosemide (Lasix) 20 mg tablet Take 10 mg by mouth 1 (one) time each day at the same time.Active leucovorin (Wellcovorin) 5 mg tablet Indications:alf 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Take one tab PO daily 90 tablet ctive leucovorin (Wellcovorin) 5 mg tablet Indications:alf 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Take one tab PO daily 90 tablet ctive irbesartan (Avapro) 300 mg tablet Take 300 mg by mouth at bedtime.Active carvedilol (Coreg) 6.25 mg tablet every 12 (twelve) hours.08/31/2023ctive cetirizine (ZyrTEC) 10 mg tablet 1 (one) time each day at the same time.09/21/2023ctive cyanocobalamin (Vitamin B-12) 1,000 mcg tablet Take 1,000 mcg by mouth in the morning.Active montelukast (Singulair) 10 mg tablet 1 (one) time each day at the same time.09/21/2023ctive fluorouracil (Efudex) 5 % cream Apply to directed areas on the scalp, nose, and left cheek twice a day x 14 days. Dispense 30 day supply but only use for 14 days.02/01/2024ctive OneTouch Delica Plus Lancet 33 gauge misc USE TO TEST BLOOD SUGAR ONCE DAILY01/24/2024ctive calcium carbonate-vitamin D3 600 mg-10 mcg (400 unit) capsule Take 1 capsule twice a day by oral route for 90 days.06/13/2016Active folic acid (Folvite) 1 mg tablet Indications:Psoriatic arthropathy (CMS/HCC)TAKE 1 TABLET BY MOUTH DAILY 90 tablet 5Active phenazopyridine (Pyridium) 200 mg tablet TAKE 1 TABLET BY MOUTH THREE TIMES DAILY BEFORE MEALS08/09/2024tive ciprofloxacin (Cipro) 500 mg tablet Take 1 tablet by mouth Twice daily at 6am and 6pm.08/09/2024tive clindamycin (Cleocin) 300 mg capsule Take 1 capsule by mouth every 6 (six) hours during the day.06/30/2024ctive clindamycin 1 % gel APPLY TO THE AFFECTED AREA(S) topically TWICE DAILY05/30/2024ctive mupirocin (Bactroban) 2 % ointment Apply topically in the morning and at bedtime.4Active ciclopirox (Loprox) 0.77 % cream Apply thin layer to affected area once a day, 30 day bdzvao245Active fluticasone (Flonase) 50 mcg/actuation nasal spray 1 spray in the morning.Active hydrocortisone 2.5 % cream Apply topically if needed in the morning and at bedtime.5Active metroNIDAZOLE (Metrolotion) 0.75 % lotion lotion APPLY A THIN LAYER TO FACE, ONCE DAILY FOR 30 DAYS5Active magnesium oxide-Mg AA chelate (Magnesium, oxide/AA chelate,) 300 mg capsule Take 300 mg by mouth twice a day.Active 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 2.5 mg tablet Indications:Psoriatic arthropathy (CMS/HCC)Take 3 tablets (7.5 mg total) by mouth 1 (one) time per week Take 3 tablets (7.5mg) weekly 36 tablet 605Active doxycycline (Monodox) 100 mg capsule Take 1 capsule by mouth Twice daily at 6am and 6pm.5Active doxycycline (Adoxa) 100 mg tablet Take 1 tablet by mouth Twice daily at 6am and 6pm.5Active benzoyl peroxide 5 % external wash Apply to the face and scalp then rinse daily, 30 day pesytg445Active triamcinolone (Kenalog) 0.1 % cream APPLY TO THE AFFECTED AREA topically TWICE DAILY02/26/2025tive predniSONE (Deltasone) 2.5 mg tablet Indications:Psoriatic arthropathy (CMS/HCC)TAKE 2 TABLETS BY MOUTH IN THE MORNING 180 tablet 5Active Active Problems ProblemNoted DateDiagnosed DateCompression fracture of L1 lumbar vertebra 09/10/20248152Szhltmdczdriam86/14/2025Unilateral vestibular weakness, right 03/08/2024alance ksbzxrip84/28/2024Sensorineural hearing loss (SNHL) of right ear with unrestricted hearing of left ear02/06/2024coustic jesoczw8901/23/2024 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 12/27/2023rthritis of right knee12/21/2023arpal tunnel euszvjws27/13/2024 Localized primary osteoarthritis of wrist12/21/2023Notalgia paresthetica 12/21/2023Otitis externa in other diseases classified elsewhere, unspecified ear 12/21/2023Sensorineural hearing loss (SNHL) of both ears12/21/2023Superficial basal cell wcmoxpvhp86/13/2024Superficial mycosis, buvsfeheoss07/13/2024Stage 3a chronic kidney gdouvsn8910/12/2023Excessive use of nonsteroidal anti-inflammatory drug (NSAID)10/12/2023ngina acudlicn38/enign essential fqpjzijppwgs03radycardiaoronary artery eqbaiyu89izzinessFatigue08/24/2023 10/11/2023Short of breath on bzhilona24bnormal findings on imaging of biliary tractnxietyenign prostatic hyperplasia without lower urinary tract jyqaeovm20 BMI 35.0-35.9,adultegeneration of cervical intervertebral disciabetes giacanwd32Epigastric pain Former htrbvp53Hiatal wggbde5208/16/2023 08/16/2023History of Helicobacter pylori xfwbxxutz86History of renal ifhdoaj46HTN (hypertension) Gcagdnjnsajenqryuwje60/07/202402/07/2024Increased frequency of urination Kidney yrkdaj43Loss of zjkdxopv17/07/2024 08/16/2023Low back painMigraineNausea and xnpogofy30Neoplasm of uncertain behavior of skin of lower nbgutjcou13NeuropathyNocturia08/16/2023 08/16/20239147Lkywbzorjcb08soriasisSinus eezreuzafq16Sleep apneaSteatosis of liver Urinary whwpsom57Vitamin B 12 deficiency Vitamin D pcbenppquv74Weight loss ge-related nuclear cataract of both eyes01/30/2023 08/16/2023lepharitis of upper and lower eyelids of both eyes01/30/2023 08/16/2023ry eyes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 degeneration of both eyesType 2 diabetes mellitus without complication, with long-term current use of zubbgui86 Psoriatic gsjizlcwqyd43/18/2022Long term 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05/27/2022 Llypykzbqauvu92/12/8499Vnnaogkpnqpgleu93/12/2022MR (polymyalgia rheumatica) 05/21/2022 Encounters DateTypeDepartmentCare JbtoHqcchnlaono19/08/2025Refill [facility] [address] [place] [address] Luis Daniel Brunner MD Psoriatic arthropathy ([facility])04/02/2025Telephone [facility] [address] [place] [address] Aleja Neal MA from Last 3 Months Immunizations ImmunizationAdministration DatesNext DueInfluenza, High Dose Seasonal, Preservative Free04/23/2020Influenza, Seasonal, Quadrivalent, Adjuvanted 07/26/2022Influenza, Mubsqpdlwdd26/15/2020,04/22/2015,05/22/2014Influenza, injectable, fbbkayqubgtr49/14/2015,05/22/2014Influenza, seasonal, injectable 04/18/2024,04/17/2024,05/12/2021Influenza, trivalent, jaxtzfktkl27/21/2024 Moderna SARS-CoV-2 Lgthytddehl57/21/2021,1Pfizer SARS-CoV-2 Vaccination 11/17/2021,11/17/2020,10/29/2020,1Pneumococcal Conjugate PCV 13 04/09/2016Pneumococcal Polysaccharide NQV359607/10/2017,07/10/2011RSV, Adult, Xwhhumhvjjo17/11/2024 Social History Tobacco UseTypesPacks/DayYears UsedDateSmoking Tobacco: FormerCigarettes Smokeless Tobacco: Never Tobacco Cessation:Counseling Given: Not Answered PHQ-2AnswerDate RecordedPatient Health Questionnaire-2 Pjsyk100UT Safety & EnvironmentAnswerDate RecordedFear of Current or Ex-PartnerNot on file 08/31/2023Emotionally AbusedNot on file08/31/2023hysically AbusedNot on file 08/31/2023Sexually AbusedNot on file4Physically or Sexually AbusedNot on file08/31/2023Sex and Gender InformationValueDate RecordedSex Assigned at ApziuUgin93/09/2025 10:48 AM EDTLegal ZxfRuqj4101/05/2022 9:47 PM EDTGender MudjmgjvZall57/09/2025 10:48 AM EDTSexual OrientationHeterosexual or Straight 03/18/2025 10:48 AM EDT Last Filed Vital Signs Vital SignReadingTime TakenCommentsBlood Buokbifl335/78003/18/2025 10:50 AM EDT Lqrvz7042/09/2025 10:50 AM EDTTemperature--Respiratory Hpjw5735 2:28 PM EDTOxygen Jzbehnfghz59%09/10/2024 10:56 AM ESTInhaled Oxygen Concentration-- Odsbpq852 kg (256 lb)03/18/2025 10:50 AM AKYBliufv065.3 cm (5' 9 )03/18/2025 10:50 AM EDTBody Mass Index37.8003/18/2025 10:50 AM EDT Plan of Treatment DateTypeDepartmentCare Team (Latest Contact Info)Okhynuamqvj53/09/2026 11:00 AM EDTFollow-[facility] [address] [place] [address] Luis Daniel Brunner MD [address] [place] [address] Health MaintenanceDue DateLast DoneCommentsMedicare Annual Wellness (AWV) 2Diabetes: Retinopathy Rgqrmimkv58/26/1952Diabetes: Urine Protein Kpgcjiahs33/26/1961Adult Hyindbw6411/03/1963Zoster Vaccines (1 of 2)11/03/1991 Diabetes: Hemoglobin A1C503/OVID-19 Vaccine ( season)/05/2024, 11/17/2021, 05/20/2021, Additional history exists Influenza Vaccine (#1)/, 04/18/2024, 04/17/2024, Additional history existsFall Risk Evdlhzano71Depression Screening /03/2025Pneumococcal Vaccine: 50+ RbpqfKrlluxdun54/01/2018, 04/09/2016, 07/10/2011HIB VaccinesAged OutNo longer eligible based on patient's age to complete this topicHPV VaccinesAged OutNo longer eligible based on patient's age to complete this topicIPV VaccinesAged OutNo longer eligible based on patient's age to complete this topicMeningococcal B VaccineAged OutNo longer eligible based on patient's age to complete this topicMeningococcal VaccineAged OutNo longer eligible based on patient's age to complete this topicRotavirus VaccinesAged OutNo longer eligible based on patient's age to complete this topic Procedures Procedure NamePriorityDate/TimeAssociated DiagnosisCommentsHEMOGLOBIN E7ZFikylem 09/10/2024 12:38 PM EST Other specified diabetes mellitus with other specified complication, unspecified whether detention insulin use ([facility]) from Last 3 Months or Most Recently Relevant to Health Maintenance Results * (ABNORMAL) Hemoglobin A1c (09/10/2024 12:38 PM EST)ComponentValueRef RangeTest MethodAnalysis TimePerformed AtPathologist SignatureHemoglobin A1C6.9(H)4.0 - 6.0 %09/10/2024 3:11 PM [facility] ([facility])Estimated Average Glucose 151mg/dL09/10/2024 3:11 PM [facility] ([facility])Specimen (Source) Anatomical Location / LateralityCollection Method / VolumeCollection Time Received TimeBloodVenous blood specimen / UnknownVenipuncture / Unknown 09/10/2024 12:38 PM EST09/10/2024 12:45 PM EST Narrative Authorizing ProviderResult TypeResult StatusLuis Daniel Brunner MDLAB BLOOD ORDERABLESFinal ResultPerforming OrganizationAddressCity/State/ZIP CodePhone Number [facility] ([facility]) [address] [place] [address] from Last 3 Months or Most Recently Relevant to [place] [address] Care Teams Team MemberRelationshipSpecialtyStart DateEnd Roman David MD [address] [facility] [place] [id number] [facility] - General08/24/22
--- OUTSIDE RECORDS SUMMARY | 2025-06-27 09:50 | XMS_ITS | Clinical Summary ---
Author Organization [facility] Address [address] [facility] [place] [address] Care Team Providers Care Cone Sewer Name Role Phone Roman David MD Primary Care Provider [phone] Active AllergyReactionsCriticalityNoted DateCommentsBee SpbshvFquhflm38/15/2024 Other reaction(s): Unknown Cat YtwdnfIhuvavr02/15/2024 Other reaction(s): Unknown UcbrzyqmipqnNzvlJol31/14/5498TfxxedxaavqEfvuzseboapRyfu93/16/2021enicillins 07/20/2023Sulfa Ugimtcyqcdz17/13/2024 Medications MedicationSigDispense QuantityRefillsLast FilledStart DateEnd DateStatus acetaminophen (Tylenol Extra Strength) 500 MG tablet Active aspirin 81 MG chewable tablet Chew 2 (two) times a weekActive folic acid (Folvite) 1 MG tablet Take 1 tablet by mouth Daily08/25/2022ctive 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 2.5 MG tablet Take 2 tablets by mouth 1 (one) time per week. Follow directions carefully, and ask to explain any part you do not understand. Take exactly as directed.Active predniSONE (Deltasone) 10 MG tablet Take 5 mg by mouth DailyActive pantoprazole (ProtoNix) 40 MG EC tablet Take 40 mg by mouth in the morning. Take before meals. Do not crush, chew, or split.Active rosuvastatin (Crestor) 5 MG tablet Take 5 mg by mouth DailyActive cyanocobalamin (Vitamin B-12) 100 MCG tablet Take 100 mcg by mouth DailyActive doxycycline (Adoxa) 100 MG tablet Take 100 mg by mouth in the morning and 100 mg before bedtime. Take with a full glass of water and do not lie down for at least 30 minutes after.Active amitriptyline (Elavil) 25 MG tablet Take 25 mg by mouth as needed at bedtime for sleep07/14/2023ctive carvedilol (Coreg) 6.25 MG tablet Take 6.25 mg by mouth in the morning and 6.25 mg in the evening. Take with meals.08/31/2023ctive cetirizine (ZyrTEC) 10 MG tablet Take 10 mg by mouth Daily09/21/2023ctive montelukast (Singulair) 10 MG tablet Take 10 mg by mouth at allfgzk5709/21/2023ctive irbesartan (Avapro) 300 MG tablet Take 300 mg by mouth Daily01/19/2024ctive fluorouracil (Efudex) 5 % cream Indications:Actinic keratosisApply to directed areas on the scalp, nose, and left cheek twice a day x 14 days. Dispense 30 day supply but only use for 14 days. 40 g 02/01/2024ctive glimepiride (Amaryl) 2 MG tablet Take 2 mg by mouth in the morning. Take before meals.Active ciclopirox (Loprox) 0.77 % cream Indications:Other seborrheic dermatitisApply thin layer to affected area once a day, 30 day supply 15 g 1105Active fluticasone (Flonase) 50 MCG/ACT nasal spray 1 spray in the morning.Active MAGNESIUM BISGLYCINATE PO Take 300 mg by mouth in the morning and 300 mg in the evening.Active benzoyl peroxide 5 % external wash Indications:FolliculitisApply to the face and scalp then rinse daily, 30 day supply 227 g 5Active clindamycin (Cleocin) 300 MG capsule Take 1 capsule by mouth in the morning and 1 capsule at noon and 1 capsule in the evening.06/30/2024ctive Active Problems ProblemNoted DateDiagnosed DateUnilateral vestibular weakness, right03/08/2024 Balance /28/2024coustic wbkvfoj3401/23/2024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12/27/2023bnormal ultrasound of eycldqg1312/21/2023rthritis of right knee12/21/2023enign prostatic hyperplasia with urinary pyraldzskxd57/13/2024arpal tunnel dkicdihy06/13/2024 Gastroesophageal reflux /13/2024Degenerative joint disease of wrist 12/21/2023Localized primary osteoarthritis of wrist12/21/2023Notalgia sbshzvlrutpc33/13/2024Otitis externa in other diseases classified elsewhere, unspecified ear12/21/2023Otitis zwhxbcy0912/21/20235794Dtgjjgwiwrh55/13/2024soriasis tasjsbfi86/13/2024Sensorineural hearing loss (SNHL) of both ears12/21/2023 Superficial basal cell dzmsxveao78/13/2024Superficial mycosis, unspecified 12/21/2023Urinary nlbkzfw9912/21/2023Excessive use of nonsteroidal anti- inflammatory drug (NSAID)10/12/2023hronic kidney disease, stage Angina xtpawwza17/15/2024enign essential dgmqmlcjobwm22/15/2024radycardia 08/24/2023oronary artery ntrtptr6708/24/20236054Hhsfeujkt18/15/6960Akglspp03/15/2024 Exvhrodfdmutlc37/15/2024Short of breath on wlmbwxfo56/15/2024bnormal findings on imaging of biliary tract08/16/20231453Udpgyov49/07/2024egeneration of cervical intervertebral disc08/16/2023iabetes njavxtgr68/07/2024Epigastric pain 08/16/2023Hiatal rwtusz5508/16/2023HTN (hypertension)08/16/2023 Codlinudfpracindldsi15/07/2024Kidney uuzajd5108/16/2023Increased frequency of igvytplpp40/07/2024Loss of mewzqpqq27/07/2024Low back pain08/16/2023Neoplasm of uncertain behavior of skin of lower /07/1018Efduspjuou71/07/2024 Zxtseoiv27/07/3711Glshxjkzfil78/07/3216Ysgnkuufp01/07/2024Sleep apnea08/16/2023 Sinus wgeuoozhuv39/07/2024Steatosis of liver08/16/2023Vitamin B 12 deficiency 08/16/2023athological fracture of vertebra due to naiwmpojdbsc26/27/2023ge- related nuclear cataract of both eyes01/30/2023Type 2 diabetes mellitus without complication, with long-term current use of saiyazy0501/30/2023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 degeneration of both eyes01/30/2023ry eyes 01/30/2023lepharitis of upper and lower eyelids of both eyes01/30/2023Long term 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05/27/2022soriasis with wursitlgspo91/18/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 05/21/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 rheumatica ([facility])05/21/20226776Omaedxtfolrma55/12/2022 Resolved Problems ProblemNoted DateDiagnosed DateResolved DateFormer cigarette fdktuy7708/16/2023 12/21/2023History of Helicobacter pylori ppnfdotal62History of renal vwmoaza17MigraineNausea and vomiting Vitamin D xoplajukmm88Weight loss Encounters DateTypeDepartmentCare NdbeHkryvwrefxd64/17/2025 11:00 AM ESTOffice Visit [facility] [address] [place] [address] Tariq Perez DO 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 degeneration of both eyes (Primary Dx); Age-related nuclear cataract of both eyes; Type 2 diabetes mellitus without complication, with long-term current use of insulin ([facility]); Dry eyes; Blepharitis of upper and lower eyelids of both eyes, unspecified type06/25/2025 Bamboo flowsheet [facility] [address] [place] [address] Tariq Perez DO 06/25/2025Travelfrom Last 3 Months Family History Medical HistoryRelationNameCommentsNo Known ProblemsBrotherNo Known Problems FatherNo Known ProblemsMotherCancerOtherNo Known ProblemsSisterMelanomaNeg Hx Multiple myelomaNeg HxRelationNameStatusCommentsBrotherFatherMotherOtherSister Social History Tobacco UseTypesPacks/DayYears UsedDateSmoking Tobacco: FormerCigarettesPassive Smoke Exposure: NeverSmokeless Tobacco: Never Tobacco Cessation:Counseling Given: Not Answered Alcohol UseStandard Drinks/WeekCommentsNever0 (1 standard drink = 0.6 oz pure alcohol)caffeine 1-2 cups/daySex and Gender InformationValueDate RecordedSex Assigned at BirthNot on fileLegal YtoMhjd9109/21/2022 6:46 PM EDTGender Identity Not on fileSexual OrientationNot on file Last Filed Vital Signs Vital SignReadingTime TakenCommentsBlood Rpvosvdf327/76001/23/2024 9:54 AM EDT Pulse--Temperature--Respiratory Rate--Oxygen Saturation--Inhaled Oxygen Concentration--Ozrfvp719 kg (244 lb)07/26/2024 8:54 AM SRXNzmydl402.2 cm (5' 7 ) 07/26/2024 8:54 AM ESTBody Mass Index38.22007/26/2024 8:54 AM EST Plan of Treatment DateTypeDepartmentCare Team (Latest Contact Info)Gdxegdfwkuq95/14/2026 1:00 PM ESTOffice Visit [facility] [address] [place] [address] Yudy Montes MD [address] [place] [address] 07/01/2026 10:30 AM ESTOffice Visit [facility] [address] [place] [phone] Tariq Perez DO [address] [place] [address] Health MaintenanceDue DateLast DoneCommentsCOVID-19 Vaccine (2024- season)5107/20/2023, 11/17/2021, 05/20/2021, Additional history exists Influenza Vaccine (#1)5107/30/2023, 04/18/2024, 04/17/2024, Additional history existsPneumococcal Vaccine: 65+ JwrsyBocoqrgdz91/01/2018, 04/09/2016, 07/10/2011 Procedures Procedure NamePriorityDate/TimeAssociated DiagnosisCommentsOCT, RETINA - OU - BOTH UZRZWauqdmh23/17/2025 12:10 PM EST 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 degeneration of both eyes from Last 3 Months Results * OCT, Retina - OU - [...] TypeResult StatusJonatniki Perez DOOPHTH TOMOGRAPHY Final Result from Last [address] [place] [address] Care Teams Team MemberRelationshipSpecialtyStart DateEnd Roman David MD [address] [place] [address] PCP - GeneralFamily Medicine10/20/23
--- OUTSIDE RECORDS SUMMARY | 2025-06-27 09:50 | XMS_ITS | Encounter Summary ---
Author Organization [facility] Address [address] [place] [address] Care Team Providers Care Potato Bucker Name Role Phone Roman David MD Primary Care Provider [phone] Encounter Details DateTypeDepartmentCare Team (Latest Contact Info)Isytwolckke26/17/2025Travel Social History Tobacco UseTypesPacks/DayYears UsedDateSmoking Tobacco: FormerCigarettesPassive Smoke Exposure: NeverSmokeless Tobacco: NeverAlcohol UseStandard Drinks/Week CommentsNever0 (1 standard drink = 0.6 oz pure alcohol)caffeine 1-2 cups/daySex and Gender InformationValueDate RecordedSex Assigned at BirthNot on fileLegal LiqWbto8309/21/2022 6:46 PM EDTGender IdentityNot on fileSexual OrientationNot on filedocumented as of this encounter Plan of Treatment DateTypeDepartmentCare Team (Latest Contact Info)Erwgwhuqdvj67/14/2026 1:00 PM ESTOffice Visit [facility] [address] [place] [address] Yudy Montes MD [address] [place] [address] 07/01/2026 10:30 AM ESTOffice Visit [facility] [address] [place] [address] Tariq Perez DO [address] [place] [address] documented as of this encounter Visit Diagnoses Not on filedocumented in this encounter Care Teams Team MemberRelationshipSpecialtyStart DateEnd Date Roman David MD [address] [place] [address] PCP - GeneralFamily Medicine10/20/23documented as of this encounter
--- OUTSIDE RECORDS SUMMARY | 2025-06-27 09:50 | XMS_ITS | Clinical Summary ---
Author Organization [facility] Address [address] [place] [address] Phone Care Team Providers Care Store Operations Manager Name Role Phone Roman David MD Primary Care Provider [phone] Allergies Active AllergyReactionsCriticalityNoted DateCommentsBee PollenUnknownLow 08/24/2023at ZettxkKexdwprCvo16/15/1298LvcihdribasgLeluCjh28/14/2025Penicillins LczxvkubgyrEkgl13/12/2022 Other reaction(s): Unknown Medications MedicationSigDispense QuantityRefillsLast FilledStart DateEnd DateStatus aspirin 81 mg chewable tablet Chew 1 tablet (81 mg) 2 times a week.Active amitriptyline (Elavil) 25 mg tablet Take 1 tablet (25 mg) by mouth once daily at bedtime.Active folic acid (Folvite) 1 mg tablet Take 1 tablet (1 mg) by mouth once daily.08/25/2022ctive 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 (Trexall) 2.5 mg tablet Take 4 tablets (10 mg total) by mouth 1 (one) time per week.11/21/2022ctive pantoprazole (ProtoNix) 40 mg EC tablet Take 1 tablet (40 mg) by mouth once daily in the morning. Take before meals. Active predniSONE (Deltasone) 2.5 mg tablet Take 1 tablet (2.5 mg) by mouth once daily.08/17/2023ctive cyanocobalamin (Vitamin B-12) 1,000 mcg tablet Take 1 tablet (1,000 mcg) by mouth once daily.Active irbesartan (Avapro) 300 mg tablet Take 1 tablet (300 mg) by mouth once daily at bedtime.Active carvedilol (Coreg) 6.25 mg tablet Take 1 tablet (6.25 mg) by mouth 2 times daily (morning and late afternoon). Active cetirizine (ZyrTEC) 10 mg tablet Take 1 tablet (10 mg) by mouth once daily.Active hydrocortisone 2.5 % cream Apply topically 2 times a day as needed.5Active glimepiride (Amaryl) 2 mg tablet Take 1 tablet (2 mg) by mouth see administration instructions. 2mg in am 1 mg hs 3Active magnesium oxide-Mg AA chelate (Magnesium, oxide/AA chelate,) 300 mg capsule Take 1 capsule (300 mg) by mouth 2 times a day.Active fluticasone (Flonase) 50 mcg/actuation nasal spray Administer 1 spray into each nostril once daily. Shake gently. Before first use, prime pump. After use, clean tip and replace cap.Active montelukast (Singulair) 10 mg tablet Take 1 tablet (10 mg) by mouth once daily at bedtime.Active rosuvastatin (Crestor) 10 mg tablet Indications:Mixed hyperlipidemiaTake 1 tablet (10 mg) by mouth once daily. 90 tablet 306///6Active Active Problems ProblemNoted DateDiagnosed DateBMI 35.0-35.9,adult08/20/2024 Assessment & Plan (08/20/2024 3:46 PM EST): Reviewed the merits of healthy lifestyle choices on overall cardiovascular health. Vestibular cmfprvajlk79/30/2024Sensorineural hearing loss (SNHL) of right ear with unrestricted hearing of left ear02/06/2024Former cigarette ybceac5111/27/2023 Benign essential cabwsbpunisr61/15/2024 Assessment & Plan (08/20/2024 3:46 PM EST): optimal in office Optimal at time of stress test Assessment & Plan (07/23/2024 1:25 PM EST): Optimal in office Coronary artery hkkaybz0808/24/2023 Assessment & Plan (08/20/2024 3:45 PM EST): September 2017 cardiac cath RCA 50% No left system disease LVEF 45-50% Jul 2024 MPI: no ischemia, no infarct. EF 57% Assessment & Plan (07/23/2024 1:25 PM EST): September 2017 cardiac cath RCA 50% No left system disease LVEF 45-50% December 2021 MPI no ischemia, no infarct. LVEF 53%. Swvmhyigw93/15/6201Moneoqm37/15/2024 Assessment & Plan (07/23/2024 1:27 PM EST): Presents today as an add-on for progressive worsening fatigability and change in exercise capacity and functional tolerance Oivelbnjvcvypk26/15/2024 Assessment & Plan (08/20/2024 3:46 PM EST): Low intensity statin On highest tolerated dose Assessment & Plan (07/23/2024 1:26 PM EST): Low intensity statin On highest tolerated dose Short of breath on pbrykkgj67/15/2024 Assessment & Plan (08/20/2024 3:39 PM EST): Jul 2024: add-on due to concerns of progressive worsening dyspnea on exertion. Favorable cardiac testing including MPI, TTE and holter. Assessment & Plan (07/23/2024 1:26 PM EST): Presents today as an add-on due to concerns of progressive worsening dyspnea on exertion Sleep apnea08/16/2023 Assessment & Plan (07/23/2024 1:27 PM EST): Remains compliant with CPAP Polymyalgia fmmztrxvli65/12/2022 Resolved Problems ProblemNoted DateDiagnosed DateResolved UgicDcbvcgajwwcfya07/14/202505/23/2025 Assessment & Plan (08/20/2024 3:45 PM EST): September 2017 LVEF 45 to 50% TTE September 2017 LVEF 45-50% cardiac cath December 2021 LVEF 53% MPI 2024 TTE LVEF 50-55% No WMA AV p7:m4 Assessment & Plan (07/23/2024 1:27 PM EST): September 2017 LVEF 45 to 50% TTE September 2017 LVEF 45-50% cardiac cath December 2021 LVEF 53% MPI Angina pqcplyzh24Short of breath on cjdilpyb93/15/2024 07/23/20246445Ausaiaahbcj03 Immunizations ImmunizationAdministration DatesNext DueFlu vaccine, trivalent, preservative free, HIGH-DOSE, age 65y+ (Fluzone)04/23/2020Influenza, Seasonal, Quadrivalent, Ofkyegfari45/17/2023Influenza, Ogosfypobcb14/14/2015,05/22/2014Influenza, seasonal, mmyktrtvhx49/10/2024,04/17/2024,05/12/2021Influenza, trivalent, lwejxiejqg62/21/2024Moderna COVID-19 vaccine, bivalent, blue cap/cunningham label *Check age/dose*10/28/2020,1Pfizer COVID-19 vaccine, 12 years and older, (30mcg/0.3mL) (Comirnaty)4Pfizer Purple Cap SXUB-WnT-087/20/2021 Pneumococcal conjugate vaccine, 13-valent (PREVNAR 13)04/09/2016Pneumococcal polysaccharide vaccine, 23-valent, age 2 years and older (PNEUMOVAX 23) 07/10/2017,07/10/2011RSV, 60 Years And Older (AREXVY)05/20/2024 Family History Medical HistoryRelationNameCommentsHeart failureFatherHypertensionMotherRelation NameStatusCommentsFatherMother Social History Tobacco UseTypesPacks/DayYears UsedDateSmoking Tobacco: FormerCigarettesPassive Smoke Exposure: NeverSmokeless Tobacco: Never Tobacco Cessation:Counseling Given: Not Answered Alcohol UseStandard Drinks/WeekCommentsNever0 (1 standard drink = 0.6 oz pure alcohol)PHQ-2AnswerDate RecordedPatient Health Questionnaire-2 Xvtct513 Sex and Gender InformationValueDate RecordedSex Assigned at BirthNot on file Legal YzrVzep46/26/2022 3:28 PM ESTGender IdentityNot on fileSexual Orientation Not on file Last Filed Vital Signs Vital SignReadingTime TakenCommentsBlood Gzfbhmsf261/8211/29/2024 10:51 AM EDT Ykwxr902011/29/2024 10:25 AM SRCCpygztqafyh91.4 ??C (97.6 ??F)02/06/2024 1:38 PM EDTRespiratory Rate--Oxygen Saturation--Inhaled Oxygen Concentration--Focawn126 kg (243 lb)11/29/2024 10:25 AM VXKJtnmwe034.3 cm (5' 9 )11/29/2024 10:25 AM EDT Body Mass Index35.8811/29/2024 10:25 AM EDT Plan of Treatment DateTypeDepartmentCare Team (Latest Contact Info)Uydalsvqfue11/24/2026 1:30 PM ESTOffice Visit at [facility] [address] [address] Ly Villanueva MD [address] [facility] [address] [place] [address] Health MaintenanceDue DateLast DoneCommentsLipid Panel1941TSH Level 2CKD: Urine Protein Okomzkpbs71/26/1961Hepatitis A Vaccines (1 of 2 - Risk 2-dose series)1DTaP/Tdap/Td Vaccines (1 - Tdap)11/03/1963Zoster Vaccines (1 of 2)11/03/1991Hepatitis B Vaccines (1 of 3 - Risk 3-dose series) 2001Medicare Annual Wellness Visit (AWV)/Influenza Vaccine (#1)/, 04/18/2024, 04/17/2024, Additional history existsCOVID-19 Vaccine ( - season)/05/2024, 11/17/2021, 10/28/2020, Additional history existsPneumococcal DgynyfcYfkgvkxwi26/19/2018, 07/10/2017, 04/09/2016, Additional history existsRSV High Risk: (Elderly (60+) or Population)Uwxydkepy70/11/2024HIB VaccinesAged OutNo longer eligible based on patient's age to complete this topicHPV VaccinesAged OutNo longer eligible based on patient's age to complete this topicIPV VaccinesAged OutNo longer eligible based on patient's age to complete this topicMeningococcal VaccineAged OutNo longer eligible based on patient's age to complete this topic Rotavirus VaccinesAged OutNo longer eligible based on patient's age to complete this topic Insurance * Guarantor: Travis Coburn TypeRelation to PatientDate of BirthPhone Billing AddressPersonal/AnqprgGnhe60/26/1941 ([place]) [address] [place] [address] [place] [address] Care Teams Team MemberRelationshipSpecialtyStart DateEnd Roman David MD [address] [place] [address] [facility] - General12/08/21
--- OUTSIDE RECORDS SUMMARY | 2025-06-27 09:50 | XMS_ITS | Patient Health Record ---
Author Organization [facility] Address [address] [place] [address] Support Name Relationship Address Phone Travis Coburn Guarantor Unknown [phone] Reason For Referral No Information Problems Problem Type SNOMED Code ICD Code Onset Dates Problem Status W/U Status Risk Notes Problem Type II diabetes mellitus withou t complication (251294441) Diabetes (E11.9) ActiveconfirmedProblemCompression fracture of L1 vertebra, initial encounter (S32.010A)ActiveconfirmedProblemMechanical low back pain (465783770)Mechanical low back pain (M54.59)Activeconfirmed Plan Of Treatment No Information Insurance Providers Payer Name Payer Address Payer Phone Subscriber Number Group Number Insured Name Patient Relationship to Insured Coverage Start Date Coverage [place] [address] [place] [address] [id number] Asia Coburn - patient is the insured
--- OUTSIDE RECORDS SUMMARY | 2025-06-27 09:50 | XMS_ITS | Encounter Summary ---
Author Organization [facility] Address [address] [place] [address] Care Team Providers Care Room Clerk Name Role Phone Roman David MD Primary Care Provider [phone] Encounter Details DateTypeDepartmentCare Team (Latest Contact Info)Yrneqhwabfd65/17/2025amboo flowsheet [facility] [address] [place] [address] Tariq Perez DO [address] [place] [address] Social History Tobacco UseTypesPacks/DayYears UsedDateSmoking Tobacco: FormerCigarettesPassive Smoke Exposure: NeverSmokeless Tobacco: NeverAlcohol UseStandard Drinks/Week CommentsNever0 (1 standard drink = 0.6 oz pure alcohol)caffeine 1-2 cups/daySex and Gender InformationValueDate RecordedSex Assigned at BirthNot on fileLegal VdiWpjc5709/21/2022 6:46 PM EDTGender IdentityNot on fileSexual OrientationNot on filedocumented as of this encounter Plan of Treatment DateTypeDepartmentCare Team (Latest Contact Info)Khmgybjwewf52/14/2026 1:00 PM ESTOffice Visit [facility] [address] [place] [address] Yudy Montes MD [address] [place] [address] 07/01/2026 10:30 AM ESTOffice Visit [facility] [address] [place] [address] Tariq ePrez, DO [address] [place] [address] documented as of this encounter Visit Diagnoses Not on filedocumented in this encounter Care Teams Team MemberRelationshipSpecialtyStart DateEnd Date Roman David MD [address] [place] [address] PCP - GeneralFamily Medicine10/20/23documented as of this encounter
--- OUTSIDE RECORDS SUMMARY | 2025-06-27 09:51 | XMS_ITS | Patient Health Record ---
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 Name Role Phone Joann Ruben Primary Care Provider [phone] Allergies Allergen (clinical drug ingredient) Drug/Non Drug Allergy documented on EMR Reaction Allergy Type Onset Date Status Substance with sulfonamide s tructure and antibacterial mechanism of action (substance) Sulfa Antibiotics unknown Drug Allergy ActivePenicillinanaphylaxisDrug AllergyActive Results Component Value Reference Range Notes BNP Reviewed date:07/21/2024 10:23:30 AM Interpretation: Performing Lab: Notes/Report: [facility] , NT Pro B Type Natriuretic Pept 174.0 <=1800.0 p g/mL Performing Lab:see noteML - [facility] LBCBC AUTO DIFF Reviewed date:07/21/2024 10:23:30 AM Interpretation: Performing Lab: Notes/Report: [facility] ,White Blood Count9.74.0-11.0 10 3/uLRed Blood Count4.564.70-6.10 10 6/uL Oxawhtjttx78.514.0-18.0 g/qKYromxhwhzg22.142.0-54.0 %Mean Corpuscular Ystkvc42.5 80.0-94.0 fLMean Corpuscular Lpdbhssjwq72.825.9-34.0 pgMean Corpuscular HGB Conc 33.629.9-35.2 g/dLRed Cell Distribution Width13.311.0-15.0 %Platelet Yqwnp964 150-450 10 3/uLMean Platelet Lxlpfw09.89.5-13.5 fLNeutrophils Percent Auto73.3 43.0-75.0 %Lymphocytes Percent Auto16.920.5-60.0 %Monocytes Percent Auto7.31.7- 12.0 %Eosinophils Percent Auto1.40.9-7.0 %Basophils Percent Auto0.50.2-2.0 % Immature Granulocytes Pct Auto0.60.0-0.5 %Neutrophils Absolute Auto7.11.4-6.5 10 3/uLLymphocytes Absolute Auto1.71.2-3.8 10 3/uLMonocytes Absolute Auto0.70.3-0.8 10 3/uLEosinophils Absolute Auto0.10.0-0.7 10 3/uLBasophils Absolute Auto0.10.0- 0.1 10 3/uLImmature Granulocytes Abs Auto0.060.00-0.03 10 3/uLPerforming Lab:see noteML - [facility] LBPROF 14(COMP METB) Reviewed date:07/21/2024 10:23:30 AM Interpretation: Performing Lab: Notes/Report: [facility] ,Wvzuvm056053-448 mmol/LPotassium3.93.5-5.1 mmol/LMccciosd94522-898 mmol/LCarbon Pgilznh06.821.0-32.0 mmol/LAnion Gap10.0Dczcrom11125-163 mg/dLBlood Urea Fxqehhns69.07.0-18.0 mg/dLCreatinine1.230.70-1.30 mg/dLEstimated GFR ( Nancy>60>=60 mL/min/1.73m 2Estimated GFR (Non- Ame56>=60 mL/min/1.73m 2 BUN Creatinine Ratio10.7Adhxpdm4.08.5-10.1 mg/dLBilirubin Total0.60.2-1.0 mg/dL Aspartate Amino Iaarhbnpexs7549-29 U/LAlanine Enrvqktcthwkujid8022-14 U/L Alkaline Ghvsfefxuon09087-207 U/LTotal Protein7.26.4-8.2 g/dLAlbumin Level3.7 3.4-5.0 g/dLGlobulin3.5Albumin Globulin Ratio1.1Performing Lab:see noteML - [facility] LBRENAL FUNCTION PANEL Reviewed date:09/25/2024 07:55:24 PM Interpretation: Performing Lab: Notes/Report: [facility] ,Isirbj226010-265 mmol/LPotassium4.23.5-5.1 mmol/SLbarpqsj15188-656 mmol/LCarbon Uecmncf40.821.0-32.0 mmol/LAnion Gap9.8Errmucv30309-965 mg/dLBlood Urea Nitrogen 15.07.0-18.0 mg/dLCreatinine1.310.70-1.30 mg/dLEstimated GFR ( Nancy>60 >=60 mL/min/1.73m 2Estimated GFR (Non- Ame52>=60 mL/min/1.73m 2BUN Creatinine Ratio11.0Qxolmac1.98.5-10.1 mg/dLPhosphorus2.82.6-4.7 mg/dLAlbumin Level3.63.4-5.0 g/dLPerforming Lab:see noteML - [facility] LBMR TRAM wo/w con Reviewed date:09/26/2024 09:03:26 AM Interpretation: Performing Lab: Notes/Report: Source Facility: [place] [address] [place] [address] Magnetic Resonance Report Signed Patient: TRAVIS COBURN MR#: [id number] : 1940 Acct:[id number] Age/Sex: 83 / M ADM Date: 09/25/24 Loc: LAB Attending Dr: Loreta Barragan M.D. Ordering Physician: Loreta Barragan M.D. Date of Service: 09/25/24 Procedure(s): IAC wo/w con Accession Number(s): [id number] cc: Roman David M.D.; Loreta Barragan M.D. The [place] [address] Patient Name: TRAVIS COBURN MRN: [id number] date: 1940 Sex: M Assigned Patient Location: LAB Current Patient Location: LAB Accession/Order Number: [id number] Exam Date: 09/25/2024 19:50 Report Date: 09/25/2024 19:59 At the request of: LORETA BARRAGAN MD Procedure: MR IAC wo/w con [...] Leo Cummings M.D.09/25/2024 7:59 PM Dictation Location: [place] [address] Electronically authenticated by: [id number] Y Date: 09/25/2024 19:59 Dictated By: Leo Cummings M.D. Signed By: 09/25/242001 DD/ 58 TD/TT: Service Learning Coordinator:LIPID PROFILE Reviewed date:12/09/2024 09:17:26 PM Interpretation: Performing Lab: Notes/Report: [facility] ,Cxbyzpetbarlb773<=150 mg/cHSqobcljufgu299<=200 mg/dLHDL Mxjmvineuix3585-87 mg/dL <40 mg/dl - HIGH CARDIOVASCULAR RISK > or =60 mg/dl - LOW CARDIOVASCULAR RISK LDL Cholesterol Ihzyadqssp557.0 <100 mg/dl OPTIMAL 160-189 mg/dl HIGH 130-159 mg/dl BORDERLINE HIGH 100-129 mg/dl NEAR OR ABOVE OPTIMAL >190 mg/dl VERY HIGH VLDL ATTGSWAFYAW03.0Chol HDL Ratio3.7 >11.0 HIGH RISK 4.4 - 7.1 AVERAGE RISK 3.3 - 4.4 LOW RISK 7.1 - 11.0 MODERATE RISK Performing Lab:see noteML - [facility] LBCBC AUTO DIFF Reviewed date:01/01/2025 09:12:56 PM Interpretation: Performing Lab: Notes/Report: [facility] ,White Blood Count9.54.0-11.0 10 3/uLRed Blood Count4.164.70-6.10 10 6/uL Ybjlcmkgsw16.114.0-18.0 g/nOGlyrhojjfb67.742.0-54.0 %Mean Corpuscular Kwzxuz17.0 80.0-94.0 fLMean Corpuscular Izhybwgncf97.525.9-34.0 pgMean Corpuscular HGB Conc 33.929.9-35.2 g/dLRed Cell Distribution Width13.911.0-15.0 %Platelet Rzmey864 150-450 10 3/uLMean Platelet Olewcj64.99.5-13.5 fLNeutrophils Percent Auto72.6 43.0-75.0 %Lymphocytes Percent Auto18.020.5-60.0 %Monocytes Percent Auto7.61.7- 12.0 %Eosinophils Percent Auto0.80.9-7.0 %Basophils Percent Auto0.40.2-2.0 % Immature Granulocytes Pct Auto0.60.0-0.5 %Neutrophils Absolute Auto6.91.4-6.5 10 3/uLLymphocytes Absolute Auto1.71.2-3.8 10 3/uLMonocytes Absolute Auto0.70.3-0.8 10 3/uLEosinophils Absolute Auto0.10.0-0.7 10 3/uLBasophils Absolute Auto0.00.0- 0.1 10 3/uLImmature Granulocytes Abs Auto0.060.00-0.03 10 3/uLPerforming Lab:see noteML - [facility] LBECG 12 lead Reviewed date:01/01/2025 09:12:56 PM Interpretation: Performing Lab: Notes/Report: Source Facility: [facility]-[address] [place] [address] [address] Electrocardiograph Report Signed Patient: TRAVIS COBURN MR#: [id number] : 1940 Acct:[id number] Age/Sex: 84 / M ADM Date: 12/31/24 Loc: ER Attending Dr: Ordering Physician: Josue Mayes M.D. 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 Measurements Intervals [place] Rate: 77 P: 73 RI: 168 QRS: -47 QRSD: 102 T: 62 QT: 364 QTc: 396 Interpretive Statements 1100 Sinus rhythm 1470 with occasional supraventricular premature complexes 2630 Left anterior fascicular block 9150 abnormal ECG No previous ECG available for comparison Electronically Signed On 01-01-2025 19:57:48 EDT by DEONDRE RM M.D. Dictated By: DEONDRE RM Signed By: 01/01/251957 DD/ 55 TD/TT: Service Learning Coordinator:HOWARD W/ REFLEX FT4 Reviewed date:01/01/2025 09:12:56 PM Interpretation: Performing Lab: Notes/Report: [facility] ,TSH W/ REFLEX FT42.5250.358-3.740 uIU/mLPerforming Lab:see noteML - [facility] LBTroponin I High Sensitivity Reviewed date:01/01/2025 09:12:56 PM Interpretation: Performing Lab: Notes/Report: [facility] ,Troponin I High Sensitivity8.54.0-76.1 pg/mL REFERENCE LIMIT (URL) OF TROPONIN, DEFINED THE 99TH 99TH PERCENTILE = 76.2 PG/ML NOTE: HIGH-SENSITIVITY TROPONIN ASSAY IS NOT INTENDED TO BE USED IN ISOLATION BUT SHOULD BE INTERPRETED IN CONJUNCTION DIAGNOSIS. CUT-OFF POINTS HAVE BEEN ESTABLISHED BASED ON THE FOURTH PERCENTILE OF cTnI DISTRIBUTION IN A REFERENCE POPULATION, HAS BEEN CONFIRMED THE DECISION THRESHOLD FOR [place] UNIVERSAL DEFINITION OF MYOCARDIAL INFARCTION. THE UPPER WITH OTHER DIAGNOSTIC AND CLINICAL INFORMATION. Performing Lab:see noteML - [facility] LBPROF CHEM 8 (BAS METB) Reviewed date:01/01/2025 09:12:56 PM Interpretation: Performing Lab: Notes/Report: [facility] ,Zlcgsc913818-415 mmol/LPotassium4.33.5-5.1 mmol/PKghzrndw19854-918 mmol/LCarbon Vskvwzp44.521.0-32.0 mmol/LAnion Gap8.8Gfkwvru43847-562 mg/dLBlood Urea Nitrogen 26.07.0-18.0 mg/dLCreatinine1.240.70-1.30 mg/dLEstimated GFR ( Nancy>60 >=60 mL/min/1.73m 2Estimated GFR (Non- Ame56>=60 mL/min/1.73m 2BUN Creatinine Ratio21.5Tqmrmic2.28.5-10.1 mg/dLPerforming Lab:see note - [facility] LBLIVER PROFILE Reviewed date:01/01/2025 09:12:56 PM Interpretation: Performing Lab: Notes/Report: [facility] ,Bilirubin Total0.30.2-1.0 mg/dLBilirubin Direct0.10.0-0.2 mg/dLAspartate Amino Suzizphirvj1151-58 U/LAlanine Awwscxrlymjtpitn5388-01 U/LAlkaline Ghvooitqfvn503 46-116 U/LTotal Protein6.56.4-8.2 g/dLAlbumin Level3.23.4-5.0 g/dLGlobulin3.3 Albumin Globulin Ratio1.0Performing Lab:see note - [facility] LB D-DIMER Reviewed date:01/01/2025 09:12:56 PM Interpretation: Performing Lab: Notes/Report: [facility] ,D Dimer0.59<=0.59 mg/L FEU event cannot be diagnosed with [...] of the thrombus. Therefore, a thromboembolic Performing Lab:see noteML - [facility] LBBNP Reviewed date:01/01/2025 09:12:56 PM Interpretation: Performing Lab: Notes/Report: [facility] ,NT Pro B Type Natriuretic Vmmt911.0<=1800.0 pg/mLPerforming Lab:see note - [facility] LBTroponin I High Sensitivity Reviewed date:07/21/2024 10:23:30 AM Interpretation: Performing Lab: Notes/Report: [facility] ,Troponin I High Sensitivity9.24.0-76.1 pg/mL NOTE: HIGH-SENSITIVITY TROPONIN ASSAY IS NOT INTENDED TO BE CUT-OFF POINTS HAVE BEEN ESTABLISHED BASED ON THE FOURTH HAS BEEN CONFIRMED THE DECISION THRESHOLD FOR [place] 99TH PERCENTILE = 76.2 PG/ML USED IN ISOLATION BUT SHOULD BE INTERPRETED IN CONJUNCTION REFERENCE LIMIT (URL) OF TROPONIN, DEFINED THE 99TH UNIVERSAL DEFINITION OF MYOCARDIAL INFARCTION. THE UPPER DIAGNOSIS. WITH OTHER DIAGNOSTIC AND CLINICAL INFORMATION. PERCENTILE OF cTnI DISTRIBUTION IN A REFERENCE POPULATION, [facility]:07/21/2024 10:23:30 AM Interpretation: Performing Lab: Notes/Report: [facility] ,Thyroid Stimulating Hormone2.0750.358-3.740 uIU/mLPerforming Lab:see note - [facility] LBFREE T4 Reviewed date:07/21/2024 10:23:30 AM Interpretation: Performing Lab: Notes/Report: [facility] ,Free T40.770.76-1.46 ng/dLPerforming Lab:see note - [facility] UA DIP NONAUTO WO MICRO (70025) - IN OFFICE Reviewed date:12/09/2024 09:17:26 PM Interpretation: Performing Lab: Notes/Report: COLORyellowCLARITYclearGLUCOSEnegBILIRUBINnegKETONEnegSPECIFIC GRAVITY1.025BLOOD tazumCA6VBGZSPEqksfjefJLEBISMELEMOmlyODMSXQEgboCZKRXYJYB ESTERASEnegUA DIP NONAUTO WO MICRO (69249) - IN OFFICE Reviewed date:08/09/2024 10:11:05 AM Interpretation: Performing Lab: Notes/Report: COLORyellowCLARITYcloudyGLUCOSEnegBILIRUBINnegKETONEnegSPECIFIC GRAVITY1.010 KKAIYfmfZR2DEVJWVLaylETWJFTOWQNTEjomOKSLTKRbguLPSRGEQEY ESTERASEpos Reason For Referral No Information Medications Medication SIG (Take, Route, Frequency, Duration) Notes Start Date End Date Status Glucometer - (One-Touch Delica Plus) & Lancet Device - tid ActiveGlimepiride 2 MGTake 1 tablet Orally every morning and 1/2 tablet at HS; Duration: 90 daysActiveGlucose Meter Test -Use as directed once daily; Duration: 90 daysDx E11.9ActiveTriamcinolone Acetonide 0.1 %1 application Externally bid 5ActiveCrestor 5 MG1 tablet Orally Once a dayActiveAzithromycin 250 MG2 tabs today then 1 tab Orally daily; Duration: 5 days5ActiveCPAP Supplies -Mask and TubingActiveFolic Acid 1 MG1 tablet Orally Once a dayActive Doxycycline Monohydrate 100 MG1 capsule Orally bid; Duration: 10 days10/04/2024 ActiveClindamycin Phosphate 1 %1 application Externally bid05/30/2024ctiveCPAP -use as directedActiveCoreg 6.25 MG1 tablet with food Orally tid; Duration: 30 daysActiveAspirin 81 MG1 tablet Orally Once a dayActivepredniSONE 2.5 MG1 tablet with food or milk Orally Once a dayActiveAmitriptyline HCl 50 mgTAKE 1 TO 2 TABLETS BY MOUTH EVERY NIGHT; Duration: 90ActivePantoprazole Sodium 40 mgTAKE 1 TABLET BY MOUTH ONCE DAILY; Duration: 90ActiveCholecalciferol 125 MCG (5000 UT) as directed OrallyActiveCetirizine HCl 10 MGTAKE 1 TABLET BY MOUTH EVERY DAY; Duration: 90ActiveMontelukast Sodium 10 MGTAKE 1 TABLET BY MOUTH EVERY DAY; Duration: 30ActiveMiraLax 17 GM/SCOOP1 scoop mixed with 8 ounces of fluid Orally Once a day- twice as neededActiveOneTouch Ultra Blue Test -Use one strip in vitro to test glucose daily DX E11.9; Duration: 90 daysActiveOneTouch Delica Plus Sqinbs06S -Use 1 lancet to poke finger once daily DX E11.9; Duration: 90 daysActiveIrbesartan 300 MGTAKE 1 TABLET BY MOUTH EVERY DAY; Duration: 90Active Ibuprofen 600 MGTAKE 1 TABLET BY MOUTH EVERY 6 HOURS NEEDED FOR MODERATE PAIN FOR 10 DAYS Oral; Duration: 10 daysActiveMethotrexate Sodium 2.5 MGas directed Orally 3 once weeklyActive Immunizations Vaccine Route Administration Date Status Comme nts Flu, Fluad (81905) 65 yrs and older, single-dose syringe (6644-7160) IM Intramuscular 05/30/2024 Administered Social History Tobacco Use: Social History Observation Description Date Details (start date - stop date) Former Smoker NA - NA Tobacco Use/Smoking Question Answer Notes Patient is a former smoker Alcohol Screen (Audit-C) Question Answer Notes Did you have a drink containing alcohol in the p ast year? No Vfvfkn4TnmwjwnylwaffiFslvarjgVWRMT-W (Standard) Question Answer Notes Did you have a drink containing alcohol in the p ast year? No Buwlis3ViekoocjgxzscuXylkkauz Problems Problem Type SNOMED Code ICD Code Onset Dates Problem Status W/U Status Risk Notes Problem Helicobacter pylori (17339963) H elicobacter pylori [H. pylori] as the cause of diseases classified elsewhere (B96.81) ActiveconfirmedProblemOverweight (240284427)Overweight (E66.3)Activeconfirmed ProblemMigraine without aura, not refractory (330843959)Other migraine, not intractable, without status migrainosus (G43.809)ActiveconfirmedProblem Hereditary disorder of nervous system (644843739)Hereditary and idiopathic neuropathy, unspecified (G60.9)ActiveconfirmedProblemPinguecula (29644094) Pinguecula, unspecified eye (H11.159)ActiveconfirmedProblemSenile corneal changes (58138680)Arcus senilis, unspecified eye (H18.419)ActiveconfirmedProblem Sensorineural hearing loss of bilateral ears (disorder) (065219105)Sensorineural hearing loss, bilateral (H90.3)ActiveconfirmedProblemIrritable bowel syndrome with diarrhea (056477345)Irritable bowel syndrome with diarrhea (K58.0)Active confirmedProblemPolymyalgia rheumatica (02551784)Polymyalgia rheumatica (M35.3) ActiveconfirmedProblemPalpitations (50104401)Palpitations (R00.2)Activeconfirmed ProblemOther fracture of first lumbar vertebra, initial encounter for open fracture (S32.018B)ActiveconfirmedProblemHypertension (49462624)Hypertension (I10)ActiveconfirmedProblemAnxiety (37674973)Anxiety (F41.9)Activeconfirmed ProblemSleep apnea (79545960)Sleep apnea (G47.30)ActiveconfirmedProblem Osteoarthritis of knee (336564263)Osteoarthritis of knee (M17.9)Activeconfirmed ProblemHiatal hernia (80209095)Hiatal hernia (K44.9)ActiveconfirmedProblem Psoriatic arthritis (312673952)Psoriatic arthritis (L40.50)Activeconfirmed ProblemVitamin D deficiency (77812004)Vitamin D deficiency (E55.9)Active confirmedProblemHypertriglyceridemia (370338818)Hypertriglyceridemia (E78.1) ActiveconfirmedProblemDiabetes mellitus type 2 (disorder) (16058615)DM2 (diabetes mellitus, type 2) (E11.9)ActiveconfirmedProblemColitis (38241436) Colitis (K52.9)ActiveconfirmedProblemSerous otitis media (02770177)Serous otitis media (H65.90)ActiveconfirmedProblemAcute bronchitis (61335641)Acute bronchitis (J20.9)ActiveconfirmedProblemHyperuricemia (08999791)Hyperuricemia (E79.0)Active confirmedProblemAtopic dermatitis (29221219)Atopic dermatitis (L20.9)Active confirmedProblemIrritable bowel syndrome (98460144)Irritable bowel syndrome (K58.9)ActiveconfirmedProblemCellulitis (609971553)Cellulitis (L03.90)Active confirmedProblemDiabetes mellitus type 2 (81770402)Diabetes mellitus type 2, uncomplicated (E11.9)ActiveconfirmedProblemCataract (453080718)Cataract (H26.9) ActiveconfirmedProblemSinus arrhythmia (50153993)Sinus arrhythmia (I49.8)Active confirmedProblemVitreous degeneration (05860214)Vitreous degeneration (H43.819) ActiveconfirmedProblemContracture of palmar fascia (748954668)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)ActiveconfirmedProblemVenous stasis (31259705)Venous stasis (I87.8)ActiveconfirmedProblemUnsteady gait (43652724)Unsteady gait (R26.81) ActiveconfirmedProblemAcute renal failure syndrome (72755493)Acute kidney failure (N17.9)ActiveconfirmedProblemVitamin B>12< deficiency anaemia (90337145) Other vitamin B12 deficiency anemia (D51.8)ActiveconfirmedProblemNuclear senile cataract (504533376)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)ActiveconfirmedProblem Primary basal cell carcinoma of right lower limb (disorder) (6032947258718134) Basal cell carcinoma of right lower leg (C44.712)ActiveconfirmedProblemType II diabetes mellitus without complication (312129014)Diabetes mellitus type 2, diet-controlled (E11.9)ActiveconfirmedProblemCarpal tunnel syndrome (99880491) Carpal tunnel syndrome, bilateral upper limbs (G56.03)ActiveconfirmedProblem Arthralgia of temporomandibular joint (92103907)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)Active confirmedProblemDisorder of acoustic nerve (76951266)Acoustic neuroma syndrome, 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)ActiveconfirmedProblemVestibular schwannoma (067215835)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)ActiveconfirmedProblemDisease caused by Severe acute respiratory syndrome coronavirus 2 (disorder) (431217075)COVID-19 virus infection (U07.1)Activeconfirmed Vital Signs Temperature 97.9 degrees Fahrenheit 06/26/2025 Blood pressure xsautrvps45 mm Hg06/26/20255805Lkagcc41 in06/26/2025lood pressure vsjyiyqb085 mm Hg06/26/20253921Krxxvn031.0 lbs108/27/2024BMI35.14 kg/m212 Encounters Encounter Location Date Provider Diagnosis [facility] [address] [facility] [place] [address] 02/28/2025 Ruben Hoy Cellulitis L03.90 [facility] [address] [place] [address] 08/05/2024 Ruben Hoy [facility] [place] [address] 08/09[facility]2024[facility] [place] [address]/09/2024[facility] [place] [address]/Doug HoyHypertension E91DpkmrsbMontrose [facility] [place] [address]/09/2024Doug HoyDiabetes mellitus type 2, uncomplicated E11.9[facility] [place] [address]/Doug HoyFrequency R35.0[place] [address] [place] [address]/Doug Hoy Acute non-recurrent sinusitis, unspecified location J01.90 ; Hypertension I10 ; Vitamin D deficiency E55.9 ; DM2 (diabetes mellitus, type 2) E11.9 ; Nasal congestion R09.81 and Fatigue R53.83[place] [address] [place] [address]/04/2025Doug HoyHypertension I10 ; Diabetes mellitus type 2, uncomplicated E11.9 and Dyspnea R06.00[place] [address] [place] [address]/Doug HoyDysuria R30.0 ; Atopic dermatitis L20.9 and Acute UTI N39.0[place] [address] [place] [address]Doug HoyCellulitis L03.90 Assessments Encounter Date Diagnosis (ICD Code) Assessment Notes Treatment Notes Treatment Clinical Notes Section Notes 07/19/2024 Hypertension (ICD-10 - I10) 07/19/2024Diabetes mellitus type 2, uncomplicated (ICD-10 - E11.9)08/09/2024 Frequency (ICD-10 - R35.0)10/04/2024Dysuria (ICD-10 - R30.0)10/04/2024topic dermatitis (ICD-10 - L20.9)02/26/2025ellulitis (ICD-10 - L03.90)06/26/2025ute non-recurrent sinusitis, unspecified location (ICD-10 - J01.90)Rest and drink more liquids, especially water. You may use a humidifier or vaporizer to help keep the drainage moist. Bihm-bkc-iqznwsl Nasal Saline may help the stuffy and runny nose. Use Ibuprofen and or Tylenol as needed for fever, chills, body aches or pain. Children 5 years old should not be given gjqj-gtt-jbfkuse cough and cold medications such as guaifenesin and dextromethorphan. If you're over age 5, you may try cyvr-ztn-lbsttxo cold medications such as guaifenesin and dextromethorphan, [...] not improve within 3-5 days06/26/2025Hypertension (ICD-10 - I10)08/22/2024Hypertension (ICD-10 - I10)01/09/2025Diabetes mellitus type 2, uncomplicated (ICD-10 - E11.9)5Cellulitis (ICD-10 - L03.90)06/26/2025 Vitamin D deficiency (ICD-10 - E55.9)5Acute UTI (ICD-10 - N39.0) 07/19/2024Dyspnea (ICD-10 - R06.00)06/26/2025DM2 (diabetes mellitus, type 2) (ICD-10 - E11.9)06/26/2025Nasal congestion (ICD-10 - R09.81)06/26/2025Fatigue (ICD-10 - R53.83)07/19/2024OtherContinue taking medications as prescribed and monitor BP at home regularly. Plan Of Treatment Pending Test Test Name Order Date CMP (COMPLETE METABOLIC PANEL) 3 CMP (COMPLETE METABOLIC PANEL) 4 UA (URINALYSIS, COMPLETE) 06/21/2023 HEMOGLOBIN A1C (GLYCO) 05/30/2024 HEMOGLOBIN A1C (GLYCO) 10/24/2022 HEMOGLOBIN A1C (GLYCO) 06/26/2025 INSULIN, TOTAL 10/24/2022 LIPID PANEL (CHOL/TRIG/HDL/LDL) 06/26/20 25 LIPID PANEL (CHOL/TRIG/HDL/LDL) 10/25/19 23 LIPID PANEL (CHOL/TRIG/HDL/LDL) 05/30/20 24 CBC WITH DIFF (EXP 05/2025) 05/30/2024 CBC WITH DIFF (EXP 05/2025) 10/24/2022 PSA, PROSTATE-SPECIFIC ANTIGEN 3 PSA, PROSTATE-SPECIFIC ANTIGEN 3 URIC ACID 05/30/2024 URIC ACID 10/24/2022 URIC ACID 06/26/2025 Urinalysis Microscopic 06/21/2023 URINE CULTURE 12/12/2022 URINALYSIS 12/12/2022 PSA, TOTAL 05/30/2024 High Sensitivity Troponin 07/19/2024 CT Sinus w/o Contrast 09/21/2023 CULTURE URINE 06/21/2023 THYROID PROFILE WITH TSH 07/19/2024 URINE MICROSCOPIC ONLY 12/12/2022 VC VENOUS REFLUX SANDY LMT 05/30/2024 THYROID PANEL (T4/TSH/FREE T3) 3 THYROID PANEL (T4/TSH/FREE T3) 5 THYROID PANEL (T4/TSH/FREE T3) 4 THYROID PANEL (T4/TSH/FREE T3) 4 PSA, SCREENING 06/26/2025 CMP (COMP MET DOUGLAS) w/eGFR CKD-EPI 2024 CBC WITH DIFF 06/26/2025 Future Test Test Name Order Date THYROID PANEL (T4/TSH/FREE T3) 5 Insurance Providers Payer Name Payer Address Payer Phone Subscriber Number Group Number Insured Name Patient Relationship to Insured Coverage Start Date Coverage End Date [place] [address] [place] [address] [id number] Asia Coburn - patient is the [id number] 2006HUMANA SUPPLEMENTPO [address] [address] [place], [place] [id number] [place] - patient is the [id number] 2018 Medications Administered Medication Instructions Date of Administration Dosage Notes Cyanocobalamin mL1 mqDthdnmphcfecbf33/18/20251 mL Medical (General) History Medical History History ICD [...] K52.9 Surgical History Surgery Date(Month/Year) Heart Cath ColonoscopyRotator Cuff Surgery- LeftHemorrhoidectomyKnee Arthroscopy- Left Breast Mass excisionKyphoplasty- 04/05/23 Dr. Gentileospitalization History Reason Date(Month/Year) compression fracture L1 03/01
[2025-06-27 10:13] LABS: Hematocrit 41.0 % (42.0-54.0); Hemoglobin 13.7 g/dL (14.0-18.0); Immature Granulocytes Abs Auto 0.05 10^3/uL (0.00-0.03); Immature Granulocytes Pct Auto 0.4 % (0.0-0.5); Lymphocytes Absolute Auto 1.4 10^3/uL (1.2-3.8); Mean Corpuscular HGB Conc 33.4 g/dL (29.9-35.2); Mean Corpuscular Hemoglobin 31.9 pg (25.9-34.0); Mean Corpuscular Volume 95.3 fL (80.0-94.0); Platelet Count 175 10^3/uL (150-450); Red Blood Count 4.30 10^6/uL (4.70-6.10); White Blood Count 11.5 10^3/uL (4.0-11.0)
[2025-06-27 13:45] LABS: Alanine Aminotransferase 21 U/L (16-63); Albumin Globulin Ratio 1.0; Albumin Level 3.4 g/dL (3.4-5.0); Alkaline Phosphatase 93 U/L (46-116); Anion Gap 4.1; Aspartate Amino Transferase 15 U/L (15-37); Blood Urea Nitrogen 18.0 mg/dL (7.0-18.0); Calcium 9.3 mg/dL (8.5-10.1); Carbon Dioxide 31.7 mmol/L (21.0-32.0); Chloride 103 mmol/L (98-107); Cholesterol 161 mg/dL (<=200); Estimated GFR (African America >60 (>=60 mL/min/1.73m^2); Estimated GFR (Non-African Ame 59 (>=60 mL/min/1.73m^2); Free T3 2.08 pg/mL (2.18-3.98); Globulin 3.4 g/dL; Glucose 121 mg/dL (74-106); HDL Cholesterol 53 mg/dL (40-60); Potassium 3.8 mmol/L (3.5-5.1); Sodium 135 mmol/L (136-145); Thyroid Stimulating Hormone 2.319 uIU/mL (0.358-3.740); Total Protein 6.8 g/dL (6.4-8.2); Triglycerides 84 mg/dL (<=150); Uric Acid 5.4 mg/dL (3.5-7.2); VLDL CHOLESTEROL 16.8 mg/dL
== END 2025-06-27 09:44 | disposition home or self-care (01) ==
LOC: LAB 09:48
PROVIDERS: PCP Family Medicine; Visit Provider Family Medicine
DX: E55.9 Vitamin D deficiency, unspecified (principal); E11.9 Type 2 diabetes mellitus without complications; I10 Essential (primary) hypertension; E78.5 Hyperlipidemia, unspecified; M10.9 Gout, unspecified; E03.9 Hypothyroidism, unspecified; Z12.5 Encounter for screening for malignant neoplasm of prostate; D50.9 Iron deficiency anemia, unspecified
CPT/HCPCS: 36415; 80053; 80061; 83036; 84436; 84443; 84481; 84550; 85025; G0103

== ENCOUNTER 2025-06-29 17:42 | Emergency (ER) | payer MEDICARE, OTHER, SELFPAY ==
--- OUTSIDE RECORDS SUMMARY | 2025-06-25 11:00 | XMS_ITS | Encounter Summary ---
Author Organization [facility] Address [address] [facility] [address] Care Team Providers Care Consulting Application Engineer Name Role Phone Roman Davdi MD Primary Care Provider [phone] Reason for Visit * ReasonCommentsDiabetic Eye Exam Encounter Details DateTypeDepartmentCare Team (Latest Contact Info)Okmxpljriru41/17/2025 11:00 AM ESTOffice Visit [facility] [address] [place] [phone] Tariq Perez DO [address] [place] [address] 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 degeneration [...] InformationValueDate RecordedSex Assigned at BirthNot on fileLegal JiqHwml3609/21/2022 6:46 PM EDTGender IdentityNot on fileSexual OrientationNot on filedocumented as of this encounter Progress Notes * Tariq Perez DO - 06/25/2025 11:00 AM EST Images from the original note were not included. Assessment/Plan Diagnoses and all orders for this visit: Type 2 diabetes mellitus without complication, with long-term current use of insulin ([facility]) - Diabetes Mellitus without sign of [...] Plan of Treatment DateTypeDepartmentCare Team (Latest Contact Info)Zxsxvudizbi96/14/2026 1:00 PM ESTOffice Visit [facility] [address] [place] [address] Yudy Montes MD [address] [place] [address] 07/01/2026 10:30 AM ESTOffice Visit [facility] [address] [place] [phone] Tariq Perez DO [address] [place] [address] documented as of this encounter Procedures Procedure NamePriorityDate/TimeAssociated DiagnosisCommentsOCT, RETINA - OU - BOTH AVBVGsfonfx93/17/2025 12:10 PM EST Early dry stage nonexudative [...] complication, with long-term current use of insulin ([facility]) Dry eyes Unspecified tear film insufficiency Blepharitis of upper and lower eyelids of both eyes, unspecified type documented in this encounter Care Teams Team MemberRelationshipSpecialtyStart DateEnd Roman David MD [address] [place] [address] PCP - GeneralFamily Medicine10/20/23documented as of this encounter
--- OUTSIDE RECORDS SUMMARY | 2025-06-26 08:45 | XMS_ITS ---
Author Organization The [facility] in [place] Address [address] [place] [address] Care Team Providers Care Ship Fastener Name Role Phone Ruben David Primary Care Provider [phone] Allergies Allergen (clinical drug ingredient) Drug/Non Drug [...] DX E11.9; Duration: 90 daysActiveOneTouch Delica Plus Ecrwmb31H - Use 1 lancet to poke finger [...] 06/26/2025 Encounters Encounter Location Date Provider Diagnosis [address] [place] [address] 06/26/2025 Ruben David Acute non-recurrent sinusitis, unspecified [...] vaporizer to help keep the drainage moist. Evyx-hea-kgkzagk Nasal Saline may help the stuffy and runny nose. Use Ibuprofen and or Tylenol as needed for fever, chills, body aches or pain. Children 5 years old should not be given nnua-uci-knzkdcg cough and cold medications such as guaifenesin and dextromethorphan. If you're over age 5, you may try jiks-ppo-ryutfis cold medications such as guaifenesin and dextromethorphan, [...] vaporizer to help keep the drainage moist. Ijxn-mdm-oxzeiln Nasal Saline may help the stuffy and runny nose. Use Ibuprofen and or Tylenol as needed for fever, chills, body aches or pain. Children 5 years old should not be given slhc-zce-wyerfqo cough and cold medications such as guaifenesin and dextromethorphan. If you're over age 5, you may try ikjf-tbk-rqovxbw cold medications such as guaifenesin and dextromethorphan, [...] Travis COBURN GDOB: [birth year] (84 yo M)Acc No.[id number]:06/26/2025 Progress Note Patient: Travis SHEIKH :?Roman Mckee Joann ([facility]), MDDOB:1940???Age: 84 Y???Sex:MaleDate:06/26/2025Phone:[phone]:[address], [place], [id number] In:01:39 PM ESTCheck Out:02:35 PM EST Subjective: * Chief Complaints: * S ore throat- said that he is getting over a cold nowPatient wants his yearly labs done and a yearly appointment todayHe also wants a B12 injection * HPI: ???Sinusitis:? The patient complains of symptoms of sinus infection. The symptoms have been present for 1-2 days. The symptoms are moderate. Symptomatic treatment has included OTC medication. Associated symptoms include headache, facial pain, runny nose, nasal congestion. * ROS: ???Skin:?Rash?denies.?ENT:?Comments?See HPI for details.?Cardiovascular:?Edema?denies.?Palpitations?denies.?Respiratory:?Chest pain?denies.?Cough?denies.?Wheezing denies.?Gastrointestinal:?Abdominal pain?denies.?Nausea?denies.?Vomiting?denies.? * Active Problem List B96.81 Helicobacter pylori [H. pylori] as the cause of diseases classified elsewhere Modified On:10/20/2022 Status:binhjotmrS74.3Overweight Modified On:10/20/2022 Status:szjcdttqzY51.809Other migraine, not intractable, without status migrainosus Modified On:10/20/2022 Status:amwdorjnqO50.9Hereditary and idiopathic neuropathy, unspecified Modified On:10/20/2022 Status:hyyowjzvaQ12.159Pinguecula, unspecified eye Modified On:10/20/2022 Status:fohfjiiopE21.419Arcus senilis, unspecified eye Modified On:10/20/2022 Status:phfhgmjtwC80.0Irritable bowel syndrome with diarrhea Modified On:10/20/2022 Status:hgdkewlgcP12.3Polymyalgia rheumatica Modified On:04/05/2023 Status:ofobcjwmvZ35.2Palpitations Modified On:10/20/2022 Status:eqanrqbcnH93Vfhbbzhsdorf Modified On:10/02/2023U Status:psepmoiefX61.9Anxiety Modified On:10/20/2022 Status:ymexzsqdqA13.30Sleep apnea Modified On:08/31/2023U Status:gqaupokupP36.9Osteoarthritis of knee Modified On:10/20/2022U Status:aqagdocxaY44.9Hiatal hernia Modified On:10/20/2022U Status:geysyksslY70.50Psoriatic arthritis Modified On:11/22/2022U Status:xpyubdfctS48.9Vitamin D deficiency Modified On:10/20/2022 Status:bjgspwuufR99.1Hypertriglyceridemia Modified On:10/20/2022U Status:lhdwekskxG88.9Colitis Modified On:10/20/2022U Status:unaevdrhpM65.9Acute bronchitis Modified On:07/13/2023U Status:aslqxzrezF62.0Hyperuricemia Modified On:10/20/2022 Status:ydphgljwtD56.9Irritable bowel syndrome Modified On:04/25/2023 Status:bjxefxasdE68.9Diabetes mellitus type 2, uncomplicated Modified On:08/31/2023 Status:tkpksirqwZ76.8Sinus arrhythmia Modified On:10/20/2022 Status:miwzquzmgG88.819Vitreous degeneration Modified On:10/20/2022 Status:exxllytaeX45.0Dupuytren's disease Modified On:10/20/2022 Status:mufynrmxcU63.10Senile nuclear sclerosis Modified On:10/20/2022 Status:emnowhpzqC46.9Diabetes mellitus type 2, diet-controlled Modified On:10/20/2022 Status:ctsvxtjqwM62.03Carpal tunnel syndrome, bilateral upper limbs Modified On:10/20/2022U Status:scipdvzhrS40.629TMJ syndrome Modified On:10/20/2022U Status:ejgswjiiwA87.1COVID-19 virus infection Modified On:10/20/2022 Status:welphzuqzV35.8Other vitamin B12 deficiency anemia Modified On:11/22/2022U Status:eddmrglkyN70.018BOther fracture of first lumbar vertebra, initial encounter for open fracture Modified On:04/25/2023U Status:abyroqbfeC42.9DM2 (diabetes mellitus, type 2) Modified On:04/05/2023U Status:zgpyqkmfcP86.9Acute kidney failure Modified On:12/06/2023W/U Status:bsdqsnywqF63.712Basal cell carcinoma of right lower leg Modified On:08/30/2023 Status:ztwjjvjtsQ38.90Serous otitis media Modified On:10/20/2023 Status:dxauixrajN74.81Unsteady gait Modified On:10/12/2023 Status:ktarhkaczE87.3Sensorineural hearing loss, bilateral Modified On:12/28/2023 Status:unsxjlzxrI94.6K9Eoojmpfp neuroma syndrome, right Modified On:02/08/2024U Status:pqvulxzvjH50.8Venous stasis Modified On:05/30/2024 Status:wpxqhyvobL78.3Vestibular schwannoma Modified On:05/30/2024 Status:mfvcgkrpqG28.9Cataract Modified On:06/26/2024 Status:lzskwkmgvK24.9Atopic dermatitis Modified On:10/04/2024U Status:ycwvyatcuD85.90Cellulitis Modified On:02/26/2025 Status:confirmed * Medical History: * [...] Use/Smoking?Patient is a?former smoker * Medications: T akingAmitriptyline HCl 50 [...] CPAP - use as directed CPAP Supplies - - Mask and Tubing Crestor(Rosuvastatin Calcium) 5 MG [...] BY MOUTH EVERY DAY OneTouch Delica Plus Pzfath50G(Lancets) - Miscellaneous Use 1 lancet to poke finger once daily DX E11.9 OneTouch Ultra Blue Test(Glucose Blood) - Strip Use one strip in vitro to test glucose daily DX E11.9 Pantoprazole Sodium 40 mg Tablet Delayed Release TAKE 1 TABLET BY MOUTH ONCE DAILY predniSONE 2.5 MG Tablet 1 tablet with food or milk Orally Once a day Triamcinolone Acetonide 0.1 % Cream 1 application Externally bid Taking Amitriptyline HCl 50 mg Tablet TAKE 1 [...] - use as directed Taking CPAP Supplies - - Mask and Tubing Taking Crestor(Rosuvastatin Calcium) 5 [...] MOUTH EVERY DAY Taking OneTouch Delica Plus Olnbws69R(Lancets) - Miscellaneous Use 1 lancet to poke finger once daily DX E11.9 Taking OneTouch Ultra Blue Test(Glucose Blood) - Strip Use one strip in vitro to test glucose daily DX E11.9 Taking Pantoprazole Sodium 40 mg Tablet Delayed Release TAKE 1 TABLET BY MOUTH ONCE DAILY Taking predniSONE 2.5 MG Tablet 1 tablet with food or milk Orally Once a day Taking Triamcinolone Acetonide 0.1 % Cream 1 application Externally bid DiscontinuedlevoFLOXacin 750 MG Tablet 1 tablet Orally Once a day Medication List reviewed and reconciled with the patientDiscontinued levoFLOXacin 750 MG Tablet 1 tablet Orally Once a day Medication List reviewed and reconciled with the patient * Allergies: P enicillin: anaphylaxis - Criticality HighSulfa Antibiotics: unknown - Criticality Highno[Allergies Verified] Objective: * Vitals: W t:238.0lbs, Ht: 69 [...] vaporizer to help keep the drainage moist. Gkmw-nro-mzlhrri Nasal Saline may help the stuffy and runny nose. Use Ibuprofen and or Tylenol as needed for fever, chills, body aches or pain. Children 5 years old should notbe given yfks-qzy-zqgszfx cough and cold medications such as guaifenesin and dextromethorphan. If you're over age 5, you may try ixwo-xdv-chifrdr cold medications such as guaifenesin and dextromethorphan, [...] on right deltoid (Fatigue) * Procedure Codes: [phone] THERAP.INJ. OF MED. INTRAMUSCULAR OR [id number] VITAMIN B-12 < 1000 MCG * Preventive Medicine: ??Screenings/Counseling:?BMI ACTION PLAN?Above Normal BMI Follow-up?Dietary management education, guidance, and counseling * Follow Up: 3 -5 days if not improving * * Sign off status: CompletedVisit Status:?CHK (Check Out) true * Provider: Ralf David ([facility])MD Date: 1 08/27/2024 Generated for Printing/Faxing/eTransmitting on:?06/29/2025 06:52 PM EST History and Physical Notes * Examination [...]
[2025-06-29 17:49] VITALS: BP 149/69; PULSE 87; TEMP 37.4; O2SAT 95; BMI 35.3
[2025-06-29 18:30] LABS: SARS-CoV-2 Ag POSITIVE (NEGATIVE)
--- NOTE | 2025-06-29 18:53 | ED_ITS ---
HPI - URI/Sore Throat General Chief Complaint: Upper Respiratory Infection Stated Complaint: Upper Respiratory Infection Time Seen by Provider: 06/29/25 18:39 Source: patient History of Present Illness HPI Narrative: Patient is a 84-year-old male presents to the ER with concerns of persistent cough. Patient states he is feeling better overall but cough is bothering him. Semiproductive. He denies feeling short of breath. He reports symptoms starting with bodyaches earlier in the week, he was seen by his family doctor with outpatient blood work and placed on Zithromax prophylactically with a concern of possible bronchitis or early pneumonia. He has a pertinent history of psoriatic arthritis and another autoimmune condition for which she takes 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 and 5 mg of prednisone daily. He denies any fever for the past 2 days and complains of chest soreness with coughing that has not yet improved with the antibiotic. His spouse present at bedside states she had a similar upper respiratory symptom last week with symptom resolution. Patient denies any chest pain or dyspnea on exertion. He is readily speaking in full sentences at bedside. Patient's vitals are stable. I just need something for the cough. He denies any vomiting or diarrhea MD elicited complaint: Reports cough Onset (ago): day(s) (4) Consistency: Reports improved Severity: mild Exacerbating factors: Reports nothing Relieving factors: Reports nothing Context: Reports sick contacts (Spouse.) Associated symptoms: Reports fever (Earlier in the week, resolved.), headache (Earlier in the week, resolved), nasal congestion (Earlier in the week, resolved) and cough; Denies stiff neck, chest pain or shortness of breath Related Data Home Medications ?Medication ?Instructions ?Recorded ?Confirmed aspirin 81 mg tablet,delayed 81 mg PO BID 02/28/23 release (Bobo Low Dose Aspirin) folic acid 1 mg tablet 1 mg PO DAILY 02/28/2312/31 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 sodium 2.5 mg tablet 12.5 mg PO .weekly 0 02/28/23 12/31/24 pantoprazole 40 mg tablet,delayed 40 mg PO DAILY 02/2812/31/24 release prednisone 2.5 mg tablet 5 mg PO QAM 02/28/23 5 prednisone 2.5 mg tablet 2.5 mg PO QPM 03/05/2303/05 rosuvastatin 5 mg tablet (Crestor) 5 mg PO DAILY 03/0512/31/24 amitriptyline 25 mg tablet 25 mg PO DAILY 12/31/24 blood sugar diagnostic (OneTouch 12/31/24 12/31/24 Ultra Test strips) carvedilol 6.25 mg tablet mg 12/31/24 cetirizine 10 mg tablet mg 12/31/24 glimepiride 1 mg tablet mg 12/31/24 irbesartan 300 mg tablet mg 12/31/24 montelukast 10 mg tablet mg 12/31/24 rosuvastatin 10 mg tablet mg 12/31/24 Previous Rx's ?Medication ?Instructions ?Recorded benzonatate 200 mg capsule 200 mg PO TID PRN cough #15 caps 06/29/25 Allergies Allergy/AdvReac Type Severity Reaction Status Date / Time PCN AdvReac Intermediate unknown Uncoded 12/31/24 21:43 Review of Systems ROS Constitutional Reports: fever; Denies: chills Eyes Denies: change in vision Ears, nose, mouth, and throat Reports: nasal congestion and post nasal drip; Denies: throat pain or neck pain Cardiovascular Denies: chest pain, palpitations, edema, swelling of feet/ankles, shortness of breath with exertion, shortness of breath when lying down or leg pain with exertion Respiratory Reports: cough and chest congestion; Denies: shortness of breath, wheezing, pain on inspiration or coughing up blood Gastrointestinal Denies: abdominal pain, nausea, vomiting or diarrhea Genitourinary Denies: painful urination Musculoskeletal Denies: back pain, neck pain or extremity pain Integumentary/Breast Denies: rash Neurological Denies: numbness in extremities or weakness in extremities [facility] Medical History Psoriatic arthritis ?L40.50 - Arthropathic psoriasis, unspecified (ICD-10) Polymyalgia rheumatica ?M35.3 - Polymyalgia rheumatica (ICD-10) IBS (irritable bowel syndrome) ?K58.9 - 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 (ICD-10) Kidney stone ?N20.0 - Calculus of kidney (ICD-10) Rotator cuff arthropathy of left shoulder ?M12.812 - Other specific arthropathies, not elsewhere classified, left shoulder (ICD-10) Intractable back pain ?M54.9 - Dorsalgia, unspecified (ICD-10) Ambulatory dysfunction (02/28/23) ?R26.2 - Difficulty in walking, not elsewhere classified (ICD-10) Hypertension ?I10 - Essential (primary) hypertension (ICD-10) Diabetes ?E11.9 - Type 2 diabetes mellitus without complications (ICD-10) Surgical History H/O colonoscopy ?Z98.890 - Other specified postprocedural states (ICD-10) Family History Father Family history of CHF (congestive heart failure) Family history of cancer Family history of hypertension Family history of myocardial infarction Mother Family history of hypertension Social History Smoking status: Never smoker Second hand tobacco smoke exposure: No Non-prescribed substance use: denies use Previous occupational history: retired Known occupational exposures/hazards: No Highest level of school completed/degree received: high school graduate Do you want help with school or training: No Are you now , , , , never or living with a partner: In a typical week, how many times do you talk on the telephone with family, friends, or neighbors: twice per week How often do you get together with friends or relatives: once per week How often do you attend sabianist or mu-ism services: 4 or more times per year Do you belong to any clubs or organizations such as sabianist groups unions, fraternal or athletic groups, or school groups: yes Total score: 4 Score interpretation: A score of greater than or equal to 2 indicates the lowest level of social isolation. Little interest or pleasure in doing things: not at all Feeling down, depressed, or hopeless: not at all Feel stressed/tense/nervous/anxious/difficulty sleeping: not at all Due to disability, difficulty making decisions: No Do you think of yourself as: straight/heterosexual Gender Identity: male Exam Narrative Exam Narrative: Nurse's notes and vital signs reviewed and patient is not hypoxic. General: The patient appears well and in no apparent distress. Patient is resting comfortably in cart. Patient speaking in full sentences and is very talkative with a slightly laryngitic voice. Swallowing secretions without difficulty. Skin: Warm, dry, no pallor noted. Head: Normocephalic, atraumatic Neck: Supple, trachea midline, no tenderness, no lymphadenopathy Ears, nose, mouth, and throat: TMs are clear, normal light reflex, oral mucosa is moist, no posterior oropharynx erythema or hypertrophy, uvula is midline Cardiovascular: Regular rate and rhythm Respiratory: Patient is in no distress, no accessory muscle use, lungs are clear to auscultation, no wheezing, rales, or rhonchi. Chest wall: No tenderness Musculoskeletal: Normal ROM, no tenderness, no swelling GI: Normal bowel sounds, no tenderness to palpation, no masses appreciated. No rebound, guarding, or rigidity noted. Neurological: Alert and oriented ?4 Psychiatric: Cooperative Constitutional Vital Signs, click to edit/add: Last Vital Signs Temp 99.3 F 06/29/25 17:49 Pulse 87 06/29/25 17:49 Resp 18 06/29/25 17:49 BP 149/69 H 06/29/25 17:49 Pulse Ox 95 06/29/25 17:49 O2 Del Method Room Air 06/29/25 17:49 Course Vital Signs Vital signs: Vital Signs Temperature 99.3 F 06/29/25 17:49 Pulse Rate 87 06/29/25 17:49 Respiratory Rate 18 06/29/25 17:49 Blood Pressure 149/69 H 06/29/25 17:49 Pulse Oximetry 95 06/29/25 17:49 Oxygen Delivery Method Room Air 06/29/25 17:49 Temperature 99.3 F 06/29/25 17:49 Pulse Rate 87 06/29/25 17:49 Respiratory Rate 18 06/29/25 17:49 Blood Pressure 149/69 H 06/29/25 17:49 Pulse Oximetry 95 06/29/25 17:49 Oxygen Delivery Method Room Air 06/29/25 17:49 MDM - URI/Sore Throat MDM Narrative Medical decision making narrative: Patient had COVID and influenza swabs performed in the triage pending being brought back to a room from the waiting room. Patient wearing a mask along with his spouse. He denies any recent fever and states the cough is his main complaint. He denies feeling short of breath or having dyspnea on exertion. He admits that overall his symptoms are significantly improved from what he was experiencing earlier in the week. We discussed that his influenza test was negative but his COVID test was positive consistent with his likely viral upper respiratory symptoms. We discussed that it is good he started his azithromycin as he is somewhat immune compromised and at risk for other bacterial processes. Patient offered chest x-ray and repeat lab work, but declined. Patient notes that he is feeling better and just simply wants something to help settle his cough as he feels that he is continuing to improve with symptoms. Patient verbalized a plan to contact his PCP if needed or return to the ER if symptoms begin to worsen and do not continue to show clinical resolution. Patient's spouse at the bedside thankful stating that she had upper respiratory symptoms last week but will be wearing a mask to prevent spread with contact precautions discussed in layman's terms. Patient was given a Tessalon Perle here for his cough and a prescription was sent to his pharmacy. Patient states he has been through 4 COVID vaccines and declines the need for further evaluation at this time. We discussed that he is not hypoxic, tachycardic or with abnormal lung sounds. Patient notes that he is feeling much better than earlier in the week and feels better knowing that the COVID test was positive. He declines a Paxlovid prescription as he is on the cusp of 5 days of symptom onset, stating that he is concerned of potential complications with his other daily medications. The patient is to followup with primary care physician in next 2-3 days or to return to the emergency department should any of the signs or symptoms worsen or new symptoms develop. Patient had questions answered. The patient agrees with the following Diagnosis and Treatment plan and the patient will be discharged home. Differential Diagnosis Differential diagnosis: Likely upper respiratory infection and bronchitis Medical Records Attestation: I reviewed the patient's medical records. Lab Data Labs: Lab Results 06/29/25 Range/Units 17:55 Influenza Type A Ag Negative Influenza Type B Ag Negative SARS-CoV-2 Ag (CV2AG) Positive A (NEGATIVE) Discharge Plan Discharge Chief Complaint: Upper Respiratory Infection Clinical Impression: COVID-19, Upper respiratory infection Patient Disposition: Home, Self-Care Time of Disposition Decision: 18:54 Condition: Good Prescriptions / Home Meds: New benzonatate 200 mg capsule 200 mg PO TID PRN (Reason: cough) Qty: 15 0RF No Action carvedilol 6.25 mg tablet cetirizine 10 mg tablet (DME) OneTouch Ultra Test Strip MISCELLANEOUS glimepiride 1 mg tablet montelukast 10 mg tablet irbesartan 300 mg tablet rosuvastatin 10 mg tablet amitriptyline 25 mg tablet 25 mg PO DAILY 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 sodium 2.5 mg tablet 12.5 mg PO .weekly Patient Comments: takes on monday pantoprazole 40 mg tablet,delayed release (DR/EC) 40 mg PO DAILY prednisone 2.5 mg tablet 5 mg PO QAM aspirin [Bobo Low Dose Aspirin] 81 mg tablet,delayed release (DR/EC) 81 mg PO BID folic acid 1 mg tablet 1 mg PO DAILY prednisone 2.5 mg tablet 2.5 mg PO QPM rosuvastatin [Crestor] 5 mg tablet 5 mg PO DAILY Rx Instructions: On tuesdays and monday Print Language: Citizen [place] Instructions: COVID-19 (Coronavirus Disease 2019) (ED), COVID-19: Slow the Coronavirus Spread (ED) Referrals: Roman David MD [Primary Care Provider, Family Practice] - 1 week Discharge Date/Time: 06/29/25 19:20
--- OUTSIDE RECORDS SUMMARY | 2025-06-29 18:53 | XMS_ITS | Patient Health Record ---
Author Organization [facility] in [place] Address [address] [place] [address] Care Team Providers Care Chief Concierge Name Role Phone Ruben David Primary Care Provider [phone] Allergies Allergen (clinical drug ingredient) Drug/Non Drug Allergy documented on EMR Reaction Allergy Type Onset Date Status Substance with sulfonamide s tructure and antibacterial mechanism of action (substance) Sulfa Antibiotics unknown Drug Allergy ActivePenicillinanaphylaxisDrug AllergyActive Results Component Value Reference Range Notes BNP Reviewed date:07/21/2024 10:23:30 AM Interpretation: Performing Lab: Notes/Report: [facility] , NT Pro B Type Natriuretic Pept 174.0 <=1800.0 p g/mL Performing Lab:see noteML - [facility] LBCBC AUTO DIFF Reviewed date:07/21/2024 10:23:30 AM Interpretation: Performing Lab: Notes/Report: [facility] ,White Blood Count9.74.0-11.0 10 3/uLRed Blood Count4.564.70-6.10 10 6/uL Mgjfunlzip02.514.0-18.0 g/wDQyumacwzlg64.142.0-54.0 %Mean Corpuscular Nyyxgz04.5 80.0-94.0 fLMean Corpuscular Cfvmjbtmkh60.825.9-34.0 pgMean Corpuscular HGB Conc 33.629.9-35.2 g/dLRed Cell Distribution Width13.311.0-15.0 %Platelet Tfmas917 150-450 10 3/uLMean Platelet Pzpnhn17.89.5-13.5 fLNeutrophils Percent Auto73.3 43.0-75.0 %Lymphocytes Percent Auto16.920.5-60.0 %Monocytes Percent Auto7.31.7- 12.0 %Eosinophils Percent Auto1.40.9-7.0 %Basophils Percent Auto0.50.2-2.0 % Immature Granulocytes Pct Auto0.60.0-0.5 %Neutrophils Absolute Auto7.11.4-6.5 10 3/uLLymphocytes Absolute Auto1.71.2-3.8 10 3/uLMonocytes Absolute Auto0.70.3-0.8 10 3/uLEosinophils Absolute Auto0.10.0-0.7 10 3/uLBasophils Absolute Auto0.10.0- 0.1 10 3/uLImmature Granulocytes Abs Auto0.060.00-0.03 10 3/uLPerforming Lab:see noteML - [facility] LBPROF 14(COMP METB) Reviewed date:07/21/2024 10:23:30 AM Interpretation: Performing Lab: Notes/Report: [facility] ,Wgohju087968-013 mmol/LPotassium3.93.5-5.1 mmol/CQynnjfoq17372-994 mmol/LCarbon Mqhbzay42.821.0-32.0 mmol/LAnion Gap10.2Onxpmji61824-050 mg/dLBlood Urea Psocknsc81.07.0-18.0 mg/dLCreatinine1.230.70-1.30 mg/dLEstimated GFR ( Nancy>60>=60 mL/min/1.73m 2Estimated GFR (Non- Ame56>=60 mL/min/1.73m 2 BUN Creatinine Ratio10.6Atsajkv9.08.5-10.1 mg/dLBilirubin Total0.60.2-1.0 mg/dL Aspartate Amino Gdpzrlqvjnm4915-84 U/LAlanine Abutjubvuegfbnuj3058-02 U/L Alkaline Fjrtqfbnchk98891-586 U/LTotal Protein7.26.4-8.2 g/dLAlbumin Level3.7 3.4-5.0 g/dLGlobulin3.5Albumin Globulin Ratio1.1Performing Lab:see noteML - [facility] LBRENAL FUNCTION PANEL Reviewed date:09/25/2024 07:55:24 PM Interpretation: Performing Lab: Notes/Report: [facility] ,Ydrrvv916473-754 mmol/LPotassium4.23.5-5.1 mmol/YNuxhgdai26901-977 mmol/LCarbon Gpyqjaw04.821.0-32.0 mmol/LAnion Gap9.3Svgyrei92434-054 mg/dLBlood Urea Nitrogen 15.07.0-18.0 mg/dLCreatinine1.310.70-1.30 mg/dLEstimated GFR ( Nancy>60 >=60 mL/min/1.73m 2Estimated GFR (Non- Ame52>=60 mL/min/1.73m 2BUN Creatinine Ratio11.6Cdfwwvc5.98.5-10.1 mg/dLPhosphorus2.82.6-4.7 mg/dLAlbumin Level3.63.4-5.0 g/dLPerforming Lab:see note - [facility] LBLIPID PROFILE Reviewed date:12/09/2024 09:17:26 PM Interpretation: Performing Lab: Notes/Report: [facility] ,Ydxftwzztzwwt356<=150 mg/aGEneebzngovz220<=200 mg/dLHDL Qanmgvccesx4629-64 mg/dL > or =60 mg/dl - LOW CARDIOVASCULAR RISK <40 mg/dl - HIGH CARDIOVASCULAR RISK LDL Cholesterol Ixfhspvsdh637.0 <100 mg/dl OPTIMAL 100-129 mg/dl NEAR OR ABOVE OPTIMAL 130-159 mg/dl BORDERLINE HIGH 160-189 mg/dl HIGH >190 mg/dl VERY HIGH VLDL NQCIAPXLDEG54.0Chol HDL Ratio3.7 3.3 - 4.4 LOW RISK 4.4 - 7.1 AVERAGE RISK 7.1 - 11.0 MODERATE RISK >11.0 HIGH RISK Performing Lab:see note - [facility] LBBNP Reviewed date:01/01/2025 09:12:56 PM Interpretation: Performing Lab: Notes/Report: [facility] ,NT Pro B Type Natriuretic Tkpg093.0<=1800.0 pg/mLPerforming Lab:see edgardoKindred [facility] LBCBC AUTO DIFF Reviewed date:01/01/2025 09:12:56 PM Interpretation: Performing Lab: Notes/Report: [facility] ,White Blood Count9.54.0-11.0 10 3/uLRed Blood Count4.164.70-6.10 10 6/uL Oqydkfhrnv10.114.0-18.0 g/kIDnrkhyfdvi17.742.0-54.0 %Mean Corpuscular Bsthti07.0 80.0-94.0 fLMean Corpuscular Urbcaycsrv76.525.9-34.0 pgMean Corpuscular HGB Conc 33.929.9-35.2 g/dLRed Cell Distribution Width13.911.0-15.0 %Platelet Jpqbs537 150-450 10 3/uLMean Platelet Xmvwuk98.99.5-13.5 fLNeutrophils Percent Auto72.6 43.0-75.0 %Lymphocytes Percent Auto18.020.5-60.0 %Monocytes Percent Auto7.61.7- 12.0 %Eosinophils Percent Auto0.80.9-7.0 %Basophils Percent Auto0.40.2-2.0 % Immature Granulocytes Pct Auto0.60.0-0.5 %Neutrophils Absolute Auto6.91.4-6.5 10 3/uLLymphocytes Absolute Auto1.71.2-3.8 10 3/uLMonocytes Absolute Auto0.70.3-0.8 10 3/uLEosinophils Absolute Auto0.10.0-0.7 10 3/uLBasophils Absolute Auto0.00.0- 0.1 10 3/uLImmature Granulocytes Abs Auto0.060.00-0.03 10 3/uLPerforming Lab:see noteML - [facility] LBD-DIMER Reviewed date:01/01/2025 09:12:56 PM Interpretation: Performing Lab: Notes/Report: [facility] ,D Dimer0.59<=0.59 mg/L FEU Increases in D-Dimer concentration observed with thromboembolic events can be variable due to localization, size, and age of the thrombus. Therefore, a thromboembolic event cannot be diagnosed with certainty on the basis of the reference range. D-Dimers may also be elevated for a variety of disorders including advanced age, , coronary disease, cancer, liver disease, infection, inflammation, hematoma, DIC, trauma, post-surgery, diabetes, thrombolytic or anticoagulant therapy, stress, and generalized hospitalization. Performing Lab:see noteML - [facility] LBLIVER PROFILE Reviewed date:01/01/2025 09:12:56 PM Interpretation: Performing Lab: Notes/Report: [facility] ,Bilirubin Total0.30.2-1.0 mg/dLBilirubin Direct0.10.0-0.2 mg/dLAspartate Amino Xqprtumtptv5335-02 U/LAlanine Iuhdcqyutftncgus2583-41 U/LAlkaline Nfccxwvsulx797 46-116 U/LTotal Protein6.56.4-8.2 g/dLAlbumin Level3.23.4-5.0 g/dLGlobulin3.3 Albumin Globulin Ratio1.0Performing Lab:see noteML - [facility] LB PROF CHEM 8 (BAS METB) Reviewed date:01/01/2025 09:12:56 PM Interpretation: Performing Lab: Notes/Report: [facility] ,Oiohgy291466-281 mmol/LPotassium4.33.5-5.1 mmol/QPptmgqqf06251-080 mmol/LCarbon Krrpqow22.521.0-32.0 mmol/LAnion Gap8.2Emoyzkm56064-068 mg/dLBlood Urea Nitrogen 26.07.0-18.0 mg/dLCreatinine1.240.70-1.30 mg/dLEstimated GFR ( Nancy>60 >=60 mL/min/1.73m 2Estimated GFR (Non- Ame56>=60 mL/min/1.73m 2BUN Creatinine Ratio21.9Npzhnoe0.28.5-10.1 mg/dLPerforming Lab:see noteML - [facility] LBTroponin I High Sensitivity Reviewed date:01/01/2025 09:12:56 PM Interpretation: Performing Lab: Notes/Report: [facility] ,Troponin I High Sensitivity8.54.0-76.1 pg/mL CUT-OFF POINTS HAVE BEEN ESTABLISHED BASED ON THE FOURTH UNIVERSAL DEFINITION OF MYOCARDIAL INFARCTION. THE UPPER REFERENCE LIMIT (URL) OF TROPONIN, DEFINED THE 99TH PERCENTILE OF cTnI DISTRIBUTION IN A REFERENCE POPULATION, HAS BEEN CONFIRMED THE DECISION THRESHOLD FOR GA DIAGNOSIS. 99TH PERCENTILE = 76.2 PG/ML NOTE: HIGH-SENSITIVITY TROPONIN ASSAY IS NOT INTENDED TO BE USED IN ISOLATION BUT SHOULD BE INTERPRETED IN CONJUNCTION WITH OTHER DIAGNOSTIC AND CLINICAL INFORMATION. Performing Lab:see note - [facility] LBTSH W/ REFLEX FT4 Reviewed date:01/01/2025 09:12:56 PM Interpretation: Performing Lab: Notes/Report: [facility] ,TSH W/ REFLEX FT42.5250.358-3.740 uIU/mLPerforming Lab:see note - [facility] LBECG 12 lead Reviewed date:01/01/2025 09:12:56 PM Interpretation: Performing Lab: Notes/Report: Source Facility: [place] [address] Electrocardiograph Report Signed Patient: TRAVIS COBURN MR#: [id number] : 1940 Acct:[id number] Age/Sex: 84 / M ADM Date: 12/31/24 Loc: ER Attending Dr: Ordering Physician: Josue Mayes M.D. Date of Service: 12/31/24 Procedure(s): ECG 12 lead Accession Number(s): [id number] cc: [facility] Test Date: 2024-12-31 Pat Name: TRAVIS COBURN Department: Room: - Gender: Male Manager Air: : 1940 Requested By: [id number] Order Number: [id number] Reading MD: DEONDRE RM M.D. Measurements Intervals [place] Rate: 77 P: 73 MS: 168 QRS: -47 QRSD: 102 T: 62 QT: 364 QTc: 396 Interpretive Statements 1100 Sinus rhythm 1470 with occasional supraventricular premature complexes 2630 Left anterior fascicular block 9150 abnormal ECG No previous ECG available for comparison Electronically Signed On 01-01-2025 19:57:48 EDT by DEONDRE RM M.D. Dictated By: DEONDRE RM Signed By: 01/01/251957 DD/ 55 TD/TT: Telephone Plant Power Operator:LESLIE AUTO DIFF Reviewed date:06/27/2025 01:09:40 PM Interpretation: Performing Lab: Notes/Report: [facility] ,White Blood Count11.54.0-11.0 10 3/uLRed Blood Count4.304.70-6.10 10 6/uL Lfwftfmsbq88.714.0-18.0 g/wJUuotflctzd56.042.0-54.0 %Mean Corpuscular Tcgykj03.3 80.0-94.0 fLMean Corpuscular Kiwcseqynq86.925.9-34.0 pgMean Corpuscular HGB Conc 33.429.9-35.2 g/dLRed Cell Distribution Width13.411.0-15.0 %Platelet Hagnj575 150-450 10 3/uLMean Platelet Xeqgxg12.99.5-13.5 fLNeutrophils Percent Auto76.8 43.0-75.0 %Lymphocytes Percent Auto12.320.5-60.0 %Monocytes Percent Auto8.01.7- 12.0 %Eosinophils Percent Auto2.20.9-7.0 %Basophils Percent Auto0.30.2-2.0 % Immature Granulocytes Pct Auto0.40.0-0.5 %Neutrophils Absolute Auto8.91.4-6.5 10 3/uLLymphocytes Absolute Auto1.41.2-3.8 10 3/uLMonocytes Absolute Auto0.90.3-0.8 10 3/uLEosinophils Absolute Auto0.30.0-0.7 10 3/uLBasophils Absolute Auto0.00.0- 0.1 10 3/uLImmature Granulocytes Abs Auto0.050.00-0.03 10 3/uLPerforming Lab:see noteML - [facility] LBFREE T3 Reviewed date:06/27/2025 03:37:29 PM Interpretation: Performing Lab: Notes/Report: [facility] ,Free T32.082.18-3.98 pg/mLPerforming Lab:see noteML - [facility] LB LIPID PROFILE Reviewed date:06/27/2025 03:37:29 PM Interpretation: Performing Lab: Notes/Report: [facility] ,Kuidwhtyvaglp33<=150 mg/wHHgqjyftubqx881<=200 mg/dLHDL Qacgvuxetni5635-90 mg/dL > or =60 mg/dl - LOW CARDIOVASCULAR RISK <40 mg/dl - HIGH CARDIOVASCULAR RISK LDL Cholesterol Nmgfrajzvu82.2 <100 mg/dl OPTIMAL 100-129 mg/dl NEAR OR ABOVE OPTIMAL 130-159 mg/dl BORDERLINE HIGH 160-189 mg/dl HIGH >190 mg/dl VERY HIGH VLDL LQITCOIDOTV56.8Chol HDL Ratio3.0 3.3 - 4.4 LOW RISK 4.4 - 7.1 AVERAGE RISK 7.1 - 11.0 MODERATE RISK >11.0 HIGH RISK Performing Lab:see noteML - [facility] LBPSA SCREENING Reviewed date:06/27/2025 01:09:40 PM Interpretation: Performing Lab: Notes/Report: [facility] ,Prostate Specific Antigen Scrn2.30<=4.00 ng/mLPerforming Lab:see noteML - [facility] LBT4 Reviewed date:06/27/2025 03:37:29 PM Interpretation: Performing Lab: Notes/Report: [facility] ,T4 Thyroxine5.004.50-12.10 ug/dLPerforming Lab:see noteML - [facility] LBTSH Reviewed date:06/27/2025 03:37:29 PM Interpretation: Performing Lab: Notes/Report: [facility] ,Thyroid Stimulating Hormone2.3190.358-3.740 uIU/mLPerforming Lab:see note - [facility] LBURIC ACID SERUM Reviewed date:06/27/2025 03:37:29 PM Interpretation: Performing Lab: Notes/Report: [facility] ,Uric Acid5.43.5-7.2 mg/dLPerforming Lab:see noteML - [facility] LB INFLUENZA A AND B AG (Not yet reviewed by provider) Interpretation: Performing Lab: Notes/Report: [facility] ,Influenza Virus A AntigenNegative Negative for Flu A protein antigen. Infection due to Flu A cannot be ruled out. Flu A antigen in the sample may be below the detection limit of the test. Influenza Virus B AntigenNegative Negative for Flu B protein antigen. Infection due to Flu B cannot be ruled out. Flu B antigen in the sample may be below the detection limit of the test. Performing Lab:see noteML - [facility] KZOMXB-CiU-3 Ag* (Not yet reviewed by provider) Interpretation: Performing Lab: Notes/Report: [facility] ,SARS-CoV-2 AgPOSITIVENEGATIVE This test has not been FDA cleared or approved, but has been authorized by the FDA under an Emergency Use Authorization (EUA) for use by authorized laboratories certified under CLIA that meet the requirements to perform moderate or high complexity testing. This test has been authorized only for the detection of proteins from SARS-CoV-2, not for any other viruses or pathogens. The emergency use of this test is authorized for the duration of the declaration that circumstances exist justifying the authorization of emergency use of in vitro diagnostic tests for detection and/or diagnosis of Covid-19 under section 564(b)(1) of the Act, 21 U.S.C. 360bbb-3(b)(1), unless the declaration is terminated or authorization is revoked sooner. Performing Lab:see noteML - [facility] LBPROF 14(COMP METB) Reviewed date:06/27/2025 03:37:29 PM Interpretation: Performing Lab: Notes/Report: [facility] ,Zekmcu996838-394 mmol/LPotassium3.83.5-5.1 mmol/TXfatesug09478-275 mmol/LCarbon Mxmnwfh38.721.0-32.0 mmol/LAnion Gap4.6Olsnlxa76940-767 mg/dLBlood Urea Nitrogen 18.07.0-18.0 mg/dLCreatinine1.180.70-1.30 mg/dLEstimated GFR ( Nancy>60 >=60 mL/min/1.73m 2Estimated GFR (Non- Ame59>=60 mL/min/1.73m 2BUN Creatinine Ratio15.3Kwchevv7.38.5-10.1 mg/dLBilirubin Total0.70.2-1.0 mg/dL Aspartate Amino Cmztvamewod0218-27 U/LAlanine Ftwssufyldczwtko7697-37 U/L Alkaline Jciefstviri6636-900 U/LTotal Protein6.86.4-8.2 g/dLAlbumin Level3.43.4- 5.0 g/dLGlobulin3.4Albumin Globulin Ratio1.0Performing Lab:see noteML - [facility] LBGLYCOHEMOGLOBIN A1C Reviewed date:06/27/2025 01:09:40 PM Interpretation: Performing Lab: Notes/Report: [facility] ,Glycohemoglobin A1C6.74.5-6.2 % ADA RECOMMENDED LIMIT 4.0 - 6.0 ADA THERAPEUTIC TARGET < 7.0 ACTION SUGGESTED > 7.0 Estimated Average Ehsynug413Dkjyeegzbj Lab:see noteML - [facility] LB MR IAC wo/w con Reviewed date:09/26/2024 09:03:26 AM Interpretation: Performing Lab: Notes/Report: Source Facility: [place] [address] Magnetic Resonance Report Signed Patient: TRAVIS COBURN MR#: [id number] : 1940 Acct:[id number] Age/Sex: 83 / M ADM Date: 09/25/24 Loc: LAB Attending Dr: Loreta Barragan M.D. Ordering Physician: Loreta Barragan M.D. Date of Service: 09/25/24 Procedure(s): IAC wo/w con Accession Number(s): [id number] cc: Roman David M.D.; Loreta Barragan M.D. [facility] [place] [address] Patient Name: TRAVIS COBURN MRN: [id number] date: 1940 Sex: M Assigned Patient Location: LAB Current Patient Location: LAB Accession/Order Number: [id number] Exam Date: 09/25/2024 19:50 Report Date: 09/25/2024 [...] Leo Cummings M.D.09/25/2024 7:59 PM Dictation Location: [place] [address] Electronically authenticated by: [id number] Y Date: 09/25/2024 19:59 Dictated By: Leo Cummings M.D. Signed By: 09/25/242001 DD/ 58 TD/TT: Telephone Plant Power Operator:Troponin I High Sensitivity Reviewed date:07/21/2024 10:23:30 AM Interpretation: Performing Lab: Notes/Report: [facility] ,Troponin I High Sensitivity9.24.0-76.1 pg/mL CUT-OFF POINTS HAVE BEEN ESTABLISHED BASED ON THE FOURTH UNIVERSAL DEFINITION OF MYOCARDIAL INFARCTION. THE UPPER REFERENCE LIMIT (URL) OF TROPONIN, DEFINED THE 99TH PERCENTILE OF cTnI DISTRIBUTION IN A REFERENCE POPULATION, HAS BEEN CONFIRMED THE DECISION THRESHOLD FOR GA DIAGNOSIS. 99TH PERCENTILE = 76.2 PG/ML NOTE: HIGH-SENSITIVITY TROPONIN ASSAY IS NOT INTENDED TO BE USED IN ISOLATION BUT SHOULD BE INTERPRETED IN CONJUNCTION WITH OTHER DIAGNOSTIC AND CLINICAL INFORMATION. Performing Lab:see noteML - [facility] LBTSH Reviewed date:07/21/2024 10:23:30 AM Interpretation: Performing Lab: Notes/Report: [facility] ,Thyroid Stimulating Hormone2.0750.358-3.740 uIU/mLPerforming Lab:see noteML - [facility] LBFREE T4 Reviewed date:07/21/2024 10:23:30 AM Interpretation: Performing Lab: Notes/Report: [facility] ,Free T40.770.76-1.46 ng/dLPerforming Lab:see noteML - [facility] LB UA DIP NONAUTO WO MICRO (04476) - IN OFFICE Reviewed date:12/09/2024 09:17:26 PM Interpretation: Performing Lab: Notes/Report: COLORyellowCLARITYclearGLUCOSEnegBILIRUBINnegKETONEnegSPECIFIC GRAVITY1.025BLOOD ehkbrQA4VAYPIEBxriftgxLYIESGQVWCJYyxlSNFTOVEnzpQIPVVHAPO ESTERASEnegUA DIP NONAUTO WO MICRO (85256) - IN OFFICE Reviewed date:08/09/2024 10:11:05 AM Interpretation: Performing Lab: Notes/Report: COLORyellowCLARITYcloudyGLUCOSEnegBILIRUBINnegKETONEnegSPECIFIC GRAVITY1.010 LCZUKiugOR8LWOTFIRinnGSVKSNFDQBYPmuaWKIRNTMcdaPIJMOFSYK ESTERASEpos Reason For Referral No Information Medications [...] days10/04/2024 ActiveClindamycin Phosphate 1 %1 application Externally bid4ActiveCPAP -use as directedActiveCoreg 6.25 MG1 tablet with [...] DX E11.9; Duration: 90 daysActiveOneTouch Delica Plus Nbztol13L -Use 1 lancet to poke finger once daily DX E11.9; Duration: 90 daysActiveIrbesartan 300 MGTAKE 1 TABLET BY MOUTH EVERY DAY; Duration: 90Active Ibuprofen 600 MGTAKE 1 TABLET BY MOUTH EVERY 6 HOURS NEEDED FOR MODERATE PAIN FOR 10 DAYS Oral; Duration: 10 daysActiveMethotrexate Sodium 2.5 MGas directed Orally 3 once weeklyActive Immunizations Vaccine Route Administration Date Status Comme nts Flu, Fluad (52262) 65 yrs and older, single-dose syringe (2177-1489) IM Intramuscular 05/30/2024 Administered Social History Tobacco Use: Social History Observation Description Date Details (start date - stop date) Former Smoker NA - NA Tobacco Use/Smoking Question Answer Notes Patient is a former smoker Alcohol Screen (Audit-C) Question Answer Notes Did you have a drink containing alcohol in the p ast year? No Wwwedz5IeijheprwtgmniIbllbbmxIFAGN-I (Standard) Question Answer Notes Did you have a drink containing alcohol in the p ast year? No Oppuzg5QmejrondafetsiNqwoexqj Problems Problem Type SNOMED Code ICD Code Onset Dates Problem Status W/U Status Risk Notes Problem Helicobacter pylori (28615351) H elicobacter pylori [H. pylori] as the cause of diseases classified elsewhere (B96.81) ActiveconfirmedProblemOverweight (800952295)Overweight (E66.3)Activeconfirmed ProblemMigraine without aura, not refractory (100993080)Other migraine, not intractable, without status migrainosus (G43.809)ActiveconfirmedProblem Hereditary disorder of nervous system (244595740)Hereditary and idiopathic neuropathy, unspecified (G60.9)ActiveconfirmedProblemPinguecula (05966229) Pinguecula, unspecified eye (H11.159)ActiveconfirmedProblemSenile corneal changes (00050867)Arcus senilis, unspecified eye (H18.419)ActiveconfirmedProblem Sensorineural hearing loss of bilateral ears (disorder) (915050013)Sensorineural hearing loss, bilateral (H90.3)ActiveconfirmedProblemIrritable bowel syndrome with diarrhea (949445456)Irritable bowel syndrome with diarrhea (K58.0)Active confirmedProblemPolymyalgia rheumatica (47394286)Polymyalgia rheumatica (M35.3) ActiveconfirmedProblemPalpitations (66830356)Palpitations (R00.2)Activeconfirmed ProblemOther fracture of first lumbar vertebra, initial encounter for open fracture (S32.018B)ActiveconfirmedProblemHypertension (22081856)Hypertension (I10)ActiveconfirmedProblemAnxiety (51256605)Anxiety (F41.9)Activeconfirmed ProblemSleep apnea (37764188)Sleep apnea (G47.30)ActiveconfirmedProblem Osteoarthritis of knee (902456201)Osteoarthritis of knee (M17.9)Activeconfirmed ProblemHiatal hernia (73675878)Hiatal hernia (K44.9)ActiveconfirmedProblem Psoriatic arthritis (903916333)Psoriatic arthritis (L40.50)Activeconfirmed ProblemVitamin D deficiency (65843917)Vitamin D deficiency (E55.9)Active confirmedProblemHypertriglyceridemia (695836244)Hypertriglyceridemia (E78.1) ActiveconfirmedProblemDiabetes mellitus type 2 (disorder) (80812640)DM2 (diabetes mellitus, type 2) (E11.9)ActiveconfirmedProblemColitis (86023474) Colitis (K52.9)ActiveconfirmedProblemSerous otitis media (72105707)Serous otitis media (H65.90)ActiveconfirmedProblemAcute bronchitis (44593616)Acute bronchitis (J20.9)ActiveconfirmedProblemHyperuricemia (03840356)Hyperuricemia (E79.0)Active confirmedProblemAtopic dermatitis (56089224)Atopic dermatitis (L20.9)Active confirmedProblemIrritable bowel syndrome (16734750)Irritable bowel syndrome (K58.9)ActiveconfirmedProblemCellulitis (325695657)Cellulitis (L03.90)Active confirmedProblemDiabetes mellitus type 2 (65704658)Diabetes mellitus type 2, uncomplicated (E11.9)ActiveconfirmedProblemCataract (710465722)Cataract (H26.9) ActiveconfirmedProblemSinus arrhythmia (61210165)Sinus arrhythmia (I49.8)Active confirmedProblemVitreous degeneration (52861887)Vitreous degeneration (H43.819) ActiveconfirmedProblemContracture of palmar fascia (750909645)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)ActiveconfirmedProblemVenous stasis (60388269)Venous stasis (I87.8)ActiveconfirmedProblemUnsteady gait (18490425)Unsteady gait (R26.81) ActiveconfirmedProblemAcute renal failure syndrome (40171994)Acute kidney failure (N17.9)ActiveconfirmedProblemVitamin B>12< deficiency anaemia (59145522) Other vitamin B12 deficiency anemia (D51.8)ActiveconfirmedProblemNuclear senile cataract (746048755)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)ActiveconfirmedProblem Primary basal cell carcinoma of right lower limb (disorder) (4020102215435316) Basal cell carcinoma of right lower leg (C44.712)ActiveconfirmedProblemType II diabetes mellitus without complication (998039944)Diabetes mellitus type 2, diet-controlled (E11.9)ActiveconfirmedProblemCarpal tunnel syndrome (06113090) Carpal tunnel syndrome, bilateral upper limbs (G56.03)ActiveconfirmedProblem Arthralgia of temporomandibular joint (98718623)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)Active confirmedProblemDisorder of acoustic nerve (18554159)Acoustic neuroma syndrome, 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)ActiveconfirmedProblemVestibular schwannoma (772272208)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)ActiveconfirmedProblemDisease caused by Severe acute respiratory syndrome coronavirus 2 (disorder) (851676742)COVID-19 virus infection (U07.1)Activeconfirmed Vital Signs Temperature 97.9 degrees Fahrenheit 06/26/2025 Blood pressure dahtzrtif48 mm Hg06/26/20259632Bhopnj97 in06/26/2025lood pressure wvspkaty630 mm Hg06/26/20252324Ruorjz016.0 lbs108/27/2024BMI35.14 kg/m206/26/2025 Encounters Encounter Location Date Provider Diagnosis [facility] [address] [place] [place] [address] 02/28/2025 Ruben Hoy Cellulitis L03.90 [facility] [address] [place] [address] 06/27/2025 Ruben Hoy [facility] [place] [address] 08/05/2024[facility] [place] [address]/[facility] [place] [address]/09/2024[facility] [place] [place] [address]/Doug HoyHypertension L87UkgcuslR[facility] Hospital[address] [place] [address]/09/2024 Ruben HoyDiabetes mellitus type 2, uncomplicated E11.9B[facility] [place] [address]/Doug HoyFrequency R35.0[facility] [facility] [place] [address] 07/19/2024Doug HoyHypertension I10 ; Diabetes mellitus type 2, uncomplicated E11.9 and Dyspnea R06.00[facility] [place] [address]/Doug HoyDysuria R30.0 ; Atopic dermatitis L20.9 and Acute UTI N39.0[facility] [place] [address]/Doug HoyCellulitis L03.90[facility] [address] [place] [id number]/Doug HoyAcute non- recurrent sinusitis, unspecified location J01.90 ; Hypertension I10 [...] R35.0)10/04/2024Dysuria (ICD-10 - R30.0)10/04/2024topic dermatitis (ICD-10 - L20.9)5Cellulitis (ICD-10 - L03.90)5Acute non-recurrent sinusitis, unspecified location (ICD-10 - J01.90)Rest and drink more liquids, especially water. You may use a humidifier or vaporizer to help keep the drainage moist. Lilx-had-cqtzapn Nasal Saline may help the stuffy and runny nose. Use Ibuprofen and or Tylenol as needed for fever, chills, body aches or pain. Children 5 years old should not be given wufs-wht-tjmwxcs cough and cold medications such as guaifenesin and dextromethorphan. If you're over age 5, you may try fyhz-oae-ldaukuk cold medications such as guaifenesin and dextromethorphan, [...] UA (URINALYSIS, COMPLETE) 06/21/2023 HEMOGLOBIN A1C (GLYCO) 06/26/2025 HEMOGLOBIN A1C (GLYCO) 10/24/2022 HEMOGLOBIN A1C (GLYCO) 05/30/2024 INSULIN, TOTAL 10/24/2022 LIPID PANEL (CHOL/TRIG/HDL/LDL) 10/25/19 23 LIPID PANEL (CHOL/TRIG/HDL/LDL) 05/30/20 24 LIPID PANEL (CHOL/TRIG/HDL/LDL) 06/26/20 25 CBC WITH DIFF (EXP 05/2025) 05/30/2024 CBC WITH DIFF (EXP 05/2025) 10/24/2022 PSA, PROSTATE-SPECIFIC ANTIGEN PSA, PROSTATE-SPECIFIC ANTIGEN URIC ACID 06/26/2025 URIC ACID 10/24/2022 URIC ACID 05/30/2024 Urinalysis Microscopic 06/21/2023 URINE CULTURE 12/12/2022 URINALYSIS 12/12/2022 PSA, TOTAL 05/30/2024 High Sensitivity Troponin 07/19/2024 CT Sinus w/o Contrast 09/21/2023 CULTURE URINE 06/21/2023 INFLUENZA A AND B AG 06/29/2025 THYROID PROFILE WITH TSH 07/19/2024 URINE MICROSCOPIC ONLY 12/12/2022 VC VENOUS REFLUX SANDY LMT 05/30/2024 THYROID PANEL (T4/TSH/FREE T3) 3 THYROID PANEL (T4/TSH/FREE T3) 4 THYROID PANEL (T4/TSH/FREE T3) 4 THYROID PANEL (T4/TSH/FREE T3) 5 PSA, SCREENING 06/26/2025 SARS-CoV-2 Ag* 06/29/2025 CMP (COMP MET DOUGLAS) w/eGFR CKD-EPI 2024 CBC WITH DIFF 06/26/2025 Future Test Test Name Order Date THYROID PANEL (T4/TSH/FREE T3) 5 Insurance Providers Payer Name Payer Address Payer Phone Subscriber Number Group Number Insured Name Patient Relationship to Insured Coverage Start Date Coverage End Date [place] [address] [place] [place] [address] [id number] Asia Coburn - patient is the [id number] 2006[facility] [address]MENT[address] [address] [place], [place] [id number], CharlesSelf - patient is the [id number] 2018 Medications Administered Medication Instructions Date of Administration Dosage Notes Cyanocobalamin mL1 bpEbqfidtouanyuz17/18/20251 mL Medical (General) History Medical History History [...] Surgery Date(Month/Year) Heart Cath ColonoscopyRotator Cuff Surgery- LeftKyphoplasty- 04/05/23 Dr. Macielast Mass excisionHemorrhoidectomyKnee Arthroscopy- LeftHospitalization History Reason Date(Month/Year) compression fracture L1 03/01
--- OUTSIDE RECORDS SUMMARY | 2025-06-29 18:53 | XMS_ITS | Encounter Summary ---
Author Organization [facility] Address [address] [place] [address] Care Team Providers Care Pantograph Setter Name Role Phone Roman David MD Primary Care Provider [phone] Encounter Details DateTypeDepartmentCare Team (Latest Contact Info)Coolfdlajgz64/17/2025amboo flowsheet [facility] [address] [place] [address] Tariq Perez DO [address] [place] [address] Social History Tobacco UseTypesPacks/DayYears UsedDateSmoking Tobacco: FormerCigarettesPassive Smoke Exposure: NeverSmokeless Tobacco: NeverAlcohol UseStandard Drinks/Week CommentsNever0 (1 standard drink = 0.6 oz pure alcohol)caffeine 1-2 cups/daySex and Gender InformationValueDate RecordedSex Assigned at BirthNot on fileLegal ZdeNdzi3109/21/2022 6:46 PM EDTGender IdentityNot on fileSexual OrientationNot on filedocumented as of this encounter Plan of Treatment DateTypeDepartmentCare Team (Latest Contact Info)Aeqfhlzspyj43/14/2026 1:00 PM ESTOffice Visit [facility] [address] [place] [address] Yudy Montes MD [address] [place] [address] 07/01/2026 10:30 AM ESTOffice Visit [facility] [address] [place] [address] Tariq Perez, DO [address] [place] [address] documented as of this encounter Visit Diagnoses Not on filedocumented in this encounter Care Teams Team MemberRelationshipSpecialtyStart DateEnd Date Roman David MD [address] [place] [address] PCP - GeneralFamily Medicine10/20/23documented as of this encounter
--- OUTSIDE RECORDS SUMMARY | 2025-06-29 18:53 | XMS_ITS | Patient Health Record ---
Author Organization [facility] Address [address] [place] [address] Support Name Relationship Address Phone Travis Coburn Guarantor Unknown [phone] Reason For Referral No Information Problems Problem Type SNOMED Code ICD Code Onset Dates Problem Status W/U Status Risk Notes Problem Type II diabetes mellitus withou t complication (213613120) Diabetes (E11.9) ActiveconfirmedProblemCompression fracture of L1 vertebra, initial encounter (S32.010A)ActiveconfirmedProblemMechanical low back pain (940725719)Mechanical low back pain (M54.59)Activeconfirmed Plan Of Treatment No Information Insurance Providers Payer Name Payer Address Payer Phone Subscriber Number Group Number Insured Name Patient Relationship to Insured Coverage Start Date Coverage [place] [address] [place] [address] [id number] Asia Coburn - patient is the insured
--- OUTSIDE RECORDS SUMMARY | 2025-06-29 18:53 | XMS_ITS | Clinical Summary ---
Author Organization [facility] Address [address] [facility] [place] [address] Care Team Providers Care Risk Management Consultant Name Role Phone Roman David MD Primary Care Provider [phone] Allergies Active AllergyReactionsCriticalityNoted DateCommentsBee QyuuzcCjyodms34/15/2024 Other reaction(s): Unknown Cat NelzdmRcjpkwu72/15/2024 Other reaction(s): Unknown ZxaebdicfxwbEhtuBit54/14/6078VsqcwigryylXajjglhylvcPskq75/16/2021enicillins 07/20/2023Sulfa Zohoeaozfbu71/13/2024 Medications MedicationSigDispense QuantityRefillsLast FilledStart DateEnd DateStatus acetaminophen [...] tablet Take 10 mg by mouth at aialkkz1309/21/2023ctive irbesartan (Avapro) 300 MG tablet Take 300 [...] ProblemNoted DateDiagnosed DateUnilateral vestibular weakness, right03/08/2024 Balance biqsemru15/28/2024coustic pckrubk1201/23/2024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12/27/2023bnormal ultrasound of wnsbkbl9512/21/2023rthritis of right knee12/21/2023enign prostatic hyperplasia with urinary wrcpyaycayu81/13/2024arpal tunnel wpcttrih49/13/2024 Gastroesophageal reflux iaijxgx52/13/2024Degenerative joint disease of wrist 12/21/2023Localized primary osteoarthritis of wrist12/21/2023Notalgia ojxaamhmxeap72/13/2024Otitis externa in other diseases classified elsewhere, unspecified ear12/21/2023Otitis geohyxe8012/21/20237568Yrbbkivlizz77/13/2024soriasis cyopzkad69/13/2024Sensorineural hearing loss (SNHL) of both ears12/21/2023 Superficial basal cell rlslhydyl31/13/2024Superficial mycosis, unspecified 12/21/2023Urinary ompepjo7012/21/2023Excessive use of nonsteroidal anti- inflammatory drug (NSAID)10/12/2023hronic kidney disease, stage Angina vkcxihix32/15/2024enign essential cwkssivcuwmi02/15/2024radycardia 08/24/2023oronary artery lhxlhdu3208/24/20232264Kcfizihxf95/15/7162Evuukke67/15/2024 Slafowvblurydb53/15/2024Short of breath on jyeumcmr27/15/2024bnormal findings on imaging of biliary tract08/16/20230051Pmveywn89/07/2024egeneration of cervical intervertebral disc08/16/2023iabetes igpkixqy96/07/2024Epigastric pain 08/16/2023Hiatal wanlmv1108/16/2023HTN (hypertension)08/16/2023 Bmxbfmhzgwyyrrhcjudv44/07/2024Kidney ishsoh9908/16/2023Increased frequency of lfxaxkfjy45/07/2024Loss of cxypnrkz94/07/2024Low back pain08/16/2023Neoplasm of uncertain behavior of skin of lower gsvvulymd51/07/0728Bfkpakqxhy27/07/2024 Meanqchq86/07/3343Qumttpassjk64/07/5725Pgidoqziw76/07/2024Sleep apnea08/16/2023 Sinus uoxdxomfeb25/07/2024Steatosis of liver08/16/2023Vitamin B 12 deficiency 08/16/2023athological fracture of vertebra due to xzvtaddtnexo88/27/2023ge- related nuclear cataract of both eyes01/30/2023Type 2 diabetes mellitus without complication, with long-term current use of wvekimf1501/30/2023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 degeneration of both eyes01/30/2023ry eyes 01/30/2023lepharitis of upper and lower eyelids of both eyes01/30/2023Long term 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05/27/2022soriasis with sqqjpvldite17/18/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 05/21/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 rheumatica ([facility])05/21/20227827Ntuqqsjfcosih09/12/2022 Resolved Problems ProblemNoted DateDiagnosed DateResolved DateFormer cigarette ktbdag7208/16/2023 12/21/2023History of Helicobacter pylori pwjjtbjgk18History of renal ruojsqv14MigraineNausea and vomiting Vitamin D vscypllcfs97Weight loss Encounters DateTypeDepartmentCare OhqiCokkqjjsbgu30/17/2025 11:00 AM ESTOffice Visit [facility] [address] [place] [address] Tariq Perez DO 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 degeneration of both eyes (Primary Dx); Age-related nuclear cataract of both eyes; Type 2 diabetes mellitus without complication, with long-term current use of insulin ([facility]); Dry eyes; Blepharitis of upper and lower eyelids of both eyes, unspecified type06/25/2025 Bamboo flowsheet [facility] [address] [place] [address] Tariq Perez DO 06/25/2025Travelfrom Last [...] InformationValueDate RecordedSex Assigned at BirthNot on fileLegal QakIrbt2609/21/2022 6:46 PM EDTGender Identity Not on fileSexual OrientationNot on file Last Filed Vital Signs Vital SignReadingTime TakenCommentsBlood Urtjgvgo834/76001/23/2024 9:54 AM EDT Pulse--Temperature--Respiratory Rate--Oxygen Saturation--Inhaled Oxygen Concentration--Dprglm777 kg (244 lb)07/26/2024 8:54 AM IMORtzuzo834.2 cm (5' 7 ) 07/26/2024 8:54 AM ESTBody Mass Index38.22007/26/2024 8:54 AM EST Plan of Treatment DateTypeDepartmentCare Team (Latest Contact Info)Qrsvofrfodl00/14/2026 1:00 PM ESTOffice Visit [facility] [address] [place] [address] Yudy Montes MD [address] [place] [address] 07/01/2026 10:30 AM ESTOffice Visit [facility] [address] [place] [address] Tariq Perez DO [address] [place] [address] Health MaintenanceDue DateLast DoneCommentsCOVID-19 Vaccine (2024- season)5107/20/2023, 11/17/2021, 05/20/2021, Additional history exists Influenza Vaccine (#1)5107/30/2023, 04/18/2024, 04/17/2024, Additional history existsPneumococcal Vaccine: 65+ ZcibnObclbxqio49/01/2018, 04/09/2016, 07/10/2011 Procedures Procedure NamePriorityDate/TimeAssociated DiagnosisCommentsOCT, RETINA - OU - BOTH BCWRZxoktks94/17/2025 12:10 PM EST Early dry stage nonexudative [...] Result from Last [address] [place] [address] Care Teams Team MemberRelationshipSpecialtyStart DateEnd Roman David MD [address] [place] [address] PCP - GeneralFamily Medicine10/20/23
--- OUTSIDE RECORDS SUMMARY | 2025-06-29 18:53 | XMS_ITS | Clinical Summary ---
Author Organization [facility] Address [address] [place] [address], [address] [place] [address] Care Team Providers Care Facetor Name Role Phone Roman David MD Primary Care Provider [phone] Allergies Active AllergyReactionsCriticalityNoted DateCommentsPenicillinsAnaphylaxisHigh 03/31/2023 Medications MedicationSigDispense QuantityRefillsLast FilledStart DateEnd DateStatus vitamin B-12 (CYANOCOBALAMIN) 1000 MCG tablet Take 1 tablet by mouth dailyActive Calcium Carb-Cholecalciferol (CALCIUM 500+D PO) Take 1 capsule by mouth dailyActive furosemide (LASIX) 20 MG tablet Take 1 tablet by mouth Twice a Week As needed Monday and MondayActive pantoprazole (PROTONIX) 40 MG tablet Take 1 tablet by mouth dailyActive 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 (RHEUMATREX) 2.5 MG chemo tablet Take 5 tablets by mouth once a week mondaysActive amitriptyline (ELAVIL) 50 MG tablet Take 1 tablet by mouth nightly Take 1 - 2 tablets by mouth every nightActive glimepiride (AMARYL) 4 MG tablet Take 0.5 tablets by mouth every morning (before breakfast)Active irbesartan-hydroCHLOROthiazide (AVALIDE) 300-12.5 MG per tablet Take 1 tablet by mouth dailyActive predniSONE (DELTASONE) 2.5 MG tablet Take 1 tablet by mouth dailyActive tiZANidine (ZANAFLEX) 4 MG tablet Take 1 tablet by mouth nightly as neededActive melatonin 5 MG TBDP disintegrating tablet Take 1 tablet by mouth nightlyActive folic acid (FOLVITE) 1 MG tablet Take 1 tablet by mouth dailyActive aspirin 81 MG EC tablet Take 1 tablet by mouth daily Takes only 2 days a weekActive ibuprofen (ADVIL;MOTRIN) 200 MG tablet Take 3 tablets by mouth every 6 hours as needed for PainActive oxyCODONE-acetaminophen (PERCOCET) 2.5-325 MG per tablet Take 1 tablet by mouth every 6 hours as needed for Pain.Active rosuvastatin (CRESTOR) 5 MG tablet Take 1 tablet by mouth Twice a WeekActive Active Problems ProblemNoted DateDiagnosed DateAge-related osteoporosis with current pathological fracture of vertebra with delayed cviahxk4804/05/2023ge-related osteoporosis with current pathological fracture of yoewxnqf12/27/2023 Family History Medical HistoryRelationNameCommentsCancerFatherHeart DiseaseFatherHigh Blood PressureFatherDepressionMotherHigh Blood PressureMotherObesityMotherRelationName StatusCommentsFatherMother Social History Tobacco UseTypesPacks/DayYears UsedDateSmoking Tobacco: FormerCigarettes Smokeless Tobacco: Never Tobacco Cessation:Counseling Given: Not Answered Alcohol UseStandard Drinks/WeekCommentsNever0 (1 standard drink = 0.6 oz pure alcohol)Sex and Gender InformationValueDate RecordedSex Assigned at BirthNot on fileLegal TspJssu7008/19/2012 10:59 AM ESTGender IdentityNot on fileSexual OrientationNot on file Last Filed Vital Signs Vital SignReadingTime TakenCommentsBlood Cncvwhwb485/63004/05/2023 8:50 AM EDT Lfvgz029204/05/2023 6:17 AM QHATxvkceilplr24.6 ??C (97.8 ??F)04/05/2023 7:35 AM EDTRespiratory Xiea735704/05/2023 7:55 AM EDTOxygen Vpnnoluqpb92%04/05/2023 8:50 AM EDTInhaled Oxygen Concentration--Etlhln246.7 kg (233 lb)04/05/2023 6:17 AM ZYZDqvfax648.3 cm (5' 9 )04/05/2023 6:17 AM EDTBody Mass Index34.41004/05/2023 6:17 AM EDT Plan of Treatment Health MaintenanceDue DateLast ZrzjEfmeebiwOptduc51/26/1951Depression Screen 4DTaP/Tdap/Td vaccine (1 - Tdap)1Pneumococcal 50+ years Vaccine (1 of 1 - PCV)11/03/1991Shingles vaccine (1 of 2)11/03/1991Respiratory Syncytial Virus (RSV) or age 60 yrs+ (1 - 1-dose 75+ series)2016 Annual Wellness Visit (Medicare)06/05/2023Flu vaccine (#1)/, 04/23/2020, 04/22/2015, Additional history existsCOVID-19 Vaccine ( season)/05/2022, 05/20/2021, 11/17/2020, Additional history exists Hepatitis A vaccineAged OutNo longer eligible based on patient's age to complete this topicHepatitis B vaccineAged OutNo longer eligible based on patient's age to complete this topicHib vaccineAged OutNo longer eligible based on patient's age to complete this topicMeningococcal (ACWY) vaccineAged OutNo longer eligible based on patient's age to complete this topicMeningococcal B vaccineAged OutNo longer eligible based on patient's age to complete this topicPolio vaccineAged OutNo longer eligible based on patient's age to complete this topic Medical Devices ImplantedTypeAreaManufacturerDevice IdentifierShelf Expiration DateModel / Serial / LotKyphon Davion Bone Cemet Implanted:Qty: 1 on 04/05/2023 by Nicho Peters MD at [facility] N/A: VertebraeMEDTRONIC_CR09// / [id number]:Ref # [id number] Insurance Advance Directives * Full Code (Latest Code Status on File) Date ActivatedDate InactivatedComments04/05/2023 6:10 AM04/05/2023 11:12 AM Care Teams Team MemberRelationshipSpecialtyStart DateEnd Date Roman David MD [address] [place] [address] PCP - GeneralFamily Medicine03/30/23
--- OUTSIDE RECORDS SUMMARY | 2025-06-29 18:53 | XMS_ITS | Clinical Summary ---
Author Organization [facility] Address [address] [place] [address] Phone Care Team Providers Care Laundry Housekeeping Aide Name Role Phone Roman David MD Primary Care Provider [phone] Allergies Active AllergyReactionsCriticalityNoted DateCommentsBee PollenUnknownLow 08/24/2023at TqlsdjXxrkyodEbc57/15/4726PbdlczpioezvDbwwWqf57/14/2025Penicillins FxfrzlvijcrKuqi82/12/2022 Other reaction(s): Unknown Medications MedicationSigDispense QuantityRefillsLast FilledStart [...] lifestyle choices on overall cardiovascular health. Vestibular swvyjkgdrc62/30/2024Sensorineural hearing loss (SNHL) of right ear with unrestricted hearing of left ear02/06/2024Former cigarette rmripi5611/27/2023 Benign essential rwsxyecrxmop16/15/2024 Assessment & Plan (08/20/2024 3:46 PM EST): optimal in office Optimal at time of stress test Assessment & Plan (07/23/2024 1:25 PM EST): Optimal in office Coronary artery schdxrp0308/24/2023 Assessment & Plan (08/20/2024 3:45 PM EST): September 2017 cardiac cath RCA 50% No left system disease LVEF 45-50% Jul 2024 MPI: no ischemia, no infarct. EF 57% Assessment & Plan (07/23/2024 1:25 PM EST): September 2017 cardiac cath RCA 50% No left system disease LVEF 45-50% December 2021 MPI no ischemia, no infarct. LVEF 53%. Ubtsrisdp20/15/7243Ezahcwe28/15/2024 Assessment & Plan (07/23/2024 1:27 PM EST): Presents today as an add-on for progressive worsening fatigability and change in exercise capacity and functional tolerance Akyuvwvijjojcs18/15/2024 Assessment & Plan (08/20/2024 3:46 PM EST): Low intensity statin On highest tolerated dose Assessment & Plan (07/23/2024 1:26 PM EST): Low intensity statin On highest tolerated dose Short of breath on /15/2024 Assessment & Plan (08/20/2024 3:39 PM EST): Jul 2024: add-on due to concerns of progressive worsening dyspnea on exertion. Favorable cardiac testing including MPI, TTE and holter. Assessment & Plan (07/23/2024 1:26 PM EST): Presents today as an add-on due to concerns of progressive worsening dyspnea on exertion Sleep apnea08/16/2023 Assessment & Plan (07/23/2024 1:27 PM EST): Remains compliant with CPAP Polymyalgia ljtwhjiexz49/12/2022 Resolved Problems ProblemNoted DateDiagnosed DateResolved UuikIppyfcafahgqqq65/14/202505/23/2025 Assessment & Plan (08/20/2024 3:45 PM EST): September 2017 LVEF 45 to 50% TTE September 2017 LVEF 45-50% cardiac cath December 2021 LVEF 53% MPI 2024 TTE LVEF 50-55% No WMA AV p7:m4 Assessment & Plan (07/23/2024 1:27 PM EST): September 2017 LVEF 45 to 50% TTE September 2017 LVEF 45-50% cardiac cath December 2021 LVEF 53% MPI Angina suwvrxuy54Short of breath on eprzwhhi39/15/2024 07/23/20240566Nrjekvqexwd39 Immunizations ImmunizationAdministration DatesNext DueFlu vaccine, trivalent, preservative free, HIGH-DOSE, age 65y+ (Fluzone)04/23/2020Influenza, Seasonal, Quadrivalent, Ukfoqupvye65/17/2023Influenza, Airpqybsrye68/14/2015,05/22/2014Influenza, seasonal, tgkxcubxbb06/10/2024,04/17/2024,05/12/2021Influenza, trivalent, tqeczthbmf92/21/2024Moderna COVID-19 vaccine, bivalent, blue cap/cunningham label *Check age/dose*10/28/2020,1Pfizer COVID-19 vaccine, 12 years and older, (30mcg/0.3mL) (Comirnaty)4Pfizer Purple Cap EYKY-QlL-664/20/2021 Pneumococcal conjugate vaccine, 13-valent (PREVNAR 13)04/09/2016Pneumococcal polysaccharide vaccine, 23-valent, age 2 years and older (PNEUMOVAX 23) 07/10/2017,07/10/2011RSV, 60 Years And Older (AREXVY)05/20/2024 Family History Medical HistoryRelationNameCommentsHeart failureFatherHypertensionMotherRelation NameStatusCommentsFatherMother Social History Tobacco UseTypesPacks/DayYears UsedDateSmoking Tobacco: FormerCigarettesPassive Smoke Exposure: NeverSmokeless Tobacco: Never Tobacco Cessation:Counseling Given: Not Answered Alcohol UseStandard Drinks/WeekCommentsNever0 (1 standard drink = 0.6 oz pure alcohol)PHQ-2AnswerDate RecordedPatient Health Questionnaire-2 Tuqnn575 Sex and Gender InformationValueDate RecordedSex Assigned at BirthNot on file Legal ZsdCvlj58/26/2022 3:28 PM ESTGender IdentityNot on fileSexual Orientation Not on file Last Filed Vital Signs Vital SignReadingTime TakenCommentsBlood Flmxmdsf764/8211/29/2024 10:51 AM EDT Qcqtr269911/29/2024 10:25 AM IGUMowemnoiaxz88.4 ??C (97.6 ??F)02/06/2024 1:38 PM EDTRespiratory Rate--Oxygen Saturation--Inhaled Oxygen Concentration--Oadbzc865 kg (243 lb)11/29/2024 10:25 AM JCREqduxu372.3 cm (5' 9 )11/29/2024 10:25 AM EDT Body Mass Index35.8811/29/2024 10:25 AM EDT Plan of Treatment DateTypeDepartmentCare Team (Latest Contact Info)Riqeommhuod72/24/2026 1:30 PM ESTOffice Visit at [facility] [address] [address] Ly Villanueva MD [address] [facility] [address] [place] [address] Health MaintenanceDue DateLast DoneCommentsLipid Panel1941TSH Level 2CKD: Urine Protein Lvnmzfyqo24/26/1961Hepatitis A Vaccines (1 of 2 - Risk 2-dose series)1DTaP/Tdap/Td Vaccines (1 - Tdap)11/03/1963Zoster Vaccines (1 of 2)11/03/1991Hepatitis B Vaccines (1 of 3 - Risk 3-dose series) 2001Medicare Annual Wellness Visit (AWV)/3COVID-19 Vaccine ( - season)/05/2024, 11/17/2021, 10/28/2020, Additional history existsInfluenza Vaccine (#1)/, 04/18/2024, 04/17/2024, Additional history existsPneumococcal HtyaushZwojdaqdj87/, 07/10/2017, 04/09/2016, Additional history existsRSV High Risk: (Elderly (60+) or Population)Jqvrhjudi84/11/2024HIB VaccinesAged OutNo longer eligible based on patient's age to complete this topicHPV VaccinesAged OutNo longer eligible based on patient's age to complete this topicIPV VaccinesAged OutNo longer eligible based on patient's age to complete this topicMeningococcal VaccineAged OutNo longer eligible based on patient's age to complete this topic Rotavirus VaccinesAged OutNo longer eligible based on patient's age to complete this topic Insurance Care Teams Team MemberRelationshipSpecialtyStart DateEnd Roman David MD [address] [place] [address] [facility] - General12/08/21
--- OUTSIDE RECORDS SUMMARY | 2025-06-29 18:53 | XMS_ITS | Clinical Summary ---
Author Organization [facility] Address [address] [place] [address] Care Team Providers Care Roller Stitcher Name Role Phone Roman David MD Primary Care Provider [phone] Allergies Active AllergyReactionsCriticalityNoted DateCommentsBee Xwktff0208/24/2023 Other reaction(s): Unknown Cat Rbrftc2608/24/2023 Other reaction(s): Unknown GvdjuxxpwbtfJoanAjz75/14/5810Wmrdt71/12/2022 Other reaction(s): Unknown XgoclkkvblpHgtsxqftqceMoux50/16/5768GntirendxmtZzgpyvpzdwrBtas82/12/2022 Other reaction(s): Unknown Sulfa (Sulfonamide Antibiotics)Ioofbwo8708/16/2023 Medications MedicationSigDispense QuantityRefillsLast FilledStart DateEnd DateStatus rosuvastatin [...] same time.Active leucovorin (Wellcovorin) 5 mg tablet Indications:[facility] 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Take one tab PO daily 90 tablet ctive leucovorin (Wellcovorin) 5 mg tablet Indications:[facility] 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Take one tab PO daily 90 [...] affected area once a day, 30 day sbnliw735Active fluticasone (Flonase) 50 mcg/actuation nasal spray 1 [...] and scalp then rinse daily, 30 day pkuwtu885Active triamcinolone (Kenalog) 0.1 % cream APPLY TO THE AFFECTED AREA topically TWICE DAILY02/26/2025tive predniSONE (Deltasone) 2.5 mg tablet Indications:Psoriatic arthropathy (CMS/HCC)TAKE 2 TABLETS BY MOUTH IN THE MORNING 180 tablet 5Active Active Problems ProblemNoted DateDiagnosed DateCompression fracture of L1 lumbar vertebra 09/10/20243453Zcyoiamvtnmmti23/14/2025Unilateral vestibular weakness, right 03/08/2024alance /28/2024Sensorineural hearing loss (SNHL) of right ear with unrestricted hearing of left ear02/06/2024coustic ratnpic1901/23/2024 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 12/27/2023rthritis of right knee12/21/2023arpal tunnel /13/2024 Localized primary osteoarthritis of wrist12/21/2023Notalgia paresthetica 12/21/2023Otitis externa in other diseases classified elsewhere, unspecified ear 12/21/2023Sensorineural hearing loss (SNHL) of both ears12/21/2023Superficial basal cell bbhdujgfa95/13/2024Superficial mycosis, oywavzmowfh39/13/2024Stage 3a chronic kidney fwgyksi1010/12/2023Excessive use of nonsteroidal anti-inflammatory drug (NSAID)10/12/2023ngina vdmacwwi10/enign essential unujzbmafrvp52radycardiaoronary artery dqjaeqx03izzinessFatigue08/24/2023 10/11/2023Short of breath on mifnncby15bnormal findings on imaging of biliary tractnxietyenign prostatic hyperplasia without lower urinary tract dvywhysp67 BMI 35.0-35.9,adultegeneration of cervical intervertebral disciabetes pztbykxs40Epigastric pain Former jutazn81Hiatal ppzjau4308/16/2023 08/16/2023History of Helicobacter pylori qbdybfcyu68History of renal htpphxx67HTN (hypertension) Gzssjcemkzoouuyrjmvz86/07/202402/07/2024Increased frequency of urination Kidney lbjpql01Loss of ypxzlqiz07/07/2024 08/16/2023Low back painMigraineNausea and tlbkjywy55Neoplasm of uncertain behavior of skin of lower tjpfkoajw16NeuropathyNocturia08/16/2023 08/16/20233947Ybaxctiaopq27soriasisSinus ypoagdhjtu41Sleep apneaSteatosis of liver Urinary dzuqbnt87Vitamin B 12 deficiency Vitamin D ytauvljeft83Weight loss ge-related nuclear cataract of both eyes01/30/2023 08/16/2023lepharitis of upper and lower eyelids of both eyes01/30/2023 08/16/2023ry eyes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 degeneration of both eyesType 2 diabetes mellitus without complication, with long-term current use of jgkvebr95 Psoriatic byfrjymyowu14/18/2022Long term 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05/27/2022 Vagcpfacsbwwz61/12/8738Rsmfnviwzyhmgqh69/12/2022MR (polymyalgia rheumatica) 05/21/2022 Encounters DateTypeDepartmentCare AjfgRcrbxlsclxh55/08/2025Refill [facility] Rheumatology [address] [place] [address] Luis Daniel Brunner MD Psoriatic arthropathy ([facility])04/02/2025Telephone [facility] Rheumatology [address] [place] [address] Aleja Neal MA from Last 3 Months Immunizations ImmunizationAdministration DatesNext DueInfluenza, High Dose Seasonal, Preservative Free04/23/2020Influenza, Seasonal, Quadrivalent, Adjuvanted 07/26/2022Influenza, Avpzdzyvoef66/15/2020,04/22/2015,05/22/2014Influenza, injectable, hwtyfeejzeiu37/14/2015,05/22/2014Influenza, seasonal, injectable 04/18/2024,04/17/2024,05/12/2021Influenza, trivalent, vrgtpslwxe26/21/2024 Moderna SARS-CoV-2 Cevaaopeufa81/21/2021,1Pfizer SARS-CoV-2 Vaccination 11/17/2021,11/17/2020,10/29/2020,1Pneumococcal Conjugate PCV 13 04/09/2016Pneumococcal Polysaccharide DWJ193907/10/2017,07/10/2011RSV, Adult, Kiscorofjfx61/11/2024 Social History Tobacco UseTypesPacks/DayYears UsedDateSmoking Tobacco: FormerCigarettes Smokeless Tobacco: Never Tobacco Cessation:Counseling Given: Not Answered PHQ-2AnswerDate RecordedPatient Health Questionnaire-2 Ivaeg463UT Safety & EnvironmentAnswerDate RecordedFear of Current or Ex-PartnerNot on file 08/31/2023Emotionally AbusedNot on file08/31/2023hysically AbusedNot on file 08/31/2023Sexually AbusedNot on file4Physically or Sexually AbusedNot on file08/31/2023Sex and Gender InformationValueDate RecordedSex Assigned at CefoxEbqx82/09/2025 10:48 AM EDTLegal RynFbzk2101/05/2022 9:47 PM EDTGender UkspltomJhdx34/09/2025 10:48 AM EDTSexual OrientationHeterosexual or Straight 03/18/2025 10:48 AM EDT Last Filed Vital Signs Vital SignReadingTime TakenCommentsBlood Wjwkqsgu844/78003/18/2025 10:50 AM EDT Euuun2870/09/2025 10:50 AM EDTTemperature--Respiratory Hicu6462 2:28 PM EDTOxygen Ckvxacuyez70%09/10/2024 10:56 AM ESTInhaled Oxygen Concentration-- Muwxsa664 kg (256 lb)03/18/2025 10:50 AM RQYAxmhyq951.3 cm (5' 9 )03/18/2025 10:50 AM EDTBody Mass Index37.8003/18/2025 10:50 AM EDT Plan of Treatment DateTypeDepartmentCare Team (Latest Contact Info)Ezijakanstq91/09/2026 11:00 AM EDTFollow-Up [facility] [address] [place] [address] Luis Daniel Brunner MD [address] [place] [address] Health MaintenanceDue DateLast DoneCommentsMedicare Annual Wellness (AWV) 2Diabetes: Retinopathy Orssdgfkd44/26/1952Diabetes: Urine Protein Qzqkmkyfp16/26/1961Adult Jtbtnkc8711/03/1963Zoster Vaccines (1 of 2)11/03/1991 Diabetes: Hemoglobin A1C503/OVID-19 Vaccine ( season)/05/2024, 11/17/2021, 05/20/2021, Additional history exists Influenza Vaccine (#1)/, 04/18/2024, 04/17/2024, Additional history existsFall Risk Yjjbrtkbl48Depression Screening /03/2025Pneumococcal Vaccine: 50+ OtvsuRzrlvoflh98/01/2018, 04/09/2016, 07/10/2011HIB VaccinesAged OutNo longer eligible based [...] complete this topic Procedures Procedure NamePriorityDate/TimeAssociated DiagnosisCommentsHEMOGLOBIN K6UFdehuaq 09/10/2024 12:38 PM EST Other specified diabetes mellitus with other specified complication, unspecified whether longterm insulin use ([facility]) from Last 3 Months or Most Recently Relevant to Health Maintenance Results * (ABNORMAL) Hemoglobin A1c (09/10/2024 12:38 PM EST)ComponentValueRef RangeTest MethodAnalysis TimePerformed AtPathologist SignatureHemoglobin A1C6.9(H)4.0 - 6.0 %09/10/2024 3:11 PM [facility] ([facility])Estimated Average Glucose 151mg/dL09/10/2024 3:11 PM [facility] ([facility])Specimen (Source) Anatomical Location / LateralityCollection Method / VolumeCollection Time Received TimeBloodVenous blood specimen / UnknownVenipuncture / Unknown 09/10/2024 12:38 PM EST09/10/2024 12:45 PM EST Narrative Authorizing ProviderResult TypeResult StatusLuis Daniel Brunner MDLAB BLOOD ORDERABLESFinal ResultPerforming OrganizationAddressCity/State/ZIP CodePhone Number [facility] ([facility]) [address] [place] [address] from Last 3 Months or Most Recently Relevant to Health [place] [address] Care Teams Team MemberRelationshipSpecialtyStart DateEnd Roman David MD [address] [address] [place] [id number] [facility] - General08/24/22
--- OUTSIDE RECORDS SUMMARY | 2025-06-29 18:53 | XMS_ITS | Encounter Summary ---
Author Organization [facility] Address [address] [place] [address] Care Team Providers Care Daily Sales Audit Clerk Name Role Phone Roman David MD Primary Care Provider [phone] Encounter Details DateTypeDepartmentCare Team (Latest Contact Info)Klykgwfqqrc30/17/2025Travel Social History Tobacco UseTypesPacks/DayYears UsedDateSmoking Tobacco: FormerCigarettesPassive Smoke Exposure: NeverSmokeless Tobacco: NeverAlcohol UseStandard Drinks/Week CommentsNever0 (1 standard drink = 0.6 oz pure alcohol)caffeine 1-2 cups/daySex and Gender InformationValueDate RecordedSex Assigned at BirthNot on fileLegal CjfWkye3509/21/2022 6:46 PM EDTGender IdentityNot on fileSexual OrientationNot on filedocumented as of this encounter Plan of Treatment DateTypeDepartmentCare Team (Latest Contact Info)Qksnltaoruj34/14/2026 1:00 PM ESTOffice Visit [facility] [address] [place] [address] Yudy Montes MD [address] [place] [address] 07/01/2026 10:30 AM ESTOffice Visit [facility] [address] [place] [address] Tariq Perez DO [address] [place] [address] documented as of this encounter Visit Diagnoses Not on filedocumented in this encounter Care Teams Team MemberRelationshipSpecialtyStart DateEnd Date Roman David MD [address] [place] [address] PCP - GeneralFamily Medicine10/20/23documented as of this encounter
[2025-06-29] MEDS: ACETAMINOPHEN 500 MG TABLET 1000 MG PO (19:02)
[2025-06-29] MEDS: BENZONATATE 100 MG CAPSULE 200 MG PO (19:02)
== END 2025-06-29 19:20 | disposition home or self-care (01) ==
PROVIDERS: Emergency Provider Emergency Medicine; PCP Family Medicine
DX: U07.1 COVID-19 (principal); J06.9 Acute upper respiratory infection, unspecified; L40.50 Arthropathic psoriasis, unspecified; Z79.899 Other long term (current) drug therapy
CPT/HCPCS: 87804; 87811; 99283; 99284